=== PATIENT | female | born 1955 | race Caucasian/White ===

== ENCOUNTER 2020-09-06 14:03 | Outpatient (REF) | payer MEDICARE, BC, SELFPAY ==
--- NOTE | 2020-09-06 | MM_ITS ---
EXAMINATION: MM SCREENING DIGITAL BREAST TOMOSYNTHESIS, BILATERAL CLINICAL INFORMATION: Screening. Asymptomatic. The lifetime risk of breast cancer based on the Tyrer-Cuzick Model is 6%. COMPARISON: Mammography: 03/10/2019, 12/17/2016 TECHNIQUE: Digital breast tomosynthesis is performed in both the craniocaudal and mediolateral oblique views along with computer-aided detection (CAD). Synthesized 2D images are generated from the tomosynthesis. FINDINGS: There are scattered areas of fibroglandular density (ACR BI-RADS breast composition Category b). There are no significant masses, abnormal calcifications, or other abnormalities. No developing density. No significant changes. MM/MM tomosynthesis screening BI IMPRESSION: No mammographic evidence of malignancy. ASSESSMENT: BI-RADS 1: Negative RECOMMENDATION: Routine annual mammography screening. This patient's information was entered into a reminder system with a target due date for their next mammogram.
== END 2020-09-06 14:04 | disposition home or self-care (01) ==
LOC: HO.MAMMO 14:03
PROVIDERS: PCP Internal Medicine; Visit Provider Internal Medicine
DX: Z12.31 Encounter for screening mammogram for malignant neoplasm of breast (principal)
CPT/HCPCS: 77063; 77067

== ENCOUNTER 2020-11-06 13:55 | Outpatient (REF) | payer MEDICARE, BC, SELFPAY ==
--- NOTE | 2020-11-06 13:58 | CT_ITS ---
EXAMINATION: CT CHEST SCREENING CLINICAL INFORMATION: Nicotine dependence. COMPARISON: CT chest screening 11/10/2019 TECHNIQUE: Multidetector volumetric CT imaging of the chest is performed without contrast using low dose technique. Additional 2D coronal and sagittal reformatted images and axial 3D maximum intensity projection (MIP) images are generated on the CT workstation. This CT examination was performed using dose optimization techniques as appropriate, variously including the following: *Automated exposure control *Adjustment of mA and/or kV according to patient size (this includes techniques or standardized protocols for targeted exams where dose is matched to indication/reason for exam; i.e. extremities or head) *Use of iterative reconstruction technique DLP: 61 mGy-cm FINDINGS: LUNGS: The lungs are well expanded and clear of acute pneumonic process. There are 2 new ill-defined nodules measuring 6 mm and 7 mm in the lingula on axial image 58/10. No additional nodules seen. MEDIASTINUM: Thyroid lobes are symmetrical. The central trachea and the bronchi widely patent. The heart size and the great vessels are normal caliber. There are coronary artery catheterizations present. No pericardial effusion seen. PLEURA: There is no pleural effusion. No pleural mass or thickening. AXILLA: No lymphadenopathy. UPPER ABDOMEN: Visualized liver, spleen, pancreas and bilateral adrenal glands are unremarkable. No radiopaque gallstones seen. OSSEOUS STRUCTURES: There is mild spondylosis mid and lower dorsal spine. No lytic or sclerotic process seen. CT/CT lung screening IMPRESSION: New 2 nodules in the lingula are worrisome. ASSESSMENT: Lung-RADS category 3: Probably Benign RECOMMENDATION: Six-month low-dose CT chest.
== END 2020-11-06 13:56 | disposition home or self-care (01) ==
LOC: HO.CT 13:55
PROVIDERS: Visit Provider Physician Assistant Medical
DX: Z12.2 Encounter for screening for malignant neoplasm of respiratory organs (principal); Z87.891 Personal history of nicotine dependence
CPT/HCPCS: 71271

== ENCOUNTER → 2020-11-13 14:34 | Outpatient (BNVA) | payer MEDICARE, BC, SELFPAY | PROVIDERS: PCP Internal Medicine; Visit Provider Internal Medicine ==

== ENCOUNTER 2020-11-13 15:26 | Outpatient (REF) | payer MEDICARE, BC, SELFPAY ==
--- NOTE | 2020-11-13 17:19 | PFT_ITS ---
INDICATION: COPD. SPIROMETRY: FEV1 to FVC is 68% with an FEV1 of 2.03 L which is 80% predicted, an FVC of 2.97 L which is 88% predicted. There was a significant response to bronchodilators noted to note the [id number] is down to 40% predicted consistent with small airways disease. Maximum voluntary ventilation 91% predicted. LUNG VOLUMES: Total lung capacity 100% predicted with residual volume 170% predicted and expiratory reserve volume of 46% predicted. The diffusion capacity is 44% predicted. The comparisons, none. INTERPRETATION: There is an obstructive ventilatory defect consistent with mild chronic obstructive pulmonary disease. The patient did have a significant response to bronchodilators noted and also had significant small airways disease. Lung volumes within normal limits, although a decrease in the expiratory reserve volume likely from elevated BMI. There is a moderately to severe diffusion impairment likely from emphysematous changes and/or the parenchymal lung conditions and/or pulmonary vascular conditions should also be considered. Clinical correlation is warranted. MD MARISELA Brown/MODL / [id number]
== END 2020-11-13 15:27 | disposition home or self-care (01) ==
LOC: HO.RESP 15:26
PROVIDERS: PCP Internal Medicine; Visit Provider Internal Medicine
DX: J44.9 Chronic obstructive pulmonary disease, unspecified (principal)
CPT/HCPCS: 94060; 94727; 94729; 99212

== ENCOUNTER → 2020-12-12 15:37 | Outpatient (BNVA) | payer MEDICARE, BC, SELFPAY | PROVIDERS: PCP Internal Medicine; Visit Provider Internal Medicine | DX: J44.9 Chronic obstructive pulmonary disease, unspecified (principal); R06.00 Dyspnea, unspecified; I77.9 Disorder of arteries and arterioles, unspecified; R91.8 Other nonspecific abnormal finding of lung field | CPT/HCPCS: 99212 ==

== ENCOUNTER 2020-12-20 14:28 | Outpatient (REF) | payer MEDICARE, BC, SELFPAY ==
--- NOTE | ~2020-12-20 | US_ITS ---
EXAMINATION: ULTRASOUND LOWER EXTREMITY DUPLEX ARTERIAL EXAMINATION, BILATERAL CLINICAL INFORMATION: Peripheral vascular disease. COMPARISON: Bilateral lower extremities arterial ultrasound imaging of 06/22/2020 TECHNIQUE: Grayscale, color and spectral Doppler imaging was obtained of the deep arterial system of both lower extremities. FINDINGS: Right lower extremity: The right common femoral artery and proximal superficial femoral artery are patent and demonstrate normal velocities and multiphasic waveforms. Patient right superficial femoral artery stent which demonstrates multiphasic waveforms. There is slightly increased elevation of the proximal anastomosis with velocities of 202 cm/s. The right popliteal artery and posterior tibial artery demonstrate normal velocities and multiphasic waveforms consistent with patency. The right peroneal artery is patent but demonstrate monophasic waveforms suggesting peripheral vascular disease. Left lower extremity: The left common femoral artery and superficial femoral artery proximally are patent and demonstrate normal velocities and multiphasic waveforms. Left superficial femoral artery stent is patent although there is slightly elevated velocities within the distal aspect of the stent suggesting a possible stenosis. The left popliteal artery and posterior tibial artery are patent although may demonstrate monophasic waveforms consistent with peripheral vascular disease. The left peroneal artery is also patent but demonstrate monophasic waveforms. Of note a cardiac arrhythmia was noted intermittently during the examination. Before the examination could be completed, the patient suffered a hypoxic episode and was transported to the emergency room. US/US arterial duplex LE BI IMPRESSION: 1. Patent deep arterial system of the right lower extremity, including the superficial femoral artery stent. A mild stenosis within the proximal stent anastomosis is possible. 2. Patent deep arterial system of the left lower extremity, including the superficial femoral artery stent. Slightly elevated velocities in the distal aspect of the stent suggests possible stenosis. There are monophasic waveforms distal to the stent which further suggests an in-stent stenosis. 3. Cardiac arrhythmia was noted during the examination.
== END 2020-12-20 14:29 | disposition home or self-care (01) ==
LOC: HO.US 14:28
PROVIDERS: Visit Provider Surgery Vascular Surgery
DX: I73.9 Peripheral vascular disease, unspecified (principal)
CPT/HCPCS: 93925

== ENCOUNTER 2020-12-20 16:42 | Inpatient (IN) | payer MEDICARE, BC, SELFPAY ==
--- NOTE | ~2020-12-20 | CT_ITS ---
EXAMINATION: CT ANGIOGRAM OF THE CHEST WITH AND WITHOUT CONTRAST (CT PULMONARY ANGIOGRAM FOR PE) CLINICAL INFORMATION: Reason for Exam SOB COMPARISON: CT chest 11/06/2020, 11/10/2019 TECHNIQUE: Prior to contrast administration, noncontrast localization images were obtained. Subsequently, multidetector volumetric imaging was performed from the thoracic inlet to below the diaphragms following the administration of 54 mL Omnipaque 350 intravenous contrast. No contrast reaction reported Sagittal, coronal, and MIP oblique sagittal reformatted images were obtained on the CT workstation, uploaded to PACS, and reviewed. This CT examination was performed using dose optimization techniques as appropriate, variously including the following: *Automated exposure control *Adjustment of mA and/or kV according to patient size (this includes techniques or standardized protocols for targeted exams where dose is matched to indication/reason for exam; i.e. extremities or head) *Use of iterative reconstruction technique Total exam dose-length product 504 mGy-cm FINDINGS: QUALITY OF STUDY/CONTRAST BOLUS: Satisfactory. PULMONARY ARTERIES: No central or segmental pulmonary emboli. THORACIC AORTA: No aneurysm or dissection. There are scattered vascular wall calcifications of aorta. LUNG: No acute airways disease. No interstitial lung disease. The central bronchial airways are open. Linear scar/atelectasis in the lingula. Lung nodules. On the CAT scan of 11/06/2020 2 new nodules were noted in the left upper lobe. These measured 6 mm and 7 mm. On today's study only one of the 2 lesions is now present. This is less distinct on today's exam. This measures 7 x 3 mm on axial image 192/569 series 7. This however is a flat linear density sagittal image 24/97 series 9. (Rather than a rounded masslike density). There are no new lung nodules. PLEURA: There are moderate volume bilateral pleural effusions layering dependently. MEDIASTINUM: Normal heart size. No pericardial effusion. No hilar or mediastinal lymphadenopathy. No evidence of septal bowing or right heart strain. CHEST WALL/AXILLA: No axillary or internal mammary lymphadenopathy. OSSEOUS STRUCTURES: No acute or suspicious osseous abnormality. There is multilevel degenerative spondylosis of the spine. UPPER ABDOMEN: Status post Cholecystectomy.. No abnormality visualized portions of the solid organs in the upper abdomen. No reflux of contrast into the hepatic veins to suggest elevated right heart pressures. CT/CT angio chest PE protocol IMPRESSION: 1. No evidence of pulmonary embolism. 2. Bilateral pleural effusions. 3. Regression of previously noted nodules in left upper lobe since prior CAT scan 11/06/2010. VTE: negative
--- NOTE | ~2020-12-20 | XR_ITS ---
EXAMINATION: XR CHEST CLINICAL INFORMATION: SOB COMPARISON: CT dated 11/10/2019 TECHNIQUE: Frontal view of the chest was obtained. FINDINGS: Cardiac leads overlie the chest. Lungs are hyperexpanded. There is central bronchial wall thickening bilaterally. No consolidation, pneumothorax, or pleural effusion. Cardiac and mediastinal contours are normal. No acute osseous findings. XR/XR chest 1V IMPRESSION: Bronchial wall thickening can be seen with a small airways process such as asthma or atypical/viral infection.
--- NOTE | 2020-12-20 08:19 | ECG_ITS ---
Test Reason : REPEAT Blood Pressure : / mmHG Vent. Rate : 083 BPM Atrial Rate : 083 BPM P-R Int : 168 ms QRS Dur : 086 ms QT Int : 430 ms P-R-T Axes : 032 015 135 degrees QTc Int : 505 ms Normal sinus rhythm Possible Inferior infarct (cited on or before 20-DEC-2020) ST & T wave abnormality, consider lateral ischemia Abnormal ECG When compared with ECG of 20-DEC-2020 19:36, T wave inversion less evident in Lateral leads Referred By: Leonid Abdullahi Electronically Signed By:MADDIE ARIAS MD
[2020-12-20 16:47] VITALS: BP 225/131; PULSE 126; RESP 16; TEMP 36.7; O2SAT 86; BMI 31.4
[2020-12-20 16:54] VITALS: BP 188/141; PULSE 114; RESP 16; O2SAT 93
--- NOTE | 2020-12-20 16:55 | ECG_ITS ---
Test Reason : SHORTNESS OF BREATH Blood Pressure : / mmHG Vent. Rate : 071 BPM Atrial Rate : 071 BPM P-R Int : 152 ms QRS Dur : 090 ms QT Int : 424 ms P-R-T Axes : 032 009 148 degrees QTc Int : 460 ms Normal sinus rhythm Possible Inferior infarct , age undetermined ST & T wave abnormality, consider lateral ischemia Abnormal ECG When compared with ECG of 30-OCT-2018 13:55, Premature atrial complexes are no longer Present Borderline criteria for Inferior infarct are now Present Referred By: Leonid Abdullahi Electronically Signed By:MADDIE ARIAS MD
[2020-12-20 17:24] LABS: MANUAL DIFF FLAG NO
[2020-12-20 17:29] LABS: PCO2 VBG 44 mmHg; PO2 VBG 69 mmHg; pH VBG 7.22 (7.32-7.43)
[2020-12-20 17:30] LABS: Base Excess VBG -8.9 mmol/L; HCO3 VBG 18 mmol/L
[2020-12-20 17:32] LABS: INTERNATIONAL NORM RATIO 1.1 (0.9-1.1); Prothrombin Time 13.4 SEC (10.8-13.0)
[2020-12-20 17:35] LABS: Basophils Absolute Auto 0.1 X10*3/uL (0.0-0.2); Basophils Percent Auto 1.2 % (0-2); D Dimer 364 NG/ML; Eosinophils Absolute Auto 0.1 X10*3/uL (0.0-0.4); Eosinophils Percent Auto 1.5 % (0-4); Hematocrit 37.4 % (37-47); Hemoglobin 11.4 g/dl (12.0-16.0); Imm Gran Abs Auto 0.01 X10*3/uL (0.00-0.03); Imm Gran Pct Auto 0.2 % (0.0-0.4); Lymphocytes Absolute Auto 1.8 X10*3/uL (1.2-4.9); Lymphocytes Percent Auto 30.6 % (20-40); Mean Corpuscular HGB Conc 30.5 g/dl (31.0-35.0); Mean Corpuscular Volume 85.4 fL (80-98); Mean Platelet Volume 9.8 fL (9.4-12.3); Monocytes Absolute Auto 0.4 X10*3/uL (0.1-1.2); Neutrophils Absolute Auto 3.6 X10*3/uL (2.0-8.3); Neutrophils Percent Auto 60.5 % (45-73); Platelet Count 278 X10*3/uL (160-400); Red Blood Count 4.38 X10*6/uL (4.20-5.50); Red Cell Distribution Width 14.8 % (11.0-16.0)
[2020-12-20 17:56] VITALS: BP 175/88; PULSE 79; RESP 15; O2SAT 97
[2020-12-20 17:58] LABS: Alanine Aminotransferase 12 U/L (0-31); Albumin Level 3.8 g/dL (3.5-5.0); Alkaline Phosphatase 110 U/L (39-117); Anion Gap 20 (12-20); Aspartate Amino Transferase 15 U/L (5-31); Bilirubin Total 0.7 mg/dL (0.0-1.0); Blood Urea Nitrogen 18 mg/dL (9-16); C Reactive Protein 0.61 mg/dL (< or = 0.50); Calcium 8.9 mg/dL (8.4-10.2); Carbon Dioxide 18 mmol/L (22-29); Chloride 105 mmol/L (96-108); Estimated Glomerular Filt Rate 48; Glucose Random 225 mg/dL (60-115); Lactate Dehydrogenase 224 U/L (122-220); Potassium 4.7 mmol/L (3.3-5.1); Sodium 138 mmol/L (135-145); Total Protein 6.5 g/dL (6.5-8.0)
[2020-12-20 18:11] LABS: Lactic Acid 6.1 mmol/L (0.5-2.0)
[2020-12-20 18:19] LABS: Ferritin 49 ng/mL (10-250); Procalcitonin 0.03 ng/mL
[2020-12-20] MEDS: Albuterol Sulfate 90 MCG 8 GM INHALER 4 PUFF INHALE (18:26)
[2020-12-20 18:27] VITALS: PULSE 74; O2SAT 97
[2020-12-20 18:47] LABS: Influenza A PCR NEGATIVE (Negative); Influenza B PCR NEGATIVE (Negative); Resp Syncy Virus RNA Qual PCR NEGATIVE (Negative); SARS COV2 PCR INHOUSE NEGATIVE (Negative)
[2020-12-20 18:58] VITALS: BP 151/86; PULSE 71; RESP 18
[2020-12-20 19:22] LABS: Reflex Lactate? Lactic Acid Added
[2020-12-20] MEDS: SODIUM CHLORIDE 999 ML IV (19:29)
[2020-12-20] MEDS: iohexoL 350 MG/ML 100 ML INFUS..BTL IV (20:25)
--- NOTE | 2020-12-20 21:12 | ED_ITS ---
HPI - SOB/Dyspnea General Chief Complaint: Dyspnea Stated Complaint: sob Time Seen by Provider: 12/20/20 16:49 Source: patient Mode of arrival: wheelchair History of Present Illness HPI Narrative: This is a 63-year-old female with history of chronic obstructive pulmonary disease has chronic dyspnea on exertion according to EMR, multiple sc lerosis, hypertension, acid reflux disease, stress incontinence, peripheral artery disease status post right SFA, TN status post stenting in 2019 and history of pulmonary nodules who presents from our Outpatient Radiology Department as a rapid response for shortness of breath. Apparently patient was having lower extremity arterial studies done on outpatient basis. She reports that she was laying down and this cars 3rd to become shortness of breath. She otherwise reports she has been using more of her inhalers at home but does not use any oxygen. MD elicited complaint: shortness of breath Pertinent past history: COPD Onset (ago): minute(s) Timing: constant Severity: severe Exacerbating factors: lying flat Relieving factors: nothing Known history of: COPD Associated symptoms: orthopnea Treatment prior to arrival: oxygen Related Data Home Medications Medication Instructions Recorded Confirmed dalfampridine 10 mg mg PO 10/03/20 10/06/20 tablet,extended release,12 hr interferon beta-1a 30 mcg/0.5 mL IM 10/03/20 10/06/20 intramuscular pen kit oxybutynin chloride 5 mg tablet 5 mg PO BID 10/03/20 10/06/20 paroxetine HCl 40 mg tablet 40 mg PO DAILY 10/03/20 10/06/20 Previous Rx's Medication Instructions Recorded metoprolol succinate 50 mg 50 mg PO DAILY #90 tab 08/31/20 tablet,extended release 24 hr aspirin 81 mg tablet,delayed 81 mg PO DAILY #90 tab 11/01/20 release omeprazole 20 mg capsule,delayed 20 mg PO QAM #30 cap 11/01/20 release budesonide-formoterol HFA 160 2 puff INHALATION BID 30 Days 11/13/20 mcg-4.5 mcg/actuation aerosol #10.2 g inhaler cilostazol 50 mg tablet 50 mg PO BID #180 tab 11/19/20 atorvastatin 80 mg tablet 80 mg PO DAILY #90 tab 11/22/20 Allergies Allergy/AdvReac Type Severity Reaction Status Date / Time codeine [Codeine] Allergy Mild vomiting Verified 12/12/20 15:59 Review of Systems Review of Systems: Constitutional: No Weight loss, No Fever, No Chills, No Night Sweats, No Fatigue, No Malaise ENT/Mouth: No Hearing loss, No Ear Pain, No Nasal Congestion, No Sinus Pain, No Hoarseness, No sore throat, No Rhinorrhea, No Swallowing Difficulty Eyes: No Eye Pain, No Swelling, No Redness, No Foreign Body, No Discharge, No Vision Changes Cardiovascular: No Chest Pain, + SOB, + Dyspnea on Exertion, No Edema, No Palpitations Respiratory: No Cough, No Sputum, + Wheezing Gastrointestinal: No Nausea, No Vomiting, No Diarrhea, No Constipation, No abdominal Pain, No Hematochezia, No Melena Genitourinary:No Dysuria, No Urinary Frequency, No Hematuria, No Urinary Incontinence, No Urgency, No Flank Pain, No Urinary Flow Changes, No Hesitancy Musculoskeletal: No joint pain, No Myalgias, No Joint Swelling Skin: No Skin Lesions, No rash Neuro: No Weakness, No Numbness, No Paresthesias, No Loss of Consciousness, No Dizziness, No Headache Psych: No Social Issues Heme/Lymph: No Bruising, No Bleeding,No Lymphadenopathy Endocrine: No Polyuria, No Polydipsia, No Temperature Intolerance Yes all other systems are reviewed and are negative [facility] Past Medical History Medical History (Updated 12/20/20 @ 22:00 by Leonid Abdullahi NP) COPD (chronic obstructive pulmonary disease) Dyspnea on effort Peripheral arterial occlusive disease Pulmonary nodules Surgical History History of orthopedic surgery Family History Family History Father No problems noted. Mother No problems noted. Sister Diabetes Brother Diabetes Social History Social History Alcohol intake: never Smoking Status: Former smoker Use of substances other than those prescribed or required for medical reasons: No Advance Directives: No Advance Directives Information Provided: Yes Physical Exam Vital Signs: Vital Signs: Last Vital Signs Temp 98.0 F 12/20/20 16:47 Pulse 71 12/20/20 18:58 Resp 18 12/20/20 18:58 BP 151/86 H 12/20/20 18:58 Pulse Ox 97 12/20/20 17:56 Body Mass Index 31.4 Reviewed Const: General: in distress moderate and respiratory Nutritional Appearance: average body habitus Orientation/consciousness: patient oriented x3 HENMT: Head: Yes normal to inspection Ears: hearing grossly normal bilaterally Eyes: General: appearance normal, both eyes and all related structures Visual Santos: normal visual santos by confrontation Neck: Neck: Yes normal visual inspection, No positive Brudzinski's sign, No positive Kernig's sign and No tender Thyroid: Thyroid normal Chest: Chest palpation & inspection: normal inspection of the chest Resp: Effort & Inspection: respiratory distress, tachypneic and no use of accessory muscles Auscultation: clear to auscultation bilaterally Cardio: Jugular venous distension: no JVD Rhythm: regular rhythm Heart sounds: S1 normal heart sound present and S2 normal heart sound present GI: Inspection: Yes normal to inspection Palpation (GI): Soft to palpation Percussion: Yes normal to percussion Auscultation: normal bowel sounds : General: Yes no CVA tenderness Back/Spine/Pelvis: Back: no CVA tenderness Skin: General skin exam: no rashes or lesions noted Neuro: General: patient oriented x3 Extrem: General: Yes normal to inspection NIH Stroke Scale Internal: Initial- Upon Arrival Level of Consciousness: Alert Level of Consciousness Questions: Answers both questions correctly Level of Consciousness Commands: Performs both tasks correctly Best Gaze: Normal Visual: No visual loss Facial Palsy: Normal Motor Arm (Right): No drift Motor Arm (Left): No drift Motor Leg (Right): No drift Motor Leg (Left): No drift Limb Ataxia: Absent Sensory: Normal Best Language: No aphasia Dysarthia: Normal Extinction and Inattention: No abnormality Score: 0 Course Course Course Narrative: Clinically in respiratory distress hypoxic upon arrival, dry appearing more consistent with her respiratory history/COPD. Will treat with nebs, gradual fluids and Solu-Medrol. Will check imaging including cardiac enzymes EKG and COVID-19. Reevaluation(s) Reevaluation #1: Clinically appearing much better her blood pressure improved significantly after initial neb and some fluids. She reports she feels better however when she does exert herself she feels short of breath. Her D-dimer is slightly elevated will get CT of the chest rule out PE. Initial troponin 17 will repeat at 3 hours. She does have significant lactic acidosis of 6.1 on the initial this is likely type B from the albuterol and not infection. Will consult cardiology p.r.n.. Anticipated plan for admission. Consultations Consultation #1: Cardiology Dr. Kraus Consultation #2: [id number] Hospitalist Case discussed with Dr. Weston prior to admission request BNP Aware I will heading out will put in Lasix if needed. MDM - SOB/Dyspnea Differential Diagnosis Differential diagnosis: Likely acute exacerbation of chronic obstructive airways disease, congestive heart failure (Flash pulmonary edema less likely), pneumoni a, asthma with exacerbation, pulmonary embolism and pleural effusion; Unlikely sleep apnea and anemia Medical Records Attestation: I reviewed the patient's medical records. Lab Data Attestation: I reviewed the patient's lab results. Result diagrams: 12/20/20 17:12 12/20/20 17:12 Labs: Lab Results 12/20/20 12/20/20 12/20/20 Range/Units 17:12 17:12 17:12 WBC 6.0 (4.8-10.8) X10*3/uL RBC 4.38 (4.20-5.50) X10*6/uL Hgb 11.4 L (12.0-16.0) g/dl Hct 37.4 (37-47) % MCV 85.4 (80-98) fL MCH 26.0 L (27.0-33.0) pg MCHC 30.5 L (31.0-35.0) g/dl RDW 14.8 (11.0-16.0) % Plt Count 278 (160-400) X10*3/uL MPV 9.8 (9.4-12.3) fL Immature Gran % (Auto) 0.2 (0.0-0.4) % Neut % (Auto) 60.5 (45-73) % Lymph % (Auto) 30.6 (20-40) % Logan % (Auto) 6.0 (2-11) % Eos % (Auto) 1.5 (0-4) % Baso % (Auto) 1.2 (0-2) % Lymph # (Auto) 1.8 (1.2-4.9) X10*3/uL Logan # (Auto) 0.4 (0.1-1.2) X10*3/uL Eos # (Auto) 0.1 (0.0-0.4) X10*3/uL Baso # (Auto) 0.1 (0.0-0.2) X10*3/uL Abs Immat Gran (auto) 0.01 (0.00-0.03) X10*3/uL Absolute Neuts (auto) 3.6 (2.0-8.3) X10*3/uL Absolute Nucleated RBC 0.000 (0.0-0.012) X10*3/uL Nucleated RBC % (auto) 0.0 (0.0-0.2) /100WBC PT 13.4 H (10.8-13.0) SEC INR 1.1 (0.9-1.1) APTT 31.0 (24.1-38.0) SEC D-Dimer 364 NG/ML VBG pH (7.32-7.43) VBG pCO2 mmHg VBG pO2 mmHg VBG HCO3 mmol/L VBG O2 Saturation % VBG Base Excess mmol/L Sodium 138 (135-145) mmol/L Potassium 4.7 (3.3-5.1) mmol/L Chloride 105 (96-108) mmol/L Carbon Dioxide 18 L (22-29) mmol/L Anion Gap 20 (12-20) BUN 18 H (9-16) mg/dL Creatinine 1.13 (0.5-1.4) mg/dL Estim Creat Clear Calc 54.0 Estimated GFR 48 Random Glucose 225 H (60-115) mg/dL Lactic Acid (0.5-2.0) mmol/L Lactic Acid Fup @ 2Hr (0.5-2.0) mmol/L Calcium 8.9 (8.4-10.2) mg/dL Ferritin 49 (10-250) ng/mL Total Bilirubin 0.7 (0.0-1.0) mg/dL AST 15 (5-31) U/L ALT 12 (0-31) U/L Alkaline Phosphatase 110 (39-117) U/L Lactate Dehydrogenase 224 H (122-220) U/L Troponin I High Sens (<3.5-17.0) ng/L C-Reactive Protein 0.61 H (< or = 0.50) mg/dL Total Protein 6.5 (6.5-8.0) g/dL Albumin 3.8 (3.5-5.0) g/dL Procalcitonin ng/mL Coronavirus (PCR) (Negative) Influenza Type A (PCR) (Negative) Influenza Type B (PCR) (Negative) RSV RNA Qual (PCR) (Negative) 12/20/20 12/20/20 12/20/20 Range/Units 17:12 17:12 17:12 WBC (4.8-10.8) X10*3/uL RBC (4.20-5.50) X10*6/uL Hgb (12.0-16.0) g/dl Hct (37-47) % MCV (80-98) fL MCH (27.0-33.0) pg MCHC (31.0-35.0) g/dl RDW (11.0-16.0) % Plt Count (160-400) X10*3/uL MPV (9.4-12.3) fL Immature Gran % (Auto) (0.0-0.4) % Neut % (Auto) (45-73) % Lymph % (Auto) (20-40) % Logan % (Auto) (2-11) % Eos % (Auto) (0-4) % Baso % (Auto) (0-2) % Lymph # (Auto) (1.2-4.9) X10*3/uL Logan # (Auto) (0.1-1.2) X10*3/uL Eos # (Auto) (0.0-0.4) X10*3/uL Baso # (Auto) (0.0-0.2) X10*3/uL Abs Immat Gran (auto) (0.00-0.03) X10*3/uL Absolute Neuts (auto) (2.0-8.3) X10*3/uL Absolute Nucleated RBC (0.0-0.012) X10*3/uL Nucleated RBC % (auto) (0.0-0.2) /100WBC PT (10.8-13.0) SEC INR (0.9-1.1) APTT (24.1-38.0) SEC D-Dimer NG/ML VBG pH (7.32-7.43) VBG pCO2 mmHg VBG pO2 mmHg VBG HCO3 mmol/L VBG O2 Saturation % VBG Base Excess mmol/L Sodium (135-145) mmol/L Potassium (3.3-5.1) mmol/L Chloride (96-108) mmol/L Carbon Dioxide (22-29) mmol/L Anion Gap (12-20) BUN (9-16) mg/dL Creatinine (0.5-1.4) mg/dL Estim Creat Clear Calc Estimated GFR Random Glucose (60-115) mg/dL Lactic Acid (0.5-2.0) mmol/L Lactic Acid Fup @ 2Hr (0.5-2.0) mmol/L Calcium (8.4-10.2) mg/dL Ferritin Cancelled (10-250) ng/mL Total Bilirubin (0.0-1.0) mg/dL AST (5-31) U/L ALT (0-31) U/L Alkaline Phosphatase (39-117) U/L Lactate Dehydrogenase (122-220) U/L Troponin I High Sens 17.0 (<3.5-17.0) ng/L C-Reactive Protein (< or = 0.50) mg/dL Total Protein (6.5-8.0) g/dL Albumin (3.5-5.0) g/dL Procalcitonin 0.03 ng/mL Coronavirus (PCR) (Negative) Influenza Type A (PCR) (Negative) Influenza Type B (PCR) (Negative) RSV RNA Qual (PCR) (Negative) 12/20/20 12/20/20 12/20/20 Range/Units 17:12 17:12 17:19 WBC (4.8-10.8) X10*3/uL RBC (4.20-5.50) X10*6/uL Hgb (12.0-16.0) g/dl Hct (37-47) % MCV (80-98) fL MCH (27.0-33.0) pg MCHC (31.0-35.0) g/dl RDW (11.0-16.0) % Plt Count (160-400) X10*3/uL MPV (9.4-12.3) fL Immature Gran % (Auto) (0.0-0.4) % Neut % (Auto) (45-73) % Lymph % (Auto) (20-40) % Logan % (Auto) (2-11) % Eos % (Auto) (0-4) % Baso % (Auto) (0-2) % Lymph # (Auto) (1.2-4.9) X10*3/uL Logan # (Auto) (0.1-1.2) X10*3/uL Eos # (Auto) (0.0-0.4) X10*3/uL Baso # (Auto) (0.0-0.2) X10*3/uL Abs Immat Gran (auto) (0.00-0.03) X10*3/uL Absolute Neuts (auto) (2.0-8.3) X10*3/uL Absolute Nucleated RBC (0.0-0.012) X10*3/uL Nucleated RBC % (auto) (0.0-0.2) /100WBC PT (10.8-13.0) SEC INR (0.9-1.1) APTT (24.1-38.0) SEC D-Dimer NG/ML VBG pH 7.22 L (7.32-7.43) VBG pCO2 44 mmHg VBG pO2 69 mmHg VBG HCO3 18 mmol/L VBG O2 Saturation 87.0 % VBG Base Excess -8.9 mmol/L Sodium (135-145) mmol/L Potassium (3.3-5.1) mmol/L Chloride (96-108) mmol/L Carbon Dioxide (22-29) mmol/L Anion Gap (12-20) BUN (9-16) mg/dL Creatinine (0.5-1.4) mg/dL Estim Creat Clear Calc Estimated GFR Random Glucose (60-115) mg/dL Lactic Acid 6.1 H* (0.5-2.0) mmol/L Lactic Acid Fup @ 2Hr (0.5-2.0) mmol/L Calcium (8.4-10.2) mg/dL Ferritin (10-250) ng/mL Total Bilirubin (0.0-1.0) mg/dL AST (5-31) U/L ALT (0-31) U/L Alkaline Phosphatase (39-117) U/L Lactate Dehydrogenase (122-220) U/L Troponin I High Sens (<3.5-17.0) ng/L C-Reactive Protein (< or = 0.50) mg/dL Total Protein (6.5-8.0) g/dL Albumin (3.5-5.0) g/dL Procalcitonin ng/mL Coronavirus (PCR) NEGATIVE (Negative) Influenza Type A (PCR) NEGATIVE (Negative) Influenza Type B (PCR) NEGATIVE (Negative) RSV RNA Qual (PCR) NEGATIVE (Negative) 12/20/20 12/20/20 Range/Units 20:40 20:40 WBC (4.8-10.8) X10*3/uL RBC (4.20-5.50) X10*6/uL Hgb (12.0-16.0) g/dl Hct (37-47) % MCV (80-98) fL MCH (27.0-33.0) pg MCHC (31.0-35.0) g/dl RDW (11.0-16.0) % Plt Count (160-400) X10*3/uL MPV (9.4-12.3) fL Immature Gran % (Auto) (0.0-0.4) % Neut % (Auto) (45-73) % Lymph % (Auto) (20-40) % Logan % (Auto) (2-11) % Eos % (Auto) (0-4) % Baso % (Auto) (0-2) % Lymph # (Auto) (1.2-4.9) X10*3/uL Logan # (Auto) (0.1-1.2) X10*3/uL Eos # (Auto) (0.0-0.4) X10*3/uL Baso # (Auto) (0.0-0.2) X10*3/uL Abs Immat Gran (auto) (0.00-0.03) X10*3/uL Absolute Neuts (auto) (2.0-8.3) X10*3/uL Absolute Nucleated RBC (0.0-0.012) X10*3/uL Nucleated RBC % (auto) (0.0-0.2) /100WBC PT (10.8-13.0) SEC INR (0.9-1.1) APTT (24.1-38.0) SEC D-Dimer NG/ML VBG pH (7.32-7.43) VBG pCO2 mmHg VBG pO2 mmHg VBG HCO3 mmol/L VBG O2 Saturation % VBG Base Excess mmol/L Sodium (135-145) mmol/L Potassium (3.3-5.1) mmol/L Chloride (96-108) mmol/L Carbon Dioxide (22-29) mmol/L Anion Gap (12-20) BUN (9-16) mg/dL Creatinine (0.5-1.4) mg/dL Estim Creat Clear Calc Estimated GFR Random Glucose (60-115) mg/dL Lactic Acid (0.5-2.0) mmol/L Lactic Acid Fup @ 2Hr 1.6 (0.5-2.0) mmol/L Calcium (8.4-10.2) mg/dL Ferritin (10-250) ng/mL Total Bilirubin (0.0-1.0) mg/dL AST (5-31) U/L ALT (0-31) U/L Alkaline Phosphatase (39-117) U/L Lactate Dehydrogenase (122-220) U/L Troponin I High Sens 50.3 H D (<3.5-17.0) ng/L C-Reactive Protein (< or = 0.50) mg/dL Total Protein (6.5-8.0) g/dL Albumin (3.5-5.0) g/dL Procalcitonin ng/mL Coronavirus (PCR) (Negative) Influenza Type A (PCR) (Negative) Influenza Type B (PCR) (Negative) RSV RNA Qual (PCR) (Negative) Imaging Data CTA PE chest : Radiologist's impression: [address] [id number] Scan ReportSigned Patient: Nai Garcia [facility]#: [id number]: 1955cct:[id number]/Sex: 65 / FADM Date: 12/20/20Loc: Joy Fritz: Ordering Physician: Leonid Abdullahi NP Date of Service: 12/20/20 Procedure(s): CT angio chest PE protocol Accession Number(s): [id number] cc: Leonid Abdullahi SAFETY ENGINEER~ EXAMINATION: CT ANGIOGRAM OF THE CHEST WITH AND WITHOUT CONTRAST (CT PULMONARY ANGIOGRAM FOR PE) CLINICAL INFORMATION: Reason for Exam SOB COMPARISON: CT chest 11/06/2020, 11/10/2019 TECHNIQUE: Prior to contrast administration, noncontrast localization images were obtained. Subsequently, multidetector volumetric imaging was performed from the thoracic inlet to below the diaphragms following the administration of 54 mL Omnipaque 350 intravenous contrast. No contrast reaction reported Sagittal, coronal, and MIP oblique sagittal reformatted images were obtained on the CT workstation, uploaded to PACS, and reviewed. This CT examination was performed using dose optimization techniques as appropriate, variously including the following: *Automated exposure control *Adjustment of mA and/or kV according to patient size (this includes techniques or standardized protocols for targeted exams where dose is matched to indication/reason for exam; i.e. extremities or head) *Use of iterative reconstruction technique Total exam dose-length product 504 mGy-cm FINDINGS: QUALITY OF STUDY/CONTRAST BOLUS: Satisfactory. PULMONARY ARTERIES: No central or segmental pulmonary emboli. THORACIC AORTA: No aneurysm or dissection. There are scattered vascular wall calcifications of aorta. LUNG: No acute airways disease. No interstitial lung disease. The central bronchial airways are open. Linear scar/atelectasis in the lingula. Lung nodules. On the CAT scan of 11/06/2020 2 new nodules were noted in the left upper lobe. These measured 6 mm and 7 mm. On today's study only one of the 2 lesions is now present. This is less distinct on today's exam. This measures 7 x 3 mm on axial image 192/569 series 7. This however is a flat linear density sagittal image 24/97 series 9. (Rather than a rounded masslike density). There are no new lung nodules. PLEURA: There are moderate volume bilateral pleural effusions layering dependently. MEDIASTINUM: Normal heart size. No pericardial effusion. No hilar or mediastinal lymphadenopathy. No evidence of septal bowing or right heart strain. CHEST WALL/AXILLA: No axillary or internal mammary lymphadenopathy. OSSEOUS STRUCTURES: No acute or suspicious osseous abnormality. There is multilevel degenerative spondylosis of the spine. UPPER ABDOMEN: Status post Cholecystectomy.. No abnormality visualized portions of the solid organs in the upper abdomen. No reflux of contrast into the hepatic veins to suggest elevated right heart pressures. CT/CT angio chest PE protocol IMPRESSION: 1. No evidence of pulmonary embolism. 2. Bilateral pleural effusions. 3. Regression of previously noted nodules in left upper lobe since prior CAT scan 11/06/2010. VTE: negative Dictated By:VI GALDAMEZ MDSigned By:<Electronically signed by VI GALDAMEZ MD in OV>12/20/202099 DD/ TD/TT: Construction Project Administrator: JUAN ECG Data Interpretation: Normal sinus rhythm Possible Inferior infarct , age undetermined ST & T wave abnormality, consider lateral ischemia Abnormal ECG When compared with ECG of 30-OCT-2018 13:55, Premature atrial complexes are no longer Present Borderline criteria for Inferior infarct are now Present Discharge Plan Discharge Clinical Impression: COPD (chronic obstructive pulmonary disease) Patient Disposition: Admitted As Inpatient Prescriptions: No Action metoprolol succinate 50 mg tablet extended release 24 hr 50 mg PO DAILY Qty: 90 RF: 1 omeprazole 20 mg capsule,delayed release(DR/EC) 20 mg PO QAM Qty: 30 RF: 1 aspirin 81 mg tablet,delayed release (DR/EC) 81 mg PO DAILY Qty: 90 RF: 0 cilostazol 50 mg tablet 50 mg PO BID Qty: 180 RF: 1 atorvastatin 80 mg tablet 80 mg PO DAILY Qty: 90 RF: 1 paroxetine HCl 40 mg tablet 40 mg PO DAILY RF: 0 dalfampridine 10 mg tablet extended release 12 hr PO RF: 0 oxybutynin chloride 5 mg tablet 5 mg PO BID RF: 0 Avonex 30 mcg/0.5 mL pen injector kit IM RF: 0 budesonide-formoterol 160-4.5 mcg/actuation HFA aerosol inhaler 2 puff inhalation BID 30 Days Qty: 10.2 RF: 3
[2020-12-20 21:22] LABS: ~Lactic Acid-LAB USE ONLY 1.6 mmol/L (0.5-2.0)
[2020-12-20 21:37] LABS: Troponin-I High Sensitivity 50.3 ng/L (<3.5-17.0)
[2020-12-20 22:16] LABS: B Type Natriuretic Peptide 1956 pg/mL (<100)
--- NOTE | 2020-12-20 22:18 | P.HPHOSP_ITS ---
History of Present Illness Date of Service: 12/20/20 Chief Complaint: Shortness of breath 65-year-old female with past medical history of MS, HTN, copd, stress incontinence, PAD, CAD status post stents x2 who presents to the hospital with complaints of shortness of breath. Patient reports that she has been having progressively worsening shortness of breath over the past month. Today she went to have a scheduled ultrasound of her lower extremities done for Dr. Marcelo, and when laying on the ultrasound bed she became significantly hypoxic and a code was called on her due to this significant hypoxia and was transferred to the ED. patient reports progressive orthopnea, progressive PND. She reports that she h as such difficulty breathing with even moving from her bedroom to her bathroom which is only few steps away. She has significantly limited her activity due to the shortness of breath, she is waking up in the middle the night short of breath. She has also noticed swelling in her legs but she uses compression stockings. She otherwise denies any chest pain, no palpitations, no headache or change in vision, no abdominal pain diarrhea or constipation, no urinary symptoms and no lower extremity edema. To the ED found to be hypoxic with O2 level of 86% on room air. Currently on 2 L satting 93% blood pressure was also 225/131 that has now improved to 1 50/86 with no intervention by the ED specifically for blood pressure Labs are labs on arrival are significant for WBC count of 6, hemoglobin of 11.4, pH of 7.22 with a CO2 of 44 and a PO2 69, sodium of 138, HCO2 of 18, BUN of 18, creatinine of 1.13, lactic acid of 6.1 which is improved to 1.6 after patient received 2.6 L of O2 in the ED. initial high sensitivity troponin of 17 increase to 50.3, BNP of 19 56. Urine negative, COVID-19 negative, Chest CT angiograms negative for PE, but shows bilateral pleural effusion, Review of Systems Review of Systems: Yes all other systems are reviewed and are negative [facility] Medical History (Updated 12/21/20 @ 06:01 by Ibis Weston MD) CAD (coronary artery disease) COPD (chronic obstructive pulmonary disease) Dyspnea on effort Hypertension Multiple sclerosis Peripheral arterial occlusive disease Pulmonary nodules Family History Father No problems noted. Mother No problems noted. Sister Diabetes Brother Diabetes Surgical History History of cholecystectomy History of orthopedic surgery Social History Household Members: None Housing: House Do you presently have visiting nurse or other home services: No Alcohol intake: never Smoking Status: Former smoker Smoked in Last 30 Days: No Patient Interested in Nicotine Replacement: No Patient Given Instructions on How to Stop Smoking: No Second Hand Smoke Exposure: No Use of substances other than those prescribed or required for medical reasons: No Have you been hit, kicked, punched, or otherwise hurt by someone within the past year? If so, by whom?: No Do you feel safe in your current relationship?: No Current Relationship Are you made to feel afraid or neglected: No Advance Directives: No Advance Directives Information Provided: Yes Do you have thoughts of harming others: None Do you have a plan to hurt others: No Plan Recently lost weight without trying: No Meds Allergies Allergy/AdvReac Type Severity Reaction Status Date / Time codeine [Codeine] Allergy Mild vomiting Verified 12/12/20 15:59 Active Medications: Current Medications Generic Name Dose Route Start Last Admin Trade Name Ketanq PRN Reason Stop Dose Admin Pharmacy Consult 1 each 12/20/20 21:45 Consult Rx Perform Med Rec MISCELLANE ONCE JOSE Home Medications Medication Instructions Recorded Confirmed Last Taken Type dalfampridine 10 mg 10 mg PO BID 10/03/20 12/20/20 12/20/20 History tablet,extended release,12 hr interferon beta-1a 30 mcg/0.5 mL 30 mcg IM Q7D 10/03/20 12/20/20 Unknown History intramuscular pen kit oxybutynin chloride 5 mg tablet 5 mg PO BID 10/03/20 12/20/20 12/20/20 History paroxetine HCl 40 mg tablet 40 mg PO DAILY 10/03/20 12/20/20 12/20/20 History cholecalciferol (vitamin D3) 25 mcg PO DAILY 12/20/20 12/20/20 12/20/20 History [Vitamin D3] cyanocobalamin (vitamin B-12) 1,000 mcg PO DAILY 12/20/20 12/20/20 12/20/20 H istory [Vitamin B-12] omeprazole 20 mg PO DAILY@0630 12/20/20 12/20/20 12/20/20 History Physical Exam Vital Signs and Narrative: Vital Signs: Last Vital Signs Temp 98.0 F 12/20/20 16:47 Pulse 71 12/20/20 18:58 Resp 18 12/20/20 18:58 BP 151/86 H 12/20/20 18:58 Pulse Ox 97 12/20/20 17:56 Body Mass Index 31.4 Const: General: cooperative and no acute distress Orientation/ consciousness: patient oriented x3 Eyes: General: appearance normal, both eyes and all related structures Resp: Effort & Inspection: normal respiratory effort and able to speak in complete sentences Cardio: Rate: regular rate Rhythm: regular rhythm GI: Palpation (GI): Soft to palpation Auscultation: normal bowel sounds Skin: General skin exam: no rashes or lesions noted Neuro: General: patient oriented x3 Cognition (Neuro): normal cognition Extrem: Other: 2+ edema in the ankles General: Yes normal to inspection Results Labs CBC and Chem 7: 12/20/20 17:12 12/20/20 17:12 Labs: Laboratory Results - last 24 hr 12/20/20 12/20/20 12/20/20 17:12 17:12 17:12 MCV 85.4 MCH 26.0 L MCHC 30.5 L RDW 14.8 Plt Count 278 MPV 9.8 Immature Gran % (Auto) 0.2 Neut % (Auto) 60.5 Lymph % (Auto) 30.6 Young % (Auto) 6.0 Eos % (Auto) 1.5 Baso % (Auto) 1.2 Lymph # (Auto) 1.8 Young # (Auto) 0.4 Eos # (Auto) 0.1 Baso # (Auto) 0.1 Abs Immat Gran (auto) 0.01 Absolute Neuts (auto) 3.6 Absolute Nucleated RBC 0.000 Nucleated RBC % (auto) 0.0 PT 13.4 H INR 1.1 APTT 31.0 D-Dimer 364 VBG pH VBG pCO2 VBG pO2 VBG HCO3 VBG O2 Saturation VBG Base Excess Anion Gap 20 Estim Creat Clear Calc 54.0 Estimated GFR 48 Random Glucose 225 H Lactic Acid Lactic Acid Fup @ 2Hr Calcium 8.9 Ferritin 49 Total Bilirubin 0.7 AST 15 ALT 12 Alkaline Phosphatase 110 Lactate Dehydrogenase 224 H Troponin I High Sens C-Reactive Protein 0.61 H B-Natriuretic Peptide Total Protein 6.5 Albumin 3.8 Procalcitonin Coronavirus (PCR) Influenza Type A (PCR) Influenza Type B (PCR) RSV RNA Qual (PCR) 12/20/20 12/20/20 12/20/20 17:12 17:12 17:12 MCV MCH MCHC RDW Plt Count MPV Immature Gran % (Auto) Neut % (Auto) Lymph % (Auto) Young % (Auto) Eos % (Auto) Baso % (Auto) Lymph # (Auto) Young # (Auto) Eos # (Auto) Baso # (Auto) Abs Immat Gran (auto) Absolute Neuts (auto) Absolute Nucleated RBC Nucleated RBC % (auto) PT INR APTT D-Dimer VBG pH VBG pCO2 VBG pO2 VBG HCO3 VBG O2 Saturation VBG Base Excess Anion Gap Estim Creat Clear Calc Estimated GFR Random Glucose Lactic Acid Lactic Acid Fup @ 2Hr Calcium Ferritin Cancelled Total Bilirubin AST ALT Alkaline Phosphatase Lactate Dehydrogenase Troponin I High Sens 17.0 C-Reactive Protein B-Natriuretic Peptide Total Protein Albumin Procalcitonin 0.03 Coronavirus (PCR) Influenza Type A (PCR) Influenza Type B (PCR) RSV RNA Qual (PCR) 12/20/20 12/20/20 12/20/20 17:12 17:12 17:19 MCV MCH MCHC RDW Plt Count MPV Immature Gran % (Auto) Neut % (Auto) Lymph % (Auto) Young % (Auto) Eos % (Auto) Baso % (Auto) Lymph # (Auto) Young # (Auto) Eos # (Auto) Baso # (Auto) Abs Immat Gran (auto) Absolute Neuts (auto) Absolute Nucleated RBC Nucleated RBC % (auto) PT INR APTT D-Dimer VBG pH 7.22 L VBG pCO2 44 VBG pO2 69 VBG HCO3 18 VBG O2 Saturation 87.0 VBG Base Excess -8.9 Anion Gap Estim Creat Clear Calc Estimated GFR Random Glucose Lactic Acid 6.1 H* Lactic Acid Fup @ 2Hr Calcium Ferritin Total Bilirubin AST ALT Alkaline Phosphatase Lactate Dehydrogenase Troponin I High Sens C-Reactive Protein B-Natriuretic Peptide Total Protein Albumin Procalcitonin Coronavirus (PCR) NEGATIVE Influenza Type A (PCR) NEGATIVE Influenza Type B (PCR) NEGATIVE RSV RNA Qual (PCR) NEGATIVE 12/20/20 12/20/20 20:40 20:40 MCV MCH MCHC RDW Plt Count MPV Immature Gran % (Auto) Neut % (Auto) Lymph % (Auto) Young % (Auto) Eos % (Auto) Baso % (Auto) Lymph # (Auto) Young # (Auto) Eos # (Auto) Baso # (Auto) Abs Immat Gran (auto) Absolute Neuts (auto) Absolute Nucleated RBC Nucleated RBC % (auto) PT INR APTT D-Dimer VBG pH VBG pCO2 VBG pO2 VBG HCO3 VBG O2 Saturation VBG Base Excess Anion Gap Estim Creat Clear Calc Estimated GFR Random Glucose Lactic Acid Lactic Acid Fup @ 2Hr 1.6 Calcium Ferritin Total Bilirubin AST ALT Alkaline Phosphatase Lactate Dehydrogenase Troponin I High Sens 50.3 H D C-Reactive Protein B-Natriuretic Peptide 1956 H Total Protein Albumin Procalcitonin Coronavirus (PCR) Influenza Type A (PCR) Influenza Type B (PCR) RSV RNA Qual (PCR) Imaging Radiologist's Impressions: Impressions Chest X-Ray 12/20/20 16:55 IMPRESSION: Bronchial wall thickening can be seen with a small airways process such as asthma or atypical/viral infection. Chest CTA 12/20/20 18:48 IMPRESSION: 1. No evidence of pulmonary embolism. 2. Bilateral pleural effusions. 3. Regression of previously noted nodules in left upper lobe since prior CAT scan 11/06/2010. VTE: negative Assessment and Plan (1) Acute exacerbation of CHF (congestive heart failure): Status: Acute (2) Acute and chronic respiratory failure with hypoxia: Status: Acute (3) Elevated troponin: Status: Acute (4) Hypertensive crisis: Status: Acute This is a 65-year-old female with past medical history as mentioned above who presents to the hospital with progressive dyspnea found to have what most likely appears to be CHF # acute hypoxic respiratory failure - most likely acute CHF exacerbation in the setting of elevated BNP, CT signific ant for bilateral pleural effusion, as well as lower extremity edema - PE less likely, pneumonia less likely, COPD less likely in the setting of no cough, no sputum production, no wheezing - patient had an echo done in 2019 which showed impaired relaxation pattern with an ejection fraction of 60-65 % Plan: - will treat her for CHF exacerbation with Lasix IV 40 b.i.d. - echocardiogram - strict I&O, daily weight, low-sodium diet - Hou insertion for fluid management - cardiology consult to # CHF exacerbation - possibly worsened due to flash pulmonary edema given the blood pressure at presentation was 220/130 - patient reports symptoms for the past 30 days worsening. PND, orthopnea, lower extremity swelling. - she does not use any diuretic at baseline Plan: - as above # elevated troponin - most likely type 2 - denies any chest pain, no EKG changes - monitor for any symptom # hypertensive crisis - for him reported she was very anxious and scared when she could not breathe during the ultrasound - possibly driven by that because it resolved spontaneously without any intervention - will resume her home medications # COPD - not in exacerbation - continue home inhalers # MS - no acute flare DVT prophylaxis: Heparin subQ
[2020-12-20] MEDS: Furosemide 40 MG/4 ML VIAL IVPUSH (23:49)
[2020-12-21] VITALS (13 sets, daily range): BP systolic 111–160; BP diastolic 63–85; PULSE 58–98; RESP 16–22; TEMP 35.9–36.6; O2SAT 97–100; BMI 31.0
[2020-12-21 00:52] LABS: Glucose Urine UA NEG (NEG); Leukocyte Esterase Urine NEG (NEG); Nitrite Urine NEG (NEG); Urine Blood NEG (NEG); Urine Ketones NEG (NEG); Urine Protein NEG (NEG-TRACE)
[2020-12-21 00:55] LABS: Appearance Urine CLEAR; Color Urine YELLOW
[2020-12-21 01:04] LABS: Bacteria Urine 1+ /LPF; Granular Casts Urine 0-2 /LPF; Hyaline Casts Urine 0-2 /LPF; Mucus Urine 1+ /LPF; Squamous Epithelial Cell Urine 1+ /LPF
[2020-12-21] MEDS: 0.9 % Sodium Chloride Flush 3 ML SYRINGE IVFLUSH ×5 (01:16→20:41)
[2020-12-21 06:17] LABS: MANUAL DIFF FLAG NO
[2020-12-21] MEDS: Omeprazole 20 MG CAPSULE.DR PO (06:36)
[2020-12-21 06:56] LABS: Basophils Percent Auto 0.7 % (0-2); Hematocrit 32.2 % (37-47); Imm Gran Abs Auto 0.01 X10*3/uL (0.00-0.03); Imm Gran Pct Auto 0.2 % (0.0-0.4); Lymphocytes Absolute Auto 1.3 X10*3/uL (1.2-4.9); Lymphocytes Percent Auto 21.1 % (20-40); Mean Corpuscular HGB Conc 31.1 g/dl (31.0-35.0); Mean Corpuscular Hemoglobin 25.9 pg (27.0-33.0); Mean Corpuscular Volume 83.4 fL (80-98); Mean Platelet Volume 10.5 fL (9.4-12.3); Monocytes Absolute Auto 0.6 X10*3/uL (0.1-1.2); Monocytes Percent Auto 10.4 % (2-11); Neutrophils Absolute Auto 4.1 X10*3/uL (2.0-8.3); Neutrophils Percent Auto 67.6 % (45-73); Platelet Count 232 X10*3/uL (160-400); Red Blood Count 3.86 X10*6/uL (4.20-5.50); Red Cell Distribution Width 15.1 % (11.0-16.0); White Blood Count 6.1 X10*3/uL (4.8-10.8)
[2020-12-21 07:00] LABS: Anion Gap 14 (12-20); Blood Urea Nitrogen 20 mg/dL (9-16); Calcium 8.7 mg/dL (8.4-10.2); Carbon Dioxide 25 mmol/L (22-29); Chloride 109 mmol/L (96-108); Creatinine Clr Calc Pharmacy 57.2; Estimated Glomerular Filt Rate 52; Glucose Random 83 mg/dL (60-115); Potassium 4.8 mmol/L (3.3-5.1); Sodium 143 mmol/L (135-145)
[2020-12-21] MEDS: Fluticasone/Vilanterol 200/25 BLST.W.DEV 1 PUFF INHALE ×2 (08:08→20:08)
--- NOTE | 2020-12-21 08:53 | MHC.CM.PN ---
PATIENT LIVES ALONE. SHE HAS A 4 PRONG CANE AND A WALKER IN THE HOME, WHICH SHE RARELY FEELS THE NEED FOR. NO [facility] SERVICES. SHE IS INDEPENDENT WITH TRANSPORTATION. PCP IS DR JUAREZ OF [address] [place] [address] AND UPDATE MADE IN QUICK TASK OF [employer]. PATIENT UNDERSTANDS THAT SHE IS ADMITTED INPATIENT STATUS, AND IMM COPY 12/21 IN CHART. CASE MANAGEMENT FOLLOWING FOR ANY DISCHARGE NEEDS. HCP ON FIULE AND VERIFED. WITNESS DATE WRITTEN INCORRECTLY, BUT THE PATIENT'S SIGNATURE IS DATED APPROPRIATELY
--- NOTE | 2020-12-21 09:46 | P.CONCA_ITS ---
History of Present Illness History of Present Illness Date of Service: 12/21/20 Requesting physician: Jermaine Love Consult reason: congestive heart failure and troponin elevation Chief complaint: HYPOXIC RESPIRATORY FAILURE, CHF EXACERBATION Narrative: Thank you for calling us on consult on Nai. She was last seen in our office in September 2019, no followup since then. She usually sees Dr. Lizama for her cardiology care. She presented to the hospital after coming for an outpatient vascular study, while laying down on the table she got suddenly short of breath and urgent care activation was held and then she was transferred to the emergency room. She was noted to be hypoxic with stent improved with oxygen supplementation. With all the anxiety her blood pressure short up in to 230 systolic range. She was seen in the emergency room, initial troponin was indeterminate but subsequent troponin was more than 50% elevated. She was admitted for observation. However she also noted to have markedly elevated BNP and findings consistent with heart failure. She remains hypertensive. She also says that she still short of breath at rest and with minimal movement in the bed. She denies any chest discomfort. However she says that over the last few months she has been experiencing increasing and progressive shortness of breath. She thinks the symptoms are similar to the symptoms that she had prior to her stenting. She had prior circumflex stenting and then subsequently ostial RCA stenting in August 2019 with significant improvement in her symptoms. She says the symptoms have now started worsening again. She also has noticed over the last few days some anahy ankle swelling. She has also noticed shortness of breath at rest and when she lays down suggestive of orthopnea. However she says over the last year due to the pandemic she has become mostly homebound. She denies any palpitations, lightheadedness, syncope. No apparent weight gain. No other systemic symptoms. Review of Systems Constitutional: Constitutional: Reports no additional constitutional complaints Cardiovascular: Cardiovascular: Denies chest pain, Reports pedal edema, Denies irregular heart rhythm, Denies lightheadedness, Denies palpitations, Reports dyspnea, Reports dyspnea on exertion and Reports orthopnea Respiratory: Respiratory: Denies cough, Denies excessive phlegm production, Reports dyspnea and Reports dyspnea on exertion Gastrointestinal: Gastrointestinal: Reports no additional gastrointestinal complaints Genitourinary: Genitourinary: Reports no additional female genitourinary complaints Musculoskeletal: Musculoskeletal: Reports no additional musculoskeletal complaints Neurologic: Reports system reviewed and no additional complaints, except as documented Psychiatric: Psychiatric: Reports no additional psychiatric complaints Endocrine: Endocrine: Denies palpitations PMFSH Past Medical History Medical History (Updated 12/21/20 @ 09:54 by Braulio Kraus MD) CAD (coronary artery disease) COPD (chronic obstructive pulmonary disease) Dyspnea on effort Hypertension Multiple sclerosis Peripheral arterial occlusive disease Pulmonary nodules Family History Family History Father No problems noted. Mother No problems noted. Sister Diabetes Brother Diabetes Surgical History Surgical History History of cholecystectomy History of orthopedic surgery Social History Social History Household Members: None Housing: House Do you presently have visiting nurse or other home services: No Alcohol intake: never Smoking Status: Former smoker Smoked in Last 30 Days: No Patient Interested in Nicotine Replacement: No Patient Given Instructions on How to Stop Smoking: No Second Hand Smoke Exposure: No Use of substances other than those prescribed or required for medical reasons: No Have you been hit, kicked, punched, or otherwise hurt by someone within the past year? If so, by whom?: No Do you feel safe in your current relationship?: No Current Relationship Are you made to feel afraid or neglected: No Advance Directives: No Advance Directives Information Provided: Yes Do you have thoughts of harming others: None Do you have a plan to hurt others: No Plan Recently lost weight without trying: No service: No Current occupational status: retired [employer] Allergies Allergy/AdvReac Type Severity Reaction Status Date / Time codeine [Codeine] Allergy Mild vomiting Verified 12/12/20 15:59 Active Medications: Current Medications Generic Name Dose Route Start Last Admin Trade Name Freq PRN Reason Stop Dose Admin Acetaminophen 650 mg 12/20/20 22:40 Acetaminophen 325 Mg Tablet PO Q6H PRN Pain, Mild (Pain Scale 1-3) Aspirin 81 mg 12/21/20 09:00 Aspirin Enteric Coated 81 Mg Tablet. PO DAILY [facility] Atorvastatin Calcium 80 mg 12/21/20 09:00 Atorvastatin Calcium 80 Mg Tablet PO DAILY [facility] Cilostazol 50 mg 12/21/20 09:00 Cilostazol 50 Mg Tablet PO BID [facility] Cyanocobalamin 1,000 mcg 12/21/20 09:00 Cyanocobalamin (Vitamin B-12) 1,000 Mcg Tablet PO DAILY [facility] Docusate Sodium 100 mg 12/20/20 22:40 Docusate Sodium 100 Mg Capsule PO DAILY PRN Constipation Fluticasone/Vilanterol 1 puff 12/21/20 08:00 12/21/20 08:08 Fluticasone/Vilanterol 200/25 Blst.W.Dev INHALE 1 puff RBID [facility] Administration Furosemide 40 mg 12/20/20 22:40 12/20/20 23:49 Furosemide 40 Mg/4 Ml Vial IVPUSH 40 mg BID@0900,1800 [facility] Administration Protocol Heparin Sodium (Porcine) 5,000 unit 12/20/20 22:40 12/20/20 23:49 Heparin Sodium,Porcine 5,000 Unit/Ml Vial SUBCUT Not Given Q12H [facility] Metoprolol Succinate 50 mg 12/21/20 09:00 Metoprolol Succinate Er 50 Mg Tab.Er.24h PO DAILY [facility] Protocol Non-Formulary Medication 10 mg 12/21/20 09:00 Dalfampridine PO BID [facility] Non-Formulary Medication 30 mcg 12/20/20 22:40 Interferon Beta-1a [Avonex] IM Q7D [facility] Omeprazole 20 mg 12/21/20 06:30 12/21/20 06:36 Omeprazole 20 Mg Capsule.Dr PO 20 mg DAILY@0630 [facility] Administration Ondansetron HCl 4 mg 12/20/20 22:40 Ondansetron Hcl 4 Mg/2 Ml Vial IVPUSH Q8H PRN Nausea and Vomiting Paroxetine HCl 40 mg 12/21/20 09:00 Paroxetine Hcl 40 Mg Tablet PO DAILY [facility] Pharmacy Consult 1 each 12/20/20 21:45 Consult Rx Perform Med Rec MISCELLANE ONCE [facility] Sodium Chloride 3 ml 12/21/20 00:00 12/21/20 01:16 0.9 % Sodium Chloride Flush 3 Ml Syringe IVFLUSH 3 ml QSHIFT [facility] Administration Vitamin D 25 mcg 12/21/20 09:00 Cholecalciferol (Vitamin D3) 25 Mcg Tablet PO DAILY [facility] Home Medications Medication Instructions Recorded Confirmed Last Taken Type dalfampridine 10 mg 10 mg PO BID 10/03/20 12/20/20 12/20/20 History tablet,extended release,12 hr interferon beta-1a 30 mcg/0.5 mL 30 mcg IM Q7D 10/03/20 12/20/20 Unknown History intramuscular pen kit oxybutynin chloride 5 mg tablet 5 mg PO BID 10/03/20 12/20/20 12/20/20 History paroxetine HCl 40 mg tablet 40 mg PO DAILY 10/03/20 12/20/20 12/20/20 History cholecalciferol (vitamin D3) 25 mcg PO DAILY 12/20/20 12/20/20 12/20/20 History [Vitamin D3] cyanocobalamin (vitamin B-12) 1,000 mcg PO DAILY 12/20/20 12/20/20 12/20/20 History [Vitamin B-12] omeprazole 20 mg PO DAILY@0630 12/20/20 12/20/20 12/20/20 History Physical Exam Vital Signs: Vital Signs: Last Vital Signs Temp 96.7 F L 12/21/20 07:11 Pulse 71 12/21/20 07:11 Resp 18 12/21/20 07:11 BP 160/79 H 12/21/20 07:11 Pulse Ox 100 12/21/20 07:11 Body Mass Index 31.0 Const: General: cooperative, comfortable, acute distress moderate and respiratory and anxious Nutritional Appearance: obese Orientation/consciousness: patient oriented x3 HENMT: Head: Yes normocephalic and Yes atraumatic Neck: Neck: Yes trachea midline, Yes supple and Yes no JVD Chest: Chest palpation & inspection: normal inspection of the chest Resp: Effort & Inspection: decreased respiratory effort Auscultation: rales bilateral at the base Cardio: Jugular venous distension: no JVD Palpation: normal PMI Rate: regular rate Rhythm: regular rhythm Heart sounds: S1 normal heart sound present and S2 normal heart sound present GI: Auscultation: normal bowel sounds Skin: General skin exam: no rashes or lesions noted Neuro: General: patient oriented x3 and no focal motor deficits Extrem: General: No clubbing, No cyanosis and Yes edema Psych: Appearance: grossly normal Affect: Anxious affect present Results Labs and Meds Result diagrams: 12/21/20 05:48 12/21/20 05:48 Lab results: Laboratory Results - last 24 hr 12/20/20 12/20/20 12/20/20 17:12 17:12 17:12 WBC 6.0 RBC 4.38 Hgb 11.4 L Hct 37.4 MCV 85.4 MCH 26.0 L MCHC 30.5 L RDW 14.8 Plt Count 278 MPV 9.8 Immature Gran % (Auto) 0.2 Neut % (Auto) 60.5 Lymph % (Auto) 30.6 Holmes % (Auto) 6.0 Eos % (Auto) 1.5 Baso % (Auto) 1.2 Lymph # (Auto) 1.8 Holmes # (Auto) 0.4 Eos # (Auto) 0.1 Baso # (Auto) 0.1 Abs Immat Gran (auto) 0.01 Absolute Neuts (auto) 3.6 Absolute Nucleated RBC 0.000 Nucleated RBC % (auto) 0.0 PT 13.4 H INR 1.1 APTT 31.0 D-Dimer 364 VBG pH VBG pCO2 VBG pO2 VBG HCO3 VBG O2 Saturation VBG Base Excess Sodium 138 Potassium 4.7 Chloride 105 Carbon Dioxide 18 L Anion Gap 20 BUN 18 H Creatinine 1.13 Estim Creat Clear Calc 54.0 Estimated GFR 48 Random Glucose 225 H Lactic Acid Lactic Acid Fup @ 2Hr Calcium 8.9 Ferritin 49 Total Bilirubin 0.7 AST 15 ALT 12 Alkaline Phosphatase 110 Lactate Dehydrogenase 224 H Troponin I High Sens C-Reactive Protein 0.61 H B-Natriuretic Peptide Total Protein 6.5 Albumin 3.8 Procalcitonin Urine Color Urine Appearance Urine pH Ur Specific [place] Urine Protein Urine Glucose (UA) Urine Ketones Urine Blood Urine Nitrite Ur Leukocyte Esterase Urine RBC Urine WBC Ur Squamous Epith Cells Urine Bacteria Hyaline Casts Granular Casts Urine Mucus Coronavirus (PCR) Influenza Type A (PCR) Influenza Type B (PCR) RSV RNA Qual (PCR) 12/20/20 12/20/20 12/20/20 17:12 17:12 17:12 WBC RBC Hgb Hct MCV MCH MCHC RDW Plt Count MPV Immature Gran % (Auto) Neut % (Auto) Lymph % (Auto) Holmes % (Auto) Eos % (Auto) Baso % (Auto) Lymph # (Auto) Holmes # (Auto) Eos # (Auto) Baso # (Auto) Abs Immat Gran (auto) Absolute Neuts (auto) Absolute Nucleated RBC Nucleated RBC % (auto) PT INR APTT D-Dimer VBG pH VBG pCO2 VBG pO2 VBG HCO3 VBG O2 Saturation VBG Base Excess Sodium Potassium Chloride Carbon Dioxide Anion Gap BUN Creatinine Estim Creat Clear Calc Estimated GFR Random Glucose Lactic Acid Lactic Acid Fup @ 2Hr Calcium Ferritin Cancelled Total Bilirubin AST ALT Alkaline Phosphatase Lactate Dehydrogenase Troponin I High Sens 17.0 C-Reactive Protein B-Natriuretic Peptide Total Protein Albumin Procalcitonin 0.03 Urine Color Urine Appearance Urine pH Ur Specific [place] Urine Protein Urine Glucose (UA) Urine Ketones Urine Blood Urine Nitrite Ur Leukocyte Esterase Urine RBC Urine WBC Ur Squamous Epith Cells Urine Bacteria Hyaline Casts Granular Casts Urine Mucus Coronavirus (PCR) Influenza Type A (PCR) Influenza Type B (PCR) RSV RNA Qual (PCR) 12/20/20 12/20/20 12/20/20 17:12 17:12 17:19 WBC RBC Hgb Hct MCV MCH MCHC RDW Plt Count MPV Immature Gran % (Auto) Neut % (Auto) Lymph % (Auto) Holmes % (Auto) Eos % (Auto) Baso % (Auto) Lymph # (Auto) Holmes # (Auto) Eos # (Auto) Baso # (Auto) Abs Immat Gran (auto) Absolute Neuts (auto) Absolute Nucleated RBC Nucleated RBC % (auto) PT INR APTT D-Dimer VBG pH 7.22 L VBG pCO2 44 VBG pO2 69 VBG HCO3 18 VBG O2 Saturation 87.0 VBG Base Excess -8.9 Sodium Potassium Chloride Carbon Dioxide Anion Gap BUN Creatinine Estim Creat Clear Calc Estimated GFR Random Glucose Lactic Acid 6.1 H* Lactic Acid Fup @ 2Hr Calcium Ferritin Total Bilirubin AST ALT Alkaline Phosphatase Lactate Dehydrogenase Troponin I High Sens C-Reactive Protein B-Natriuretic Peptide Total Protein Albumin Procalcitonin Urine Color Urine Appearance Urine pH Ur Specific [place] Urine Protein Urine Glucose (UA) Urine Ketones Urine Blood Urine Nitrite Ur Leukocyte Esterase Urine RBC Urine WBC Ur Squamous Epith Cells Urine Bacteria Hyaline Casts Granular Casts Urine Mucus Coronavirus (PCR) NEGATIVE Influenza Type A (PCR) NEGATIVE Influenza Type B (PCR) NEGATIVE RSV RNA Qual (PCR) NEGATIVE 12/20/20 12/20/20 12/21/20 20:40 20:40 00:42 WBC RBC Hgb Hct MCV MCH MCHC RDW Plt Count MPV Immature Gran % (Auto) Neut % (Auto) Lymph % (Auto) Holmes % (Auto) Eos % (Auto) Baso % (Auto) Lymph # (Auto) Holmes # (Auto) Eos # (Auto) Baso # (Auto) Abs Immat Gran (auto) Absolute Neuts (auto) Absolute Nucleated RBC Nucleated RBC % (auto) PT INR APTT D-Dimer VBG pH VBG pCO2 VBG pO2 VBG HCO3 VBG O2 Saturation VBG Base Excess Sodium Potassium Chloride Carbon Dioxide Anion Gap BUN Creatinine Estim Creat Clear Calc Estimated GFR Random Glucose Lactic Acid Lactic Acid Fup @ 2Hr 1.6 Calcium Ferritin Total Bilirubin AST ALT Alkaline Phosphatase Lactate Dehydrogenase Troponin I High Sens 50.3 H D C-Reactive Protein B-Natriuretic Peptide 1956 H Total Protein Albumin Procalcitonin Urine Color YELLOW Urine Appearance CLEAR Urine pH 6.0 Ur Specific [place] 1.020 Urine Protein NEG Urine Glucose (UA) NEG Urine Ketones NEG Urine Blood NEG Urine Nitrite NEG Ur Leukocyte Esterase NEG Urine RBC 1-4 Urine WBC 1-4 Ur Squamous Epith Cells 1+ Urine Bacteria 1+ Hyaline Casts 0-2 Granular Casts 0-2 Urine Mucus 1+ Coronavirus (PCR) Influenza Type A (PCR) Influenza Type B (PCR) RSV RNA Qual (PCR) 12/21/20 12/21/20 05:48 05:48 WBC 6.1 RBC 3.86 L Hgb 10.0 L Hct 32.2 L MCV 83.4 MCH 25.9 L MCHC 31.1 RDW 15.1 Plt Count 232 MPV 10.5 Immature Gran % (Auto) 0.2 Neut % (Auto) 67.6 Lymph % (Auto) 21.1 Holmes % (Auto) 10.4 Eos % (Auto) 0.0 Baso % (Auto) 0.7 Lymph # (Auto) 1.3 Holmes # (Auto) 0.6 Eos # (Auto) 0.0 Baso # (Auto) 0.0 Abs Immat Gran (auto) 0.01 Absolute Neuts (auto) 4.1 Absolute Nucleated RBC 0.000 Nucleated RBC % (auto) 0.0 PT INR APTT D-Dimer VBG pH VBG pCO2 VBG pO2 VBG HCO3 VBG O2 Saturation VBG Base Excess Sodium 143 Potassium 4.8 Chloride 109 H Carbon Dioxide 25 Anion Gap 14 BUN 20 H Creatinine 1.06 Estim Creat Clear Calc 57.2 Estimated GFR 52 Random Glucose 83 D Lactic Acid Lactic Acid Fup @ 2Hr Calcium 8.7 Ferritin Total Bilirubin AST ALT Alkaline Phosphatase Lactate Dehydrogenase Troponin I High Sens C-Reactive Protein B-Natriuretic Peptide Total Protein Albumin Procalcitonin Urine Color Urine Appearance Urine pH Ur Specific [place] Urine Protein Urine Glucose (UA) Urine Ketones Urine Blood Urine Nitrite Ur Leukocyte Esterase Urine RBC Urine WBC Ur Squamous Epith Cells Urine Bacteria Hyaline Casts Granular Casts Urine Mucus Coronavirus (PCR) Influenza Type A (PCR) Influenza Type B (PCR) RSV RNA Qual (PCR) EKG reviewed by me shows normal sinus rhythm with diffuse mild ST sagging across the precordial leads as well as ST downsloping and T-wave inversion high lateral leads with may suggest repolarization abnormality versus ischemia. Imaging Radiologist's impression: Impressions Chest X-Ray 12/20/20 16:55 IMPRESSION: Bronchial wall thickening can be seen with a small airways process such as asthma or atypical/viral infection. Chest CTA 12/20/20 18:48 IMPRESSION: 1. No evidence of pulmonary embolism. 2. Bilateral pleural effusions. 3. Regression of previously noted nodules in left upper lobe since prior CAT scan 11/06/2010. VTE: negative Assessment and Plan (1) Acute and chronic respiratory failure with hypoxia: Status: Acute Acute hypoxic respiratory failure appears to be secondary to congestive heart failure. See below (2) Acute exacerbation of CHF (congestive heart failure): Status: Acute Acute decompensated congestive heart failure with no prior history. This appears to be gradually progressive over the last few months with progressive symptoms of shortness of breath and orthopnea. Clinically appears to still have rales in her lungs. Needs to be diuresed. Contributed by probably hypertensive crisis and underlying ischemic heart failure cannot be entirely ruled out given her prior history and progressive symptoms of shortness of breath which have been her anginal equivalent in the past. For now aggressively control her hypertension and treat her ischemia. Will start her on nitrate paste 1 in q.6 hours to target goal blood pressure less than 140/80. Continue metoprolol therapy. Continue IV diuresis. Strict I&Os. Continue to trend BMP and BNP. Echocardiogram is been performed will be reviewed shortly. Further treatment based on the findings. (3) CAD (coronary artery disease): Status: Acute Coronary artery disease with prior stenting of the RCA as well as circumflex artery with progressive symptoms of shortness of breath which could represent unstable angina or acute coronary syndrome. Her troponin had bumped but this could be secondary to hypertensive crisis. Advised to continue to trend troponin. Continue aspirin therapy. Advise IV heparin for now. Will eventually require ischemic workup prior to discharge either by invasive cardiac catheterization or myocardial perfusion imaging based on the findings of the echocardiogram and her clinical course. Continue high-intensity statin therapy. Continue aggressive control of blood pressure. Will follow the patient. Thank you for allowing me to partake in her care Procedures Date of Service Date of Service: 12/21/20
--- NOTE | 2020-12-21 10:04 | P.PNIM_ITS ---
Subjective Subjective Date of Service: 12/21/20 Interval History: Admitted 12/20 for acute respiratory failure with hypoxia Progressive GONZALEZ, leg edema over the past 1 month. Improvement with SOB at rest, still with GONZALEZ with minimal movement Review of Systems Review of Systems: Yes all other systems are reviewed and are negative Constitutional Constitutional: Denies chills and Denies fever(s) Cardiovascular Cardiovascular: Denies chest pain, Denies palpitations, Reports dyspnea on exertion and Reports orthopnea Respiratory Respiratory: Denies cough and Reports dyspnea on exertion Gastrointestinal Gastrointestinal: Denies abdominal pain Endocrine Endocrine: Denies palpitations Physical Exam Vital Signs: Vital Signs: Last Vital Signs Temp 96.7 F L 12/21/20 07:11 Pulse 71 12/21/20 07:11 Resp 18 12/21/20 07:11 BP 160/79 H 12/21/20 07:11 Pulse Ox 100 12/21/20 07:11 Body Mass Index 31.0 Const: Nutritional Appearance: well nourished Orientation/consciousness: patient oriented x3 HENMT: Head: Yes normocephalic and Yes atraumatic Eyes: Sclerae: sclerae normal Chest: Chest palpation & inspection: normal inspection of the chest Resp: Effort & Inspection: able to speak in complete sentences, decreased respiratory effort and no respiratory distress Auscultation: crackles, no wheezes and diminished lung sounds bilateral in the lower lung sutton Cardio: Rate: regular rate Rhythm: regular rhythm GI: Palpation (GI): Soft to palpation and nontender : Other: mahoney catheter present Skin: General skin exam: no rashes or lesions noted Neuro: General: patient oriented x3 Cranial nerves: Yes CN's II-XII intact bilaterally and Yes Bilaterally intact EOM present Extrem: Other: slight edema b/l LE General: Yes normal to inspection Objective Data Current Medications Generic Name Dose Route Start Last Admin Trade Name Freq PRN Reason Stop Dose Admin Acetaminophen 650 mg 12/20/20 22:40 Acetaminophen 325 Mg Tablet PO Q6H PRN Pain, Mild (Pain Scale 1-3) Aspirin 81 mg 12/21/20 09:00 Aspirin Enteric Coated 81 Mg Tablet. PO DAILY [facility] Atorvastatin Calcium 80 mg 12/21/20 09:00 Atorvastatin Calcium 80 Mg Tablet PO DAILY [facility] Cilostazol 50 mg 12/21/20 09:00 Cilostazol 50 Mg Tablet PO BID [facility] Cyanocobalamin 1,000 mcg 12/21/20 09:00 Cyanocobalamin (Vitamin B-12) 1,000 Mcg Tablet PO DAILY [facility] Docusate Sodium 100 mg 12/20/20 22:40 Docusate Sodium 100 Mg Capsule PO DAILY PRN Constipation Fluticasone/Vilanterol 1 puff 12/21/20 08:00 12/21/20 08:08 Fluticasone/Vilanterol 200/25 Blst.W.Dev INHALE 1 puff RBID [facility] Administration Furosemide 40 mg 12/20/20 22:40 12/20/20 23:49 Furosemide 40 Mg/4 Ml Vial IVPUSH 40 mg BID@0900,1800 [facility] Administration Protocol Heparin Sodium (Porcine) 5,000 unit 12/20/20 22:40 12/20/20 23:49 Heparin Sodium,Porcine 5,000 Unit/Ml Vial SUBCUT Not Given Q12H [facility] Metoprolol Succinate 50 mg 12/21/20 09:00 Metoprolol Succinate Er 50 Mg Tab.Er.24h PO DAILY [facility] Protocol Non-Formulary Medication 10 mg 12/21/20 09:00 Dalfampridine PO BID [facility] Non-Formulary Medication 30 mcg 12/20/20 22:40 Interferon Beta-1a [Avonex] IM Q7D [facility] Omeprazole 20 mg 12/21/20 06:30 12/21/20 06:36 Omeprazole 20 Mg Capsule.Dr PO 20 mg DAILY@0630 [facility] Administration Ondansetron HCl 4 mg 12/20/20 22:40 Ondansetron Hcl 4 Mg/2 Ml Vial IVPUSH Q8H PRN Nausea and Vomiting Paroxetine HCl 40 mg 12/21/20 09:00 Paroxetine Hcl 40 Mg Tablet PO DAILY [facility] Pharmacy Consult 1 each 12/20/20 21:45 Consult Rx Perform Med Rec MISCELLANE ONCE [facility] Sodium Chloride 3 ml 12/21/20 00:00 12/21/20 01:16 0.9 % Sodium Chloride Flush 3 Ml Syringe IVFLUSH 3 ml QSHIFT [facility] Administration Vitamin D 25 mcg 12/21/20 09:00 Cholecalciferol (Vitamin D3) 25 Mcg Tablet PO DAILY [facility] Labs CBC & Chem 7: 12/21/20 05:48 12/21/20 05:48 Assessment and Plan (1) CAD (coronary artery disease): Status: Acute (2) CHF (congestive heart failure): Status: Acute Assessment and Plan: This is a 65-year-old female with past medical history of CAD s/p stent, PVD s/p stents, COPD, MS who presents to the hospital with progressive dyspnea found to have uncontrolled HTN and hypoxia thought to be secondary to CHF acute hypoxic respiratory failure most likely r/t acute CHF. CTA neg for PE acute CHF exacerbation No h/o CHF - Continue Lasix IV 40 b.i.d. - echocardiogram results pending - strict I&O, daily weight, low-sodium diet - Mahoney insertion for fluid management - cardiology following - follow BNP - start nitro paste CAD s/p stents in 2019 Initial trop 17, increased to 50.3, third pending denies any chest pain but symptoms of dyspnea similar to previous prior to stenting -continue ASA, BB, statin -will start heparin drip per cardiology rec -will require ischemic workup -echo results pending Uncontrolled HTN -continue home metoprolol -nitro paste -goal BP 140/80 per cardiology COPD - not in exacerbation - continue home inhalers PVD continue ASA, pletal MS - no acute flare -dalfampridine NF Mood Continue paroxetine Gerd Continue omeprazole DVT ppx - This case was discussed with Dr. Love
--- NOTE | 2020-12-21 10:32 | P.CDIC_ITS ---
CDI Concurrent Query Service Date: 12/21/20 Documentation Clarification: Please clarify if you are treating a proba ble/suspected/likely or confirmed: Specifics: Acute diastolic and/or systolic Congestive heart failure Chronic diastolic and/or systolic Congestive heart failure Acute on chronic diastolic and/or systolic Congestive heart failure Please specify if known Acute diastolic and/or systolic Congestive heart failure Provider Response: Other Other Diagnosis: Acute diastolic and/or systolic Congestive heart failure PLEASE DO NOT DELETE/MODIFY EXISTING CONTENT Additional information is needed in order to code to the highest accuracy and appropriate Severity of Illness (SOI). Please clarify the information noted below in your progress notes and discharge summary. Risk Factors/Clinical Indicators/Treatments Acute Congestive heart failure, progressive dyspnea, found to have most likely CHF. BNP elevated 1955 IV Lasix PN: 2019 echo noted ejection fraction 60 - 65% I&O Daily weights Cardiology consult CDS: Roxi Jain CCS, CDIS Contact Number: [phone] Please Review the information above and exercise your independent professional judgment in responding to the query. If you concur, pleas document in the PROGRESS NOTES and DISCHARGE SUMMARY. If you do not agree with the query, ple ase document in the query above. THIS QUERY IS PART OF THE PERMANENT MEDICAL RECORD
[2020-12-21] MEDS: Furosemide 40 MG/4 ML VIAL IVPUSH ×2 (10:44→18:50)
[2020-12-21] MEDS: cilostazoL 50 MG TABLET PO ×2 (10:45→20:31)
[2020-12-21] MEDS: PARoxetine HCL 40 MG TABLET PO (10:45)
[2020-12-21] MEDS: Metoprolol Succinate ER 50 MG TAB.ER.24H PO (10:45)
[2020-12-21] MEDS: Cholecalciferol (Vitamin D3) 25 MCG TABLET PO (10:45)
[2020-12-21] MEDS: Aspirin Enteric Coated 81 MG TABLET.DR PO (10:45)
[2020-12-21] MEDS: Atorvastatin Calcium 80 MG TABLET PO (10:45)
[2020-12-21] MEDS: Cyanocobalamin (Vitamin B-12) 1,000 MCG TABLET 1000 MCG PO (10:45)
[2020-12-21 11:23] LABS: INTERNATIONAL NORM RATIO 1.2 (0.9-1.1); Prothrombin Time 14.8 SEC (10.8-13.0)
[2020-12-21 11:26] LABS: PTT Heparin Drip 31.8 SEC (53-77.9)
[2020-12-21 11:33] LABS: Troponin-I High Sensitivity 127.4 ng/L (<3.5-17.0)
--- NOTE | 2020-12-21 11:59 | MHC.CM.PN ---
PATIENT WILL BE HERE OVER THE WEEKEND. CURRENTLY AWAITING ISCHEMIC WORK UP AND DIURESIS. CASE MANAGEMENT FOLLOWING.
[2020-12-21] MEDS: Heparin Sodium,Porcine/1/2NS 25,000 UNIT/250 ML IV.SOLN 12.21 UNIT IVCONT (12:00)
[2020-12-21] MEDS: Heparin Sodium,Porcine 5,000 UNIT/ML VIAL 7000 UNIT IVPUSH (12:01)
[2020-12-21] MEDS: Nitroglycerin 2 % Oint 1 GM Packet 1 INCH TRANSDERMA ×2 (12:03→20:27)
[2020-12-21 19:20] LABS: PTT Heparin Drip > 200.0 SEC (53-77.9); Troponin-I High Sensitivity 106.6 ng/L (<3.5-17.0)
--- NOTE | 2020-12-21 19:45 | PC.NURSE ---
1800 PTT-HD CAME BACK CRITICALLY HIGH @ >200. hEPARING GTT IMMEDIATELY STOPPED, REPEAT PTT-HD ENTERED FOR 2019. REPORT GIVEN TO ONCOMLIUDMILA WISE.
[2020-12-21] MEDS: Acetaminophen 325 MG TABLET 650 MG PO (20:30)
--- NOTE | 2020-12-21 22:40 | CA_ITS ---
Transthoracic Echocardiogram Patient (Last, First, Middle): Nai Garcia S Gender: Female Date of : 1955 Age: 65 Procedure Date: 12/21/2020 Procedure Type: Transthoracic Echocardiogram Location: S3E Height: 167.64 cm Weight: 87.09 kg BSA: 1.97 m2 Heart Rate: bpm BP: 118 / 84 mmHg Main Galley Scullion: JOHNNY Zambrano MD: Ibis Weston MD Sheep Farmer: Braulio Kraus MD Symptoms: CHF Study Quality: Fair ECG Rhythm: Sinus Conclusions: - 1. [id number] LV systolic dysfunction with grade 2 diastolic dysfunction with regional wall motion abnormality consistent with ischemic cardiomyopathy 2. Moderately dilated left atrium 3. Hlkg-gv-uhinfyhk mitral regurgitation 4. Normal RV systolic pressure 5. No gross pericardial effusion Findings Left Ventricle Normal left ventricular cavity size. There is normal left ventricular wall thickness. The left ventricular systolic function is mild to moderately decreased. Spectral Doppler is indicative of a pseudonormal filling pattern. E/E prime ratio is >15, consistent with elevated filling pressures. Evidence suggests grade II (moderate) diastolic dysfunction. Wall Motion Rest Echo Findings The inferolateral wall and mid inferior segment are hypokinetic. The basal inferior and apical septum segments are akinetic. All other scored wall segments showed normal motion. Right Ventricle Normal right ventricular cavity size and systolic function. Atria The left atrium is moderately dilated. The right atrium is normal in size. Aortic Valve The aortic valve structure and function is likely normal. There is no aortic valve stenosis. There is no aortic valve regurgitation. Mitral Valve There is mild anterior and posterior mitral leaflet thickening. There is mild mitral annular calcification. There is mild to moderate mitral valve regurgitation. There is no mitral valve stenosis. Tricuspid Valve Likely normal tricuspid valve structure and function. There is trace tricuspid valve regurgitation. The right ventricular systolic pressure is normal. The right ventricular systolic pressure is 12 mmHg. There is no evidence of pulmonary hypertension. Great Vessels All visible segments of the aorta are normal in size. The pulmonary artery was not well visualized. Venous The inferior vena cava is normal in size and collapses greater than 50% with inspiration. Pericardium/Pleural There is no evidence of pericardial effusion. Prior Study Comparison Changes noted compared to prior study dated: 06/18/2019. LV systolic function is reduced with new wall motion abnormalities Measurements 2D Linear Measurements IVSd: 1.06 0.6-0.9/0.6-1.0 cm LVIDd: 5.16 3.9-5.3/4.2-5.9 cm LVIDd Index: 2.62 2.4-3.2/2.2-3.1 cm/m2 LVIDs: 4.00 2.0-3.6 cm LVPWd: 1.08 0.7-1.1 cm Ao Root: 3.10 2.1-3.5 cm LA Diam: 4.10 2.7-3.8/3.0-4.0 cm LAIDs Index: 2.08 1.5-2.3 cm/m2 LV Mass: 261.69 67-162/88-224 g LV Mass Index: 132.84 43-95/49-115 g/m2 LVOT Diam: 2.00 3.0+(-)1.3 cm 2D Systolic Function EF 4C: 47.70 >55% EF 2C: 47.10 >55% EF BiP: 47.10 >55% Mitral Valve MV Pk E: 1.17 MV PK A: 0.77 MV Decel Time: 193.00 E/A: 1.50 E'Lateral: 5.11 E'Medial: 4.79 E/E' Med: 24.40 E/E' Lat: 22.90 PHT: 56.00 MVA PHT: 3.93 Decel Barnwell: 6.07 Aortic Valve AoV Pk Master: 1.24 AoV Mn Master: 0.88 AoV VTI: 0.23 AoV Pk Grad: 6.00 Aov Mn Grad: 3.00 SHAHRAM Cont.VTI: 2.02 LVOT LVOT Pk Master: 0.74 LVOT Mn Master: 0.58 LVOT VTI: 0.15 LVOT Pk Grad: 2.00 LVOT Mn Grad: 1.00 LVOT Diam: 2.00 LVOT Area: 3.14 Diastolic Function MV Pk E: 1.17 MV Pk A: 0.77 E/A: 1.50 E'Medial: 4.79 E/E' Med: 24.40 E' Laterial: 5.11 E/E' Lat: 22.90 Tricuspid Valve TR Pk Master: 1.51 TR Pk Grad: 9.00 RA Press: 3.00 RVSP: 12.00 Great Vessels Aorta Ao Root-2D: 3.10 2.0-3.7 cm Ao Asc: 3.10 2.1-3.4 cm Updated in Other Vendor System with Status of Final Braulio Kraus MD electronically signed on 12/21/2020 10:53:20 AM with status of Final
[2020-12-21 22:50] LABS: PTT Heparin Drip 71.5 SEC (53-77.9)
[2020-12-22] VITALS (9 sets, daily range): BP systolic 102–135; BP diastolic 54–89; PULSE 54–81; RESP 17–20; TEMP 36.1–36.6; O2SAT 93–99; BMI 31.3
--- NOTE | 2020-12-22 | ECG_ITS ---
Test Reason : NSTEMI Blood Pressure : / mmHG Vent. Rate : 057 BPM Atrial Rate : 057 BPM P-R Int : 152 ms QRS Dur : 094 ms QT Int : 598 ms P-R-T Axes : -23 001 154 degrees QTc Int : 582 ms Sinus bradycardia Left ventricular hypertrophy with repolarization abnormality Marked T wave inversion s/o ischemia Inferior infarct (cited on or before 20-DEC-2020) Prolonged QT Abnormal ECG When compared with ECG of 20-DEC-2020 20:46, Questionable change in initial forces of Inferior leads T wave inversion more evident in Anterolateral leads QT has lengthened Referred By: Ijeoma Becerra Electronically Signed By:MADDIE ARIAS MD
[2020-12-22 01:04] LABS: Hematocrit 30.6 % (37-47); Hemoglobin 9.7 g/dl (12.0-16.0)
[2020-12-22 03:33] LABS: Troponin-I High Sensitivity 83.5 ng/L (<3.5-17.0)
[2020-12-22] MEDS: Omeprazole 20 MG CAPSULE.DR PO (05:34)
[2020-12-22 05:57] LABS: Hematocrit 30.9 % (37-47); Hemoglobin 9.9 g/dl (12.0-16.0); Mean Corpuscular Hemoglobin 26.2 pg (27.0-33.0); Mean Corpuscular Volume 81.7 fL (80-98); Platelet Count 224 X10*3/uL (160-400); Red Blood Count 3.78 X10*6/uL (4.20-5.50); Red Cell Distribution Width 14.9 % (11.0-16.0); White Blood Count 6.1 X10*3/uL (4.8-10.8)
[2020-12-22 06:08] LABS: INTERNATIONAL NORM RATIO 1.3 (0.9-1.1)
[2020-12-22 06:10] LABS: PTT Heparin Drip 97.4 SEC (53-77.9)
[2020-12-22 06:22] LABS: B Type Natriuretic Peptide 784 pg/mL (<100)
[2020-12-22 06:35] LABS: Anion Gap 13 (12-20); Blood Urea Nitrogen 24 mg/dL (9-16); Calcium 8.6 mg/dL (8.4-10.2); Carbon Dioxide 27 mmol/L (22-29); Chloride 103 mmol/L (96-108); Creatinine Clr Calc Pharmacy 53.5; Estimated Glomerular Filt Rate 48; Glucose Random 107 mg/dL (60-115); Potassium 3.7 mmol/L (3.3-5.1); Sodium 139 mmol/L (135-145)
[2020-12-22] MEDS: Fluticasone/Vilanterol 200/25 BLST.W.DEV 1 PUFF INHALE ×2 (07:58→20:10)
--- NOTE | 2020-12-22 08:30 | PC.NURSE ---
Previous RN reported maroon stool. Provider aware. Heparin drip put on hold.
[2020-12-22] MEDS: PARoxetine HCL 40 MG TABLET PO (08:38)
[2020-12-22] MEDS: Metoprolol Succinate ER 50 MG TAB.ER.24H PO (08:39)
[2020-12-22] MEDS: Aspirin Enteric Coated 81 MG TABLET.DR PO (08:39)
[2020-12-22] MEDS: cilostazoL 50 MG TABLET PO ×2 (08:39→20:08)
[2020-12-22] MEDS: Atorvastatin Calcium 80 MG TABLET PO (08:39)
[2020-12-22] MEDS: Cholecalciferol (Vitamin D3) 25 MCG TABLET PO (08:39)
[2020-12-22] MEDS: Cyanocobalamin (Vitamin B-12) 1,000 MCG TABLET 1000 MCG PO (08:40)
[2020-12-22] MEDS: Furosemide 40 MG/4 ML VIAL IVPUSH ×2 (08:40→17:49)
--- NOTE | 2020-12-22 08:51 | HO.PM.IMPN ---
Subjective Subjective Date of Service: 12/22/20 Interval History: f/u CHF report of maroon staining on bed and some maroon colored stool on tissue after going to the bathroom overnight. Patient reports feeling fatigued. No chest pain, some improvement in SOB Review of Systems Review of Systems: Yes all other systems are reviewed and are negative Constitutional Constitutional: Denies chills and Denies fever(s) Cardiovascular Cardiovascular: Denies chest pain Respiratory Respiratory: Denies cough Gastrointestinal Gastrointestinal: Denies abdominal pain Physical Exam Vital Signs: Vital Signs: Last Vital Signs Temp 97.0 F 12/22/20 08:00 Pulse 67 12/22/20 08:40 Resp 19 12/22/20 08:00 BP 122/57 L 12/22/20 08:40 Pulse Ox 97 12/22/20 08:00 Body Mass Index 31.3 Const: Nutritional Appearance: well nourished Orientation/consciousness: patient oriented x3 HENMT: Head: Yes normocephalic and Yes atraumatic Eyes: Sclerae: sclerae normal Chest: Chest palpation & inspection: normal inspection of the chest Resp: Effort & Inspection: normal respiratory effort and no respiratory distress Cardio: Rate: regular rate Rhythm: regular rhythm GI: Palpation (GI): Soft to palpation and nontender : Other: mahoney catheter present Skin: General skin exam: no rashes or lesions noted Neuro: General: patient oriented x3 Cranial nerves: Yes CN's II-XII intact bilaterally and Yes Bilaterally intact EOM present Extrem: General: Yes normal to inspection Objective Data Current Medications Generic Name Dose Route Start Last Admin Trade Name Freq PRN Reason Stop Dose Admin Acetaminophen 650 mg 12/20/20 22:40 12/21/20 20:30 Acetaminophen 325 Mg Tablet PO 650 mg Q6H PRN Administration Pain, Mild (Pain Scale 1-3) Aspirin 81 mg 12/21/20 09:00 12/22/20 08:39 Aspirin Enteric Coated 81 Mg Tablet. PO 81 mg DAILY JOSE Administration Atorvastatin Calcium 80 mg 12/21/20 09:00 12/22/20 08:39 Atorvastatin Calcium 80 Mg Tablet PO 80 mg DAILY JOSE Administration Cilostazol 50 mg 12/21/20 09:00 12/22/20 08:39 Cilostazol 50 Mg Tablet PO 50 mg BID JOSE Administration Cyanocobalamin 1,000 mcg 12/21/20 09:00 12/22/20 08:40 Cyanocobalamin (Vitamin B-12) 1,000 Mcg Tablet PO 1,000 mcg DAILY JOSE Administration Docusate Sodium 100 mg 12/20/20 22:40 Docusate Sodium 100 Mg Capsule PO DAILY PRN Constipation Fluticasone/Vilanterol 1 puff 12/21/20 08:00 12/22/20 07:58 Fluticasone/Vilanterol 200/25 Blst.W.Dev INHALE 1 puff RBID JOSE Administration Furosemide 40 mg 12/20/20 22:40 12/22/20 08:40 Furosemide 40 Mg/4 Ml Vial IVPUSH 40 mg BID@0900,1800 JOSE Administration Protocol Heparin Sodium (Porcine) 3,500 unit 12/21/20 10:39 Heparin Sodium,Porcine 5,000 Unit/Ml Vial 40 unit/kg (3500 unit) IVPUSH BOLUS PRN 40 unit/kg - Heparin Protocol Heparin Sodium (Porcine) 7,000 unit 12/21/20 10:39 Heparin Sodium,Porcine 5,000 Unit/Ml Vial 80 unit/kg (7000 unit) IVPUSH BOLUS PRN 80 unit/kg - Heparin Protocol Heparin Sodium/Sodium Chloride 25,000 unit in 250 mls @ 0 mls/hr 12/21/20 10:45 12/22/20 08:28 IVCONT Infused .Q0M JOSE Titration Protocol Per Protocol Lisinopril 5 mg 12/21/20 13:00 12/22/20 08:40 Lisinopril 5 Mg Tablet PO 5 mg BID JOSE Administration Protocol Metoprolol Succinate 50 mg 12/21/20 09:00 12/22/20 08:39 Metoprolol Succinate Er 50 Mg Tab.Er.24h PO 50 mg DAILY JOSE Administration Protocol Nitroglycerin 1 inch 12/21/20 14:00 12/22/20 08:47 Nitroglycerin 2 % Oint 1 Gm Packet TRANSDERMA Not Given RQ6H WHILE AWAKE JOSE Non-Formulary Medication 10 mg 12/21/20 09:00 Dalfampridine PO BID JOSE Non-Formulary Medication 30 mcg 12/20/20 22:40 Interferon Beta-1a [Avonex] IM Q7D [facility] Omeprazole 20 mg 12/21/20 06:30 12/22/20 05:34 Omeprazole 20 Mg Capsule.Dr PO 20 mg DAILY@0630 JOSE Administration Ondansetron HCl 4 mg 12/20/20 22:40 Ondansetron Hcl 4 Mg/2 Ml Vial IVPUSH Q8H PRN Nausea and Vomiting Paroxetine HCl 40 mg 12/21/20 09:00 12/22/20 08:38 Paroxetine Hcl 40 Mg Tablet PO 40 mg DAILY JOSE Administration Pharmacy Consult 1 each 12/20/20 21:45 Consult Rx Perform Med Rec MISCELLANE ONCE JOSE Sodium Chloride 3 ml 12/21/20 00:00 12/21/20 20:41 0.9 % Sodium Chloride Flush 3 Ml Syringe IVFLUSH 3 ml QSHIFT JOSE Administration Vitamin D 25 mcg 12/21/20 09:00 12/22/20 08:39 Cholecalciferol (Vitamin D3) 25 Mcg Tablet PO 25 mcg DAILY JOSE Administration Labs CBC & Chem 7: 12/22/20 09:54 12/22/20 05:50 Microbiology Microbiology Results: Microbiology 12/20/20 19:03 Blood - Venous Blood Culture - Preliminary No growth after 24 hours. 12/20/20 17:12 Blood - Venous Blood Culture - Preliminary No growth after 24 hours. Assessment and Plan (1) CAD (coronary artery disease): Status: Acute (2) CHF (congestive heart failure): Status: Acute Assessment and Plan: This is a 65-year-old female with past medical history of CAD s/p stent, PVD s/p stents, COPD, MS who presents to the hospital with progressive dyspnea found to have uncontrolled HTN and hypoxia thought to be secondary to CHF acute hypoxic respiratory failure most likely r/t acute CHF. acute systolic and diastolic CHF ECHO: [id number] LV systolic dysfunction with grade 2 diastolic dysfunction with regional wall motion abnormality consistent with ischemic cardiomyopathy BNP down from 1956 to 78. - Continue Lasix IV 40 b.i.d. - strict I&O, daily weight, low-sodium diet - Mahoney for fluid management - cardiology following - follow BNP NSTEMI Trop peaked at 127 denies any chest pain but symptoms of dyspnea similar to previous prior to stenting -continue ASA, BB, statin -hold heparin drip due to episode of dark stool -will require ischemic workup -echo results as above Episode of maroon stool H/H drifting down -Hold heparin, ASA -follow CBC, check stool occult -GI consult -monitor for further bleeding HTN Goal BP 140/80 BP on lower side. -continue home metoprolol, lisinopril -nitro on hold. -Follow BP closely COPD - no acute exacerbation - continue home inhalers PVD continue ASA, pletal MS - no acute flare -dalfampridine NF Mood Continue paroxetine Gerd Continue omeprazole DVT ppx -heparin This case was discussed with Dr. Love
[2020-12-22 10:07] LABS: MANUAL DIFF FLAG NO
[2020-12-22 10:11] LABS: Basophils Percent Auto 0.6 % (0-2); Eosinophils Absolute Auto 0.1 X10*3/uL (0.0-0.4); Eosinophils Percent Auto 1.5 % (0-4); Hematocrit 30.7 % (37-47); Hemoglobin 9.8 g/dl (12.0-16.0); Imm Gran Abs Auto 0.01 X10*3/uL (0.00-0.03); Imm Gran Pct Auto 0.2 % (0.0-0.4); Lymphocytes Absolute Auto 1.7 X10*3/uL (1.2-4.9); Lymphocytes Percent Auto 26.3 % (20-40); Mean Corpuscular HGB Conc 31.9 g/dl (31.0-35.0); Mean Corpuscular Hemoglobin 26.7 pg (27.0-33.0); Mean Corpuscular Volume 83.7 fL (80-98); Mean Platelet Volume 10.3 fL (9.4-12.3); Monocytes Absolute Auto 0.4 X10*3/uL (0.1-1.2); Monocytes Percent Auto 5.9 % (2-11); Neutrophils Absolute Auto 4.3 X10*3/uL (2.0-8.3); Neutrophils Percent Auto 65.5 % (45-73); Platelet Count 221 X10*3/uL (160-400); Red Blood Count 3.67 X10*6/uL (4.20-5.50); White Blood Count 6.6 X10*3/uL (4.8-10.8)
[2020-12-22] MEDS: Potassium Chloride ER 20 MEQ TAB.ER.PRT 40 MEQ PO (11:01)
[2020-12-22 11:13] LABS: Magnesium 1.7 mg/dL (1.6-2.6)
--- NOTE | 2020-12-22 11:46 | MHC.CM.PN ---
PER PHYSICIAN ROUNDS, PATIENT ON HEPARIN DRIP WITH EPISODE MAROON STOOLS. GI CONSULT CANCELLED. PLAN IS TO STABILIZE AND TRANSFER TO [facility] FOR CARDIAC CATH ONCE ACCOMPLISHED.
--- NOTE | 2020-12-22 11:52 | PC.NURSE ---
Pt requested to have all four of her side rails up for repositioning. healthcare account manager aware.
--- NOTE | 2020-12-22 12:30 | PM.PNCARD ---
Subjective Subjective Date of Service: 12/22/20 <MODESTA Tyler - Last Filed: 12/22/20 12:47> 12/22/20 <Braulio Kraus MD - Last Filed: 12/22/20 13:21> Principal diagnosis: shortness of breath, ACS, CHF, ischemic CMP <MODESTA Tyler - Last Filed: 12/22/20 12:47> Interval history: Cardiology follow up for the above. Seen at 0900. Today she reports that her breathing is feeling better than yesterday. She slept generally well, HOB elevated about 30 degrees. No chest pains or heart palpitation. No lightheadedness. Nurse reports a burgandy color stool last evening and Heparin drip has been on hold. Pt reports no Hx of any GIB in past. No abnomenal discomfort, distention or evidence of bleeding this am. Ate breakfast. <MODESTA Tyler - Last Filed: 12/22/20 12:47> Review of Systems Review of Systems as above <MODESTA Tyler - Last Filed: 12/22/20 12:47> Yes all other systems are reviewed and are negative <MODESTA Tyler - Last Filed: 12/22/20 12:47> Physical Exam Vital Signs: Last Vital Signs Temp 97.0 F 12/22/20 11:41 Pulse 60 12/22/20 11:41 Resp 17 12/22/20 11:41 BP 105/54 L 12/22/20 11:41 Pulse Ox 97 12/22/20 11:41 Body Mass Index 31.3 <MODESTA Tyler - Last Filed: 12/22/20 12:47> Const General: cooperative, no acute distress, alert and awake <MODESTA Tyler - Last Filed: 12/22/20 12:47> Orientation/consciousness: patient oriented x3 <MODESTA Tyler Last Filed: 12/22/20 12:47> Neck Neck: Yes normal visual inspection and Yes no JVD <MODESTA Tyler - Last Filed: 12/22/20 12:47> Resp Effort & Inspection: normal respiratory effort, able to speak in complete sentences and not labored <MICHAEL TylerC - Last Filed: 12/22/20 12:47> Auscultation: clear to auscultation bilaterally (dim bases), no crackles, no rales, no rhonchi and no wheezes <MICHAEL TylerC - Last Filed: 12/22/20 12:47> Cardio Palpation: normal PMI <MICHAEL TylerC - Last Filed: 12/22/20 12:47> Rate: regular rate <MICHAEL TylerC - Last Filed: 12/22/20 12:47> Rhythm: regular rhythm <MICHAEL TylerC - Last Filed: 12/22/20 12:47> Heart sounds: S1 normal heart sound present and S2 normal heart sound present <MICHAEL TylerC - Last Filed: 12/22/20 12:47> Peripheral pulses: Peripheral pulses 2+ throughout <MICHAEL TylerC - Last Filed: 12/22/20 12:47> GI Inspection: Yes normal to inspection <MICHAEL TylerC - Last Filed: 12/22/20 12:47> Skin General skin exam: no rashes or lesions noted <MICHAEL TylerC - Last Filed: 12/22/20 12:47> Neuro General: patient oriented x3 <MICHAEL TylerC - Last Filed: 12/22/20 12:47> Extrem General: Yes normal to inspection and No edema <Ijeoma Becerra MICHAELC - Last Filed: 12/22/20 12:47> Results Labs and Meds Result diagrams: : 12/22/20 09:54 12/22/20 05:50 <Ijeoma Becerra [employer] - Last Filed: 12/22/20 12:47> Lab results: Laboratory Results - last 24 hr 12/21/20 12/21/20 12/21/20 18:14 18:14 20:20 WBC RBC Hgb Hct MCV MCH MCHC RDW Plt Count MPV Immature Gran % (Auto) Neut % (Auto) Lymph % (Auto) [place] % (Auto) Eos % (Auto) Baso % (Auto) Lymph # (Auto) [place] # (Auto) Eos # (Auto) Baso # (Auto) Abs Immat Gran (auto) Absolute Neuts (auto) Absolute Nucleated RBC Nucleated RBC % (auto) PT INR PTT (Heparin Protocol) > 200.0 H* D 183.0 H* Sodium Potassium Chloride Carbon Dioxide Anion Gap BUN Creatinine Estim Creat Clear Calc Estimated GFR Random Glucose Calcium Magnesium Troponin I High Sens 106.6 H B-Natriuretic Peptide 12/21/20 12/22/20 12/22/20 22:33 00:55 00:55 WBC RBC Hgb 9.7 L Hct 30.6 L MCV MCH MCHC RDW Plt Count MPV Immature Gran % (Auto) Neut % (Auto) Lymph % (Auto) [place] % (Auto) Eos % (Auto) Baso % (Auto) Lymph # (Auto) [place] # (Auto) Eos # (Auto) Baso # (Auto) Abs Immat Gran (auto) Absolute Neuts (auto) Absolute Nucleated RBC Nucleated RBC % (auto) PT INR PTT (Heparin Protocol) 71.5 D Sodium Potassium Chloride Carbon Dioxide Anion Gap BUN Creatinine Estim Creat Clear Calc Estimated GFR Random Glucose Calcium Magnesium Troponin I High Sens 83.5 H B-Natriuretic Peptide 12/22/20 12/22/20 12/22/20 05:50 05:50 05:50 WBC RBC Hgb Hct MCV MCH MCHC RDW Plt Count MPV Immature Gran % (Auto) Neut % (Auto) Lymph % (Auto) [place] % (Auto) Eos % (Auto) Baso % (Auto) Lymph # (Auto) [place] # (Auto) Eos # (Auto) Baso # (Auto) Abs Immat Gran (auto) Absolute Neuts (auto) Absolute Nucleated RBC Nucleated RBC % (auto) PT 15.0 H INR 1.3 H PTT (Heparin Protocol) 97.4 H D Sodium 139 Potassium 3.7 D Chloride 103 Carbon Dioxide 27 Anion Gap 13 BUN 24 H Creatinine 1.14 Estim Creat Clear Calc 53.5 Estimated GFR 48 Random Glucose 107 Calcium 8.6 Magnesium 1.7 Troponin I High Sens B-Natriuretic Peptide 784 H 12/22/20 12/22/20 05:50 09:54 WBC 6.1 6.6 RBC 3.78 L 3.67 L Hgb 9.9 L 9.8 L Hct 30.9 L 30.7 L MCV 81.7 83.7 MCH 26.2 L 26.7 L MCHC 32.0 31.9 RDW 14.9 15.0 Plt Count 224 221 MPV 10.0 10.3 Immature Gran % (Auto) 0.2 Neut % (Auto) 65.5 Lymph % (Auto) 26.3 [place] % (Auto) 5.9 Eos % (Auto) 1.5 Baso % (Auto) 0.6 Lymph # (Auto) 1.7 [place] # (Auto) 0.4 Eos # (Auto) 0.1 Baso # (Auto) 0.0 Abs Immat Gran (auto) 0.01 Absolute Neuts (auto) 4.3 Absolute Nucleated RBC 0.000 0.000 Nucleated RBC % (auto) 0.0 0.0 PT INR PTT (Heparin Protocol) Sodium Potassium Chloride Carbon Dioxide Anion Gap BUN Creatinine Estim Creat Clear Calc Estimated GFR Random Glucose Calcium Magnesium Troponin I High Sens B-Natriuretic Peptide <MODESTA Tyler - Last Filed: 12/22/20 12:47> Progress Note: A&P Assessment and plan (1) NSTEMI (non-ST elevated myocardial infarction): Status: Acute <MODESTA Tyler - Last Filed: 12/22/20 12:47> Assessment and Plan: Admit with increasing sob. Trop elevated up to 127 with upward and downward trend. EKG without ischemia. Has known Hx of CAD with LCx and ostial RCA stents. Echo shows mild to mod LV dysfunction, grade II diastolic dysfunction, WMA consistent with ischemic CMP, mod LA dilation and mild to mod MR. Treated for ACS with aspirin, high dose atorvastatin, NTG Paste, Metoprolol, Lisinopril, Lasix. Heparin drip used, then last puma with reported burgandy color stool. No hx GIB. Hgb this am down to 9.9, from 11.4 initially. Will check stool occult blood. Will need close monitoring of h/h. Recommend GI eval as she will need further ischemia eval and treatment. Plan for stress test Vs cardiac cath. No med changes at present. Tele monitor this am shows ST / T wave abnormality - will obtain EKG for further evaluation. <MODESTA Tyler - Last Filed: 12/22/20 12:47> Patient with minimal troponin elevation consistent with myocardial injury which could be secondary to hypertensive crisis. She was given IV heparin as she has new wall motion abnormality on echocardiogram and there is concern for acute myocardial ischemia. EKG today shows significant T-wave inversions. However with IV heparin PTT was significantly elevated above 200 and then she developed maroon stools and drop in hematocrit. IV heparin was appropriately discontinued. Hemoglobin has remained stable so far. This makes management very difficult. Would hold off on IV anticoagulation and obtain a GI consult. If she has no clear active GI bleeding and hemoglobin remained stable, will consider invasive cardiac catheterization. Will need GI clearance for the same. Continue aspirin therapy. Transfuse as needed to hematocrit above 30. Continue metoprolol and nitrates. <Braulio Kraus MD - Last Filed: 12/22/20 13:21> (2) CAD (coronary artery disease): Status: Acute <MODESTA Tyler - Last Filed: 12/22/20 12:47> Assessment and Plan: as above. Follows with Dr Lizama as outpt <MODESTA Tyler - Last Filed: 12/22/20 12:47> (3) Acute exacerbation of CHF (congestive heart failure): Status: Acute <MODESTA Tyler - Last Filed: 12/22/20 12:47> Assessment and Plan: Treated for acute HF this admit. Diuresed with IV lasix with clinical improvement in condition. I+Os do not appear to be accurate. BNP down to 784, from 1956 initially. She is currently on O2 1.5 liters and breathing comfortables. No JVD or noted rales on exam. Continue IV lasix today and plan to change to PO tomorrow. <MODESTA Tyler - Last Filed: 12/22/20 12:47> Acute congestive heart failure which has improved. Noted LV systolic dysfunction or wall motion abnormality suggestive of ischemic cardiomyopathy. Blood pressure is much better controlled. Continue lisinopril and metoprolol therapy for neurohormonal modulation. Continue current diuretics, can switch to p.o. Lasix tomorrow. She appears very comfortable from this perspective. Ischemic workup will need to be pursued as above. Will await GI clearance. Will follow the patient. <Braulio Kraus MD - Last Filed: 12/22/20 13:21> (4) Acute and chronic respiratory failure with hypoxia: Status: Acute <MODESTA Tyler - Last Filed: 12/22/20 12:47> (5) Hypertensive crisis: Status: Acute <MODESTA Tyelr - Last Filed: 12/22/20 12:47> Assessment and Plan: BP elevated up to 230 systolic on admit. Diuresed, Lisinopril added, Nitro paste added. BP this am much better control. This may have contributed to her elevated Troponin. <MODESTA Tyler - Last Filed: 12/22/20 12:47> (6) Elevated troponin: Status: Acute <MODESTA Tyler - Last Filed: 12/22/20 12:47> Fall Risk Details Current Medications: Current Medications Generic Name Dose Route Start Last Admin Trade Name Freq PRN Reason Stop Dose Admin Acetaminophen 650 mg 12/20/20 22:40 12/21/20 20:30 Acetaminophen 325 Mg Tablet PO 650 mg Q6H PRN Administration Pain, Mild (Pain Scale 1-3) Atorvastatin Calcium 80 mg 12/21/20 09:00 12/22/20 08:39 Atorvastatin Calcium 80 Mg Tablet PO 80 mg DAILY JOSE Administration Cilostazol 50 mg 12/21/20 09:00 12/22/20 08:39 Cilostazol 50 Mg Tablet PO 50 mg BID JOSE Administration Cyanocobalamin 1,000 mcg 12/21/20 09:00 12/22/20 08:40 Cyanocobalamin (Vitamin B-12) 1,000 Mcg Tablet PO 1,000 mcg DAILY JOSE Administration Docusate Sodium 100 mg 12/20/20 22:40 Docusate Sodium 100 Mg Capsule PO DAILY PRN Constipation Fluticasone/Vilanterol 1 puff 12/21/20 08:00 12/22/20 07:58 Fluticasone/Vilanterol 200/25 Blst.W.Dev INHALE 1 puff RBID JOSE Administration Furosemide 40 mg 12/20/20 22:40 12/22/20 08:40 Furosemide 40 Mg/4 Ml Vial IVPUSH 40 mg BID@0900,1800 JOSE Administration Protocol Heparin Sodium (Porcine) 3,500 unit 12/21/20 10:39 Heparin Sodium,Porcine 5,000 Unit/Ml Vial 40 unit/kg (3500 unit) IVPUSH BOLUS PRN 40 unit/kg - Heparin Protocol Heparin Sodium (Porcine) 7,000 unit 12/21/20 10:39 Heparin Sodium,Porcine 5,000 Unit/Ml Vial 80 unit/kg (7000 unit) IVPUSH BOLUS PRN 80 unit/kg - Heparin Protocol Heparin Sodium/Sodium Chloride 25,000 unit in 250 mls @ 0 mls/hr 12/21/20 10:45 12/22/20 08:28 IVCONT Infused .Q0M JOSE Titration Protocol Per Protocol Lisinopril 5 mg 12/21/20 13:00 12/22/20 08:40 Lisinopril 5 Mg Tablet PO 5 mg BID JOSE Administration Protocol Metoprolol Succinate 50 mg 12/21/20 09:00 12/22/20 08:39 Metoprolol Succinate Er 50 Mg Tab.Er.24h PO 50 mg DAILY JOSE Administration Protocol Nitroglycerin 1 inch 12/21/20 14:00 12/22/20 08:47 Nitroglycerin 2 % Oint 1 Gm Packet TRANSDERMA Not Given RQ6H WHILE AWAKE [facility] Non-Formulary Medication 10 mg 12/21/20 09:00 Dalfampridine PO BID [facility] Non-Formulary Medication 30 mcg 12/20/20 22:40 Interferon Beta-1a [Avonex] IM Q7D [facility] Omeprazole 20 mg 12/21/20 06:30 12/22/20 05:34 Omeprazole 20 Mg Capsule.Dr PO 20 mg DAILY@0630 [facility] Administration Ondansetron HCl 4 mg 12/20/20 22:40 Ondansetron Hcl 4 Mg/2 Ml Vial IVPUSH Q8H PRN Nausea and Vomiting Pantoprazole Sodium 40 mg 12/22/20 16:30 Pantoprazole Sodium 40 Mg/10 Ml Vial IVPUSH BID@0630,1630 [facility] Paroxetine HCl 40 mg 12/21/20 09:00 12/22/20 08:38 Paroxetine Hcl 40 Mg Tablet PO 40 mg DAILY [facility] Administration Pharmacy Consult 1 each 12/20/20 21:45 Consult Rx Perform Med Rec MISCELLANE ONCE JOSE Sodium Chloride 3 ml 12/21/20 00:00 12/21/20 20:41 0.9 % Sodium Chloride Flush 3 Ml Syringe IVFLUSH 3 ml QSHIFT JOSE Administration Vitamin D 25 mcg 12/21/20 09:00 12/22/20 08:39 Cholecalciferol (Vitamin D3) 25 Mcg Tablet PO 25 mcg DAILY JOSE Administration <MODESTA Tyler - Last Filed: 12/22/20 12:47> Time Spent With Patient Time: Total time spent is greater than 50% in coordination of care (as documented) at patient's floor/unit and/or counseling patient: 24 <MODESTA Tyler - Last Filed: 12/22/20 12:47> Time with patient: 15 - 24 minutes <MODESTA Tyler - Last Filed: 12/22/20 12:47> Procedures Date of Service Date of Service: 12/22/20 <MODESTA Tyler - Last Filed: 12/22/20 12:47>
[2020-12-22 16:02] LABS: MANUAL DIFF FLAG NO
[2020-12-22 16:07] LABS: Basophils Percent Auto 0.4 % (0-2); Eosinophils Absolute Auto 0.1 X10*3/uL (0.0-0.4); Eosinophils Percent Auto 0.9 % (0-4); Hematocrit 32.9 % (37-47); Hemoglobin 10.3 g/dl (12.0-16.0); Imm Gran Abs Auto 0.02 X10*3/uL (0.00-0.03); Imm Gran Pct Auto 0.3 % (0.0-0.4); Lymphocytes Absolute Auto 1.3 X10*3/uL (1.2-4.9); Lymphocytes Percent Auto 16.8 % (20-40); Mean Corpuscular HGB Conc 31.3 g/dl (31.0-35.0); Mean Corpuscular Hemoglobin 26.3 pg (27.0-33.0); Mean Corpuscular Volume 83.9 fL (80-98); Mean Platelet Volume 10.1 fL (9.4-12.3); Monocytes Absolute Auto 0.5 X10*3/uL (0.1-1.2); Monocytes Percent Auto 6.7 % (2-11); Neutrophils Absolute Auto 5.8 X10*3/uL (2.0-8.3); Neutrophils Percent Auto 74.9 % (45-73); Platelet Count 246 X10*3/uL (160-400); Red Blood Count 3.92 X10*6/uL (4.20-5.50); Red Cell Distribution Width 15.1 % (11.0-16.0); White Blood Count 7.7 X10*3/uL (4.8-10.8)
[2020-12-22] MEDS: Pantoprazole Sodium 40 MG/10 ML VIAL IVPUSH (17:13)
[2020-12-22] MEDS: 0.9 % Sodium Chloride Flush 3 ML SYRINGE IVFLUSH (17:21)
[2020-12-22 22:28] LABS: MANUAL DIFF FLAG NO
[2020-12-22 22:29] LABS: Basophils Percent Auto 0.4 % (0-2); Eosinophils Absolute Auto 0.1 X10*3/uL (0.0-0.4); Hematocrit 32.4 % (37-47); Hemoglobin 10.3 g/dl (12.0-16.0); Imm Gran Abs Auto 0.02 X10*3/uL (0.00-0.03); Imm Gran Pct Auto 0.2 % (0.0-0.4); Lymphocytes Absolute Auto 1.8 X10*3/uL (1.2-4.9); Lymphocytes Percent Auto 21.9 % (20-40); Mean Corpuscular HGB Conc 31.8 g/dl (31.0-35.0); Mean Corpuscular Hemoglobin 26.5 pg (27.0-33.0); Mean Corpuscular Volume 83.3 fL (80-98); Mean Platelet Volume 10.2 fL (9.4-12.3); Monocytes Absolute Auto 0.7 X10*3/uL (0.1-1.2); Monocytes Percent Auto 8.9 % (2-11); Neutrophils Absolute Auto 5.5 X10*3/uL (2.0-8.3); Neutrophils Percent Auto 67.6 % (45-73); Platelet Count 242 X10*3/uL (160-400); Red Blood Count 3.89 X10*6/uL (4.20-5.50); Red Cell Distribution Width 15.1 % (11.0-16.0); White Blood Count 8.2 X10*3/uL (4.8-10.8)
[2020-12-23] VITALS (7 sets, daily range): BP systolic 97–127; BP diastolic 53–73; PULSE 65–83; RESP 14–19; TEMP 35.9–36.9; O2SAT 96–100; BMI 30.7
[2020-12-23] MEDS: Acetaminophen 325 MG TABLET 650 MG PO (00:17)
[2020-12-23] MEDS: Pantoprazole Sodium 40 MG/10 ML VIAL IVPUSH (06:23)
[2020-12-23] MEDS: 0.9 % Sodium Chloride Flush 3 ML SYRINGE IVFLUSH ×4 (06:24→20:38)
[2020-12-23] MEDS: Furosemide 40 MG/4 ML VIAL IVPUSH (08:11)
[2020-12-23] MEDS: Fluticasone/Vilanterol 200/25 BLST.W.DEV 1 PUFF INHALE ×2 (08:11→20:15)
[2020-12-23] MEDS: ondansetron HCL 4 MG/2 ML VIAL IVPUSH (08:11)
[2020-12-23 08:24] LABS: MANUAL DIFF FLAG NO
[2020-12-23 08:28] LABS: Anion Gap 13 (12-20); Blood Urea Nitrogen 25 mg/dL (9-16); Calcium 8.5 mg/dL (8.4-10.2); Carbon Dioxide 27 mmol/L (22-29); Chloride 103 mmol/L (96-108); Creatinine Clr Calc Pharmacy 54.4; Estimated Glomerular Filt Rate 49; Glucose Random 99 mg/dL (60-115); Potassium 3.9 mmol/L (3.3-5.1); Sodium 139 mmol/L (135-145)
[2020-12-23 08:43] LABS: Basophils Percent Auto 0.6 % (0-2); Eosinophils Absolute Auto 0.1 X10*3/uL (0.0-0.4); Eosinophils Percent Auto 1.9 % (0-4); Hematocrit 31.5 % (37-47); Hemoglobin 9.9 g/dl (12.0-16.0); Imm Gran Abs Auto 0.01 X10*3/uL (0.00-0.03); Imm Gran Pct Auto 0.1 % (0.0-0.4); Lymphocytes Absolute Auto 1.5 X10*3/uL (1.2-4.9); Lymphocytes Percent Auto 22.6 % (20-40); Mean Corpuscular HGB Conc 31.4 g/dl (31.0-35.0); Mean Corpuscular Hemoglobin 25.8 pg (27.0-33.0); Mean Platelet Volume 10.3 fL (9.4-12.3); Monocytes Absolute Auto 0.6 X10*3/uL (0.1-1.2); Monocytes Percent Auto 8.7 % (2-11); Neutrophils Absolute Auto 4.5 X10*3/uL (2.0-8.3); Neutrophils Percent Auto 66.1 % (45-73); Platelet Count 221 X10*3/uL (160-400); Red Blood Count 3.84 X10*6/uL (4.20-5.50); White Blood Count 6.8 X10*3/uL (4.8-10.8)
[2020-12-23] MEDS: Cyanocobalamin (Vitamin B-12) 1,000 MCG TABLET 1000 MCG PO (08:57)
[2020-12-23] MEDS: Atorvastatin Calcium 80 MG TABLET PO (08:57)
[2020-12-23] MEDS: Cholecalciferol (Vitamin D3) 25 MCG TABLET PO (08:57)
[2020-12-23] MEDS: PARoxetine HCL 40 MG TABLET PO (08:57)
[2020-12-23] MEDS: cilostazoL 50 MG TABLET PO ×2 (08:58→20:38)
--- NOTE | 2020-12-23 09:14 | HO.PM.IMPN ---
Subjective Subjective Date of Service: 12/23/20 <KARLY Villarreal - Last Filed: 12/23/20 11:20> 12/23/20 <Jermaine Love MD - Last Filed: 12/23/20 13:48> Review of Systems Review of Systems: Yes all other systems are reviewed and are negative <KARLY Villarreal - Last Filed: 12/23/20 11:20> Constitutional Constitutional: Denies chills and Denies fever(s) <KARLY Villarreal - Last Filed: 12/23/20 11:20> Cardiovascular Cardiovascular: Denies chest pain <KARLY Villarreal - Last Filed: 12/23/20 11:20> Respiratory Respiratory: Denies cough <KARLY Villarreal - Last Filed: 12/23/20 11:20> Gastrointestinal Gastrointestinal: Denies abdominal pain, Reports nausea and Denies vomiting <KARLY Villarreal - Last Filed: 12/23/20 11:20> Physical Exam Vital Signs: Vital Signs: Last Vital Signs Temp 96.6 F L 12/23/20 08:00 Pulse 68 12/23/20 08:00 Resp 18 12/23/20 08:00 BP 100/57 L 12/23/20 08:00 Pulse Ox 96 12/23/20 08:00 Body Mass Index 30.7 <KARLY Villarreal - Last Filed: 12/23/20 11:20> Const: General: alert, awake and ill appearing <KARLY Villarreal - Last Filed: 12/23/20 11:20> Nutritional Appearance: overweight <KARLY Villarreal - Last Filed: 12/23/20 11:20> Orientation/consciousness: patient oriented x3 <KARLY Villarreal - Last Filed: 12/23/20 11:20> HENMT: Head: Yes normocephalic and Yes atraumatic <KARLY Villarreal - Last Filed: 12/23/20 11:20> Eyes: Sclerae: sclerae normal <KARLY Villarreal - Last Filed: 12/23/20 11:20> Chest: Chest palpation & inspection: normal inspection of the chest <KARLY Villarreal Last Filed: 12/23/20 11:20> Resp: Effort & Inspection: normal respiratory effort and no respiratory distress <KARLY Villarreal - Last Filed: 12/23/20 11:20> Cardio: Rate: regular rate <KARLY Villarreal - Last Filed: 12/23/20 11:20> Rhythm: regular rhythm <KARLY Villarreal - Last Filed: 12/23/20 11:20> GI: Palpation (GI): Soft to palpation and nontender <KARLY Villarreal - Last Filed: 12/23/20 11:20> : Other: mahoney present <KARLY Villarreal - Last Filed: 12/23/20 11:20> Skin: General skin exam: no rashes or lesions noted <KARLY Villarreal - Last Filed: 12/23/20 11:20> Neuro: General: patient oriented x3 <KARLY Villarreal - Last Filed: 12/23/20 11:20> Cranial nerves: Yes CN's II-XII intact bilaterally and Yes Bilaterally intact EOM present <KARLY Villarreal - Last Filed: 12/23/20 11:20> Extrem: Other: no leg edema <KARLY Villarreal - Last Filed: 12/23/20 11:20> Objective Data Current Medications Generic Name Dose Route Start Last Admin Trade Name Ketanq PRN Reason Stop Dose Admin Acetaminophen 650 mg 12/20/20 22:40 12/23/20 00:17 Acetaminophen 325 Mg Tablet PO 650 mg Q6H PRN Administration Pain, Mild (Pain Scale 1-3) Atorvastatin Calcium 80 mg 12/21/20 09:00 12/23/20 08:57 Atorvastatin Calcium 80 Mg Tablet PO 80 mg DAILY JOSE Administration Cilostazol 50 mg 12/21/20 09:00 12/23/20 08:58 Cilostazol 50 Mg Tablet PO 50 mg BID JOSE Administration Cyanocobalamin 1,000 mcg 12/21/20 09:00 12/23/20 08:57 Cyanocobalamin (Vitamin B-12) 1,000 Mcg Tablet PO 1,000 mcg DAILY JOSE Administration Docusate Sodium 100 mg 12/20/20 22:40 Docusate Sodium 100 Mg Capsule PO DAILY PRN Constipation Fluticasone/Vilanterol 1 puff 12/21/20 08:00 12/23/20 08:11 Fluticasone/Vilanterol 200/25 Blst.W.Dev INHALE 1 puff RBID JOSE Administration Furosemide 40 mg 12/20/20 22:40 12/23/20 08:11 Furosemide 40 Mg/4 Ml Vial IVPUSH 40 mg BID@0900,1800 [facility] Administration Protocol Lisinopril 5 mg 12/21/20 13:00 12/22/20 08:40 Lisinopril 5 Mg Tablet PO 5 mg BID [facility] Administration Protocol Metoprolol Succinate 50 mg 12/21/20 09:00 12/22/20 08:39 Metoprolol Succinate Er 50 Mg Tab.Er.24h PO 50 mg DAILY [facility] Administration Protocol Non-Formulary Medication 10 mg 12/21/20 09:00 Dalfampridine PO BID [facility] Non-Formulary Medication 30 mcg 12/20/20 22:40 Interferon Beta-1a [Avonex] IM Q7D [facility] Ondansetron HCl 4 mg 12/20/20 22:40 12/23/20 08:11 Ondansetron Hcl 4 Mg/2 Ml Vial IVPUSH 4 mg Q8H PRN Administration Nausea and Vomiting Pantoprazole Sodium 40 mg 12/22/20 16:30 12/23/20 06:23 Pantoprazole Sodium 40 Mg/10 Ml Vial IVPUSH 40 mg BID@0630,1630 [facility] Administration Paroxetine HCl 40 mg 12/21/20 09:00 12/23/20 08:57 Paroxetine Hcl 40 Mg Tablet PO 40 mg DAILY [facility] Administration Pharmacy Consult 1 each 12/20/20 21:45 Consult Rx Perform Med Rec MISCELLANE ONCE [facility] Sodium Chloride 3 ml 12/21/20 00:00 12/23/20 08:56 0.9 % Sodium Chloride Flush 3 Ml Syringe IVFLUSH 3 ml QSHIFT [facility] Administration Vitamin D 25 mcg 12/21/20 09:00 12/23/20 08:57 Cholecalciferol (Vitamin D3) 25 Mcg Tablet PO 25 mcg DAILY [facility] Administration <KARLY Villarreal - Last Filed: 12/23/20 11:20> Labs CBC & Chem 7: : 12/23/20 07:21 12/23/20 09:00 <KARLY Villarreal - Last Filed: 12/23/20 11:20> Microbiology Microbiology Results: Microbiology 12/20/20 19:03 Blood - Venous Blood Culture - Preliminary No growth after 48 hours. 12/20/20 17:12 Blood - Venous Blood Culture - Preliminary No growth after 48 hours. <KARLY Villarreal - Last Filed: 12/23/20 11:20> Assessment and Plan (1) CAD (coronary artery disease): Status: Acute <KARLY Villarreal - Last Filed: 12/23/20 11:20> (2) CHF (congestive heart failure): Status: Acute <KARLY Villarreal - Last Filed: 12/23/20 11:20> Assessment and Plan: This is a 65-year-old female with past medical history of CAD s/p stent, PVD s/p stents, COPD, MS who presents to the hospital with progressive dyspnea found to have uncontrolled HTN and hypoxia thought to be secondary to CHF acute hypoxic respiratory failure most likely r/t acute CHF acute systolic and diastolic CHF ECHO: Olsp-in-ghihppnn LV systolic dysfunction with grade 2 diastolic dysfunction with regional wall motion abnormality consistent with ischemic cardiomyopathy BNP down from 1956 to 784. - Will decrease lasix to daily - strict I&O, daily weight, low-sodium diet - Mahoney for fluid management - cardiology following NSTEMI Trop peaked at 127 Repeat EKG (12/22) with significant t wave inversion. denies any chest pain but symptoms of dyspnea similar to previous prior to stenting -statin, BB; resume ASA -d/c heparin drip due to episode of dark stool -echo results as above -cardiology following -[place] [facility] Episode of maroon stool H/H stable overnight, no further bleeding noted -Heparin d/c -follow CBC, check stool occult -GI consult pending HTN Elevated in 200s on arrival BP soft this morning -metoprolol, lisinopril doses decreased -nitro on hold. -Follow BP closely COPD - no acute exacerbation - continue home inhalers PVD continue ASA, pletal MS - no acute flare -dalfampridine NF Mood Continue paroxetine Gerd Continue omeprazole DVT ppx - mechanical devices This case was discussed with Dr. Love <KARLY Villarreal - Last Filed: 12/23/20 11:20>
[2020-12-23 10:15] LABS: Anion Gap 11 (12-20); Blood Urea Nitrogen 26 mg/dL (9-16); Calcium 8.9 mg/dL (8.4-10.2); Carbon Dioxide 30 mmol/L (22-29); Chloride 101 mmol/L (96-108); Creatinine Clr Calc Pharmacy 53.5; Estimated Glomerular Filt Rate 48; Glucose Random 104 mg/dL (60-115); Potassium 3.9 mmol/L (3.3-5.1); Sodium 138 mmol/L (135-145)
--- NOTE | 2020-12-23 12:16 | CONS_ITS ---
DATE OF SERVICE: 12/23/2020 REFERRING PHYSICIAN: Ibis Weston REASON FOR CONSULTATION: GI bleeding. HISTORY OF PRESENT ILLNESS: The patient is a pleasant 65-year-old woman, who was admitted to the hospital with shortness of breath and found to have [id number] NH. She was started on heparin and had 1 stool that was described as burgundy. Heparin was stopped and she has had no further burgundy stools. Laboratory studies have documented a hematocrit of 31.5 this morning, which is basically stable since admission. The patient denies any abdominal pain. She has not undergone previous colonoscopy. She has no upper GI symptoms. PAST MEDICAL HISTORY: 1. Myocardial infarction. 2. Coronary artery disease with history of stent placement. 3. Peripheral arterial disease. 4. Hypertension. 5. COPD. 6. Multiple sclerosis. 7. Stress urinary incontinence. 8. Pulmonary nodules. CURRENT MEDICATIONS: Current medication list is reviewed in the chart. ALLERGIES: CODEINE. FAMILY HISTORY: This is reviewed with the patient and is noncontributory. SOCIAL HISTORY: There is no current tobacco, alcohol, or substance abuse. REVIEW OF SYSTEMS: SKIN: No pruritus. HEENT: Negative. CARDIOPULMONARY: She denies shortness of breath or chest pain. GASTROINTESTINAL: As above. GENITOURINARY: Negative. NEUROPSYCHIATRIC: Negative. PHYSICAL EXAMINATION: GENERAL: Shows a pleasant female, lying comfortably in bed. VITAL SIGNS: Reviewed in the electronic medical record and are stable. SKIN: Anicteric. HEENT: No scleral icterus. NECK: Without lymphadenopathy or thyromegaly. LUNGS: Clear. HEART: Regular rate and rhythm. S1, S2. No murmur. ABDOMEN: Soft without focal masses or tenderness. Bowel sounds are present. No organomegaly is noted. EXTREMITIES: Without edema. LABORATORY DATA: Reviewed. IMPRESSION: Gastrointestinal bleeding. Her gastrointestinal bleeding episode occurred when her partial thromboplastin time was elevated above 200, suggesting this is related to over anticoagulation. The most likely source for this would be diverticular bleeding or hemorrhoids. At this point, she appears to be stable with no evidence of ongoing GI bleeding and her heparin has been discontinued. I would recommend monitoring her hematocrit. I would not recommend colonoscopy as it is unlikely to change her course of therapy at this point. If she does require cardiac catheterization and stent placement, then she will need to have her hematocrit monitored for any signs of GI bleeding. I would recommend continuing a proton pump inhibitor and following her clinically. Thanks for asking me to see her. I will follow her in the hospital with you. MD NIKITA Ramsey/SUNDAY / [id number] MTDD
--- NOTE | 2020-12-23 12:20 | PM.PNCARD ---
Subjective Subjective Date of Service: 12/23/20 Principal diagnosis: shortness of breath, ACS, CHF, ischemic CMP Interval history: Patient complain of nausea this morning. No more GI bleeding. Hematocrit has been stable. Denies any chest pain or shortness of breath. Blood pressure on the lower side today. Review of Systems Constitutional: Reports no additional constitutional complaints Cardiovascular: Reports no additional cardiovascular complaints Respiratory: Reports no additional respiratory complaints Gastrointestinal: Reports nausea Musculoskeletal: Reports no additional musculoskeletal complaints Reports system reviewed and no additional complaints, except as documented Psychiatric: Reports no additional psychiatric complaints Physical Exam Vital Signs: Last Vital Signs Temp 96.6 F L 12/23/20 08:00 Pulse 68 12/23/20 08:00 Resp 18 12/23/20 08:00 BP 100/57 L 12/23/20 08:00 Pulse Ox 96 12/23/20 08:00 Body Mass Index 30.7 Const General: cooperative, comfortable, no acute distress and tired appearing Nutritional Appearance: overweight Orientation/consciousness: patient oriented x3 Neck Neck: Yes trachea midline, Yes supple and Yes no JVD Resp Effort & Inspection: normal respiratory effort Auscultation: no rales, no wheezes and breath sounds absent (At bases) Cardio Jugular venous distension: no JVD Palpation: normal PMI Rate: regular rate Rhythm: regular rhythm Heart sounds: S1 normal heart sound present and S2 normal heart sound present Skin General skin exam: no rashes or lesions noted Neuro General: patient oriented x3 Extrem General: Yes no clubbing, cyanosis or edema Results Labs and Meds Result diagrams: 12/23/20 07:21 12/23/20 09:00 Lab results: Laboratory Results - last 24 hr 12/22/20 12/22/20 12/23/20 15:56 22:16 07:21 WBC 7.7 8.2 RBC 3.92 L 3.89 L Hgb 10.3 L 10.3 L Hct 32.9 L 32.4 L MCV 83.9 83.3 MCH 26.3 L 26.5 L MCHC 31.3 31.8 RDW 15.1 15.1 Plt Count 246 242 MPV 10.1 10.2 Immature Gran % (Auto) 0.3 0.2 Neut % (Auto) 74.9 H 67.6 Lymph % (Auto) 16.8 L 21.9 [place] % (Auto) 6.7 8.9 Eos % (Auto) 0.9 1.0 Baso % (Auto) 0.4 0.4 Lymph # (Auto) 1.3 1.8 [place] # (Auto) 0.5 0.7 Eos # (Auto) 0.1 0.1 Baso # (Auto) 0.0 0.0 Abs Immat Gran (auto) 0.02 0.02 Absolute Neuts (auto) 5.8 5.5 Absolute Nucleated RBC 0.000 0.000 Nucleated RBC % (auto) 0.0 0.0 Sodium 139 Potassium 3.9 Chloride 103 Carbon Dioxide 27 Anion Gap 13 BUN 25 H Creatinine 1.11 Estim Creat Clear Calc 54.4 Estimated GFR 49 Random Glucose 99 Calcium 8.5 12/23/20 12/23/20 07:21 09:00 WBC 6.8 RBC 3.84 L Hgb 9.9 L Hct 31.5 L MCV 82.0 MCH 25.8 L MCHC 31.4 RDW 15.0 Plt Count 221 MPV 10.3 Immature Gran % (Auto) 0.1 Neut % (Auto) 66.1 Lymph % (Auto) 22.6 [place] % (Auto) 8.7 Eos % (Auto) 1.9 Baso % (Auto) 0.6 Lymph # (Auto) 1.5 [place] # (Auto) 0.6 Eos # (Auto) 0.1 Baso # (Auto) 0.0 Abs Immat Gran (auto) 0.01 Absolute Neuts (auto) 4.5 Absolute Nucleated RBC 0.000 Nucleated RBC % (auto) 0.0 Sodium 138 Potassium 3.9 Chloride 101 Carbon Dioxide 30 H Anion Gap 11 L BUN 26 H Creatinine 1.13 Estim Creat Clear Calc 53.5 Estimated GFR 48 Random Glucose 104 Calcium 8.9 Progress Note: A&P Assessment and plan (1) CHF (congestive heart failure): Status: Acute Assessment and Plan: Acute CHF due to hypertensive crisis in the setting of LV systolic dysfunction underlying coronary artery disease. EKG suggestive ischemia also in the LAD territory. Echocardiogram suggestive of possible inferior infarction, in RCA stent closure. Will require cardiac catheterization, see below. Blood pressure is now on the lower side. Gentle neurohormonal modulation with lisinopril 2.5 mg daily and metoprolol 12.5 mg b.i.d.. Monitor blood pressure closely. Continue to monitor renal function. Can switch to low-dose Lasix 20 mg daily. Supportive care. Out of bed to chair. (2) NSTEMI (non-ST elevated myocardial infarction): Status: Acute Assessment and Plan: Elevated troponin setting of acute hypertensive crisis with heart failure. EKG and echocardiogram suggestive multivessel disease. Will require cardiac catheterization. However there was issue with drop in hematocrit and possible GI bleed. GI is evaluating the patient. Hold off on IV heparin at this point time. Continue low-dose aspirin therapy. If cleared by GI will pursue cardiac catheterization. Continue high-intensity statin therapy. Discontinue nitrate therapy. She is currently not having any active anginal symptoms. Low-dose metoprolol as above. Will follow with the patient Fall Risk Details Current Medications: Current Medications Generic Name Dose Route Start Last Admin Trade Name Freq PRN Reason Stop Dose Admin Acetaminophen 650 mg 12/20/20 22:40 12/23/20 00:17 Acetaminophen 325 Mg Tablet PO 650 mg Q6H PRN Administration Pain, Mild (Pain Scale 1-3) Aspirin 81 mg 12/24/20 09:00 Aspirin Enteric Coated 81 Mg Tablet.Dr PO DAILY [facility] Atorvastatin Calcium 80 mg 12/21/20 09:00 12/23/20 08:57 Atorvastatin Calcium 80 Mg Tablet PO 80 mg DAILY JOSE Administration Cilostazol 50 mg 12/21/20 09:00 12/23/20 08:58 Cilostazol 50 Mg Tablet PO 50 mg BID JOSE Administration Cyanocobalamin 1,000 mcg 12/21/20 09:00 12/23/20 08:57 Cyanocobalamin (Vitamin B-12) 1,000 Mcg Tablet PO 1,000 mcg DAILY [facility] Administration Docusate Sodium 100 mg 12/20/20 22:40 Docusate Sodium 100 Mg Capsule PO DAILY PRN Constipation Fluticasone/Vilanterol 1 puff 12/21/20 08:00 12/23/20 08:11 Fluticasone/Vilanterol 200/25 Blst.W.Dev INHALE 1 puff RBID [facility] Administration Furosemide 40 mg 12/24/20 09:00 Furosemide 40 Mg/4 Ml Vial IVPUSH DAILY [facility] Protocol Lisinopril 5 mg 12/24/20 09:00 Lisinopril 5 Mg Tablet PO DAILY [facility] Protocol Metoprolol Succinate 25 mg 12/24/20 09:00 Metoprolol Succinate Er 25 Mg Tab.Er.24h PO DAILY [facility] Protocol Non-Formulary Medication 10 mg 12/21/20 09:00 Dalfampridine PO BID [facility] Non-Formulary Medication 30 mcg 12/20/20 22:40 Interferon Beta-1a [Avonex] IM Q7D [facility] Ondansetron HCl 4 mg 12/20/20 22:40 12/23/20 08:11 Ondansetron Hcl 4 Mg/2 Ml Vial IVPUSH 4 mg Q8H PRN Administration Nausea and Vomiting Pantoprazole Sodium 40 mg 12/22/20 16:30 12/23/20 06:23 Pantoprazole Sodium 40 Mg/10 Ml Vial IVPUSH 40 mg BID@0630,1630 [facility] Administration Paroxetine HCl 40 mg 12/21/20 09:00 12/23/20 08:57 Paroxetine Hcl 40 Mg Tablet PO 40 mg DAILY [facility] Administration Pharmacy Consult 1 each 12/20/20 21:45 Consult Rx Perform Med Rec MISCELLANE ONCE [facility] Sodium Chloride 3 ml 12/21/20 00:00 12/23/20 08:56 0.9 % Sodium Chloride Flush 3 Ml Syringe IVFLUSH 3 ml QSHIFT [facility] Administration Vitamin D 25 mcg 12/21/20 09:00 12/23/20 08:57 Cholecalciferol (Vitamin D3) 25 Mcg Tablet PO 25 mcg DAILY [facility] Administration Time Spent With Patient Time: Total time spent is greater than 50% in coordination of care (as documented) at patient's floor/unit and/or counseling patient: Time with patient: 25 - 35 minutes Procedures Date of Service Date of Service: 12/23/20
[2020-12-23] MEDS: Aspirin 81 MG TAB.CHEW PO (14:30)
[2020-12-24] VITALS (9 sets, daily range): BP systolic 96–139; BP diastolic 54–70; PULSE 75–91; RESP 14–18; TEMP 36.3–36.9; O2SAT 95–100; BMI 31.1
[2020-12-24 05:40] LABS: MANUAL DIFF FLAG NO
[2020-12-24 05:54] LABS: Basophils Percent Auto 0.3 % (0-2); Eosinophils Absolute Auto 0.2 X10*3/uL (0.0-0.4); Eosinophils Percent Auto 2.2 % (0-4); Hematocrit 33.3 % (37-47); Hemoglobin 10.3 g/dl (12.0-16.0); Imm Gran Abs Auto 0.01 X10*3/uL (0.00-0.03); Imm Gran Pct Auto 0.1 % (0.0-0.4); Lymphocytes Absolute Auto 1.2 X10*3/uL (1.2-4.9); Lymphocytes Percent Auto 18.1 % (20-40); Mean Corpuscular HGB Conc 30.9 g/dl (31.0-35.0); Mean Corpuscular Hemoglobin 25.6 pg (27.0-33.0); Mean Corpuscular Volume 82.8 fL (80-98); Mean Platelet Volume 10.3 fL (9.4-12.3); Monocytes Absolute Auto 0.5 X10*3/uL (0.1-1.2); Monocytes Percent Auto 7.9 % (2-11); Neutrophils Absolute Auto 4.8 X10*3/uL (2.0-8.3); Neutrophils Percent Auto 71.4 % (45-73); Platelet Count 207 X10*3/uL (160-400); Red Blood Count 4.02 X10*6/uL (4.20-5.50); Red Cell Distribution Width 14.7 % (11.0-16.0); White Blood Count 6.7 X10*3/uL (4.8-10.8)
[2020-12-24 06:32] LABS: Anion Gap 13 (12-20); Blood Urea Nitrogen 23 mg/dL (9-16); Calcium 8.8 mg/dL (8.4-10.2); Carbon Dioxide 29 mmol/L (22-29); Chloride 99 mmol/L (96-108); Creatinine Clr Calc Pharmacy 60.8; Estimated Glomerular Filt Rate 55; Glucose Random 95 mg/dL (60-115); Potassium 3.8 mmol/L (3.3-5.1); Sodium 137 mmol/L (135-145)
[2020-12-24] MEDS: Fluticasone/Vilanterol 200/25 BLST.W.DEV 1 PUFF INHALE (07:23)
[2020-12-24] MEDS: cilostazoL 50 MG TABLET PO ×2 (09:37→21:55)
[2020-12-24] MEDS: 0.9 % Sodium Chloride Flush 3 ML SYRINGE IVFLUSH ×3 (09:37→21:55)
[2020-12-24] MEDS: Cyanocobalamin (Vitamin B-12) 1,000 MCG TABLET 1000 MCG PO (09:37)
[2020-12-24] MEDS: Furosemide 20 MG TABLET PO (09:37)
[2020-12-24] MEDS: Aspirin Enteric Coated 81 MG TABLET.DR PO (09:38)
[2020-12-24] MEDS: Atorvastatin Calcium 80 MG TABLET PO (09:38)
[2020-12-24] MEDS: PARoxetine HCL 40 MG TABLET PO (09:38)
[2020-12-24] MEDS: Metoprolol Succinate ER 25 MG TAB.ER.24H PO (09:39)
[2020-12-24] MEDS: Cholecalciferol (Vitamin D3) 25 MCG TABLET PO (09:39)
--- NOTE | 2020-12-24 11:20 | HO.PM.IMPN ---
Subjective Subjective Date of Service: 12/24/20 Interval History: f/u acute chf, uncontrolled HTN, NSTEMI No events overnight No SOB or CP. Feels tired Review of Systems Review of Systems: Yes all other systems are reviewed and are negative Constitutional Constitutional: Denies chills and Denies fever(s) Cardiovascular Cardiovascular: Denies chest pain Respiratory Respiratory: Denies cough Gastrointestinal Gastrointestinal: Denies abdominal pain Physical Exam Vital Signs: Vital Signs: Last Vital Signs Temp 97.3 F 12/24/20 08:00 Pulse 90 12/24/20 09:39 Resp 18 12/24/20 08:00 BP 139/66 12/24/20 09:39 Pulse Ox 95 12/24/20 09:41 Body Mass Index 31.1 Const: General: alert, awake and ill appearing Nutritional Appearance: overweight Orientation/consciousness: patient oriented x3 HENMT: Head: Yes normocephalic and Yes atraumatic Eyes: Sclerae: sclerae normal Chest: Chest palpation & inspection: normal inspection of the chest Resp: Effort & Inspection: normal respiratory effort, able to speak in complete sentences, decreased respiratory effort and no respiratory distress Auscultation: crackles, no wheezes and diminished lung sounds bilateral in the lower lung sutton Cardio: Rate: regular rate Rhythm: regular rhythm GI: Palpation (GI): Soft to palpation and nontender : Other: mahoney present Skin: General skin exam: no rashes or lesions noted Neuro: General: patient oriented x3 Cranial nerves: Yes CN's II-XII intact bilaterally and Yes Bilaterally intact EOM present Extrem: Other: no leg edema General: Yes normal to inspection Objective Data Current Medications Generic Name Dose Route Start Last Admin Trade Name Ketanq PRN Reason Stop Dose Admin Acetaminophen 650 mg 12/20/20 22:40 12/23/20 00:17 Acetaminophen 325 Mg Tablet PO 650 mg Q6H PRN Administration Pain, Mild (Pain Scale 1-3) Aspirin 81 mg 12/24/20 09:00 12/24/20 09:38 Aspirin Enteric Coated 81 Mg Tablet. PO 81 mg DAILY JOSE Administration Atorvastatin Calcium 80 mg 12/21/20 09:00 12/24/20 09:38 Atorvastatin Calcium 80 Mg Tablet PO 80 mg DAILY [facility] Administration Cilostazol 50 mg 12/21/20 09:00 12/24/20 09:37 Cilostazol 50 Mg Tablet PO 50 mg BID JOSE Administration Cyanocobalamin 1,000 mcg 12/21/20 09:00 12/24/20 09:37 Cyanocobalamin (Vitamin B-12) 1,000 Mcg Tablet PO 1,000 mcg DAILY [facility] Administration Docusate Sodium 100 mg 12/20/20 22:40 Docusate Sodium 100 Mg Capsule PO DAILY PRN Constipation Fluticasone/Vilanterol 1 puff 12/21/20 08:00 12/24/20 07:23 Fluticasone/Vilanterol 200/25 Blst.W.Dev INHALE 1 puff RBID [facility] Administration Furosemide 20 mg 12/24/20 09:00 12/24/20 09:37 Furosemide 20 Mg Tablet PO 20 mg DAILY [facility] Administration Protocol Lisinopril 2.5 mg 12/24/20 09:00 12/24/20 09:38 Lisinopril 2.5 Mg Tablet PO 2.5 mg DAILY [facility] Administration Protocol Metoprolol Succinate 25 mg 12/24/20 09:00 12/24/20 09:39 Metoprolol Succinate Er 25 Mg Tab.Er.24h PO 25 mg DAILY [facility] Administration Protocol Non-Formulary Medication 10 mg 12/21/20 09:00 Dalfampridine PO BID [facility] Non-Formulary Medication 30 mcg 12/20/20 22:40 Interferon Beta-1a [Avonex] IM Q7D [facility] Ondansetron HCl 4 mg 12/20/20 22:40 12/23/20 08:11 Ondansetron Hcl 4 Mg/2 Ml Vial IVPUSH 4 mg Q8H PRN Administration Nausea and Vomiting Paroxetine HCl 40 mg 12/21/20 09:00 12/24/20 09:38 Paroxetine Hcl 40 Mg Tablet PO 40 mg DAILY [facility] Administration Pharmacy Consult 1 each 12/20/20 21:45 Consult Rx Perform Med Rec MISCELLANE ONCE [facility] Sodium Chloride 3 ml 12/21/20 00:00 12/24/20 09:37 0.9 % Sodium Chloride Flush 3 Ml Syringe IVFLUSH 3 ml QSHIFT [facility] Administration Vitamin D 25 mcg 12/21/20 09:00 12/24/20 09:39 Cholecalciferol (Vitamin D3) 25 Mcg Tablet PO 25 mcg DAILY [facility] Administration Labs CBC & Chem 7: 12/24/20 05:17 12/24/20 05:17 Microbiology Microbiology Results: Microbiology 12/20/20 19:03 Blood - Venous Blood Culture - Preliminary No growth after 48 hours. 12/20/20 17:12 Blood - Venous Blood Culture - Preliminary No growth after 48 hours. Assessment and Plan (1) CAD (coronary artery disease): Status: Acute (2) CHF (congestive heart failure): Status: Acute Assessment and Plan: This is a 65-year-old female with past medical history of CAD s/p stent, PVD s/p stents, COPD, MS who presents to the hospital with progressive dyspnea found to have uncontrolled HTN and hypoxia thought to be secondary to CHF acute hypoxic respiratory failure most likely r/t acute CHF acute systolic and diastolic CHF ECHO: [id number] LV systolic dysfunction with grade 2 diastolic dysfunction with regional wall motion abnormality consistent with ischemic cardiomyopathy BNP down from 1955 trending down - Transitioned to PO lasix - strict I&O, daily weight, low-sodium diet - Mahoney for fluid management - cardiology following NSTEMI Trop peaked at 127 Repeat EKG (12/22) with significant t wave inversion. denies any chest pain but symptoms of dyspnea similar to previous prior to stenting -Continue statin, BB, ASA -heparin drip d/c due to episode of dark stool -echo results as above -cardiology following -plan for transfer to [facility] for cath Friday (12/25) Episode of maroon stool H/H has remained stable, no further bleeding noted Seen by GI, episode of bleeding likely r/t elevated PTT on heparin drip, no further work up indicated at this time Monitor for bleeding if further AC necessary HTN Elevated in 200s on arrival BP under good control -Continue metoprolol, lisinopril -Follow BP closely COPD - no acute exacerbation - continue home inhalers PVD continue pletal, ASA MS - no acute flare -dalfampridine NF Mood Continue paroxetine Gerd Continue omeprazole DVT ppx - mechanical devices This case was discussed with Dr. Love
--- NOTE | 2020-12-24 11:30 | PM.PNCARD ---
Subjective Subjective Date of Service: 12/24/20 Principal diagnosis: shortness of breath, ACS, CHF, ischemic CMP Interval history: No cardiac symptoms to report. Denies chest pain or shortness of breath. Hemodynamically stable. She has had a GI consult they do not feel there is an acute GI bleed at this point time. Renal function stable. Hematocrit is stable. Review of Systems Review of Systems Yes all other systems are reviewed and are negative Physical Exam Vital Signs: Last Vital Signs Temp 97.3 F 12/24/20 08:00 Pulse 90 12/24/20 09:39 Resp 18 12/24/20 08:00 BP 139/66 12/24/20 09:39 Pulse Ox 95 12/24/20 09:41 Body Mass Index 31.1 Const General: cooperative, comfortable, no acute distress, alert and awake Nutritional Appearance: overweight Orientation/consciousness: patient oriented x3 Neck Neck: Yes trachea midline, Yes supple and Yes no JVD Resp Effort & Inspection: decreased respiratory effort Auscultation: clear to auscultation bilaterally and diminished lung sounds Cardio Jugular venous distension: no JVD Palpation: normal PMI Rate: regular rate Rhythm: regular rhythm Heart sounds: S1 normal heart sound present and S2 normal heart sound present GI Auscultation: normal bowel sounds Skin General skin exam: no rashes or lesions noted Neuro General: patient oriented x3 Extrem General: Yes no clubbing, cyanosis or edema Psych Appearance: grossly normal Affect: Depressed mood present Results Labs and Meds Result diagrams: 12/24/20 05:17 12/24/20 05:17 Lab results: Laboratory Results - last 24 hr 12/24/20 12/24/20 05:17 05:17 WBC 6.7 RBC 4.02 L Hgb 10.3 L Hct 33.3 L MCV 82.8 MCH 25.6 L MCHC 30.9 L RDW 14.7 Plt Count 207 MPV 10.3 Immature Gran % (Auto) 0.1 Neut % (Auto) 71.4 Lymph % (Auto) 18.1 L [place] % (Auto) 7.9 Eos % (Auto) 2.2 Baso % (Auto) 0.3 Lymph # (Auto) 1.2 [place] # (Auto) 0.5 Eos # (Auto) 0.2 Baso # (Auto) 0.0 Abs Immat Gran (auto) 0.01 Absolute Neuts (auto) 4.8 Absolute Nucleated RBC 0.000 Nucleated RBC % (auto) 0.0 Sodium 137 Potassium 3.8 Chloride 99 Carbon Dioxide 29 Anion Gap 13 BUN 23 H Creatinine 1.00 Estim Creat Clear Calc 60.8 Estimated GFR 55 Random Glucose 95 Calcium 8.8 Progress Note: A&P Assessment and plan (1) CHF (congestive heart failure): Status: Acute Assessment and Plan: Congestive heart failure, clinically euvolemic and well compensated. Most likely related to hypertensive urgency in setting of underlying significant coronary disease and subendocardial stress. This is improved significantly. Continue current diuretic regimen. Continue current neurohormonal modulation as well. Heart failure management was discussed. Will require cardiac catheterization, see below. (2) NSTEMI (non-ST elevated myocardial infarction): Status: Acute Assessment and Plan: Hypertensive urgency leading to acute coronary syndrome and congestive heart failure which appears to be ischemic in nature. EKG changes suggestive of LAD territory ischemia. Interestingly she has difference in blood pressure with right greater than left in her upper arms. She will need cardiac catheterization. Will be transferred to [facility] tomorrow for cardiac catheterization. Continue to trend hematocrit. Currently not having any active bleeding issues. Low-dose aspirin therapy to continue. Continue high-intensity statin therapy. Blood pressure is optimal, continue current therapy. Patient was explained the risks, benefits, alternatives to the procedure. She understands agrees. Fall Risk Details Current Medications: Current Medications Generic Name Dose Route Start Last Admin Trade Name Freq PRN Reason Stop Dose Admin Acetaminophen 650 mg 12/20/20 22:40 12/23/20 00:17 Acetaminophen 325 Mg Tablet PO 650 mg Q6H PRN Administration Pain, Mild (Pain Scale 1-3) Aspirin 81 mg 12/24/20 09:00 12/24/20 09:38 Aspirin Enteric Coated 81 Mg Tablet. PO 81 mg DAILY JO[facility] Administration Atorvastatin Calcium 80 mg 12/21/20 09:00 12/24/20 09:38 Atorvastatin Calcium 80 Mg Tablet PO 80 mg DAILY [facility] Administration Cilostazol 50 mg 12/21/20 09:00 12/24/20 09:37 Cilostazol 50 Mg Tablet PO 50 mg BID JOSE Administration Cyanocobalamin 1,000 mcg 12/21/20 09:00 12/24/20 09:37 Cyanocobalamin (Vitamin B-12) 1,000 Mcg Tablet PO 1,000 mcg DAILY [facility] Administration Docusate Sodium 100 mg 12/20/20 22:40 Docusate Sodium 100 Mg Capsule PO DAILY PRN Constipation Fluticasone/Vilanterol 1 puff 12/21/20 08:00 12/24/20 07:23 Fluticasone/Vilanterol 200/25 Blst.W.Dev INHALE 1 puff RBID JOSE Administration Furosemide 20 mg 12/24/20 09:00 12/24/20 09:37 Furosemide 20 Mg Tablet PO 20 mg DAILY [facility] Administration Protocol Lisinopril 2.5 mg 12/24/20 09:00 12/24/20 09:38 Lisinopril 2.5 Mg Tablet PO 2.5 mg DAILY [facility] Administration Protocol Metoprolol Succinate 25 mg 12/24/20 09:00 12/24/20 09:39 Metoprolol Succinate Er 25 Mg Tab.Er.24h PO 25 mg DAILY [facility] Administration Protocol Non-Formulary Medication 10 mg 12/21/20 09:00 Dalfampridine PO BID [facility] Non-Formulary Medication 30 mcg 12/20/20 22:40 Interferon Beta-1a [Avonex] IM Q7D [facility] Ondansetron HCl 4 mg 12/20/20 22:40 12/23/20 08:11 Ondansetron Hcl 4 Mg/2 Ml Vial IVPUSH 4 mg Q8H PRN Administration Nausea and Vomiting Paroxetine HCl 40 mg 12/21/20 09:00 12/24/20 09:38 Paroxetine Hcl 40 Mg Tablet PO 40 mg DAILY [facility] Administration Pharmacy Consult 1 each 12/20/20 21:45 Consult Rx Perform Med Rec MISCELLANE ONCE [facility] Sodium Chloride 3 ml 12/21/20 00:00 12/24/20 09:37 0.9 % Sodium Chloride Flush 3 Ml Syringe IVFLUSH 3 ml QSHIFT [facility] Administration Vitamin D 25 mcg 12/21/20 09:00 12/24/20 09:39 Cholecalciferol (Vitamin D3) 25 Mcg Tablet PO 25 mcg DAILY [facility] Administration Time Spent With Patient Time: Total time spent is greater than 50% in coordination of care (as documented) at patient's floor/unit and/or counseling patient: Time with patient: 25 - 35 minutes Procedures Date of Service Date of Service: 12/24/20
--- NOTE | 2020-12-24 11:58 | PM.GIPN ---
Subjective Subjective Date of Service: 12/24/20 Interval History: no complaints of abdominal pain Physical Exam Vital Signs: Vital Signs: Last Vital Signs Temp 97.3 F 12/24/20 08:00 Pulse 90 12/24/20 09:39 Resp 18 12/24/20 08:00 BP 139/66 12/24/20 09:39 Pulse Ox 95 12/24/20 09:41 Body Mass Index 31.1 Const: General: no acute distress GI: Other: abdomen soft and nontender Objective Data Labs CBC & Chem 7: 12/24/20 05:17 12/24/20 05:17 Progress Note: A&P Assessment and plan (1) Rectal bleeding: Status: Acute Assessment and Plan: no further bleeding off heparin monitor hematocrit Time Spent With Patient Time: Total time spent is greater than 50% in coordination of care (as documented) at patient's floor/unit and/or counseling patient: Time with patient: less than 15 minutes Procedures Date of Service Date of Service: 12/24/20
[2020-12-24] MEDS: Omeprazole 40 MG CAPSULE.DR PO (13:07)
[2020-12-25] VITALS (8 sets, daily range): BP systolic 104–110; BP diastolic 53–73; PULSE 73–90; RESP 18–20; TEMP 36.4–37.2; O2SAT 93–98
--- NOTE | 2020-12-25 | ECG_ITS ---
Test Reason : ACS SOB Blood Pressure : / mmHG Vent. Rate : 070 BPM Atrial Rate : 070 BPM P-R Int : 156 ms QRS Dur : 092 ms QT Int : 444 ms P-R-T Axes : 019 -16 145 degrees QTc Int : 479 ms Normal sinus rhythm Left ventricular hypertrophy with repolarization abnormality Inferior infarct (cited on or before 20-DEC-2020) Abnormal ECG When compared with ECG of 22-DEC-2020 10:01, T wave inversion less evident in Anterior leads QT has shortened Referred By: Garfield Knight Electronically Signed By:GARFIELD KNIGHT
[2020-12-25] MEDS: Acetaminophen 325 MG TABLET 650 MG PO ×2 (00:32→09:01)
[2020-12-25] MEDS: Omeprazole 40 MG CAPSULE.DR PO (05:59)
[2020-12-25 06:41] LABS: MANUAL DIFF FLAG NO
[2020-12-25 06:51] LABS: Basophils Percent Auto 0.6 % (0-2); Eosinophils Absolute Auto 0.2 X10*3/uL (0.0-0.4); Eosinophils Percent Auto 2.5 % (0-4); Hematocrit 31.6 % (37-47); Imm Gran Abs Auto 0.01 X10*3/uL (0.00-0.03); Imm Gran Pct Auto 0.1 % (0.0-0.4); Lymphocytes Absolute Auto 1.4 X10*3/uL (1.2-4.9); Lymphocytes Percent Auto 20.7 % (20-40); Mean Corpuscular HGB Conc 31.6 g/dl (31.0-35.0); Mean Corpuscular Hemoglobin 25.9 pg (27.0-33.0); Mean Corpuscular Volume 81.9 fL (80-98); Mean Platelet Volume 10.1 fL (9.4-12.3); Monocytes Absolute Auto 0.7 X10*3/uL (0.1-1.2); Monocytes Percent Auto 9.7 % (2-11); Neutrophils Absolute Auto 4.5 X10*3/uL (2.0-8.3); Neutrophils Percent Auto 66.4 % (45-73); Platelet Count 225 X10*3/uL (160-400); Red Blood Count 3.86 X10*6/uL (4.20-5.50); Red Cell Distribution Width 14.6 % (11.0-16.0); White Blood Count 6.8 X10*3/uL (4.8-10.8)
[2020-12-25] MEDS: Fluticasone/Vilanterol 200/25 BLST.W.DEV 1 PUFF INHALE ×2 (07:19)
[2020-12-25 07:27] LABS: Anion Gap 12 (12-20); Blood Urea Nitrogen 24 mg/dL (9-16); Carbon Dioxide 32 mmol/L (22-29); Chloride 97 mmol/L (96-108); Creatinine Clr Calc Pharmacy 58.5; Estimated Glomerular Filt Rate 53; Glucose Random 102 mg/dL (60-115); Potassium 3.8 mmol/L (3.3-5.1); Sodium 137 mmol/L (135-145)
--- NOTE | 2020-12-25 07:45 | P.DS_ITS ---
DS: Providers Provider Date of Service: 12/25/20 Date of admission: 12/20/20 22:18 Primary care physician: Unknown Physician Consults: 12/20/20 22:40 Consult to Cardiology Routine Consulting Provider: John Lizama Reason for consultation: CHF Has provider been notified: Yes 12/22/20 10:42 Consult to Gastroenterology Routine Consulting Provider: [place] Reynoso Reason for consultation: GIB; on heparin for NSTEMI Has provider been notified: No DS: Diagnosis Discharge Diagnosis (1) Rectal bleeding: Status: Acute (2) NSTEMI (non-ST elevated myocardial infarction): Status: Acute (3) Acute and chronic respiratory failure with hypoxia: Status: Acute (4) Acute on chronic systolic (congestive) heart failure: Status: Acute (5) CAD (coronary artery disease): Status: Acute (6) Hypertensive crisis: Status: Acute DS: Medications Discharge Medications Home Medications: Home Medications Medication Instructions Recorded Confirmed dalfampridine 10 mg 10 mg PO BID 10/03/20 12/20/20 tablet,extended release,12 hr interferon beta-1a 30 mcg/0.5 mL 30 mcg IM Q7D 10/03/20 12/20/20 intramuscular pen kit paroxetine HCl 40 mg tablet 40 mg PO DAILY 10/03/20 12/20/20 cholecalciferol (vitamin D3) 25 mcg PO DAILY 12/20/20 12/20/20 [Vitamin D3] cyanocobalamin (vitamin B-12) 1,000 mcg PO DAILY 12/20/20 12/20/20 [Vitamin B-12] omeprazole 20 mg PO DAILY@0630 12/20/20 12/20/20 Previous Rx's Medication Instructions Recorded aspirin 81 mg tablet,delayed 81 mg PO DAILY #90 tab 11/01/20 release budesonide-formoterol HFA 160 2 puff INHALATION BID 30 Days 11/13/20 mcg-4.5 mcg/actuation aerosol #10.2 g inhaler cilostazol 50 mg tablet 50 mg PO BID #180 tab 11/19/20 atorvastatin 80 mg tablet 80 mg PO DAILY #90 tab 11/22/20 lisinopril 2.5 mg PO DAILY #30 tab 12/25/20 metoprolol succinate 25 mg PO DAILY #90 tab 12/25/20 omeprazole 40 mg PO DAILY@0630 #30 cap 12/25/20 DS: Summary Hospital Course Hospital Course: patient was admitted for acute hypoxic respiratory failure due to acute on chronic systolic chf and NSTEMI, she was diuresed and given IV heparin, however, after developing black stools, heparin was discontinued. she was treated conservatively with ppi and hgb remained stable. she was seem by GI who felt no benefit for scope at this time. her echo showed mild to moderate systolic dysfunction with grade 2 diastolic dysfuynction. she was seen by cardiology who [place] [facility] [place]. Time Spent with Patient Time attestation: Total time spent providing and/or coordinating discharge services: Discharge coordination time: Greater than 30 minutes Physical Exam Vital Signs: Vital Signs: Last Vital Signs Temp 97.6 F 12/25/20 03:51 Pulse 78 12/25/20 03:51 Resp 18 12/25/20 03:51 BP 104/58 L 12/25/20 03:51 Pulse Ox 96 12/25/20 03:51 Body Mass Index 31.1 General: AO X 3, no acute distress Resp: CTA bilateral CVS: S1,S2,RRR GI: soft, non tender, non distended Neuro: motor grossly intact Psych: appropriate affect DS: Data Data Completed and Pending Labs on day of discharge: Laboratory Results - last 24 hr 12/25/20 12/25/20 06:25 06:25 WBC 6.8 RBC 3.86 L Hgb 10.0 L Hct 31.6 L MCV 81.9 MCH 25.9 L MCHC 31.6 RDW 14.6 Plt Count 225 MPV 10.1 Immature Gran % (Auto) 0.1 Neut % (Auto) 66.4 Lymph % (Auto) 20.7 [place] % (Auto) 9.7 Eos % (Auto) 2.5 Baso % (Auto) 0.6 Lymph # (Auto) 1.4 [place] # (Auto) 0.7 Eos # (Auto) 0.2 Baso # (Auto) 0.0 Abs Immat Gran (auto) 0.01 Absolute Neuts (auto) 4.5 Absolute Nucleated RBC 0.000 Nucleated RBC % (auto) 0.0 Sodium 137 Potassium 3.8 Chloride 97 Carbon Dioxide 32 H Anion Gap 12 BUN 24 H Creatinine 1.04 Estim Creat Clear Calc 58.5 Estimated GFR 53 Random Glucose 102 Calcium 9.0 Preliminary micro results at discharge 12/20/20 19:03 Blood Culture - Preliminary Blood - Venous No growth after 48 hours. 12/20/20 17:12 Blood Culture - Preliminary Blood - Venous No growth after 48 hours. Discharge Plan Discharge Patient Disposition: [facility] Referrals: Physician,Unknown [Primary Care Provider] - Discharge Medications: New lisinopril 2.5 mg Tablet 2.5 mg PO DAILY Qty: 30 RF: 0 omeprazole 40 mg Capsule,Delayed Release(Dr/Ec) 40 mg PO DAILY@0630 Qty: 30 RF: 0 Continued aspirin 81 mg tablet,delayed release (DR/EC) 81 mg PO DAILY Qty: 90 RF: 0 cilostazol 50 mg tablet 50 mg PO BID Qty: 180 RF: 1 atorvastatin 80 mg tablet 80 mg PO DAILY Qty: 90 RF: 1 cyanocobalamin (vitamin B-12) [Vitamin B-12] 1,000 mcg Tablet 1,000 mcg PO DAILY RF: 0 cholecalciferol (vitamin D3) [Vitamin D3] 25 mcg (1,000 unit) Tablet 25 mcg PO DAILY RF: 0 omeprazole 20 mg capsule,delayed release(DR/EC) 20 mg PO DAILY@0630 RF: 0 paroxetine HCl 40 mg tablet 40 mg PO DAILY RF: 0 dalfampridine 10 mg tablet extended release 12 hr 10 mg PO BID RF: 0 Avonex 30 mcg/0.5 mL pen injector kit 30 mcg IM Q7D RF: 0 budesonide-formoterol 160-4.5 mcg/actuation HFA aerosol inhaler 2 puff inhalation BID 30 Days Qty: 10.2 RF: 3 Changed metoprolol succinate 50 mg tablet extended release 24 hr 25 mg PO DAILY Qty: 90 RF: 1 Discontinued oxybutynin chloride 5 mg tablet 5 mg PO BID RF: 0 Activity on Discharge: As tolerated Stand Alone Forms: Patient Portal Discharge page Care Plan Goals: revascularization Health Concerns: acs, gi bleed Plan of Treatment: transfer to [facility] [place]
[2020-12-25] MEDS: cilostazoL 50 MG TABLET PO ×2 (08:48→20:00)
[2020-12-25] MEDS: Atorvastatin Calcium 80 MG TABLET PO (08:49)
[2020-12-25] MEDS: PARoxetine HCL 40 MG TABLET PO (08:51)
[2020-12-25] MEDS: Metoprolol Succinate ER 25 MG TAB.ER.24H PO (08:51)
[2020-12-25] MEDS: Cyanocobalamin (Vitamin B-12) 1,000 MCG TABLET 1000 MCG PO (08:51)
[2020-12-25] MEDS: Aspirin Enteric Coated 81 MG TABLET.DR PO (08:51)
[2020-12-25] MEDS: Cholecalciferol (Vitamin D3) 25 MCG TABLET PO (08:51)
[2020-12-25] MEDS: Furosemide 20 MG TABLET PO (08:51)
[2020-12-25] MEDS: 0.9 % Sodium Chloride Flush 3 ML SYRINGE IVFLUSH ×2 (08:52→17:04)
[2020-12-25] MEDS: ondansetron HCL 4 MG/2 ML VIAL IVPUSH (09:01)
--- NOTE | 2020-12-25 09:41 | P.PNCA_ITS ---
Subjective Subjective Date of Service: 12/25/20 Principal diagnosis: shortness of breath, ACS, CHF, ischemic CMP Interval history: She states that she just does not feel well overall. However, no anginal-type symptoms. Review of Systems Review of Systems Yes all other systems are reviewed and are negative Cardiovascular: Reports as per HPI, Reports no additional cardiovascular complaints, Denies acrocyanosis, Denies cool extremities, Denies painful fingertips, Denies chest pain, Denies chest pain at rest, Denies diaphoresis, Denies syncope, Denies irregular heart rhythm, Denies claudication, Denies leg edema, Denies lightheadedness, Denies palpitations and Reports dyspnea Respiratory: Reports dyspnea Denies syncope Endocrine: Denies palpitations Physical Exam Vital Signs: Last Vital Signs Temp 97.9 F 12/25/20 07:47 Pulse 73 12/25/20 08:51 Resp 18 12/25/20 07:47 BP 106/64 12/25/20 08:51 Pulse Ox 93 12/25/20 07:47 Body Mass Index 31.1 Const General: cooperative, comfortable and no acute distress Orientation/consciousness: patient oriented x3 HENMT Other: Unremarkable Neck Neck: Yes normal visual inspection Chest Chest palpation & inspection: normal inspection of the chest Resp Auscultation: clear to auscultation bilaterally, no crackles and no wheezes Cardio Jugular venous distension: no JVD Palpation: normal PMI Heart sounds: S1 normal heart sound present, S2 normal heart sound present, no gallops, no murmurs and no rubs GI Palpation (GI): Soft to palpation Back/Spine/Pelvis Other: unremarkable Skin General skin exam: no rashes or lesions noted Neuro General: patient oriented x3 Extrem General: Yes no clubbing, cyanosis or edema Psych Mental Status: mental status grossly normal Results Labs and Meds Result diagrams: 12/25/20 06:25 12/25/20 06:25 Lab results: Laboratory Results - last 24 hr 12/25/20 12/25/20 06:25 06:25 WBC 6.8 RBC 3.86 L Hgb 10.0 L Hct 31.6 L MCV 81.9 MCH 25.9 L MCHC 31.6 RDW 14.6 Plt Count 225 MPV 10.1 Immature Gran % (Auto) 0.1 Neut % (Auto) 66.4 Lymph % (Auto) 20.7 [place] % (Auto) 9.7 Eos % (Auto) 2.5 Baso % (Auto) 0.6 Lymph # (Auto) 1.4 [place] # (Auto) 0.7 Eos # (Auto) 0.2 Baso # (Auto) 0.0 Abs Immat Gran (auto) 0.01 Absolute Neuts (auto) 4.5 Absolute Nucleated RBC 0.000 Nucleated RBC % (auto) 0.0 Sodium 137 Potassium 3.8 Chloride 97 Carbon Dioxide 32 H Anion Gap 12 BUN 24 H Creatinine 1.04 Estim Creat Clear Calc 58.5 Estimated GFR 53 Random Glucose 102 Calcium 9.0 Progress Note: A&P Assessment and plan (1) NSTEMI (non-ST elevated myocardial infarction): Status: Acute (2) Acute diastolic (congestive) heart failure: Status: Acute (3) Hypertensive emergency: Status: Acute Assessment and Plan: Recent hypertensive urgency it in the setting of known coronary disease. She still has nonspecific symptoms like malaise and some shortness of breath but no clear anginal-type symptoms. Also has peripheral vascular disease. As previously arranged, will transfer her to [facility] for further workup with cardiac catheterization. Blood pressure seems stabilized at this time. Fall Risk Details Current Medications: Current Medications Generic Name Dose Route Start Last Admin Trade Name Freq PRN Reason Stop Dose Admin Acetaminophen 650 mg 12/20/20 22:40 12/25/20 09:01 Acetaminophen 325 Mg Tablet PO 650 mg Q6H PRN Administration Pain, Mild (Pain Scale 1-3) Aspirin 81 mg 12/24/20 09:00 12/25/20 08:51 Aspirin Enteric Coated 81 Mg Tablet. PO 81 mg DAILY JOSE Administration Atorvastatin Calcium 80 mg 12/21/20 09:00 12/25/20 08:49 Atorvastatin Calcium 80 Mg Tablet PO 80 mg DAILY JOSE Administration Cilostazol 50 mg 12/21/20 09:00 12/25/20 08:48 Cilostazol 50 Mg Tablet PO 50 mg BID JOSE Administration Cyanocobalamin 1,000 mcg 12/21/20 09:00 12/25/20 08:51 Cyanocobalamin (Vitamin B-12) 1,000 Mcg Tablet PO 1,000 mcg DAILY JOSE Administration Docusate Sodium 100 mg 12/20/20 22:40 Docusate Sodium 100 Mg Capsule PO DAILY PRN Constipation Fluticasone/Vilanterol 1 puff 12/21/20 08:00 12/25/20 07:19 Fluticasone/Vilanterol 200/25 Blst.W.Dev INHALE 1 puff RBID JOSE Administration Furosemide 20 mg 12/24/20 09:00 12/25/20 08:51 Furosemide 20 Mg Tablet PO 20 mg DAILY JOSE Administration Protocol Lisinopril 2.5 mg 12/24/20 09:00 12/25/20 08:50 Lisinopril 2.5 Mg Tablet PO 2.5 mg DAILY JOSE Administration Protocol Metoprolol Succinate 25 mg 12/24/20 09:00 12/25/20 08:51 Metoprolol Succinate Er 25 Mg Tab.Er.24h PO 25 mg DAILY JOSE Administration Protocol Non-Formulary Medication 10 mg 12/21/20 09:00 Dalfampridine PO BID [facility] Non-Formulary Medication 30 mcg 12/20/20 22:40 Interferon Beta-1a [Avonex] IM Q7D [facility] Omeprazole 40 mg 12/24/20 12:00 12/25/20 05:59 Omeprazole 40 Mg Capsule.Dr PO 40 mg DAILY@0630 JOSE Administration Ondansetron HCl 4 mg 12/20/20 22:40 12/25/20 09:01 Ondansetron Hcl 4 Mg/2 Ml Vial IVPUSH 4 mg Q8H PRN Administration Nausea and Vomiting Paroxetine HCl 40 mg 12/21/20 09:00 12/25/20 08:51 Paroxetine Hcl 40 Mg Tablet PO 40 mg DAILY JOSE Administration Pharmacy Consult 1 each 12/20/20 21:45 Consult Rx Perform Med Rec MISCELLANE ONCE [facility] Sodium Chloride 3 ml 12/21/20 00:00 12/25/20 08:52 0.9 % Sodium Chloride Flush 3 Ml Syringe IVFLUSH 3 ml QSHIFT JOSE Administration Vitamin D 25 mcg 12/21/20 09:00 12/25/20 08:51 Cholecalciferol (Vitamin D3) 25 Mcg Tablet PO 25 mcg DAILY JOSE Administration Time Spent With Patient Time: Total time spent is greater than 50% in coordination of care (as documented) at patient's floor/unit and/or counseling patient: Time with patient: 15 - 24 minutes Procedures Date of Service Date of Service: 12/25/20
--- NOTE | 2020-12-25 10:25 | MHC.CM.PN ---
PATIENT IS AN ACUTE CARE TRANSFER TO [facility]. IMM 12/24 IN CHART.
== END 2020-12-25 20:19 | disposition short-term general hospital (02) | DRG 280 ==
LOC: HO.ED 22:00 → HO.S3 23:16
PROVIDERS: Family Medicine; Nurse Practitioner Primary Care; Physician Assistant Medical; Admitting Provider Internal Medicine; Emergency Provider Emergency Medicine; PCP Internal Medicine; Visit Provider Internal Medicine
DX: I11.0 Hypertensive heart disease with heart failure (principal); I21.4 Non-ST elevation (NSTEMI) myocardial infarction; J96.01 Acute respiratory failure with hypoxia; I50.31 Acute diastolic (congestive) heart failure; I16.9 Hypertensive crisis, unspecified; K92.1 Melena; I25.10 Atherosclerotic heart disease of native coronary artery without angina pectoris; G35 Multiple sclerosis; K21.9 Gastro-esophageal reflux disease without esophagitis; I73.9 Peripheral vascular disease, unspecified; Z20.822 Contact with and (suspected) exposure to COVID-19; Z79.82 Long term (current) use of aspirin; Z79.899 Other long term (current) drug therapy
CPT/HCPCS: 0241U; 36415; 71045; 71275; 80048; 80053; 81001; 82728; 82803; 83605; 83615; 83735; 83880; 84145; 84484; 85014; 85018; 85025; 85027; 85379; 85610; 85730; 86140; 87040; 93005; 93306; 93925; 94640; 96374; 99285; C1758; J1940; J2405; J2930; Q9967

== ENCOUNTER → 2021-01-15 13:29 | Outpatient (BNVA) | payer MEDICARE, BC, SELFPAY | PROVIDERS: Visit Provider Nurse Practitioner Family | DX: R06.00 Dyspnea, unspecified (principal); I70.1 Atherosclerosis of renal artery; I99.8 Other disorder of circulatory system; I50.9 Heart failure, unspecified; I25.10 Atherosclerotic heart disease of native coronary artery without angina pectoris; I21.4 Non-ST elevation (NSTEMI) myocardial infarction; Z98.890 Other specified postprocedural states; Z79.899 Other long term (current) drug therapy | CPT/HCPCS: 99212 ==

== ENCOUNTER 2021-01-26 14:58 | Outpatient (REF) | payer MEDICARE, BC, SELFPAY ==
[2021-01-26 15:45] LABS: MANUAL DIFF FLAG NO
[2021-01-26 15:48] LABS: Basophils Percent Auto 0.6 % (0-2); Eosinophils Absolute Auto 0.1 X10*3/uL (0.0-0.4); Eosinophils Percent Auto 1.9 % (0-4); Hematocrit 35.3 % (37-47); Hemoglobin 10.8 g/dl (12.0-16.0); Imm Gran Abs Auto 0.01 X10*3/uL (0.00-0.03); Imm Gran Pct Auto 0.1 % (0.0-0.4); Lymphocytes Absolute Auto 1.7 X10*3/uL (1.2-4.9); Lymphocytes Percent Auto 24.2 % (20-40); Mean Corpuscular HGB Conc 30.6 g/dl (31.0-35.0); Mean Corpuscular Hemoglobin 25.4 pg (27.0-33.0); Mean Corpuscular Volume 83.1 fL (80-98); Monocytes Absolute Auto 0.5 X10*3/uL (0.1-1.2); Monocytes Percent Auto 7.4 % (2-11); Neutrophils Absolute Auto 4.6 X10*3/uL (2.0-8.3); Neutrophils Percent Auto 65.8 % (45-73); Platelet Count 284 X10*3/uL (160-400); Red Blood Count 4.25 X10*6/uL (4.20-5.50); Red Cell Distribution Width 15.2 % (11.0-16.0); White Blood Count 6.9 X10*3/uL (4.8-10.8)
[2021-01-26 16:03] LABS: Alanine Aminotransferase 11 U/L (0-31); Aspartate Amino Transferase 13 U/L (5-31); Cholesterol 147 mg/dL; HDL Cholesterol 74 mg/dL; LDL Cholesterol Calculated 65 mg/dl; Triglycerides 41 mg/dL
== END 2021-01-26 14:59 | disposition home or self-care (01) ==
LOC: HO.LAB 14:58
PROVIDERS: PCP Internal Medicine; Visit Provider Nurse Practitioner Family
DX: I21.4 Non-ST elevation (NSTEMI) myocardial infarction (principal); K62.5 Hemorrhage of anus and rectum; I25.10 Atherosclerotic heart disease of native coronary artery without angina pectoris
CPT/HCPCS: 36415; 80061; 84450; 84460; 85025

== ENCOUNTER → 2021-02-13 14:19 | Outpatient (BNVA) | payer MEDICARE, BC, SELFPAY | PROVIDERS: PCP Internal Medicine; Visit Provider Surgery Vascular Surgery | DX: I77.9 Disorder of arteries and arterioles, unspecified (principal); I70.1 Atherosclerosis of renal artery | CPT/HCPCS: 99212 ==

== ENCOUNTER → 2021-02-14 14:24 | Outpatient (BNVA) | payer MEDICARE, BC, SELFPAY | PROVIDERS: PCP Internal Medicine; Visit Provider Internal Medicine | DX: I25.10 Atherosclerotic heart disease of native coronary artery without angina pectoris (principal); I42.8 Other cardiomyopathies; I10 Essential (primary) hypertension | CPT/HCPCS: 99212 ==

== ENCOUNTER 2021-03-01 11:59 | Outpatient (REF) | payer MEDICARE, BC, SELFPAY ==
[2021-03-01 14:25] LABS: Hemoglobin 11.3 g/dl (12.0-16.0); Mean Corpuscular HGB Conc 31.4 g/dl (31.0-35.0); Mean Corpuscular Hemoglobin 25.6 pg (27.0-33.0); Mean Corpuscular Volume 81.4 fL (80-98); Mean Platelet Volume 9.9 fL (9.4-12.3); Platelet Count 314 X10*3/uL (160-400); Red Blood Count 4.42 X10*6/uL (4.20-5.50); Red Cell Distribution Width 15.6 % (11.0-16.0); White Blood Count 5.8 X10*3/uL (4.8-10.8)
[2021-03-01 14:40] LABS: Albumin Level 3.9 g/dL (3.5-5.0); Anion Gap 14 (12-20); Blood Urea Nitrogen 22 mg/dL (9-16); Calcium 9.6 mg/dL (8.4-10.2); Carbon Dioxide 28 mmol/L (22-29); Chloride 103 mmol/L (96-108); Estimated Glomerular Filt Rate 49; Phosphorus 4.2 mg/dL (2.7-4.5); Potassium 4.8 mmol/L (3.3-5.1); Sodium 140 mmol/L (135-145)
[2021-03-02 17:57] LABS: Calcium (PTHI) 9.3 mg/dL (8.6-10.4); PTHI 85 pg/mL (14-64)
== END 2021-03-01 12:00 | disposition home or self-care (01) ==
LOC: HO.10HDL 11:59
PROVIDERS: Visit Provider Internal Medicine Nephrology
DX: I12.9 Hypertensive chronic kidney disease with stage 1 through stage 4 chronic kidney disease, or unspecified chronic kidney disease (principal); N18.31 Chronic kidney disease, stage 3a; I70.1 Atherosclerosis of renal artery; Z98.61 Coronary angioplasty status
CPT/HCPCS: 36415; 80051; 82040; 82310; 82565; 83735; 83970; 84100; 84520; 85027

== ENCOUNTER 2021-03-22 15:26 | Outpatient (REF) | payer MEDICARE, BC, SELFPAY ==
[2021-03-22 15:51] LABS: Glucose Urine UA NEG (NEG); Leukocyte Esterase Urine NEG (NEG); Nitrite Urine NEG (NEG); Urine Blood NEG (NEG); Urine Ketones NEG (NEG); Urine Protein NEG (NEG-TRACE)
[2021-03-22 15:54] LABS: Appearance Urine CLEAR; Color Urine YELLOW
[2021-03-22 15:58] LABS: Mucus Urine TRACE /LPF; RBC Urine 0 /HPF (0); Squamous Epithelial Cell Urine TRACE /LPF; WBC Urine 0 /HPF (0-4)
[2021-03-22 16:02] LABS: Creatinine Urine 50.34 mg/dL; Microalbum/Creatinine Ratio Ur 27.8 ug/mg cr; Total Protein Urine Random < 7 mg/dL (<12)
== END 2021-03-22 15:27 | disposition home or self-care (01) ==
LOC: HO.LNP 15:26
PROVIDERS: Visit Provider Internal Medicine Nephrology
DX: I12.9 Hypertensive chronic kidney disease with stage 1 through stage 4 chronic kidney disease, or unspecified chronic kidney disease (principal); N18.31 Chronic kidney disease, stage 3a; I70.1 Atherosclerosis of renal artery; Z98.61 Coronary angioplasty status
CPT/HCPCS: 81001; 82043; 84156; 87086

== ENCOUNTER → 2021-03-27 14:42 | Outpatient (BNVA) | payer MEDICARE, BC, SELFPAY | PROVIDERS: PCP Internal Medicine; Visit Provider Internal Medicine | DX: J44.9 Chronic obstructive pulmonary disease, unspecified (principal); R06.00 Dyspnea, unspecified; R91.8 Other nonspecific abnormal finding of lung field; Z79.899 Other long term (current) drug therapy | CPT/HCPCS: 99212 ==

== ENCOUNTER 2021-04-10 13:04 | Outpatient (REF) | payer MEDICARE, BC, SELFPAY ==
--- NOTE | ~2021-04-10 | CT_ITS ---
EXAMINATION: CT CHEST SCREENING CLINICAL INFORMATION: Former smoker COMPARISON: Previous chest CT October 2020 and chest CTA November 2020 TECHNIQUE: Multidetector volumetric CT imaging of the chest is performed without contrast using low dose technique. Additional 2D coronal and sagittal reformatted images and axial 3D maximum intensity projection (MIP) images are generated on the CT workstation. This CT examination was performed using dose optimization techniques as appropriate, variously including the following: *Automated exposure control *Adjustment of mA and/or kV according to patient size (this includes techniques or standardized protocols for targeted exams where dose is matched to indication/reason for exam; i.e. extremities or head) *Use of iterative reconstruction technique DLP: 52 mGy-cm FINDINGS: LUNGS: There is a new 6 mm groundglass attenuation nodule in the superior segment of the right lower lobe axial image 177 series 5. There is a 3 mm semisolid left lower lobe nodule axial image 185 series 5 that is new. The previously identified lingular pulmonary nodules that were October 2020 exam are no longer seen. MEDIASTINUM: There is coronary artery calcification. The mediastinum is otherwise normal. PLEURA: There is no pleural effusion. No pleural mass or thickening. AXILLA: No lymphadenopathy. UPPER ABDOMEN: The gallbladder has been removed. OSSEOUS STRUCTURES: There are degenerative changes of the spine. CT/CT lung screen follow up IMPRESSION: 2 new pulmonary nodules, largest a 6 mm groundglass attenuation nodule in the right lower lobe. The previously identified lingular nodules that were new on most recent exam October 2020 are no longer seen. Coronary artery calcification. ASSESSMENT: Lung-RADS category 2: Benign RECOMMENDATION: Annual low-dose chest CT follow-up recommended.
== END 2021-04-10 13:05 | disposition home or self-care (01) ==
LOC: HO.CT 13:04
PROVIDERS: Visit Provider Physician Assistant Medical
DX: Z12.2 Encounter for screening for malignant neoplasm of respiratory organs (principal); Z87.891 Personal history of nicotine dependence
CPT/HCPCS: 71250

== ENCOUNTER 2021-04-24 13:55 | Outpatient (REF) | payer MEDICARE, BC, SELFPAY ==
--- NOTE | ~2021-04-24 | CT_ITS ---
EXAMINATION: CT ANGIOGRAM ABDOMEN AND PELVIS CLINICAL INFORMATION: Atherosclerosis of renal artery COMPARISON: None TECHNIQUE: Multiple axial images were obtained through the abdomen and pelvis following the administration of 80 mL of Omnipaque 350 intravenous contrast. MIP images were performed. This CT examination was performed using dose optimization techniques as appropriate, variously including the following: *Automated exposure control *Adjustment of mA and/or kV according to patient size (this includes techniques or standardized protocols for targeted exams where dose is matched to indication/reason for exam; i.e. extremities or head) *Use of iterative reconstruction technique DLP: 272 mGy-cm FINDINGS: Lower chest: Unremarkable. There are no pleural effusions. Liver: Normal in size and attenuation. No focal lesions. Gallbladder and bile ducts: Prior cholecystectomy. Spleen: Normal in size and attenuation. Pancreas: Unremarkable. Adrenal glands: Unremarkable. Right kidney: Multiple small wedge-shaped defects in the right lower pole. There is no hydronephrosis or hydroureter. Left kidney: Mild cortical thinning There is no hydronephrosis or hydroureter. Lymph nodes: There is no lymphadenopathy in the abdomen or pelvis. Gastrointestinal tract: Small hiatal hernia. The stomach, small, and large bowel are normal in course and caliber. The appendix is identified and is within normal limits. Urinary bladder: The bladder is normal. Pelvic organs: The uterus is unremarkable. Vasculature: The abdominal aorta is normal in caliber. There is moderate mixed calcific and noncalcific atherosclerotic disease throughout. There is mild stenosis at the origin of celiac artery and SMA. There is moderate mixed calcific and nonspecific calcific atherosclerotic disease at the origin of the right renal artery resulting in moderate stenosis. There is mixed calcific and noncalcific atherosclerotic disease at the origin of the left renal artery resulting in mild stenosis. Additional findings: There is no intraperitoneal free air or fluid. Soft tissues: Unremarkable. Osseous structures: L5-S1 degenerative disease. CT/CT angio abdomen pelvis IMPRESSION: Mixed calcific and noncalcific atherosclerotic disease at the origins of the renal arteries resulting in moderate stenosis on the right and mild stenosis on the left.
[2021-04-24 14:48] LABS: Blood Urea Nitrogen 18 mg/dL (9-16); Estimated Glomerular Filt Rate 49
[2021-04-24] MEDS: iohexoL 350 MG/ML 100 ML INFUS..BTL IV (15:42)
== END 2021-04-24 13:56 | disposition home or self-care (01) ==
LOC: HO.CT 13:55
PROVIDERS: PCP Internal Medicine; Visit Provider Surgery Vascular Surgery
DX: I70.1 Atherosclerosis of renal artery (principal)
CPT/HCPCS: 36415; 74174; 82565; 84520; Q9967

== ENCOUNTER 2021-04-26 12:35 | Outpatient (REF) | payer MEDICARE, BC, SELFPAY ==
--- NOTE | ~2021-04-26 | US_ITS ---
EXAMINATION: ANKLE-BRACHIAL INDICES CLINICAL INFORMATION: Peripheral arterial disease. COMPARISON: 06/22/2020. TECHNIQUE: Ankle-brachial indices were obtained. Pulse volume recordings at the ankle were obtained. FINDINGS: Right: Ankle-brachial index 1.03. PVR: Mildly blunted. Left: Ankle-brachial index 0.97. PVR: Mildly blunted. US/US MISSY complete IMPRESSION: Stable exam with normal ankle-brachial indices and mildly abnormal pulse volume recordings.
== END 2021-04-26 12:36 | disposition home or self-care (01) ==
LOC: HO.US 12:35
PROVIDERS: Visit Provider Surgery Vascular Surgery
DX: I70.213 Atherosclerosis of native arteries of extremities with intermittent claudication, bilateral legs (principal)
CPT/HCPCS: 93923

== ENCOUNTER → 2021-05-10 14:02 | Outpatient (BNVA) | payer MEDICARE, BC, SELFPAY | PROVIDERS: PCP Internal Medicine; Visit Provider Surgery Vascular Surgery | DX: I70.1 Atherosclerosis of renal artery (principal); I73.9 Peripheral vascular disease, unspecified | CPT/HCPCS: 99212 ==

== ENCOUNTER → 2021-05-17 14:35 | Outpatient (BNVA) | payer MEDICARE, BC, SELFPAY | PROVIDERS: PCP Internal Medicine; Visit Provider Nurse Practitioner Family | DX: Z01.810 Encounter for preprocedural cardiovascular examination (principal); I21.4 Non-ST elevation (NSTEMI) myocardial infarction; I25.10 Atherosclerotic heart disease of native coronary artery without angina pectoris; I50.9 Heart failure, unspecified; I70.1 Atherosclerosis of renal artery; I99.8 Other disorder of circulatory system; R06.00 Dyspnea, unspecified; Z98.890 Other specified postprocedural states | CPT/HCPCS: 99212 ==

== ENCOUNTER 2021-05-21 08:44 | Day surgery (SDC) | payer MEDICARE, BC, SELFPAY ==
[2021-05-16 11:54] VITALS: BMI 29.5
--- NOTE | 2021-05-16 13:29 | MHC.SHP ---
Pre-Procedural Eval Section A Date of Service: 05/16/21 The patient is an INPATIENT: No The History & Physical has been completed within 30 days and I have reviewed it.: Yes Section B Chief Complaint: Cataract left Eye Allergies: Allergies Allergy/AdvReac Type Severity Reaction Status Date / Time codeine [Codeine] AdvReac Mild vomiting Verified 05/15/21 14:48 Plan Diagnosis/Plan: Unchanged I have reviewed the history and physical and performed a pertinent physical examination on my patient. No changes have occurred unless specified.
--- NOTE | 2021-05-18 14:05 | P.CONAN_ITS ---
Documented by User: Amanda Mcintosh 05/18/21 14:10 HPI - Anesthesia Eval Consult details Narrative: 65yo F for Left Cataract Extraction IOL Insertion Cardiac cleared @ low risk. Cardiac conditions stable [facility] [place] 12/20/20 with sob and found to have NSTEMI, CHF, HTN crisis. Echo sh owed mild to mod LV dysfunction, grade 2 diastolic dysfunction, + WMA, mild to mod MR. She was transferred to [facility] on 12/25 and had cardiac cath on 12/[address] Garcia showing 3 vessel ds, widely patent stents and no changes in anatomy. She was continued on aspirin, high dose atorvastatin, Metoprolol. Recheck of echo while at [facility] showed EF normal, 60-65%, with WMA and distolic dysfunction. Today she reports chronic shortness of breath with activity, which has been present for months. No chest discomfort. BP mildly elevated which she relates to walking long distance from parking lot. Will continue on current med mgt without change. Plan for repeat echo prior to her next visit. Based on cardiac catheterization findings, no clear explanation for decreased LVEF or wall motion findings. [facility] Active Problems Active Problems: All Active Problems (Updated 05/18/21 @ 13:57 by Ijeoma Becerra, [employer]) Preop cardiovascular exam (Acute) Bilateral cataracts (Acute) Preoperative clearance (Acute) PAD (peripheral artery disease) (Acute) Left renal artery stenosis (Acute) CHF (congestive heart failure) (Acute) Personal history of nicotine dependence (Acute) Essential hypertension (Acute) Cardiomyopathy (Acute) Atherosclerotic cardiovascular disease (Acute) Left leg pain (Acute) Asymmetric blood pressures (Acute) S/P cardiac cath (Acute ~12/2020) Hypertensive emergency (Acute) Acute diastolic (congestive) heart failure (Acute) Acute on chronic systolic (congestive) heart failure (Acute) Rectal bleeding (Acute) NSTEMI (non-ST elevated myocardial infarction) (Acute) CAD (coronary artery disease) (Acute) Hypertensive crisis (Acute) Acute and chronic respiratory failure with hypoxia (Acute) Acute exacerbation of CHF (congestive heart failure) (Acute) Pulmonary nodules (Acute) COPD (chronic obstructive pulmonary disease) (Acute) Dyspnea on effort (Acute) Peripheral arterial occlusive disease (Acute) Past Medical History Medical History Acute on chronic systolic (congestive) heart failure Asymmetric blood pressures Atherosclerotic cardiovascular disease CAD (coronary artery disease) Cardiomyopathy CHF (congestive heart failure) COPD (chronic obstructive pulmonary disease) Dyspnea on effort Essential hypertension Left renal artery stenosis Multiple sclerosis Peripheral arterial occlusive disease Personal history of nicotine dependence Pulmonary nodules Family History Family History Father No problems noted. Mother No problems noted. Brother Diabetes Surgical History Surgical History History of cholecystectomy (~02/2009) History of heart artery stent (~2018) S/P cardiac cath (~12/2020) S/P insertion of iliac artery stent (~02/2019) Status post angioplasty with stent (~09/2018) Social History Social History Household Members: None Housing: House Do you presently have visiting nurse or other home services: No Alcohol intake: never Patient Tobacco Use Status: Former Tobacco user Quit Date: 2017 Tobacco use type: Cigarette Second Hand Smoke Exposure: No Use of substances other than those prescribed or required for medical reasons: No Are you DNR?: No Advance Directives: No Advance Directives Information Provided: No Advance Directives on File: No service: No Current occupational status: retired [employer] Allergies Allergy/AdvReac Type Severity Reaction Status Date / Time codeine [Codeine] AdvReac Mild vomiting Verified 05/21/21 09:45 Home Medications Medication Instructions Recorded Confirmed Last Taken Type interferon beta-1a 30 mcg/0.5 mL 30 mcg IM Q7D 10/03/20 05/18/21 Unknown History intramuscular pen kit paroxetine HCl 40 mg tablet 40 mg PO DAILY 10/03/20 05/18/21 05/21/21 07:30 History cholecalciferol (vitamin D3) 25 mcg PO DAILY 12/20/20 05/18/21 12/20/20 History [Vitamin D3] cyanocobalamin (vitamin B-12) 1,000 mcg PO DAILY 12/20/20 05/18/21 12/20/20 History [Vitamin B-12] furosemide 20 mg tablet 20 mg PO DAILY 05/15/21 05/18/21 Unknown History Exam Exam Date and Time: May 18, 2021 1405 Height,Weight and Vital Signs: Height 5 ft 6 in Weight 83.007 kg Pertinent Lab Results Pertinent Lab Results: Laboratory Tests 03/01/21 03/01/21 04/24/21 12:10 12:10 14:23 WBC 5.8 Hgb 11.3 L Hct 36.0 L Plt Count 314 Sodium 140 Potassium 4.8 D Chloride 103 Carbon Dioxide 28 BUN 18 H Creatinine 1.12 Assessment and Plan Assessment Anesthesia Assessment: Chart Reviewed Documented by User: Dawna Ramos 05/21/21 10:13 [facility] Past Medical History Medical History Acute on chronic systolic (congestive) heart failure Asymmetric blood pressures Atherosclerotic cardiovascular disease CAD (coronary artery disease) Cardiomyopathy CHF (congestive heart failure) COPD (chronic obstructive pulmonary disease) Dyspnea on effort Essential hypertension Left renal artery stenosis Multiple sclerosis Peripheral arterial occlusive disease Personal history of nicotine dependence Pulmonary nodules Family History Family History Father No problems noted. Mother No problems noted. Brother Diabetes Surgical History Surgical History History of cholecystectomy (~02/2009) History of heart artery stent (~2018) S/P cardiac cath (~12/2020) S/P insertion of iliac artery stent (~02/2019) Status post angioplasty with stent (~09/2018) Social History Social History Household Members: None Housing: House Do you presently have visiting nurse or other home services: No Alcohol intake: never Patient Tobacco Use Status: Former Tobacco user Quit Date: 2017 Tobacco use type: Cigarette Second Hand Smoke Exposure: No Use of substances other than those prescribed or required for medical reasons: No Are you DNR?: No Advance Directives: No Advance Directives Information Provided: No Advance Directives on File: No service: No Current occupational status: retired Meds Allergies Allergy/AdvReac Type Severity Reaction Status Date / Time codeine [Codeine] AdvReac Mild vomiting Verified 05/21/21 09:45 Home Medications Medication Instructions Recorded Confirmed Last Taken Type interferon beta-1a 30 mcg/0.5 mL 30 mcg IM Q7D 10/03/20 05/18/21 Unknown History intramuscular pen kit paroxetine HCl 40 mg tablet 40 mg PO DAILY 10/03/20 05/18/21 05/21/21 07:30 History cholecalciferol (vitamin D3) 25 mcg PO DAILY 12/20/20 05/18/21 12/20/20 History [Vitamin D3] cyanocobalamin (vitamin B-12) 1,000 mcg PO DAILY 12/20/20 05/18/21 12/20/20 History [Vitamin B-12] furosemide 20 mg tablet 20 mg PO DAILY 05/15/21 05/18/21 Unknown History Exam Airway Mallampati Class: II TM Dist: >3cm Neck ROM: Full Denture: Upper Heart: rrr Lungs: cta Assessment and Plan Assessment Anesthesia Assessment: Anesthesia Plan Discussed and Chart Reviewed Final Anesthetic Review NPO: Yes (Sip water with med) ASA Class: III Final Preanesthetic Review: No Changes in Pt Med Stat and Consent Obtained/Reviewed Patient Risk: Low Procedure Risk: Low Anesthetic Plan Anesthetic Plan: MAC: Disposition: Standard PACU
[2021-05-21] MEDS: Tetracaine HCl/PF 0.5% Oph Sol 4 ML DROPS 1 DROP EYE-LEFT (10:12)
[2021-05-21] MEDS: Tropicamide 1 % Ophth Sol 3 ML BTL 1 DROP EYE-LEFT ×3 (10:13→10:20)
[2021-05-21] MEDS: Phenylephrine HCL 2.5% Oph SoL 2 ML BOTTLE 1 DROP EYE-LEFT ×3 (10:18→10:20)
[2021-05-21 10:21] VITALS: BP 134/85; PULSE 68; RESP 16; TEMP 36.7; O2SAT 98
[2021-05-21] MEDS: Lactated Ringers 500 ML 50 ML IV (10:21)
--- NOTE | 2021-05-21 11:16 | HO.PNOPHT ---
Ophthalmology Procedure Procedure Date of Service: 05/21/21 Ophthalmology Viscoelastic: Healon Duet Dual Pack Pro Ophthalmology Lenses: TECOLIVIER [id number] (23) Procedure Notes: PREOPERATIVE DIAGNOSIS: Decreased visual acuity left eye secondary to cataract POSTOPERATIVE DIAGNOSIS: Same PROCEDURE: Left cataract extraction with intraocular lens insertion SURGEON: Macario Joyner M.D. ANESTHESIA: Topical/MAC ESTIMATED BLOOD LOSS: None COMPLICATIONS: None After obtaining informed consent, the patient was brought to the operation room suite and placed in the supine position. After adequate sedation per anesthesia, topical drops of Tetracaine were given to the left eye. The eye was then prepped and draped in the usual sterile fashion. The operating room microscope was then positioned over the operative eye and a lid speculum placed. A paracentesis was created. Viscoelastic was then instilled into the anterior chamber. A three plane incision was then created temporally, utilizing a 2.85 mm keratome. Capsulotomy forceps were then utilized to create a circular tear capsulotomy. Hydrodissection and hydrodelineation were carried out until adequate mobilization of the nucleus occurred. Phacoemulsification was then utilized to remove the dense central nucleus followed by removal of the cortical material utilizing the automated aspiration irrigation unit. Viscoat elastic was instilled into the posterior capsular bag followed by placement of a posterior chamber intraocular lens without difficulty. The residual Viscoat elastic was then removed utilizing the automated IA machine. The wound was check and found to be watertight. The patient tolerated the procedure well and the lid speculum was removed. Intracameral injection of Vigamox 0.1 mL followed by a subtenon injection of Kenalog-40 0.2 mL were administered. The patient will be seen in the a.m.
[2021-05-21 11:44] VITALS: BP 172/71; PULSE 65; RESP 18; TEMP 36.2; O2SAT 100
[2021-05-21] MEDS: Acetaminophen 325 MG TABLET 650 MG PO (11:51)
== END 2021-05-21 12:30 | disposition home or self-care (01) ==
PROVIDERS: PCP Internal Medicine; Visit Provider Ophthalmology
PROC: (CPT 66985; principal; 2021-05-21 11:30)
DX: H25.12 Age-related nuclear cataract, left eye (principal); H54.7 Unspecified visual loss; G35 Multiple sclerosis; I50.23 Acute on chronic systolic (congestive) heart failure; I11.0 Hypertensive heart disease with heart failure; I25.10 Atherosclerotic heart disease of native coronary artery without angina pectoris; Z98.61 Coronary angioplasty status; Z95.1 Presence of aortocoronary bypass graft; Z87.891 Personal history of nicotine dependence; Z79.51 Long term (current) use of inhaled steroids; Z79.899 Other long term (current) drug therapy
CPT/HCPCS: 66984; J2250; J3010; J3300; V2632

== ENCOUNTER 2021-06-11 07:31 | Day surgery (SDC) | payer MEDICARE, BC, SELFPAY ==
[2021-05-16 11:57] VITALS: BMI 29.5
--- NOTE | 2021-06-11 06:58 | MHC.SHP ---
Pre-Procedural Eval Section A Date of Service: 06/11/21 Section B Chief Complaint: Cataract Right Eye Allergies: Allergies Allergy/AdvReac Type Severity Reaction Status Date / Time codeine [Codeine] AdvReac Mild vomiting Verified 05/21/21 09:45 Plan I have reviewed the history and physical and performed a pertinent physical examination on my patient. No changes have occurred unless specified.
[2021-06-11 08:52] VITALS: BP 141/77; PULSE 56; RESP 18; TEMP 36.9; O2SAT 99
--- NOTE | 2021-06-11 09:00 | P.CONAN_ITS ---
HPI - Anesthesia Eval Consult details Narrative: Right eye Cataract [facility] Active Problems Active Problems: All Active Problems (Updated 05/18/21 @ 13:57 by Ijeoma Becerra NP-C) Preop cardiovascular exam (Acute) Bilateral cataracts (Acute) Preoperative clearance (Acute) PAD (peripheral artery disease) (Acute) Left renal artery stenosis (Acute) CHF (congestive heart failure) (Acute) Personal history of nicotine dependence (Acute) Essential hypertension (Acute) Cardiomyopathy (Acute) Atherosclerotic cardiovascular disease (Acute) Left leg pain (Acute) Asymmetric blood pressures (Acute) S/P cardiac cath (Acute ~12/2020) Hypertensive emergency (Acute) Acute diastolic (congestive) heart failure (Acute) Acute on chronic systolic (congestive) heart failure (Acute) Rectal bleeding (Acute) NSTEMI (non-ST elevated myocardial infarction) (Acute) CAD (coronary artery disease) (Acute) Hypertensive crisis (Acute) Acute and chronic respiratory failure with hypoxia (Acute) Acute exacerbation of CHF (congestive heart failure) (Acute) Pulmonary nodules (Acute) COPD (chronic obstructive pulmonary disease) (Acute) Dyspnea on effort (Acute) Peripheral arterial occlusive disease (Acute) Past Medical History Medical History Acute on chronic systolic (congestive) heart failure Asymmetric blood pressures Atherosclerotic cardiovascular disease CAD (coronary artery disease) Cardiomyopathy CHF (congestive heart failure) COPD (chronic obstructive pulmonary disease) Dyspnea on effort Essential hypertension Left renal artery stenosis Multiple sclerosis Peripheral arterial occlusive disease Personal history of nicotine dependence Pulmonary nodules Cognitive capacity: AAO X3 Functional capacity: independent ambulation Family History Family History Father No problems noted. Mother No problems noted. Brother Diabetes Family history of problems with anesthesia: No Surgical History Surgical History History of cholecystectomy (~02/2009) History of heart artery stent (~2018) S/P cardiac cath (~12/2020) S/P insertion of iliac artery stent (~02/2019) Status post angioplasty with stent (~09/2018) History of Problems with Anesthesia: No Social History Social History Household Members: None Housing: House Do you presently have visiting nurse or other home services: No Alcohol intake: never Patient Tobacco Use Status: Former Tobacco user Quit Date: 2017 Tobacco use type: Cigarette Second Hand Smoke Exposure: No Use of substances other than those prescribed or required for medical reasons: No Are you DNR?: No Advance Directives: No Advance Directives Information Provided: No Advance Directives on File: No service: No Current occupational status: retired Meds Allergies Allergy/AdvReac Type Severity Reaction Status Date / Time codeine [Codeine] AdvReac Mild vomiting Verified 06/11/21 08:50 Active Medications: Current Medications Generic Name Dose Route Start Last Admin Trade Name Freq PRN Reason Stop Dose Admin Lactated Ringer's 1,000 mls @ 50 mls/hr 06/08/21 12:15 Lr IVCONT .Q20H JOSE Lactated Ringer's 500 mls @ 50 mls/hr 06/11/21 07:45 Lr IVCONT .Q10H JOSE Povidone Iodine 1 appl 06/11/21 06:59 Povidone Iodine 5 % Ophth Soln 30 Ml Bottle EYE-RIGHT PREOP PRN Pre-Op Surgical Implant Prophy Home Medications Medication Instructions Recorded Confirmed Last Taken Type interferon beta-1a 30 mcg/0.5 mL 30 mcg IM Q7D 10/03/20 05/18/21 Unknown History intramuscular pen kit (Avonex) paroxetine HCl 40 mg tablet 40 mg PO DAILY 10/03/20 05/18/21 06/11/21 06:30 History cholecalciferol (vitamin D3) 25 25 mcg PO DAILY 12/20/20 05/18/21 12/20/20 History mcg (1,000 unit) tablet (Vitamin D3) cyanocobalamin (vitamin B-12) 1,000 mcg PO DAILY 12/20/20 05/18/21 12/20/20 History 1,000 mcg tablet (Vitamin B-12) furosemide 20 mg tablet 20 mg PO DAILY 05/15/21 05/18/21 Unknown History Exam Exam Date and Time: June 11, 2021 0900 Height,Weight and Vital Signs: Height 5 ft 6 in Weight 83.007 kg Last Vital Signs Temp 98.4 F 06/11/21 08:52 Pulse 56 06/11/21 08:52 Resp 18 06/11/21 08:52 BP 141/77 H 06/11/21 08:52 Pulse Ox 99 06/11/21 08:52 Airway Mallampati Class: II TM Dist: >3cm Neck ROM: Full Denture: Upper and Lower Heart: [id number] Lungs: cta b/l Assessment and Plan Assessment Anesthesia Assessment: Anesthesia Plan Discussed and Chart Reviewed Final Anesthetic Review Family History of Problems with Anesthesia: No History of Problems with Anesthesia: No NPO: Yes ASA Class: III Final Preanesthetic Review: No Changes in Pt Med Stat, Meds/Allgs Chart Reviewed, Consent Obtained/Reviewed and Anes Risks/Benef Reviewed Patient Risk: Intermediate Procedure Risk: Low Assessment/Block/Sedation in SS: Assess/Block/Sedation-SS Anesthetic Plan Anesthetic Plan: MAC: and Agree w/ Assess. and Plan Disposition: Standard PACU
[2021-06-11] MEDS: Lactated Ringers 500 ML 50 ML IVCONT (09:21)
[2021-06-11] MEDS: Tetracaine HCl/PF 0.5% Oph Sol 4 ML DROPS 1 DROP EYE-RIGHT (09:22)
[2021-06-11] MEDS: Tropicamide 1 % Ophth Sol 3 ML BTL 1 DROP EYE-RIGHT ×3 (09:23→09:32)
[2021-06-11] MEDS: Phenylephrine HCL 2.5% Oph SoL 2 ML BOTTLE 1 DROP EYE-RIGHT ×3 (09:25→09:34)
--- NOTE | 2021-06-11 10:00 | HO.PNOPHT ---
Ophthalmology Procedure Procedure Date of Service: 06/11/21 Ophthalmology Viscoelastic: Healon Duet Dual Pack Pro Ophthalmology Lenses: TECNIS [id number] (22.5) Procedure Notes: PREOPERATIVE DIAGNOSIS: Decreased visual acuity right eye secondary to cataract POSTOPERATIVE DIAGNOSIS: Same PROCEDURE: Right cataract extraction with intraocular lens insertion SURGEON: Macario Joyner M.D. ANESTHESIA: Topical/MAC ESTIMATED BLOOD LOSS: None COMPLICATIONS: None After obtaining informed consent, the patient was brought to the operating room suite and placed in the supine position. After adequate sedation per anesthesia, topical drops of Tetracaine were given to the right eye. The eye was then prepped and draped in the usual sterile fashion. The operating room microscope was then positioned over the operative eye and a lid speculum placed. A paracentesis was created. Viscoelastic was then instilled into the anterior chamber. A three plane incision was then created temporally, utilizing a 2.85 mm keratome. Capsulotomy forceps were then utilized to create a circular tear capsulotomy. Hydrodissection and hydrodelineation were carried out until adequate mobilization of the nucleus occurred. Phacoemulsification was then utilized to remove the dense central nucleus followed by removal of the cortical material utilizing the automated aspiration irrigation unit. Viscoelastic was instilled into the posterior capsular bag followed by placement of a posterior chamber intraocular lens without difficulty. The residual Viscoelastic was then removed utilizing the automated IA machine. The wound was checked and found to be watertight. The patient tolerated the procedure well and the lid speculum was removed. Intracameral injection of Vigamox 0.1 mL followed by a subtenon injection of Kenalog-40 0.2 mL were administered. The patient will be seen in the a.m.
[2021-06-11 10:33] VITALS: BP 140/74; PULSE 58; RESP 16; TEMP 36.2; O2SAT 100
== END 2021-06-11 10:46 | disposition home or self-care (01) ==
PROVIDERS: PCP Internal Medicine; Visit Provider Ophthalmology
PROC: (CPT 66985; principal; 2021-06-11 09:40)
DX: H25.11 Age-related nuclear cataract, right eye (principal); H54.7 Unspecified visual loss; G35 Multiple sclerosis; J44.9 Chronic obstructive pulmonary disease, unspecified; I10 Essential (primary) hypertension; I50.9 Heart failure, unspecified; I25.10 Atherosclerotic heart disease of native coronary artery without angina pectoris; Z98.61 Coronary angioplasty status; Z95.1 Presence of aortocoronary bypass graft; Z79.899 Other long term (current) drug therapy; Z79.82 Long term (current) use of aspirin; Z88.8 Allergy status to other drugs, medicaments and biological substances; Z87.891 Personal history of nicotine dependence
CPT/HCPCS: 66984; J2250; J3300; V2632

== ENCOUNTER 2021-07-17 15:00 | Outpatient (REF) | payer MEDICARE, BC, SELFPAY ==
[2021-07-17 16:14] LABS: Anion Gap 13 (12-20); Blood Urea Nitrogen 15 mg/dL (9-16); Calcium 9.4 mg/dL (8.4-10.2); Carbon Dioxide 25 mmol/L (22-29); Chloride 104 mmol/L (96-108); Estimated Glomerular Filt Rate 52; Glucose Random 90 mg/dL (60-115); Potassium 3.9 mmol/L (3.3-5.1); Sodium 138 mmol/L (135-145)
[2021-07-17 16:29] LABS: Appearance Urine HAZY; Color Urine YELLOW; Glucose Urine UA NEG (NEG); Leukocyte Esterase Urine 1+ (NEG); Nitrite Urine NEG (NEG); PH 5.5 (5.0-8.0); Specific Gravity - Urine 1.015 (1.005-1.025); Urine Blood NEG (NEG); Urine Ketones NEG (NEG); Urine Protein NEG (NEG-TRACE)
[2021-07-17 16:49] LABS: Bacteria Urine 1+ /LPF; Mucus Urine TRACE /LPF; RBC Urine 0-2 /HPF (0); Squamous Epithelial Cell Urine 2+ /LPF
[2021-07-17 17:04] LABS: Creatinine Urine 69.37 mg/dL; Microalbum/Creatinine Ratio Ur 14.4 ug/mg cr; Total Protein Urine Random < 7 mg/dL (<12)
== END 2021-07-17 15:01 | disposition home or self-care (01) ==
LOC: HO.LAB 15:00
PROVIDERS: PCP Internal Medicine; Visit Provider Internal Medicine Nephrology
DX: I12.9 Hypertensive chronic kidney disease with stage 1 through stage 4 chronic kidney disease, or unspecified chronic kidney disease (principal); N18.31 Chronic kidney disease, stage 3a; I70.1 Atherosclerosis of renal artery
CPT/HCPCS: 36415; 80048; 81001; 82043; 84156

== ENCOUNTER 2021-09-06 13:52 | Outpatient (REF) | payer MEDICARE, BC, SELFPAY ==
[2021-09-06 14:16] LABS: MANUAL DIFF FLAG NO
[2021-09-06 14:33] LABS: Basophils Percent Auto 0.9 % (0-2); Eosinophils Absolute Auto 0.2 X10*3/uL (0.0-0.4); Eosinophils Percent Auto 4.1 % (0-4); Hematocrit 36.2 % (37.0-47.0); Imm Gran Abs Auto 0.01 X10*3/uL (0.00-0.03); Imm Gran Pct Auto 0.2 % (0.0-0.4); Lymphocytes Absolute Auto 0.7 X10*3/uL (1.2-4.9); Lymphocytes Percent Auto 15.4 % (20-40); Mean Corpuscular HGB Conc 33.1 g/dl (31.0-35.0); Mean Corpuscular Volume 81.3 fL (80.0-98.0); Mean Platelet Volume 9.2 fL (9.4-12.3); Monocytes Absolute Auto 0.5 X10*3/uL (0.1-1.2); Neutrophils Absolute Auto 3.2 x10*3/uL (2.0-8.3); Neutrophils Percent Auto 69.4 % (45-73); Platelet Count 257 X10*3/uL (160-400); Red Blood Count 4.45 X10*6/uL (4.20-5.50); Red Cell Distribution Width 15.1 % (11.0-16.0); White Blood Count 4.6 X10*3/uL (4.8-10.8)
[2021-09-06 15:15] LABS: TSH reflex Free T4 2.71 uIU/mL (0.32-4.0)
== END 2021-09-06 13:53 | disposition home or self-care (01) ==
LOC: HO.LAB 13:52
PROVIDERS: PCP Internal Medicine; Visit Provider Internal Medicine Gastroenterology
DX: R19.7 Diarrhea, unspecified (principal)
CPT/HCPCS: 36415; 84443; 85025

== ENCOUNTER 2021-09-11 13:48 | Outpatient (REF) | payer MEDICARE, BC, SELFPAY ==
[2021-09-11 14:42] LABS: Leukocytes Stool Qualitative NEGATIVE (NEGATIVE)
== END 2021-09-11 13:49 | disposition home or self-care (01) ==
LOC: HO.LNP 13:48
PROVIDERS: Visit Provider Internal Medicine Gastroenterology
DX: R19.7 Diarrhea, unspecified (principal)
CPT/HCPCS: 87045; 87046; 87177; 87209; 89055

== ENCOUNTER → 2021-09-13 13:58 | Outpatient (BNVA) | payer MEDICARE, BC, SELFPAY | PROVIDERS: PCP Internal Medicine; Referring Provider Internal Medicine; Visit Provider Internal Medicine | DX: I25.10 Atherosclerotic heart disease of native coronary artery without angina pectoris (principal); I48.91 Unspecified atrial fibrillation; I42.9 Cardiomyopathy, unspecified; I11.0 Hypertensive heart disease with heart failure; I50.21 Acute systolic (congestive) heart failure; I16.0 Hypertensive urgency; Z95.5 Presence of coronary angioplasty implant and graft; Z87.891 Personal history of nicotine dependence; Z88.6 Allergy status to analgesic agent; Z79.82 Long term (current) use of aspirin; Z79.899 Other long term (current) drug therapy | CPT/HCPCS: 93005; 99212 ==

== ENCOUNTER 2021-09-13 15:05 | Inpatient (IN) | payer MEDICARE, BC, SELFPAY ==
[2021-09-13] VITALS (7 sets, daily range): BP systolic 99–126; BP diastolic 57–89; PULSE 76–125; RESP 16–20; TEMP 36.1–37; O2SAT 95–99; BMI 29.8
--- NOTE | ~2021-09-13 | XR_ITS ---
EXAMINATION: XR CHEST CLINICAL INFORMATION: Cardiac arrhythmia COMPARISON: None TECHNIQUE: Frontal view of the chest was obtained. FINDINGS: The lungs are well-expanded and clear of acute process. The heart size and pulmonary vascularity is normal. No gross bony abnormality seen. XR/XR chest 1V IMPRESSION: Unremarkable chest exam.
[2021-09-13 15:54] LABS: MANUAL DIFF FLAG NO
--- NOTE | 2021-09-13 15:54 | ECG_ITS ---
Test Reason : cp Blood Pressure : / mmHG Vent. Rate : 103 BPM Atrial Rate : 000 BPM P-R Int : 000 ms QRS Dur : 082 ms QT Int : 376 ms P-R-T Axes : 000 094 208 degrees QTc Int : 492 ms Atrial fibrillation with rapid ventricular response Rightward axis T-wave inversion in Inferior leads Marked ST abnormality, possible lateral subendocardial injury Abnormal ECG When compared with ECG of 25-DEC-2020 09:05, Significant changes have occurred Atrial fibrillation is new QRS duration has decreased Heart rate has increased Referred By: Esthela August Electronically Signed By:TAMERA OSWALD MD
[2021-09-13 15:55] LABS: Basophils Absolute Auto 0.1 X10*3/uL (0.0-0.2); Basophils Percent Auto 1.2 % (0-2); Eosinophils Absolute Auto 0.2 X10*3/uL (0.0-0.4); Eosinophils Percent Auto 3.6 % (0-4); Hematocrit 38.7 % (37.0-47.0); Hemoglobin 12.2 g/dl (12.0-16.0); Imm Gran Abs Auto 0.02 X10*3/uL (0.00-0.03); Imm Gran Pct Auto 0.3 % (0.0-0.4); Lymphocytes Absolute Auto 1.3 X10*3/uL (1.2-4.9); Mean Corpuscular HGB Conc 31.5 g/dl (31.0-35.0); Mean Corpuscular Hemoglobin 26.5 pg (27.0-33.0); Mean Corpuscular Volume 83.9 fL (80.0-98.0); Mean Platelet Volume 9.6 fL (9.4-12.3); Monocytes Absolute Auto 0.4 X10*3/uL (0.1-1.2); Monocytes Percent Auto 7.1 % (2-11); Neutrophils Absolute Auto 3.9 x10*3/uL (2.0-8.3); Neutrophils Percent Auto 65.8 % (45-73); Platelet Count 293 X10*3/uL (160-400); Red Blood Count 4.61 X10*6/uL (4.20-5.50); Red Cell Distribution Width 15.7 % (11.0-16.0); White Blood Count 5.9 X10*3/uL (4.8-10.8)
[2021-09-13 16:10] LABS: Anion Gap 18 (12-20); Blood Urea Nitrogen 12 mg/dL (9-16); Calcium 9.6 mg/dL (8.4-10.2); Carbon Dioxide 21 mmol/L (22-29); Chloride 106 mmol/L (96-108); Creatinine Clr Calc Pharmacy 45.6; Estimated Glomerular Filt Rate 41; Glucose Random 100 mg/dL (60-115); Potassium 4.4 mmol/L (3.3-5.1); Sodium 141 mmol/L (135-145)
[2021-09-13] MEDS: dilTIAZem HCL 50 MG/10 ML VIAL 20 MG IVPUSH (16:10)
[2021-09-13 16:18] LABS: B Type Natriuretic Peptide 623 pg/mL (<100); Troponin-I High Sensitivity 10.5 ng/L (<3.5-17.0)
--- NOTE | 2021-09-13 16:26 | ED_ITS ---
HPI - SOB/Dyspnea General Chief Complaint: Dyspnea Stated Complaint: SOB Time Seen by Provider: 09/13/21 15:47 Source: patient Mode of arrival: ambulatory History of Present Illness HPI Narrative: 66-year-old female with a PMH CHF, CAD, NSTEMI s/p cardiac catheterization, cardiomyopathy, COPD, HTN, presenting to the ED sent down from cardiology office in new onset AFib with RVR at a rate of 117. Patient reports worsening SOB x months, chest pressure and palpitations. Denies fever, chills, cough, abdominal pain, nausea/vomiting, pedal edema MD elicited complaint: shortness of breath Related Data Home Medications Medication Instructions Recorded Confirmed interferon beta-1a 30 mcg/0.5 mL 30 mcg IM TU 10/03/20 09/13/21 intramuscular pen kit (Avonex) paroxetine HCl 40 mg tablet 40 mg PO BEDTIME 10/03/20 09/13/21 cholecalciferol (vitamin D3) 25 25 mcg PO DAILY 12/20/20 09/13/21 mcg (1,000 unit) tablet (Vitamin D3) cyanocobalamin (vitamin B-12) 1,000 mcg PO DAILY 12/20/20 09/13/21 1,000 mcg tablet (Vitamin B-12) furosemide 20 mg tablet 20 mg PO DAILY 05/15/21 09/13/21 clopidogrel 75 mg tablet 75 mg PO DAILY 09/13/21 09/13/21 lisinopril 5 mg tablet 5 mg PO DAILY 09/13/21 09/13/21 Previous Rx's Medication Instructions Recorded metoprolol succinate 25 mg 25 mg PO DAILY #90 tab 03/01/21 tablet,extended release 24 hr ferrous sulfate 325 mg (65 mg 325 mg PO DAILY #90 tab 03/29/21 iron) tablet atorvastatin 80 mg tablet 80 mg PO DAILY #90 tab 04/09/21 cilostazol 50 mg tablet 50 mg PO BID #180 tab 04/14/21 aspirin 81 mg tablet,delayed 81 mg PO DAILY #90 tab 07/16/21 release omeprazole 20 mg capsule,delayed 20 mg PO QAM #30 cap 07/16/21 release amlodipine 5 mg tablet 5 mg PO DAILY #30 tab 07/20/21 oxybutynin chloride 5 mg tablet 5 mg PO BID #60 tab 08/12/21 Allergies Allergy/AdvReac Type Severity Reaction Status Date / Time codeine [Codeine] AdvReac Mild vomiting Verified 09/13/21 15:24 Review of Systems Review of Systems: Constitutional: No Fever, No Chills, No Fatigue, No Malaise ENT/Mouth: No Ear Pain, No Nasal Congestion,No sore throat, No Rhinorrhea Eyes: No Eye Pain, No Swelling, No Redness, No Foreign Body, No Discharge, No Vision Changes Cardiovascular: + Chest Pain, + SOB, + Dyspnea on Exertion, No Orthopnea, No Edema, + Palpitations Respiratory: No Cough, No Dyspnea Gastrointestinal: No Nausea, No Vomiting, No Diarrhea, No Constipation, No Abdominal pain Genitourinary: No Dysuria, No Urinary Frequency, No Hematuria Musculoskeletal: No joint pain, No Myalgias, No Joint Swelling Skin: No Skin Lesions, No rash Neuro: No Weakness, No Numbness, No Paresthesias, No Dizziness, No Headache Yes all other systems are reviewed and are negative [facility] Past Medical History Attestation statement: The following information was validated with the patient. Medical History Acute on chronic systolic (congestive) heart failure Asymmetric blood pressures Atherosclerotic cardiovascular disease CAD (coronary artery disease) Cardiomyopathy CHF (congestive heart failure) COPD (chronic obstructive pulmonary disease) Dyspnea on effort Essential hypertension Left renal artery stenosis Multiple sclerosis Peripheral arterial occlusive disease Personal history of nicotine dependence Pulmonary nodules Surgical History History of cholecystectomy (~02/2009) History of heart artery stent (~2018) S/P cardiac cath (~12/2020) S/P insertion of iliac artery stent (~02/2019) Status post angioplasty with stent (~09/2018) Family History Family History Father No problems noted. Mother No problems noted. Brother Diabetes Social History Social History Household Members: None Housing: House Do you presently have visiting nurse or other home services: No Alcohol intake: never Patient Tobacco Use Status: Former Tobacco user Quit Date: 2017 Tobacco use type: Cigarette Second Hand Smoke Exposure: No Advance Directives: Yes Advance Directives on File: Yes Advance Directives Date on File: 12/27/20 service: No Current occupational status: retired Physical Exam Vital Signs: Vital Signs: Last Vital Signs Temp 98 F 09/13/21 16:07 Pulse 76 09/13/21 16:14 Resp 20 09/13/21 16:07 BP 106/57 L 09/13/21 16:14 Pulse Ox 95 09/13/21 16:07 Body Mass Index 29.8 Const: General: cooperative and no acute distress Orientation/consciousness: patient oriented x3 Limitations: no limitations HENMT: Head: Yes normal to inspection and Yes atraumatic Ears: hearing grossly normal bilaterally General nose exam: Normal external nose present Face and sinus: Yes normal facial exam Eyes: General: appearance normal, both eyes and all related structures EOM: EOMs intact bilaterally Neck: Neck: Yes normal visual inspection and Yes no meningeal signs Resp: Effort & Inspection: normal respiratory effort Auscultation: clear to auscultation bilaterally, no rales, no rhonchi and no wheezes Cardio: Rate: tachycardic Rhythm: abnormal rhythm Heart sounds: S1 no rmal heart sound present and S2 normal heart sound present GI: Inspection: Yes normal to inspection Palpation (GI): Soft to palpation, nontender, no guarding and not rigid : General: Yes no CVA tenderness Back/Spine/Pelvis: Back: no CVA tenderness Skin: Rashes: no rashes Wounds: no wounds Neuro: General: patient oriented x3, tone normal, moves all extremities and no meningeal signs Gait exam (Neuro): Normal gait present Extrem: General: Yes normal to inspection, Yes no pedal edema and Yes no calf tenderness Course Course Course Narrative: -1630--patient heart rate 76 after 20 mg of IV Cardizem will obtain repeat EKG Repeat EKG AFib with controlled rate. Plan is for admission -no leukocytosis. Initial troponin 10.5 > will obtain through repeat. BNP 635 XR chest 1V IMPRESSION: Unremarkable chest exam. MDM - SOB/Dyspnea MDM Narrative Medical decision making narrative: 66-year-old female with a PMH CHF, CAD, NSTEMI s/p cardiac catheterization, cardiomyopathy, COPD, HTN, presenting to the ED sent down from cardiology office in new onset AFib with RVR at a rate of 117. On exam noted in AFib with RVR at a rate of 146, nontoxic appearing, lungs CTA. Concern for CHF vs infectious/metabolic etiologies vs ACS Plan: EKG, labs, CXR, rate control meds, JOAN, admission [id number] VASc =5 Moderate to high risk patient should be anticoagulated, will initiate Eliquis Medical Records Attestation: I reviewed the patient's medical records. Lab Data Attestation: I reviewed the patient's lab results. Result diagrams: 09/13/21 15:47 09/13/21 15:47 Labs: Lab Results 09/13/21 09/13/21 09/13/21 Range/Units 15:47 15:47 15:47 WBC 5.9 (4.8-10.8) X10*3/uL RBC 4.61 (4.20-5.50) X10*6/uL Hgb 12.2 (12.0-16.0) g/dl Hct 38.7 (37.0-47.0) % MCV 83.9 (80.0-98.0) fL MCH 26.5 L (27.0-33.0) pg MCHC 31.5 (31.0-35.0) g/dl RDW 15.7 (11.0-16.0) % Plt Count 293 (160-400) X10*3/uL MPV 9.6 (9.4-12.3) fL Immature Gran % (Auto) 0.3 (0.0-0.4) % Neut % (Auto) 65.8 (45-73) % Lymph % (Auto) 22.0 (20-40) % [place] % (Auto) 7.1 (2-11) % Eos % (Auto) 3.6 (0-4) % Baso % (Auto) 1.2 (0-2) % Lymph # (Auto) 1.3 (1.2-4.9) X10*3/uL [place] # (Auto) 0.4 (0.1-1.2) X10*3/uL Eos # (Auto) 0.2 (0.0-0.4) X10*3/uL Baso # (Auto) 0.1 (0.0-0.2) X10*3/uL Abs Immat Gran (auto) 0.02 (0.00-0.03) X10*3/uL Absolute Neuts (auto) 3.9 (2.0-8.3) x10*3/uL Absolute Nucleated RBC 0.000 (0.0-0.012) X10*3/uL Nucleated RBC % (auto) 0.0 (0.0-0.2) /100WBC PT (9.9-13.0) SEC INR (0.9-1.1) APTT (24.1-38.0) SEC Sodium 141 (135-145) mmol/L Potassium 4.4 (3.3-5.1) mmol/L Chloride 106 (96-108) mmol/L Carbon Dioxide 21 L (22-29) mmol/L Anion Gap 18 (12-20) BUN 12 (9-16) mg/dL Creatinine 1.29 (0.5-1.4) mg/dL Estim Creat Clear Calc 45.6 Estimated GFR 41 Random Glucose 100 (60-115) mg/dL Calcium 9.6 (8.4-10.2) mg/dL Troponin I High Sens 10.5 (<3.5-17.0) ng/L B-Natriuretic Peptide 623 H (<100) pg/mL COVID-19 (JULIO) (Negative) COVID-19 Clin Com 09/13/21 09/13/21 Range/Units 16:06 16:06 WBC (4.8-10.8) X10*3/uL RBC (4.20-5.50) X10*6/uL Hgb (12.0-16.0) g/dl Hct (37.0-47.0) % MCV (80.0-98.0) fL MCH (27.0-33.0) pg MCHC (31.0-35.0) g/dl RDW (11.0-16.0) % Plt Count (160-400) X10*3/uL MPV (9.4-12.3) fL Immature Gran % (Auto) (0.0-0.4) % Neut % (Auto) (45-73) % Lymph % (Auto) (20-40) % [place] % (Auto) (2-11) % Eos % (Auto) (0-4) % Baso % (Auto) (0-2) % Lymph # (Auto) (1.2-4.9) X10*3/uL [place] # (Auto) (0.1-1.2) X10*3/uL Eos # (Auto) (0.0-0.4) X10*3/uL Baso # (Auto) (0.0-0.2) X10*3/uL Abs Immat Gran (auto) (0.00-0.03) X10*3/uL Absolute Neuts (auto) (2.0-8.3) x10*3/uL Absolute Nucleated RBC (0.0-0.012) X10*3/uL Nucleated RBC % (auto) (0.0-0.2) /100WBC PT 12.9 (9.9-13.0) SEC INR 1.1 (0.9-1.1) APTT 34.3 (24.1-38.0) SEC Sodium (135-145) mmol/L Potassium (3.3-5.1) mmol/L Chloride (96-108) mmol/L Carbon Dioxide (22-29) mmol/L Anion Gap (12-20) BUN (9-16) mg/dL Creatinine (0.5-1.4) mg/dL Estim Creat Clear Calc Estimated GFR Random Glucose (60-115) mg/dL Calcium (8.4-10.2) mg/dL Troponin I High Sens (<3.5-17.0) ng/L B-Natriuretic Peptide (<100) pg/mL COVID-19 (JULIO) Negative (Negative) COVID-19 Clin Com See Note ECG Data Attestation: I personally reviewed and interpreted this ECG as follows: ECG interpretation date: 09/13/21 ECG interpretation time: 15:51 Prior ECG tracings: available for review Interpretation: EKG AFib with RVR at a rate of 117. QTC 438. Nonischemic/no STEMI Discharge Plan Discharge Clinical Impression: Atrial fibrillation with rapid ventricular response Patient Disposition: Admitted As Inpatient Prescriptions: No Action metoprolol succinate 25 mg tablet extended release 24 hr 25 mg PO DAILY Qty: 90 RF: 1 ferrous sulfate 325 mg (65 mg iron) tablet 325 mg PO DAILY Qty: 90 RF: 1 atorvastatin 80 mg tablet 80 mg PO DAILY Qty: 90 RF: 1 cilostazol 50 mg tablet 50 mg PO BID Qty: 180 RF: 1 omeprazole 20 mg capsule,delayed release(DR/EC) 20 mg PO QAM Qty: 30 RF: 1 aspirin 81 mg tablet,delayed release (DR/EC) 81 mg PO DAILY Qty: 90 RF: 1 amlodipine 5 mg tablet 5 mg PO DAILY Qty: 30 RF: 5 oxybutynin chloride 5 mg tablet 5 mg PO BID Qty: 60 RF: 0 cyanocobalamin (vitamin B-12) [Vitamin B-12] 1,000 mcg Tablet 1,000 mcg PO DAILY RF: 0 cholecalciferol (vitamin D3) [Vitamin D3] 25 mcg (1,000 unit) Tablet 25 mcg PO DAILY RF: 0 furosemide 20 mg tablet 20 mg PO DAILY RF: 0 paroxetine HCl 40 mg tablet 40 mg PO BEDTIME RF: 0 Avonex 30 mcg/0.5 mL pen injector kit 30 mcg IM TU RF: 0 lisinopril 5 mg tablet 5 mg PO DAILY RF: 0 clopidogrel 75 mg tablet 75 mg PO DAILY RF: 0
[2021-09-13 16:31] LABS: INTERNATIONAL NORM RATIO 1.1 (0.9-1.1); Prothrombin Time 12.9 SEC (9.9-13.0)
[2021-09-13 16:33] LABS: Partial Thromboplastin Time 34.3 SEC (24.1-38.0)
--- NOTE | 2021-09-13 16:42 | PHA.MEDREC ---
Pharmacy Consult ? Medication Reconciliation Pharmacy has completed the medication reconciliation.
[2021-09-13 16:45] LABS: COVID-19 Test Negative (Negative); IDNOW Serial# 9DD0AD1C
[2021-09-13 17:00] LABS: Alanine Aminotransferase 13 U/L (0-31); Alkaline Phosphatase 123 U/L (39-117); Aspartate Amino Transferase 16 U/L (5-31); Bilirubin Direct 0.2 mg/dL (0.0-0.5); Bilirubin Total 0.5 mg/dL (0.0-1.0); Total Protein 7.2 g/dL (6.5-8.0)
[2021-09-13] MEDS: Apixaban 5 MG TABLET PO (17:36)
--- NOTE | 2021-09-13 17:59 | P.EN_ITS ---
Event Note Date of Service: 09/14/21 Event Note: Patient came to the hospital because of shortness of breath, palpi tation, intermittent chest tightness. She says that shortness of breath with excersion and chest pain did not change much she which she has on and off at home. But she was having more palpitations. She was seen by her enrichment teacher today and was sent to the hospital because of AFib with RVR. Admission was given because of AFib with RVR-patient's heart rate seems to be improved with 1 dose of Cardizem. Also given Eliquis in the ED. Patient was in the hospital in November : That time treated for CHF, NSTEMI and transferred to [facility]. She said she did not had any stent that time but had cardiac catheterization. Her EF is in the moderate range reduced. During last admission patient had rectal bleed episode-was was seen by GI , she did not had any workup that time-thought to be most likely source for this would be diverticular bleeding or hemorrhoids.? She says that she has black stools but that she relates to her p.o. iron intake. Otherwise denies any gross GI bleed. She has history of prior cad s/p 2stents times(last stent was 1 year back). This patient is seen and examined with APC. Lab imaging, EKG reviewed. Physical exam; Appearance: Alert.? Oriented X3.? not in distress.? Eyes: Pupils equal, round and reactive to light.? Sclera nonicteric.? ENT: Pharynx normal.? Moist mucous membranes. cvs: irregular rythem, [id number] , no murmur res: clear to auscultation ,no rhonchii or wheezing abd: no rebound or guarding ,nt, bs present. ext pulses present , no cyanosis, mild edema neuro: axo3 , nonfocal. assessment and plan coordinated in APCs note, Agree with the plan in addition: 1. afib with rvr : seems to be imrpoving with iv cardizem hr is 90's range will continue po metoprolol for now, received iv heparin trops neg cardio eval-npo for cardizem. 2. hx of rectal bleed in denies any new bleed hold asa, plavix ,AC GI eval further workup since patient needs cardioversion possible for afib ppi
--- NOTE | 2021-09-13 18:14 | PM.IMHP ---
History of Present Illness Date of Service: 09/13/21 Attending physician on admission: Carolee Hardwick Chief Complaint: shortness of breath this is a 66-year-old female who was sent to the emergency department from the gas appliance repairer's office with new onset atrial fibrillation. She was admitted to the hospital for NSTEMI, hypertensive urgency, rectal bleed in november. She was subsequently transferred to [facility] for cardiac catheterization, No interventions were performed at that time. She was being seen in the gas appliance repairer's office for routine follow-up. She reported progressive dyspnea on exertion. She also reported intermittent chest pressure and palpitations which occurred primarily at rest. EKG was obtained in the gas appliance repairer's office and revealed new onset atrial fibrillation. She was sent to the emergency department for further evaluation and was initially in atrial fibrillation with rapid ventricular response with heart rate in the 140s. She received dose of IV diltiazem with good effect. Workup in the emergency department was otherwise unremarkable. She is being admitted the hospital for further management of atrial fibrillation and likely cardioversion in the morning. Review of Systems Review of Systems: Yes all other systems are reviewed and are negative Constitutional: Constitutional: Denies chills and Denies fever(s) Cardiovascular: Cardiovascular: Reports chest pain, Reports rapid heart rate, Reports palpitations and Reports dyspnea on exertion Respiratory: Respiratory: Denies cough and Reports dyspnea on exertion Gastrointestinal: Gastrointestinal: Denies abdominal pain Endocrine: Endocrine: Reports palpitations [facility], [facility] Medical History Acute on chronic systolic (congestive) heart failure Asymmetric blood pressures Atherosclerotic cardiovascular disease CAD (coronary artery disease) Cardiomyopathy CHF (congestive heart failure) COPD (chronic obstructive pulmonary disease) Dyspnea on effort Essential hypertension Left renal artery stenosis Multiple sclerosis Peripheral arterial occlusive disease Personal history of nicotine dependence Pulmonary nodules Functional capacity: independent ambulation Family History Father No problems noted. Mother No problems noted. Brother Diabetes Surgical History History of cholecystectomy (~02/2009) History of heart artery stent (~2018) S/P cardiac cath (~12/2020) S/P insertion of iliac artery stent (~02/2019) Status post angioplasty with stent (~09/2018) Social History Household Members: None Housing: House Do you presently have visiting nurse or other home services: No Alcohol intake: never Patient Tobacco Use Status: Former Tobacco user Quit Date: 2017 Tobacco use type: Cigarette Second Hand Smoke Exposure: No Advance Directives: Yes Advance Directives on File: Yes Advance Directives Date on File: 12/27/20 service: No Current occupational status: retired Meds Allergies Allergy/AdvReac Type Severity Reaction Status Date / Time codeine [Codeine] AdvReac Mild vomiting Verified 09/13/21 15:24 Active Medications: Current Medications Acetaminophen (Acetaminophen 325 Mg Tablet) 650 mg PO Q6H PRN PRN Reason: Pain, Mild (Pain Scale 1-3) Aspirin (Aspirin Enteric Coated 81 Mg Tablet.) 81 mg PO DAILY [facility] Atorvastatin Calcium (Atorvastatin Calcium 80 Mg Tablet) 80 mg PO DAILY [facility] Clopidogrel Bisulfate (Clopidogrel Bisulfate 75 Mg Tablet) 75 mg PO DAILY [facility] Cyanocobalamin (Cyanocobalamin (Vitamin B-12) 1,000 Mcg Tablet) 1,000 mcg PO DAILY [facility] Docusate Sodium (Docusate Sodium 100 Mg Capsule) 100 mg PO DAILY PRN PRN Reason: Constipation Furosemide (Furosemide 20 Mg Tablet) 20 mg PO DAILY [facility]; Protocol Heparin Sodium (Porcine) (Heparin Sodium,Porcine 5,000 Unit/Ml Vial) 3,400 unit 40 unit/kg (3400 unit) IVPUSH PROTOCOL BOLUS PRN; Protocol PRN Reason: 40 unit/kg - Heparin Protocol Heparin Sodium (Porcine) (Heparin Sodium,Porcine 5,000 Unit/Ml Vial) 6,700 unit 80 unit/kg (6700 unit) IVPUSH PROTOCOL BOLUS PRN; Protocol PRN Reason: 80 unit/kg - Heparin Protocol Heparin Sodium/Sodium Chloride () 25,000 unit in 250 mls @ 0 mls/hr IVCONT .Q0M [facility]; Protocol Metoprolol Tartrate (Metoprolol Tartrate 25 Mg Tablet) 25 mg PO BID [facility]; Protocol Non-Formulary Medication (Ferrous Sulfate) 325 mg PO DAILY [facility] Omeprazole (Omeprazole 20 Mg Capsule.) 20 mg PO DAILY@0630 [facility] Ondansetron HCl (Ondansetron Hcl 4 Mg/2 Ml Vial) 4 mg IVPUSH Q8H PRN PRN Reason: Nausea and Vomiting Oxybutynin Chloride (Oxybutynin Chloride Er 5 Mg Tab.Er.24) 10 mg PO DAILY [facility] Paroxetine HCl (Paroxetine Hcl 40 Mg Tablet) 40 mg PO BEDTIME [facility] Pharmacy Consult (Consult Rx Perform Med Rec) 1 each MISCELLANE ONCE PRN PRN Reason: Consult order Sodium Chloride (0.9 % Sodium Chloride Flush 3 Ml Syringe) 3 ml IVFLUSH QSHIFT [facility] Vitamin D (Cholecalciferol (Vitamin D3) 25 Mcg Tablet) 25 mcg PO DAILY [facility] Home Medications Medication Instructions Recorded Confirmed Last Taken Type interferon beta-1a 30 mcg/0.5 mL 30 mcg IM TU 10/03/20 09/13/21 09/13/21 History intramuscular pen kit (Avonex) paroxetine HCl 40 mg tablet 40 mg PO BEDTIME 10/03/20 09/13/21 09/12/21 History cholecalciferol (vitamin D3) 25 25 mcg PO DAILY 12/20/20 09/13/21 09/13/21 History mcg (1,000 unit) tablet (Vitamin D3) cyanocobalamin (vitamin B-12) 1,000 mcg PO DAILY 12/20/20 09/13/21 09/13/21 History 1,000 mcg tablet (Vitamin B-12) furosemide 20 mg tablet 20 mg PO DAILY 05/15/21 09/13/21 09/13/21 History clopidogrel 75 mg tablet 75 mg PO DAILY 09/13/21 09/13/21 09/13/21 History lisinopril 5 mg tablet 5 mg PO DAILY 09/13/21 09/13/21 09/13/21 History Physical Exam Vital Signs and Narrative: Vital Signs: Last Vital Signs Temp 98 F 09/13/21 16:07 Pulse 76 09/13/21 16:14 Resp 20 09/13/21 16:07 BP 106/57 L 09/13/21 16:14 Pulse Ox 95 09/13/21 16:07 Body Mass Index 29.8 Const: General: comfortable, no acute distress, alert and awake Nutritional Appearance: well nourished Orientation/consciousness: patient oriented x3 HENMT: Head: Yes normocephalic and Yes atraumatic Eyes: Sclerae: sclerae normal Resp: Effort & Inspection: normal respiratory effort and no respiratory distress Cardio: Rate: regular rate Rhythm: abnormal rhythm irregularly irregular GI: Palpation (GI): Soft to palpation and nontender Neuro: General: patient oriented x3 Cranial nerves: Yes CN's II-XII intact bilaterally and Yes Bilaterally intact EOM present Extrem: Other: trace leg edema b/l Results Labs CBC and Chem 7: 09/13/21 15:47 09/13/21 15:47 Labs: Laboratory Results - last 24 hr 09/13/21 09/13/21 09/13/21 15:47 15:47 15:47 MCV 83.9 MCH 26.5 L MCHC 31.5 RDW 15.7 Plt Count 293 MPV 9.6 Immature Gran % (Auto) 0.3 Neut % (Auto) 65.8 Lymph % (Auto) 22.0 [place] % (Auto) 7.1 Eos % (Auto) 3.6 Baso % (Auto) 1.2 Lymph # (Auto) 1.3 [place] # (Auto) 0.4 Eos # (Auto) 0.2 Baso # (Auto) 0.1 Abs Immat Gran (auto) 0.02 Absolute Neuts (auto) 3.9 Absolute Nucleated RBC 0.000 Nucleated RBC % (auto) 0.0 PT INR APTT Anion Gap 18 Estim Creat Clear Calc 45.6 Estimated GFR 41 Random Glucose 100 Calcium 9.6 Magnesium 2.0 Total Bilirubin 0.5 Direct Bilirubin 0.2 AST 16 ALT 13 Alkaline Phosphatase 123 H Troponin I High Sens 10.5 B-Natriuretic Peptide 623 H Total Protein 7.2 Albumin 4.0 COVID-19 (JULIO) COVID-19 Clin Com 09/13/21 09/13/21 16:06 16:06 MCV MCH MCHC RDW Plt Count MPV Immature Gran % (Auto) Neut % (Auto) Lymph % (Auto) [place] % (Auto) Eos % (Auto) Baso % (Auto) Lymph # (Auto) [place] # (Auto) Eos # (Auto) Baso # (Auto) Abs Immat Gran (auto) Absolute Neuts (auto) Absolute Nucleated RBC Nucleated RBC % (auto) PT 12.9 INR 1.1 APTT 34.3 Anion Gap Estim Creat Clear Calc Estimated GFR Random Glucose Calcium Magnesium Total Bilirubin Direct Bilirubin AST ALT Alkaline Phosphatase Troponin I High Sens B-Natriuretic Peptide Total Protein Albumin COVID-19 (JULIO) Negative COVID-19 Clin Com See Note Imaging Radiologist's Impressions: Impressions Chest X-Ray 09/13/21 15:29 IMPRESSION: Unremarkable chest exam. Assessment and Plan (1) Atrial fibrillation with rapid ventricular response: Status: Acute this is a 66-year-old female with history of CAD s/p stent placement x 2, HFpEF, HTN, MS, renal artery stenosis sent from cardiology office with new onset atrial fibrillation. atrial fibrillation with RVR received 20 mg IV diltiazem in ED, heart rate now in 70s TSh wnl increase metoprolol to 25mg bid started Eliquis for anticoagulation, [id number] score 5 cardiology evaluation with possible cardioversion, NPO at midnight in anticipation for possible procedure GI consult given previous h/o GIB and need for ongoing anticoagulation chest pain possibly r/t afib ekg similar to previous. trop 10 if recurrent chest pain, will repeat trop CAD s/p stent placement; cardiac cath this year showed stents in circumflex and ostial right coronary artery that were patent continue BB, statin, plavix asa d/c since starting eliquis HFpEF last echocardiogram shows mild to moderately reduced LVEF continue home dose of lasix hypertension h/o KIM BP borderline Will hold lisinopril, Norvasc Monitor blood pressure closely and resume as BP allows h/o MS no acute flare. dalfampridine is NF and on hold mood Continue paroxetine gerd continue omeprazole PVD Continue Pletal, statin ASA discontinued dvt ppx - eulalia attending;- dr hardwick Quality Stroke Does the patient have a stroke diagnosis?: No VTE Prior VTE?: No VTE Risk Level:: Medical - moderate - high VTE Device Contraindication: Treatment Not Indicated VTE Drug Contraindication: N/A - Med Ordered
[2021-09-13] MEDS: Omeprazole 20 MG CAPSULE.DR PO (18:36)
[2021-09-13 18:43] LABS: Hematocrit 35.9 % (37.0-47.0); Hemoglobin 11.5 g/dl (12.0-16.0); Mean Corpuscular Hemoglobin 26.6 pg (27.0-33.0); Mean Corpuscular Volume 82.9 fL (80.0-98.0); Mean Platelet Volume 9.6 fL (9.4-12.3); Platelet Count 275 X10*3/uL (160-400); Red Blood Count 4.33 X10*6/uL (4.20-5.50); Red Cell Distribution Width 15.4 % (11.0-16.0); White Blood Count 5.5 X10*3/uL (4.8-10.8)
[2021-09-13 18:49] LABS: INTERNATIONAL NORM RATIO 1.2 (0.9-1.1); Prothrombin Time 13.7 SEC (9.9-13.0)
[2021-09-13 18:50] LABS: Troponin-I High Sensitivity 10.5 ng/L (<3.5-17.0)
[2021-09-13 18:52] LABS: PTT Heparin Drip 36.8 SEC (53-77.9)
[2021-09-13] MEDS: PARoxetine HCL 40 MG TABLET PO (21:13)
[2021-09-13 22:53] LABS: Appearance Urine CLEAR; Color Urine YELLOW; Glucose Urine UA NEG (NEG); Leukocyte Esterase Urine 1+ (NEG); Nitrite Urine NEG (NEG); PH 5.5 (5.0-8.0); UACC Culture Trigger YES; Urine Blood NEG (NEG); Urine Ketones NEG (NEG); Urine Protein NEG (NEG-TRACE)
[2021-09-13 23:07] LABS: Bacteria Urine 2+ /LPF; Mucus Urine TRACE /LPF; RBC Urine 0-2 /HPF (0); Squamous Epithelial Cell Urine 2+ /LPF
[2021-09-14] VITALS (14 sets, daily range): BP systolic 96–130; BP diastolic 60–89; PULSE 60–122; RESP 16–20; TEMP 36.1–37.1; O2SAT 95–100
--- NOTE | 2021-09-14 06:02 | PC.NURSE ---
pt a&o, no sob or chest pain at this time. holding 6:30am medication per hospitalist due to pt being Npo at this time . Bed on bedside monitor
[2021-09-14 06:52] LABS: MANUAL DIFF FLAG NO
[2021-09-14 07:02] LABS: Basophils Percent Auto 0.6 % (0-2); Eosinophils Absolute Auto 0.2 X10*3/uL (0.0-0.4); Hematocrit 34.4 % (37.0-47.0); Hemoglobin 11.1 g/dl (12.0-16.0); INTERNATIONAL NORM RATIO 1.4 (0.9-1.1); Imm Gran Abs Auto 0.01 X10*3/uL (0.00-0.03); Imm Gran Pct Auto 0.2 % (0.0-0.4); Lymphocytes Absolute Auto 1.4 X10*3/uL (1.2-4.9); Lymphocytes Percent Auto 31.1 % (20-40); Mean Corpuscular HGB Conc 32.3 g/dl (31.0-35.0); Mean Corpuscular Hemoglobin 26.6 pg (27.0-33.0); Mean Corpuscular Volume 82.5 fL (80.0-98.0); Mean Platelet Volume 9.6 fL (9.4-12.3); Monocytes Absolute Auto 0.4 X10*3/uL (0.1-1.2); Monocytes Percent Auto 8.6 % (2-11); Neutrophils Absolute Auto 2.5 x10*3/uL (2.0-8.3); Neutrophils Percent Auto 54.5 % (45-73); Platelet Count 252 X10*3/uL (160-400); Prothrombin Time 15.7 SEC (9.9-13.0); Red Blood Count 4.17 X10*6/uL (4.20-5.50); Red Cell Distribution Width 15.4 % (11.0-16.0); White Blood Count 4.6 X10*3/uL (4.8-10.8)
[2021-09-14 07:22] LABS: Anion Gap 16 (12-20); Blood Urea Nitrogen 14 mg/dL (9-16); Calcium 8.9 mg/dL (8.4-10.2); Carbon Dioxide 21 mmol/L (22-29); Chloride 109 mmol/L (96-108); Creatinine Clr Calc Pharmacy 56.4; Estimated Glomerular Filt Rate 53; Glucose Random 85 mg/dL (60-115); Potassium 3.8 mmol/L (3.3-5.1); Sodium 142 mmol/L (135-145)
--- NOTE | 2021-09-14 07:23 | P.CDIC_ITS ---
CDI Concurrent Query Documentation Clarification: PHYSICIAN'S DOCUMENTATION REQUEST Date of Query: 09/14/21 0723 Patient Name: Nai Garcia Admit Date: 09/13/21 Dear Doctor, A review of the medical record indicates additional documentation may be needed. Please review below and update the documentation accordingly. Clinical Indicators: Risk Factors/Clinical Indicators/Treatments Sent from cardiology office for shortness of breath, new onset Atrial Fibrillation, rate 117-146. Per H&P 09/13/21, Atrial Fibrillation rapid ventricular response If possible, please provide further specificity regarding atrial fibrillation, such as: * Paroxysmal atrial fibrillation: terminates spontaneously or with intervention within 7 days of onset. * Persistent atrial fibrillation: episodes of continuous AF that last more than 7 days and do not self-terminate. * Long lasting persistent atrial fibrillation: episodes of continuous AF that last more than 12 months, * Chronic or Permanent atrial fibrillation: when a decision has been made to accept the presence of AF and there is no further attempt to restore or maintain sinus rhythm. * Other (please specify) * Unable to determine Use of terms such as suspected, likely, concern for, or probable (associated with a specific diagnosis that is being evaluated, monitored, or treated as if it exists) are acceptable and can be coded in the inpatient setting, when docume nted at the time of discharge. Thank you, Lisa Monzon RN Extension: [phone] Please use your independent medical judgment in providing your response. THIS QUERY IS PART OF THE PERMANENT MEDICAL RECORD Provider Response: Other Other Diagnosis: Wrong provider
--- NOTE | 2021-09-14 08:52 | MHC.CM.PN ---
PATIENT LIVES ALONE. SHE USES A [employer] CANE AND A WALKER. NO ELDER CARE SERVICES OR VNA IN THE HOME. HCP ON FILE AND VERIFIED. SHE IS AWARE THAT CASE MANAGEMENT CAN ASSIST WITH ELDER SERVICES REFERRAL IF SHE DECIDES. IMM 09/14 DISCUSSED AND LEFT BEDSIDE PER HER REQUEST.
--- NOTE | 2021-09-14 09:00 | MHC.CM.PN ---
PATIENT HAS BEEN VACCINATED AGAINST COVID-19 THREE PFIZER DOSES: 12/16/20 01/08/21 09/01/21
--- NOTE | 2021-09-14 10:47 | P.CONCA_ITS ---
History of Present Illness History of Present Illness Date of Service: 09/14/21 Requesting physician: Carolee Hardwick Chief complaint: Atrial Fibrillation Narrative: 66-year-old female who is admitted from the cardiology office yesterday by Dr. Lizama. She has known history of coronary artery disease with previous circumflex as well as right coronary artery PCI performed in April and August 2019. She presented again with NSTEMI with hypokinesis of infero lateral and mid inferior segments as well as basal inferior and apical septum akinesis. She was taken to give her cardiac catheterization in December 2020 where she was noticed to have patent stents in the circumflex as well as the right coronary artery. We did IFR assessment of the LAD as well as right coronary artery which were both normal. She is saying she has been short of breath chronically. Recently she was feeling some palpitations also. She came to the office yesterday and was noticed to be in AFib with RVR. She said her breathing is bad and she was admitted for further assessment and management. On discussing with her she is saying that she has chronic shortness of breath. She is denying any chest discomfort. She has been feeling some palpitations. Telemetry showing AFib wi th RVR. She was given Eliquis and her aspirin was stopped. She is currently on Eliquis and Plavix. Clinically not in heart failure. [facility] Past Medical History Medical History Acute on chronic systolic (congestive) heart failure Asymmetric blood pressures Atherosclerotic cardiovascular disease CAD (coronary artery disease) Cardiomyopathy CHF (congestive heart failure) COPD (chronic obstructive pulmonary disease) Dyspnea on effort Essential hypertension Left renal artery stenosis Multiple sclerosis Peripheral arterial occlusive disease Personal history of nicotine dependence Pulmonary nodules Functional capacity: independent ambulation Family History Family History Father No problems noted. Mother No problems noted. Brother Diabetes Surgical History Surgical History History of cholecystectomy (~02/2009) History of heart artery stent (~2018) S/P cardiac cath (~12/2020) S/P insertion of iliac artery stent (~02/2019) Status post angioplasty with stent (~09/2018) Social History Social History Household Members: None Housing: House Do you presently have visiting nurse or other home services: No Alcohol intake: never Patient Tobacco Use Status: Former Tobacco user Quit Date: 2017 Tobacco use type: Cigarette Second Hand Smoke Exposure: No Advance Directives: Yes Advance Directives on File: Yes Advance Directives Date on File: 12/27/20 service: No Current occupational status: retired Meds Allergies Allergy/AdvReac Type Severity Reaction Status Date / Time codeine [Codeine] AdvReac Mild vomiting Verified 09/13/21 15:24 Active Medications: Current Medications Acetaminophen (Acetaminophen 325 Mg Tablet) 650 mg PO Q6H PRN PRN Reason: Pain, Mild (Pain Scale 1-3) Apixaban (Apixaban 5 Mg Tablet) 5 mg PO BID [facility] Last Admin: 09/13/21 21:13 Dose: Not Given Documented by: Atorvastatin Calcium (Atorvastatin Calcium 80 Mg Tablet) 80 mg PO DAILY [facility] Clopidogrel Bisulfate (Clopidogrel Bisulfate 75 Mg Tablet) 75 mg PO DAILY [facility] Cyanocobalamin (Cyanocobalamin (Vitamin B-12) 1,000 Mcg Tablet) 1,000 mcg PO DAILY [facility] Docusate Sodium (Docusate Sodium 100 Mg Capsule) 100 mg PO DAILY PRN PRN Reason: Constipation Ferrous Sulfate (Ferrous Sulfate 324 Mg Tablet.) 324 mg PO DAILY [facility] Furosemide (Furosemide 20 Mg Tablet) 20 mg PO DAILY [facility]; Protocol Metoprolol Tartrate (Metoprolol Tartrate 25 Mg Tablet) 25 mg PO BID [facility]; Protocol Last Admin: 09/13/21 21:13 Dose: Not Given Documented by: Omeprazole (Omeprazole 20 Mg Capsule.) 20 mg PO BID@0630,1630 [facility] Last Admin: 09/14/21 06:06 Dose: Not Given Documented by: Ondansetron HCl (Ondansetron Hcl 4 Mg/2 Ml Vial) 4 mg IVPUSH Q8H PRN PRN Reason: Nausea and Vomiting Oxybutynin Chloride (Oxybutynin Chloride Er 5 Mg Tab.Er.24) 10 mg PO DAILY [facility] Paroxetine HCl (Paroxetine Hcl 40 Mg Tablet) 40 mg PO BEDTIME [facility] Last Admin: 09/13/21 21:13 Dose: 40 mg Documented by: Pharmacy Consult (Consult Rx Perform Med Rec) 1 each MISCELLANE ONCE PRN PRN Reason: Consult order Sodium Chloride (0.9 % Sodium Chloride Flush 3 Ml Syringe) 3 ml IVFLUSH QSHIFT [facility] Last Admin: 09/14/21 02:18 Dose: Not Given Documented by: Vitamin D (Cholecalciferol (Vitamin D3) 25 Mcg Tablet) 25 mcg PO DAILY [facility] Home Medications Medication Instructions Recorded Confirmed Last Taken Type interferon beta-1a 30 mcg/0.5 mL 30 mcg IM TU 10/03/20 09/13/21 09/13/21 History intramuscular pen kit (Avonex) paroxetine HCl 40 mg tablet 40 mg PO BEDTIME 10/03/20 09/13/21 09/12/21 History cholecalciferol (vitamin D3) 25 25 mcg PO DAILY 12/20/20 09/13/21 09/13/21 History mcg (1,000 unit) tablet (Vitamin D3) cyanocobalamin (vitamin B-12) 1,000 mcg PO DAILY 12/20/20 09/13/21 09/13/21 History 1,000 mcg tablet (Vitamin B-12) furosemide 20 mg tablet 20 mg PO DAILY 05/15/21 09/13/21 09/13/21 History clopidogrel 75 mg tablet 75 mg PO DAILY 09/13/21 09/13/21 09/13/21 History lisinopril 5 mg tablet 5 mg PO DAILY 09/13/21 09/13/21 09/13/21 History Physical Exam Vital Signs: Vital Signs: Last Vital Signs Temp 97.6 F 09/14/21 10:38 Pulse 122 H 09/14/21 10:38 Resp 18 09/14/21 10:38 BP 128/87 09/14/21 10:38 Pulse Ox 97 09/14/21 10:38 Body Mass Index 29.8 GENERAL APPEARANCE: in no acute distress, pleasant. NECK: no carotid bruit, no jugular venous distention. SKIN: no suspicious lesions, warm and dry. HEART: no murmurs, irregular rate and rhythm. LUNGS: clear to auscultation bilaterally. ABDOMEN: soft, nontender. EXTREMITIES: no edema. PERIPHERAL PULSES: equal. NEUROLOGIC: No gross deficits, AAO X 3 Objective Labs and Meds Result diagrams: 09/14/21 06:25 09/14/21 06:25 Lab results: Laboratory Results - last 24 hr 09/13/21 09/13/21 09/13/21 15:47 15:47 15:47 WBC 5.9 RBC 4.61 Hgb 12.2 Hct 38.7 MCV 83.9 MCH 26.5 L MCHC 31.5 RDW 15.7 Plt Count 293 MPV 9.6 Immature Gran % (Auto) 0.3 Neut % (Auto) 65.8 Lymph % (Auto) 22.0 [place] % (Auto) 7.1 Eos % (Auto) 3.6 Baso % (Auto) 1.2 Lymph # (Auto) 1.3 [place] # (Auto) 0.4 Eos # (Auto) 0.2 Baso # (Auto) 0.1 Abs Immat Gran (auto) 0.02 Absolute Neuts (auto) 3.9 Absolute Nucleated RBC 0.000 Nucleated RBC % (auto) 0.0 PT INR APTT PTT (Heparin Protocol) Sodium 141 Potassium 4.4 Chloride 106 Carbon Dioxide 21 L Anion Gap 18 BUN 12 Creatinine 1.29 Estim Creat Clear Calc 45.6 Estimated GFR 41 Random Glucose 100 Calcium 9.6 Magnesium 2.0 Total Bilirubin 0.5 Direct Bilirubin 0.2 AST 16 ALT 13 Alkaline Phosphatase 123 H Troponin I High Sens 10.5 B-Natriuretic Peptide 623 H Total Protein 7.2 Albumin 4.0 Urine Color Urine Appearance Urine pH Ur Specific [place] Urine Protein Urine Glucose (UA) Urine Ketones Urine Blood Urine Nitrite Ur Leukocyte Esterase Urine RBC Urine WBC Ur Squamous Epith Cells Urine Bacteria Urine Mucus COVID-19 (JULIO) COVID-19 Clin Com 09/13/21 09/13/21 09/13/21 16:06 16:06 18:25 WBC RBC Hgb Hct MCV MCH MCHC RDW Plt Count MPV Immature Gran % (Auto) Neut % (Auto) Lymph % (Auto) [place] % (Auto) Eos % (Auto) Baso % (Auto) Lymph # (Auto) [place] # (Auto) Eos # (Auto) Baso # (Auto) Abs Immat Gran (auto) Absolute Neuts (auto) Absolute Nucleated RBC Nucleated RBC % (auto) PT 12.9 INR 1.1 APTT 34.3 PTT (Heparin Protocol) Sodium Potassium Chloride Carbon Dioxide Anion Gap BUN Creatinine Estim Creat Clear Calc Estimated GFR Random Glucose Calcium Magnesium Total Bilirubin Direct Bilirubin AST ALT Alkaline Phosphatase Troponin I High Sens 10.5 B-Natriuretic Peptide Total Protein Albumin Urine Color Urine Appearance Urine pH Ur Specific [place] Urine Protein Urine Glucose (UA) Urine Ketones Urine Blood Urine Nitrite Ur Leukocyte Esterase Urine RBC Urine WBC Ur Squamous Epith Cells Urine Bacteria Urine Mucus COVID-19 (JULIO) Negative COVID-19 Clin Com See Note 09/13/21 09/13/21 09/13/21 18:25 18:25 22:47 WBC 5.5 RBC 4.33 Hgb 11.5 L Hct 35.9 L MCV 82.9 MCH 26.6 L MCHC 32.0 RDW 15.4 Plt Count 275 MPV 9.6 Immature Gran % (Auto) Neut % (Auto) Lymph % (Auto) [place] % (Auto) Eos % (Auto) Baso % (Auto) Lymph # (Auto) [place] # (Auto) Eos # (Auto) Baso # (Auto) Abs Immat Gran (auto) Absolute Neuts (auto) Absolute Nucleated RBC 0.000 Nucleated RBC % (auto) 0.0 PT 13.7 H INR 1.2 H APTT PTT (Heparin Protocol) 36.8 L Sodium Potassium Chloride Carbon Dioxide Anion Gap BUN Creatinine Estim Creat Clear Calc Estimated GFR Random Glucose Calcium Magnesium Total Bilirubin Direct Bilirubin AST ALT Alkaline Phosphatase Troponin I High Sens B-Natriuretic Peptide Total Protein Albumin Urine Color YELLOW Urine Appearance CLEAR Urine pH 5.5 Ur Specific [place] 1.010 Urine Protein NEG Urine Glucose (UA) NEG Urine Ketones NEG Urine Blood NEG Urine Nitrite NEG Ur Leukocyte Esterase 1+ H Urine RBC 0-2 Urine WBC 5-9 H Ur Squamous Epith Cells 2+ Urine Bacteria 2+ Urine Mucus TRACE COVID-19 (JULIO) COVID-19 Clin Com 09/14/21 09/14/21 09/14/21 06:25 06:25 06:25 WBC 4.6 L RBC 4.17 L Hgb 11.1 L Hct 34.4 L MCV 82.5 MCH 26.6 L MCHC 32.3 RDW 15.4 Plt Count 252 MPV 9.6 Immature Gran % (Auto) 0.2 Neut % (Auto) 54.5 Lymph % (Auto) 31.1 [place] % (Auto) 8.6 Eos % (Auto) 5.0 H Baso % (Auto) 0.6 Lymph # (Auto) 1.4 [place] # (Auto) 0.4 Eos # (Auto) 0.2 Baso # (Auto) 0.0 Abs Immat Gran (auto) 0.01 Absolute Neuts (auto) 2.5 Absolute Nucleated RBC 0.000 Nucleated RBC % (auto) 0.0 PT 15.7 H INR 1.4 H APTT PTT (Heparin Protocol) Sodium 142 Potassium 3.8 Chloride 109 H Carbon Dioxide 21 L Anion Gap 16 BUN 14 Creatinine 1.04 Estim Creat Clear Calc 56.4 Estimated GFR 53 Random Glucose 85 Calcium 8.9 D Magnesium Total Bilirubin Direct Bilirubin AST ALT Alkaline Phosphatase Troponin I High Sens B-Natriuretic Peptide Total Protein Albumin Urine Color Urine Appearance Urine pH Ur Specific [place] Urine Protein Urine Glucose (UA) Urine Ketones Urine Blood Urine Nitrite Ur Leukocyte Esterase Urine RBC Urine WBC Ur Squamous Epith Cells Urine Bacteria Urine Mucus COVID-19 (JULIO) COVID-19 Clin Com Imaging Radiologist's impression: Impressions Chest X-Ray 09/13/21 15:29 IMPRESSION: Unremarkable chest exam. Assessment and Plan (1) Atrial fibrillation with rapid ventricular response: Status: Acute (2) PAD (peripheral artery disease): Status: Acute (3) Cardiomyopathy: Qualifiers: Cardiomyopathy type: other Qualified Code(s): I42.8 - Other cardiomyopathies Status: Acute 66-year-old female with cardiomyopathy, known coronary artery disease with previous right coronary artery and left circumflex artery PCI, peripheral arterial disease who is presenting for palpitations and shortness of breath and is noticed to be in AFib with RVR. She has been started on Eliquis. Appropriately we stop the aspirin and she should stay on Plavix and Eliquis going forward. I discussed with her about JOAN cardioversion and she is agreeable. The risk and benefit of procedure were discussed with the patient in particular a very low risk of stroke despite using JOAN and anticoagulation. She is agreeable. If she successfully cardioverted then I will consider starting her on amiodarone. Thank you for allowing me to participate in the care of your patient. Please feel free to contact me if you have any questions. Procedures Date of Service Date of Service: 09/14/21
[2021-09-14] MEDS: Apixaban 5 MG TABLET PO ×2 (11:32→21:05)
[2021-09-14] MEDS: Clopidogrel Bisulfate 75 MG TABLET PO (11:32)
[2021-09-14] MEDS: Furosemide 20 MG TABLET PO (11:32)
[2021-09-14] MEDS: Metoprolol Tartrate 25 MG TABLET PO ×2 (11:32→21:05)
[2021-09-14] MEDS: 0.9 % Sodium Chloride Flush 3 ML SYRINGE IVFLUSH ×3 (11:36→21:05)
--- NOTE | 2021-09-14 13:42 | HO.ANESPROP2 ---
[facility] Active Problems Active Problems: All Active Problems (Updated 09/13/21 @ 17:14 by KARLY Jacobs) Atrial fibrillation with rapid ventricular response (Acute) Atrial fibrillation with rapid ventricular response (Acute) Preop cardiovascular exam (Acute) Bilateral cataracts (Acute) Preoperative clearance (Acute) PAD (peripheral artery disease) (Acute) Left renal artery stenosis (Acute) CHF (congestive heart failure) (Acute) Personal history of nicotine dependence (Acute) Essential hypertension (Acute) Cardiomyopathy (Acute) Atherosclerotic cardiovascular disease (Acute) Left leg pain (Acute) Asymmetric blood pressures (Acute) S/P cardiac cath (Acute ~12/2020) Hypertensive emergency (Acute) Acute diastolic (congestive) heart failure (Acute) Acute on chronic systolic (congestive) heart failure (Acute) Rectal bleeding (Acute) NSTEMI (non-ST elevated myocardial infarction) (Acute) CAD (coronary artery disease) (Acute) Hypertensive crisis (Acute) Acute and chronic respiratory failure with hypoxia (Acute) Acute exacerbation of CHF (congestive heart failure) (Acute) Pulmonary nodules (Acute) COPD (chronic obstructive pulmonary disease) (Acute) Dyspnea on effort (Acute) Peripheral arterial occlusive disease (Acute) Past Medical History Medical History Acute on chronic systolic (congestive) heart failure Asymmetric blood pressures Atherosclerotic cardiovascular disease CAD (coronary artery disease) Cardiomyopathy CHF (congestive heart failure) COPD (chronic obstructive pulmonary disease) Dyspnea on effort Essential hypertension Left renal artery stenosis Multiple sclerosis Peripheral arterial occlusive disease Personal history of nicotine dependence Pulmonary nodules Functional capacity: independent ambulation Family History Family History Father No problems noted. Mother No problems noted. Brother Diabetes Family history of problems with anesthesia: No Surgical History Surgical History History of cholecystectomy (~02/2009) History of heart artery stent (~2018) S/P cardiac cath (~12/2020) S/P insertion of iliac artery stent (~02/2019) Status post angioplasty with stent (~09/2018) History of Problems with Anesthesia: No Social History Social History Household Members: None Housing: House Do you presently have visiting nurse or other home services: No Alcohol intake: never Patient Tobacco Use Status: Former Tobacco user Quit Date: 2017 Tobacco use type: Cigarette Second Hand Smoke Exposure: No Use of substances other than those prescribed or required for medical reasons: No Advance Directives: Yes Advance Directives on File: Yes Advance Directives Date on File: 12/27/20 Do you have thoughts of harming others: None Do you have a plan to hurt others: No Plan Recently lost weight without trying: No Nutrition Risks: No Nutritional Risk service: No Current occupational status: retired [employer] Allergies Allergy/AdvReac Type Severity Reaction Status Date / Time codeine [Codeine] AdvReac Mild vomiting Verified 09/13/21 15:24 Active Medications: Current Medications Acetaminophen (Acetaminophen 325 Mg Tablet) 650 mg PO Q6H PRN PRN Reason: Pain, Mild (Pain Scale 1-3) Apixaban (Apixaban 5 Mg Tablet) 5 mg PO BID [facility] Last Admin: 09/14/21 11:32 Dose: 5 mg Documented by: Atorvastatin Calcium (Atorvastatin Calcium 80 Mg Tablet) 80 mg PO DAILY [facility] Last Admin: 09/14/21 11:36 Dose: Not Given Documented by: Clopidogrel Bisulfate (Clopidogrel Bisulfate 75 Mg Tablet) 75 mg PO DAILY [facility] Last Admin: 09/14/21 11:32 Dose: 75 mg Documented by: Cyanocobalamin (Cyanocobalamin (Vitamin B-12) 1,000 Mcg Tablet) 1,000 mcg PO DAILY [facility] Last Admin: 09/14/21 11:36 Dose: Not Given Documented by: Docusate Sodium (Docusate Sodium 100 Mg Capsule) 100 mg PO DAILY PRN PRN Reason: Constipation Ferrous Sulfate (Ferrous Sulfate 324 Mg Tablet.) 324 mg PO DAILY [facility] Last Admin: 09/14/21 11:36 Dose: Not Given Documented by: Furosemide (Furosemide 20 Mg Tablet) 20 mg PO DAILY [facility]; Protocol Last Admin: 09/14/21 11:32 Dose: 20 mg Documented by: Metoprolol Tartrate (Metoprolol Tartrate 25 Mg Tablet) 25 mg PO BID [facility]; Protocol Last Admin: 09/14/21 11:32 Dose: 25 mg Documented by: Omeprazole (Omeprazole 20 Mg Capsule.) 20 mg PO BID@0630,1630 [facility] Last Admin: 09/14/21 06:06 Dose: Not Given Documented by: Ondansetron HCl (Ondansetron Hcl 4 Mg/2 Ml Vial) 4 mg IVPUSH Q8H PRN PRN Reason: Nausea and Vomiting Oxybutynin Chloride (Oxybutynin Chloride Er 5 Mg Tab.Er.24) 10 mg PO DAILY [facility] Last Admin: 09/14/21 11:36 Dose: Not Given Documented by: Paroxetine HCl (Paroxetine Hcl 40 Mg Tablet) 40 mg PO BEDTIME [facility] Last Admin: 09/13/21 21:13 Dose: 40 mg Documented by: Pharmacy Consult (Consult Rx Perform Med Rec) 1 each MISCELLANE ONCE PRN PRN Reason: Consult order Sodium Chloride (0.9 % Sodium Chloride Flush 3 Ml Syringe) 3 ml IVFLUSH QSHIFT [facility] Last Admin: 09/14/21 11:36 Dose: 3 ml Documented by: Vitamin D (Cholecalciferol (Vitamin D3) 25 Mcg Tablet) 25 mcg PO DAILY [facility] Last Admin: 09/14/21 11:36 Dose: Not Given Documented by: Home Medications Medication Instructions Recorded Confirmed Last Taken Type interferon beta-1a 30 mcg/0.5 mL 30 mcg IM TU 10/03/20 09/13/21 09/13/21 History intramuscular pen kit (Avonex) paroxetine HCl 40 mg tablet 40 mg PO BEDTIME 10/03/20 09/13/21 09/12/21 History cholecalciferol (vitamin D3) 25 25 mcg PO DAILY 12/20/20 09/13/21 09/13/21 History mcg (1,000 unit) tablet (Vitamin D3) cyanocobalamin (vitamin B-12) 1,000 mcg PO DAILY 12/20/20 09/13/21 09/13/21 History 1,000 mcg tablet (Vitamin B-12) furosemide 20 mg tablet 20 mg PO DAILY 05/15/21 09/13/21 09/13/21 History clopidogrel 75 mg tablet 75 mg PO DAILY 09/13/21 09/13/21 09/13/21 History lisinopril 5 mg tablet 5 mg PO DAILY 09/13/21 09/13/21 09/13/21 History Exam Exam Date and Time: September 14, 2021 1342 Height,Weight and Vital Signs: Height 5 ft 6 in Weight 83.915 kg Last Vital Signs Temp 97.2 F 09/14/21 11:17 Pulse 103 H 09/14/21 11:32 Resp 18 09/14/21 11:17 BP 128/87 09/14/21 11:32 Pulse Ox 95 09/14/21 11:17 Pertinent Lab Results Pertinent Lab Results: Laboratory Tests 09/13/21 09/13/21 09/13/21 15:47 15:47 15:47 WBC 5.9 RBC 4.61 Hgb 12.2 Hct 38.7 MCV 83.9 MCH 26.5 L MCHC 31.5 RDW 15.7 Plt Count 293 MPV 9.6 Immature Gran % (Auto) 0.3 Neut % (Auto) 65.8 Lymph % (Auto) 22.0 [place] % (Auto) 7.1 Eos % (Auto) 3.6 Baso % (Auto) 1.2 Lymph # (Auto) 1.3 [place] # (Auto) 0.4 Eos # (Auto) 0.2 Baso # (Auto) 0.1 Abs Immat Gran (auto) 0.02 Absolute Neuts (auto) 3.9 Absolute Nucleated RBC 0.000 Nucleated RBC % (auto) 0.0 PT INR APTT PTT (Heparin Protocol) Sodium 141 Potassium 4.4 Chloride 106 Carbon Dioxide 21 L Anion Gap 18 BUN 12 Creatinine 1.29 Estim Creat Clear Calc 45.6 Estimated GFR 41 Random Glucose 100 Calcium 9.6 Magnesium 2.0 Total Bilirubin 0.5 Direct Bilirubin 0.2 AST 16 ALT 13 Alkaline Phosphatase 123 H Troponin I High Sens 10.5 B-Natriuretic Peptide 623 H Total Protein 7.2 Albumin 4.0 Urine Color Urine Appearance Urine pH Ur Specific [place] Urine Protein Urine Glucose (UA) Urine Ketones Urine Blood Urine Nitrite Ur Leukocyte Esterase Urine RBC Urine WBC Ur Squamous Epith Cells Urine Bacteria Urine Mucus COVID-19 (JULIO) COVID-19 Clin Com 09/13/21 09/13/21 09/13/21 16:06 16:06 18:25 WBC RBC Hgb Hct MCV MCH MCHC RDW Plt Count MPV Immature Gran % (Auto) Neut % (Auto) Lymph % (Auto) [place] % (Auto) Eos % (Auto) Baso % (Auto) Lymph # (Auto) [place] # (Auto) Eos # (Auto) Baso # (Auto) Abs Immat Gran (auto) Absolute Neuts (auto) Absolute Nucleated RBC Nucleated RBC % (auto) PT 12.9 INR 1.1 APTT 34.3 PTT (Heparin Protocol) Sodium Potassium Chloride Carbon Dioxide Anion Gap BUN Creatinine Estim Creat Clear Calc Estimated GFR Random Glucose Calcium Magnesium Total Bilirubin Direct Bilirubin AST ALT Alkaline Phosphatase Troponin I High Sens 10.5 B-Natriuretic Peptide Total Protein Albumin Urine Color Urine Appearance Urine pH Ur Specific [place] Urine Protein Urine Glucose (UA) Urine Ketones Urine Blood Urine Nitrite Ur Leukocyte Esterase Urine RBC Urine WBC Ur Squamous Epith Cells Urine Bacteria Urine Mucus COVID-19 (JULIO) Negative COVID-19 Clin Com See Note 09/13/21 09/13/21 09/13/21 18:25 18:25 22:47 WBC 5.5 RBC 4.33 Hgb 11.5 L Hct 35.9 L MCV 82.9 MCH 26.6 L MCHC 32.0 RDW 15.4 Plt Count 275 MPV 9.6 Immature Gran % (Auto) Neut % (Auto) Lymph % (Auto) [place] % (Auto) Eos % (Auto) Baso % (Auto) Lymph # (Auto) [place] # (Auto) Eos # (Auto) Baso # (Auto) Abs Immat Gran (auto) Absolute Neuts (auto) Absolute Nucleated RBC 0.000 Nucleated RBC % (auto) 0.0 PT 13.7 H INR 1.2 H APTT PTT (Heparin Protocol) 36.8 L Sodium Potassium Chloride Carbon Dioxide Anion Gap BUN Creatinine Estim Creat Clear Calc Estimated GFR Random Glucose Calcium Magnesium Total Bilirubin Direct Bilirubin AST ALT Alkaline Phosphatase Troponin I High Sens B-Natriuretic Peptide Total Protein Albumin Urine Color YELLOW Urine Appearance CLEAR Urine pH 5.5 Ur Specific [place] 1.010 Urine Protein NEG Urine Glucose (UA) NEG Urine Ketones NEG Urine Blood NEG Urine Nitrite NEG Ur Leukocyte Esterase 1+ H Urine RBC 0-2 Urine WBC 5-9 H Ur Squamous Epith Cells 2+ Urine Bacteria 2+ Urine Mucus TRACE COVID-19 (JULIO) COVID-19 Clin Com 09/14/21 09/14/21 09/14/21 06:25 06:25 06:25 WBC 4.6 L RBC 4.17 L Hgb 11.1 L Hct 34.4 L MCV 82.5 MCH 26.6 L MCHC 32.3 RDW 15.4 Plt Count 252 MPV 9.6 Immature Gran % (Auto) 0.2 Neut % (Auto) 54.5 Lymph % (Auto) 31.1 [place] % (Auto) 8.6 Eos % (Auto) 5.0 H Baso % (Auto) 0.6 Lymph # (Auto) 1.4 [place] # (Auto) 0.4 Eos # (Auto) 0.2 Baso # (Auto) 0.0 Abs Immat Gran (auto) 0.01 Absolute Neuts (auto) 2.5 Absolute Nucleated RBC 0.000 Nucleated RBC % (auto) 0.0 PT 15.7 H INR 1.4 H APTT PTT (Heparin Protocol) Sodium 142 Potassium 3.8 Chloride 109 H Carbon Dioxide 21 L Anion Gap 16 BUN 14 Creatinine 1.04 Estim Creat Clear Calc 56.4 Estimated GFR 53 Random Glucose 85 Calcium 8.9 D Magnesium Total Bilirubin Direct Bilirubin AST ALT Alkaline Phosphatase Troponin I High Sens B-Natriuretic Peptide Total Protein Albumin Urine Color Urine Appearance Urine pH Ur Specific [place] Urine Protein Urine Glucose (UA) Urine Ketones Urine Blood Urine Nitrite Ur Leukocyte Esterase Urine RBC Urine WBC Ur Squamous Epith Cells Urine Bacteria Urine Mucus COVID-19 (JULIO) COVID-19 Clin Com Airway Mallampati Class: II TM Dist: >3cm Neck ROM: Full Denture: Upper and Lower Heart: IRRR Lungs: CTA Assessment and Plan Assessment Anesthesia Assessment: Anesthesia Plan Discussed, Smoking Cess. Discussed and Chart Reviewed Final Anesthetic Review Family History of Problems with Anesthesia: No History of Problems with Anesthesia: No NPO: Yes ASA Class: III and Emergency Final Preanesthetic Review: No Changes in Pt Med Stat, Meds/Allgs Chart Reviewed, Consent Obtained/Reviewed and Anes Risks/Benef Reviewed Patient Risk: High Procedure Risk: Low Anesthetic Plan Anesthetic Plan: GA Disposition: Standard PACU
--- NOTE | 2021-09-14 14:00 | CA_ITS ---
Transesophageal Echocardiogram Patient (Last, First, Middle): Nai Garcia S Gender: Female Date of : 1955 Age: 66 Procedure Date: 09/14/2021 Procedure Type: Transesophageal Echocardiogram [place] [facility] [place]: 157.48 cm Weight: kg Piggyback Clerk: NEVAEH Referring MD: Wilder Garcia MD Symptoms: Afib Cardioversion Conclusion: ??? Normal left ventricular cavity size. The left ventricular systolic function is mildly decreased. ??? Normal right ventricular cavity size and systolic function. ??? There is no evidence of thrombus or mass in the left atrium. ??? Moderate plaque is seen in the descending thoracic aorta. Findings Left Ventricle Normal left ventricular cavity size. The left ventricular systolic function is mildly decreased. The visually estimated ejection fraction is between 40 45%. There is mild global hypokinesis. Diastolic function is indeterminate on the basis of available data. Right Ventricle Normal right ventricular cavity size and systolic function. Atria There is no evidence of thrombus or mass in the left atrium. LA is dilated. Aortic Valve There is a normal trileaflet aortic valve. There is no aortic valve regurgitation. Mitral Valve The mitral valve appears normal. There is trace mitral valve regurgitation. Pulmonic Valve The pulmonic valve was not well visualized. Tricuspid Valve Normal tricuspid valve structure and function. There is trace tricuspid valve regurgitation. Great Vessels Moderate plaque is seen in the descending thoracic aorta. Pericardium/Pleural There is no evidence of pericardial effusion. Updated by Wilder Garcia on 09:55 AM with Status of Final Wilder Garcia MD electronically signed on 09/19/2021 9:55:30 AM with status of Final
[2021-09-14] MEDS: Lactated Ringers 1,000 ML 50 ML IVCONT (14:37)
--- NOTE | 2021-09-14 14:56 | HO.PM.IMPN ---
Subjective Subjective Date of Service: 09/14/21 Interval History: New onset AFib Review of Systems patient says that she still has palpitations denies any chest pain or shortness of breath currently denies any abdominal pain or fever or chills or cough or phlegm. Physical Exam Vital Signs: Vital Signs: Last Vital Signs Temp 98.8 F 09/14/21 13:48 Pulse 112 H 09/14/21 13:48 Resp 20 09/14/21 13:48 BP 124/89 09/14/21 13:48 Pulse Ox 95 09/14/21 13:48 Body Mass Index 29.8 Appearance: Alert.? Oriented X3.? not in distress.? cvs: irregular rythem, [id number] , no murmur res: clear to auscultation ,no rhonchii or wheezing abd: no rebound or guarding ,nt, bs present. ext pulses present , no cyanosis, mild edema neuro: axo3 , nonfocal. Objective Data Active Medications Acetaminophen (Acetaminophen 325 Mg Tablet) 650 mg PO Q6H PRN PRN Reason: Pain, Mild (Pain Scale 1-3) Apixaban (Apixaban 5 Mg Tablet) 5 mg PO BID REPLACED BY [facility] Last Admin: 09/14/21 11:32 Dose: 5 mg Documented by: KRISHNA Atorvastatin Calcium (Atorvastatin Calcium 80 Mg Tablet) 80 mg PO DAILY REPLACED BY [facility] Last Admin: 09/14/21 11:36 Dose: Not Given Documented by: KRISHNA Non-Admin Reason: NPO Clopidogrel Bisulfate (Clopidogrel Bisulfate 75 Mg Tablet) 75 mg PO DAILY REPLACED BY [facility] Last Admin: 09/14/21 11:32 Dose: 75 mg Documented by: KRISHNA Cyanocobalamin (Cyanocobalamin (Vitamin B-12) 1,000 Mcg Tablet) 1,000 mcg PO DAILY REPLACED BY [facility] Last Admin: 09/14/21 11:36 Dose: Not Given Documented by: KRISHNA Non-Admin Reason: NPO Docusate Sodium (Docusate Sodium 100 Mg Capsule) 100 mg PO DAILY PRN PRN Reason: Constipation Ferrous Sulfate (Ferrous Sulfate 324 Mg Tablet.) 324 mg PO DAILY REPLACED BY [facility] Last Admin: 09/14/21 11:36 Dose: Not Given Documented by: KRISHNA Non-Admin Reason: NPO Furosemide (Furosemide 20 Mg Tablet) 20 mg PO DAILY REPLACED BY [facility]; Protocol Last Admin: 09/14/21 11:32 Dose: 20 mg Documented by: KRISHNA Lactated Ringer's (Lr) 1,000 mls @ 50 mls/hr IVCONT .Q20H REPLACED BY [facility] Last Admin: 09/14/21 14:37 Dose: 50 mls/hr Documented by: ISELA Metoprolol Tartrate (Metoprolol Tartrate 25 Mg Tablet) 25 mg PO BID REPLACED BY [facility]; Protocol Last Admin: 09/14/21 11:32 Dose: 25 mg Documented by: KRISHAN Omeprazole (Omeprazole 20 Mg Capsule.Dr) 20 mg PO BID@0630,1630 REPLACED BY [facility] Last Admin: 09/14/21 06:06 Dose: Not Given Documented by: GRETEL Non-Admin Reason: Physician Approved Ondansetron HCl (Ondansetron Hcl 4 Mg/2 Ml Vial) 4 mg IVPUSH Q8H PRN PRN Reason: Nausea and Vomiting Oxybutynin Chloride (Oxybutynin Chloride Er 5 Mg Tab.Er.24) 10 mg PO DAILY REPLACED BY [facility] Last Admin: 09/14/21 11:36 Dose: Not Given Documented by: KRISHNA Non-Admin Reason: NPO Paroxetine HCl (Paroxetine Hcl 40 Mg Tablet) 40 mg PO BEDTIME REPLACED BY [facility] Last Admin: 09/13/21 21:13 Dose: 40 mg Documented by: LLOYD Pharmacy Consult (Consult Rx Perform Med Rec) 1 each MISCELLANE ONCE PRN PRN Reason: Consult order Sodium Chloride (0.9 % Sodium Chloride Flush 3 Ml Syringe) 3 ml IVFLUSH QSHIFT REPLACED BY [facility] Last Admin: 09/14/21 11:36 Dose: 3 ml Documented by: KRISHNA Vitamin D (Cholecalciferol (Vitamin D3) 25 Mcg Tablet) 25 mcg PO DAILY REPLACED BY [facility] Last Admin: 09/14/21 11:36 Dose: Not Given Documented by: KRISHNA Non-Admin Reason: NPO Labs CBC & Chem 7: 09/14/21 06:25 09/14/21 06:25 Labs: Laboratory Results - last 24 hr 09/13/21 09/13/21 09/13/21 15:47 15:47 15:47 MCV 83.9 MCH 26.5 L MCHC 31.5 RDW 15.7 Plt Count 293 MPV 9.6 Immature Gran % (Auto) 0.3 Neut % (Auto) 65.8 Lymph % (Auto) 22.0 [place] % (Auto) 7.1 Eos % (Auto) 3.6 Baso % (Auto) 1.2 Lymph # (Auto) 1.3 [place] # (Auto) 0.4 Eos # (Auto) 0.2 Baso # (Auto) 0.1 Abs Immat Gran (auto) 0.02 Absolute Neuts (auto) 3.9 Absolute Nucleated RBC 0.000 Nucleated RBC % (auto) 0.0 PT INR APTT PTT (Heparin Protocol) Anion Gap 18 Estim Creat Clear Calc 45.6 Estimated GFR 41 Random Glucose 100 Calcium 9.6 Magnesium 2.0 Total Bilirubin 0.5 Direct Bilirubin 0.2 AST 16 ALT 13 Alkaline Phosphatase 123 H Troponin I High Sens 10.5 B-Natriuretic Peptide 623 H Total Protein 7.2 Albumin 4.0 Urine Color Urine Appearance Urine pH Ur Specific [place] Urine Protein Urine Glucose (UA) Urine Ketones Urine Blood Urine Nitrite Ur Leukocyte Esterase Urine RBC Urine WBC Ur Squamous Epith Cells Urine Bacteria Urine Mucus COVID-19 (JULIO) COVID-[employer] 09/13/21 09/13/21 09/13/21 16:06 16:06 18:25 MCV MCH MCHC RDW Plt Count MPV Immature Gran % (Auto) Neut % (Auto) Lymph % (Auto) [place] % (Auto) Eos % (Auto) Baso % (Auto) Lymph # (Auto) [place] # (Auto) Eos # (Auto) Baso # (Auto) Abs Immat Gran (auto) Absolute Neuts (auto) Absolute Nucleated RBC Nucleated RBC % (auto) PT 12.9 INR 1.1 APTT 34.3 PTT (Heparin Protocol) Anion Gap Estim Creat Clear Calc Estimated GFR Random Glucose Calcium Magnesium Total Bilirubin Direct Bilirubin AST ALT Alkaline Phosphatase Troponin I High Sens 10.5 B-Natriuretic Peptide Total Protein Albumin Urine Color Urine Appearance Urine pH Ur Specific [place] Urine Protein Urine Glucose (UA) Urine Ketones Urine Blood Urine Nitrite Ur Leukocyte Esterase Urine RBC Urine WBC Ur Squamous Epith Cells Urine Bacteria Urine Mucus COVID-19 (JULIO) Negative COVID-[facility] Clin Com See Note 09/13/21 09/13/21 09/13/21 18:25 18:25 22:47 MCV 82.9 MCH 26.6 L MCHC 32.0 RDW 15.4 Plt Count 275 MPV 9.6 Immature Gran % (Auto) Neut % (Auto) Lymph % (Auto) [place] % (Auto) Eos % (Auto) Baso % (Auto) Lymph # (Auto) [place] # (Auto) Eos # (Auto) Baso # (Auto) Abs Immat Gran (auto) Absolute Neuts (auto) Absolute Nucleated RBC 0.000 Nucleated RBC % (auto) 0.0 PT 13.7 H INR 1.2 H APTT PTT (Heparin Protocol) 36.8 L Anion Gap Estim Creat Clear Calc Estimated GFR Random Glucose Calcium Magnesium Total Bilirubin Direct Bilirubin AST ALT Alkaline Phosphatase Troponin I High Sens B-Natriuretic Peptide Total Protein Albumin Urine Color YELLOW Urine Appearance CLEAR Urine pH 5.5 Ur Specific [place] 1.010 Urine Protein NEG Urine Glucose (UA) NEG Urine Ketones NEG Urine Blood NEG Urine Nitrite NEG Ur Leukocyte Esterase 1+ H Urine RBC 0-2 Urine WBC 5-9 H Ur Squamous Epith Cells 2+ Urine Bacteria 2+ Urine Mucus TRACE COVID-19 (JULIO) COVID-19 Clin Com 09/14/21 09/14/21 09/14/21 06:25 06:25 06:25 MCV 82.5 MCH 26.6 L MCHC 32.3 RDW 15.4 Plt Count 252 MPV 9.6 Immature Gran % (Auto) 0.2 Neut % (Auto) 54.5 Lymph % (Auto) 31.1 [place] % (Auto) 8.6 Eos % (Auto) 5.0 H Baso % (Auto) 0.6 Lymph # (Auto) 1.4 [place] # (Auto) 0.4 Eos # (Auto) 0.2 Baso # (Auto) 0.0 Abs Immat Gran (auto) 0.01 Absolute Neuts (auto) 2.5 Absolute Nucleated RBC 0.000 Nucleated RBC % (auto) 0.0 PT 15.7 H INR 1.4 H APTT PTT (Heparin Protocol) Anion Gap 16 Estim Creat Clear Calc 56.4 Estimated GFR 53 Random Glucose 85 Calcium 8.9 D Magnesium Total Bilirubin Direct Bilirubin AST ALT Alkaline Phosphatase Troponin I High Sens B-Natriuretic Peptide Total Protein Albumin Urine Color Urine Appearance Urine pH Ur Specific [place] Urine Protein Urine Glucose (UA) Urine Ketones Urine Blood Urine Nitrite Ur Leukocyte Esterase Urine RBC Urine WBC Ur Squamous Epith Cells Urine Bacteria Urine Mucus COVID-19 (JULIO) COVID-19 Clin Com Microbiology Microbiology Results: Microbiology 09/13/21 22:58 Urine Culture - Preliminary Urine clean catch - Urine mead top No growth to date. Assessment and Plan (1) Atrial fibrillation with rapid ventricular response: Status: Acute (2) CHF (congestive heart failure): Status: Acute Assessment and Plan: 66-year-old female with history of CAD s/p stent placement x 2, HFpEF, HTN, MS, renal artery stenosis sent from cardiology office with new onset atrial fibrillation. 1.atrial fibrillation with RVR received 20 mg IV diltiazem in ED, heart rate now in 70s TSh wnl [id number] score 5 hr is 100-110 adjusted metoprolol to 25mg bid, Eliquis , npo cardiology evaluation with possible cardioversion,? as per Gi -continuen ac , No baldev bleed , h/h stable , Further workup outpatient. 2.chest pain possibly r/t afib ekg similar to previous. trop 10 flat 3.CAD s/p stent placement; cardiac cath this year showed stents in circumflex and ostial right coronary artery that were patent continue BB, statin, plavix asa d/c since starting eliquis 4.HFpEF:last echocardiogram shows mild to moderately reduced LVEF continue home dose of lasix 5.hypertension h/o IKM BP borderline Will hold lisinopril, Norvasc Monitor blood pressure closely and resume as BP allows 6.h/o MS no acute flare. dalfampridine is NF and on hold 7.mood Continue paroxetine 8.gerd continue omeprazole 9.?PVD Continue Pletal, statin ASA discontinued since Patient is started on eliquis Quality Stroke Does the patient have a stroke diagnosis?: No VTE Prior VTE?: No VTE Risk Level:: Medical - moderate - high VTE Device Contraindication: Treatment Not Indicated VTE Drug Contraindication: N/A - Med Ordered
--- NOTE | 2021-09-14 15:15 | HO.CARDIVERS ---
Cardioversion Procedure Note Cardioversion Date of Procedure: 09/14/21 Ordering Provider: Wilder Garcia MD Performing Provider: Wilder Garcia MD Indication for Procedure: Afib with RVR Pre-Op Diagnosis: Afib Post-Op Diagnosis: Afib Performed with Transesophageal Echo: Yes JOAN findings (if JOAN Performed): No LA or PATSY thrombus History: 66 year old female with GONZALEZ and Afib with RVR. Consent: Verbal and Written consent was obtained from the patient before starting. The patient was made aware of the risk of [] Procedure: After consent obtained, defib pads were attached and the patient was sedated by the anesthesia team. Once adequate sedation achieved, We gave single synchronized shock of 200 J. Patient reverted to sinus rhythm with PACs and PVCs. Complications: None Recommendations: c/w meds as before.
[2021-09-14] MEDS: Omeprazole 20 MG CAPSULE.DR PO (16:29)
[2021-09-14] MEDS: Amiodarone HCL 200 MG TABLET 400 MG PO ×2 (16:29→21:04)
[2021-09-14] MEDS: PARoxetine HCL 40 MG TABLET PO (21:05)
[2021-09-15] VITALS (10 sets, daily range): BP systolic 96–138; BP diastolic 53–73; PULSE 58–69; RESP 18–20; TEMP 35.9–36.8; O2SAT 94–99
[2021-09-15 01:32] LABS: CDiff Gene PCR NEGATIVE (Negative)
--- NOTE | 2021-09-15 01:49 | CONS_ITS ---
DATE OF SERVICE: 09/14/2021 REFERRING PHYSICIAN: Carolee Hardwick MD REASON FOR CONSULTATION: GI bleeding and history of atrial fibrillation. HISTORY OF PRESENT ILLNESS: The patient is a pleasant 66-year-old woman known to me from prior evaluation. She was hospitalized in November of this year with shortness of breath and had [id number] KS at that time. She was started on heparin and stools became burgundy colored, her heparin was stopped. She was discharged but readmitted yesterday with complaints of shortness of breath and was found to be in atrial fibrillation. She was seen in the preop area prior to cardioversion. She reports diarrheal symptoms and as an outpatient underwent evaluation with stool testing earlier in the week. She has had no further rectal bleeding. Stool tests have shown normal stool culture and parasite testing is pending. Stool was negative for white blood cells. Her hematocrit on admission was 38.7 and has remained stable. There has been no reported GI bleeding. Of note, her bleeding occurred during her November hospitalization when her partial thromboplastin time was markedly elevated. She has not undergone colonoscopy. PAST MEDICAL HISTORY: 1. Atrial fibrillation, as above. 2. Coronary artery disease with KS in November. She also has a history of cardiac catheterization in December. 3. Cardiomyopathy. 4. Congestive heart failure. 5. Hypertension. 6. Renal artery stenosis. 7. Multiple sclerosis. 8. Peripheral arterial occlusive disease. 9. Pulmonary nodules. 10. COPD. CURRENT MEDICATIONS: Her current medication list is reviewed in the chart. ALLERGIES: CODEINE. FAMILY HISTORY: This is reviewed with the patient and is noncontributory. SOCIAL HISTORY: There is no current substance abuse. REVIEW OF SYSTEMS: SKIN: No pruritus. HEENT: Negative. CARDIOPULMONARY: No shortness of breath or chest pain currently. GASTROINTESTINAL: As above. GENITOURINARY: Negative. NEUROPSYCHIATRIC: Negative. PHYSICAL EXAMINATION: GENERAL: Shows a pleasant female, lying comfortably in bed. VITAL SIGNS: Tachycardia and her monitor worker shows atrial fibrillation at a rate of 120 to 130. SKIN: Anicteric. HEENT: Shows no scleral icterus. NECK: Without lymphadenopathy or thyromegaly. LUNGS: Clear. HEART: Shows tachycardia. ABDOMEN: Soft without focal masses or tenderness. Bowel sounds are present. No organomegaly is noted. EXTREMITIES: Without edema. LABORATORY DATA: Reviewed. IMPRESSION: 1. Diarrhea. 2. Atrial fibrillation with rapid ventricular response. 3. History of gastrointestinal bleeding. RECOMMENDATIONS: At this time, she seems stable from a GI standpoint. Her stool specimens have shown no treatable infectious etiology. I would recommend use of Imodium on a p.r.n. basis for diarrhea. She is on anticoagulation for her atrial fibrillation and this should be continued appropriately. As above, it was noted that her episode of GI bleeding occurred when her PTT was very high on IV heparin. I would recommend monitoring her for any signs of GI bleeding. She should undergo colonoscopy at some point electively when her cardiac status is stable. This can be done as an outpatient. This was discussed with the patient. Thanks for asking me to see her. I will follow her in the hospital with you. MD NIKITA Ramsey/SUNDAY / [phone]
[2021-09-15] MEDS: Omeprazole 20 MG CAPSULE.DR PO ×2 (06:11→18:20)
--- NOTE | 2021-09-15 10:46 | PM.DS ---
DS: Providers Provider Date of Service: 09/15/21 Date of admission: 09/13/21 17:37 Primary care physician: Rod Wakefield MD Consults: 09/13/21 17:55 Consult to Cardiology Routine Consulting Provider: Wilder Garcia Reason for consultation: new afib Has provider been notified: No Consult to Gastroenterology Routine Consulting Provider: Lee Brunson Reason for consultation: h/o gib, needs AC for new afib Has provider been notified: No DS: Diagnosis Discharge Diagnosis (1) Atrial fibrillation with rapid ventricular response: Status: Acute (2) CHF (congestive heart failure): Status: Acute DS: Summary Hospital Course Hospital Course: 66-year-old female who was sent to the emergency department from the solvent process extractor operator's office with new onset atrial fibrillation.? She was admitted to the hospital for NSTEMI, hypertensive urgency, rectal bleed in november. She was subsequently transferred to [facility] for cardiac catheterization, ? No interventions were performed at that time.? She was being seen in the solvent process extractor operator's office for routine follow-up.? She reported? progressive dyspnea on exertion.? She also reported intermittent chest pressure and palpitations which occurred primarily at rest.? EKG was obtained in the solvent process extractor operator's office and revealed new onset atrial fibrillation.? She was sent to the emergency department for further evaluation and was initially in atrial fibrillation with rapid ventricular response with heart rate in the 140s.? She received dose of IV diltiazem with good effect. ? Workup in the emergency department was otherwise unremarkable.? She is being admitted the hospital for further management of atrial fibrillation and likely cardioversion in the morning. Hospital course: Patient came with new onset AFib-subsequently seen by Cardiology and had cardioversion-added amiodarone 400 mg by mouth twice daily for 2 weeks and then can switch to amiodarone 200 mg daily, in addition patient was started on Eliquis and aspirin was discontinued. Patient has chronic diarrhea: Stool studies negative patient denies any abdominal pain or nausea or vomiting-GI recommended Imodium which is added. Since his H&H is stable and has no acute baldev GI bleed. GI recommended to continue anticoagulation. Further management outpatient if with GI for further GI workup. Above management discussed with the patient in detail length she understand and in agreement with the above plan, time spent 50 minutes and 50% time spent on counseling. Significant findings: As above. Procedures performed: None. Treatment and response: As above. Complications: None. Time Spent with Patient Time attestation: Total time spent providing and/or coordinating discharge services: Discharge coordination time: Greater than 30 minutes Quality: Stroke Does the patient have a stroke diagnosis?: No Physical Exam Vital Signs: Vital Signs: Last Vital Signs Temp 98.2 F 09/15/21 07:13 Pulse 62 09/15/21 07:13 Resp 18 09/15/21 07:13 BP 115/61 09/15/21 07:13 Pulse Ox 95 09/15/21 07:13 Body Mass Index 29.8 Physical exam: Appearance: Alert.? Oriented X3.? not in distress.? Eyes: Pupils equal, round and reactive to light.? Sclera nonicteric.? ENT: Pharynx normal.? Moist mucous membranes. cvs: rrr, [id number] , no murmur res: clear to auscultation ,no rhonchii or wheezing abd: no rebound or guarding ,nt, bs present. ext pulses present , no cyanosis ,Gait well balanced well coordinated. neuro: axo3 , nonfocal. DS: Data Data Completed and Pending Labs on day of discharge: Laboratory Results - last 24 hr 09/14/21 23:56 C. difficile Tox B Gene NEGATIVE Preliminary micro results at discharge 09/13/21 22:58 Urine Culture - Preliminary Urine clean catch - Urine mead top No growth to date. Additional Comments Additional comments: cxr:IMPRESSION: Unremarkable chest exam. ? Discharge Plan Discharge Patient Disposition: Home, Self-Care Discharge Diagnosis: afib , Diarrahae Referrals: Rod Wakefield MD [Primary Care Provider] - 1 Week Lee Brunson [Physician] - 1 Week (Follow-up up outpatient.) Discharge Medications: New Eliquis 5 mg Tablet 5 mg PO BID Qty: 60 RF: 0 loperamide [Imodium A-D] 2 mg tablet 2 mg PO Q6H PRN (Reason: diarrhea) Qty: 10 RF: 0 amiodarone 200 mg tablet See Rx Instructions .ROUTE .COMPLEX Qty: 90 RF: 0 Continued metoprolol succinate 25 mg tablet extended release 24 hr 25 mg PO DAILY Qty: 90 RF: 1 ferrous sulfate 325 mg (65 mg iron) tablet 325 mg PO DAILY Qty: 90 RF: 1 atorvastatin 80 mg tablet 80 mg PO DAILY Qty: 90 RF: 1 cilostazol 50 mg tablet 50 mg PO BID Qty: 180 RF: 1 amlodipine 5 mg tablet 5 mg PO DAILY Qty: 30 RF: 5 oxybutynin chloride 5 mg tablet 5 mg PO BID Qty: 60 RF: 0 omeprazole 20 mg capsule,delayed release(DR/EC) 20 mg PO QAM Qty: 30 RF: 1 cyanocobalamin (vitamin B-12) [Vitamin B-12] 1,000 mcg Tablet 1,000 mcg PO DAILY RF: 0 cholecalciferol (vitamin D3) [Vitamin D3] 25 mcg (1,000 unit) Tablet 25 mcg PO DAILY RF: 0 furosemide 20 mg tablet 20 mg PO DAILY RF: 0 paroxetine HCl 40 mg tablet 40 mg PO BEDTIME RF: 0 Avonex 30 mcg/0.5 mL pen injector kit 30 mcg IM TU RF: 0 lisinopril 5 mg tablet 5 mg PO DAILY RF: 0 clopidogrel 75 mg tablet 75 mg PO DAILY RF: 0 Discontinued aspirin 81 mg tablet,delayed release (DR/EC) 81 mg PO DAILY Qty: 90 RF: 1 Discharge Orders: Discharge Order (Routine); Ordered 09/15/21 Ordered By: Carolee Hardwick Diet: advance to usual diet, low fat, low cholesterol and low salt diet Activity on Discharge: As tolerated Stand Alone Forms: Patient Portal Discharge page Care Plan Goals: Patient came with new onset AFib-subsequently seen by Cardiology and had cardioversion-added amiodarone 400 mg by mouth twice daily for 2 weeks and then can switch to amiodarone 200 mg daily, in addition patient was started on Eliquis and aspirin was discontinued. Patient has chronic diarrhea: Stool studies negative patient denies any abdominal pain or nausea or vomiting-GI recommended Imodium which is added. Further management outpatient if with GI for further GI workup. Health Concerns: As above. Plan of Treatment: As above. Assessment: As above.
[2021-09-15] MEDS: Atorvastatin Calcium 80 MG TABLET PO (11:52)
[2021-09-15] MEDS: Metoprolol Succinate ER 25 MG TAB.ER.24H PO (11:52)
[2021-09-15] MEDS: Cyanocobalamin (Vitamin B-12) 1,000 MCG TABLET 1000 MCG PO (11:52)
[2021-09-15] MEDS: Loperamide HCl 2 MG CAPSULE PO (11:52)
[2021-09-15] MEDS: Cholecalciferol (Vitamin D3) 25 MCG TABLET PO (11:53)
[2021-09-15] MEDS: 0.9 % Sodium Chloride Flush 3 ML SYRINGE IVFLUSH ×2 (11:53→18:20)
[2021-09-15] MEDS: Amiodarone HCL 200 MG TABLET 400 MG PO (11:53)
[2021-09-15] MEDS: Clopidogrel Bisulfate 75 MG TABLET PO (11:53)
[2021-09-15] MEDS: Apixaban 5 MG TABLET PO (11:53)
[2021-09-15] MEDS: Furosemide 20 MG TABLET PO (11:53)
[2021-09-15] MEDS: Ferrous Sulfate 324 MG TABLET.DR PO (11:53)
--- NOTE | 2021-09-15 12:36 | P.PNCA_ITS ---
Subjective Subjective Date of Service: 09/15/21 Interval history: Status post cardioversion. She is saying her breathing is better than yesterday. Physical Exam Vital Signs: Last Vital Signs Temp 97.6 F 09/15/21 11:09 Pulse 58 09/15/21 11:53 Resp 18 09/15/21 11:09 BP 120/66 09/15/21 11:53 Pulse Ox 96 09/15/21 11:09 Body Mass Index 29.8 GENERAL APPEARANCE: in no acute distress, pleasant. NECK: no carotid bruit, no jugular venous distention. SKIN: no suspicious lesions, warm and dry. HEART: no murmurs, regular rate and rhythm. LUNGS: clear to auscultation bilaterally. ABDOMEN: soft, nontender. EXTREMITIES: no edema. PERIPHERAL PULSES: equal. NEUROLOGIC: No gross deficits, AAO X 3 Objective Labs and Meds Result diagrams: 09/14/21 06:25 09/14/21 06:25 Lab results: Laboratory Results - last 24 hr 09/14/21 23:56 C. difficile Tox B Gene NEGATIVE Progress Note: A&P Assessment and plan (1) Atrial fibrillation with rapid ventricular response: Status: Acute Assessment and Plan: Pleasant 66-year-old female with dyspnea on exertion and AFib with RVR. She is status post JOAN cardioversion yesterday. She was started on amiodarone 400 mg twice a day. I think she should stay on amiodarone for 10 days and then she can be changed to 200 mg. Clinically stable from our end. She should be on Eliquis and Plavix going forward. Signing off for now. Thank you for allowing me to participate in the care of your patient. Please feel free to contact me if you have any questions. Fall Risk Details Current Medications: Current Medications Acetaminophen (Acetaminophen 325 Mg Tablet) 650 mg PO Q6H PRN PRN Reason: Pain, Mild (Pain Scale 1-3) Albuterol/Ipratropium (Albuterol/Iprat 2.5/0.5mg 3 Ml Ampul.Neb) 3 ml INHALE RQ4H WHILE AWAKE [facility] Amiodarone HCl (Amiodarone Hcl 200 Mg Tablet) 400 mg PO BID [facility] Last Admin: 09/15/21 11:53 Dose: 400 mg Documented by: Apixaban (Apixaban 5 Mg Tablet) 5 mg PO BID [facility] Last Admin: 09/15/21 11:53 Dose: 5 mg Documented by: Atorvastatin Calcium (Atorvastatin Calcium 80 Mg Tablet) 80 mg PO DAILY [facility] Last Admin: 09/15/21 11:52 Dose: 80 mg Documented by: Clopidogrel Bisulfate (Clopidogrel Bisulfate 75 Mg Tablet) 75 mg PO DAILY [facility] Last Admin: 09/15/21 11:53 Dose: 75 mg Documented by: Cyanocobalamin (Cyanocobalamin (Vitamin B-12) 1,000 Mcg Tablet) 1,000 mcg PO DAILY [facility] Last Admin: 09/15/21 11:52 Dose: 1,000 mcg Documented by: Docusate Sodium (Docusate Sodium 100 Mg Capsule) 100 mg PO DAILY PRN PRN Reason: Constipation Ferrous Sulfate (Ferrous Sulfate 324 Mg Tablet.) 324 mg PO DAILY [facility] Last Admin: 09/15/21 11:53 Dose: 324 mg Documented by: Furosemide (Furosemide 20 Mg Tablet) 20 mg PO DAILY [facility]; Protocol Last Admin: 09/15/21 11:53 Dose: 20 mg Documented by: Loperamide HCl (Loperamide Hcl 2 Mg Capsule) 2 mg PO Q4H PRN PRN Reason: diarrahae Last Admin: 09/15/21 11:52 Dose: 2 mg Documented by: Metoprolol Succinate (Metoprolol Succinate Er 25 Mg Tab.Er.24h) 25 mg PO DAILY [facility]; Protocol Last Admin: 09/15/21 11:52 Dose: 25 mg Documented by: Omeprazole (Omeprazole 20 Mg Capsule.) 20 mg PO BID@0630,1630 [facility] Last Admin: 09/15/21 06:11 Dose: 20 mg Documented by: Ondansetron HCl (Ondansetron Hcl 4 Mg/2 Ml Vial) 4 mg IVPUSH Q8H PRN PRN Reason: Nausea and Vomiting Oxybutynin Chloride (Oxybutynin Chloride Er 5 Mg Tab.Er.24) 10 mg PO DAILY [facility] Last Admin: 09/15/21 11:51 Dose: 10 mg Documented by: Paroxetine HCl (Paroxetine Hcl 40 Mg Tablet) 40 mg PO BEDTIME [facility] Last Admin: 09/14/21 21:05 Dose: 40 mg Documented by: Pharmacy Consult (Consult Rx Perform Med Rec) 1 each MISCELLANE ONCE PRN PRN Reason: Consult order Sodium Chloride (0.9 % Sodium Chloride Flush 3 Ml Syringe) 3 ml IVFLUSH QSHIFT [facility] Last Admin: 09/15/21 11:53 Dose: 3 ml Documented by: Vitamin D (Cholecalciferol (Vitamin D3) 25 Mcg Tablet) 25 mcg PO DAILY [facility] Last Admin: 09/15/21 11:53 Dose: 25 mcg Documented by: Time Spent With Patient Time: Total time spent is greater than 50% in coordination of care (as documented) at patient's floor/unit and/or counseling patient: Time with patient: 15 - 24 minutes Progress Note: Quality Stroke Does the patient have a stroke diagnosis?: No Procedures Date of Service Date of Service: 09/15/21
--- NOTE | 2021-09-15 12:36 | MHC.CM.PN ---
Addendum entered by Judit Cowan 09/16/21 08:37: CM RECEIVED A MESSAGE LATE YESTERDAY THAT [facility]OULD BE ABLE TO PROVIDE PTS PT SERVICES SHE IS JUST WITHIN THEIR SERVICE AREA. THEY DO HAVE A MANAGER FLORAL HOWEVER SHE IS CURRENTLY AT CAPACITY. YOLY FROM [facility] INDICATED SHE WOULD SET HOME CARE SERVICES UP FOR THE PT [facility]. Addendum entered by Judit Cowan 09/15/21 16:18: BECAUSE PT LIVES IN [place], [facility] MAY NOT BE ABLE TO PROVIDE SERVICES. PER PTS REQUEST, CM MADE REFERRALS AND WILL CONTACT HER TOMORROW WITH ACCEPTING AGENCY INFORMATION Addendum entered by Judit Cowan 09/15/21 16:07: RN BLAISE CONTACTED PTS PHARMACY TO DETERMINE ELIQUIS COVERAGE. SHE REPORTS SHE WAS INFORMED THE PT IS UNABLE TO USE A COUPON AND HER COPAY WILL BE $111. CM MET WITH PT TO INFORM HER OF HE COPAY AMOUNT. SHE REPORTS SHE WILL BE ABLE TO GET THE MEDICATION AND SHE IS AWARE THAT IT IS IMPORTANT. PT WILL DC HOME TODAY WITH [facility] HOME CARE FOR PT, THEY WILL ALSO REFER TO [facility] FOR MANAGER FLORAL SERVICES. PT WILL SELF ARRANGE TRANSPORTATION Addendum entered by Judit Cowan 09/15/21 15:27: ELIQUIS COUPON PROVIDED Addendum entered by Judit Cowan 09/15/21 15:00: PT HAS BEEN SEEN BY PT AND CLEARED TO GO HOME WITH SERVICES. REFERRALS HAVE BEEN MADE TO [facility] FOR PT AND MANAGER FLORAL SERVICES. AWAITING RESPONSES Addendum entered by Judit Cowan 09/15/21 14:20: CM MET WITH PT AGAIN. PT REPORTS SHE WALKED WITH THE NURSE AND FEELS SHE CAN GO HOME. SHE REPORTS SHE IS AGREEABLE TO HOME SERVICES BUT ONLY PT AND A MANAGER FLORAL, NO PENITENTIARY. CM WILL MAKE REFERRALS Original Note: CM MET WITH PT THIS MORNING TO DISCUSS DC PLANS. AT THAT TIME PT REPORTED SHE WAS NOT INTERESTED IN [facility] SHE HAD THEM IN THE PAST AND DID NOT FEEL THEY WERE BENEFICIAL. PT REPORTED SHE WOULD DC HOME WITH NO SERVICES AND WOULD CALL A FRIEND TO TRANSPORT. LATER IN THE DAY, CM WAS INFORMED A PT EVAL HAD BEEN ORDERED. CM MET WITH PT AGAIN WHO STATES SHE DOES NOT WANT TO GO TO [facility] BUT IS WORRIED SHE WILL NOT BE ABLE TO MANAGE AT HOME ON HER OWN. PER DISCUSSION, REFERRALS WERE SENT TO [facility]. PT EVAL WILL BE SENT ONCE COMPLETE. PT MEDICALLY READY TO DC TODAY DISPOSITION PENDING PT EVAL AND BED AVAILABILITY IF STR IS INDICATED. TRANSPORTATION TBD BY DISPO
[2021-09-15] MEDS: Furosemide 20 MG/2 ML VIAL IVPUSH (13:56)
--- NOTE | 2021-09-15 14:41 | HO.POSTANES ---
Post Anesthesia Evaluation Post Anesthesia Evaluation Vital Signs: Vital Signs Temp Pulse Resp BP Pulse Ox 09/15/21 11:53 58 120/66 09/15/21 11:52 58 120/66 09/15/21 11:09 97.6 F 58 18 120/66 96 09/15/21 07:13 98.2 F 62 18 115/61 95 09/15/21 03:32 97.8 F 69 18 96/53 L 96 Anesthesia: Monitored Mental Status: Awake Pain Control: Satisfactory Nausea/Vomiting: None Hydration: Adequate Anesthesia-Related Issues: No Anes. Related Issues
[2021-09-15] MEDS: Albuterol/Iprat 2.5/0.5MG 3 ML AMPUL.NEB INHALE (15:18)
--- NOTE | 2021-09-15 16:06 | W.MHC.F2F ---
Service Date Service Date: 09/15/21 Encounter Date of encounter: 09/15/21 Reasons for Services Signs and symptoms assessed: AFib, diarrhea Reason for physical therapy: home safety and mobility, therapeutic exercises, restore joint function, gait/transfer training, assess need for DME, ADL training, energy conservation and other MD Overseeing Care: Rod Wakefield Homebound: Leaving the home is medically contraindicated at this time without the asist of a device and/or another person due th the listed conditions above and below. Homebound supporting statement: Patient is generalized weak and need PT at home, also upper caser working on CREDIT RESOLUTION REPRESENTATIVE. Certification: Based on the above findings, I certify that this patient is confined to the home and needs intermittent penitentiary care, physical therapy and/or speech therapy, or continues to need occupational therapy. The patient is under my care, and I have initiated the establishment of the plan of care. The patient will be followed by a physician who will periodically review the plan of care.
== END 2021-09-15 19:00 | disposition home or self-care (01) | DRG 309 ==
LOC: HO.ED 17:14 → HO.EDOVER 17:51 → HO.IMC 09-14 07:45
PROVIDERS: Internal Medicine; Internal Medicine Cardiovascular Disease; Physician Assistant; Admitting Provider Physician Assistant Medical; Emergency Provider Internal Medicine; PCP Internal Medicine; Visit Provider Internal Medicine
PROC: 5A2204Z Restoration of Cardiac Rhythm, Single (ICD-10-PCS; principal; 2021-09-14 14:00)
DX: I48.91 Unspecified atrial fibrillation (principal); I50.32 Chronic diastolic (congestive) heart failure; G35 Multiple sclerosis; I25.10 Atherosclerotic heart disease of native coronary artery without angina pectoris; I42.8 Other cardiomyopathies; I73.9 Peripheral vascular disease, unspecified; Z20.822 Contact with and (suspected) exposure to COVID-19; Z95.1 Presence of aortocoronary bypass graft; Z87.891 Personal history of nicotine dependence; K52.9 Noninfective gastroenteritis and colitis, unspecified; I11.0 Hypertensive heart disease with heart failure; Z88.5 Allergy status to narcotic agent; Z79.01 Long term (current) use of anticoagulants; Z79.02 Long term (current) use of antithrombotics/antiplatelets; Z79.51 Long term (current) use of inhaled steroids; Z79.899 Other long term (current) drug therapy
CPT/HCPCS: 36415; 71045; 80048; 80076; 81001; 83735; 83880; 84484; 85025; 85027; 85610; 85730; 87045; 87046; 87086; 87147; 87493; 87635; 92960; 93005; 93312; 94640; 97161; 99212; 99285; J1940

== ENCOUNTER → 2021-10-10 14:51 | Outpatient (REF) | payer MEDICARE, BC, SELFPAY ==
--- NOTE | 2021-10-10 14:54 | HM_ITS ---
Total monitoring time 3 days and 1 hour. Underlying rhythm is sinus. Minimum heart rate 45/Min. Maximum 109/Min. Average 62/Min. No atrial fibrillation or flutter or AV blocks or pauses. Rare supraventricular ectopy with minimal burden. No patient events. Nonspecific ST depression noted during sinus tachycardia. Correlate clinically. Baseline ST segment abnormality. MTDD
== END ==
LOC: HO.CARD 14:51
PROVIDERS: PCP Internal Medicine; Visit Provider Internal Medicine
DX: I48.91 Unspecified atrial fibrillation (principal)
CPT/HCPCS: 93242

== ENCOUNTER 2021-10-22 13:51 | Outpatient (REF) | payer MEDICARE, BC, SELFPAY ==
--- NOTE | ~2021-10-22 | US_ITS ---
EXAMINATION: US NONINVASIVE ASSESSMENT OF THE ARTERIES OF BOTH LOWER EXTREMITIES WITH ANKLE PRESSURE MEASUREMENTS, ANKLE BRACHIAL INDICES, PVR MEASUREMENTS AND BILATERAL LOWER EXTREMITY DUPLEX. CLINICAL INFORMATION: Peripheral vascular disease. Bilateral SFA stents. TECHNIQUE: Ankle pressure measurements, ankle brachial indices and PVR tracings were obtained of the lower extremity arterial system bilaterally. In addition, duplex Doppler techniques with wave form analysis and measurement of velocities in the common femoral, profunda femoral, superficial femoral, popliteal and tibial arteries was performed. The study was performed only at rest. COMPARISON: Duplex arterial ultrasound on 12/20/2020, CTA chest on 12/20/2020 FINDINGS: NONINVASIVE ASSESSMENT OF THE ARTERIES OF BOTH LOWER EXTREMITIES WITH ABIs: RIGHT LEG: Right ankle-brachial index: 0.88 PVR (ankle): Dampened LEFT LEG: Ankle-brachial index: 0.88 PVR (ankle): Dampened Right brachial BP: 180 mmHg Left brachial BP: 128 mmHg BILATERAL LOWER EXTREMITY DUPLEX ULTRASOUND: RIGHT LEG: Common femoral artery: 476 cm/s, Diastolic flow reversal: Yes Profunda femoris artery: 65.7 cm/s, Diastolic flow reversal: Yes Superficial femoral artery (proximal): 152 cm/s, Diastolic flow reversal: Yes SFA stent (proximal): 165 cm/s, Diastolic flow reversal: Yes SFA stent (mid): 110 cm/s, Diastolic flow reversal: Yes SFA stent (distal): 101 cm/s, Diastolic flow reversal: Yes Superficial femoral artery (distal): 56.3 cm/s, Diastolic flow reversal: Yes Popliteal artery: 66.8 cm/s, Diastolic flow reversal: Yes Posterior tibial artery: 64.0 cm/s, Diastolic flow reversal: Yes LEFT LEG: Common femoral artery: 149 cm/s, Diastolic flow reversal: Yes Profunda femoris artery: 84.1 cm/s, Diastolic flow reversal: Yes Superficial femoral artery (proximal): 72.7 cm/s, Diastolic flow reversal: Yes SFA stent (proximal): 90.9 cm/s, Diastolic flow reversal: Yes SFA stent (mid): 110 cm/s, Diastolic flow reversal: Yes SFA stent (distal): 378 cm/s, Diastolic flow reversal: Yes Superficial femoral artery (distal): 220 cm/s, Diastolic flow reversal: Yes Popliteal artery: 38.9 cm/s, Diastolic flow reversal: Yes Posterior tibial artery: 38.6 cm/s, Diastolic flow reversal: Yes US/US arterial duplex LE IMPRESSION: RIGHT LEG: MISSY 0.88. Markedly elevated velocity within the right common femoral artery suggests a high-grade stenosis. A right superficial femoral artery stent appears patent without flow-limiting stenosis. No additional hemodynamically significant outflow stenosis identified. LEFT LEG: MISSY 0.88. Elevated velocity within the distal left SFA stent and distal left SFA is consistent with at least a 75% stenosis. There is a discrepancy between the blood pressures of the right upper extremity (180 mmHg) versus the left upper extremity (128 mmHg). Review of a CTA Chest on 12/20/2020 does not reveal any high-grade subclavian stenosis. Further evaluation with CT of the chest may be helpful for further evaluation if clinically indicated. MISSY Reference: - >0.97-1.25 = normal - no significant arterial disease - 0.75-0.96 = mild peripheral arterial disease - 0.5-0.74 = moderate peripheral arterial disease - <0.50 = severe peripheral arterial disease
== END 2021-10-22 13:52 | disposition home or self-care (01) ==
LOC: HO.US 13:51
PROVIDERS: PCP Internal Medicine; Visit Provider Surgery Vascular Surgery
DX: I73.9 Peripheral vascular disease, unspecified (principal)
CPT/HCPCS: 93923; 93925

== ENCOUNTER → 2021-10-30 13:19 | Outpatient (BNVA) | payer MEDICARE, BC, SELFPAY | PROVIDERS: PCP Internal Medicine; Referring Provider Internal Medicine; Visit Provider Internal Medicine | DX: I25.10 Atherosclerotic heart disease of native coronary artery without angina pectoris (principal); I48.0 Paroxysmal atrial fibrillation; I42.8 Other cardiomyopathies; I10 Essential (primary) hypertension | CPT/HCPCS: 93005; 99212 ==

== ENCOUNTER → 2021-11-08 13:53 | Outpatient (BNVA) | payer MEDICARE, BC, SELFPAY | PROVIDERS: PCP Internal Medicine; Visit Provider Surgery Vascular Surgery | DX: I73.9 Peripheral vascular disease, unspecified (principal) | CPT/HCPCS: 99212 ==

== ENCOUNTER 2021-12-07 07:46 | Day surgery (SDC) | payer MEDICARE, BC, SELFPAY ==
[2021-12-03 16:54] VITALS: BMI 28.2
--- NOTE | 2021-12-06 13:04 | P.CONAN_ITS ---
Documented by User: Amanda Mcintosh NP 12/06/21 13:17 HPI - Anesthesia Eval Consult details Narrative: 66yo F for Upper Endoscopy and Colonoscopy JOAN/Cardioversion 08/2021 Cardiac cleared [facility] Active Problems Active Problems: All Active Problems (Updated 11/08/21 @ 14:52 by Abimael Marcelo MD) PAF (paroxysmal atrial fibrillation) (Acute) Atrial fibrillation with rapid ventricular response (Acute) Atrial fibrillation with rapid ventricular response (Acute) Preop cardiovascular exam (Acute) Bilateral cataracts (Acute) Preoperative clearance (Acute) PAD (peripheral artery disease) (Acute) Left renal artery stenosis (Acute) CHF (congestive heart failure) (Acute) Personal history of nicotine dependence (Acute) Essential hypertension (Acute) Cardiomyopathy (Acute) Atherosclerotic cardiovascular disease (Acute) Left leg pain (Acute) Asymmetric blood pressures (Acute) S/P cardiac cath (Acute ~12/2020) Hypertensive emergency (Acute) Acute diastolic (congestive) heart failure (Acute) Acute on chronic systolic (congestive) heart failure (Acute) Rectal bleeding (Acute) NSTEMI (non-ST elevated myocardial infarction) (Acute) CAD (coronary artery disease) (Acute) Hypertensive crisis (Acute) Acute and chronic respiratory failure with hypoxia (Acute) Acute exacerbation of CHF (congestive heart failure) (Acute) Pulmonary nodules (Acute) COPD (chronic obstructive pulmonary disease) (Acute) Dyspnea on effort (Acute) Peripheral arterial occlusive disease (Acute) Past Medical History Medical History Acute on chronic systolic (congestive) heart failure Asymmetric blood pressures Atherosclerotic cardiovascular disease CAD (coronary artery disease) Cardiomyopathy CHF (congestive heart failure) COPD (chronic obstructive pulmonary disease) Dyspnea on effort Essential hypertension Left renal artery stenosis Multiple sclerosis Peripheral arterial occlusive disease Personal history of nicotine dependence Pulmonary nodules Family History Family History Father No problems noted. Mother No problems noted. Brother Diabetes Family history of problems with anesthesia: No Surgical History Surgical History History of cholecystectomy (~02/2009) History of heart artery stent (~2018) S/P cardiac cath (~12/2020) S/P insertion of iliac artery stent (~02/2019) Status post angioplasty with stent (~09/2018) History of Problems with Anesthesia: No Social History Social History Household Members: None Housing: House Are you a primary residential care officer to a significant other at home: No Do you presently have visiting nurse or other home services: No Alcohol intake: never Patient Tobacco Use Status: Former Tobacco user Quit Date: 2017 Tobacco use type: Cigarette e-Cigarette/Vaping Use: Never Used Second Hand Smoke Exposure: No Have you been hit, kicked, punched, or otherwise hurt by someone within the past year? If so, by whom?: No Are you DNR?: No Advance Directives: Yes Advance Directives Information Provided: No Advance Directives on File: No Advance Directives Date on File: 12/27/20 Recently lost weight without trying: No service: No Current occupational status: retired [employer] Allergies Allergy/AdvReac Type Severity Reaction Status Date / Time codeine [Codeine] AdvReac Mild vomiting Verified 12/03/21 16:54 Home Medications Medication Instructions Recorded Confirmed Last Taken Type interferon beta-1a 30 mcg/0.5 mL 30 mcg IM TU 10/03/20 12/03/21 09/13/21 History intramuscular pen kit (Avonex) paroxetine HCl 40 mg tablet 40 mg PO BEDTIME 10/03/20 12/03/21 09/12/21 History cholecalciferol (vitamin D3) 25 25 mcg PO DAILY 12/20/20 12/03/21 09/13/21 History mcg (1,000 unit) tablet (Vitamin D3) cyanocobalamin (vitamin B-12) 1,000 mcg PO DAILY 12/20/20 12/03/21 09/13/21 History 1,000 mcg tablet (Vitamin B-12) furosemide 20 mg tablet 20 mg PO DAILY 05/15/21 12/03/21 09/13/21 History lisinopril 2.5 mg tablet 5 mg PO DAILY 11/08/21 12/03/21 Unknown History Exam Exam Date and Time: December 06, 2021 1304 Height,Weight and Vital Signs: Height 5 ft 6 in Weight 79.379 kg Narrative Narrative: EKG 10/2021 sinus rhythm at 66/Min; ST-T changes with slight depression in the inferior and lateral leads.? Normal [place]; QTc slightly prolonged at 478 milliseconds Per 10/2021 Cardiol OV Note In the most recent cardiac catheterization, stents in the circumflex and ostial right coronary artery but patent.? IFR across the LAD as well as mid RCA were negative.? May continue medical therapy for stable CAD.? Continue aspirin.? Continue beta-blockers and statins. JOAN 08/2021 Conclusion: ??? Normal left ventricular cavity size.? The left ventricular ? ? systolic function is mildly decreased. ? Normal right ventricular cavity size and systolic function.? There is no evidence of thrombus or mass in the left atrium. ? Moderate plaque is seen in the descending thoracic aorta.? ? Assessment and Plan Assessment Anesthesia Assessment: Chart Reviewed Final Anesthetic Review Family History of Problems with Anesthesia: No History of Problems with Anesthesia: No Documented by User: Jem Paz 12/07/21 09:28 [facility] Past Medical History Medical History Acute on chronic systolic (congestive) heart failure Asymmetric blood pressures Atherosclerotic cardiovascular disease CAD (coronary artery disease) Cardiomyopathy CHF (congestive heart failure) COPD (chronic obstructive pulmonary disease) Dyspnea on effort Essential hypertension Left renal artery stenosis Multiple sclerosis Peripheral arterial occlusive disease Personal history of nicotine dependence Pulmonary nodules Family History Family History Father No problems noted. Mother No problems noted. Brother Diabetes Surgical History Surgical History History of cholecystectomy (~02/2009) History of heart artery stent (~2018) S/P cardiac cath (~12/2020) S/P insertion of iliac artery stent (~02/2019) Status post angioplasty with stent (~09/2018) Social History Social History Household Members: None Housing: House Are you a primary residential care officer to a significant other at home: No Do you presently have visiting nurse or other home services: No Alcohol intake: never Patient Tobacco Use Status: Former Tobacco user Quit Date: 2017 Tobacco use type: Cigarette e-Cigarette/Vaping Use: Never Used Second Hand Smoke Exposure: No Have you been hit, kicked, punched, or otherwise hurt by someone within the past year? If so, by whom?: No Are you DNR?: No Advance Directives: Yes Advance Directives Information Provided: No Advance Directives on File: No Advance Directives Date on File: 12/27/20 Recently lost weight without trying: No service: No Current occupational status: retired Meds Allergies Allergy/AdvReac Type Severity Reaction Status Date / Time codeine [Codeine] AdvReac Mild vomiting Verified 12/03/21 16:54 Home Medications Medication Instructions Recorded Confirmed Last Taken Type interferon beta-1a 30 mcg/0.5 mL 30 mcg IM TU 10/03/20 12/03/21 09/13/21 History intramuscular pen kit (Avonex) paroxetine HCl 40 mg tablet 40 mg PO BEDTIME 10/03/20 12/03/21 09/12/21 History cholecalciferol (vitamin D3) 25 25 mcg PO DAILY 12/20/20 12/03/21 09/13/21 History mcg (1,000 unit) tablet (Vitamin D3) cyanocobalamin (vitamin B-12) 1,000 mcg PO DAILY 12/20/20 12/03/21 09/13/21 History 1,000 mcg tablet (Vitamin B-12) furosemide 20 mg tablet 20 mg PO DAILY 05/15/21 12/03/21 09/13/21 History lisinopril 2.5 mg tablet 5 mg PO DAILY 11/08/21 12/03/21 Unknown History Exam Airway Mallampati Class: II Neck ROM: Full Loose/Missing/Broken Teeth: Yes (Chipped ) Heart: irregular Lungs: bl breath sounds Assessment and Plan Assessment Anesthesia Assessment: Anesthesia Plan Discussed Final Anesthetic Review NPO: Yes ASA Class: III Final Preanesthetic Review: Meds/Allgs Chart Reviewed, Consent Obtained/Reviewed and Anes Risks/Benef Reviewed Patient Risk: High Procedure Risk: Intermediate Anesthetic Plan Anesthetic Plan: MAC: Disposition: Standard PACU
[2021-12-07 08:17] VITALS: BP 132/67; PULSE 49; RESP 18; TEMP 36.3; O2SAT 99; BMI 29.0
--- NOTE | 2021-12-07 08:25 | MHC.SHP ---
Pre-Procedural Eval Section A Date of Service: 12/07/21 Section B Chief Complaint: reflux disease,gastrointestinal hemorrhage Details of Present Illness: see h&p no changes Relevant Family History (Specify if Yes): No Relevant Social History: None Present Medications: see Short Stay Collaborative assessment Medical History: No relevant PMH (see h&p no changes) History of Previous Operations: No relevant previous surgery Allergies: Allergies Allergy/AdvReac Type Severity Reaction Status Date / Time codeine [Codeine] AdvReac Mild vomiting Verified 12/03/21 16:54 Review of Systems Sugical H&P ROS: Negative: Constitution, Cardiovascular, Respiratory, Neurological, Psychiatric, Hem-Onc, Allergic/Immunologic, Gastrointestinal, Genitourinary, Musculoskeletal, Integumentary, Endocrine and Eyes/Ears/Nose/Throat Exam Surgical H&P Exam: Normal: HEENT, Normal: Heart, Normal: Lungs, Normal: Extremities, Normal: Abdomen, Normal: Skin and Normal: Neurological Plan Diagnosis/Plan: Unchanged I have reviewed the history and physical and performed a pertinent physical examination on my patient. No changes have occurred unless specified.
[2021-12-07 09:10] VITALS: BP 116/50; PULSE 56; RESP 20; TEMP 36.5; O2SAT 100
--- NOTE | 2021-12-07 09:11 | P.BOP_ITS ---
Brief Operative Note Date of Service: 12/07/21 Pre-op diagnosis: gerd, gi bleed Post-op diagnosis: same (hiatal hernia, colon polyps) Procedure: egd, colon Surgeon: Boston Reynoso Anesthesia: MAC Was an Fastener Sewing Machine Operator used for this Procedure?: No Estimated blood loss (mL): 5 Condition: stable Disposition: PACU
[2021-12-07 09:25] VITALS: BP 136/46; PULSE 59; RESP 20; O2SAT 100
[2021-12-07 09:40] VITALS: BP 129/52; PULSE 54; RESP 16; TEMP 36.5; O2SAT 100
--- NOTE | 2021-12-07 09:48 | OP_ITS ---
SURGEON: Boston Reynoso MD INDICATIONS: 1. Gastroesophageal reflux disease. 2. GI bleeding. PREOPERATIVE DIAGNOSIS: POSTOPERATIVE DIAGNOSIS: PROCEDURE PERFORMED: 1. Upper endoscopy with biopsy. 2. Colonoscopy to the terminal ileum with snare polypectomy. ESTIMATED BLOOD LOSS: COMPLICATIONS: ANESTHESIA: Monitored anesthesia care. ASSISTANTS: SPECIMENS: DESCRIPTION OF PROCEDURE: A history and physical were performed. The risks and benefits of the procedure were explained to the patient and informed consent was obtained. The patient was placed in the left lateral decubitus position. A digital rectal exam was performed prior to the colonoscopy. The Olympus video gastroscope was introduced into the esophagus, stomach, and duodenum. Examination was performed. The scope was removed. She was repositioned for colonoscopy. A digital rectal exam was performed and was found to be normal. The Olympus pediatric video colonoscope was introduced into the rectum and advanced to the cecum without difficulty. The cecum was identified by transillumination, palpation, and identification of ileocecal valve. Examination was performed. The scope was removed. She tolerated both procedures well and was returned to the recovery area in stable condition. FINDINGS: UPPER ENDOSCOPY Esophagus: The esophagus was normal. There was no esophagitis. There was a 2 cm area of possible Atkins esophagus just above the EG junction and a small sliding hiatal hernia. Biopsies were obtained from the EG junction. Stomach: The stomach showed no evidence of masses, ulcers, or polyps. Biopsies were obtained from the antrum to evaluate for H pylori. Duodenum: The bulb and second portion were normal. Biopsies were obtained from the duodenum because of the patient's history of diarrhea. COLONOSCOPY: The terminal ileum was normal. The visualized colonic mucosa was normal. There was a large amount of liquid stool and some formed stool, which limited the sensitivity examination for detection of small polyps. This was washed and suctioned as best possible. Biopsies were taken from the sigmoid to evaluate for microscopic colitis. There were 2 polyps that were removed with a snare. Both measured less than 10 mm. The first was located at 20 cm. The second was located at 15 cm. Retroflexed examination showed small internal hemorrhoids. IMPRESSION: 1. Hiatal hernia. 2. Gastroesophageal reflux disease. 3. Colon polyps. RECOMMENDATIONS: 1. Follow up the biopsy results. 2. Resume Eliquis, cilostazol, and iron in 3 days. MD NIKITA Ramsey/SUNDAY / [id number] ASHLEE
[2021-12-07 10:00] LABS: MANUAL DIFF FLAG NO
[2021-12-07 10:04] LABS: Basophils Percent Auto 0.5 % (0-2); Eosinophils Absolute Auto 0.1 X10*3/uL (0.0-0.4); Eosinophils Percent Auto 0.8 % (0-4); Hematocrit 37.6 % (37.0-47.0); Hemoglobin 11.8 g/dl (12.0-16.0); Imm Gran Abs Auto 0.03 X10*3/uL (0.00-0.03); Imm Gran Pct Auto 0.5 % (0.0-0.4); Lymphocytes Absolute Auto 0.9 X10*3/uL (1.2-4.9); Lymphocytes Percent Auto 14.8 % (20-40); Mean Corpuscular HGB Conc 31.4 g/dl (31.0-35.0); Mean Corpuscular Hemoglobin 26.9 pg (27.0-33.0); Mean Corpuscular Volume 85.6 fL (80.0-98.0); Monocytes Absolute Auto 0.4 X10*3/uL (0.1-1.2); Monocytes Percent Auto 6.9 % (2-11); Neutrophils Absolute Auto 4.7 x10*3/uL (2.0-8.3); Neutrophils Percent Auto 76.5 % (45-73); Platelet Count 213 X10*3/uL (160-400); Red Blood Count 4.39 X10*6/uL (4.20-5.50); Red Cell Distribution Width 15.6 % (11.0-16.0); White Blood Count 6.1 X10*3/uL (4.8-10.8)
[2021-12-07 10:23] LABS: Blood Urea Nitrogen 20 mg/dL (9-16); Creatinine Clr Calc Pharmacy 43.6; Estimated Glomerular Filt Rate 40
== END 2021-12-07 10:35 | disposition home or self-care (01) ==
PROVIDERS: Surgery Vascular Surgery; PCP Internal Medicine; Visit Provider Internal Medicine Gastroenterology
PROC: (CPT 45385; principal; 2021-12-07 08:50)
DX: K92.2 Gastrointestinal hemorrhage, unspecified (principal); R19.7 Diarrhea, unspecified; D12.5 Benign neoplasm of sigmoid colon; D12.7 Benign neoplasm of rectosigmoid junction; K64.8 Other hemorrhoids; K21.9 Gastro-esophageal reflux disease without esophagitis; K44.9 Diaphragmatic hernia without obstruction or gangrene; I11.0 Hypertensive heart disease with heart failure; I50.23 Acute on chronic systolic (congestive) heart failure; I25.10 Atherosclerotic heart disease of native coronary artery without angina pectoris; Z98.61 Coronary angioplasty status; I25.2 Old myocardial infarction; I48.91 Unspecified atrial fibrillation; I42.9 Cardiomyopathy, unspecified; I70.1 Atherosclerosis of renal artery; J44.9 Chronic obstructive pulmonary disease, unspecified; R91.8 Other nonspecific abnormal finding of lung field; G35 Multiple sclerosis; I73.9 Peripheral vascular disease, unspecified; Z79.01 Long term (current) use of anticoagulants; Z79.899 Other long term (current) drug therapy; Z88.8 Allergy status to other drugs, medicaments and biological substances; Z87.891 Personal history of nicotine dependence; Z90.49 Acquired absence of other specified parts of digestive tract
CPT/HCPCS: 45385; 43239; 36415; 82565; 84520; 85025; 88305; 88342; J2370

== ENCOUNTER 2021-12-26 06:06 | Day surgery (SDC) | payer MEDICARE, BC, SELFPAY ==
[2021-12-26] VITALS (11 sets, daily range): BP systolic 87–125; BP diastolic 42–57; PULSE 57–67; RESP 11–17; TEMP 36.5–37; O2SAT 96–100; BMI 27.6
[2021-12-26 06:25] LABS: MANUAL DIFF FLAG NO
[2021-12-26 06:27] LABS: Basophils Percent Auto 0.5 % (0-2); Eosinophils Absolute Auto 0.1 X10*3/uL (0.0-0.4); Eosinophils Percent Auto 1.6 % (0-4); Hematocrit 36.1 % (37.0-47.0); Hemoglobin 11.5 g/dl (12.0-16.0); Imm Gran Abs Auto 0.02 X10*3/uL (0.00-0.03); Imm Gran Pct Auto 0.4 % (0.0-0.4); Lymphocytes Absolute Auto 0.7 X10*3/uL (1.2-4.9); Lymphocytes Percent Auto 12.1 % (20-40); Mean Corpuscular HGB Conc 31.9 g/dl (31.0-35.0); Mean Corpuscular Hemoglobin 27.1 pg (27.0-33.0); Mean Corpuscular Volume 84.9 fL (80.0-98.0); Mean Platelet Volume 9.9 fL (9.4-12.3); Monocytes Absolute Auto 0.4 X10*3/uL (0.1-1.2); Monocytes Percent Auto 7.6 % (2-11); Neutrophils Absolute Auto 4.3 x10*3/uL (2.0-8.3); Neutrophils Percent Auto 77.8 % (45-73); Platelet Count 225 X10*3/uL (160-400); Red Blood Count 4.25 X10*6/uL (4.20-5.50); Red Cell Distribution Width 15.7 % (11.0-16.0); White Blood Count 5.6 X10*3/uL (4.8-10.8)
[2021-12-26 06:43] LABS: Blood Urea Nitrogen 22 mg/dL (9-16); Estimated Glomerular Filt Rate 35
[2021-12-26] MEDS: 0.9 % Sodium Chloride 1,000 ML 100 ML IVCONT (06:47)
[2021-12-26] MEDS: iohexoL 300 MG/ML 100 ML INFUS..BTL IV (08:55)
--- NOTE | 2021-12-26 09:31 | P.OP_ITS ---
Operative Note Operative Note Date of Service: 12/26/21 Narrative: Angiogram report from [facility] Preoperative diagnosis: Atherosclerosis of left lower extremity with activity limiting claudication Postoperative diagnosis: Same Procedure: 1. Ultrasound-guided right common femoral access 2. Aortogram with left lower extremity runoff 3. left SFA plasty Surgeon:Abimael Marcelo M.D., FACS, RPVI Information Systems Administrator:None Anesthesia: Local with moderate conscious sedation. Total intraservice moderate sedation time was 42 minutes. I monitored the patient's level of consciousness and physiologic status continuously throughout the procedure. Specimens:none Drains:none Estimated blood loss: Less than 10 ml Implant: Medtronic Impact DCB balloon 6 x 200 Indications: 66-year-old female with a prior history of endovascular intervention on surveillance follow-up was found to have InStent restenoses. She now presents for follow-up endovascular intervention The patient has signed the informed consent after reviewing risks, complications, benefits, and alternatives previously discussed with the patient. The patient was given the opportunity to ask any additional questions or voice any concerns. All questions were answered to the patient's satisfaction. Procedure in detail: Patient was brought to the angiography suite prior to which a time-out was called for patient identification and site verification. Bilateral groins were prepped and draped in the standard surgical fashion. Under ultrasound guidance right common femoral was punctured with micro puncture needle and wire. Subsequently a precision 5 Lao sheath was then placed. Garcia wire was advanced to the level of the aorta. 5 Lao Flush catheter was brought up and parked at the level of the renal arteries. Aortogram was then undertaken. Catheter was brought down to the level of the iliac bifurcation. Iliacs were subsequently imaged. Catheter was then brought in up and over to the left side SFA. Runoff study was then undertaken. high- grade InStent restenosis was identified. At this time 5000 units of systemic heparin was administered. After 5 minutes of circulation time up and over 6 Lao sheath was then placed. We advanced the 035 wire across the prior stent. We confirmed true lumen with a now be cross catheter instilled with contrast. Once this was accomplished we 1st plasty this area with a regular 6 x 100 balloon required 2 subsequent insufflations. Once this was accomplished we then brought in a 6 x 200 drug coated balloon. This was brought into position in under 3 minutes and insufflated for a total of 3 minutes in duration. Excellent result was achieved. Catheter wire sheath was brought back to the ipsilateral side. StarClose closure device was then deployed. Interpretation of films: 1. Ultrasound demonstrates appropriate femoral puncture. Image of which was saved. 2. Aortogram demonstrates appropriate caliber aorta. Minimal disease. Appropriate take-off of the renals. 3. Iliac images demonstrate No significant disease. Left iliac stent was patent with no significant disease 4. left Leg Common femoral artery: no significant disease Profundus Femoris: No significant disease Superficial femoral artery: in stent high-grade stenosis Popliteal artery (p1,p2,p3): patent Anterior tibial artery: patent Peroneal artery: patent Posterior tibial artery: patent Dorsalis pedis/plantar arch: not imaged due to renal insufficiency and minimizing contrast. Conclusion: 1. Successful plasty of left SFA InStent restenosis 2. Anticoagulation status: she will remain on aspirin and Eliquis. This note is constructed using voice recognition software. While every effort has been made to ensure accuracy, timber supervisor errors may have been included. Thank you for allowing me to participate in the care of your patient. Yours sincerely, Abimael Marcelo MD, FACS, R.P.V.I.
== END 2021-12-26 11:45 | disposition home or self-care (01) ==
PROVIDERS: PCP Internal Medicine; Visit Provider Surgery Vascular Surgery
DX: I70.212 Atherosclerosis of native arteries of extremities with intermittent claudication, left leg (principal); I11.0 Hypertensive heart disease with heart failure; I50.23 Acute on chronic systolic (congestive) heart failure; I25.10 Atherosclerotic heart disease of native coronary artery without angina pectoris; Z98.61 Coronary angioplasty status; I42.9 Cardiomyopathy, unspecified; J44.9 Chronic obstructive pulmonary disease, unspecified; R91.8 Other nonspecific abnormal finding of lung field; G35 Multiple sclerosis; Z79.899 Other long term (current) drug therapy; Z88.8 Allergy status to other drugs, medicaments and biological substances; Z87.891 Personal history of nicotine dependence
CPT/HCPCS: 36415; 37224; 76937; 82565; 84520; 85025; 99152; 99153; C1725; C1760; C1769; C1887; J2250; J3010; Q9967

== ENCOUNTER → 2022-01-07 11:46 | Outpatient (BNVA) | payer MEDICARE, BC, SELFPAY | PROVIDERS: PCP Internal Medicine; Visit Provider Surgery Vascular Surgery | DX: I73.9 Peripheral vascular disease, unspecified (principal) | CPT/HCPCS: 99212 ==

== ENCOUNTER → 2022-01-14 14:03 | Outpatient (REF) | payer MEDICARE, BC, SELFPAY ==
--- NOTE | 2022-01-14 14:07 | CA_ITS ---
Transthoracic Echocardiogram Patient (Last, First, Middle): Nai Garcia S Gender: Female Date of : 1955 Age: 66 Procedure Date: 01/14/2022 Procedure Type: Transthoracic Echocardiogram Location: OP Height: 167.64 cm Weight: 79.38 kg BSA: 1.89 m2 Heart Rate: bpm BP: 122 / 78 mmHg Medical Collector: ROBERT Referring MD: John Lizama MD Symptoms: I42.9 - Cardiomyopathy, unspecified Study Quality: Fair ECG Rhythm: Sinus Conclusions: - The left ventricular systolic function is mildly decreased. The calculated ejection fraction is 51% by biplane method. - There is evidence of regional wall motion abnormalities. - No obvious valvular pathology seen on this study. Findings Left Ventricle Normal left ventricular cavity size. There is mildly increased left ventricular wall thickness. The left ventricular systolic function is mildly decreased. The calculated ejection fraction is 51% by biplane method. There is evidence of regional wall motion abnormalities. Diastolic function is normal for age. Wall Motion Rest Echo Findings The inferoseptal wall is hypokinetic. The basal inferior and mid inferior segments are akinetic. Right Ventricle Normal right ventricular cavity size and systolic function. Atria Both atria are normal in size. Aortic Valve There is a normal trileaflet aortic valve. There is no aortic valve stenosis. There is no aortic valve regurgitation. Mitral Valve There is mild mitral annular calcification. There is no mitral valve regurgitation. There is no mitral valve stenosis. Pulmonic Valve The pulmonic valve was not well visualized. Tricuspid Valve Normal tricuspid valve structure. There is trace tricuspid valve regurgitation. The pulmonary artery systolic pressure is normal. Great Vessels The aortic annulus, sinuses of valsalva, asc aorta, and aortic arch are normal in size. Venous The inferior vena cava is normal in size and collapses greater than 50% with inspiration. Pericardium/Pleural There is no evidence of pericardial effusion. Prior Study Comparison Changes noted compared to prior study dated: 12/21/2020. Recommendations, Care & Conclusions No obvious valvular pathology seen on this study. Measurements 2D Linear Measurements IVSd: 1.16 0.6-0.9/0.6-1.0 cm LVIDd: 4.56 3.9-5.3/4.2-5.9 cm LVIDd Index: 2.41 2.4-3.2/2.2-3.1 cm/m2 LVIDs: 2.98 2.0-3.6 cm LVPWd: 1.17 0.7-1.1 cm LA Diam: 3.30 2.7-3.8/3.0-4.0 cm LAIDs Index: 1.75 1.5-2.3 cm/m2 LV Mass: 241.55 67-162/88-224 g LV Mass Index: 127.81 43-95/49-115 g/m2 LVOT Diam: 2.00 3.0+(-)1.3 cm 2D Systolic Function EF 4C: 50.50 >55% EF 2C: 53.80 >55% EF BiP: 51.20 >55% Mitral Valve MV Pk E: 0.72 MV PK A: 0.99 MV Decel Time: 320.00 E/A: 0.70 E'Lateral: 5.87 E'Medial: 3.48 E/E' Med: 20.60 E/E' Lat: 12.20 PHT: 94.00 MVA PHT: 2.34 Decel Morgan: 2.24 Aortic Valve AoV Pk Master: 1.31 AoV Mn Master: 0.86 AoV VTI: 0.28 AoV Pk Grad: 7.00 Aov Mn Grad: 3.00 SHAHRAM Cont.VTI: 2.58 LVOT LVOT Pk Master: 1.00 LVOT Mn Master: 0.70 LVOT VTI: 0.23 LVOT Pk Grad: 4.00 LVOT Mn Grad: 2.00 LVOT Diam: 2.00 LVOT Area: 3.14 Diastolic Function MV Pk E: 0.72 MV Pk A: 0.99 E/A: 0.70 E'Medial: 3.48 E/E' Med: 20.60 E' Laterial: 5.87 E/E' Lat: 12.20 Right Ventricle TAPSE (mm): 22.20 TVS' Master: 13.30 Tricuspid Valve TR Pk Master: 1.47 TR Pk Grad: 9.00 RA Press: 3.00 RVSP: 12.00 Great Vessels Aorta Sinus of Valsalva: 3.17 2.0-3.[address] Ridge: 2.56 1.7-3.4 cm Ao Asc: 3.20 2.1-3.4 cm Ao Arch: 3.10 Updated in Other Vendor System with Status of Final John Lizama MD electronically signed on 01/15/2022 12:07:24 PM with status of Final
== END ==
LOC: HO.CARD 14:03
PROVIDERS: PCP Internal Medicine; Visit Provider Internal Medicine
DX: I42.9 Cardiomyopathy, unspecified (principal)
CPT/HCPCS: 93306

== ENCOUNTER → 2022-01-30 13:56 | Outpatient (BNVA) | payer MEDICARE, BC, SELFPAY | PROVIDERS: PCP Internal Medicine; Referring Provider Internal Medicine; Visit Provider Internal Medicine | DX: I48.0 Paroxysmal atrial fibrillation (principal); I25.10 Atherosclerotic heart disease of native coronary artery without angina pectoris; I42.8 Other cardiomyopathies; I10 Essential (primary) hypertension | CPT/HCPCS: 93005; 99212 ==

== ENCOUNTER 2022-02-12 13:21 | Outpatient (REF) | payer MEDICARE, BC, SELFPAY ==
--- NOTE | ~2022-02-12 | CT_ITS ---
EXAMINATION: CT CHEST WITHOUT CONTRAST CLINICAL INFORMATION: Shortness of breath. COMPARISON: Previous chest CT scans, most recent March 2021. TECHNIQUE: Multidetector volumetric CT imaging of the chest was done. Axial MIP volume rendering provided. Sagittal and coronal reformatted images were obtained. This CT examination was performed using dose optimization techniques as appropriate, variously including the following: *Automated exposure control *Adjustment of mA and/or kV according to patient size (this includes techniques or standardized protocols for targeted exams where dose is matched to indication/reason for exam; i.e. extremities or head) *Use of iterative reconstruction technique DLP: 140 mGy-cm FINDINGS: METAL SPONGE MAKING MACHINE OPERATOR: Unremarkable. LUNGS: There are small pulmonary nodules that are stable. Largest pulmonary nodule is a 6 mm ground-glass attenuation nodule in the superior segment of the right lower lobe (axial image 224, series 7). No evidence of emphysema, interstitial lung disease or bronchiectasis is seen. No endobronchial or endotracheal lesion is seen. MEDIASTINUM: There is [id number] coronary artery calcification. The mediastinum is otherwise normal. PLEURA: There is no pleural effusion. No pleural mass or thickening. AXILLAE: No lymphadenopathy. UPPER ABDOMEN: There is atherosclerotic disease of the abdominal aorta. OSSEOUS STRUCTURES: There are degenerative changes of the spine. CT/CT chest wo con IMPRESSION: Stable small pulmonary nodules. [id number] coronary calcification. Fleischner guidelines were followed.
== END 2022-02-12 13:22 | disposition home or self-care (01) ==
LOC: HO.CT 13:21
PROVIDERS: PCP Internal Medicine; Visit Provider Internal Medicine
DX: R06.02 Shortness of breath (principal); J84.10 Pulmonary fibrosis, unspecified
CPT/HCPCS: 71250

== ENCOUNTER 2022-03-20 12:33 | Outpatient (REF) | payer MEDICARE, BC, SELFPAY ==
[2022-03-20 16:09] LABS: Hematocrit 37.2 % (37.0-47.0); Hemoglobin 11.9 g/dl (12.0-16.0); Mean Corpuscular Hemoglobin 27.2 pg (27.0-33.0); Mean Corpuscular Volume 85.1 fL (80.0-98.0); Mean Platelet Volume 10.1 fL (9.4-12.3); Platelet Count 276 X10*3/uL (160-400); Red Blood Count 4.37 X10*6/uL (4.20-5.50); Red Cell Distribution Width 15.4 % (11.0-16.0); White Blood Count 6.9 X10*3/uL (4.8-10.8)
[2022-03-20 16:12] LABS: INTERNATIONAL NORM RATIO 1.5 (0.9-1.1); Prothrombin Time 16.9 SEC (9.9-13.0)
[2022-03-20 16:33] LABS: B Type Natriuretic Peptide 160 pg/mL (<100)
[2022-03-20 16:38] LABS: Anion Gap 15 (12-20); Blood Urea Nitrogen 17 mg/dL (9-16); Calcium 9.6 mg/dL (8.4-10.2); Carbon Dioxide 26 mmol/L (22-29); Chloride 105 mmol/L (96-108); Estimated Glomerular Filt Rate 34; Glucose Random 105 mg/dL (60-115); Potassium 3.9 mmol/L (3.3-5.1); Sodium 142 mmol/L (135-145)
== END 2022-03-20 12:34 | disposition home or self-care (01) ==
LOC: HO.LAB 12:33
PROVIDERS: PCP Internal Medicine; Referring Provider Internal Medicine; Visit Provider Internal Medicine
DX: I48.0 Paroxysmal atrial fibrillation (principal); I25.10 Atherosclerotic heart disease of native coronary artery without angina pectoris; I42.8 Other cardiomyopathies; I10 Essential (primary) hypertension
CPT/HCPCS: 36415; 80048; 83880; 85027; 85610; 99212

== ENCOUNTER 2022-04-01 12:51 | Outpatient (REF) | payer MEDICARE, BC, SELFPAY ==
--- NOTE | ~2022-04-01 | US_ITS ---
EXAMINATION: Noninvasive assessment of the bilateral lower extremities with ARTERIAL DUPLEX and ANKLE BRACHIAL INDICES (ABIs). ? CLINICAL INFORMATION: Peripheral vascular disease with history of prior bilateral SFA stents ? TECHNIQUE: Duplex Doppler techniques with waveform analysis and measurement of velocities in the bilateral common femoral, profunda femoris, superficial femoral, popliteal and tibial arteries were performed. Additionally, ankle pulse volume recordings, ankle pressure measurements and ankle brachial indices were obtained of the lower extremity arterial system bilaterally. The study was performed only at rest. ? COMPARISON: 10/22/2021 and 12/20/2020 ? FINDINGS: ? DIRECT DUPLEX DOPPLER FINDINGS: ? RIGHT LEG: Common femoral artery:?290 cm/s, phasicity: Monophasic Profunda femoris artery:??49.5 cm/s, phasicity: Biphasic Superficial femoral artery (proximal):?135 cm/s, phasicity: Biphasic Superficial femoral artery (mid) STENT:?157 cm/s, phasicity: Biphasic Superficial femoral artery (distal) STENT:?94.4 cm/s, phasicity: Biphasic Popliteal artery:?66 cm/s, phasicity: Biphasic Posterior tibial artery:?33.6 cm/s, phasicity: Biphasic Peroneal artery:?55.8 cm/s, phasicity: Biphasic ? LEFT LEG: Common femoral artery:?103 cm/s, phasicity: Biphasic Profunda femoris artery:?57?cm/s, phasicity: Biphasic Superficial femoral artery (proximal):?133?cm/s, phasicity: Biphasic Superficial femoral artery (mid) STENT:?127 cm/s, phasicity: Biphasic Superficial femoral artery (distal) STENT:?70.9?cm/s, phasicity: Biphasic Popliteal artery:?53.8?cm/s, phasicity: Biphasic Posterior tibial artery:?29.9?cm/s, phasicity: Monophasic Peroneal artery:?70.3 cm/s, phasicity: Biphasic ANKLE-BRACHIAL INDEX: ? Right: 1.07? Left: 1.08 ? ANKLE PRESSURES: ? Right: PT 166, DP?154?? Left: PT?162, DP?167?? ? ANKLE PVR WAVEFORMS: ? Right: Mildly dampened Left: Mildly dampened? ? Right leg:???Normal ankle brachial index. Elevated velocity in the common femoral artery consistent with a mild to moderate stenosis. Normal velocity and waveforms throughout the right lower extremity otherwise including within the mid to distal superficial femoral artery stent. No significant stenosis ? Left leg:???Normal ankle brachial index. Normal velocities and waveforms throughout the left lower extremity including within the mid to distal left superficial femoral artery stent. No significant stenosis ? ?? MISSY Reference: - >1.4 = calcified vessels - 0.9 - 1.4 = normal - no significant arterial disease - 0.7 - 0.89 = mild peripheral arterial disease - 0.51 - 0.69 = moderate peripheral arterial disease - ? 0.50 = severe peripheral arterial disease - < .30 = critical arterial disease US/US arterial duplex LE BI IMPRESSION: ?
== END 2022-04-01 12:52 | disposition home or self-care (01) ==
LOC: HO.US 12:51
PROVIDERS: PCP Internal Medicine; Visit Provider Surgery Vascular Surgery
DX: I73.9 Peripheral vascular disease, unspecified (principal)
CPT/HCPCS: 93925

== ENCOUNTER → 2022-04-22 15:05 | Outpatient (BNVA) | payer MEDICARE, BC, SELFPAY | PROVIDERS: PCP Internal Medicine; Referring Provider Internal Medicine; Visit Provider Internal Medicine | DX: I25.10 Atherosclerotic heart disease of native coronary artery without angina pectoris (principal); I48.0 Paroxysmal atrial fibrillation; I42.8 Other cardiomyopathies; I10 Essential (primary) hypertension; Z95.5 Presence of coronary angioplasty implant and graft; Z79.01 Long term (current) use of anticoagulants; Z79.899 Other long term (current) drug therapy | CPT/HCPCS: 99212 ==

== ENCOUNTER → 2022-04-30 15:05 | Outpatient (BNVA) | payer MEDICARE, BC, SELFPAY | PROVIDERS: PCP Internal Medicine; Visit Provider Internal Medicine | DX: J44.9 Chronic obstructive pulmonary disease, unspecified (principal); R06.00 Dyspnea, unspecified; R91.8 Other nonspecific abnormal finding of lung field; Z87.891 Personal history of nicotine dependence | CPT/HCPCS: 99212 ==

== ENCOUNTER → 2022-05-09 14:52 | Outpatient (BNVA) | payer MEDICARE, BC, SELFPAY | PROVIDERS: PCP Internal Medicine; Visit Provider Surgery Vascular Surgery | DX: I73.9 Peripheral vascular disease, unspecified (principal); M79.605 Pain in left leg; Z95.820 Peripheral vascular angioplasty status with implants and grafts | CPT/HCPCS: 99212 ==

== ENCOUNTER 2022-06-13 13:04 | Outpatient (REF) | payer MEDICARE, BC, SELFPAY ==
--- NOTE | ~2022-06-13 | MM_ITS ---
EXAMINATION: MM SCREENING DIGITAL BREAST TOMOSYNTHESIS, BILATERAL CLINICAL INFORMATION: Screening. Asymptomatic. The lifetime risk of breast cancer based on the Tyrer-Cuzick Model is 4%. COMPARISON: Mammography: 09/06/2020, 03/10/2019, 12/17/2018 TECHNIQUE: Digital breast tomosynthesis is performed in both the craniocaudal and mediolateral oblique views along with computer-aided detection (CAD). Synthesized 2D images are generated from the tomosynthesis. FINDINGS: There are scattered areas of fibroglandular density (ACR BI-RADS breast composition Category b). There are no significant masses, abnormal calcifications, or other abnormalities. Parenchymal pattern is similar to prior studies. There is no developing density or architectural abnormality. The axilla and skin contours are unremarkable. No significant changes. MM/MM tomosynthesis screening BI IMPRESSION: No mammographic evidence of malignancy. ASSESSMENT: BI-RADS 1: Negative RECOMMENDATION: Routine annual mammography screening. This patient's information was entered into a reminder system with a target due date for their next mammogram.
--- NOTE | ~2022-06-13 | MM_ITS ---
EXAMINATION: BONE DENSITOMETRY CLINICAL INDICATION: Other specified disorders of bone density and structure. COMPARISON: None (current study represents initial baseline exam). TECHNIQUE: Using a [employer] DXA System (software version: 13.1) manufactured by [employer], dual-energy x-ray absorptiometry was performed of the lumbar spine and left hip. The images are of good technical quality. Summary results are attached. FINDINGS: AP SPINE L1-L4: BMD 1.127 g/cm2, Z-score 1.1, T-score -0.4, normal. LEFT FEMUR, NECK: BMD 1.001 g/cm2, Z-score 1.3, T-score -0.3, normal. LEFT FEMUR, TOTAL: BMD 0.913 g/cm2, Z-score 0.6, T-score -0.8, normal. IDENTIFIED RISK FACTORS: Early menopause, secondary osteoporosis, family history (parental hip fracture). HISTORY OF FRACTURE: Shoulder. MEDICATIONS: Vitamin D. MM/XR DEXA appendicular skeleton IMPRESSION: 1. DIAGNOSIS: Normal bone density based on the lowest T-score value of -0.8 in the total femur applying World Health Organization criteria. 2. 10-YEAR FRACTURE RISK PREDICTION, FRAX: According to the guidelines, FRAX calculation should only be performed on patients in the osteopenia bone density category. Therefore, FRAX was not performed on this patient. 3. Treatment Recommendations: NOF guidelines recommend consideration for treatment in postmenopausal women and men age 50 and older presenting with the following: -A hip or vertebral (clinical or morphometric) fracture. -T-score less than or equal to -2.5 at the femoral neck or spine after appropriate evaluation to exclude secondary causes. -Low bone mass at the hip or spine and a 10-year fracture probability by FRAX of greater than or equal to 3% for hip fracture or greater than or equal to 20% for major osteoporotic fracture based on the [place] adapted WHO algorithm. 4. Other Recommendations: All treatment decisions require clinical judgment and consideration of individual patient factors, including patient preferences, comorbidities, previous drug use, risk factors not captured in the FRAX model (e.g. frailty, falls, vitamin D deficiency, increased bone turnover, interval significant decline in bone density) and possible under or overestimation of fracture risk by FRAX. FUTURE SCAN RECOMMENDATION: People with diagnosed cases of osteoporosis or at high risk for fracture should have regular bone mineral density tests. For patients eligible for Medicare, routine testing is allowed once every 2 years. The testing frequency can be increased to one year for patients who have rapidly progressing disease, those who are receiving or discontinuing medical therapy to restore bone mass, or have additional risk factors.
== END 2022-06-13 13:05 | disposition home or self-care (01) ==
LOC: HO.MAMMO 13:04
PROVIDERS: PCP Internal Medicine; Visit Provider Internal Medicine
DX: Z12.31 Encounter for screening mammogram for malignant neoplasm of breast (principal); Z13.820 Encounter for screening for osteoporosis; M85.811 Other specified disorders of bone density and structure, right shoulder; Z78.0 Asymptomatic menopausal state
CPT/HCPCS: 77063; 77067; 77081

== ENCOUNTER → 2022-06-25 14:55 | Outpatient (BNVA) | payer MEDICARE, BC, SELFPAY | PROVIDERS: PCP Internal Medicine; Referring Provider Internal Medicine; Visit Provider Internal Medicine | DX: I48.0 Paroxysmal atrial fibrillation (principal); I25.10 Atherosclerotic heart disease of native coronary artery without angina pectoris; I42.8 Other cardiomyopathies; I10 Essential (primary) hypertension | CPT/HCPCS: 93005; 99212 ==

== ENCOUNTER 2022-07-22 13:35 | Outpatient (REF) | payer MEDICARE, BC, SELFPAY ==
[2022-07-22 14:52] LABS: MANUAL DIFF FLAG NO
[2022-07-22 15:55] LABS: Basophils Absolute Auto 0.1 X10*3/uL (0.0-0.2); Basophils Percent Auto 0.7 % (0-2); Eosinophils Absolute Auto 0.1 X10*3/uL (0.0-0.4); Eosinophils Percent Auto 1.5 % (0-4); Hematocrit 37.7 % (37.0-47.0); Hemoglobin 11.8 g/dl (12.0-16.0); Imm Gran Abs Auto 0.04 X10*3/uL (0.00-0.03); Imm Gran Pct Auto 0.5 % (0.0-0.4); Lymphocytes Absolute Auto 1.5 X10*3/uL (1.2-4.9); Lymphocytes Percent Auto 20.1 % (20-40); Mean Corpuscular HGB Conc 31.3 g/dl (31.0-35.0); Mean Corpuscular Hemoglobin 26.9 pg (27.0-33.0); Mean Corpuscular Volume 86.1 fL (80.0-98.0); Mean Platelet Volume 10.7 fL (9.4-12.3); Monocytes Absolute Auto 0.5 X10*3/uL (0.1-1.2); Neutrophils Absolute Auto 5.3 x10*3/uL (2.0-8.3); Neutrophils Percent Auto 71.2 % (45-73); Platelet Count 277 X10*3/uL (160-400); Red Blood Count 4.38 X10*6/uL (4.20-5.50); Red Cell Distribution Width 16.7 % (11.0-16.0); White Blood Count 7.5 X10*3/uL (4.8-10.8)
[2022-07-22 16:26] LABS: Albumin Level 3.7 g/dL (3.5-5.0); Anion Gap 20 (12-20); Blood Urea Nitrogen 27 mg/dL (9-16); Calcium 9.4 mg/dL (8.4-10.2); Carbon Dioxide 24 mmol/L (22-29); Chloride 102 mmol/L (96-108); Estimated Glomerular Filt Rate 24; Magnesium 1.9 mg/dL (1.6-2.6); Phosphorus 3.2 mg/dL (2.7-4.5); Potassium 4.1 mmol/L (3.3-5.1); Sodium 142 mmol/L (135-145)
[2022-07-22 16:35] LABS: TSH reflex Free T4 13.14 uIU/mL (0.32-4.0); Vitamin D 25-OH Total 63.9 ng/mL (>30)
[2022-07-22 17:30] LABS: Free T4 (Free Thyroxine) 1.01 ng/dL (0.71-1.85)
[2022-07-23 11:02] LABS: Calcium (PTHI) 9.5 mg/dL (8.6-10.4); PTHI 160 pg/mL (16-77)
== END 2022-07-22 13:36 | disposition home or self-care (01) ==
LOC: HO.LAB 13:35
PROVIDERS: Internal Medicine; PCP Internal Medicine; Visit Provider Internal Medicine Nephrology
DX: I70.1 Atherosclerosis of renal artery (principal); N25.0 Renal osteodystrophy; N18.32 Chronic kidney disease, stage 3b; J44.9 Chronic obstructive pulmonary disease, unspecified; R06.00 Dyspnea, unspecified; R91.8 Other nonspecific abnormal finding of lung field
CPT/HCPCS: 36415; 80051; 82040; 82306; 82310; 82565; 83735; 83970; 84100; 84439; 84443; 84520; 85025; 99212

== ENCOUNTER 2022-07-25 15:57 | Outpatient (REF) | payer MEDICARE, BC, SELFPAY ==
[2022-07-25 16:20] LABS: Appearance Urine Clear; Color Urine Yellow; Glucose Urine UA Negative (Negative); Leukocyte Esterase Urine Trace (Negative); Nitrite Urine Negative (Negative); UMIC TRIGGER UA YES; Urine Blood Negative (Negative); Urine Ketones Negative (Negative); Urine Protein Negative (Neg-Trace)
[2022-07-25 16:25] LABS: Bacteria Urine None Seen (None Seen); Hyaline Casts Urine 0-2 /LPF (0-2); RBC Urine 0-2 /HPF (0-2); Squamous Epithelial Cell Urine 0-2 /HPF (0-2); WBC Urine 0-5 /HPF (0-5)
[2022-07-25 17:05] LABS: Creatinine Urine 60.84 mg/dL; Microalbum/Creatinine Ratio Ur 14.7 ug/mg cr; Total Protein Urine Random < 7 mg/dL (<12)
== END 2022-07-25 15:58 | disposition home or self-care (01) ==
LOC: HO.LNP 15:57
PROVIDERS: Visit Provider Internal Medicine Nephrology
DX: I70.1 Atherosclerosis of renal artery (principal); N25.0 Renal osteodystrophy; N18.32 Chronic kidney disease, stage 3b
CPT/HCPCS: 81001; 82043; 84156

== ENCOUNTER 2022-08-08 15:23 | Outpatient (REF) | payer MEDICARE, BC, SELFPAY ==
[2022-08-08 16:12] LABS: MANUAL DIFF FLAG NO
[2022-08-08 17:29] LABS: Basophils Percent Auto 0.7 % (0-2); Eosinophils Absolute Auto 0.1 X10*3/uL (0.0-0.4); Eosinophils Percent Auto 1.8 % (0-4); Hematocrit 36.5 % (37.0-47.0); Hemoglobin 11.8 g/dl (12.0-16.0); Imm Gran Abs Auto 0.02 X10*3/uL (0.00-0.03); Imm Gran Pct Auto 0.5 % (0.0-0.4); Lymphocytes Absolute Auto 0.7 X10*3/uL (1.2-4.9); Mean Corpuscular HGB Conc 32.3 g/dl (31.0-35.0); Mean Corpuscular Hemoglobin 27.8 pg (27.0-33.0); Mean Corpuscular Volume 86.1 fL (80.0-98.0); Mean Platelet Volume 10.5 fL (9.4-12.3); Monocytes Absolute Auto 0.4 X10*3/uL (0.1-1.2); Monocytes Percent Auto 7.9 % (2-11); Neutrophils Absolute Auto 3.2 x10*3/uL (2.0-8.3); Neutrophils Percent Auto 73.1 % (45-73); Platelet Count 244 X10*3/uL (160-400); Red Blood Count 4.24 X10*6/uL (4.20-5.50); Red Cell Distribution Width 16.8 % (11.0-16.0); White Blood Count 4.4 X10*3/uL (4.8-10.8)
[2022-08-08 17:49] LABS: Albumin Level 3.7 g/dL (3.5-5.0); Anion Gap 17 (12-20); Blood Urea Nitrogen 19 mg/dL (9-16); Calcium 9.1 mg/dL (8.4-10.2); Carbon Dioxide 25 mmol/L (22-29); Chloride 106 mmol/L (96-108); Estimated Glomerular Filt Rate 29; Magnesium 1.9 mg/dL (1.6-2.6); Phosphorus 3.4 mg/dL (2.7-4.5); Potassium 4.6 mmol/L (3.3-5.1); Sodium 143 mmol/L (135-145)
[2022-08-08 18:11] LABS: Vitamin D 25-OH Total 57.9 ng/mL (>30)
[2022-08-11 15:42] LABS: Calcium (PTHI) 9.3 mg/dL (8.6-10.4); PTHI 130 pg/mL (16-77)
== END 2022-08-08 15:24 | disposition home or self-care (01) ==
LOC: HO.LAB 15:23
PROVIDERS: Visit Provider Internal Medicine Nephrology
DX: I12.9 Hypertensive chronic kidney disease with stage 1 through stage 4 chronic kidney disease, or unspecified chronic kidney disease (principal); N18.32 Chronic kidney disease, stage 3b; N25.0 Renal osteodystrophy
CPT/HCPCS: 36415; 80051; 82040; 82306; 82310; 82565; 83735; 83970; 84100; 84520; 85025

== ENCOUNTER 2022-09-11 16:09 | Outpatient (REF) | payer MEDICARE, BC, SELFPAY | END 2022-09-11 16:10 | disposition home or self-care (01) | LOC: HO.LAB 16:09 | PROVIDERS: PCP Internal Medicine; Visit Provider Internal Medicine | DX: E03.9 Hypothyroidism, unspecified (principal) | CPT/HCPCS: 36415; 84443 ==

== ENCOUNTER → 2022-09-17 14:48 | Outpatient (BNVA) | payer MEDICARE, BC, SELFPAY | PROVIDERS: PCP Internal Medicine; Referring Provider Internal Medicine; Visit Provider Internal Medicine | DX: I25.10 Atherosclerotic heart disease of native coronary artery without angina pectoris (principal); I48.91 Unspecified atrial fibrillation; I42.8 Other cardiomyopathies; I10 Essential (primary) hypertension; Z79.02 Long term (current) use of antithrombotics/antiplatelets; Z79.899 Other long term (current) drug therapy | CPT/HCPCS: 93005; 99212 ==

== ENCOUNTER 2022-09-27 08:57 | Outpatient (REF) | payer MEDICARE, BC, SELFPAY ==
--- NOTE | ~2022-09-27 | US_ITS ---
EXAMINATION: US RETROPERITONEAL LIMITED (RENAL ONLY) AND RENAL DOPPLER EXAM CLINICAL INFORMATION: Chronic kidney disease. Hypertension. COMPARISON: Previous CTA of the abdomen and pelvis March 2021. TECHNIQUE: Doppler color and grayscale evaluation of the kidneys. Doppler and color evaluation of the renal arteries including waveform spectral analysis and renal veins. Technically limited exam. FINDINGS: RIGHT KIDNEY: 8.8 x 4.7 x 4.6 cm (SAG x AP x TRV). The kidney is normal in size, contour, and echogenicity. Renal cortical thickness is normal. No calculi or focal parenchymal lesions. No hydronephrosis. LEFT KIDNEY: 9.7 x 5.5 x 4.3 cm (SAG x AP x TRV). The kidney is normal in size, contour, and echogenicity. Renal cortical thickness is normal. No calculi or focal parenchymal lesions. No hydronephrosis. Aortic peak systolic velocity is 71 cm/s. Right: Right proximal renal artery peak systolic velocity measures 157 cm/s. The right mid renal artery is not seen. The right distal renal artery peak systolic velocity measures 89 cm/s. Renal artery to aorta ratio is 2.2. Resistive indices of the interlobar renal arteries in the right kidney are minimally elevated measuring 0.8. Left: There is increased peak systolic velocity in the left proximal renal artery measuring 549 cm/s. The left mid renal artery is not seen. Peak systolic velocity in the distal left renal artery measures 65 cm/s. Left renal artery to aorta ratio measures 7.7. Resistive indices of the interlobar renal arteries in the left kidney are minimally elevated and measure 0.8. The bilateral renal veins are patent. US/US renal doppler IMPRESSION: RIGHT KIDNEY: Normal-appearing right kidney. No evidence of renal artery stenosis. LEFT KIDNEY: Normal-appearing left kidney. Markedly elevated peak systolic velocity in the left proximal renal artery and increased renal artery to aorta ratio suggestive of greater than 60% left renal artery stenosis.
== END 2022-09-27 08:58 | disposition home or self-care (01) ==
LOC: HO.US 08:57
PROVIDERS: Visit Provider Internal Medicine Nephrology
DX: I12.9 Hypertensive chronic kidney disease with stage 1 through stage 4 chronic kidney disease, or unspecified chronic kidney disease (principal); N18.32 Chronic kidney disease, stage 3b; N25.0 Renal osteodystrophy
CPT/HCPCS: 76775; 93975

== ENCOUNTER → 2022-11-01 13:48 | Outpatient (REF) | payer MEDICARE, BC, SELFPAY ==
--- NOTE | 2022-11-01 13:51 | CA_ITS ---
Transthoracic Echocardiogram Patient (Last, First, Middle): Nai Garcia S Gender: Female Date of : 1955 Age: 67 Procedure Date: 11/01/2022 Procedure Type: Transthoracic Echocardiogram Location: OP Height: 167.64 cm Weight: 70.31 kg BSA: 1.79 m2 Heart Rate: bpm BP: 117 / 56 mmHg Entertainment Usher: Referring MD: John Lizama MD Symptoms: I25.10 - Atherosclerotic heart disease of [place] coronary artery without... Study Quality: Adequate W Contrast ECG Rhythm: Sinus Conclusions: - The left ventricular systolic function is normal. The calculated ejection fraction is 59% by biplane method. - The basal inferior segment is akinetic. - No obvious valvular pathology seen on this study. Findings Procedure Information Contrast agent, definity, is being given per protocol without apparent complications. Left Ventricle Normal left ventricular cavity size. There is mildly increased left ventricular wall thickness. The left ventricular systolic function is normal. The calculated ejection fraction is 59% by biplane method. There is evidence of regional wall motion abnormalities. E/E prime ratio is >15, consistent with elevated filling pressures. Evidence suggests grade I (mild) diastolic dysfunction. There is moderate septal asymmetric hypertrophy. Wall Motion Rest Echo Findings The basal inferior segment is akinetic. Right Ventricle Normal right ventricular cavity size and systolic function. Atria The left atrium is moderately dilated. The right atrium is normal in size. Aortic Valve There is a normal trileaflet aortic valve. There is no aortic valve stenosis. There is no aortic valve regurgitation. Mitral Valve There is mild mitral annular calcification. There is mild mitral valve regurgitation. There is no mitral valve stenosis. Pulmonic Valve The pulmonic valve is likely normal. There is trace pulmonic valve regurgitation. Tricuspid Valve Normal tricuspid valve structure. There is trace tricuspid valve regurgitation. There is no evidence of pulmonary hypertension. Great Vessels The asc aorta is normal in size. Venous The inferior vena cava is normal in size and collapses greater than 50% with inspiration. Pericardium/Pleural There is no evidence of pericardial effusion. Prior Study Comparison No significant change compared to prior study dated: 01/14/2022. Recommendations, Care & Conclusions No obvious valvular pathology seen on this study. Measurements 2D Linear Measurements IVSd: 1.40 0.6-0.9/0.6-1.0 cm LVIDd: 4.40 3.9-5.3/4.2-5.9 cm LVIDd Index: 2.46 2.4-3.2/2.2-3.1 cm/m2 LVIDs: 3.42 2.0-3.6 cm LVPWd: 1.26 0.7-1.1 cm Ao Root: 3.10 2.1-3.5 cm LA Diam: 3.80 2.7-3.8/3.0-4.0 cm LAIDs Index: 2.12 1.5-2.3 cm/m2 LV Mass: 277.38 67-162/88-224 g LV Mass Index: 154.96 43-95/49-115 g/m2 LVOT Diam: 2.00 3.0+(-)1.3 cm 2D Systolic Function EF 4C: 66.20 >55% EF 2C: 50.50 >55% EF BiP: 58.60 >55% Mitral Valve MV Pk E: 0.67 MV PK A: 0.67 MV Decel Time: 405.00 E/A: 1.00 E'Lateral: 2.72 E'Medial: 3.37 E/E' Med: 20.00 E/E' Lat: 24.70 PHT: 119.00 MVA PHT: 1.85 Decel [place]: 1.66 Aortic Valve AoV Pk Master: 1.12 AoV Mn Master: 0.73 AoV VTI: 0.27 AoV Pk Grad: 5.00 Aov Mn Grad: 2.00 SHAHRAM Cont.VTI: 2.15 LVOT LVOT Pk Master: 0.75 LVOT Mn Master: 0.49 LVOT VTI: 0.19 LVOT Pk Grad: 2.00 LVOT Mn Grad: 1.00 LVOT Diam: 2.00 LVOT Area: 3.14 Diastolic Function MV Pk E: 0.67 MV Pk A: 0.67 E/A: 1.00 E'Medial: 3.37 E/E' Med: 20.00 E' Laterial: 2.72 E/E' Lat: 24.70 Right Ventricle TAPSE (mm): 27.00 TVS' Master: 14.00 Tricuspid Valve TR Pk Master: 1.69 TR Pk Grad: 11.00 RA Press: 3.00 RVSP: 14.00 Great Vessels Aorta Ao Root-2D: 3.10 2.0-3.7 cm Ao Asc: 3.10 2.1-3.4 cm Pulmonary Valve PV Pk Master: 0.83 Peak PV Grad: 3.00 Updated in Other Vendor System with Status of Final John Lizama MD electronically signed on 11/03/2022 1:45:17 PM with status of Final
== END ==
LOC: HO.CARD 13:48
PROVIDERS: PCP Internal Medicine; Visit Provider Internal Medicine
DX: I25.10 Atherosclerotic heart disease of native coronary artery without angina pectoris (principal)
CPT/HCPCS: 93306; Q9957

== ENCOUNTER 2022-11-26 13:41 | Outpatient (REF) | payer MEDICARE, BC, SELFPAY ==
--- NOTE | ~2022-11-26 | US_ITS ---
EXAMINATION: ANKLE-BRACHIAL INDICES SINGLE LEVEL PULSE VOLUME RECORDING ARTERIAL DUPLEX BILATERAL LEGS CLINICAL INFORMATION: Peripheral vascular disease. COMPARISON: 04/01/2022. TECHNIQUE: Ankle-brachial indices and PVR at the ankle were obtained. Duplex Doppler of the bilateral lower extremity arterial systems was performed. FINDINGS: RIGHT: Ankle-brachial index: 1.07 PVR: Mildly abnormal Common femoral: PSV 242 cm/s. Triphasic waveform. Deep femoral: PSV 56 cm/s. Triphasic waveform. Proximal superficial femoral: PSV 144 cm/s. Triphasic waveform. Mid superficial femoral: Patent stent. PSV 100 cm/s. Biphasic waveform. Distal superficial femoral: Patent stent PSV 53 cm/s. Biphasic waveform. Popliteal: PSV 42 cm/s. Biphasic waveform. Posterior tibial: PSV 42 cm/s. Biphasic waveform. Peroneal: PSV 57 cm/s. Biphasic waveform. LEFT: Ankle-brachial index: Not calculable as the ankle was noncompressible. PVR: Normal Common femoral: PSV 140 cm/s. Triphasic waveform. Deep femoral: PSV 60 cm/s. Biphasic waveform. Proximal superficial femoral: PSV 196 cm/s. Biphasic waveform. Mid superficial femoral: Patent stent. PSV 79 cm/s. Biphasic waveform. Distal superficial femoral: Patent stent. PSV 63 cm/s. Biphasic waveform. Popliteal: PSV 51 cm/s. Biphasic waveform. Posterior tibial: PSV 45 cm/s. Biphasic waveform. Peroneal: PSV 53 cm/s. Biphasic waveform. US/US arterial duplex LE BI IMPRESSION: Right: Normal MISSY. Mildly abnormal ankle PVR. Patent SFA stent. No evidence of hemodynamically significant stenosis. Left: MISSY not obtainable. Mildly abnormal ankle PVR. Patent SFA stent. No evidence of hemodynamically significant stenosis.
--- NOTE | ~2022-11-26 | US_ITS ---
EXAMINATION: ANKLE-BRACHIAL INDICES SINGLE LEVEL PULSE VOLUME RECORDING ARTERIAL DUPLEX BILATERAL LEGS CLINICAL INFORMATION: Peripheral vascular disease. COMPARISON: 04/01/2022. TECHNIQUE: Ankle-brachial indices and PVR at the ankle were obtained. Duplex Doppler of the bilateral lower extremity arterial systems was performed. FINDINGS: RIGHT: Ankle-brachial index: 1.07 PVR: Mildly abnormal Common femoral: PSV 242 cm/s. Triphasic waveform. Deep femoral: PSV 56 cm/s. Triphasic waveform. Proximal superficial femoral: PSV 144 cm/s. Triphasic waveform. Mid superficial femoral: Patent stent. PSV 100 cm/s. Biphasic waveform. Distal superficial femoral: Patent stent PSV 53 cm/s. Biphasic waveform. Popliteal: PSV 42 cm/s. Biphasic waveform. Posterior tibial: PSV 42 cm/s. Biphasic waveform. Peroneal: PSV 57 cm/s. Biphasic waveform. LEFT: Ankle-brachial index: Not calculable as the ankle was noncompressible. PVR: Normal Common femoral: PSV 140 cm/s. Triphasic waveform. Deep femoral: PSV 60 cm/s. Biphasic waveform. Proximal superficial femoral: PSV 196 cm/s. Biphasic waveform. Mid superficial femoral: Patent stent. PSV 79 cm/s. Biphasic waveform. Distal superficial femoral: Patent stent. PSV 63 cm/s. Biphasic waveform. Popliteal: PSV 51 cm/s. Biphasic waveform. Posterior tibial: PSV 45 cm/s. Biphasic waveform. Peroneal: PSV 53 cm/s. Biphasic waveform. US/US MISSY complete IMPRESSION: Right: Normal MISSY. Mildly abnormal ankle PVR. Patent SFA stent. No evidence of hemodynamically significant stenosis. Left: MISSY not obtainable. Mildly abnormal ankle PVR. Patent SFA stent. No evidence of hemodynamically significant stenosis.
[2022-11-26 16:16] LABS: Hematocrit 36.7 % (37.0-47.0); Hemoglobin 11.6 g/dl (12.0-16.0); Mean Corpuscular HGB Conc 31.6 g/dl (31.0-35.0); Mean Corpuscular Hemoglobin 27.2 pg (27.0-33.0); Mean Corpuscular Volume 85.9 fL (80.0-98.0); Platelet Count 225 X10*3/uL (160-400); Red Blood Count 4.27 X10*6/uL (4.20-5.50); Red Cell Distribution Width 13.8 % (11.0-16.0); White Blood Count 5.5 X10*3/uL (4.8-10.8)
[2022-11-26 16:38] LABS: Anion Gap 12 (12-20); Blood Urea Nitrogen 19 mg/dL (9-16); Calcium 8.8 mg/dL (8.4-10.2); Carbon Dioxide 29 mmol/L (22-29); Chloride 105 mmol/L (96-108); Estimated Glomerular Filt Rate 48; Glucose Random 80 mg/dL (60-115); Potassium 3.8 mmol/L (3.3-5.1); Sodium 142 mmol/L (135-145)
[2022-11-26 16:57] LABS: Thyroid Stimulating Hormone 4.38 uIU/mL (0.32-4.0)
== END 2022-11-26 13:42 | disposition home or self-care (01) ==
LOC: HO.US 13:41
PROVIDERS: Absent Provider Internal Medicine; PCP Internal Medicine; Visit Provider Surgery Vascular Surgery
DX: I70.213 Atherosclerosis of native arteries of extremities with intermittent claudication, bilateral legs (principal); E03.9 Hypothyroidism, unspecified
CPT/HCPCS: 36415; 80048; 84443; 85027; 93923; 93925

== ENCOUNTER → 2022-12-10 15:11 | Outpatient (BNVA) | payer MEDICARE, BC, SELFPAY | PROVIDERS: PCP Internal Medicine; Visit Provider Surgery Vascular Surgery | DX: I73.9 Peripheral vascular disease, unspecified (principal); I70.1 Atherosclerosis of renal artery; I73.00 Raynaud's syndrome without gangrene; Z95.820 Peripheral vascular angioplasty status with implants and grafts | CPT/HCPCS: 99212 ==

== ENCOUNTER 2022-12-26 13:45 | Outpatient (REF) | payer MEDICARE, BC, SELFPAY ==
[2022-12-26 15:38] LABS: Appearance Urine Cloudy; Color Urine Yellow; Glucose Urine UA Negative (Negative); Leukocyte Esterase Urine Large (3+) (Negative); Nitrite Urine Negative (Negative); PH 7.5 (5.0-9.0); UMIC TRIGGER UACC YES; Urine Blood Negative (Negative); Urine Ketones Negative (Negative); Urine Protein Negative (Neg-Trace)
[2022-12-26 15:44] LABS: Bacteria Urine 4+ (None Seen); Hyaline Casts Urine 0-2 /LPF (0-2); RBC Urine 0-2 /HPF (0-2); Squamous Epithelial Cell Urine 0-2 /HPF (0-2); UACC Culture Trigger YES; WBC Urine >50 /HPF (0-5)
== END 2022-12-26 13:46 | disposition home or self-care (01) ==
LOC: HO.LAB 13:45
PROVIDERS: PCP Internal Medicine; Visit Provider Internal Medicine
DX: R30.0 Dysuria (principal)
CPT/HCPCS: 81001; 87086

== ENCOUNTER 2023-01-13 16:56 | Inpatient (IN) | payer MEDICARE, BC, SELFPAY ==
[2023-01-13] VITALS (9 sets, daily range): BP systolic 104–126; BP diastolic 53–76; PULSE 56–67; RESP 14–18; TEMP 37.3–38.5; O2SAT 97–100; BMI 24.2
--- NOTE | 2023-01-13 | ECG_ITS ---
Test Reason : SHORTNESS OF BREATH Blood Pressure : / mmHG Vent. Rate : 060 BPM Atrial Rate : 060 BPM P-R Int : 156 ms QRS Dur : 100 ms QT Int : 594 ms P-R-T Axes : 090 027 101 degrees QTc Int : 594 ms Normal sinus rhythm Cannot rule out Inferior infarct , age undetermined Diffuse ST sagging Prolonged QT Abnormal ECG When compared with ECG of 13-SEP-2021 16:38, Normal sinus rhythm has replaced Atrial fibrillation with rapid ventricular response QT has lengthened Referred By: Maura Cruz Electronically Signed By:MADDIE ARIAS MD
--- NOTE | ~2023-01-13 | XR_ITS ---
EXAMINATION: XR CHEST CLINICAL INFORMATION: COPD. COMPARISON: CT chest 02/12/2022 TECHNIQUE: Frontal view of the chest was obtained. FINDINGS: The lungs are fairly well-expanded and clear of acute process. The heart size and pulmonary vascularity is normal. No gross bony abnormality seen. XR/XR chest 1V IMPRESSION: Unremarkable chest examination.
--- NOTE | ~2023-01-13 | US_ITS ---
EXAMINATION: US RENAL ARTERY DOPPLER CLINICAL INFORMATION: Renal artery stenosis. COMPARISON: 09/27/[address] scan of 04/24/2021. TECHNIQUE: Renal ultrasound. Doppler ultrasound (spectral analysis and color Doppler) of the renal arteries and aorta were performed. FINDINGS: The right kidney measures 8.9 cm x 5.7 cm x 4.2 cm in sagittal, AP and transverse dimensions. The left kidney measures 10.7 cm x 5.4 cm x 5.2 cm in sagittal, AP and transverse dimensions. The kidneys show no masses or calculi identified. There is left-sided lower pole caliectasis present and has been present in the past. No cortical thinning is appreciated. The corticomedullary differentiation is normal. RENAL ARTERY VELOCITIES: Right: Proximally: 149 cm/s. Mid: Not seen Distal: 118 cm/s. Left: Proximally: 189 cm/s. Mid: 230 cm/s. Distally: 178 cm/s. The aortic velocity is 75 cm/s. The renal aortic ratio is 2.0 on the right (normal) and 3.1 on the left (abnormal with stenosis of less than 60%). Previously left renal artery peak systolic velocity and renal to aortic ratio placed a stenosis in the greater than 60% range. Right renal: Interlobar resistive index upper pole 0.60, midpole 0.63, lower pole 0.72. This is normal. Left renal interlobar resistive index upper pole 0.66, midpole 0.61, lower pole 0.70. This is normal. Both renal veins are patent. US/US renal doppler IMPRESSION: Mild lower pole caliectasis of the left kidney. No evidence of cortical thinning. No hemodynamically significant right renal artery stenosis. Left renal artery hemodynamically significant stenosis but of less than 60% by today's measurements. On prior study of 09/27/2022 the peak systolic velocity measurements and ratio of renal artery peak systolic velocity and aortic peak systolic velocity placed the renal artery stenosis in the greater than 60% category.
--- NOTE | ~2023-01-13 | CT_ITS ---
EXAMINATION: CT CHEST WITHOUT CONTRAST CLINICAL INFORMATION: Short of breath COMPARISON: 02/12/2022 TECHNIQUE: Multidetector volumetric CT imaging of the chest was done. Axial MIP volume rendering provided. Sagittal and coronal reformatted images were obtained. This CT examination was performed using dose optimization techniques as appropriate, variously including the following: *Automated exposure control *Adjustment of mA and/or kV according to patient size (this includes techniques or standardized protocols for targeted exams where dose is matched to indication/reason for exam; i.e. extremities or head) *Use of iterative reconstruction technique DLP: 183 mGy-cm FINDINGS: REGIONAL MANAGER: Cardiac leads in place. Normally expanded lungs. LUNGS: The central airways are patent. In the anterior right middle lobe there is a masslike density measuring 3 x 1.5 cm, series 5 image 353. No additional consolidation. MEDIASTINUM: Normal heart size. No pericardial effusion. No mediastinal lymphadenopathy. The thyroid gland is unremarkable. CORONARY ARTERY CALCIFICATION: Severe PLEURA: There is no pleural effusion. No pleural mass or thickening. No pneumothorax. AXILLA: No lymphadenopathy. UPPER ABDOMEN: Cholecystectomy. No acute abnormalities. OSSEOUS STRUCTURES: No acute or suspicious osseous abnormality. Mild degenerative changes of the spine. CT/CT chest wo IV con IMPRESSION: Right middle lobe masslike density measuring 3 x 1.5 cm. This could represent pneumonia. Recommend short-term follow-up to resolution to exclude underlying mass. In the absence of infection, this could be further evaluated with PET/CT or tissue sampling. Fleischner guidelines were followed.
[2023-01-13 17:51] LABS: Basophils Percent Auto 0.1 % (0-2); Eosinophils Percent Auto 0.1 % (0-4); Hematocrit 35.3 % (37.0-47.0); Hemoglobin 11.2 g/dl (12.0-16.0); Imm Gran Abs Auto 0.08 X10*3/uL (0.00-0.03); Imm Gran Pct Auto 0.6 % (0.0-0.4); Lymphocytes Absolute Auto 0.5 X10*3/uL (1.2-4.9); Lymphocytes Percent Auto 3.5 % (20-40); MANUAL DIFF FLAG SCAN; Mean Corpuscular HGB Conc 31.7 g/dl (31.0-35.0); Mean Corpuscular Hemoglobin 25.8 pg (27.0-33.0); Mean Corpuscular Volume 81.3 fL (80.0-98.0); Mean Platelet Volume 10.9 fL (9.4-12.3); Monocytes Absolute Auto 0.6 X10*3/uL (0.1-1.2); Monocytes Percent Auto 4.8 % (2-11); Neutrophils Absolute Auto 12.2 x10*3/uL (2.0-8.3); Neutrophils Percent Auto 90.9 % (45-73); Platelet Count 211 X10*3/uL (160-400); Red Blood Count 4.34 X10*6/uL (4.20-5.50); Red Cell Distribution Width 14.3 % (11.0-16.0); SCAN SMEAR FLAG 1; White Blood Count 13.4 X10*3/uL (4.8-10.8)
[2023-01-13 18:07] LABS: Anion Gap 20 (12-20); Blood Urea Nitrogen 20 mg/dL (9-16); Calcium 8.2 mg/dL (8.4-10.2); Carbon Dioxide 21 mmol/L (22-29); Chloride 98 mmol/L (96-108); Estimated Glomerular Filt Rate 43; Glucose Random 83 mg/dL (60-115); Sodium 135 mmol/L (135-145)
[2023-01-13 18:10] LABS: Lactic Acid 4.2 mmol/L (0.5-2.0)
[2023-01-13 18:11] LABS: SLIDE REVIEW VERIFIED
--- NOTE | 2023-01-13 18:14 | PC.NURSE ---
late entry: aware of low BP, awaiting blood work results at this time
[2023-01-13 18:15] LABS: COVID-19 Test Negative (Negative); IDNOW Serial# 08D9AD1C
--- NOTE | 2023-01-13 18:24 | ED.GENADULT ---
HPI - General Adult General Chief complaint: Weakness Stated complaint: found on floor -Fall ? Time Seen by Provider: 01/13/23 17:40 Source: patient Mode of arrival: ambulatory Limitations: no limitations History of Present Illness HPI narrative: Patient comes to the emergency room complaining of increased weakness for 5 days and increased urination, incontinence. Patient denies fever chills. Patient states that 2 weeks ago, she was diagnosed with a UTI, treated with Macrobid. Patient states that today she slid out of bed. Patient states that he is not sure because she was weak. Patient landed softly in her buttocks. Patient states that she did not hit her head or lost consciousness. Patient does take apixaban daily. Related Data Home Medications Medication Instructions Recorded Confirmed interferon beta-1a 30 mcg/0.5 mL 30 mcg IM TU 10/03/20 01/13/23 intramuscular pen kit (Avonex) paroxetine HCl 40 mg tablet 40 mg PO BEDTIME 10/03/20 01/13/23 cholecalciferol (vitamin D3) 25 25 mcg PO DAILY 12/20/20 01/13/23 mcg (1,000 unit) tablet (Vitamin D3) cyanocobalamin (vitamin B-12) 1,000 mcg PO DAILY 12/20/20 01/13/23 1,000 mcg tablet (Vitamin B-12) furosemide 20 mg tablet 20 mg PO DAILY 05/15/21 01/13/23 diphenoxylate-atropine 2.5 1 tab PO DAILY PRN Diarrhea 01/07/22 01/13/23 mg-0.025 mg tablet clopidogrel 75 mg tablet 75 mg PO DAILY 04/23/22 01/13/23 lisinopril 10 mg tablet 10 mg PO DAILY 01/13/23 01/13/23 melatonin 10 mg tablet 10 mg PO BEDTIME PRN Insomnia 01/13/23 01/13/23 metoprolol succinate 50 mg 50 mg PO DAILY 01/13/23 01/13/23 tablet,extended release 24 hr Previous Rx's Medication Instructions Recorded atorvastatin 80 mg tablet 80 mg PO DAILY #90 tabs 06/29/22 oxybutynin chloride 5 mg tablet 5 mg PO BID #180 tabs 10/18/22 levothyroxine 50 mcg tablet 50 mcg PO DAILY #60 tabs 11/16/22 (Synthroid) omeprazole 20 mg capsule,delayed 20 mg PO QAM #90 caps 11/22/22 release apixaban 5 mg tablet (Eliquis) 5 mg PO BID #180 tabs 11/28/22 ferrous sulfate 325 mg (65 mg 325 mg PO DAILY #90 tabs 01/02/23 iron) tablet Allergies Allergy/AdvReac Type Severity Reaction Status Date / Time codeine [Codeine] AdvReac Mild vomiting Verified 01/10/23 09:45 Review of Systems Review of Systems: Constitutional : No Weight loss, No Fever, No Chills, No Night Sweats, complaining of fatigue and weakness ENT/Mouth : No Hearing loss, No Ear Pain, No Nasal Congestion, No Sinus Pain, No Hoarseness, No sore throat, No Rhinorrhea, No Swallowing Difficulty Eyes: No Eye Pain, No Swelling, No Redness, No Foreign Body, No Discharge, No Vision Changes Cardiovascular : No Chest Pain, No SOB, No Dyspnea on Exertion, No Orthopnea, No Edema, No Palpitations Respiratory : No Cough, No Sputum, No Wheezing, No Smoke Exposure, No Dyspnea Gastrointestinal : No Nausea, No Vomiting, No Diarrhea, No Constipation, No abdominal Pain, No Hematochezia, No Melena Genitourinary : No bleeding, no dysuria, no hematuria or flank pain. Patient complaining of frequency and urinary incontinence for 1 week. Denies saddle anesthesia Musculoskeletal : No joint pain, No Myalgias, No Joint Swelling Skin : No Skin Lesions, No rash Neuro : No Weakness, No Numbness, No Paresthesias, No Loss of Consciousness, No Dizziness, No Headache Psych : No Anxiety/Panic, No Depression, No SI/HI/AH/VH, No Social Issues, Heme/Lymph: No Bruising, No Bleeding,No Lymphadenopathy Endocrine : No Polyuria, No Polydipsia, No Temperature Intolerance [facility] Past Medical History Medical History Acute on chronic systolic (congestive) heart failure Asymmetric blood pressures Atherosclerotic cardiovascular disease CAD (coronary artery disease) Cardiomyopathy CHF (congestive heart failure) COPD (chronic obstructive pulmonary disease) Dyspnea on effort Essential hypertension Left renal artery stenosis Multiple sclerosis Peripheral arterial occlusive disease Personal history of nicotine dependence Pulmonary nodules Surgical History History of cholecystectomy (~02/2009) History of colonoscopy History of endoscopy History of heart artery stent (~2018) S/P cardiac cath (~12/2020) S/P insertion of iliac artery stent (~02/2019) Status post angioplasty with stent (~09/2018) Family History Family History Father No problems noted. Mother No problems noted. Brother Diabetes Social History Social History Household Members: None Housing: House Are you a primary home health care provider to a significant other at home: No Do you presently have visiting nurse or other home services: No Alcohol intake: never Patient Tobacco Use Status: Former Tobacco user Quit Date: 2017 Tobacco use type: Cigarette Smoked in Last 30 Days: No e-Cigarette/Vaping Use: Never Used Second Hand Smoke Exposure: No Use of substances other than those prescribed or required for medical reasons: No Advance Directives: Yes Advance Directives on File: Yes Advance Directives Date on File: 12/27/20 service: No Current occupational status: retired Cognitive needs: Yes (cane) Hearing needs: No Vision needs: Yes (reading glasses) Physical Exam ED Vital Signs: Vital Signs - 24 hr 01/13/23 17:04 01/13/23 17:42 01/13/23 19:12 Temperature 100.3 F 100.3 F 101.3 F H Pulse Rate 63 56 64 Respiratory Rate 16 14 15 Blood Pressure 104/61 106/56 L 118/53 L Pulse Oximetry 97 98 97 Oxygen Delivery Method Room Air Room Air 01/13/23 19:21 01/13/23 19:35 01/13/23 19:53 Temperature 100.0 F Pulse Rate 63 67 66 Respiratory Rate 17 16 14 Blood Pressure 125/71 126/68 123/66 Pulse Oximetry 98 97 97 Oxygen Delivery Method Room Air Room Air Room Air 01/13/23 20:13 Temperature 99.2 F Pulse Rate 61 Respiratory Rate 16 Blood Pressure 123/64 Pulse Oximetry 99 Oxygen Delivery Method Room Air BMI result Body Mass Index 24.2 Const Other: Appearance: Alert. Oriented X3. No acute distress. Eyes: Pupils equal, round and reactive to light. ENT: Pharynx normal. Neck: Normal inspection. Neck supple. No lymph nodes noted. No crepitus CVS: Normal heart rate and rhythm. Pulses normal. Normal S1 and S2 Respiratory: No respiratory distress. Breath sounds normal. No Wheezing. No rales Abdomen: Soft and nontender. No rigidity. No distention. Skin: Skin warm and dry. Normal skin color. Normal skin turgor. Extremities: No lower extremity edema. No Lacerations. No Rash Neuro: Oriented X 3. No motor deficit. No sensory deficit. Moving all extremities. No slurred speech. CN 2 through 12 grossly intact Psych: calm, cooperative, normal affect Course Course Course Narrative: -all of patient's labs are pending. Until now, we only know the lactic acid is elevated. Patient has been given herself nebulization treatments at home for her chronic lung disease. Patient has no respiratory symptoms, COPD exacerbation is not suspected at this time -patient seems to have urinary symptoms. -Patient does tend to run low blood pressures previously recorded specially if taken on the left arm. -given patient's symptoms and history of recent UTI, at this time, 18:30, we will go ahead and start patient on IV antibiotics and IV fluids, urinalysis is not available yet. Medications Administered Discontinued Medications Generic Name Dose Route Start Last Admin Trade Name Freq PRN Reason Stop Dose Admin Sodium Chloride 1,050 mls @ 999 mls/hr 01/13/23 18:29 01/13/23 19:30 Ns IVCONT 01/13/23 19:32 Infused .Q1H4M ONE Infusion Levofloxacin 500 mg in 100 mls @ 100 mls/hr 01/13/23 18:30 01/13/23 20:36 Levaquin IV 01/13/23 19:29 Infused ONCE ONE Infusion Medical Decision Making Medical Decision Making [facility] Narrative: -patient's urine resolved. Looks very similar to the urine analysis of 12/26/2022, which grew mixed bacterial ester -at this time, 19:12, patient has a fever of 101.3. Patient has already been started on emperic IV fluids and antibiotics. Blood pressure steady, 125/70 -I discussed all the above mentioned with the patient, patient agrees to be admitted. -Also, discussed the patient with Dr. Weston, patient being admitted Differential Diagnosis Differential Diagnoses: The differential diagnosis associated with the presentation includes (UTI, pyelonephritis) Admission/Observation Consideration of admission/observation: Escalation of care including admission/observation considered Consult Healthcare Provider Management of the patient was discussed with: Hospitalist Lab Data MDM Lab Attestation statement: I reviewed the patient's lab results. 01/13/23 17:36 01/13/23 17:36 Labs: Lab Results 01/13/23 01/13/23 01/13/23 Range/Units 17:35 17:35 17:36 WBC 13.4 H (4.8-10.8) X10*3/uL RBC 4.34 (4.20-5.50) X10*6/uL Hgb 11.2 L (12.0-16.0) g/dl Hct 35.3 L (37.0-47.0) % MCV 81.3 (80.0-98.0) fL MCH 25.8 L (27.0-33.0) pg MCHC 31.7 (31.0-35.0) g/dl RDW 14.3 (11.0-16.0) % Plt Count 211 (160-400) X10*3/uL MPV 10.9 (9.4-12.3) fL Immature Gran % (Auto) 0.6 H (0.0-0.4) % Neut % (Auto) 90.9 H (45-73) % Lymph % (Auto) 3.5 L (20-40) % [place] % (Auto) 4.8 (2-11) % Eos % (Auto) 0.1 (0-4) % Baso % (Auto) 0.1 (0-2) % Lymph # (Auto) 0.5 L (1.2-4.9) X10*3/uL [place] # (Auto) 0.6 (0.1-1.2) X10*3/uL Eos # (Auto) 0.0 (0.0-0.4) X10*3/uL Baso # (Auto) 0.0 (0.0-0.2) X10*3/uL Abs Immat Gran (auto) 0.08 H (0.00-0.03) X10*3/uL Absolute Neuts (auto) 12.2 H (2.0-8.3) x10*3/uL Absolute Nucleated RBC 0.000 (0.0-0.012) X10*3/uL Nucleated RBC % (auto) 0.0 (0.0-0.2) /100WBC Smear Tech's Comments VERIFIED Sodium (135-145) mmol/L Potassium (3.3-5.1) mmol/L Chloride (96-108) mmol/L Carbon Dioxide (22-29) mmol/L Anion Gap (12-20) BUN (9-16) mg/dL Creatinine (0.5-1.4) mg/dL Estim Creat Clear Calc Estimated GFR Random Glucose (60-115) mg/dL Lactic Acid 4.2 H* (0.5-2.0) mmol/L Lactic Acid F/U @ 2Hr (0.5-2.0) mmol/L Calcium (8.4-10.2) mg/dL Total Creatine Kinase (26-140) U/L B-Natriuretic Peptide 2713 H (<100) pg/mL Urine Color Urine Appearance Urine pH (5.0-9.0) Ur Specific [place] (1.005-1.025) Urine Protein (Neg-Trace) mg/dL Urine Glucose (UA) (Negative) mg/dL Urine Ketones (Negative) mg/dL Urine Blood (Negative) Urine Nitrite (Negative) Ur Leukocyte Esterase (Negative) Urine RBC (0-2) /HPF Urine WBC (0-5) /HPF Ur Squamous Epith Cells (0-2) /HPF Urine Bacteria (None Seen) Hyaline Casts (0-2) /LPF COVID-19 (JULIO) (Negative) COVID-19 Clin Com 01/13/23 01/13/23 01/13/23 Range/Units 17:36 17:40 18:32 WBC (4.8-10.8) X10*3/uL RBC (4.20-5.50) X10*6/uL Hgb (12.0-16.0) g/dl Hct (37.0-47.0) % MCV (80.0-98.0) fL MCH (27.0-33.0) pg MCHC (31.0-35.0) g/dl RDW (11.0-16.0) % Plt Count (160-400) X10*3/uL MPV (9.4-12.3) fL Immature Gran % (Auto) (0.0-0.4) % Neut % (Auto) (45-73) % Lymph % (Auto) (20-40) % [place] % (Auto) (2-11) % Eos % (Auto) (0-4) % Baso % (Auto) (0-2) % Lymph # (Auto) (1.2-4.9) X10*3/uL [place] # (Auto) (0.1-1.2) X10*3/uL Eos # (Auto) (0.0-0.4) X10*3/uL Baso # (Auto) (0.0-0.2) X10*3/uL Abs Immat Gran (auto) (0.00-0.03) X10*3/uL Absolute Neuts (auto) (2.0-8.3) x10*3/uL Absolute Nucleated RBC (0.0-0.012) X10*3/uL Nucleated RBC % (auto) (0.0-0.2) /100WBC Smear Tech's Comments Sodium 135 (135-145) mmol/L Potassium 4.0 (3.3-5.1) mmol/L Chloride 98 (96-108) mmol/L Carbon Dioxide 21 L (22-29) mmol/L Anion Gap 20 (12-20) BUN 20 H (9-16) mg/dL Creatinine 1.24 (0.5-1.4) mg/dL Estim Creat Clear Calc 40.0 Estimated GFR 43 Random Glucose 83 (60-115) mg/dL Lactic Acid (0.5-2.0) mmol/L Lactic Acid F/U @ 2Hr (0.5-2.0) mmol/L Calcium 8.2 L D (8.4-10.2) mg/dL Total Creatine Kinase 194 H (26-140) U/L B-Natriuretic Peptide (<100) pg/mL Urine Color Yellow Urine Appearance Turbid Urine pH >= 9.0 (5.0-9.0) Ur Specific [place] 1.010 (1.005-1.025) Urine Protein 100 (2+) H (Neg-Trace) mg/dL Urine Glucose (UA) Negative (Negative) mg/dL Urine Ketones Negative (Negative) mg/dL Urine Blood Large (3+) H (Negative) Urine Nitrite Negative (Negative) Ur Leukocyte Esterase Large (3+) H (Negative) Urine RBC 0-2 (0-2) /HPF Urine WBC >50 H (0-5) /HPF Ur Squamous Epith Cells 0-2 (0-2) /HPF Urine Bacteria 4+ (None Seen) Hyaline Casts 3-5 (0-2) /LPF COVID-19 (JULIO) Negative (Negative) COVID-19 Clin Com See Note 01/13/23 01/13/23 Range/Units 19:03 20:22 WBC (4.8-10.8) X10*3/uL RBC (4.20-5.50) X10*6/uL Hgb (12.0-16.0) g/dl Hct (37.0-47.0) % MCV (80.0-98.0) fL MCH (27.0-33.0) pg MCHC (31.0-35.0) g/dl RDW (11.0-16.0) % Plt Count (160-400) X10*3/uL MPV (9.4-12.3) fL Immature Gran % (Auto) (0.0-0.4) % Neut % (Auto) (45-73) % Lymph % (Auto) (20-40) % [place] % (Auto) (2-11) % Eos % (Auto) (0-4) % Baso % (Auto) (0-2) % Lymph # (Auto) (1.2-4.9) X10*3/uL [place] # (Auto) (0.1-1.2) X10*3/uL Eos # (Auto) (0.0-0.4) X10*3/uL Baso # (Auto) (0.0-0.2) X10*3/uL Abs Immat Gran (auto) (0.00-0.03) X10*3/uL Absolute Neuts (auto) (2.0-8.3) x10*3/uL Absolute Nucleated RBC (0.0-0.012) X10*3/uL Nucleated RBC % (auto) (0.0-0.2) /100WBC Smear Tech's Comments Sodium (135-145) mmol/L Potassium (3.3-5.1) mmol/L Chloride (96-108) mmol/L Carbon Dioxide (22-29) mmol/L Anion Gap (12-20) BUN (9-16) mg/dL Creatinine (0.5-1.4) mg/dL Estim Creat Clear Calc Estimated GFR Random Glucose (60-115) mg/dL Lactic Acid 3.9 H* (0.5-2.0) mmol/L Lactic Acid F/U @ 2Hr 1.9 (0.5-2.0) mmol/L Calcium (8.4-10.2) mg/dL Total Creatine Kinase (26-140) U/L B-Natriuretic Peptide (<100) pg/mL Urine Color Urine Appearance Urine pH (5.0-9.0) Ur Specific [place] (1.005-1.025) Urine Protein (Neg-Trace) mg/dL Urine Glucose (UA) (Negative) mg/dL Urine Ketones (Negative) mg/dL Urine Blood (Negative) Urine Nitrite (Negative) Ur Leukocyte Esterase (Negative) Urine RBC (0-2) /HPF Urine WBC (0-5) /HPF Ur Squamous Epith Cells (0-2) /HPF Urine Bacteria (None Seen) Hyaline Casts (0-2) /LPF COVID-19 (JULIO) (Negative) COVID-19 Clin Com Critical Care Time Critical Care Time Critical Care Time: Yes Total Critical Care Time: 60 Attestation: I have personally provided critical care time. Time includes review of lab data, radiology results, discussion with consultants, and monitoring for potential decompensation. Intervention performed as documented. Discharge Plan Discharge Clinical Impression: Acute UTI, Weakness Patient Disposition: Admitted As Inpatient Prescriptions: No Action clopidogrel 75 mg tablet 75 mg PO DAILY atorvastatin 80 mg tablet 80 mg PO DAILY Qty: 90 1RF oxybutynin chloride 5 mg tablet 5 mg PO BID Qty: 180 1RF levothyroxine [Synthroid] 50 mcg tablet 50 mcg PO DAILY Qty: 60 0RF omeprazole 20 mg capsule,delayed release(DR/EC) 20 mg PO QAM Qty: 90 1RF Eliquis 5 mg tablet 5 mg PO BID Qty: 180 2RF ferrous sulfate 325 mg (65 mg iron) tablet 325 mg PO DAILY Qty: 90 1RF cyanocobalamin (vitamin B-12) [Vitamin B-12] 1,000 mcg Tablet 1,000 mcg PO DAILY cholecalciferol (vitamin D3) [Vitamin D3] 25 mcg (1,000 unit) Tablet 25 mcg PO DAILY metoprolol succinate 50 mg Tablet Extended Release 24 Hr 50 mg PO DAILY lisinopril 10 mg Tablet 10 mg PO DAILY melatonin 10 mg Tablet 10 mg PO BEDTIME PRN (Reason: Insomnia) furosemide 20 mg tablet 20 mg PO DAILY paroxetine HCl 40 mg tablet 40 mg PO BEDTIME Avonex 30 mcg/0.5 mL pen injector kit 30 mcg IM TU diphenoxylate-atropine 2.5-0.025 mg tablet 1 tab PO DAILY PRN (Reason: Diarrhea)
[2023-01-13 18:43] LABS: Appearance Urine Turbid; Color Urine Yellow; Glucose Urine UA Negative (Negative); Leukocyte Esterase Urine Large (3+) (Negative); Nitrite Urine Negative (Negative); PH >= 9.0 (5.0-9.0); UMIC TRIGGER UACC YES; Urine Blood Large (3+) (Negative); Urine Ketones Negative (Negative); Urine Protein 100 (2+) mg/dL (Neg-Trace)
--- NOTE | 2023-01-13 18:47 | PC.NURSE ---
fluids started on pt, will administer antibiotic once second set of cultures are drawn, Kaylene, PCT in room at this time drawing pt
[2023-01-13 18:54] LABS: Bacteria Urine 4+ (None Seen); RBC Urine 0-2 /HPF (0-2); Squamous Epithelial Cell Urine 0-2 /HPF (0-2); UACC Culture Trigger YES; WBC Urine >50 /HPF (0-5)
[2023-01-13 19:09] LABS: B Type Natriuretic Peptide 2713 pg/mL (<100)
[2023-01-13] MEDS: levoFLOXacin/D5W 500 MG/100 ML PIGGYBACK 100 MG IV (19:15)
[2023-01-13 19:40] LABS: Reflex Lactate? Lactic Acid Added
[2023-01-13 19:51] LABS: Lactic Acid 3.9 mmol/L (0.5-2.0)
--- NOTE | 2023-01-13 20:18 | PC.NURSE ---
IV fluids and abx complete. Pt reporting some burning in pelvic area, relieved by cold wash cloth. Otherwise, VSS, pt is resting comfortably on stretcher with no other complaints. Skin pwd, respirations even and unlabored, continue plan of care Medication Rec done by pharmacy
--- NOTE | 2023-01-13 20:28 | PHA.MEDREC ---
Pharmacy Consult ? Medication Reconciliation Pharmacy has completed the medication reconciliation.
[2023-01-13 20:41] LABS: ~Lactic Acid-LAB USE ONLY 1.9 mmol/L (0.5-2.0)
[2023-01-13 21:11] LABS: Reflex Lactate? Lactic Acid Added
--- NOTE | 2023-01-13 21:15 | PM.IMHP ---
History of Present Illness Date of Service: 01/13/23 Attending physician on admission: Ibis Weston Chief Complaint: Polyuria, urinary incontinence 67-year-old female with history of multiple sclerosis, COPD, CHF, cardiomyopathy, coronary artery disease, hypertension, PAD, paroxysmal atrial fibrillation anticoagulated with Eliquis, hypothyroidism, renal artery stenosis who is a former smoker presented to the ED earlier today for evaluation of increased urinary frequency and urinary. She has also been weak and as a result when trying to get out of bed today, slid and softly landed on the floor though did not hit her head or lose consciousness. She was treated outpatient 2 weeks ago with 5 day course of Macrobid which she completed as prescribed. States symptoms improved but developed urinary incontinence 5 days ago. On arrival, vital stable though did develop fever of 101.3. Leukocytosis of 13.4. Renal function baseline, electrolyte levels normal. Initial lactic acid 3.9, repeat 1.9. BNP 2713. Pt does endorse orthopnea and GONZALEZ worsening x 2 weeks. Urinalysis with 3+ leukocytes, negative nitrites, 3+ blood, 2+ protein, positive urinary sediment, 4+ bacteria. In the ED, treated with 1 L IVF and Levaquin. Review of Systems Review of Systems: General: No fevers, malaise, unintentional weight loss HEENT: No blurred vision, diplopia. No sore throat, nasal congestion, rhinorrhea, sinus pain, ear pain Cardiovascular: No chest pain, palpitations, or leg edema Respiratory: +orthopnea, +GONZALEZ. No wheezing, cough GI: No abdominal pain, nausea, vomiting, diarrhea, constipation, melena, hematochezia : +increased urinary frequency, +urinary incontinence. No dysuria, hematuria, decreased urinary output MSK: No myalgia, back pain Neuro: No headaches, weakness, paresthesias Skin: No rashes or lesions COUNT INCLUDES THE [facility] Medical History Acute on chronic systolic (congestive) heart failure Asymmetric blood pressures Atherosclerotic cardiovascular disease CAD (coronary artery disease) Cardiomyopathy CHF (congestive heart failure) COPD (chronic obstructive pulmonary disease) Dyspnea on effort Essential hypertension Left renal artery stenosis Multiple sclerosis Peripheral arterial occlusive disease Personal history of nicotine dependence Pulmonary nodules Family History Father No problems noted. Mother No problems noted. Brother Diabetes Surgical History History of cholecystectomy (~02/2009) History of colonoscopy History of endoscopy History of heart artery stent (~2018) S/P cardiac cath (~12/2020) S/P insertion of iliac artery stent (~02/2019) Status post angioplasty with stent (~09/2018) Social History Household Members: None Housing: House Are you a primary wound care center consultant to a significant other at home: No Do you presently have visiting nurse or other home services: No Alcohol intake: never Patient Tobacco Use Status: Former Tobacco user Quit Date: 2017 Tobacco use type: Cigarette Smoked in Last 30 Days: No e-Cigarette/Vaping Use: Never Used Second Hand Smoke Exposure: No Use of substances other than those prescribed or required for medical reasons: No Currently Displaying Signs/Symptoms of Drug Intoxication Withdrawal: No Any prior treatment program specific to substance use: No Have you been hit, kicked, punched, or otherwise hurt by someone within the past year? If so, by whom?: No Do you feel safe in your current relationship?: No Is there a partner from a previous relationship who is making you feel unsafe now?: No Are you made to feel afraid or neglected: No Advance Directives: Yes Advance Directives Information Provided: No Advance Directives on File: Yes Advance Directives Date on File: 12/27/20 Do you have thoughts of harming others: None Do you have a plan to hurt others: No Plan Recently lost weight without trying: Yes How much weight loss: 24-33 pounds Eating poorly because of decreased appetite: Yes Nutrition screen score: 6 Nutrition Risks: No Nutritional Risk Patient : No : No Poor oral hygiene: No service: No Current occupational status: retired Cognitive needs: Yes (cane) Hearing needs: No Vision needs: Yes (reading glasses) Meds Allergies Allergy/AdvReac Type Severity Reaction Status Date / Time codeine [Codeine] AdvReac Mild vomiting Verified 01/10/23 09:45 Active Medications: Current Medications Pharmacy Consult (Consult Rx Perform Med Rec) 1 each MISCELLANE ONCE PRN PRN Reason: Consult order Home Medications Medication Instructions Recorded Confirmed Last Taken Type interferon beta-1a 30 mcg/0.5 mL 30 mcg IM TU 10/03/20 01/13/23 09/13/21 History intramuscular pen kit (Avonex) paroxetine HCl 40 mg tablet 40 mg PO BEDTIME 10/03/20 01/13/23 09/12/21 History cholecalciferol (vitamin D3) 25 25 mcg PO DAILY 12/20/20 01/13/23 09/13/21 History mcg (1,000 unit) tablet (Vitamin D3) cyanocobalamin (vitamin B-12) 1,000 mcg PO DAILY 12/20/20 01/13/23 09/13/21 History 1,000 mcg tablet (Vitamin B-12) furosemide 20 mg tablet 20 mg PO DAILY 05/15/21 01/13/23 09/13/21 History diphenoxylate-atropine 2.5 1 tab PO DAILY PRN Diarrhea 01/07/22 01/13/23 Unknown History mg-0.025 mg tablet clopidogrel 75 mg tablet 75 mg PO DAILY 04/23/22 01/13/23 Unknown History lisinopril 10 mg tablet 10 mg PO DAILY 01/13/23 01/13/23 Unknown History melatonin 10 mg tablet 10 mg PO BEDTIME PRN Insomnia 01/13/23 01/13/23 Unknown History metoprolol succinate 50 mg 50 mg PO DAILY 01/13/23 01/13/23 Unknown History tablet,extended release 24 hr Physical Exam Vital Signs and Narrative: Vital Signs: Last Vital Signs Temp 99.2 F 01/13/23 20:13 Pulse 61 01/13/23 20:13 Resp 16 01/13/23 20:13 BP 123/64 01/13/23 20:13 Pulse Ox 99 01/13/23 20:13 O2 Del Method 01/13/23 20:13 BMI result Body Mass Index 24.2 Constitutional - Awake and Alert, No apparent distress Eyes - PERRLA, EOMI Cardiovascular - S1S2, RRR, 2+ edema LLE, 1+ edema RLE Respiratory - Normal lung expansion, Normal respiratory effort, No respiratory distress, left sided basilar rales Gastrointestinal - NT / ND; +BS; No rebound or guarding - No CVA tenderness Extremities - no calf tenderness bilaterally, no swelling Skin - Warm/Dry Neurological - Alert & oriented x3, CN II-XII in tact, 5/5 strength BUE and BLE Psychological - Appropriate affect Results Labs 01/13/23 17:36 01/13/23 17:36 Labs: Laboratory Results - last 24 hr 01/13/23 01/13/23 01/13/23 17:35 17:35 17:36 MCV 81.3 MCH 25.8 L MCHC 31.7 RDW 14.3 Plt Count 211 MPV 10.9 Immature Gran % (Auto) 0.6 H Neut % (Auto) 90.9 H Lymph % (Auto) 3.5 L [place] % (Auto) 4.8 Eos % (Auto) 0.1 Baso % (Auto) 0.1 Lymph # (Auto) 0.5 L [place] # (Auto) 0.6 Eos # (Auto) 0.0 Baso # (Auto) 0.0 Abs Immat Gran (auto) 0.08 H Absolute Neuts (auto) 12.2 H Absolute Nucleated RBC 0.000 Nucleated RBC % (auto) 0.0 Smear Tech's Comments VERIFIED Anion Gap Estim Creat Clear Calc Estimated GFR Random Glucose Lactic Acid 4.2 H* Lactic Acid F/U @ 2Hr Calcium Total Creatine Kinase B-Natriuretic Peptide 2713 H Urine Color Urine Appearance Urine pH Ur Specific Coral Urine Protein Urine Glucose (UA) Urine Ketones Urine Blood Urine Nitrite Ur Leukocyte Esterase Urine RBC Urine WBC Ur Squamous Epith Cells Urine Bacteria Hyaline Casts COVID-19 (JULIO) COVID-19 Clin Com 01/13/23 01/13/23 01/13/23 17:36 17:40 18:32 MCV MCH MCHC RDW Plt Count MPV Immature Gran % (Auto) Neut % (Auto) Lymph % (Auto) [place] % (Auto) Eos % (Auto) Baso % (Auto) Lymph # (Auto) [place] # (Auto) Eos # (Auto) Baso # (Auto) Abs Immat Gran (auto) Absolute Neuts (auto) Absolute Nucleated RBC Nucleated RBC % (auto) Smear Tech's Comments Anion Gap 20 Estim Creat Clear Calc 40.0 Estimated GFR 43 Random Glucose 83 Lactic Acid Lactic Acid F/U @ 2Hr Calcium 8.2 L D Total Creatine Kinase 194 H B-Natriuretic Peptide Urine Color Yellow Urine Appearance Turbid Urine pH >= 9.0 Ur Specific [place] 1.010 Urine Protein 100 (2+) H Urine Glucose (UA) Negative Urine Ketones Negative Urine Blood Large (3+) H Urine Nitrite Negative Ur Leukocyte Esterase Large (3+) H Urine RBC 0-2 Urine WBC >50 H Ur Squamous Epith Cells 0-2 Urine Bacteria 4+ Hyaline Casts 3-5 COVID-19 (JULIO) Negative COVID-19 Clin Com See Note 01/13/23 01/13/23 19:03 20:22 MCV MCH MCHC RDW Plt Count MPV Immature Gran % (Auto) Neut % (Auto) Lymph % (Auto) [place] % (Auto) Eos % (Auto) Baso % (Auto) Lymph # (Auto) [place] # (Auto) Eos # (Auto) Baso # (Auto) Abs Immat Gran (auto) Absolute Neuts (auto) Absolute Nucleated RBC Nucleated RBC % (auto) Smear Tech's Comments Anion Gap Estim Creat Clear Calc Estimated GFR Random Glucose Lactic Acid 3.9 H* Lactic Acid F/U @ 2Hr 1.9 Calcium Total Creatine Kinase B-Natriuretic Peptide Urine Color Urine Appearance Urine pH Ur Specific Coral Urine Protein Urine Glucose (UA) Urine Ketones Urine Blood Urine Nitrite Ur Leukocyte Esterase Urine RBC Urine WBC Ur Squamous Epith Cells Urine Bacteria Hyaline Casts COVID-19 (JULIO) COVID-19 Clin Com Imaging Radiologist's Impressions: Impressions Chest X-Ray 01/13/23 19:29 IMPRESSION: Unremarkable chest examination. Assessment and Plan (1) CHF exacerbation: Status: Acute (2) Acute UTI: Status: Acute Plan 67-year-old female with history of multiple sclerosis, COPD, CHF, cardiomyopathy, coronary artery disease, hypertension, PAD, paroxysmal atrial fibrillation anticoagulated with Eliquis, hypothyroidism, renal artery stenosis who is a former smoker admitted for UTI with severe sepsis and CHF exacerbation. #UTI with severe sepsis -UA with 3+ leukocytes, negative nitrates, 2+ blood, positive urinary sediment, 4+ bacteria -febrile to 101.3, leukocytosis 13.1, lactic acid 4.1 improved to 1.9 with IVF -IV ceftriaxone daily x 5 days (initiated 01/13) -Tylenol p.r.n. for fever -continue oxybutynin -follow urine culture and blood cultures # acute CHF exacerbation -last echo 11/18 with normal LV systolic function with EF 59% and grade 1 diastolic dysfunction -BNP 2700, symptomatic with orthopnea and dyspnea on exertion -CXR negative, chest CT ordered for further evaluation -40 mg IV Lasix once, continue 20 mg IV Lasix daily -strict I&O -cardiac diet -appreciate cardiology input -admit to telemetry # paroxysmal atrial fibrillation-rate controlled -continue Eliquis -continue metoprolol #CAD/PAD/cardiomyopathy -no cp -continue Eliquis, statin, Plavix, bb # hypertension-reasonably controlled -continue home antihypertensives # hypothyroidism -continue levothyroxine # multiple sclerosis -stable DVT prophylaxis-on Eliquis Full code Patient requires inpatient stay of at least 2 midnights for management of UTI with severe sepsis and acute CHF exacerbation requiring IV antibiotics, IV diuresis, close monitoring, and expert consultation Time Spent With Patient Time: Total time managing care of this patient today ____ minutes. Quality Stroke Does the patient have a stroke diagnosis?: No VTE Prior VTE?: No VTE Risk Level:: Medical - moderate - high VTE Device Contraindication: Treatment Not Indicated VTE Drug Contraindication: N/A - Med Ordered
--- NOTE | 2023-01-13 21:16 | PC.NURSE ---
cancelled repeat lactic per request of MD, most recent lactic is 1.9
[2023-01-13] MEDS: PARoxetine HCL 40 MG TABLET PO (22:25)
[2023-01-13] MEDS: Apixaban 5 MG TABLET PO (22:25)
[2023-01-13] MEDS: cefTRIAXone sodium 1 GM in 0.9 % Sodium Chloride 50 ML IV (22:26)
[2023-01-13] MEDS: Furosemide 40 MG/4 ML VIAL IVPUSH (22:26)
--- NOTE | 2023-01-13 23:14 | PC.NURSE ---
pt provided with applesauce, resting comfortably at this time, denies pain and does not offer any other complaints. This RN repositioned IV, pt accidentally bumped it and it started bleeding. IV site no longer bleeding, and flushes well
--- NOTE | 2023-01-13 23:29 | PC.NURSE ---
pt repositioned to left side with assistance from this RN, pillow placed under hip/buttocks for support
--- NOTE | 2023-01-14 01:42 | PC.NURSE ---
patient sleeping, respirations even and unlabored, no apparent distress at this time. remains normal sinus on the monitor. Purewick in place and suctioning appropriately for incontience.
--- NOTE | 2023-01-14 02:57 | PC.NURSE ---
attempted to call report, nurse not available at this time
[2023-01-14 04:00] VITALS: BP 106/71; PULSE 68; RESP 14; TEMP 37.6; O2SAT 99
[2023-01-14] MEDS: Omeprazole 20 MG CAPSULE.DR PO (05:58)
[2023-01-14] MEDS: Levothyroxine Sodium 50 MCG TABLET PO (05:58)
[2023-01-14 07:00] LABS: MANUAL DIFF FLAG NO
[2023-01-14 07:04] LABS: Basophils Percent Auto 0.2 % (0-2); Eosinophils Percent Auto 0.1 % (0-4); Hemoglobin 10.1 g/dl (12.0-16.0); Imm Gran Abs Auto 0.08 X10*3/uL (0.00-0.03); Imm Gran Pct Auto 0.7 % (0.0-0.4); Lymphocytes Absolute Auto 0.6 X10*3/uL (1.2-4.9); Lymphocytes Percent Auto 5.7 % (20-40); Mean Corpuscular HGB Conc 32.6 g/dl (31.0-35.0); Mean Corpuscular Volume 79.9 fL (80.0-98.0); Mean Platelet Volume 11.1 fL (9.4-12.3); Monocytes Absolute Auto 0.7 X10*3/uL (0.1-1.2); Monocytes Percent Auto 6.7 % (2-11); Neutrophils Absolute Auto 9.5 x10*3/uL (2.0-8.3); Neutrophils Percent Auto 86.6 % (45-73); Platelet Count 194 X10*3/uL (160-400); Red Blood Count 3.88 X10*6/uL (4.20-5.50); Red Cell Distribution Width 14.4 % (11.0-16.0)
[2023-01-14 07:25] VITALS: BP 106/57; PULSE 67; RESP 20; TEMP 37.2; O2SAT 96
[2023-01-14 07:36] LABS: Blood Urea Nitrogen 21 mg/dL (9-16); Estimated Glomerular Filt Rate 32; Glucose Random 99 mg/dL (60-115)
[2023-01-14 07:48] LABS: Anion Gap 16 (12-20); Carbon Dioxide 25 mmol/L (22-29); Chloride 100 mmol/L (96-108); Sodium 138 mmol/L (135-145)
[2023-01-14] MEDS: Atorvastatin Calcium 80 MG TABLET PO (07:55)
[2023-01-14] MEDS: Apixaban 5 MG TABLET PO ×2 (07:55→20:36)
[2023-01-14] MEDS: oxyBUTYnin chloride ER 5 MG TAB.ER.24 10 MG PO (07:55)
[2023-01-14] MEDS: Ferrous Sulfate 324 MG TABLET.DR PO (07:55)
[2023-01-14] MEDS: Clopidogrel Bisulfate 75 MG TABLET PO (07:56)
[2023-01-14] MEDS: Cyanocobalamin (Vitamin B-12) 1,000 MCG TABLET 1000 MCG PO (07:56)
[2023-01-14] MEDS: Furosemide 20 MG/2 ML VIAL IVPUSH (07:56)
[2023-01-14] MEDS: 0.9 % Sodium Chloride Flush 3 ML SYRINGE IVFLUSH ×3 (07:56→23:24)
[2023-01-14] MEDS: Metoprolol Succinate ER 50 MG TAB.ER.24H PO (07:56)
[2023-01-14] MEDS: Cholecalciferol (Vitamin D3) 25 MCG TABLET PO (07:56)
[2023-01-14] MEDS: lisinopriL 10 MG TABLET PO (07:57)
[2023-01-14] MEDS: Potassium Chloride ER 20 MEQ TAB.ER.PRT PO (08:21)
--- NOTE | 2023-01-14 09:04 | MHC.CM.PN ---
CM met with Patient at bedside and addressed IMM with her, providing her with the original and placing a copy on the chart. Patient lives alone in a house and uses a cane and a walker to assist with mobility. 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 CM has initiated and will follow for dc planning. Patient has received Covid vax x4 and her PCP is Dr. Wakefield.
[2023-01-14 11:41] VITALS: BP 100/70; PULSE 68; RESP 16; TEMP 37.3; O2SAT 94
--- NOTE | 2023-01-14 12:11 | PM.CNCAR ---
History of Present Illness History of Present Illness Date of Service: 01/14/23 Consult reason: congestive heart failure Chief complaint: UTI w/severe sepsis, CHF exacerbation Narrative: I was consulted to see Naty in cardiology consultation today because of symptoms suggestive heart failure and significant elevated BNP. Patient 67-year-old female with complicated past medical history with history of peripheral vascular disease with bilateral SFA stenting, left renal artery stenosis by duplex, CAD with multiple stentings including RCA and circumflex stenting 2018 followed by mid circumflex stenting in March of 2022, paroxysmal atrial fibrillation, labile blood pressure, multiple sclerosis, diastolic heart failure, COPD presents to the hospital with urinary symptoms. Noted to have urosepsis with elevated lactic acid. However patient also said that she has been having intermittent symptoms of orthopnea and PND at home and was noted to have significantly elevated BNP. Patient was treated for sepsis with fluids and antibiotics and was also given Lasix because of elevated BNP. Chest x-ray was unremarkable. Also chest CT did not show any significant evidence of fluid overload. Patient's creatinine is increased today. She is laying flat in fact in a kind of had low position without significant shortness of breath. She is not using oxygen. Appears very comfortable at this point time. She has no significant leg edema. She Review of Systems Constitutional: Constitutional: Reports no additional constitutional complaints Cardiovascular: Cardiovascular: Denies chest pain, Denies leg edema, Denies Loss of Consciousness, Reports dyspnea on exertion, Reports orthopnea and Reports paroxysmal nocturnal dyspnea Respiratory: Respiratory: Reports no additional respiratory complaints and Reports dyspnea on exertion Gastrointestinal: Gastrointestinal: Reports no additional gastrointestinal complaints Genitourinary: Genitourinary: Reports dysuria and Reports urinary urgency Musculoskeletal: Musculoskeletal: Reports no additional musculoskeletal complaints Integumentary/Breasts: Skin/Breast: Reports system reviewed and no additional complaints, except as docu Neurologic: Reports system reviewed and no additional complaints, except as documented [facility] Past Medical History Medical History Acute on chronic systolic (congestive) heart failure Asymmetric blood pressures Atherosclerotic cardiovascular disease CAD (coronary artery disease) Cardiomyopathy CHF (congestive heart failure) COPD (chronic obstructive pulmonary disease) Dyspnea on effort Essential hypertension Left renal artery stenosis Multiple sclerosis Peripheral arterial occlusive disease Personal history of nicotine dependence Pulmonary nodules Family History Family History Father No problems noted. Mother No problems noted. Brother Diabetes Surgical History Surgical History History of cholecystectomy (~02/2009) History of colonoscopy History of endoscopy History of heart artery stent (~2018) S/P cardiac cath (~12/2020) S/P insertion of iliac artery stent (~02/2019) Status post angioplasty with stent (~09/2018) Social History Social History Household Members: None Housing: House Are you a primary health care consultant to a significant other at home: No Do you presently have visiting nurse or other home services: No Alcohol intake: never Patient Tobacco Use Status: Former Tobacco user Quit Date: 2017 Tobacco use type: Cigarette Smoked in Last 30 Days: No e-Cigarette/Vaping Use: Never Used Second Hand Smoke Exposure: No Use of substances other than those prescribed or required for medical reasons: No Currently Displaying Signs/Symptoms of Drug Intoxication Withdrawal: No Any prior treatment program specific to substance use: No Have you been hit, kicked, punched, or otherwise hurt by someone within the past year? If so, by whom?: No Do you feel safe in your current relationship?: No Is there a partner from a previous relationship who is making you feel unsafe now?: No Are you made to feel afraid or neglected: No Advance Directives: Yes Advance Directives Information Provided: No Advance Directives on File: Yes Advance Directives Date on File: 12/27/20 Do you have thoughts of harming others: None Do you have a plan to hurt others: No Plan Recently lost weight without trying: Yes How much weight loss: 24-33 pounds Eating poorly because of decreased appetite: Yes Nutrition screen score: 6 Nutrition Risks: No Nutritional Risk Patient : No : No Poor oral hygiene: No service: No Current occupational status: retired Cognitive needs: Yes (cane) Hearing needs: No Vision needs: Yes (reading glasses) Meds Allergies Allergy/AdvReac Type Severity Reaction Status Date / Time codeine [Codeine] AdvReac Mild vomiting Verified 01/10/23 09:45 Active Medications: Current Medications Acetaminophen (Acetaminophen 325 Mg Tablet) 650 mg PO Q6H PRN PRN Reason: Pain, Mild, fever Apixaban (Apixaban 5 Mg Tablet) 5 mg PO BID [facility] Last Admin: 01/14/23 07:55 Dose: 5 mg Atorvastatin Calcium (Atorvastatin Calcium 80 Mg Tablet) 80 mg PO DAILY [facility] Last Admin: 01/14/23 07:55 Dose: 80 mg Clopidogrel Bisulfate (Clopidogrel Bisulfate 75 Mg Tablet) 75 mg PO DAILY [facility] Last Admin: 01/14/23 07:56 Dose: 75 mg Cyanocobalamin (Cyanocobalamin (Vitamin B-12) 1,000 Mcg Tablet) 1,000 mcg PO DAILY [facility] Last Admin: 01/14/23 07:56 Dose: 1,000 mcg Diphenoxylate HCl/Atropine (Diphenoxylate/Atrop 2.5/0.025 Tablet) 1 tab PO DAILY PRN PRN Reason: Diarrhea Ferrous Sulfate (Ferrous Sulfate 324 Mg Tablet.) 324 mg PO DAILY [facility] Last Admin: 01/14/23 07:55 Dose: 324 mg Furosemide (Furosemide 20 Mg Tablet) 20 mg PO DAILY [facility]; Protocol Ceftriaxone Sodium 1 gm/ (Sodium Chloride) 50 mls @ 100 mls/hr IV Q24H [facility] Last Infusion: 01/13/23 23:14 Dose: Infused Levothyroxine Sodium (Levothyroxine Sodium 50 Mcg Tablet) 50 mcg PO DAILY@0630 [facility] Last Admin: 01/14/23 05:58 Dose: 50 mcg Lisinopril (Lisinopril 10 Mg Tablet) 10 mg PO DAILY [facility]; Protocol Last Admin: 01/14/23 07:57 Dose: 10 mg Melatonin (Melatonin 3 Mg Tablet) 9 mg PO BEDTIME PRN PRN Reason: Insomnia Metoprolol Succinate (Metoprolol Succinate Er 50 Mg Tab.Er.24h) 50 mg PO DAILY [facility]; Protocol Last Admin: 01/14/23 07:56 Dose: 50 mg Non-Formulary Medication (Interferon Beta-1a [Avonex]) 30 mcg IM TU [facility] Omeprazole (Omeprazole 20 Mg Capsule.) 20 mg PO DAILY@0630 [facility] Last Admin: 01/14/23 05:58 Dose: 20 mg Ondansetron HCl (Ondansetron Hcl 4 Mg/2 Ml Vial) 4 mg IVPUSH Q8H PRN PRN Reason: Nausea and Vomiting Oxybutynin Chloride (Oxybutynin Chloride Er 5 Mg Tab.Er.24) 10 mg PO DAILY [facility] Last Admin: 01/14/23 07:55 Dose: 10 mg Paroxetine HCl (Paroxetine Hcl 40 Mg Tablet) 40 mg PO BEDTIME [facility] Last Admin: 01/13/23 22:25 Dose: 40 mg Pharmacy Consult (Consult Rx Perform Med Rec) 1 each MISCELLANE ONCE PRN PRN Reason: Consult order Sodium Chloride (0.9 % Sodium Chloride Flush 3 Ml Syringe) 3 ml IVFLUSH QSHIFT [facility] Last Admin: 01/14/23 07:56 Dose: 3 ml Vitamin D (Cholecalciferol (Vitamin D3) 25 Mcg Tablet) 25 mcg PO DAILY [facility] Last Admin: 01/14/23 07:56 Dose: 25 mcg Home Medications Medication Instructions Recorded Confirmed Last Taken Type interferon beta-1a 30 mcg/0.5 mL 30 mcg IM TU 10/03/20 01/13/23 09/13/21 History intramuscular pen kit (Avonex) paroxetine HCl 40 mg tablet 40 mg PO BEDTIME 10/03/20 01/13/23 09/12/21 History cholecalciferol (vitamin D3) 25 25 mcg PO DAILY 12/20/20 01/13/23 09/13/21 History mcg (1,000 unit) tablet (Vitamin D3) cyanocobalamin (vitamin B-12) 1,000 mcg PO DAILY 12/20/20 01/13/23 09/13/21 History 1,000 mcg tablet (Vitamin B-12) furosemide 20 mg tablet 20 mg PO DAILY 05/15/21 01/13/23 09/13/21 History diphenoxylate-atropine 2.5 1 tab PO DAILY PRN Diarrhea 01/07/22 01/13/23 Unknown History mg-0.025 mg tablet clopidogrel 75 mg tablet 75 mg PO DAILY 04/23/22 01/13/23 Unknown History lisinopril 10 mg tablet 10 mg PO DAILY 01/13/23 01/13/23 Unknown History melatonin 10 mg tablet 10 mg PO BEDTIME PRN Insomnia 01/13/23 01/13/23 Unknown History metoprolol succinate 50 mg 50 mg PO DAILY 01/13/23 01/13/23 Unknown History tablet,extended release 24 hr Physical Exam Vital Signs: Vital Signs: Last Vital Signs Temp 99.1 F 01/14/23 11:41 Pulse 68 01/14/23 11:41 Resp 16 01/14/23 11:41 BP 100/70 01/14/23 11:41 Pulse Ox 94 01/14/23 11:41 O2 Del Method 01/14/23 11:41 BMI result Body Mass Index 24.2 Const: General: cooperative, comfortable, no acute distress, alert and awake Nutritional Appearance: average body habitus Orientation/consciousness: patient oriented x3 HEENT: Head: Yes normocephalic and Yes atraumatic Neck: Neck: Yes trachea midline, Yes supple and Yes no JVD Resp: Effort & Inspection: normal respiratory effort Auscultation: clear to auscultation bilaterally Cardio: Jugular venous distension: no JVD Palpation: normal PMI Rate: regular rate Rhythm: regular rhythm Heart sounds: S1 normal heart sound present, S2 normal heart sound present, no click, no gallops, no murmurs and no rubs GI: Auscultation: normal bowel sounds Skin: General skin exam: no rashes or lesions noted Neuro: General: patient oriented x3 and no focal motor deficits Extrem: General: Yes no clubbing, cyanosis or edema Objective Labs and Meds 01/14/23 06:40 01/14/23 06:40 Lab results: Laboratory Results - last 24 hr 01/13/23 01/13/23 01/13/23 17:35 17:35 17:36 WBC 13.4 H RBC 4.34 Hgb 11.2 L Hct 35.3 L MCV 81.3 MCH 25.8 L MCHC 31.7 RDW 14.3 Plt Count 211 MPV 10.9 Immature Gran % (Auto) 0.6 H Neut % (Auto) 90.9 H Lymph % (Auto) 3.5 L [place] % (Auto) 4.8 Eos % (Auto) 0.1 Baso % (Auto) 0.1 Lymph # (Auto) 0.5 L [place] # (Auto) 0.6 Eos # (Auto) 0.0 Baso # (Auto) 0.0 Abs Immat Gran (auto) 0.08 H Absolute Neuts (auto) 12.2 H Absolute Nucleated RBC 0.000 Nucleated RBC % (auto) 0.0 Smear Tech's Comments VERIFIED Sodium Potassium Chloride Carbon Dioxide Anion Gap BUN Creatinine Estim Creat Clear Calc Estimated GFR Random Glucose Lactic Acid 4.2 H* Lactic Acid F/U @ 2Hr Calcium Total Creatine Kinase B-Natriuretic Peptide 2713 H Urine Color Urine Appearance Urine pH Ur Specific [place] Urine Protein Urine Glucose (UA) Urine Ketones Urine Blood Urine Nitrite Ur Leukocyte Esterase Urine RBC Urine WBC Ur Squamous Epith Cells Urine Bacteria Hyaline Casts COVID-19 (JULIO) COVID-19 Clin Com 01/13/23 01/13/23 01/13/23 17:36 17:40 18:32 WBC RBC Hgb Hct MCV MCH MCHC RDW Plt Count MPV Immature Gran % (Auto) Neut % (Auto) Lymph % (Auto) [place] % (Auto) Eos % (Auto) Baso % (Auto) Lymph # (Auto) [place] # (Auto) Eos # (Auto) Baso # (Auto) Abs Immat Gran (auto) Absolute Neuts (auto) Absolute Nucleated RBC Nucleated RBC % (auto) Smear Tech's Comments Sodium 135 Potassium 4.0 Chloride 98 Carbon Dioxide 21 L Anion Gap 20 BUN 20 H Creatinine 1.24 Estim Creat Clear Calc 40.0 Estimated GFR 43 Random Glucose 83 Lactic Acid Lactic Acid F/U @ 2Hr Calcium 8.2 L D Total Creatine Kinase 194 H B-Natriuretic Peptide Urine Color Yellow Urine Appearance Turbid Urine pH >= 9.0 Ur Specific [place] 1.010 Urine Protein 100 (2+) H Urine Glucose (UA) Negative Urine Ketones Negative Urine Blood Large (3+) H Urine Nitrite Negative Ur Leukocyte Esterase Large (3+) H Urine RBC 0-2 Urine WBC >50 H Ur Squamous Epith Cells 0-2 Urine Bacteria 4+ Hyaline Casts 3-5 COVID-19 (JULIO) Negative COVID-19 Clin Com See Note 01/13/23 01/13/23 01/14/23 19:03 20:22 06:40 WBC 11.0 H RBC 3.88 L Hgb 10.1 L Hct 31.0 L MCV 79.9 L MCH 26.0 L MCHC 32.6 RDW 14.4 Plt Count 194 MPV 11.1 Immature Gran % (Auto) 0.7 H Neut % (Auto) 86.6 H Lymph % (Auto) 5.7 L [place] % (Auto) 6.7 Eos % (Auto) 0.1 Baso % (Auto) 0.2 Lymph # (Auto) 0.6 L [place] # (Auto) 0.7 Eos # (Auto) 0.0 Baso # (Auto) 0.0 Abs Immat Gran (auto) 0.08 H Absolute Neuts (auto) 9.5 H Absolute Nucleated RBC 0.000 Nucleated RBC % (auto) 0.0 Smear Tech's Comments Sodium Potassium Chloride Carbon Dioxide Anion Gap BUN Creatinine Estim Creat Clear Calc Estimated GFR Random Glucose Lactic Acid 3.9 H* Lactic Acid F/U @ 2Hr 1.9 Calcium Total Creatine Kinase B-Natriuretic Peptide Urine Color Urine Appearance Urine pH Ur Specific [place] Urine Protein Urine Glucose (UA) Urine Ketones Urine Blood Urine Nitrite Ur Leukocyte Esterase Urine RBC Urine WBC Ur Squamous Epith Cells Urine Bacteria Hyaline Casts COVID-19 ([facility]ULIO) COVID-19 Clin Com 01/14/23 06:40 WBC RBC Hgb Hct MCV MCH MCHC RDW Plt Count MPV Immature Gran % (Auto) Neut % (Auto) Lymph % (Auto) [place] % (Auto) Eos % (Auto) Baso % (Auto) Lymph # (Auto) [place] # (Auto) Eos # (Auto) Baso # (Auto) Abs Immat Gran (auto) Absolute Neuts (auto) Absolute Nucleated RBC Nucleated RBC % (auto) Smear Tech's Comments Sodium 138 Potassium 3.0 L D Chloride 100 Carbon Dioxide 25 Anion Gap 16 BUN 21 H Creatinine 1.60 H Estim Creat Clear Calc 31.0 Estimated GFR 32 Random Glucose 99 Lactic Acid Lactic Acid F/U @ 2Hr Calcium 8.0 L Total Creatine Kinase B-Natriuretic Peptide Urine Color Urine Appearance Urine pH Ur Specific [place] Urine Protein Urine Glucose (UA) Urine Ketones Urine Blood Urine Nitrite Ur Leukocyte Esterase Urine RBC Urine WBC Ur Squamous Epith Cells Urine Bacteria Hyaline Casts COVID-19 ([facility]ULIO) COVID-19 Clin Com Imaging Radiologist's impression: Impressions Chest X-Ray 01/13/23 19:29 IMPRESSION: Unremarkable chest examination. Chest CT 01/13/23 22:51 IMPRESSION: Right middle lobe masslike density measuring 3 x 1.5 cm. This could represent pneumonia. Recommend short-term follow-up to resolution to exclude underlying mass. In the absence of infection, this could be further evaluated with PET/CT or tissue sampling. Fleischner guidelines were followed. Assessment and Plan (1) CHF exacerbation: Status: Acute Patient presented with urinary symptoms and urosepsis and noted to be in heart failure. However today she appears to be not in significant heart failure with no requirement for oxygen laying flat and no evidence of fluid overload on clinical exam and lung exam sounds pretty benign. Will repeat her BNP at this point in time. Presence of flash pulmonary edema raises the possibility of renal artery stenosis related congestive heart failure and/or ischemic heart failure. She just had recent stenting of the circumflex artery in March at time of nonobstructive disease in the RCA and the LAD. Her filling pressures at that time were also within normal limits. Her creatinine is bumped up suggestive of decreased renal perfusion due to reduced stroke volume from over-diuresis. Would hold off on diuretics for 1 more day. She has labile blood pressure again pointing to the fact that this might be related to renal artery stenosis and should consider possible renal artery stenting. Follow-up with vascular surgery in the near future as outpatient. Continue treat her medical condition aggressively. Low likelihood of stress-induced cardiomyopathy causing heart failure. (2) PAF (paroxysmal atrial fibrillation): Status: Acute Paroxysmal atrial fibrillation, currently suppressed. She is on oral anticoagulation therapy with Eliquis. Will continue pursue rhythm control approach. Continue metoprolol therapy. She has QT prolongation on baseline EKG of unclear etiology. Follow-up and replace electrolytes if abnormal, check magnesium and replace potassium aggressively (3) CAD (coronary artery disease): Status: Acute Diffuse vascular disease including bilateral peripheral vascular disease, renal artery stenosis and possibly upper arterial extremity peripheral vascular disease as well as diffuse coronary disease with multiple stentings. Last stenting in March of 2022 to mid circumflex artery. Will probably require ischemic evaluation as outpatient. Continue aggressive medical therapy. Continue Plavix till March of 2023 in addition to her Eliquis therapy. Continue aggressive blood pressure control which appears to be labile. Continue high-intensity statin therapy with target goal LDL closer to 50 mg/dL. Will follow with you Time Spent With Patient Time: Total time managing care of this patient today ____ minutes. Procedures Date of Service Date of Service: 01/14/23
--- NOTE | 2023-01-14 12:14 | P.PNIM_ITS ---
Subjective Subjective Date of Service: 01/14/23 Review of Systems Follow up UTI feeling better no chest pain, sob, nausea, vomiting or diarrhea Physical Exam Vital Signs: Vital Signs: Last Vital Signs Temp 99.1 F 01/14/23 11:41 Pulse 68 01/14/23 11:41 Resp 16 01/14/23 11:41 BP 100/70 01/14/23 11:41 Pulse Ox 94 01/14/23 11:41 O2 Del Method 01/14/23 11:41 BMI result Body Mass Index 24.2 Appearing in no acute distress lung sounds are clear to auscultation heart regular rate rhythm, clear S1, S2 positive bowel sounds, abdomen is soft, nontender neuro patient is alert x3, no focal deficits Objective Data Active Medications Acetaminophen (Acetaminophen 325 Mg Tablet) 650 mg PO Q6H PRN PRN Reason: Pain, Mild, fever Apixaban (Apixaban 5 Mg Tablet) 5 mg PO BID [facility] Last Admin: 01/14/23 07:55 Dose: 5 mg Documented By: HENRIETTA Atorvastatin Calcium (Atorvastatin Calcium 80 Mg Tablet) 80 mg PO DAILY [facility] Last Admin: 01/14/23 07:55 Dose: 80 mg Documented By: HENRIETTA Clopidogrel Bisulfate (Clopidogrel Bisulfate 75 Mg Tablet) 75 mg PO DAILY [facility] Last Admin: 01/14/23 07:56 Dose: 75 mg Documented By: HENRIETTA Cyanocobalamin (Cyanocobalamin (Vitamin B-12) 1,000 Mcg Tablet) 1,000 mcg PO DAILY [facility] Last Admin: 01/14/23 07:56 Dose: 1,000 mcg Documented By: HENRIETTA Diphenoxylate HCl/Atropine (Diphenoxylate/Atrop 2.5/0.025 Tablet) 1 tab PO DAILY PRN PRN Reason: Diarrhea Ferrous Sulfate (Ferrous Sulfate 324 Mg Tablet.) 324 mg PO DAILY [facility] Last Admin: 01/14/23 07:55 Dose: 324 mg Documented By: HENRIETTA Furosemide (Furosemide 20 Mg Tablet) 20 mg PO DAILY [facility]; Protocol Ceftriaxone Sodium 1 gm/ (Sodium Chloride) 50 mls @ 100 mls/hr IV Q24H [facility] Last Infusion: 01/13/23 23:14 Dose: 0 mls/hr Documented By: JAIMIE Levothyroxine Sodium (Levothyroxine Sodium 50 Mcg Tablet) 50 mcg PO DAILY@0630 [facility] Last Admin: 01/14/23 05:58 Dose: 50 mcg Documented By: IVETTE Lisinopril (Lisinopril 10 Mg Tablet) 10 mg PO DAILY [facility]; Protocol Last Admin: 01/14/23 07:57 Dose: 10 mg Documented By: HENRIETTA Melatonin (Melatonin 3 Mg Tablet) 9 mg PO BEDTIME PRN PRN Reason: Insomnia Metoprolol Succinate (Metoprolol Succinate Er 50 Mg Tab.Er.24h) 50 mg PO DAILY [facility]; Protocol Last Admin: 01/14/23 07:56 Dose: 50 mg Documented By: HENRIETTA Non-Formulary Medication (Interferon Beta-1a [Avonex]) 30 mcg IM [facility] [place] Omeprazole (Omeprazole 20 Mg Capsule.Dr) 20 mg PO DAILY@629 [facility] Last Admin: 01/14/23 05:58 Dose: 20 mg Documented By: IVETTE Ondansetron HCl (Ondansetron Hcl 4 Mg/2 Ml Vial) 4 mg IVPUSH Q8H PRN PRN Reason: Nausea and Vomiting Oxybutynin Chloride (Oxybutynin Chloride Er 5 Mg Tab.Er.24) 10 mg PO DAILY [facility] Last Admin: 01/14/23 07:55 Dose: 10 mg Documented By: HENRIETTA Paroxetine HCl (Paroxetine Hcl 40 Mg Tablet) 40 mg PO BEDTIME [facility] Last Admin: 01/13/23 22:25 Dose: 40 mg Documented By: MARCELL Pharmacy Consult (Consult Rx Perform Med Rec) 1 each MISCELLANE ONCE PRN PRN Reason: Consult order Sodium Chloride (0.9 % Sodium Chloride Flush 3 Ml Syringe) 3 ml IVFLUSH QSHIFT [facility] Last Admin: 01/14/23 07:56 Dose: 3 ml Documented By: HENRIETTA Vitamin D (Cholecalciferol (Vitamin D3) 25 Mcg Tablet) 25 mcg PO DAILY [facility] Last Admin: 01/14/23 07:56 Dose: 25 mcg Documented By: HENRIETTA Labs 01/14/23 06:40 01/14/23 06:40 Labs: Laboratory Results - last 24 hr 01/13/23 01/13/23 01/13/23 17:35 17:35 17:36 MCV 81.3 MCH 25.8 L MCHC 31.7 RDW 14.3 Plt Count 211 MPV 10.9 Immature Gran % (Auto) 0.6 H Neut % (Auto) 90.9 H Lymph % (Auto) 3.5 L [place] % (Auto) 4.8 Eos % (Auto) 0.1 Baso % (Auto) 0.1 Lymph # (Auto) 0.5 L [place] # (Auto) 0.6 Eos # (Auto) 0.0 Baso # (Auto) 0.0 Abs Immat Gran (auto) 0.08 H Absolute Neuts (auto) 12.2 H Absolute Nucleated RBC 0.000 Nucleated RBC % (auto) 0.0 Smear Tech's Comments VERIFIED Anion Gap Estim Creat Clear Calc Estimated GFR Random Glucose Lactic Acid 4.2 H* Lactic Acid F/U @ 2Hr Calcium Total Creatine Kinase B-Natriuretic Peptide 2713 H Urine Color Urine Appearance Urine pH Ur Specific [place] Urine Protein Urine Glucose (UA) Urine Ketones Urine Blood Urine Nitrite Ur Leukocyte Esterase Urine RBC Urine WBC Ur Squamous Epith Cells Urine Bacteria Hyaline Casts COVID-19 (JULIO) COVID-[employer] 01/13/23 01/13/23 01/13/23 17:36 17:40 18:32 MCV MCH MCHC RDW Plt Count MPV Immature Gran % (Auto) Neut % (Auto) Lymph % (Auto) [place] % (Auto) Eos % (Auto) Baso % (Auto) Lymph # (Auto) [place] # (Auto) Eos # (Auto) Baso # (Auto) Abs Immat Gran (auto) Absolute Neuts (auto) Absolute Nucleated RBC Nucleated RBC % (auto) Smear Tech's Comments Anion Gap 20 Estim Creat Clear Calc 40.0 Estimated GFR 43 Random Glucose 83 Lactic Acid Lactic Acid F/U @ 2Hr Calcium 8.2 L D Total Creatine Kinase 194 H B-Natriuretic Peptide Urine Color Yellow Urine Appearance Turbid Urine pH >= 9.0 Ur Specific [place] 1.010 Urine Protein 100 (2+) H Urine Glucose (UA) Negative Urine Ketones Negative Urine Blood Large (3+) H Urine Nitrite Negative Ur Leukocyte Esterase Large (3+) H Urine RBC 0-2 Urine WBC >50 H Ur Squamous Epith Cells 0-2 Urine Bacteria 4+ Hyaline Casts 3-5 COVID-19 (JULIO) Negative COVID-[employer] See Note 01/13/23 01/13/23 01/14/23 19:03 20:22 06:40 MCV 79.9 L MCH 26.0 L MCHC 32.6 RDW 14.4 Plt Count 194 MPV 11.1 Immature Gran % (Auto) 0.7 H Neut % (Auto) 86.6 H Lymph % (Auto) 5.7 L [place] % (Auto) 6.7 Eos % (Auto) 0.1 Baso % (Auto) 0.2 Lymph # (Auto) 0.6 L [place] # (Auto) 0.7 Eos # (Auto) 0.0 Baso # (Auto) 0.0 Abs Immat Gran (auto) 0.08 H Absolute Neuts (auto) 9.5 H Absolute Nucleated RBC 0.000 Nucleated RBC % (auto) 0.0 Smear Tech's Comments Anion Gap Estim Creat Clear Calc Estimated GFR Random Glucose Lactic Acid 3.9 H* Lactic Acid F/U @ 2Hr 1.9 Calcium Total Creatine Kinase B-Natriuretic Peptide Urine Color Urine Appearance Urine pH Ur Specific [place] Urine Protein Urine Glucose (UA) Urine Ketones Urine Blood Urine Nitrite Ur Leukocyte Esterase Urine RBC Urine WBC Ur Squamous Epith Cells Urine Bacteria Hyaline Casts COVID-19 (JULIO) COVID-[employer] 01/14/23 06:40 MCV MCH MCHC RDW Plt Count MPV Immature Gran % (Auto) Neut % (Auto) Lymph % (Auto) [place] % (Auto) Eos % (Auto) Baso % (Auto) Lymph # (Auto) [place] # (Auto) Eos # (Auto) Baso # (Auto) Abs Immat Gran (auto) Absolute Neuts (auto) Absolute Nucleated RBC Nucleated RBC % (auto) Smear Tech's Comments Anion Gap 16 Estim Creat Clear Calc 31.0 Estimated GFR 32 Random Glucose 99 Lactic Acid Lactic Acid F/U @ 2Hr Calcium 8.0 L Total Creatine Kinase B-Natriuretic Peptide Urine Color Urine Appearance Urine pH Ur Specific [place] Urine Protein Urine Glucose (UA) Urine Ketones Urine Blood Urine Nitrite Ur Leukocyte Esterase Urine RBC Urine WBC Ur Squamous Epith Cells Urine Bacteria Hyaline Casts COVID-19 (JULIO) COVID-19 [place] Microbiology Microbiology Results: Microbiology 01/13/23 17:35 Blood Culture - Preliminary Blood - Venous Prelim: GNR Gram Stain only 01/13/23 19:03 Blood Culture - Preliminary Blood - Venous Prelim: GNR Gram Stain only 01/13/23 18:55 Urine Culture - Preliminary Urine clean catch - Urine mead top Gram negative jc Assessment and Plan (1) Atrial fibrillation with rapid ventricular response: Status: Acute (2) CHF (congestive heart failure): Status: Acute Assessment and Plan: 67-year-old female with history of multiple sclerosis, COPD, CHF, cardiomyopathy, coronary artery disease, hypertension, PAD, paroxysmal atrial fibrillation anticoagulated with Eliquis, hypothyroidism, renal artery stenosis who is a former smoker admitted for UTI with severe sepsis and CHF exacerbation. GNR bacteremia continue Rocephin follow final cx GNR UTI with severe sepsis, Sepsis resolved IV ceftriaxone Tylenol p.r.n. for fever continue oxybutynin acute CHF exacerbation echo 11/18 with normal LV systolic function with EF 59% and grade 1 diastolic dysfunction BNP 2700, symptomatic with orthopnea and dyspnea on exertion CXR negative, chest CT ordered for further evaluation 40 mg IV Lasix once, resume home oral dose seen by cardiology> does not feel that patient is in HF Hypokalemia replete SUSAN on ckd 3 likely secondary to hx of KIM Renal doppler pending paroxysmal atrial fibrillation-rate controlled continue Eliquis continue metoprolol CAD/PAD/cardiomyopathy no cp continue Eliquis, statin, Plavix, bb hypertension-reasonably controlled continue home antihypertensives hypothyroidism continue levothyroxine multiple sclerosis stable DVT prophylaxis-on Eliquis Attending Dr. Love Full code continue hospital stay for management of UTI with severe sepsis and acute CHF exacerbation requiring IV antibiotics, IV diuresis, close monitoring, and expert consultation Time Spent With Patient Time: Total time managing care of this patient today ____ minutes. Quality Stroke Does the patient have a stroke diagnosis?: No VTE Prior VTE?: No VTE Risk Level:: Medical - moderate - high VTE Device Contraindication: Treatment Not Indicated VTE Drug Contraindication: N/A - Med Ordered
[2023-01-14 15:05] VITALS: BP 100/60; PULSE 62; RESP 20; TEMP 36.3; O2SAT 97
[2023-01-14 19:31] VITALS: BP 131/56; PULSE 66; RESP 18; TEMP 37; O2SAT 98
[2023-01-14] MEDS: PARoxetine HCL 40 MG TABLET PO (20:36)
[2023-01-14 23:20] VITALS: BP 108/55; PULSE 68; RESP 20; TEMP 37.4; O2SAT 98
[2023-01-15] VITALS (8 sets, daily range): BP systolic 86–158; BP diastolic 52–74; PULSE 58–82; RESP 13–20; TEMP 36.1–37.5; O2SAT 90–98
[2023-01-15] MEDS: cefTRIAXone sodium 1 GM in 0.9 % Sodium Chloride 50 ML IV (04:26)
[2023-01-15] MEDS: Levothyroxine Sodium 50 MCG TABLET PO (06:17)
[2023-01-15] MEDS: Omeprazole 20 MG CAPSULE.DR PO (06:17)
[2023-01-15 06:45] LABS: Hematocrit 31.9 % (37.0-47.0); Hemoglobin 10.5 g/dl (12.0-16.0); Mean Corpuscular HGB Conc 32.9 g/dl (31.0-35.0); Mean Corpuscular Hemoglobin 26.3 pg (27.0-33.0); Mean Corpuscular Volume 79.8 fL (80.0-98.0); Mean Platelet Volume 11.4 fL (9.4-12.3); Platelet Count 184 X10*3/uL (160-400); Red Cell Distribution Width 14.3 % (11.0-16.0); White Blood Count 9.5 X10*3/uL (4.8-10.8)
[2023-01-15 07:09] LABS: Anion Gap 13 (12-20); Blood Urea Nitrogen 24 mg/dL (9-16); Calcium 7.8 mg/dL (8.4-10.2); Carbon Dioxide 24 mmol/L (22-29); Chloride 103 mmol/L (96-108); Creatinine Clr Calc Pharmacy 29.9; Estimated Glomerular Filt Rate 31; Glucose Random 125 mg/dL (60-115); Potassium 2.9 mmol/L (3.3-5.1); Sodium 137 mmol/L (135-145)
[2023-01-15] MEDS: Clopidogrel Bisulfate 75 MG TABLET PO (08:16)
[2023-01-15] MEDS: Cyanocobalamin (Vitamin B-12) 1,000 MCG TABLET 1000 MCG PO (08:16)
[2023-01-15] MEDS: Metoprolol Succinate ER 50 MG TAB.ER.24H PO (08:16)
[2023-01-15] MEDS: oxyBUTYnin chloride ER 5 MG TAB.ER.24 10 MG PO (08:16)
[2023-01-15] MEDS: Cholecalciferol (Vitamin D3) 25 MCG TABLET PO (08:16)
[2023-01-15] MEDS: Apixaban 5 MG TABLET PO ×2 (08:17→21:57)
[2023-01-15] MEDS: lisinopriL 10 MG TABLET PO (08:17)
[2023-01-15] MEDS: Atorvastatin Calcium 80 MG TABLET PO (08:17)
[2023-01-15] MEDS: Furosemide 20 MG TABLET PO (08:17)
[2023-01-15] MEDS: Potassium Chloride ER 20 MEQ TAB.ER.PRT 40 MEQ PO (08:42)
[2023-01-15 08:50] LABS: B Type Natriuretic Peptide 638 pg/mL (<100)
--- NOTE | 2023-01-15 09:27 | MHC.CM.PN ---
Per [employer], Patient is Bacteremic and not yet medically cleared for dc. Home remains the goal and CM will continue to follow.
--- NOTE | 2023-01-15 10:25 | P.PNCA_ITS ---
Subjective Subjective Date of Service: 01/15/23 Principal diagnosis: CHF, CAD Interval history: Patient is feeling better. No heart failure symptoms. Creatinine still remains elevated. BNP is significantly improved. Review of Systems Constitutional: Reports weakness Cardiovascular: Reports no additional cardiovascular complaints Gastrointestinal: Reports no additional gastrointestinal complaints Musculoskeletal: Reports no additional musculoskeletal complaints Reports system reviewed and no additional complaints, except as documented and Reports weakness Endocrine: Reports no additional endocrine complaints Physical Exam Vital Signs: Last Vital Signs Temp 98.2 F 01/15/23 08:00 Pulse 58 01/15/23 08:00 Resp 20 01/15/23 08:00 BP 113/58 L 01/15/23 08:00 Pulse Ox 97 01/15/23 08:00 O2 Del Method 01/15/23 08:00 BMI result Body Mass Index 24.2 Const General: cooperative, comfortable, no acute distress, alert and awake Nutritional Appearance: average body habitus Neck Neck: Yes trachea midline, Yes supple and Yes no JVD Resp Effort & Inspection: normal respiratory effort Auscultation: clear to auscultation bilaterally Cardio Jugular venous distension: no JVD Palpation: normal PMI Rate: regular rate Rhythm: regular rhythm Heart sounds: S1 normal heart sound present, S2 normal heart sound present, no click, no gallops, no murmurs and no rubs Skin General skin exam: no rashes or lesions noted Extrem General: Yes no clubbing, cyanosis or edema Objective Labs and Meds 01/15/23 06:19 01/15/23 06:19 Lab results: Laboratory Results - last 24 hr 01/15/23 01/15/23 01/15/23 06:19 06:19 06:19 WBC 9.5 RBC 4.00 L Hgb 10.5 L Hct 31.9 L MCV 79.8 L MCH 26.3 L MCHC 32.9 RDW 14.3 Plt Count 184 MPV 11.4 Absolute Nucleated RBC 0.000 Nucleated RBC % (auto) 0.0 Sodium 137 Potassium 2.9 L Chloride 103 Carbon Dioxide 24 Anion Gap 13 BUN 24 H Creatinine 1.66 H Estim Creat Clear Calc 29.9 Estimated GFR 31 Random Glucose 125 H Calcium 7.8 L B-Natriuretic Peptide 638 H Progress Note: A&P Assessment and plan (1) CHF exacerbation: Status: Acute Assessment and Plan: Admitted with acute UTI and sepsis possibly causing CHF exacerbation. Likely st ress-induced and could be related to renal artery stenosis. She does have labile blood pressures outpatient. Clinically today appears to be euvolemic and well compensated. Start Lasix 20 mg starting tomorrow. Continue blood pressure control which appears to be optimized today. Will pursue ischemic workup as outpatient. Should follow-up with vascular so consideration for left renal artery stenting. Continue manage her underlying medical condition as before. (2) PAF (paroxysmal atrial fibrillation): Status: Acute Assessment and Plan: Paroxysmal atrial fibrillation which has remained suppressed. Continue rhythm control approach currently on full oral anticoagulation, continue Eliquis. Will sign of the case and follow-up as outpatient. Time Spent With Patient Time: Total time managing care of this patient today ____ minutes. Progress Note: Quality Stroke Does the patient have a stroke diagnosis?: No Procedures Date of Service Date of Service: 01/15/23
--- NOTE | 2023-01-15 10:27 | HO.PM.IMPN ---
Subjective Subjective Date of Service: 01/15/23 Review of Systems Follow up UTI feeling better no chest pain, sob, nausea, vomiting or diarrhea Physical Exam Vital Signs: Vital Signs: Last Vital Signs Temp 98.2 F 01/15/23 08:00 Pulse 58 01/15/23 08:00 Resp 20 01/15/23 08:00 BP 113/58 L 01/15/23 08:00 Pulse Ox 97 01/15/23 08:00 O2 Del Method 01/15/23 08:00 BMI result Body Mass Index 24.2 Appearing in no acute distress lung sounds are clear to auscultation heart regular rate rhythm, clear S1, S2 positive bowel sounds, abdomen is soft, nontender neuro patient is alert x3, no focal deficits Objective Data Active Medications Acetaminophen (Acetaminophen 325 Mg Tablet) 650 mg PO Q6H PRN PRN Reason: Pain, Mild, fever Apixaban (Apixaban 5 Mg Tablet) 5 mg PO BID [facility] Last Admin: 01/15/23 08:17 Dose: 5 mg Documented By: DALLAS Atorvastatin Calcium (Atorvastatin Calcium 80 Mg Tablet) 80 mg PO DAILY [facility] Last Admin: 01/15/23 08:17 Dose: 80 mg Documented By: DALLAS Clopidogrel Bisulfate (Clopidogrel Bisulfate 75 Mg Tablet) 75 mg PO DAILY [facility] Last Admin: 01/15/23 08:16 Dose: 75 mg Documented By: DALLAS Cyanocobalamin (Cyanocobalamin (Vitamin B-12) 1,000 Mcg Tablet) 1,000 mcg PO DAILY [facility] Last Admin: 01/15/23 08:16 Dose: 1,000 mcg Documented By: DALLAS Diphenoxylate HCl/Atropine (Diphenoxylate/Atrop 2.5/0.025 Tablet) 1 tab PO DAILY PRN PRN Reason: Diarrhea Ferrous Sulfate (Ferrous Sulfate 324 Mg Tablet.) 324 mg PO BEDTIME [facility] Ceftriaxone Sodium 1 gm/ (Sodium Chloride) 50 mls @ 100 mls/hr IV Q24H [facility] Last Infusion: 01/15/23 04:56 Dose: 0 mls/hr Documented By: TAO Levothyroxine Sodium (Levothyroxine Sodium 50 Mcg Tablet) 50 mcg PO DAILY@0630 [facility] Last Admin: 01/15/23 06:17 Dose: 50 mcg Documented By: TAO Lisinopril (Lisinopril 10 Mg Tablet) 10 mg PO DAILY [facility]; Protocol Last Admin: 01/15/23 08:17 Dose: 10 mg Documented By: DALLAS Melatonin (Melatonin 3 Mg Tablet) 9 mg PO BEDTIME PRN PRN Reason: Insomnia Metoprolol Succinate (Metoprolol Succinate Er 50 Mg Tab.Er.24h) 50 mg PO DAILY [facility]; Protocol Last Admin: 01/15/23 08:16 Dose: 50 mg Documented By: DALLAS Non-Formulary Medication (Interferon Beta-1a [Avonex]) 30 mcg IM TU [facility] Omeprazole (Omeprazole 20 Mg Capsule.Dr) 20 mg PO DAILY@0630 [facility] Last Admin: 01/15/23 06:17 Dose: 20 mg Documented By: TAO Ondansetron HCl (Ondansetron Hcl 4 Mg/2 Ml Vial) 4 mg IVPUSH Q8H PRN PRN Reason: Nausea and Vomiting Oxybutynin Chloride (Oxybutynin Chloride Er 5 Mg Tab.Er.24) 10 mg PO DAILY [facility] Last Admin: 01/15/23 08:16 Dose: 10 mg Documented By: DALLAS Paroxetine HCl (Paroxetine Hcl 40 Mg Tablet) 40 mg PO BEDTIME [facility] Last Admin: 01/14/23 20:36 Dose: 40 mg Documented By: TAO Pharmacy Consult (Consult Rx Perform Med Rec) 1 each MISCELLANE ONCE PRN PRN Reason: Consult order Potassium Chloride (Potassium Chloride Er 20 Meq Tab.Er.Prt) 40 meq PO DAILY [facility] Last Admin: 01/15/23 08:42 Dose: 40 meq Documented By: DALLAS Sodium Chloride (0.9 % Sodium Chloride Flush 3 Ml Syringe) 3 ml IVFLUSH QSHIFT [facility] Last Admin: 01/15/23 07:17 Dose: Not Given Documented By: DALLAS Non-Admin Reason: See Note Vitamin D (Cholecalciferol (Vitamin D3) 25 Mcg Tablet) 25 mcg PO DAILY [facility] Last Admin: 01/15/23 08:16 Dose: 25 mcg Documented By: DALLAS Labs 01/15/23 06:19 01/15/23 06:19 Labs: Laboratory Results - last 24 hr 01/15/23 01/15/23 01/15/23 06:19 06:19 06:19 MCV 79.8 L MCH 26.3 L MCHC 32.9 RDW 14.3 Plt Count 184 MPV 11.4 Absolute Nucleated RBC 0.000 Nucleated RBC % (auto) 0.0 Anion Gap 13 Estim Creat Clear Calc 29.9 Estimated GFR 31 Random Glucose 125 H Calcium 7.8 L B-Natriuretic Peptide 638 H Microbiology Microbiology Results: Microbiology 01/13/23 19:03 Blood Culture - Preliminary Blood - Venous Gram negative jc 01/13/23 17:35 Blood Culture - Preliminary Blood - Venous Gram negative jc 01/13/23 18:55 Urine Culture - Final Urine clean catch - Urine mead top Proteus mirabilis Assessment and Plan (1) Atrial fibrillation with rapid ventricular response: Status: Acute (2) CHF (congestive heart failure): Status: Acute Assessment and Plan: 67-year-old female with history of multiple sclerosis, COPD, CHF, cardiomyopathy, coronary artery disease, hypertension, PAD, paroxysmal atrial fibrillation anticoagulated with Eliquis, hypothyroidism, renal artery stenosis who is a former smoker admitted for UTI with severe sepsis and CHF exacerbation. GNR bacteremia continue Rocephin follow final cx Proteus mirabilis UTI with severe sepsis, Sepsis resolved IV ceftriaxone Tylenol p.r.n. for fever continue oxybutynin ID consult acute CHF exacerbation echo 11/18 with normal LV systolic function with EF 59% and grade 1 diastolic dysfunction BNP 2700, symptomatic with orthopnea and dyspnea on exertion CXR negative, chest CT ordered for further evaluation 40 mg IV Lasix once, resume home oral dose seen by cardiology> does not feel that patient is in HF Hypokalemia replete SSUAN on ckd 3 likely secondary to hx of KIM Renal doppler pending hold lisinopril and lasix paroxysmal atrial fibrillation-rate controlled continue Eliquis continue metoprolol CAD/PAD/cardiomyopathy no cp continue Eliquis, statin, Plavix, bb hypertension-reasonably controlled continue home antihypertensives hypothyroidism continue levothyroxine multiple sclerosis stable DVT prophylaxis-on Eliquis Attending Dr. Lvoe Full code continue hospital stay for management of UTI with severe sepsis and acute CHF exacerbation requiring IV antibiotics, IV diuresis, close monitoring, and expert consultation Time Spent With Patient Time: Total time managing care of this patient today ____ minutes. Quality Stroke Does the patient have a stroke diagnosis?: No VTE Prior VTE?: No VTE Risk Level:: Medical - moderate - high VTE Device Contraindication: Treatment Not Indicated VTE Drug Contraindication: N/A - Med Ordered
[2023-01-15] MEDS: ondansetron HCL 4 MG/2 ML VIAL IVPUSH (14:48)
--- NOTE | 2023-01-15 16:29 | W.PM.IDCN ---
History of Present Illness Data of Consult Service Date: 01/15/23 Requesting physician: Zina Lamb Primary Care Provider: Rod Wakefield MD [facility] Reason for consult: bacteremia She has fatigue and right flank pain with some dysuria for the last week. She has no fever or chills. She has u/s pendint. She has Klebsiella pneumonia urine and blood culture pending. She doesnt use catheter at home and reports UTI years ago. Review of Systems Review of Systems: Yes all other systems are reviewed and are negative [facility] Past Medical History Medical History (Updated 01/15/23 @ 16:31 by Sun Foy MD) Acute on chronic systolic (congestive) heart failure Asymmetric blood pressures Atherosclerotic cardiovascular disease Bacteremia CAD (coronary artery disease) Cardiomyopathy CHF (congestive heart failure) COPD (chronic obstructive pulmonary disease) Dyspnea on effort Essential hypertension Left renal artery stenosis Multiple sclerosis Peripheral arterial occlusive disease Personal history of nicotine dependence Pulmonary nodules Family History Family History Father No problems noted. Mother No problems noted. Brother Diabetes Family history: reviewed and not pertinent Surgical History Surgical History History of cholecystectomy (~02/2009) History of colonoscopy History of endoscopy History of heart artery stent (~2018) S/P cardiac cath (~12/2020) S/P insertion of iliac artery stent (~02/2019) Status post angioplasty with stent (~09/2018) Social History Social History Household Members: None Housing: House Are you a primary critical care physician assistant to a significant other at home: No Do you presently have visiting nurse or other home services: No Alcohol intake: never Patient Tobacco Use Status: Former Tobacco user Quit Date: 2017 Tobacco use type: Cigarette Smoked in Last 30 Days: No e-Cigarette/Vaping Use: Never Used Second Hand Smoke Exposure: No Use of substances other than those prescribed or required for medical reasons: No Currently Displaying Signs/Symptoms of Drug Intoxication Withdrawal: No Any prior treatment program specific to substance use: No Have you been hit, kicked, punched, or otherwise hurt by someone within the past year? If so, by whom?: No Do you feel safe in your current relationship?: No Is there a partner from a previous relationship who is making you feel unsafe now?: No Are you made to feel afraid or neglected: No Advance Directives: Yes Advance Directives Information Provided: No Advance Directives on File: Yes Advance Directives Date on File: 12/27/20 Do you have thoughts of harming others: None Do you have a plan to hurt others: No Plan Recently lost weight without trying: Yes How much weight loss: 24-33 pounds Eating poorly because of decreased appetite: Yes Nutrition screen score: 6 Nutrition Risks: No Nutritional Risk Patient : No : No Poor oral hygiene: No service: No Current occupational status: retired Cognitive needs: Yes (cane) Hearing needs: No Vision needs: Yes (reading glasses) Meds Allergies Allergy/AdvReac Type Severity Reaction Status Date / Time codeine [Codeine] AdvReac Mild vomiting Verified 01/10/23 09:45 Active Medications: Current Medications Acetaminophen (Acetaminophen 325 Mg Tablet) 650 mg PO Q6H PRN PRN Reason: Pain, Mild, fever Apixaban (Apixaban 5 Mg Tablet) 5 mg PO BID [facility] Last Admin: 01/15/23 08:17 Dose: 5 mg Atorvastatin Calcium (Atorvastatin Calcium 80 Mg Tablet) 80 mg PO DAILY [facility] Last Admin: 01/15/23 08:17 Dose: 80 mg Clopidogrel Bisulfate (Clopidogrel Bisulfate 75 Mg Tablet) 75 mg PO DAILY [facility] Last Admin: 01/15/23 08:16 Dose: 75 mg Cyanocobalamin (Cyanocobalamin (Vitamin B-12) 1,000 Mcg Tablet) 1,000 mcg PO DAILY [facility] Last Admin: 01/15/23 08:16 Dose: 1,000 mcg Diphenoxylate HCl/Atropine (Diphenoxylate/Atrop 2.5/0.025 Tablet) 1 tab PO DAILY PRN PRN Reason: Diarrhea Ferrous Sulfate (Ferrous Sulfate 324 Mg Tablet.) 324 mg PO BEDTIME [facility] Ceftriaxone Sodium 1 gm/ (Sodium Chloride) 50 mls @ 100 mls/hr IV Q24H [facility] Last Infusion: 01/15/23 04:56 Dose: Infused Levothyroxine Sodium (Levothyroxine Sodium 50 Mcg Tablet) 50 mcg PO DAILY@0630 [facility] Last Admin: 01/15/23 06:17 Dose: 50 mcg Lisinopril (Lisinopril 10 Mg Tablet) 10 mg PO DAILY [facility]; Protocol Last Admin: 01/15/23 08:17 Dose: 10 mg Melatonin (Melatonin 3 Mg Tablet) 9 mg PO BEDTIME PRN PRN Reason: Insomnia Metoprolol Succinate (Metoprolol Succinate Er 50 Mg Tab.Er.24h) 50 mg PO DAILY [facility]; Protocol Last Admin: 01/15/23 08:16 Dose: 50 mg Omeprazole (Omeprazole 20 Mg Capsule.Dr) 20 mg PO DAILY@0630 [facility] Last Admin: 01/15/23 06:17 Dose: 20 mg Ondansetron HCl (Ondansetron Hcl 4 Mg/2 Ml Vial) 4 mg IVPUSH Q8H PRN PRN Reason: Nausea and Vomiting Last Admin: 01/15/23 14:48 Dose: 4 mg Oxybutynin Chloride (Oxybutynin Chloride Er 5 Mg Tab.Er.24) 10 mg PO DAILY [facility] Last Admin: 01/15/23 08:16 Dose: 10 mg Paroxetine HCl (Paroxetine Hcl 40 Mg Tablet) 40 mg PO BEDTIME [facility] Last Admin: 01/14/23 20:36 Dose: 40 mg Pharmacy Consult (Consult Rx Perform Med Rec) 1 each MISCELLANE ONCE PRN PRN Reason: Consult order Potassium Chloride (Potassium Chloride Er 20 Meq Tab.Er.Prt) 40 meq PO DAILY [facility] Last Admin: 01/15/23 08:42 Dose: 40 meq Sodium Chloride (0.9 % Sodium Chloride Flush 3 Ml Syringe) 3 ml IVFLUSH QSHIFT [facility] Last Admin: 01/15/23 12:51 Dose: Not Given Vitamin D (Cholecalciferol (Vitamin D3) 25 Mcg Tablet) 25 mcg PO DAILY [facility] Last Admin: 01/15/23 08:16 Dose: 25 mcg Home Medications Medication Instructions Recorded Confirmed Last Taken Type interferon beta-1a 30 mcg/0.5 mL 30 mcg IM TU 10/03/20 01/13/23 09/13/21 History intramuscular pen kit (Avonex) paroxetine HCl 40 mg tablet 40 mg PO BEDTIME 10/03/20 01/13/23 09/12/21 History cholecalciferol (vitamin D3) 25 25 mcg PO DAILY 12/20/20 01/13/23 09/13/21 History mcg (1,000 unit) tablet (Vitamin D3) cyanocobalamin (vitamin B-12) 1,000 mcg PO DAILY 12/20/20 01/13/23 09/13/21 History 1,000 mcg tablet (Vitamin B-12) furosemide 20 mg tablet 20 mg PO DAILY 05/15/21 01/13/23 09/13/21 History diphenoxylate-atropine 2.5 1 tab PO DAILY PRN Diarrhea 01/07/22 01/13/23 Unknown History mg-0.025 mg tablet clopidogrel 75 mg tablet 75 mg PO DAILY 04/23/22 01/13/23 Unknown History lisinopril 10 mg tablet 10 mg PO DAILY 01/13/23 01/13/23 Unknown History melatonin 10 mg tablet 10 mg PO BEDTIME PRN Insomnia 01/13/23 01/13/23 Unknown History metoprolol succinate 50 mg 50 mg PO DAILY 01/13/23 01/13/23 Unknown History tablet,extended release 24 hr Physical Exam Vital Signs: Vital Signs: Last Vital Signs Temp 96.9 F 01/15/23 15:07 Pulse 58 01/15/23 15:07 Resp 13 01/15/23 15:07 BP 102/58 L 01/15/23 15:30 Pulse Ox 96 01/15/23 15:07 O2 Del Method 01/15/23 15:07 BMI result Body Mass Index 24.2 Const: General: cooperative HEENT: Head: Yes normal to inspection Face and sinus: Yes normal facial exam Mouth: Normal oral and palatal mucosa present Teeth and gingiva: dentition normal Eyes: General: appearance normal, both eyes and all related structures Pupils: Equal, round and reactive pupils present Resp: Effort & Inspection: normal respiratory effort Cardio: Rate: regular rate Rhythm: regular rhythm GI: Other: mild right flank discomfort Palpation (GI): Soft to palpation and nontender : General: Yes no CVA tenderness Back/Spine/Pelvis: Back: no CVA tenderness Skin: General skin exam: no rashes or lesions noted Neuro: General: moves all extremities Cranial nerves: Yes Equal, round and reactive pupils present Extrem: General: Yes normal to inspection Psych: Appearance: grossly normal Results Labs 01/15/23 06:19 01/15/23 06:19 Labs: Short CBC 01/15/23 Range/Units 06:19 WBC 9.5 (4.8-10.8) X10*3/uL Hgb 10.5 L (12.0-16.0) g/dl Hct 31.9 L (37.0-47.0) % Plt Count 184 (160-400) X10*3/uL BMP 01/15/23 06:19 Sodium 137 Potassium 2.9 L Chloride 103 Carbon Dioxide 24 BUN 24 H Creatinine 1.66 H Calcium 7.8 L Microbiology Microbiology Results: Microbiology 01/13/23 19:03 Blood - Venous Blood Culture - Preliminary Gram negative jc 01/13/23 17:35 Blood - Venous Blood Culture - Preliminary Gram negative jc 01/13/23 18:55 Urine clean catch - Urine mead top Urine Culture - Final Proteus mirabilis Assessment and Plan (1) Bacteremia: Status: Acute There is possible bacteremia from urinary infection. Klebsiella pneumonia is likely She has u/s pending,evaluate for obstruction. Plan Continue Ceftriaxone (likely sensitive) Await final culture above. Probable 14 d including po Ceftin on discharge. Time Spent With Patient Time: Total time managing care of this patient today ____ minutes.
[2023-01-15] MEDS: Ferrous Sulfate 324 MG TABLET.DR PO (21:57)
[2023-01-15] MEDS: PARoxetine HCL 40 MG TABLET PO (21:57)
[2023-01-15] MEDS: 0.9 % Sodium Chloride Flush 3 ML SYRINGE IVFLUSH (21:58)
--- NOTE | 2023-01-16 01:15 | PM.EVENT ---
Event Note Date of Service: 01/16/23 Event Note: pt retaining urine. mahoney cath placed Time Spent With Patient Time: Total time managing care of this patient today ____ minutes.
[2023-01-16 03:41] VITALS: BP 111/58; PULSE 60; RESP 18; TEMP 37; O2SAT 95
[2023-01-16] MEDS: cefTRIAXone sodium 1 GM in 0.9 % Sodium Chloride 50 ML IV (07:04)
[2023-01-16] MEDS: Omeprazole 20 MG CAPSULE.DR PO (07:04)
[2023-01-16] MEDS: Levothyroxine Sodium 50 MCG TABLET PO (07:04)
--- NOTE | 2023-01-16 07:43 | PC.NURSE ---
Pt with distended abd, had not voided. Bladder scanned at 0100 for 999mL. Pt up to the commode with this RN, voided 200mL. Bladder scanned again and PVR was 834mL, Dr. Weston notified and order for straight cath. Pt was straight cathed for 750, PVR was 4ml. Pt did not void the rest of the night. Pt is dry this morning. Bladder scan at 0630 showed 247mL.
[2023-01-16 07:48] VITALS: BP 128/63; PULSE 57; RESP 20; TEMP 36.6; O2SAT 97
[2023-01-16] MEDS: Apixaban 5 MG TABLET PO ×2 (09:30→20:55)
[2023-01-16] MEDS: oxyBUTYnin chloride ER 5 MG TAB.ER.24 10 MG PO (09:30)
[2023-01-16] MEDS: Atorvastatin Calcium 80 MG TABLET PO (09:30)
[2023-01-16] MEDS: Metoprolol Succinate ER 50 MG TAB.ER.24H PO (09:30)
[2023-01-16] MEDS: Cholecalciferol (Vitamin D3) 25 MCG TABLET PO (09:30)
[2023-01-16] MEDS: Cyanocobalamin (Vitamin B-12) 1,000 MCG TABLET 1000 MCG PO (09:30)
[2023-01-16] MEDS: 0.9 % Sodium Chloride Flush 3 ML SYRINGE IVFLUSH (09:30)
[2023-01-16] MEDS: Potassium Chloride ER 20 MEQ TAB.ER.PRT 40 MEQ PO (09:30)
[2023-01-16] MEDS: Clopidogrel Bisulfate 75 MG TABLET PO (09:30)
[2023-01-16 10:34] LABS: Anion Gap 14 (12-20); Blood Urea Nitrogen 21 mg/dL (9-16); Calcium 8.1 mg/dL (8.4-10.2); Carbon Dioxide 24 mmol/L (22-29); Chloride 105 mmol/L (96-108); Creatinine Clr Calc Pharmacy 34.9; Estimated Glomerular Filt Rate 37; Glucose Random 85 mg/dL (60-115); Potassium 3.6 mmol/L (3.3-5.1); Sodium 139 mmol/L (135-145)
[2023-01-16 11:34] VITALS: BP 114/62; PULSE 54; RESP 20; TEMP 36.5; O2SAT 95
[2023-01-16 11:58] VITALS: BP 114/62; PULSE 54; O2SAT 95
--- NOTE | 2023-01-16 12:00 | MHC.CM.PN ---
PT is now recommending STR. CM met with Patient, who is agreeable to a SNF bed search; referrals have been made and CM will continue to follow.
--- NOTE | 2023-01-16 13:00 | P.PNIM_ITS ---
Subjective Subjective Date of Service: 01/16/23 Interval History: seen and examined this morning follow up for UTI/sepsis/bacteremia had urinary retention overnight requiring straight catheterization feeling tired and a little shaky when walking. no abdominal pain, fever, cough or sob Review of Systems Review of Systems: Yes all other systems are reviewed and are negative Constitutional Constitutional: Denies chills and Denies fever(s) Cardiovascular Cardiovascular: Denies chest pain, Denies palpitations and Denies dyspnea Respiratory Respiratory: Denies cough and Denies dyspnea Gastrointestinal Gastrointestinal: Denies abdominal pain, Denies nausea and Denies vomiting Endocrine Endocrine: Denies palpitations Physical Exam Vital Signs: Vital Signs: Last Vital Signs Temp 97.7 F 01/16/23 11:34 Pulse 54 01/16/23 11:58 Resp 20 01/16/23 11:34 BP 114/62 01/16/23 11:58 Pulse Ox 95 01/16/23 11:58 O2 Del Method Room Air 01/16/23 11:34 BMI result Body Mass Index 24.2 Const: General: comfortable, no acute distress, well developed, alert and awake Nutritional Appearance: average body habitus O rientation/consciousness: patient oriented x3 Resp: Effort & Inspection: normal respiratory effort and able to speak in complete sentences Auscultation: clear to auscultation bilaterally Cardio: Rate: regular rate GI: Inspection: No distended Palpation (GI): Soft to palpation Neuro: General: patient oriented x3 and CN's II-XI intact bilaterally Extrem: General: Yes no pedal edema Objective Data Active Medications Acetaminophen (Acetaminophen 325 Mg Tablet) 650 mg PO Q6H PRN PRN Reason: Pain, Mild, fever Apixaban (Apixaban 5 Mg Tablet) 5 mg PO BID [facility] Last Admin: 01/16/23 09:30 Dose: 5 mg Documented By: CARMEN Atorvastatin Calcium (Atorvastatin Calcium 80 Mg Tablet) 80 mg PO DAILY [facility] Last Admin: 01/16/23 09:30 Dose: 80 mg Documented By: CARMEN Clopidogrel Bisulfate (Clopidogrel Bisulfate 75 Mg Tablet) 75 mg PO DAILY [facility] Last Admin: 01/16/23 09:30 Dose: 75 mg Documented By: CARMEN Cyanocobalamin (Cyanocobalamin (Vitamin B-12) 1,000 Mcg Tablet) 1,000 mcg PO DAILY [facility] Last Admin: 01/16/23 09:30 Dose: 1,000 mcg Documented By: CARMEN Diphenoxylate HCl/Atropine (Diphenoxylate/Atrop 2.5/0.025 Tablet) 1 tab PO DAILY PRN PRN Reason: Diarrhea Ferrous Sulfate (Ferrous Sulfate 324 Mg Tablet.) 324 mg PO BEDTIME [facility] Last Admin: 01/15/23 21:57 Dose: 324 mg Documented By: YOHAN Ceftriaxone Sodium 1 gm/ (Sodium Chloride) 50 mls @ 100 mls/hr IV Q24H [facility] Last Infusion: 01/16/23 09:34 Dose: 0 mls/hr Documented By: CARMEN Levothyroxine Sodium (Levothyroxine Sodium 50 Mcg Tablet) 50 mcg PO DAILY@0630 [facility] Last Admin: 01/16/23 07:04 Dose: 50 mcg Documented By: SUZETTE Lisinopril (Lisinopril 10 Mg Tablet) 10 mg PO DAILY [facility]; Protocol Last Admin: 01/15/23 08:17 Dose: 10 mg Documented By: DALLAS Melatonin (Melatonin 3 Mg Tablet) 9 mg PO BEDTIME PRN PRN Reason: Insomnia Metoprolol Succinate (Metoprolol Succinate Er 50 Mg Tab.Er.24h) 50 mg PO DAILY [facility]; Protocol Last Admin: 01/16/23 09:30 Dose: 50 mg Documented By: CARMEN Omeprazole (Omeprazole 20 Mg Capsule.) 20 mg PO DAILY@0630 [facility] Last Admin: 01/16/23 07:04 Dose: 20 mg Documented By: SUZETTE Ondansetron HCl (Ondansetron Hcl 4 Mg/2 Ml Vial) 4 mg IVPUSH Q8H PRN PRN Reason: Nausea and Vomiting Last Admin: 01/15/23 14:48 Dose: 4 mg Documented By: GRACEEAZaina Oxybutynin Chloride (Oxybutynin Chloride Er 5 Mg Tab.Er.24) 10 mg PO DAILY [facility] Last Admin: 01/16/23 09:30 Dose: 10 mg Documented By: CARMEN Paroxetine HCl (Paroxetine Hcl 40 Mg Tablet) 40 mg PO BEDTIME [facility] Last Admin: 01/15/23 21:57 Dose: 40 mg Documented By: YOHAN Pharmacy Consult (Consult Rx Perform Med Rec) 1 each MISCELLANE ONCE PRN PRN Reason: Consult order Potassium Chloride (Potassium Chloride Er 20 Meq Tab.Er.Prt) 40 meq PO DAILY [facility] Last Admin: 01/16/23 09:30 Dose: 40 meq Documented By: CARMEN Sodium Chloride (0.9 % Sodium Chloride Flush 3 Ml Syringe) 3 ml IVFLUSH QSHIFT [facility] Last Admin: 01/16/23 09:30 Dose: 3 ml Documented By: CARMEN Vitamin D (Cholecalciferol (Vitamin D3) 25 Mcg Tablet) 25 mcg PO DAILY [facility] Last Admin: 01/16/23 09:30 Dose: 25 mcg Documented By: CARMEN Labs 01/15/23 06:19 01/16/23 09:18 Labs: Laboratory Results - last 24 hr 01/16/23 09:18 Anion Gap 14 Estim Creat Clear Calc 34.9 Estimated GFR 37 Random Glucose 85 Calcium 8.1 L Microbiology Microbiology Results: Microbiology 01/13/23 17:35 Blood Culture - Final Blood - Venous Proteus mirabilis 01/13/23 19:03 Blood Culture - Final Blood - Venous Proteus mirabilis Assessment and Plan (1) Bacteremia: Status: Acute (2) Acute UTI: Status: Acute (3) CHF (congestive heart failure): Status: Acute Assessment and Plan: 67-year-old female with history of multiple sclerosis, COPD, CHF, cardiomyopathy, coronary artery disease, hypertension, PAD, paroxysmal atrial fibrillation anticoagulated with Eliquis, hypothyroidism, renal artery stenosis who is a former smoker admitted for UTI with severe sepsis and CHF exacerbation. GNR bacteremia, Blood cultures growing proteus mirabilis continue Rocephin seen by ID, likely 14 days abx, ceftin on d/c Proteus mirabilis UTI with severe sepsis, Sepsis resolved continue IV ceftriaxone continue oxybutynin ID consult as above renal US pending to rule out obstruction acute CHF exacerbation echo 11/18 with normal LV systolic function with EF 59% and grade 1 diastolic dysfunction BNP 2700, symptomatic with orthopnea and dyspnea on exertion CXR negative, chest CT showing masslike deniy 40 mg IV Lasix once, resume home oral dose seen by cardiology> does not feel that patient is in HF Abnormal chest CT CT showing right middle lobe masslike denisity, could represent pneumonia does not have any respiratory symptoms recommend short term follow up to ensure resolution Hypokalemia replete improved to 3.6 SUSAN on ckd 3 likely secondary to hx of KIM Renal doppler pending hold lisinopril and lasix SCr improved to 1.42 paroxysmal atrial fibrillation-rate controlled continue Eliquis continue metoprolol CAD/PAD/cardiomyopathy no cp continue Eliquis, statin, Plavix, bb hypertension-reasonably controlled continue home antihypertensives hypothyroidism continue levothyroxine multiple sclerosis On Inerferon at baseline, NF, so far pt unable to bring in stable DVT prophylaxis-on Eliquis Attending Dr. Love Full code dispo - PT rec STR continue hospital stay for management of UTI with severe sepsis and acute CHF exacerbation requiring IV antibiotics, IV diuresis, close monitoring, and expert consultation Time Spent With Patient Time: Total time managing care of this patient today ____ minutes. Quality Stroke Does the patient have a stroke diagnosis?: No VTE Prior VTE?: No VTE Risk Level:: Medical - moderate - high VTE Device Contraindication: Treatment Not Indicated VTE Drug Contraindication: N/A - Med Ordered
[2023-01-16 15:09] VITALS: BP 105/50; PULSE 68; RESP 18; TEMP 37; O2SAT 98
[2023-01-16 20:00] VITALS: BP 128/67; PULSE 56; RESP 18; TEMP 36.7; O2SAT 97
[2023-01-16] MEDS: PARoxetine HCL 40 MG TABLET PO (20:55)
[2023-01-16] MEDS: Ferrous Sulfate 324 MG TABLET.DR PO (20:55)
[2023-01-16] MEDS: Docusate Sodium 100 MG CAPSULE PO (20:56)
[2023-01-17] VITALS (7 sets, daily range): BP systolic 102–156; BP diastolic 43–65; PULSE 51–59; RESP 17–19; TEMP 36.4–37.2; O2SAT 96–99
[2023-01-17] MEDS: Levothyroxine Sodium 50 MCG TABLET PO (06:13)
[2023-01-17] MEDS: cefTRIAXone sodium 1 GM in 0.9 % Sodium Chloride 50 ML IV (06:13)
[2023-01-17] MEDS: Omeprazole 20 MG CAPSULE.DR PO (06:13)
[2023-01-17] MEDS: ondansetron HCL 4 MG/2 ML VIAL IVPUSH (06:22)
[2023-01-17] MEDS: 0.9 % Sodium Chloride Flush 3 ML SYRINGE IVFLUSH ×2 (10:32→23:27)
[2023-01-17] MEDS: Cholecalciferol (Vitamin D3) 25 MCG TABLET PO (10:33)
[2023-01-17] MEDS: Apixaban 5 MG TABLET PO ×2 (10:33→20:10)
[2023-01-17] MEDS: Cyanocobalamin (Vitamin B-12) 1,000 MCG TABLET 1000 MCG PO (10:33)
[2023-01-17] MEDS: Potassium Chloride ER 20 MEQ TAB.ER.PRT 40 MEQ PO (10:33)
[2023-01-17] MEDS: Clopidogrel Bisulfate 75 MG TABLET PO (10:34)
[2023-01-17] MEDS: Atorvastatin Calcium 80 MG TABLET PO (10:34)
[2023-01-17] MEDS: Metoprolol Succinate ER 50 MG TAB.ER.24H PO (10:34)
[2023-01-17] MEDS: oxyBUTYnin chloride ER 5 MG TAB.ER.24 10 MG PO (10:34)
--- NOTE | 2023-01-17 12:14 | P.DS_ITS ---
DS: Providers Provider Date of Service: 01/18/23 Date of admission: 01/13/23 21:52 Date of discharge: 01/18/23 Primary care physician: Rod Wakefield MD Consults: 01/13/23 21:52 Consult to Cardiology Routine Consulting Provider: [facility] Cardiovascular Services Reason for consultation: chf exacerbation Has provider been notified: Yes 01/15/23 10:55 Consult to Infectious Diseases Routine Consulting Provider: [facility] Infectious Disease Reason for consultation: bacteremia Has provider been notified: No Attending physician on discharge: Sawyer Rogers Discharging clinician: Aide Valle DS: Diagnosis Discharge Diagnosis (1) Bacteremia: Status: Acute (2) Acute UTI: Status: Acute (3) CHF (congestive heart failure): Status: Acute DS: Summary Hospital Course Hospital Course: From H&P on day of admission 67-year-old female with history of multiple sclerosis, COPD, CHF, cardiomyopathy, coronary artery disease, hypertension, PAD, paroxysmal atrial fibrillation anticoagulated with Eliquis, hypothyroidism, renal artery stenosis who is a former smoker presented to the ED earlier today for evaluation of increased urinary frequency and urinary.? She has also been weak and as a result when trying to get out of bed today, slid and softly landed on the floor though did not hit her head or lose consciousness.? She was treated outpatient 2 weeks ago with 5 day course of Macrobid which she completed as prescribed. States symptoms improved but developed urinary incontinence 5 days ago.? On arrival, vital stable though did develop fever of 101.3.? Leukocytosis of 13.4.? Renal function baseline, electrolyte levels normal.? Initial lactic acid 3.9, repeat 1.9.? BNP 2713. Pt does endorse orthopnea and GONZALEZ worsening x 2 weeks. Urinalysis with 3+ leukocytes, negative nitrites, 3+ blood, 2+ protein, positive urinary sediment, 4+ bacteria.? In the ED, treated with 1 L IVF and Levaquin. Hospital Course by problem: GNR bacteremia, Blood cultures growing proteus mirabilis related to Proteus mirabilis UTI with severe sepsis, Sepsis resolved. Initially treated with IV ceftriaxone. renal US obtained, shows left renal artery stenosis, similar to previous. She was seen by ID, and recommend to discharge with total 14 days of antibiotics. acute CHF exacerbation echo 11/18 with normal LV systolic function with EF 59% and grade 1 diastolic dysfunction. BNP 2700, symptomatic with orthopnea and dyspnea on exertion. CXR negative, chest CT showing no fluid. she was treated with 40 mg IV Lasix once, and then resumed home oral dose as she was seen by cardiology who does not feel that patient is in HF. Abnormal chest CT CT showing right middle lobe masslike denisity, could represent pneumonia does not have any respiratory symptoms recommend short term follow up to ensure resolution Hypokalemia improved with po replacement. recommend repeat BMP early nect week. SUSAN on ckd 3. likely secondary to hx of KIM. Renal doppler unchanged. lisinopril and lasix?have been on hold. creatinine improving. bp stable. recommend repeat BMP next week and resume meds as bp/renal function allows Urinary retention. straight cath multiple times, mahoney placed. started on flomax, will need voiding trial and possible urology eval if voiding trial fails Patient was seen by PT who recommended STR. Patient is amenable and will be discharge to [facility]. Time Spent with Patient Time attestation: Total time managing care of this patient today ____ minutes. Discharge coordination time: Greater than 30 minutes Quality: Safe Use of Opioids Does Pt have an Active Cancer Diagnosis on the Problem List?: No Quality: Stroke Does the patient have a stroke diagnosis?: No Physical Exam Vital Signs: Vital Signs: Last Vital Signs Temp 97.5 F 01/17/23 11:59 Pulse 51 01/17/23 11:59 Resp 18 01/17/23 11:59 BP 134/65 01/17/23 11:59 Pulse Ox 98 01/17/23 11:59 O2 Del Method Room Air 01/17/23 11:59 BMI result Body Mass Index 24.2 Const: General: comfortable, no acute distress, well developed, alert and awake Nutritional Appearance: average body habitus Orientation/consciousness: patient oriented x3 Resp: Effort & Inspection: normal respiratory effort and able to speak in comp lete sentences Auscultation: clear to auscultation bilaterally Cardio: Rate: regular rate GI: Inspection: No distended Palpation (GI): Soft to palpation Neuro: General: patient oriented x3 and CN's II-XI intact bilaterally Extrem: General: Yes no pedal edema DS: Data Data Completed and Pending Completed studies during hospitalization [Text1]: Procedures Religion of Cardiac Rhythm, Single (09/13/21) Imaging CT scan - chest: Radiologist's impression: ITS Impressions Chest X-Ray 01/13/23 19:29 IMPRESSION: Unremarkable chest examination. Chest CT 01/13/23 22:51 IMPRESSION: Right middle lobe masslike density measuring 3 x 1.5 cm. This could represent pneumonia. Recommend short-term follow-up to resolution to exclude underlying mass. In the absence of infection, this could be further evaluated with PET/CT or tissue sampling. Fleischner guidelines were followed. Renal Ultrasound 01/14/23 19:04 IMPRESSION: Mild lower pole caliectasis of the left kidney. No evidence of cortical thinning. No hemodynamically significant right renal artery stenosis. Left renal artery hemodynamically significant stenosis but of less than 60% by today's measurements. On prior study of 09/27/2022 the peak systolic velocity measurements and ratio of renal artery peak systolic velocity and aortic peak systolic velocity placed the renal artery stenosis in the greater than 60% category. Renal Ultrasound 01/14/23 19:04 IMPRESSION: Mild lower pole caliectasis of the left kidney. No evidence of cortical thinning. No hemodynamically significant right renal artery stenosis. Left renal artery hemodynamically significant stenosis but of less than 60% by today's measurements. On prior study of 09/27/2022 the peak systolic velocity measurements and ratio of renal artery peak systolic velocity and aortic peak systolic velocity placed the renal artery stenosis in the greater than 60% category. Discharge Plan Discharge Anticipated Discharge Date/Time: 01/17/23 14:00 Patient Disposition: [facility] Discharge Diagnosis: Sepsis/UTI/bacteremia urinary retention Referrals: [facility] [Other] - 1 Week Rod Wakefield MD [Primary Care Provider] - 1 Week Discharge Medications: New tamsulosin 0.4 mg Capsule 0.4 mg PO BEDTIME 30 Days Qty: 30 0RF cefuroxime axetil 500 mg tablet 500 mg PO BID 9 Days Qty: 18 0RF Continued clopidogrel 75 mg tablet 75 mg PO DAILY atorvastatin 80 mg tablet 80 mg PO DAILY Qty: 90 1RF oxybutynin chloride 5 mg tablet 5 mg PO BID Qty: 180 1RF levothyroxine [Synthroid] 50 mcg tablet 50 mcg PO DAILY Qty: 60 0RF omeprazole 20 mg capsule,delayed release(DR/EC) 20 mg PO QAM Qty: 90 1RF Eliquis 5 mg tablet 5 mg PO BID Qty: 180 2RF ferrous sulfate 325 mg (65 mg iron) tablet 325 mg PO DAILY Qty: 90 1RF cyanocobalamin (vitamin B-12) [Vitamin B-12] 1,000 mcg Tablet 1,000 mcg PO DAILY cholecalciferol (vitamin D3) [Vitamin D3] 25 mcg (1,000 unit) Tablet 25 mcg PO DAILY metoprolol succinate 50 mg Tablet Extended Release 24 Hr 50 mg PO DAILY melatonin 10 mg Tablet 10 mg PO BEDTIME PRN (Reason: Insomnia) paroxetine HCl 40 mg tablet 40 mg PO BEDTIME Avonex 30 mcg/0.5 mL pen injector kit 30 mcg IM TU diphenoxylate-atropine 2.5-0.025 mg tablet 1 tab PO DAILY PRN (Reason: Diarrhea) Held lisinopril 10 mg Tablet 10 mg PO DAILY Hold Instructions: repeat BMP early next week. resume as BP/renal function allows furosemide 20 mg tablet 20 mg PO DAILY Hold Instructions: on hold for SUSAN. recheck BMP early next week and resume as renal function allows Discharge Orders: Discharge Order (Routine); Ordered 01/17/23 Ordered By: Aide Valle Activity on Discharge: As tolerated Stand Alone Forms: Patient Portal Discharge page Care Plan Goals: see below Health Concerns: Sepsis secondary to proteus mirabilis UTI and bacteremia Urinary retention abnormal Chest CT SUSAN mild CHF h/o KIM Plan of Treatment: Complete course of antibiotics as prescribed, end date 01/26 for urinary retention, flomax was started and a mahoney catheter was insertion 01/17. recommend voiding trial in 48 hours and urology evaluation if voiding trial fails SUSAN. renal function improving, baseline around 1.5. 1.42 on discharge. Lasix and lisinopril have been held during admission. Recommend to repeat BMP early next week and resume meds if renal function stable low potassium. recommend to repeat BMP early next week to evaluated potassium level KIM - US with stable KIM chest CT showing masslike density, no respiratory symptoms. recommend short term follow up to ensure resolution to exclude underlying mass Assessment: see discharge summary
--- NOTE | 2023-01-17 12:15 | MHC.CM.PN ---
pt to be dcd today to [facility] by amb at 2
--- NOTE | 2023-01-17 16:09 | MHC.CM.PN ---
pt has appealed dc [facility] will hold her bed per sergo cole,,dre caraballo all notifed of cancellation
[2023-01-17] MEDS: Ferrous Sulfate 324 MG TABLET.DR PO (20:10)
[2023-01-17] MEDS: Tamsulosin HCL 0.4 MG CAPSULE PO (20:10)
[2023-01-17] MEDS: PARoxetine HCL 40 MG TABLET PO (20:11)
[2023-01-17] MEDS: Docusate Sodium 100 MG CAPSULE PO (20:11)
[2023-01-17] MEDS: Acetaminophen 325 MG TABLET 650 MG PO (23:25)
[2023-01-18 03:48] VITALS: BP 122/56; PULSE 52; RESP 20; TEMP 36.6; O2SAT 94
[2023-01-18] MEDS: Omeprazole 20 MG CAPSULE.DR PO (05:21)
[2023-01-18] MEDS: Levothyroxine Sodium 50 MCG TABLET PO (05:21)
[2023-01-18] MEDS: cefTRIAXone sodium 1 GM in 0.9 % Sodium Chloride 50 ML IV (05:21)
[2023-01-18 07:47] VITALS: BP 119/56; PULSE 51; RESP 18; TEMP 36.4; O2SAT 99
[2023-01-18] MEDS: Clopidogrel Bisulfate 75 MG TABLET PO (10:20)
[2023-01-18] MEDS: Metoprolol Succinate ER 50 MG TAB.ER.24H PO (10:20)
[2023-01-18] MEDS: oxyBUTYnin chloride ER 5 MG TAB.ER.24 10 MG PO (10:20)
[2023-01-18] MEDS: Potassium Chloride ER 20 MEQ TAB.ER.PRT 40 MEQ PO (10:20)
[2023-01-18] MEDS: Apixaban 5 MG TABLET PO (10:21)
[2023-01-18] MEDS: 0.9 % Sodium Chloride Flush 3 ML SYRINGE IVFLUSH ×2 (10:21→15:40)
[2023-01-18] MEDS: Atorvastatin Calcium 80 MG TABLET PO (10:21)
[2023-01-18] MEDS: Cholecalciferol (Vitamin D3) 25 MCG TABLET PO (10:21)
[2023-01-18] MEDS: Cyanocobalamin (Vitamin B-12) 1,000 MCG TABLET 1000 MCG PO (10:21)
--- NOTE | 2023-01-18 10:35 | P.PNIM_ITS ---
Subjective Subjective Date of Service: 01/18/23 Interval History: seen and examined this morning follow up for bacteremia, UTI, urinary retention appealing discharge no overnight events Review of Systems Review of Systems: Yes all other systems are reviewed and are negative Constitutional Constitutional: Denies chills and Denies fever(s) ENT Ears, Nose, Mouth, and Throat: Denies dizziness Cardiovascular Cardiovascular: Denies chest pain, Denies palpitations and Denies dyspnea Respiratory Respiratory: Denies cough and Denies dyspnea Gastrointestinal Gastrointestinal: Denies abdominal pain, Denies nausea and Denies vomiting Neurologic Neurologic: Denies dizziness Endocrine Endocrine: Denies palpitations Physical Exam Vital Signs: Vital Signs: Last Vital Signs Temp 97.6 F 01/18/23 07:47 Pulse 51 01/18/23 07:47 Resp 18 01/18/23 07:47 BP 119/56 L 01/18/23 07:47 Pulse Ox 99 01/18/23 07:47 O2 Del Method Room Air 01/18/23 07:47 BMI result Body Mass Index 24.2 Const: General: comfortable, no acute distress, well developed, alert and tiffanie ke Nutritional Appearance: average body habitus Orientation/consciousness: patient oriented x3 Resp: Effort & Inspection: normal respiratory effort and able to speak in complete sentences Auscultation: clear to auscultation bilaterally Cardio: Rate: regular rate GI: Inspection: No distended Palpation (GI): Soft to palpation : Other: mahoney in place draining clear yellow urine Neuro: General: patient oriented x3 and CN's II-XI intact bilaterally Extrem: General: Yes no pedal edema Objective Data Active Medications Acetaminophen (Acetaminophen 325 Mg Tablet) 650 mg PO Q6H PRN PRN Reason: Pain, Mild, fever Last Admin: 01/17/23 23:25 Dose: 650 mg Documented By: IVETTE Apixaban (Apixaban 5 Mg Tablet) 5 mg PO BID [facility] Last Admin: 01/18/23 10:21 Dose: 5 mg Documented By: ARON Atorvastatin Calcium (Atorvastatin Calcium 80 Mg Tablet) 80 mg PO DAILY [facility] Last Admin: 01/18/23 10:21 Dose: 80 mg Documented By: ARON Clopidogrel Bisulfate (Clopidogrel Bisulfate 75 Mg Tablet) 75 mg PO DAILY [facility] Last Admin: 01/18/23 10:20 Dose: 75 mg Documented By: HO.COTEMA Cyanocobalamin (Cyanocobalamin (Vitamin B-12) 1,000 Mcg Tablet) 1,000 mcg PO DAILY [facility] Last Admin: 01/18/23 10:21 Dose: 1,000 mcg Documented By: COTEMA Diphenoxylate HCl/Atropine (Diphenoxylate/Atrop 2.5/0.025 Tablet) 1 tab PO D AILY PRN PRN Reason: Diarrhea Docusate Sodium (Docusate Sodium 100 Mg Capsule) 100 mg PO BEDTIME [facility] Last Admin: 01/17/23 20:11 Dose: 100 mg Documented By: IVETTE Ferrous Sulfate (Ferrous Sulfate 324 Mg Tablet.) 324 mg PO BEDTIME [facility] Last Admin: 01/17/23 20:10 Dose: 324 mg Documented By: IVETTE Ceftriaxone Sodium 1 gm/ (Sodium Chloride) 50 mls @ 100 mls/hr IV Q24H [facility] Last Infusion: 01/18/23 06:07 Dose: 0 mls/hr Documented By: IVETTE Levothyroxine Sodium (Levothyroxine Sodium 50 Mcg Tablet) 50 mcg PO DAILY@0630 [facility] Last Admin: 01/18/23 05:21 Dose: 50 mcg Documented By: IVETTE Lisinopril (Lisinopril 10 Mg Tablet) 10 mg PO DAILY [facility]; Protocol Last Admin: 01/15/23 08:17 Dose: 10 mg Documented By: GUALBERTO-ALIYA Melatonin (Melatonin 3 Mg Tablet) 9 mg PO BEDTIME PRN PRN Reason: Insomnia Metoprolol Succinate (Metoprolol Succinate Er 50 Mg Tab.Er.24h) 50 mg PO DAILY [facility]; Protocol Last Admin: 01/18/23 10:20 Dose: 50 mg Documented By: ARON Omeprazole (Omeprazole 20 Mg Capsule.) 20 mg PO DAILY@0630 [facility] Last Admin: 01/18/23 05:21 Dose: 20 mg Documented By: IVETTE Ondansetron HCl (Ondansetron Hcl 4 Mg/2 Ml Vial) 4 mg IVPUSH Q8H PRN PRN Reason: Nausea and Vomiting Last Admin: 01/17/23 06:22 Dose: 4 mg Documented By: LAMAR Oxybutynin Chloride (Oxybutynin Chloride Er 5 Mg Tab.Er.24) 10 mg PO DAILY [facility] Last Admin: 01/18/23 10:20 Dose: 10 mg Documented By: COTEMA Paroxetine HCl (Paroxetine Hcl 40 Mg Tablet) 40 mg PO BEDTIME [facility] Last Admin: 01/17/23 20:11 Dose: 40 mg Documented By: IVETTE Pharmacy Consult (Consult Rx Perform Med Rec) 1 each MISCELLANE ONCE PRN PRN Reason: Consult order Polyethylene Glycol (Polyethylene Glycol 3350 17 Gm Powd.Pack) 17 gm PO DAILY PRN PRN Reason: constipation Potassium Chloride (Potassium Chloride Er 20 Meq Tab.Er.Prt) 40 meq PO DAILY [facility] Last Admin: 01/18/23 10:20 Dose: 40 meq Documented By: COTEMA Sodium Chloride (0.9 % Sodium Chloride Flush 3 Ml Syringe) 3 ml IVFLUSH QSHIFT [facility] Last Admin: 01/18/23 10:21 Dose: 3 ml Documented By: BOEMA Tamsulosin HCl (Tamsulosin Hcl 0.4 Mg Capsule) 0.4 mg PO BEDTIME [facility] Last Admin: 01/17/23 20:10 Dose: 0.4 mg Documented By: IVETTE Vitamin D (Cholecalciferol (Vitamin D3) 25 Mcg Tablet) 25 mcg PO DAILY [facility] Last Admin: 01/18/23 10:21 Dose: 25 mcg Documented By: ARON Labs 01/15/23 06:19 01/16/23 09:18 Assessment and Plan (1) CHF (congestive heart failure): Status: Acute Assessment and Plan: 67-year-old female with history of multiple sclerosis, COPD, CHF, cardiomyopathy, coronary artery disease, hypertension, PAD, paroxysmal atrial fibrillation anticoagulated with Eliquis, hypothyroidism, renal artery stenosis who is a former smoker admitted for UTI with severe sepsis and CHF exacerbation. GNR bacteremia, Blood cultures growing proteus mirabilis continue Rocephin seen by ID, plan for 14 days abx, ceftin on d/c Proteus mirabilis UTI with severe sepsis, Sepsis resolved continue IV ceftriaxone continue oxybutynin ID consult as above urinary retention mahoney catheter placed started on flomax voiding trial after 48 hours, if fails outpatient follow up with urology acute CHF exacerbation echo 11/18 with normal LV systolic function with EF 59% and grade 1 diastolic dysfunction BNP 2700, symptomatic with orthopnea and dyspnea on exertion CXR negative, chest CT showing masslike density 40 mg IV Lasix once, resume home oral dose as renal function allows seen by cardiology> does not feel that patient is in HF Abnormal chest CT CT showing right middle lobe masslike denisity, could represent pneumonia does not have any respiratory symptoms recommend short term follow up to ensure resolution Hypokalemia improved SUSAN on ckd 3 likely secondary to hx of KIM Renal doppler similar to previous hold lisinopril and lasix SCr improved to 1.42 paroxysmal atrial fibrillation-rate controlled continue Eliquis continue metoprolol CAD/PAD/cardiomyopathy no cp continue Eliquis, statin, Plavix, bb hypertension-reasonably controlled continue metoprolol, lisinopril, lasix on hold for susan hypothyroidism continue levothyroxine multiple sclerosis On Inerferon at baseline, NF, so far pt unable to bring in stable DVT prophylaxis-on Eliquis Attending Dr. Benjamin Full code dispo - PT rec STR (2) Bacteremia: Status: Acute (3) Acute UTI: Status: Acute Time Spent With Patient Time: Total time managing care of this patient today ____ minutes. Quality Stroke Does the patient have a stroke diagnosis?: No VTE Prior VTE?: No VTE Risk Level:: Medical - moderate - high VTE Device Contraindication: Treatment Not Indicated VTE Drug Contraindication: N/A - Med Ordered
[2023-01-18 11:14] VITALS: BP 130/61; PULSE 52; RESP 17; TEMP 36.5; O2SAT 99
--- NOTE | 2023-01-18 15:24 | MHC.CM.PN ---
CM checked in [place] [employer]'s office for any documentation from [facility] regarding Patient's appeal and there was no such documentation as of yet. CM will follow.
--- NOTE | 2023-01-18 15:51 | MHC.CM.PN ---
Patient just informed CM that she received word from [place] that she has lost her appeal. BLAISE has reached out to [facility] (at Patient's request) to see if they can accept Patient today. CM awaits response in [facility].
[2023-01-18 16:00] VITALS: BP 127/89; PULSE 65; RESP 18; TEMP 36.6; O2SAT 98
--- NOTE | 2023-01-18 16:06 | MHC.CM.PN ---
Patient is medically cleared for dc to SNF/STR today. Patient will dc to [facility] today at 6PM via [facility]. Guest Relations Manager has agreed to send Covid results and dc summary with Patient and her dc paperwork. Patient is aware of and please with the dc plan. Last IMM addressed yesterday.
[2023-01-18 16:45] LABS: COVID-19 Test Negative (Negative); IDNOW Serial# 08D9AD1C
--- NOTE | 2023-10-19 11:45 | MHC.CM.PN ---
CM met with Patient at bedside to inform her that she has 2 bed offers ([facility] & [facility]); Patient is not interested in either and has asked for a referral to [facility], where she has been in the past. CM will follow.
--- NOTE | 2023-10-19 11:55 | MHC.CM.PN ---
CM was provided a list of holiday weekend Contacts for area SNFs; CM called Hvac Service Manager Sample Cutter/Rebeca @ [phone] at [facility]. Rebeca indicated that she is not aware of the weekend admitting process and that she has no one even available to review referral and approve admissions. [facility] Patient[facility] and a referral has been sent via [facility]. CM awaits a response from [facility], in [facility].
== END 2023-01-18 18:36 | disposition skilled nursing facility (03) | DRG 871 ==
LOC: HO.ED 21:22 → HO.EDOVER 22:13 → HO.IMC 01-14 02:10
PROVIDERS: Nurse Practitioner Acute Care; Admitting Provider Physician Assistant; Emergency Provider Emergency Medicine; PCP Internal Medicine; Visit Provider Physician Assistant Medical
DX: A41.9 Sepsis, unspecified organism (principal); I50.33 Acute on chronic diastolic (congestive) heart failure; J18.9 Pneumonia, unspecified organism; N39.0 Urinary tract infection, site not specified; I13.0 Hypertensive heart and chronic kidney disease with heart failure and stage 1 through stage 4 chronic kidney disease, or unspecified chronic kidney disease; N17.9 Acute kidney failure, unspecified; I42.9 Cardiomyopathy, unspecified; J44.0 Chronic obstructive pulmonary disease with (acute) lower respiratory infection; I25.10 Atherosclerotic heart disease of native coronary artery without angina pectoris; R65.20 Severe sepsis without septic shock; I73.9 Peripheral vascular disease, unspecified; I70.1 Atherosclerosis of renal artery; I48.0 Paroxysmal atrial fibrillation; G35 Multiple sclerosis; E87.6 Hypokalemia; E03.9 Hypothyroidism, unspecified; N18.30 Chronic kidney disease, stage 3 unspecified; R33.9 Retention of urine, unspecified; B96.4 Proteus (mirabilis) (morganii) as the cause of diseases classified elsewhere; Z20.822 Contact with and (suspected) exposure to COVID-19; Z87.891 Personal history of nicotine dependence; Z95.5 Presence of coronary angioplasty implant and graft; Z88.5 Allergy status to narcotic agent; Z79.01 Long term (current) use of anticoagulants; Z79.02 Long term (current) use of antithrombotics/antiplatelets; Z79.890 Hormone replacement therapy; Z79.899 Other long term (current) drug therapy
CPT/HCPCS: 36415; 71045; 71250; 76775; 80048; 81001; 82550; 83605; 83880; 85025; 85027; 87040; 87077; 87086; 87088; 87186; 87205; 87635; 93005; 93975; 97162; 99285; C1758; J0696; J1940; J1956; J2405

== ENCOUNTER 2023-01-20 06:21 | Outpatient (REF) | payer MEDICARE, BC, SELFPAY ==
[2023-01-20 06:23] LABS: MANUAL DIFF FLAG NO
[2023-01-20 06:45] LABS: Basophils Absolute Auto 0.1 X10*3/uL (0.0-0.2); Basophils Percent Auto 0.7 % (0-2); Eosinophils Absolute Auto 0.2 X10*3/uL (0.0-0.4); Eosinophils Percent Auto 2.8 % (0-4); Hematocrit 31.8 % (37.0-47.0); Hemoglobin 9.9 g/dl (12.0-16.0); Imm Gran Abs Auto 0.07 X10*3/uL (0.00-0.03); Imm Gran Pct Auto 0.9 % (0.0-0.4); Lymphocytes Absolute Auto 1.4 X10*3/uL (1.2-4.9); Lymphocytes Percent Auto 18.8 % (20-40); Mean Corpuscular HGB Conc 31.1 g/dl (31.0-35.0); Mean Corpuscular Hemoglobin 25.4 pg (27.0-33.0); Mean Corpuscular Volume 81.5 fL (80.0-98.0); Mean Platelet Volume 10.9 fL (9.4-12.3); Monocytes Absolute Auto 0.6 X10*3/uL (0.1-1.2); Monocytes Percent Auto 8.1 % (2-11); Neutrophils Absolute Auto 5.2 x10*3/uL (2.0-8.3); Neutrophils Percent Auto 68.7 % (45-73); Platelet Count 257 X10*3/uL (160-400); Red Cell Distribution Width 14.8 % (11.0-16.0); White Blood Count 7.6 X10*3/uL (4.8-10.8)
[2023-01-20 07:19] LABS: Alanine Aminotransferase 11 U/L (0-31); Albumin Level 2.5 g/dL (3.5-5.0); Alkaline Phosphatase 78 U/L (39-117); Anion Gap 13 (12-20); Aspartate Amino Transferase 13 U/L (5-31); Bilirubin Total 0.3 mg/dL (0.0-1.0); Blood Urea Nitrogen 14 mg/dL (9-16); Calcium 8.3 mg/dL (8.4-10.2); Carbon Dioxide 26 mmol/L (22-29); Chloride 107 mmol/L (96-108); Estimated Glomerular Filt Rate 44; Glucose Random 86 mg/dL (60-115); Potassium 4.8 mmol/L (3.3-5.1); Sodium 141 mmol/L (135-145)
== END 2023-01-20 06:22 | disposition home or self-care (01) ==
LOC: HO.MMNH1L 06:21
PROVIDERS: Visit Provider Family Medicine
DX: E11.9 Type 2 diabetes mellitus without complications (principal); I50.9 Heart failure, unspecified; N17.9 Acute kidney failure, unspecified
CPT/HCPCS: 36415; 80053; 85025

== ENCOUNTER → 2023-02-06 10:03 | Outpatient (REF) | payer MEDICARE, BC, SELFPAY ==
--- NOTE | ~2023-02-06 | NM_ITS ---
Myocardial perfusion study Indication: CHF to evaluate for myocardial ischemia Technique: The patient was brought in for a Lexiscan perfusion study on 02/06/2023. Patient performed low-level exercise and was injected 0.4 mg of Lexiscan intravenously. Within a minute of injection, 25 mCi of sestamibi was given intravenously. Images were obtained using the SPECT gamma camera interlaced with the gating device. Images were obtained in supine position. Resting perfusion study was performed on 02/07/2023. Patient was administered 25 mCi of sestamibi intravenously at rest. Images were then obtained in supine position. Images obtained with and without CT attenuation. Total DLP 80 mGy-cm. Images were processed with the software and compared side to side in short axis, horizontal long axis and vertical long axis views. Findings: The stress perfusion study showed non attenuated images show moderately reduced uptake in the basal inferior as well as adjacent mildly reduced uptake in the inferolateral and inferoseptal wall of the LV myocardium. Attenuation corrected images show mildly reduced uptake in the apex of the LV myocardium.. The gated study shows reduced LV systolic function with calculated LVEF of 46%. LV cavity is mildly dilated size. The gated study shows normal systolic wall thickening and contraction of segments. Resting study shows no significant change in perfusion pattern compared to stress perfusion study. Gating at rest reveals normal wall motion with ejection fraction at 47%. The findings are consistent with no clear significant reversible defect suggestive of ischemia.. NM/NM mar perf SPECT rest & str Impression: 1. Myocardial perfusion imaging study shows likely normal myocardial perfusion 2. Gated LVEF is 46% 3. Transient ischemic dilatation not present but LV cavity is dilated EKG is nondiagnostic for ischemia
--- NOTE | 2023-02-06 10:06 | CA_ITS ---
Acquisition Time: 2023-02-06 10:28:55 Total Exercise Time: 00:02:00 Test Indications: CHF, AFIB Medications: SEE H Protocol: LEXISCAN Max HR: 081 BPM 53% of Pred: 151 BPM Max BP: 108/062 mmHG Max Work Load: 1.0 METS PharmacologIcal stress test with Lexiscan injection while sitting and kicking her legs, without anginal symptoms, without arrythmias, with normotensive response to injection, without EKG changes with baseline EKG showing ST scooping infieror and V3-V6. Patient reversed with Aminophylline 75mg IVP. Nuclear images pending. Test reviewed with Dr. Kraus. Referred By: John Lizama Overread By: TRACI RIGGINS
== END ==
LOC: HO.CARD 10:03
PROVIDERS: PCP Internal Medicine; Visit Provider Internal Medicine
DX: I50.9 Heart failure, unspecified (principal)
CPT/HCPCS: 78452; 93017; A9500; J0280; J2785

== ENCOUNTER → 2023-02-24 13:32 | Outpatient (REF) | payer MEDICARE, BC, SELFPAY ==
--- NOTE | 2023-02-24 13:38 | HM_ITS ---
Conclusion: 1. Patient was monitored for total period of 3 days 2. Baseline was normal sinus with average heart rate of 57 beats per minute 3. Frequent sinus bradycardia with total burden of 64% with no significant pauses 4. Frequent PACs with total burden of 1.5% with 12 short burst of SVT longest lasting 16 beats and fastest at 124 beats per minute 5. No patient reported symptoms MTDD
== END ==
LOC: HO.CARD 13:32
PROVIDERS: PCP Internal Medicine; Visit Provider Internal Medicine
DX: I48.0 Paroxysmal atrial fibrillation (principal)
CPT/HCPCS: 93242

== ENCOUNTER → 2023-02-25 14:51 | Outpatient (BNVA) | payer MEDICARE, BC, SELFPAY | PROVIDERS: PCP Internal Medicine; Visit Provider Internal Medicine | DX: J44.9 Chronic obstructive pulmonary disease, unspecified (principal); R91.8 Other nonspecific abnormal finding of lung field | CPT/HCPCS: 99212 ==

== ENCOUNTER → 2023-04-03 14:10 | Outpatient (BNVA) | payer MEDICARE, BC, SELFPAY | PROVIDERS: PCP Internal Medicine; Referring Provider Internal Medicine; Visit Provider Internal Medicine | DX: I25.10 Atherosclerotic heart disease of native coronary artery without angina pectoris (principal); I42.8 Other cardiomyopathies; I48.0 Paroxysmal atrial fibrillation; I12.9 Hypertensive chronic kidney disease with stage 1 through stage 4 chronic kidney disease, or unspecified chronic kidney disease; N18.32 Chronic kidney disease, stage 3b; N25.0 Renal osteodystrophy; I70.1 Atherosclerosis of renal artery; Z79.899 Other long term (current) drug therapy | CPT/HCPCS: 36415; 80051; 81003; 82040; 82043; 82306; 82310; 82565; 83735; 83970; 84100; 84156; 84520; 85025; 93005; 99212 ==

== ENCOUNTER 2023-04-03 15:00 | Outpatient (REF) | payer MEDICARE, BC, SELFPAY ==
[2023-04-03 15:24] LABS: MANUAL DIFF FLAG NO
[2023-04-03 15:44] LABS: Basophils Absolute Auto 0.1 X10*3/uL (0.0-0.2); Basophils Percent Auto 1.4 % (0-2); Eosinophils Absolute Auto 0.2 X10*3/uL (0.0-0.4); Eosinophils Percent Auto 3.1 % (0-4); Hematocrit 32.9 % (37.0-47.0); Hemoglobin 10.4 g/dl (12.0-16.0); Imm Gran Abs Auto 0.01 X10*3/uL (0.00-0.03); Imm Gran Pct Auto 0.2 % (0.0-0.4); Lymphocytes Absolute Auto 1.1 X10*3/uL (1.2-4.9); Lymphocytes Percent Auto 20.6 % (20-40); Mean Corpuscular HGB Conc 31.6 g/dl (31.0-35.0); Mean Corpuscular Hemoglobin 26.5 pg (27.0-33.0); Mean Corpuscular Volume 83.7 fL (80.0-98.0); Mean Platelet Volume 11.2 fL (9.4-12.3); Monocytes Absolute Auto 0.5 X10*3/uL (0.1-1.2); Monocytes Percent Auto 9.7 % (2-11); Neutrophils Absolute Auto 3.3 x10*3/uL (2.0-8.3); Platelet Count 217 X10*3/uL (160-400); Red Blood Count 3.93 X10*6/uL (4.20-5.50); Red Cell Distribution Width 16.4 % (11.0-16.0); White Blood Count 5.1 X10*3/uL (4.8-10.8)
[2023-04-03 16:37] LABS: Albumin Level 3.5 g/dL (3.5-5.0); Anion Gap 13 (12-20); Blood Urea Nitrogen 18 mg/dL (9-16); Calcium 9.2 mg/dL (8.4-10.2); Carbon Dioxide 28 mmol/L (22-29); Chloride 108 mmol/L (96-108); Estimated Glomerular Filt Rate 46; Magnesium 1.8 mg/dL (1.6-2.6); Phosphorus 3.6 mg/dL (2.7-4.5); Potassium 3.5 mmol/L (3.3-5.1); Sodium 145 mmol/L (135-145)
[2023-04-03 16:52] LABS: Vitamin D 25-OH Total 64.7 ng/mL (>30)
[2023-04-03 17:59] LABS: Appearance Urine Clear; Color Urine Yellow; Glucose Urine UA Negative (Negative); Leukocyte Esterase Urine Negative (Negative); Nitrite Urine Negative (Negative); PH 5.5 (5.0-9.0); Specific Gravity - Urine 1.015 (1.005-1.025); Urine Blood Negative (Negative); Urine Ketones Negative (Negative); Urine Protein Negative (Neg-Trace)
[2023-04-03 18:14] LABS: Creatinine Urine 74.12 mg/dL; Microalbum/Creatinine Ratio Ur 12.1 ug/mg cr; Total Protein Urine Random < 7 mg/dL (<12)
[2023-04-07 14:23] LABS: Calcium (PTHI) 9.1 mg/dL (8.6-10.4); PTHI 150 pg/mL (16-77)
== END 2023-04-03 15:01 | disposition home or self-care (01) ==
LOC: HO.LAB 15:00
PROVIDERS: PCP Internal Medicine; Visit Provider Internal Medicine Nephrology
DX: Z13.89 Encounter for screening for other disorder (principal)
CPT/HCPCS: 36415; 80051; 81003; 82040; 82043; 82306; 82310; 82565; 83735; 83970; 84100; 84156; 84520; 85025

== ENCOUNTER 2023-05-27 20:40 | Inpatient (IN) | payer MEDICARE, BC, SELFPAY ==
--- NOTE | ~2023-05-27 | CT_ITS ---
EXAMINATION: CT ABDOMEN AND PELVIS WITHOUT IV CONTRAST CLINICAL INFORMATION: Abdominal pain and nausea COMPARISON: CT abdomen/pelvis 06/02/2023 TECHNIQUE: Multiple axial images were obtained from the superior aspect of the liver through the pubic symphysis without intravenous contrast. Images were evaluated on independent dedicated 3-D workstation and 3-D images were reconstructed with concurrent radiologist supervision and subsequently interpreted. Oral contrast was not administered. This CT examination was performed using dose optimization techniques as appropriate, variously including the following: *Automated exposure control *Adjustment of mA and/or kV according to patient size (this includes techniques or standardized protocols for targeted exams where dose is matched to indication/reason for exam; i.e. extremities or head) *Use of iterative reconstruction technique DLP: 499 mGy-cm FINDINGS: LUNG BASES: Small bilateral pleural effusions, slightly increased in size when compared to study 9 days prior. Redemonstrated irregularly-shaped nodule in the right middle lobe measuring 8 x 25 mm, unchanged since December 2022. CARDIOMEDIASTINUM: The visualized heart is normal in size without pericardial effusion. Urinary calcifications present. LIVER: Homogeneous in attenuation. Normal in size. GALLBLADDER: Surgically absent BILIARY SYSTEM: No intrahepatic or extrahepatic biliary dilation. PANCREAS: Homogeneous in attenuation. SPLEEN: Normal in size. GENITOURINARY: No contour deforming masses. No perinephric fluid collection. No renal calculi. No hydroureteronephrosis. Thickened urinary bladder wall with surrounding fat stranding within the extraperitoneal space. ADRENAL GLANDS: Unremarkable. REPRODUCTIVE: Uterus and and bilateral adnexa are unremarkable. GASTROINTESTINAL: The visualized alimentary tract is normal in course. No evidence of obstruction. APPENDIX: The appendix is seen in its entirety and is unremarkable. PERITONEUM: No pneumoperitoneum. No intra-abdominal fluid collection. Mild extraperitoneal fat stranding. VASCULATURE: Aortic atherosclerotic calcifications. No aneurysm. LYMPH NODES: No pathologically enlarged abdominal or pelvic lymph nodes. SOFT TISSUES/MUSCULOSKELETAL: Bones are osteopenic. Subcutaneous granulomas within bilateral gluteus muscles. CT/CT abdomen pelvis wo IV con IMPRESSION: Interval resolution of the previously seen bilateral hydroureteronephrosis. However, in the interval, there is circumferential thickening of the urinary bladder with significant fat stranding localized to the extraperitoneal, which can be seen in the setting of cystitis. Small bilateral pleural effusions. Stable right middle lobe not irregular nodule measuring 8 x 25 mm. Recommend PET/CT for further evaluation. Fleischner guidelines were followed.
--- NOTE | ~2023-05-27 | XR_ITS ---
EXAMINATION: XR ELBOW, LEFT CLINICAL INFORMATION: Fall, pain. COMPARISON: None available. TECHNIQUE: Three views of the left elbow. FINDINGS: Soft tissue thickening along the posterior surface of the elbow with a few punctate radiodensities on the lateral view that could represent foreign bodies. Small anterior joint effusion. Subtle cortical irregularity and focal lucency along the anterior aspect of the coronoid process of the proximal ulna. XR/XR elbow LT min 3V IMPRESSION: 1. Equivocal nondisplaced fracture of the coronoid process of the proximal ulna. Correlate with point tenderness. 2. Small anterior joint effusion. 3. Punctate radiodensities along the posterior surface of the elbow could represent foreign bodies.
--- NOTE | ~2023-05-27 | US_ITS ---
EXAMINATION: US RETROPERITONEAL LIMITED (RENAL ONLY) CLINICAL INFORMATION: Acute kidney injury. COMPARISON: Renal ultrasound 01/14/2023. TECHNIQUE: Real-time imaging of the kidneys. FINDINGS: RIGHT KIDNEY: 8.5 x 5.3 x 5.1 cm (SAG x AP x TRV). The kidney is normal in size, contour, and echogenicity. Renal cortical thickness is normal. No renal calculi or focal parenchymal lesions. Moderate to severe hydronephrosis. LEFT KIDNEY: 10 x 5.8 x 4.9 cm (SAG x AP x TRV). The kidney is normal in size, contour, and echogenicity. Renal cortical thickness is normal. No renal calculi or focal parenchymal lesions. Moderate to severe hydronephrosis. US/US renal BI IMPRESSION: Nonspecific bilateral moderate to severe hydronephrosis, correlation with CT abdomen/pelvis or MRI could be obtained as clinically indicated.
--- NOTE | ~2023-05-27 | CT_ITS ---
EXAMINATION: CT ABDOMEN AND PELVIS WITHOUT CONTRAST CLINICAL INFORMATION: Abdominal pain, nausea and vomiting COMPARISON: Renal ultrasound 05/30/2023 and CTA of the abdomen and pelvis March 2021 TECHNIQUE: Multidetector volumetric imaging was performed from the superior aspect of the liver through the pubic symphysis. Sagittal and coronal reformatted images were obtained on the technologist's workstation. This CT examination was performed using dose optimization techniques as appropriate, variously including the following: *Automated exposure control *Adjustment of mA and/or kV according to patient size (this includes techniques or standardized protocols for targeted exams where dose is matched to indication/reason for exam; i.e. extremities or head) *Use of iterative reconstruction technique DLP: 433 mGy-cm FINDINGS: LUNG BASES: There are small bilateral pleural effusions. There is an irregularly-shaped nodule in the right middle lobe measuring 0.8 x 2.5 cm axial image 4 series 3. This is new from previous abdominal and pelvic CTA March 2021. This does not appear appreciably changed from more recent chest CT December 2022. LIVER, GALLBLADDER, AND BILIARY TREE: The liver is normal in size, shape, and attenuation. No focal hepatic lesion or biliary ductal dilatation is present. The gallbladder has been removed. PANCREAS: Unremarkable. SPLEEN: Unremarkable. ADRENAL GLANDS: Unremarkable. KIDNEYS AND URETERS: Severe bilateral hydronephrosis and ureteral dilatation down to the bladder. No stone seen. BLADDER: The bladder is very distended. The bladder wall is slightly trabeculated. No mass or stone is seen. GASTROINTESTINAL TRACT: There is question of mild wall thickening of the distal colon and rectum. There is some stranding of the fat in the presacral space. The small and large bowel are otherwise unremarkable. The appendix is not seen. ABDOMINAL WALL: Small umbilical hernia containing fat. LYMPH NODES: Normal. VASCULAR: Severe atherosclerotic disease. PELVIC VISCERA: Unremarkable. OSSEOUS STRUCTURES: Degenerative changes of the spine and hip joints. CT/CT abdomen pelvis wo IV con IMPRESSION: Severe bilateral hydronephrosis and ureteral dilatation down to the bladder. The bladder is very full. Bladder outlet obstruction should be considered. 0.8 x 2.5 cm right middle lobe nodule. This is similar to chest CT scan December 2022 and new from lung windows from abdominal and pelvic CTA March 2021. Appearance is worrisome for neoplasm. PET/CT scan or tissue sampling should be considered. Severe atherosclerotic disease. Question mild wall thickening of the distal colon and rectum and small amount of fluid or fat stranding in the presacral space. Fleischner guidelines were followed.
--- NOTE | ~2023-05-27 | CT_ITS ---
EXAMINATION: CT HIP WITHOUT CONTRAST, LEFT CLINICAL INFORMATION: Fall, ecchymosis. COMPARISON: Radiograph of the left femur 01/10/2020. TECHNIQUE: Multidetector volumetric imaging was obtained through the left hip without contrast material. Multiplanar reformatted images were submitted in coronal and sagittal planes. This CT examination was performed using dose optimization techniques as appropriate, variously including the following: *Automated exposure control *Adjustment of mA and/or kV according to patient size (this includes techniques or standardized protocols for targeted exams where dose is matched to indication/reason for exam; i.e. extremities or head) *Use of iterative reconstruction technique DLP: 162 mGy-cm FINDINGS: No fractures or subluxation. Moderate superolateral joint space narrowing with subcortical sclerosis and bony productive changes in the left hip suggesting degenerative osteophyte arthritis. No aggressive appearing focal osseous lesions. Soft tissue thickening, stranding and free fluid in the left lateral proximal thigh axial image 155 series 4. Evaluation of active bleeding/extravasation is nondiagnostic in the absence of IV contrast. Mild diffuse lower extremity subcutaneous haziness and skin thickening suggesting edema. Extensive vascular calcifications. Left femoral stent graft, incompletely characterized in the absence of IV contrast Calcifications abutting the anterior musculature of the mid thigh axial image 130 series 2, possibly sequela of prior injury. CT/CT hip LT wo IV con IMPRESSION: 1. No acute fractures or malalignment. 2. Soft tissue thickening, stranding and free fluid in the left lateral proximal thigh, possibly related with a hematoma in the setting of trauma. Evaluation of active bleeding/extravasation is nondiagnostic in the absence of IV contrast. 3. Mild diffuse lower extremity subcutaneous haziness and skin thickening suggesting edema. 4. Left femoral stent graft, incompletely characterized in the absence of IV contrast.
--- NOTE | ~2023-05-27 | CT_ITS ---
EXAMINATION: NONCONTRAST HEAD CT NONCONTRAST CERVICAL SPINE CT INDICATION INFORMATION: Fall, on Eliquis. COMPARISON: MRI 05/29/2018 TECHNIQUE: Separate noncontrast CT examinations of the head and cervical spine were performed. Coronal and sagittal images were created for each examination at the technologist workstation. This CT examination was performed using dose optimization techniques as appropriate, variously including the following: *Automated exposure control *Adjustment of mA and/or kV according to patient size (this includes techniques or standardized protocols for targeted exams where dose is matched to indication/reason for exam; i.e. extremities or head) *Use of iterative reconstruction technique DLP: 798 mGy-cm FINDINGS: Head: There is no evidence of acute intracranial hemorrhage or territorial infarction. No abnormal mass effect or midline shift is seen. [place] to white matter differentiation is well preserved. No extra-axial fluid collections are identified. No hydrocephalus. Proportional prominence of the ventricles and sulcal spaces is consistent with moderate volume loss. Patchy periventricular and deep white matter hypoattenuation is consistent with moderate small vessel ischemic changes. No acute osseous or soft tissue abnormality. The mastoid air cells and visualized portions of the paranasal sinuses are well aerated. Cervical spine: There is anatomic alignment of the vertebral bodies and posterior elements. The atlantoaxial and atlantooccipital articulations are intact. Vertebral body heights are maintained. There is multilevel intervertebral disc space narrowing with endplate osteophyte formation and facet arthropathy. No evidence of acute fracture. No prevertebral soft tissue swelling. Mild paraseptal emphysema at the lung apices. The thyroid gland is unremarkable. CT/CT cervical spine wo IV con IMPRESSION: 1. No acute intracranial finding. Chronic volume loss with small vessel ischemic change. 2. No acute fracture or malalignment of the cervical spine. Mild degenerative changes.
--- NOTE | ~2023-05-27 | XR_ITS ---
EXAMINATION: XR CHEST CLINICAL INFORMATION: Shortness of breath. COMPARISON: CT chest 01/13/2023. Chest radiograph 01/13/2023. TECHNIQUE: Frontal view of the chest was obtained. FINDINGS: Stable prominence of the cardiomediastinal silhouette. Redemonstration of a masslike opacity projecting over the right middle/lower lung, better characterized on prior CT from 01/13/2023. No new focal airspace opacity, pleural effusion or pneumothorax. Stable asymmetric lucency of the right lateral costophrenic angle. No acute osseous findings. XR/XR chest 1V IMPRESSION: 1. Redemonstration of a masslike opacity projecting over the right middle/lower lung, better characterized on prior CT from 01/13/2023. Underlying malignancy is not excluded and further valuation with PET/CT is recommended. 2. No new focal airspace opacity, pleural effusion or pneumothorax. 3. Stable asymmetric lucency of the right lateral costophrenic angle.
[2023-05-27 20:49] VITALS: BP 184/104; PULSE 18; O2SAT 94
[2023-05-27 21:04] VITALS: BP 155/96; PULSE 90; RESP 16; TEMP 36.4; O2SAT 95; BMI 24.7
--- NOTE | 2023-05-27 22:09 | ECG_ITS ---
Test Reason : SOB Blood Pressure : / mmHG Vent. Rate : 092 BPM Atrial Rate : 000 BPM P-R Int : 000 ms QRS Dur : 104 ms QT Int : 410 ms P-R-T Axes : 000 035 185 degrees QTc Int : [address] & T wave abnormality, consider inferolateral ischemia Prolonged QT Abnormal ECG When compared with ECG of 13-JAN-2023 18:13, Atrial fibrillation has replaced Sinus rhythm Vent. rate has increased BY 32 BPM Referred By: Maura Cruz Electronically Signed By:GARFIELD KNIGHT
--- NOTE | 2023-05-27 22:13 | ED.GENADULT ---
HPI - General Adult General Chief complaint: Fall Stated complaint: mechanical fall, lac R elbow, Afib,-LOC Time Seen by Provider: 05/27/23 21:25 Source: patient Mode of arrival: EMS Limitations: no limitations History of Present Illness HPI narrative: patient comes to the emergency room complaining of a fall. Patient states that she was getting out of her car, patient was feeling very short of breath and landed on the floor. Patient states that the shortness of breath started getting significantly worse over last 2 weeks, when patient is at rest she has no shortness of breath only with minimal exertion she gets very short of breath. Today, when patient fell, she does not know if she hit her head but was awake the whole time, did not lose consciousness. Patient on Eliquis. Patient has a very uneven large and deep laceration to the left elbow. Patient also complaining of left-sided hip pain. Related Data Home Medications Medication Instructions Recorded Confirmed interferon beta-1a 30 mcg/0.5 mL 30 mcg IM TU 10/03/20 04/03/23 intramuscular pen kit (Avonex) paroxetine HCl 40 mg tablet 40 mg PO BEDTIME 10/03/20 04/03/23 cholecalciferol (vitamin D3) 25 25 mcg PO DAILY 12/20/20 04/03/23 mcg (1,000 unit) tablet (Vitamin D3) cyanocobalamin (vitamin B-12) 1,000 mcg PO DAILY 12/20/20 04/03/23 1,000 mcg tablet (Vitamin B-12) furosemide 20 mg tablet 20 mg PO DAILY 05/15/21 04/03/23 diphenoxylate-atropine 2.5 1 tab PO DAILY PRN Diarrhea 01/07/22 02/25/23 mg-0.025 mg tablet melatonin 10 mg tablet 10 mg PO BEDTIME PRN Insomnia 01/13/23 04/03/23 Previous Rx's Medication Instructions Recorded apixaban 5 mg tablet (Eliquis) 5 mg PO BID #180 tabs 11/28/22 ferrous sulfate 325 mg (65 mg 325 mg PO DAILY #90 tabs 01/02/23 iron) tablet atorvastatin 80 mg tablet 80 mg PO DAILY #90 tabs 01/19/23 levothyroxine 50 mcg tablet 50 mcg PO DAILY #60 tabs 04/05/23 (Synthroid) clopidogrel 75 mg tablet 75 mg PO DAILY #90 tabs 04/24/23 oxybutynin chloride 5 mg tablet 5 mg PO BID #180 tabs 04/26/23 metoprolol succinate 50 mg 50 mg PO DAILY #180 tabs 04/28/23 tablet,extended release 24 hr albuterol sulfate 90 mcg/actuation 2 puff inhalation Q4-6H PRN 05/24/23 aerosol inhaler shortness of breath or wheezing 30 days #8.5 grams fluticasone 113 mcg-salmeterol 14 1 inh inhalation Q12H copd 30 days 05/24/23 mcg/actuation breath activated #1 ea powdr omeprazole 20 mg capsule,delayed 20 mg PO QAM #90 caps 05/25/23 release Allergies Allergy/AdvReac Type Severity Reaction Status Date / Time codeine [Codeine] AdvReac Mild vomiting Verified 05/27/23 21:02 Review of Systems Review of Systems: Constitutional : No Weight loss, No Fever, No Chills, No Night Sweats, No Fatigue, No Malaise ENT/Mouth : No Hearing loss, No Ear Pain, No Nasal Congestion, No Sinus Pain, No Hoarseness, No sore throat, No Rhinorrhea, No Swallowing Difficulty Eyes: No Eye Pain, No Swelling, No Redness, No Foreign Body, No Discharge, No Vision Changes Cardiovascular : No Chest Pain, complaining of dyspnea on exertion, no orthopnea, no palpitations Respiratory : No Cough, No Sputum, No Wheezing, No Smoke Exposure, complaining of Dyspnea Gastrointestinal : No Nausea, No Vomiting, No Diarrhea, No Constipation, No abdominal Pain, No Hematochezia, No Melena Genitourinary : no irregular bleeding, No Dysuria, No Urinary Frequency, No Hematuria, No Urinary Incontinence, No Urgency, No Flank Pain, No Urinary Flow Changes, No Hesitancy Musculoskeletal : complaining of left hip pain, No Myalgias, No Joint Swelling Skin : complaining of a large laceration to the left elbow Neuro : No Weakness, No Numbness, No Paresthesias, No Loss of Consciousness, No Dizziness, No Headache Psych : No Anxiety/Panic, No Depression, No SI/HI/AH/VH, No Social Issues, Heme/Lymph: No Bruising, No Bleeding,No Lymphadenopathy Endocrine : No Polyuria, No Polydipsia, No Temperature Intolerance [facility] Past Medical History Medical History Acute on chronic systolic (congestive) heart failure Asymmetric blood pressures Atherosclerotic cardiovascular disease Atrial fibrillation with rapid ventricular response Bacteremia CAD (coronary artery disease) Cardiomyopathy CHF (congestive heart failure) COPD (chronic obstructive pulmonary disease) Dyspnea on effort Essential hypertension Left renal artery stenosis Multiple sclerosis PAF (paroxysmal atrial fibrillation) Peripheral arterial occlusive disease Personal history of nicotine dependence Pulmonary nodules Surgical History History of cholecystectomy (~02/2009) History of colonoscopy History of endoscopy History of heart artery stent (~2018) S/P cardiac cath (~12/2020) S/P insertion of iliac artery stent (~02/2019) Status post angioplasty with stent (~09/2018) Family History Family History Father No problems noted. Mother No problems noted. Brother Diabetes Social History Social History Household Members: None Housing: House Are you a primary care transitions manager to a significant other at home: No Do you presently have visiting nurse or other home services: No Alcohol intake: never Patient Tobacco Use Status: Former Tobacco user Quit Date: 2017 Tobacco use type: Cigarette e-Cigarette/Vaping Use: Never Used Second Hand Smoke Exposure: No Advance Directives: Yes Advance Directives on File: Yes Advance Directives Date on File: 12/27/20 service: No Current occupational status: retired Cognitive needs: Yes (cane) Hearing needs: No Vision needs: Yes (reading glasses) Physical Exam ED Vital Signs: Vital Signs - 24 hr 05/27/23 21:04 05/27/23 22:37 05/28/23 00:27 Temperature 97.5 F 97.8 F Pulse Rate 90 87 Respiratory Rate 16 14 20 Blood Pressure 155/96 H 147/105 H Pulse Oximetry 95 95 Oxygen Delivery Method Room Air Room Air 05/28/23 00:25 Temperature Pulse Rate 109 H Respiratory Rate 20 Blood Pressure 152/80 H Pulse Oximetry 100 Oxygen Delivery Method Room Air BMI result Body Mass Index 24.7 Const Other: Appearance: Alert. Oriented X3. No acute distress. Eyes: Pupils equal, round and reactive to light. ENT: Pharynx normal. Neck: Normal inspection. Neck supple. No lymph nodes noted. No crepitus CVS: Normal heart rate and rhythm. Pulses normal. Normal S1 and S2 Respiratory: No respiratory distress. Breath sounds normal. No Wheezing. No rales Abdomen: Soft and nontender. No rigidity. No distention. Skin: patient has multiple skin abrasions lacerations especially on the left elbow. well laceration is approximately 3 cm, 1 cm deep, actively bleeding, a large amount of debris was removed. Also patient has 2 large skin tears and flaps, very uneven injury. Extremities: No lower extremity edema. No Lacerations. No Rash . Patient has a large hematoma on the left hip. Patient able to flex and extend the hip. Neuro: Oriented X 3. No motor deficit. No sensory deficit. Moving all extremities. No slurred speech. CN 2 through 12 grossly intact Psych: calm, cooperative, normal affect Course Course Course Narrative: - all Of patient's labs are pending - images pending Medications Administered Discontinued Medications Generic Name Dose Route Start Last Admin Trade Name Leo PRN Reason Stop Dose Admin Cefepime HCl 2 gm/ Sodium 50 mls @ 100 mls/hr 05/28/23 00:15 05/28/23 01:16 Chloride IV 05/28/23 00:44 Infused ONCE ONE Infusion Morphine Sulfate 1 mg 05/28/23 00:12 05/28/23 00:27 Morphine Sulfate 2 Mg/Ml Cartridge IVPUSH 05/28/23 00:13 1 mg ONCE ONE Administration Protocol Ondansetron HCl 4 mg 05/28/23 00:12 05/28/23 00:27 Ondansetron Hcl 4 Mg/2 Ml Vial IVPUSH 05/28/23 00:13 4 mg ONCE ONE Administration Medical Decision Making Medical Decision Making [facility] Narrative: -my interpretation of a x-ray of the elbow: Possible fracture of the coronoid process of the proximal ulna. patient has pain all over the elbow, we will treated as fracture. Patient had a laceration in the elbow, we will treat this as an open fracture. Patient receiving IV antibiotics, cefepime IV. We will work on an alternative splint to leave the air with the stitches exposed, patient will need a sling as well -my interpretation a head CT: No intracranial bleed patient's BNP is 1462, chest x-ray my interpretation, no overt pulmonary edema. However, there is a right middle lobe opacity which was visualized since December of [address] scan. This was thought to be pneumonia, however it is still present although it has been 5 months. - Patient was ambulated, only with sitting up and standing up, patient was reassured of breath, patient's oxygen saturation dropped to 88%. -patient given IV Lasix -discussed the patient with Dr. Jones, pt being admitted Differential Diagnosis Differential Diagnoses: The differential diagnosis associated with the presentation includes (Pneumonia, CHF exacerbation, bronchitis) Admission/Observation Consideration of admission/observation: Escalation of care including admission/observation considered Consult Healthcare Provider Management of the patient was discussed with: Hospitalist Lab Data [facility] Lab Attestation statement: I reviewed the patient's lab results. 05/27/23 22:33 05/27/23 22:33 Labs: Lab Results 05/27/23 05/27/23 05/27/23 Range/Units 22:33 22:33 22:33 WBC 7.1 (4.8-10.8) X10*3/uL RBC 4.33 (4.20-5.50) X10*6/uL Hgb 11.3 L (12.0-16.0) g/dl Hct 35.3 L (37.0-47.0) % MCV 81.5 (80.0-98.0) fL MCH 26.1 L (27.0-33.0) pg MCHC 32.0 (31.0-35.0) g/dl RDW 14.5 (11.0-16.0) % Plt Count 221 (160-400) X10*3/uL MPV 10.0 (9.4-12.3) fL Immature Gran % (Auto) 0.4 (0.0-0.4) % Neut % (Auto) 78.6 H (45-73) % Lymph % (Auto) 15.4 L (20-40) % [place] % (Auto) 3.6 (2-11) % Eos % (Auto) 1.4 (0-4) % Baso % (Auto) 0.6 (0-2) % Lymph # (Auto) 1.1 L (1.2-4.9) X10*3/uL [place] # (Auto) 0.3 (0.1-1.2) X10*3/uL Eos # (Auto) 0.1 (0.0-0.4) X10*3/uL Baso # (Auto) 0.0 (0.0-0.2) X10*3/uL Abs Immat Gran (auto) 0.03 (0.00-0.03) X10*3/uL Absolute Neuts (auto) 5.6 (2.0-8.3) x10*3/uL Absolute Nucleated RBC 0.000 (0.0-0.012) X10*3/uL Nucleated RBC % (auto) 0.0 (0.0-0.2) /100WBC VBG pH (7.32-7.43) VBG pCO2 mmHg VBG pO2 mmHg VBG HCO3 (22-26) mmol/L VBG O2 Saturation % VBG Base Excess mmol/L Sodium 144 (135-145) mmol/L Potassium 3.9 (3.3-5.1) mmol/L Chloride 106 (96-108) mmol/L Carbon Dioxide 24 (22-29) mmol/L Anion Gap 18 (12-20) BUN 21 H (9-16) mg/dL Creatinine 1.36 (0.5-1.4) mg/dL Estim Creat Clear Calc 36.5 Estimated GFR 39 Random Glucose 91 (60-115) mg/dL Lactic Acid (0.5-2.0) mmol/L Lactic Acid F/U @ 2Hr (0.5-2.0) mmol/L Calcium 9.5 (8.4-10.2) mg/dL Total Bilirubin 0.5 (0.0-1.0) mg/dL Direct Bilirubin 0.2 (0.0-0.5) mg/dL AST 22 (5-31) U/L ALT 16 (0-31) U/L Alkaline Phosphatase 100 (39-117) U/L Troponin I High Sens (<3.5-17.0) ng/L B-Natriuretic Peptide (<100) pg/mL Total Protein 6.5 (6.5-8.0) g/dL Albumin 3.4 L (3.5-5.0) g/dL COVID-19 (JULIO) Negative (Negative) COVID-19 Clin Com See Note 05/27/23 05/27/23 05/27/23 Range/Units 22:33 22:33 22:33 WBC (4.8-10.8) X10*3/uL RBC (4.20-5.50) X10*6/uL Hgb (12.0-16.0) g/dl Hct (37.0-47.0) % MCV (80.0-98.0) fL MCH (27.0-33.0) pg MCHC (31.0-35.0) g/dl RDW (11.0-16.0) % Plt Count (160-400) X10*3/uL MPV (9.4-12.3) fL Immature Gran % (Auto) (0.0-0.4) % Neut % (Auto) (45-73) % Lymph % (Auto) (20-40) % [place] % (Auto) (2-11) % Eos % (Auto) (0-4) % Baso % (Auto) (0-2) % Lymph # (Auto) (1.2-4.9) X10*3/uL [place] # (Auto) (0.1-1.2) X10*3/uL Eos # (Auto) (0.0-0.4) X10*3/uL Baso # (Auto) (0.0-0.2) X10*3/uL Abs Immat Gran (auto) (0.00-0.03) X10*3/uL Absolute Neuts (auto) (2.0-8.3) x10*3/uL Absolute Nucleated RBC (0.0-0.012) X10*3/uL Nucleated RBC % (auto) (0.0-0.2) /100WBC VBG pH (7.32-7.43) VBG pCO2 mmHg VBG pO2 mmHg VBG HCO3 (22-26) mmol/L VBG O2 Saturation % VBG Base Excess mmol/L Sodium (135-145) mmol/L Potassium (3.3-5.1) mmol/L Chloride (96-108) mmol/L Carbon Dioxide (22-29) mmol/L Anion Gap (12-20) BUN (9-16) mg/dL Creatinine (0.5-1.4) mg/dL Estim Creat Clear Calc Estimated GFR Random Glucose (60-115) mg/dL Lactic Acid 2.2 H* (0.5-2.0) mmol/L Lactic Acid F/U @ 2Hr (0.5-2.0) mmol/L Calcium (8.4-10.2) mg/dL Total Bilirubin (0.0-1.0) mg/dL Direct Bilirubin (0.0-0.5) mg/dL AST (5-31) U/L ALT (0-31) U/L Alkaline Phosphatase (39-117) U/L Troponin I High Sens 16.8 (<3.5-17.0) ng/L B-Natriuretic Peptide 1462 H (<100) pg/mL Total Protein (6.5-8.0) g/dL Albumin (3.5-5.0) g/dL COVID-19 (JULIO) (Negative) COVID-19 Clin Com 05/27/23 05/28/23 Range/Units 22:34 01:00 WBC (4.8-10.8) X10*3/uL RBC (4.20-5.50) X10*6/uL Hgb (12.0-16.0) g/dl Hct (37.0-47.0) % MCV (80.0-98.0) fL MCH (27.0-33.0) pg MCHC (31.0-35.0) g/dl RDW (11.0-16.0) % Plt Count (160-400) X10*3/uL MPV (9.4-12.3) fL Immature Gran % (Auto) (0.0-0.4) % Neut % (Auto) (45-73) % Lymph % (Auto) (20-40) % [place] % (Auto) (2-11) % Eos % (Auto) (0-4) % Baso % (Auto) (0-2) % Lymph # (Auto) (1.2-4.9) X10*3/uL [place] # (Auto) (0.1-1.2) X10*3/uL Eos # (Auto) (0.0-0.4) X10*3/uL Baso # (Auto) (0.0-0.2) X10*3/uL Abs Immat Gran (auto) (0.00-0.03) X10*3/uL Absolute Neuts (auto) (2.0-8.3) x10*3/uL Absolute Nucleated RBC (0.0-0.012) X10*3/uL Nucleated RBC % (auto) (0.0-0.2) /100WBC VBG pH 7.43 (7.32-7.43) VBG pCO2 45 mmHg VBG pO2 27 mmHg VBG HCO3 30 H (22-26) mmol/L VBG O2 Saturation 33.0 % VBG Base Excess 5.3 mmol/L Sodium (135-145) mmol/L Potassium (3.3-5.1) mmol/L Chloride (96-108) mmol/L Carbon Dioxide (22-29) mmol/L Anion Gap (12-20) BUN (9-16) mg/dL Creatinine (0.5-1.4) mg/dL Estim Creat Clear Calc Estimated GFR Random Glucose (60-115) mg/dL Lactic Acid (0.5-2.0) mmol/L Lactic Acid F/U @ 2Hr 3.4 H* (0.5-2.0) mmol/L Calcium (8.4-10.2) mg/dL Total Bilirubin (0.0-1.0) mg/dL Direct Bilirubin (0.0-0.5) mg/dL AST (5-31) U/L ALT (0-31) U/L Alkaline Phosphatase (39-117) U/L Troponin I High Sens (<3.5-17.0) ng/L B-Natriuretic Peptide (<100) pg/mL Total Protein (6.5-8.0) g/dL Albumin (3.5-5.0) g/dL COVID-19 (JULIO) (Negative) COVID-19 Clin Com Independent Interpretation I performed an independent interpretation of an: Plain X-Ray and CT Scan Radiology Impression Discussion of test interpretation with radiology: I have reviewed the radiologist's reading. Radiologist Impression: IMPRESSION: 1.? Equivocal nondisplaced fracture of the coronoid process of the proximal ulna. Correlate with point tenderness. 2.? Small anterior joint effusion. 3.? Punctate radiodensities along the posterior surface of the elbow could represent foreign bodies. IMPRESSION: 1.? Redemonstration of a masslike opacity projecting over the right middle/lower lung, better characterized on prior CT from 01/13/2023. Underlying malignancy is not excluded and further valuation with PET/CT is recommended. 2.? No new focal airspace opacity, pleural effusion or pneumothorax. 3.? Stable asymmetric lucency of the right lateral costophrenic angle. FINDINGS: No fractures or subluxation. Moderate superolateral joint space narrowing with subcortical sclerosis and bony productive changes in the left hip suggesting degenerative osteophyte arthritis. No aggressive appearing focal osseous lesions. Soft tissue thickening, stranding and free fluid in the left lateral proximal thigh axial image 155 series 4. Evaluation of active bleeding/extravasation is nondiagnostic in the absence of IV contrast. Mild diffuse lower extremity subcutaneous haziness and skin thickening suggesting edema. Extensive vascular calcifications. Left femoral stent graft, incompletely characterized in the absence of IV contrast Calcifications abutting the anterior musculature of the mid thigh axial image 130 series 2, possibly sequela of prior injury. CT/CT hip LT wo IV con IMPRESSION: 1.? No acute fractures or malalignment. 2.? Soft tissue thickening, stranding and free fluid in the left lateral proximal thigh, possibly related with a hematoma in the setting of trauma. Evaluation of active bleeding/extravasation is nondiagnostic in the absence of IV contrast. 3.? Mild diffuse lower extremity subcutaneous haziness and skin thickening suggesting edema. 4.? Left femoral stent graft, incompletely characterized in the absence of IV contrast. Critical Care Time Critical Care Time Critical Care Time: Yes Total Critical Care Time: 75 Attestation: I have personally provided critical care time. Time includes review of lab data, radiology results, discussion with consultants, and monitoring for potential decompensation. Intervention performed as documented. Discharge Plan Discharge Clinical Impression: Acute exacerbation of CHF (congestive heart failure), Open olecranon fracture Patient Disposition: Admitted As Inpatient Prescriptions: No Action Eliquis 5 mg tablet 5 mg PO BID Qty: 180 2RF ferrous sulfate 325 mg (65 mg iron) tablet 325 mg PO DAILY Qty: 90 1RF atorvastatin 80 mg tablet 80 mg PO DAILY Qty: 90 1RF levothyroxine [Synthroid] 50 mcg tablet 50 mcg PO DAILY Qty: 60 0RF clopidogrel 75 mg tablet 75 mg PO DAILY Qty: 90 3RF oxybutynin chloride 5 mg tablet 5 mg PO BID Qty: 180 1RF metoprolol succinate 50 mg tablet extended release 24 hr 50 mg PO DAILY Qty: 180 0RF fluticasone propion-salmeterol 113-14 mcg/actuation aerosol powdr breath activated 1 inh inhalation Q12H 30 Days Qty: 1 3RF albuterol sulfate 90 mcg/actuation HFA aerosol inhaler 2 puff inhalation Q4-6H PRN (Reason: shortness of breath or wheezing) 30 Days Qty: 8.5 2RF omeprazole 20 mg capsule,delayed release(DR/EC) 20 mg PO QAM Qty: 90 1RF cyanocobalamin (vitamin B-12) [Vitamin B-12] 1,000 mcg Tablet 1,000 mcg PO DAILY cholecalciferol (vitamin D3) [Vitamin D3] 25 mcg (1,000 unit) Tablet 25 mcg PO DAILY melatonin 10 mg Tablet 10 mg PO BEDTIME PRN (Reason: Insomnia) furosemide 20 mg tablet 20 mg PO DAILY Hold Instructions: on hold for SUSAN. recheck BMP early next week and resume as renal function allows paroxetine HCl 40 mg tablet 40 mg PO BEDTIME Avonex 30 mcg/0.5 mL pen injector kit 30 mcg IM TU diphenoxylate-atropine 2.5-0.025 mg tablet 1 tab PO DAILY PRN (Reason: Diarrhea)
[2023-05-27 22:37] VITALS: BP 147/105; PULSE 87; RESP 14; TEMP 36.6; O2SAT 95
[2023-05-27 22:37] LABS: MANUAL DIFF FLAG NO
[2023-05-27 22:39] LABS: Basophils Percent Auto 0.6 % (0-2); Eosinophils Absolute Auto 0.1 X10*3/uL (0.0-0.4); Eosinophils Percent Auto 1.4 % (0-4); Hematocrit 35.3 % (37.0-47.0); Hemoglobin 11.3 g/dl (12.0-16.0); Imm Gran Abs Auto 0.03 X10*3/uL (0.00-0.03); Imm Gran Pct Auto 0.4 % (0.0-0.4); Lymphocytes Absolute Auto 1.1 X10*3/uL (1.2-4.9); Lymphocytes Percent Auto 15.4 % (20-40); Mean Corpuscular Hemoglobin 26.1 pg (27.0-33.0); Mean Corpuscular Volume 81.5 fL (80.0-98.0); Monocytes Absolute Auto 0.3 X10*3/uL (0.1-1.2); Monocytes Percent Auto 3.6 % (2-11); Neutrophils Absolute Auto 5.6 x10*3/uL (2.0-8.3); Neutrophils Percent Auto 78.6 % (45-73); Platelet Count 221 X10*3/uL (160-400); Red Blood Count 4.33 X10*6/uL (4.20-5.50); Red Cell Distribution Width 14.5 % (11.0-16.0); White Blood Count 7.1 X10*3/uL (4.8-10.8)
[2023-05-27 22:40] LABS: Venous Blood Gas Refer to POC result
[2023-05-27 22:42] LABS: VBG Base Excess 5.3 mmol/L; VBG HCO3 30 mmol/L (22-26); VBG pCO2 45 mmHg; VBG pH 7.43 (7.32-7.43); VBG pO2 27 mmHg
[2023-05-27 22:52] LABS: COVID-19 Test Negative (Negative); IDNOW Serial# 6674DD1D
[2023-05-27 22:54] LABS: Lactic Acid 2.2 mmol/L (0.5-2.0)
[2023-05-27 22:55] LABS: Alanine Aminotransferase 16 U/L (0-31); Albumin Level 3.4 g/dL (3.5-5.0); Alkaline Phosphatase 100 U/L (39-117); Anion Gap 18 (12-20); Aspartate Amino Transferase 22 U/L (5-31); Bilirubin Direct 0.2 mg/dL (0.0-0.5); Bilirubin Total 0.5 mg/dL (0.0-1.0); Blood Urea Nitrogen 21 mg/dL (9-16); Calcium 9.5 mg/dL (8.4-10.2); Carbon Dioxide 24 mmol/L (22-29); Chloride 106 mmol/L (96-108); Creatinine Clr Calc Pharmacy 36.5; Estimated Glomerular Filt Rate 39; Glucose Random 91 mg/dL (60-115); Potassium 3.9 mmol/L (3.3-5.1); Sodium 144 mmol/L (135-145); Total Protein 6.5 g/dL (6.5-8.0)
[2023-05-27 22:59] LABS: B Type Natriuretic Peptide 1462 pg/mL (<100)
[2023-05-27 23:02] LABS: Troponin-I High Sensitivity 16.8 ng/L (<3.5-17.0)
[2023-05-28] VITALS (8 sets, daily range): BP systolic 106–152; BP diastolic 53–99; PULSE 84–113; RESP 15–20; TEMP 36.1–37.1; O2SAT 93–100
[2023-05-28] MEDS: ondansetron HCL 4 MG/2 ML VIAL IVPUSH (00:27)
[2023-05-28] MEDS: Morphine Sulfate 2 MG/ML CARTRIDGE 1 MG IVPUSH (00:27)
[2023-05-28 00:35] LABS: Reflex Lactate? Lactic Acid Added
[2023-05-28] MEDS: cefEPime HCl 2 GM in 0.9 % Sodium Chloride 50 ML IV (00:46)
[2023-05-28 01:18] LABS: ~Lactic Acid-LAB USE ONLY 3.4 mmol/L (0.5-2.0)
[2023-05-28 03:02] LABS: Reflex Lactate? 2 Y
[2023-05-28] MEDS: Furosemide 40 MG/4 ML VIAL IVPUSH (04:29)
[2023-05-28 04:37] LABS: ~Lactic Acid-LAB USE ONLY 3.5 mmol/L (0.5-2.0)
--- NOTE | 2023-05-28 04:54 | P.HPHOSP_ITS ---
History of Present Illness Date of Service: 05/28/23 Chief Complaint: Dyspnea This is a 67-year-old female with pertinent history of multiple sclerosis, COPD not on home oxygen, paroxysmal atrial fibrillation on Eliquis, essential hypertension, coronary artery disease, hypothyroidism, congestive heart failure with preserved ejection fraction who presents to the emergency department for evaluation dyspnea. Patient states that over the last 2 weeks, she is having progressive dyspnea which is worse with exertion. Also admits orthopnea. Does have lower extremity leg swelling. Patient states that she was getting out of car on the day of presentation, she got short of breath and fell. Patient denies fever, chills, cough, chest discomfort, palpitations, abdominal pain, changes in urinary or bowel habits. In the emergency department, imaging with nondisplaced fracture of coronoid process of ulna. BNP was elevated Review of Systems Constitutional: Constitutional: Reports fatigue Cardiovascular: Cardiovascular: Reports dyspnea on exertion and Reports orthopnea Respiratory: Respiratory: Reports dyspnea on exertion Gastrointestinal: Gastrointestinal: Reports no additional gastrointestinal complaints Genitourinary: Genitourinary: Reports no additional female genitourinary complaints Endocrine: Endocrine: Reports fatigue [facility] Medical History Acute on chronic systolic (congestive) heart failure Asymmetric blood pressures Atherosclerotic cardiovascular disease Atrial fibrillation with rapid ventricular response Bacteremia CAD (coronary artery disease) Cardiomyopathy CHF (congestive heart failure) COPD (chronic obstructive pulmonary disease) Dyspnea on effort Essential hypertension Left renal artery stenosis Multiple sclerosis PAF (paroxysmal atrial fibrillation) Peripheral arterial occlusive disease Personal history of nicotine dependence Pulmonary nodules Family History Father No problems noted. Mother No problems noted. Brother Diabetes Surgical History History of cholecystectomy (~02/2009) History of colonoscopy History of endoscopy History of heart artery stent (~2018) S/P cardiac cath (~12/2020) S/P insertion of iliac artery stent (~02/2019) Status post angioplasty with stent (~09/2018) Social History Household Members: None Housing: House Are you a primary critical care rn to a significant other at home: No Do you presently have visiting nurse or other home services: No Alcohol intake: never Patient Tobacco Use Status: Former Tobacco user Quit Date: 2017 Tobacco use type: Cigarette e-Cigarette/Vaping Use: Never Used Second Hand Smoke Exposure: No Advance Directives: Yes Advance Directives on File: Yes Advance Directives Date on File: 12/27/20 service: No Current occupational status: retired Cognitive needs: Yes (cane) Hearing needs: No Vision needs: Yes (reading glasses) Meds Allergies Allergy/AdvReac Type Severity Reaction Status Date / Time codeine [Codeine] AdvReac Mild vomiting Verified 05/27/23 21:02 Active Medications: Current Medications Pharmacy Consult (Consult Rx Perform Med Rec) 1 each MISCELLANE ONCE PRN PRN Reason: Consult order Home Medications Medication Instructions Recorded Confirmed Last Taken Type interferon beta-1a 30 mcg/0.5 mL 30 mcg IM TU 10/03/20 05/28/23 09/13/21 History intramuscular pen kit (Avonex) paroxetine HCl 40 mg tablet 40 mg PO BEDTIME 10/03/20 05/28/23 09/12/21 History cholecalciferol (vitamin D3) 25 25 mcg PO DAILY 12/20/20 05/28/23 09/13/21 History mcg (1,000 unit) tablet (Vitamin D3) cyanocobalamin (vitamin B-12) 1,000 mcg PO DAILY 12/20/20 05/28/23 09/13/21 History 1,000 mcg tablet (Vitamin B-12) furosemide 20 mg tablet 20 mg PO DAILY 05/15/21 05/28/23 09/13/21 History diphenoxylate-atropine 2.5 1 tab PO DAILY PRN Diarrhea 01/07/22 02/25/23 Unknown History mg-0.025 mg tablet melatonin 10 mg tablet 10 mg PO BEDTIME PRN Insomnia 01/13/23 05/28/23 Unknown History ferrous sulfate 325 mg (65 mg 325 mg PO BEDTIME 05/28/23 05/28/23 Unknown History iron) tablet Physical Exam Vital Signs and Narrative: Vital Signs: Last Vital Signs Temp 98.7 F 05/28/23 04:28 Pulse 96 05/28/23 04:28 Resp 15 05/28/23 04:28 BP 139/66 05/28/23 04:28 Pulse Ox 98 05/28/23 04:28 O2 Del Method Room Air 05/28/23 04:28 BMI result Body Mass Index 24.7 Middle-aged female lying in bed in mild distress Neck supple, no JVD Irregularly irregular, S1-S2 heard Mild crackles at bases Abdomen soft nontender, no guarding, no rigidity Patient is awake, alert and oriented to self, place, time and person ; no focal motor deficit Psych: Normal mood Bilateral pedal edema Results Labs 05/27/23 22:33 05/27/23 22:33 Labs: Laboratory Results - last 24 hr 05/27/23 05/27/23 05/27/23 22:33 22:33 22:33 MCV 81.5 MCH 26.1 L MCHC 32.0 RDW 14.5 Plt Count 221 MPV 10.0 Immature Gran % (Auto) 0.4 Neut % (Auto) 78.6 H Lymph % (Auto) 15.4 L [place] % (Auto) 3.6 Eos % (Auto) 1.4 Baso % (Auto) 0.6 Lymph # (Auto) 1.1 L [place] # (Auto) 0.3 Eos # (Auto) 0.1 Baso # (Auto) 0.0 Abs Immat Gran (auto) 0.03 Absolute Neuts (auto) 5.6 Absolute Nucleated RBC 0.000 Nucleated RBC % (auto) 0.0 VBG pH VBG pCO2 VBG pO2 VBG HCO3 VBG O2 Saturation VBG Base Excess Anion Gap 18 Estim Creat Clear Calc 36.5 Estimated GFR 39 Random Glucose 91 Lactic Acid Lactic Acid F/U @ 2Hr Lactic Acid F/U @ 4Hr Calcium 9.5 Total Bilirubin 0.5 Direct Bilirubin 0.2 AST 22 ALT 16 Alkaline Phosphatase 100 B-Natriuretic Peptide Total Protein 6.5 Albumin 3.4 L COVID-19 (JULIO) Negative COVID-19 Clin Com See Note 05/27/23 05/27/23 05/27/23 22:33 22:33 22:34 MCV MCH MCHC RDW Plt Count MPV Immature Gran % (Auto) Neut % (Auto) Lymph % (Auto) [place] % (Auto) Eos % (Auto) Baso % (Auto) Lymph # (Auto) [place] # (Auto) Eos # (Auto) Baso # (Auto) Abs Immat Gran (auto) Absolute Neuts (auto) Absolute Nucleated RBC Nucleated RBC % (auto) VBG pH 7.43 VBG pCO2 45 VBG pO2 27 VBG HCO3 30 H VBG O2 Saturation 33.0 VBG Base Excess 5.3 Anion Gap Estim Creat Clear Calc Estimated GFR Random Glucose Lactic Acid 2.2 H* Lactic Acid F/U @ 2Hr Lactic Acid F/U @ 4Hr Calcium Total Bilirubin Direct Bilirubin AST ALT Alkaline Phosphatase B-Natriuretic Peptide 1462 H Total Protein Albumin COVID-19 (JULIO) COVID-19 [facility] Com 05/28/23 05/28/23 01:00 04:18 MCV MCH MCHC RDW Plt Count MPV Immature Gran % (Auto) Neut % (Auto) Lymph % (Auto) [place] % (Auto) Eos % (Auto) Baso % (Auto) Lymph # (Auto) [place] # (Auto) Eos # (Auto) Baso # (Auto) Abs Immat Gran (auto) Absolute Neuts (auto) Absolute Nucleated RBC Nucleated RBC % (auto) VBG pH VBG pCO2 VBG pO2 VBG HCO3 VBG O2 Saturation VBG Base Excess Anion Gap Estim Creat Clear Calc Estimated GFR Random Glucose Lactic Acid Lactic Acid F/U @ 2Hr 3.4 H* Lactic Acid F/U @ 4Hr 3.5 H* Calcium Total Bilirubin Direct Bilirubin AST ALT Alkaline Phosphatase B-Natriuretic Peptide Total Protein Albumin COVID-19 (JULIO) COVID-19 Clin [facility] Radiologist's Impressions: Impressions Cervical Spine CT 05/27/23 21:27 IMPRESSION: 1. No acute intracranial finding. Chronic volume loss with small vessel ischemic change. 2. No acute fracture or malalignment of the cervical spine. Mild degenerative changes. Head CT 05/27/23 21:27 IMPRESSION: 1. No acute intracranial finding. Chronic volume loss with small vessel ischemic change. 2. No acute fracture or malalignment of the cervical spine. Mild degenerative changes. Hip CT 05/27/23 22:54 IMPRESSION: 1. No acute fractures or malalignment. 2. Soft tissue thickening, stranding and free fluid in the left lateral proximal thigh, possibly related with a hematoma in the setting of trauma. Evaluation of active bleeding/extravasation is nondiagnostic in the absence of IV contrast. 3. Mild diffuse lower extremity subcutaneous haziness and skin thickening suggesting edema. 4. Left femoral stent graft, incompletely characterized in the absence of IV contrast. Chest X-Ray 05/27/23 22:58 IMPRESSION: 1. Redemonstration of a masslike opacity projecting over the right middle/lower lung, better characterized on prior CT from 01/13/2023. Underlying malignancy is not excluded and further valuation with PET/CT is recommended. 2. No new focal airspace opacity, pleural effusion or pneumothorax. 3. Stable asymmetric lucency of the right lateral costophrenic angle. Elbow X-Ray 05/27/23 22:58 IMPRESSION: 1. Equivocal nondisplaced fracture of the coronoid process of the proximal ulna. Correlate with point tenderness. 2. Small anterior joint effusion. 3. Punctate radiodensities along the posterior surface of the elbow could represent foreign bodies. Assessment and Plan (1) CHF exacerbation: Status: Acute (2) Ulna fracture: Status: Acute Plan This is a 67-year-old female with pertinent history of multiple sclerosis, COPD not on home oxygen, paroxysmal atrial fibrillation on Eliquis, essential hypertension, coronary artery disease, hypothyroidism, congestive heart failure with preserved ejection fraction who presents to the emergency department for evaluation dyspnea. #. Acute respiratory distress, likely due to acute exacerbation of diastolic heart failure. Patient received IV Lasix in the ER. Obtaining echo and co nsulting Cardiology. Strict I's and O's and low-salt diet. May have a component of pulmonary hypertension causing dyspnea #. Non displaced fracture of ulna. Ortho eval #. Paroxysmal atrial fibrillation on Eliquis #. Hypothyroidism on Synthroid #. Mood disorder. Continue home mood stabilizers #. Coronary artery disease. On antiplatelet, beta-allyson and high-intensity statin Med rec pending DVT prophylaxis: Eliquis Full code Time Spent With Patient Time: Total time managing care of this patient today ____ minutes. Quality Stroke Does the patient have a stroke diagnosis?: No VTE Prior VTE?: No VTE Risk Level:: Medical - moderate - high VTE Device Contraindication: Treatment Not Indicated VTE Drug Contraindication: N/A - Med Ordered
--- NOTE | 2023-05-28 05:07 | PC.NURSE ---
Late entry: PT a&ox4, reports pain 10/10 in LE, Doctor Anthony at bedside suturing pt. IV line placed to RFA, Pt medicated per dec, pt reported some effectiveness. Splint and sling applied to LUE, pt ambulated to bathroom with 2 staff assist, pt slow steady gait, pt stated I can't even walk with out getting shortness of breath, I have to stop to catch my breath. SPO2 satting at 89% on RA when ambulating, Dr. Cruz notified. Pt incontinent of urine, purwhick applied, states i just leak. Hematoma noted to left hip. no bruising noted, pt reports tenderness to touch. Skin tear on left pinky noted, dressing applied. wctm
[2023-05-28] MEDS: Acetaminophen 325 MG TABLET 650 MG PO ×2 (05:28→15:57)
[2023-05-28 05:42] LABS: MANUAL DIFF FLAG NO
[2023-05-28 05:44] LABS: Basophils Absolute Auto 0.1 X10*3/uL (0.0-0.2); Basophils Percent Auto 0.6 % (0-2); Eosinophils Percent Auto 0.3 % (0-4); Hematocrit 33.9 % (37.0-47.0); Hemoglobin 10.7 g/dl (12.0-16.0); Imm Gran Abs Auto 0.04 X10*3/uL (0.00-0.03); Imm Gran Pct Auto 0.5 % (0.0-0.4); Lymphocytes Absolute Auto 0.8 X10*3/uL (1.2-4.9); Mean Corpuscular HGB Conc 31.6 g/dl (31.0-35.0); Mean Corpuscular Hemoglobin 25.8 pg (27.0-33.0); Mean Corpuscular Volume 81.9 fL (80.0-98.0); Mean Platelet Volume 10.4 fL (9.4-12.3); Monocytes Absolute Auto 0.5 X10*3/uL (0.1-1.2); Monocytes Percent Auto 5.4 % (2-11); Neutrophils Absolute Auto 7.4 x10*3/uL (2.0-8.3); Neutrophils Percent Auto 84.2 % (45-73); Platelet Count 230 X10*3/uL (160-400); Red Blood Count 4.14 X10*6/uL (4.20-5.50); Red Cell Distribution Width 14.5 % (11.0-16.0); White Blood Count 8.8 X10*3/uL (4.8-10.8)
[2023-05-28 05:58] LABS: Anion Gap 18 (12-20); Blood Urea Nitrogen 23 mg/dL (9-16); Calcium 9.2 mg/dL (8.4-10.2); Carbon Dioxide 21 mmol/L (22-29); Chloride 105 mmol/L (96-108); Creatinine Clr Calc Pharmacy 37.7; Estimated Glomerular Filt Rate 40; Glucose Random 100 mg/dL (60-115); Potassium 3.9 mmol/L (3.3-5.1); Sodium 140 mmol/L (135-145)
--- NOTE | 2023-05-28 07:00 | CA_ITS ---
Transthoracic Echocardiogram Patient (Last, First, Middle): Nai Garcia S Gender: Female Date of : 1955 Age: 67 Procedure Date: 05/28/2023 Procedure Type: Transthoracic Echocardiogram Location: ER Height: 167.64 cm Weight: 69.4 kg BSA: 1.78 m2 Heart Rate: bpm BP: 145 / 90 mmHg Sales Representative Livestock: KRISS Referring MD: Ashish Jones MD Symptoms: CHF Study Quality: Technically Difficult ECG Rhythm: Atrial Fibrillation with slightly rapid rate Conclusions: - The left ventricular systolic function is severely decreased. The visually estimated ejection fraction is between 20-25%. - The basal inferior and basal inferoseptal segments are akinetic. - The left atrium is severely dilated. - No obvious valvular pathology seen on this study. Findings Procedure Information Contrast agent, definity, is being given per protocol without apparent complications. Left Ventricle Normal left ventricular cavity size. The left ventricular systolic function is severely decreased. The visually estimated ejection fraction is between 20-25%. There is severe global hypokinesis. Diastolic function is indeterminate on the basis of available data. There is mild septal asymmetric hypertrophy. Wall Motion Rest Echo Findings The basal inferior and basal inferoseptal segments are akinetic. Right Ventricle Normal right ventricular cavity size. There is moderately decreased right ventricular systolic function. Atria The left atrium is severely dilated. The right atrium is moderately dilated. Aortic Valve The aortic valve was not well visualized. There is no aortic valve stenosis. There is no aortic valve regurgitation. Mitral Valve There is mild mitral annular calcification. There is mild to moderate mitral valve regurgitation. There is no mitral valve stenosis. Pulmonic Valve The pulmonic valve is likely normal. Tricuspid Valve Normal tricuspid valve structure. There is mild tricuspid valve regurgitation. There is no evidence of pulmonary hypertension. Great Vessels The asc aorta is normal in size. Venous The inferior vena cava is normal in size and collapses less than 50% with inspiration. Pericardium/Pleural There is no evidence of pericardial effusion. Prior Study Comparison Changes noted compared to prior study dated: 11/01/2022. Decrease in LVEF. Recommendations, Care & Conclusions No obvious valvular pathology seen on this study. Measurements 2D Linear Measurements IVSd: 1.20 0.6-0.9/0.6-1.0 cm LVIDd: 5.00 3.9-5.3/4.2-5.9 cm LVIDd Index: 2.81 2.4-3.2/2.2-3.1 cm/m2 LVIDs: 4.30 2.0-3.6 cm LVPWd: 1.00 0.7-1.1 cm LA Diam: 4.20 2.7-3.8/3.0-4.0 cm LAIDs Index: 2.36 1.5-2.3 cm/m2 LV Mass: 258.18 67-162/88-224 g LV Mass Index: 145.04 43-95/49-115 g/m2 LVOT Diam: 2.00 3.0+(-)1.3 cm 2D Systolic Function EF 4C: 24.00 >55% EF 2C: 37.20 >55% EF BiP: 29.00 >55% Mitral Valve MV Pk E: 1.05 MV Decel Time: 164.00 E'Lateral: 7.94 E'Medial: 4.35 E/E' Med: 24.10 E/E' Lat: 13.20 PHT: 48.00 MVA PHT: 4.58 Decel [place]: 6.41 Aortic Valve AoV Pk Master: 1.03 AoV Mn Master: 0.78 AoV VTI: 0.15 AoV Pk Grad: 4.00 Aov Mn Grad: 3.00 SHAHRAM Cont.VTI: 2.07 LVOT LVOT Pk Master: 0.73 LVOT Mn Master: 0.49 LVOT VTI: 0.10 LVOT Pk Grad: 2.00 LVOT Mn Grad: 1.00 LVOT Diam: 2.00 LVOT Area: 3.14 Diastolic Function MV Pk E: 1.05 E'Medial: 4.35 E/E' Med: 24.10 E' Laterial: 7.94 E/E' Lat: 13.20 Right Ventricle TAPSE (mm): 12.00 TVS' Master: 7.83 Tricuspid Valve TR Pk Master: 2.39 TR Pk Grad: 23.00 RA Press: 8.00 RVSP: 31.00 Great Vessels Aorta Sinus of Valsalva: 3.20 2.0-3.5 cm Ao Asc: 2.80 2.1-3.4 cm Pulmonary Valve PV Pk Master: 0.79 Peak PV Grad: 2.00 Updated in Other Vendor System with Status of Final John Lizama MD electronically signed on 05/28/2023 3:59:25 PM with status of Final
--- NOTE | 2023-05-28 07:06 | PHA.MEDREC ---
Pharmacy Consult ? Medication Reconciliation Pharmacy has reviewed the medication reconciliation done byRenaN.
--- NOTE | 2023-05-28 07:11 | PC.NURSE ---
Alert and oriented, denies any pain at rest. no sob at rest. Purwick in place draining 200mls of clear yellow urine. Left arm remains with splint and sling. Able to move fingers without difficulty. 96%on RA. afib on monitor.
--- NOTE | 2023-05-28 07:14 | PM.CNOR ---
History of Present Illness HPI Chief complaint: Dyspnea [facility] Past Medical History Medical History Acute on chronic systolic (congestive) heart failure Asymmetric blood pressures Atherosclerotic cardiovascular disease Atrial fibrillation with rapid ventricular response Bacteremia CAD (coronary artery disease) Cardiomyopathy CHF (congestive heart failure) COPD (chronic obstructive pulmonary disease) Dyspnea on effort Essential hypertension Left renal artery stenosis Multiple sclerosis PAF (paroxysmal atrial fibrillation) Peripheral arterial occlusive disease Personal history of nicotine dependence Pulmonary nodules Family History Family History Father No problems noted. Mother No problems noted. Brother Diabetes Surgical History Surgical History History of cholecystectomy (~02/2009) History of colonoscopy History of endoscopy History of heart artery stent (~2018) S/P cardiac cath (~12/2020) S/P insertion of iliac artery stent (~02/2019) Status post angioplasty with stent (~09/2018) Social History Social History Household Members: None Housing: House Are you a primary career technology teacher to a significant other at home: No Do you presently have visiting nurse or other home services: No Alcohol intake: never Patient Tobacco Use Status: Former Tobacco user Quit Date: 2017 Tobacco use type: Cigarette e-Cigarette/Vaping Use: Never Used Second Hand Smoke Exposure: No Advance Directives: Yes Advance Directives on File: Yes Advance Directives Date on File: 12/27/20 service: No Current occupational status: retired Cognitive needs: Yes (cane) Hearing needs: No Vision needs: Yes (reading glasses) Meds Allergies Allergy/AdvReac Type Severity Reaction Status Date / Time codeine [Codeine] AdvReac Mild vomiting Verified 05/27/23 21:02 Active Medications: Current Medications Acetaminophen (Acetaminophen 325 Mg Tablet) 650 mg PO Q6H PRN PRN Reason: Pain, Mild (Pain Scale 1-3) Last Admin: 05/28/23 05:28 Dose: 650 mg Melatonin (Melatonin 3 Mg Tablet) 6 mg PO BEDTIME PRN PRN Reason: Insomnia Ondansetron HCl (Ondansetron Hcl 4 Mg/2 Ml Vial) 4 mg IVPUSH Q8H PRN PRN Reason: Nausea and Vomiting Pharmacy Consult (Consult Rx Perform Med Rec) 1 each MISCELLANE ONCE PRN PRN Reason: Consult order Sodium Chloride (0.9 % Sodium Chloride Flush 3 Ml Syringe) 3 ml IVFLUSH [facility] Home Medications Medication Instructions Recorded Confirmed Last Taken Type interferon beta-1a 30 mcg/0.5 mL 30 mcg IM TU 10/03/20 05/28/23 09/13/21 History intramuscular pen kit (Avonex) paroxetine HCl 40 mg tablet 40 mg PO BEDTIME 10/03/20 05/28/23 09/12/21 History cholecalciferol (vitamin D3) 25 25 mcg PO DAILY 12/20/20 05/28/23 09/13/21 History mcg (1,000 unit) tablet (Vitamin D3) cyanocobalamin (vitamin B-12) 1,000 mcg PO DAILY 12/20/20 05/28/23 09/13/21 History 1,000 mcg tablet (Vitamin B-12) melatonin 10 mg tablet 10 mg PO BEDTIME PRN Insomnia 01/13/23 05/28/23 Unknown History ferrous sulfate 325 mg (65 mg 325 mg PO BEDTIME 05/28/23 05/28/23 Unknown History iron) tablet Physical Exam Vital Signs: Vital Signs: Last Vital Signs Temp 98.2 F 05/28/23 05:50 Pulse 113 H 05/28/23 07:09 Resp 18 05/28/23 07:09 BP 126/75 05/28/23 07:09 Pulse Ox 96 05/28/23 07:09 O2 Del Method Room Air 05/28/23 07:09 BMI result Body Mass Index 24.7 Results Labs 05/28/23 05:20 05/28/23 05:20 Labs: Abnormal lab results 05/27/23 05/27/23 05/27/23 Range/Units 22:33 22:33 22:33 RBC (4.20-5.50) X10*6/uL Hgb 11.3 L (12.0-16.0) g/dl Hct 35.3 L (37.0-47.0) % MCH 26.1 L (27.0-33.0) pg Immature Gran % (Auto) (0.0-0.4) % Neut % (Auto) 78.6 H (45-73) % Lymph % (Auto) 15.4 L (20-40) % Lymph # (Auto) 1.1 L (1.2-4.9) X10*3/uL Abs Immat Gran (auto) (0.00-0.03) X10*3/uL VBG HCO3 (22-26) mmol/L Carbon Dioxide (22-29) mmol/L BUN 21 H (9-16) mg/dL Lactic Acid 2.2 H* (0.5-2.0) mmol/L Lactic Acid F/U @ 2Hr (0.5-2.0) mmol/L Lactic Acid F/U @ 4Hr (0.5-2.0) mmol/L B-Natriuretic Peptide (<100) pg/mL Albumin 3.4 L (3.5-5.0) g/dL 05/27/23 05/27/23 05/28/23 Range/Units 22:33 22:34 01:00 RBC (4.20-5.50) X10*6/uL Hgb (12.0-16.0) g/dl Hct (37.0-47.0) % MCH (27.0-33.0) pg Immature Gran % (Auto) (0.0-0.4) % Neut % (Auto) (45-73) % Lymph % (Auto) (20-40) % Lymph # (Auto) (1.2-4.9) X10*3/uL Abs Immat Gran (auto) (0.00-0.03) X10*3/uL VBG HCO3 30 H (22-26) mmol/L Carbon Dioxide (22-29) mmol/L BUN (9-16) mg/dL Lactic Acid (0.5-2.0) mmol/L Lactic Acid F/U @ 2Hr 3.4 H* (0.5-2.0) mmol/L Lactic Acid F/U @ 4Hr (0.5-2.0) mmol/L B-Natriuretic Peptide 1462 H (<100) pg/mL Albumin (3.5-5.0) g/dL 05/28/23 05/28/23 05/28/23 Range/Units 04:18 05:20 05:20 RBC 4.14 L (4.20-5.50) X10*6/uL Hgb 10.7 L (12.0-16.0) g/dl Hct 33.9 L (37.0-47.0) % MCH 25.8 L (27.0-33.0) pg Immature Gran % (Auto) 0.5 H (0.0-0.4) % Neut % (Auto) 84.2 H (45-73) % Lymph % (Auto) 9.0 L (20-40) % Lymph # (Auto) 0.8 L (1.2-4.9) X10*3/uL Abs Immat Gran (auto) 0.04 H (0.00-0.03) X10*3/uL VBG HCO3 (22-26) mmol/L Carbon Dioxide 21 L (22-29) mmol/L BUN 23 H (9-16) mg/dL Lactic Acid (0.5-2.0) mmol/L Lactic Acid F/U @ 2Hr (0.5-2.0) mmol/L Lactic Acid F/U @ 4Hr 3.5 H* (0.5-2.0) mmol/L B-Natriuretic Peptide (<100) pg/mL Albumin (3.5-5.0) g/dL H & H 05/27/23 05/28/23 Range/Units 22:33 05:20 Hgb 11.3 L 10.7 L (12.0-16.0) g/dl Hct 35.3 L 33.9 L (37.0-47.0) % All other labs normal. Assessment and Plan Time Spent With Patient Time: Total time managing care of this patient today ____ minutes. Procedures Date of Service Date of Service: 05/28/23
[2023-05-28] MEDS: 0.9 % Sodium Chloride Flush 3 ML SYRINGE IVFLUSH ×2 (07:18→15:58)
--- NOTE | 2023-05-28 07:44 | PC.NURSE ---
seen by ortho, splint can be removed if patient wants, sling to remain in place. No surgical intervention for fx.
--- NOTE | 2023-05-28 07:45 | P.CONOP_ITS ---
History of Present Illness HPI Consult date: 05/28/23 Chief complaint: elbow fracture Narrative: This is a 67 yo F with a fall onto her left elbow. It was an open wound that was closed in the ED. She describes pain. Review of Systems Review of Systems: left thigh pain and headache Musculoskeletal: Comments: Left elbow immobilized. SILT left hand. Firing epl/fdp/io [facility] Past Medical History Medical History Acute on chronic systolic (congestive) heart failure Asymmetric blood pressures Atherosclerotic cardiovascular disease Atrial fibrillation with rapid ventricular response Bacteremia CAD (coronary artery disease) Cardiomyopathy CHF (congestive heart failure) COPD (chronic obstructive pulmonary disease) Dyspnea on effort Essential hypertension Left renal artery stenosis Multiple sclerosis PAF (paroxysmal atrial fibrillation) Peripheral arterial occlusive disease Personal history of nicotine dependence Pulmonary nodules Family History Family History Father No problems noted. Mother No problems noted. Brother Diabetes Surgical History Surgical History History of cholecystectomy (~02/2009) History of colonoscopy History of endoscopy History of heart artery stent (~2018) S/P cardiac cath (~12/2020) S/P insertion of iliac artery stent (~02/2019) Status post angioplasty with stent (~09/2018) Social History Social History Household Members: None Housing: House Are you a primary point of care technician to a significant other at home: No Do you presently have visiting nurse or other home services: No Alcohol intake: never Patient Tobacco Use Status: Former Tobacco user Quit Date: 2017 Tobacco use type: Cigarette e-Cigarette/Vaping Use: Never Used Second Hand Smoke Exposure: No Advance Directives: Yes Advance Directives on File: Yes Advance Directives Date on File: 12/27/20 service: No Current occupational status: retired Cognitive needs: Yes (cane) Hearing needs: No Vision needs: Yes (reading glasses) Meds Allergies Allergy/AdvReac Type Severity Reaction Status Date / Time codeine [Codeine] AdvReac Mild vomiting Verified 05/27/23 21:02 Active Medications: Current Medications Acetaminophen (Acetaminophen 325 Mg Tablet) 650 mg PO Q6H PRN PRN Reason: Pain, Mild (Pain Scale 1-3) Last Admin: 05/28/23 05:28 Dose: 650 mg Melatonin (Melatonin 3 Mg Tablet) 6 mg PO BEDTIME PRN PRN Reason: Insomnia Ondansetron HCl (Ondansetron Hcl 4 Mg/2 Ml Vial) 4 mg IVPUSH Q8H PRN PRN Reason: Nausea and Vomiting Pharmacy Consult (Consult Rx Perform Med Rec) 1 each MISCELLANE ONCE PRN PRN Reason: Consult order Sodium Chloride (0.9 % Sodium Chloride Flush 3 Ml Syringe) 3 ml IVFLUSH QSHIFT [facility] Last Admin: 05/28/23 07:18 Dose: 3 ml Home Medications Medication Instructions Recorded Confirmed Last Taken Type interferon beta-1a 30 mcg/0.5 mL 30 mcg IM TU 10/03/20 05/28/23 09/13/21 History intramuscular pen kit (Avonex) paroxetine HCl 40 mg tablet 40 mg PO BEDTIME 10/03/20 05/28/23 09/12/21 History cholecalciferol (vitamin D3) 25 25 mcg PO DAILY 12/20/20 05/28/23 09/13/21 History mcg (1,000 unit) tablet (Vitamin D3) cyanocobalamin (vitamin B-12) 1,000 mcg PO DAILY 12/20/20 05/28/23 09/13/21 History 1,000 mcg tablet (Vitamin B-12) melatonin 10 mg tablet 10 mg PO BEDTIME PRN Insomnia 01/13/23 05/28/23 Unknown History ferrous sulfate 325 mg (65 mg 325 mg PO BEDTIME 05/28/23 05/28/23 Unknown History iron) tablet Physical Exam Vital Signs: Vital Signs: Last Vital Signs Temp 98.2 F 05/28/23 05:50 Pulse 113 H 05/28/23 07:09 Resp 18 05/28/23 07:09 BP 126/75 05/28/23 07:09 Pulse Ox 96 05/28/23 07:09 O2 Del Method Room Air 05/28/23 07:09 BMI result Body Mass Index 24.7 Results Labs 05/28/23 05:20 05/28/23 05:20 Labs: Abnormal lab results 05/27/23 05/27/23 05/27/23 Range/Units 22:33 22:33 22:33 RBC (4.20-5.50) X10*6/uL Hgb 11.3 L (12.0-16.0) g/dl Hct 35.3 L (37.0-47.0) % MCH 26.1 L (27.0-33.0) pg Immature Gran % (Auto) (0.0-0.4) % Neut % (Auto) 78.6 H (45-73) % Lymph % (Auto) 15.4 L (20-40) % Lymph # (Auto) 1.1 L (1.2-4.9) X10*3/uL Abs Immat Gran (auto) (0.00-0.03) X10*3/uL VBG HCO3 (22-26) mmol/L Carbon Dioxide (22-29) mmol/L BUN 21 H (9-16) mg/dL Lactic Acid 2.2 H* (0.5-2.0) mmol/L Lactic Acid F/U @ 2Hr (0.5-2.0) mmol/L Lactic Acid F/U @ 4Hr (0.5-2.0) mmol/L B-Natriuretic Peptide (<100) pg/mL Albumin 3.4 L (3.5-5.0) g/dL 05/27/23 05/27/23 05/28/23 Range/Units 22:33 22:34 01:00 RBC (4.20-5.50) X10*6/uL Hgb (12.0-16.0) g/dl Hct (37.0-47.0) % MCH (27.0-33.0) pg Immature Gran % (Auto) (0.0-0.4) % Neut % (Auto) (45-73) % Lymph % (Auto) (20-40) % Lymph # (Auto) (1.2-4.9) X10*3/uL Abs Immat Gran (auto) (0.00-0.03) X10*3/uL VBG HCO3 30 H (22-26) mmol/L Carbon Dioxide (22-29) mmol/L BUN (9-16) mg/dL Lactic Acid (0.5-2.0) mmol/L Lactic Acid F/U @ 2Hr 3.4 H* (0.5-2.0) mmol/L Lactic Acid F/U @ 4Hr (0.5-2.0) mmol/L B-Natriuretic Peptide 1462 H (<100) pg/mL Albumin (3.5-5.0) g/dL 05/28/23 05/28/23 05/28/23 Range/Units 04:18 05:20 05:20 RBC 4.14 L (4.20-5.50) X10*6/uL Hgb 10.7 L (12.0-16.0) g/dl Hct 33.9 L (37.0-47.0) % MCH 25.8 L (27.0-33.0) pg Immature Gran % (Auto) 0.5 H (0.0-0.4) % Neut % (Auto) 84.2 H (45-73) % Lymph % (Auto) 9.0 L (20-40) % Lymph # (Auto) 0.8 L (1.2-4.9) X10*3/uL Abs Immat Gran (auto) 0.04 H (0.00-0.03) X10*3/uL VBG HCO3 (22-26) mmol/L Carbon Dioxide 21 L (22-29) mmol/L BUN 23 H (9-16) mg/dL Lactic Acid (0.5-2.0) mmol/L Lactic Acid F/U @ 2Hr (0.5-2.0) mmol/L Lactic Acid F/U @ 4Hr 3.5 H* (0.5-2.0) mmol/L B-Natriuretic Peptide (<100) pg/mL Albumin (3.5-5.0) g/dL H & H 05/27/23 05/28/23 Range/Units 22:33 05:20 Hgb 11.3 L 10.7 L (12.0-16.0) g/dl Hct 35.3 L 33.9 L (37.0-47.0) % All other labs normal. Diagnostic results Elbow x-ray: image reviewed (. Equivocal nondisplaced fracture of the coronoid process of the proximal ulna. Correlate with point tenderness. 2. Small anterior joint effusion. ) Assessment and Plan (1) Ulna fracture: Status: Acute Plan Patient has a small coronoid fracture that is likely from fall. She has a wound over the olecranon that was closed in the ED. This was not an open fracture but rather a small coronoid fracture with a wound over the olecranon. She will be admitted and we will continue to follow in house. No additional intervention warranted. Time Spent With Patient Time: Total time managing care of this patient today __15__ minutes. Procedures Date of Service Date of Service: 05/28/23
--- NOTE | 2023-05-28 10:05 | P.CONCA_ITS ---
History of Present Illness History of Present Illness Date of Service: 05/28/23 Chief complaint: elbow fracture Narrative: This is a cardiology consultation regarding congestive heart failure. Patient is well known to us. Last seen in the office few weeks back. History of coronary artery disease with multiple prior PCI, paroxysmal atrial fibrillation, hypertension among others. She states that she has not been feeling good for the last couple of weeks. She has been more short of breath than usual. In that setting, she was standing get out of car after going somewhere and then she fell down. Because of the fall she also had ulnar fracture. Overall, she is getting admitted for further care. He does not feel any palpitations. No chest pains. Review of Systems Review of Systems: Yes all other systems are reviewed and are negative Constitutional: Constitutional: Reports as per HPI and Reports no additional constitutional complaints Eyes: Eyes: Reports as per HPI and Denies no additional eye complaints ENT: Denies system reviewed and no additional complaints, except as documented and Reports as per HPI Cardiovascular: Cardiovascular: Reports as per HPI, Reports no additional cardiovascular complaints, Denies acrocyanosis, Denies cool extremities, Denies chest pain, Denies leg edema, Denies lightheadedness, Denies palpitations and Reports dyspnea Respiratory: Respiratory: Reports as per HPI, Denies no additional respiratory complaints and Reports dyspnea Gastrointestinal: Gastrointestinal: Reports as per HPI and Denies no additional gastrointestinal complaints Genitourinary: Genitourinary: Reports as per HPI Musculoskeletal: Musculoskeletal: Reports no additional musculoskeletal complaints and Reports as per HPI Integumentary/Breasts: Skin/Breast: Reports system reviewed and no additional complaints, except as docu Neurologic: Reports system reviewed and no additional complaints, except as documented and Reports as per HPI Psychiatric: Psychiatric: Reports no additional psychiatric complaints and Reports as per HPI Endocrine: Endocrine: Reports no additional endocrine complaints, Reports as per HPI and Denies palpitations Hematologic/Lymphatic: Hematologic/Lymphatic: Reports no additional hematologic/lymphatic complaints and Reports as per HPI Allergic/Immunologic: Allergic/Immunologic: Reports no additional allergic/immunologic complaints and Reports as per HPI [facility] Past Medical History Medical History Acute on chronic systolic (congestive) heart failure Asymmetric blood pressures Atherosclerotic cardiovascular disease Atrial fibrillation with rapid ventricular response Bacteremia CAD (coronary artery disease) Cardiomyopathy CHF (congestive heart failure) COPD (chronic obstructive pulmonary disease) Dyspnea on effort Essential hypertension Left renal artery stenosis Multiple sclerosis PAF (paroxysmal atrial fibrillation) Peripheral arterial occlusive disease Personal history of nicotine dependence Pulmonary nodules Family History Family History Father No problems noted. Mother No problems noted. Brother Diabetes Surgical History Surgical History History of cholecystectomy (~02/2009) History of colonoscopy History of endoscopy History of heart artery stent (~2018) S/P cardiac cath (~12/2020) S/P insertion of iliac artery stent (~02/2019) Status post angioplasty with stent (~09/2018) Social History Social History Household Members: None Housing: House Are you a primary adult live in caregiver to a significant other at home: No Do you presently have visiting nurse or other home services: No Alcohol intake: never Patient Tobacco Use Status: Former Tobacco user Quit Date: 2017 Tobacco use type: Cigarette e-Cigarette/Vaping Use: Never Used Second Hand Smoke Exposure: No Advance Directives: Yes Advance Directives on File: Yes Advance Directives Date on File: 12/27/20 service: No Current occupational status: retired Cognitive needs: Yes (cane) Hearing needs: No Vision needs: Yes (reading glasses) Meds Allergies Allergy/AdvReac Type Severity Reaction Status Date / Time codeine [Codeine] AdvReac Mild vomiting Verified 05/27/23 21:02 Active Medications: Current Medications Acetaminophen (Acetaminophen 325 Mg Tablet) 650 mg PO Q6H PRN PRN Reason: Pain, Mild (Pain Scale 1-3) Last Admin: 05/28/23 05:28 Dose: 650 mg Melatonin (Melatonin 3 Mg Tablet) 6 mg PO BEDTIME PRN PRN Reason: Insomnia Ondansetron HCl (Ondansetron Hcl 4 Mg/2 Ml Vial) 4 mg IVPUSH Q8H PRN PRN Reason: Nausea and Vomiting Pharmacy Consult (Consult Rx Perform Med Rec) 1 each MISCELLANE ONCE PRN PRN Reason: Consult order Sodium Chloride (0.9 % Sodium Chloride Flush 3 Ml Syringe) 3 ml IVFLUSH QSHIFT [facility] Last Admin: 05/28/23 07:18 Dose: 3 ml Home Medications Medication Instructions Recorded Confirmed Last Taken Type interferon beta-1a 30 mcg/0.5 mL 30 mcg IM TU 10/03/20 05/28/23 09/13/21 History intramuscular pen kit (Avonex) paroxetine HCl 40 mg tablet 40 mg PO BEDTIME 10/03/20 05/28/23 09/12/21 History cholecalciferol (vitamin D3) 25 25 mcg PO DAILY 12/20/20 05/28/23 09/13/21 History mcg (1,000 unit) tablet (Vitamin D3) cyanocobalamin (vitamin B-12) 1,000 mcg PO DAILY 12/20/20 05/28/23 09/13/21 History 1,000 mcg tablet (Vitamin B-12) melatonin 10 mg tablet 10 mg PO BEDTIME PRN Insomnia 01/13/23 05/28/23 Unknown History ferrous sulfate 325 mg (65 mg 325 mg PO BEDTIME 05/28/23 05/28/23 Unknown History iron) tablet Physical Exam Vital Signs: Vital Signs: Last Vital Signs Temp 98.7 F 05/28/23 08:09 Pulse 113 H 05/28/23 08:09 Resp 18 05/28/23 08:09 BP 123/85 05/28/23 08:09 Pulse Ox 96 05/28/23 07:09 O2 Del Method Room Air 05/28/23 08:09 BMI result Body Mass Index 24.7 Const: General: comfortable and no acute distress Orientation/consciousness: patient oriented x3 HEENT: Other: Unremarkable Head: Yes normal to inspection Neck: Neck: Yes normal visual inspection Chest: Chest palpation & inspection: normal inspection of the chest Resp: Auscultation: crackles and diminished lung sounds Cardio: Palpation: normal PMI Heart sounds: S1 normal heart sound present, S2 normal heart sound present, no gallops, Murmur heart sound present systolic III/ and at the right sternal border and no rubs GI: Palpation (GI): Soft to palpation Back/Spine/Pelvis: Other: unremarkable Skin: General skin exam: no rashes or lesions noted Neuro: General: patient oriented x3 Extrem: General: Yes normal to inspection Psych: Mental Status: mental status grossly normal Objective Labs and Meds 05/28/23 05:20 05/28/23 05:20 Lab results: Laboratory Results - last 24 hr 05/27/23 05/27/23 05/27/23 22:33 22:33 22:33 WBC 7.1 RBC 4.33 Hgb 11.3 L Hct 35.3 L MCV 81.5 MCH 26.1 L MCHC 32.0 RDW 14.5 Plt Count 221 MPV 10.0 Immature Gran % (Auto) 0.4 Neut % (Auto) 78.6 H Lymph % (Auto) 15.4 L [place] % (Auto) 3.6 Eos % (Auto) 1.4 Baso % (Auto) 0.6 Lymph # (Auto) 1.1 L [place] # (Auto) 0.3 Eos # (Auto) 0.1 Baso # (Auto) 0.0 Abs Immat Gran (auto) 0.03 Absolute Neuts (auto) 5.6 Absolute Nucleated RBC 0.000 Nucleated RBC % (auto) 0.0 VBG pH VBG pCO2 VBG pO2 VBG HCO3 VBG O2 Saturation VBG Base Excess Sodium 144 Potassium 3.9 Chloride 106 Carbon Dioxide 24 Anion Gap 18 BUN 21 H Creatinine 1.36 Estim Creat Clear Calc 36.5 Estimated GFR 39 Random Glucose 91 Lactic Acid Lactic Acid F/U @ 2Hr Lactic Acid F/U @ 4Hr Calcium 9.5 Total Bilirubin 0.5 Direct Bilirubin 0.2 AST 22 ALT 16 Alkaline Phosphatase 100 Troponin I High Sens B-Natriuretic Peptide Total Protein 6.5 Albumin 3.4 L COVID-19 (JULIO) Negative COVID-19 Clin Com See Note 05/27/23 05/27/23 05/27/23 22:33 22:33 22:33 WBC RBC Hgb Hct MCV MCH MCHC RDW Plt Count MPV Immature Gran % (Auto) Neut % (Auto) Lymph % (Auto) [place] % (Auto) Eos % (Auto) Baso % (Auto) Lymph # (Auto) [place] # (Auto) Eos # (Auto) Baso # (Auto) Abs Immat Gran (auto) Absolute Neuts (auto) Absolute Nucleated RBC Nucleated RBC % (auto) VBG pH VBG pCO2 VBG pO2 VBG HCO3 VBG O2 Saturation VBG Base Excess Sodium Potassium Chloride Carbon Dioxide Anion Gap BUN Creatinine Estim Creat Clear Calc Estimated GFR Random Glucose Lactic Acid 2.2 H* Lactic Acid F/U @ 2Hr Lactic Acid F/U @ 4Hr Calcium Total Bilirubin Direct Bilirubin AST ALT Alkaline Phosphatase Troponin I High Sens 16.8 B-Natriuretic Peptide 1462 H Total Protein Albumin COVID-19 (JULIO) COVID-19 HAM-IT Com 05/27/23 05/28/23 05/28/23 22:34 01:00 04:18 WBC RBC Hgb Hct MCV MCH MCHC RDW Plt Count MPV Immature Gran % (Auto) Neut % (Auto) Lymph % (Auto) [place] % (Auto) Eos % (Auto) Baso % (Auto) Lymph # (Auto) [place] # (Auto) Eos # (Auto) Baso # (Auto) Abs Immat Gran (auto) Absolute Neuts (auto) Absolute Nucleated RBC Nucleated RBC % (auto) VBG pH 7.43 VBG pCO2 45 VBG pO2 27 VBG HCO3 30 H VBG O2 Saturation 33.0 VBG Base Excess 5.3 Sodium Potassium Chloride Carbon Dioxide Anion Gap BUN Creatinine Estim Creat Clear Calc Estimated GFR Random Glucose Lactic Acid Lactic Acid F/U @ 2Hr 3.4 H* Lactic Acid F/U @ 4Hr 3.5 H* Calcium Total Bilirubin Direct Bilirubin AST ALT Alkaline Phosphatase Troponin I High Sens B-Natriuretic Peptide Total Protein Albumin COVID-19 (JULIO) COVID-19 Trunk Archive 05/28/23 05/28/23 05:20 05:20 WBC 8.8 RBC 4.14 L Hgb 10.7 L Hct 33.9 L MCV 81.9 MCH 25.8 L MCHC 31.6 RDW 14.5 Plt Count 230 MPV 10.4 Immature Gran % (Auto) 0.5 H Neut % (Auto) 84.2 H Lymph % (Auto) 9.0 L [place] % (Auto) 5.4 Eos % (Auto) 0.3 Baso % (Auto) 0.6 Lymph # (Auto) 0.8 L [place] # (Auto) 0.5 Eos # (Auto) 0.0 Baso # (Auto) 0.1 Abs Immat Gran (auto) 0.04 H Absolute Neuts (auto) 7.4 Absolute Nucleated RBC 0.000 Nucleated RBC % (auto) 0.0 VBG pH VBG pCO2 VBG pO2 VBG HCO3 VBG O2 Saturation VBG Base Excess Sodium 140 Potassium 3.9 Chloride 105 Carbon Dioxide 21 L Anion Gap 18 BUN 23 H Creatinine 1.32 Estim Creat Clear Calc 37.7 Estimated GFR 40 Random Glucose 100 Lactic Acid Lactic Acid F/U @ 2Hr Lactic Acid F/U @ 4Hr Calcium 9.2 Total Bilirubin Direct Bilirubin AST ALT Alkaline Phosphatase Troponin I High Sens B-Natriuretic Peptide Total Protein Albumin COVID-19 (JULIO) COVID-19 Clin Com ECG Interpretation: EKG with atrial fibrillation at 92/Min; lateral and some inferior ST depression. In the prior EKG from March, sinus rhythm but ST-T changes similar. Imaging Radiologist's impression: Impressions Cervical Spine CT 05/27/23 21:27 IMPRESSION: 1. No acute intracranial finding. Chronic volume loss with small vessel ischemic change. 2. No acute fracture or malalignment of the cervical spine. Mild degenerative changes. Head CT 05/27/23 21:27 IMPRESSION: 1. No acute intracranial finding. Chronic volume loss with small vessel ischemic change. 2. No acute fracture or malalignment of the cervical spine. Mild degenerative changes. Hip CT 05/27/23 22:54 IMPRESSION: 1. No acute fractures or malalignment. 2. Soft tissue thickening, stranding and free fluid in the left lateral proximal thigh, possibly related with a hematoma in the setting of trauma. Evaluation of active bleeding/extravasation is nondiagnostic in the absence of IV contrast. 3. Mild diffuse lower extremity subcutaneous haziness and skin thickening suggesting edema. 4. Left femoral stent graft, incompletely characterized in the absence of IV contrast. Chest X-Ray 05/27/23 22:58 IMPRESSION: 1. Redemonstration of a masslike opacity projecting over the right middle/lower lung, better characterized on prior CT from 01/13/2023. Underlying malignancy is not excluded and further valuation with PET/CT is recommended. 2. No new focal airspace opacity, pleural effusion or pneumothorax. 3. Stable asymmetric lucency of the right lateral costophrenic angle. Elbow X-Ray 05/27/23 22:58 IMPRESSION: 1. Equivocal nondisplaced fracture of the coronoid process of the proximal ulna. Correlate with point tenderness. 2. Small anterior joint effusion. 3. Punctate radiodensities along the posterior surface of the elbow could represent foreign bodies. Assessment and Plan (1) Acute on chronic diastolic (congestive) heart failure: Status: Acute (2) Atrial fibrillation with rapid ventricular response: Status: Acute (3) Atherosclerotic cardiovascular disease: Status: Acute Plan EKG shows atrial fibrillation slightly rapid rate. Last echocardiogram from October with LVEF of 59%. Basal inferior akinesis. Repeat study is pending. Cardiac BNP 1462. In the past, it has been as much as 2700. However, last value of 638. High sensitivity troponin 16.8. Chest x-ray with question of masslike opacity in the right middle/lower lung. Recommending CT/PET. Overall, probable acute on chronic congestive heart failure related to atrial fibrillation. At home, she is on metoprolol ER 50 mg daily. She is on Eliquis. She could not afford Multaq and also there was a question of bradycardia. There was some mild thyroid dysfunction with amiodarone. Hence she was only on beta-blockers. Need to see if she is a candidate for cardioversion or we can just leave heart rate control considering comorbidities. In that case, may just add digoxin. Continue Eliquis without changes unless trauma is an issue. No acute coronary issues. Will follow. Time Spent With Patient Time: Total time managing care of this patient today ____ minutes. Procedures Date of Service Date of Service: 05/28/23
--- NOTE | 2023-05-28 10:53 | PM.EVENT ---
Event Note Date of Service: 05/28/23 Event Note: pt seen, examined, med rec completed. Admitted this morning with heart failure exacerbation and uncontrolled AFIB.. Adding digoxin for better heart rate control, discussed management with cardiology. O/w A/P per H and P from this morning. Ortho following for cornoid fracture of left side. Time Spent With Patient Time: Total time managing care of this patient today ____ minutes.
[2023-05-28] MEDS: Atorvastatin Calcium 80 MG TABLET PO (11:12)
[2023-05-28] MEDS: Omeprazole 20 MG CAPSULE.DR PO (11:12)
[2023-05-28] MEDS: Cyanocobalamin (Vitamin B-12) 1,000 MCG TABLET 1000 MCG PO (11:12)
[2023-05-28] MEDS: Cholecalciferol (Vitamin D3) 25 MCG TABLET PO (11:12)
[2023-05-28] MEDS: Apixaban 5 MG TABLET PO ×2 (11:13→21:58)
[2023-05-28] MEDS: Digoxin 0.5 MG/2 ML AMPUL 0.125 MG IVPUSH ×2 (11:13→16:40)
[2023-05-28] MEDS: Metoprolol Succinate ER 50 MG TAB.ER.24H PO (11:13)
[2023-05-28] MEDS: Clopidogrel Bisulfate 75 MG TABLET PO (11:19)
--- NOTE | 2023-05-28 13:08 | MHC.CM.PN ---
Met with patient in regards to discharge planning. Patient lives alone, ambulates with a cane/walker, and had no services prior to coming to the hospital. Patient was driving herself to doctors appointments up until about a week ago. PCP verified. Copy of HCP verified to be on file. Patient received 4 Pfizer vaccines. Obs notice explained and signed. Patient is right handed and currently has a left elbow fracture. May need a physical therapy eval for home safety when medically stable. Patient's brother will transport patient home when medically stable. Continue to monitor for d/c needs.
--- NOTE | 2023-05-28 14:25 | PC.NURSE ---
report called to accepting unit, transport notified
[2023-05-28] MEDS: Ferrous Sulfate 324 MG TABLET.DR PO (21:58)
[2023-05-28] MEDS: PARoxetine HCL 40 MG TABLET PO (21:58)
[2023-05-28] MEDS: oxyBUTYnin chloride 5 MG TABLET PO (21:58)
[2023-05-29] MEDS: 0.9 % Sodium Chloride Flush 3 ML SYRINGE IVFLUSH ×3 (00:01→19:34)
[2023-05-29 03:03] VITALS: BP 114/68; PULSE 97; RESP 16; TEMP 37; O2SAT 95
[2023-05-29] MEDS: Levothyroxine Sodium 50 MCG TABLET PO (06:15)
[2023-05-29] MEDS: Omeprazole 20 MG CAPSULE.DR PO (06:15)
[2023-05-29 07:48] VITALS: BP 137/70; PULSE 80; RESP 16; TEMP 36.2; O2SAT 95
[2023-05-29] MEDS: Furosemide 40 MG/4 ML VIAL IVPUSH (08:21)
[2023-05-29] MEDS: Apixaban 5 MG TABLET PO ×2 (08:22→21:48)
[2023-05-29] MEDS: Metoprolol Succinate ER 50 MG TAB.ER.24H PO (08:22)
[2023-05-29] MEDS: Cholecalciferol (Vitamin D3) 25 MCG TABLET PO (08:22)
[2023-05-29] MEDS: Atorvastatin Calcium 80 MG TABLET PO (08:22)
[2023-05-29] MEDS: Acetaminophen 325 MG TABLET 650 MG PO ×3 (08:22→14:20)
[2023-05-29] MEDS: Cyanocobalamin (Vitamin B-12) 1,000 MCG TABLET 1000 MCG PO (08:23)
[2023-05-29] MEDS: Clopidogrel Bisulfate 75 MG TABLET PO (08:23)
[2023-05-29] MEDS: oxyBUTYnin chloride 5 MG TABLET PO ×2 (08:23→21:48)
--- NOTE | 2023-05-29 09:32 | HO.PM.IMPN ---
Subjective Subjective Date of Service: 05/29/23 Interval History: here for sob, fall left hand switch gram positive coocci bacteremia Physical Exam Vital Signs: Vital Signs: Last Vital Signs Temp 97.1 F 05/29/23 07:48 Pulse 80 05/29/23 07:48 Resp 16 05/29/23 07:48 BP 137/70 05/29/23 07:48 Pulse Ox 95 05/29/23 07:48 O2 Del Method Room Air 05/29/23 07:48 O2 Flow Rate 4 05/28/23 19:56 BMI result Body Mass Index 24.7 Const: Other: General: AO X 3, no acute distress Resp: CTA bilateral CVS: S1,S2, iregular iregular GI: +BS, NT, no distention Skin: No rash Neuro: motor grossly intact Psych: appropriate affect Objective Data Active Medications Acetaminophen (Acetaminophen 325 Mg Tablet) 650 mg PO Q6H PRN PRN Reason: Pain, Mild (Pain Scale 1-3) Last Admin: 05/29/23 08:22 Dose: 650 mg Documented By: CONRAD Albuterol Sulfate (Albuterol Sulfate 90 Mcg 8 Gm Inhaler) 2 puff INHALE Q4H PRN PRN Reason: shortness of breath or wheezing Apixaban (Apixaban 5 Mg Tablet) 5 mg PO BID [facility] Last Admin: 05/29/23 08:22 Dose: 5 mg Documented By: CONRAD Atorvastatin Calcium (Atorvastatin Calcium 80 Mg Tablet) 80 mg PO DAILY [facility] Last Admin: 05/29/23 08:22 Dose: 80 mg Documented By: CONRAD Clopidogrel Bisulfate (Clopidogrel Bisulfate 75 Mg Tablet) 75 mg PO DAILY [facility] Last Admin: 05/29/23 08:23 Dose: 75 mg Documented By: CONRAD Cyanocobalamin (Cyanocobalamin (Vitamin B-12) 1,000 Mcg Tablet) 1,000 mcg PO DAILY [facility] Last Admin: 05/29/23 08:23 Dose: 1,000 mcg Documented By: CONRAD Ferrous Sulfate (Ferrous Sulfate 324 Mg Tablet.) 324 mg PO BEDTIME [facility] Last Admin: 05/28/23 21:58 Dose: 324 mg Documented By: DIAZDEM Furosemide (Furosemide 40 Mg/4 Ml Vial) 40 mg IVPUSH DAILY [facility]; Protocol Last Admin: 05/29/23 08:21 Dose: 40 mg Documented By: CONRAD Levothyroxine Sodium (Levothyroxine Sodium 50 Mcg Tablet) 50 mcg PO DAILY@0600 [facility] Last Admin: 05/29/23 06:15 Dose: 50 mcg Documented By: RAO Melatonin (Melatonin 3 Mg Tablet) 6 mg PO BEDTIME PRN PRN Reason: Insomnia Melatonin (Melatonin 3 Mg Tablet) 9 mg PO BEDTIME PRN PRN Reason: Insomnia Metoprolol Succinate (Metoprolol Succinate Er 50 Mg Tab.Er.24h) 50 mg PO DAILY [facility]; Protocol Last Admin: 05/29/23 08:22 Dose: 50 mg Documented By: CONRAD Non-Formulary Medication (Interferon Beta-1a [Avonex]) 30 mcg IM TU [facility] Pt Own (Fluticasone Salmeterol 113/14 Mcg 1) 1 puff INHALE RBID [facility] Last Admin: 05/28/23 22:07 Dose: 1 puff Documented By: PRECIOUS Omeprazole (Omeprazole 20 Mg Capsule.) 20 mg PO DAILY@0630 [facility] Last Admin: 05/29/23 06:15 Dose: 20 mg Documented By: RAO Ondansetron HCl (Ondansetron Hcl 4 Mg/2 Ml Vial) 4 mg IVPUSH Q8H PRN PRN Reason: Nausea and Vomiting Oxybutynin Chloride (Oxybutynin Chloride 5 Mg Tablet) 5 mg PO BID [facility] Last Admin: 05/29/23 08:23 Dose: 5 mg Documented By: CONRAD Paroxetine HCl (Paroxetine Hcl 40 Mg Tablet) 40 mg PO BEDTIME [facility] Last Admin: 05/28/23 21:58 Dose: 40 mg Documented By: PRECIOUS Pharmacy Consult (Consult Rx Perform Med Rec) 1 each MISCELLANE ONCE PRN PRN Reason: Consult order Pharmacy Consult (Consult Rx Vancomycin Dosing) 1 each MISCELLANE DAILY PRN PRN Reason: Consult order Sodium Chloride (0.9 % Sodium Chloride Flush 3 Ml Syringe) 3 ml IVFLUSH QSHIFT [facility] Last Admin: 05/29/23 08:32 Dose: Not Given Documented By: CONRAD Non-Admin Reason: Previously Administered Vitamin D (Cholecalciferol (Vitamin D3) 25 Mcg Tablet) 25 mcg PO DAILY [facility] Last Admin: 05/29/23 08:22 Dose: 25 mcg Documented By: CONRAD Labs 05/28/23 05:20 05/28/23 05:20 Microbiology Microbiology Results: Microbiology 05/28/23 00:06 Blood Culture - Preliminary Blood - Venous Prelim: GPC Gram Stain only 05/27/23 22:33 Blood Culture - Preliminary Blood - Venous Prelim: GPC Gram Stain only Assessment and Plan (1) CHF (congestive heart failure): Status: Inactive (2) Bacteremia: Status: Acute (3) Acute UTI: Status: Acute Plan This is a 67-year-old female with pertinent history of multiple sclerosis, COPD not on home oxygen, paroxysmal atrial fibrillation on Eliquis, essential hypertension, coronary artery disease, hypothyroidism, congestive heart failure with preserved ejection fraction who presents to the emergency department for evaluation dyspnea and admitted for heart failure but now has gram positive cocci bacteremia #Gram positive cocci sepsis/ bacteremia, source unclear, echo no venegations, suspects pneumonia Start Vancomycin, ID consult #.? Acute respiratory distress, likely due to acute exacerbation of diastolic heart failure.?Being treated for IV Lasix #.? Non displaced fracture of ulna.?Ortho recommends no intervention #.? Paroxysmal atrial fibrillation on Eliquis #.? Hypothyroidism on Synthroid #.? Mood disorder.? Continue home mood stabilizers #.? Coronary artery disease.? On antiplatelet, beta-allyson and high-intensity statin DVT prophylaxis:? Eliquis Full code need for inpatient: sespsis work up, treatment with IV Abx Time Spent With Patient Time: Total time managing care of this patient today ____ minutes. Quality Stroke Does the patient have a stroke diagnosis?: No VTE Prior VTE?: No VTE Risk Level:: Medical - moderate - high VTE Device Contraindication: Treatment Not Indicated VTE Drug Contraindication: N/A - Med Ordered
[2023-05-29] MEDS: vancomycin HCL 1,000 MG, vancomycin HCL 750 MG in 0.9 % Sodium Chloride 500 ML 267.5 MG IV (11:12)
[2023-05-29 11:49] LABS: Creatinine Clr Calc Pharmacy 21.9; Estimated Glomerular Filt Rate 21
[2023-05-29] MEDS: Digoxin 0.125 MG TABLET PO ×2 (12:08→17:07)
--- NOTE | 2023-05-29 12:15 | P.PNCA_ITS ---
Subjective Subjective Date of Service: 05/29/23 Interval history: She states that she is feeling short of breath. Lot of pain from the fall. Review of Systems Review of Systems Yes all other systems are reviewed and are negative Constitutional: Reports as per HPI and Reports no additional constitutional complaints Eyes: Reports as per HPI and Denies no additional eye complaints Denies system reviewed and no additional complaints, except as documented and Reports as per HPI Cardiovascular: Reports as per HPI, Reports no additional cardiovascular co mplaints, Denies acrocyanosis, Denies cool extremities, Denies chest pain, Denies leg edema, Denies lightheadedness, Denies palpitations and Reports dyspnea Respiratory: Reports as per HPI, Denies no additional respiratory complaints and Reports dyspnea Gastrointestinal: Reports as per HPI and Denies no additional gastrointestinal complaints Genitourinary: Reports as per HPI Musculoskeletal: Reports no additional musculoskeletal complaints and Reports as per HPI Skin/Breast: Reports system reviewed and no additional complaints, except as docu Reports system reviewed and no additional complaints, except as documented and Reports as per HPI Psychiatric: Reports no additional psychiatric complaints and Reports as per HPI Endocrine: Reports no additional endocrine complaints, Reports as per HPI and Denies palpitations Hematologic/Lymphatic: Reports no additional hematologic/lymphatic complaints and Reports as per HPI Allergic/Immunologic: Reports no additional allergic/immunologic complaints and Reports as per HPI Physical Exam Vital Signs: Last Vital Signs Temp 97.1 F 05/29/23 07:48 Pulse 80 05/29/23 07:48 Resp 16 05/29/23 07:48 BP 137/70 05/29/23 07:48 Pulse Ox 95 05/29/23 07:48 O2 Del Method Room Air 05/29/23 07:48 O2 Flow Rate 4 05/28/23 19:56 BMI result Body Mass Index 24.7 Const Other: In pain from the fall. General: in distress and tired appearing Orientation/consciousness: patient oriented x3 HEENT Other: Unremarkable Head: Yes normal to inspection Neck Neck: Yes normal visual inspection Chest Chest palpation & inspection: normal inspection of the chest Resp Auscultation: rhonchi and diminished lung sounds Cardio Palpation: normal PMI Heart sounds: S1 normal heart sound present, S2 normal heart sound present, no gallops, Murmur heart sound present systolic II/ and at the right sternal border and no rubs GI Palpation (GI): Soft to palpation Back/Spine/Pelvis Other: unremarkable Skin General skin exam: no rashes or lesions noted Neuro General: patient oriented x3 Extrem General: Yes normal to inspection Psych Mental Status: mental status grossly normal Objective Labs and Meds 05/28/23 05:20 05/29/23 10:47 Lab results: Laboratory Results - last 24 hr 05/29/23 10:47 Creatinine 2.26 H Estim Creat Clear Calc 21.9 Estimated GFR 21 Progress Note: A&P Assessment and plan (1) Acute on chronic diastolic (congestive) heart failure: Status: Acute (2) Atrial fibrillation with rapid ventricular response: Status: Acute (3) Atherosclerotic cardiovascular disease: Status: Acute (4) Open olecranon fracture: Status: Acute (5) Ulna fracture: Status: Acute (6) Bacteremia: Status: Acute Plan EKG shows atrial fibrillation slightly rapid rate. On telemetry, atrial fibrillation rate of about 100/Min. Last echocardiogram from October with LVEF of 59%. Basal inferior akinesis. In the repeat study from as today, LVEF 20-25%. Wall motion is similar. Cardiac BNP 1462. In the past, it has been as much as 2700. However, last value of 638. High sensitivity troponin 16.8. Chest x-ray with question of masslike opacity in the right middle/lower lung. Recommending CT/PET. Overall, probable acute on chronic congestive heart failure related to atrial fibrillation. At home, she is on metoprolol ER 50 mg daily. She is on Eliquis. She could not afford Multaq and also there was a question of bradycardia. There was some mild thyroid dysfunction with amiodarone. Hence she was only on beta-blockers. Today, her blood cultures have also come back positive. Final result is still pending. For now, keep on beta-blockers and add digoxin as you have done. Probably needs to be cardioverted but timing to be decided as she is also in lot of pain from the injury and she is also in a sling, and currently bacteremic. Continue anticoagulation without interruption. Discussed with Dr. Vargas. Time Spent With Patient Time: Total time managing care of this patient today ____ minutes. Progress Note: Quality Stroke Does the patient have a stroke diagnosis?: No Procedures Date of Service Date of Service: 05/29/23
--- NOTE | 2023-05-29 12:29 | PHA.PROG ---
Admission Date/Time: May 28, 2023 04:52 Indication: BACTEREMIA Weight in k.5 kg Adjusted body weight in Kg: [place] body weight in Kg: Obesity Dosing Indication % IBW: Serum Creatinine - Last 168 Hours 05/27/23 05/28/23 05/29/23 22:33 05:20 10:47 Creatinine 1.36 1.32 2.26 H Estimated CrCl and GFR - Last 168 Hours 05/27/23 05/28/23 05/29/23 22:33 05:20 10:47 Estim Creat Clear Calc 36.5 37.7 21.9 Estimated GFR 39 40 21 Vancomycin Loading Dose: 1750 MG Current Vancomycin Dosing Regimen: 500 Q24H Vancomycin Monitoring using AUC goal of 400 - 600 range with trough as surrogate marker: Date and Time for next Vancomycin Level to be drawn: 05/31 @0900 Pharmacist Comments on Vancomycin Plan: - GOING WITH LOWER DOSING REGIMEN FOR NOW SINCE PT HAS ELEVATED SCR FROM BASELINE. WILL MONITOR RENAL FUNCTION Vancomycin dosing will take advantage of [address] as a clinical decision support tool that uses Bayesian modeling to calculate individual patient's pharmacokinetic parameters and forecast the patient's drug concentration time course with the target goal AUC 24 range of 400 - 600 mg/L/hr.
[2023-05-29 15:35] VITALS: BP 112/70; PULSE 97; RESP 16; TEMP 36.2; O2SAT 97
--- NOTE | 2023-05-29 16:39 | MHC.CM.PN ---
Change to INPT status per UR nurse. IMM delivered 05/29/23
[2023-05-29] MEDS: ondansetron HCL 4 MG/2 ML VIAL IVPUSH (19:34)
[2023-05-29 19:35] VITALS: BP 114/62; PULSE 77; RESP 20; TEMP 36.4; O2SAT 98
[2023-05-29] MEDS: PARoxetine HCL 40 MG TABLET PO (21:47)
[2023-05-29] MEDS: Ferrous Sulfate 324 MG TABLET.DR PO (21:48)
--- NOTE | 2023-05-29 22:37 | W.PM.IDCN ---
History of Present Illness Data of Consult Service Date: 05/29/23 Requesting physician: Jl Vargas Primary Care Provider: MD TALHA Rowland Reason for consult: gram positive bacteremia She presents with weakness last two weeks. She fell and hit arm and cast left arm. She has gram positive cocci blood, Review of Systems Review of Systems: Yes all other systems are reviewed and are negative PMFSH Past Medical History Medical History Acute on chronic systolic (congestive) heart failure Asymmetric blood pressures Atherosclerotic cardiovascular disease Atrial fibrillation with rapid ventricular response Bacteremia CAD (coronary artery disease) Cardiomyopathy CHF (congestive heart failure) COPD (chronic obstructive pulmonary disease) Dyspnea on effort Essential hypertension Left renal artery stenosis Multiple sclerosis PAF (paroxysmal atrial fibrillation) Peripheral arterial occlusive disease Personal history of nicotine dependence Pulmonary nodules Family History Family History Father No problems noted. Mother No problems noted. Brother Diabetes Surgical History Surgical History History of cholecystectomy (~02/2009) History of colonoscopy History of endoscopy History of heart artery stent (~2018) S/P cardiac cath (~12/2020) S/P insertion of iliac artery stent (~02/2019) Status post angioplasty with stent (~09/2018) Social History Social History Household Members: None Housing: House Are you a primary animal caregiver to a significant other at home: No Do you presently have visiting nurse or other home services: No Alcohol intake: never Patient Tobacco Use Status: Former Tobacco user Quit Date: 2017 Tobacco use type: Cigarette e-Cigarette/Vaping Use: Never Used Second Hand Smoke Exposure: No Use of substances other than those prescribed or required for medical reasons: No Currently Displaying Signs/Symptoms of Drug Intoxication Withdrawal: No Have you been hit, kicked, punched, or otherwise hurt by someone within the past year? If so, by whom?: No Do you feel safe in your current relationship?: No Current Relationship Is there a partner from a previous relationship who is making you feel unsafe now?: No Are you made to feel afraid or neglected: No Advance Directives: Yes Advance Directives on File: Yes Advance Directives Date on File: 12/27/20 Do you have thoughts of harming others: None Do you have a plan to hurt others: No Plan Recently lost weight without trying: No Nutrition Risks: No Nutritional Risk Patient : No : No Poor oral hygiene: No service: No Current occupational status: retired Cognitive needs: Yes (cane) Hearing needs: No Vision needs: Yes (reading glasses) Meds Allergies Allergy/AdvReac Type Severity Reaction Status Date / Time codeine [Codeine] AdvReac Mild vomiting Verified 05/27/23 21:02 Active Medications: Current Medications Acetaminophen (Acetaminophen 325 Mg Tablet) 650 mg PO Q6H PRN PRN Reason: Pain, Mild (Pain Scale 1-3) Last Admin: 05/29/23 14:20 Dose: 650 mg Albuterol Sulfate (Albuterol Sulfate 90 Mcg 8 Gm Inhaler) 2 puff INHALE Q4H PRN PRN Reason: shortness of breath or wheezing Apixaban (Apixaban 5 Mg Tablet) 5 mg PO BID [facility] Last Admin: 05/29/23 21:48 Dose: 5 mg Atorvastatin Calcium (Atorvastatin Calcium 80 Mg Tablet) 80 mg PO DAILY [facility] Last Admin: 05/29/23 08:22 Dose: 80 mg Clopidogrel Bisulfate (Clopidogrel Bisulfate 75 Mg Tablet) 75 mg PO DAILY [facility] Last Admin: 05/29/23 08:23 Dose: 75 mg Cyanocobalamin (Cyanocobalamin (Vitamin B-12) 1,000 Mcg Tablet) 1,000 mcg PO DAILY [facility] Last Admin: 05/29/23 08:23 Dose: 1,000 mcg Ferrous Sulfate (Ferrous Sulfate 324 Mg Tablet.Dr) 324 mg PO BEDTIME [facility] Last Admin: 05/29/23 21:48 Dose: 324 mg Furosemide (Furosemide 40 Mg/4 Ml Vial) 40 mg IVPUSH DAILY [facility]; Protocol Last Admin: 05/29/23 08:21 Dose: 40 mg Vancomycin HCl 500 mg/ Sodium (Chloride) 110 mls @ 110 mls/hr IV Q24H [facility] Levothyroxine Sodium (Levothyroxine Sodium 50 Mcg Tablet) 50 mcg PO DAILY@0600 [facility] Last Admin: 05/29/23 06:15 Dose: 50 mcg Melatonin (Melatonin 3 Mg Tablet) 6 mg PO BEDTIME PRN PRN Reason: Insomnia Melatonin (Melatonin 3 Mg Tablet) 9 mg PO BEDTIME PRN PRN Reason: Insomnia Metoprolol Succinate (Metoprolol Succinate Er 50 Mg Tab.Er.24h) 50 mg PO DAILY [facility]; Protocol Last Admin: 05/29/23 08:22 Dose: 50 mg Non-Formulary Medication (Interferon Beta-1a [Avonex]) 30 mcg IM [facility] Pt Own (Fluticasone Salmeterol 113/14 Mcg 1) 1 puff INHALE RBID [facility] Last Admin: 05/29/23 21:50 Dose: 1 puff Omeprazole (Omeprazole 20 Mg Capsule.Dr) 20 mg PO DAILY@0630 [facility] Last Admin: 05/29/23 06:15 Dose: 20 mg Ondansetron HCl (Ondansetron Hcl 4 Mg/2 Ml Vial) 4 mg IVPUSH Q8H PRN PRN Reason: Nausea and Vomiting Last Admin: 05/29/23 19:34 Dose: 4 mg Oxybutynin Chloride (Oxybutynin Chloride 5 Mg Tablet) 5 mg PO BID [facility] Last Admin: 05/29/23 21:48 Dose: 5 mg Paroxetine HCl (Paroxetine Hcl 40 Mg Tablet) 40 mg PO BEDTIME [facility] Last Admin: 05/29/23 21:47 Dose: 40 mg Pharmacy Consult (Consult Rx Perform Med Rec) 1 each MISCELLANE ONCE PRN PRN Reason: Consult order Pharmacy Consult (Consult Rx Vancomycin Dosing) 1 each MISCELLANE DAILY PRN PRN Reason: Consult order Sodium Chloride (0.9 % Sodium Chloride Flush 3 Ml Syringe) 3 ml IVFLUSH QSHIFT [facility] Last Admin: 05/29/23 19:34 Dose: 3 ml Vitamin D (Cholecalciferol (Vitamin D3) 25 Mcg Tablet) 25 mcg PO DAILY [facility] Last Admin: 05/29/23 08:22 Dose: 25 mcg Home Medications Medication Instructions Recorded Confirmed Last Taken Type interferon beta-1a 30 mcg/0.5 mL 30 mcg IM TU 10/03/20 05/28/23 09/13/21 History intramuscular pen kit (Avonex) paroxetine HCl 40 mg tablet 40 mg PO BEDTIME 10/03/20 05/28/23 09/12/21 History cholecalciferol (vitamin D3) 25 25 mcg PO DAILY 12/20/20 05/28/23 09/13/21 History mcg (1,000 unit) tablet (Vitamin D3) cyanocobalamin (vitamin B-12) 1,000 mcg PO DAILY 12/20/20 05/28/23 09/13/21 History 1,000 mcg tablet (Vitamin B-12) melatonin 10 mg tablet 10 mg PO BEDTIME PRN Insomnia 01/13/23 05/28/23 Unknown History ferrous sulfate 325 mg (65 mg 325 mg PO BEDTIME 05/28/23 05/28/23 Unknown History iron) tablet Physical Exam Vital Signs: Vital Signs: Last Vital Signs Temp 97.5 F 05/29/23 19:35 Pulse 77 05/29/23 19:35 Resp 20 05/29/23 19:35 BP 114/62 05/29/23 19:35 Pulse Ox 98 05/29/23 19:35 O2 Del Method Room Air 05/29/23 19:35 O2 Flow Rate 4 05/28/23 19:56 BMI result Body Mass Index 24.7 Extrem: Other: left arm abrasion ,soft cast Results Labs 05/28/23 05:20 05/29/23 10:47 Labs: BMP 05/29/23 10:47 Creatinine 2.26 H Microbiology Microbiology Results: Microbiology 05/28/23 00:06 Blood - Venous Blood Culture - Preliminary Prelim: GPC Gram Stain only 05/27/23 22:33 Blood - Venous Blood Culture - Preliminary Prelim: GPC Gram Stain only Assessment and Plan (1) Bacteremia: Status: Acute Bacteremia, possible MRSA She has possible arm or other metastatic sites. Source may be endocarditis. Plan Continue await cultures final from blood. Continue Vancomycin or other antibiotic if MSSA found possibly 4-6 weeks. Await echo evaluate endocarditis. Orthopedics follow arm Time Spent With Patient Time: Total time managing care of this patient today ____ minutes.
[2023-05-30] MEDS: Acetaminophen 325 MG TABLET 650 MG PO ×2 (00:49→09:41)
[2023-05-30] MEDS: Melatonin 3 MG TABLET 9 MG PO (00:52)
[2023-05-30 04:00] VITALS: BP 105/59; PULSE 91; RESP 18; TEMP 36.8; O2SAT 96
[2023-05-30] MEDS: traMADoL HCL 50 MG TABLET 25 MG PO ×2 (05:22→22:01)
[2023-05-30] MEDS: Levothyroxine Sodium 50 MCG TABLET PO (05:22)
[2023-05-30] MEDS: Omeprazole 20 MG CAPSULE.DR PO (06:33)
[2023-05-30 07:02] LABS: Creatinine Clr Calc Pharmacy 21.8; Estimated Glomerular Filt Rate 21
[2023-05-30 07:21] VITALS: BP 112/72; PULSE 92; RESP 16; TEMP 36.2; O2SAT 98
[2023-05-30] MEDS: Furosemide 40 MG/4 ML VIAL IVPUSH (09:41)
[2023-05-30] MEDS: Clopidogrel Bisulfate 75 MG TABLET PO (09:41)
[2023-05-30] MEDS: Apixaban 5 MG TABLET PO ×2 (09:41→22:03)
[2023-05-30] MEDS: Metoprolol Succinate ER 50 MG TAB.ER.24H PO (09:41)
[2023-05-30] MEDS: oxyBUTYnin chloride 5 MG TABLET PO ×2 (09:41→22:03)
[2023-05-30] MEDS: Atorvastatin Calcium 80 MG TABLET PO (09:41)
[2023-05-30] MEDS: Cyanocobalamin (Vitamin B-12) 1,000 MCG TABLET 1000 MCG PO (09:41)
[2023-05-30] MEDS: Cholecalciferol (Vitamin D3) 25 MCG TABLET PO (09:41)
[2023-05-30] MEDS: 0.9 % Sodium Chloride Flush 3 ML SYRINGE IVFLUSH ×2 (09:42→22:08)
--- NOTE | 2023-05-30 09:50 | P.PNIM_ITS ---
Subjective Subjective Date of Service: 05/30/23 Interval History: here for sob, fall left hand switch gram positive coocci bacteremia, feels weak, no fever Physical Exam Vital Signs: Vital Signs: Last Vital Signs Temp 97.1 F 05/30/23 07:21 Pulse 92 05/30/23 07:21 Resp 16 05/30/23 07:21 BP 112/72 05/30/23 07:21 Pulse Ox 98 05/30/23 07:21 O2 Del Method Room Air 05/30/23 07:21 O2 Flow Rate 4 05/28/23 19:56 BMI result Body Mass Index 24.7 Const: Other: General: AO X 3, no acute distress Resp: CTA bilateral CVS: S1,S2, iregular iregular GI: +BS, NT, no distention Skin: No rash Neuro: motor grossly intact Psych: appropriate affect Objective Data Active Medications Acetaminophen (Acetaminophen 325 Mg Tablet) 650 mg PO Q6H PRN PRN Reason: Pain, Mild (Pain Scale 1-3) Last Admin: 05/30/23 09:41 Dose: 650 mg Documented By: CARLINE Albuterol Sulfate (Albuterol Sulfate 90 Mcg 8 Gm Inhaler) 2 puff INHALE Q4H PRN PRN Reason: shortness of breath or wheezing Apixaban (Apixaban 5 Mg Tablet) 5 mg PO BID [facility] Last Admin: 05/30/23 09:41 Dose: 5 mg Documented By: CARLINE Atorvastatin Calcium (Atorvastatin Calcium 80 Mg Tablet) 80 mg PO DAILY [facility] Last Admin: 05/30/23 09:41 Dose: 80 mg Documented By: CARLINE Clopidogrel Bisulfate (Clopidogrel Bisulfate 75 Mg Tablet) 75 mg PO DAILY [facility] Last Admin: 05/30/23 09:41 Dose: 75 mg Documented By: CARLINE Cyanocobalamin (Cyanocobalamin (Vitamin B-12) 1,000 Mcg Tablet) 1,000 mcg PO DAILY [facility] Last Admin: 05/30/23 09:41 Dose: 1,000 mcg Documented By: CARLINE Ferrous Sulfate (Ferrous Sulfate 324 Mg Tablet.) 324 mg PO BEDTIME [facility] Last Admin: 05/29/23 21:48 Dose: 324 mg Documented By: ERIC Furosemide (Furosemide 40 Mg/4 Ml Vial) 40 mg IVPUSH DAILY [facility]; Protocol Last Admin: 05/30/23 09:41 Dose: 40 mg Documented By: CARLINE Vancomycin HCl 500 mg/ Sodium (Chloride) 110 mls @ 110 mls/hr IV Q24H [facility] Levothyroxine Sodium (Levothyroxine Sodium 50 Mcg Tablet) 50 mcg PO DAILY@0600 [facility] Last Admin: 05/30/23 05:22 Dose: 50 mcg Documented By: ERIC Melatonin (Melatonin 3 Mg Tablet) 6 mg PO BEDTIME PRN PRN Reason: Insomnia Melatonin (Melatonin 3 Mg Tablet) 9 mg PO BEDTIME PRN PRN Reason: Insomnia Last Admin: 05/30/23 00:52 Dose: 9 mg Documented By: ERIC Metoprolol Succinate (Metoprolol Succinate Er 50 Mg Tab.Er.24h) 50 mg PO DAILY [facility]; Protocol Last Admin: 05/30/23 09:41 Dose: 50 mg Documented By: CARLINE Non-Formulary Medication (Interferon Beta-1a [Avonex]) 30 mcg IM TU [facility] Pt Own (Fluticasone Salmeterol 113/14 Mcg 1) 1 puff INHALE RBID [facility] Last Admin: 05/30/23 09:49 Dose: 1 puff Documented By: CARLINE Omeprazole (Omeprazole 20 Mg Capsule.Dr) 20 mg PO DAILY@0630 [facility] Last Admin: 05/30/23 06:33 Dose: 20 mg Documented By: ERIC Ondansetron HCl (Ondansetron Hcl 4 Mg/2 Ml Vial) 4 mg IVPUSH Q8H PRN PRN Reason: Nausea and Vomiting Last Admin: 05/29/23 19:34 Dose: 4 mg Documented By: ERIC Oxybutynin Chloride (Oxybutynin Chloride 5 Mg Tablet) 5 mg PO BID [facility] Last Admin: 05/30/23 09:41 Dose: 5 mg Documented By: CARLINE Paroxetine HCl (Paroxetine Hcl 40 Mg Tablet) 40 mg PO BEDTIME [facility] Last Admin: 05/29/23 21:47 Dose: 40 mg Documented By: ERIC Pharmacy Consult (Consult Rx Perform Med Rec) 1 each MISCELLANE ONCE PRN PRN Reason: Consult order Pharmacy Consult (Consult Rx Vancomycin Dosing) 1 each MISCELLANE DAILY PRN PRN Reason: Consult order Sodium Chloride (0.9 % Sodium Chloride Flush 3 Ml Syringe) 3 ml IVFLUSH QSHIFT [facility] Last Admin: 05/30/23 09:42 Dose: 3 ml Documented By: CARLINE Vitamin D (Cholecalciferol (Vitamin D3) 25 Mcg Tablet) 25 mcg PO DAILY [facility] Last Admin: 05/30/23 09:41 Dose: 25 mcg Documented By: CARLINE Labs 05/28/23 05:20 05/30/23 06:00 Labs: Laboratory Results - last 24 hr 05/29/23 05/30/23 10:47 06:00 Estim Creat Clear Calc 21.9 21.8 Estimated GFR 21 21 Microbiology Microbiology Results: Microbiology 05/28/23 00:06 Blood Culture - Preliminary Blood - Venous Prelim: GPC Gram Stain only 05/27/23 22:33 Blood Culture - Preliminary Blood - Venous Prelim: GPC Gram Stain only Assessment and Plan (1) CHF (congestive heart failure): Status: Inactive (2) Bacteremia: Status: Acute (3) Acute UTI: Status: Acute Plan This is a 67-year-old female with pertinent history of multiple sclerosis, COPD not on home oxygen, paroxysmal atrial fibrillation on Eliquis, essential hypertension, coronary artery disease, hypothyroidism, congestive heart failure with preserved ejection fraction who presents to the emergency department for evaluation dyspnea and admitted for heart failure but now has gram positive cocci bacteremia #Gram positive cocci sepsis/ bacteremia, source unclear, echo no venegations, suspects pneumonia Started Vanco 05/29, repeat cultures pending, ID recommending 4 to 6 weeks of IV depending on final culture #.? Acute respiratory distress, likely due to acute exacerbation of diastolic heart failure.?Being treated for IV Lasix, hold due to rising Cr #.? Non displaced fracture of ulna.?Ortho recommends no intervention #.? Paroxysmal atrial fibrillation on Eliquis, give digoxin load yesterday, continue dig at 0.125 qod, continue metoprolol 50, LVEF of 59% now LVEF 20-25%. She may need cardioversion, cardiology following #.? Hypothyroidism on Synthroid #.? Mood disorder.? Continue home mood stabilizers #.? Coronary artery disease.? On antiplatelet, beta-allyson and high-intensity statin DVT prophylaxis:? Eliquis Full code need for inpatient: sespsis work up, treatment with IV Abx Time Spent With Patient Time: Total time managing care of this patient today ____ minutes. Quality Stroke Does the patient have a stroke diagnosis?: No VTE Prior VTE?: No VTE Risk Level:: Medical - moderate - high VTE Device Contraindication: Treatment Not Indicated VTE Drug Contraindication: N/A - Med Ordered
--- NOTE | 2023-05-30 10:23 | P.PNCA_ITS ---
Subjective Subjective Date of Service: 05/30/23 Interval history: She was sleeping when I went in. After waking up, she states she is okay. However, disappointed with all the issues are going on. She was on lot of pain is today and that is a little better. Review of Systems Review of Systems left thigh pain and headache Yes all other systems are reviewed and are negative Constitutional: Reports as per HPI and Reports no additional constitutional complaints Eyes: Reports as per HPI and Denies no additional eye complaints Denies system reviewed and no additional complaints, except as documented and Reports as per HPI Cardiovascular: Reports as per HPI, Reports no additional cardiovascular complaints, Denies acrocyanosis, Denies cool extremities, Denies chest pain, Denies leg edema, Denies lightheadedness, Denies palpitations and Denies dyspnea Respiratory: Reports as per HPI, Denies no additional respiratory complaints and Denies dyspnea Gastrointestinal: Reports as per HPI and Denies no additional gastrointestinal complaints Genitourinary: Reports as per HPI Musculoskeletal: Reports no additional musculoskeletal complaints and Reports as per HPI Skin/Breast: Reports system reviewed and no additional complaints, except as docu Reports system reviewed and no additional complaints, except as documented and Reports as per HPI Psychiatric: Reports no additional psychiatric complaints and Reports as per HPI Endocrine: Reports no additional endocrine complaints, Reports as per HPI and Denies palpitations Hematologic/Lymphatic: Reports no additional hematologic/lymphatic complaints and Reports as per HPI Allergic/Immunologic: Reports no additional allergic/immunologic complaints and Reports as per HPI Physical Exam Vital Signs: Last Vital Signs Temp 97.1 F 05/30/23 07:21 Pulse 92 05/30/23 07:21 Resp 16 05/30/23 07:21 BP 112/72 05/30/23 07:21 Pulse Ox 98 05/30/23 07:21 O2 Del Method Room Air 05/30/23 07:21 O2 Flow Rate 4 05/28/23 19:56 BMI result Body Mass Index 24.7 Const Other: In pain from the fall. General: comfortable, no acute distress, in distress and tired appearing Orientation/consciousness: patient oriented x3 HEENT Other: Unremarkable Head: Yes normal to inspection Neck Neck: Yes normal visual inspection Chest Chest palpation & inspection: normal inspection of the chest Resp Auscultation: crackles, rhonchi and diminished lung sounds Cardio Palpation: normal PMI Heart sounds: S1 normal heart sound present, S2 normal heart sound present, no gallops, Murmur heart sound present systolic II/ and at the right sternal border and no rubs GI Palpation (GI): Soft to palpation Back/Spine/Pelvis Other: unremarkable Skin General skin exam: no rashes or lesions noted Neuro General: patient oriented x3 Extrem General: Yes normal to inspection Psych Mental Status: mental status grossly normal Objective Labs and Meds 05/28/23 05:20 05/30/23 06:00 Lab results: Laboratory Results - last 24 hr 05/29/23 05/30/23 10:47 06:00 Creatinine 2.26 H 2.27 H Estim Creat Clear Calc 21.9 21.8 Estimated GFR 21 21 Progress Note: A&P Assessment and plan (1) Acute on chronic diastolic (congestive) heart failure: Status: Acute (2) Atrial fibrillation with rapid ventricular response: Status: Acute (3) Atherosclerotic cardiovascular disease: Status: Acute (4) Open olecranon fracture: Status: Acute (5) Ulna fracture: Status: Acute (6) Bacteremia: Status: Acute Plan On telemetry, atrial fibrillation rate seems controlled. Last echocardiogram from October with LVEF of 59%. Basal inferior akinesis. In the repeat study from as today, LVEF 20-25%. Wall motion is similar. Cardiac BNP 1462. In the past, it has been as much as 2700. However, last value of 638. High sensitivity troponin 16.8. Chest x-ray with question of masslike opacity in the right middle/lower lung. Recommending CT/PET. Overall, probable acute on chronic congestive heart failure related to atrial fibrillation. At home, she is on metoprolol ER 50 mg daily. She is on Eliquis. She could not afford Multaq and also there was a question of bradycardia. There was some mild thyroid dysfunction with amiodarone. Hence she was only on beta-blockers. Her blood cultures have also come back positive. Final result is still pending. We can keep her on beta-blockers. Continues digoxin as the creatinine is going up. We can rather started on amiodarone 400 mg b.i.d. for now. With all the ongoing medical issues including fracture, bacteremia will hold off cardioversion at this time but may need in the future. Continue antico agulation. Stop diuretics. Discussed with Dr. Vargas. Time Spent With Patient Time: Total time managing care of this patient today 45 minutes. This includes time spent in review of chart, laboratory data, imaging studies, review of telemetry, counseling patient, discussion with hospitalist, RN, documentation, coordination of care. Progress Note: Quality Stroke Does the patient have a stroke diagnosis?: No Procedures Date of Service Date of Service: 05/30/23
[2023-05-30] MEDS: Amiodarone HCL 200 MG TABLET 400 MG PO ×2 (12:09→22:04)
[2023-05-30] MEDS: vancomycin HCL 500 MG in 0.9 % Sodium Chloride 100 ML 110 MG IV (12:10)
--- NOTE | 2023-05-30 12:42 | MHC.CM.PN ---
T/W MET WITH PATIENT TO DISCUSS DC PLANS. PATIENT PREFERS TO GO TO REHAB FOR COMPLETION OF IV ABX NEEDS (4-6 WEEKS) CULTURES EXPECTED BACK Friday06/02/23 SHE DOES NOT WANT [facility]. REFERRALS TO [facility] AND [facility] [place]. SHE WILL DECIDE BASED ON ANY OFFERS RECEIVED. CM FOLLOWING.
[2023-05-30 15:28] VITALS: BP 122/69; PULSE 89; RESP 16; TEMP 36.7; O2SAT 96
--- NOTE | 2023-05-30 17:51 | P.CONNP_ITS ---
History of Present Illness Reason for Consult Consult date: 05/30/23 Chief Complaint Chief complaint: elbow fracture History of Present Illness Narrative: Ms. Nai Garcia is a 67-year-old female with pertinent history of multiple sclerosis, COPD not on home oxygen, paroxysmal atrial fibrillation on Eliquis, essential hypertension, coronary artery disease, hypothyroidism, congestive heart failure with preserved ejection fraction and CKD stage IIIa BL Cr 1.2mg/dL with Left KIM (f/b Dr Marcelo for RA stenting), who presents after fa ll. She was found to have fracture of ulna. Course c/b SUSAN on CKD and CHF. She also developed GPC bacteremia. 1. non-oliguric SUSAN on CKD BL Cr 1.2mg/dL Left Renal A stenosis SUSAN in the setting of sepsis and volume overload plan; - I ahve ordered U/a and urine lytes to work up SUSAN - hold diuretics for now - monitor vanco troughs. Review of Systems Constitutional: Reports as per HPI COUNT INCLUDES [facility] Past Medical History Medical History Acute on chronic systolic (congestive) heart failure Asymmetric blood pressures Atherosclerotic cardiovascular disease Atrial fibrillation with rapid ventricular response Bacteremia CAD (coronary artery disease) Cardiomyopathy CHF (congestive heart failure) COPD (chronic obstructive pulmonary disease) Dyspnea on effort Essential hypertension Left renal artery stenosis Multiple sclerosis PAF (paroxysmal atrial fibrillation) Peripheral arterial occlusive disease Personal history of nicotine dependence Pulmonary nodules Family History Family History Father No problems noted. Mother No problems noted. Brother Diabetes Surgical History Surgical History History of cholecystectomy (~02/2009) History of colonoscopy History of endoscopy History of heart artery stent (~2018) S/P cardiac cath (~12/2020) S/P insertion of iliac artery stent (~02/2019) Status post angioplasty with stent (~09/2018) Social History Social History Household Members: None Housing: House Are you a primary director of health care marketing to a significant other at home: No Do you presently have visiting nurse or other home services: No Alcohol intake: never Patient Tobacco Use Status: Former Tobacco user Quit Date: 2017 Tobacco use type: Cigarette e-Cigarette/Vaping Use: Never Used Second Hand Smoke Exposure: No Use of substances other than those prescribed or required for medical reasons: No Currently Displaying Signs/Symptoms of Drug Intoxication Withdrawal: No Have you been hit, kicked, punched, or otherwise hurt by someone within the past year? If so, by whom?: No Do you feel safe in your current relationship?: No Current Relationship Is there a partner from a previous relationship who is making you feel unsafe now?: No Are you made to feel afraid or neglected: No Advance Directives: Yes Advance Directives on File: Yes Advance Directives Date on File: 12/27/20 Do you have thoughts of harming others: None Do you have a plan to hurt others: No Plan Recently lost weight without trying: No Nutrition Risks: No Nutritional Risk Patient : No : No Poor oral hygiene: No service: No Current occupational status: retired Cognitive needs: Yes (cane) Hearing needs: No Vision needs: Yes (reading glasses) Meds Allergies Allergy/AdvReac Type Severity Reaction Status Date / Time codeine [Codeine] AdvReac Mild vomiting Verified 05/27/23 21:02 Active Medications: Current Medications Acetaminophen (Acetaminophen 325 Mg Tablet) 650 mg PO Q6H PRN PRN Reason: Pain, Mild (Pain Scale 1-3) Last Admin: 05/30/23 09:41 Dose: 650 mg Albuterol Sulfate (Albuterol Sulfate 90 Mcg 8 Gm Inhaler) 2 puff INHALE Q4H PRN PRN Reason: shortness of breath or wheezing Amiodarone HCl (Amiodarone Hcl 200 Mg Tablet) 400 mg PO BID [facility] Stop: 06/06/23 10:29 Last Admin: 05/30/23 12:09 Dose: 400 mg Apixaban (Apixaban 5 Mg Tablet) 5 mg PO BID [facility] Last Admin: 05/30/23 09:41 Dose: 5 mg Atorvastatin Calcium (Atorvastatin Calcium 80 Mg Tablet) 80 mg PO DAILY [facility] Last Admin: 05/30/23 09:41 Dose: 80 mg Clopidogrel Bisulfate (Clopidogrel Bisulfate 75 Mg Tablet) 75 mg PO DAILY [facility] Last Admin: 05/30/23 09:41 Dose: 75 mg Cyanocobalamin (Cyanocobalamin (Vitamin B-12) 1,000 Mcg Tablet) 1,000 mcg PO DAILY [facility] Last Admin: 05/30/23 09:41 Dose: 1,000 mcg Ferrous Sulfate (Ferrous Sulfate 324 Mg Tablet.) 324 mg PO BEDTIME [facility] Last Admin: 05/29/23 21:48 Dose: 324 mg Vancomycin HCl 500 mg/ Sodium (Chloride) 110 mls @ 110 mls/hr IV Q24H [facility] Last Infusion: 05/30/23 13:49 Dose: Infused Levothyroxine Sodium (Levothyroxine Sodium 50 Mcg Tablet) 50 mcg PO DAILY@0600 [facility] Last Admin: 05/30/23 05:22 Dose: 50 mcg Melatonin (Melatonin 3 Mg Tablet) 6 mg PO BEDTIME PRN PRN Reason: Insomnia Melatonin (Melatonin 3 Mg Tablet) 9 mg PO BEDTIME PRN PRN Reason: Insomnia Last Admin: 05/30/23 00:52 Dose: 9 mg Metoprolol Succinate (Metoprolol Succinate Er 50 Mg Tab.Er.24h) 50 mg PO DAILY [facility]; Protocol Last Admin: 05/30/23 09:41 Dose: 50 mg Non-Formulary Medication (Interferon Beta-1a [Avonex]) 30 mcg IM TU [facility] Pt Own (Fluticasone Salmeterol 113/14 Mcg 1) 1 puff INHALE RBID [facility] Last Admin: 05/30/23 09:49 Dose: 1 puff Omeprazole (Omeprazole 20 Mg Capsule.) 20 mg PO DAILY@0630 [facility] Last Admin: 05/30/23 06:33 Dose: 20 mg Ondansetron HCl (Ondansetron Hcl 4 Mg/2 Ml Vial) 4 mg IVPUSH Q8H PRN PRN Reason: Nausea and Vomiting Last Admin: 05/29/23 19:34 Dose: 4 mg Oxybutynin Chloride (Oxybutynin Chloride 5 Mg Tablet) 5 mg PO BID [facility] Last Admin: 05/30/23 09:41 Dose: 5 mg Paroxetine HCl (Paroxetine Hcl 40 Mg Tablet) 40 mg PO BEDTIME [facility] Last Admin: 05/29/23 21:47 Dose: 40 mg Pharmacy Consult (Consult Rx Perform Med Rec) 1 each MISCELLANE ONCE PRN PRN Reason: Consult order Pharmacy Consult (Consult Rx Vancomycin Dosing) 1 each MISCELLANE DAILY PRN PRN Reason: Consult order Sodium Chloride (0.9 % Sodium Chloride Flush 3 Ml Syringe) 3 ml IVFLUSH QSHIFT [facility] Last Admin: 05/30/23 17:24 Dose: Not Given Vitamin D (Cholecalciferol (Vitamin D3) 25 Mcg Tablet) 25 mcg PO DAILY [facility] Last Admin: 05/30/23 09:41 Dose: 25 mcg Home Medications Medication Instructions Recorded Confirmed Last Taken Type interferon beta-1a 30 mcg/0.5 mL 30 mcg IM TU 10/03/20 05/28/23 09/13/21 History intramuscular pen kit (Avonex) paroxetine HCl 40 mg tablet 40 mg PO BEDTIME 10/03/20 05/28/23 09/12/21 History cholecalciferol (vitamin D3) 25 25 mcg PO DAILY 12/20/20 05/28/23 09/13/21 Hi story mcg (1,000 unit) tablet (Vitamin D3) cyanocobalamin (vitamin B-12) 1,000 mcg PO DAILY 12/20/20 05/28/23 09/13/21 History 1,000 mcg tablet (Vitamin B-12) melatonin 10 mg tablet 10 mg PO BEDTIME PRN Insomnia 01/13/23 05/28/23 Unknown History ferrous sulfate 325 mg (65 mg 325 mg PO BEDTIME 05/28/23 05/28/23 Unknown History iron) tablet Physical Exam Vital Signs: Last Vital Signs Temp 98.0 F 05/30/23 15:28 Pulse 89 05/30/23 15:28 Resp 16 05/30/23 15:28 BP 122/69 05/30/23 15:28 Pulse Ox 96 05/30/23 15:28 O2 Del Method Room Air 05/30/23 15:28 O2 Flow Rate 4 05/28/23 19:56 BMI result Body Mass Index 24.7 Const Orientation/consciousness: patient oriented x3 Chest Chest palpation & inspection: normal inspection of the chest Resp Auscultation: diminished lung sounds Cardio Heart sounds: S1 normal heart sound present, S2 normal heart sound present, no gallops, Murmur heart sound present systolic II/ and at the right sternal border and no rubs GI Palpation (GI): Soft to palpation Neuro General: patient oriented x3 Extrem Other: left arm abrasion ,soft cast Psych Mental Status: mental status grossly normal Results Lab Results 05/28/23 05:20 05/30/23 06:00 Lab results: Chemistry 05/27/23 05/28/23 05/29/23 22:33 05:20 10:47 Sodium 144 140 Potassium 3.9 3.9 Carbon Dioxide 24 21 L BUN 21 H 23 H Creatinine 1.36 1.32 2.26 H Calcium 9.5 9.2 05/30/23 06:00 Sodium Potassium Carbon Dioxide BUN Creatinine 2.27 H Calcium Hematology 05/27/23 05/28/23 22:33 05:20 WBC 7.1 8.8 Hgb 11.3 L 10.7 L Plt Count 221 230 Assessment and Plan (1) Acute on chronic diastolic (congestive) heart failure: Status: Acute (2) Atrial fibrillation with rapid ventricular response: Status: Acute (3) Atherosclerotic cardiovascular disease: Status: Acute (4) Open olecranon fracture: Status: Acute (5) Ulna fracture: Status: Acute (6) Bacteremia: Status: Acute Time Spent With Patient Time: Total time managing care of this patient today ____ minutes. Procedures Date of Service Date of Service: 05/30/23
[2023-05-30] MEDS: PARoxetine HCL 40 MG TABLET PO (22:03)
[2023-05-30] MEDS: Ferrous Sulfate 324 MG TABLET.DR PO (22:03)
[2023-05-31] MEDS: Acetaminophen 325 MG TABLET 650 MG PO ×3 (02:03→17:25)
[2023-05-31 03:47] LABS: Creatinine Urine 62.42 mg/dL
[2023-05-31 05:55] LABS: Creatinine Clr Calc Pharmacy 19.6; Estimated Glomerular Filt Rate 19
[2023-05-31] MEDS: traMADoL HCL 50 MG TABLET 25 MG PO ×3 (07:56→21:59)
[2023-05-31] MEDS: Levothyroxine Sodium 50 MCG TABLET PO (07:56)
[2023-05-31] MEDS: Apixaban 5 MG TABLET PO ×2 (07:56→20:01)
[2023-05-31] MEDS: Metoprolol Succinate ER 50 MG TAB.ER.24H PO (07:57)
[2023-05-31] MEDS: Cholecalciferol (Vitamin D3) 25 MCG TABLET PO (07:57)
[2023-05-31] MEDS: Cyanocobalamin (Vitamin B-12) 1,000 MCG TABLET 1000 MCG PO (07:57)
[2023-05-31] MEDS: Clopidogrel Bisulfate 75 MG TABLET PO (07:57)
[2023-05-31] MEDS: Amiodarone HCL 200 MG TABLET 400 MG PO ×2 (07:57→20:01)
[2023-05-31] MEDS: Atorvastatin Calcium 80 MG TABLET PO (07:57)
[2023-05-31] MEDS: oxyBUTYnin chloride 5 MG TABLET PO ×2 (07:57→20:01)
[2023-05-31] MEDS: Omeprazole 20 MG CAPSULE.DR PO (07:57)
[2023-05-31] MEDS: 0.9 % Sodium Chloride Flush 3 ML SYRINGE IVFLUSH (07:58)
[2023-05-31] MEDS: Sodium Chloride 0.45 % 1,000 ML 100 ML IVCONT ×2 (07:58→19:18)
[2023-05-31 08:00] VITALS: BP 122/77; PULSE 82; RESP 20; TEMP 36.6; O2SAT 97
[2023-05-31] MEDS: ondansetron HCL 4 MG/2 ML VIAL IVPUSH (08:09)
--- NOTE | 2023-05-31 08:38 | P.PNIM_ITS ---
Subjective Subjective Date of Service: 05/31/23 Interval History: here for sob, fall left hand switch gram positive coocci bacteremia, feels weak, no fever Physical Exam Vital Signs: Vital Signs: Last Vital Signs Temp 97.9 F 05/31/23 08:00 Pulse 82 05/31/23 08:00 Resp 20 05/31/23 08:00 BP 122/77 05/31/23 08:00 Pulse Ox 97 05/31/23 08:00 O2 Del Method Room Air 05/31/23 08:00 O2 Flow Rate 4 05/28/23 19:56 BMI result Body Mass Index 24.7 Const: Other: General: AO X 3, no acute distress Resp: CTA bilateral CVS: S1,S2, iregular iregular GI: +BS, NT, no distention Skin: No rash ext: jo sling Neuro: motor grossly intact Psych: appropriate affect Objective Data Active Medications Acetaminophen (Acetaminophen 325 Mg Tablet) 650 mg PO Q6H PRN PRN Reason: Pain, Mild (Pain Scale 1-3) Last Admin: 05/31/23 02:03 Dose: 650 mg Documented By: ERIC Albuterol Sulfate (Albuterol Sulfate 90 Mcg 8 Gm Inhaler) 2 puff INHALE Q4H PRN PRN Reason: shortness of breath or wheezing Amiodarone HCl (Amiodarone Hcl 200 Mg Tablet) 400 mg PO BID [facility] Stop: 06/06/23 10:29 Last Admin: 05/31/23 07:57 Dose: 400 mg Documented By: CARLINE Apixaban (Apixaban 5 Mg Tablet) 5 mg PO BID [facility] Last Admin: 05/31/23 07:56 Dose: 5 mg Documented By: CARLINE Atorvastatin Calcium (Atorvastatin Calcium 80 Mg Tablet) 80 mg PO DAILY [facility] Last Admin: 05/31/23 07:57 Dose: 80 mg Documented By: CARLINE Clopidogrel Bisulfate (Clopidogrel Bisulfate 75 Mg Tablet) 75 mg PO DAILY [facility] Last Admin: 05/31/23 07:57 Dose: 75 mg Documented By: CARLINE Cyanocobalamin (Cyanocobalamin (Vitamin B-12) 1,000 Mcg Tablet) 1,000 mcg PO DAILY [facility] Last Admin: 05/31/23 07:57 Dose: 1,000 mcg Documented By: CARLINE Ferrous Sulfate (Ferrous Sulfate 324 Mg Tablet.) 324 mg PO BEDTIME [facility] Last Admin: 05/30/23 22:03 Dose: 324 mg Documented By: ERIC Vancomycin HCl 500 mg/ Sodium (Chloride) 110 mls @ 110 mls/hr IV Q24H [facility] Last Infusion: 05/30/23 13:49 Dose: 0 mls/hr Documented By: CARLINE Sodium Chloride (Sodium Chloride 0.45 %) 1,000 mls @ 100 mls/hr IVCONT .Q10H [facility] Last Admin: 05/31/23 07:58 Dose: 100 mls/hr Documented By: CARLINE Levothyroxine Sodium (Levothyroxine Sodium 50 Mcg Tablet) 50 mcg PO DAILY@0600 [facility] Last Admin: 05/31/23 07:56 Dose: 50 mcg Documented By: CARLINE Melatonin (Melatonin 3 Mg Tablet) 6 mg PO BEDTIME PRN PRN Reason: Insomnia Melatonin (Melatonin 3 Mg Tablet) 9 mg PO BEDTIME PRN PRN Reason: Insomnia Last Admin: 05/30/23 00:52 Dose: 9 mg Documented By: ERIC Metoprolol Succinate (Metoprolol Succinate Er 50 Mg Tab.Er.24h) 50 mg PO DAILY [facility]; Protocol Last Admin: 05/31/23 07:57 Dose: 50 mg Documented By: CARLINE Non-Formulary Medication (Interferon Beta-1a [Avonex]) 30 mcg IM TU [facility] Pt Own (Fluticasone Salmeterol 113/14 Mcg 1) 1 puff INHALE RBID [facility] Last Admin: 05/31/23 07:56 Dose: 1 puff Documented By: CARLINE Omeprazole (Omeprazole 20 Mg Capsule.) 20 mg PO DAILY@0630 [facility] Last Admin: 05/31/23 07:57 Dose: 20 mg Documented By: CARLINE Ondansetron HCl (Ondansetron Hcl 4 Mg/2 Ml Vial) 4 mg IVPUSH Q8H PRN PRN Reason: Nausea and Vomiting Last Admin: 05/31/23 08:09 Dose: 4 mg Documented By: CARLINE Oxybutynin Chloride (Oxybutynin Chloride 5 Mg Tablet) 5 mg PO BID [facility] Last Admin: 05/31/23 07:57 Dose: 5 mg Documented By: CARLINE Paroxetine HCl (Paroxetine Hcl 40 Mg Tablet) 40 mg PO BEDTIME [facility] Last Admin: 05/30/23 22:03 Dose: 40 mg Documented By: ERIC Pharmacy Consult (Consult Rx Perform Med Rec) 1 each MISCELLANE ONCE PRN PRN Reason: Consult order Pharmacy Consult (Consult Rx Vancomycin Dosing) 1 each MISCELLANE DAILY PRN PRN Reason: Consult order Sodium Chloride (0.9 % Sodium Chloride Flush 3 Ml Syringe) 3 ml IVFLUSH QSHIFT [facility] Last Admin: 05/31/23 07:58 Dose: 3 ml Documented By: CARLINE Tramadol HCl (Tramadol Hcl 50 Mg Tablet) 25 mg PO Q6H PRN PRN Reason: Pain, Severe (Pain Scale 7-10) Last Admin: 05/31/23 07:56 Dose: 25 mg Documented By: CARLINE Vitamin D (Cholecalciferol (Vitamin D3) 25 Mcg Tablet) 25 mcg PO DAILY [facility] Last Admin: 05/31/23 07:57 Dose: 25 mcg Documented By: CARLINE Labs 05/28/23 05:20 05/31/23 05:12 Labs: Laboratory Results - last 24 hr 05/31/23 05/31/23 05/31/23 03:25 03:25 05:12 Estim Creat Clear Calc 19.6 Estimated GFR 19 Ur Random Sodium 34.0 Urine Creatinine 62.42 Microbiology Microbiology Results: Microbiology 05/28/23 00:06 Blood Culture - Final Blood - Venous Staphylococcus epidermidis Coag negative Staphylococcus 05/27/23 22:33 Blood Culture - Final Blood - Venous Staphylococcus epidermidis 05/29/23 19:13 Blood Culture - Preliminary Blood - Venous No growth after 24 hours. 05/29/23 19:13 Blood Culture - Preliminary Blood - Venous No growth after 24 hours. Assessment and Plan (1) CHF (congestive heart failure): Status: Inactive (2) Bacteremia: Status: Acute (3) Acute UTI: Status: Acute Plan This is a 67-year-old female with pertinent history of multiple sclerosis, COPD not on home oxygen, paroxysmal atrial fibrillation on Eliquis, essential hypertension, coronary artery disease, hypothyroidism, congestive heart failure with preserved ejection fraction who presents to the emergency department for evaluation dyspnea and admitted for heart failure but now has gram positive cocci bacteremia #Gram positive cocci sepsis/ bacteremia, source unclear, echo no venegations, suspects pneumonia Started Vanco 05/29, repeat cultures pending, ID recommending 4 to 6 weeks of IV depending on final culture #.? Acute respiratory distress, likely due to acute exacerbation of diastolic heart failure.?Being treated for IV Lasix, but holding to due rising #.? Non displaced fracture of ulna.?Ortho recommends no intervention #.? Paroxysmal atrial fibrillation on Eliquis, give digoxin load yesterday, dig stopped d/t increasing Cr, continue metoprolol 50, LVEF of 59% now LVEF 20-25%. She may need cardioversion, cardiology following. Started Amio loading 05/30 #.? Hypothyroidism on Synthroid #.? Mood disorder.? Continue home mood stabilizers #.? Coronary artery disease.? On antiplatelet, beta-allyson and high-intensity s tatin DVT prophylaxis:? Meg Full code need for inpatient: sespsis work up, treatment with IV Abx She will likely need rehab at discharge Time Spent With Patient Time: Total time managing care of this patient today ____ minutes. Quality Stroke Does the patient have a stroke diagnosis?: No VTE Prior VTE?: No VTE Risk Level:: Medical - moderate - high VTE Device Contraindication: Treatment Not Indicated VTE Drug Contraindication: N/A - Med Ordered
[2023-05-31 09:15] LABS: Vancomycin Random 14.2 mcg/mL (15-20)
--- NOTE | 2023-05-31 09:28 | HE.PHANOTE ---
VANCO DOSE ADJUSTMENT BASED ON scr and trough dose continued at 500 q 24. Next level 06/02 @ 0900
[2023-05-31] MEDS: vancomycin HCL 500 MG in 0.9 % Sodium Chloride 100 ML 110 MG IV (10:45)
--- NOTE | 2023-05-31 15:03 | PM.PNNEP ---
Subjective Subjective Date of Service: 05/31/23 Interval history: ongoing sepsis management Physical Exam Vital Signs: Vital Signs: Last Vital Signs Temp 97.9 F 05/31/23 08:00 Pulse 82 05/31/23 08:00 Resp 20 05/31/23 08:00 BP 122/77 05/31/23 08:00 Pulse Ox 97 05/31/23 08:00 O2 Del Method Room Air 05/31/23 08:00 O2 Flow Rate 4 05/28/23 19:56 BMI result Body Mass Index 24.7 Const: Orientation/consciousness: patient oriented x3 Chest: Chest palpation & inspection: normal inspection of the chest Resp: Auscultation: diminished lung sounds Cardio: Heart sounds: S1 normal heart sound present, S2 normal heart sound present, no gallops, Murmur heart sound present systolic II/ and at the right sternal border and no rubs GI: Palpation (GI): Soft to palpation Neuro: General: patient oriented x3 Extrem: Other: left arm abrasion ,soft cast Psych: Mental Status: mental status grossly normal Objective Data Labs 05/28/23 05:20 05/31/23 05:12 Labs: Laboratory Results - last 24 hr 05/31/23 05/31/23 05/31/23 03:25 03:25 05:12 Creatinine 2.54 H Estim Creat Clear Calc 19.6 Estimated GFR 19 Ur Random Sodium 34.0 Urine Creatinine 62.42 Random Vancomycin 05/31/23 08:47 Creatinine Estim Creat Clear Calc Estimated GFR Ur Random Sodium Urine Creatinine Random Vancomycin 14.2 L Microbiology Microbiology Results: Microbiology 05/28/23 00:06 Blood - Venous Blood Culture - Final Staphylococcus epidermidis Coag negative Staphylococcus 05/27/23 22:33 Blood - Venous Blood Culture - Final Staphylococcus epidermidis 05/29/23 19:13 Blood - Venous Blood Culture - Preliminary No growth after 24 hours. 05/29/23 19:13 Blood - Venous Blood Culture - Preliminary No growth after 24 hours. Procedures Date of Service Date of Service: 05/31/23 Assessment & Plan Assessment and plan (1) Acute on chronic diastolic (congestive) heart failure: Status: Acute (2) Atrial fibrillation with rapid ventricular response: Status: Acute (3) Atherosclerotic cardiovascular disease: Status: Acute (4) Open olecranon fracture: Status: Acute (5) Ulna fracture: Status: Acute (6) Bacteremia: Status: Acute Plan Ms. Nai Garcia is a 67-year-old female with pertinent history of multiple sclerosis, COPD not on home oxygen, paroxysmal atrial fibrillation on Eliquis, essential hypertension, coronary artery disease, hypothyroidism, congestive heart failure with preserved ejection fraction who presents to the emergency department for weakness, fall and gram positive cocci bacteremia. Course c/b SUSAN. 1. SUSAN on CKD BL Cr 1.4mg/dL Cr peak 2.5mg/dL Fena 1.0% Pre-renal Plan: - 0.9% saline matintenance IVF - watch vanco troughs. - no lasix - labs daily Time Spent With Patient Time: Total time managing care of this patient today ____ minutes. Progress Note: Quality Stroke Does the patient have a stroke diagnosis?: No
[2023-05-31 15:34] VITALS: BP 129/68; PULSE 82; RESP 17; TEMP 36.9; O2SAT 99
[2023-05-31 19:33] VITALS: BP 136/82; PULSE 100; RESP 17; TEMP 36.2; O2SAT 96
[2023-05-31] MEDS: Ferrous Sulfate 324 MG TABLET.DR PO (20:01)
[2023-05-31] MEDS: PARoxetine HCL 40 MG TABLET PO (20:01)
[2023-06-01] MEDS: Acetaminophen 325 MG TABLET 650 MG PO (00:05)
[2023-06-01] MEDS: traMADoL HCL 50 MG TABLET 25 MG PO ×2 (03:37→21:26)
--- NOTE | 2023-06-01 03:52 | PC.NURSE ---
patient refusing IVF at this time.
[2023-06-01 04:00] VITALS: BP 130/70; PULSE 80; RESP 20; TEMP 36.4; O2SAT 96
[2023-06-01 05:59] LABS: Creatinine Clr Calc Pharmacy 16.1; Estimated Glomerular Filt Rate 15
[2023-06-01] MEDS: Omeprazole 20 MG CAPSULE.DR PO (06:35)
[2023-06-01] MEDS: Levothyroxine Sodium 50 MCG TABLET PO (06:35)
[2023-06-01] MEDS: ondansetron HCL 4 MG/2 ML VIAL IVPUSH ×2 (06:41→14:09)
[2023-06-01 07:56] VITALS: BP 152/93; PULSE 82; RESP 18; TEMP 36.2; O2SAT 95
[2023-06-01] MEDS: Metoprolol Succinate ER 50 MG TAB.ER.24H PO (08:52)
[2023-06-01] MEDS: Clopidogrel Bisulfate 75 MG TABLET PO (08:52)
[2023-06-01] MEDS: Atorvastatin Calcium 80 MG TABLET PO (08:52)
[2023-06-01] MEDS: Cyanocobalamin (Vitamin B-12) 1,000 MCG TABLET 1000 MCG PO (08:52)
[2023-06-01] MEDS: oxyBUTYnin chloride 5 MG TABLET PO ×2 (08:52→21:26)
[2023-06-01] MEDS: Apixaban 5 MG TABLET PO ×2 (08:53→21:26)
[2023-06-01] MEDS: Cholecalciferol (Vitamin D3) 25 MCG TABLET PO (08:53)
[2023-06-01] MEDS: Amiodarone HCL 200 MG TABLET 400 MG PO ×2 (08:53→21:26)
[2023-06-01] MEDS: 0.9 % Sodium Chloride Flush 3 ML SYRINGE IVFLUSH ×2 (08:57→21:36)
--- NOTE | 2023-06-01 09:15 | HO.PM.IMPN ---
Subjective Subjective Date of Service: 06/02/23 Interval History: f/u on sepsis, heart failure, susan, afib interval history: susan worse refused iv overnight, Physical Exam Vital Signs: Vital Signs: Last Vital Signs Temp 97.2 F 06/01/23 07:56 Pulse 82 06/01/23 07:56 Resp 18 06/01/23 07:56 BP 152/93 H 06/01/23 07:56 Pulse Ox 95 06/01/23 07:56 O2 Del Method Room Air 06/01/23 07:56 O2 Flow Rate 4 05/28/23 19:56 BMI result Body Mass Index 24.7 Const: Other: General: AO X 3, no acute distress Resp: CTA bilateral CVS: S1,S2, iregular iregular GI: +BS, NT, no distention Skin: No rash ext: jo sling Neuro: motor grossly intact Psych: appropriate affect Objective Data Active Medications Acetaminophen (Acetaminophen 325 Mg Tablet) 650 mg PO Q6H PRN PRN Reason: Pain, Mild (Pain Scale 1-3) Last Admin: 06/01/23 00:05 Dose: 650 mg Documented By: BRYANT Albuterol Sulfate (Albuterol Sulfate 90 Mcg 8 Gm Inhaler) 2 puff INHALE Q4H PRN PRN Reason: shortness of breath or wheezing Amiodarone HCl (Amiodarone Hcl 200 Mg Tablet) 400 mg PO BID [facility] Stop: 06/06/23 10:29 Last Admin: 06/01/23 08:53 Dose: 400 mg Documented By: STUART Apixaban (Apixaban 5 Mg Tablet) 5 mg PO BID [facility] Last Admin: 06/01/23 08:53 Dose: 5 mg Documented By: STUART Atorvastatin Calcium (Atorvastatin Calcium 80 Mg Tablet) 80 mg PO DAILY [facility] Last Admin: 06/01/23 08:52 Dose: 80 mg Documented By: STUART Clopidogrel Bisulfate (Clopidogrel Bisulfate 75 Mg Tablet) 75 mg PO DAILY [facility] Last Admin: 06/01/23 08:52 Dose: 75 mg Documented By: STUART Cyanocobalamin (Cyanocobalamin (Vitamin B-12) 1,000 Mcg Tablet) 1,000 mcg PO DAILY [facility] Last Admin: 06/01/23 08:52 Dose: 1,000 mcg Documented By: STUART Ferrous Sulfate (Ferrous Sulfate 324 Mg Tablet.) 324 mg PO BEDTIME [facility] Last Admin: 05/31/23 20:01 Dose: 324 mg Documented By: BRYANT Sodium Chloride (Sodium Chloride 0.45 %) 1,000 mls @ 100 mls/hr IVCONT .Q10H [facility] Last Infusion: 06/01/23 08:15 Dose: 0 mls/hr Documented By: STUART Levothyroxine Sodium (Levothyroxine Sodium 50 Mcg Tablet) 50 mcg PO DAILY@0600 [facility] Last Admin: 06/01/23 06:35 Dose: 50 mcg Documented By: ALLAN Melatonin (Melatonin 3 Mg Tablet) 6 mg PO BEDTIME PRN PRN Reason: Insomnia Melatonin (Melatonin 3 Mg Tablet) 9 mg PO BEDTIME PRN PRN Reason: Insomnia Last Admin: 05/30/23 00:52 Dose: 9 mg Documented By: ERIC Metoprolol Succinate (Metoprolol Succinate Er 50 Mg Tab.Er.24h) 50 mg PO DAILY [facility]; Protocol Last Admin: 06/01/23 08:52 Dose: 50 mg Documented By: STUART Non-Formulary Medication (Interferon Beta-1a [Avonex]) 30 mcg IM TU [facility] Pt Own (Fluticasone Salmeterol 113/14 Mcg 1) 1 puff INHALE RBID [facility] Last Admin: 06/01/23 08:59 Dose: 1 puff Documented By: STUART Omeprazole (Omeprazole 20 Mg Capsule.) 20 mg PO DAILY@0630 [facility] Last Admin: 06/01/23 06:35 Dose: 20 mg Documented By: ALLAN Ondansetron HCl (Ondansetron Hcl 4 Mg/2 Ml Vial) 4 mg IVPUSH Q8H PRN PRN Reason: Nausea and Vomiting Last Admin: 06/01/23 06:41 Dose: 4 mg Documented By: ALLAN Oxybutynin Chloride (Oxybutynin Chloride 5 Mg Tablet) 5 mg PO BID [facility] Last Admin: 06/01/23 08:52 Dose: 5 mg Documented By: STUART Paroxetine HCl (Paroxetine Hcl 40 Mg Tablet) 40 mg PO BEDTIME [facility] Last Admin: 05/31/23 20:01 Dose: 40 mg Documented By: BRYANT Pharmacy Consult (Consult Rx Perform Med Rec) 1 each MISCELLANE ONCE PRN PRN Reason: Consult order Pharmacy Consult (Consult Rx Vancomycin Dosing) 1 each MISCELLANE DAILY PRN PRN Reason: Consult order Sodium Chloride (0.9 % Sodium Chloride Flush 3 Ml Syringe) 3 ml IVFLUSH QSHIFT [facility] Last Admin: 06/01/23 08:57 Dose: 3 ml Documented By: STUART Tramadol HCl (Tramadol Hcl 50 Mg Tablet) 25 mg PO Q6H PRN PRN Reason: Pain, Severe (Pain Scale 7-10) Last Admin: 06/01/23 03:37 Dose: 25 mg Documented By: ALLAN Vitamin D (Cholecalciferol (Vitamin D3) 25 Mcg Tablet) 25 mcg PO DAILY [facility] Last Admin: 06/01/23 08:53 Dose: 25 mcg Documented By: STUART Labs 05/28/23 05:20 06/01/23 05:24 Labs: Laboratory Results - last 24 hr 05/31/23 06/01/23 08:47 05:24 Estim Creat Clear Calc 16.1 Estimated GFR 15 Random Vancomycin 14.2 L Microbiology Microbiology Results: Microbiology 05/29/23 19:13 Blood Culture - Preliminary Blood - Venous No growth after 48 hours. 05/29/23 19:13 Blood Culture - Preliminary Blood - Venous No growth after 48 hours. 05/28/23 00:06 Blood Culture - Final Blood - Venous Staphylococcus epidermidis Coag negative Staphylococcus 05/27/23 22:33 Blood Culture - Final Blood - Venous Staphylococcus epidermidis Assessment and Plan (1) CHF (congestive heart failure): Status: Inactive (2) Bacteremia: Status: Acute (3) Acute UTI: Status: Acute Plan This is a 67-year-old female with pertinent history of multiple sclerosis, COPD not on home oxygen, paroxysmal atrial fibrillation on Eliquis, essential hypertension, coronary artery disease, hypothyroidism, congestive heart failure with preserved ejection fraction who presents to the emergency department for evaluation dyspnea and admitted for heart failure but now has gram positive cocci bacteremia #Staph Aureus sepsis/ bacteremia, source unclear, echo no venegations, suspects pneumonia Started Vanco 05/29, repeat cultures negative at 48 hour, ID recommending 4 to 6 weeks of IV Abx. DC vanco today 06/01, Start Kefzol 06/01 #.? Acute respiratory distress, likely due to acute exacerbation of diastolic heart failure.?Being treated for IV Lasix, but holding to due rising #.? Non displaced fracture of ulna.?Ortho recommends no intervention #.? Paroxysmal atrial fibrillation on Eliquis, give digoxin load yesterday, continue metoprolol , LVEF of 59% now LVEF 20-25%. She may need cardioversion, cardiology following. Started Amio loading 05/30 400 bid #.? Hypothyroidism on Synthroid #.? Mood disorder.? Continue home mood stabilizers #.? Coronary artery disease.? On antiplatelet, beta-allyson and high-intensity statin DVT prophylaxis:? Eliquis Full code need for inpatient: sespsis work up, treatment with IV Abx, SUSAN work and treatment with IVf She will likely need rehab at discharge Time Spent With Patient Time: Total time managing care of this patient today ____ minutes. Quality Stroke Does the patient have a stroke diagnosis?: No VTE Prior VTE?: No VTE Risk Level:: Medical - moderate - high VTE Device Contraindication: Treatment Not Indicated VTE Drug Contraindication: N/A - Med Ordered
[2023-06-01 09:36] LABS: Vancomycin Random 16.6 mcg/mL (15-20)
--- NOTE | 2023-06-01 12:11 | P.PNNP_ITS ---
Subjective Subjective Date of Service: 06/01/23 Interval history: GFR worsening Physical Exam Vital Signs: Vital Signs: Last Vital Signs Temp 97.2 F 06/01/23 07:56 Pulse 82 06/01/23 07:56 Resp 18 06/01/23 07:56 BP 152/93 H 06/01/23 07:56 Pulse Ox 95 06/01/23 07:56 O2 Del Method Room Air 06/01/23 07:56 O2 Flow Rate 4 05/28/23 19:56 BMI result Body Mass Index 24.7 Const: Orientation/consciousness: patient oriented x3 Chest: Chest palpation & inspection: normal inspection of the chest Resp: Auscultation: diminished lung sounds Cardio: Heart sounds: S1 normal heart sound present, S2 normal heart sound present, no gallops, Murmur heart sound present systolic II/ and at the right sternal border and no rubs GI: Palpation (GI): Soft to palpation Neuro: General: patient oriented x3 Extrem: Other: left arm abrasion ,soft cast Objective Data Labs 05/28/23 05:20 06/01/23 05:24 Labs: Laboratory Results - last 24 hr 06/01/23 06/01/23 05:24 08:51 Creatinine 3.08 H Estim Creat Clear Calc 16.1 Estimated GFR 15 Random Vancomycin 16.6 Microbiology Microbiology Results: Microbiology 05/29/23 19:13 Blood - Venous Blood Culture - Preliminary No growth after 48 hours. 05/29/23 19:13 Blood - Venous Blood Culture - Preliminary No growth after 48 hours. 05/28/23 00:06 Blood - Venous Blood Culture - Final Staphylococcus epidermidis Coag negative Staphylococcus 05/27/23 22:33 Blood - Venous Blood Culture - Final Staphylococcus epidermidis Procedures Date of Service Date of Service: 06/01/23 Assessment & Plan Assessment and plan (1) Acute on chronic diastolic (congestive) heart failure: Status: Acute (2) Atrial fibrillation with rapid ventricular response: Status: Acute (3) Atherosclerotic cardiovascular disease: Status: Acute (4) Open olecranon fracture: Status: Acute (5) Ulna fracture: Status: Acute (6) Bacteremia: Status: Acute Plan Ms. Nai Garcia is a 67-year-old female with pertinent history of multiple sclerosis, COPD not on home oxygen, paroxysmal atrial fibrillation on Eliquis, essential hypertension, coronary artery disease, hypothyroidism, congestive heart failure with preserved ejection fraction who presents to the emergency department for weakness, fall and gram positive cocci bacteremia. Course c/b SUSAN. 1. SUSAN on CKD BL Cr 1.4mg/dL Cr peak 2.5mg/dL Fena 1.0% Pre-renal Plan: - 0.9% saline matintenance IVF, but patient refused IVF yesterday - watch vanco troughs. - no lasix - labs daily incuding electrolytes. She is close to requiring [employer] Time Spent With Patient Time: Total time managing care of this patient today ____ minutes. Progress Note: Quality Stroke Does the patient have a stroke diagnosis?: No
--- NOTE | 2023-06-01 12:19 | PC.NURSE ---
pt still refusing IV fluids, Dr Vargas aware. When flushing IV before IV abx administration, IV site started leaking and pt complained that it was painful. This RN advised pt new IV site is needed, pt refused. Pt educated on need for IV antibiotics. Pt still refused. Dr Vargas made aware.
[2023-06-01] MEDS: ceFAZolin Sodium/Dextrose,Iso 2 GM/50 ML PIGGYBACK IV ×2 (14:09→21:31)
[2023-06-01] MEDS: Sodium Chloride 0.45 % 1,000 ML 100 ML IVCONT ×2 (14:52→21:34)
[2023-06-01] MEDS: Milk of Magnesia 30 ML ORAL.SUSP PO (15:34)
[2023-06-01] MEDS: polyethylene glycoL 3350 17 GM POWD.PACK PO (15:34)
[2023-06-01 15:38] VITALS: BP 138/91; PULSE 80; RESP 16; TEMP 36.1; O2SAT 97
[2023-06-01 20:17] VITALS: BP 130/70; PULSE 89; RESP 20; TEMP 36.4; O2SAT 94
[2023-06-01] MEDS: PARoxetine HCL 40 MG TABLET PO (21:26)
[2023-06-01] MEDS: Ferrous Sulfate 324 MG TABLET.DR PO (21:26)
[2023-06-01] MEDS: Docusate Sodium 100 MG CAPSULE PO (21:26)
[2023-06-02 03:18] VITALS: BP 130/81; PULSE 90; RESP 14; TEMP 36; O2SAT 97
[2023-06-02] MEDS: ondansetron HCL 4 MG/2 ML VIAL IVPUSH (05:07)
[2023-06-02] MEDS: ceFAZolin Sodium/Dextrose,Iso 2 GM/50 ML PIGGYBACK IV ×3 (05:10→21:41)
[2023-06-02 06:20] LABS: Creatinine Clr Calc Pharmacy 15.8; Estimated Glomerular Filt Rate 15
[2023-06-02 07:35] VITALS: BP 135/97; PULSE 84; RESP 16; TEMP 36.6; O2SAT 97
[2023-06-02 08:02] LABS: Anion Gap 24 (12-20); Blood Urea Nitrogen 48 mg/dL (9-16); Calcium 8.4 mg/dL (8.4-10.2); Carbon Dioxide 12 mmol/L (22-29); Chloride 104 mmol/L (96-108); Glucose Random 85 mg/dL (60-115); Potassium 4.9 mmol/L (3.3-5.1); Sodium 135 mmol/L (135-145)
[2023-06-02] MEDS: Metoprolol Succinate ER 50 MG TAB.ER.24H PO (08:07)
[2023-06-02] MEDS: Clopidogrel Bisulfate 75 MG TABLET PO (08:07)
[2023-06-02] MEDS: Cholecalciferol (Vitamin D3) 25 MCG TABLET PO (08:07)
[2023-06-02] MEDS: Cyanocobalamin (Vitamin B-12) 1,000 MCG TABLET 1000 MCG PO (08:07)
[2023-06-02] MEDS: traMADoL HCL 50 MG TABLET 25 MG PO ×2 (08:07→18:23)
[2023-06-02] MEDS: oxyBUTYnin chloride 5 MG TABLET PO ×2 (08:07→21:40)
[2023-06-02] MEDS: Atorvastatin Calcium 80 MG TABLET PO (08:07)
[2023-06-02] MEDS: Docusate Sodium 100 MG CAPSULE PO ×2 (08:08→21:40)
[2023-06-02] MEDS: Apixaban 5 MG TABLET PO ×2 (08:08→21:41)
--- NOTE | 2023-06-02 08:08 | HO.PM.IMPN ---
Subjective Subjective Date of Service: 06/02/23 Interval History: f/u on sepsis, heart failure, susan, afib interval history: Cr climbing, generally doesn't feel good, abdominal discomfort, had bm yesterday, swollen left hand Physical Exam Vital Signs: Vital Signs: Last Vital Signs Temp 97.8 F 06/02/23 07:35 Pulse 84 06/02/23 07:35 Resp 16 06/02/23 07:35 BP 135/97 H 06/02/23 07:35 Pulse Ox 97 06/02/23 07:35 O2 Del Method Room Air 06/02/23 07:35 O2 Flow Rate 4 05/28/23 19:56 BMI result Body Mass Index 24.7 Const: Other: General: AO X 3, no acute distress Resp: CTA bilateral CVS: S1,S2, iregular iregular GI: +BS, NT, no distention Skin: No rash, swollen left hand ext: jo sling Neuro: motor grossly intact Psych: appropriate affect Objective Data Active Medications Acetaminophen (Acetaminophen 325 Mg Tablet) 650 mg PO Q6H PRN PRN Reason: Pain, Mild (Pain Scale 1-3) Last Admin: 06/01/23 00:05 Dose: 650 mg Documented By: BRYANT Albuterol Sulfate (Albuterol Sulfate 90 Mcg 8 Gm Inhaler) 2 puff INHALE Q4H PRN PRN Reason: shortness of breath or wheezing Amiodarone HCl (Amiodarone Hcl 200 Mg Tablet) 400 mg PO BID [facility] Stop: 06/06/23 10:29 Last Admin: 06/01/23 21:26 Dose: 400 mg Documented By: CRISS Apixaban (Apixaban 5 Mg Tablet) 5 mg PO BID [facility] Last Admin: 06/01/23 21:26 Dose: 5 mg Documented By: CRISS Atorvastatin Calcium (Atorvastatin Calcium 80 Mg Tablet) 80 mg PO DAILY [facility] Last Admin: 06/01/23 08:52 Dose: 80 mg Documented By: STUART Clopidogrel Bisulfate (Clopidogrel Bisulfate 75 Mg Tablet) 75 mg PO DAILY [facility] Last Admin: 06/01/23 08:52 Dose: 75 mg Documented By: STUART Cyanocobalamin (Cyanocobalamin (Vitamin B-12) 1,000 Mcg Tablet) 1,000 mcg PO DAILY [facility] Last Admin: 06/01/23 08:52 Dose: 1,000 mcg Documented By: STUART Docusate Sodium (Docusate Sodium 100 Mg Capsule) 100 mg PO BID [facility] Last Admin: 06/01/23 21:26 Dose: 100 mg Documented By: CRISS Ferrous Sulfate (Ferrous Sulfate 324 Mg Tablet.) 324 mg PO BEDTIME [facility] Last Admin: 06/01/23 21:26 Dose: 324 mg Documented By: CRISS Cefazolin Sodium/Dextrose (Ancef) 2 gm in 50 mls @ 100 mls/hr IV Q8H [facility] Last Infusion: 06/02/23 05:45 Dose: 0 mls/hr Documented By: CRISS Levothyroxine Sodium (Levothyroxine Sodium 50 Mcg Tablet) 50 mcg PO DAILY@0600 [facility] Last Admin: 06/02/23 05:58 Dose: Not Given Documented By: CRISS Non-Admin Reason: Nausea Magnesium Hydroxide (Milk Of Magnesia 30 Ml Oral.Susp) 30 ml PO DAILY PRN PRN Reason: Constipation Last Admin: 06/01/23 15:34 Dose: 30 ml Documented By: STUART Melatonin (Melatonin 3 Mg Tablet) 6 mg PO BEDTIME PRN PRN Reason: Insomnia Melatonin (Melatonin 3 Mg Tablet) 9 mg PO BEDTIME PRN PRN Reason: Insomnia Last Admin: 05/30/23 00:52 Dose: 9 mg Documented By: ERIC Metoprolol Succinate (Metoprolol Succinate Er 50 Mg Tab.Er.24h) 50 mg PO DAILY [facility]; Protocol Last Admin: 06/01/23 08:52 Dose: 50 mg Documented By: STUART Non-Formulary Medication (Interferon Beta-1a [Avonex]) 30 mcg IM TU [facility] Pt Own (Fluticasone Salmeterol 113/14 Mcg 1) 1 puff INHALE RBID [facility] Last Admin: 06/01/23 22:13 Dose: Not Given Documented By: CRISS Non-Admin Reason: Patient Refused Omeprazole (Omeprazole 20 Mg Capsule.) 20 mg PO DAILY@0630 [facility] Last Admin: 06/02/23 05:58 Dose: Not Given Documented By: CRISS Non-Admin Reason: Nausea Ondansetron HCl (Ondansetron Hcl 4 Mg/2 Ml Vial) 4 mg IVPUSH Q8H PRN PRN Reason: Nausea and Vomiting Last Admin: 06/02/23 05:07 Dose: 4 mg Documented By: CRISS Oxybutynin Chloride (Oxybutynin Chloride 5 Mg Tablet) 5 mg PO BID [facility] Last Admin: 06/01/23 21:26 Dose: 5 mg Documented By: CRISS Paroxetine HCl (Paroxetine Hcl 40 Mg Tablet) 40 mg PO BEDTIME [facility] Last Admin: 06/01/23 21:26 Dose: 40 mg Documented By: CRISS Pharmacy Consult (Consult Rx Perform Med Rec) 1 each MISCELLANE ONCE PRN PRN Reason: Consult order Pharmacy Consult (Consult Rx Vancomycin Dosing) 1 each MISCELLANE DAILY PRN PRN Reason: Consult order Polyethylene Glycol (Polyethylene Glycol 3350 17 Gm Powd.Pack) 17 gm PO DAILY PRN PRN Reason: Constipation Last Admin: 06/01/23 15:34 Dose: 17 gm Documented By: STUART Sodium Chloride (0.9 % Sodium Chloride Flush 3 Ml Syringe) 3 ml IVFLUSH QSHIFT [facility] Last Admin: 06/01/23 21:36 Dose: 3 ml Documented By: CRISS Tramadol HCl (Tramadol Hcl 50 Mg Tablet) 25 mg PO Q6H PRN PRN Reason: Pain, Severe (Pain Scale 7-10) Last Admin: 06/01/23 21:26 Dose: 25 mg Documented By: CRISS Vitamin D (Cholecalciferol (Vitamin D3) 25 Mcg Tablet) 25 mcg PO DAILY [facility] Last Admin: 06/01/23 08:53 Dose: 25 mcg Documented By: STUART Labs 05/28/23 05:20 06/02/23 05:48 Labs: Laboratory Results - last 24 hr 06/01/23 06/02/23 08:51 05:48 Anion Gap 24 H Estim Creat Clear Calc 15.8 Estimated GFR 15 Random Glucose 85 Calcium 8.4 D Random Vancomycin 16.6 Assessment and Plan (1) CHF (congestive heart failure): Status: Inactive (2) Bacteremia: Status: Acute (3) Acute UTI: Status: Acute Plan This is a 67-year-old female with pertinent history of multiple sclerosis, COPD not on home oxygen, paroxysmal atrial fibrillation on Eliquis, essential hypertension, coronary artery disease, hypothyroidism, congestive heart failure with preserved ejection fraction who presents to the emergency department for evaluation dyspnea and admitted for heart failure but now has gram positive cocci bacteremia #Staph Aureus sepsis/ bacteremia, source unclear, echo no venegations, suspects pneumonia Started Vanco 05/29, repeat cultures negative at 48 hour, ID recommending 4 to 6 weeks of IV Abx. DC vanco today 06/01, Start Kefzol 06/01 #SUSAN--on CKD worse, ? ATN, sepsis, still worsening, stopped vanco (don't think related), IVF and renal guiding management #.? Acute respiratory distress, likely due to acute exacerbation of diastolic heart failure, presently compensated Lasix stopped d/t renal failure #.? Non displaced fracture of ulna.?Ortho recommends no intervention, swollen hand surgery to look at it #.? Paroxysmal atrial fibrillation on Eliquis, give digoxin load yesterday, continue metoprolol , LVEF of 59% now LVEF 20-25%. She may need cardioversion, cardiology following. Started Amio loading 05/30 400 bid #.? Hypothyroidism on Synthroid #.? Mood disorder.? Continue home mood stabilizers #.? Coronary artery disease.? On antiplatelet, beta-allyson and high-intensity statin DVT prophylaxis:? Eliquis Full code need for inpatient: sespsis work up, treatment with IV Abx, SUSAN work and treatment with IVf She will likely need rehab at discharge Time Spent With Patient Time: Total time managing care of this patient today ____ minutes. Quality Stroke Does the patient have a stroke diagnosis?: No VTE Prior VTE?: No VTE Risk Level:: Medical - moderate - high VTE Device Contraindication: Treatment Not Indicated VTE Drug Contraindication: N/A - Med Ordered
[2023-06-02] MEDS: Amiodarone HCL 200 MG TABLET 400 MG PO ×2 (08:09→21:41)
--- NOTE | 2023-06-02 08:42 | MHC.CM.PN ---
PT NOT YET CLEARED TO DC. DCP: [facility] ARE FOLLOWING UPDATES PROVIDED
--- NOTE | 2023-06-02 09:37 | PM.PNORT ---
Subjective Subjective Date of Service: 06/02/23 Interval history: Patient is resting in bed. LUE in sling. Reports pain in the LUE is managed. C/o significant swelling in the left hand. Is able to move all digits. Denies numbness or tingling . Physical Exam Vital Signs: Vital Signs: Last Vital Signs Temp 97.8 F 06/02/23 07:35 Pulse 84 06/02/23 07:35 Resp 16 06/02/23 07:35 BP 135/97 H 06/02/23 07:35 Pulse Ox 97 06/02/23 07:35 O2 Del Method Room Air 06/02/23 07:35 O2 Flow Rate 4 05/28/23 19:56 BMI result Body Mass Index 24.7 Extrem: Other: LUE SILVIA intact. Appropriate fitting. Sling appropriately fitted. Able to flex and extend all digits. Lacking about 2cm from a closed fist. Sensation intact. Capillary refill is brisk. Procedures Date of Service Date of Service: 06/02/23 Progress Note: A&P Assessment and plan (1) Acute on chronic diastolic (congestive) heart failure: Status: Acute Assessment and Plan: Continue pain management Sling as needed for comfort Encourage hand ROM with exercises demonstrated at bedside Elevation No additional orthopedic intervention needed at this time (2) CHF exacerbation: Status: Acute (3) Ulna fracture: Status: Acute Time Spent With Patient Time: Total time managing care of this patient today ____ minutes. Quality Stroke Does the patient have a stroke diagnosis?: No VTE Prior VTE?: No VTE Risk Level:: Medical - moderate - high VTE Device Contraindication: Treatment Not Indicated VTE Drug Contraindication: N/A - Med Ordered
[2023-06-02 09:51] LABS: Vancomycin Random 13.2 mcg/mL (15-20)
--- NOTE | 2023-06-02 10:21 | PM.PNNEP ---
Subjective Subjective Date of Service: 06/03/23 Interval history: Events noted. Ultrasonogram shows [id number] bilateral hydronephrosis. Physical Exam Vital Signs: Vital Signs: Last Vital Signs Temp 97.8 F 06/02/23 07:35 Pulse 84 06/02/23 07:35 Resp 16 06/02/23 07:35 BP 135/97 H 06/02/23 07:35 Pulse Ox 97 06/02/23 07:35 O2 Del Method Room Air 06/02/23 07:35 O2 Flow Rate 4 05/28/23 19:56 BMI result Body Mass Index 24.7 Const: Orientation/consciousness: patient oriented x3 Chest: Chest palpation & inspection: normal inspection of the chest Resp: Auscultation: diminished lung sounds Cardio: Heart sounds: S1 normal heart sound present, S2 normal heart sound present, no gallops, Murmur heart sound present systolic II/ and at the right sternal border and no rubs GI: Palpation (GI): Soft to palpation Neuro: General: patient oriented x3 Extrem: Other: left arm abrasion ,soft cast Objective Data Labs 05/28/23 05:20 06/02/23 05:48 Labs: Laboratory Results - last 24 hr 06/02/23 06/02/23 05:48 09:05 Sodium 135 Potassium 4.9 D Chloride 104 Carbon Dioxide 12 L Anion Gap 24 H BUN 48 H Creatinine 3.14 H Estim Creat Clear Calc 15.8 Estimated GFR 15 Random Glucose 85 Calcium 8.4 D Random Vancomycin 13.2 L Microbiology Microbiology Results: Microbiology 05/29/23 19:13 Blood - Venous Blood Culture - Preliminary No growth after 48 hours. 05/29/23 19:13 Blood - Venous Blood Culture - Preliminary No growth after 48 hours. 05/28/23 00:06 Blood - Venous Blood Culture - Final Staphylococcus epidermidis Coag negative Staphylococcus 05/27/23 22:33 Blood - Venous Blood Culture - Final Staphylococcus epidermidis Procedures Date of Service Date of Service: 06/03/23 Assessment & Plan Assessment and plan (1) Acute on chronic diastolic (congestive) heart failure: Status: Acute (2) Atrial fibrillation with rapid ventricular response: Status: Acute (3) Atherosclerotic cardiovascular disease: Status: Acute (4) Open olecranon fracture: Status: Acute (5) Ulna fracture: Status: Acute (6) Bacteremia: Status: Acute Plan Ms. Nai Garcia is a 67-year-old woman with multiple sclerosis, COPD not on home oxygen, paroxysmal atrial fibrillation on Eliquis, essential hypertension, coronary artery disease, hypothyroidism, congestive heart failure with preserved ejection fraction who presents to the emergency department for weakness, fall and gram positive cocci bacteremia. Course c/b SUSAN. 1. SUSAN on CKD BL Cr 1.4mg/dL Cr peak 2.5mg/dL Fena 1.0% Ultrasonogram shows bilateral hydronephrosis. Plan: - keep 0.9% saline matintenance IVF, Await CT scan today. Needs urology evaluation to address bilateral hydronephrosis. - watch vanco troughs. - no lasix No absolute indication for dialysis Time Spent With Patient Time: Total time managing care of this patient today ____ minutes. Progress Note: Quality Stroke Does the patient have a stroke diagnosis?: No
[2023-06-02] MEDS: Barium Sulfate Oral (Vanilla) 450 ML ORAL.SUSP PO (10:41)
--- NOTE | 2023-06-02 14:51 | PC.NURSE ---
Addendum entered by Efren Lewis RN 06/02/23 20:23: at ~1414 went in to check pt and there was 700cc gross hematuria output from mahoney. Dr. Vargas notified and verbal order to hand irrigate to check for clots and if hematuria persist start CBI. Mahoney hand irrigated/flushed and one large clot expelled, urine was light pink. Went to recheck pt at change of shift and 400cc gross hematuria. Attempted to insert 20g 3way cath to initiate CBI, unsucessful in placing mahoney. Night BILLIE Jerez present and aware, will attempt to find smaller 3way cath and start CBI Original Note: 16Fr mahoney cath placed using sterile technique at ~1330. Pt tolerated well, 900cc of dark yellow urine output
[2023-06-02] MEDS: 0.9 % Sodium Chloride Flush 3 ML SYRINGE IVFLUSH (15:26)
[2023-06-02 16:00] VITALS: BP 154/72; PULSE 54; RESP 18; TEMP 35.8; O2SAT 97
[2023-06-02] MEDS: Acetaminophen 325 MG TABLET 650 MG PO (18:23)
[2023-06-02 20:00] VITALS: BP 141/67; PULSE 90; RESP 18; TEMP 36.6; O2SAT 97
[2023-06-02] MEDS: PARoxetine HCL 40 MG TABLET PO (21:40)
[2023-06-02] MEDS: Ferrous Sulfate 324 MG TABLET.DR PO (21:41)
--- NOTE | 2023-06-02 22:48 | PM.EVENT ---
Event Note Date of Service: 06/02/23 Event Note: Patient has significant hematuria. At [address] way Hou catheter was attempted by 3 different nurses, failed, finally 1 was successfully inserted but started leaking. At this point patient is refusing to have another Hou catheter inserted. At this time will leave the Hou catheter draining, urology is already consulted. Time Spent With Patient Time: Total time managing care of this patient today ____ minutes.
[2023-06-03 03:35] VITALS: BP 137/79; PULSE 98; RESP 16; TEMP 36.5; O2SAT 97
[2023-06-03] MEDS: Omeprazole 20 MG CAPSULE.DR PO (06:23)
[2023-06-03] MEDS: Levothyroxine Sodium 50 MCG TABLET PO (06:23)
[2023-06-03] MEDS: ceFAZolin Sodium/Dextrose,Iso 2 GM/50 ML PIGGYBACK IV ×3 (06:23→21:21)
[2023-06-03 06:42] LABS: Creatinine Clr Calc Pharmacy 19.5; Estimated Glomerular Filt Rate 19
[2023-06-03 08:00] VITALS: BP 157/74; PULSE 90; RESP 17; TEMP 36.3; O2SAT 100
--- NOTE | 2023-06-03 08:01 | P.PNIM_ITS ---
Subjective Subjective Date of Service: 06/03/23 Interval History: f/u on sepsis, heart failure, susan, afib interval history: Cr better, CT yesterday show hydronephrosis, folaty inserted with clear urine of about 1000 cc, then later developped hematuria and started on CBI which is clearing, overall feels better, has nausea this morning Physical Exam Vital Signs: Vital Signs: Last Vital Signs Temp 97.7 F 06/03/23 03:35 Pulse 98 06/03/23 03:35 Resp 16 06/03/23 03:35 BP 137/79 06/03/23 03:35 Pulse Ox 97 06/03/23 03:35 O2 Del Method Room Air 06/03/23 03:35 O2 Flow Rate 4 05/28/23 19:56 BMI result Body Mass Index 24.7 Const: Other: General: AO X 3, no acute distress Resp: CTA bilateral CVS: S1,S2, iregular iregular GI: +BS, NT, no distention Skin: No rash, swollen left hand, no redness, ext: jo sling Neuro: motor grossly intact Psych: appropriate affect Objective Data Active Medications Acetaminophen (Acetaminophen 325 Mg Tablet) 650 mg PO Q6H PRN PRN Reason: Pain, Mild (Pain Scale 1-3) Last Admin: 06/02/23 18:23 Dose: 650 mg Documented By: WESLY Albuterol Sulfate (Albuterol Sulfate 90 Mcg 8 Gm Inhaler) 2 puff INHALE Q4H PRN PRN Reason: shortness of breath or wheezing Amiodarone HCl (Amiodarone Hcl 200 Mg Tablet) 400 mg PO BID [facility] Stop: 06/06/23 10:29 Last Admin: 06/02/23 21:41 Dose: 400 mg Documented By: MARTIR Apixaban (Apixaban 5 Mg Tablet) 5 mg PO BID [facility] Last Admin: 06/02/23 21:41 Dose: 5 mg Documented By: MARTIR Atorvastatin Calcium (Atorvastatin Calcium 80 Mg Tablet) 80 mg PO DAILY [facility] Last Admin: 06/02/23 08:07 Dose: 80 mg Documented By: WESLY Clopidogrel Bisulfate (Clopidogrel Bisulfate 75 Mg Tablet) 75 mg PO DAILY [facility] Last Admin: 06/02/23 08:07 Dose: 75 mg Documented By: WESLY Cyanocobalamin (Cyanocobalamin (Vitamin B-12) 1,000 Mcg Tablet) 1,000 mcg PO DAILY [facility] Last Admin: 06/02/23 08:07 Dose: 1,000 mcg Documented By: WESLY Docusate Sodium (Docusate Sodium 100 Mg Capsule) 100 mg PO BID [facility] Last Admin: 06/02/23 21:40 Dose: 100 mg Documented By: MARTIR Ferrous Sulfate (Ferrous Sulfate 324 Mg Tablet.) 324 mg PO BEDTIME [facility] Last Admin: 06/02/23 21:41 Dose: 324 mg Documented By: MARTIR Cefazolin Sodium/Dextrose (Ancef) 2 gm in 50 mls @ 100 mls/hr IV Q8H [facility] Last Infusion: 06/03/23 07:24 Dose: 0 mls/hr Documented By: JESSI Levothyroxine Sodium (Levothyroxine Sodium 50 Mcg Tablet) 50 mcg PO DAILY@0600 [facility] Last Admin: 06/03/23 06:23 Dose: 50 mcg Documented By: MARTIR Magnesium Hydroxide (Milk Of Magnesia 30 Ml Oral.Susp) 30 ml PO DAILY PRN PRN Reason: Constipation Last Admin: 06/01/23 15:34 Dose: 30 ml Documented By: STUART Melatonin (Melatonin 3 Mg Tablet) 6 mg PO BEDTIME PRN PRN Reason: Insomnia Melatonin (Melatonin 3 Mg Tablet) 9 mg PO BEDTIME PRN PRN Reason: Insomnia Last Admin: 05/30/23 00:52 Dose: 9 mg Documented By: ERIC Metoprolol Succinate (Metoprolol Succinate Er 50 Mg Tab.Er.24h) 50 mg PO DAILY [facility]; Protocol Last Admin: 06/02/23 08:07 Dose: 50 mg Documented By: WESLY Non-Formulary Medication (Interferon Beta-1a [Avonex]) 30 mcg IM TU [facility] Pt Own (Fluticasone Salmeterol 113/14 Mcg 1) 1 puff INHALE RBID [facility] Last Admin: 06/02/23 23:04 Dose: Not Given Documented By: MARTIR Non-Admin Reason: Patient Refused Omeprazole (Omeprazole 20 Mg Capsule.) 20 mg PO DAILY@0630 [facility] Last Admin: 06/03/23 06:23 Dose: 20 mg Documented By: MARTIR Ondansetron HCl (Ondansetron Hcl 4 Mg/2 Ml Vial) 4 mg IVPUSH Q8H PRN PRN Reason: Nausea and Vomiting Last Admin: 06/02/23 05:07 Dose: 4 mg Documented By: CRISS Oxybutynin Chloride (Oxybutynin Chloride 5 Mg Tablet) 5 mg PO BID [facility] Last Admin: 06/02/23 21:40 Dose: 5 mg Documented By: MARTIR Paroxetine HCl (Paroxetine Hcl 40 Mg Tablet) 40 mg PO BEDTIME [facility] Last Admin: 06/02/23 21:40 Dose: 40 mg Documented By: MARTIR Pharmacy Consult (Consult Rx Perform Med Rec) 1 each MISCELLANE ONCE PRN PRN Reason: Consult order Pharmacy Consult (Consult Rx Vancomycin Dosing) 1 each MISCELLANE DAILY PRN PRN Reason: Consult order Polyethylene Glycol (Polyethylene Glycol 3350 17 Gm Powd.Pack) 17 gm PO DAILY PRN PRN Reason: Constipation Last Admin: 06/01/23 15:34 Dose: 17 gm Documented By: STUART Sodium Chloride (0.9 % Sodium Chloride Flush 3 Ml Syringe) 3 ml IVFLUSH QSHIFT [facility] Last Admin: 06/03/23 01:25 Dose: Not Given Documented By: MARTIR Non-Admin Reason: Previously Administered Tramadol HCl (Tramadol Hcl 50 Mg Tablet) 25 mg PO Q6H PRN PRN Reason: Pain, Severe (Pain Scale 7-10) Last Admin: 06/02/23 18:23 Dose: 25 mg Documented By: WESLY Vitamin D (Cholecalciferol (Vitamin D3) 25 Mcg Tablet) 25 mcg PO DAILY [facility] Last Admin: 06/02/23 08:07 Dose: 25 mcg Documented By: WESLY Labs 05/28/23 05:20 06/03/23 05:46 Labs: Laboratory Results - last 24 hr 06/02/23 06/02/23 06/03/23 05:48 09:05 05:46 Anion Gap 24 H Estim Creat Clear Calc 19.5 Estimated GFR 19 Random Glucose 85 Calcium 8.4 D Random Vancomycin 13.2 L Assessment and Plan (1) CHF (congestive heart failure): Status: Inactive (2) Bacteremia: Status: Acute (3) Acute UTI: Status: Acute Plan This is a 67-year-old female with pertinent history of multiple sclerosis, COPD not on home oxygen, paroxysmal atrial fibrillation on Eliquis, essential hypertension, coronary artery disease, hypothyroidism, congestive heart failure with preserved ejection fraction who presents to the emergency department for evaluation dyspnea and admitted for heart failure but now has gram positive cocci bacteremia #Staph Aureus (MSSA) sepsis/ bacteremia, source unclear, echo no venegations, suspects pneumonia Started Vanco 05/29, DC'd vanco on 06/01 , Started Kefzol 06/01, repeat cultures negative at 48 hour will need PICC line once renal function restored #SUSAN--on CKD worse, ? ATN, sepsis, still worsening, stopped vanco (don't think related), renal US showed bilateral hydronephrosis, confirmed on CT, treated with IVF, Mahoney catheter, renal function is now downtrending #Hematuria after mahoney insertion 06/02 with high output, likely from bladder spasm from rapid decompression, CBI is clearing, Uro consult pending. hold Eliquis #.? Acute respiratory distress, likely due to acute exacerbation of diastolic heart failure, presently compensated Lasix stopped d/t renal failure #.? Non displaced fracture of ulna.?Ortho recommends no intervention, swollen hand, ortho recommends no further action #.? Paroxysmal atrial fibrillation on Eliquis, received one time dig load, continue metoprolol , LVEF of 59% now LVEF 20-25%. She may need cardioversion, cardiology following. Started Amio loading 05/30 400 bid , holding eliquis today due to hamturia #.? Hypothyroidism on Synthroid #.? Mood disorder.? Continue home mood stabilizers #.? Coronary artery disease.? On antiplatelet, beta-allyson and high-intensity statin DVT prophylaxis:? Eliquis on hold, add compression device Full code need for inpatient: sespsis work up, treatment with IV Abx, SUSAN work and treatment with IVf She will likely need rehab at discharge Time Spent With Patient Time: Total time managing care of this patient today ____ minutes. Quality Stroke Does the patient have a stroke diagnosis?: No VTE Prior VTE?: No VTE Risk Level:: Medical - moderate - high VTE Device Contraindication: Treatment Not Indicated VTE Drug Contraindication: N/A - Med Ordered
[2023-06-03 08:11] LABS: Anion Gap 14 (12-20); Blood Urea Nitrogen 47 mg/dL (9-16); Calcium 8.9 mg/dL (8.4-10.2); Carbon Dioxide 23 mmol/L (22-29); Chloride 105 mmol/L (96-108); Glucose Random 76 mg/dL (60-115); Sodium 138 mmol/L (135-145)
[2023-06-03] MEDS: Atorvastatin Calcium 80 MG TABLET PO (08:23)
[2023-06-03] MEDS: oxyBUTYnin chloride 5 MG TABLET PO ×2 (08:24→21:21)
[2023-06-03] MEDS: Amiodarone HCL 200 MG TABLET 400 MG PO ×2 (08:25→21:21)
[2023-06-03] MEDS: ondansetron HCL 4 MG/2 ML VIAL IVPUSH ×2 (08:25→22:45)
[2023-06-03] MEDS: Cyanocobalamin (Vitamin B-12) 1,000 MCG TABLET 1000 MCG PO (08:27)
[2023-06-03] MEDS: Metoprolol Succinate ER 50 MG TAB.ER.24H PO (08:27)
[2023-06-03] MEDS: Clopidogrel Bisulfate 75 MG TABLET PO (08:27)
[2023-06-03] MEDS: Docusate Sodium 100 MG CAPSULE PO ×2 (08:28→21:21)
[2023-06-03] MEDS: Cholecalciferol (Vitamin D3) 25 MCG TABLET PO (08:28)
--- NOTE | 2023-06-03 10:26 | PM.PNNEP ---
Subjective Subjective Date of Service: 06/04/23 Interval history: Events noted. Hou inserted. Now with hematuria and receiving CBI Physical Exam Vital Signs: Vital Signs: Last Vital Signs Temp 97.4 F 06/03/23 08:00 Pulse 90 06/03/23 08:00 Resp 17 06/03/23 08:00 BP 157/74 H 06/03/23 08:00 Pulse Ox 100 06/03/23 08:00 O2 Del Method Room Air 06/03/23 08:00 O2 Flow Rate 4 05/28/23 19:56 BMI result Body Mass Index 24.7 Const: Orientation/consciousness: patient oriented x3 Chest: Chest palpation & inspection: normal inspection of the chest Resp: Auscultation: diminished lung sounds Cardio: Heart sounds: S1 normal heart sound present, S2 normal heart sound present, no gallops, Murmur heart sound present systolic II/ and at the right sternal border and no rubs GI: Palpation (GI): Soft to palpation Neuro: General: patient oriented x3 Extrem: Other: left arm abrasion ,soft cast Objective Data Labs 05/28/23 05:20 06/03/23 05:46 Labs: Laboratory Results - last 24 hr 06/03/23 05:46 Sodium 138 Potassium 4.0 Chloride 105 Carbon Dioxide 23 Anion Gap 14 BUN 47 H Creatinine 2.55 H Estim Creat Clear Calc 19.5 Estimated GFR 19 Random Glucose 76 Calcium 8.9 Microbiology Microbiology Results: Microbiology 05/29/23 19:13 Blood - Venous Blood Culture - Preliminary No growth after 48 hours. 05/29/23 19:13 Blood - Venous Blood Culture - Preliminary No growth after 48 hours. 05/28/23 00:06 Blood - Venous Blood Culture - Final Staphylococcus epidermidis Coag negative Staphylococcus 05/27/23 22:33 Blood - Venous Blood Culture - Final Staphylococcus epidermidis Procedures Date of Service Date of Service: 06/04/23 Assessment & Plan Assessment and plan (1) Acute on chronic diastolic (congestive) heart failure: Status: Acute (2) Atrial fibrillation with rapid ventricular response: Status: Acute (3) Atherosclerotic cardiovascular disease: Status: Acute (4) Open olecranon fracture: Status: Acute (5) Ulna fracture: Status: Acute (6) Bacteremia: Status: Acute Plan Ms. Nai Garcia is a 67-year-old woman with multiple sclerosis, COPD not on home oxygen, paroxysmal atrial fibrillation on Eliquis, essential hypertension, coronary artery disease, hypothyroidism, congestive heart failure with preserved ejection fraction who presents to the emergency department for weakness, fall and gram positive cocci bacteremia. Course c/b SUSAN. 1. SUSAN on CKD BL Cr 1.4mg/dL Cr peak 2.5mg/dL Fena 1.0% Ultrasonogram shows bilateral hydronephrosis. Hou inserted. Currently nonoliguric. She has hematuria receiving CBI. CT concerning for malignancy. Plan: Keep Hou. Keep intake more than the output. Needs urology evaluation to address bladder outlet obstruction in this elderly woman. - watch vanco troughs. - no lasix No absolute indication for dialysis Time Spent With Patient Time: Total time managing care of this patient today ____ minutes. Progress Note: Quality Stroke Does the patient have a stroke diagnosis?: No
[2023-06-03 15:42] VITALS: BP 145/70; PULSE 89; RESP 18; TEMP 35.8; O2SAT 100
[2023-06-03] MEDS: 0.9 % Sodium Chloride Flush 3 ML SYRINGE IVFLUSH (16:25)
[2023-06-03 19:58] VITALS: BP 139/68; PULSE 85; RESP 18; TEMP 36.2; O2SAT 99
[2023-06-03] MEDS: PARoxetine HCL 40 MG TABLET PO (21:21)
[2023-06-03] MEDS: Ferrous Sulfate 324 MG TABLET.DR PO (21:21)
[2023-06-04 03:58] VITALS: BP 125/77; PULSE 80; RESP 18; TEMP 36.2; O2SAT 99
[2023-06-04] MEDS: Levothyroxine Sodium 50 MCG TABLET PO (06:16)
[2023-06-04] MEDS: Omeprazole 20 MG CAPSULE.DR PO (06:16)
[2023-06-04] MEDS: ceFAZolin Sodium/Dextrose,Iso 2 GM/50 ML PIGGYBACK IV ×3 (06:16→21:40)
[2023-06-04 07:54] VITALS: BP 134/85; PULSE 82; RESP 18; TEMP 36; O2SAT 97
--- NOTE | 2023-06-04 08:03 | PM.PNORT ---
Subjective Subjective Date of Service: 06/04/23 Interval history: Consult placed for left hip pain. Patient reports pain located over the posterior - lateral aspect of her hip. She reports that she fell landing on the left side and has had pain in her hip since. A CT was obtained and she was found to have a hematoma but no hip fracture was noted. Physical Exam Vital Signs: Vital Signs: Last Vital Signs Temp 96.8 F 06/04/23 07:54 Pulse 82 06/04/23 07:54 Resp 18 06/04/23 07:54 BP 134/85 06/04/23 07:54 Pulse Ox 97 06/04/23 07:54 O2 Del Method Room Air 06/04/23 07:54 O2 Flow Rate 4 05/28/23 19:56 BMI result Body Mass Index 24.7 Const: General: cooperative, healthy appearing and no acute distress Resp: Effort & Inspection: normal respiratory effort and able to speak in complete sentences Cardio: Rate: regular rate Peripheral pulses: Peripheral pulses 2+ throughout GI: Palpation (GI): Soft to palpation Skin: Lesions: no lesions Rashes: no rashes Extrem: Other: Left hip hematoma posterolateral. Tenderness to palpation over this area. Able to perform SLR. No pain with passive ROM or log roll. NVI. Procedures Date of Service Date of Service: 06/04/23 Progress Note: A&P Assessment and plan (1) Contusion of left hip: Status: Acute Plan Pain management as appropriate CT scan obtained on 05/27/23 reviewed and negative for any acute fracture or dislocation. Significant for hematoma. WBAT No additional orthopedic intervention needed at this time. Time Spent With Patient Time: Total time managing care of this patient today ____ minutes. Quality Stroke Does the patient have a stroke diagnosis?: No VTE Prior VTE?: No VTE Risk Level:: Medical - moderate - high VTE Device Contraindication: Treatment Not Indicated VTE Drug Contraindication: N/A - Med Ordered
[2023-06-04] MEDS: Atorvastatin Calcium 80 MG TABLET PO (08:52)
[2023-06-04] MEDS: Metoprolol Succinate ER 50 MG TAB.ER.24H PO (08:52)
[2023-06-04] MEDS: Amiodarone HCL 200 MG TABLET 400 MG PO ×2 (08:52→20:51)
[2023-06-04] MEDS: oxyBUTYnin chloride 5 MG TABLET PO ×2 (08:52→20:52)
[2023-06-04] MEDS: Cyanocobalamin (Vitamin B-12) 1,000 MCG TABLET 1000 MCG PO (08:52)
[2023-06-04] MEDS: Cholecalciferol (Vitamin D3) 25 MCG TABLET PO (08:53)
[2023-06-04] MEDS: Docusate Sodium 100 MG CAPSULE PO ×2 (08:53→20:52)
--- NOTE | 2023-06-04 08:54 | HO.PM.IMPN ---
Subjective Subjective Date of Service: 06/04/23 Interval History: Feels a bit better, reportedly refused cbc draw yesterday, residual hematuria, eliquis on hold Review of Systems left thigh pain and headache Physical Exam Vital Signs: Vital Signs: Last Vital Signs Temp 96.8 F 06/04/23 07:54 Pulse 82 06/04/23 07:54 Resp 18 06/04/23 07:54 BP 134/85 06/04/23 07:54 Pulse Ox 97 06/04/23 07:54 O2 Del Method Room Air 06/04/23 07:54 O2 Flow Rate 4 05/28/23 19:56 BMI result Body Mass Index 24.7 Const: Other: General: AO X 3, no acute distress Resp: CTA bilateral CVS: S1,S2, iregular iregular GI: +BS, NT, no distention Skin: No rash, swollen left hand, no redness, ext: jo sling Neuro: motor grossly intact Psych: appropriate affect Objective Data Active Medications Acetaminophen (Acetaminophen 325 Mg Tablet) 650 mg PO Q6H PRN PRN Reason: Pain, Mild (Pain Scale 1-3) Last Admin: 06/02/23 18:23 Dose: 650 mg Documented By: WESLY Albuterol Sulfate (Albuterol Sulfate 90 Mcg 8 Gm Inhaler) 2 puff INHALE Q4H PRN PRN Reason: shortness of breath or wheezing Amiodarone HCl (Amiodarone Hcl 200 Mg Tablet) 400 mg PO BID [facility] Stop: 06/06/23 10:29 Last Admin: 06/03/23 21:21 Dose: 400 mg Documented By: MARTIR Atorvastatin Calcium (Atorvastatin Calcium 80 Mg Tablet) 80 mg PO DAILY [facility] Last Admin: 06/03/23 08:23 Dose: 80 mg Documented By: JESSI Cyanocobalamin (Cyanocobalamin (Vitamin B-12) 1,000 Mcg Tablet) 1,000 mcg PO DAILY [facility] Last Admin: 06/03/23 08:27 Dose: 1,000 mcg Documented By: JESSI Docusate Sodium (Docusate Sodium 100 Mg Capsule) 100 mg PO BID [facility] Last Admin: 06/03/23 21:21 Dose: 100 mg Documented By: MARTIR Ferrous Sulfate (Ferrous Sulfate 324 Mg Tablet.) 324 mg PO BEDTIME [facility] Last Admin: 06/03/23 21:21 Dose: 324 mg Documented By: MARTIR Cefazolin Sodium/Dextrose (Ancef) 2 gm in 50 mls @ 100 mls/hr IV Q8H [facility] Last Infusion: 06/04/23 07:03 Dose: 0 mls/hr Documented By: RENU Levothyroxine Sodium (Levothyroxine Sodium 50 Mcg Tablet) 50 mcg PO DAILY@0600 [facility] Last Admin: 06/04/23 06:16 Dose: 50 mcg Documented By: MARTIR Magnesium Hydroxide (Milk Of Magnesia 30 Ml Oral.Susp) 30 ml PO DAILY PRN PRN Reason: Constipation Last Admin: 06/01/23 15:34 Dose: 30 ml Documented By: STUART Melatonin (Melatonin 3 Mg Tablet) 6 mg PO BEDTIME PRN PRN Reason: Insomnia Melatonin (Melatonin 3 Mg Tablet) 9 mg PO BEDTIME PRN PRN Reason: Insomnia Last Admin: 05/30/23 00:52 Dose: 9 mg Documented By: ERIC Metoprolol Succinate (Metoprolol Succinate Er 50 Mg Tab.Er.24h) 50 mg PO DAILY [facility]; Protocol Last Admin: 06/03/23 08:27 Dose: 50 mg Documented By: JESSI Non-Formulary Medication (Interferon Beta-1a [Avonex]) 30 mcg IM TU [facility] Pt Own (Fluticasone Salmeterol 113/14 Mcg 1) 1 puff INHALE RBID [facility] Last Admin: 06/03/23 21:42 Dose: Not Given Documented By: MARTIR Non-Admin Reason: Patient Refused Omeprazole (Omeprazole 20 Mg Emmett.) 20 mg PO DAILY@0630 [facility] Last Admin: 06/04/23 06:16 Dose: 20 mg Documented By: MARTIR Ondansetron HCl (Ondansetron Hcl 4 Mg/2 Ml Vial) 4 mg IVPUSH Q8H PRN PRN Reason: Nausea and Vomiting Last Admin: 06/03/23 22:45 Dose: 4 mg Documented By: MARTIR Oxybutynin Chloride (Oxybutynin Chloride 5 Mg Tablet) 5 mg PO BID [facility] Last Admin: 06/03/23 21:21 Dose: 5 mg Documented By: MARTIR Paroxetine HCl (Paroxetine Hcl 40 Mg Tablet) 40 mg PO BEDTIME [facility] Last Admin: 06/03/23 21:21 Dose: 40 mg Documented By: MARTIR Pharmacy Consult (Consult Rx Perform Med Rec) 1 each MISCELLANE ONCE PRN PRN Reason: Consult order Pharmacy Consult (Consult Rx Vancomycin Dosing) 1 each MISCELLANE DAILY PRN PRN Reason: Consult order Polyethylene Glycol (Polyethylene Glycol 3350 17 Gm Powd.Pack) 17 gm PO DAILY PRN PRN Reason: Constipation Last Admin: 06/01/23 15:34 Dose: 17 gm Documented By: STUART Sodium Chloride (0.9 % Sodium Chloride Flush 3 Ml Syringe) 3 ml IVFLUSH QSHIFT [facility] Last Admin: 06/04/23 02:25 Dose: Not Given Documented By: MARTIR Non-Admin Reason: Previously Administered Tramadol HCl (Tramadol Hcl 50 Mg Tablet) 25 mg PO Q6H PRN PRN Reason: Pain, Severe (Pain Scale 7-10) Last Admin: 06/02/23 18:23 Dose: 25 mg Documented By: WESLY Vitamin D (Cholecalciferol (Vitamin D3) 25 Mcg Tablet) 25 mcg PO DAILY [facility] Last Admin: 06/03/23 08:28 Dose: 25 mcg Documented By: JESSI Labs 05/28/23 05:20 06/03/23 05:46 Microbiology Microbiology Results: Microbiology 05/29/23 19:13 Blood Culture - Final Blood - Venous No growth after 5 days. 05/29/23 19:13 Blood Culture - Final Blood - Venous No growth after 5 days. Assessment and Plan (1) CHF (congestive heart failure): Status: Inactive (2) Bacteremia: Status: Acute (3) Acute UTI: Status: Acute Plan This is a 67-year-old female with pertinent history of multiple sclerosis, COPD not on home oxygen, paroxysmal atrial fibrillation on Eliquis, essential hypertension, coronary artery disease, hypothyroidism, congestive heart failure with preserved ejection fraction who presents to the emergency department for evaluation dyspnea and admitted for heart failure but now has gram positive cocci bacteremia #Staph Aureus (MSSA) sepsis/ bacteremia, source unclear, echo no venegations, suspects pneumonia Started Vanco 05/29, DC'd vanco on 06/01 Started Kefzol 06/01, repeat cultures negative at 48 hour will need PICC line once renal function restored #SUSAN--on CKD worse, ? ATN, sepsis, still worsening, stopped vanco (don't think related), renal US showed bilateral hydronephrosis, confirmed on CT, treated with IVF, Mahoney catheter, renal function is now downtrending #Hematuria after mahoney insertion 06/02 with high output, likely from bladder spasm from rapid decompression, CBI is clearing, Uro consult pending. hold Eliquis #.? Acute respiratory distress, likely due to acute exacerbation of diastolic heart failure, presently compensated Lasix stopped d/t renal failure #.? Non displaced fracture of ulna.?Ortho recommends no intervention, swollen hand, ortho recommends no further action #.? Paroxysmal atrial fibrillation on Eliquis, received one time dig load, continue metoprolol , LVEF of 59% now LVEF 20-25%. She may need cardioversion, cardiology following. Started Amio loading 05/30 400 bid , holding eliquis today due to hamturia and left tight hematoma, may need to stop amio to prevent conversion to sinus in light of no anticoagulation, will discuss with cardiology #.? Hypothyroidism on Synthroid #.? Mood disorder.? Continue home mood stabilizers #.? Coronary artery disease.? On antiplatelet, beta-allyson and high-intensity statin #. History of MS--Interferon beta injection, will bring from home #. Anemia-check CBC with type and screen DVT prophylaxis:? Eliquis on hold, add compression device Full code need for inpatient: sespsis work up, treatment with IV Abx, SUSAN work and treatment with IVf She will likely need rehab at discharge PT working with her on mobility, will definately need rehab at discharge Time Spent With Patient Time: Total time managing care of this patient today ____ minutes. Quality Stroke Does the patient have a stroke diagnosis?: No VTE Prior VTE?: No VTE Risk Level:: Medical - moderate - high VTE Device Contraindication: Treatment Not Indicated VTE Drug Contraindication: N/A - Med Ordered
[2023-06-04] MEDS: 0.9 % Sodium Chloride Flush 3 ML SYRINGE IVFLUSH ×3 (08:56→20:52)
[2023-06-04 08:57] LABS: Hematocrit 28.2 % (37.0-47.0); Hemoglobin 8.9 g/dl (12.0-16.0); Mean Corpuscular HGB Conc 31.6 g/dl (31.0-35.0); Mean Corpuscular Hemoglobin 25.5 pg (27.0-33.0); Mean Corpuscular Volume 80.8 fL (80.0-98.0); Red Blood Count 3.49 X10*6/uL (4.20-5.50); Red Cell Distribution Width 14.4 % (11.0-16.0)
[2023-06-04 09:11] LABS: Anion Gap 15 (12-20); Blood Urea Nitrogen 38 mg/dL (9-16); Calcium 9.2 mg/dL (8.4-10.2); Carbon Dioxide 23 mmol/L (22-29); Chloride 105 mmol/L (96-108); Creatinine Clr Calc Pharmacy 25.3; Estimated Glomerular Filt Rate 25; Glucose Random 82 mg/dL (60-115); Potassium 4.1 mmol/L (3.3-5.1); Sodium 139 mmol/L (135-145)
[2023-06-04 09:17] LABS: Mean Platelet Volume 10.3 fL (9.4-12.3); Platelet Count 60 X10*3/uL (160-400)
--- NOTE | 2023-06-04 09:44 | MHC.CM.PN ---
YUNIER AND SADI VILLARREAL UPDATED IN [facility]. NO PLAN FOR DC YET CM FOLLOWING
--- NOTE | 2023-06-04 10:29 | PM.PNNEP ---
Subjective Subjective Date of Service: 06/05/23 Interval history: Events noted UO noted Physical Exam Vital Signs: Vital Signs: Last Vital Signs Temp 96.8 F 06/04/23 07:54 Pulse 82 06/04/23 07:54 Resp 18 06/04/23 07:54 BP 134/85 06/04/23 07:54 Pulse Ox 97 06/04/23 07:54 O2 Del Method Room Air 06/04/23 07:54 O2 Flow Rate 4 05/28/23 19:56 BMI result Body Mass Index 24.7 Const: Orientation/consciousness: patient oriented x3 Chest: Chest palpation & inspection: normal inspection of the chest Resp: Auscultation: diminished lung sounds Cardio: Heart sounds: S1 normal heart sound present, S2 normal heart sound present, no gallops, Murmur heart sound present systolic II/ and at the right sternal border and no rubs GI: Palpation (GI): Soft to palpation Neuro: General: patient oriented x3 Extrem: Other: left arm abrasion ,soft cast Objective Data Labs 06/04/23 08:45 06/04/23 08:45 Labs: Laboratory Results - last 24 hr 06/04/23 06/04/23 06/04/23 08:45 08:45 08:45 WBC 8.0 RBC 3.49 L Hgb 8.9 L Hct 28.2 L MCV 80.8 MCH 25.5 L MCHC 31.6 RDW 14.4 Plt Count 60 L D MPV 10.3 Absolute Nucleated RBC 0.000 Nucleated RBC % (auto) 0.0 Sodium 139 Potassium 4.1 Chloride 105 Carbon Dioxide 23 Anion Gap 15 BUN 38 H Creatinine 1.96 H Estim Creat Clear Calc 25.3 Estimated GFR 25 Random Glucose 82 Calcium 9.2 Blood Type O Negative Antibody Screen NEGATIVE Microbiology Microbiology Results: Microbiology 05/29/23 19:13 Blood - Venous Blood Culture - Final No growth after 5 days. 05/29/23 19:13 Blood - Venous Blood Culture - Final No growth after 5 days. 05/28/23 00:06 Blood - Venous Blood Culture - Final Staphylococcus epidermidis Coag negative Staphylococcus 05/27/23 22:33 Blood - Venous Blood Culture - Final Staphylococcus epidermidis Procedures Date of Service Date of Service: 06/05/23 Assessment & Plan Assessment and plan (1) Acute on chronic diastolic (congestive) heart failure: Status: Acute (2) Atrial fibrillation with rapid ventricular response: Status: Acute (3) Atherosclerotic cardiovascular disease: Status: Acute (4) Open olecranon fracture: Status: Acute (5) Ulna fracture: Status: Acute (6) Bacteremia: Status: Acute Plan 67-year-old woman with multiple sclerosis, COPD not on home oxygen, paroxysmal atrial fibrillation on Eliquis, essential hypertension, coronary artery disease, hypothyroidism, congestive heart failure with preserved ejection fraction who presents to the emergency department for weakness, fall and gram positive cocci bacteremia. Course c/b SUSAN. 1. SUSAN on CKD BL Cr 1.4mg/dL Cr peak 2.5mg/dL Fena 1.0% Ultrasonogram shows bilateral hydronephrosis. Hou inserted. Currently nonoliguric. She has hematuria receiving CBI. CT concerning for malignancy. Plan: Keep Hou. Keep intake more than the output. urology evaluation to address bladder outlet obstruction in this elderly woman. - watch vanco troughs. - no lasix No absolute indication for dialysis Time Spent With Patient Time: Total time managing care of this patient today ____ minutes. Progress Note: Quality Stroke Does the patient have a stroke diagnosis?: No
--- NOTE | 2023-06-04 12:24 | MHC.CM.PN ---
STILL REQUIRING IV ABX AND FLUIDS. NO PLAN FOR DISCHARGE TODAY MAY BE HERE THROUGH THE WEEKEND. CM FOLLOWING
[2023-06-04 15:53] VITALS: BP 137/80; PULSE 80; RESP 16; TEMP 36.3; O2SAT 96
[2023-06-04 19:44] VITALS: BP 142/65; PULSE 84; RESP 17; TEMP 36.1; O2SAT 94
[2023-06-04] MEDS: Ferrous Sulfate 324 MG TABLET.DR PO (20:52)
[2023-06-04] MEDS: PARoxetine HCL 40 MG TABLET PO (20:52)
[2023-06-04] MEDS: Acetaminophen 325 MG TABLET 650 MG PO (21:40)
--- NOTE | 2023-06-04 23:51 | PM.IDPN ---
Subjective Subjective Date of Service: 06/04/23 Critical Care Time (minutes): 15 Comment: apparently staph is actually staph epi with additional coagulase negative staph 8/ blood, iliac stent and no dialysis or other catheter Objective Data Labs 06/04/23 08:45 06/04/23 08:45 Labs: Laboratory Results - last 24 hr 06/04/23 06/04/23 06/04/23 08:45 08:45 08:45 WBC 8.0 RBC 3.49 L Hgb 8.9 L Hct 28.2 L MCV 80.8 MCH 25.5 L MCHC 31.6 RDW 14.4 Plt Count 60 L D MPV 10.3 Absolute Nucleated RBC 0.000 Nucleated RBC % (auto) 0.0 Sodium 139 Potassium 4.1 Chloride 105 Carbon Dioxide 23 Anion Gap 15 BUN 38 H Creatinine 1.96 H Estim Creat Clear Calc 25.3 Estimated GFR 25 Random Glucose 82 Calcium 9.2 Blood Type O Negative Antibody Screen NEGATIVE Microbiology Microbiology Results: Microbiology 05/29/23 19:13 Blood - Venous Blood Culture - Final No growth after 5 days. 05/29/23 19:13 Blood - Venous Blood Culture - Final No growth after 5 days. 05/28/23 00:06 Blood - Venous Blood Culture - Final Staphylococcus epidermidis Coag negative Staphylococcus 05/27/23 22:33 Blood - Venous Blood Culture - Final Staphylococcus epidermidis Physical Exam Vital Signs: Vital Signs: Last Vital Signs Temp 97 F 06/04/23 19:44 Pulse 84 06/04/23 19:44 Resp 17 06/04/23 19:44 BP 142/65 H 06/04/23 19:44 Pulse Ox 94 06/04/23 19:44 O2 Del Method Room Air 06/04/23 19:44 O2 Flow Rate 4 05/28/23 19:56 BMI result Body Mass Index 24.7 Const: General: cooperative Eyes: General: appearance normal, both eyes and all related structures Pupils: Equal, round and reactive pupils present Resp: Effort & Inspection: normal respiratory effort Cardio: Rate: regular rate Rhythm: regular rhythm GI: Inspection: Yes normal to inspection Neuro: Cranial nerves: Yes Equal, round and reactive pupils present Assessment and Plan Assessment and plan (1) Staphylococcus epidermidis bacteremia: Status: Acute Plan staph epi bacteremia do not think of significance stop IV antibiotic Kefzol Time Spent With Patient Time: Total time managing care of this patient today ____ minutes.
[2023-06-05 04:00] VITALS: BP 134/69; PULSE 97; RESP 16; TEMP 36; O2SAT 94
[2023-06-05] MEDS: Levothyroxine Sodium 50 MCG TABLET PO (05:33)
[2023-06-05] MEDS: Omeprazole 20 MG CAPSULE.DR PO (05:33)
[2023-06-05] MEDS: ondansetron HCL 4 MG/2 ML VIAL IVPUSH (06:25)
[2023-06-05 07:01] LABS: Anion Gap 12 (12-20); Blood Urea Nitrogen 31 mg/dL (9-16); Calcium 8.9 mg/dL (8.4-10.2); Carbon Dioxide 25 mmol/L (22-29); Chloride 104 mmol/L (96-108); Creatinine Clr Calc Pharmacy 29.6; Estimated Glomerular Filt Rate 30; Glucose Random 100 mg/dL (60-115); Potassium 3.9 mmol/L (3.3-5.1); Sodium 137 mmol/L (135-145)
[2023-06-05 07:47] VITALS: BP 128/68; PULSE 101; RESP 18; TEMP 36.7; O2SAT 100
[2023-06-05 08:28] LABS: Hemoglobin 8.2 g/dl (12.0-16.0); PLT CLUMP 1
[2023-06-05 08:30] LABS: Hematocrit 25.4 % (37.0-47.0); Mean Corpuscular HGB Conc 32.3 g/dl (31.0-35.0); Mean Corpuscular Hemoglobin 26.1 pg (27.0-33.0); Mean Corpuscular Volume 80.9 fL (80.0-98.0); Mean Platelet Volume 11.4 fL (9.4-12.3); Red Blood Count 3.14 X10*6/uL (4.20-5.50); Red Cell Distribution Width 14.5 % (11.0-16.0)
[2023-06-05 08:33] LABS: Platelet Count 84 X10*3/uL (160-400); White Blood Count 5.6 X10*3/uL (4.8-10.8)
[2023-06-05] MEDS: Amiodarone HCL 200 MG TABLET 400 MG PO ×2 (09:08→20:12)
[2023-06-05] MEDS: oxyBUTYnin chloride 5 MG TABLET PO ×2 (09:08→20:12)
[2023-06-05] MEDS: Atorvastatin Calcium 80 MG TABLET PO (09:08)
[2023-06-05] MEDS: Docusate Sodium 100 MG CAPSULE PO ×2 (09:08→20:12)
[2023-06-05] MEDS: Cyanocobalamin (Vitamin B-12) 1,000 MCG TABLET 1000 MCG PO (09:08)
[2023-06-05] MEDS: Metoprolol Succinate ER 50 MG TAB.ER.24H PO (09:08)
[2023-06-05] MEDS: 0.9 % Sodium Chloride Flush 3 ML SYRINGE IVFLUSH ×2 (09:08→16:12)
[2023-06-05] MEDS: Cholecalciferol (Vitamin D3) 25 MCG TABLET PO (09:08)
[2023-06-05] MEDS: Acetaminophen 325 MG TABLET 650 MG PO (09:17)
--- NOTE | 2023-06-05 09:38 | P.PNIM_ITS ---
Subjective Subjective Date of Service: 06/05/23 Interval History: no new issues, reanl function geting better, platiets improving, Review of Systems left thigh pain and headache Physical Exam Vital Signs: Vital Signs: Last Vital Signs Temp 98.1 F 06/05/23 07:47 Pulse 101 H 06/05/23 07:47 Resp 18 06/05/23 07:47 BP 128/68 06/05/23 07:47 Pulse Ox 100 06/05/23 07:47 O2 Del Method Room Air 06/05/23 07:47 O2 Flow Rate 4 05/28/23 19:56 BMI result Body Mass Index 24.7 Objective Data Active Medications Acetaminophen (Acetaminophen 325 Mg Tablet) 650 mg PO Q6H PRN PRN Reason: Pain, Mild (Pain Scale 1-3) Last Admin: 06/05/23 09:17 Dose: 650 mg Documented By: RENU Albuterol Sulfate (Albuterol Sulfate 90 Mcg 8 Gm Inhaler) 2 puff INHALE Q4H PRN PRN Reason: shortness of breath or wheezing Amiodarone HCl (Amiodarone Hcl 200 Mg Tablet) 400 mg PO BID [facility] Stop: 06/06/23 10:29 Last Admin: 06/05/23 09:08 Dose: 400 mg Documented By: RENU Atorvastatin Calcium (Atorvastatin Calcium 80 Mg Tablet) 80 mg PO DAILY [facility] Last Admin: 06/05/23 09:08 Dose: 80 mg Documented By: RENU Cyanocobalamin (Cyanocobalamin (Vitamin B-12) 1,000 Mcg Tablet) 1,000 mcg PO DAILY [facility] Last Admin: 06/05/23 09:08 Dose: 1,000 mcg Documented By: RENU Docusate Sodium (Docusate Sodium 100 Mg Capsule) 100 mg PO BID [facility] Last Admin: 06/05/23 09:08 Dose: 100 mg Documented By: RENU Ferrous Sulfate (Ferrous Sulfate 324 Mg Tablet.Dr) 324 mg PO BEDTIME [facility] Last Admin: 06/04/23 20:52 Dose: 324 mg Documented By: MELQUIADES Levothyroxine Sodium (Levothyroxine Sodium 50 Mcg Tablet) 50 mcg PO DAILY@0600 [facility] Last Admin: 06/05/23 05:33 Dose: 50 mcg Documented By: MELQUIADES Magnesium Hydroxide (Milk Of Magnesia 30 Ml Oral.Susp) 30 ml PO DAILY PRN PRN Reason: Constipation Last Admin: 06/01/23 15:34 Dose: 30 ml Documented By: STUART Melatonin (Melatonin 3 Mg Tablet) 6 mg PO BEDTIME PRN PRN Reason: Insomnia Metoprolol Succinate (Metoprolol Succinate Er 50 Mg Tab.Er.24h) 50 mg PO DAILY [facility]; Protocol Last Admin: 06/05/23 09:08 Dose: 50 mg Documented By: RENU Pt Own (Interferon Beta-1a [Avonex] 30 Mcg/0.5 Ml Pen Injector Kit) 30 mcg IM TU [facility] Last Admin: 06/04/23 21:57 Dose: 30 mcg Documented By: MELQUIADES Pt Own (Fluticasone Salmeterol 113/14 Mcg 1) 1 puff INHALE RBID [facility] Last Admin: 06/04/23 20:53 Dose: Not Given Documented By: MELQUIADES Non-Admin Reason: Patient Refused Omeprazole (Omeprazole 20 Mg Capsule.) 20 mg PO DAILY@0630 [facility] Last Admin: 06/05/23 05:33 Dose: 20 mg Documented By: MELQUIADES Ondansetron HCl (Ondansetron Hcl 4 Mg/2 Ml Vial) 4 mg IVPUSH Q8H PRN PRN Reason: Nausea and Vomiting Last Admin: 06/05/23 06:25 Dose: 4 mg Documented By: MELQUIADES Oxybutynin Chloride (Oxybutynin Chloride 5 Mg Tablet) 5 mg PO BID [facility] Last Admin: 06/05/23 09:08 Dose: 5 mg Documented By: RENU Paroxetine HCl (Paroxetine Hcl 40 Mg Tablet) 40 mg PO BEDTIME [facility] Last Admin: 06/04/23 20:52 Dose: 40 mg Documented By: MELQUIADES Pharmacy Consult (Consult Rx Perform Med Rec) 1 each MISCELLANE ONCE PRN PRN Reason: Consult order Polyethylene Glycol (Polyethylene Glycol 3350 17 Gm Powd.Pack) 17 gm PO DAILY PRN PRN Reason: Constipation Last Admin: 06/01/23 15:34 Dose: 17 gm Documented By: STUART Sodium Chloride (0.9 % Sodium Chloride Flush 3 Ml Syringe) 3 ml IVFLUSH QSHIFT [facility] Last Admin: 06/05/23 09:08 Dose: 3 ml Documented By: HO.GRAZIC Vitamin D (Cholecalciferol (Vitamin D3) 25 Mcg Tablet) 25 mcg PO DAILY [facility] Last Admin: 06/05/23 09:08 Dose: 25 mcg Documented By: RENU Labs 06/05/23 07:49 06/05/23 06:12 Labs: Laboratory Results - last 24 hr 06/05/23 06/05/23 06:12 07:49 MCV 80.9 MCH 26.1 L MCHC 32.3 RDW 14.5 Plt Count 84 L D MPV 11.4 Absolute Nucleated RBC 0.000 Nucleated RBC % (auto) 0.0 Anion Gap 12 Estim Creat Clear Calc 29.6 Estimated GFR 30 Random Glucose 100 Calcium 8.9 Assessment and Plan (1) CHF (congestive heart failure): Status: Inactive (2) Bacteremia: Status: Acute (3) Acute UTI: Status: Acute Plan This is a 67-year-old female with pertinent history of multiple sclerosis, COPD not on home oxygen, paroxysmal atrial fibrillation on Eliquis, essential hypertension, coronary artery disease, hypothyroidism, congestive heart failure with preserved ejection fraction who presents to the emergency department for evaluation dyspnea and admitted for heart failure but now has gram positive cocci bacteremia #Staph Aureus ) sepsis/ bacteremia, source unclear, echo no venegations, suspects pneumonia Started Vanco 05/29, DC'd vanco on 06/01 Started Kefzol 06/01, repeat cultures negative at 48 hour Final cultures now showing coag negative, staph epi and likely contamination doesn't need picc line and no further antibiotics #SUSAN--on CKD worse, ? ATN, sepsis, still worsening, stopped vanco (don't think related), renal US showed bilateral hydronephrosis, confirmed on CT, treated with IVF, Mahoney catheter, renal function is gettomg better #Hematuria after mahoney insertion 06/02 with high output, likely from bladder spasm from rapid decompression, CBI is clearing, Uro consult pending. hold Eliquis #.? Acute respiratory distress, likely due to acute exacerbation of diastolic heart failure, presently compensated Lasix stopped d/t renal failure #.? Non displaced fracture of ulna.?Ortho recommends no intervention, swollen tracy nd, ortho recommends no further action #.? Paroxysmal atrial fibrillation on Eliquis, received one time dig load, continue metoprolol , LVEF of 59% now LVEF 20-25%. She may need cardioversion, cardiology following. Started Amio loading 05/30 400 bid , holding eliquis today due to hamturia and left tight hematoma, may need to stop amio to prevent conversion to sinus in light of no anticoagulation, will discuss with cardiology #.? Hypothyroidism on Synthroid #.? Mood disorder.? Continue home mood stabilizers #.? Coronary artery disease.? On antiplatelet, beta-allyson and high-intensity statin #. History of MS--Interferon beta injection, will bring from home #. Anemia-check CBC with type and screen #. Thrombobytepenia--Plat dropped from 220 to 60 and now 80, ? ITP or Lovenox related. Holding Plavix and eliquis until Plat > 100K DVT prophylaxis:? Eliquis on hold, add compression device Full code need for inpatient: SUSAN, heart failure, afib management PT working with her on mobility, will definately need rehab at discharge Time Spent With Patient Time: Total time managing care of this patient today ____ minutes. Quality Stroke Does the patient have a stroke diagnosis?: No VTE Prior VTE?: No VTE Risk Level:: Medical - moderate - high VTE Device Contraindication: Treatment Not Indicated VTE Drug Contraindication: N/A - Med Ordered
--- NOTE | 2023-06-05 09:47 | P.CNUR_ITS ---
History of Present Illness Consult details Consult date: 06/05/23 Narrative: Consulting complaint - bilateral hydronephrosis with urinary retention 67-year-old female Background of multiple sclerosis Admitted to hospital with shortness of breath presumed to be exacerbation of cardiac issues. Had fall with nondisplaced ulnar fracture. Raised BNP. Found to have elevated creatinine. Initially managed for acute on chronic renal insufficiency secondary to decreased perfusion. On imaging bilateral hydroureteronephrosis with urinary retention was seen. At that point creatinine had peaked at 3.1. Nephrology Neurology consult requested. Hou catheter placed with hematuria secondary to Eliquis. Decompression of bladder has resulted in decline in creatinine. On discussion with patient she states she has worn a diaper with incontinence for the past 4-6 weeks. This is consistent with overflow incontinence. Urine output has now cleared. Recommend trial of alpha-allyson with voiding trial in 2 weeks as outpatient Review of Systems Constitutional: Constitutional: Denies chills and Denies fever(s) Cardiovascular: Cardiovascular: Reports no additional cardiovascular complaints and Denies syncope Respiratory: Respiratory: Denies cough Gastrointestinal: Gastrointestinal: Denies abdominal pain and Denies heartburn Genitourinary: Genitourinary: Reports as per HPI and Denies change in libido Neurologic: Denies syncope Psychiatric: Psychiatric: Denies change in libido Endocrine: Endocrine: Denies change in libido [facility] Past Medical History Medical History (Updated 06/05/23 @ 09:54 by Jalen Ramirez MD) Acute on chronic systolic (congestive) heart failure Asymmetric blood pressures Atherosclerotic cardiovascular disease Atrial fibrillation with rapid ventricular response Bacteremia CAD (coronary artery disease) Cardiomyopathy CHF (congestive heart failure) COPD (chronic obstructive pulmonary disease) Dyspnea on effort Essential hypertension Left renal artery stenosis Multiple sclerosis PAF (paroxysmal atrial fibrillation) Peripheral arterial occlusive disease Personal history of nicotine dependence Pulmonary nodules Staphylococcus epidermidis bacteremia Family History Family History Father No problems noted. Mother No problems noted. Brother Diabetes Surgical History Surgical History History of cholecystectomy (~02/2009) History of colonoscopy History of endoscopy History of heart artery stent (~2018) S/P cardiac cath (~12/2020) S/P insertion of iliac artery stent (~02/2019) Status post angioplasty with stent (~09/2018) Social History Social History Household Members: None Housing: House Are you a primary progressive care nurse to a significant other at home: No Do you presently have visiting nurse or other home services: No Alcohol intake: never Patient Tobacco Use Status: Former Tobacco user Quit Date: 2017 Tobacco use type: Cigarette e-Cigarette/Vaping Use: Never Used Second Hand Smoke Exposure: No Use of substances other than those prescribed or required for medical reasons: No Currently Displaying Signs/Symptoms of Drug Intoxication Withdrawal: No Have you been hit, kicked, punched, or otherwise hurt by someone within the past year? If so, by whom?: No Do you feel safe in your current relationship?: No Current Relationship Is there a partner from a previous relationship who is making you feel unsafe now?: No Are you made to feel afraid or neglected: No Advance Directives: Yes Advance Directives on File: Yes Advance Directives Date on File: 12/27/20 Do you have thoughts of harming others: None Do you have a plan to hurt others: No Plan Recently lost weight without trying: No Nutrition Risks: No Nutritional Risk Patient : No : No Poor oral hygiene: No service: No Current occupational status: retired Cognitive needs: Yes (cane) Hearing needs: No Vision needs: Yes (reading glasses) Meds Allergies Allergy/AdvReac Type Severity Reaction Status Date / Time codeine [Codeine] AdvReac Mild vomiting Verified 05/27/23 21:02 Active Medications: Current Medications Acetaminophen (Acetaminophen 325 Mg Tablet) 650 mg PO Q6H PRN PRN Reason: Pain, Mild (Pain Scale 1-3) Last Admin: 06/05/23 09:17 Dose: 650 mg Albuterol Sulfate (Albuterol Sulfate 90 Mcg 8 Gm Inhaler) 2 puff INHALE Q4H PRN PRN Reason: shortness of breath or wheezing Amiodarone HCl (Amiodarone Hcl 200 Mg Tablet) 400 mg PO BID [facility] Stop: 06/06/23 10:29 Last Admin: 06/05/23 09:08 Dose: 400 mg Atorvastatin Calcium (Atorvastatin Calcium 80 Mg Tablet) 80 mg PO DAILY [facility] Last Admin: 06/05/23 09:08 Dose: 80 mg Cyanocobalamin (Cyanocobalamin (Vitamin B-12) 1,000 Mcg Tablet) 1,000 mcg PO DAILY [facility] Last Admin: 06/05/23 09:08 Dose: 1,000 mcg Docusate Sodium (Docusate Sodium 100 Mg Capsule) 100 mg PO BID [facility] Last Admin: 06/05/23 09:08 Dose: 100 mg Ferrous Sulfate (Ferrous Sulfate 324 Mg Tablet.) 324 mg PO BEDTIME [facility] Last Admin: 06/04/23 20:52 Dose: 324 mg Levothyroxine Sodium (Levothyroxine Sodium 50 Mcg Tablet) 50 mcg PO DAILY@0600 [facility] Last Admin: 06/05/23 05:33 Dose: 50 mcg Magnesium Hydroxide (Milk Of Magnesia 30 Ml Oral.Susp) 30 ml PO DAILY PRN PRN Reason: Constipation Last Admin: 06/01/23 15:34 Dose: 30 ml Melatonin (Melatonin 3 Mg Tablet) 6 mg PO BEDTIME PRN PRN Reason: Insomnia Metoprolol Succinate (Metoprolol Succinate Er 50 Mg Tab.Er.24h) 50 mg PO DAILY [facility]; Protocol Last Admin: 06/05/23 09:08 Dose: 50 mg Pt Own (Interferon Beta-1a [Avonex] 30 Mcg/0.5 Ml Pen Injector Kit) 30 mcg IM TU [facility] Last Admin: 06/04/23 21:57 Dose: 30 mcg Pt Own (Fluticasone Salmeterol 113/14 Mcg 1) 1 puff INHALE RBID [facility] Last Admin: 06/04/23 20:53 Dose: Not Given Omeprazole (Omeprazole 20 Mg Capsule.) 20 mg PO DAILY@0630 [facility] Last Admin: 06/05/23 05:33 Dose: 20 mg Ondansetron HCl (Ondansetron Hcl 4 Mg/2 Ml Vial) 4 mg IVPUSH Q8H PRN PRN Reason: Nausea and Vomiting Last Admin: 06/05/23 06:25 Dose: 4 mg Oxybutynin Chloride (Oxybutynin Chloride 5 Mg Tablet) 5 mg PO BID [facility] Last Admin: 06/05/23 09:08 Dose: 5 mg Paroxetine HCl (Paroxetine Hcl 40 Mg Tablet) 40 mg PO BEDTIME [facility] Last Admin: 06/04/23 20:52 Dose: 40 mg Pharmacy Consult (Consult Rx Perform Med Rec) 1 each MISCELLANE ONCE PRN PRN Reason: Consult order Polyethylene Glycol (Polyethylene Glycol 3350 17 Gm Powd.Pack) 17 gm PO DAILY PRN PRN Reason: Constipation Last Admin: 06/01/23 15:34 Dose: 17 gm Sodium Chloride (0.9 % Sodium Chloride Flush 3 Ml Syringe) 3 ml IVFLUSH QSHIFT [facility] Last Admin: 06/05/23 09:08 Dose: 3 ml Vitamin D (Cholecalciferol (Vitamin D3) 25 Mcg Tablet) 25 mcg PO DAILY [facility] Last Admin: 06/05/23 09:08 Dose: 25 mcg Home Medications Medication Instructions Recorded Confirmed Last Taken Type interferon beta-1a 30 mcg/0.5 mL 30 mcg IM TU 10/03/20 05/28/23 09/13/21 History intramuscular pen kit (Avonex) paroxetine HCl 40 mg tablet 40 mg PO BEDTIME 10/03/20 05/28/23 09/12/21 History cholecalciferol (vitamin D3) 25 25 mcg PO DAILY 12/20/20 05/28/23 09/13/21 History mcg (1,000 unit) tablet (Vitamin D3) cyanocobalamin (vitamin B-12) 1,000 mcg PO DAILY 12/20/20 05/28/23 09/13/21 History 1,000 mcg tablet (Vitamin B-12) melatonin 10 mg tablet 10 mg PO BEDTIME PRN Insomnia 01/13/23 05/28/23 Unknown History ferrous sulfate 325 mg (65 mg 325 mg PO BEDTIME 05/28/23 05/28/23 Unknown H istory iron) tablet Physical Exam Vital Signs: Vital Signs: Last Vital Signs Temp 98.1 F 06/05/23 07:47 Pulse 101 H 06/05/23 07:47 Resp 18 06/05/23 07:47 BP 128/68 06/05/23 07:47 Pulse Ox 100 06/05/23 07:47 O2 Del Method Room Air 06/05/23 07:47 O2 Flow Rate 4 05/28/23 19:56 BMI result Body Mass Index 24.7 Const: General: cooperative, healthy appearing, comfortable and no acute distress Orientation/consciousness: patient oriented x3 HEENT: Face and sinus: Yes normal facial exam Mouth: moist mucous membranes Neck: Neck: Yes normal visual inspection, Yes full ROM and Yes trachea midline Chest: Chest palpation & inspection: normal inspection of the chest Resp: Effort & Inspection: normal respiratory effort, able to speak in complete sentences and no respiratory distress GI: Inspection: Yes normal to inspection Back/Spine/Pelvis: Cervical Spine: normal cervical lordosis Thoracic/Lumbar Spine: thoracic and lumbar spine normal to inspection Skin: General skin exam: no rashes or lesions noted Neuro: General: patient oriented x3, gait normal, tone normal and moves all extremities Extrem: General: Yes normal to inspection and Yes capillary refill normal Results Labs 06/05/23 07:49 06/05/23 06:12 Labs: Abnormal lab results 06/05/23 06/05/23 Range/Units 06:12 07:49 RBC 3.14 L (4.20-5.50) X10*6/uL Hgb 8.2 L (12.0-16.0) g/dl Hct 25.4 L (37.0-47.0) % MCH 26.1 L (27.0-33.0) pg Plt Count 84 L D (160-400) X10*3/uL BUN 31 H (9-16) mg/dL Creatinine 1.68 H (0.5-1.4) mg/dL Short CBC 06/05/23 Range/Units 07:49 WBC 5.6 (4.8-10.8) X10*3/uL Hgb 8.2 L (12.0-16.0) g/dl Hct 25.4 L (37.0-47.0) % Plt Count 84 L D (160-400) X10*3/uL BMP 06/05/23 06:12 Sodium 137 Potassium 3.9 Chloride 104 Carbon Dioxide 25 BUN 31 H Creatinine 1.68 H Calcium 8.9 All other labs normal. Assessment and Plan (1) Urinary retention with incomplete bladder emptying: Status: Acute Plan Outpatient follow-up with voiding trial Alpha-allyson Time Spent With Patient Time: Total time managing care of this patient today ____ minutes. Procedures Date of Service Date of Service: 06/05/23
--- NOTE | 2023-06-05 10:20 | MHC.CM.PN ---
CM RECEIVED A CALL FROM PTS BROTHER, MARY KAY ([phone]) WHO REPORTS HE AND THE PTS SISTER ARE WORKING ON IMPROVING THE PTS HOME AND MAKING IT MORE HABITABLE . HE REQUESTED AN UPDATE ON THE [facility] REFERRAL PLACED BY PREVIOUS CM. HE WAS INFORMED THE REFERRAL WAS IN HOWEVER PT HAD NOT BEEN SEEN BY [facility] YET. HE IS ALSO AWARE PT IS NOT YET READY TO DC AND WILL GO TO STR FOLLOWING ADMISSION.
--- NOTE | 2023-06-05 10:49 | PM.PNNEP ---
Subjective Subjective Date of Service: 06/05/23 Interval history: Events noted. Nonoliguric Physical Exam Vital Signs: Vital Signs: Last Vital Signs Temp 98.1 F 06/05/23 07:47 Pulse 101 H 06/05/23 07:47 Resp 18 06/05/23 07:47 BP 128/68 06/05/23 07:47 Pulse Ox 100 06/05/23 07:47 O2 Del Method Room Air 06/05/23 07:47 O2 Flow Rate 4 05/28/23 19:56 BMI result Body Mass Index 24.7 Const: Orientation/consciousness: patient oriented x3 Chest: Chest palpation & inspection: normal inspection of the chest Resp: Auscultation: diminished lung sounds Cardio: Heart sounds: S1 normal heart sound present, S2 normal heart sound present, no gallops, Murmur heart sound present systolic II/ and at the right sternal border and no rubs GI: Palpation (GI): Soft to palpation Neuro: General: patient oriented x3 Extrem: Other: left arm abrasion ,soft cast Objective Data Labs 06/05/23 07:49 06/05/23 06:12 Labs: Laboratory Results - last 24 hr 06/05/23 06/05/23 06:12 07:49 WBC 5.6 RBC 3.14 L Hgb 8.2 L Hct 25.4 L MCV 80.9 MCH 26.1 L MCHC 32.3 RDW 14.5 Plt Count 84 L D MPV 11.4 Absolute Nucleated RBC 0.000 Nucleated RBC % (auto) 0.0 Sodium 137 Potassium 3.9 Chloride 104 Carbon Dioxide 25 Anion Gap 12 BUN 31 H Creatinine 1.68 H Estim Creat Clear Calc 29.6 Estimated GFR 30 Random Glucose 100 Calcium 8.9 Microbiology Microbiology Results: Microbiology 05/29/23 19:13 Blood - Venous Blood Culture - Final No growth after 5 days. 05/29/23 19:13 Blood - Venous Blood Culture - Final No growth after 5 days. 05/28/23 00:06 Blood - Venous Blood Culture - Final Staphylococcus epidermidis Coag negative Staphylococcus 05/27/23 22:33 Blood - Venous Blood Culture - Final Staphylococcus epidermidis Procedures Date of Service Date of Service: 06/05/23 Assessment & Plan Assessment and plan (1) Acute on chronic diastolic (congestive) heart failure: Status: Acute (2) Atrial fibrillation with rapid ventricular response: Status: Acute (3) Atherosclerotic cardiovascular disease: Status: Acute (4) Open olecranon fracture: Status: Acute (5) Ulna fracture: Status: Acute (6) Bacteremia: Status: Acute Plan 67-year-old woman with multiple sclerosis, COPD not on home oxygen, paroxysmal atrial fibrillation on Eliquis, essential hypertension, coronary artery disease, hypothyroidism, congestive heart failure with preserved ejection fraction who presents to the emergency department for weakness, fall and gram positive cocci bacteremia. Course c/b SUSAN. 1. SUSAN on CKD BL Cr 1.4mg/dL Cr peak 2.5mg/dL Fena 1.0% Ultrasonogram shows bilateral hydronephrosis. Hou inserted. Currently nonoliguric. She has hematuria receiving CBI. CT concerning for malignancy. Plan: Keep Hou. Keep intake more than the output. urology evaluation to address bladder outlet obstruction in this elderly woman. - watch vanco troughs. - no lasix No absolute indication for dialysis Time Spent With Patient Time: Total time managing care of this patient today ____ minutes. Progress Note: Quality Stroke Does the patient have a stroke diagnosis?: No
[2023-06-05 15:32] VITALS: BP 128/67; PULSE 83; RESP 18; TEMP 36.3; O2SAT 100
[2023-06-05 19:14] VITALS: BP 122/68; PULSE 71; RESP 18; TEMP 36.1; O2SAT 100
[2023-06-05] MEDS: PARoxetine HCL 40 MG TABLET PO (20:12)
[2023-06-05] MEDS: Tamsulosin HCL 0.4 MG CAPSULE PO (20:12)
[2023-06-05] MEDS: Ferrous Sulfate 324 MG TABLET.DR PO (20:12)
[2023-06-06] VITALS (7 sets, daily range): BP systolic 96–131; BP diastolic 54–78; PULSE 67–99; RESP 16–20; TEMP 36–36.8; O2SAT 95–96
[2023-06-06] MEDS: 0.9 % Sodium Chloride Flush 3 ML SYRINGE IVFLUSH ×4 (00:01→21:24)
[2023-06-06] MEDS: Levothyroxine Sodium 50 MCG TABLET PO (05:52)
[2023-06-06] MEDS: Omeprazole 20 MG CAPSULE.DR PO (05:52)
[2023-06-06 06:48] LABS: Anion Gap 13 (12-20); Blood Urea Nitrogen 24 mg/dL (9-16); Calcium 8.7 mg/dL (8.4-10.2); Carbon Dioxide 22 mmol/L (22-29); Chloride 109 mmol/L (96-108); Creatinine Clr Calc Pharmacy 39.1; Estimated Glomerular Filt Rate 42; Glucose Random 92 mg/dL (60-115); Potassium 4.9 mmol/L (3.3-5.1); Sodium 139 mmol/L (135-145)
--- NOTE | 2023-06-06 08:46 | P.PNIM_ITS ---
Subjective Subjective Date of Service: 06/06/23 Interval History: she is feeling much better today, Cretine is better, no hematuria Physical Exam Vital Signs: Vital Signs: Last Vital Signs Temp 97.0 F 06/06/23 08:00 Pulse 75 06/06/23 08:00 Resp 18 06/06/23 08:00 BP 116/63 06/06/23 08:00 Pulse Ox 96 06/06/23 08:00 O2 Del Method Room Air 06/06/23 08:00 O2 Flow Rate 4 05/28/23 19:56 BMI result Body Mass Index 24.7 Const: Other: General: AO X 3, no acute distress Resp: CTA bilateral CVS: S1,S2, iregular iregular GI: +BS, NT, no distention Skin: No rash, swollen left hand, no redness, c/w hematoma ext: jo sling Neuro: motor grossly intact Psych: appropriate affect Objective Data Active Medications Acetaminophen (Acetaminophen 325 Mg Tablet) 650 mg PO Q6H PRN PRN Reason: Pain, Mild (Pain Scale 1-3) Last Admin: 06/05/23 09:17 Dose: 650 mg Documented By: RENU Albuterol Sulfate (Albuterol Sulfate 90 Mcg 8 Gm Inhaler) 2 puff INHALE Q4H PRN PRN Reason: shortness of breath or wheezing Amiodarone HCl (Amiodarone Hcl 200 Mg Tablet) 400 mg PO BID [facility] Stop: 06/06/23 10:29 Last Admin: 06/05/23 20:12 Dose: 400 mg Documented By: MELQUIADES Atorvastatin Calcium (Atorvastatin Calcium 80 Mg Tablet) 80 mg PO DAILY [facility] Last Admin: 06/05/23 09:08 Dose: 80 mg Documented By: RENU Cyanocobalamin (Cyanocobalamin (Vitamin B-12) 1,000 Mcg Tablet) 1,000 mcg PO DAILY [facility] Last Admin: 06/05/23 09:08 Dose: 1,000 mcg Documented By: RENU Docusate Sodium (Docusate Sodium 100 Mg Capsule) 100 mg PO BID [facility] Last Admin: 06/05/23 20:12 Dose: 100 mg Documented By: MELQUIADES Ferrous Sulfate (Ferrous Sulfate 324 Mg Tablet.) 324 mg PO BEDTIME [facility] Last Admin: 06/05/23 20:12 Dose: 324 mg Documented By: MELQUIADES Levothyroxine Sodium (Levothyroxine Sodium 50 Mcg Tablet) 50 mcg PO DAILY@0600 [facility] Last Admin: 06/06/23 05:52 Dose: 50 mcg Documented By: ANGIE Magnesium Hydroxide (Milk Of Magnesia 30 Ml Oral.Susp) 30 ml PO DAILY PRN PRN Reason: Constipation Last Admin: 06/01/23 15:34 Dose: 30 ml Documented By: STUART Melatonin (Melatonin 3 Mg Tablet) 6 mg PO BEDTIME PRN PRN Reason: Insomnia Metoprolol Succinate (Metoprolol Succinate Er 50 Mg Tab.Er.24h) 50 mg PO DAILY [facility]; Protocol Last Admin: 06/05/23 09:08 Dose: 50 mg Documented By: RENU Pt Own (Interferon Beta-1a [Avonex] 30 Mcg/0.5 Ml Pen Injector Kit) 30 mcg IM TU [facility] Last Admin: 06/04/23 21:57 Dose: 30 mcg Documented By: MELQUIADES Pt Own (Fluticasone Salmeterol 113/14 Mcg 1) 1 puff INHALE RBID [facility] Last Admin: 06/05/23 20:15 Dose: Not Given Documented By: MELQUIADES Non-Admin Reason: Patient Refused Omeprazole (Omeprazole 20 Mg Capsule.) 20 mg PO DAILY@0630 [facility] Last Admin: 06/06/23 05:52 Dose: 20 mg Documented By: ANGIE Ondansetron HCl (Ondansetron Hcl 4 Mg/2 Ml Vial) 4 mg IVPUSH Q8H PRN PRN Reason: Nausea and Vomiting Last Admin: 06/05/23 06:25 Dose: 4 mg Documented By: MELQUIADES Oxybutynin Chloride (Oxybutynin Chloride 5 Mg Tablet) 5 mg PO BID [facility] Last Admin: 06/05/23 20:12 Dose: 5 mg Documented By: MELQUIADES Paroxetine HCl (Paroxetine Hcl 40 Mg Tablet) 40 mg PO BEDTIME [facility] Last Admin: 06/05/23 20:12 Dose: 40 mg Documented By: MELQUIADES Pharmacy Consult (Consult Rx Perform Med Rec) 1 each MISCELLANE ONCE PRN PRN Reason: Consult order Polyethylene Glycol (Polyethylene Glycol 3350 17 Gm Powd.Pack) 17 gm PO DAILY PRN PRN Reason: Constipation Last Admin: 06/01/23 15:34 Dose: 17 gm Documented By: STUART Sodium Chloride (0.9 % Sodium Chloride Flush 3 Ml Syringe) 3 ml IVFLUSH QSHIFT [facility] Last Admin: 06/06/23 00:01 Dose: 3 ml Documented By: RAMESH Tamsulosin HCl (Tamsulosin Hcl 0.4 Mg Capsule) 0.4 mg PO BEDTIME [facility] Last Admin: 06/05/23 20:12 Dose: 0.4 mg Documented By: MELQUIADES Vitamin D (Cholecalciferol (Vitamin D3) 25 Mcg Tablet) 25 mcg PO DAILY [facility] Last Admin: 06/05/23 09:08 Dose: 25 mcg Documented By: RENU Labs 06/05/23 07:49 06/06/23 05:51 Labs: Laboratory Results - last 24 hr 06/06/23 05:51 Anion Gap 13 Estim Creat Clear Calc 39.1 Estimated GFR 42 Random Glucose 92 Calcium 8.7 Assessment and Plan (1) CHF (congestive heart failure): Status: Inactive (2) Bacteremia: Status: Acute (3) Acute UTI: Status: Acute Plan This is a 67-year-old female with pertinent history of multiple sclerosis, COPD not on home oxygen, paroxysmal atrial fibrillation on Eliquis, essential hypertension, coronary artery disease, hypothyroidism, congestive heart failure with preserved ejection fraction who presents to the emergency department for evaluation dyspnea and admitted for heart failure but now has gram positive cocci bacteremia #Staph Aureus ) sepsis/ bacteremia, source unclear, echo no venegations, suspects pneumonia Started Vanco 05/29, DC'd vanco on 06/01 Started Kefzol 06/01, repeat cultures negative at 48 hour Final cultures now showing coag negative, staph epi and likely contamination doesn't need picc line and no further antibiotics #SUSAN--on CKD worse, ? ATN, sepsis, still worsening, stopped vanco (don't think related), renal US showed bilateral hydronephrosis, confirmed on CT, treated with IVF, Mahoney catheter, renal function is gettomg better and near baseline, continue mahoney for now #Hematuria after mahoney insertion 06/02 with high output, likely from bladder spasm from rapid decompression, CBI is clearing, Uro consult pending. holding eliquis #.? Acute respiratory distress, likely due to acute exacerbation of diastolic heart failure, presently compensated Lasix stopped d/t renal failure #.? Non displaced fracture of ulna.?Ortho recommends no intervention, swollen hand, ortho recommends no further action #.? Paroxysmal atrial fibrillation on Eliquis, received one time dig load, continue metoprolol , LVEF of 59% now LVEF 20-25%. She may need cardioversion, cardiology following. Started Amio loading 05/30 400 bid , holding eliquis today due to hamturia and left tight hematoma, may need to stop amio to prevent conversion to sinus in light of no anticoagulation, will discuss with cardiology and possible restart anticoagulation today #.? Hypothyroidism on Synthroid #.? Mood disorder.? Continue home mood stabilizers #.? Coronary artery disease.? On antiplatelet (on hold), beta-allyson and high- intensity statin, restart Plavix today if platlet over 100 #. History of MS--Interferon beta injection, will bring from home #. Anemia-check CBC if H/H still low or lower today, will transfuse #. Thrombobytepenia--Plat dropped from 220 to 60 and now 80, ? ITP or Lovenox related. Holding Plavix and eliquis until Plat > 100K DVT prophylaxis:? Eliquis on hold do to hematuria, hematoma and low platlets, add compression device Full code need for inpatient: SUSAN, heart failure, afib management PT working with her on mobility, will definately need rehab at discharge Time Spent With Patient Time: Total time managing care of this patient today ____ minutes. Quality Stroke Does the patient have a stroke diagnosis?: No VTE Prior VTE?: No VTE Risk Level:: Medical - moderate - high VTE Device Contraindication: Treatment Not Indicated VTE Drug Contraindication: N/A - Med Ordered
[2023-06-06] MEDS: Amiodarone HCL 200 MG TABLET 400 MG PO (08:56)
[2023-06-06] MEDS: Atorvastatin Calcium 80 MG TABLET PO (08:56)
[2023-06-06] MEDS: Docusate Sodium 100 MG CAPSULE PO ×2 (08:56→21:24)
[2023-06-06] MEDS: Cholecalciferol (Vitamin D3) 25 MCG TABLET PO (08:57)
[2023-06-06] MEDS: oxyBUTYnin chloride 5 MG TABLET PO ×2 (08:57→21:24)
[2023-06-06] MEDS: Cyanocobalamin (Vitamin B-12) 1,000 MCG TABLET 1000 MCG PO (08:57)
[2023-06-06] MEDS: Metoprolol Succinate ER 50 MG TAB.ER.24H PO (08:57)
[2023-06-06] MEDS: Clopidogrel Bisulfate 75 MG TABLET PO (09:11)
[2023-06-06 09:45] LABS: Hematocrit 24.4 % (37.0-47.0); Hemoglobin 7.8 g/dl (12.0-16.0); Mean Corpuscular Hemoglobin 25.7 pg (27.0-33.0); Mean Corpuscular Volume 80.5 fL (80.0-98.0); Mean Platelet Volume 10.9 fL (9.4-12.3); Platelet Count 143 X10*3/uL (160-400); Red Blood Count 3.03 X10*6/uL (4.20-5.50); Red Cell Distribution Width 14.7 % (11.0-16.0); White Blood Count 4.5 X10*3/uL (4.8-10.8)
--- NOTE | 2023-06-06 17:18 | P.PNNP_ITS ---
Subjective Subjective Date of Service: 06/06/23 Interval history: she is feeling much better today, Cretine is better, no hematuria Physical Exam Vital Signs: Vital Signs: Last Vital Signs Temp 98.2 F 06/06/23 15:00 Pulse 73 06/06/23 15:00 Resp 16 06/06/23 15:00 BP 131/69 06/06/23 15:00 Pulse Ox 96 06/06/23 10:14 O2 Del Method Room Air 06/06/23 08:00 O2 Flow Rate 4 05/28/23 19:56 BMI result Body Mass Index 24.7 Const: Other: General: AO X 3, no acute distress Resp: CTA bilateral CVS: S1,S2, iregular iregular GI: +BS, NT, no distention Skin: No rash, swollen left hand, no redness, c/w hematoma ext: jo sling Neuro: motor grossly intact Psych: appropriate affect General: cooperative, healthy appearing, comfortable, no acute distress, in distress and tired appearing Orientation/consciousness: patient oriented x3 HEENT: Other: Unremarkable Head: Yes normal to inspection Face and sinus: Yes normal facial exam Mouth: moist mucous membranes Eyes: General: appearance normal, both eyes and all related structures Pupils: Equal, round and reactive pupils present Neck: Neck: Yes normal visual inspection, Yes full ROM and Yes trachea midline Chest: Chest palpation & inspection: normal inspection of the chest Resp: Effort & Inspection: normal respiratory effort, able to speak in compl ete sentences and no respiratory distress Auscultation: crackles, rhonchi and diminished lung sounds Cardio: Palpation: normal PMI Rate: regular rate Rhythm: regular rhythm Heart sounds: S1 normal heart sound present, S2 normal heart sound present, no gallops, Murmur heart sound present systolic II/ and at the right sternal border and no rubs Peripheral pulses: Peripheral pulses 2+ throughout GI: Inspection: Yes normal to inspection Palpation (GI): Soft to palpation Back/Spine/Pelvis: Other: unremarkable Cervical Spine: normal cervical lordosis Thoracic/Lumbar Spine: thoracic and lumbar spine normal to inspection Skin: General skin exam: no rashes or lesions noted Lesions: no lesions Rashes: no rashes Neuro: General: patient oriented x3, gait normal, tone normal and moves all extremities Cranial nerves: Yes Equal, round and reactive pupils present Extrem: Other: left arm abrasion ,soft cast General: Yes normal to inspection and Yes capillary refill normal Psych: Mental Status: mental status grossly normal Objective Data Labs 06/06/23 09:08 06/06/23 05:51 Labs: Laboratory Results - last 24 hr 06/04/23 06/06/23 06/06/23 08:45 05:51 09:08 WBC 4.5 L RBC 3.03 L Hgb 7.8 L Hct 24.4 L MCV 80.5 MCH 25.7 L MCHC 32.0 RDW 14.7 Plt Count 143 L D MPV 10.9 Absolute Nucleated RBC 0.000 Nucleated RBC % (auto) 0.0 Sodium 139 Potassium 4.9 D Chloride 109 H Carbon Dioxide 22 Anion Gap 13 BUN 24 H Creatinine 1.27 Estim Creat Clear Calc 39.1 Estimated GFR 42 Random Glucose 92 Calcium 8.7 Blood Type O Negative Antibody Screen NEGATIVE Crossmatch See Detail Microbiology Microbiology Results: Microbiology 05/29/23 19:13 Blood - Venous Blood Culture - Final No growth after 5 days. 05/29/23 19:13 Blood - Venous Blood Culture - Final No growth after 5 days. 05/28/23 00:06 Blood - Venous Blood Culture - Final Staphylococcus epidermidis Coag negative Staphylococcus 05/27/23 22:33 Blood - Venous Blood Culture - Final Staphylococcus epidermidis Procedures Date of Service Date of Service: 06/06/23 Assessment & Plan Assessment and plan (1) Urinary retention with incomplete bladder emptying: Status: Acute (2) Staphylococcus epidermidis bacteremia: Status: Acute (3) Acute UTI: Status: Acute (4) Left renal artery stenosis: Status: Acute (5) Acute kidney injury: Status: Acute Plan Pt with apparent obstructive nephropathy as cause of SUSAN, now with mahoney in; also had Uti Underlying unilateral KIM by hx. Creat is improving. BP is controlled. Recommend: avoid NSAIDs, contrast, monitor for full recovery Time Spent With Patient Time: Total time managing care of this patient today ____ minutes. Progress Note: Quality Stroke Does the patient have a stroke diagnosis?: No
[2023-06-06] MEDS: Ferrous Sulfate 324 MG TABLET.DR PO (21:24)
[2023-06-06] MEDS: Tamsulosin HCL 0.4 MG CAPSULE PO (21:24)
[2023-06-06] MEDS: PARoxetine HCL 40 MG TABLET PO (21:24)
--- NOTE | 2023-06-07 | ECG_ITS ---
Test Reason : follow un on afib Blood Pressure : / mmHG Vent. Rate : 068 BPM Atrial Rate : 000 BPM P-R Int : 000 ms QRS Dur : 110 ms QT Int : 426 ms P-R-T Axes : 000 058 184 degrees QTc Int : 452 ms Atrial fibrillation Incomplete left bundle branch block Left ventricular hypertrophy with repolarization abnormality ( Pierre product ) Abnormal ECG When compared with ECG of 27-MAY-2023 22:18, QT has shortened Referred By: Jl Vargas Electronically Signed By:Wilder Garcia
[2023-06-07] MEDS: Acetaminophen 325 MG TABLET 650 MG PO (02:00)
[2023-06-07 03:40] VITALS: BP 117/57; PULSE 76; RESP 16; TEMP 36.1; O2SAT 97
[2023-06-07] MEDS: Omeprazole 20 MG CAPSULE.DR PO (06:10)
[2023-06-07] MEDS: Levothyroxine Sodium 50 MCG TABLET PO (06:10)
[2023-06-07 07:29] VITALS: BP 116/51; PULSE 64; RESP 16; TEMP 36.4; O2SAT 96
--- NOTE | 2023-06-07 08:06 | P.PNIM_ITS ---
Subjective Subjective Date of Service: 06/07/23 Interval History: continue to make progress and feeling better Physical Exam Vital Signs: Vital Signs: Last Vital Signs Temp 97.6 F 06/07/23 07:29 Pulse 64 06/07/23 07:29 Resp 16 06/07/23 07:29 BP 116/51 L 06/07/23 07:29 Pulse Ox 96 06/07/23 07:29 O2 Del Method Room Air 06/07/23 07:29 O2 Flow Rate 4 05/28/23 19:56 BMI result Body Mass Index 24.7 Const: Other: General: AO X 3, no acute distress Resp: CTA bilateral CVS: S1,S2, iregular iregular GI: +BS, NT, no distention Skin: No rash, swollen left hand, no redness, c/w hematoma ext: jo sling Neuro: motor grossly intact Psych: appropriate affect Objective Data Active Medications Acetaminophen (Acetaminophen 325 Mg Tablet) 650 mg PO Q6H PRN PRN Reason: Pain, Mild (Pain Scale 1-3) Last Admin: 06/07/23 02:00 Dose: 650 mg Documented By: ASHLEY Albuterol Sulfate (Albuterol Sulfate 90 Mcg 8 Gm Inhaler) 2 puff INHALE Q4H PRN PRN Reason: shortness of breath or wheezing Atorvastatin Calcium (Atorvastatin Calcium 80 Mg Tablet) 80 mg PO DAILY [facility] Last Admin: 06/06/23 08:56 Dose: 80 mg Documented By: RENU Clopidogrel Bisulfate (Clopidogrel Bisulfate 75 Mg Tablet) 75 mg PO DAILY [facility] Last Admin: 06/06/23 09:11 Dose: 75 mg Documented By: RENU Cyanocobalamin (Cyanocobalamin (Vitamin B-12) 1,000 Mcg Tablet) 1,000 mcg PO DAILY [facility] Last Admin: 06/06/23 08:57 Dose: 1,000 mcg Documented By: RENU Docusate Sodium (Docusate Sodium 100 Mg Capsule) 100 mg PO BID [facility] Last Admin: 06/06/23 21:24 Dose: 100 mg Documented By: ASHLEY Ferrous Sulfate (Ferrous Sulfate 324 Mg Tablet.) 324 mg PO BEDTIME [facility] Last Admin: 06/06/23 21:24 Dose: 324 mg Documented By: ASHLEY Levothyroxine Sodium (Levothyroxine Sodium 50 Mcg Tablet) 50 mcg PO DAILY@0600 [facility] Last Admin: 06/07/23 06:10 Dose: 50 mcg Documented By: ASHLEY Magnesium Hydroxide (Milk Of Magnesia 30 Ml Oral.Susp) 30 ml PO DAILY PRN PRN Reason: Constipation Last Admin: 06/01/23 15:34 Dose: 30 ml Documented By: STUART Melatonin (Melatonin 3 Mg Tablet) 6 mg PO BEDTIME PRN PRN Reason: Insomnia Metoprolol Succinate (Metoprolol Succinate Er 50 Mg Tab.Er.24h) 50 mg PO DAILY [facility]; Protocol Last Admin: 06/06/23 08:57 Dose: 50 mg Documented By: RENU Pt Own (Interferon Beta-1a [Avonex] 30 Mcg/0.5 Ml Pen Injector Kit) 30 mcg IM TU [facility] Last Admin: 06/04/23 21:57 Dose: 30 mcg Documented By: MELQUIADES Pt Own (Fluticasone Salmeterol 113/14 Mcg 1) 1 puff INHALE RBID [facility] Last Admin: 06/07/23 07:03 Dose: Not Given Documented By: ARON Non-Admin Reason: prev shift Omeprazole (Omeprazole 20 Mg Capsule.Dr) 20 mg PO DAILY@0630 [facility] Last Admin: 06/07/23 06:10 Dose: 20 mg Documented By: ASLHEY Ondansetron HCl (Ondansetron Hcl 4 Mg/2 Ml Vial) 4 mg IVPUSH Q8H PRN PRN Reason: Nausea and Vomiting Last Admin: 06/05/23 06:25 Dose: 4 mg Documented By: MELQUIADES Oxybutynin Chloride (Oxybutynin Chloride 5 Mg Tablet) 5 mg PO BID [facility] Last Admin: 06/06/23 21:24 Dose: 5 mg Documented By: ASHLEY Paroxetine HCl (Paroxetine Hcl 40 Mg Tablet) 40 mg PO BEDTIME [facility] Last Admin: 06/06/23 21:24 Dose: 40 mg Documented By: ASHLEY Pharmacy Consult (Consult Rx Perform Med Rec) 1 each MISCELLANE ONCE PRN PRN Reason: Consult order Polyethylene Glycol (Polyethylene Glycol 3350 17 Gm Powd.Pack) 17 gm PO DAILY PRN PRN Reason: Constipation Last Admin: 06/01/23 15:34 Dose: 17 gm Documented By: STUART Sodium Chloride (0.9 % Sodium Chloride Flush 3 Ml Syringe) 3 ml IVFLUSH QSHIFT [facility] Last Admin: 06/06/23 21:24 Dose: 3 ml Documented By: ASHLEY Tamsulosin HCl (Tamsulosin Hcl 0.4 Mg Capsule) 0.4 mg PO BEDTIME [facility] Last Admin: 06/06/23 21:24 Dose: 0.4 mg Documented By: ASHLEY Vitamin D (Cholecalciferol (Vitamin D3) 25 Mcg Tablet) 25 mcg PO DAILY [facility] Last Admin: 06/06/23 08:57 Dose: 25 mcg Documented By: RENU Labs 06/06/23 09:08 06/06/23 05:51 Labs: Laboratory Results - last 24 hr 06/04/23 06/06/23 08:45 09:08 MCV 80.5 MCH 25.7 L MCHC 32.0 RDW 14.7 Plt Count 143 L D MPV 10.9 Absolute Nucleated RBC 0.000 Nucleated RBC % (auto) 0.0 Blood Type O Negative Antibody Screen NEGATIVE Crossmatch See Detail Assessment and Plan (1) CHF (congestive heart failure): Status: Inactive (2) Bacteremia: Status: Acute (3) Acute UTI: Status: Acute Plan This is a 67-year-old female with pertinent history of multiple sclerosis, COPD not on home oxygen, paroxysmal atrial fibrillation on Eliquis, essential hypertension, coronary artery disease, hypothyroidism, congestive heart failure with preserved ejection fraction who presents to the emergency department for evaluation dyspnea and admitted for heart failure but now has gram positive cocci bacteremia #Staph Aureus ) sepsis/ bacteremia, source unclear, echo no venegations, suspects pneumonia Started Vanco 05/29, DC'd vanco on 06/01 Started Kefzol 06/01, repeat cultures negative at 48 hour Final cultures now showing coag negative, staph epi and likely contamination doesn't need picc line and no further need for antibiotics #SUSAN--on CKD worse, ? ATN, sepsis. Work up with US showed bilateral hydronephrosis and was having urinary retention, so mahoney catheter was inserted and following this decompression, reanl function has steadily come down to now normal range. Nephrology and urology has been following #Hematuria after mahoney insertion on 06/02 with high output (over 1000 cc) , likely from bladder spasm from rapid decompression, CBI was initiated and later stoppe, urine is now clear. Eliquis has been on hold #Acute blood loss anemia--due to left tight hematoma and hematuria. Eliquis was on hold, hamtocrit dropped from 35 to 24 on 06/06, and was transfused 1 unit of RBC on 06/06 #.? Acute respiratory distress, likely due to acute exacerbation of diastolic heart failure, presently compensated Lasix was disdcontinued due to renal failure #.? Non displaced fracture of ulna.?Ortho recommends no intervention, swollen hand, ortho recommends no further action, continue sling on left side #.? Paroxysmal atrial fibrillation on Eliquis, received one time dig load, continue metoprolol , LVEF of 59% now LVEF 20-25%. She may need cardioversion, cardiology following. Started Amio loading 05/30 400 bid , holding eliquis today due to hamturia and left tight hematoma, may need to stop amio to prevent conversion to sinus in light of no anticoagulation, will discuss with cardiology and possible restart anticoagulation today if H/H is better #.? Hypothyroidism on Synthroid #.? Mood disorder.? Continue home mood stabilizers #.? Coronary artery disease.? On antiplatelet (on hold), beta-allyson and high- intensity statin, restart Plavix today if platlet over 100 #. History of MS--Interferon beta injection, will bring from home #. Thrombobytepenia--Plat dropped from 220 to 60 and now 140, unclear casuse, restart eliquis and plavix today if H/H is better DVT prophylaxis:? Eliquis on hold do to hematuria, hematoma and low platlets, add compression device Full code need for inpatient: SUSAN, heart failure, afib management PT working with her on mobility, will definately need rehab at discharge Time Spent With Patient Time: Total time managing care of this patient today ____ minutes. Quality Stroke Does the patient have a stroke diagnosis?: No VTE Prior VTE?: No VTE Risk Level:: Medical - moderate - high VTE Device Contraindication: Treatment Not Indicated VTE Drug Contraindication: N/A - Med Ordered
[2023-06-07 08:20] LABS: Hematocrit 28.2 % (37.0-47.0); Hemoglobin 9.2 g/dl (12.0-16.0); Mean Corpuscular HGB Conc 32.6 g/dl (31.0-35.0); Mean Corpuscular Hemoglobin 26.8 pg (27.0-33.0); Mean Corpuscular Volume 82.2 fL (80.0-98.0); Mean Platelet Volume 10.7 fL (9.4-12.3); Platelet Count 170 X10*3/uL (160-400); Red Blood Count 3.43 X10*6/uL (4.20-5.50); Red Cell Distribution Width 15.1 % (11.0-16.0); White Blood Count 5.2 X10*3/uL (4.8-10.8)
[2023-06-07 09:15] LABS: Anion Gap 11 (12-20); Blood Urea Nitrogen 19 mg/dL (9-16); Calcium 8.7 mg/dL (8.4-10.2); Carbon Dioxide 26 mmol/L (22-29); Chloride 109 mmol/L (96-108); Creatinine Clr Calc Pharmacy 49.6; Estimated Glomerular Filt Rate 55; Glucose Random 80 mg/dL (60-115); Potassium 3.8 mmol/L (3.3-5.1); Sodium 142 mmol/L (135-145)
[2023-06-07] MEDS: Cholecalciferol (Vitamin D3) 25 MCG TABLET PO (09:38)
[2023-06-07] MEDS: Cyanocobalamin (Vitamin B-12) 1,000 MCG TABLET 1000 MCG PO (09:38)
[2023-06-07] MEDS: Metoprolol Succinate ER 50 MG TAB.ER.24H PO (09:38)
[2023-06-07] MEDS: Clopidogrel Bisulfate 75 MG TABLET PO (09:38)
[2023-06-07] MEDS: Atorvastatin Calcium 80 MG TABLET PO (09:38)
[2023-06-07] MEDS: oxyBUTYnin chloride 5 MG TABLET PO ×2 (09:38→22:03)
[2023-06-07] MEDS: Docusate Sodium 100 MG CAPSULE PO ×2 (09:38→22:03)
[2023-06-07] MEDS: 0.9 % Sodium Chloride Flush 3 ML SYRINGE IVFLUSH ×3 (09:39→22:04)
[2023-06-07 15:33] VITALS: BP 124/67; PULSE 71; RESP 16; TEMP 36.6; O2SAT 99
[2023-06-07 20:00] VITALS: BP 122/59; PULSE 70; RESP 16; TEMP 36.6; O2SAT 97
[2023-06-07] MEDS: Ferrous Sulfate 324 MG TABLET.DR PO (22:03)
[2023-06-07] MEDS: PARoxetine HCL 40 MG TABLET PO (22:03)
[2023-06-07] MEDS: Tamsulosin HCL 0.4 MG CAPSULE PO (22:03)
--- NOTE | 2023-06-07 23:34 | PC.NURSE ---
IV access site not patent/outdated, was removed and patient is refusing insertion of a new one. Is not receiving anything IV at this time. Dr Weston made aware.
[2023-06-08 04:00] VITALS: BP 100/57; PULSE 68; RESP 16; TEMP 36.5; O2SAT 97
[2023-06-08] MEDS: Levothyroxine Sodium 50 MCG TABLET PO (06:26)
[2023-06-08] MEDS: Omeprazole 20 MG CAPSULE.DR PO (06:26)
[2023-06-08 08:00] VITALS: BP 140/62; PULSE 80; RESP 16; TEMP 36; O2SAT 99
[2023-06-08 08:04] LABS: Anion Gap 11 (12-20); Blood Urea Nitrogen 16 mg/dL (9-16); Calcium 8.7 mg/dL (8.4-10.2); Carbon Dioxide 27 mmol/L (22-29); Chloride 108 mmol/L (96-108); Creatinine Clr Calc Pharmacy 52.3; Estimated Glomerular Filt Rate 58; Glucose Random 86 mg/dL (60-115); Potassium 3.9 mmol/L (3.3-5.1); Sodium 142 mmol/L (135-145)
[2023-06-08] MEDS: Cholecalciferol (Vitamin D3) 25 MCG TABLET PO (08:19)
[2023-06-08] MEDS: Docusate Sodium 100 MG CAPSULE PO ×2 (08:19→21:43)
[2023-06-08] MEDS: oxyBUTYnin chloride 5 MG TABLET PO ×2 (08:19→21:43)
[2023-06-08] MEDS: Cyanocobalamin (Vitamin B-12) 1,000 MCG TABLET 1000 MCG PO (08:20)
[2023-06-08] MEDS: Atorvastatin Calcium 80 MG TABLET PO (08:20)
[2023-06-08] MEDS: Clopidogrel Bisulfate 75 MG TABLET PO (08:20)
[2023-06-08] MEDS: Metoprolol Succinate ER 50 MG TAB.ER.24H PO (08:20)
[2023-06-08 15:31] VITALS: BP 140/66; PULSE 65; RESP 18; TEMP 36; O2SAT 98
--- NOTE | 2023-06-08 19:14 | P.PNIM_ITS ---
Subjective Subjective Date of Service: 06/08/23 <KARLY Lopez - Last Filed: 06/08/23 19:33> 06/09/23 <Macario Armenta DO - Last Filed: 06/09/23 16:30> Interval History: Follow-up for patient with left elbow fracture, CHF exacerbation, hematuria, and hydronephrosis No acute issues overnight Patient reports being achy but overall feeling much better Swelling has reduced in left hand No pain with finger movements Denies hematuria <KARLY Lopez - Last Filed: 06/08/23 19:33> Review of Systems Negative except for that stated in the HPI <KARLY Lopez - Last Filed: 06/08/23 19:33> Physical Exam 2 Vital Signs: Vital Signs: Last Vital Signs Temp 96.8 F 06/08/23 15:31 Pulse 65 06/08/23 15:31 Resp 18 06/08/23 15:31 BP 140/66 H 06/08/23 15:31 Pulse Ox 98 06/08/23 15:31 O2 Del Method Room Air 06/08/23 15:31 O2 Flow Rate 4 05/28/23 19:56 BMI result Body Mass Index 24.7 <KARLY Lopez - Last Filed: 06/08/23 19:33> General: AOx3, no acute distress Resp: CTA bilaterally CVS: S1, S2, irregularly irregular GI: +BS, NT, no distention Skin: No rash Neuro: Cranial nerves II-XII grossly intact bilaterally. Motor grossly intact bilaterally Extremities: No edema. Left upper extremity in sling, mild swelling in right hand Psych: Appropriate affect <KARLY Lopez Last Filed: 06/08/23 19:33> Objective Data Active Medications Acetaminophen (Acetaminophen 325 Mg Tablet) 650 mg PO Q6H PRN PRN Reason: Pain, Mild (Pain Scale 1-3) Last Admin: 06/07/23 02:00 Dose: 650 mg Documented By: ASHLEY Albuterol Sulfate (Albuterol Sulfate 90 Mcg 8 Gm Inhaler) 2 puff INHALE Q4H PRN PRN Reason: shortness of breath or wheezing Atorvastatin Calcium (Atorvastatin Calcium 80 Mg Tablet) 80 mg PO DAILY [facility] Last Admin: 06/08/23 08:20 Dose: 80 mg Documented By: CONRAD Clopidogrel Bisulfate (Clopidogrel Bisulfate 75 Mg Tablet) 75 mg PO DAILY [facility] Last Admin: 06/08/23 08:20 Dose: 75 mg Documented By: CONRAD Cyanocobalamin (Cyanocobalamin (Vitamin B-12) 1,000 Mcg Tablet) 1,000 mcg PO D AILY [facility] Last Admin: 06/08/23 08:20 Dose: 1,000 mcg Documented By: CONRAD Docusate Sodium (Docusate Sodium 100 Mg Capsule) 100 mg PO BID [facility] Last Admin: 06/08/23 08:19 Dose: 100 mg Documented By: CONRAD Ferrous Sulfate (Ferrous Sulfate 324 Mg Tablet.) 324 mg PO BEDTIME [facility] Last Admin: 06/07/23 22:03 Dose: 324 mg Documented By: ASHLEY Levothyroxine Sodium (Levothyroxine Sodium 50 Mcg Tablet) 50 mcg PO DAILY@0600 [facility] Last Admin: 06/08/23 06:26 Dose: 50 mcg Documented By: ASHLEY Magnesium Hydroxide (Milk Of Magnesia 30 Ml Oral.Susp) 30 ml PO DAILY PRN PRN Reason: Constipation Last Admin: 06/01/23 15:34 Dose: 30 ml Documented By: STUART Melatonin (Melatonin 3 Mg Tablet) 6 mg PO BEDTIME PRN PRN Reason: Insomnia Metoprolol Succinate (Metoprolol Succinate Er 50 Mg Tab.Er.24h) 50 mg PO DAILY [facility]; Protocol Last Admin: 06/08/23 08:20 Dose: 50 mg Documented By: CONRAD Pt Own (Interferon Beta-1a [Avonex] 30 Mcg/0.5 Ml Pen Injector Kit) 30 mcg IM TU [facility] Last Admin: 06/04/23 21:57 Dose: 30 mcg Documented By: MELQUIADES Pt Own (Fluticasone Salmeterol 113/14 Mcg 1) 1 puff INHALE RBID [facility] Last Admin: 06/08/23 08:21 Dose: Not Given Documented By: CONRAD Non-Admin Reason: Patient Refused Omeprazole (Omeprazole 20 Mg Capsule.) 20 mg PO DAILY@0630 [facility] Last Admin: 06/08/23 06:26 Dose: 20 mg Documented By: ASHLEY Ondansetron HCl (Ondansetron Hcl 4 Mg/2 Ml Vial) 4 mg IVPUSH Q8H PRN PRN Reason: Nausea and Vomiting Last Admin: 06/05/23 06:25 Dose: 4 mg Documented By: MELQUIADES Oxybutynin Chloride (Oxybutynin Chloride 5 Mg Tablet) 5 mg PO BID [facility] Last Admin: 06/08/23 08:19 Dose: 5 mg Documented By: CONRAD Paroxetine HCl (Paroxetine Hcl 40 Mg Tablet) 40 mg PO BEDTIME [facility] Last Admin: 06/07/23 22:03 Dose: 40 mg Documented By: ASHLEY Pharmacy Consult (Consult Rx Perform Med Rec) 1 each MISCELLANE ONCE PRN PRN Reason: Consult order Polyethylene Glycol (Polyethylene Glycol 3350 17 Gm Powd.Pack) 17 gm PO DAILY PRN PRN Reason: Constipation Last Admin: 06/01/23 15:34 Dose: 17 gm Documented By: STUART Sodium Chloride (0.9 % Sodium Chloride Flush 3 Ml Syringe) 3 ml IVFLUSH QSHIFT [facility] Last Admin: 06/08/23 15:31 Dose: Not Given Documented By: CONRAD Non-Admin Reason: No Access Tamsulosin HCl (Tamsulosin Hcl 0.4 Mg Capsule) 0.4 mg PO BEDTIME [facility] Last Admin: 06/07/23 22:03 Dose: 0.4 mg Documented By: ASHLEY Vitamin D (Cholecalciferol (Vitamin D3) 25 Mcg Tablet) 25 mcg PO DAILY [facility] Last Admin: 06/08/23 08:19 Dose: 25 mcg Documented By: CONRAD <KARLY Lopez - Last Filed: 06/08/23 19:33> Labs CBC & Chem 7: 06/07/23 07:06 06/08/23 07:27 <KARLY Lopez - Last Filed: 06/08/23 19:33> Labs: Laboratory Results - last 24 hr 06/08/23 07:27 Anion Gap 11 L Estim Creat Clear Calc 52.3 Estimated GFR 58 Random Glucose 86 Calcium 8.7 <KARLY Lopez - Last Filed: 06/08/23 19:33> Assessment and Plan (1) Acute kidney injury: Status: Acute <KARLY Lopez - Last Filed: 06/08/23 19:33> (2) CHF exacerbation: Status: Acute <KARLY Lopez - Last Filed: 06/08/23 19:33> (3) Acute UTI: Status: Acute <KARLY Lopez - Last Filed: 06/08/23 19:33> Assessment and Plan: This is a 67-year-old female with pertinent history of multiple sclerosis, COPD not on home oxygen, paroxysmal atrial fibrillation on Eliquis, essential hypertension, coronary artery disease, hypothyroidism, congestive heart failure with preserved ejection fraction who presents to the emergency department for evaluation dyspnea and admitted for heart failure but now has gram positive cocci bacteremia #Staph Aureus ) sepsis/ bacteremia, source unclear, echo no venegations, suspec ts pneumonia Started Vanco 05/29,? DC'd vanco on 06/01 Started Kefzol 06/01, repeat cultures negative at 48 hour Final cultures now showing coag negative, staph epi and likely contamination doesn't need picc line and no further need for antibiotics #SUSAN--on CKD worse, ? ATN, sepsis. Work up with US showed bilateral hydronephrosis and was having urinary retention, so mahoney catheter was inserted and following this decompression, reanl function has steadily come down to now normal range.? Nephrology and urology has been following #Hematuria after mahoney insertion on 06/02 with high output (over 1000 cc) , likely from bladder spasm from rapid decompression, CBI was initiated and later stoppe, urine is now clear. Eliquis has been on hold #Acute blood loss anemia--due to left tight hematoma and hematuria. Eliquis on hold, hamtocrit dropped from 35 to 24 on 06/06, and was transfused 1 unit of RBC on 06/06. Restart Eliquis tomorrow if H&H stable #.? Acute respiratory distress, likely due to acute exacerbation of diastolic heart failure, presently compensated Lasix was disdcontinued due to renal lali lure #.? Non displaced fracture of ulna.?Ortho recommends no intervention, swollen hand, ortho recommends no further action, continue sling on left side #.? Paroxysmal atrial fibrillation on Eliquis, received one time dig load, continue metoprolol ,? LVEF of 59% now LVEF 20-25%. She may need cardioversion, cardiology following. Started Amio loading 05/30 400 bid , holding eliquis today due to hamturia and left tight hematoma, may need to stop amio to prevent conversion to sinus in light of no anticoagulation, will discuss with cardiology #.? Hypothyroidism on Synthroid #.? Mood disorder.? Continue home mood stabilizers #.? Coronary artery disease.? Continue Plavix, beta-allyson, and high-intensity statin #. History of MS--Interferon beta injection, will bring from home #. Thrombobytepenia--Plat dropped from 220 to 60 and now 170,? unclear cause, restart eliquis and Plavix tomorrow if H/H is better DVT prophylaxis:? Eliquis on hold do to hematuria, hematoma and low platelets, add compression device Full code need for inpatient: SUSAN, heart failure, afib management, PT working with her on mobility, will definitely need rehab? at discharge <KARLY Lopez - Last Filed: 06/08/23 19:33> Time Spent With Patient Time: Total time managing care of this patient today ____ minutes. <KARLY Lopez - Last Filed: 06/08/23 19:33> Quality Stroke Does the patient have a stroke diagnosis?: No <KARLY Lopez Last Filed: 06/08/23 19:33> VTE Prior VTE?: No <KARLY Lopez Last Filed: 06/08/23 19:33> VTE Risk Level:: Medical - moderate - high <KARLY Lopez Last Filed: 06/08/23 19:33> VTE Device Contraindication: Treatment Not Indicated <KARLY Lopez Last Filed: 06/08/23 19:33> VTE Drug Contraindication: N/A - Med Ordered <KARLY Lopez Last Filed: 06/08/23 19:33>
[2023-06-08 19:33] VITALS: BP 118/64; PULSE 100; RESP 18; TEMP 36.2; O2SAT 97
[2023-06-08] MEDS: PARoxetine HCL 40 MG TABLET PO (21:43)
[2023-06-08] MEDS: Ferrous Sulfate 324 MG TABLET.DR PO (21:43)
[2023-06-08] MEDS: Tamsulosin HCL 0.4 MG CAPSULE PO (21:43)
[2023-06-09 03:35] VITALS: BP 133/78; PULSE 70; RESP 18; TEMP 36.6; O2SAT 97
[2023-06-09] MEDS: Levothyroxine Sodium 50 MCG TABLET PO (05:41)
[2023-06-09] MEDS: Omeprazole 20 MG CAPSULE.DR PO (05:41)
[2023-06-09 06:28] LABS: Hematocrit 28.5 % (37.0-47.0); Hemoglobin 9.1 g/dl (12.0-16.0); Mean Corpuscular HGB Conc 31.9 g/dl (31.0-35.0); Mean Corpuscular Hemoglobin 26.6 pg (27.0-33.0); Mean Corpuscular Volume 83.3 fL (80.0-98.0); Mean Platelet Volume 9.8 fL (9.4-12.3); Platelet Count 258 X10*3/uL (160-400); Red Blood Count 3.42 X10*6/uL (4.20-5.50); Red Cell Distribution Width 15.8 % (11.0-16.0); White Blood Count 7.1 X10*3/uL (4.8-10.8)
[2023-06-09 07:48] VITALS: BP 136/70; PULSE 88; RESP 18; TEMP 36.2; O2SAT 97
[2023-06-09] MEDS: oxyBUTYnin chloride 5 MG TABLET PO ×2 (08:18→20:01)
[2023-06-09] MEDS: Atorvastatin Calcium 80 MG TABLET PO (08:18)
[2023-06-09] MEDS: Cholecalciferol (Vitamin D3) 25 MCG TABLET PO (08:18)
[2023-06-09] MEDS: Clopidogrel Bisulfate 75 MG TABLET PO (08:19)
[2023-06-09] MEDS: Metoprolol Succinate ER 50 MG TAB.ER.24H PO (08:19)
[2023-06-09] MEDS: Docusate Sodium 100 MG CAPSULE PO ×2 (08:19→20:01)
[2023-06-09] MEDS: Cyanocobalamin (Vitamin B-12) 1,000 MCG TABLET 1000 MCG PO (08:32)
--- NOTE | 2023-06-09 14:08 | P.PNIM_ITS ---
Subjective Subjective Date of Service: 06/09/23 Interval History: Follow-up for patient with left elbow fracture, CHF exacerbation, hematuria, and hydronephrosis No pain Review of Systems Negative except for that stated in the HPI Physical Exam Vital Signs: Vital Signs: Last Vital Signs Temp 97.2 F 06/09/23 07:48 Pulse 88 06/09/23 07:48 Resp 18 06/09/23 07:48 BP 136/70 06/09/23 07:48 Pulse Ox 97 06/09/23 07:48 O2 Del Method Room Air 06/09/23 07:48 O2 Flow Rate 4 05/28/23 19:56 BMI result Body Mass Index 24.7 Appearing in no acute distress lung sounds are clear to auscultation heart regular rate rhythm, clear S1, S2 positive bowel sounds, abdomen is soft, nontender neuro patient is alert x3, no focal deficits Left arm cast Objective Data Active Medications Acetaminophen (Acetaminophen 325 Mg Tablet) 650 mg PO Q6H PRN PRN Reason: Pain, Mild (Pain Scale 1-3) Last Admin: 06/07/23 02:00 Dose: 650 mg Documented By: ASHLEY Albuterol Sulfate (Albuterol Sulfate 90 Mcg 8 Gm Inhaler) 2 puff INHALE Q4H PRN PRN Reason: shortness of breath or wheezing Atorvastatin Calcium (Atorvastatin Calcium 80 Mg Tablet) 80 mg PO DAILY [facility] Last Admin: 06/09/23 08:18 Dose: 80 mg Documented By: LOPEZ Clopidogrel Bisulfate (Clopidogrel Bisulfate 75 Mg Tablet) 75 mg PO DAILY [facility] Last Admin: 06/09/23 08:19 Dose: 75 mg Documented By: LOPEZ Cyanocobalamin (Cyanocobalamin (Vitamin B-12) 1,000 Mcg Tablet) 1,000 mcg PO DAILY [facility] Last Admin: 06/09/23 08:32 Dose: 1,000 mcg Documented By: LOPEZ Docusate Sodium (Docusate Sodium 100 Mg Capsule) 100 mg PO BID [facility] Last Admin: 06/09/23 08:19 Dose: 100 mg Documented By: LOPEZ Ferrous Sulfate (Ferrous Sulfate 324 Mg Tablet.) 324 mg PO BEDTIME [facility] Last Admin: 06/08/23 21:43 Dose: 324 mg Documented By: ALEXANDER Levothyroxine Sodium (Levothyroxine Sodium 50 Mcg Tablet) 50 mcg PO DAILY@0600 [facility] Last Admin: 06/09/23 05:41 Dose: 50 mcg Documented By: ALEXANDER Magnesium Hydroxide (Milk Of Magnesia 30 Ml Oral.Susp) 30 ml PO DAILY PRN PRN Reason: Constipation Last Admin: 06/01/23 15:34 Dose: 30 ml Documented By: STUART Melatonin (Melatonin 3 Mg Tablet) 6 mg PO BEDTIME PRN PRN Reason: Insomnia Metoprolol Succinate (Metoprolol Succinate Er 50 Mg Tab.Er.24h) 50 mg PO DAILY [facility]; Protocol Last Admin: 06/09/23 08:19 Dose: 50 mg Documented By: LOPEZ Pt Own (Interferon Beta-1a [Avonex] 30 Mcg/0.5 Ml Pen Injector Kit) 30 mcg IM TU [facility] Last Admin: 06/04/23 21:57 Dose: 30 mcg Documented By: MELQUIADES Pt Own (Fluticasone Salmeterol 113/14 Mcg 1) 1 puff INHALE RBID [facility] Last Admin: 06/09/23 08:32 Dose: Not Given Documented By: LOPEZ Non-Admin Reason: Patient Refused Omeprazole (Omeprazole 20 Mg Capsule.) 20 mg PO DAILY@0630 [facility] Last Admin: 06/09/23 05:41 Dose: 20 mg Documented By: ALEXANDER Ondansetron HCl (Ondansetron Hcl 4 Mg/2 Ml Vial) 4 mg IVPUSH Q8H PRN PRN Reason: Nausea and Vomiting Last Admin: 06/05/23 06:25 Dose: 4 mg Documented By: MELQUIADES Oxybutynin Chloride (Oxybutynin Chloride 5 Mg Tablet) 5 mg PO BID [facility] Last Admin: 06/09/23 08:18 Dose: 5 mg Documented By: LOPEZ Paroxetine HCl (Paroxetine Hcl 40 Mg Tablet) 40 mg PO BEDTIME [facility] Last Admin: 06/08/23 21:43 Dose: 40 mg Documented By: ALEXANDER Pharmacy Consult (Consult Rx Perform Med Rec) 1 each MISCELLANE ONCE PRN PRN Reason: Consult order Polyethylene Glycol (Polyethylene Glycol 3350 17 Gm Powd.Pack) 17 gm PO DAILY PRN PRN Reason: Constipation Last Admin: 06/01/23 15:34 Dose: 17 gm Documented By: STUART Sodium Chloride (0.9 % Sodium Chloride Flush 3 Ml Syringe) 3 ml IVFLUSH QSHIFT [facility] Last Admin: 06/09/23 08:20 Dose: Not Given Documented By: LOPEZ Non-Admin Reason: No Access Tamsulosin HCl (Tamsulosin Hcl 0.4 Mg Capsule) 0.4 mg PO BEDTIME [facility] Last Admin: 06/08/23 21:43 Dose: 0.4 mg Documented By: ALEXANDER Vitamin D (Cholecalciferol (Vitamin D3) 25 Mcg Tablet) 25 mcg PO DAILY [facility] Last Admin: 06/09/23 08:18 Dose: 25 mcg Documented By: LOPEZ Labs 06/09/23 06:18 06/08/23 07:27 Labs: Laboratory Results - last 24 hr 06/09/23 06:18 MCV 83.3 MCH 26.6 L MCHC 31.9 RDW 15.8 Plt Count 258 D MPV 9.8 Absolute Nucleated RBC 0.000 Nucleated RBC % (auto) 0.0 Assessment and Plan (1) Acute kidney injury: Status: Acute (2) CHF exacerbation: Status: Acute (3) Acute UTI: Status: Acute Plan This is a 67-year-old female with pertinent history of multiple sclerosis, COPD not on home oxygen, paroxysmal atrial fibrillation on Eliquis, essential hypertension, coronary artery disease, hypothyroidism, congestive heart failure with preserved ejection fraction who presents to the emergency department for evaluation dyspnea and admitted for heart failure but now has gram positive cocci bacteremia Thrombobytepenia Plat dropped from 220 to 60 and now 170 unclear cause plavix and eliquis restarted SUSAN on CKD. Resolved urinary retention Work up with US showed bilateral hydronephrosis s/p mahoney cath, removed today Hematuria s/p CBI urine is now clear. restart Eliquis and monitor urine Acute blood loss anemia due to left thigh hematoma and hematuria. Eliquis on hold initially transfused 1 unit of PRBC on 06/06. Restart Eliquis Acute respiratory distress likely due to acute exacerbation of diastolic heart failure presently compensated Lasix was discontinued due to renal failure Non displaced fracture of ulna.? Ortho recommends no intervention swollen hand ortho recommends no further action continue sling on left side Paroxysmal atrial fibrillation on Eliquis, received one time dig load, continue metoprolol ,? LVEF of 59% now LVEF 20-25%. She may need cardioversion, cardiology following. Started Amio loading 05/30 400 bid , holding eliquis today due to hamturia and left tight hematoma, may need to stop amio to prevent conversion to sinus in light of no anticoagulation, will discuss with cardiology Hypothyroidism Synthroid Mood disorder.? Continue home mood stabilizers Coronary artery disease.? Continue Plavix, beta-allyson, and high-intensity statin History of MS Interferon beta injection, will bring from home DVT prophylaxis:? Eliquis on hold do to hematuria, hematoma and low platelets, add compression device Full code attending Dr. Love need for inpatient: SUSAN, heart failure, afib management, PT working with her on mobility, will definitely need rehab? at discharge Time Spent With Patient Time: Total time managing care of this patient today ____ minutes. Quality Stroke Does the patient have a stroke diagnosis?: No VTE Prior VTE?: No VTE Risk Level:: Medical - moderate - high VTE Device Contraindication: Treatment Not Indicated VTE Drug Contraindication: N/A - Med Ordered
[2023-06-09 15:44] VITALS: BP 147/67; PULSE 83; RESP 20; TEMP 36; O2SAT 98
[2023-06-09 19:57] VITALS: BP 135/68; PULSE 62; RESP 20; TEMP 36; O2SAT 95
[2023-06-09] MEDS: Apixaban 5 MG TABLET PO (20:01)
[2023-06-09] MEDS: PARoxetine HCL 40 MG TABLET PO (20:01)
[2023-06-09] MEDS: Tamsulosin HCL 0.4 MG CAPSULE PO (20:01)
[2023-06-09] MEDS: Ferrous Sulfate 324 MG TABLET.DR PO (20:01)
--- NOTE | 2023-06-10 01:02 | PC.NURSE ---
0015 mahoney removed yesterday due to void at 1800 did not void bladder scanned for 610ml at [address] [facility] for 400 ml clear yellow urine.
[2023-06-10 03:20] VITALS: BP 127/59; PULSE 75; RESP 19; TEMP 36.1; O2SAT 99
[2023-06-10] MEDS: Levothyroxine Sodium 50 MCG TABLET PO (05:38)
[2023-06-10] MEDS: Omeprazole 20 MG CAPSULE.DR PO (05:39)
[2023-06-10 06:25] LABS: Hematocrit 28.8 % (37.0-47.0); Hemoglobin 9.1 g/dl (12.0-16.0); Mean Corpuscular HGB Conc 31.6 g/dl (31.0-35.0); Mean Corpuscular Hemoglobin 26.3 pg (27.0-33.0); Mean Corpuscular Volume 83.2 fL (80.0-98.0); Mean Platelet Volume 9.8 fL (9.4-12.3); Platelet Count 280 X10*3/uL (160-400); Red Blood Count 3.46 X10*6/uL (4.20-5.50); Red Cell Distribution Width 15.9 % (11.0-16.0); White Blood Count 6.7 X10*3/uL (4.8-10.8)
[2023-06-10 06:38] LABS: Anion Gap 11 (12-20); Blood Urea Nitrogen 15 mg/dL (9-16); Calcium 8.6 mg/dL (8.4-10.2); Carbon Dioxide 27 mmol/L (22-29); Chloride 110 mmol/L (96-108); Creatinine Clr Calc Pharmacy 50.7; Estimated Glomerular Filt Rate 56; Glucose Random 89 mg/dL (60-115); Potassium 3.9 mmol/L (3.3-5.1); Sodium 144 mmol/L (135-145)
[2023-06-10 07:06] VITALS: BP 129/91; PULSE 79; RESP 18; TEMP 36.1; O2SAT 98
[2023-06-10] MEDS: oxyBUTYnin chloride 5 MG TABLET PO ×2 (08:56→20:56)
[2023-06-10] MEDS: Atorvastatin Calcium 80 MG TABLET PO (08:56)
[2023-06-10] MEDS: Metoprolol Succinate ER 50 MG TAB.ER.24H PO (08:56)
[2023-06-10] MEDS: Cholecalciferol (Vitamin D3) 25 MCG TABLET PO (08:56)
[2023-06-10] MEDS: Apixaban 5 MG TABLET PO ×2 (08:57→20:55)
[2023-06-10] MEDS: Clopidogrel Bisulfate 75 MG TABLET PO (08:57)
[2023-06-10] MEDS: Docusate Sodium 100 MG CAPSULE PO ×2 (08:57→20:55)
[2023-06-10] MEDS: Cyanocobalamin (Vitamin B-12) 1,000 MCG TABLET 1000 MCG PO (08:57)
--- NOTE | 2023-06-10 12:53 | P.PNIM_ITS ---
Subjective Subjective Date of Service: 06/10/23 Interval History: Follow-up for patient with left elbow fracture, CHF exacerbation, hematuria, and hydronephrosis No pain Physical Exam Vital Signs: Vital Signs: Last Vital Signs Temp 97.0 F 06/10/23 07:06 Pulse 79 06/10/23 07:06 Resp 18 06/10/23 07:06 BP 129/91 H 06/10/23 07:06 Pulse Ox 98 06/10/23 07:06 O2 Del Method Room Air 06/10/23 07:06 O2 Flow Rate 4 05/28/23 19:56 BMI result Body Mass Index 24.7 Appearing in no acute distress lung sounds are clear to auscultation heart regular rate rhythm, clear S1, S2 positive bowel sounds, abdomen is soft, nontender neuro patient is alert x3, no focal deficits Objective Data Active Medications Acetaminophen (Acetaminophen 325 Mg Tablet) 650 mg PO Q6H PRN PRN Reason: Pain, Mild (Pain Scale 1-3) Last Admin: 06/07/23 02:00 Dose: 650 mg Documented By: ASHLEY Albuterol Sulfate (Albuterol Sulfate 90 Mcg 8 Gm Inhaler) 2 puff INHALE Q4H PRN PRN Reason: shortness of breath or wheezing Apixaban (Apixaban 5 Mg Tablet) 5 mg PO BID [facility] Last Admin: 06/10/23 08:57 Dose: 5 mg Documented By: LOPEZ Atorvastatin Calcium (Atorvastatin Calcium 80 Mg Tablet) 80 mg PO DAILY [facility] Last Admin: 06/10/23 08:56 Dose: 80 mg Documented By: LOPEZ Clopidogrel Bisulfate (Clopidogrel Bisulfate 75 Mg Tablet) 75 mg PO DAILY [facility] Last Admin: 06/10/23 08:57 Dose: 75 mg Documented By: LOPEZ Cyanocobalamin (Cyanocobalamin (Vitamin B-12) 1,000 Mcg Tablet) 1,000 mcg PO DAILY [facility] Last Admin: 06/10/23 08:57 Dose: 1,000 mcg Documented By: LOPEZ Docusate Sodium (Docusate Sodium 100 Mg Capsule) 100 mg PO BID [facility] Last Admin: 06/10/23 08:57 Dose: 100 mg Documented By: LOPEZ Ferrous Sulfate (Ferrous Sulfate 324 Mg Tablet.) 324 mg PO BEDTIME [facility] Last Admin: 06/09/23 20:01 Dose: 324 mg Documented By: MELQUIADES Levothyroxine Sodium (Levothyroxine Sodium 50 Mcg Tablet) 50 mcg PO DAILY@0600 [facility] Last Admin: 06/10/23 05:38 Dose: 50 mcg Documented By: MELQUIADES Magnesium Hydroxide (Milk Of Magnesia 30 Ml Oral.Susp) 30 ml PO DAILY PRN PRN Reason: Constipation Last Admin: 06/01/23 15:34 Dose: 30 ml Documented By: STUART Melatonin (Melatonin 3 Mg Tablet) 6 mg PO BEDTIME PRN PRN Reason: Insomnia Metoprolol Succinate (Metoprolol Succinate Er 50 Mg Tab.Er.24h) 50 mg PO DAILY [facility]; Protocol Last Admin: 06/10/23 08:56 Dose: 50 mg Documented By: LOPEZ Pt Own (Fluticasone Salmeterol 113/14 Mcg 1) 1 puff INHALE RBID [facility] Last Admin: 06/10/23 09:00 Dose: Not Given Documented By: LOPEZ Non-Admin Reason: Patient Refused Pt Own (Interferon Beta-1a [Avonex] 30 Mcg/0.5 Ml Pen Injector Kit) 30 mcg IM TU [facility] Omeprazole (Omeprazole 20 Mg Capsule.Dr) 20 mg PO DAILY@0630 [facility] Last Admin: 06/10/23 05:39 Dose: 20 mg Documented By: MELQUIADES Ondansetron HCl (Ondansetron Hcl 4 Mg/2 Ml Vial) 4 mg IVPUSH Q8H PRN PRN Reason: Nausea and Vomiting Last Admin: 06/05/23 06:25 Dose: 4 mg Documented By: MELQUIADES Oxybutynin Chloride (Oxybutynin Chloride 5 Mg Tablet) 5 mg PO BID [facility] Last Admin: 06/10/23 08:56 Dose: 5 mg Documented By: LOPEZ Paroxetine HCl (Paroxetine Hcl 40 Mg Tablet) 40 mg PO BEDTIME [facility] Last Admin: 06/09/23 20:01 Dose: 40 mg Documented By: MELQUIADES Pharmacy Consult (Consult Rx Perform Med Rec) 1 each MISCELLANE ONCE PRN PRN Reason: Consult order Polyethylene Glycol (Polyethylene Glycol 3350 17 Gm Powd.Pack) 17 gm PO DAILY PRN PRN Reason: Constipation Last Admin: 06/01/23 15:34 Dose: 17 gm Documented By: STUART Sodium Chloride (0.9 % Sodium Chloride Flush 3 Ml Syringe) 3 ml IVFLUSH QSHIFT [facility] Last Admin: 06/10/23 08:59 Dose: Not Given Documented By: LOPEZ Non-Admin Reason: No Access Tamsulosin HCl (Tamsulosin Hcl 0.4 Mg Capsule) 0.4 mg PO BEDTIME [facility] Last Admin: 06/09/23 20:01 Dose: 0.4 mg Documented By: MELQUIADES Vitamin D (Cholecalciferol (Vitamin D3) 25 Mcg Tablet) 25 mcg PO DAILY [facility] Last Admin: 06/10/23 08:56 Dose: 25 mcg Documented By: LOPEZ Labs 06/10/23 06:05 06/10/23 06:05 Labs: Laboratory Results - last 24 hr 06/10/23 06/10/23 06:05 06:05 MCV 83.2 MCH 26.3 L MCHC 31.6 RDW 15.9 Plt Count 280 MPV 9.8 Absolute Nucleated RBC 0.000 Nucleated RBC % (auto) 0.0 Anion Gap 11 L Estim Creat Clear Calc 50.7 Estimated GFR 56 Random Glucose 89 Calcium 8.6 Assessment and Plan (1) Acute kidney injury: Status: Acute (2) CHF exacerbation: Status: Acute (3) Acute UTI: Status: Acute Plan This is a 67-year-old female with pertinent history of multiple sclerosis, COPD not on home oxygen, paroxysmal atrial fibrillation on Eliquis, essential hypertension, coronary artery disease, hypothyroidism, congestive heart failure with preserved ejection fraction who presents to the emergency department for evaluation dyspnea and admitted for heart failure but now has gram positive cocci bacteremia Thrombobytepenia Plat dropped from 220 to 60 and now 170 unclear cause plavix and eliquis restarted SUSAN on CKD. Resolved urinary retention Work up with US showed bilateral hydronephrosis s/p mahoney cath, removed today Hematuria s/p CBI urine is now clear. eliquis restarted Acute blood loss anemia due to left thigh hematoma and hematuria. Eliquis on hold initially transfused 1 unit of PRBC on 06/06. Restart Eliquis Acute respiratory distress likely due to acute exacerbation of diastolic heart failure presently compensated Lasix was discontinued due to renal failure Non displaced fracture of ulna.? Ortho recommends no intervention swollen hand continue sling on left side for comfort Paroxysmal atrial fibrillation on Eliquis cardiology following. Started Amio loading 05/30/23 400 bid Hypothyroidism Synthroid Mood disorder.? Continue home mood stabilizers Coronary artery disease.? Continue Plavix, beta-allyson, and high-intensity statin History of MS Interferon beta injection, will bring from home DVT prophylaxis:? Eliquis on hold do to hematuria, hematoma and low platelets, add compression device Full code attending Dr. Love need for inpatient: SUSAN, heart failure, afib management, PT working with her on mobility, will definitely need rehab? at discharge Time Spent With Patient Time: Total time managing care of this patient today ____ minutes. Quality Stroke Does the patient have a stroke diagnosis?: No VTE Prior VTE?: No VTE Risk Level:: Medical - moderate - high VTE Device Contraindication: Treatment Not Indicated VTE Drug Contraindication: N/A - Med Ordered
[2023-06-10 15:44] VITALS: BP 150/73; PULSE 88; RESP 20; TEMP 36; O2SAT 98
--- NOTE | 2023-06-10 18:28 | PC.NURSE ---
Pt refused to get out of bed today, and refused to be washed by aides. Pt bladder scanned for concern of retention- 496 ml. Pt proceeded to have two incontinent voids there after.
[2023-06-10 20:00] VITALS: BP 149/68; PULSE 69; RESP 20; TEMP 36; O2SAT 98
[2023-06-10] MEDS: Ferrous Sulfate 324 MG TABLET.DR PO (20:55)
[2023-06-10] MEDS: PARoxetine HCL 40 MG TABLET PO (20:55)
[2023-06-10] MEDS: Tamsulosin HCL 0.4 MG CAPSULE PO (20:55)
[2023-06-10] MEDS: Acetaminophen 325 MG TABLET 650 MG PO (20:56)
[2023-06-11 01:58] VITALS: BP 125/65; PULSE 67; RESP 18; TEMP 36.3; O2SAT 98
[2023-06-11] MEDS: Omeprazole 20 MG CAPSULE.DR PO (05:56)
[2023-06-11] MEDS: Levothyroxine Sodium 50 MCG TABLET PO (05:56)
[2023-06-11 07:46] VITALS: BP 132/66; PULSE 70; RESP 16; TEMP 36; O2SAT 97
--- NOTE | 2023-06-11 08:20 | P.PNIM_ITS ---
Subjective Subjective Date of Service: 06/11/23 Interval History: Follow-up for patient with left elbow fracture, CHF exacerbation, hematuria, and hydronephrosis Having some nausea and abdominal pain today Physical Exam Vital Signs: Vital Signs: Last Vital Signs Temp 96.8 F 06/11/23 07:46 Pulse 70 06/11/23 07:46 Resp 16 06/11/23 07:46 BP 132/66 06/11/23 07:46 Pulse Ox 97 06/11/23 07:46 O2 Del Method Room Air 06/11/23 07:46 O2 Flow Rate 4 05/28/23 19:56 BMI result Body Mass Index 24.7 Appearing in no acute distress lung sounds are clear to auscultation heart regular rate rhythm, clear S1, S2 positive bowel sounds, abdomen is soft, diffusely tender neuro patient is alert x3, no focal deficits Objective Data Active Medications Acetaminophen (Acetaminophen 325 Mg Tablet) 650 mg PO Q6H PRN PRN Reason: Pain, Mild (Pain Scale 1-3) Last Admin: 06/10/23 20:56 Dose: 650 mg Documented By: JOE Albuterol Sulfate (Albuterol Sulfate 90 Mcg 8 Gm Inhaler) 2 puff INHALE Q4H PRN PRN Reason: shortness of breath or wheezing Apixaban (Apixaban 5 Mg Tablet) 5 mg PO BID [facility] Last Admin: 06/10/23 20:55 Dose: 5 mg Documented By: JOE Atorvastatin Calcium (Atorvastatin Calcium 80 Mg Tablet) 80 mg PO DAILY [facility] Last Admin: 06/10/23 08:56 Dose: 80 mg Documented By: LOPEZ Clopidogrel Bisulfate (Clopidogrel Bisulfate 75 Mg Tablet) 75 mg PO DAILY [facility] Last Admin: 06/10/23 08:57 Dose: 75 mg Documented By: LOPEZ Cyanocobalamin (Cyanocobalamin (Vitamin B-12) 1,000 Mcg Tablet) 1,000 mcg PO DAILY [facility] Last Admin: 06/10/23 08:57 Dose: 1,000 mcg Documented By: LOPEZ Docusate Sodium (Docusate Sodium 100 Mg Capsule) 100 mg PO BID [facility] Last Admin: 06/10/23 20:55 Dose: 100 mg Documented By: JOE Ferrous Sulfate (Ferrous Sulfate 324 Mg Tablet.) 324 mg PO BEDTIME [facility] Last Admin: 06/10/23 20:55 Dose: 324 mg Documented By: JOE Levothyroxine Sodium (Levothyroxine Sodium 50 Mcg Tablet) 50 mcg PO DAILY@0600 [facility] Last Admin: 06/11/23 05:56 Dose: 50 mcg Documented By: FRANCESCO Magnesium Hydroxide (Milk Of Magnesia 30 Ml Oral.Susp) 30 ml PO DAILY PRN PRN Reason: Constipation Last Admin: 06/01/23 15:34 Dose: 30 ml Documented By: STUART Melatonin (Melatonin 3 Mg Tablet) 6 mg PO BEDTIME PRN PRN Reason: Insomnia Metoprolol Succinate (Metoprolol Succinate Er 50 Mg Tab.Er.24h) 50 mg PO DAILY [facility]; Protocol Last Admin: 06/10/23 08:56 Dose: 50 mg Documented By: LOPEZ Pt Own (Fluticasone Salmeterol 113/14 Mcg 1) 1 puff INHALE RBID [facility] Last Admin: 06/10/23 16:22 Dose: Not Given Documented By: LOPEZ Non-Admin Reason: Patient Refused Pt Own (Interferon Beta-1a [Avonex] 30 Mcg/0.5 Ml Pen Injector Kit) 30 mcg IM TU [facility] Last Admin: 06/10/23 21:12 Dose: 30 mcg Documented By: JOE Omeprazole (Omeprazole 20 Mg Capsule.) 20 mg PO DAILY@0630 [facility] Last Admin: 06/11/23 05:56 Dose: 20 mg Documented By: FRANCESCO Ondansetron HCl (Ondansetron Hcl 4 Mg/2 Ml Vial) 4 mg IVPUSH Q8H PRN PRN Reason: Nausea and Vomiting Last Admin: 06/05/23 06:25 Dose: 4 mg Documented By: MELQUIADES Oxybutynin Chloride (Oxybutynin Chloride 5 Mg Tablet) 5 mg PO BID [facility] Last Admin: 06/10/23 20:56 Dose: 5 mg Documented By: JOE Paroxetine HCl (Paroxetine Hcl 40 Mg Tablet) 40 mg PO BEDTIME [facility] Last Admin: 06/10/23 20:55 Dose: 40 mg Documented By: JOE Pharmacy Consult (Consult Rx Perform Med Rec) 1 each MISCELLANE ONCE PRN PRN Reason: Consult order Polyethylene Glycol (Polyethylene Glycol 3350 17 Gm Powd.Pack) 17 gm PO DAILY PRN PRN Reason: Constipation Last Admin: 06/01/23 15:34 Dose: 17 gm Documented By: STUART Sodium Chloride (0.9 % Sodium Chloride Flush 3 Ml Syringe) 3 ml IVFLUSH QSHIFT [facility] Last Admin: 06/11/23 08:10 Dose: Not Given Documented By: RENU Non-Admin Reason: No Access Tamsulosin HCl (Tamsulosin Hcl 0.4 Mg Capsule) 0.4 mg PO BEDTIME [facility] Last Admin: 06/10/23 20:55 Dose: 0.4 mg Documented By: JOE Vitamin D (Cholecalciferol (Vitamin D3) 25 Mcg Tablet) 25 mcg PO DAILY [facility] Last Admin: 06/10/23 08:56 Dose: 25 mcg Documented By: LOPEZ Labs 06/10/23 06:05 06/10/23 06:05 Assessment and Plan (1) Acute kidney injury: Status: Acute (2) CHF exacerbation: Status: Acute (3) Acute UTI: Status: Acute Plan This is a 67-year-old female with pertinent history of multiple sclerosis, COPD not on home oxygen, paroxysmal atrial fibrillation on Eliquis, essential hypertension, coronary artery disease, hypothyroidism, congestive heart failure with preserved ejection fraction who presents to the emergency department for evaluation dyspnea and admitted for heart failure but now has gram positive cocci bacteremia Abdominal pain with nausea Unknown etiology Abdominal CT showing cystitis, UA pending, give dose of Rocephin and continue if UA positive Antiemetics Constipation Seen on abdominal CT Scheduled MiraLax, Colace Fleets enema Right middle lobe lung nodule Measuring 8 x 25 mm Will consult pulmonology, may need further imaging for diagnosis Thrombobytepenia Plat dropped from 220 to 60 and now 170 unclear cause plavix and eliquis restarted SUSAN on CKD. Resolved urinary retention Work up with US showed bilateral hydronephrosis s/p mahoney cath, removed today Hematuria s/p CBI urine is now clear. eliquis restarted Acute blood loss anemia due to left thigh hematoma and hematuria. Eliquis on hold initially transfused 1 unit of PRBC on 06/06. Restart Eliquis Acute respiratory distress. Resolved likely due to acute exacerbation of diastolic heart failure presently compensated Lasix was discontinued due to renal failure Non displaced fracture of ulna.? Ortho recommends no intervention swollen hand continue sling on left side for comfort Paroxysmal atrial fibrillation on Eliquis cardiology following. Started Amio loading 05/30/23 400 bid Hypothyroidism Synthroid Mood disorder.? Continue home mood stabilizers Coronary artery disease.? Continue Plavix, beta-allyson, and high-intensity statin History of MS Interferon beta injection, will bring from home DVT prophylaxis:? Eliquis on hold do to hematuria, hematoma and low platelets, add compression device Full code attending Dr. Love need for inpatient: SUSAN, heart failure, afib management, PT working with her on mobility, will definitely need rehab? at discharge Time Spent With Patient Time: Total time managing care of this patient today ____ minutes. Quality Stroke Does the patient have a stroke diagnosis?: No VTE Prior VTE?: No VTE Risk Level:: Medical - moderate - high VTE Device Contraindication: Treatment Not Indicated VTE Drug Contraindication: N/A - Med Ordered
[2023-06-11] MEDS: Clopidogrel Bisulfate 75 MG TABLET PO (08:37)
[2023-06-11] MEDS: Metoprolol Succinate ER 50 MG TAB.ER.24H PO (08:37)
[2023-06-11] MEDS: oxyBUTYnin chloride 5 MG TABLET PO ×2 (08:37→20:59)
[2023-06-11] MEDS: Cholecalciferol (Vitamin D3) 25 MCG TABLET PO (08:37)
[2023-06-11] MEDS: Cyanocobalamin (Vitamin B-12) 1,000 MCG TABLET 1000 MCG PO (08:37)
[2023-06-11] MEDS: Apixaban 5 MG TABLET PO ×2 (08:37→21:00)
[2023-06-11] MEDS: Atorvastatin Calcium 80 MG TABLET PO (08:37)
[2023-06-11] MEDS: Docusate Sodium 100 MG CAPSULE PO ×2 (08:37→21:00)
[2023-06-11] MEDS: ondansetron HCL 4 MG/2 ML VIAL IVPUSH (11:47)
--- NOTE | 2023-06-11 14:25 | MHC.CM.PN ---
Discharge on hold. Pt C/O Nausea+ ab pain. Provider has ordered an abdominal CT scan. Judith Chen was notified early am, that the DC is on hold. TIMOTHY Chen STR via BLS.
[2023-06-11 16:00] VITALS: BP 121/79; PULSE 88; RESP 16; TEMP 36.1; O2SAT 94
[2023-06-11] MEDS: Mineral OiL enema 133 ML ENEMA PR (16:47)
--- NOTE | 2023-06-11 17:00 | P.CDIM_ITS ---
PROVIDER RESPONSE TEXT: To clarify, the appropriate diagnosis supported by the clinical indicators: Bacteremia was present on admission and is still being monitored, evaluated, or treated QUERY TEXT: PHYSICIAN'S DOCUMENTATION REQUEST Date of Query: 06/06/2023 10:15 AM EDT Patient Name: Nai Garcia Admit Date: 05/29/2023 Dear Jl Vargas, A review of the medical record indicates additional documentation may be needed. Please review below and update the documentation accordingly. Clinical Indicators: Per Hospitalist Progress Note 06/06/23: Staph Aureus ) sepsis/ bacteremia, source unclear, echo no venegations, suspects pneumonia Started Vanco 05/29, DC'd vanco on 06/01 Started Kefzol 06/01, repeat cultures negative at 48 hour Final cultures now showing coag negative, staph epi and likely contamination doesn't need picc line and no further antibiotics Please clarify the following: Bacteremia was present on admission and is still being monitored, evaluated, or treated Sepsis and Pneumonia was present on admission and is still being monitored, evaluated, or treated Sepsis and Pneumonia was ruled out Sepsis and Pneumonia is still a likely, suspected, probable diagnosis Bacteremia was ruled out Other (explain)Clinically unable to determine (explain)Thank you, Lisa Monzon RN Use of terms such as suspected, likely, concern for, or probable (associated with a specific diagnosi s that is being evaluated, monitored, or treated as if it exists) are acceptable and can be coded in the inpatient se tting, when documented at the time of discharge. Please use your independent medical judgment in providing your response. THIS QUERY IS PART OF THE PERMANENT MEDICAL RECORD
[2023-06-11 17:07] LABS: Appearance Urine Turbid; Color Urine Yellow; Glucose Urine UA Negative (Negative); Leukocyte Esterase Urine Large (3+) (Negative); Nitrite Urine Negative (Negative); UMIC TRIGGER UACC YES; Urine Blood Large (3+) (Negative); Urine Ketones Negative (Negative); Urine Protein 300 (3+) mg/dL (Neg-Trace)
[2023-06-11] MEDS: cefTRIAXone sodium 1 GM in 0.9 % Sodium Chloride 50 ML IV (17:07)
[2023-06-11] MEDS: polyethylene glycoL 3350 17 GM POWD.PACK PO ×2 (17:08→21:02)
[2023-06-11] MEDS: 0.9 % Sodium Chloride Flush 3 ML SYRINGE IVFLUSH ×2 (17:09→21:02)
[2023-06-11 17:10] LABS: Bacteria Urine None Seen (None Seen); Hyaline Casts Urine 0-2 /LPF (0-2); RBC Urine >20 /HPF (0-2); Squamous Epithelial Cell Urine 0-2 /HPF (0-2); UACC Culture Trigger YES; WBC Urine >50 /HPF (0-5)
[2023-06-11] MEDS: Bacitracin Oint 14 GM TUBE 1 APPL TOPICAL ×2 (17:48→21:05)
--- NOTE | 2023-06-11 18:13 | PC.NURSE ---
Pt given mineral oil enema at 16:30. Pt unable to hold instilled medication for any significant amount of time. Patient had no results from enema.
[2023-06-11 19:25] VITALS: BP 106/60; PULSE 74; RESP 16; TEMP 36.6; O2SAT 97
[2023-06-11] MEDS: Melatonin 3 MG TABLET 6 MG PO (20:59)
[2023-06-11] MEDS: PARoxetine HCL 40 MG TABLET PO (20:59)
[2023-06-11] MEDS: Ferrous Sulfate 324 MG TABLET.DR PO (21:00)
[2023-06-11] MEDS: Tamsulosin HCL 0.4 MG CAPSULE PO (21:00)
--- NOTE | 2023-06-12 02:48 | PC.NURSE ---
PATIENT NOTED WITH A BLADDER SCAN OF 442ML EARLIER BUT DECLINED BLADDER PAIN OR PRESSURE, CONTINUED TO MONITOR AND THEN INCONTINENT OF URINE AND ALSO VOIDED 200ML TO BEDPAN. WILL CONTINUE TO MONITOR.
[2023-06-12 02:54] VITALS: BP 114/67; PULSE 64; RESP 18; TEMP 36.1; O2SAT 99
[2023-06-12] MEDS: Levothyroxine Sodium 50 MCG TABLET PO (06:12)
[2023-06-12] MEDS: Omeprazole 20 MG CAPSULE.DR PO (06:12)
[2023-06-12] MEDS: ondansetron HCL 4 MG/2 ML VIAL IVPUSH (06:18)
[2023-06-12 08:00] VITALS: BP 120/55; PULSE 81; RESP 18; TEMP 36.2; O2SAT 96
[2023-06-12] MEDS: Cholecalciferol (Vitamin D3) 25 MCG TABLET PO (08:49)
[2023-06-12] MEDS: Docusate Sodium 100 MG CAPSULE PO ×2 (08:49→20:39)
[2023-06-12] MEDS: Metoprolol Succinate ER 50 MG TAB.ER.24H PO (08:49)
[2023-06-12] MEDS: Apixaban 5 MG TABLET PO ×2 (08:49→20:39)
[2023-06-12] MEDS: polyethylene glycoL 3350 17 GM POWD.PACK PO ×2 (08:49→20:39)
[2023-06-12] MEDS: oxyBUTYnin chloride 5 MG TABLET PO ×2 (08:49→20:39)
[2023-06-12] MEDS: Atorvastatin Calcium 80 MG TABLET PO (08:49)
[2023-06-12] MEDS: Cyanocobalamin (Vitamin B-12) 1,000 MCG TABLET 1000 MCG PO (08:49)
[2023-06-12] MEDS: Clopidogrel Bisulfate 75 MG TABLET PO (08:50)
[2023-06-12] MEDS: 0.9 % Sodium Chloride Flush 3 ML SYRINGE IVFLUSH ×3 (08:50→23:53)
[2023-06-12] MEDS: Bacitracin Oint 14 GM TUBE 1 APPL TOPICAL ×2 (08:51→20:43)
--- NOTE | 2023-06-12 09:20 | PM.CNPUL ---
History of Present Illness History of Present Illness Consult date: 06/12/23 Requesting physician: Zina Lamb Reason for consult: COPD and lung mass Chief complaint: elbow fracture Narrative: PULMONARY CONSULTATION, This 67 years old female has been in the hospital for the last almost 2 week, for increased shortness of breath, paroxysmal atrial fibrillation, history of fall and hurting the left elbow, urinary tract infection and increased generalized weakness. She is a known case of multiple sclerosis, with generalized muscular weakness and discoordination. Has past history of says heavy smoking, which she quit a f.ew years ago . she has been treated for chronic obstructive pulmonary disease with minimal medications. She does have significant respiratory insufficiency, with shortness of breath on minimal exertion. however since she quit smoking her respiratory status has remained fairly stable. Had a CT scan of the chest in December 2022 which had shown a masslike density in the right middle lobe area 3 x 1.5 cm in size, and this was supposed to be followed up by Pet-CT scan as outpatient. She has been admitted here in the hospital since 05/29/23 because of increased shortness of breath and generalized weakness and was found to have paroxysmal atrial fiibrillation. The patient states that each time she has a paroxysm of atrial fibrillation her blood pressure falls down and she becomes more short of breath, and this have been happening off and on. There was no evidence of respiratory infection or acute exacerbation of COPD, and basically her respiratory status has remained under control. She likes to use her home inhaler, for maintenance which is AirDuo, and then uses albuterol only p.r.n.. She is having symptoms of the urinary tract infection and CT scan shows evidence of cystitis. It seems that she continues to have recurrent symptoms of urinary tract infection. urine being recultured, and currently she is started on IV Rocephin. The CT scan of the abdomen and pelvis shows the density in the right middle lobe, 0.8 x 2.5 cm in size. this has not grown in size since December 2022, rather there is slight decrease in the size. No other mass or densities are noted. Review of Systems Review of Systems: Yes all other systems are reviewed and are negative Constitutional: Constitutional: Reports frequent falls, Reports lethargy and Reports weakness Eyes: Eyes: Reports no additional eye complaints ENT: Reports system reviewed and no additional complaints, except as documented Cardiovascular: Cardiovascular: Reports irregular heart rhythm ( paroxysmal atrial fibrillation) Respiratory: Respiratory: Reports as per HPI Gastrointestinal: Gastrointestinal: Reports no additional gastrointestinal complaints Genitourinary: Genitourinary: Reports hematuria and Reports nocturia Musculoskeletal: Musculoskeletal: Reports abnormal gait, Reports muscle weakness and Reports other ( instability of the gait) Integumentary/Breasts: Skin/Breast: Reports system reviewed and no additional complaints, except as docu Neurologic: Reports abnormal gait, Reports frequent falls and Reports weakness Psychiatric: Psychiatric: Reports no additional psychiatric complaints [facility] Past Medical History Medical History Acute on chronic systolic (congestive) heart failure Asymmetric blood pressures Atherosclerotic cardiovascular disease Atrial fibrillation with rapid ventricular response Bacteremia CAD (coronary artery disease) Cardiomyopathy CHF (congestive heart failure) COPD (chronic obstructive pulmonary disease) Dyspnea on effort Essential hypertension Left renal artery stenosis Multiple sclerosis PAF (paroxysmal atrial fibrillation) Peripheral arterial occlusive disease Personal history of nicotine dependence Pulmonary nodules Staphylococcus epidermidis bacteremia Family History Family History Father No problems noted. Mother No problems noted. Brother Diabetes Surgical History Surgical History History of cholecystectomy (~02/2009) History of colonoscopy History of endoscopy History of heart artery stent (~2018) S/P cardiac cath (~12/2020) S/P insertion of iliac artery stent (~02/2019) Status post angioplasty with stent (~09/2018) Social History Social History Household Members: None Housing: House Are you a primary child care center administrator to a significant other at home: No Do you presently have visiting nurse or other home services: No Alcohol intake: never Patient Tobacco Use Status: Former Tobacco user Quit Date: 2017 Tobacco use type: Cigarette e-Cigarette/Vaping Use: Never Used Second Hand Smoke Exposure: No Advance Directives Date on File: 12/27/20 service: No Current occupational status: retired Cognitive needs: Yes (cane) Hearing needs: No Vision needs: Yes (reading glasses) Meds Allergies Allergy/AdvReac Type Severity Reaction Status Date / Time codeine [Codeine] AdvReac Mild vomiting Verified 05/27/23 21:02 Active Medications: Current Medications Acetaminophen (Acetaminophen 325 Mg Tablet) 650 mg PO Q6H PRN PRN Reason: Pain, Mild (Pain Scale 1-3) Last Admin: 06/10/23 20:56 Dose: 650 mg Albuterol Sulfate (Albuterol Sulfate 90 Mcg 8 Gm Inhaler) 2 puff INHALE Q4H PRN PRN Reason: shortness of breath or wheezing Apixaban (Apixaban 5 Mg Tablet) 5 mg PO BID [facility] Last Admin: 06/12/23 08:49 Dose: 5 mg Atorvastatin Calcium (Atorvastatin Calcium 80 Mg Tablet) 80 mg PO DAILY [facility] Last Admin: 06/12/23 08:49 Dose: 80 mg Bacitracin (Bacitracin Oint 14 Gm Tube) 1 appl TOPICAL BID [facility]; Protocol Last Admin: 06/12/23 08:51 Dose: 1 appl Clopidogrel Bisulfate (Clopidogrel Bisulfate 75 Mg Tablet) 75 mg PO DAILY [facility] Last Admin: 06/12/23 08:50 Dose: 75 mg Cyanocobalamin (Cyanocobalamin (Vitamin B-12) 1,000 Mcg Tablet) 1,000 mcg PO DAILY [facility] Last Admin: 06/12/23 08:49 Dose: 1,000 mcg Docusate Sodium (Docusate Sodium 100 Mg Capsule) 100 mg PO BID [facility] Last Admin: 06/12/23 08:49 Dose: 100 mg Ferrous Sulfate (Ferrous Sulfate 324 Mg Tablet.Dr) 324 mg PO BEDTIME [facility] Last Admin: 06/11/23 21:00 Dose: 324 mg Ceftriaxone Sodium 1 gm/ (Sodium Chloride) 50 mls @ 100 mls/hr IV Q24H [facility] Last Infusion: 06/11/23 17:42 Dose: Infused Levothyroxine Sodium (Levothyroxine Sodium 50 Mcg Tablet) 50 mcg PO DAILY@0600 [facility] Last Admin: 06/12/23 06:12 Dose: 50 mcg Magnesium Hydroxide (Milk Of Magnesia 30 Ml Oral.Susp) 30 ml PO DAILY PRN PRN Reason: Constipation Last Admin: 06/01/23 15:34 Dose: 30 ml Melatonin (Melatonin 3 Mg Tablet) 6 mg PO BEDTIME PRN PRN Reason: Insomnia Last Admin: 06/11/23 20:59 Dose: 6 mg Metoprolol Succinate (Metoprolol Succinate Er 50 Mg Tab.Er.24h) 50 mg PO DAILY [facility]; Protocol Last Admin: 06/12/23 08:49 Dose: 50 mg Pt Own (Fluticasone Salmeterol 113/14 Mcg 1) 1 puff INHALE RBID [facility] Last Admin: 06/12/23 08:58 Dose: 1 puff Pt Own (Interferon Beta-1a [Avonex] 30 Mcg/0.5 Ml Pen Injector Kit) 30 mcg IM [facility] Last Admin: 06/10/23 21:12 Dose: 30 mcg Omeprazole (Omeprazole 20 Mg Capsule.Dr) 20 mg PO DAILY@0630 [facility] Last Admin: 06/12/23 06:12 Dose: 20 mg Ondansetron HCl (Ondansetron Hcl 4 Mg/2 Ml Vial) 4 mg IVPUSH Q8H PRN PRN Reason: Nausea and Vomiting Last Admin: 06/12/23 06:18 Dose: 4 mg Oxybutynin Chloride (Oxybutynin Chloride 5 Mg Tablet) 5 mg PO BID [facility] Last Admin: 06/12/23 08:49 Dose: 5 mg Paroxetine HCl (Paroxetine Hcl 40 Mg Tablet) 40 mg PO BEDTIME [facility] Last Admin: 06/11/23 20:59 Dose: 40 mg Pharmacy Consult (Consult Rx Perform Med Rec) 1 each MISCELLANE ONCE PRN PRN Reason: Consult order Polyethylene Glycol (Polyethylene Glycol 3350 17 Gm Powd.Pack) 17 gm PO DAILY PRN PRN Reason: Constipation Last Admin: 06/01/23 15:34 Dose: 17 gm Polyethylene Glycol (Polyethylene Glycol 3350 17 Gm Powd.Pack) 17 gm PO BID [facility] Last Admin: 06/12/23 08:49 Dose: 17 gm Sodium Chloride (0.9 % Sodium Chloride Flush 3 Ml Syringe) 3 ml IVFLUSH QSHIFT [facility] Last Admin: 06/12/23 08:50 Dose: 3 ml Tamsulosin HCl (Tamsulosin Hcl 0.4 Mg Capsule) 0.4 mg PO BEDTIME [facility] Last Admin: 06/11/23 21:00 Dose: 0.4 mg Vitamin D (Cholecalciferol (Vitamin D3) 25 Mcg Tablet) 25 mcg PO DAILY [facility] Last Admin: 06/12/23 08:49 Dose: 25 mcg Home Medications Medication Instructions Recorded Confirmed Last Taken Type interferon beta-1a 30 mcg/0.5 mL 30 mcg IM TU 10/03/20 05/28/23 09/13/21 History intramuscular pen kit (Avonex) paroxetine HCl 40 mg tablet 40 mg PO BEDTIME 10/03/20 05/28/23 09/12/21 History cholecalciferol (vitamin D3) 25 25 mcg PO DAILY 12/20/20 05/28/23 09/13/21 History mcg (1,000 unit) tablet (Vitamin D3) cyanocobalamin (vitamin B-12) 1,000 mcg PO DAILY 12/20/20 05/28/23 09/13/21 History 1,000 mcg tablet (Vitamin B-12) melatonin 10 mg tablet 10 mg PO BEDTIME PRN Insomnia 01/13/23 05/28/23 Unknown History ferrous sulfate 325 mg (65 mg 325 mg PO BEDTIME 05/28/23 05/28/23 Unknown History iron) tablet Physical Exam Vital Signs: Vital Signs: Last Vital Signs Temp 97.2 F 06/12/23 08:00 Pulse 81 06/12/23 08:00 Resp 18 06/12/23 08:00 BP 120/55 L 06/12/23 08:00 Pulse Ox 96 06/12/23 08:00 O2 Del Method Room Air 06/12/23 08:00 O2 Flow Rate 4 05/28/23 19:56 BMI result Body Mass Index 24.7 Const: Other: Chronically sick-looking, walks slowly with cane. General: comfortable, no acute distress, alert and awake Orientation/consciousness: patient oriented x3 HEENT: Head: Yes normal to inspection General nose exam: No nasal polyps present and No nasal discharge present Face and sinus: Yes sinuses nontender Mouth: oropharynx normal Throat: Yes posterior oropharynx normal Eyes: General: appearance normal, both eyes and all related structures Neck: Neck: Yes normal visual inspection, Yes no lymphadenopathy, Yes trachea midline and Yes no JVD Thyroid: Thyroid normal Chest: Chest palpation & inspection: normal inspection of the chest, normal palpation of entire chest wall and no tenderness Resp: Effort & Inspection: prolonged expiratory phase Auscultation: clear to auscultation bilaterally, no crackles, no wheezes and diminished lung sounds (somewhat distant ,) Cardio: Palpation: normal PMI Rate: regular rate Rhythm: regular rhythm Heart sounds: S2 normal heart sound present (split ), no gallops and Murmur heart sound present (faint systolic murmur at LSB.) GI: Palpation (GI): Soft to palpation, nontender, No hepatosplenomegaly present and no masses Auscultation: normal bowel sounds Back/Spine/Pelvis: Thoracic/Lumbar Spine: thoracic and lumbar spine normal to inspection Skin: General skin exam: no rashes or lesions noted Neuro: General: patient oriented x3, No gait normal (gait is spastic , and slow ) and no focal motor deficits Cranial nerves: Yes CN's II-XII intact bilaterally Extrem: General: Yes normal to inspection, Yes no clubbing, cyanosis or edema, Yes no calf tenderness and No venous stasis dermatitis Psych: Appearance: grossly normal Mental Status: mental status grossly normal Speech and movement: Normal speech and movement present Results Laboratory Findings 06/10/23 06:05 06/10/23 06:05 Abnormal lab findings: Abnormal Labs 05/27/23 05/27/23 05/27/23 22:33 22:33 22:33 WBC RBC Hgb 11.3 L Hct 35.3 L MCH 26.1 L Plt Count Immature Gran % (Auto) Neut % (Auto) 78.6 H Lymph % (Auto) 15.4 L Lymph # (Auto) 1.1 L Abs Immat Gran (auto) VBG HCO3 Chloride Carbon Dioxide Anion Gap BUN 21 H Creatinine Lactic Acid 2.2 H* Lactic Acid F/U @ 2Hr Lactic Acid F/U @ 4Hr B-Natriuretic Peptide Albumin 3.4 L Urine Protein Urine Blood Ur Leukocyte Esterase Urine RBC Urine WBC Random Vancomycin Crossmatch 05/27/23 05/27/23 05/28/23 22:33 22:34 01:00 WBC RBC Hgb Hct MCH Plt Count Immature Gran % (Auto) Neut % (Auto) Lymph % (Auto) Lymph # (Auto) Abs Immat Gran (auto) VBG HCO3 30 H Chloride Carbon Dioxide Anion Gap BUN Creatinine Lactic Acid Lactic Acid F/U @ 2Hr 3.4 H* Lactic Acid F/U @ 4Hr B-Natriuretic Peptide 1462 H Albumin Urine Protein Urine Blood Ur Leukocyte Esterase Urine RBC Urine WBC Random Vancomycin Crossmatch 05/28/23 05/28/23 05/28/23 04:18 05:20 05:20 WBC RBC 4.14 L Hgb 10.7 L Hct 33.9 L MCH 25.8 L Plt Count Immature Gran % (Auto) 0.5 H Neut % (Auto) 84.2 H Lymph % (Auto) 9.0 L Lymph # (Auto) 0.8 L Abs Immat Gran (auto) 0.04 H VBG HCO3 Chloride Carbon Dioxide 21 L Anion Gap BUN 23 H Creatinine Lactic Acid Lactic Acid F/U @ 2Hr Lactic Acid F/U @ 4Hr 3.5 H* B-Natriuretic Peptide Albumin Urine Protein Urine Blood Ur Leukocyte Esterase Urine RBC Urine WBC Random Vancomycin Crossmatch 05/29/23 05/30/23 05/31/23 10:47 06:00 05:12 WBC RBC Hgb Hct MCH Plt Count Immature Gran % (Auto) Neut % (Auto) Lymph % (Auto) Lymph # (Auto) Abs Immat Gran (auto) VBG HCO3 Chloride Carbon Dioxide Anion Gap BUN Creatinine 2.26 H 2.27 H 2.54 H Lactic Acid Lactic Acid F/U @ 2Hr Lactic Acid F/U @ 4Hr B-Natriuretic Peptide Albumin Urine Protein Urine Blood Ur Leukocyte Esterase Urine RBC Urine WBC Random Vancomycin Crossmatch 05/31/23 06/01/23 06/02/23 08:47 05:24 05:48 WBC RBC Hgb Hct MCH Plt Count Immature Gran % (Auto) Neut % (Auto) Lymph % (Auto) Lymph # (Auto) Abs Immat Gran (auto) VBG HCO3 Chloride Carbon Dioxide 12 L Anion Gap 24 H BUN 48 H Creatinine 3.08 H 3.14 H Lactic Acid Lactic Acid F/U @ 2Hr Lactic Acid F/U @ 4Hr B-Natriuretic Peptide Albumin Urine Protein Urine Blood Ur Leukocyte Esterase Urine RBC Urine WBC Random Vancomycin 14.2 L Crossmatch 06/02/23 06/03/23 06/04/23 09:05 05:46 08:45 WBC RBC Hgb Hct MCH Plt Count Immature Gran % (Auto) Neut % (Auto) Lymph % (Auto) Lymph # (Auto) Abs Immat Gran (auto) VBG HCO3 Chloride Carbon Dioxide Anion Gap BUN 47 H 38 H Creatinine 2.55 H 1.96 H Lactic Acid Lactic Acid F/U @ 2Hr Lactic Acid F/U @ 4Hr B-Natriuretic Peptide Albumin Urine Protein Urine Blood Ur Leukocyte Esterase Urine RBC Urine WBC Random Vancomycin 13.2 L Crossmatch 06/04/23 06/04/23 06/05/23 08:45 08:45 06:12 WBC RBC 3.49 L Hgb 8.9 L Hct 28.2 L MCH 25.5 L Plt Count 60 L D Immature Gran % (Auto) Neut % (Auto) Lymph % (Auto) Lymph # (Auto) Abs Immat Gran (auto) VBG HCO3 Chloride Carbon Dioxide Anion Gap BUN 31 H Creatinine 1.68 H Lactic Acid Lactic Acid F/U @ 2Hr Lactic Acid F/U @ 4Hr B-Natriuretic Peptide Albumin Urine Protein Urine Blood Ur Leukocyte Esterase Urine RBC Urine WBC Random Vancomycin Crossmatch See Detail 06/05/23 06/06/23 06/06/23 07:49 05:51 09:08 WBC 4.5 L RBC 3.14 L 3.03 L Hgb 8.2 L 7.8 L Hct 25.4 L 24.4 L MCH 26.1 L 25.7 L Plt Count 84 L D 143 L D Immature Gran % (Auto) Neut % (Auto) Lymph % (Auto) Lymph # (Auto) Abs Immat Gran (auto) VBG HCO3 Chloride 109 H Carbon Dioxide Anion Gap BUN 24 H Creatinine Lactic Acid Lactic Acid F/U @ 2Hr Lactic Acid F/U @ 4Hr B-Natriuretic Peptide Albumin Urine Protein Urine Blood Ur Leukocyte Esterase Urine RBC Urine WBC Random Vancomycin Crossmatch 06/07/23 06/07/23 06/08/23 07:06 07:06 07:27 WBC RBC 3.43 L Hgb 9.2 L Hct 28.2 L MCH 26.8 L Plt Count Immature Gran % (Auto) Neut % (Auto) Lymph % (Auto) Lymph # (Auto) Abs Immat Gran (auto) VBG HCO3 Chloride 109 H Carbon Dioxide Anion Gap 11 L 11 L BUN 19 H Creatinine Lactic Acid Lactic Acid F/U @ 2Hr Lactic Acid F/U @ 4Hr B-Natriuretic Peptide Albumin Urine Protein Urine Blood Ur Leukocyte Esterase Urine RBC Urine WBC Random Vancomycin Crossmatch 06/09/23 06/10/23 06/10/23 06:18 06:05 06:05 WBC RBC 3.42 L 3.46 L Hgb 9.1 L 9.1 L Hct 28.5 L 28.8 L MCH 26.6 L 26.3 L Plt Count Immature Gran % (Auto) Neut % (Auto) Lymph % (Auto) Lymph # (Auto) Abs Immat Gran (auto) VBG HCO3 Chloride 110 H Carbon Dioxide Anion Gap 11 L BUN Creatinine Lactic Acid Lactic Acid F/U @ 2Hr Lactic Acid F/U @ 4Hr B-Natriuretic Peptide Albumin Urine Protein Urine Blood Ur Leukocyte Esterase Urine RBC Urine WBC Random Vancomycin Crossmatch 06/11/23 16:30 WBC RBC Hgb Hct MCH Plt Count Immature Gran % (Auto) Neut % (Auto) Lymph % (Auto) Lymph # (Auto) Abs Immat Gran (auto) VBG HCO3 Chloride Carbon Dioxide Anion Gap BUN Creatinine Lactic Acid Lactic Acid F/U @ 2Hr Lactic Acid F/U @ 4Hr B-Natriuretic Peptide Albumin Urine Protein 300 (3+) H Urine Blood Large (3+) H Ur Leukocyte Esterase Large (3+) H Urine RBC >20 H Urine WBC >50 H Random Vancomycin Crossmatch Microbiology: Microbiology 05/29/23 19:13 Blood - Venous Blood Culture - Final No growth after 5 days. 05/29/23 19:13 Blood - Venous Blood Culture - Final No growth after 5 days. 05/28/23 00:06 Blood - Venous Blood Culture - Final Staphylococcus epidermidis Coag negative Staphylococcus 05/27/23 22:33 Blood - Venous Blood Culture - Final Staphylococcus epidermidis Diagnostic Findings Chest x-ray: report reviewed CT scan - chest: pending ( CT scan of the abdomen and pelvis, is reviewed.), report reviewed and image reviewed Assessment and Plan (1) Personal history of nicotine dependence: Status: Acute (2) COPD (chronic obstructive pulmonary disease): Status: Acute (3) Pulmonary nodules: Status: Acute (4) Dyspnea on effort: Status: Acute Plan This 67 years old female is known case of chronic obstructive pulmonary disease secondary to her previous smoking, which she quit in 2017. She is being followed in the Annual lung screening program. CT scan of the chest in December 2022 did show a masslike density in the right middle lobe the measuring [address] scan of the abdomen on 06/02/23 does cover the lower part of the lungs, and re-demonstrates the mass like density, but the size is 0.8 x 2.5 cm, which is slightly decreased from before. I do not think that we have to do a CT scan of the chest at this time. We should plan to do PET CT scan as outpatient. For management, of COPD continue treatment with AirDuo 113-14 1 inhalation b.i.d., and because of paroxysmal atrial fibrillation, her rescue inhaler can be changed to levalbuterol HFA 2 puffs Q 4-6 hours p.r.n. Thank you for asking me to see this patient Time Spent With Patient Time: Total time managing care of this patient today ____ minutes. Procedures Date of Service Date of Service: 06/12/23
[2023-06-12 09:39] VITALS: BP 120/55; PULSE 81; O2SAT 96
[2023-06-12] MEDS: Lactulose 20 GM/30 ML SOLUTION PO (10:23)
--- NOTE | 2023-06-12 13:17 | P.PNIM_ITS ---
Subjective Subjective Date of Service: 06/12/23 Interval History: seen and examined this morning follow up for left elbow fx, CHF, hematuria, hydronephrosis no specific complaints, no BM for several days Review of Systems Review of Systems: Yes all other systems are reviewed and are negative Constitutional Constitutional: Denies chills and Denies fever(s) Cardiovascular Cardiovascular: Denies chest pain and Denies dyspnea Respiratory Respiratory: Denies dyspnea Gastrointestinal Gastrointestinal: Denies abdominal pain Physical Exam Vital Signs: Vital Signs: Last Vital Signs Temp 97.2 F 06/12/23 08:00 Pulse 81 06/12/23 09:39 Resp 18 06/12/23 08:00 BP 120/55 L 06/12/23 09:39 Pulse Ox 96 06/12/23 09:39 O2 Del Method Room Air 06/12/23 08:00 O2 Flow Rate 4 05/28/23 19:56 BMI result Body Mass Index 24.7 Const: General: cooperative, comfortable, no acute distress, alert and awake Nutritional Appearance: average body habitus Orientation/consciousness: patient oriented x3 Resp: Effort & Inspection: normal respiratory effort, able to speak in complete sentences, no respiratory distress and no use of accessory muscles Cardio: Rate: regular rate Heart sounds: S1 normal heart sound present and S2 normal heart sound present GI: Inspection: No distended Palpation (GI): Soft to palpation and nontender Skin: Other: scab left elbow Neuro: General: patient oriented x3, moves all extremities and CN's II-XI intact bilaterally Extrem: General: Yes no pedal edema Objective Data Active Medications Acetaminophen (Acetaminophen 325 Mg Tablet) 650 mg PO Q6H PRN PRN Reason: Pain, Mild (Pain Scale 1-3) Last Admin: 06/10/23 20:56 Dose: 650 mg Documented By: TUMSANGEETA Albuterol Sulfate (Albuterol Sulfate 90 Mcg 8 Gm Inhaler) 2 puff INHALE Q4H PRN PRN Reason: shortness of breath or wheezing Apixaban (Apixaban 5 Mg Tablet) 5 mg PO BID [facility] Last Admin: 06/12/23 08:49 Dose: 5 mg Documented By: COTSOLITARIO Atorvastatin Calcium (Atorvastatin Calcium 80 Mg Tablet) 80 mg PO DAILY [facility] Last Admin: 06/12/23 08:49 Dose: 80 mg Documented By: COTEMA Bacitracin (Bacitracin Oint 14 Gm Tube) 1 appl TOPICAL BID [facility]; Protocol Last Admin: 06/12/23 08:51 Dose: 1 appl Documented By: ARON Clopidogrel Bisulfate (Clopidogrel Bisulfate 75 Mg Tablet) 75 mg PO DAILY [facility] Last Admin: 06/12/23 08:50 Dose: 75 mg Documented By: ARON Cyanocobalamin (Cyanocobalamin (Vitamin B-12) 1,000 Mcg Tablet) 1,000 mcg PO DAILY [facility] Last Admin: 06/12/23 08:49 Dose: 1,000 mcg Documented By: ARON Docusate Sodium (Docusate Sodium 100 Mg Capsule) 100 mg PO BID [facility] Last Admin: 06/12/23 08:49 Dose: 100 mg Documented By: ARON Ferrous Sulfate (Ferrous Sulfate 324 Mg Tablet.Dr) 324 mg PO BEDTIME [facility] Last Admin: 06/11/23 21:00 Dose: 324 mg Documented By: JOSE LUIS Ceftriaxone Sodium 1 gm/ (Sodium Chloride) 50 mls @ 100 mls/hr IV Q24H [facility] Last Infusion: 06/11/23 17:42 Dose: 0 mls/hr Documented By: GRAZESSIE Levothyroxine Sodium (Levothyroxine Sodium 50 Mcg Tablet) 50 mcg PO DAILY@0600 [facility] Last Admin: 06/12/23 06:12 Dose: 50 mcg Documented By: ARIAN Magnesium Hydroxide (Milk Of Magnesia 30 Ml Oral.Susp) 30 ml PO DAILY PRN PRN Reason: Constipation Last Admin: 06/01/23 15:34 Dose: 30 ml Documented By: STUART Melatonin (Melatonin 3 Mg Tablet) 6 mg PO BEDTIME PRN PRN Reason: Insomnia Last Admin: 06/11/23 20:59 Dose: 6 mg Documented By: JOSE LUIS Metoprolol Succinate (Metoprolol Succinate Er 50 Mg Tab.Er.24h) 50 mg PO DAILY [facility]; Protocol Last Admin: 06/12/23 08:49 Dose: 50 mg Documented By: ARON Pt Own (Fluticasone Salmeterol 113/14 Mcg 1) 1 puff INHALE RBID [facility] Last Admin: 06/12/23 08:58 Dose: 1 puff Documented By: ARON Pt Own (Interferon Beta-1a [Avonex] 30 Mcg/0.5 Ml Pen Injector Kit) 30 mcg IM TU [facility] Last Admin: 06/10/23 21:12 Dose: 30 mcg Documented By: JOE Nystatin (Nystatin Powder 15 Gm Bottle) 1 appl TOPICAL BID [facility]; Protocol Omeprazole (Omeprazole 20 Mg Capsule.) 20 mg PO DAILY@0630 [facility] Last Admin: 06/12/23 06:12 Dose: 20 mg Documented By: ARIAN Ondansetron HCl (Ondansetron Hcl 4 Mg/2 Ml Vial) 4 mg IVPUSH Q8H PRN PRN Reason: Nausea and Vomiting Last Admin: 06/12/23 06:18 Dose: 4 mg Documented By: ARIAN Oxybutynin Chloride (Oxybutynin Chloride 5 Mg Tablet) 5 mg PO BID [facility] Last Admin: 06/12/23 08:49 Dose: 5 mg Documented By: ARON Paroxetine HCl (Paroxetine Hcl 40 Mg Tablet) 40 mg PO BEDTIME [facility] Last Admin: 06/11/23 20:59 Dose: 40 mg Documented By: JOSE LUIS Pharmacy Consult (Consult Rx Perform Med Rec) 1 each MISCELLANE ONCE PRN PRN Reason: Consult order Polyethylene Glycol (Polyethylene Glycol 3350 17 Gm Powd.Pack) 17 gm PO DAILY PRN PRN Reason: Constipation Last Admin: 06/01/23 15:34 Dose: 17 gm Documented By: STUART Polyethylene Glycol (Polyethylene Glycol 3350 17 Gm Powd.Pack) 17 gm PO BID [facility] Last Admin: 06/12/23 08:49 Dose: 17 gm Documented By: BOEMA Sodium Chloride (0.9 % Sodium Chloride Flush 3 Ml Syringe) 3 ml IVFLUSH QSHIFT [facility] Last Admin: 06/12/23 08:50 Dose: 3 ml Documented By: ARON Tamsulosin HCl (Tamsulosin Hcl 0.4 Mg Capsule) 0.4 mg PO BEDTIME [facility] Last Admin: 06/11/23 21:00 Dose: 0.4 mg Documented By: JOSE LUIS Vitamin D (Cholecalciferol (Vitamin D3) 25 Mcg Tablet) 25 mcg PO DAILY [facility] Last Admin: 06/12/23 08:49 Dose: 25 mcg Documented By: ARON Labs 06/10/23 06:05 06/10/23 06:05 Labs: Laboratory Results - last 24 hr 06/11/23 16:30 Urine Color Yellow Urine Appearance Turbid Urine pH 6.0 Ur Specific Cecil 1.010 Urine Protein 300 (3+) H Urine Glucose (UA) Negative Urine Ketones Negative Urine Blood Large (3+) H Urine Nitrite Negative Ur Leukocyte Esterase Large (3+) H Urine RBC >20 H Urine WBC >50 H Ur Squamous Epith Cells 0-2 Urine Bacteria None Seen Hyaline Casts 0-2 Microbiology Microbiology Results: Microbiology 06/11/23 16:30 Urine Culture - Final Urine Catheterized - Mahoney Catheter Assessment and Plan (1) Ulna fracture: Status: Acute Plan This is a 67-year-old female with pertinent history of multiple sclerosis, COPD not on home oxygen, paroxysmal atrial fibrillation on Eliquis, essential hypertension, coronary artery disease, hypothyroidism, congestive heart failure with preserved ejection fraction who presents to the emergency department for evaluation dyspnea and admitted for heart failure but now has gram positive cocci bacteremia Abdominal pain Abdominal CT showing cystitis, UA without bacteremia. urine culture negative Constipation Seen on abdominal CT Scheduled MiraLax, Colace unable to tolerate enema will give dose of lactulose monitor for effect Right middle lobe lung nodule Measuring 8 x 25 mm seen by pulm - outpatient PET recommended Thrombocytepenia resolved plavix and eliquis restarted SUSAN on CKD. Resolved urinary retention Work up with US showed bilateral hydronephrosis s/p mahoney cath, since removed. Hematuria s/p CBI urine is now clear. eliquis restarted urinary retention ? r/t constipation mahoney was removed, but requiring prn straight cath continue flomax may need mahoney replaced with plan for outpatient voiding trial Acute blood loss anemia due to left thigh hematoma and hematuria. Eliquis on hold initially transfused 1 unit of PRBC on 06/06. Restarted Eliquis Acute respiratory distress. Resolved likely due to acute exacerbation of diastolic heart failure presently compensated Lasix was discontinued due to renal failure Non displaced fracture of ulna.? Ortho recommends no intervention continue sling on left side for comfort Paroxysmal atrial fibrillation on Eliquis seen by cardiology initially started on Amio loading dose 05/30/23 400 bid but ultimately was stopped 06/06 Hypothyroidism Synthroid Mood disorder.? Continue home mood stabilizers Coronary artery disease.? Continue Plavix, beta-allyson, and high-intensity statin History of MS Interferon beta injection, will bring from home DVT prophylaxis:? Meg Full code attending Dr. Love dispo - plan for STR need for inpatient: SUSAN, heart failure, afib management, PT working with her on mobility Time Spent With Patient Time: Total time managing care of this patient today ____ minutes. Quality Stroke Does the patient have a stroke diagnosis?: No VTE Prior VTE?: No VTE Risk Level:: Medical - moderate - high VTE Device Contraindication: Treatment Not Indicated VTE Drug Contraindication: N/A - Med Ordered
[2023-06-12] MEDS: bisacodyL 10 MG SUPP.RECT PR (15:03)
[2023-06-12 15:16] VITALS: BP 113/74; PULSE 70; RESP 20; TEMP 36; O2SAT 98
--- NOTE | 2023-06-12 15:51 | MHC.CM.PN ---
Patient has declined the bed offered by [facility]. She has accepted a bed offer from [facility]. Patient is anticipated to discharge tomorrow via BLS.
[2023-06-12 19:42] VITALS: BP 118/56; PULSE 64; RESP 18; TEMP 36.2; O2SAT 100
[2023-06-12] MEDS: Ferrous Sulfate 324 MG TABLET.DR PO (20:39)
[2023-06-12] MEDS: PARoxetine HCL 40 MG TABLET PO (20:39)
[2023-06-12] MEDS: Tamsulosin HCL 0.4 MG CAPSULE PO (20:39)
[2023-06-12] MEDS: Nystatin Powder 15 GM BOTTLE 1 APPL TOPICAL (20:42)
[2023-06-12] MEDS: Melatonin 3 MG TABLET 6 MG PO (21:26)
[2023-06-13 03:22] VITALS: BP 106/61; PULSE 66; RESP 18; TEMP 36.3; O2SAT 97
[2023-06-13] MEDS: ondansetron HCL 4 MG/2 ML VIAL IVPUSH (06:15)
[2023-06-13] MEDS: Levothyroxine Sodium 50 MCG TABLET PO (06:15)
[2023-06-13] MEDS: Omeprazole 20 MG CAPSULE.DR PO (06:15)
[2023-06-13 07:26] VITALS: BP 134/77; PULSE 71; RESP 16; TEMP 36; O2SAT 97
[2023-06-13] MEDS: polyethylene glycoL 3350 17 GM POWD.PACK PO (08:40)
[2023-06-13] MEDS: Atorvastatin Calcium 80 MG TABLET PO (08:41)
[2023-06-13] MEDS: 0.9 % Sodium Chloride Flush 3 ML SYRINGE IVFLUSH (08:41)
[2023-06-13] MEDS: Metoprolol Succinate ER 50 MG TAB.ER.24H PO (08:41)
[2023-06-13] MEDS: Nystatin Powder 15 GM BOTTLE 1 APPL TOPICAL (08:41)
[2023-06-13] MEDS: Cyanocobalamin (Vitamin B-12) 1,000 MCG TABLET 1000 MCG PO (08:41)
[2023-06-13] MEDS: Docusate Sodium 100 MG CAPSULE PO (08:42)
[2023-06-13] MEDS: oxyBUTYnin chloride 5 MG TABLET PO (08:42)
[2023-06-13] MEDS: Amiodarone HCL 200 MG TABLET PO (08:42)
[2023-06-13] MEDS: Clopidogrel Bisulfate 75 MG TABLET PO (08:42)
[2023-06-13] MEDS: Apixaban 5 MG TABLET PO (08:42)
[2023-06-13] MEDS: Cholecalciferol (Vitamin D3) 25 MCG TABLET PO (08:42)
[2023-06-13] MEDS: Bacitracin Oint 14 GM TUBE 1 APPL TOPICAL (08:43)
--- NOTE | 2023-06-13 08:58 | MHC.CM.PN ---
IMM 06/11/23 Patient is discharged to [facility] today. She received a bed offer from [facility]. She has accepted the bed. She will transport via S today.
--- NOTE | 2023-06-13 11:48 | P.DS_ITS ---
DS: Providers Provider Date of Service: 06/13/23 Date of admission: 05/29/23 16:22 Date of discharge: 06/13/23 Primary care physician: Amina Whitfield MD Consults: 05/28/23 04:52 Consult to Cardiology Routine Consulting Provider: [facility] Reason for consultation: CHF Has provider been notified: Yes 05/28/23 05:01 Consult to Orthopedics Routine Consulting Provider: [facility] Surgeons Reason for consultation: ulna fracture 05/29/23 09:11 Consult to Infectious Diseases Routine Consulting Provider: [facility] Infectious Disease Reason for consultation: GPCC bacteremia Has provider been notified: No 05/30/23 07:37 Consult to Nephrology Routine Consulting Provider: Conrad Hoover Reason for consultation: Susan Has provider been notified: No 06/02/23 13:04 Consult to Urology Routine Consulting Provider: Jalen Ramirez Reason for consultation: hematuria,renal failure, hydronephrosis Has provider been notified: No 06/03/23 11:02 Consult to Orthopedics Routine Consulting Provider: [facility] Surgeons Reason for consultation: left hip pain, fluid collection Has provider been notified: No 06/11/23 15:51 Consult to Pulmonology Routine Consulting Provider: [facility] Pulmonology Services Reason for consultation: Lung mass Attending physician on discharge: Jermaine Love Discharging clinician: Aide Valle DS: Diagnosis Discharge Diagnosis (1) Ulna fracture: Status: Acute (2) Urinary retention with incomplete bladder emptying: Status: Acute (3) Acute kidney injury: Status: Acute (4) Acute on chronic diastolic (congestive) heart failure: Status: Acute (5) Atrial fibrillation with rapid ventricular response: Status: Acute DS: Summary Hospital Course Hospital Course: From H&P on the day of admission This is a 67-year-old female with pertinent history of multiple sclerosis, COPD not on home oxygen, paroxysmal atrial fibrillation on Eliquis, essential hypertension, coronary artery disease, hypothyroidism, congestive heart failure with preserved ejection fraction who presents to the emergency department for evaluation dyspnea.? Patient states that over the last 2 weeks, she is having progressive dyspnea which is worse with exertion.? Also admits orthopnea.? Does have lower extremity leg swelling.? Patient states that she was getting out of car on the day of presentation, she got short of breath and fell.? Patient denies fever, chills, cough, chest discomfort, palpitations, abdominal pain, changes in urinary or bowel habits. In the emergency department, imaging with nondisplaced fracture of coronoid process of ulna.? BNP was elevated Right middle lobe lung nodule Measuring 8 x 25 mm. seen by pulmonology - outpatient PET recommended Thrombocytepenia resolved. plavix and eliquis restarted SUSAN on CKD. Work up with US showed bilateral hydroureteronephrosis with urinary retension. Mahoney placed, started on alpha allyson, seen by nephrology, renal function improved and back to baseline. Has a history of underlying unilateral KIM by history. Hematuria s/p CBI and anticoagulation held. Urine cleared and eliquis restarted urinary retention. mahoney was removed, but then began requiring prn straight cath. was continued on flomax. discussed with urology, mahoney replaced and plan to remain in place for two weeks. Will need outpatient follow up with urology. Acute blood loss anemia due to left thigh hematoma and hematuria. Eliquis on hold initially, was transfused 1 unit of PRBC on 06/06. H/H remained stable and she was restarted on Eliquis Acute respiratory distress.? likely due to acute exacerbation of diastolic heart failure. Lasix was discontinued due to renal failure and patient currently euvolemic. On room air with no respiratory complaints. Non displaced fracture of ulna.? Ortho recommends no intervention. continue sling on left side for comfort. outpatient follow up with ortho as needed. Paroxysmal atrial fibrillation on Eliquis seen by cardiology. started on Amio loading dose 05/30/23 400 bid and now on 200 daily. continued on metoprolol. HR has remained controlled. will need outpatient follow up with cardiology Time Spent with Patient Time attestation: Total time managing care of this patient today ____ minutes. Discharge coordination time: Greater than 30 minutes Quality: Safe Use of Opioids Does Pt have an Active Cancer Diagnosis on the Problem List?: No Quality: Stroke Does the patient have a stroke diagnosis?: No Physical Exam Vital Signs: Vital Signs: Last Vital Signs Temp 96.8 F 06/13/23 07:26 Pulse 71 06/13/23 07:26 Resp 16 06/13/23 07:26 BP 134/77 06/13/23 07:26 Pulse Ox 97 06/13/23 07:26 O2 Del Method Room Air 06/13/23 07:26 O2 Flow Rate 4 05/28/23 19:56 BMI result Body Mass Index 24.7 Const: General: cooperative, comfortable, no acute distress, alert and awake Nutritional Appearance: average body habitus Orientation/consciousness: patient oriented x3 Resp: Effort & Inspection: normal respiratory effort, able to speak in complete sentences, no respiratory distress and no use of accessory muscles Cardio: Rate: regular rate Heart sounds: S1 normal heart sound present and S2 normal heart sound present GI: Inspection: No distended Palpation (GI): Soft to palpation and nontender : Other: mahoney in place, draining clear yellow urine Skin: Other: scab left elbow, small open area without surrounding erythema Neuro: General: patient oriented x3, moves all extremities and CN's II-XI intact bilaterally Extrem: General: Yes no pedal edema DS: Data Data Completed and Pending Completed studies during hospitalization [Text1]: Procedures Zoroastrian of Cardiac Rhythm, Single (09/13/21) Discharge Plan Discharge Anticipated Discharge Date/Time: 06/13/23 13:00 Patient Disposition: Xfer SNF Discharge Diagnosis: Urinary retention SUSAN on CKD 3 Pulmonary nodule Hematuria Acute blood loss anemia Acute on chronic diastolic CHF Paroxysmal atrial fibrillation Referrals: [facility] [Outside] - 1 Week Amina Whitfield MD [Primary Care Provider] - 1 Week Jalen Ramirez MD [Physician] - 1 Week Nakita Marcus PA-C [Physician Industrial Aerial Installer] - 2 Weeks John Lizama MD [Physician] - 1 Week Discharge Medications: New tamsulosin 0.4 mg Capsule 0.4 mg PO BEDTIME 30 Days Qty: 30 0RF amiodarone 200 mg Tablet 200 mg PO DAILY 30 Days Qty: 30 0RF Continued Eliquis 5 mg tablet 5 mg PO BID Qty: 180 2RF atorvastatin 80 mg tablet 80 mg PO DAILY Qty: 90 1RF levothyroxine [Synthroid] 50 mcg tablet 50 mcg PO DAILY Qty: 60 0RF clopidogrel 75 mg tablet 75 mg PO DAILY Qty: 90 3RF oxybutynin chloride 5 mg tablet 5 mg PO BID Qty: 180 1RF metoprolol succinate 50 mg tablet extended release 24 hr 50 mg PO DAILY Qty: 180 0RF fluticasone propion-salmeterol 113-14 mcg/actuation aerosol powdr breath activated 1 inh inhalation Q12H 30 Days Qty: 1 3RF albuterol sulfate 90 mcg/actuation HFA aerosol inhaler 2 puff inhalation Q4-6H PRN (Reason: shortness of breath or wheezing) 30 Days Qty: 8.5 2RF omeprazole 20 mg capsule,delayed release(DR/EC) 20 mg PO QAM Qty: 90 1RF cyanocobalamin (vitamin B-12) [Vitamin B-12] 1,000 mcg Tablet 1,000 mcg PO DAILY cholecalciferol (vitamin D3) [Vitamin D3] 25 mcg (1,000 unit) Tablet 25 mcg PO DAILY melatonin 10 mg Tablet 10 mg PO BEDTIME PRN (Reason: Insomnia) ferrous sulfate 325 mg (65 mg iron) tablet 325 mg PO BEDTIME paroxetine HCl 40 mg tablet 40 mg PO BEDTIME Avonex 30 mcg/0.5 mL pen injector kit 30 mcg IM TU Discharge Orders: Discharge Order (Routine); Ordered 06/13/23 Ordered By: Aide Valle Activity on Discharge: As tolerated Stand Alone Forms: Patient Portal Discharge page Care Plan Goals: see below Health Concerns: SUSAN - resolved hematuria - resolved urinary retention - keep mahoney in place for two weeks, folley up with urology afib with RVR acute on chronic HFpEF acute blood loss anemia due to left thigh hematoma and hematuria. stable non-displaced fracture of ulna - can use sling for comfort - outpatient follow up with orthopedic surgery lung nodule - recommend PET scan to be done as an outpatient constipation - resolved. BM 06/12 Plan of Treatment: Please call to schedule follow up with urology, cardiology, orthopedic surgery, primary care provider Amiodorone has been added for management of atrial fibrillation Will need outpatient PET scan for further evaluation of pulmonary nodule Assessment: see discharge summary
== END 2023-06-13 15:01 | disposition skilled nursing facility (03) | DRG 291 ==
LOC: HO.ED 05-28 03:52 → HO.EDOVER 05-28 04:58 → HO.S3 05-28 12:59
PROVIDERS: Internal Medicine; Internal Medicine Nephrology; Nurse Practitioner Acute Care; Student in an Organized Health Care Education/Training Program; Admitting Provider Student in an Organized Health Care Education/Training Program; Emergency Provider Emergency Medicine; PCP Internal Medicine; Visit Provider Physician Assistant Medical
DX: I13.0 Hypertensive heart and chronic kidney disease with heart failure and stage 1 through stage 4 chronic kidney disease, or unspecified chronic kidney disease (principal); I50.33 Acute on chronic diastolic (congestive) heart failure; S52.02 Fracture of olecranon process without intraarticular extension of ulna; J18.9 Pneumonia, unspecified organism; N17.0 Acute kidney failure with tubular necrosis; J44.0 Chronic obstructive pulmonary disease with (acute) lower respiratory infection; D68.32 Hemorrhagic disorder due to extrinsic circulating anticoagulants; R78.81 Bacteremia; N13.6 Pyonephrosis; D62 Acute posthemorrhagic anemia; N13.8 Other obstructive and reflux uropathy; R31.0 Gross hematuria; I25.10 Atherosclerotic heart disease of native coronary artery without angina pectoris; E03.9 Hypothyroidism, unspecified; N18.2 Chronic kidney disease, stage 2 (mild); G35 Multiple sclerosis; F39 Unspecified mood [affective] disorder; Z20.822 Contact with and (suspected) exposure to COVID-19; Z95.1 Presence of aortocoronary bypass graft; I25.2 Old myocardial infarction; N39.490 Overflow incontinence; D69.6 Thrombocytopenia, unspecified; I70.1 Atherosclerosis of renal artery; D63.1 Anemia in chronic kidney disease; S70.12XA Contusion of left thigh, initial encounter; K59.00 Constipation, unspecified; R33.9 Retention of urine, unspecified; T45.515A Adverse effect of anticoagulants, initial encounter; B95.7 Other staphylococcus as the cause of diseases classified elsewhere; W19.XXXA Unspecified fall, initial encounter; Z87.891 Personal history of nicotine dependence; Z79.01 Long term (current) use of anticoagulants; Z79.02 Long term (current) use of antithrombotics/antiplatelets; Z79.51 Long term (current) use of inhaled steroids; Z79.890 Hormone replacement therapy; Z79.899 Other long term (current) drug therapy
CPT/HCPCS: 36415; 70450; 71045; 72125; 73080; 73700; 74176; 76775; 80048; 80076; 80202; 81001; 81003; 82565; 82803; 83605; 83880; 84300; 84484; 85025; 85027; 86850; 86900; 86901; 86923; 87040; 87077; 87086; 87147; 87186; 87205; 87635; 93005; 93306; 97110; 97140; 97162; 97166; 97530; 97535; 99218; 99285; C1758; J0690; J0692; J0696; J1160; J1940; J2270; J2405; J3370; P9016; Q9957

== ENCOUNTER → 2023-05-27 22:09 | Outpatient (BNV) | payer MEDICARE, BC, SELFPAY | PROVIDERS: Admitting Provider Student in an Organized Health Care Education/Training Program; Emergency Provider Emergency Medicine; PCP Internal Medicine; Visit Provider Internal Medicine | DX: I48.91 Unspecified atrial fibrillation (principal); R94.31 Abnormal electrocardiogram [ECG] [EKG] | CPT/HCPCS: 93010 ==

== ENCOUNTER → 2023-05-28 04:52 | Outpatient (BNV) | payer MEDICARE, BC, SELFPAY | PROVIDERS: Admitting Provider Student in an Organized Health Care Education/Training Program; Emergency Provider Emergency Medicine; PCP Internal Medicine; Visit Provider Student in an Organized Health Care Education/Training Program | DX: S52.202A Unspecified fracture of shaft of left ulna, initial encounter for closed fracture (principal); N17.9 Acute kidney failure, unspecified; I50.33 Acute on chronic diastolic (congestive) heart failure; I48.91 Unspecified atrial fibrillation; R33.9 Retention of urine, unspecified | CPT/HCPCS: 99222; 99232; 99233; 99239; 99499 ==

== ENCOUNTER → 2023-05-28 04:52 | Outpatient (BNV) | payer MEDICARE, BC, SELFPAY | PROVIDERS: Admitting Provider Student in an Organized Health Care Education/Training Program; Emergency Provider Emergency Medicine; PCP Internal Medicine; Visit Provider Internal Medicine | DX: I50.33 Acute on chronic diastolic (congestive) heart failure (principal); I48.91 Unspecified atrial fibrillation; I25.10 Atherosclerotic heart disease of native coronary artery without angina pectoris; S52.02 Fracture of olecranon process without intraarticular extension of ulna; S52.209A Unspecified fracture of shaft of unspecified ulna, initial encounter for closed fracture; R78.81 Bacteremia | CPT/HCPCS: 93306; 99223; 99232 ==

== ENCOUNTER → 2023-05-28 04:52 | Outpatient (BNV) | payer MEDICARE, BC, SELFPAY | PROVIDERS: Admitting Provider Student in an Organized Health Care Education/Training Program; Emergency Provider Emergency Medicine; PCP Internal Medicine; Visit Provider Orthopaedic Surgery | DX: S52.202A Unspecified fracture of shaft of left ulna, initial encounter for closed fracture (principal); W19.XXXA Unspecified fall, initial encounter; I50.33 Acute on chronic diastolic (congestive) heart failure | CPT/HCPCS: 99222; 99231 ==

== ENCOUNTER 2023-05-29 16:22 | Outpatient (BNV) | payer MEDICARE, BC, SELFPAY | END 2023-06-07 09:05 | PROVIDERS: Admitting Provider Student in an Organized Health Care Education/Training Program; Emergency Provider Emergency Medicine; PCP Internal Medicine; Visit Provider Internal Medicine Cardiovascular Disease | DX: I48.91 Unspecified atrial fibrillation (principal) | CPT/HCPCS: 93010 ==

== ENCOUNTER → 2023-05-29 16:22 | Outpatient (BNV) | payer MEDICARE, BC, SELFPAY | PROVIDERS: Admitting Provider Student in an Organized Health Care Education/Training Program; Emergency Provider Emergency Medicine; PCP Internal Medicine; Visit Provider Internal Medicine | DX: R78.81 Bacteremia (principal) | CPT/HCPCS: 99222; 99232 ==

== ENCOUNTER → 2023-05-29 16:22 | Outpatient (BNV) | payer MEDICARE, BC, SELFPAY | PROVIDERS: Admitting Provider Student in an Organized Health Care Education/Training Program; Emergency Provider Emergency Medicine; PCP Internal Medicine; Visit Provider Urology | DX: R33.9 Retention of urine, unspecified (principal) | CPT/HCPCS: 99222 ==

== ENCOUNTER → 2023-05-29 16:22 | Outpatient (BNV) | payer MEDICARE, BC, SELFPAY | PROVIDERS: Admitting Provider Student in an Organized Health Care Education/Training Program; Emergency Provider Emergency Medicine; PCP Internal Medicine; Visit Provider Internal Medicine | DX: J44.9 Chronic obstructive pulmonary disease, unspecified (principal); Z87.891 Personal history of nicotine dependence; R91.8 Other nonspecific abnormal finding of lung field; R06.00 Dyspnea, unspecified | CPT/HCPCS: 99232 ==

== ENCOUNTER 2023-06-17 09:07 | Outpatient (AMB) | payer MEDICARE, BC, SELFPAY ==
--- NOTE | 2023-06-17 09:41 | MHC.OFFVIS ---
Intake Intake Visit Reasons: voiding trial Intake Note: Patient is present for Voiding Trial Urology Med:Oxybutynin, Tamsulosin Antibiotic Allergy:None Blood Thinner: Apixaban Pharmacy: [facility] Allergies codeine [Codeine] Adverse Reaction (Mild, Verified 07/03/23 12:33) vomiting HPI HPI Comments History of Present Illness Details Nai is a pleasant female. She is a patient Dr. Whitfield. She seen for following urologic conditions - urinary retention Voiding trial today Failed voiding trial Repeat in 4 weeks Will need CIC teaching if progressive Urinary retention Episode in hospital lost admitted for acute on chronic heart failure On imaging bilateral hydroureteronephrosis with urinary retention was seen. At that point creatinine had peaked at 3.1. Nephrology Neurology consult requested. Hou catheter placed with hematuria secondary to Eliquis. Decompression of bladder has resulted in decline in creatinine. On discussion with patient she states she has worn a diaper with incontinence for the prior 4-6 weeks. [facility] Medical History (Updated 07/18/23 @ 08:38 by Jalen Ramirez MD) PAF (paroxysmal atrial fibrillation) Atrial fibrillation with rapid ventricular response Left renal artery stenosis Personal history of nicotine dependence Cardiomyopathy Essential hypertension Atherosclerotic cardiovascular disease Asymmetric blood pressures Acute on chronic systolic (congestive) heart failure CHF (congestive heart failure) CAD (coronary artery disease) Multiple sclerosis Pulmonary nodules COPD (chronic obstructive pulmonary disease) Peripheral arterial occlusive disease Surgical History (Updated 07/15/23 @ 00:03 by Camelia Bermudez) History of endoscopy History of colonoscopy History of heart artery stent (~2018) Status post angioplasty with stent (~09/2018) S/P insertion of iliac artery stent (~02/2019) S/P cardiac cath (~12/2020) History of cholecystectomy (~02/2009) Family History Father No problems noted. Mother No problems noted. Brother Diabetes Social History Household Members: None Housing: House Are you a primary tree care foreman to a significant other at home: No Do you presently have visiting nurse or other home services: No Alcohol intake: never Patient Tobacco Use Status: Former Tobacco user Quit Date: 2017 Tobacco use type: Cigarette e-Cigarette/Vaping Use: Never Used Second Hand Smoke Exposure: No Advance Directives Date on File: 12/27/20 service: No Current occupational status: retired Cognitive needs: Yes (cane) Hearing needs: No Vision needs: Yes (reading glasses) Review of Systems Const Denies chills and Denies fever(s) Card Reports no additional complaints and Denies syncope Resp Denies cough GI Denies abdominal pain and Denies heartburn Reports as per HPI and Denies change in libido Neuro Denies syncope Psych Denies change in libido Endo Denies change in libido Physical Exam Const General: cooperative, healthy appearing, comfortable and no acute distress Orientation/consciousness: patient oriented x3 HEENT Face and sinus: Yes normal facial exam Mouth: moist mucous membranes Neck Neck: Yes normal visual inspection, Yes full ROM and Yes trachea midline Chest Chest palpation & inspection: normal inspection of the chest Resp Effort & Inspection: normal respiratory effort, able to speak in complete sentences and no respiratory distress GI Inspection: Yes normal to inspection Back/Spine/Pelvis Cervical Spine: normal cervical lordosis Thoracic/Lumbar Spine: thoracic and lumbar spine normal to inspection Skin General skin exam: no rashes or lesions noted Neuro General: patient oriented x3, gait normal, tone normal and moves all extremities Extrem General: Yes normal to inspection and Yes capillary refill normal Office Procedures Bladder/Catheter Procedure Details: 120 mls sterile water instilled into bladder, 16 fr cath w 10 ml balloon removed, pt tolerated removal well. with assistance pt moved to commode [place]. [id number] of Bladder Procedure code (CPT) selection complete Assessment & Plan Assessment & Plan (1) Hypotonic neurogenic bladder: Code(s): N31.9 - Neuromuscular dysfunction of bladder, unspecified Plan Progressive neurologic bladder issues Orders: Orders AMB Bladder/Catheter Procedure 06/17/23 R33.9 - Retention of urine, unspecified AMB Post Void Residual by ultrasound 06/17/23 R33.9 - Retention of urine, unspecified Patient Instructions: Imaging studies, laboratory and physical exam results were discussed and reviewed in detail. No major barriers to patient understanding were identified. An opportunity to ask questions regarding the treatment plan was provided. All questions were answered. The patient expressed understanding and agreement with the above treatment plan. The patient is aware they should contact our office by phone for worsening of their current condition or the appearance of new urologic symptoms. Compliance is encouraged with any medications and followup testing that is ordered. It is a privilege to participate in the urologic care of your patient. If you have any questions or concerns regarding treatment for the above conditions, or other urologic issues, please do not hesitate to contact me. The office telephone contact is [phone]. This note is constructed using voice recognition software. While every effort has been made to ensure accuracy forensic structural engineer errors may have been included. Yours sincerely, Dr Jalen Ramirez MD, B[facility] - Urology Providers of Expert, Compassionate Care for the Genitourinary System Coding Level of Care Code Est Pt Level 4 (45955) Diagnoses Hypotonic neurogenic bladder N31.9 CPT Codes Bladder/Catheter Procedure - CPT: 92647-Vohmxvrumk of Bladder ([id number])
== END 2023-06-17 11:54 | disposition home or self-care (01) ==
LOC: HO.HUSH 09:07
PROVIDERS: PCP Internal Medicine; Visit Provider Urology
DX: N31.9 Neuromuscular dysfunction of bladder, unspecified (principal)
CPT/HCPCS: 51700; 99214

== ENCOUNTER → 2023-06-17 09:07 | Outpatient (BNVA) | payer MEDICARE, BC, SELFPAY | PROVIDERS: PCP Internal Medicine; Visit Provider Urology | DX: N31.9 Neuromuscular dysfunction of bladder, unspecified (principal) | CPT/HCPCS: 51700; 99212 ==

== ENCOUNTER 2023-06-26 11:12 | Outpatient (AMB) | payer MEDICARE, BC, SELFPAY ==
--- NOTE | 2023-06-26 11:15 | MHC.OFFVIS ---
Intake Vital Signs 06/26/23 11:19 Height 5 ft 6 in Weight 140 lb BMI 22.6 Handedness Right Intake Visit Reasons: FC - left elbow fx, DOI 05/27/23. Intake Note: Nai is a 67 year old right hand dominant female who presents today for a fracture care appointment for her left elbow fx, DOI 05/27/23. Patient reports when she was getting out of her car she was feeling very short of breath and landed on the floor. Patiet reports no pain or discomfort at the moment. Denies numbness and tingling. Allergies codeine [Codeine] Adverse Reaction (Mild, Verified 06/26/23 11:16) vomiting HPI FC - left elbow fx, DOI 05/27/23. HPI Details 67-year-old right hand dominant female who presents in the office today for an evaluation of left elbow ulnar fracture, which occurred on 05/27/2023 status post an episode of dyspnea when getting out of her car which caused her to fall landing on her left elbow. She denies pain or discomfort while in the office today. She denies numbness or tingling. [facility] Medical History Acute on chronic systolic (congestive) heart failure Asymmetric blood pressures Atherosclerotic cardiovascular disease Atrial fibrillation with rapid ventricular response Bacteremia CAD (coronary artery disease) Cardiomyopathy CHF (congestive heart failure) COPD (chronic obstructive pulmonary disease) Dyspnea on effort Essential hypertension Left renal artery stenosis Multiple sclerosis PAF (paroxysmal atrial fibrillation) Peripheral arterial occlusive disease Personal history of nicotine dependence Pulmonary nodules Staphylococcus epidermidis bacteremia Surgical History History of cholecystectomy (~02/2009) History of colonoscopy History of endoscopy History of heart artery stent (~2018) S/P cardiac cath (~12/2020) S/P insertion of iliac artery stent (~02/2019) Status post angioplasty with stent (~09/2018) Family History Father No problems noted. Mother No problems noted. Brother Diabetes Social History Household Members: None Housing: House Are you a primary acute care assistant to a significant other at home: No Do you presently have visiting nurse or other home services: No Alcohol intake: never Patient Tobacco Use Status: Former Tobacco user Quit Date: 2017 Tobacco use type: Cigarette e-Cigarette/Vaping Use: Never Used Second Hand Smoke Exposure: No Advance Directives Date on File: 12/27/20 service: No Current occupational status: retired Cognitive needs: Yes (cane) Hearing needs: No Vision needs: Yes (reading glasses) Review of Systems Const All systems reviewed & are unremarkable except as noted in HPI and below Physical Exam Vital Signs: BMI result Body Mass Index 22.6 Const General: cooperative and no acute distress Orientation/consciousness: patient oriented x3 Resp Effort & Inspection: normal respiratory effort and able to speak in complete sentences Cardio Peripheral pulses: Peripheral pulses 2+ throughout Skin General skin exam: no rashes or lesions noted Neuro General: patient oriented x3 Extrem Other: Left elbow: Normal to inspection. No ecchymosis, erythema, or edema. Pea sized eschar tissue over the olecranon. No signs of infection. No surrounding erythema or drainage. Full elbow ROM flexion, extension, pronation, and supination. No laxity with vargus or valgus stress. No tenderness to palpation over the olecranon. No tenderness to the medial or lateral epicondyle. NVI. Office Procedures Fracture Care Fracture Billing Code: Fracture Billing Code Assessment & Plan Assessment & Plan (1) Fracture of left proximal ulna: Code(s): S52.002A - Unspecified fracture of upper end of left ulna, initial encounter for closed fracture Plan Ms. Garcia is a 67-year-old right hand dominant female who presents in the office today for an evaluation of left elbow ulnar fracture, which occurred on 05/27/2023 status post an episode of dyspnea when getting out of her car which caused her to fall landing on her left elbow. She denies pain or discomfort while in the office today. She denies numbness or tingling. She may return to normal activities as tolerated. She may full weight bear as tolerated on the left upper extremity. Follow up will be PRN, or sooner if needed. X-rays of the left elbow, obtained on 05/27/2023, revealed: 1. Equivocal nondisplaced fracture of the coronoid process of the proximal ulna. Correlate with point tenderness. 2. Small anterior joint effusion. 3. Punctate radiodensities along the posterior surface of the elbow could represent foreign bodies. Medications: Discontinued ferrous sulfate 325 mg PO DAILY 90 tabs 1RF Patient Instructions: Scribed for Nakita Marcus PA-C by Christa Ty medical records field technician, on 06/26/2023 at 11:26 am, EST. Coding Level of Care Code Est Pt Level 3 (37126) Diagnoses Fracture of left proximal ulna S52.002A CPT Codes Fracture Care - Fracture Billing Code: Fracture Billing Code ([id number])
[2023-06-26 11:19] VITALS: BMI 22.6
== END 2023-06-26 12:01 | disposition home or self-care (01) ==
PROVIDERS: PCP Internal Medicine; Visit Provider Physician Assistant
DX: S52.045A Nondisplaced fracture of coronoid process of left ulna, initial encounter for closed fracture (principal); W19.XXXA Unspecified fall, initial encounter
CPT/HCPCS: 99213

== ENCOUNTER → 2023-06-26 11:12 | Outpatient (BNVA) | payer MEDICARE, BC, SELFPAY | PROVIDERS: PCP Internal Medicine; Visit Provider Physician Assistant | DX: S52.002A Unspecified fracture of upper end of left ulna, initial encounter for closed fracture (principal) | CPT/HCPCS: 99212 ==

== ENCOUNTER 2023-06-27 13:36 | Outpatient (AMB) | payer MEDICARE, BC, SELFPAY ==
[2023-06-27 13:45] VITALS: BP 130/90; PULSE 76; BMI 22.6
--- NOTE | 2023-06-27 13:45 | A.OFFVIS_ITS ---
Intake Vital Signs 06/27/23 13:45 Height 5 ft 6 in Weight 140 lb BMI 22.6 BP 130/90 H Blood Pressure Location Rt brachial Position Sitting Pulse 76 Intake Visit Reasons: [facility] [place] [facility] [place] Allergies codeine [Codeine] Adverse Reaction (Mild, Verified 06/27/23 13:56) vomiting Medication List - Last Reconciled 06/27/23 by MODESTA Tyler albuterol sulfate 90 mcg/actuation 2 puffs inhalation Q4-6H PRN 30 days amiodarone 200 mg PO DAILY 30 days apixaban (Eliquis) 5 mg PO BID atorvastatin 80 mg PO DAILY cholecalciferol (vitamin D3) (Vitamin D3) 25 mcg PO DAILY clopidogrel 75 mg PO DAILY cyanocobalamin (vitamin B-12) (Vitamin B-12) 1,000 mcg PO DAILY ferrous sulfate 325 mg PO BEDTIME fluticasone propion-salmeterol 113-14 mcg/actuation 1 inh inhalation Q12H 30 days interferon beta-1a (Avonex) 30 mcg IM TU levothyroxine (Synthroid) 50 mcg PO DAILY melatonin 10 mg PO BEDTIME PRN metoprolol succinate ER 50 mg PO DAILY omeprazole 20 mg PO QAM oxybutynin chloride 5 mg PO BID paroxetine HCl 40 mg PO BEDTIME tamsulosin 0.4 mg PO BEDTIME 30 days HPI [facility] Follow up HPI Details Nai is a 67-year-old female past medical history of hypertension, hyperlipidemia, COPD, PA D, CAD the with left circumflex and RCA stents, NSTEMI in the setting of hypertensive crisis, heart failure with preserved EF, atrial fibrillation who was recently admitted to [facility] with increasing shortness of breath and fall. She sustained a fractured ulna. She was treated for decompensated heart failure. She was in AFib RVR and treated for rate control. She was put on amiodarone load. She also had issues with urosepsis/bacteremia which has since resolved. She continues to have a catheter in place for urinary retention. Upon her hospital discharge on 06/17 she was sent to a rehab where she remains. Today she reports that she has been experiencing shortness of breath with walking. She is mostly sedentary and has not been walking much. She does not like the rehab and is hoping to get out of there soon. She is frustrated with the Hou catheter. She denies shortness of breath at rest or when laying down. No cough, fevers. No chest discomfort at rest or with activity. No palpitations, dizziness, presyncope, syncope, falls. She does have mild bilateral ankle edema. She is currently sitting in a wheelchair. She takes all her meds as directed by the rehab facility. She has been taking Eliquis uninterrupted. [facility] Medical History (Updated 06/27/23 @ 15:13 by Ijeoma Becerra NP-C) Acute on chronic systolic (congestive) heart failure Asymmetric blood pressures Atherosclerotic cardiovascular disease Atrial fibrillation with rapid ventricular response CAD (coronary artery disease) Cardiomyopathy CHF (congestive heart failure) COPD (chronic obstructive pulmonary disease) Essential hypertension Left renal artery stenosis Multiple sclerosis PAF (paroxysmal atrial fibrillation) Peripheral arterial occlusive disease Personal history of nicotine dependence Pulmonary nodules Surgical History History of cholecystectomy (~02/2009) History of colonoscopy History of endoscopy History of heart artery stent (~2018) S/P cardiac cath (~12/2020) S/P insertion of iliac artery stent (~02/2019) Status post angioplasty with stent (~09/2018) Family History Father No problems noted. Mother No problems noted. Brother Diabetes Social History Household Members: None Housing: House Are you a primary care professionals to a significant other at home: No Do you presently have visiting nurse or other home services: No Alcohol intake: never Patient Tobacco Use Status: Former Tobacco user Quit Date: 2017 Tobacco use type: Cigarette e-Cigarette/Vaping Use: Never Used Second Hand Smoke Exposure: No Advance Directives Date on File: 12/27/20 service: No Current occupational status: retired Cognitive needs: Yes (cane) Hearing needs: No Vision needs: Yes (reading glasses) Review of Systems Const All systems reviewed & are unremarkable except as noted in HPI and below ENT Denies dizziness Card Denies chest pain, Denies chest pain at rest, Denies chest pain with activity, Denies rapid heart rate, Reports pedal edema, Denies edema, Reports leg edema, Denies lightheadedness, Denies palpitations, Reports dyspnea, Reports dyspnea on exertion and Denies orthopnea Resp Denies cough, Reports dyspnea and Reports dyspnea on exertion GI Denies hematochezia and Denies change in stool character Musc Reports abnormal gait, Denies limited range of motion, Denies muscle cramps, Reports muscle weakness, Denies numbness, Denies radiating pain into limb, Denies stiffness and Denies tingling Neuro Reports abnormal gait, Denies dizziness, Denies numbness and Denies tingling Endo Denies palpitations Physical Exam Vital Signs: Last Vital Signs Pulse 76 06/27/23 13:45 BP 130/90 H 06/27/23 13:45 BMI result Body Mass Index 22.6 Const Other: Sitting in wheelchair General: cooperative, comfortable and no acute distress Orientation/consciousness: patient oriented x3 Neck Neck: Yes normal visual inspection and Yes no JVD Resp Effort & Inspection: normal respiratory effort Auscultation: clear to auscultation bilaterally, no crackles, no rales, no rhonchi and no wheezes Cardio Jugular venous distension: no JVD Rate: regular rate Rhythm: abnormal rhythm Heart sounds: S1 normal heart sound present, S2 normal heart sound present, no murmurs and no rubs Neuro General: patient oriented x3 Extrem Other: Plus one ankle edema Psych Appearance: grossly normal Mental Status: mental status grossly normal Speech and movement: Normal speech and movement present Office Procedures EKG Details: Today, read by me, atrial fibrillation, can not rule out anterior infarct, age undetermined, ST and T-wave abnormality which is unchanged from prior EKG, inferior lateral leads, rate 76, QTC 450ms as calculated by me. [id number], Complete Assessment & Plan Assessment & Plan (1) Atrial fibrillation, persistent: Code(s): I48.19 - Other persistent atrial fibrillation Plan: History of atrial fibrillation. Noted to have AFib RVR at recent hospital admission which was treated with rate control. She was then started on amiodarone to help with rhythm control. Her EKG today is showing atrial fibrillation with rate 76. She notices shortness of breath with activity such as trying to walk. She admits to being mostly sedentary in the rehab facility because of this symptom. She has generalized weakness. No heart palpitations. She has completed the amiodarone load and is now on 200 mg once daily. She is on Eliquis for anticoagulation. An echocardiogram done 05/28/2023 shows EF 20- 25%, left atrium severely dilated, basal inferior and inferior septum akinetic. The EF has reduced from prior echocardiogram 11/01/2022 when EF was 59%. A nuclear stress test had been done 02/07/2023 showing normal myocardial perfusion imaging. Plan of care to be discussed with her primary child welfare counselor Dr. Lizama. Will see whether cardiac catheterization, cardioversion are appropriate for her. Follow-up to office to be determined. Continue current med management. (2) Cardiomyopathy: Code(s): I42.9 - Cardiomyopathy, unspecified Qualifiers: Cardiomyopathy type: other Qualified Code(s): I42.8 - Other cardiomyopathies Plan: New cardiomyopathy with EF 20-25%. On examination she does not appear in heart failure however does have some mild ankle edema which can be explained by sedentary lifestyle and dependent positioning. I gave her compression stockings that she can use. She is not on diuretics currently. She is on metoprolol XL for neurohormonal modulation. She did have SUSAN a few weeks ago with creatinine as high as 3.14. Last known creatinine 0.98 on 06/10/2023. Will hold off on the addition of Andrew/Arb at present time (3) CHF (congestive heart failure): Code(s): I50.9 - Heart failure, unspecified Plan: In the setting of AFib RVR. Diuresed with improvement in condition. Signs and symptoms of heart failure reviewed with her. (4) Essential hypertension: Code(s): I10 - Essential (primary) hypertension Plan: Blood pressure seems adequately controlled, mildly elevated diastolic initially, improved on my recheck. (5) S/P cardiac cath: Onset Date: ~12/2020 Comment: (12/27/20 - Dr. Garcia, [facility]: Lm normal, mid LAD, proximal 60%, 2nd diag prox 75%, LCx prox stent patent, Lcx mid 65%, 1st OM 40%, RCA prox stent patent, mid RCA prox 70% - inferior/ inferolateral WMA on echo not explained by anatomy) Code(s): Z98.890 - Other specified postprocedural states (6) CAD (coronary artery disease): Comment: (Hx 2 MIs 2019 & 2020 - Hx LCx & RCA stents 2019 - patent on recent 12/2020 cath) Code(s): I25.10 - Atherosclerotic heart disease of [place] coronary artery without angina pectoris Plan: She does have shortness of breath with activity. No chest discomfort. Reviewing plan of care with her primary child welfare counselor. Continue Plavix, atorvastatin, metoprolol XL (7) Hospital discharge follow-up: Code(s): Z09 - Encounter for follow-up examination after completed treatment for conditions other than malignant neoplasm Medications: Discontinued ferrous sulfate 325 mg PO DAILY 90 tabs 1RF Coding Level of Care Code Est Pt Level 4 (40129) Diagnoses Atrial fibrillation, persistent I48.19 Cardiomyopathy I42.8 Cardiomyopathy type: other CHF (congestive heart failure) I50.9 Essential hypertension I10 S/P cardiac cath Z98.890 CAD (coronary artery disease) I25.10 Hospital discharge follow-up Z09 CPT Codes EKG - CPT: 33816-[id number], Complete ([id number]) Time Spent (min) 30 Comment Chart review, documentation, interview, assess
== END 2023-06-27 14:26 | disposition home or self-care (01) ==
PROVIDERS: PCP Internal Medicine; Referring Provider Internal Medicine; Visit Provider Nurse Practitioner Family
DX: I48.19 Other persistent atrial fibrillation (principal); I42.8 Other cardiomyopathies; I50.9 Heart failure, unspecified; I10 Essential (primary) hypertension; Z98.890 Other specified postprocedural states; I25.10 Atherosclerotic heart disease of native coronary artery without angina pectoris; Z09 Encounter for follow-up examination after completed treatment for conditions other than malignant neoplasm
CPT/HCPCS: 93010; 99214

== ENCOUNTER → 2023-06-27 13:36 | Outpatient (BNVA) | payer MEDICARE, BC, SELFPAY | PROVIDERS: PCP Internal Medicine; Referring Provider Internal Medicine; Visit Provider Nurse Practitioner Family | DX: Z09 Encounter for follow-up examination after completed treatment for conditions other than malignant neoplasm (principal); I48.19 Other persistent atrial fibrillation; I42.8 Other cardiomyopathies; I11.0 Hypertensive heart disease with heart failure; I50.9 Heart failure, unspecified; I25.10 Atherosclerotic heart disease of native coronary artery without angina pectoris; Z98.890 Other specified postprocedural states; Z79.01 Long term (current) use of anticoagulants | CPT/HCPCS: 93005; 99212 ==

== ENCOUNTER 2023-07-03 10:12 | Inpatient (IN) | payer MEDICARE, BC, SELFPAY ==
[2023-07-03] VITALS (10 sets, daily range): BP systolic 115–151; BP diastolic 67–100; PULSE 90–125; RESP 15–23; TEMP 36.9–37.6; O2SAT 93–98; BMI 22.8
--- NOTE | ~2023-07-03 | XR_ITS ---
EXAMINATION: XR CHEST 2 VIEW CLINICAL INFORMATION: Productive cough COMPARISON: 05/27/2023 TECHNIQUE: PA and lateral views of the chest obtained. FINDINGS: There is a moderate size right pleural effusion. Right base infiltrate or atelectasis is present. The left lung is clear. The cardiomediastinal silhouette is stable noting mild cardiomegaly. The central and upper lung zone pulmonary vessels are somewhat more prominent than on 05/27/2023. XR/XR chest 2V IMPRESSION: 1. Moderate right pleural effusion. 2. Right base infiltrate or atelectasis. 3. Mild ulnar vascular congestion and redistribution.
--- NOTE | 2023-07-03 10:20 | ED_ITS ---
HPI - SOB/Dyspnea General Chief Complaint: General Medical Stated Complaint: SOB Time Seen by Provider: 07/03/23 10:18 Source: patient and EMS Mode of arrival: EMS Limitations: no limitations History of Present Illness HPI Narrative: 67 year old female with history of afib on Eliquis, HFpEF, PAD, HTN, multiple sclerosis, COPD, CAD, hypothyroidism, CKD, hx urinary retention with recent admission to [facility] [place] 05/29-06/13 for rapid afib, UTI, SUSAN on CKD w/ urinary retention and hematuria requiring Hou and SBI, open olecranon fracture s/p fall who presents to the ER from acute rehab for evaluation of [id number] shortness of breath. Reports that her dyspnea acutely worsened last night. Reports productive cough with green mucous. States that she thinks her legs are more swollen than usual. Endorses fever, headache, cough, sore throat, fatigue, body aches, nausea. Denies any pleuritic chest pain, nasal congestion, abdominal pain, vomiting, diarrhea, constipation. Living in a SNF since discharge. She states they tested everyone at the rehab for COVID yesterday and today, she states she was negative. MD elicited complaint: shortness of breath and cough Pertinent past history: congestive heart failure Onset (ago): day(s) Timing: constant and progressively worsening Exacerbating factors: lying flat, movement and coughing Known history of: congestive heart failure Associated symptoms: fever, cough, sputum production, palpitations and nausea/vomiting Treatment prior to arrival: none Related Data Home oxygen amount: none Home Medications Medication Instructions Recorded Confirmed interferon beta-1a 30 mcg/0.5 mL 30 mcg IM TU 10/03/20 06/27/23 intramuscular pen kit (Avonex) paroxetine HCl 40 mg tablet 40 mg PO BEDTIME 10/03/20 06/27/23 cholecalciferol (vitamin D3) 25 25 mcg PO DAILY 12/20/20 06/27/23 mcg (1,000 unit) tablet (Vitamin D3) cyanocobalamin (vitamin B-12) 1,000 mcg PO DAILY 12/20/20 06/27/23 1,000 mcg tablet (Vitamin B-12) melatonin 10 mg tablet 10 mg PO BEDTIME PRN Insomnia 01/13/23 06/27/23 ferrous sulfate 325 mg (65 mg 325 mg PO BEDTIME 05/28/23 06/27/23 iron) tablet Previous Rx's Medication Instructions Recorded apixaban 5 mg tablet (Eliquis) 5 mg PO BID #180 tabs 11/28/22 atorvastatin 80 mg tablet 80 mg PO DAILY #90 tabs 01/19/23 clopidogrel 75 mg tablet 75 mg PO DAILY #90 tabs 04/24/23 oxybutynin chloride 5 mg tablet 5 mg PO BID #180 tabs 04/26/23 metoprolol succinate 50 mg 50 mg PO DAILY #180 tabs 04/28/23 tablet,extended release 24 hr albuterol sulfate 90 mcg/actuation 2 puff inhalation Q4-6H PRN 05/24/23 aerosol inhaler shortness of breath or wheezing 30 days #8.5 grams fluticasone 113 mcg-salmeterol 14 1 inh inhalation Q12H copd 30 days 05/24/23 mcg/actuation breath activated #1 ea powdr omeprazole 20 mg capsule,delayed 20 mg PO QAM #90 caps 05/25/23 release amiodarone 200 mg tablet 200 mg PO DAILY 30 days #30 tabs 06/13/23 tamsulosin 0.4 mg capsule 0.4 mg PO BEDTIME 30 days #30 caps 06/13/23 levothyroxine 50 mcg tablet 50 mcg PO DAILY #60 tabs 06/20/23 (Synthroid) Allergies Allergy/AdvReac Type Severity Reaction Status Date / Time codeine [Codeine] AdvReac Mild vomiting Verified 07/03/23 12:33 Review of Systems 2 Review of Systems: Yes all other systems are reviewed and are negative [facility] Past Medical History Medical History (Updated 07/03/23 @ 12:51 by KARLY Carrillo) PAF (paroxysmal atrial fibrillation) Atrial fibrillation with rapid ventricular response Left renal artery stenosis Personal history of nicotine dependence Cardiomyopathy Essential hypertension Atherosclerotic cardiovascular disease Asymmetric blood pressures Acute on chronic systolic (congestive) heart failure CHF (congestive heart failure) CAD (coronary artery disease) Multiple sclerosis Pulmonary nodules COPD (chronic obstructive pulmonary disease) Peripheral arterial occlusive disease Surgical History History of endoscopy History of colonoscopy History of heart artery stent (~2018) Status post angioplasty with stent (~09/2018) S/P insertion of iliac artery stent (~02/2019) S/P cardiac cath (~12/2020) History of cholecystectomy (~02/2009) Family History Family History Father No problems noted. Mother No problems noted. Brother Diabetes Social History Social History Household Members: None Housing: House Are you a primary senior care provider to a significant other at home: No Do you presently have visiting nurse or other home services: No Alcohol intake: never Patient Tobacco Use Status: Former Tobacco user Quit Date: 2017 Tobacco use type: Cigarette Smoked in Last 30 Days: No e-Cigarette/Vaping Use: Never Used Second Hand Smoke Exposure: No Use of substances other than those prescribed or required for medical reasons: No Advance Directives: Yes Advance Directives on File: Yes Advance Directives Date on File: 12/27/20 service: No Current occupational status: retired Cognitive needs: Yes (cane) Hearing needs: No Vision needs: Yes (reading glasses) Physical Exam 2 Vital Signs: Vital Signs: Last Vital Signs Temp 98.9 F 07/03/23 12:55 Pulse 125 H 07/03/23 12:55 Resp 18 07/03/23 12:55 BP 141/100 H 07/03/23 12:55 Pulse Ox 97 07/03/23 12:55 O2 Del Method Room Air 07/03/23 12:55 BMI result Body Mass Index 22.8 Const: General: cooperative, healthy appearing and no acute distress O rientation/consciousness: patient oriented x3 Resp: Effort & Inspection: normal respiratory effort, able to speak in complete sentences and Actively coughing Auscultation: diminished lung sounds (Diminished breath sounds, congestion with rales in lower bases) Cardio: Rate: tachycardic Rhythm: abnormal rhythm irregularly irregular Skin: Other: [place], warm, dry skin Neuro: General: patient oriented x3 Extrem: General: Yes edema (1+ pitting edema, compression socks applied) Medications Administered Discontinued Medications Generic Name Dose Route Start Last Admin Trade Name Freq PRN Reason Stop Dose Admin Furosemide 20 mg 07/03/23 12:39 07/03/23 12:57 Furosemide 20 Mg/2 Ml Vial IVPUSH 07/03/23 12:40 20 mg ONCE ONE Administration Protocol Metoprolol Tartrate 5 mg 07/03/23 12:39 07/03/23 12:59 Metoprolol Tartrate 5 Mg/5 Ml Vial IVPUSH 07/03/23 12:40 5 mg ONCE ONE Administration Medical Decision Making Medical Decision Making [facility] Narrative: 67 year old female with extensive cardiac history presents with acute on chronic shortness of breath, cough, fatigue. Physical exam reveals diminished lung sounds, with rales in lower bases. Afib w/ RVR HR 110-120. Work up included basic labs, BNP, EKG, CXR, respiratory panel. Lab showing no leukocytosis. She has significant elevated BNP of 1800, compared to prior was 1400 when she was admitted for acute CHF exacerbation. Her chest x-ray was reviewed, new small effusion seen on the right side. Stable right base opacity/nodule. No evidence of pneumonia. Her viral testing came back positive for COVID-19. She states she is vaccinated x4 never has had the illness. Her heart rates are 110 to 120s. Blood pressure 130s. IV Lopressor ordered along with some IV Lasix for her elevated BNP, peripheral edema and new pleural effusion. Presentation is consistent with acute CHF. Will plan to admit the patient for further management and monitoring. Differential Diagnosis Differential Diagnoses: The differential diagnosis associated with the presentation includes CHF exacerbation, COPD exacerbation, acute pneumonia, acute bronchitis, pleural effusion, other viral respiratory illness, doubt PE given she is already anticoagulated Admission/Observation Consideration of admission/observation: Escalation of care including admission/observation considered afib w/ RVR, BNP 1800 w/ new pleural effusion Consult Healthcare Provider Management of the patient was discussed with: Hospitalist Lab Data [facility] Lab Attestation statement: I reviewed the patient's lab results. No leukocytosis, stable anemia, negative troponin BNP 1800, was 1400 last month 07/03/23 11:21 07/03/23 11:21 Labs: Lab Results 07/03/23 Range/Units 11:21 WBC 8.8 (4.8-10.8) X10*3/uL RBC 3.76 L (4.20-5.50) X10*6/uL Hgb 10.0 L (12.0-16.0) g/dl Hct 31.8 L (37.0-47.0) % MCV 84.6 (80.0-98.0) fL MCH 26.6 L (27.0-33.0) pg MCHC 31.4 (31.0-35.0) g/dl RDW 17.3 H (11.0-16.0) % Plt Count 170 D (160-400) X10*3/uL MPV 10.5 (9.4-12.3) fL Immature Gran % (Auto) 0.6 H (0.0-0.4) % Neut % (Auto) 89.3 H (45-73) % Lymph % (Auto) 4.5 L (20-40) % [place] % (Auto) 5.3 (2-11) % Eos % (Auto) 0.0 (0-4) % Baso % (Auto) 0.3 (0-2) % Lymph # (Auto) 0.4 L (1.2-4.9) X10*3/uL [place] # (Auto) 0.5 (0.1-1.2) X10*3/uL Eos # (Auto) 0.0 (0.0-0.4) X10*3/uL Baso # (Auto) 0.0 (0.0-0.2) X10*3/uL Abs Immat Gran (auto) 0.05 H (0.00-0.03) X10*3/uL Absolute Neuts (auto) 7.9 (2.0-8.3) x10*3/uL Absolute Nucleated RBC 0.000 (0.0-0.012) X10*3/uL Nucleated RBC % (auto) 0.0 (0.0-0.2) /100WBC Sodium 140 (135-145) mmol/L Potassium 4.6 (3.3-5.1) mmol/L Chloride 109 H (96-108) mmol/L Carbon Dioxide 22 (22-29) mmol/L Anion Gap 14 (12-20) BUN 18 H (9-16) mg/dL Creatinine 1.19 (0.5-1.4) mg/dL Estim Creat Clear Calc TNP Estimated GFR 45 Random Glucose 96 (60-115) mg/dL Calcium 8.9 (8.4-10.2) mg/dL Magnesium 1.6 (1.6-2.6) mg/dL Total Bilirubin 0.8 (0.0-1.0) mg/dL Direct Bilirubin 0.4 (0.0-0.5) mg/dL AST 19 (5-31) U/L ALT 16 (0-31) U/L Alkaline Phosphatase 151 H (39-117) U/L Troponin I High Sens 7.6 D (<3.5-17.0) ng/L B-Natriuretic Peptide 1840 H (<100) pg/mL Total Protein 6.1 L (6.5-8.0) g/dL Albumin 3.1 L (3.5-5.0) g/dL Procalcitonin 0.06 ng/mL Influenza Type A (PCR) NEGATIVE (Negative) Influenza Type B (PCR) NEGATIVE (Negative) RSV RNA Qual (PCR) NEGATIVE (Negative) SARS-CoV-2 RNA (RT-PCR) POSITIVE A (Negative) Independent Interpretation I performed an independent interpretation of an: EKG and Plain X-Ray Interpretation: EKG with rapid AFib, heart rate 108 beats per minute, T-wave inversions in lead I,II, V5, V6 CXR with right base mass - similar to CXR in may and CT scan in February. Small effusion on the right side noted. Radiology Impression Discussion of test interpretation with radiology: I have reviewed the radiologist's reading. Radiologist Impression: EXAMINATION: XR CHEST 2 VIEW CLINICAL INFORMATION: Productive cough COMPARISON: 05/27/2023 TECHNIQUE: PA and lateral views of the chest obtained. FINDINGS: There is a moderate size right pleural effusion. Right base infiltrate or atelectasis is present. The left lung is clear. The cardiomediastinal silhouette is stable noting mild cardiomegaly. The central and upper lung zone pulmonary vessels are somewhat more prominent than on 05/27/2023. XR/XR chest 2V IMPRESSION: 1. Moderate right pleural effusion. 2. Right base infiltrate or atelectasis. 3. Mild ulnar vascular congestion and redistribution. Independent Historian Clinical information obtained from an independent historian. History obtained from or confirmed by: EMS External Record Review External record reviewed: Inpatient record, Outpatient record, Prior outpatient labs and Prior outpatient radiology Prescription Management I considered prescription management with: Antiviral (too many interactions w/ cardiac meds) and Other (lasix, lopressor) Chronic Conditions Patient?s care impacted by: Hypertension and Other (afib, CHF) Critical Care Time Critical Care Time Critical Care Time: Yes Total Critical Care Time: 39 Attestation: I have personally provided critical care time exclusive of time spent on separately billable procedures. Time includes review of lab data, radiology results, discussion with consultants, and monitoring for potential decompensation. Intervention performed as documented. Discharge Plan Discharge Clinical Impression: COVID-19, Acute exacerbation of CHF (congestive heart failure), Atrial fibrillation with RVR, Pleural effusion Patient Disposition: Admitted As Inpatient
--- NOTE | 2023-07-03 10:35 | ECG_ITS ---
Test Reason : SOB Blood Pressure : / mmHG Vent. Rate : 108 BPM Atrial Rate : 000 BPM P-R Int : 000 ms QRS Dur : 108 ms QT Int : 388 ms P-R-T Axes : 000 025 184 degrees QTc Int : 519 ms Atrial fibrillation with rapid ventricular response Incomplete left bundle branch block Cannot rule out Anterior infarct , age undetermined ST & T wave abnormality, consider inferolateral ischemia Abnormal ECG When compared with ECG of 07-JUN-2023 09:05, Vent. rate has increased BY 40 BPM T wave inversion more evident in Inferior leads QT has lengthened Referred By: Christa Camarillo Electronically Signed By:MORALES HOLT
[2023-07-03 11:31] LABS: MANUAL DIFF FLAG NO
[2023-07-03 11:35] LABS: Basophils Percent Auto 0.3 % (0-2); Hematocrit 31.8 % (37.0-47.0); Imm Gran Abs Auto 0.05 X10*3/uL (0.00-0.03); Imm Gran Pct Auto 0.6 % (0.0-0.4); Lymphocytes Absolute Auto 0.4 X10*3/uL (1.2-4.9); Lymphocytes Percent Auto 4.5 % (20-40); Mean Corpuscular HGB Conc 31.4 g/dl (31.0-35.0); Mean Corpuscular Hemoglobin 26.6 pg (27.0-33.0); Mean Corpuscular Volume 84.6 fL (80.0-98.0); Mean Platelet Volume 10.5 fL (9.4-12.3); Monocytes Absolute Auto 0.5 X10*3/uL (0.1-1.2); Monocytes Percent Auto 5.3 % (2-11); Neutrophils Absolute Auto 7.9 x10*3/uL (2.0-8.3); Neutrophils Percent Auto 89.3 % (45-73); Platelet Count 170 X10*3/uL (160-400); Red Blood Count 3.76 X10*6/uL (4.20-5.50); Red Cell Distribution Width 17.3 % (11.0-16.0); White Blood Count 8.8 X10*3/uL (4.8-10.8)
[2023-07-03 11:41] LABS: Appearance Urine Turbid; Color Urine Yellow; Glucose Urine UA Negative (Negative); Leukocyte Esterase Urine Large (3+) (Negative); Nitrite Urine Negative (Negative); PH 5.5 (5.0-9.0); UMIC TRIGGER UACC YES; Urine Blood Large (3+) (Negative); Urine Ketones Negative (Negative); Urine Protein 300 (3+) mg/dL (Neg-Trace)
[2023-07-03 11:58] LABS: B Type Natriuretic Peptide 1840 pg/mL (<100)
[2023-07-03 12:01] LABS: Troponin-I High Sensitivity 7.6 ng/L (<3.5-17.0)
[2023-07-03 12:02] LABS: Alanine Aminotransferase 16 U/L (0-31); Albumin Level 3.1 g/dL (3.5-5.0); Alkaline Phosphatase 151 U/L (39-117); Anion Gap 14 (12-20); Aspartate Amino Transferase 19 U/L (5-31); Bilirubin Direct 0.4 mg/dL (0.0-0.5); Bilirubin Total 0.8 mg/dL (0.0-1.0); Blood Urea Nitrogen 18 mg/dL (9-16); Calcium 8.9 mg/dL (8.4-10.2); Carbon Dioxide 22 mmol/L (22-29); Chloride 109 mmol/L (96-108); Estimated Glomerular Filt Rate 45; Glucose Random 96 mg/dL (60-115); Magnesium 1.6 mg/dL (1.6-2.6); Potassium 4.6 mmol/L (3.3-5.1); Sodium 140 mmol/L (135-145); Total Protein 6.1 g/dL (6.5-8.0)
[2023-07-03 12:17] LABS: Procalcitonin 0.06 ng/mL
[2023-07-03 12:20] LABS: Influenza A PCR NEGATIVE (Negative); Influenza B PCR NEGATIVE (Negative); Resp Syncy Virus RNA Qual PCR NEGATIVE (Negative); SARS COV2 PCR INHOUSE POSITIVE (Negative)
--- NOTE | 2023-07-03 12:40 | PC.NURSE ---
pa marylou at bedside to eval- pt deny sob/dizziness at rest- reports on exertion if i were to walk i would feel dizzy after 10 ft. +BP. hr 110-130s pa aware. pa aware o2 sat occasionally drops to upper 80s but bounces immediately back to upper 90%. no distress noted. no pain. +CMS.
[2023-07-03] MEDS: Furosemide 20 MG/2 ML VIAL IVPUSH (12:57)
[2023-07-03] MEDS: Metoprolol Tartrate 5 MG/5 ML VIAL IVPUSH (12:59)
[2023-07-03 13:36] LABS: Bacteria Urine 4+ (None Seen); Hyaline Casts Urine 0-2 /LPF (0-2); RBC Urine >20 /HPF (0-2); Squamous Epithelial Cell Urine 0-2 /HPF (0-2); UACC Culture Trigger YES; WBC Urine >50 /HPF (0-5)
--- NOTE | 2023-07-03 14:58 | PHA.MEDREC ---
Pharmacy Consult ? Medication Reconciliation Pharmacy has completed the medication reconciliation. Patient came from [place] with a med list. Gege Cooper, CedricD
--- NOTE | 2023-07-03 15:26 | MHC.EDTECH ---
Addendum entered by Roxanna Ruby 07/03/23 15:27: 700 ml urine drained from mahoney catheter bag Original Note: 700 ml urine drained from bladder
--- NOTE | 2023-07-03 16:05 | P.HPHOSP_ITS ---
History of Present Illness Date of Service: 07/03/23 Attending physician on admission: Ananth Schaefer Chief Complaint: SOB Pt is a 67-year-old female with a PMH significant for?multiple sclerosis, COPD not on home oxygen, paroxysmal AFib on Eliquis CAD, PAD, CKD, hypothyroidism, HTN, urinary retention, and HFpEF who presents to the ED For evaluation of worsening SOB since last night. Patient was recently admitted to the hospital on 05/29-06/13/2023 for open olecranon fracture s/p fall, AFib with RVR, UTI, acute CHF exacerbation, and SUSAN on CKD with urinary retention and hematuria requiring Mahoney and CBI. Pt was then discharged to short term rehab, from which she presents today. Pt states she woke up last night in the middle of the night and suddenly could not breathe. Also reports dizziness and palpitations. SOB continued during the morning where she could not walk 10 feet without having to stop and catch her breath. Has had an occasional, mostly nonproductive cough. She also reports worsening lower leg edema for the past few days. Has been wearing compression stockings during the day, is not on home diuretics. Denies chest pain/pressure. No fever, chills, nausea, vomiting, diarrhea, abdominal pain. She notes [facility] where she is currently residing tested everyone yesterday and today for COVID; states tested negative both times. ? In the ED patient with temperature as high as 99.6 degrees, tachycardic up to 120s, tachypneic up to 23, and hypertensive up to 146/99. Patient satting at 94% O2 on RA at rest, though desatting to 82% with exertion. Labs were significant for stable H&H of 10.0/31.8, alk-phos of 151, BNP 1840, albumin 3.1. Procalcitonin negative at 0.06. Electrolytes WNL. CXR showed moderate right pleural effusion with right base infiltrate or atelectasis and mild pulmonary vascular congestion and redistribution. EKG demonstrated atrial fibrillation with RVR of 108 with T-wave inversions in leads I, II, V4, V5, and V6. Pt was treated with furosemide 20 mg IV metoprolol 5 mg IV. Pt will be admitted to the hospital for treatment and further evaluation of acute hypoxic respiratory failure in the setting of COVID infection and acute HFpEF exacerbation. Review of Systems 2 Review of Systems: SOB GONZALEZ Worsening LLE Palpitations Denies chest pain/pressure No fever, chills, N/V, diarrhea, abdominal pain PMF Medical History PAF (paroxysmal atrial fibrillation) Atrial fibrillation with rapid ventricular response Left renal artery stenosis Personal history of nicotine dependence Cardiomyopathy Essential hypertension Atherosclerotic cardiovascular disease Asymmetric blood pressures Acute on chronic systolic (congestive) heart failure CHF (congestive heart failure) CAD (coronary artery disease) Multiple sclerosis Pulmonary nodules COPD (chronic obstructive pulmonary disease) Peripheral arterial occlusive disease Family History Father No problems noted. Mother No problems noted. Brother Diabetes Surgical History History of endoscopy History of colonoscopy History of heart artery stent (~2018) Status post angioplasty with stent (~09/2018) S/P insertion of iliac artery stent (~02/2019) S/P cardiac cath (~12/2020) History of cholecystectomy (~02/2009) Social History Household Members: None Housing: House Are you a primary healthcare economics manager to a significant other at home: No Do you presently have visiting nurse or other home services: No Alcohol intake: never Patient Tobacco Use Status: Former Tobacco user Quit Date: 2017 Tobacco use type: Cigarette Smoked in Last 30 Days: No e-Cigarette/Vaping Use: Never Used Second Hand Smoke Exposure: No Use of substances other than those prescribed or required for medical reasons: No Advance Directives: Yes Advance Directives on File: Yes Advance Directives Date on File: 12/27/20 service: No Current occupational status: retired Cognitive needs: Yes (cane) Hearing needs: No Vision needs: Yes (reading glasses) Meds Allergies Allergy/AdvReac Type Severity Reaction Status Date / Time codeine [Codeine] AdvReac Mild vomiting Verified 07/03/23 12:33 Home Medications Medication Instructions Recorded Confirmed Last Taken Type interferon beta-1a 30 mcg/0.5 mL 30 mcg IM TU 10/03/20 07/03/23 09/13/21 History intramuscular pen kit (Avonex) paroxetine HCl 40 mg tablet 40 mg PO BEDTIME 10/03/20 07/03/23 09/12/21 History cholecalciferol (vitamin D3) 25 25 mcg PO DAILY 12/20/20 07/03/23 09/13/21 History mcg (1,000 unit) tablet (Vitamin D3) cyanocobalamin (vitamin B-12) 1,000 mcg PO DAILY 12/20/20 07/03/23 09/13/21 History 1,000 mcg tablet (Vitamin B-12) melatonin 10 mg tablet 10 mg PO BEDTIME Insomnia 01/13/23 07/03/23 Unknown History atorvastatin 80 mg tablet 80 mg PO BEDTIME 07/03/23 07/03/23 Unknown History Physical Exam 2 Vital Signs and Narrative: Vital Signs: Last Vital Signs Temp 99.6 F 07/03/23 14:16 Pulse 105 H 07/03/23 14:16 Resp 23 H 07/03/23 14:16 BP 147/97 H 07/03/23 14:16 Pulse Ox 97 07/03/23 14:16 O2 Del Method Room Air 07/03/23 14:16 BMI result Body Mass Index 22.8 General: AOx3, no acute distress Resp: CTA bilaterally CVS: Irregulary irregular rhythm, tachy GI: +BS, NT, no distention Skin: No rash Neuro: Cranial nerves II-XII grossly intact bilaterally. Motor grossly intact bilaterally Extremities: 2+ bilateral lower leg pitting edema : Mahoney in place Psych: Appropriate affect Results Labs 07/03/23 11:21 07/03/23 11:21 Labs: Laboratory Results - last 24 hr 07/03/23 11:21 MCV 84.6 MCH 26.6 L MCHC 31.4 RDW 17.3 H Plt Count 170 D MPV 10.5 Immature Gran % (Auto) 0.6 H Neut % (Auto) 89.3 H Lymph % (Auto) 4.5 L [place] % (Auto) 5.3 Eos % (Auto) 0.0 Baso % (Auto) 0.3 Lymph # (Auto) 0.4 L [place] # (Auto) 0.5 Eos # (Auto) 0.0 Baso # (Auto) 0.0 Abs Immat Gran (auto) 0.05 H Absolute Neuts (auto) 7.9 Absolute Nucleated RBC 0.000 Nucleated RBC % (auto) 0.0 Anion Gap 14 Estim Creat Clear Calc TNP Estimated GFR 45 Random Glucose 96 Calcium 8.9 Magnesium 1.6 Total Bilirubin 0.8 Direct Bilirubin 0.4 AST 19 ALT 16 Alkaline Phosphatase 151 H B-Natriuretic Peptide 1840 H Total Protein 6.1 L Albumin 3.1 L Procalcitonin 0.06 Urine Color Yellow Urine Appearance Turbid Urine pH 5.5 Ur Specific Reading 1.020 Urine Protein 300 (3+) H Urine Glucose (UA) Negative Urine Ketones Negative Urine Blood Large (3+) H Urine Nitrite Negative Ur Leukocyte Esterase Large (3+) H Urine RBC >20 H Urine WBC >50 H Ur Squamous Epith Cells 0-2 Urine Bacteria 4+ Hyaline Casts 0-2 Influenza Type A (PCR) NEGATIVE Influenza Type B (PCR) NEGATIVE RSV RNA Qual (PCR) NEGATIVE SARS-CoV-2 RNA (RT-PCR) POSITIVE A Imaging Radiologist's Impressions: Impressions Chest X-Ray 07/03/23 10:57 IMPRESSION: 1. Moderate right pleural effusion. 2. Right base infiltrate or atelectasis. 3. Mild ulnar vascular congestion and redistribution. Assessment and Plan (1) Pleural effusion: Status: Acute (2) Atrial fibrillation with RVR: Status: Acute (3) COVID-19: Status: Acute (4) CHF (congestive heart failure): Status: Acute Plan Pt is a 67-year-old female with a PMH significant for?multiple sclerosis, COPD not on home oxygen, paroxysmal AFib on Eliquis CAD, PAD, CKD, hypothyroidism, HTN, urinary retention, and HFpEF who presents to the ED For evaluation of worsening SOB since last night. Pt will be admitted to the hospital for treatment and further evaluation of acute hypoxic respiratory failure in the setting of COVID infection and acute HFpEF exacerbation. Acute hypoxic respiratory failure in the setting of COVID infection Pt desatting to 82% on RA with movement and exertion, not on home O2 States had sudden onset SOB last night Tested positive for COVID Dexamethasone 6mg IV Duonebs Monitor respiratory status Acute on chronic HFpEF exacerbation Pt with increased SOB, LLE, elevated BNP, CXR with evidence of new pleural effusion Pt not on home diuretics Furosemide 20mg IV bid Monitor lytes, I/O, mag Daily weights, low-salt diet Monitor on telemetry AFib with RVR Pt with HR as high as 120s Likely multifactorial: in the setting of COVID infection and HFpEF exacerbation Given Metoprolol 5mg IV in ED Will give an additional 25mg po metoprolol Continue home metoprolol, Eliquis Monitor HR Anemia of chronic diseaser Likely secondary to CKD 3 H&H stable, at baseline Follow CBC Urinary retention Chronic mahoney in place Continue tamsulosin, oxybutynin Hypothyroidism Continue levothyroxine CAD Continue BB, Plavix, statin Mood disorder Continue home meds Full Code Attending:?Dr. Schaefer DVT Prophylaxis: On Eliquis Pt will require a hospitalization of at least two nights for treatment of acute hypoxic respiratory failure in the setting of COVID infection and AFib with RVR. Time Spent With Patient Time: Total time managing care of this patient today ____ minutes. Quality Stroke Does the patient have a stroke diagnosis?: No VTE Prior VTE?: No VTE Risk Level:: Medical - moderate - high VTE Device Contraindication: Treatment Not Indicated VTE Drug Contraindication: N/A - Med Ordered
[2023-07-03] MEDS: Metoprolol Tartrate 25 MG TABLET PO (17:23)
[2023-07-03] MEDS: Omeprazole 20 MG CAPSULE.DR PO (19:04)
[2023-07-03] MEDS: Furosemide 20 MG TABLET PO (19:04)
[2023-07-03] MEDS: dexAMETHasone sod phosphate 4 MG/ML VIAL 6 MG IVPUSH (19:05)
--- NOTE | 2023-07-03 19:16 | PC.NURSE ---
This com writer assumed care at 1900, Pt AOx3, pt reporting SOB/N [place], denies any pain. Pt sitting in stretcher, increased effort in breathing, speaking in full sentences, lung sounds slightly diminished clear at the bases, SpO2: 93% RA, RR; 22. Pt medicated per DEC, chronic mahoney in place draining dark yellow colored urine.
[2023-07-04] MEDS: Atorvastatin Calcium 80 MG TABLET PO ×2 (00:21→22:34)
[2023-07-04] MEDS: Apixaban 5 MG TABLET PO ×3 (00:21→22:34)
[2023-07-04] MEDS: Tamsulosin HCL 0.4 MG CAPSULE PO ×2 (00:21→22:34)
[2023-07-04] MEDS: PARoxetine HCL 40 MG TABLET PO ×2 (00:21→22:34)
[2023-07-04] MEDS: 0.9 % Sodium Chloride Flush 3 ML SYRINGE IVFLUSH ×3 (00:21→22:35)
[2023-07-04] MEDS: oxyBUTYnin chloride 5 MG TABLET PO ×3 (00:21→22:34)
[2023-07-04] MEDS: Melatonin 3 MG TABLET 9 MG PO ×2 (00:21→22:34)
[2023-07-04 03:37] VITALS: BP 105/76; PULSE 100; RESP 18; TEMP 36.9; O2SAT 96
[2023-07-04] MEDS: Levothyroxine Sodium 50 MCG TABLET PO (05:30)
[2023-07-04] MEDS: Omeprazole 20 MG CAPSULE.DR PO (05:30)
[2023-07-04 06:42] LABS: Hematocrit 30.6 % (37.0-47.0); Hemoglobin 9.8 g/dl (12.0-16.0); Mean Corpuscular Hemoglobin 26.3 pg (27.0-33.0); Platelet Count 181 X10*3/uL (160-400); Red Blood Count 3.73 X10*6/uL (4.20-5.50); Red Cell Distribution Width 17.2 % (11.0-16.0); White Blood Count 8.5 X10*3/uL (4.8-10.8)
[2023-07-04 06:59] LABS: Anion Gap 16 (12-20); Blood Urea Nitrogen 20 mg/dL (9-16); Calcium 8.8 mg/dL (8.4-10.2); Carbon Dioxide 19 mmol/L (22-29); Chloride 106 mmol/L (96-108); Creatinine Clr Calc Pharmacy 40.4; Estimated Glomerular Filt Rate 43; Glucose Random 129 mg/dL (60-115); Magnesium 1.8 mg/dL (1.6-2.6); Potassium 3.7 mmol/L (3.3-5.1); Sodium 137 mmol/L (135-145)
[2023-07-04 07:57] VITALS: BP 128/86; PULSE 98; RESP 17; TEMP 37.2; O2SAT 95
[2023-07-04] MEDS: Cyanocobalamin (Vitamin B-12) 1,000 MCG TABLET 1000 MCG PO (08:42)
[2023-07-04] MEDS: Amiodarone HCL 200 MG TABLET PO (08:42)
[2023-07-04] MEDS: Metoprolol Succinate ER 50 MG TAB.ER.24H PO (08:42)
[2023-07-04] MEDS: Cholecalciferol (Vitamin D3) 25 MCG TABLET PO (08:42)
[2023-07-04] MEDS: dexAMETHasone sod phosphate 4 MG/ML VIAL 6 MG IVPUSH (08:42)
[2023-07-04] MEDS: Clopidogrel Bisulfate 75 MG TABLET PO (08:42)
--- NOTE | 2023-07-04 09:23 | MHC.CM.PN ---
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 IMM DELIVERED, COPY WILL BE EMAILED TO HER AT [facility] DCP TBD PENDING PT EVAL GOAL IS STR AT A DIFFERENT SNF BLS TRANSPORT Original Note: PT WAS DISCHARGED TO [facility] FOR STR ON 06/13/23 PER LIAISON, PT WAS STILL WITH THEM [facility], HOWEVER SHE IS NOT A BED HOLD CM REQUESTED THEY FOLLOW IN CASE PT REQUIRES CONTINUED REHAB AT [facility]
[2023-07-04 11:54] VITALS: BP 127/81; PULSE 102; RESP 17; TEMP 36.8; O2SAT 95
[2023-07-04 14:00] VITALS: BMI 22.8
--- NOTE | 2023-07-04 14:07 | MHC.CLN ---
RE: CONSULT PT WITH INCREASED NUTRITION RISK R/T PRESSURE INJURY DIET RX: CARDIAC-APPROPRIATE RECOMMEND ADDING ENSURE MAX BID TO PROMOTE WOUND HEALING SUPP TO PROVIDE 300KCALS, 60G PROTEIN MONITOR PO INTAKE CLOSELY SEE ALSO FULL CLINICAL NUTRITION ASSESSMENT
[2023-07-04 15:43] VITALS: BP 135/76; PULSE 83; RESP 14; TEMP 36.8; O2SAT 97
--- NOTE | 2023-07-04 17:28 | P.PNIM_ITS ---
Subjective Subjective Date of Service: 07/04/23 Interval History: Complaining of shortness of breath with exertion, intermittent dry cough, denies urinary symptoms of urgency frequency, Mahoney catheter in place with clear urine denies PND, no orthopnea no leg edema,-2 L, tolerating diet no nausea, no vomiting no abdominal pain, no diarrhea, no acute issues overnight. Review of Systems All other system reviewed and negative Physical Exam 2 Vital Signs: Vital Signs: Last Vital Signs Temp 98.3 F 07/04/23 15:43 Pulse 83 07/04/23 15:43 Resp 14 07/04/23 15:43 BP 135/76 07/04/23 15:43 Pulse Ox 97 07/04/23 15:43 O2 Del Method Room Air 07/04/23 15:43 BMI result Body Mass Index 22.8 Const: Other: General: Awake alert x3 in no acute distress Neck no JVD Resp: Diminished rt. bases, no wheeze, no crackles, talking in full sentences CVS: S1,S2, iregular iregular GI: +BS, NT, no distention Skin: No rash ext: No edema Neuro: motor grossly intact Psych: appropriate affect Objective Data Active Medications Acetaminophen (Acetaminophen 325 Mg Tablet) 650 mg PO Q6H PRN PRN Reason: Pain, Mild (Pain Scale 1-3) Albuterol Sulfate (Albuterol Sulfate 90 Mcg 8 Gm Inhaler) 2 puff INHALE Q4H PRN PRN Reason: shortness of breath or wheezing Amiodarone HCl (Amiodarone Hcl 200 Mg Tablet) 200 mg PO DAILY [facility] Last Admin: 07/04/23 08:42 Dose: 200 mg Documented By: ORLY Apixaban (Apixaban 5 Mg Tablet) 5 mg PO BID [facility] Last Admin: 07/04/23 08:42 Dose: 5 mg Documented By: ORLY Atorvastatin Calcium (Atorvastatin Calcium 80 Mg Tablet) 80 mg PO BEDTIME [facility] Last Admin: 07/04/23 00:21 Dose: 80 mg Documented By: RAO Clopidogrel Bisulfate (Clopidogrel Bisulfate 75 Mg Tablet) 75 mg PO DAILY [facility] Last Admin: 07/04/23 08:42 Dose: 75 mg Documented By: ORLY Cyanocobalamin (Cyanocobalamin (Vitamin B-12) 1,000 Mcg Tablet) 1,000 mcg PO DAILY [facility] Last Admin: 07/04/23 08:42 Dose: 1,000 mcg Documented By: ORLY Dexamethasone Sodium Phosphate (Dexamethasone Sod Phosphate 4 Mg/Ml Vial) 6 mg IVPUSH DAILY [facility] Last Admin: 07/04/23 08:42 Dose: 6 mg Documented By: ORLY Docusate Sodium (Docusate Sodium 100 Mg Capsule) 100 mg PO DAILY PRN PRN Reason: Constipation Fluticasone/Vilanterol (Fluticasone/Vilanterol 100/25 Blst.W.Dev) 1 puff INHALE RBID [facility] Last Admin: 07/04/23 08:17 Dose: Not Given Documented By: FELIPE Non-Admin Reason: pharmacy called x2 Levothyroxine Sodium (Levothyroxine Sodium 50 Mcg Tablet) 50 mcg PO DAILY@0600 [facility] Last Admin: 07/04/23 05:30 Dose: 50 mcg Documented By: RAO Melatonin (Melatonin 3 Mg Tablet) 9 mg PO BEDTIME [facility] Last Admin: 07/04/23 00:21 Dose: 9 mg Documented By: RAO Metoprolol Succinate (Metoprolol Succinate Er 50 Mg Tab.Er.24h) 50 mg PO DAILY [facility]; Protocol Last Admin: 07/04/23 08:42 Dose: 50 mg Documented By: ORLY Omeprazole (Omeprazole 20 Mg Capsule.Dr) 20 mg PO DAILY@0630 [facility] Last Admin: 07/04/23 05:30 Dose: 20 mg Documented By: RAO Ondansetron HCl (Ondansetron Hcl 4 Mg/2 Ml Vial) 4 mg IVPUSH Q8H PRN PRN Reason: Nausea and Vomiting Oxybutynin Chloride (Oxybutynin Chloride 5 Mg Tablet) 5 mg PO BID [facility] Last Admin: 07/04/23 08:42 Dose: 5 mg Documented By: ORLY Paroxetine HCl (Paroxetine Hcl 40 Mg Tablet) 40 mg PO BEDTIME [facility] Last Admin: 07/04/23 00:21 Dose: 40 mg Documented By: RAO Sodium Chloride (0.9 % Sodium Chloride Flush 3 Ml Syringe) 3 ml IVFLUSH QSHIFT [facility] Last Admin: 07/04/23 16:28 Dose: Not Given Documented By: ORLY Non-Admin Reason: Med already given when inserting new IV Tamsulosin HCl (Tamsulosin Hcl 0.4 Mg Capsule) 0.4 mg PO BEDTIME [facility] Last Admin: 07/04/23 00:21 Dose: 0.4 mg Documented By: RAO Vitamin D (Cholecalciferol (Vitamin D3) 25 Mcg Tablet) 25 mcg PO DAILY [facility] Last Admin: 07/04/23 08:42 Dose: 25 mcg Documented By: ORLY Labs 07/04/23 06:10 07/04/23 06:10 Labs: Laboratory Results - last 24 hr 07/04/23 06:10 MCV 82.0 MCH 26.3 L MCHC 32.0 RDW 17.2 H Plt Count 181 MPV 11.0 Absolute Nucleated RBC 0.000 Nucleated RBC % (auto) 0.0 Anion Gap 16 Estim Creat Clear Calc 40.4 Estimated GFR 43 Random Glucose 129 H Calcium 8.8 Magnesium 1.8 Microbiology Microbiology Results: Microbiology 07/03/23 Unknown Urine Culture - Final Urine Catheterized - Mahoney Catheter Assessment and Plan (1) Pleural effusion: Status: Acute (2) Atrial fibrillation with RVR: Status: Acute (3) COVID-19: Status: Acute Plan Pt is a 67-year-old female with a PMH significant for?multiple sclerosis, COPD not on home oxygen, paroxysmal AFib on Eliquis CAD, PAD, CKD, hypothyroidism, HTN, urinary retention, and HFpEF who presents to the ED For evaluation of worsening SOB since last night. Pt will be admitted to the hospital for treatment and further evaluation of acute hypoxic respiratory failure in the setting of COVID infection and acute HFpEF exacerbation. Acute hypoxic respiratory failure in the setting of COVID infection and CHF exacerbation Oxygenation improved currently on room air finger oximetry 94 95%, recommend out of bed to chair and ambulation On Dexamethasone 6mg IV, will transition to by mouth Continue as needed albuterol,Monitor respiratory status. Acute on chronic HFrEF exacerbation On admission noted to have SOB, LLE, elevated BNP, CXR with evidence of new pleural effusion, treated with IV Lasix 20 mg b.i.d. at present appears euvolemic , creatinine trending up, will DC IV diuretics Recent echo 05/28/23 showed EF 20-25%, severe global hypokinesis, indeterminate diastolic function Elevated BNP likely due to COVID infection , follow clinical course AFib with RVR Pt with HR as high as 120s in the ED, Likely multifactorial: in the setting of COVID infection and HFpEF exacerbation Heart rate improved, Continue home metoprolol, amiodarone and Eliquis Anemia of chronic diseaser Likely secondary to CKD 3,H&H stable, at baseline Follow CBC Urinary retention Chronic mahoney in place, Continue tamsulosin, oxybutynin Hypothyroidism Continue levothyroxine CAD Continue BB, Plavix, statin Mood disorder Continue home meds Full Code DVT Prophylaxis: On Eliquis Pt will require a hospitalization for treatment of acute hypoxic respiratory failure in the setting of COVID infection and AFib with RVR. Time Spent With Patient Time: Total time managing care of this patient today ____ minutes. Quality Stroke Does the patient have a stroke diagnosis?: No VTE Prior VTE?: No VTE Risk Level:: Medical - moderate - high VTE Device Contraindication: Treatment Not Indicated VTE Drug Contraindication: N/A - Med Ordered
[2023-07-04 19:37] VITALS: BP 119/80; PULSE 95; RESP 14; TEMP 36.7; O2SAT 97
[2023-07-04 20:03] VITALS: PULSE 84; RESP 16; O2SAT 92
[2023-07-04] MEDS: Fluticasone/Vilanterol 100/25 BLST.W.DEV 1 PUFF INHALE (20:03)
[2023-07-05] VITALS (9 sets, daily range): BP systolic 103–139; BP diastolic 65–79; PULSE 83–96; RESP 16–20; TEMP 36–37; O2SAT 96–98
[2023-07-05] MEDS: Omeprazole 20 MG CAPSULE.DR PO (06:12)
[2023-07-05] MEDS: Levothyroxine Sodium 50 MCG TABLET PO (06:12)
[2023-07-05 06:54] LABS: Anion Gap 11 (12-20); Blood Urea Nitrogen 26 mg/dL (9-16); Calcium 8.9 mg/dL (8.4-10.2); Carbon Dioxide 23 mmol/L (22-29); Chloride 110 mmol/L (96-108); Creatinine Clr Calc Pharmacy 42.8; Estimated Glomerular Filt Rate 46; Glucose Random 109 mg/dL (60-115); Potassium 3.6 mmol/L (3.3-5.1); Sodium 140 mmol/L (135-145)
[2023-07-05 06:57] LABS: B Type Natriuretic Peptide 1402 pg/mL (<100)
[2023-07-05] MEDS: Fluticasone/Vilanterol 100/25 BLST.W.DEV 1 PUFF INHALE ×2 (08:24→19:57)
[2023-07-05] MEDS: Cholecalciferol (Vitamin D3) 25 MCG TABLET PO (10:41)
[2023-07-05] MEDS: Cyanocobalamin (Vitamin B-12) 1,000 MCG TABLET 1000 MCG PO (10:41)
[2023-07-05] MEDS: Apixaban 5 MG TABLET PO ×2 (10:41→21:45)
[2023-07-05] MEDS: oxyBUTYnin chloride 5 MG TABLET PO ×2 (10:41→21:45)
[2023-07-05] MEDS: Metoprolol Succinate ER 50 MG TAB.ER.24H PO (10:41)
[2023-07-05] MEDS: Furosemide 20 MG TABLET PO (10:41)
[2023-07-05] MEDS: 0.9 % Sodium Chloride Flush 3 ML SYRINGE IVFLUSH ×3 (10:41→21:46)
[2023-07-05] MEDS: dexAMETHasone 6 MG TABLET PO (10:41)
[2023-07-05] MEDS: Clopidogrel Bisulfate 75 MG TABLET PO (10:41)
[2023-07-05] MEDS: Amiodarone HCL 200 MG TABLET PO (10:42)
--- NOTE | 2023-07-05 12:50 | P.PNIM_ITS ---
Subjective Subjective Date of Service: 07/05/23 Interval History: Had nausea last night now resolved, chest waking up denies PND, no orthopnea no shortness of breath at rest, complained of mild intermittent dry cough, no fevers no chills have been out of bed to chair oxygenation remains stable on room air. Review of Systems All other system reviewed and negative Physical Exam 2 Vital Signs: Vital Signs: Last Vital Signs Temp 97.9 F 07/05/23 11:12 Pulse 83 07/05/23 11:12 Resp 20 07/05/23 11:12 BP 107/66 07/05/23 11:12 Pulse Ox 98 07/05/23 11:12 O2 Del Method Room Air 07/05/23 11:12 BMI result Body Mass Index 22.8 Const: Other: General: Awake alert x3 in no acute distress Neck no JVD Resp: Diminished rt. bases, no wheeze, no crackles, talking in full sentences CVS: S1,S2, iregular iregular GI: +BS, NT, no distention Skin: No rash ext: No edema Neuro: motor grossly intact Psych: appropriate affect Objective Data Active Medications Acetaminophen (Acetaminophen 325 Mg Tablet) 650 mg PO Q6H PRN PRN Reason: Pain, Mild (Pain Scale 1-3) Albuterol Sulfate (Albuterol Sulfate 90 Mcg 8 Gm Inhaler) 2 puff INHALE Q4H PRN PRN Reason: shortness of breath or wheezing Amiodarone HCl (Amiodarone Hcl 200 Mg Tablet) 200 mg PO DAILY [facility] Last Admin: 07/05/23 10:42 Dose: 200 mg Documented By: KAYLA Apixaban (Apixaban 5 Mg Tablet) 5 mg PO BID [facility] Last Admin: 07/05/23 10:41 Dose: 5 mg Documented By: KAYLA Atorvastatin Calcium (Atorvastatin Calcium 80 Mg Tablet) 80 mg PO BEDTIME [facility] Last Admin: 07/04/23 22:34 Dose: 80 mg Documented By: HENRIETTA Clopidogrel Bisulfate (Clopidogrel Bisulfate 75 Mg Tablet) 75 mg PO DAILY [facility] Last Admin: 07/05/23 10:41 Dose: 75 mg Documented By: KAYLA Cyanocobalamin (Cyanocobalamin (Vitamin B-12) 1,000 Mcg Tablet) 1,000 mcg PO DAILY [facility] Last Admin: 07/05/23 10:41 Dose: 1,000 mcg Documented By: KAYLA Dexamethasone (Dexamethasone 6 Mg Tablet) 6 mg PO DAILY [facility] Last Admin: 07/05/23 10:41 Dose: 6 mg Documented By: KAYLA Docusate Sodium (Docusate Sodium 100 Mg Capsule) 100 mg PO DAILY PRN PRN Reason: Constipation Fluticasone/Vilanterol (Fluticasone/Vilanterol 100/25 Blst.W.Dev) 1 puff INHALE RBID [facility] Last Admin: 07/05/23 08:24 Dose: 1 puff Documented By: FELIPE Furosemide (Furosemide 20 Mg Tablet) 20 mg PO DAILY [facility]; Protocol Last Admin: 07/05/23 10:41 Dose: 20 mg Documented By: KAYLA Levothyroxine Sodium (Levothyroxine Sodium 50 Mcg Tablet) 50 mcg PO DAILY@0600 [facility] Last Admin: 07/05/23 06:12 Dose: 50 mcg Documented By: HENRIETTA Melatonin (Melatonin 3 Mg Tablet) 9 mg PO BEDTIME [facility] Last Admin: 07/04/23 22:34 Dose: 9 mg Documented By: HENRIETTA Metoprolol Succinate (Metoprolol Succinate Er 50 Mg Tab.Er.24h) 50 mg PO DAILY [facility]; Protocol Last Admin: 07/05/23 10:41 Dose: 50 mg Documented By: KAYLA Omeprazole (Omeprazole 20 Mg Capsule.Dr) 20 mg PO DAILY@0630 [facility] Last Admin: 07/05/23 06:12 Dose: 20 mg Documented By: HENRIETTA Ondansetron HCl (Ondansetron Hcl 4 Mg/2 Ml Vial) 4 mg IVPUSH Q8H PRN PRN Reason: Nausea and Vomiting Oxybutynin Chloride (Oxybutynin Chloride 5 Mg Tablet) 5 mg PO BID [facility] Last Admin: 07/05/23 10:41 Dose: 5 mg Documented By: KAYLA Paroxetine HCl (Paroxetine Hcl 40 Mg Tablet) 40 mg PO BEDTIME [facility] Last Admin: 07/04/23 22:34 Dose: 40 mg Documented By: HENRIETTA Sodium Chloride (0.9 % Sodium Chloride Flush 3 Ml Syringe) 3 ml IVFLUSH QSHIFT [facility] Last Admin: 07/05/23 10:41 Dose: 3 ml Documented By: KAYLA Tamsulosin HCl (Tamsulosin Hcl 0.4 Mg Capsule) 0.4 mg PO BEDTIME [facility] Last Admin: 07/04/23 22:34 Dose: 0.4 mg Documented By: HENRIETTA Vitamin D (Cholecalciferol (Vitamin D3) 25 Mcg Tablet) 25 mcg PO DAILY [facility] Last Admin: 07/05/23 10:41 Dose: 25 mcg Documented By: KAYLA Labs 07/04/23 06:10 07/05/23 06:14 Labs: Laboratory Results - last 24 hr 07/05/23 06:14 Anion Gap 11 L Estim Creat Clear Calc 42.8 Estimated GFR 46 Random Glucose 109 Calcium 8.9 B-Natriuretic Peptide 1402 H Microbiology Microbiology Results: Microbiology 07/03/23 Unknown Urine Culture - Final Urine Catheterized - Mahoney Catheter Assessment and Plan (1) Pleural effusion: Status: Acute (2) Atrial fibrillation with RVR: Status: Acute (3) COVID-19: Status: Acute Plan Pt is a 67-year-old female with a PMH significant for?multiple sclerosis, COPD not on home oxygen, paroxysmal AFib on Eliquis CAD, PAD, CKD, hypothyroidism, HTN, urinary retention, and HFpEF who presents to the ED For evaluation of worsening SOB since last night. Pt will be admitted to the hospital for treatment and further evaluation of acute hypoxic respiratory failure in the setting of COVID infection and acute HFpEF exacerbation. Acute hypoxic respiratory failure in the setting of COVID infection and CHF exacerbation Oxygenation improved currently on room air finger oximetry 98%, recommend out of bed to chair and ambulation On Dexamethasone 6mg by mouth day 01/03 Continue as needed albuterol,Monitor respiratory status. Acute on chronic HFrEF exacerbation On admission noted to have SOB, LLE, elevated BNP, CXR with evidence of new pleural effusion, treated with IV Lasix 20 mg b.i.d. at present appears euvolemic , Recent echo 05/28/23 showed EF 20-25%, severe global hypokinesis, indeterminate diastolic function Will add Lasix 20 mg daily BNP improved from 1840 to 1402, follow clinical course AFib with RVR Pt with HR as high as 120s in the ED, Likely multifactorial: in the setting of COVID infection and HFpEF exacerbation Heart rate now improved, Continue home metoprolol, amiodarone and Eliquis Anemia of chronic diseaser Likely secondary to CKD 3,H&H stable, at baseline Follow CBC Urinary retention Chronic mahoney in place, Continue tamsulosin, oxybutynin Hypothyroidism Continue levothyroxine CAD Continue BB, Plavix, statin Mood disorder Continue home meds Full Code DVT Prophylaxis: On Eliquis Disposition patient wishes to be discharged to a different facility will obtain a PT eval social service looking for bed Pt will require continued hospitalization for treatment of hypoxia due to COVID infection, acute Chf exacerbation and AFib with RVR. Time Spent With Patient Time: Total time managing care of this patient today ____ minutes. Quality Stroke Does the patient have a stroke diagnosis?: No VTE Prior VTE?: No VTE Risk Level:: Medical - moderate - high VTE Device Contraindication: Treatment Not Indicated VTE Drug Contraindication: N/A - Med Ordered
--- NOTE | 2023-07-05 14:34 | MHC.CM.PN ---
CM called and left a message for pts sister/HCP Aliya to discuss STR options, awaiting return call.
[2023-07-05] MEDS: Atorvastatin Calcium 80 MG TABLET PO (21:45)
[2023-07-05] MEDS: Tamsulosin HCL 0.4 MG CAPSULE PO (21:45)
[2023-07-05] MEDS: Melatonin 3 MG TABLET 9 MG PO (21:45)
[2023-07-05] MEDS: PARoxetine HCL 40 MG TABLET PO (21:46)
[2023-07-06 03:44] VITALS: BP 128/70; PULSE 86; RESP 18; TEMP 36; O2SAT 96
[2023-07-06] MEDS: Levothyroxine Sodium 50 MCG TABLET PO (05:10)
[2023-07-06] MEDS: Omeprazole 20 MG CAPSULE.DR PO (05:11)
[2023-07-06 07:30] LABS: Anion Gap 11 (12-20); Blood Urea Nitrogen 26 mg/dL (9-16); Calcium 8.9 mg/dL (8.4-10.2); Carbon Dioxide 23 mmol/L (22-29); Chloride 110 mmol/L (96-108); Creatinine Clr Calc Pharmacy 42.1; Estimated Glomerular Filt Rate 45; Glucose Random 109 mg/dL (60-115); Potassium 3.7 mmol/L (3.3-5.1); Sodium 140 mmol/L (135-145)
[2023-07-06 07:58] VITALS: BP 130/75; PULSE 91; RESP 20; TEMP 36.6; O2SAT 99
[2023-07-06] MEDS: dexAMETHasone 6 MG TABLET PO (09:23)
[2023-07-06] MEDS: Metoprolol Succinate ER 50 MG TAB.ER.24H PO (09:23)
[2023-07-06] MEDS: Cyanocobalamin (Vitamin B-12) 1,000 MCG TABLET 1000 MCG PO (09:23)
[2023-07-06] MEDS: Cholecalciferol (Vitamin D3) 25 MCG TABLET PO (09:23)
[2023-07-06] MEDS: oxyBUTYnin chloride 5 MG TABLET PO (09:23)
[2023-07-06] MEDS: Clopidogrel Bisulfate 75 MG TABLET PO (09:23)
[2023-07-06] MEDS: Furosemide 40 MG TABLET PO (09:23)
[2023-07-06] MEDS: Amiodarone HCL 200 MG TABLET PO (09:24)
[2023-07-06] MEDS: Apixaban 5 MG TABLET PO ×2 (09:24→21:12)
[2023-07-06] MEDS: 0.9 % Sodium Chloride Flush 3 ML SYRINGE IVFLUSH ×2 (09:24→16:22)
--- NOTE | 2023-07-06 10:28 | MHC.CM.PN ---
Spoke w/Aliya, she is in agreement to the following Centers ([facility] star Centers only at this time-wants to exhaust this search first): [facility], [facility], [facility], [facility], [facility] [place], [place] in . Will refer out. Explained to her that if a bed offer is received today, D/C can happen as early as today. Pending Facility responses. CM to follow.
--- NOTE | 2023-07-06 10:38 | MHC.CM.PN ---
Called Aliya back w/updated list of [facility], and obtained permission for referrals: [facility], [facility], [facility], [facility], [facility] and [facility]. Permission granted and referrals made. Pending responses.
[2023-07-06 11:25] VITALS: BP 152/82; PULSE 82; RESP 20; TEMP 36.2; O2SAT 98
[2023-07-06] MEDS: guaiFENesin DM 100/10/5 ML 5 ML SYRUP 10 ML PO ×2 (13:24→21:12)
--- NOTE | 2023-07-06 13:35 | P.PNIM_ITS ---
Subjective Subjective Date of Service: 07/06/23 Interval History: Complaining of cough productive of yellow phlegm, ambulated in room, oxygenation remained greater than 90 , no chest pain, no palpitation no worsening shortness of breath tolerating diet with no nausea no vomiting no abdominal pain no other acute issues overnight. Review of Systems All other system reviewed and negative. Physical Exam 2 Vital Signs: Vital Signs: Last Vital Signs Temp 97.1 F 07/06/23 11:25 Pulse 82 07/06/23 11:25 Resp 20 07/06/23 11:25 BP 152/82 H 07/06/23 11:25 Pulse Ox 98 07/06/23 11:25 O2 Del Method Room Air 07/06/23 11:25 BMI result Body Mass Index 22.8 Const: Other: General: Awake alert x3 in no acute distress Neck no JVD Resp: Diminished rt. bases, no wheeze, no crackles, talking in full sentences CVS: S1,S2, iregular iregular GI: +BS, NT, no distention Skin: No rash ext: No edema Neuro: motor grossly intact Psych: appropriate affect Objective Data Active Medications Acetaminophen (Acetaminophen 325 Mg Tablet) 650 mg PO Q6H PRN PRN Reason: Pain, Mild (Pain Scale 1-3) Albuterol Sulfate (Albuterol Sulfate 90 Mcg 8 Gm Inhaler) 2 puff INHALE Q4H PRN PRN Reason: shortness of breath or wheezing Amiodarone HCl (Amiodarone Hcl 200 Mg Tablet) 200 mg PO DAILY [facility] Last Admin: 07/06/23 09:24 Dose: 200 mg Documented By: KAYLA Apixaban (Apixaban 5 Mg Tablet) 5 mg PO BID [facility] Last Admin: 07/06/23 09:24 Dose: 5 mg Documented By: KAYLA Atorvastatin Calcium (Atorvastatin Calcium 80 Mg Tablet) 80 mg PO BEDTIME [facility] Last Admin: 07/05/23 21:45 Dose: 80 mg Documented By: HENRIETTA Clopidogrel Bisulfate (Clopidogrel Bisulfate 75 Mg Tablet) 75 mg PO DAILY [facility] Last Admin: 07/06/23 09:23 Dose: 75 mg Documented By: KAYLA Cyanocobalamin (Cyanocobalamin (Vitamin B-12) 1,000 Mcg Tablet) 1,000 mcg PO DAILY [facility] Last Admin: 07/06/23 09:23 Dose: 1,000 mcg Documented By: KAYLA Dexamethasone (Dexamethasone 6 Mg Tablet) 6 mg PO DAILY [facility] Last Admin: 07/06/23 09:23 Dose: 6 mg Documented By: KAYLA Docusate Sodium (Docusate Sodium 100 Mg Capsule) 100 mg PO DAILY PRN PRN Reason: Constipation Fluticasone/Vilanterol (Fluticasone/Vilanterol 100/25 Blst.W.Dev) 1 puff INHALE RBID [facility] Last Admin: 07/06/23 08:55 Dose: Not Given Documented By: NILES Non-Admin Reason: Patient Asleep Furosemide (Furosemide 40 Mg Tablet) 40 mg PO DAILY [facility]; Protocol Last Admin: 07/06/23 09:23 Dose: 40 mg Documented By: KAYLA Guaifenesin/Dextromethorphan (Guaifenesin Dm 100/10/5 Ml 5 Ml Syrup) 10 ml PO TID [facility] Last Admin: 07/06/23 13:24 Dose: 10 ml Documented By: KAYLA Levothyroxine Sodium (Levothyroxine Sodium 50 Mcg Tablet) 50 mcg PO DAILY@0600 [facility] Last Admin: 07/06/23 05:10 Dose: 50 mcg Documented By: HENRIETTA Melatonin (Melatonin 3 Mg Tablet) 9 mg PO BEDTIME [facility] Last Admin: 07/05/23 21:45 Dose: 9 mg Documented By: HENRIETTA Metoprolol Succinate (Metoprolol Succinate Er 50 Mg Tab.Er.24h) 50 mg PO DAILY [facility]; Protocol Last Admin: 07/06/23 09:23 Dose: 50 mg Documented By: KAYLA Omeprazole (Omeprazole 20 Mg Capsule.Dr) 20 mg PO DAILY@0630 [facility] Last Admin: 07/06/23 05:11 Dose: 20 mg Documented By: HENRIETTA Ondansetron HCl (Ondansetron Hcl 4 Mg/2 Ml Vial) 4 mg IVPUSH Q8H PRN PRN Reason: Nausea and Vomiting Oxybutynin Chloride (Oxybutynin Chloride 5 Mg Tablet) 5 mg PO BID [facility] Last Admin: 07/06/23 09:23 Dose: 5 mg Documented By: KAYLA Paroxetine HCl (Paroxetine Hcl 40 Mg Tablet) 40 mg PO BEDTIME [facility] Last Admin: 07/05/23 21:46 Dose: 40 mg Documented By: HENRIETTA Sodium Chloride (0.9 % Sodium Chloride Flush 3 Ml Syringe) 3 ml IVFLUSH QSHIFT [facility] Last Admin: 07/06/23 09:24 Dose: 3 ml Documented By: KAYLA Tamsulosin HCl (Tamsulosin Hcl 0.4 Mg Capsule) 0.4 mg PO BEDTIME [facility] Last Admin: 07/05/23 21:45 Dose: 0.4 mg Documented By: HENRIETTA Vitamin D (Cholecalciferol (Vitamin D3) 25 Mcg Tablet) 25 mcg PO DAILY [facility] Last Admin: 07/06/23 09:23 Dose: 25 mcg Documented By: KAYLA Labs 07/04/23 06:10 07/06/23 07:04 Labs: Laboratory Results - last 24 hr 07/06/23 07:04 Anion Gap 11 L Estim Creat Clear Calc 42.1 Estimated GFR 45 Random Glucose 109 Calcium 8.9 Assessment and Plan (1) Pleural effusion: Status: Acute (2) Atrial fibrillation with RVR: Status: Acute (3) COVID-19: Status: Acute Plan Pt is a 67-year-old female with a PMH significant for?multiple sclerosis, COPD not on home oxygen, paroxysmal AFib on Eliquis CAD, PAD, CKD, hypothyroidism, HTN, urinary retention, and HFpEF who presents to the ED For evaluation of worsening SOB since last night. Pt will be admitted to the hospital for treatment and further evaluation of acute hypoxic respiratory failure in the setting of COVID infection and acute HFpEF exacerbation. Acute hypoxic respiratory failure in the setting of COVID infection and CHF exacerbation Oxygenation improved currently on room air finger oximetry 98%, recommend out of bed to chair and ambulation On Dexamethasone 6mg by mouth day 02/03 Continue as needed albuterol,Monitor respiratory status. Acute on chronic HFrEF exacerbation On admission noted to have SOB, LLE, elevated BNP, CXR with evidence of new pleural effusion, treated with IV Lasix 20 mg b.i.d. at present appears euvolemic , Recent echo 05/28/23 showed EF 20-25%, severe global hypokinesis, indeterminate diastolic function Was not on diuretics at home, added Lasix 40 mg daily BNP improved from 1840 to 1402, chronically elevated BNP, follow clinical course AFib with RVR Pt with HR as high as 120s in the ED, Likely multifactorial: in the setting of COVID infection and HFpEF exacerbation Heart rate now improved, Continue home metoprolol, amiodarone and Eliquis Anemia of chronic disease Likely secondary to CKD 3,H&H stable, at baseline Follow CBC Urinary retention Chronic mahoney in place, Continue tamsulosin, oxybutynin Hypothyroidism Continue levothyroxine CAD Continue BB, Plavix, statin Mood disorder Continue home meds Full Code DVT Prophylaxis: On Eliquis Disposition patient wishes to be discharged to a different facility , seen by PT they recommend short-term rehab welfare case worker arranging for rehab bed. Pt will require continued hospitalization for treatment of hypoxia due to COVID infection, acute Chf exacerbation and AFib with RVR. Time Spent With Patient Time: Total time managing care of this patient today ____ minutes. Quality Stroke Does the patient have a stroke diagnosis?: No VTE Prior VTE?: No VTE Risk Level:: Medical - moderate - high VTE Device Contraindication: Treatment Not Indicated VTE Drug Contraindication: N/A - Med Ordered
--- NOTE | 2023-07-06 14:57 | MHC.CM.PN ---
Updated Aliya that no [facility] referred to have offered a bed. Informed her that [facility] indicated that [facility] may [facility] an available bed for [facility]. Aliya in agreement for referral to be sent to [facility]. Referral placed to [facility] per request. Pending response. CM to follow.
--- NOTE | 2023-07-06 15:08 | MHC.CM.PN ---
Updated medical on status of bed search/discharge planning progress. CM to follow.
[2023-07-06 15:30] VITALS: BP 129/88; PULSE 89; RESP 18; TEMP 37; O2SAT 97
--- NOTE | 2023-07-06 17:13 | PC.NURSE ---
patient has chronic mahoney that was replaced on 06/26/23 at the rehab. per pt report she failed voiding trial and Mahoney was place back on bthe date she went to the DR Kiser office. Her next appointment with urology is on July 22 2023 .
[2023-07-06 19:59] VITALS: BP 143/96; PULSE 106; RESP 17; TEMP 36.7; O2SAT 98
[2023-07-06] MEDS: Atorvastatin Calcium 80 MG TABLET PO (21:12)
[2023-07-06] MEDS: Tamsulosin HCL 0.4 MG CAPSULE PO (21:13)
[2023-07-06] MEDS: Melatonin 3 MG TABLET 9 MG PO (21:13)
[2023-07-06] MEDS: PARoxetine HCL 40 MG TABLET PO (21:13)
[2023-07-06 23:56] VITALS: BP 128/88; PULSE 91; RESP 18; TEMP 37.1; O2SAT 98
[2023-07-07] MEDS: 0.9 % Sodium Chloride Flush 3 ML SYRINGE IVFLUSH ×2 (00:31→09:21)
[2023-07-07 03:12] VITALS: BP 140/61; PULSE 100; RESP 17; TEMP 37; O2SAT 97
[2023-07-07] MEDS: Omeprazole 20 MG CAPSULE.DR PO (06:11)
[2023-07-07] MEDS: Levothyroxine Sodium 50 MCG TABLET PO (06:11)
[2023-07-07 07:24] VITALS: BP 141/95; PULSE 95; RESP 20; TEMP 36.3; O2SAT 97
--- NOTE | 2023-07-07 08:19 | MHC.CM.PN ---
Addendum entered by Judit Cowan 07/07/23 11:29: [facility] IS OFFERING A BED FOR TODAY CM CALLED PTS SISTER/HCP, MERY [phone] MERY REPORTS BEING HAPPY WITH THIS DC PLAN SHE SAYS SHE HAS DISCUSSED THIS WITH PT WHO IS HAPPY SHE WILL BE AT A SNF CLOSER TO [facility]ERY [facility] WILL BRING PTS HOME MEDICATIONS TO THE SNF TOMORROW PT WILL DC TO [facility] TODAY VIA [facility] AT 1300 HOURS Original Note: PT AWAITING STR PLACEMENT REFERRAL ARE OUT BASED ON PT/HCP PREFERENCES [facility] ARE FOLLOWING UPDATES SENT, AWAITING RESPONSES
[2023-07-07] MEDS: Cyanocobalamin (Vitamin B-12) 1,000 MCG TABLET 1000 MCG PO (09:20)
[2023-07-07] MEDS: Cholecalciferol (Vitamin D3) 25 MCG TABLET PO (09:20)
[2023-07-07] MEDS: Clopidogrel Bisulfate 75 MG TABLET PO (09:20)
[2023-07-07] MEDS: dexAMETHasone 6 MG TABLET PO (09:20)
[2023-07-07] MEDS: oxyBUTYnin chloride 5 MG TABLET PO (09:20)
[2023-07-07] MEDS: Metoprolol Succinate ER 50 MG TAB.ER.24H PO (09:20)
[2023-07-07] MEDS: Amiodarone HCL 200 MG TABLET PO (09:20)
[2023-07-07] MEDS: Apixaban 5 MG TABLET PO (09:20)
[2023-07-07] MEDS: Furosemide 40 MG TABLET PO (09:20)
[2023-07-07] MEDS: guaiFENesin DM 100/10/5 ML 5 ML SYRUP 10 ML PO (09:21)
[2023-07-07 11:06] VITALS: BP 134/90; PULSE 76; RESP 20; TEMP 36.3; O2SAT 96
--- NOTE | 2023-07-07 11:41 | P.DS_ITS ---
DS: Providers Provider Date of Service: 07/07/23 Date of admission: 07/03/23 17:00 Date of discharge: 07/07/23 Primary care physician: Unknown Physician DS: Diagnosis Discharge Diagnosis (1) Pleural effusion: Status: Acute (2) Atrial fibrillation with RVR: Status: Acute (3) COVID-19: Status: Acute (4) Acute respiratory failure with hypoxia: Status: Acute (5) Acute on chronic HFrEF (heart failure with reduced ejection fraction): Status: Acute DS: Summary Hospital Course Hospital Course: from admission H+P by hospitalist KARLY Gonzalez, 07/03/23: Pt is a 67-year-old female with a PMH significant for?multiple sclerosis, COPD not on home oxygen, paroxysmal AFib on Eliquis CAD, PAD, CKD, hypothyroidism, HTN, urinary retention, and [HFrEF]who presents to the ED For evaluation of worsening SOB since last night. Patient was recently admitted to the hospital on 05/29-06/13/2023 for open olecranon fracture s/p fall, AFib with RVR, UTI, acute CHF exacerbation, and SUSAN on CKD with urinary retention and hematuria requiring Hou and CBI. Pt was then discharged to short term rehab, from which she presents today. Pt states she woke up last night in the middle of the night and suddenly could not breathe. Also reports dizziness and palpitations. SOB continued during the morning where she could not walk 10 feet without having to stop and catch her breath. Has had an occasional, mostly nonproductive cough. She also reports worsening lower leg edema for the past few days. Has been wearing compression stockings during the day, is not on home diuretics. Denies chest pain/pressure. No fever, chills, nausea, vomiting, diarrhea, abdominal pain. She notes [facility] where she is currently residing tested everyone yesterday and today for COVID; states tested negative both times. ? In the ED patient with temperature as high as 99.6 degrees, tachycardic up to 120s, tachypneic up to 23, and hypertensive up to 146/99. Patient satting at 94% O2 on RA at rest, though desatting to 82% with exertion. Labs were significant for stable H&H of 10.0/31.8, alk-phos of 151, BNP 1840, albumin 3.1. Procalcitonin negative at 0.06. Electrolytes WNL. CXR showed moderate right pleural effusion with right base infiltrate or atelectasis and mild pulmonary vascular congestion and redistribution. EKG demonstrated atrial fibrillation with RVR of 108 with T-wave inversions in leads I, II, V4, V5, and V6. Pt was treated with furosemide 20 mg IV metoprolol 5 mg IV. Pt will be admitted to the hospital for treatment and further evaluation of acute hypoxic respiratory failure in the setting of COVID infection and acute HFpEF exacerbation. 67yo F with MS, COPD, paroxysmal AF on apixaban, CAD, PAD, CKD, hypothyroidism, chronic urinary retention, HTN, and HFrEF presenting with dyspnea and admitted for hypoxia due to Covid-19 infection. Hospital course by problem:on. Acute hypoxic respiratory failure in the setting of COVID infection and CHF exacerbation - weaned off of oxygen, treated with dexamethasone IV/PO x 5 days Acute on chronic HFrEF exacerbation - noted to have hypoxia and left pleural effusion, treated with IV furosemide - prior TTE 05/28/23 showed LVEF 20-25% with global hypokinesis - started on PO furosemide 40 mg daily for maintenance AFib with RVR - HR as high as 120s in the ED but improved with treatment of CHF and Covid-19. Continued metoprolol and amiodarone along with apixaban She was discharged to [facility] for [facility]-term rehabilitation. Furosemide 40 mg daily started as above. She will need 5 more days of dexamethasone 6 mg. Time Spent with Patient Time attestation: Total time managing care of this patient today ___40 _ minutes. Discharge coordination time: Greater than 30 minutes Quality: Safe Use of Opioids Does Pt have an Active Cancer Diagnosis on the Problem List?: No Quality: Stroke Does the patient have a stroke diagnosis?: No Physical Exam Vital Signs: Vital Signs: Last Vital Signs Temp 97.4 F 07/07/23 11:06 Pulse 76 07/07/23 11:06 Resp 20 07/07/23 11:06 BP 134/90 H 07/07/23 11:06 Pulse Ox 96 07/07/23 11:06 O2 Del Method Room Air 07/07/23 11:06 BMI result Body Mass Index 22.8 Gen: in no acute distress HEENT: sclera anicteric, moist mucus membranes Neck: supple Lungs: clear to auscultation bilaterally Heart: irregularly irregular, no murmurs Abd: soft, non-tender, non-distended Ext: no edema Skin: warm/well-perfused Neuro: alert and oriented x3, no focal findings Psych: appropriate affect DS: Data Data Completed and Pending Completed studies during hospitalization [Text1]: Laboratory Results WBC 8.5 X10*3/uL (4.8-10.8) 07/04/23 06:10 RBC 3.73 X10*6/uL (4.20-5.50) L 07/04/23 06:10 Hgb 9.8 g/dl (12.0-16.0) L 07/04/23 06:10 Hct 30.6 % (37.0-47.0) L 07/04/23 06:10 MCV 82.0 fL (80.0-98.0) 07/04/23 06:10 MCH 26.3 pg (27.0-33.0) L 07/04/23 06:10 MCHC 32.0 g/dl (31.0-35.0) 07/04/23 06:10 RDW 17.2 % (11.0-16.0) H 07/04/23 06:10 Plt Count 181 X10*3/uL (160-400) 07/04/23 06:10 MPV 11.0 fL (9.4-12.3) 07/04/23 06:10 Immature Gran % (Auto) 0.6 % (0.0-0.4) H 07/03/23 11:21 Neut % (Auto) 89.3 % (45-73) H 07/03/23 11:21 Lymph % (Auto) 4.5 % (20-40) L 07/03/23 11:21 [place] % (Auto) 5.3 % (2-11) 07/03/23 11:21 Eos % (Auto) 0.0 % (0-4) 07/03/23 11:21 Baso % (Auto) 0.3 % (0-2) 07/03/23 11:21 Lymph # (Auto) 0.4 X10*3/uL (1.2-4.9) L 07/03/23 11:21 [place] # (Auto) 0.5 X10*3/uL (0.1-1.2) 07/03/23 11:21 Eos # (Auto) 0.0 X10*3/uL (0.0-0.4) 07/03/23 11:21 Baso # (Auto) 0.0 X10*3/uL (0.0-0.2) 07/03/23 11:21 Abs Immat Gran (auto) 0.05 X10*3/uL (0.00-0.03) H 07/03/23 11:21 Absolute Neuts (auto) 7.9 x10*3/uL (2.0-8.3) 07/03/23 11:21 Absolute Nucleated RBC 0.000 X10*3/uL (0.0-0.012) 07/04/23 06:10 Nucleated RBC % (auto) 0.0 /100WBC (0.0-0.2) 07/04/23 06:10 Sodium 140 mmol/L (135-145) 07/06/23 07:04 Potassium 3.7 mmol/L (3.3-5.1) 07/06/23 07:04 Chloride 110 mmol/L (96-108) H 07/06/23 07:04 Carbon Dioxide 23 mmol/L (22-29) 07/06/23 07:04 Anion Gap 11 (12-20) L 07/06/23 07:04 BUN 26 mg/dL (9-16) H 07/06/23 07:04 Creatinine 1.18 mg/dL (0.5-1.4) 07/06/23 07:04 Estim Creat Clear Calc 42.1 07/06/23 07:04 Estimated GFR 45 07/06/23 07:04 Random Glucose 109 mg/dL (60-115) 07/06/23 07:04 Calcium 8.9 mg/dL (8.4-10.2) 07/06/23 07:04 Magnesium 1.8 mg/dL (1.6-2.6) 07/04/23 06:10 Total Bilirubin 0.8 mg/dL (0.0-1.0) 07/03/23 11:21 Direct Bilirubin 0.4 mg/dL (0.0-0.5) 07/03/23 11:21 AST 19 U/L (5-31) 07/03/23 11:21 ALT 16 U/L (0-31) 07/03/23 11:21 Alkaline Phosphatase 151 U/L (39-117) H 07/03/23 11:21 Troponin I High Sens 7.6 ng/L (<3.5-17.0) D 07/03/23 11:21 B-Natriuretic Peptide 1402 pg/mL (<100) H 07/05/23 06:14 Total Protein 6.1 g/dL (6.5-8.0) L 07/03/23 11:21 Albumin 3.1 g/dL (3.5-5.0) L 07/03/23 11:21 Procalcitonin 0.06 ng/mL 07/03/23 11:21 Urine Color Yellow 07/03/23 11:21 Urine Appearance Turbid 07/03/23 11:21 Urine pH 5.5 (5.0-9.0) 07/03/23 11:21 Ur Specific [place] 1.020 (1.005-1.025) 07/03/23 11:21 Urine Protein 300 (3+) mg/dL (Neg-Trace) H 07/03/23 11:21 Urine Glucose (UA) Negative mg/dL (Negative) 07/03/23 11:21 Urine Ketones Negative mg/dL (Negative) 07/03/23 11:21 Urine Blood Large (3+) (Negative) H 07/03/23 11:21 Urine Nitrite Negative (Negative) 07/03/23 11:21 Ur Leukocyte Esterase Large (3+) (Negative) H 07/03/23 11:21 Urine RBC >20 /HPF (0-2) H 07/03/23 11:21 Urine WBC >50 /HPF (0-5) H 07/03/23 11:21 Ur Squamous Epith Cells 0-2 /HPF (0-2) 07/03/23 11:21 Urine Bacteria 4+ (None Seen) 07/03/23 11:21 Hyaline Casts 0-2 /LPF (0-2) 07/03/23 11:21 Influenza Type A (PCR) NEGATIVE (Negative) 07/03/23 11:21 Influenza Type B (PCR) NEGATIVE (Negative) 07/03/23 11:21 RSV RNA Qual (PCR) NEGATIVE (Negative) 07/03/23 11:21 SARS-CoV-2 RNA (RT-PCR) POSITIVE (Negative) A 07/03/23 11:21 Impressions Chest X-Ray 07/03/23 10:57 IMPRESSION: 1. Moderate right pleural effusion. 2. Right base infiltrate or atelectasis. 3. Mild ulnar vascular congestion and redistribution. Discharge Plan Discharge Anticipated Discharge Date/Time: 07/07/23 11:32 Patient Disposition: Xfer SNF Discharge Diagnosis: hypoxia + CHF exacerbation + atrial fibrillation with rapid ventricular response, due to Covid-19 infection Referrals: Ludy Chen [facility] [Outside] Physician,Unknown J [Physician] - 1 Week Rod Wakefield MD [Physician] - 2 Weeks Discharge Medications: New furosemide 40 mg Tablet 40 mg PO DAILY Qty: 30 0RF Protocol: Hold for SBP< HOLD for SBP < : 90 dexamethasone 6 mg Tablet 6 mg PO DAILY Qty: 5 0RF Continued Eliquis 5 mg tablet 5 mg PO BID Qty: 180 2RF clopidogrel 75 mg tablet 75 mg PO DAILY Qty: 90 3RF oxybutynin chloride 5 mg tablet 5 mg PO BID Qty: 180 1RF metoprolol succinate 50 mg tablet extended release 24 hr 50 mg PO DAILY Qty: 180 0RF fluticasone propion-salmeterol 113-14 mcg/actuation aerosol powdr breath activated 1 inh inhalation Q12H 30 Days Qty: 1 3RF albuterol sulfate 90 mcg/actuation HFA aerosol inhaler 2 puff inhalation Q4-6H PRN (Reason: shortness of breath or wheezing) 30 Days Qty: 8.5 2RF omeprazole 20 mg capsule,delayed release(DR/EC) 20 mg PO QAM Qty: 90 1RF levothyroxine [Synthroid] 50 mcg tablet 50 mcg PO DAILY Qty: 60 0RF ferrous sulfate 325 mg (65 mg iron) tablet 325 mg PO BEDTIME Qty: 90 0RF cyanocobalamin (vitamin B-12) [Vitamin B-12] 1,000 mcg Tablet 1,000 mcg PO DAILY cholecalciferol (vitamin D3) [Vitamin D3] 25 mcg (1,000 unit) Tablet 25 mcg PO DAILY melatonin 10 mg Tablet 10 mg PO BEDTIME tamsulosin 0.4 mg Capsule 0.4 mg PO BEDTIME 30 Days Qty: 30 0RF amiodarone 200 mg Tablet 200 mg PO DAILY 30 Days Qty: 30 0RF atorvastatin 80 mg tablet 80 mg PO BEDTIME paroxetine HCl 40 mg tablet 40 mg PO BEDTIME Avonex 30 mcg/0.5 mL pen injector kit 30 mcg IM TU Discharge Orders: Discharge Order (Routine); Ordered 07/07/23 Ordered By: Judah Wylie Diet: Advance to usual diet Activity on Discharge: As tolerated Stand Alone Forms: Patient Portal Discharge page Care Plan Goals: cardiopulmonary health Health Concerns: hypoxia + CHF exacerbation + atrial fibrillation with rapid ventricular response, due to Covid-19 infection Plan of Treatment: Low-sodium diet: less than 2000 mg of sodium daily. Weigh yourself daily and call your doctor if your weight goes up by more than 3 lb/day or 5 lb/week. Take furosemide 40 mg daily Take dexamethasxone 6 mg daily for 5 more days Follow up with PCP within 1 week after discharge from SNF Assessment: See Discharge Summary.
[2023-07-07] MEDS: Docusate Sodium 100 MG CAPSULE PO (11:58)
== END 2023-07-07 13:30 | disposition skilled nursing facility (03) | DRG 177 ==
LOC: HO.ED 12:43 → HO.EDOVER 17:16 → HO.IMC 21:02
PROVIDERS: Hospitalist; Physician Assistant; Admitting Provider Student in an Organized Health Care Education/Training Program; Emergency Provider Emergency Medicine; PCP Internal Medicine; Visit Provider Family Medicine
DX: U07.1 COVID-19 (principal); I50.33 Acute on chronic diastolic (congestive) heart failure; J96.01 Acute respiratory failure with hypoxia; I13.0 Hypertensive heart and chronic kidney disease with heart failure and stage 1 through stage 4 chronic kidney disease, or unspecified chronic kidney disease; N18.30 Chronic kidney disease, stage 3 unspecified; G35 Multiple sclerosis; I25.10 Atherosclerotic heart disease of native coronary artery without angina pectoris; D63.1 Anemia in chronic kidney disease; F39 Unspecified mood [affective] disorder; E03.9 Hypothyroidism, unspecified; R33.9 Retention of urine, unspecified; Z87.891 Personal history of nicotine dependence; Z79.01 Long term (current) use of anticoagulants; Z79.02 Long term (current) use of antithrombotics/antiplatelets; Z71.52 Counseling for family member of drug abuser; Z79.890 Hormone replacement therapy; Z79.899 Other long term (current) drug therapy
CPT/HCPCS: 0241U; 36415; 71046; 80048; 80076; 81001; 81003; 83735; 83880; 84145; 84484; 85025; 85027; 87086; 93005; 94640; 97163; 99285; C1758; J1100; J1940; J8540

== ENCOUNTER → 2023-07-03 17:00 | Outpatient (BNV) | payer MEDICARE, BC, SELFPAY | PROVIDERS: Admitting Provider Student in an Organized Health Care Education/Training Program; Emergency Provider Emergency Medicine; Visit Provider Student in an Organized Health Care Education/Training Program | DX: I48.91 Unspecified atrial fibrillation (principal); U07.1 COVID-19; J96.01 Acute respiratory failure with hypoxia; I50.23 Acute on chronic systolic (congestive) heart failure; J90 Pleural effusion, not elsewhere classified | CPT/HCPCS: 99223; 99232; 99233; 99239 ==

== ENCOUNTER 2023-08-01 10:48 | Day surgery (SDC) | payer MEDICARE, BC, SELFPAY ==
[2023-07-30 15:46] VITALS: BMI 22.6
[2023-08-01] VITALS (8 sets, daily range): BP systolic 101–129; BP diastolic 64–83; PULSE 58–92; RESP 16–20; TEMP 36.1–36.5; O2SAT 97–100
--- NOTE | 2023-08-01 13:29 | HO.ANESPROP2 ---
[facility] Active Problems Active Problems: All Active Problems (Updated 07/28/23 @ 11:26 by Lilliam Deivne RN) Atherosclerotic cardiovascular disease (Acute) Hypotonic neurogenic bladder (Acute) Acute on chronic HFrEF (heart failure with reduced ejection fraction) (Acute) Acute respiratory failure with hypoxia (Acute) Pleural effusion (Acute) COVID-19 (Acute) Hospital discharge follow-up (Acute) CAD (coronary artery disease) (Acute) CHF (congestive heart failure) (Acute) Atrial fibrillation, persistent (Acute) Fracture of left proximal ulna (Acute) Urinary retention with incomplete bladder emptying (Acute) Open olecranon fracture (Acute) Raynauds disease (Acute) Acquired hypothyroidism (Acute) Other specified disorders of bone density and structure, right shoulder (Acute) Screening for osteoporosis (Acute) Preop cardiovascular exam (Acute) Bilateral cataracts (Acute) Preoperative clearance (Acute) PAD (peripheral artery disease) (Acute) Essential hypertension (Acute) Cardiomyopathy (Acute) Left leg pain (Acute) Asymmetric blood pressures (Acute) S/P cardiac cath (Acute ~12/2020) Hypertensive emergency (Acute) Acute diastolic (congestive) heart failure (Acute) Acute on chronic systolic (congestive) heart failure (Acute) Rectal bleeding (Acute) NSTEMI (non-ST elevated myocardial infarction) (Acute) Hypertensive crisis (Acute) Acute and chronic respiratory failure with hypoxia (Acute) Acute exacerbation of CHF (congestive heart failure) (Acute) Pulmonary nodules (Acute) Peripheral arterial occlusive disease (Acute) Past Medical History Medical History (Updated 07/28/23 @ 11:26 by Lilliam Devine RN) Atherosclerotic cardiovascular disease PAF (paroxysmal atrial fibrillation) Atrial fibrillation with rapid ventricular response Left renal artery stenosis Personal history of nicotine dependence Cardiomyopathy Essential hypertension Asymmetric blood pressures Acute on chronic systolic (congestive) heart failure CHF (congestive heart failure) CAD (coronary artery disease) Multiple sclerosis Pulmonary nodules COPD (chronic obstructive pulmonary disease) Peripheral arterial occlusive disease Family History Family History Father No problems noted. Mother No problems noted. Brother Diabetes Family history of problems with anesthesia: No Surgical History Surgical History (Updated 07/15/23 @ 00:03 by Camelia Bermudez) History of endoscopy History of colonoscopy History of heart artery stent (~2018) Status post angioplasty with stent (~09/2018) S/P insertion of iliac artery stent (~02/2019) S/P cardiac cath (~12/2020) History of cholecystectomy (~02/2009) History of Problems with Anesthesia: No Social History Social History Household Members: None Housing: House Are you a primary vp care management to a significant other at home: No Do you presently have visiting nurse or other home services: No Alcohol intake: never Patient Tobacco Use Status: Former Tobacco user Quit Date: 2017 Tobacco use type: Cigarette e-Cigarette/Vaping Use: Never Used Second Hand Smoke Exposure: No Advance Directives: No Advance Directives Information Provided: Yes Advance Directives Date on File: 12/27/20 service: No Current occupational status: retired Cognitive needs: Yes (cane) Hearing needs: No Vision needs: Yes (reading glasses) Meds Allergies Allergy/AdvReac Type Severity Reaction Status Date / Time codeine [Codeine] AdvReac Mild vomiting Verified 07/03/23 12:33 Home Medications Medication Instructions Recorded Confirmed Last Taken Type interferon beta-1a 30 mcg/0.5 mL 30 mcg IM TU 10/03/20 07/03/23 09/13/21 History intramuscular pen kit (Avonex) paroxetine HCl 40 mg tablet 40 mg PO BEDTIME 10/03/20 07/03/23 09/12/21 History cholecalciferol (vitamin D3) 25 25 mcg PO DAILY 12/20/20 07/03/23 09/13/21 History mcg (1,000 unit) tablet (Vitamin D3) cyanocobalamin (vitamin B-12) 1,000 mcg PO DAILY 12/20/20 07/03/23 09/13/21 History 1,000 mcg tablet (Vitamin B-12) melatonin 10 mg tablet 10 mg PO BEDTIME Insomnia 01/13/23 07/03/23 Unknown History Exam Exam Date and Time: August 01, 2023 1329 Height,Weight and Vital Signs: Height 5 ft 6 in Weight 63.503 kg Last Vital Signs Temp 97 F 08/01/23 12:54 Pulse 92 08/01/23 12:54 Resp 20 08/01/23 12:54 BP 124/68 08/01/23 12:54 Pulse Ox 97 08/01/23 12:54 O2 Del Method Room Air 08/01/23 12:54 Airway Mallampati Class: III TM Dist: >3cm Neck ROM: Full Assessment and Plan Assessment Anesthesia Assessment: Anesthesia Plan Discussed and Chart Reviewed Final Anesthetic Review Family History of Problems with Anesthesia: No History of Problems with Anesthesia: No NPO: Yes ASA Class: IV Final Preanesthetic Review: No Changes in Pt Med Stat, Meds/Allgs Chart Reviewed, Consent Obtained/Reviewed and Anes Risks/Benef Reviewed Patient Risk: High Procedure Risk: Low Anesthetic Plan Anesthetic Plan: GA Disposition: Standard PACU
--- NOTE | 2023-08-01 13:41 | HO.CARDIVERS ---
Cardioversion Procedure Note Cardioversion Date of Procedure: 08/01/2023 Ordering Provider: Dr. Lizama Performing Provider: Dr. Lizama Indication for Procedure: Atrial fibrillation with congestive heart failure Pre-Op Diagnosis: Atrial fibrillation Post-Op Diagnosis: Sinus rhythm JOAN findings (if JOAN Performed): Not performed History: See full office note Consent: Informed consent obtained. Procedure: After informed consent was obtained, patient was taken to the PACU. The patient was then positioned appropriately. The cardioversion pads were placed in anteroposterior position. Once under anesthesia, 120 joules of synchronized shock was administered. The rhythm converted from atrial fibrillation to sinus rhythm. Patient remained in sinus rhythm after the end of procedure. Complications: None Impression: Successful cardioversion from atrial fibrillation to sinus rhythm. Recommendations: Continue amiodarone. Will arrange follow-up.
--- NOTE | 2023-08-01 13:41 | MHC.SHP ---
Pre-Procedural Eval Section A Date of Service: 08/01/23 The patient is an INPATIENT: No The History & Physical has been completed within 30 days and I have reviewed it.: No Section B Chief Complaint: afib Details of Present Illness: shortness of breath, symptomatic from atrial fibrillation, many co-morbidities. Relevant Family History (Specify if Yes): No Relevant Social History: None Present Medications: see Short Stay Collaborative assessment Medical History: No relevant PMH History of Previous Operations: No relevant previous surgery Allergies: Allergies Allergy/AdvReac Type Severity Reaction Status Date / Time codeine [Codeine] AdvReac Mild vomiting Verified 07/03/23 12:33 Review of Systems Review of Systems Comment: 10 system review -ve Exam Exam Comment: Head/neck- normal Cardiac- S1S2+ RS- normal Abd/[employer]- normal SKin- no rash Extremities- unremarkable Plan I have reviewed the history and physical and performed a pertinent physical examination on my patient. No changes have occurred unless specified. Time Spent With Patient Time: Total time managing care of this patient today ____ minutes.
== END 2023-08-01 14:55 | disposition home or self-care (01) ==
PROVIDERS: PCP Internal Medicine; Visit Provider Internal Medicine
PROC: 5A2204Z Restoration of Cardiac Rhythm, Single (ICD-10-PCS; principal; 2023-08-01 13:30)
DX: I48.19 Other persistent atrial fibrillation (principal); I42.8 Other cardiomyopathies; I11.0 Hypertensive heart disease with heart failure; I50.9 Heart failure, unspecified; I25.10 Atherosclerotic heart disease of native coronary artery without angina pectoris; Z95.5 Presence of coronary angioplasty implant and graft; J44.9 Chronic obstructive pulmonary disease, unspecified; E78.5 Hyperlipidemia, unspecified; Z79.899 Other long term (current) drug therapy; Z87.891 Personal history of nicotine dependence
CPT/HCPCS: 92960; 93005

== ENCOUNTER → 2023-08-01 10:48 | Outpatient (BNV) | payer MEDICARE, BC, SELFPAY | PROVIDERS: PCP Internal Medicine; Visit Provider Internal Medicine | DX: I48.19 Other persistent atrial fibrillation (principal) | CPT/HCPCS: 92960 ==

== ENCOUNTER 2023-09-02 15:06 | Outpatient (AMB) | payer MEDICARE, BC, SELFPAY ==
--- NOTE | 2023-09-02 15:11 | MHC.OFFVIS ---
Intake Vital Signs 09/02/23 15:13 BP 102/72 Blood Pressure Location Lt brachial Position Sitting Pulse 57 Pulse Source Pulse Oximeter Pulse Oximetry (%) 99 Oxygen Delivery Method Room Air Intake Visit Reasons: copd Intake Note: pt is here for follow up and states she has been though a lot in the past few months, rehab, UTI, but better now. Talent Development Consultant Required: No Allergies codeine [Codeine] Adverse Reaction (Mild, Verified 09/02/23 15:54) vomiting Medication List - Last Reconciled 09/02/23 by Alonso Mehta MD albuterol sulfate 90 mcg/actuation 2 puffs inhalation Q4-6H PRN 30 days amiodarone 200 mg PO DAILY 30 days apixaban (Eliquis) 5 mg PO BID atorvastatin 80 mg PO BEDTIME cholecalciferol (vitamin D3) (Vitamin D3) 25 mcg PO DAILY clopidogrel 75 mg PO DAILY cyanocobalamin (vitamin B-12) (Vitamin B-12) 1,000 mcg PO DAILY dexamethasone 6 mg PO DAILY ferrous sulfate 325 mg PO BEDTIME fluticasone propion-salmeterol 113-14 mcg/actuation 1 inh inhalation Q12H 30 days furosemide 40 mg See Protocol PO DAILY interferon beta-1a (Avonex) 30 mcg IM TU levothyroxine (Synthroid) 75 mcg PO DAILY melatonin 10 mg PO BEDTIME metoprolol succinate ER 25 mg PO DAILY omeprazole 20 mg PO QAM paroxetine HCl 40 mg PO BEDTIME tamsulosin 0.4 mg PO BEDTIME 30 days Do you need a note to return to daycare/school/sports/work: No HPI copd HPI Details 68 YEARS OLD, A LONG TIME PATIENT OF MINE, WITH DIAGNOSIS OF MULTIPLE SCLEROSIS, PAST HISTORY OF SMOKING, HAS CHRONIC OBSTRUCTIVE PULMONARY DISEASE. , WHICH HAS REMAINED UNDER CONTROLLED WITH THE CURRENT MINIMAL MEDS. HER PREDOMINANT PROBLEM IS THAT OF CARDIO MYOPATHY AND CONGESTIVE HEART FAILURE. LATELY SHE HAS HAD ATRIAL FIBRILLATION ,. WITH CONGESTIVE HEART FAILURE IN OF THIS YEAR SHE WAS ADMITTED BECAUSE OF RAPID VENTRICULAR RATE AND CONGESTIVE HEART FAILURE, TREATED WITH MEDICATIONS. UNFORTUNATELY DEVELOPED COVID INFECTION, TREATED WITH A COURSE OF DEXAMETHASONE. SHE WAS SENT TO REHAB UNIT WHERE SHE SPENT SEVERAL WEEKS. DURING THIS TIME SHE HAD CARDIOVERTION, AND NOW REMAINS IN SINUS RHYTHM. SHE CLAIMS THAT HER BREATHING IS MUCH BETTER SINCE THE CARDIOVERSION. HER CHEST X-RAY AND CT SCAN OF THE CHEST ( IN DECEMBER 2022 ) have shown a masslike density in right mid lobe With her past history of smoking she is a high risk case for neoplasm. HOWEVER HER CHEST X-RAY ON 07/03/2023, WHICH I HAVE REVIEWED, SHOWS CARDIOMEGALY, SMALL BILATERAL PLEURAL EFFUSIONS SECONDARY TO CONGESTIVE HEART FAILURE. AND NO DEFINITE MASS. PATIENT CLAIMS THAT HER BREATHING IS FAIRLY GOOD AT THIS TIME. SHE HAS VERY LITTLE COUGH OR EXPECTORATION. SHE DOES NOT HAVE ANY WHEEZING. SHE DOES USE ADVAIR HFA 113-14 1 INHALATION B.I.D., AND NEEDS A REFILL. [facility] Medical History (Updated 09/02/23 @ 16:08 by Alonso Mehta MD) History of smoking 30 or more pack years COPD (chronic obstructive pulmonary disease) Atherosclerotic cardiovascular disease PAF (paroxysmal atrial fibrillation) Atrial fibrillation with rapid ventricular response Left renal artery stenosis Personal history of nicotine dependence Cardiomyopathy Essential hypertension Asymmetric blood pressures Acute on chronic systolic (congestive) heart failure CHF (congestive heart failure) CAD (coronary artery disease) Multiple sclerosis Pulmonary nodules Peripheral arterial occlusive disease Surgical History History of endoscopy History of colonoscopy History of heart artery stent (~2018) Status post angioplasty with stent (~09/2018) S/P insertion of iliac artery stent (~02/2019) S/P cardiac cath (~12/2020) History of cholecystectomy (~02/2009) Family History Father No problems noted. Mother No problems noted. Brother Diabetes Social History Household Members: None Housing: House Are you a primary animal care technician to a significant other at home: No Do you presently have visiting nurse or other home services: No Alcohol intake: never Patient Tobacco Use Status: Former Tobacco user Quit Date: 2017 Tobacco use type: Cigarette e-Cigarette/Vaping Use: Never Used Second Hand Smoke Exposure: No Advance Directives Date on File: 12/27/20 service: No Current occupational status: retired Cognitive needs: Yes (cane) Hearing needs: No Vision needs: Yes (reading glasses) Review of Systems Const All systems reviewed & are unremarkable except as noted in HPI and below Card Reports dyspnea on exertion Resp Reports cough (mild ) and Reports dyspnea on exertion Musc Reports abnormal gait (mild instability ), Reports myalgias and Reports muscle weakness Neuro Reports abnormal gait (mild instability ) Psych Reports depression (controlled) Physical Exam Vital Signs: Last Vital Signs Pulse 57 09/02/23 15:13 BP 102/72 09/02/23 15:13 Pulse Ox 99 09/02/23 15:13 Oxygen Delivery Method Room Air 09/02/23 15:13 Const Other: Chronically sick-looking, walks slowly with cane. General: comfortable, no acute distress, alert and awake Orientation/consciousness: patient oriented x3 HEENT Head: Yes normal to inspection General nose exam: No nasal polyps present and No nasal discharge present Face and sinus: Yes sinuses nontender Mouth: oropharynx normal Throat: Yes posterior oropharynx normal Eyes General: appearance normal, both eyes and all related structures Neck Neck: Yes normal visual inspection, Yes no lymphadenopathy, Yes trachea midline and Yes no JVD Thyroid: Thyroid normal Chest Chest palpation & inspection: normal inspection of the chest, normal palpation of entire chest wall and no tenderness Resp Effort & Inspection: prolonged expiratory phase Auscultation: clear to auscultation bilaterally, no crackles, no wheezes and diminished lung sounds (somewhat distant ,) Cardio Palpation: normal PMI Rate: regular rate Rhythm: regular rhythm Heart sounds: S2 normal heart sound present (split ), no gallops and Murmur heart sound present (faint systolic murmur at LSB.) GI Palpation (GI): Soft to palpation, nontender, No hepatosplenomegaly present and no masses Auscultation: normal bowel sounds Back/Spine/Pelvis Thoracic/Lumbar Spine: thoracic and lumbar spine normal to inspection Skin General skin exam: no rashes or lesions noted Neuro General: patient oriented x3, No gait normal (gait is spastic , and slow ) and no focal motor deficits Cranial nerves: Yes CN's II-XII intact bilaterally Extrem General: Yes normal to inspection, Yes no clubbing, cyanosis or edema, Yes no calf tenderness and No venous stasis dermatitis Psych Appearance: grossly normal Mental Status: mental status grossly normal Speech and movement: Normal speech and movement present Results Reviewed Results Reviewed: CT SCAN OF CHEST ON 01/13/23 MPRESSION: Right middle lobe masslike density measuring 3 x 1.5 cm. This could represent pneumonia. Recommend short-term follow-up to resolution to exclude underlying mass. In the absence of infection, this could be further evaluated with PET/CT or tissue sampling. CHEST XRAY ON 07/03/23 1. Moderate right pleural effusion. 2. Right base infiltrate or atelectasis. 3. Mild ulnar vascular congestion and redistribution. Assessment & Plan Assessment & Plan (1) History of smoking 30 or more pack years: Comment: This patient does have history of smoking for almost 40 years, She is a high risk case for lung neoplasm. Luckily has quit for the last few years Code(s): Z87.891 - Personal history of nicotine dependence (2) CAD (coronary artery disease): Comment: (Hx 2 MIs 2018 & 2020 - Hx LCx & RCA stents 2019 - patent on recent 12/2020 cath) Code(s): I25.10 - Atherosclerotic heart disease of [place] coronary artery without angina pectoris (3) CHF (congestive heart failure): Comment: She was treated for congestive heart failure/bilateral pleural effusions, in June of this year. She stays on diuretic therapy is doing fairly well at this time. Code(s): I50.9 - Heart failure, unspecified (4) PAD (peripheral artery disease): Comment: 10/14/2018 - right SFA stent 03/24/2019 - left common iliac stent, left external iliac plasty, left SFA stent 12/26/2021 left SFA plasty with DCB for InStent restenosis Code(s): I73.9 - Peripheral vascular disease, unspecified (5) Cardiomyopathy: Comment: She has cardio myopathy, secondary to coronary artery disease. Has low ejection fraction. Also has had atrial fibrillation which is now controlled after cardioversion. Actively followed. Up by Cardiology Code(s): I42.9 - Cardiomyopathy, unspecified Qualifiers: Cardiomyopathy type: other Qualified Code(s): I42.8 - Other cardiomyopathies (6) Pulmonary nodules: Comment: (11/06/20 CT showed 2 new ill-defined nodules in ligula, 6 & 7mm) Patient was in the Annual lung screening program. Because of her severe comorbidities she, .has not had a regular follow-up Last CT scan of the chest in December 2022, showed a nonspecific density in the right middle lobe, and a short-term CT scan was recommended I will go ahead and put an order for CT scan of the chest, and take it from there. Code(s): R91.8 - Other nonspecific abnormal finding of lung field Orders: Orders CT chest wo IV con Today R91.1 - Solitary pulmonary nodule Medications: Changed From levothyroxine (Synthroid) 50 mcg PO DAILY 60 tabs 0RF To levothyroxine (Synthroid) 75 mcg PO DAILY From metoprolol succinate ER 50 mg PO DAILY 180 tabs 1RF To metoprolol succinate ER 25 mg PO DAILY Refilled fluticasone propion-salmeterol 113-14 mcg/actuation 1 inh inhalation Q12H 30 days 1 ea 5RF copd Coding Level of Care Code Est Pt Level 4 (74564) Diagnoses History of smoking 30 or more pack years Z87.891 CAD (coronary artery disease) I25.10 CHF (congestive heart failure) I50.9 PAD (peripheral artery disease) I73.9 Other cardiomyopathy I42.8 Cardiomyopathy type: other Pulmonary nodules R91.8
[2023-09-02 15:13] VITALS: BP 102/72; PULSE 57; O2SAT 99
== END 2023-09-02 15:50 | disposition home or self-care (01) ==
PROVIDERS: PCP Internal Medicine; Visit Provider Internal Medicine
DX: Z87.891 Personal history of nicotine dependence (principal); I25.10 Atherosclerotic heart disease of native coronary artery without angina pectoris; I50.9 Heart failure, unspecified; I73.9 Peripheral vascular disease, unspecified; I42.8 Other cardiomyopathies; R91.8 Other nonspecific abnormal finding of lung field
CPT/HCPCS: 99214

== ENCOUNTER → 2023-09-02 15:06 | Outpatient (BNVA) | payer MEDICARE, BC, SELFPAY | PROVIDERS: Visit Provider Internal Medicine | DX: R91.8 Other nonspecific abnormal finding of lung field (principal); I25.10 Atherosclerotic heart disease of native coronary artery without angina pectoris; I50.9 Heart failure, unspecified; I73.9 Peripheral vascular disease, unspecified; I42.8 Other cardiomyopathies; Z87.891 Personal history of nicotine dependence | CPT/HCPCS: 99212 ==

== ENCOUNTER → 2023-09-22 13:57 | Outpatient (REF) | payer MEDICARE, BC, SELFPAY ==
--- NOTE | 2023-09-22 14:01 | CA_ITS ---
Transthoracic Echocardiogram Patient (Last, First, Middle): Nai Garcia S Gender: Female Date of : 1955 Age: 68 Procedure Date: 09/22/2023 Procedure Type: Transthoracic Echocardiogram Location: OP Height: 167.64 cm Weight: 65.77 kg BSA: 1.74 m2 Heart Rate: 58 bpm BP: 102 / 70 mmHg Noxious Weeds And Pest Inspector: SB Referring MD: John Lizama MD Piece Dyer: Braulio Kraus MD Symptoms: CHF Study Quality: Adequate ECG Rhythm: Bradycardia Conclusions: - Mildly reduced LV ejection fraction of 45-50% with mild LVH with at least grade 2 diastolic dysfunction Findings Procedure Information The patient declines contrast. Left Ventricle Normal left ventricular cavity size. There is mildly increased left ventricular wall thickness. The left ventricular systolic function is mildly decreased. The visually estimated ejection fraction is between 45-50%. Spectral Doppler is indicative of a pseudonormal filling pattern. E/E prime ratio is >15, consistent with elevated filling pressures. Evidence suggests grade II (moderate) diastolic dysfunction. Prior Study Comparison Changes noted compared to prior study dated: 05/28/2023. LV systolic function is improved Measurements 2D Linear Measurements IVSd: 1.22 0.6-0.9/0.6-1.0 cm LVIDd: 4.98 3.9-5.3/4.2-5.9 cm LVIDd Index: 2.86 2.4-3.2/2.2-3.1 cm/m2 LVIDs: 3.89 2.0-3.6 cm LVPWd: 1.21 0.7-1.1 cm LV Mass: 301.59 67-162/88-224 g LV Mass Index: 173.33 43-95/49-115 g/m2 LVOT Diam: 1.90 3.0+(-)1.3 cm 2D Systolic Function EF 4C: 52.30 >55% EF 2C: 42.70 >55% EF BiP: 48.90 >55% Mitral Valve MV Pk E: 1.02 MV PK A: 0.72 MV Decel Time: 178.00 E/A: 1.40 E'Lateral: 5.27 E'Medial: 4.54 E/E' Med: 22.50 E/E' Lat: 19.40 PHT: 52.00 MVA PHT: 4.23 Decel [place]: 5.76 LVOT LVOT Pk Master: 0.62 LVOT Mn Master: 0.46 LVOT VTI: 0.18 LVOT Pk Grad: 2.00 LVOT Mn Grad: 1.00 LVOT Diam: 1.90 LVOT Area: 2.84 Diastolic Function MV Pk E: 1.02 MV Pk A: 0.72 E/A: 1.40 E'Medial: 4.54 E/E' Med: 22.50 E' Laterial: 5.27 E/E' Lat: 19.40 Tricuspid Valve RA Press: 3.00 Updated in Other Vendor System with Status of Final Braulio Kraus MD electronically signed on 09/22/2023 5:27:26 PM with status of Final
--- NOTE | 2023-09-22 14:01 | HM_ITS ---
Conclusion: 1. Patient was monitored for total period of 3 days 2. Baseline was normal sinus with average heart of 65 beats per minute 3. No significant pauses noted 4. Frequent isolated PVCs noted with total burden of 2.6% 5. Occasional PACs noted with 7 short runs, longest of 9 beats 6. No patient reported events MTDD
== END ==
LOC: HO.CARD 13:57
PROVIDERS: PCP Internal Medicine; Visit Provider Internal Medicine
DX: I48.91 Unspecified atrial fibrillation (principal)
CPT/HCPCS: 93242; 93308

== ENCOUNTER → 2023-09-22 14:01 | Outpatient (BNV) | payer MEDICARE, BC, SELFPAY | PROVIDERS: PCP Internal Medicine; Visit Provider Internal Medicine Cardiovascular Disease | DX: I48.91 Unspecified atrial fibrillation (principal) | CPT/HCPCS: 93244; 93308 ==

== ENCOUNTER 2023-09-30 15:28 | Outpatient (AMB) | payer MEDICARE, BC, SELFPAY ==
[2023-09-30 15:31] VITALS: BP 114/72; PULSE 62; BMI 23.6
--- NOTE | 2023-09-30 15:31 | A.OFFVIS_ITS ---
Intake Vital Signs 09/30/23 15:31 Height 5 ft 6 in Weight 146 lb 6.191 oz BMI 23.6 BP 114/72 Blood Pressure Location Rt brachial Position Sitting Pulse 62 Pulse Source Pulse Oximeter Intake Visit Reasons: R/S 6 month follow up holter. Allergies codeine [Codeine] Adverse Reaction (Mild, Verified 09/30/23 15:35) vomiting Medication List - Last Reconciled 09/30/23 by MODESTA Tyler albuterol sulfate 90 mcg/actuation 2 puffs inhalation Q4-6H PRN 30 days amiodarone 200 mg PO DAILY 30 days apixaban (Eliquis) 5 mg PO BID atorvastatin 80 mg PO BEDTIME cholecalciferol (vitamin D3) (Vitamin D3) 25 mcg PO DAILY clopidogrel 75 mg PO DAILY cyanocobalamin (vitamin B-12) (Vitamin B-12) 1,000 mcg PO DAILY dexamethasone 6 mg PO DAILY ferrous sulfate 325 mg PO BEDTIME fluticasone propion-salmeterol 113-14 mcg/actuation 1 inh inhalation Q12H 30 days furosemide 40 mg See Protocol PO DAILY interferon beta-1a (Avonex) 30 mcg IM TU levothyroxine (Synthroid) 75 mcg PO DAILY melatonin 10 mg PO BEDTIME metoprolol succinate ER 25 mg PO DAILY omeprazole 20 mg PO QAM paroxetine HCl 40 mg PO BEDTIME tamsulosin 0.4 mg PO BEDTIME 30 days HPI R/S 6 month follow up holter. HPI Details Nai is a 68-year-old female past medical history of hypertension, hyperlipidemia, COPD, PAD, CAD the with left circumflex and RCA stents, NSTEMI in the setting of hypertensive crisis, heart failure with preserved EF, atrial fibrillation who was admitted to [facility] 05/2023 with increasing shortness of breath and fall. She sustained a fractured ulna. She was treated for decompensated heart failure with reduced EF. She was in AFib RVR and treated for rate control. She was put on amiodarone load. She also had issues with urosepsis/bacteremia which has since resolved. She was in a rehab facility for prolonged recovery. She is now home and has PT and OT. Following last visit she underwent a cardioversion then had Holter monitor and echocardiogram and presents for follow-up. Today she reports she is doing much better in the last few months. She is ambulating short distances with her walker. Her breathing is much improved since the cardioversion. She still has some shortness of breath with activity which she feels is from weakness and fatigue. She denies any heart palpitations. No chest discomfort at rest or with activity. No PND, orthopnea or edema. No lightheadedness, presyncope, syncope, falls. Taking all meds as directed. No bleeding issues with Eliquis use. [facility] Medical History History of smoking 30 or more pack years COPD (chronic obstructive pulmonary disease) Atherosclerotic cardiovascular disease PAF (paroxysmal atrial fibrillation) Atrial fibrillation with rapid ventricular response Left renal artery stenosis Personal history of nicotine dependence Cardiomyopathy Essential hypertension Asymmetric blood pressures Acute on chronic systolic (congestive) heart failure CHF (congestive heart failure) CAD (coronary artery disease) Multiple sclerosis Pulmonary nodules Peripheral arterial occlusive disease Surgical History History of endoscopy History of colonoscopy History of heart artery stent (~2018) Status post angioplasty with stent (~09/2018) S/P insertion of iliac artery stent (~02/2019) S/P cardiac cath (~12/2020) History of cholecystectomy (~02/2009) Family History Father No problems noted. Mother No problems noted. Brother Diabetes Social History Household Members: None Housing: House Are you a primary attending ambulatory care to a significant other at home: No Do you presently have visiting nurse or other home services: No Alcohol intake: never Comment: aware of trip hazard Patient Tobacco Use Status: Former Tobacco user Quit Date: 2017 Tobacco use type: Cigarette e-Cigarette/Vaping Use: Never Used Second Hand Smoke Exposure: No Advance Directives Date on File: 12/27/20 service: No Current occupational status: retired Cognitive needs: Yes (cane) Hearing needs: No Vision needs: Yes (reading glasses) Review of Systems Const Details: weakness. All systems reviewed & are unremarkable except as noted in HPI and below ENT Denies dizziness Card Denies chest pain, Denies chest pain at rest, Denies chest pain with activity, Denies rapid heart rate, Denies pedal edema, Denies edema, Denies leg edema, Denies lightheadedness, Denies palpitations, Denies dyspnea, Reports dyspnea on exertion (Much improved from what it had been) and Denies orthopnea Resp Denies cough, Denies dyspnea and Reports dyspnea on exertion (Much improved from what it had been) GI Denies hematochezia and Denies change in stool character Musc Reports abnormal gait (ambulates very slow with walker), Denies limited range of motion, Denies muscle cramps, Denies muscle weakness, Denies numbness, Denies radiating pain into limb, Denies stiffness and Denies tingling Neuro Reports abnormal gait (ambulates very slow with walker), Denies dizziness, Denies numbness and Denies tingling Endo Denies palpitations Physical Exam Vital Signs: Last Vital Signs Pulse 62 09/30/23 15:31 BP 114/72 09/30/23 15:31 BMI result Body Mass Index 23.6 Const General: cooperative, healthy appearing, comfortable and no acute distress Orientation/consciousness: patient oriented x3 Neck Neck: Yes normal visual inspection Resp Effort & Inspection: normal respiratory effort Auscultation: clear to auscultation bilaterally, no crackles, no rales, no rhonchi and no wheezes Cardio Jugular venous distension: no JVD Rate: regular rate Rhythm: regular rhythm Heart sounds: S1 normal heart sound present, S2 normal heart sound present, no murmurs and no rubs Neuro General: patient oriented x3 Extrem General: Yes normal to inspection, No no pedal edema and No calf tenderness Psych Appearance: grossly normal Mental Status: mental status grossly normal Speech and movement: Normal speech and movement present Office Procedures EKG Details: Today, read by me, sinus rhythm, 1 PVC, can not exclude anterior infarct with septal Q-wave, overall no change from prior EKG, QTC checked by me 468 milliseconds, rate 62 [id number], Complete Assessment & Plan Assessment & Plan (1) Atrial fibrillation, persistent: Code(s): I48.19 - Other persistent atrial fibrillation Plan: History of atrial fibrillation. Noted to have AFib RVR at 05/2023 hospital admission which was treated with rate control. She was then started on amiodarone to help with rhythm control. An echocardiogram done 05/28/2023 showed EF 20-25%, left atrium severely dilated, basal inferior and inferior septum akinetic. The EF has reduced from prior echocardiogram 11/01/2022 when EF was 59%. A nuclear stress test had been done 02/07/2023 showing normal myocardial perfusion imaging. Her EKG on last visit was showing atrial fibrillation with rate 76. She was experiencing much shortness of breath with activity. No heart palpitations. She had completed the amiodarone load. He underwent cardioversion with Dr. Lizama on 08/01/2023 with successful conversion to sinus rhythm. She was continued on amiodarone, metoprolol and Eliquis was continued without interruption. A Holter monitor was done on 09/22 2 for 3 days shows sinus rhythm with average heart rate 65, frequent isolated PVCs, 2.6% of time, occasional PACs, short runs, longest 9 beats. Echocardiogram done on 09/22/2023 showed EF up to 45-50%, grade 2 diastolic dysfunction. Today she reports that her breathing has greatly improves since the cardioversion. Overall she is doing much better in his home with PT and OT. She still has some issues with generalized weakness. Continue current med management at present. Cardiology follow-up in 3 months, sooner if needed. (2) Cardiomyopathy: Comment: She has cardio myopathy, secondary to coronary artery disease. Has low ejection fraction. Also has had atrial fibrillation which is now controlled after cardioversion. Actively followed. Up by Cardiology Code(s): I42.9 - Cardiomyopathy, unspecified Qualifiers: Cardiomyopathy type: other Qualified Code(s): I42.8 - Other cardiomyopathies Plan: As above. EF reduced to 20-25%. Repeat echo after cardioversion now showing EF 45-50%. She does not appear fluid overloaded on examination. She is on Lasix 40 mg daily. She may reduce her dose down to 20 mg daily and watch for signs of swelling. Go back to 40 if she develops swelling in her legs. Continue met oprolol XL for neurohormonal modulation. She did have SUSAN last summer with creatinine as high as 3.14. Last known creatinine 0.98 on 06/10/2023. Will hold off on the addition of Andrew/Arb at present time BP currently 114/72 (3) CHF (congestive heart failure): Comment: She was treated for congestive heart failure/bilateral pleural effusions, in June of this year. She stays on diuretic therapy is doing fairly well at this time. Code(s): I50.9 - Heart failure, unspecified Plan: In the setting of AFib RVR. Diuresed with improvement in condition. Signs and symptoms of heart failure reviewed with her. (4) Essential hypertension: Code(s): I10 - Essential (primary) hypertension Plan: Blood pressure well controlled at present. (5) S/P cardiac cath: Onset Date: ~12/2020 Comment: (12/27/20 - Dr. Garcia, [facility]: Lm normal, mid LAD, proximal 60%, 2nd diag prox 75%, LCx prox stent patent, Lcx mid 65%, 1st OM 40%, RCA prox stent patent, mid RCA prox 70% - inferior/ inferolateral WMA on echo not explained by anatomy) Code(s): Z98.890 - Other specified postprocedural states (6) S/P cardiac catheterization: Comment: Last cardiac catheterization 04/02/2023 showing mid LAD 30% stenosis, proximal circumflex stent patent, mid circumflex 80% stenosis and stent placed, RCA proximal stent patent, mid RCA 50% stenosis Code(s): Z98.890 - Other specified postprocedural states Plan: Per Dr. Lizama last know she should continue on Plavix due to the extent of her vascular disease (7) CAD (coronary artery disease): Comment: (Hx 2 MIs 2018 & 2020 - Hx LCx & RCA stents 2019 - patent on recent 12/2020 cath) Code(s): I25.10 - Atherosclerotic heart disease of [place] coronary artery without angina pectoris Plan: No reports of anginal sounding symptoms. Continue Plavix, atorvastatin, metoprolol XL Plan Time spent with chart review, documentation, interview, assess Coding Level of Care Code Est Pt Level 4 (98068) Diagnoses Atrial fibrillation, persistent I48.19 Other cardiomyopathy I42.8 Cardiomyopathy type: other CHF (congestive heart failure) I50.9 Essential hypertension I10 S/P cardiac cath Z98.890 CAD (coronary artery disease) I25.10 CPT Codes EKG - CPT: [id number], Complete ([id number]) Time Spent (min) 28
== END 2023-09-30 16:03 | disposition home or self-care (01) ==
PROVIDERS: PCP Internal Medicine; Visit Provider Nurse Practitioner Family
DX: I48.19 Other persistent atrial fibrillation (principal); I42.8 Other cardiomyopathies; I50.9 Heart failure, unspecified; I10 Essential (primary) hypertension; Z98.890 Other specified postprocedural states; I25.10 Atherosclerotic heart disease of native coronary artery without angina pectoris
CPT/HCPCS: 93010; 99214

== ENCOUNTER → 2023-09-30 15:28 | Outpatient (BNVA) | payer MEDICARE, BC, SELFPAY | PROVIDERS: PCP Internal Medicine; Visit Provider Nurse Practitioner Family | DX: I48.19 Other persistent atrial fibrillation (principal); I42.8 Other cardiomyopathies; I11.0 Hypertensive heart disease with heart failure; I50.9 Heart failure, unspecified; I25.10 Atherosclerotic heart disease of native coronary artery without angina pectoris; Z98.890 Other specified postprocedural states | CPT/HCPCS: 93005; 99212 ==

== ENCOUNTER 2023-10-15 11:59 | Inpatient (IN) | payer MEDICARE, BC, SELFPAY ==
[2023-10-15] VITALS (10 sets, daily range): BP systolic 91–131; BP diastolic 51–80; PULSE 65–110; RESP 12–20; TEMP 36.1–39.3; O2SAT 94–100; BMI 24.2
--- NOTE | 2023-10-15 | ECG_ITS ---
Test Reason : EKG CHANGES Blood Pressure : / mmHG Vent. Rate : 091 BPM Atrial Rate : 091 BPM P-R Int : 202 ms QRS Dur : 122 ms QT Int : 490 ms P-R-T Axes : 088 033 119 degrees QTc Int : 602 ms Normal sinus rhythm Non-specific intra-ventricular conduction delay Minimal voltage criteria for LVH, may be normal variant ( Pierre product ) ST & T wave abnormality, consider anterolateral ischemia Abnormal ECG When compared with ECG of 01-AUG-2023 13:59, Significant changes have occurred Referred By: Erick Eason Electronically Signed By:MADDIE ARIAS MD
--- NOTE | ~2023-10-15 | CT_ITS ---
EXAMINATION: CT ABDOMEN AND PELVIS WITHOUT CONTRAST CLINICAL INFORMATION: Lower abdominal pain, tachycardia, hypotension and fever COMPARISON: CT abdomen pelvis 06/11/2023 TECHNIQUE: Multidetector volumetric imaging was performed from the superior aspect of the liver through the pubic symphysis. Sagittal and coronal reformatted images were obtained on the technologist's workstation. This CT examination was performed using dose optimization techniques as appropriate, variously including the following: *Automated exposure control *Adjustment of mA and/or kV according to patient size (this includes techniques or standardized protocols for targeted exams where dose is matched to indication/reason for exam; i.e. extremities or head) *Use of iterative reconstruction technique DLP: 377 mGy-cm FINDINGS: LUNG BASES: The visualized lung bases are unremarkable. Right middle lobe atelectasis is present. Previously seen bilateral pleural effusions have resolved LIVER, GALLBLADDER, AND BILIARY TREE: The liver is normal in size, shape, and attenuation. No focal hepatic lesion or biliary ductal dilatation is present. Status post cholecystectomy. PANCREAS: Unremarkable. SPLEEN: Unremarkable. ADRENAL GLANDS: Unremarkable. KIDNEYS AND URETERS: Compared to the prior study, there is new bilateral pelvocaliectasis, left greater than right. The proximal ureters are mildly dilated but no obstructing calculi are seen. There is perinephric stranding seen bilaterally, left greater than right, new/increased when compared to the prior study. The kidneys are normal in size, shape, and attenuation. No calculi seen. BLADDER: A Hou catheter is present in the bladder. GASTROINTESTINAL TRACT: The small and large bowel are unremarkable. The appendix is unremarkable. ABDOMINAL WALL: No significant hernia is appreciated. LYMPH NODES: Shotty retroperitoneal lymph nodes are seen but there is no gross retroperitoneal lymphadenopathy. VASCULAR: Calcific atherosclerotic changes are present in the aorta and iliofemoral vessels. Significant peripheral vascular disease is suspected with probable tight stenosis in proximal right external iliac artery among other areas. There is no evidence of an abdominal aortic aneurysm. PELVIC VISCERA: The uterus and adnexa are unremarkable. OSSEOUS STRUCTURES: Mild degenerative changes are present throughout the spine most marked at L5-S1. CT/CT abdomen pelvis wo IV con IMPRESSION: 1. New bilateral pelvocaliectasis, left greater than right with perinephric stranding, left greater than right. No obstructing calculi are seen. Findings could be secondary to pyelonephritis. Please correlate with urinalysis. 2. Other incidental findings as described above. Fleischner guidelines were followed.
--- NOTE | ~2023-10-15 | XR_ITS ---
EXAMINATION: XR CHEST CLINICAL INFORMATION: Sepsis. Weakness. COMPARISON: Previous chest x-ray June 2023 TECHNIQUE: Frontal view of the chest was obtained. FINDINGS: The cardiac silhouette is slightly enlarged but stable. Hilar and mediastinal contours are normal. Minimal scarring or subsegmental atelectasis at the right lung base. No pleural effusion or pneumothorax. No acute bone abnormality. XR/XR chest 1V IMPRESSION: Minimal scarring or subsegmental atelectasis at the right base.
--- NOTE | 2023-10-15 12:20 | ED_ITS ---
HPI - General Adult General Chief complaint: Urogenital-Female Stated complaint: LOW ABD PAIN X7 DAYS PER EMS Time Seen by Provider: 10/15/23 12:14 Source: patient and EMS Mode of arrival: EMS Limitations: no limitations History of Present Illness HPI narrative: 68-year-old female history of COPD, cardiac catheterizations, pleural effusions, CHF, atrial fib anticoagulated on apixaban, peripheral artery disease, hypertension presents to the emergency department for evaluation of suprapubic discomfort fatigue, malaise, nausea, urinary frequency, urgency and dysuria. History of UTIs this feels similar. Denies vomiting, diarrhea, headache, vision changes, chest pain, shortness of breath, recent sick contacts. Related Data Home Medications Medication Instructions Recorded Confirmed interferon beta-1a 30 mcg/0.5 mL 30 mcg IM TU 10/03/20 09/30/23 intramuscular pen kit (Avonex) paroxetine HCl 40 mg tablet 40 mg PO BEDTIME 10/03/20 09/30/23 cholecalciferol (vitamin D3) 25 25 mcg PO DAILY 12/20/20 09/30/23 mcg (1,000 unit) tablet (Vitamin D3) cyanocobalamin (vitamin B-12) 1,000 mcg PO DAILY 12/20/20 09/30/23 1,000 mcg tablet (Vitamin B-12) melatonin 10 mg tablet 10 mg PO BEDTIME Insomnia 01/13/23 09/30/23 levothyroxine 50 mcg tablet 75 mcg PO DAILY 09/02/23 09/30/23 (Synthroid) metoprolol succinate 50 mg 25 mg PO DAILY 09/02/23 09/30/23 tablet,extended release 24 hr Previous Rx's Medication Instructions Recorded apixaban 5 mg tablet (Eliquis) 5 mg PO BID #180 tabs 11/28/22 albuterol sulfate 90 mcg/actuation 2 puff inhalation Q4-6H PRN 05/24/23 aerosol inhaler shortness of breath or wheezing 30 days #8.5 grams omeprazole 20 mg capsule,delayed 20 mg PO QAM #90 caps 05/25/23 release tamsulosin 0.4 mg capsule 0.4 mg PO BEDTIME 30 days #30 caps 06/13/23 ferrous sulfate 325 mg (65 mg 325 mg PO BEDTIME #90 tabs 07/03/23 iron) tablet dexamethasone 6 mg tablet 6 mg PO DAILY #5 tabs 07/07/23 atorvastatin 80 mg tablet 80 mg PO BEDTIME #90 tabs 07/28/23 amiodarone 200 mg tablet 200 mg PO DAILY 30 days #30 tabs 08/28/23 clopidogrel 75 mg tablet 75 mg PO DAILY #90 tabs 09/02/23 fluticasone 113 mcg-salmeterol 14 1 inh inhalation Q12H copd 30 days 09/02/23 mcg/actuation breath activated #1 ea powdr furosemide 20 mg tablet 40 mg PO DAILY #60 tabs 09/24/23 Allergies Allergy/AdvReac Type Severity Reaction Status Date / Time codeine [Codeine] AdvReac Mild vomiting Verified 09/30/23 15:35 Review of Systems 2 Review of Systems: Constitutional : No Weight loss, No Fever, No Chills, + Fatigue, + Malaise ENT/Mouth : No sore throat, No Rhinorrhea Eyes: No Eye Pain, No Swelling, No Redness Cardiovascular : No Chest Pain, No SOB, No Dyspnea on Exertion, No Orthopnea, No Edema, No Palpitations Respiratory : No Cough, No Sputum, No Wheezing Gastrointestinal : + Nausea, No Vomiting, No Diarrhea, No Constipation, + abdominal Pain, No Hematochezia, No Melena Genitourinary : No Dysuria, No Urinary Frequency, No Hematuria, Musculoskeletal : No joint pain, No Myalgias, No Joint Swelling Skin : No Skin Lesions, No rash Neuro : No Weakness, No Numbness, No Dizziness, No Headache Psych : No Anxiety/Panic, No Depression All other systems reviewed and are negative Yes all other systems are reviewed and are negative [facility] Past Medical History Attestation statement: The following information was validated with the patient. Source: old records reviewed and nursing notes reviewed Medical History History of smoking 30 or more pack years COPD (chronic obstructive pulmonary disease) Atherosclerotic cardiovascular disease PAF (paroxysmal atrial fibrillation) Atrial fibrillation with rapid ventricular response Left renal artery stenosis Personal history of nicotine dependence Cardiomyopathy Essential hypertension Asymmetric blood pressures Acute on chronic systolic (congestive) heart failure CHF (congestive heart failure) CAD (coronary artery disease) Multiple sclerosis Pulmonary nodules Peripheral arterial occlusive disease Surgical History History of endoscopy History of colonoscopy History of heart artery stent (~2018) Status post angioplasty with stent (~09/2018) S/P insertion of iliac artery stent (~02/2019) S/P cardiac cath (~12/2020) History of cholecystectomy (~02/2009) Family History Family History Father No problems noted. Mother No problems noted. Brother Diabetes Social History Social History Household Members: None Housing: House Are you a primary childcare director to a significant other at home: No Do you presently have visiting nurse or other home services: No Alcohol intake: never Comment: aware of trip hazard Patient Tobacco Use Status: Former Tobacco user Quit Date: 2017 Tobacco use type: Cigarette Smoked in Last 30 Days: No e-Cigarette/Vaping Use: Never Used Second Hand Smoke Exposure: No Use of substances other than those prescribed or required for medical reasons: No Advance Directives: No Advance Directives Date on File: 12/27/20 Patient : No service: No Current occupational status: retired Cognitive needs: Yes (cane) Hearing needs: No Vision needs: Yes (reading glasses) Physical Exam ED Vital Signs: Vital Signs - 24 hr 10/15/23 12:22 10/15/23 12:51 10/15/23 13:04 Temperature 102.7 F H 100.9 F H 100.4 F Pulse Rate 91 85 78 Respiratory Rate 17 12 12 Blood Pressure 93/63 105/70 119/77 Pulse Oximetry 96 95 96 Oxygen Delivery Method Room Air Room Air Room Air BMI result Body Mass Index 24.2 Patient noted to be hypotensive, tachycardic and febrile Appearance: Alert.? Oriented X3. patient not well-appearing, skin flushed. Head: Normocephalic, atraumatic, no step-offs or deformities Eyes: Pupils equal, round and reactive to light.? CVS: Normal heart rate and rhythm.? Pulses normal.? Respiratory: No respiratory distress.? Breath sounds normal.? Abdomen: Soft and suprapubic discomfort on palpation.? Skin: Skin warm and dry.? Normal skin color.? Normal skin turgor.? Extremities: No lower extremity edema.? No calf ttp. 5/5 strength to bilateral upper and lower extremities Back: no CVA tenderness bilaterally Neuro: Oriented X 3.? No motor deficit.? No sensory deficit. CN 2-12 intact Course Reevaluation(s) Reevaluation #1: CBC no acute findings requiring intervention however is noted to have a neutrophil predominance. Chemistry acute kidney injury BUN 54, creatinine 3.19 this is deviating significantly from patient's baseline. Fluids ordered. This is likely secondary to infection. UA with evidence of infection large leukocyte esterases, 4+ bacteria. CT pending. Time: 13:19 Reevaluation #2: CT scan pending to rule out obstructive uropathy. Hospitalist aware of pending CT. Plan hospital admission. Time: 13:28 Medications Administered Discontinued Medications Generic Name Dose Route Start Last Admin Trade Name Freq PRN Reason Stop Dose Admin Acetaminophen 975 mg 10/15/23 12:53 10/15/23 12:55 Acetaminophen 325 Mg Tablet PO 10/15/23 12:54 975 mg ONCE ONE Administration Sodium Chloride 1,857 mls @ 1,857 mls/hr 10/15/23 12:25 10/15/23 12:48 Ns 30 ml/kg infuse over 1 hr (1857 ml) 10/15/23 13:24 1,857 mls/hr IV Administration .Q1H STA Ceftriaxone Sodium 1 gm/ 50 mls @ 100 mls/hr 10/15/23 12:25 10/15/23 13:12 Sodium Chloride IV 10/15/23 12:54 Infused ONCE ONE Infusion Ibuprofen 600 mg 10/15/23 12:39 10/15/23 12:53 Ibuprofen 600 Mg Tablet PO 10/15/23 12:40 Not Given ONCE ONE Medical Decision Making Medical Decision Making [facility] Narrative: 1225 68-year-old female presents for evaluation of suprapubic discomfort, nausea, urinary symptoms for the past week. History of UTI physical exam with suprapubic discomfort on palpation. Tachycardic. /Skin Normoactive bowel sounds. Patient appears sick. No CVA tenderness. Patient is also noted to be febrile and hypotensive. history and physical exam concerning for UTI versus cystitis. Unlikely pyelonephritis, obstructing uropathy. Other differentials include kidney stones, metabolic derangements, dehydration, viral illness. No signs of acute abdomen. history and physical exam concerning for urosepsis. Sepsis alert richardson just overhead and a sepsis focused exam was done upon arrival of patient ( at this time 1225 infection suspected. Plan at this time labs, Urine. Differential Diagnosis Differential Diagnoses: The differential diagnosis associated with the presentation includes history and physical exam concerning for UTI versus cystitis. Unlikely pyelonephritis, obstructing uropathy. Other differentials include kidney stones, metabolic derangements, dehydration, viral illness. No signs of acute abdomen. Unlikely systemic illness. Admission/Observation Consideration of admission/observation: Escalation of care including admission/observation considered possible Lab Data MDM Lab Attestation statement: I reviewed the patient's lab results. 10/15/23 12:43 10/15/23 12:43 Labs: Lab Results 10/15/23 Range/Units 12:43 WBC 10.7 (4.8-10.8) X10*3/uL RBC 4.64 D (4.20-5.50) X10*6/uL Hgb 12.1 D (12.0-16.0) g/dl Hct 36.6 L (37.0-47.0) % MCV 78.9 L (80.0-98.0) fL MCH 26.1 L (27.0-33.0) pg MCHC 33.1 (31.0-35.0) g/dl RDW 16.9 H (11.0-16.0) % Plt Count 191 (160-400) X10*3/uL MPV 9.9 (9.4-12.3) fL Immature Gran % (Auto) 0.7 H (0.0-0.4) % Neut % (Auto) 95.2 H (45-73) % Lymph % (Auto) 2.2 L (20-40) % [place] % (Auto) 1.8 L (2-11) % Eos % (Auto) 0.0 (0-4) % Baso % (Auto) 0.1 (0-2) % Lymph # (Auto) 0.2 L (1.2-4.9) X10*3/uL [place] # (Auto) 0.2 (0.1-1.2) X10*3/uL Eos # (Auto) 0.0 (0.0-0.4) X10*3/uL Baso # (Auto) 0.0 (0.0-0.2) X10*3/uL Abs Immat Gran (auto) 0.07 H (0.00-0.03) X10*3/uL Absolute Neuts (auto) 10.2 H (2.0-8.3) x10*3/uL Absolute Nucleated RBC 0.000 (0.0-0.012) X10*3/uL Nucleated RBC % (auto) 0.0 (0.0-0.2) /100WBC Sodium 138 (135-145) mmol/L Potassium 3.3 (3.3-5.1) mmol/L Chloride 101 (96-108) mmol/L Carbon Dioxide 23 (22-29) mmol/L Anion Gap 17 (12-20) BUN 54 H (9-16) mg/dL Creatinine 3.19 H (0.5-1.4) mg/dL Estim Creat Clear Calc 13.5 Estimated GFR 14 Random Glucose 91 (60-115) mg/dL Lactic Acid 1.7 (0.5-2.0) mmol/L Calcium 9.7 D (8.4-10.2) mg/dL Magnesium 1.6 (1.6-2.6) mg/dL Total Bilirubin 0.8 (0.0-1.0) mg/dL AST 21 (5-31) U/L ALT 18 (0-31) U/L Alkaline Phosphatase 92 (39-117) U/L Total Protein 7.0 (6.5-8.0) g/dL Albumin 3.4 L (3.5-5.0) g/dL Urine Color Yellow Urine Appearance Turbid Urine pH 5.5 (5.0-9.0) Ur Specific [place] 1.010 (1.005-1.025) Urine Protein 30 (1+) H (Neg-Trace) mg/dL Urine Glucose (UA) Negative (Negative) mg/dL Urine Ketones Negative (Negative) mg/dL Urine Blood Large (3+) H (Negative) Urine Nitrite Negative (Negative) Ur Leukocyte Esterase Large (3+) H (Negative) Urine RBC 0-2 (0-2) /HPF Urine WBC >50 H (0-5) /HPF Ur Squamous Epith Cells 0-2 (0-2) /HPF Urine Bacteria 4+ (None Seen) Hyaline Casts 0-2 (0-2) /LPF Critical Care Time Critical Care Time Critical Care Time: Yes Total Critical Care Time: 45 Attestation: I attest to this time spent taking care of the patient, obtaining history, physical, reviewing labs, imaging, speaking to my attending, speaking to specialist. Discharge Plan Discharge Clinical Impression: Sepsis, UTI (urinary tract infection), SUSAN (acute kidney injury) Patient Disposition: Still a Patient Prescriptions: No Action Eliquis 5 mg tablet 5 mg PO BID Qty: 180 2RF albuterol sulfate 90 mcg/actuation HFA aerosol inhaler 2 puff inhalation Q4-6H PRN (Reason: shortness of breath or wheezing) 30 Days Qty: 8.5 2RF omeprazole 20 mg capsule,delayed release(DR/EC) 20 mg PO QAM Qty: 90 1RF ferrous sulfate 325 mg (65 mg iron) tablet 325 mg PO BEDTIME Qty: 90 0RF atorvastatin 80 mg tablet 80 mg PO BEDTIME Qty: 90 1RF amiodarone 200 mg tablet 200 mg PO DAILY 30 Days Qty: 30 5RF clopidogrel 75 mg tablet 75 mg PO DAILY Qty: 90 3RF furosemide 20 mg tablet 40 mg PO DAILY Qty: 60 1RF Protocol: Hold for SBP< HOLD for SBP < : 90 cyanocobalamin (vitamin B-12) [Vitamin B-12] 1,000 mcg Tablet 1,000 mcg PO DAILY cholecalciferol (vitamin D3) [Vitamin D3] 25 mcg (1,000 unit) Tablet 25 mcg PO DAILY melatonin 10 mg Tablet 10 mg PO BEDTIME tamsulosin 0.4 mg Capsule 0.4 mg PO BEDTIME 30 Days Qty: 30 0RF dexamethasone 6 mg Tablet 6 mg PO DAILY Qty: 5 0RF paroxetine HCl 40 mg tablet 40 mg PO BEDTIME Avonex 30 mcg/0.5 mL pen injector kit 30 mcg IM TU levothyroxine [Synthroid] 50 mcg tablet 75 mcg PO DAILY metoprolol succinate 50 mg tablet extended release 24 hr 25 mg PO DAILY fluticasone propion-salmeterol 113-14 mcg/actuation aerosol powdr breath activated 1 inh inhalation Q12H 30 Days Qty: 1 5RF
[2023-10-15 12:48] LABS: MANUAL DIFF FLAG NO
[2023-10-15] MEDS: 0.9 % Sodium Chloride 1,857 ML 1857 ML IV (12:48)
[2023-10-15 12:50] LABS: Appearance Urine Turbid; Color Urine Yellow; Glucose Urine UA Negative (Negative); Leukocyte Esterase Urine Large (3+) (Negative); Nitrite Urine Negative (Negative); PH 5.5 (5.0-9.0); UMIC TRIGGER UACC YES; Urine Blood Large (3+) (Negative); Urine Ketones Negative (Negative); Urine Protein 30 (1+) mg/dL (Neg-Trace)
[2023-10-15] MEDS: cefTRIAXone sodium 1 GM in 0.9 % Sodium Chloride 50 ML IV (12:50)
[2023-10-15 12:53] LABS: Basophils Percent Auto 0.1 % (0-2); Hematocrit 36.6 % (37.0-47.0); Hemoglobin 12.1 g/dl (12.0-16.0); Imm Gran Abs Auto 0.07 X10*3/uL (0.00-0.03); Imm Gran Pct Auto 0.7 % (0.0-0.4); Lymphocytes Absolute Auto 0.2 X10*3/uL (1.2-4.9); Lymphocytes Percent Auto 2.2 % (20-40); Mean Corpuscular HGB Conc 33.1 g/dl (31.0-35.0); Mean Corpuscular Hemoglobin 26.1 pg (27.0-33.0); Mean Corpuscular Volume 78.9 fL (80.0-98.0); Mean Platelet Volume 9.9 fL (9.4-12.3); Monocytes Absolute Auto 0.2 X10*3/uL (0.1-1.2); Monocytes Percent Auto 1.8 % (2-11); Neutrophils Absolute Auto 10.2 x10*3/uL (2.0-8.3); Neutrophils Percent Auto 95.2 % (45-73); Platelet Count 191 X10*3/uL (160-400); Red Blood Count 4.64 X10*6/uL (4.20-5.50); Red Cell Distribution Width 16.9 % (11.0-16.0); SCAN SMEAR FLAG 1; White Blood Count 10.7 X10*3/uL (4.8-10.8)
[2023-10-15] MEDS: Acetaminophen 325 MG TABLET 975 MG PO (12:55)
[2023-10-15 12:58] LABS: Bacteria Urine 4+ (None Seen); Hyaline Casts Urine 0-2 /LPF (0-2); RBC Urine 0-2 /HPF (0-2); Squamous Epithelial Cell Urine 0-2 /HPF (0-2); UACC Culture Trigger YES; WBC Urine >50 /HPF (0-5)
[2023-10-15 13:02] LABS: Lactic Acid 1.7 mmol/L (0.5-2.0)
[2023-10-15 13:07] LABS: Alanine Aminotransferase 18 U/L (0-31); Albumin Level 3.4 g/dL (3.5-5.0); Alkaline Phosphatase 92 U/L (39-117); Anion Gap 17 (12-20); Aspartate Amino Transferase 21 U/L (5-31); Bilirubin Total 0.8 mg/dL (0.0-1.0); Blood Urea Nitrogen 54 mg/dL (9-16); Calcium 9.7 mg/dL (8.4-10.2); Carbon Dioxide 23 mmol/L (22-29); Chloride 101 mmol/L (96-108); Creatinine Clr Calc Pharmacy 13.5; Estimated Glomerular Filt Rate 14; Glucose Random 91 mg/dL (60-115); Magnesium 1.6 mg/dL (1.6-2.6); Potassium 3.3 mmol/L (3.3-5.1); Sodium 138 mmol/L (135-145)
--- NOTE | 2023-10-15 13:07 | PC.NURSE ---
Pt WINTER from home, has had urinary incontinence and episodes of confusion x7 days. Pt reports that these symptoms are similar to when she has bladder infections. Pt is alert and oriented x3 at this time, is able to verbalize how she is feeling. Respirations are even and unlabored, skin is pink hot and dry, consistent with fever. Upon arrival, rectal temp was taken, found to be102.7. Subsequently mahoney cath was inserted with temp sensing. Urine output was cloudy and yellow with a strong scent. core temp 100.8. Pt had initial output of about 375 mls. Pt denies any CP, SOB, dizziness. Pt does endorse upper pubic pain which she has felt in the past. This RN placed 20g IV in RAC, medications administered per MAR. Pt now resting on stretcher, appears more comfortable than initial encounter. No apparent distress at this time
--- NOTE | 2023-10-15 13:31 | PM.IMHP ---
History of Present Illness Date of Service: 10/15/23 Chief Complaint: ams, suprapubic pain 68F PMH CAD, urinary retention and recurrent uti, chronic systolic chf, persistent afib, CKD II, htn, hypothyroid, copd presented with suprapubic fullness, fever, ams. Patient reports feeling unwell for about 1 week. With suprapubic fullness and dysuria. As well as frequency. About 2 days prior to presentation started to have subjective fevers, significant decrease in appetite, felt so unwell on day of presentation used life alert to call ambulance. In ED found to be septic with fever, tachycardia, positive UA, natalie. Review of Systems Review of Systems: Yes all other systems are reviewed and are negative [facility] Medical History History of smoking 30 or more pack years COPD (chronic obstructive pulmonary disease) Atherosclerotic cardiovascular disease PAF (paroxysmal atrial fibrillation) Atrial fibrillation with rapid ventricular response Left renal artery stenosis Personal history of nicotine dependence Cardiomyopathy Essential hypertension Asymmetric blood pressures Acute on chronic systolic (congestive) heart failure CHF (congestive heart failure) CAD (coronary artery disease) Multiple sclerosis Pulmonary nodules Peripheral arterial occlusive disease Family History Father No problems noted. Mother No problems noted. Brother Diabetes Surgical History History of endoscopy History of colonoscopy History of heart artery stent (~2018) Status post angioplasty with stent (~09/2018) S/P insertion of iliac artery stent (~02/2019) S/P cardiac cath (~12/2020) History of cholecystectomy (~02/2009) Social History Household Members: None Housing: House Are you a primary healthcare management consultant to a significant other at home: No Do you presently have visiting nurse or other home services: No Alcohol intake: never Comment: aware of trip hazard Patient Tobacco Use Status: Former Tobacco user Quit Date: 2017 Tobacco use type: Cigarette Smoked in Last 30 Days: No e-Cigarette/Vaping Use: Never Used Second Hand Smoke Exposure: No Use of substances other than those prescribed or required for medical reasons: No Advance Directives: No Advance Directives Date on File: 12/27/20 Nutrition Risks: No Nutritional Risk Patient : No service: No Current occupational status: retired Cognitive needs: Yes (cane) Hearing needs: No Vision needs: Yes (reading glasses) Meds Allergies Allergy/AdvReac Type Severity Reaction Status Date / Time codeine [Codeine] AdvReac Mild vomiting Verified 09/30/23 15:35 Home Medications Medication Instructions Recorded Confirmed Last Taken Type interferon beta-1a 30 mcg/0.5 mL 30 mcg IM WE 10/03/20 10/15/23 09/13/21 History intramuscular pen kit (Avonex) paroxetine HCl 40 mg tablet 40 mg PO BEDTIME 10/03/20 10/15/23 09/12/21 History cholecalciferol (vitamin D3) 25 25 mcg PO DAILY 12/20/20 10/15/23 09/13/21 History mcg (1,000 unit) tablet (Vitamin D3) cyanocobalamin (vitamin B-12) 1,000 mcg PO DAILY 12/20/20 10/15/23 09/13/21 History 1,000 mcg tablet (Vitamin B-12) melatonin 10 mg tablet 10 mg PO BEDTIME Insomnia 01/13/23 10/15/23 Unknown History levothyroxine 50 mcg tablet 50 mcg PO DAILY 09/02/23 10/15/23 Unknown History (Synthroid) metoprolol succinate 50 mg 50 mg PO DAILY 09/02/23 10/15/23 Unknown History tablet,extended release 24 hr Physical Exam Vital Signs and Narrative: Vital Signs: Last Vital Signs Temp 100.4 F 10/15/23 13:04 Pulse 78 10/15/23 13:04 Resp 12 10/15/23 13:04 BP 119/77 10/15/23 13:04 Pulse Ox 96 10/15/23 13:04 O2 Del Method Room Air 10/15/23 13:04 BMI result Body Mass Index 24.2 General: lethargic O X 3, no acute distress Resp: CTA bilateral, no accessory muscles used CVS: S1,S2,RRR GI: soft, non tender, non distended Neuro: motor grossly intact, alert Psych: appropriate affect, appropriate insight Results Labs 10/15/23 12:43 10/15/23 12:43 Labs: Laboratory Results - last 24 hr 10/15/23 12:43 MCV 78.9 L MCH 26.1 L MCHC 33.1 RDW 16.9 H Plt Count 191 MPV 9.9 Immature Gran % (Auto) 0.7 H Neut % (Auto) 95.2 H Lymph % (Auto) 2.2 L [place] % (Auto) 1.8 L Eos % (Auto) 0.0 Baso % (Auto) 0.1 Lymph # (Auto) 0.2 L [place] # (Auto) 0.2 Eos # (Auto) 0.0 Baso # (Auto) 0.0 Abs Immat Gran (auto) 0.07 H Absolute Neuts (auto) 10.2 H Absolute Nucleated RBC 0.000 Nucleated RBC % (auto) 0.0 Anion Gap 17 Estim Creat Clear Calc 13.5 Estimated GFR 14 Random Glucose 91 Lactic Acid 1.7 Calcium 9.7 D Magnesium 1.6 Total Bilirubin 0.8 AST 21 ALT 18 Alkaline Phosphatase 92 Total Protein 7.0 Albumin 3.4 L Urine Color Yellow Urine Appearance Turbid Urine pH 5.5 Ur Specific [place] 1.010 Urine Protein 30 (1+) H Urine Glucose (UA) Negative Urine Ketones Negative Urine Blood Large (3+) H Urine Nitrite Negative Ur Leukocyte Esterase Large (3+) H Urine RBC 0-2 Urine WBC >50 H Ur Squamous Epith Cells 0-2 Urine Bacteria 4+ Hyaline Casts 0-2 Assessment and Plan (1) Sepsis: Status: Acute Plan 68F PMH CAD, urinary retention and recurrent uti, chronic systolic chf, persistent afib, CKD II, htn, hypothyroid, copd presented with suprapubic fullness, fever, ams Sepsis and acute metabolic encephalopathy due to urinary tract infection patient with history of urinary retention Given 30 cc/kilos isotonic fluids IV ceftriaxone Follow-up cultures Hou placed, pvr not significant Acute kidney injury on CKD 2 IV fluids Monitor Chronic systolic CHF Monitor closely while hydrating Persistent atrial fibrillation Amiodarone, apixaban, Toprol Hypothyroid Synthroid COPD Continue inhaler DVT prophylaxis-on apixaban Full code Patient with sepsis due to urinary tract infection, significant dehydration leading to acute kidney injury requiring IV fluids, close monitoring, cultures pending, likely require at least 2 midnights inpatient Quality Stroke Does the patient have a stroke diagnosis?: No VTE Prior VTE?: No VTE Risk Level:: Medical - moderate - high VTE Device Contraindication: Treatment Not Indicated VTE Drug Contraindication: N/A - Med Ordered
[2023-10-15 14:01] LABS: COVID-19 Test Negative (Negative); IDNOW Serial# 08D9AD1C; IDNOW Serial# BCCEAD1C; Influenza A Negative (Negative); Influenza B2 Negative (Negative)
[2023-10-15] MEDS: Lactated Ringers 1,000 ML 100 ML IVCONT (14:02)
--- NOTE | 2023-10-15 14:31 | PHA.MEDREC ---
Pharmacy Consult ? Medication Reconciliation Pharmacy has completed the medication reconciliation. spoke with patient to confirm medications. She reports not taking her furosemide for a couple days. She reports that she stopped taking her oxybutynin 5mg BID a couple days ago. She did not take any of her medications this morning including the Avonex injection.
--- NOTE | 2023-10-15 15:21 | PC.NURSE ---
Pt sleeping at this time, catheter intact draining cloudy urine
[2023-10-15] MEDS: Apixaban 5 MG TABLET PO (21:12)
[2023-10-15] MEDS: Ferrous Sulfate 324 MG TABLET.DR PO (21:12)
[2023-10-15] MEDS: PARoxetine HCL 40 MG TABLET PO (21:12)
[2023-10-15] MEDS: Melatonin 3 MG TABLET 9 MG PO (21:12)
[2023-10-15] MEDS: Atorvastatin Calcium 80 MG TABLET PO (21:12)
[2023-10-16] VITALS (8 sets, daily range): BP systolic 106–128; BP diastolic 53–59; PULSE 60–75; RESP 16–20; TEMP 36.2–37.2; O2SAT 96–99
[2023-10-16] MEDS: Lactated Ringers 1,000 ML 100 ML IVCONT ×3 (00:16→22:55)
[2023-10-16] MEDS: Acetaminophen 325 MG TABLET 650 MG PO ×3 (01:02→22:36)
[2023-10-16] MEDS: 0.9 % Sodium Chloride Flush 3 ML SYRINGE IVFLUSH ×4 (01:04→20:09)
[2023-10-16] MEDS: Omeprazole 20 MG CAPSULE.DR PO (06:29)
[2023-10-16] MEDS: Levothyroxine Sodium 50 MCG TABLET PO (06:29)
[2023-10-16] MEDS: Fluticasone/Vilanterol 100/25 BLST.W.DEV 1 PUFF INHALE (08:00)
--- NOTE | 2023-10-16 08:45 | P.PNIM_ITS ---
Subjective Subjective Date of Service: 10/16/23 Interval History: still feels lousy, though improved Physical Exam 2 Vital Signs: Vital Signs: Last Vital Signs Temp 97.7 F 10/16/23 07:10 Pulse 60 10/16/23 08:04 Resp 16 10/16/23 08:04 BP 128/59 L 10/16/23 07:10 Pulse Ox 98 10/16/23 07:10 O2 Del Method Room Air 10/16/23 07:10 BMI result Body Mass Index 24.2 General: AO X 3, no acute distress Resp: CTA bilateral, no accessory muscles used CVS: S1,S2,RRR GI: soft, non tender, non distended Neuro: motor grossly intact, alert Psych: appropriate affect, appropriate insight Objective Data Active Medications Acetaminophen (Acetaminophen 325 Mg Tablet) 650 mg PO Q4H PRN PRN Reason: Pain, Mild (Pain Scale 1-3) Last Admin: 10/16/23 01:02 Dose: 650 mg Documented By: SHILPA Amiodarone HCl (Amiodarone Hcl 200 Mg Tablet) 200 mg PO DAILY [facility] Apixaban (Apixaban 5 Mg Tablet) 5 mg PO BID [facility] Last Admin: 10/15/23 21:12 Dose: 5 mg Documented By: SHILPA Atorvastatin Calcium (Atorvastatin Calcium 80 Mg Tablet) 80 mg PO BEDTIME [facility] Last Admin: 10/15/23 21:12 Dose: 80 mg Documented By: SHILPA Clopidogrel Bisulfate (Clopidogrel Bisulfate 75 Mg Tablet) 75 mg PO DAILY [facility] Cyanocobalamin (Cyanocobalamin (Vitamin B-12) 1,000 Mcg Tablet) 1,000 mcg PO DAILY [facility] Ferrous Sulfate (Ferrous Sulfate 324 Mg Tablet.Dr) 324 mg PO BEDTIME [facility] Last Admin: 10/15/23 21:12 Dose: 324 mg Documented By: SHILPA Fluticasone/Vilanterol (Fluticasone/Vilanterol 100/25 Blst.W.Dev) 1 puff INHALE RDAILY [facility] Last Admin: 10/16/23 08:00 Dose: 1 puff Documented By: NILES Ceftriaxone Sodium 1 gm/ (Sodium Chloride) 50 mls @ 100 mls/hr IV Q24H [facility] Lactated Ringer's (Lr) 1,000 mls @ 100 mls/hr IVCONT .Q10H [facility] Last Admin: 10/16/23 00:16 Dose: 100 mls/hr Documented By: SHILPA Levothyroxine Sodium (Levothyroxine Sodium 50 Mcg Tablet) 50 mcg PO DAILY@0600 [facility] Last Admin: 10/16/23 06:29 Dose: 50 mcg Documented By: SHILPA Melatonin (Melatonin 3 Mg Tablet) 9 mg PO BEDTIME [facility] Last Admin: 10/15/23 21:12 Dose: 9 mg Documented By: SHILPA Metoprolol Succinate (Metoprolol Succinate Er 50 Mg Tab.Er.24h) 50 mg PO DAILY [facility]; Protocol Omeprazole (Omeprazole 20 Mg Capsule.Dr) 20 mg PO DAILY@0630 [facility] Last Admin: 10/16/23 06:29 Dose: 20 mg Documented By: SHILPA Paroxetine HCl (Paroxetine Hcl 40 Mg Tablet) 40 mg PO BEDTIME [facility] Last Admin: 10/15/23 21:12 Dose: 40 mg Documented By: SHILPA Sodium Chloride (0.9 % Sodium Chloride Flush 3 Ml Syringe) 3 ml IVFLUSH QSHIFT [facility] Last Admin: 10/16/23 01:04 Dose: 3 ml Documented By: SHILPA Vitamin D (Cholecalciferol (Vitamin D3) 25 Mcg Tablet) 25 mcg PO DAILY [facility] Labs 10/15/23 12:43 10/15/23 12:43 Labs: Laboratory Results - last 24 hr 10/15/23 10/15/23 12:43 13:35 MCV 78.9 L MCH 26.1 L MCHC 33.1 RDW 16.9 H Plt Count 191 MPV 9.9 Immature Gran % (Auto) 0.7 H Neut % (Auto) 95.2 H Lymph % (Auto) 2.2 L Chambers % (Auto) 1.8 L Eos % (Auto) 0.0 Baso % (Auto) 0.1 Lymph # (Auto) 0.2 L Chambers # (Auto) 0.2 Eos # (Auto) 0.0 Baso # (Auto) 0.0 Abs Immat Gran (auto) 0.07 H Absolute Neuts (auto) 10.2 H Absolute Nucleated RBC 0.000 Nucleated RBC % (auto) 0.0 Anion Gap 17 Estim Creat Clear Calc 13.5 Estimated GFR 14 Random Glucose 91 Lactic Acid 1.7 Calcium 9.7 D Magnesium 1.6 Total Bilirubin 0.8 AST 21 ALT 18 Alkaline Phosphatase 92 Total Protein 7.0 Albumin 3.4 L Urine Color Yellow Urine Appearance Turbid Urine pH 5.5 Ur Specific [place] 1.010 Urine Protein 30 (1+) H Urine Glucose (UA) Negative Urine Ketones Negative Urine Blood Large (3+) H Urine Nitrite Negative Ur Leukocyte Esterase Large (3+) H Urine RBC 0-2 Urine WBC >50 H Ur Squamous Epith Cells 0-2 Urine Bacteria 4+ Hyaline Casts 0-2 COVID-19 (JULIO) Negative COVID-19 Clin Com See Note Influenza Type A (TRINA) Negative Influenza Type B (TRINA) Negative Influenza A & B Note See Note Microbiology Microbiology Results: Microbiology 10/15/23 12:48 Blood Culture - Preliminary Blood - Venous Prelim: GNR Gram Stain only Assessment and Plan (1) Sepsis: Status: Acute Plan 68F PMH CAD, urinary retention and recurrent uti, chronic systolic chf, persistent afib, CKD II, htn, hypothyroid, copd presented with suprapubic fullness, fever, ams Sepsis and acute metabolic encephalopathy due to acute pyelonephritis with GNR bacteremia Given 30 cc/kilos isotonic fluids continue IV ceftriaxone Follow-up cultures Hou placed, pvr not significant Acute kidney injury on CKD 2 IV fluids Monitor Chronic systolic CHF Monitor closely while hydrating Persistent atrial fibrillation Amiodarone, apixaban, Toprol Hypothyroid Synthroid COPD Continue inhaler DVT prophylaxis-on apixaban Full code reason for continued hospitalization:awaiting cultures Quality Stroke Does the patient have a stroke diagnosis?: No VTE Prior VTE?: No VTE Risk Level:: Medical - moderate - high VTE Device Contraindication: Treatment Not Indicated VTE Drug Contraindication: N/A - Med Ordered
--- NOTE | 2023-10-16 09:13 | MHC.CM.PN ---
CM met with Patient at bedside and addressed IMM with her, providing Patient with the original and a copy has been placed on the chart. Patient lives alone in a house and uses a cane and a walker to assist with mobility. Patient was recently at [facility] but came [place] [facility] [place] where she was active with [facility]. Home/resume VNA is the goal and CM has initiated and will follow for dc planning. Patient's Sister/Aliya is the HCP and her PCP is Dr. Amina Whitfield.
[2023-10-16] MEDS: Apixaban 5 MG TABLET PO ×2 (10:10→20:08)
[2023-10-16] MEDS: Amiodarone HCL 200 MG TABLET PO (10:10)
[2023-10-16] MEDS: Clopidogrel Bisulfate 75 MG TABLET PO (10:10)
[2023-10-16] MEDS: Metoprolol Succinate ER 50 MG TAB.ER.24H PO (10:11)
[2023-10-16] MEDS: Cholecalciferol (Vitamin D3) 25 MCG TABLET PO (10:11)
[2023-10-16] MEDS: Cyanocobalamin (Vitamin B-12) 1,000 MCG TABLET 1000 MCG PO (10:11)
[2023-10-16 10:37] LABS: Hemoglobin 10.2 g/dl (12.0-16.0); Mean Corpuscular HGB Conc 31.9 g/dl (31.0-35.0); Mean Corpuscular Hemoglobin 25.4 pg (27.0-33.0); Mean Corpuscular Volume 79.8 fL (80.0-98.0); Mean Platelet Volume 10.6 fL (9.4-12.3); Platelet Count 183 X10*3/uL (160-400); Red Blood Count 4.01 X10*6/uL (4.20-5.50); Red Cell Distribution Width 16.7 % (11.0-16.0); White Blood Count 12.1 X10*3/uL (4.8-10.8)
[2023-10-16 10:47] LABS: Blood Urea Nitrogen 35 mg/dL (9-16); Estimated Glomerular Filt Rate 24; Glucose Fasting 160 mg/dL (60-99)
[2023-10-16 10:56] LABS: Anion Gap 13 (12-20); Calcium 8.5 mg/dL (8.4-10.2); Carbon Dioxide 23 mmol/L (22-29); Chloride 106 mmol/L (96-108); Potassium 2.9 mmol/L (3.3-5.1); Sodium 139 mmol/L (135-145)
[2023-10-16] MEDS: cefTRIAXone sodium 1 GM in 0.9 % Sodium Chloride 50 ML IV (11:25)
[2023-10-16] MEDS: Morphine Sulfate 2 MG/ML CARTRIDGE IVPUSH ×2 (11:25→20:09)
--- NOTE | 2023-10-16 17:19 | HO.WOUND ---
Wound Consult: Initial 68yr old female admitted to [facility] [place] on?10/15/23 13:30 - See progress notes and H&P for detailed history. Wound consult placed for Buttock and heel assessment. Arrival to bedside pt is agreeable to assessment and photo documentation. The pt reports she has had a wound in the past to her heels and buttocks - she was able to show me a picture of her buttocks as a stage 2 pressure injury - in similar areas. The areas in comparison to the photos reviewed are improving. Bilateral heels are red and slow to alee - the bilateral heels are noted for open wounds - the patient report s these were secondary to being in bed at her facility previously. Sacrum Etiology: Right Stage 2 pressure injury (Observed previous injury to left sacrum in photo provided by pt - at this time area is resolved and intact but remains slow to alee) Measurements: see charting for detailed measuremen Wound Bed: partial thickness tissue loss with red pink wound bed Drainage / Odor: None Edges: ? attached Alice wound: ? No Induration, Fluctuance or Warmth noted Pain: reports mild tenderness Goals of Treatment: ?Off load pressure - foam to allow for moist wound healing Left heel Right Heel Bilateral Heels Etiology: Stage 2 pressure Injuries Measurements: see charting for detailed measurement Wound Bed: red dry clean partial thickness tissue loss Drainage / Odor: None Edges: ?attached Alice wound: ? No Induration, Fluctuance or Warmth noted Pain: reports tenderness Goals of Treatment: Off load pressure - foam to allow for moist wound healing Recommendations: 1. Turn and Reposition every 2 hours and as needed for patient comfort. 2. Off Load all bony prominences with use of pillows and heel boots if needed.? Apply Preventative foams where needed. ? 3. Monitor for incontinence and moisture control, use barrier creams when needed for prevention and treatment. 4. Provide adequate and supplemental nutrition. 5. Continue low air loss mattress. 6. Sacrum and Bilateral Heels - Cleanse with NS, Pat dry. Apply Protective foam dressing peel back and assess Q shift. Change every 3 days and PRN. Re-consult wound care Nurse for wound deterioration or wound changes.
[2023-10-16] MEDS: Ferrous Sulfate 324 MG TABLET.DR PO (20:08)
[2023-10-16] MEDS: Atorvastatin Calcium 80 MG TABLET PO (20:08)
[2023-10-16] MEDS: PARoxetine HCL 40 MG TABLET PO (20:08)
[2023-10-16] MEDS: Melatonin 3 MG TABLET 9 MG PO (22:36)
[2023-10-17] VITALS (9 sets, daily range): BP systolic 114–132; BP diastolic 58–75; PULSE 54–65; RESP 15–20; TEMP 36.3–37.1; O2SAT 95–97
[2023-10-17 05:21] LABS: Hematocrit 30.6 % (37.0-47.0); Hemoglobin 9.9 g/dl (12.0-16.0); Mean Corpuscular HGB Conc 32.4 g/dl (31.0-35.0); Mean Corpuscular Hemoglobin 26.7 pg (27.0-33.0); Mean Corpuscular Volume 82.5 fL (80.0-98.0); Mean Platelet Volume 10.8 fL (9.4-12.3); Platelet Count 201 X10*3/uL (160-400); Red Blood Count 3.71 X10*6/uL (4.20-5.50); Red Cell Distribution Width 16.9 % (11.0-16.0); White Blood Count 8.3 X10*3/uL (4.8-10.8)
[2023-10-17] MEDS: Levothyroxine Sodium 50 MCG TABLET PO (05:21)
[2023-10-17] MEDS: Omeprazole 20 MG CAPSULE.DR PO (05:21)
[2023-10-17 05:35] LABS: Anion Gap 13 (12-20); Blood Urea Nitrogen 27 mg/dL (9-16); Calcium 8.4 mg/dL (8.4-10.2); Carbon Dioxide 22 mmol/L (22-29); Chloride 109 mmol/L (96-108); Creatinine Clr Calc Pharmacy 26.5; Estimated Glomerular Filt Rate 31; Glucose Fasting 94 mg/dL (60-99); Potassium 2.7 mmol/L (3.3-5.1); Sodium 141 mmol/L (135-145)
[2023-10-17] MEDS: Fluticasone/Vilanterol 100/25 BLST.W.DEV 1 PUFF INHALE (07:31)
[2023-10-17] MEDS: Potassium Chloride ER 20 MEQ TAB.ER.PRT 40 MEQ PO (08:13)
[2023-10-17] MEDS: Cyanocobalamin (Vitamin B-12) 1,000 MCG TABLET 1000 MCG PO (08:13)
[2023-10-17] MEDS: Clopidogrel Bisulfate 75 MG TABLET PO (08:13)
[2023-10-17] MEDS: Apixaban 5 MG TABLET PO ×2 (08:13→21:24)
[2023-10-17] MEDS: Cholecalciferol (Vitamin D3) 25 MCG TABLET PO (08:13)
[2023-10-17] MEDS: Metoprolol Succinate ER 50 MG TAB.ER.24H PO (08:13)
[2023-10-17] MEDS: 0.9 % Sodium Chloride Flush 3 ML SYRINGE IVFLUSH ×3 (08:13→21:24)
[2023-10-17] MEDS: Potassium Chloride/H20 10 MEQ/100 ML PIGGYBACK 100 MEQ IV ×2 (08:13→09:13)
[2023-10-17] MEDS: Amiodarone HCL 200 MG TABLET PO (08:13)
[2023-10-17] MEDS: Morphine Sulfate 2 MG/ML CARTRIDGE IVPUSH (09:07)
--- NOTE | 2023-10-17 09:23 | P.PNIM_ITS ---
Subjective Subjective Date of Service: 10/17/23 Interval History: weak but improving Physical Exam 2 Vital Signs: Vital Signs: Last Vital Signs Temp 98.6 F 10/17/23 07:25 Pulse 62 10/17/23 08:09 Resp 17 10/17/23 09:07 BP 131/60 10/17/23 07:25 Pulse Ox 95 10/17/23 07:25 O2 Del Method Room Air 10/17/23 07:25 BMI result Body Mass Index 24.2 General: AO X 3, no acute distress Resp: CTA bilateral, no accessory muscles used CVS: S1,S2,RRR GI: soft, non tender, non distended Neuro: motor grossly intact, alert Psych: appropriate affect, appropriate insight Objective Data Active Medications Acetaminophen (Acetaminophen 325 Mg Tablet) 650 mg PO Q4H PRN PRN Reason: Pain, Mild (Pain Scale 1-3) Last Admin: 10/16/23 22:36 Dose: 650 mg Documented By: SHILPA Amiodarone HCl (Amiodarone Hcl 200 Mg Tablet) 200 mg PO DAILY [facility] Last Admin: 10/17/23 08:13 Dose: 200 mg Documented By: ROHIT Apixaban (Apixaban 5 Mg Tablet) 5 mg PO BID [facility] Last Admin: 10/17/23 08:13 Dose: 5 mg Documented By: ROHIT Atorvastatin Calcium (Atorvastatin Calcium 80 Mg Tablet) 80 mg PO BEDTIME [facility] Last Admin: 10/16/23 20:08 Dose: 80 mg Documented By: SHILPA Clopidogrel Bisulfate (Clopidogrel Bisulfate 75 Mg Tablet) 75 mg PO DAILY [facility] Last Admin: 10/17/23 08:13 Dose: 75 mg Documented By: ROHIT Cyanocobalamin (Cyanocobalamin (Vitamin B-12) 1,000 Mcg Tablet) 1,000 mcg PO DAILY [facility] Last Admin: 10/17/23 08:13 Dose: 1,000 mcg Documented By: ROHIT Ferrous Sulfate (Ferrous Sulfate 324 Mg Tablet.Dr) 324 mg PO BEDTIME [facility] Last Admin: 10/16/23 20:08 Dose: 324 mg Documented By: SHILPA Fluticasone/Vilanterol (Fluticasone/Vilanterol 100/25 Blst.W.Dev) 1 puff INHALE RDAILY [facility] Last Admin: 10/17/23 07:31 Dose: 1 puff Documented By: NILES Ceftriaxone Sodium 1 gm/ (Sodium Chloride) 50 mls @ 100 mls/hr IV Q24H [facility] Last Infusion: 10/16/23 15:22 Dose: Infused Documented By: TRANG Potassium Chloride (Potassium Chloride/H20) 10 meq in 100 mls @ 100 mls/hr IV Q1H [facility] Stop: 10/17/23 09:29 Last Admin: 10/17/23 09:13 Dose: 100 mls/hr Documented By: ROHIT Levothyroxine Sodium (Levothyroxine Sodium 50 Mcg Tablet) 50 mcg PO DAILY@0600 [facility] Last Admin: 10/17/23 05:21 Dose: 50 mcg Documented By: SHILPA Melatonin (Melatonin 3 Mg Tablet) 9 mg PO BEDTIME [facility] Last Admin: 10/16/23 22:36 Dose: 9 mg Documented By: SHILPA Metoprolol Succinate (Metoprolol Succinate Er 50 Mg Tab.Er.24h) 50 mg PO DAILY [facility]; Protocol Last Admin: 10/17/23 08:13 Dose: 50 mg Documented By: ROHIT Morphine Sulfate (Morphine Sulfate 2 Mg/Ml Cartridge) 2 mg IVPUSH Q3H PRN; Protocol PRN Reason: mpain Last Admin: 10/17/23 09:07 Dose: 2 mg Documented By: ROHIT Omeprazole (Omeprazole 20 Mg Capsule.) 20 mg PO DAILY@0630 [facility] Last Admin: 10/17/23 05:21 Dose: 20 mg Documented By: SHILPA Paroxetine HCl (Paroxetine Hcl 40 Mg Tablet) 40 mg PO BEDTIME [facility] Last Admin: 10/16/23 20:08 Dose: 40 mg Documented By: SHILPA Sodium Chloride (0.9 % Sodium Chloride Flush 3 Ml Syringe) 3 ml IVFLUSH QSHIFT [facility] Last Admin: 10/17/23 08:13 Dose: 3 ml Documented By: ROHIT Vitamin D (Cholecalciferol (Vitamin D3) 25 Mcg Tablet) 25 mcg PO DAILY [facility] Last Admin: 10/17/23 08:13 Dose: 25 mcg Documented By: ROHIT Labs 10/17/23 04:59 10/17/23 04:59 Labs: Laboratory Results - last 24 hr 10/16/23 10/17/23 09:42 04:59 MCV 79.8 L 82.5 MCH 25.4 L 26.7 L MCHC 31.9 32.4 RDW 16.7 H 16.9 H Plt Count 183 201 MPV 10.6 10.8 Absolute Nucleated RBC 0.000 0.000 Nucleated RBC % (auto) 0.0 0.0 Anion Gap 13 13 Estim Creat Clear Calc 21.0 26.5 Estimated GFR 24 31 Fasting Glucose 160 H 94 Calcium 8.5 D 8.4 Microbiology Microbiology Results: Microbiology 10/15/23 12:48 Blood Culture - Preliminary Blood - Venous Gram negative jc 10/15/23 Unknown Urine Culture - Final Urine Catheterized - Straight Catheter Escherichia coli 10/15/23 12:43 Blood Culture - Preliminary Blood - Venous No growth after 24 hours. Assessment and Plan (1) Sepsis: Status: Acute Plan 68F PMH CAD, urinary retention and recurrent uti, chronic systolic chf, persistent afib, CKD II, htn, hypothyroid, copd presented with suprapubic fullness, fever, ams Sepsis and acute metabolic encephalopathy due to acute pyelonephritis with GNR bacteremia Given 30 cc/kilos isotonic fluids in ED continue IV ceftriaxone Follow-up cultures - urine grew ecoli Hou placed, pvr not significant, has history of urinary retention, will requrest eval acute hpyokalemia replace and montior Acute kidney injury on CKD 2 Improving Monitor Chronic systolic CHF Monitor closely while hydrating Persistent atrial fibrillation Amiodarone, apixaban, Toprol Hypothyroid Synthroid COPD Continue inhaler DVT prophylaxis-on apixaban Full code reason for continued hospitalization:significant hypokalemia Quality Stroke Does the patient have a stroke diagnosis?: No VTE Prior VTE?: No VTE Risk Level:: Medical - moderate - high VTE Device Contraindication: Treatment Not Indicated VTE Drug Contraindication: N/A - Med Ordered
[2023-10-17] MEDS: cefTRIAXone sodium 1 GM in 0.9 % Sodium Chloride 50 ML IV (11:55)
[2023-10-17] MEDS: Acetaminophen 325 MG TABLET 650 MG PO (21:23)
[2023-10-17] MEDS: Melatonin 3 MG TABLET 9 MG PO (21:24)
[2023-10-17] MEDS: PARoxetine HCL 40 MG TABLET PO (21:24)
[2023-10-17] MEDS: Atorvastatin Calcium 80 MG TABLET PO (21:24)
[2023-10-17] MEDS: Ferrous Sulfate 324 MG TABLET.DR PO (21:24)
[2023-10-18] VITALS (8 sets, daily range): BP systolic 125–149; BP diastolic 75–91; PULSE 56–73; RESP 16–20; TEMP 36.3–36.8; O2SAT 95–98
[2023-10-18] MEDS: Levothyroxine Sodium 50 MCG TABLET PO (05:47)
[2023-10-18 06:18] LABS: Hematocrit 33.9 % (37.0-47.0); Hemoglobin 10.8 g/dl (12.0-16.0); Mean Corpuscular HGB Conc 31.9 g/dl (31.0-35.0); Mean Corpuscular Volume 81.7 fL (80.0-98.0); Platelet Count 254 X10*3/uL (160-400); Red Blood Count 4.15 X10*6/uL (4.20-5.50); Red Cell Distribution Width 16.9 % (11.0-16.0); White Blood Count 8.2 X10*3/uL (4.8-10.8)
[2023-10-18 06:36] LABS: Anion Gap 12 (12-20); Blood Urea Nitrogen 19 mg/dL (9-16); Calcium 8.9 mg/dL (8.4-10.2); Carbon Dioxide 23 mmol/L (22-29); Chloride 111 mmol/L (96-108); Creatinine Clr Calc Pharmacy 34.1; Estimated Glomerular Filt Rate 42; Glucose Fasting 93 mg/dL (60-99); Potassium 3.3 mmol/L (3.3-5.1); Sodium 143 mmol/L (135-145)
[2023-10-18] MEDS: Fluticasone/Vilanterol 100/25 BLST.W.DEV 1 PUFF INHALE (07:21)
[2023-10-18] MEDS: Potassium Chloride ER 20 MEQ TAB.ER.PRT 40 MEQ PO (08:44)
[2023-10-18] MEDS: Apixaban 5 MG TABLET PO ×2 (08:45→21:20)
[2023-10-18] MEDS: Magnesium Oxide 400 MG TABLET PO ×2 (08:45→17:35)
[2023-10-18] MEDS: Clopidogrel Bisulfate 75 MG TABLET PO (08:45)
[2023-10-18] MEDS: Cholecalciferol (Vitamin D3) 25 MCG TABLET PO (08:45)
[2023-10-18] MEDS: Omeprazole 20 MG CAPSULE.DR PO (08:45)
[2023-10-18] MEDS: Amiodarone HCL 200 MG TABLET PO (08:45)
[2023-10-18] MEDS: Cyanocobalamin (Vitamin B-12) 1,000 MCG TABLET 1000 MCG PO (08:45)
[2023-10-18] MEDS: Metoprolol Succinate ER 50 MG TAB.ER.24H PO (08:45)
[2023-10-18] MEDS: 0.9 % Sodium Chloride Flush 3 ML SYRINGE IVFLUSH ×2 (08:52→21:20)
--- NOTE | 2023-10-18 09:04 | HO.PM.IMPN ---
Subjective Subjective Date of Service: 10/18/23 Interval History: consitpation, flank pain Physical Exam Vital Signs: Vital Signs: Last Vital Signs Temp 97.6 F 10/18/23 07:16 Pulse 61 10/18/23 07:23 Resp 18 10/18/23 07:23 BP 144/78 H 10/18/23 07:16 Pulse Ox 97 10/18/23 07:16 O2 Del Method Room Air 10/18/23 07:16 BMI result Body Mass Index 24.2 General: AO X 3, no acute distress Resp: CTA bilateral, no accessory muscles used CVS: S1,S2,RRR GI: soft, non tender, non distended Neuro: motor grossly intact, alert Psych: appropriate affect, appropriate insight Objective Data Active Medications Acetaminophen (Acetaminophen 325 Mg Tablet) 650 mg PO Q4H PRN PRN Reason: Pain, Mild (Pain Scale 1-3) Last Admin: 10/17/23 21:23 Dose: 650 mg Documented By: MELISSA Amiodarone HCl (Amiodarone Hcl 200 Mg Tablet) 200 mg PO DAILY [facility] Last Admin: 10/18/23 08:45 Dose: 200 mg Documented By: JORGE Apixaban (Apixaban 5 Mg Tablet) 5 mg PO BID [facility] Last Admin: 10/18/23 08:45 Dose: 5 mg Documented By: JORGE Atorvastatin Calcium (Atorvastatin Calcium 80 Mg Tablet) 80 mg PO BEDTIME [facility] Last Admin: 10/17/23 21:24 Dose: 80 mg Documented By: MELISSA Clopidogrel Bisulfate (Clopidogrel Bisulfate 75 Mg Tablet) 75 mg PO DAILY [facility] Last Admin: 10/18/23 08:45 Dose: 75 mg Documented By: JORGE Cyanocobalamin (Cyanocobalamin (Vitamin B-12) 1,000 Mcg Tablet) 1,000 mcg PO DAILY [facility] Last Admin: 10/18/23 08:45 Dose: 1,000 mcg Documented By: JORGE Ferrous Sulfate (Ferrous Sulfate 324 Mg Tablet.Dr) 324 mg PO BEDTIME [facility] Last Admin: 10/17/23 21:24 Dose: 324 mg Documented By: MELISSA Fluticasone/Vilanterol (Fluticasone/Vilanterol 100/25 Blst.W.Dev) 1 puff INHALE RDAILY [facility] Last Admin: 10/18/23 07:21 Dose: 1 puff Documented By: AZALEA Ceftriaxone Sodium 1 gm/ (Sodium Chloride) 50 mls @ 100 mls/hr IV Q24H [facility] Last Infusion: 10/17/23 12:25 Dose: Infused Documented By: ROHIT Levothyroxine Sodium (Levothyroxine Sodium 50 Mcg Tablet) 50 mcg PO DAILY@0600 [facility] Last Admin: 10/18/23 05:47 Dose: 50 mcg Documented By: MELISSA Magnesium Oxide (Magnesium Oxide 400 Mg Tablet) 400 mg PO BIDPC [facility] Last Admin: 10/18/23 08:45 Dose: 400 mg Documented By: JORGE Melatonin (Melatonin 3 Mg Tablet) 9 mg PO BEDTIME [facility] Last Admin: 10/17/23 21:24 Dose: 9 mg Documented By: MELISSA Metoprolol Succinate (Metoprolol Succinate Er 50 Mg Tab.Er.24h) 50 mg PO DAILY [facility]; Protocol Last Admin: 10/18/23 08:45 Dose: 50 mg Documented By: JORGE Morphine Sulfate (Morphine Sulfate 2 Mg/Ml Cartridge) 2 mg IVPUSH Q3H PRN; Protocol PRN Reason: mpain Last Admin: 10/17/23 09:07 Dose: 2 mg Documented By: ROHIT Omeprazole (Omeprazole 20 Mg Capsule.Dr) 20 mg PO DAILY [facility] Last Admin: 10/18/23 08:45 Dose: 20 mg Documented By: JORGE Paroxetine HCl (Paroxetine Hcl 40 Mg Tablet) 40 mg PO BEDTIME [facility] Last Admin: 10/17/23 21:24 Dose: 40 mg Documented By: MELISSA Sodium Chloride (0.9 % Sodium Chloride Flush 3 Ml Syringe) 3 ml IVFLUSH QSHIFT [facility] Last Admin: 10/18/23 08:52 Dose: 3 ml Documented By: JORGE Vitamin D (Cholecalciferol (Vitamin D3) 25 Mcg Tablet) 25 mcg PO DAILY [facility] Last Admin: 10/18/23 08:45 Dose: 25 mcg Documented By: JORGE Labs 10/18/23 05:53 10/18/23 05:53 Labs: Laboratory Results - last 24 hr 10/18/23 05:53 MCV 81.7 MCH 26.0 L MCHC 31.9 RDW 16.9 H Plt Count 254 D MPV 11.0 Absolute Nucleated RBC 0.000 Nucleated RBC % (auto) 0.0 Anion Gap 12 Estim Creat Clear Calc 34.1 Estimated GFR 42 Fasting Glucose 93 Calcium 8.9 Microbiology Microbiology Results: Microbiology 10/15/23 12:48 Blood Culture - Final Blood - Venous Escherichia coli 10/15/23 12:43 Blood Culture - Preliminary Blood - Venous No growth after 48 hours. 10/15/23 Unknown Urine Culture - Final Urine Catheterized - Straight Catheter Escherichia coli Assessment and Plan (1) Sepsis: Status: Acute Plan 68F PMH CAD, urinary retention and recurrent uti, chronic systolic chf, persistent afib, CKD II, htn, hypothyroid, copd presented with suprapubic fullness, fever, ams Sepsis and acute metabolic encephalopathy due to acute pyelonephritis with GNR bacteremia Given 30 cc/kilos isotonic fluids in ED continue IV ceftriaxone urine and blood grew ecoli Hou placed, pvr not significant, has history of urinary retention, eval cosntipation miralax, ambulation acute hpyokalemia, hypomagnesemia replace and monitor Acute kidney injury on CKD 2 resolved Chronic systolic CHF stable continue metoprolol, holding lasix for natalie Persistent atrial fibrillation Amiodarone, apixaban, Toprol Hypothyroid Synthroid COPD Continue inhaler DVT prophylaxis-on apixaban Full code reason for continued hospitalization:constipation, feeling unwell Quality Stroke Does the patient have a stroke diagnosis?: No VTE Prior VTE?: No VTE Risk Level:: Medical - moderate - high VTE Device Contraindication: Treatment Not Indicated VTE Drug Contraindication: N/A - Med Ordered
[2023-10-18] MEDS: Acetaminophen 325 MG TABLET 650 MG PO (12:29)
[2023-10-18] MEDS: cefTRIAXone sodium 1 GM in 0.9 % Sodium Chloride 50 ML IV (12:30)
[2023-10-18] MEDS: polyethylene glycoL 3350 17 GM POWD.PACK PO (12:30)
--- NOTE | 2023-10-18 16:15 | P.CNUR_ITS ---
History of Present Illness Consult details Consult date: 10/17/23 Narrative: CC: urinary retention question of UTI 68-year-old female Background of multiple sclerosis Prior hospital admission July with fall. Had been found with urinary retention. Sepsis and acute metabolic encephalopathy due to urinary tract infection patient with history of urinary retention Microbiology E coli pansensitive on IV antibiotic therapy 500 cc residual on placement of Hou catheter recommend Hou catheter for 7 days. Followed by voiding trial. May need CIC 2 times per day given progression of multiple sclerosis with impact on bladder. Review of Systems 2 Constitutional: Constitutional: Reports as per HPI and Reports no additional constitutional complaints Cardiovascular: Cardiovascular: Reports as per HPI and Reports no additional cardiovascular complaints Respiratory: Respiratory: Reports as per HPI and Reports no additional respiratory complaints Gastrointestinal: Gastrointestinal: Reports as per HPI and Reports no additional gastrointestinal complaints Genitourinary: Genitourinary: Reports as per HPI Musculoskeletal: Musculoskeletal: Reports no additional musculoskeletal complaints and Reports as per HPI Neurologic: Reports system reviewed and no additional complaints, except as documented and Reports as per HPI PMFSH Past Medical History Medical History History of smoking 30 or more pack years COPD (chronic obstructive pulmonary disease) Atherosclerotic cardiovascular disease PAF (paroxysmal atrial fibrillation) Atrial fibrillation with rapid ventricular response Left renal artery stenosis Personal history of nicotine dependence Cardiomyopathy Essential hypertension Asymmetric blood pressures Acute on chronic systolic (congestive) heart failure CHF (congestive heart failure) CAD (coronary artery disease) Multiple sclerosis Pulmonary nodules Peripheral arterial occlusive disease Family History Family History Father No problems noted. Mother No problems noted. Brother Diabetes Surgical History Surgical History History of endoscopy History of colonoscopy History of heart artery stent (~2018) Status post angioplasty with stent (~09/2018) S/P insertion of iliac artery stent (~02/2019) S/P cardiac cath (~12/2020) History of cholecystectomy (~02/2009) Social History Social History Household Members: None Housing: House Are you a primary point of care specialist to a significant other at home: No Alcohol intake: never Comment: aware of trip hazard Patient Tobacco Use Status: Former Tobacco user Quit Date: 2017 Tobacco use type: Cigarette e-Cigarette/Vaping Use: Never Used Second Hand Smoke Exposure: No Advance Directives Date on File: 12/27/20 service: No Current occupational status: retired Cognitive needs: Yes (cane) Hearing needs: No Vision needs: Yes (reading glasses) Meds Allergies Allergy/AdvReac Type Severity Reaction Status Date / Time codeine [Codeine] AdvReac Mild vomiting Verified 09/30/23 15:35 Active Medications: Current Medications Acetaminophen (Acetaminophen 325 Mg Tablet) 650 mg PO Q4H PRN PRN Reason: Pain, Mild (Pain Scale 1-3) Last Admin: 10/18/23 12:29 Dose: 650 mg Amiodarone HCl (Amiodarone Hcl 200 Mg Tablet) 200 mg PO DAILY [facility] Last Admin: 10/18/23 08:45 Dose: 200 mg Apixaban (Apixaban 5 Mg Tablet) 5 mg PO BID [facility] Last Admin: 10/18/23 08:45 Dose: 5 mg Atorvastatin Calcium (Atorvastatin Calcium 80 Mg Tablet) 80 mg PO BEDTIME [facility] Last Admin: 10/17/23 21:24 Dose: 80 mg Clopidogrel Bisulfate (Clopidogrel Bisulfate 75 Mg Tablet) 75 mg PO DAILY [facility] Last Admin: 10/18/23 08:45 Dose: 75 mg Cyanocobalamin (Cyanocobalamin (Vitamin B-12) 1,000 Mcg Tablet) 1,000 mcg PO DAILY [facility] Last Admin: 10/18/23 08:45 Dose: 1,000 mcg Ferrous Sulfate (Ferrous Sulfate 324 Mg Tablet.Dr) 324 mg PO BEDTIME [facility] Last Admin: 10/17/23 21:24 Dose: 324 mg Fluticasone/Vilanterol (Fluticasone/Vilanterol 100/25 Blst.W.Dev) 1 puff INHALE RDAILY [facility] Last Admin: 10/18/23 07:21 Dose: 1 puff Ceftriaxone Sodium 1 gm/ (Sodium Chloride) 50 mls @ 100 mls/hr IV Q24H [facility] Last Infusion: 10/18/23 13:15 Dose: Infused Levothyroxine Sodium (Levothyroxine Sodium 50 Mcg Tablet) 50 mcg PO DAILY@0600 [facility] Last Admin: 10/18/23 05:47 Dose: 50 mcg Magnesium Oxide (Magnesium Oxide 400 Mg Tablet) 400 mg PO BIDPC [facility] Last Admin: 10/18/23 08:45 Dose: 400 mg Melatonin (Melatonin 3 Mg Tablet) 9 mg PO BEDTIME [facility] Last Admin: 10/17/23 21:24 Dose: 9 mg Metoprolol Succinate (Metoprolol Succinate Er 50 Mg Tab.Er.24h) 50 mg PO DAILY [facility]; Protocol Last Admin: 10/18/23 08:45 Dose: 50 mg Morphine Sulfate (Morphine Sulfate 2 Mg/Ml Cartridge) 2 mg IVPUSH Q3H PRN; Protocol PRN Reason: mpain Last Admin: 10/17/23 09:07 Dose: 2 mg Omeprazole (Omeprazole 20 Mg Capsule.Dr) 20 mg PO DAILY [facility] Last Admin: 10/18/23 08:45 Dose: 20 mg Paroxetine HCl (Paroxetine Hcl 40 Mg Tablet) 40 mg PO BEDTIME [facility] Last Admin: 10/17/23 21:24 Dose: 40 mg Sodium Chloride (0.9 % Sodium Chloride Flush 3 Ml Syringe) 3 ml IVFLUSH QSHIFT [facility] Last Admin: 10/18/23 08:52 Dose: 3 ml Vitamin D (Cholecalciferol (Vitamin D3) 25 Mcg Tablet) 25 mcg PO DAILY [facility] Last Admin: 10/18/23 08:45 Dose: 25 mcg Home Medications Medication Instructions Recorded Confirmed Last Taken Type interferon beta-1a 30 mcg/0.5 mL 30 mcg IM WE 10/03/20 10/15/23 09/13/21 History intramuscular pen kit (Avonex) paroxetine HCl 40 mg tablet 40 mg PO BEDTIME 10/03/20 10/15/23 09/12/21 History cholecalciferol (vitamin D3) 25 25 mcg PO DAILY 12/20/20 10/15/23 09/13/21 History mcg (1,000 unit) tablet (Vitamin D3) cyanocobalamin (vitamin B-12) 1,000 mcg PO DAILY 12/20/20 10/15/23 09/13/21 History 1,000 mcg tablet (Vitamin B-12) melatonin 10 mg tablet 10 mg PO BEDTIME Insomnia 01/13/23 10/15/23 Unknown History levothyroxine 50 mcg tablet 50 mcg PO DAILY 09/02/23 10/15/23 Unknown History (Synthroid) metoprolol succinate 50 mg 50 mg PO DAILY 09/02/23 10/15/23 Unknown History tablet,extended release 24 hr Physical Exam 2 Vital Signs: Vital Signs: Last Vital Signs Temp 98.3 F 10/18/23 15:49 Pulse 56 10/18/23 15:49 Resp 17 10/18/23 15:49 BP 149/91 H 10/18/23 15:49 Pulse Ox 95 10/18/23 15:49 O2 Del Method Room Air 10/18/23 15:49 BMI result Body Mass Index 24.2 Const: General: cooperative, healthy appearing, comfortable and no acute distress Orientation/consciousness: patient oriented x3 HEENT: Face and sinus: Yes normal facial exam Mouth: moist mucous membranes Neck: Neck: Yes normal visual inspection, Yes full ROM and Yes trachea midline Chest: Chest palpation & inspection: normal inspection of the chest Resp: Effort & Inspection: normal respiratory effort, able to speak in complete sentences and no respiratory distress GI: Inspection: Yes normal to inspection Back/Spine/Pelvis: Cervical Spine: normal cervical lordosis Thoracic/Lumbar Spine: thoracic and lumbar spine normal to inspection Skin: General skin exam: no rashes or lesions noted Neuro: General: patient oriented x3, tone normal and moves all extremities Extrem: General: Yes normal to inspection and Yes capillary refill normal Results Labs 10/18/23 05:53 10/18/23 05:53 Labs: Abnormal lab results 10/18/23 Range/Units 05:53 RBC 4.15 L (4.20-5.50) X10*6/uL Hgb 10.8 L (12.0-16.0) g/dl Hct 33.9 L (37.0-47.0) % MCH 26.0 L (27.0-33.0) pg RDW 16.9 H (11.0-16.0) % Chloride 111 H (96-108) mmol/L BUN 19 H (9-16) mg/dL Short CBC 10/18/23 Range/Units 05:53 WBC 8.2 (4.8-10.8) X10*3/uL Hgb 10.8 L (12.0-16.0) g/dl Hct 33.9 L (37.0-47.0) % Plt Count 254 D (160-400) X10*3/uL BMP 10/18/23 05:53 Sodium 143 Potassium 3.3 D Chloride 111 H Carbon Dioxide 23 BUN 19 H Creatinine 1.27 Calcium 8.9 Urine 10/15/23 Range/Units 12:43 Urine Color Yellow Urine Appearance Turbid Urine pH 5.5 (5.0-9.0) Ur Specific [place] 1.010 (1.005-1.025) Urine Protein 30 (1+) H (Neg-Trace) mg/dL Urine Glucose (UA) Negative (Negative) mg/dL All other labs normal. Assessment and Plan (1) Sepsis: Status: Acute (2) Hypotonic neurogenic bladder: Status: Acute Plan voiding trial in 5-7 days Procedures Date of Service Date of Service: 10/18/23
[2023-10-18] MEDS: Magnesium Hydrox/Alum Hydrox 30 ML ORAL.SUSP 15 ML PO (17:32)
[2023-10-18] MEDS: Melatonin 3 MG TABLET 9 MG PO (21:19)
[2023-10-18] MEDS: Ferrous Sulfate 324 MG TABLET.DR PO (21:20)
[2023-10-18] MEDS: Atorvastatin Calcium 80 MG TABLET PO (21:20)
[2023-10-18] MEDS: PARoxetine HCL 40 MG TABLET PO (21:20)
[2023-10-18] MEDS: Morphine Sulfate 2 MG/ML CARTRIDGE IVPUSH (21:29)
[2023-10-19] VITALS (7 sets, daily range): BP systolic 113–136; BP diastolic 59–90; PULSE 53–85; RESP 16–20; TEMP 36.2–36.8; O2SAT 93–100
[2023-10-19] MEDS: Levothyroxine Sodium 50 MCG TABLET PO (05:41)
[2023-10-19 06:03] LABS: Hematocrit 33.8 % (37.0-47.0); Hemoglobin 10.7 g/dl (12.0-16.0); Mean Corpuscular HGB Conc 31.7 g/dl (31.0-35.0); Mean Corpuscular Hemoglobin 25.7 pg (27.0-33.0); Mean Corpuscular Volume 81.3 fL (80.0-98.0); Platelet Count 276 X10*3/uL (160-400); Red Blood Count 4.16 X10*6/uL (4.20-5.50); White Blood Count 10.3 X10*3/uL (4.8-10.8)
[2023-10-19 06:08] LABS: Anion Gap 12 (12-20); Blood Urea Nitrogen 15 mg/dL (9-16); Calcium 8.7 mg/dL (8.4-10.2); Carbon Dioxide 23 mmol/L (22-29); Chloride 110 mmol/L (96-108); Creatinine Clr Calc Pharmacy 35.8; Estimated Glomerular Filt Rate 44; Glucose Fasting 98 mg/dL (60-99); Magnesium 1.7 mg/dL (1.6-2.6); Potassium 3.9 mmol/L (3.3-5.1); Sodium 141 mmol/L (135-145)
[2023-10-19] MEDS: Fluticasone/Vilanterol 100/25 BLST.W.DEV 1 PUFF INHALE (08:33)
--- NOTE | 2023-10-19 08:39 | MHC.CM.PN ---
PT is recommending STR; CM will follow.
[2023-10-19] MEDS: Clopidogrel Bisulfate 75 MG TABLET PO (09:05)
[2023-10-19] MEDS: Magnesium Oxide 400 MG TABLET PO ×2 (09:05→16:22)
[2023-10-19] MEDS: Apixaban 5 MG TABLET PO ×2 (09:05→20:03)
[2023-10-19] MEDS: Metoprolol Succinate ER 50 MG TAB.ER.24H PO (09:05)
[2023-10-19] MEDS: Amiodarone HCL 200 MG TABLET PO (09:05)
[2023-10-19] MEDS: Cholecalciferol (Vitamin D3) 25 MCG TABLET PO (09:05)
[2023-10-19] MEDS: Omeprazole 20 MG CAPSULE.DR PO (09:05)
[2023-10-19] MEDS: Acetaminophen 325 MG TABLET 650 MG PO (09:06)
[2023-10-19] MEDS: 0.9 % Sodium Chloride Flush 3 ML SYRINGE IVFLUSH ×2 (09:06→13:11)
[2023-10-19] MEDS: Cyanocobalamin (Vitamin B-12) 1,000 MCG TABLET 1000 MCG PO (09:06)
--- NOTE | 2023-10-19 10:03 | HO.PM.IMPN ---
Subjective Subjective Date of Service: 10/19/23 Interval History: weakness Physical Exam Vital Signs: Vital Signs: Last Vital Signs Temp 98.3 F 10/19/23 07:38 Pulse 66 10/19/23 08:35 Resp 20 10/19/23 08:35 BP 136/90 H 10/19/23 07:38 Pulse Ox 96 10/19/23 07:38 O2 Del Method Room Air 10/19/23 07:38 O2 Flow Rate 2 10/19/23 03:58 BMI result Body Mass Index 24.2 Const: General: cooperative, healthy appearing, comfortable and no acute distress Orientation/consciousness: patient oriented x3 HEENT: Face and sinus: Yes normal facial exam Mouth: moist mucous membranes Neck: Neck: Yes normal visual inspection, Yes full ROM and Yes trachea midline Chest: Chest palpation & inspection: normal inspection of the chest Resp: Effort & Inspection: normal respiratory effort, able to speak in complete sentences and no respiratory distress GI: Inspection: Yes normal to inspection Back/Spine/Pelvis: Cervical Spine: normal cervical lordosis Thoracic/Lumbar Spine: thoracic and lumbar spine normal to inspection Skin: General skin exam: no rashes or lesions noted Neuro: General: patient oriented x3, tone normal and moves all extremities Extrem: General: Yes normal to inspection and Yes capillary refill normal Objective Data Active Medications Acetaminophen (Acetaminophen 325 Mg Tablet) 650 mg PO Q4H PRN PRN Reason: Pain, Mild (Pain Scale 1-3) Last Admin: 10/19/23 09:06 Dose: 650 mg Documented By: TRANG Amiodarone HCl (Amiodarone Hcl 200 Mg Tablet) 200 mg PO DAILY [facility] Last Admin: 10/19/23 09:05 Dose: 200 mg Documented By: TRANG Apixaban (Apixaban 5 Mg Tablet) 5 mg PO BID [facility] Last Admin: 10/19/23 09:05 Dose: 5 mg Documented By: TRANG Atorvastatin Calcium (Atorvastatin Calcium 80 Mg Tablet) 80 mg PO BEDTIME [facility] Last Admin: 10/18/23 21:20 Dose: 80 mg Documented By: AGUSTIN Clopidogrel Bisulfate (Clopidogrel Bisulfate 75 Mg Tablet) 75 mg PO DAILY [facility] Last Admin: 10/19/23 09:05 Dose: 75 mg Documented By: TRANG Cyanocobalamin (Cyanocobalamin (Vitamin B-12) 1,000 Mcg Tablet) 1,000 mcg PO DAILY [facility] Last Admin: 10/19/23 09:06 Dose: 1,000 mcg Documented By: TRANG Ferrous Sulfate (Ferrous Sulfate 324 Mg Tablet.) 324 mg PO BEDTIME [facility] Last Admin: 10/18/23 21:20 Dose: 324 mg Documented By: AGUSTIN Fluticasone/Vilanterol (Fluticasone/Vilanterol 100/25 Blst.W.Dev) 1 puff INHALE RDAILY [facility] Last Admin: 10/19/23 08:33 Dose: 1 puff Documented By: AZALEA Ceftriaxone Sodium 1 gm/ (Sodium Chloride) 50 mls @ 100 mls/hr IV Q24H [facility] Last Infusion: 10/18/23 13:15 Dose: Infused Documented By: JORGE Levothyroxine Sodium (Levothyroxine Sodium 50 Mcg Tablet) 50 mcg PO DAILY@0600 [facility] Last Admin: 10/19/23 05:41 Dose: 50 mcg Documented By: AGUSTIN Magnesium Oxide (Magnesium Oxide 400 Mg Tablet) 400 mg PO BIDPC [facility] Last Admin: 10/19/23 09:05 Dose: 400 mg Documented By: TRANG Melatonin (Melatonin 3 Mg Tablet) 9 mg PO BEDTIME [facility] Last Admin: 10/18/23 21:19 Dose: 9 mg Documented By: AGUSTIN Metoprolol Succinate (Metoprolol Succinate Er 50 Mg Tab.Er.24h) 50 mg PO DAILY [facility]; Protocol Last Admin: 10/19/23 09:05 Dose: 50 mg Documented By: TRANG Morphine Sulfate (Morphine Sulfate 2 Mg/Ml Cartridge) 2 mg IVPUSH Q3H PRN; Protocol PRN Reason: mpain Last Admin: 10/18/23 21:29 Dose: 2 mg Documented By: AGUSTIN Omeprazole (Omeprazole 20 Mg Capsule.) 20 mg PO DAILY [facility] Last Admin: 10/19/23 09:05 Dose: 20 mg Documented By: TRANG Paroxetine HCl (Paroxetine Hcl 40 Mg Tablet) 40 mg PO BEDTIME [facility] Last Admin: 10/18/23 21:20 Dose: 40 mg Documented By: AGUSTIN Sodium Chloride (0.9 % Sodium Chloride Flush 3 Ml Syringe) 3 ml IVFLUSH QSHIFT [facility] Last Admin: 10/19/23 09:06 Dose: 3 ml Documented By: TRANG Vitamin D (Cholecalciferol (Vitamin D3) 25 Mcg Tablet) 25 mcg PO DAILY [facility] Last Admin: 10/19/23 09:05 Dose: 25 mcg Documented By: TRANG Labs 10/19/23 05:31 10/19/23 05:31 Labs: Laboratory Results - last 24 hr 10/19/23 05:31 MCV 81.3 MCH 25.7 L MCHC 31.7 RDW 17.0 H Plt Count 276 MPV 10.0 Absolute Nucleated RBC 0.000 Nucleated RBC % (auto) 0.0 Anion Gap 12 Estim Creat Clear Calc 35.8 Estimated GFR 44 Fasting Glucose 98 Calcium 8.7 Magnesium 1.7 Microbiology Microbiology Results: Microbiology 10/15/23 12:48 Blood Culture - Final Blood - Venous Escherichia coli Assessment and Plan (1) Sepsis: Status: Acute Plan 68F PMH CAD, urinary retention and recurrent uti, MS, chronic systolic chf, persistent afib, CKD II, htn, hypothyroid, copd presented with suprapubic fullness, fever, ams Sepsis and acute metabolic encephalopathy due to acute pyelonephritis with GNR bacteremia Given 30 cc/kilos isotonic fluids in ED continue IV ceftriaxone urine and blood grew ecoli Hou placed, pvr not significant, has history of urinary retention, appreciated - voiding trial in 5-7 days MS holding interferon for acute illness no acute flare deconditioning pt recommending STR acute hpyokalemia, hypomagnesemia replaced Acute kidney injury on CKD 2 resolved CAD eliquis, statin Chronic systolic CHF stable continue metoprolol, holding lasix for natalie Persistent atrial fibrillation Amiodarone, apixaban, Toprol Hypothyroid Synthroid COPD Continue inhaler DVT prophylaxis-on apixaban Full code reason for continued hospitalization:safe dispo Quality Stroke Does the patient have a stroke diagnosis?: No VTE Prior VTE?: No VTE Risk Level:: Medical - moderate - high VTE Device Contraindication: Treatment Not Indicated VTE Drug Contraindication: N/A - Med Ordered
--- NOTE | 2023-10-19 10:07 | P.DS_ITS ---
DS: Providers Provider Date of Service: 10/19/23 Date of admission: 10/15/23 13:30 Primary care physician: Amina Whitfield MD Consults: 10/16/23 10:48 Consult to Wound Care Routine Reason for consultation: pink buttocks, boggy heels 10/17/23 08:09 Consult to Urology Routine Consulting Provider: Jalen Ramirez Reason for consultation: UTI urinary retention DS: Diagnosis Discharge Diagnosis (1) Sepsis: Status: Acute DS: Summary Hospital Course Hospital Course: from initial hpi: 68F PMH CAD, urinary retention and recurrent uti, MS, chronic systolic chf, persistent afib, CKD II, htn, hypothyroid, copd presented with suprapubic fullness, fever, ams. Patient reports feeling unwell for about 1 week. With suprapubic fullness and dysuria. As well as frequency. About 2 days prior to presentation started to have subjective fevers, significant decrease in appetite, felt so unwell on day of presentation used life alert to call ambulance. In ED found to be septic with fever, tachycardia, positive UA, natalie. hospital course: Patient was admitted for sepsis and acute metabolic encephalopathy due to acute pyelonephritis with E coli bacteremia likely due to neurogenic urinary retention. She received IV fluids, IV ceftriaxone, Hou catheter was placed, she was seen by Urology recommended voiding trial in 5-7 days. Sepsis and encephalopathy resolved. She will be discharged on 7 more days of cefuroxime. Due to deconditioning she was seen by physical therapy recommended short-term rehab. She is expected require less than 30 days. For history of multiple sclerosis she was not having an acute flare, interferon was held for acute illness. For acute hypokalemia and hypomagnesemia she received replacement. Patient had acute kidney injury on CKD due to dehydration, this resolved with IV fluids. For history of coronary disease she was continued on Plavix, statin, Eliquis. For chronic systolic CHF she presented hypovolemic, her Lasix was held and was given IV fluids, on discharge she can restart maintenance Lasix. She was continued on metoprolol. For persistent atrial fibrillation she was continued on amiodarone, Eliquis, Toprol. For hypothyroidism she was continued on Synthroid. For COPD she remained stable and continued on inhaled steroid and LABA. Patient is feeling better will be discharged to group home facility. Time Attestation Discharge coordination time: Greater than 30 minutes Quality: Safe Use of Opioids Does Pt have an Active Cancer Diagnosis on the Problem List?: No Quality: Stroke Does the patient have a stroke diagnosis?: No Physical Exam Vital Signs: Vital Signs: Last Vital Signs Temp 98.3 F 10/19/23 07:38 Pulse 66 10/19/23 08:35 Resp 20 10/19/23 08:35 BP 136/90 H 10/19/23 07:38 Pulse Ox 96 10/19/23 07:38 O2 Del Method Room Air 10/19/23 07:38 O2 Flow Rate 2 10/19/23 03:58 BMI result Body Mass Index 24.2 Const: General: cooperative, healthy appearing, comfortable and no acute distress Orientation/consciousness: patient oriented x3 HEENT: Face and sinus: Yes normal facial exam Mouth: moist mucous membranes Neck: Neck: Yes normal visual inspection, Yes full ROM and Yes trachea midline Chest: Chest palpation & inspection: normal inspection of the chest Resp: Effort & Inspection: normal respiratory effort, able to speak in complete sentences and no respiratory distress GI: Inspection: Yes normal to inspection Back/Spine/Pelvis: Cervical Spine: normal cervical lordosis Thoracic/Lumbar Spine: thoracic and lumbar spine normal to inspection Skin: General skin exam: no rashes or lesions noted Neuro: General: patient oriented x3, tone normal and moves all extremities Extrem: General: Yes normal to inspection and Yes capillary refill normal DS: Data Data Completed and Pending Completed studies during hospitalization [Text1]: Procedures Religious of Cardiac Rhythm, Single (09/13/21) Transfusion of Nonautologous Red Blood Cells into Peripheral Vein, Percutaneous Approach (05/29/23) Labs on day of discharge: Laboratory Results - last 24 hr 10/19/23 05:31 WBC 10.3 RBC 4.16 L Hgb 10.7 L Hct 33.8 L MCV 81.3 MCH 25.7 L MCHC 31.7 RDW 17.0 H Plt Count 276 MPV 10.0 Absolute Nucleated RBC 0.000 Nucleated RBC % (auto) 0.0 Sodium 141 Potassium 3.9 Chloride 110 H Carbon Dioxide 23 Anion Gap 12 BUN 15 Creatinine 1.21 Estim Creat Clear Calc 35.8 Estimated GFR 44 Fasting Glucose 98 Calcium 8.7 Magnesium 1.7 Preliminary micro results at discharge 10/15/23 12:43 Blood Culture - Preliminary Blood - Venous No growth after 48 hours. Discharge Plan Discharge Anticipated Discharge Date/Time: 10/19/23 10:05 Patient Disposition: Xfer SNF Discharge Diagnosis: sepsis, uti Referrals: Amina Whitfield MD [Primary Care Provider] - 1 Week Discharge Medications: New magnesium oxide 400 mg (241.3 mg magnesium) Tablet 400 mg PO BIDPC Qty: 0 0RF cefuroxime axetil 500 mg tablet 500 mg PO BID Qty: 14 0RF Continued Eliquis 5 mg tablet 5 mg PO BID Qty: 180 2RF albuterol sulfate 90 mcg/actuation HFA aerosol inhaler 2 puff inhalation Q4-6H PRN (Reason: shortness of breath or wheezing) 30 Days Qty: 8.5 2RF omeprazole 20 mg capsule,delayed release(DR/EC) 20 mg PO QAM Qty: 90 1RF ferrous sulfate 325 mg (65 mg iron) tablet 325 mg PO BEDTIME Qty: 90 0RF atorvastatin 80 mg tablet 80 mg PO BEDTIME Qty: 90 1RF amiodarone 200 mg tablet 200 mg PO DAILY 30 Days Qty: 30 5RF clopidogrel 75 mg tablet 75 mg PO DAILY Qty: 90 3RF furosemide 20 mg tablet 40 mg PO DAILY Qty: 60 1RF Protocol: Hold for SBP< HOLD for SBP < : 90 cyanocobalamin (vitamin B-12) [Vitamin B-12] 1,000 mcg Tablet 1,000 mcg PO DAILY cholecalciferol (vitamin D3) [Vitamin D3] 25 mcg (1,000 unit) Tablet 25 mcg PO DAILY melatonin 10 mg Tablet 10 mg PO BEDTIME paroxetine HCl 40 mg tablet 40 mg PO BEDTIME levothyroxine [Synthroid] 50 mcg tablet 50 mcg PO DAILY metoprolol succinate 50 mg tablet extended release 24 hr 50 mg PO DAILY fluticasone propion-salmeterol 113-14 mcg/actuation aerosol powdr breath activated 1 inh inhalation Q12H 30 Days Qty: 1 5RF Held Avonex 30 mcg/0.5 mL pen injector kit 30 mcg IM WE Hold Instructions: Resume on 11/03/23. Diet: Advance to usual diet Activity on Discharge: As tolerated Stand Alone Forms: Patient Portal Discharge page Care Plan Goals: recovery Health Concerns: uti, urianary retention Plan of Treatment: 7 more days ceftin, voiding trial in 5-7 days, follow up urology Assessment: see above
--- NOTE | 2023-10-19 10:29 | MHC.CM.PN ---
CM met with Patient to discuss dc planning. Patient is in agreement to go to [facility] but she does not want to go to [facility], [facility], nor [facility]. Patient has given permission for CM to initiate a SNF search and then informed CM that she has already filed an appeal (case # [id number]). CM explained that there is no dc order yet and a SNF bed has not yet been secured; Patient stated, then I can file again. CM will follow.
--- NOTE | 2023-10-19 12:01 | MHC.CM.PN ---
10/19/23 11:55 - Case Mgmt Progress Note by Carley Carvajal Acct Num: [id number] : 1955 Patient Age: 68 CM was provided a list of holiday weekend Contacts for area SNFs; CM called Printing Equipment Mechanic Oil Furnace Installer/Rebeca @ [phone] at [facility]. Rebeca indicated that she is not aware of the weekend admitting process and that she has no one even available to review referral and approve admissions. [facility] is Patient's first choice and a referral has been sent via [facility]. CM awaits a response from [facility], in [facility]. Initialized on 10/19/23 11:55 - END OF NOTE
--- NOTE | 2023-10-19 12:34 | MHC.CM.PN ---
CM did hear back from [facility] via [facility]; they are unable to offer a bed until at least Friday,10/21/2023, when their Business Office is available to look into Patient's SNF co-pay days. CM met with Patient who wishers to continue with her appeal.CM will follow.CM has informed CM Automotive Porter/Petty via tiger text.
[2023-10-19] MEDS: cefTRIAXone sodium 1 GM in 0.9 % Sodium Chloride 50 ML IV (13:11)
[2023-10-19] MEDS: PARoxetine HCL 40 MG TABLET PO (20:03)
[2023-10-19] MEDS: Atorvastatin Calcium 80 MG TABLET PO (20:03)
[2023-10-19] MEDS: Melatonin 3 MG TABLET 9 MG PO (20:03)
[2023-10-19] MEDS: Ferrous Sulfate 324 MG TABLET.DR PO (20:03)
[2023-10-20] VITALS (7 sets, daily range): BP systolic 110–153; BP diastolic 53–72; PULSE 50–57; RESP 16–20; TEMP 36.1–36.8; O2SAT 97–100
[2023-10-20] MEDS: 0.9 % Sodium Chloride Flush 3 ML SYRINGE IVFLUSH ×4 (02:40→23:59)
[2023-10-20] MEDS: Levothyroxine Sodium 50 MCG TABLET PO (06:31)
[2023-10-20] MEDS: Fluticasone/Vilanterol 100/25 BLST.W.DEV 1 PUFF INHALE (07:35)
--- NOTE | 2023-10-20 08:11 | P.PNIM_ITS ---
Subjective Subjective Date of Service: 10/20/23 Interval History: weakness Physical Exam 2 Vital Signs: Vital Signs: Last Vital Signs Temp 97.2 F 10/20/23 07:13 Pulse 55 10/20/23 07:35 Resp 16 10/20/23 07:35 BP 153/72 H 10/20/23 07:13 Pulse Ox 97 10/20/23 07:13 O2 Del Method Room Air 10/20/23 07:13 O2 Flow Rate 2 10/19/23 03:58 BMI result Body Mass Index 24.2 Const: General: cooperative, healthy appearing, comfortable and no acute distress Orientation/consciousness: patient oriented x3 HEENT: Face and sinus: Yes normal facial exam Mouth: moist mucous membranes Neck: Neck: Yes normal visual inspection, Yes full ROM and Yes trachea midline Chest: Chest palpation & inspection: normal inspection of the chest Resp: Effort & Inspection: normal respiratory effort, able to speak in complete sentences and no respiratory distress GI: Inspection: Yes normal to inspection Back/Spine/Pelvis: Cervical Spine: normal cervical lordosis Thoracic/Lumbar Spine: thoracic and lumbar spine normal to inspection Skin: General skin exam: no rashes or lesions noted Neuro: General: patient oriented x3, tone normal and moves all extremities Extrem: General: Yes normal to inspection and Yes capillary refill normal Objective Data Active Medications Acetaminophen (Acetaminophen 325 Mg Tablet) 650 mg PO Q4H PRN PRN Reason: Pain, Mild (Pain Scale 1-3) Last Admin: 10/19/23 09:06 Dose: 650 mg Documented By: TRANG Amiodarone HCl (Amiodarone Hcl 200 Mg Tablet) 200 mg PO DAILY [facility] Last Admin: 10/19/23 09:05 Dose: 200 mg Documented By: TRANG Apixaban (Apixaban 5 Mg Tablet) 5 mg PO BID [facility] Last Admin: 10/19/23 20:03 Dose: 5 mg Documented By: IVETTE Atorvastatin Calcium (Atorvastatin Calcium 80 Mg Tablet) 80 mg PO BEDTIME [facility] Last Admin: 10/19/23 20:03 Dose: 80 mg Documented By: IVETTE Clopidogrel Bisulfate (Clopidogrel Bisulfate 75 Mg Tablet) 75 mg PO DAILY [facility] Last Admin: 10/19/23 09:05 Dose: 75 mg Documented By: TRANG Cyanocobalamin (Cyanocobalamin (Vitamin B-12) 1,000 Mcg Tablet) 1,000 mcg PO DAILY [facility] Last Admin: 10/19/23 09:06 Dose: 1,000 mcg Documented By: TRANG Ferrous Sulfate (Ferrous Sulfate 324 Mg Tablet.) 324 mg PO BEDTIME [facility] Last Admin: 10/19/23 20:03 Dose: 324 mg Documented By: IVETTE Fluticasone/Vilanterol (Fluticasone/Vilanterol 100/25 Blst.W.Dev) 1 puff INHALE RDAILY [facility] Last Admin: 10/20/23 07:35 Dose: 1 puff Documented By: NILES Ceftriaxone Sodium 1 gm/ (Sodium Chloride) 50 mls @ 100 mls/hr IV Q24H [facility] Last Infusion: 10/19/23 14:42 Dose: Infused Documented By: TRANG Levothyroxine Sodium (Levothyroxine Sodium 50 Mcg Tablet) 50 mcg PO DAILY@0600 [facility] Last Admin: 10/20/23 06:31 Dose: 50 mcg Documented By: MUKUND Magnesium Oxide (Magnesium Oxide 400 Mg Tablet) 400 mg PO BIDPC [facility] Last Admin: 10/19/23 16:22 Dose: 400 mg Documented By: TRANG Melatonin (Melatonin 3 Mg Tablet) 9 mg PO BEDTIME [facility] Last Admin: 10/19/23 20:03 Dose: 9 mg Documented By: IVETTE Metoprolol Succinate (Metoprolol Succinate Er 50 Mg Tab.Er.24h) 50 mg PO DAILY [facility]; Protocol Last Admin: 10/19/23 09:05 Dose: 50 mg Documented By: TRANG Morphine Sulfate (Morphine Sulfate 2 Mg/Ml Cartridge) 2 mg IVPUSH Q3H PRN; Protocol PRN Reason: mpain Last Admin: 10/18/23 21:29 Dose: 2 mg Documented By: AGUSTIN Omeprazole (Omeprazole 20 Mg Capsule.) 20 mg PO DAILY [facility] Last Admin: 10/19/23 09:05 Dose: 20 mg Documented By: TRANG Paroxetine HCl (Paroxetine Hcl 40 Mg Tablet) 40 mg PO BEDTIME [facility] Last Admin: 10/19/23 20:03 Dose: 40 mg Documented By: IVETTE Sodium Chloride (0.9 % Sodium Chloride Flush 3 Ml Syringe) 3 ml IVFLUSH QSHIFT [facility] Last Admin: 10/20/23 02:40 Dose: 3 ml Documented By: MUKUND Vitamin D (Cholecalciferol (Vitamin D3) 25 Mcg Tablet) 25 mcg PO DAILY [facility] Last Admin: 10/19/23 09:05 Dose: 25 mcg Documented By: TRANG Labs 10/19/23 05:31 10/19/23 05:31 Assessment and Plan (1) Sepsis: Status: Acute Plan 68F PMH CAD, urinary retention and recurrent uti, MS, chronic systolic chf, persistent afib, CKD II, htn, hypothyroid, copd presented with suprapubic fullness, fever, ams Sepsis and acute metabolic encephalopathy due to acute pyelonephritis with GNR bacteremia Given 30 cc/kilos isotonic fluids in ED continue IV ceftriaxone urine and blood grew ecoli Hou placed, pvr not significant, has history of urinary retention, appreciated - voiding trial in 5-7 days MS holding interferon for acute illness no acute flare deconditioning pt recommending STR acute hpyokalemia, hypomagnesemia replaced Acute kidney injury on CKD 2 resolved CAD eliquis, statin Chronic systolic CHF stable continue metoprolol, holding lasix for natalie Persistent atrial fibrillation Amiodarone, apixaban, Toprol Hypothyroid Synthroid COPD Continue inhaler DVT prophylaxis-on apixaban Full code reason for continued hospitalization:appealing discharge Quality Stroke Does the patient have a stroke diagnosis?: No VTE Prior VTE?: No VTE Risk Level:: Medical - moderate - high VTE Device Contraindication: Treatment Not Indicated VTE Drug Contraindication: N/A - Med Ordered
[2023-10-20] MEDS: Cholecalciferol (Vitamin D3) 25 MCG TABLET PO (09:29)
[2023-10-20] MEDS: Apixaban 5 MG TABLET PO ×2 (09:29→21:50)
[2023-10-20] MEDS: Omeprazole 20 MG CAPSULE.DR PO (09:29)
[2023-10-20] MEDS: Metoprolol Succinate ER 50 MG TAB.ER.24H PO (09:29)
[2023-10-20] MEDS: Amiodarone HCL 200 MG TABLET PO (09:29)
[2023-10-20] MEDS: Cyanocobalamin (Vitamin B-12) 1,000 MCG TABLET 1000 MCG PO (09:29)
[2023-10-20] MEDS: Clopidogrel Bisulfate 75 MG TABLET PO (09:29)
[2023-10-20] MEDS: Magnesium Oxide 400 MG TABLET PO ×2 (09:29→16:11)
[2023-10-20] MEDS: Acetaminophen 325 MG TABLET 650 MG PO (09:30)
[2023-10-20] MEDS: cefTRIAXone sodium 1 GM in 0.9 % Sodium Chloride 50 ML IV (12:25)
[2023-10-20] MEDS: Melatonin 3 MG TABLET 9 MG PO (21:50)
[2023-10-20] MEDS: PARoxetine HCL 40 MG TABLET PO (21:50)
[2023-10-20] MEDS: Atorvastatin Calcium 80 MG TABLET PO (21:50)
[2023-10-20] MEDS: Ferrous Sulfate 324 MG TABLET.DR PO (21:50)
[2023-10-21] VITALS (8 sets, daily range): BP systolic 95–135; BP diastolic 52–63; PULSE 45–64; RESP 18–20; TEMP 36.2–36.8; O2SAT 96–100
[2023-10-21] MEDS: Levothyroxine Sodium 50 MCG TABLET PO (05:34)
[2023-10-21] MEDS: Fluticasone/Vilanterol 100/25 BLST.W.DEV 1 PUFF INHALE (08:36)
--- NOTE | 2023-10-21 08:50 | P.PNIM_ITS ---
Subjective Subjective Date of Service: 10/21/23 Interval History: weakness Physical Exam 2 Vital Signs: Vital Signs: Last Vital Signs Temp 97.8 F 10/21/23 07:07 Pulse 47 L 10/21/23 08:37 Resp 18 10/21/23 08:37 BP 134/62 10/21/23 08:28 Pulse Ox 97 10/21/23 08:28 O2 Del Method Room Air 10/21/23 07:07 O2 Flow Rate 2 10/19/23 03:58 BMI result Body Mass Index 24.2 Const: General: cooperative, healthy appearing, comfortable and no acute distress Orientation/consciousness: patient oriented x3 HEENT: Face and sinus: Yes normal facial exam Mouth: moist mucous membranes Neck: Neck: Yes normal visual inspection, Yes full ROM and Yes trachea midline Chest: Chest palpation & inspection: normal inspection of the chest Resp: Effort & Inspection: normal respiratory effort, able to speak in complete sentences and no respiratory distress GI: Inspection: Yes normal to inspection Back/Spine/Pelvis: Cervical Spine: normal cervical lordosis Thoracic/Lumbar Spine: thoracic and lumbar spine normal to inspection Skin: General skin exam: no rashes or lesions noted Neuro: General: patient oriented x3, tone normal and moves all extremities Extrem: General: Yes normal to inspection and Yes capillary refill normal Objective Data Active Medications Acetaminophen (Acetaminophen 325 Mg Tablet) 650 mg PO Q4H PRN PRN Reason: Pain, Mild (Pain Scale 1-3) Last Admin: 10/20/23 09:30 Dose: 650 mg Documented By: TRANG Amiodarone HCl (Amiodarone Hcl 200 Mg Tablet) 200 mg PO DAILY [facility] Last Admin: 10/20/23 09:29 Dose: 200 mg Documented By: TRANG Apixaban (Apixaban 5 Mg Tablet) 5 mg PO BID [facility] Last Admin: 10/20/23 21:50 Dose: 5 mg Documented By: MAMIE Atorvastatin Calcium (Atorvastatin Calcium 80 Mg Tablet) 80 mg PO BEDTIME [facility] Last Admin: 10/20/23 21:50 Dose: 80 mg Documented By: MAMIE Clopidogrel Bisulfate (Clopidogrel Bisulfate 75 Mg Tablet) 75 mg PO DAILY [facility] Last Admin: 10/20/23 09:29 Dose: 75 mg Documented By: TRANG Cyanocobalamin (Cyanocobalamin (Vitamin B-12) 1,000 Mcg Tablet) 1,000 mcg PO DAILY [facility] Last Admin: 10/20/23 09:29 Dose: 1,000 mcg Documented By: TRANG Ferrous Sulfate (Ferrous Sulfate 324 Mg Tablet.) 324 mg PO BEDTIME [facility] Last Admin: 10/20/23 21:50 Dose: 324 mg Documented By: MAMIE Fluticasone/Vilanterol (Fluticasone/Vilanterol 100/25 Blst.W.Dev) 1 puff INHALE RDAILY [facility] Last Admin: 10/21/23 08:36 Dose: 1 puff Documented By: ROSEMARIE Ceftriaxone Sodium 1 gm/ (Sodium Chloride) 50 mls @ 100 mls/hr IV Q24H [facility] Last Infusion: 10/20/23 13:05 Dose: Infused Documented By: TRANG Levothyroxine Sodium (Levothyroxine Sodium 50 Mcg Tablet) 50 mcg PO DAILY@0600 [facility] Last Admin: 10/21/23 05:34 Dose: 50 mcg Documented By: AGNIESZKA Magnesium Oxide (Magnesium Oxide 400 Mg Tablet) 400 mg PO BIDPC [facility] Last Admin: 10/20/23 16:11 Dose: 400 mg Documented By: TRANG Melatonin (Melatonin 3 Mg Tablet) 9 mg PO BEDTIME [facility] Last Admin: 10/20/23 21:50 Dose: 9 mg Documented By: MAMIE Metoprolol Succinate (Metoprolol Succinate Er 50 Mg Tab.Er.24h) 50 mg PO DAILY [facility]; Protocol Last Admin: 10/20/23 09:29 Dose: 50 mg Documented By: TRANG Morphine Sulfate (Morphine Sulfate 2 Mg/Ml Cartridge) 2 mg IVPUSH Q3H PRN; Protocol PRN Reason: mpain Last Admin: 10/18/23 21:29 Dose: 2 mg Documented By: AGUSTIN Omeprazole (Omeprazole 20 Mg Capsule.) 20 mg PO DAILY [facility] Last Admin: 10/20/23 09:29 Dose: 20 mg Documented By: TRANG Paroxetine HCl (Paroxetine Hcl 40 Mg Tablet) 40 mg PO BEDTIME [facility] Last Admin: 10/20/23 21:50 Dose: 40 mg Documented By: MAMIE Sodium Chloride (0.9 % Sodium Chloride Flush 3 Ml Syringe) 3 ml IVFLUSH QSHIFT [facility] Last Admin: 10/20/23 23:59 Dose: 3 ml Documented By: AGNIESZKA Vitamin D (Cholecalciferol (Vitamin D3) 25 Mcg Tablet) 25 mcg PO DAILY [facility] Last Admin: 10/20/23 09:29 Dose: 25 mcg Documented By: TRANG Labs 10/19/23 05:31 10/19/23 05:31 Microbiology Microbiology Results: Microbiology 10/15/23 12:43 Blood Culture - Final Blood - Venous No growth after 5 days. Assessment and Plan (1) Sepsis: Status: Acute Plan 68F PMH CAD, urinary retention and recurrent uti, MS, chronic systolic chf, persistent afib, CKD II, htn, hypothyroid, copd presented with suprapubic fullness, fever, ams Sepsis and acute metabolic encephalopathy due to acute pyelonephritis with GNR bacteremia Given 30 cc/kilos isotonic fluids in ED continue IV ceftriaxone urine and blood grew ecoli Hou placed, pvr not significant, has history of urinary retention, appreciated - voiding trial in 5-7 days (approx 10/25/23) MS holding interferon for acute illness no acute flare deconditioning pt recommending STR acute hpyokalemia, hypomagnesemia replaced Acute kidney injury on CKD 2 resolved CAD eliquis, statin Chronic systolic CHF stable continue metoprolol, lasix has been on hold for natalie and hypovolemia Persistent atrial fibrillation Amiodarone, apixaban, Toprol Hypothyroid Synthroid COPD Continue inhaler DVT prophylaxis-on apixaban Full code reason for continued hospitalization:appealing discharge Quality Stroke Does the patient have a stroke diagnosis?: No VTE Prior VTE?: No VTE Risk Level:: Medical - moderate - high VTE Device Contraindication: Treatment Not Indicated VTE Drug Contraindication: N/A - Med Ordered
[2023-10-21] MEDS: Cholecalciferol (Vitamin D3) 25 MCG TABLET PO (08:58)
[2023-10-21] MEDS: Amiodarone HCL 200 MG TABLET PO (08:58)
[2023-10-21] MEDS: Clopidogrel Bisulfate 75 MG TABLET PO (08:58)
[2023-10-21] MEDS: 0.9 % Sodium Chloride Flush 3 ML SYRINGE IVFLUSH ×3 (08:58→20:24)
[2023-10-21] MEDS: Omeprazole 20 MG CAPSULE.DR PO (08:59)
[2023-10-21] MEDS: Cyanocobalamin (Vitamin B-12) 1,000 MCG TABLET 1000 MCG PO (08:59)
[2023-10-21] MEDS: Metoprolol Succinate ER 50 MG TAB.ER.24H PO (08:59)
[2023-10-21] MEDS: Apixaban 5 MG TABLET PO ×2 (08:59→20:23)
[2023-10-21] MEDS: Magnesium Oxide 400 MG TABLET PO ×2 (08:59→16:06)
[2023-10-21] MEDS: cefTRIAXone sodium 1 GM in 0.9 % Sodium Chloride 50 ML IV (13:18)
[2023-10-21] MEDS: Melatonin 3 MG TABLET 9 MG PO (20:23)
[2023-10-21] MEDS: PARoxetine HCL 40 MG TABLET PO (20:23)
[2023-10-21] MEDS: Atorvastatin Calcium 80 MG TABLET PO (20:23)
[2023-10-21] MEDS: Ferrous Sulfate 324 MG TABLET.DR PO (20:23)
[2023-10-22 03:43] VITALS: BP 122/72; PULSE 109; RESP 18; TEMP 37.2; O2SAT 98
[2023-10-22] MEDS: Levothyroxine Sodium 50 MCG TABLET PO (05:23)
[2023-10-22 07:03] VITALS: BP 145/65; PULSE 54; RESP 20; TEMP 36.2; O2SAT 98
[2023-10-22] MEDS: Fluticasone/Vilanterol 100/25 BLST.W.DEV 1 PUFF INHALE (07:37)
[2023-10-22 07:40] VITALS: PULSE 83; RESP 16; O2SAT 98
[2023-10-22] MEDS: Cyanocobalamin (Vitamin B-12) 1,000 MCG TABLET 1000 MCG PO (08:45)
[2023-10-22] MEDS: Amiodarone HCL 200 MG TABLET PO (08:45)
[2023-10-22] MEDS: Clopidogrel Bisulfate 75 MG TABLET PO (08:45)
[2023-10-22] MEDS: Metoprolol Succinate ER 50 MG TAB.ER.24H PO (08:45)
[2023-10-22] MEDS: Omeprazole 20 MG CAPSULE.DR PO (08:45)
[2023-10-22] MEDS: Cholecalciferol (Vitamin D3) 25 MCG TABLET PO (08:45)
[2023-10-22] MEDS: Magnesium Oxide 400 MG TABLET PO (08:45)
[2023-10-22] MEDS: Apixaban 5 MG TABLET PO (08:45)
[2023-10-22] MEDS: 0.9 % Sodium Chloride Flush 3 ML SYRINGE IVFLUSH (08:46)
--- NOTE | 2023-10-22 09:47 | MHC.CM.PN ---
Per CM/[employer]ic [employer]/Petty, Patient lost her first appeal with [employer] and has chosen to appeal the lost appeal. CM will follow.
--- NOTE | 2023-10-22 10:18 | PM.DS ---
DS: Providers Provider Date of Service: 10/22/23 Date of admission: 10/15/23 13:30 Primary care physician: Amina Whitfield MD Consults: 10/16/23 10:48 Consult to Wound Care Routine Reason for consultation: pink buttocks, boggy heels 10/17/23 08:09 Consult to Urology Routine Consulting Provider: Jalen Ramirez Reason for consultation: UTI urinary retention DS: Diagnosis Discharge Diagnosis (1) Sepsis: Status: Acute (2) SUSAN (acute kidney injury): Status: Acute (3) UTI (urinary tract infection): Status: Acute (4) Bacteremia due to Escherichia coli: Status: Acute DS: Summary Hospital Course Hospital Course: from initial hpi: 68F PMH CAD, urinary retention and recurrent uti, MS, chronic systolic chf, persistent afib, CKD II, htn, hypothyroid, copd presented with suprapubic fullness, fever, ams. Patient reports feeling unwell for about 1 week. With suprapubic fullness and dysuria. As well as frequency. About 2 days prior to presentation started to have subjective fevers, significant decrease in appetite, felt so unwell on day of presentation used life alert to call ambulance. In ED found to be septic with fever, tachycardia, positive UA, susan. hospital course: Patient was admitted for sepsis and acute metabolic encephalopathy due to acute pyelonephritis with E coli bacteremia likely due to neurogenic urinary retention. She received IV fluids, IV ceftriaxone, Hou catheter was placed, she was seen by Urology recommended voiding trial in 5-7 days. Sepsis and encephalopathy resolved. She will be discharged on 7 more days of cefuroxime. Due to deconditioning she was seen by physical therapy recommended short-term rehab. She is expected require less than 30 days. For history of multiple sclerosis she was not having an acute flare, interferon was held for acute illness. For acute hypokalemia and hypomagnesemia she received replacement. Patient had acute kidney injury on CKD due to dehydration, this resolved with IV fluids. For history of coronary disease she was continued on Plavix, statin, Eliquis. For chronic systolic CHF she presented hypovolemic, her Lasix was held and was given IV fluids, on discharge she can restart maintenance Lasix. She was continued on metoprolol. For persistent atrial fibrillation she was continued on amiodarone, Eliquis, Toprol. For hypothyroidism she was continued on Synthroid. For COPD she remained stable and continued on inhaled steroid and LABA. Patient is feeling better will be discharged to care home facility. Plan: 7 more days ceftin voiding trial in 5-7 days follow up with urology Time Attestation Discharge coordination time: Greater than 30 minutes Quality: Safe Use of Opioids Does Pt have an Active Cancer Diagnosis on the Problem List?: No Quality: Stroke Does the patient have a stroke diagnosis?: No Physical Exam Vital Signs: Vital Signs: Last Vital Signs Temp 97.1 F 10/22/23 07:03 Pulse 83 10/22/23 07:40 Resp 16 10/22/23 07:40 BP 145/65 H 10/22/23 07:03 Pulse Ox 98 10/22/23 07:03 O2 Del Method Room Air 10/22/23 07:03 O2 Flow Rate 2 10/19/23 03:58 BMI result Body Mass Index 24.2 Const: General: cooperative, healthy appearing, comfortable and no acute distress Orientation/consciousness: patient oriented x3 HEENT: Face and sinus: Yes normal facial exam Mouth: moist mucous membranes Neck: Neck: Yes normal visual inspection, Yes full ROM and Yes trachea midline Chest: Chest palpation & inspection: normal inspection of the chest Resp: Effort & Inspection: normal respiratory effort, able to speak in complete sentences and no respiratory distress GI: Inspection: Yes normal to inspection Back/Spine/Pelvis: Cervical Spine: normal cervical lordosis Thoracic/Lumbar Spine: thoracic and lumbar spine normal to inspection Skin: General skin exam: no rashes or lesions noted Neuro: General: patient oriented x3, tone normal and moves all extremities Extrem: General: Yes normal to inspection and Yes capillary refill normal DS: Data Data Completed and Pending Completed studies during hospitalization [Text1]: Procedures Alevism of Cardiac Rhythm, Single (09/13/21) Transfusion of Nonautologous Red Blood Cells into Peripheral Vein, Percutaneous Approach (05/29/23) Imaging Chest x-ray: Radiologist's impression: ITS Impressions Chest X-Ray 10/15/23 13:30 IMPRESSION: Minimal scarring or subsegmental atelectasis at the right base. Abdomen/Pelvis CT 10/15/23 13:57 IMPRESSION: 1. New bilateral pelvocaliectasis, left greater than right with perinephric stranding, left greater than right. No obstructing calculi are seen. Findings could be secondary to pyelonephritis. Please correlate with urinalysis. 2. Other incidental findings as described above. Fleischner guidelines were followed. Discharge Plan Discharge Anticipated Discharge Date/Time: 10/19/23 10:05 Patient Disposition: Xfer [facility] Discharge Diagnosis: sepsis, uti Referrals: [facility] [Outside] - 1 Week Amina Whitfield MD [Primary Care Provider] - 1 Week Discharge Medications: New magnesium oxide 400 mg (241.3 mg magnesium) Tablet 400 mg PO BIDPC Qty: 0 0RF cefuroxime axetil 500 mg tablet 500 mg PO BID Qty: 14 0RF Continued Eliquis 5 mg tablet 5 mg PO BID Qty: 180 2RF albuterol sulfate 90 mcg/actuation HFA aerosol inhaler 2 puff inhalation Q4-6H PRN (Reason: shortness of breath or wheezing) 30 Days Qty: 8.5 2RF omeprazole 20 mg capsule,delayed release(DR/EC) 20 mg PO QAM Qty: 90 1RF ferrous sulfate 325 mg (65 mg iron) tablet 325 mg PO BEDTIME Qty: 90 0RF atorvastatin 80 mg tablet 80 mg PO BEDTIME Qty: 90 1RF amiodarone 200 mg tablet 200 mg PO DAILY 30 Days Qty: 30 5RF clopidogrel 75 mg tablet 75 mg PO DAILY Qty: 90 3RF furosemide 20 mg tablet 40 mg PO DAILY Qty: 60 1RF Protocol: Hold for SBP< HOLD for SBP < : 90 cyanocobalamin (vitamin B-12) [Vitamin B-12] 1,000 mcg Tablet 1,000 mcg PO DAILY cholecalciferol (vitamin D3) [Vitamin D3] 25 mcg (1,000 unit) Tablet 25 mcg PO DAILY melatonin 10 mg Tablet 10 mg PO BEDTIME paroxetine HCl 40 mg tablet 40 mg PO BEDTIME levothyroxine [Synthroid] 50 mcg tablet 50 mcg PO DAILY metoprolol succinate 50 mg tablet extended release 24 hr 50 mg PO DAILY fluticasone propion-salmeterol 113-14 mcg/actuation aerosol powdr breath activated 1 inh inhalation Q12H 30 Days Qty: 1 5RF Held Avonex 30 mcg/0.5 mL pen injector kit 30 mcg IM WE Hold Instructions: Resume on 01/08/24. Discharge Orders: Discharge Order (Routine); Ordered 10/22/23 Ordered By: Sawyer Rogers Diet: Advance to usual diet Activity on Discharge: As tolerated Stand Alone Forms: Patient Portal Discharge page Care Plan Goals: recovery Health Concerns: uti, urianary retention Plan of Treatment: - 7 more days ceftin - voiding trial in 5-7 days - follow up with urology Assessment: see above
--- NOTE | 2023-10-22 10:19 | MHC.CM.PN ---
Patient has accepted a bed offer from [facility] and she would like to be dc'd before noon today (CM/Kiln Maintenance/Petty has been notified). Patient will dc to [facility] today at 11:30 AM, [facility]. BLAISE has informed Patient's Sister/HCP/Aliya @ [phone] of the dc plan.
[2023-10-22 10:57] VITALS: BP 124/58; PULSE 51; RESP 18; TEMP 36.3; O2SAT 98
[2023-10-22] MEDS: cefTRIAXone sodium 1 GM in 0.9 % Sodium Chloride 50 ML IV (13:31)
== END 2023-10-22 14:07 | disposition skilled nursing facility (03) | DRG 871 ==
LOC: HO.ED 13:20 → HO.EDOVER 13:33 → HO.IMC 16:18
PROVIDERS: Physician Assistant; Admitting Provider Internal Medicine; Emergency Provider Emergency Medicine Emergency Medical Services; PCP Internal Medicine; Visit Provider Student in an Organized Health Care Education/Training Program
DX: A41.9 Sepsis, unspecified organism (principal); G93.41 Metabolic encephalopathy; I13.0 Hypertensive heart and chronic kidney disease with heart failure and stage 1 through stage 4 chronic kidney disease, or unspecified chronic kidney disease; I50.22 Chronic systolic (congestive) heart failure; N17.9 Acute kidney failure, unspecified; I48.19 Other persistent atrial fibrillation; N10 Acute pyelonephritis; G35 Multiple sclerosis; N31.8 Other neuromuscular dysfunction of bladder; B96.20 Unspecified Escherichia coli [E. coli] as the cause of diseases classified elsewhere; R33.8 Other retention of urine; E03.9 Hypothyroidism, unspecified; E83.42 Hypomagnesemia; K59.00 Constipation, unspecified; E87.6 Hypokalemia; J44.9 Chronic obstructive pulmonary disease, unspecified; I25.10 Atherosclerotic heart disease of native coronary artery without angina pectoris; N18.2 Chronic kidney disease, stage 2 (mild); Z20.822 Contact with and (suspected) exposure to COVID-19; Z87.891 Personal history of nicotine dependence; Z87.440 Personal history of urinary (tract) infections; Z79.02 Long term (current) use of antithrombotics/antiplatelets; Z79.51 Long term (current) use of inhaled steroids; Z79.890 Hormone replacement therapy; Z79.899 Other long term (current) drug therapy
CPT/HCPCS: 36415; 71045; 74176; 80048; 80053; 81001; 83605; 83735; 85025; 85027; 87040; 87077; 87086; 87088; 87186; 87205; 87502; 87635; 93005; 94640; 97110; 97116; 97162; 99285; C1758; J0696; J2270; J3480; J7120

== ENCOUNTER → 2023-10-15 12:28 | Outpatient (BNV) | payer MEDICARE, BC, SELFPAY | PROVIDERS: Admitting Provider Internal Medicine; Emergency Provider Emergency Medicine Emergency Medical Services; PCP Internal Medicine; Visit Provider Internal Medicine Cardiovascular Disease | DX: R94.31 Abnormal electrocardiogram [ECG] [EKG] (principal) | CPT/HCPCS: 93010 ==

== ENCOUNTER → 2023-10-15 13:30 | Outpatient (BNV) | payer MEDICARE, BC, SELFPAY | PROVIDERS: Admitting Provider Internal Medicine; Emergency Provider Emergency Medicine Emergency Medical Services; PCP Internal Medicine; Visit Provider Urology | DX: A41.9 Sepsis, unspecified organism (principal); N31.9 Neuromuscular dysfunction of bladder, unspecified | CPT/HCPCS: 99222 ==

== ENCOUNTER → 2023-10-15 13:30 | Outpatient (BNV) | payer MEDICARE, BC, SELFPAY | PROVIDERS: Admitting Provider Internal Medicine; Emergency Provider Emergency Medicine Emergency Medical Services; PCP Internal Medicine; Visit Provider Internal Medicine | DX: A41.51 Sepsis due to Escherichia coli [E. coli] (principal); N17.9 Acute kidney failure, unspecified; N18.2 Chronic kidney disease, stage 2 (mild); N39.0 Urinary tract infection, site not specified | CPT/HCPCS: 99223; 99232; 99239 ==

== ENCOUNTER 2023-12-19 14:07 | Outpatient (REF) | payer MEDICARE, BC, SELFPAY ==
--- NOTE | ~2023-12-19 | CT_ITS ---
EXAMINATION: CT CHEST WITHOUT CONTRAST CLINICAL INFORMATION: Solitary pulmonary nodule. COMPARISON: Chest x-ray 10/15/2023. CT chest 01/13/2023. TECHNIQUE: Multidetector volumetric CT imaging of the chest was done. Axial MIP volume rendering provided. Sagittal and coronal reformatted images were obtained. This CT examination was performed using dose optimization techniques as appropriate, variously including the following: *Automated exposure control *Adjustment of mA and/or kV according to patient size (this includes techniques or standardized protocols for targeted exams where dose is matched to indication/reason for exam; i.e. extremities or head) *Use of iterative reconstruction technique DLP: 126 mGy-cm FINDINGS: DRAG SEINER: Well-inflated lungs. LUNGS: There is a 2.3 x 1.8 x 0.7 cm density in the right middle lobe. Previously, it measured 3 x 1.5 cm and appears slightly decreased in size. There is no additional density, mass or nodule seen. MEDIASTINUM: The thyroid lobes are symmetric and normal. The central trachea and bronchi are widely patent. Heart size and the great vessels are normal caliber. No pericardial effusion seen. Benign right pretracheal lymph node seen. No additional lymph nodes seen. CORONARY ARTERY CALCIFICATION: Mild coronary artery calcifications are present. Also visualized is aortic and mitral valve mild calcifications. PLEURA: There are small bilateral pleural effusions slightly greater on the left. No calcified pleural plaques or thickening seen. AXILLA: No abnormal size axillary lymph nodes or chest wall mass seen. UPPER ABDOMEN: Visualized liver, spleen, pancreas and bilateral adrenal glands are unremarkable. OSSEOUS STRUCTURES: No aggressive lytic or sclerotic process seen. CT/CT chest wo IV con IMPRESSION: Right middle lobe masslike density appears smaller. No additional lung nodules or mass seen. There is new bilateral small pleural effusions. Fleischner guidelines were followed.
--- NOTE | ~2023-12-19 | XR_ITS ---
EXAMINATION: XR KNEE, LEFT CLINICAL INFORMATION: Reason for Exam LEFT HIP, LEFT KNEE PAIN COMPARISON: Femur radiographs 01/10/2020 TECHNIQUE: 4 views of the knee FINDINGS: No acute fracture or dislocation. Joint spaces are maintained. No joint effusion. Mineralization within the tibiofemoral joint space which can be seen in the setting of chondrocalcinosis. Partially imaged vascular stent. XR/XR knee LT 4V IMPRESSION: 1. No acute fracture or dislocation. 2. Mineralization within the tibiofemoral joint space which can be seen in the setting of chondrocalcinosis.
--- NOTE | ~2023-12-19 | XR_ITS ---
EXAMINATION: XR HIP, LEFT CLINICAL INFORMATION: Reason for Exam LEFT HIP/LEFT KNEE PAIN COMPARISON: Femur radiographs 01/10/2020 TECHNIQUE: Two views of the hip. FINDINGS: No acute fracture or dislocation. Moderate to advanced osteoarthritis of the left hip progressed from prior with near complete loss of joint space and bulky osteophytes. Atherosclerotic vascular calcification and vascular stent. Similar soft tissue calcifications along the left mid femoral diaphysis which may reflect sequelae of prior trauma. XR/XR hip LT min 2V IMPRESSION: 1. Moderate to advanced osteoarthritis of the left hip progressed from prior with near complete loss of joint space and bulky osteophytes.
== END 2023-12-19 14:08 | disposition home or self-care (01) ==
LOC: HO.CT 14:07
PROVIDERS: Absent Provider Internal Medicine; PCP Internal Medicine; Visit Provider Internal Medicine
DX: R91.1 Solitary pulmonary nodule (principal); M17.0 Bilateral primary osteoarthritis of knee; M16.0 Bilateral primary osteoarthritis of hip
CPT/HCPCS: 71250; 73502; 73564

== ENCOUNTER 2023-12-25 15:08 | Outpatient (AMB) | payer MEDICARE, BC, SELFPAY ==
[2023-12-25 15:12] VITALS: BP 150/80; PULSE 53; BMI 27.2
--- NOTE | 2023-12-25 15:12 | A.OFFVIS_ITS ---
Intake Vital Signs 12/25/23 15:12 Height 5 ft 3 in Weight 153 lb 7.068 oz BMI 27.2 BP 150/80 H Blood Pressure Location Rt brachial Position Sitting Pulse 53 Pulse Source Monitor Intake Visit Reasons: 3 mth f/up Pulper Tender Required: No Allergies codeine [Codeine] Adverse Reaction (Mild, Verified 12/25/23 15:16) vomiting Medication List - Last Reconciled 12/25/23 by Ijeoma Becerra, ALUMINUM CONTAINER TESTER-C albuterol sulfate 90 mcg/actuation 2 puffs inhalation Q4-6H PRN 30 days amiodarone 200 mg PO DAILY 30 days apixaban (Eliquis) 5 mg PO BID atorvastatin 80 mg PO BEDTIME cholecalciferol (vitamin D3) (Vitamin D3) 25 mcg PO DAILY clopidogrel 75 mg PO DAILY cyanocobalamin (vitamin B-12) (Vitamin B-12) 1,000 mcg PO DAILY ferrous sulfate 325 mg PO BEDTIME fluticasone propion-salmeterol 113-14 mcg/actuation 1 inh inhalation Q12H 30 days furosemide 40 mg See Protocol PO DAILY levothyroxine (Synthroid) 50 mcg PO DAILY melatonin 10 mg PO BEDTIME metoprolol succinate ER 25 mg PO DAILY omeprazole 20 mg PO QAM paroxetine HCl 40 mg PO BEDTIME HPI 3 mth f/up HPI Details Nai is a 68-year-old female past medical history of hypertension, hyperlipidemia, COPD, PAD, CAD with left circumflex and RCA stents, NSTEMI in setting of hypertensive crisis, heart failure with preserved EF, paroxysmal atrial fibrillation who presents for follow-up. Today she reports that she was hospitalized during [place] time for symptoms of UTI which ended up being urosepsis with metabolic encephalopathy. She has since fully recovered. She is not aware of any cardiac complications during that admission. She denies having any chest discomfort at rest or with activ ity. No heart palpitations, lightheadedness, presyncope, syncope, falls. She has mild chronic shortness of breath with exertion which she says is close to her baseline. She denies PND, orthopnea or edema. She has been experiencing some left hip discomfort and tells me she has arthritis and will be getting shots. She is taking her medications as directed. [facility] Medical History History of smoking 30 or more pack years COPD (chronic obstructive pulmonary disease) Atherosclerotic cardiovascular disease PAF (paroxysmal atrial fibrillation) Atrial fibrillation with rapid ventricular response Left renal artery stenosis Personal history of nicotine dependence Cardiomyopathy Essential hypertension Asymmetric blood pressures Acute on chronic systolic (congestive) heart failure CHF (congestive heart failure) CAD (coronary artery disease) Multiple sclerosis Pulmonary nodules Peripheral arterial occlusive disease Surgical History History of endoscopy History of colonoscopy History of heart artery stent (~2018) Status post angioplasty with stent (~09/2018) S/P insertion of iliac artery stent (~02/2019) S/P cardiac cath (~12/2020) History of cholecystectomy (~02/2009) Family History Father No problems noted. Mother No problems noted. Brother Diabetes Social History Household Members: None Housing: House Are you a primary health care liaison to a significant other at home: No Alcohol intake: never Comment: aware of trip hazard Patient Tobacco Use Status: Former Tobacco user Quit Date: 2017 Tobacco use type: Cigarette e-Cigarette/Vaping Use: Never Used Second Hand Smoke Exposure: No Advance Directives Date on File: 12/27/20 service: No Current occupational status: retired Cognitive needs: Yes (cane) Hearing needs: No Vision needs: Yes (reading glasses) Review of Systems Const All systems reviewed & are unremarkable except as noted in HPI and below ENT Denies dizziness Card Denies chest pain, Denies chest pain at rest, Denies chest pain with activity, Denies rapid heart rate, Denies pedal edema, Denies edema, Denies leg edema, Denies lightheadedness, Denies palpitations, Denies dyspnea, Reports dyspnea on exertion and Denies orthopnea Resp Denies cough, Denies dyspnea and Reports dyspnea on exertion GI Denies hematochezia and Denies change in stool character Musc Details: left hip discomfort Denies abnormal gait, Denies limited range of motion, Denies muscle cramps, Denies muscle weakness, Denies numbness, Denies radiating pain into limb, Denies stiffness and Denies tingling Neuro Denies abnormal gait, Denies dizziness, Denies numbness and Denies tingling Endo Denies palpitations Physical Exam Vital Signs: BMI result Body Mass Index 27.2 Const Other: Sitting in wheelchair General: cooperative, comfortable and no acute distress Orientation/consciousness: patient oriented x3 Neck Neck: Yes normal visual inspection and Yes no JVD Resp Effort & Inspection: normal respiratory effort Auscultation: clear to auscultation bilaterally, no crackles, no rales, no rhonchi and no wheezes Cardio Jugular venous distension: no JVD Rate: regular rate Rhythm: abnormal rhythm Heart sounds: S2 normal heart sound present and Murmur heart sound present (systolic 2/6 right sternal border) Neuro General: patient oriented x3 Extrem Other: Plus one ankle edema Psych Appearance: grossly normal Mental Status: mental status grossly normal Speech and movement: Normal speech and movement present Office Procedures EKG Details: Today, read by me, sinus bradycardia, can not exclude anterior infarct, ST and T-wave abnormality likely repolarization abnormality with LVH, rate 53, QTC 480 milliseconds [id number], Complete Assessment & Plan Assessment & Plan (1) Atrial fibrillation: Code(s): I48.91 - Unspecified atrial fibrillation Plan: History of atrial fibrillation. Noted to have AFib RVR at 05/2023 hospital admission which was treated with rate control. She was then started on amiodarone to help with rhythm control. An echocardiogram done 05/28/2023 showed EF 20-25%, left atrium severely dilated, basal inferior and inferior septum akinetic. The EF has reduced from prior echocardiogram 11/01/2022 when EF was 59%. A nuclear stress test had been done 02/07/2023 showing normal myocardial perfusion imaging. She continued to have atrial fibrillation and was experiencing much shortness of breath with activity. No heart palpitations. She underwent cardioversion with Dr. Lizama on 08/01/2023 with successful conversion to sinus rhythm. She was continued on amiodarone for rhythm control, metoprolol for rate control and Eliquis for anticoagulation. A Holter monitor was done on 09/22/23 for 3 days shows sinus rhythm with average heart rate 65, frequent isolated PVCs, 2.6% of time, occasional PACs, short runs, longest 9 beats. Echocardiogram done on 09/22/2023 showed EF up to 45-50%, grade 2 diastolic dysfunction. Her reduction in EF was likely related to the atrial fibrillation, elevated heart rates. Today she reports that her breathing is at baseline. She has some mild shortness of breath with physical activity. EKG done today showing sinus bradycardia, rate 53. Continue current med management at present. Will check labs for amiodarone monitoring including CMP and TSH. Cardiology follow-up in 4 months, sooner if needed. (2) Cardiomyopathy: Comment: She has cardio myopathy, secondary to coronary artery disease. Has low ejection fraction. Also has had atrial fibrillation which is now controlled after cardioversion. Actively followed. Up by Cardiology Code(s): I42.9 - Cardiomyopathy, unspecified Qualifiers: Cardiomyopathy type: other Qualified Code(s): I42.8 - Other cardiomyopathies Plan: As above. EF reduced to 20-25%. Repeat echo after cardioversion now showing EF 45-50%. Today She does not appear fluid overloaded on examination. She is on Lasix 40 mg as needed. Continue metoprolol XL for neurohormonal modulation. She did have SUSAN in September with creatinine as high as 3.19. Last known creatinine 1.21 on 10/19/2023. Updating labs as above. Will hold off on the addition of Andrew/Arb at present time BP currently 114/72 (3) CHF (congestive heart failure): Comment: She was treated for congestive heart failure/bilateral pleural effusions, in June of this year. She stays on diuretic therapy is doing fairly well at this time. Code(s): I50.9 - Heart failure, unspecified Plan: In the setting of AFib RVR. Diuresed with improvement in condition. No signs of heart failure today. Signs and symptoms of heart failure reviewed with her. (4) Essential hypertension: Code(s): I10 - Essential (primary) hypertension Plan: Blood pressure elevated today. She tells me normally her blood pressure has been well controlled. She believes it is related to the long walk from the parking lot up to this office. She tells me she has a PCP visit in 3 weeks and her blood pressure will be checked at that time. If blood pressure is elevated then amlodipine could be added. (5) S/P cardiac cath: Onset Date: ~12/2020 Comment: (12/27/20 - Dr. Garcia, [facility]: Lm normal, mid LAD, proximal 60%, 2nd diag prox 75%, LCx prox stent patent, Lcx mid 65%, 1st OM 40%, RCA prox stent patent, mid RCA prox 70% - inferior/ inferolateral WMA on echo not explained by anatomy) Code(s): Z98.890 - Other specified postprocedural states Plan: As above (6) S/P cardiac catheterization: Comment: Last cardiac catheterization 04/02/2023 showing mid LAD 30% stenosis, proximal circumflex stent patent, mid circumflex 80% stenosis and stent placed, RCA proximal stent patent, mid RCA 50% stenosis Code(s): Z98.890 - Other specified postprocedural states Plan: Per Dr. Lizama last know she should continue on Plavix due to the extent of her vascular disease (7) CAD (coronary artery disease): Comment: (Hx 2 MIs 2018 & 2020 - Hx LCx & RCA stents 2019 - patent on recent 12/2020 cath) Code(s): I25.10 - Atherosclerotic heart disease of elem coronary artery without angina pectoris Plan: No reports of anginal sounding symptoms. Continue Plavix, atorvastatin, metoprolol XL. Will update her lipid profile. Pimento LDL goal is less than 70. (8) Murmur: Code(s): R01.1 - Cardiac murmur, unspecified Plan: Heart murmur noted on examination. This is not new finding. Echocardiogram results reviewed and no clear findings for cause of heart murmur noted. (9) Hospital discharge follow-up: Code(s): Z09 - Encounter for follow-up examination after completed treatment for conditions other than malignant neoplasm Plan: Recent hospital discharge summary reviewed. Admission for noncardiac reasons Plan Time spent with chart review, documentation, interview, assess Complex case Orders: Orders TSH reflex Free T4 Today I48.19 - Other persistent atrial fibrillation Comprehensive Met. Panel Today I25.10 - Atherosclerotic heart disease of elem coronary artery without angina pectoris, I48.19 - Other persistent atrial fibrillation Lipid Panel Today I25.10 - Atherosclerotic heart disease of elem coronary artery without angina pectoris Coding Level of Care Code Est Pt Level 5 (59457) Diagnoses Atrial fibrillation I48.91 Other cardiomyopathy I42.8 Cardiomyopathy type: other CHF (congestive heart failure) I50.9 Essential hypertension I10 S/P cardiac cath Z98.890 CAD (coronary artery disease) I25.10 Murmur R01.1 Hospital discharge follow-up Z09 CPT Codes EKG - CPT: [id number], Complete ([id number]) Time Spent (min) 35
== END 2023-12-25 15:49 | disposition home or self-care (01) ==
PROVIDERS: PCP Internal Medicine; Visit Provider Nurse Practitioner Family
DX: I48.91 Unspecified atrial fibrillation (principal); I42.8 Other cardiomyopathies; I50.9 Heart failure, unspecified; Z98.890 Other specified postprocedural states; R00.1 Bradycardia, unspecified; I10 Essential (primary) hypertension; I25.10 Atherosclerotic heart disease of native coronary artery without angina pectoris; R01.1 Cardiac murmur, unspecified; Z09 Encounter for follow-up examination after completed treatment for conditions other than malignant neoplasm
CPT/HCPCS: 93010; 99214

== ENCOUNTER → 2023-12-25 15:08 | Outpatient (BNVA) | payer MEDICARE, BC, SELFPAY | PROVIDERS: PCP Internal Medicine; Visit Provider Nurse Practitioner Family | DX: Z09 Encounter for follow-up examination after completed treatment for conditions other than malignant neoplasm (principal); I48.91 Unspecified atrial fibrillation; I42.8 Other cardiomyopathies; I11.0 Hypertensive heart disease with heart failure; I50.9 Heart failure, unspecified; I25.10 Atherosclerotic heart disease of native coronary artery without angina pectoris; R01.1 Cardiac murmur, unspecified; Z98.890 Other specified postprocedural states | CPT/HCPCS: 93005; 99212 ==

== ENCOUNTER 2023-12-31 14:24 | Outpatient (REF) | payer MEDICARE, BC, SELFPAY ==
[2023-12-31 15:14] LABS: MANUAL DIFF FLAG NO
[2023-12-31 15:37] LABS: Basophils Absolute Auto 0.1 X10*3/uL (0.0-0.2); Basophils Percent Auto 0.8 % (0-2); Eosinophils Absolute Auto 0.1 X10*3/uL (0.0-0.4); Eosinophils Percent Auto 1.8 % (0-4); Hematocrit 36.4 % (37.0-47.0); Hemoglobin 11.1 g/dl (12.0-16.0); Imm Gran Abs Auto 0.03 X10*3/uL (0.00-0.03); Imm Gran Pct Auto 0.5 % (0.0-0.4); Lymphocytes Absolute Auto 0.9 X10*3/uL (1.2-4.9); Lymphocytes Percent Auto 13.8 % (20-40); Mean Corpuscular HGB Conc 30.5 g/dl (31.0-35.0); Mean Corpuscular Volume 85.2 fL (80.0-98.0); Mean Platelet Volume 9.9 fL (9.4-12.3); Monocytes Absolute Auto 0.5 X10*3/uL (0.1-1.2); Monocytes Percent Auto 7.5 % (2-11); Neutrophils Absolute Auto 4.9 x10*3/uL (2.0-8.3); Neutrophils Percent Auto 75.6 % (45-73); Platelet Count 268 X10*3/uL (160-400); Red Blood Count 4.27 X10*6/uL (4.20-5.50); Red Cell Distribution Width 16.9 % (11.0-16.0); White Blood Count 6.5 X10*3/uL (4.8-10.8)
[2023-12-31 16:12] LABS: Alanine Aminotransferase 8 U/L (0-31); Albumin Level 3.6 g/dL (3.5-5.0); Alkaline Phosphatase 102 U/L (39-117); Anion Gap 12 (12-20); Aspartate Amino Transferase 11 U/L (5-31); Bilirubin Total 0.7 mg/dL (0.0-1.0); Blood Urea Nitrogen 25 mg/dL (9-16); Calcium 9.5 mg/dL (8.4-10.2); Carbon Dioxide 23 mmol/L (22-29); Chloride 112 mmol/L (96-108); Cholesterol 142 mg/dL (<200); Estimated Glomerular Filt Rate 38; Glucose Random 83 mg/dL (60-115); HDL Cholesterol 66 mg/dL (>40); LDL Cholesterol Calculated 67 mg/dL (<100); Potassium 4.3 mmol/L (3.3-5.1); Sodium 143 mmol/L (135-145); Total Protein 6.8 g/dL (6.5-8.0); Triglycerides 49 mg/dL (<150)
[2023-12-31 16:29] LABS: Ferritin 76 ng/mL (10-250); Thyroid Stimulating Hormone 6.39 uIU/mL (0.32-4.0)
[2023-12-31 16:30] LABS: Vitamin B12 1151 pg/mL (200-900)
== END 2023-12-31 14:25 | disposition home or self-care (01) ==
LOC: HO.LAB 14:24
PROVIDERS: Absent Provider Nurse Practitioner Family; PCP Internal Medicine; Referring Provider Internal Medicine; Visit Provider Internal Medicine
DX: D64.89 Other specified anemias (principal); E03.8 Other specified hypothyroidism; I43 Cardiomyopathy in diseases classified elsewhere; N18.9 Chronic kidney disease, unspecified; J44.9 Chronic obstructive pulmonary disease, unspecified; R91.8 Other nonspecific abnormal finding of lung field; G35 Multiple sclerosis; Z87.891 Personal history of nicotine dependence; Z79.899 Other long term (current) drug therapy
CPT/HCPCS: 36415; 80053; 80061; 82607; 82728; 84443; 85025; 99212

== ENCOUNTER 2023-12-31 14:24 | Outpatient (AMB) | payer MEDICARE, BC, SELFPAY ==
--- NOTE | 2023-12-31 14:33 | MHC.OFFVIS ---
Intake Vital Signs 12/31/23 14:35 Height 5 ft 3 in BP 138/82 Blood Pressure Location Lt brachial Position Sitting Respiration 16 Pulse 60 Pulse Source Pulse Oximeter Pulse Oximetry (%) 96 Oxygen Delivery Method Room Air Intake Visit Reasons: COPD Allergies codeine [Codeine] Adverse Reaction (Mild, Verified 12/31/23 14:53) vomiting Medication List - Last Reconciled 12/31/23 by Alonso Mehta MD albuterol sulfate 90 mcg/actuation 2 puffs inhalation Q4-6H PRN 30 days amiodarone 200 mg PO DAILY 30 days apixaban (Eliquis) 5 mg PO BID atorvastatin 80 mg PO BEDTIME cholecalciferol (vitamin D3) (Vitamin D3) 25 mcg PO DAILY clopidogrel 75 mg PO DAILY cyanocobalamin (vitamin B-12) (Vitamin B-12) 1,000 mcg PO DAILY ferrous sulfate 325 mg PO BEDTIME fluticasone propion-salmeterol 113-14 mcg/actuation 1 inh inhalation Q12H 30 days furosemide 40 mg See Protocol PO DAILY levothyroxine (Synthroid) 50 mcg PO DAILY melatonin 10 mg PO BEDTIME metoprolol succinate ER 25 mg PO DAILY omeprazole 20 mg PO QAM paroxetine HCl 40 mg PO BEDTIME Do you need a note to return to daycare/school/sports/work: No HPI COPD HPI Details JULIANA IS 68 YEARS OLD FEMALE A CASE OF ADVANCING MULTIPLE SCLEROSIS DUE TO WHICH SHE SHE HAS SPASTIC GAIT AND IS QUITE DISABLED. SHE HAS PAST HISTORY OF SMOKING, CARDIOVASCULAR DISEASE, PERIPHERAL VASCULAR DISEASE.. LAST YEAR HER CT SCAN OF THE CHEST HAD SHOWN A DENSITY IN THE RIGHT MIDDLE LOBE WHICH NEEDED TO BE FOLLOWED UP. SHE HAS BEEN USING AIRDUO 113-14 1 INHALATION B.I.D. AND HARDLY NEEDS TO USE THE RESCUE INHALER. SHE CLAIMS THAT HER BREATHING STATUS IS VERY STABLE. SHE HAS HAD NO RECENT. RESPIRATORY INFECTION SHE SLEEPS WELL. EMOTIONAL STATUS IS STABLE AND CONTROLLED WITH PAROXETINE 40 MG DAILY [facility] Medical History History of smoking 30 or more pack years COPD (chronic obstructive pulmonary disease) Atherosclerotic cardiovascular disease PAF (paroxysmal atrial fibrillation) Atrial fibrillation with rapid ventricular response Left renal artery stenosis Personal history of nicotine dependence Cardiomyopathy Essential hypertension Asymmetric blood pressures Acute on chronic systolic (congestive) heart failure CHF (congestive heart failure) CAD (coronary artery disease) Multiple sclerosis Pulmonary nodules Peripheral arterial occlusive disease Surgical History History of endoscopy History of colonoscopy History of heart artery stent (~2018) Status post angioplasty with stent (~09/2018) S/P insertion of iliac artery stent (~02/2019) S/P cardiac cath (~12/2020) History of cholecystectomy (~02/2009) Family History Father No problems noted. Mother No problems noted. Brother Diabetes Social History Household Members: None Housing: House Are you a primary healthcare facility administrator to a significant other at home: No Alcohol intake: never Comment: aware of trip hazard Patient Tobacco Use Status: Former Tobacco user Quit Date: 2017 Tobacco use type: Cigarette e-Cigarette/Vaping Use: Never Used Second Hand Smoke Exposure: No Advance Directives Date on File: 12/27/20 service: No Current occupational status: retired Cognitive needs: Yes (cane) Hearing needs: No Vision needs: Yes (reading glasses) Review of Systems Const All systems reviewed & are unremarkable except as noted in HPI and below Card Reports dyspnea on exertion Resp Reports cough (mild ) and Reports dyspnea on exertion Musc Reports abnormal gait (mild instability ), Reports myalgias and Reports muscle weakness Neuro Reports abnormal gait (mild instability ) Psych Reports depression (controlled) Physical Exam Vital Signs: Last Vital Signs Pulse 60 12/31/23 14:35 Resp 16 12/31/23 14:35 BP 138/82 12/31/23 14:35 Pulse Ox 96 12/31/23 14:35 Oxygen Delivery Method Room Air 12/31/23 14:35 Const Other: Chronically sick-looking, walks slowly with cane. General: comfortable, no acute distress, alert and awake Orientation/consciousness: patient oriented x3 HEENT Head: Yes normal to inspection General nose exam: No nasal polyps present and No nasal discharge present Face and sinus: Yes sinuses nontender Mouth: oropharynx normal Throat: Yes posterior oropharynx normal Eyes General: appearance normal, both eyes and all related structures Neck Neck: Yes normal visual inspection, Yes no lymphadenopathy, Yes trachea midline and Yes no JVD Thyroid: Thyroid normal Chest Chest palpation & inspection: normal inspection of the chest, normal palpation of entire chest wall and no tenderness Resp Effort & Inspection: prolonged expiratory phase Auscultation: clear to auscultation bilaterally, no crackles, no wheezes and diminished lung sounds (somewhat distant especially over the basilar areas .) Cardio Palpation: normal PMI Rate: regular rate Rhythm: regular rhythm Heart sounds: S2 normal heart sound present (split ), no gallops and Murmur heart sound present (faint systolic murmur at LSB.) GI Palpation (GI): Soft to palpation, nontender, No hepatosplenomegaly present and no masses Auscultation: normal bowel sounds Back/Spine/Pelvis Thoracic/Lumbar Spine: thoracic and lumbar spine normal to inspection Skin General skin exam: no rashes or lesions noted Neuro General: patient oriented x3, No gait normal (gait is spastic , and slow ) and no focal motor deficits Cranial nerves: Yes CN's II-XII intact bilaterally Extrem General: Yes normal to inspection, Yes no clubbing, cyanosis or edema, Yes no calf tenderness and No venous stasis dermatitis Psych Appearance: grossly normal Mental Status: mental status grossly normal Speech and movement: Normal speech and movement present Results Reviewed Results Reviewed: CT scan Of Chest on Impression : Right middle lobe masslike density appears smaller. No additional lung nodules or mass seen. There is new bilateral small pleural effusions. Fleischner guidelines were followed. Assessment & Plan Assessment & Plan (1) COPD (chronic obstructive pulmonary disease): Comment: , PFT has shown Moderate obstructive disorder, good response to bronchodilators) c/w ASTHMA/COPD OVERLAP SYNDROME . * Currently she is doing well and is stable . Code(s): J44.9 - Chronic obstructive pulmonary disease, unspecified Plan: [place] : Continue AirDuo 113-14. One inhalation b.i.d.. Albuterol HFA 2 puffs Q 6 hours p.r.n. (2) History of smoking 30 or more pack years: Comment: This patient does have history of smoking for almost 40 years, She is a high risk case for lung neoplasm. Luckily has quit for the last few years Code(s): Z87.891 - Personal history of nicotine dependence Plan: Will continue having annual lung scan (3) Pulmonary nodules: Comment: (1/11/21 CT showed 2 new ill-defined nodules in ligula, 6 & 7mm) Patient was in the Annual lung screening program. Because of her severe comorbidities she, .has not had a regular follow-up Last CT scan of the chest in December 2022, showed a nonspecific density in the right middle lobe, Her current CT scan, shows that the density is smaller than before, so most likely it is benign .May be due to an inflammatory condition, or rounded atelectasis. Code(s): R91.8 - Other nonspecific abnormal finding of lung field Plan: She should continue to have annual lung scan for close follow-up Coding Level of Care Code Est Pt Level 3 (58791) Diagnoses COPD (chronic obstructive pulmonary disease) J44.9 History of smoking 30 or more pack years Z87.891 Pulmonary nodules R91.8
[2023-12-31 14:35] VITALS: BP 138/82; PULSE 60; RESP 16; O2SAT 96
== END 2023-12-31 14:52 | disposition home or self-care (01) ==
PROVIDERS: PCP Internal Medicine; Visit Provider Internal Medicine
DX: J44.9 Chronic obstructive pulmonary disease, unspecified (principal); Z87.891 Personal history of nicotine dependence; R91.8 Other nonspecific abnormal finding of lung field
CPT/HCPCS: 99213

== ENCOUNTER 2024-01-22 08:50 | Outpatient (REF) | payer MEDICARE, BC, SELFPAY ==
--- NOTE | ~2024-01-22 | XR_ITS ---
EXAMINATION: XR PELVIS CLINICAL INFORMATION: Hip pain COMPARISON: Left hip x-rays on 12/19/2023 TECHNIQUE: AP view of the pelvis. FINDINGS: BONES: Bony structures are intact. There is marked left acetabular osteophytosis, over coverage of left femoral head. Mild asymmetric left acetabular protrusio is present. There is no focal bone destruction or periosteal reaction seen. JOINTS: Alignment of hip joint is normal. There is marked asymmetric loss of left hip joint space. SOFT TISSUE: Soft tissue calcifications are seen in bilateral gluteal regions. Metallic vascular stents are seen in left common iliac region and right superficial femoral region. No radiopaque foreign body or abnormal air collection is seen. XR/XR pelvis 1-2V IMPRESSION: 1. Unchanged marked osteoarthritis of left hip. Interval increase in left acetabular protrusio. 2. No fracture or dislocation or signs of avascular necrosis are seen.
== END 2024-01-22 08:51 | disposition home or self-care (01) ==
LOC: HO.HOSX 08:50
PROVIDERS: Visit Provider Orthopaedic Surgery
DX: M16.12 Unilateral primary osteoarthritis, left hip (principal)
CPT/HCPCS: 72170; 99212

== ENCOUNTER 2024-01-22 09:52 | Outpatient (AMB) | payer MEDICARE, BC, SELFPAY ==
--- NOTE | 2024-01-22 09:54 | A.OFFVIS_ITS ---
Intake Vital Signs 01/22/24 09:56 Height 5 ft 3 in Weight 157 lb BMI 27.8 Intake Visit Reasons: New Problem - Severe left hip OA Intake Note: Francis is a 68 year old female who presents today as a new patient with complaints of left hip pain. Patient reports that she has had ongoing pain for quite some time now. She originally throught that she was having pain due to a pulled muscle, she did PT for this which did not help. Her pain is felt in the lateral aspect of the hip and it radiates brooke the side of the leg. She has increased pain with walking, stairs and prolonged standing. She Takes tylenol which offers her mild releif. Accompanied by: Sister Allergies codeine [Codeine] Adverse Reaction (Mild, Verified 01/22/24 10:11) vomiting HPI New Problem - Severe left hip OA HPI Details Francis is a 68 year old female who presents today with complaints of left hip pain. Patient reports that she has had ongoing pain for at least a year.. She originally thought that she was having pain due to a pulled muscle, she did PT for this which did not help. Her pain is in the right hip. She limps when she walks. She has difficulty getting into and out of cars. She feels her QOL is diminished. She had a cardiac catheterization several years ago. She has increased pain with walking, stairs and prolonged standing. She Takes tylenol which offers her mild relief. [facility] Medical History History of smoking 30 or more pack years COPD (chronic obstructive pulmonary disease) Atherosclerotic cardiovascular disease PAF (paroxysmal atrial fibrillation) Atrial fibrillation with rapid ventricular response Left renal artery stenosis Personal history of nicotine dependence Cardiomyopathy Essential hypertension Asymmetric blood pressures Acute on chronic systolic (congestive) heart failure CHF (congestive heart failure) CAD (coronary artery disease) Multiple sclerosis Pulmonary nodules Peripheral arterial occlusive disease Surgical History History of endoscopy History of colonoscopy History of heart artery stent (~2018) Status post angioplasty with stent (~09/2018) S/P insertion of iliac artery stent (~02/2019) S/P cardiac cath (~12/2020) History of cholecystectomy (~02/2009) Family History Father No problems noted. Mother No problems noted. Brother Diabetes Social History Household Members: None Housing: House Are you a primary youth career specialist to a significant other at home: No Alcohol intake: never Comment: aware of trip hazard Patient Tobacco Use Status: Former Tobacco user Quit Date: 2017 Tobacco use type: Cigarette e-Cigarette/Vaping Use: Never Used Second Hand Smoke Exposure: No Advance Directives Date on File: 12/27/20 service: No Current occupational status: retired Cognitive needs: Yes (cane) Hearing needs: No Vision needs: Yes (reading glasses) Physical Exam Vital Signs: BMI result Body Mass Index 27.8 Const General: cooperative, healthy appearing, no acute distress, well developed and alert HEENT Head: Yes normal to inspection, Yes normocephalic and Yes atraumatic Mouth: moist mucous membranes Eyes General: appearance normal, both eyes and all related structures EOM: EOMs intact bilaterally Chest Other: no audible wheezing. Resp Other: No audible wheezing Effort & Inspection: normal respiratory effort Back/Spine/Pelvis Cervical Spine: normal cervical lordosis Skin General skin exam: no rashes or lesions noted Neuro General: no focal motor deficits Extrem Other: + gait antalgia + impingement +Stinchfield Minimal IR when flexed compared to right Psych Appearance: grossly normal and well kempt Mental Status: mental status grossly normal Speech and movement: Normal speech and movement present Affect: normal affect Attitude: cooperative Results Reviewed Results Reviewed: I personally reviewed relevant radiographs. Severe left hip OA Assessment & Plan Assessment & Plan (1) Osteoarthritis of left hip: Code(s): M16.12 - Unilateral primary osteoarthritis, left hip Plan: This is a 68 yo F with left hip OA that is severe. She is limited and her quality of life is diminished. She is unable to be active or engage in exercise and activity modification, PT and non narcotic pain medication has not been helpful. She cannot tolerate NSAIDs. She has a h/o cardiac catheterization and COPD. I do recommend KATHERINE but she will require medical and cardiac clearance. She is on blood thinners as well. We will begin the pre operative clearance process. I discussed the risks benefits and alternatives including but not limited to the risk of pain, infection, stiffness, need for further surgery as well as potential medical complications such as blood clots, pulmonary embolism and cardiac complications. Plan Meeting with Nurse Navigator Kelley today to discuss Left KATHERINE Orders: Orders XR pelvis 1-2V 01/22/24 M25.559 - Pain in unspecified hip Coding Level of Care Code New Pt Level 4 (25609) Diagnoses Osteoarthritis of left hip M16.12
[2024-01-22 09:56] VITALS: BMI 27.8
== END 2024-01-22 10:45 | disposition home or self-care (01) ==
PROVIDERS: PCP Internal Medicine; Visit Provider Orthopaedic Surgery
DX: M16.12 Unilateral primary osteoarthritis, left hip (principal)
CPT/HCPCS: 99214

== ENCOUNTER 2024-02-02 10:09 | Outpatient (REF) | payer MEDICARE, BC, SELFPAY ==
[2024-02-02 12:51] LABS: B Type Natriuretic Peptide 3242 pg/mL (<100)
[2024-02-02 12:53] LABS: Anion Gap 11 (12-20); Blood Urea Nitrogen 20 mg/dL (9-16); Calcium 8.9 mg/dL (8.4-10.2); Carbon Dioxide 23 mmol/L (22-29); Chloride 113 mmol/L (96-108); Estimated Glomerular Filt Rate 49; Glucose Random 87 mg/dL (60-115); Potassium 3.5 mmol/L (3.3-5.1); Sodium 143 mmol/L (135-145)
[2024-02-02 13:10] LABS: TSH reflex Free T4 7.34 uIU/mL (0.32-4.0)
[2024-02-02 14:29] LABS: Free T4 (Free Thyroxine) 1.14 ng/dL (0.71-1.85)
== END 2024-02-02 10:10 | disposition home or self-care (01) ==
LOC: HO.LAB 10:09
PROVIDERS: PCP Internal Medicine; Visit Provider Nurse Practitioner Family
DX: I48.19 Other persistent atrial fibrillation (principal); R06.02 Shortness of breath
CPT/HCPCS: 36415; 80048; 83880; 84439; 84443; 93005; 99212

== ENCOUNTER 2024-02-02 10:09 | Outpatient (AMB) | payer MEDICARE, BC, SELFPAY ==
--- NOTE | 2024-02-02 10:20 | A.OFFVIS_ITS ---
Intake Vital Signs 02/02/24 10:21 Height 5 ft 3 in BP 140/70 H Blood Pressure Location Rt brachial Position Sitting Pulse 54 Pulse Source Monitor Intake Visit Reasons: S/b since Allergies codeine [Codeine] Adverse Reaction (Mild, Verified 02/02/24 10:23) vomiting Medication List - Last Reconciled 02/02/24 by Ijeoma Becerra, SCIENTIFIC INFORMATICS ANALYST-C albuterol sulfate 90 mcg/actuation 2 puffs inhalation Q4-6H PRN 30 days amiodarone 200 mg PO DAILY 30 days apixaban (Eliquis) 5 mg PO BID atorvastatin 80 mg PO BEDTIME cholecalciferol (vitamin D3) (Vitamin D3) 25 mcg PO DAILY clopidogrel 75 mg PO DAILY cyanocobalamin (vitamin B-12) (Vitamin B-12) 1,000 mcg PO DAILY ferrous sulfate 325 mg PO BEDTIME fluticasone propion-salmeterol 113-14 mcg/actuation 1 inh inhalation Q12H 30 days furosemide 40 mg See Protocol PO DAILY levothyroxine (Synthroid) 50 mcg PO DAILY melatonin 10 mg PO BEDTIME metoprolol succinate ER 25 mg PO DAILY omeprazole 20 mg PO QAM paroxetine HCl 40 mg PO BEDTIME HPI S/b since HPI Details Nai is a 68-year-old female past medical history of hypertension, hyperlipidemia, COPD, PAD, CAD with left circumflex and RCA stents, NSTEMI in setting of hypertensive crisis, heart failure with preserved EF, paroxysmal atrial fibrillation who presents for follow-up. Today she reports that she has had increasing shortness of breath in the last 2 weeks. She describes orthopnea, no PND. She has shortness of breath with activity and is only able to walk short distances. No chest discomfort, palpitations, lightheadedness, presyncope, syncope, falls. She has a cardio mobile device and at times it does read possible atrial fibrillation. Taking all meds as directed with the exception of Lasix. She does not like the frequent urination that it causes. Lower legs are swollen. Sister is present. [facility] Medical History History of smoking 30 or more pack years COPD (chronic obstructive pulmonary disease) Atherosclerotic cardiovascular disease PAF (paroxysmal atrial fibrillation) Atrial fibrillation with rapid ventricular response Left renal artery stenosis Personal history of nicotine dependence Cardiomyopathy Essential hypertension Asymmetric blood pressures Acute on chronic systolic (congestive) heart failure CHF (congestive heart failure) CAD (coronary artery disease) Multiple sclerosis Pulmonary nodules Peripheral arterial occlusive disease Surgical History History of endoscopy History of colonoscopy History of heart artery stent (~2018) Status post angioplasty with stent (~09/2018) S/P insertion of iliac artery stent (~02/2019) S/P cardiac cath (~12/2020) History of cholecystectomy (~02/2009) Family History Father No problems noted. Mother No problems noted. Brother Diabetes Social History Household Members: None Housing: House Are you a primary child care sitter to a significant other at home: No Alcohol intake: never Comment: aware of trip hazard Patient Tobacco Use Status: Former Tobacco user Quit Date: 2017 Tobacco use type: Cigarette e-Cigarette/Vaping Use: Never Used Second Hand Smoke Exposure: No Advance Directives Date on File: 12/27/20 service: No Current occupational status: retired Cognitive needs: Yes (cane) Hearing needs: No Vision needs: Yes (reading glasses) Review of Systems Const All systems reviewed & are unremarkable except as noted in HPI and below ENT Denies dizziness Card Denies chest pain, Denies chest pain at rest, Denies chest pain with activity, Denies rapid heart rate, Denies pedal edema, Denies edema, Denies leg edema, Denies lightheadedness, Denies palpitations, Reports dyspnea, Reports dyspnea on exertion and Reports orthopnea Resp Denies cough, Reports dyspnea and Reports dyspnea on exertion GI Denies hematochezia and Denies change in stool character Musc Reports abnormal gait, Denies limited range of motion, Denies muscle cramps, Denies muscle weakness, Denies numbness, Denies radiating pain into limb, Denies stiffness and Denies tingling Neuro Reports abnormal gait, Denies dizziness, Denies numbness and Denies tingling Endo Denies palpitations Physical Exam Vital Signs: Last Vital Signs Pulse 54 02/02/24 10:21 BP 140/70 H 02/02/24 10:21 Const Other: Sitting in wheelchair General: cooperative, comfortable and no acute distress Orientation/consciousness: patient oriented x3 Neck Neck: Yes normal visual inspection and Yes no JVD Resp Effort & Inspection: normal respiratory effort Auscultation: clear to auscultation bilaterally, rales (faint left base), no rhonchi and no wheezes Cardio Jugular venous distension: no JVD Rate: regular rate Rhythm: abnormal rhythm Heart sounds: S2 normal heart sound present and Murmur heart sound present (systolic 2/6 right sternal border) Neuro General: patient oriented x3 Extrem Other: Plus 2 ankle edema Psych Appearance: grossly normal Mental Status: mental status grossly normal Speech and movement: Normal speech and movement present Office Procedures EKG Details: Today, read by me, Sinus bradycardia, with PACs, cant exclude anterior infarct, LVH with repolarization abnormality, rate 54, QTc 470ms [id number], Complete Assessment & Plan Assessment & Plan (1) CHF (congestive heart failure): Comment: She was treated for congestive heart failure/bilateral pleural effusions, in June of this year. She stays on diuretic therapy is doing fairly well at this time. Code(s): I50.9 - Heart failure, unspecified Plan: History of heart failure with preserved EF. Prior decompensated heart failure in the setting of AFib RVR. Today she reports shortness of breath for the last 2 weeks with orthopnea and leg edema. Follows a low-salt diet. Drinking 64 oz of fluid daily. Last echo does show mildly reduced EF and grade [address] scan of the chest done 12/19/2023 for noncardiac reason does show new bilateral small pleural effusions. At the end of the visit she does tell me she has not been taking her Lasix as she is supposed to. Most likely she has mild decompensated heart failure. Will check labs today including BNP/BMP. Informed her that she needs to restart the Lasix and will likely increase her dose temporarily based on labs once available. Reviewed all the above with her and she states understanding. Cardiology follow-up in 1 month, sooner if needed (2) Atrial fibrillation: Code(s): I48.91 - Unspecified atrial fibrillation Plan: History of atrial fibrillation. Noted to have AFib RVR at 05/2023 hospital admission which was treated with rate control. She was then started on amiodarone to help with rhythm control. An echocardiogram done 05/28/2023 showed EF 20-25%, left atrium severely dilated, basal inferior and inferior septum akinetic. The EF has reduced from prior echocardiogram 11/01/2022 when EF was 59%. A nuclear stress test had been done 02/07/2023 showing normal myocardial perfusion imaging. She continued to have atrial fibrillation and was experiencing much shortness of breath with activity. No heart palpitations. She underwent cardioversion with Dr. Lizama on 08/01/2023 with successful conversion to sinus rhythm. She was continued on amiodarone for rhythm control, metoprolol for rate control and Eliquis for anticoagulation. A Holter monitor was done on 09/22/23 for 3 days shows sinus rhythm with average heart rate 65, frequent isolated PVCs, 2.6% of time, occasional PACs, short runs, longest 9 beats. Echocardiogram done on 09/22/2023 showed EF up to 45-50%, grade 2 diastolic dysfunction. Her reduction in EF was likely related to the atrial fibrillation, elevated heart rates. EKG done today showing sinus bradycardia with PACs, LVH with repolarization abnormality. Continue current med management at present. Recent labs for amiodarone monitoring shows mild hypothyroidism. She is on levothyroxine. (3) Cardiomyopathy: Comment: She has cardio myopathy, secondary to coronary artery disease. Has low ejection fraction. Also has had atrial fibrillation which is now controlled after cardioversion. Actively followed. Up by Cardiology Code(s): I42.9 - Cardiomyopathy, unspecified Qualifiers: Cardiomyopathy type: other Qualified Code(s): I42.8 - Other ca rdiomyopathies Plan: As above. EF reduced to 20-25%. Repeat echo after cardioversion now showing EF 45-50%. Today She describes shortness of breath, orthopnea and has edema. She has not been taking her Lasix. Checking labs and will likely have her resume Lasix temporarily at a higher dose. Continue metoprolol XL for neurohormonal modulation. She did have SUSAN in September with creatinine as high as 3.19. Last known creatinine 1.36 on 12/31/2023. Updating labs today. (4) Essential hypertension: Code(s): I10 - Essential (primary) hypertension Plan: Mildly elevated today. Could be related to fluid overload, as above (5) S/P cardiac cath: Onset Date: ~12/2020 Comment: (12/27/20 - Dr. Garcia, [facility]: Lm normal, mid LAD, proximal 60%, 2nd diag prox 75%, LCx prox stent patent, Lcx mid 65%, 1st OM 40%, RCA prox stent patent, mid RCA prox 70% - inferior/ inferolateral WMA on echo not explained by anatomy) Code(s): Z98.890 - Other specified postprocedural states Plan: As above (6) S/P cardiac catheterization: Comment: Last cardiac catheterization 04/02/2023 showing mid LAD 30% stenosis, proximal circumflex stent patent, mid circumflex 80% stenosis and stent placed, RCA proximal stent patent, mid RCA 50% stenosis Code(s): Z98.890 - Other specified postprocedural states Plan: Per Dr. Lizama last note she should continue on Plavix due to the extent of her vascular disease (7) CAD (coronary artery disease): Comment: (Hx 2 MIs 2018 & 2020 - Hx LCx & RCA stents 2019 - patent on recent 12/2020 cath) Code(s): I25.10 - Atherosclerotic heart disease of [place] coronary artery without angina pectoris Plan: No reports of anginal sounding symptoms. Continue Plavix, atorvastatin, metoprolol XL. Labs done 12/31/2023 showed LDL 67. [place] LDL goal is less than 70. (8) Murmur: Code(s): R01.1 - Cardiac murmur, unspecified Plan: Heart murmur noted on examination. This is not new finding. Echocardiogram results reviewed and no clear findings for cause of heart murmur noted. (9) Shortness of breath: Code(s): R06.02 - Shortness of breath Plan Time spent with chart review, documentation, interview, assessment Orders: Orders Basic Metabolic Panel Today R06.02 - Shortness of breath B Type Natriuretic Peptide Today R06.02 - Shortness of breath Coding Level of Care Code Est Pt Level 4 (85773) Diagnoses CHF (congestive heart failure) I50.9 Atrial fibrillation I48.91 Other cardiomyopathy I42.8 Cardiomyopathy type: other Essential hypertension I10 S/P cardiac cath Z98.890 CAD (coronary artery disease) I25.10 Murmur R01.1 Shortness of breath R06.02 CPT Codes EKG - CPT: [id number], Complete ([id number]) Time Spent (min) 35
[2024-02-02 10:21] VITALS: BP 140/70; PULSE 54
== END 2024-02-02 11:15 | disposition home or self-care (01) ==
PROVIDERS: PCP Internal Medicine; Visit Provider Nurse Practitioner Family
DX: I50.9 Heart failure, unspecified (principal); I48.91 Unspecified atrial fibrillation; I42.8 Other cardiomyopathies; I10 Essential (primary) hypertension; Z98.890 Other specified postprocedural states; I25.10 Atherosclerotic heart disease of native coronary artery without angina pectoris; R01.1 Cardiac murmur, unspecified; R06.02 Shortness of breath
CPT/HCPCS: 93010; 99214

== ENCOUNTER 2024-02-27 08:58 | Outpatient (REF) | payer MEDICARE, BC, SELFPAY ==
[2024-02-27 10:44] LABS: Basophils Absolute Auto 0.1 X10*3/uL (0.0-0.2); Basophils Percent Auto 0.9 % (0-2); Eosinophils Absolute Auto 0.1 X10*3/uL (0.0-0.4); Eosinophils Percent Auto 0.9 % (0-4); Hematocrit 36.4 % (37.0-47.0); Hemoglobin 11.2 g/dl (12.0-16.0); Imm Gran Abs Auto 0.07 X10*3/uL (0.00-0.03); Imm Gran Pct Auto 0.7 % (0.0-0.4); Lymphocytes Absolute Auto 1.1 X10*3/uL (1.2-4.9); Lymphocytes Percent Auto 11.7 % (20-40); MANUAL DIFF FLAG NO; Mean Corpuscular HGB Conc 30.8 g/dl (31.0-35.0); Mean Corpuscular Hemoglobin 24.2 pg (27.0-33.0); Mean Corpuscular Volume 78.8 fL (80.0-98.0); Mean Platelet Volume 9.2 fL (9.4-12.3); Monocytes Absolute Auto 0.5 X10*3/uL (0.1-1.2); Monocytes Percent Auto 5.5 % (2-11); Neutrophils Absolute Auto 7.7 x10*3/uL (2.0-8.3); Neutrophils Percent Auto 80.3 % (45-73); Platelet Count 410 X10*3/uL (160-400); Red Blood Count 4.62 X10*6/uL (4.20-5.50); Red Cell Distribution Width 15.5 % (11.0-16.0); White Blood Count 9.7 X10*3/uL (4.8-10.8)
[2024-02-27 11:31] LABS: Alanine Aminotransferase 11 U/L (0-31); Albumin Level 3.4 g/dL (3.5-5.0); Alkaline Phosphatase 76 U/L (39-117); Anion Gap 17 (12-20); Aspartate Amino Transferase 12 U/L (5-31); Bilirubin Total 0.4 mg/dL (0.0-1.0); Blood Urea Nitrogen 14 mg/dL (9-16); Carbon Dioxide 28 mmol/L (22-29); Chloride 97 mmol/L (96-108); Estimated Glomerular Filt Rate 37; Glucose Random 101 mg/dL (60-115); Sodium 139 mmol/L (135-145); Total Protein 7.7 g/dL (6.5-8.0)
== END 2024-02-27 08:59 | disposition home or self-care (01) ==
LOC: HO.LAB 08:58
PROVIDERS: Absent Provider Internal Medicine; PCP Internal Medicine; Visit Provider Orthopaedic Surgery
DX: D64.89 Other specified anemias (principal); E78.00 Pure hypercholesterolemia, unspecified; I12.9 Hypertensive chronic kidney disease with stage 1 through stage 4 chronic kidney disease, or unspecified chronic kidney disease; I48.91 Unspecified atrial fibrillation; M16.12 Unilateral primary osteoarthritis, left hip; N18.9 Chronic kidney disease, unspecified
CPT/HCPCS: 36415; 80053; 85025

== ENCOUNTER 2024-03-01 13:53 | Outpatient (AMB) | payer MEDICARE, BC, SELFPAY ==
[2024-03-01 13:56] VITALS: BP 134/70; PULSE 60
--- NOTE | 2024-03-01 13:56 | MHC.OFFVIS ---
Vital Signs 03/01/24 13:56 Height 5 ft 3 in BP 134/70 Blood Pressure Location Rt brachial Position Sitting Pulse 60 Pulse Source Monitor Intake Visit Reasons: 4 wk fu after labs Rhinologist Required: No Allergies codeine [Codeine] Adverse Reaction (Mild, Verified 03/01/24 13:58) vomiting Medication List - Last Reconciled 03/01/24 by Ijeoma Becerra, [employer] albuterol sulfate 90 mcg/actuation 2 puffs inhalation Q4-6H PRN 30 days amiodarone 200 mg PO DAILY apixaban (Eliquis) 5 mg PO BID atorvastatin 80 mg PO BEDTIME cholecalciferol (vitamin D3) (Vitamin D3) 25 mcg PO DAILY clopidogrel 75 mg PO DAILY cyanocobalamin (vitamin B-12) (Vitamin B-12) 1,000 mcg PO DAILY fluticasone propion-salmeterol 113-14 mcg/actuation 1 inh inhalation Q12H 30 days furosemide 40 mg See Protocol PO DAILY levothyroxine (Synthroid) 50 mcg PO DAILY melatonin 10 mg PO BEDTIME metoprolol succinate ER 25 mg PO DAILY omeprazole 20 mg PO QAM paroxetine HCl 40 mg PO BEDTIME HPI HPI 4 wk fu after labs: Details: Nai is a 68-year-old female past medical history of hypertension, hyperlipidemia, COPD, PAD, CAD with left circumflex and RCA stents, NSTEMI in setting of hypertensive crisis, heart failure with preserved EF, paroxysmal atrial fibrillation who had not been taking her Lasix at the time of last visit. She did have signs of fluid overloaded. Her Lasix was restarted and she now presents for follow-up. Today she reports that she is feeling much better since the start of Lasix. Her prior shortness of breath, orthopnea and edema has resolved. She believes she has lost approximately 20 lb. No chest discomfort, palpitations, lightheadedness, presyncope, syncope, falls. She has not had any known recurrent atrial fibrillation since last visit. She is now taking all meds as directed. She is planning total hip replacement surgery early next month. She is requesting cardiac clearance. [facility] Medical History History of smoking 30 or more pack years COPD (chronic obstructive pulmonary disease) Atherosclerotic cardiovascular disease PAF (paroxysmal atrial fibrillation) Atrial fibrillation with rapid ventricular response Left renal artery stenosis Personal history of nicotine dependence Cardiomyopathy Essential hypertension Asymmetric blood pressures Acute on chronic systolic (congestive) heart failure CHF (congestive heart failure) CAD (coronary artery disease) Multiple sclerosis Pulmonary nodules Peripheral arterial occlusive disease Surgical History History of endoscopy History of colonoscopy History of heart artery stent (~2018) Status post angioplasty with stent (~09/2018) S/P insertion of iliac artery stent (~02/2019) S/P cardiac cath (~12/2020) History of cholecystectomy (~02/2009) Family History Father No problems noted. Mother No problems noted. Brother Diabetes Social History Household Members: None Housing: House Are you a primary child day care teacher to a significant other at home: No Alcohol intake: never Comment: aware of trip hazard Patient Tobacco Use Status: Former Tobacco user Quit Date: 2017 Tobacco use type: Cigarette e-Cigarette/Vaping Use: Never Used Second Hand Smoke Exposure: No Advance Directives Date on File: 12/27/20 service: No Current occupational status: retired Cognitive needs: Yes (cane) Hearing needs: No Vision needs: Yes (reading glasses) Review of Systems Const Details: Sitting in wheelchair at this visit All systems reviewed & are unremarkable except as noted in HPI and below ENT Denies dizziness Card Details: Breathing much improved, edema resolved Denies chest pain, Denies chest pain at rest, Denies chest pain with activity, Denies rapid heart rate, Denies pedal edema, Denies edema, Denies leg edema, Denies lightheadedness, Denies palpitations, Denies dyspnea, Denies dyspnea on exertion and Denies orthopnea Resp Denies cough, Denies dyspnea and Denies dyspnea on exertion GI Denies hematochezia and Denies change in stool character Musc Details: Hip pain, uses cane Reports abnormal gait, Denies limited range of motion, Denies muscle cramps, Denies muscle weakness, Denies numbness, Denies radiating pain into limb, Denies stiffness and Denies tingling Neuro Reports abnormal gait, Denies dizziness, Denies numbness and Denies tingling Endo Denies palpitations Physical Exam Vital Signs: Last Vital Signs Pulse 60 03/01/24 13:56 BP 134/70 03/01/24 13:56 Const Other: Sitting in wheelchair General: cooperative, comfortable and no acute distress Orientation/consciousness: patient oriented x3 Neck Neck: Yes normal visual inspection and Yes no JVD Resp Effort & Inspection: normal respiratory effort Auscultation: clear to auscultation bilaterally, no rales, no rhonchi and no wheezes Cardio Jugular venous distension: no JVD Rate: regular rate Rhythm: abnormal rhythm Heart sounds: S2 normal heart sound present and Murmur heart sound present (systolic 2/6 right sternal border) Neuro General: patient oriented x3 Extrem Other: No lower leg edema Psych Appearance: grossly normal Mental Status: mental status grossly normal Speech and movement: Normal speech and movement present Office Procedures EKG Details: Today, read by me, normal sinus rhythm, nonspecific intraventricular conduction delay, ST and T-wave abnormality similar to prior EKG, rate 60, JT index 123 [id number], Complete Assessment & Plan Assessment & Plan (1) CHF (congestive heart failure): Comment: She was treated for congestive heart failure/bilateral pleural effusions, in June of this year. She stays on diuretic therapy is doing fairly well at this time. Code(s): I50.9 - Heart failure, unspecified Category: Medical Plan: History of heart failure with preserved EF. Prior decompensated heart failure in the setting of AFib RVR. On last visit she reported shortness of breath for the last 2 weeks with orthopnea and leg edema. She had not been taking her Lasix as directed and also drinking excess fluid. Last echo does showed mildly reduced EF and grade [address] scan of the chest done 12/19/2023 for noncardiac reason does show new bilateral small pleural effusions. Blood work was done showing BNP 3242. I had her go back on her usual Lasix 40 mg daily. Today she presents for one-month follow-up telling me that her breathing is much improved. She no longer has shortness of breath, orthopnea or edema. She reports losing approximately 20 lb. On exam today she does not appear fluid overloaded. She did have labs drawn on 02/27/2024 which showed potassium 3.0, creatinine 1.4. Discussed potassium supplement with her and she is reluctant however EKG today is showing JT index 123 which is prolonged. Will prescribe potassium chloride 20 mEq daily. She will also increase the potassium in her diet. She will need a recheck of labs in 1 week. Recommend repeat EKG be done at her preadmission testing for upcoming surgery. Signs and symptoms heart failure reviewed with her. Cardiology follow-up in 4 months, sooner if needed. (2) Atrial fibrillation: Code(s): I48.91 - Unspecified atrial fibrillation Category: Medical Plan: History of paroxysmal atrial fibrillation. Noted to have AFib RVR at 05/2023 hospital admission which was treated with rate control. She was then started on amiodarone to help with rhythm control. An echocardiogram done 05/28/2023 showed EF 20-25%, left atrium severely dilated, basal inferior and inferior septum akinetic. The EF has reduced from prior echocardiogram 11/01/2022 when EF was 59%. A nuclear stress test had been done 02/07/2023 showing normal myocardial perfusion imaging. She continued to have atrial fibrillation and was experiencing much shortness of breath with activity. No heart palpitations. She underwent cardioversion with Dr. Lizama on 08/01/2023 with successful conversion to sinus rhythm. She was continued on amiodarone for rhythm control, metoprolol for rate control and Eliquis for anticoagulation. A Holter monitor was done on 09/22/23 for 3 days shows sinus rhythm with average heart rate 65, frequent isolated PVCs, 2.6% of time, occasional PACs, short runs, longest 9 beats. Echocardiogram done on 09/22/2023 showed EF up to 45-50%, grade 2 diastolic dysfunction. Her reduction in EF was likely related to the atrial fibrillation, elevated heart rates. She has not had documented recurrent atrial fibrillation since her cardioversion last July. EKG done today showing sinus rhythm, ST and T-wave abnormality same as seen on prior EKGs, rate 60. Continue current med management. Recent labs for amiodarone monitoring shows mild hypothyroidism. She is on levothyroxine. LFTs are normal. (3) Cardiomyopathy: Comment: She has cardio myopathy, secondary to coronary artery disease. Has low ejection fraction. Also has had atrial fibrillation which is now controlled after cardioversion. Actively followed. Up by Cardiology Code(s): I42.9 - Cardiomyopathy, unspecified Category: Medical Qualifiers: Cardiomyopathy type: other Qualified Code(s): I42.8 - Other cardiomyopathies Plan: As above. EF reduced to 20-25%. Repeat echo after cardioversion now showing EF 45-50%. The drop in EF like related to AFib/RVR. She did have signs of fluid overload at last visit but she was not taking her Lasix. Had her restart Lasix and today she is clinically much improved. Will be having her update labs in the near future to reassess potassium and BNP. Continue metoprolol XL for neurohormonal modulation. She did have SUSAN in September with creatinine as high as 3.19. She is not on Andrew or Arb at this time. Last known creatinine 1.4 on 02/27/2024. (4) Essential hypertension: Code(s): I10 - Essential (primary) hypertension Category: Medical Plan: Normal range today. Continue current antihypertensives (5) S/P cardiac cath: Onset Date: ~12/2020 Comment: (12/27/20 - Dr. Garcia, [facility]: Lm normal, mid LAD, proximal 60%, 2nd diag prox 75%, LCx prox stent patent, Lcx mid 65%, 1st OM 40%, RCA prox stent patent, mid RCA prox 70% - inferior/ inferolateral WMA on echo not explained by anatomy) Code(s): Z98.890 - Other specified postprocedural states Category: Surgical Plan: As above (6) S/P cardiac catheterization: Comment: Last cardiac catheterization 04/02/2023 showing mid LAD 30% stenosis, proximal circumflex stent patent, mid circumflex 80% stenosis and stent placed, RCA proximal stent patent, mid RCA 50% stenosis Code(s): Z98.890 - Other specified postprocedural states Category: Surgical Plan: Last coronary stent placed 04/02/2023, PETRA to the mid circumflex. She also has residual mid LAD stenosis, RCA stent and mid RCA stenosis. Per Dr. Lizama last note she should continue on Plavix due to the extent of her vascular disease. (7) CAD (coronary artery disease): Comment: (Hx 2 MIs 2018 & 2020 - Hx LCx & RCA stents 2019 - patent on recent 12/2020 cath) Code(s): I25.10 - Atherosclerotic heart disease of [place] coronary artery without angina pectoris Category: Medical Plan: No reports of anginal sounding symptoms. Continue Plavix, atorvastatin, metoprolol XL. Labs done 12/31/2023 showed LDL 67. [place] LDL goal is less than 70. (8) Murmur: Code(s): R01.1 - Cardiac murmur, unspecified Category: Medical Plan: Heart murmur noted on examination. This is not new finding. Echocardiogram 05/28/2023 shows [id number] mitral regurgitation, normal aortic valve, mild TR. (9) Shortness of breath: Code(s): R06.02 - Shortness of breath Category: Medical Plan: Resolved (10) Hypokalemia: Code(s): E87.6 - Hypokalemia Category: Medical Plan: As above (11) Preop cardiovascular exam: Code(s): Z01.810 - Encounter for preprocedural cardiovascular examination Category: Medical Plan: Preop for total hip replacement on 04/01/[address] Andre fink at [facility]. Cardiac testing as above. She is intermediate cardiac risk to proceed with hip replacement surgery. Discussed this risk with her. She states understanding and is agreeable to proceed. Plavix can be held for up to 5 days prior to the surgery and restart as soon as cleared by surgeon to do so. Eliquis can be held 2-3 days prior to her surgery and restart as soon as cleared by surgeon to do so. Stroke risk while off Eliquis reviewed with her. Recommend repeat EKG prior to surgery. Currently has prolonged JT index which is likely related to hypokalemia. She has been given a potassium supplement. Plan Time spent with chart review, documentation, interview, assessment Orders: Orders Basic Metabolic Panel Today E87.6 - Hypokalemia Medications: New potassium chloride ER 20 mEq PO DAILY 30 tabs 0RF Coding Level of Care Code Est Pt Level 4 (71445) Diagnoses CHF (congestive heart failure) I50.9 Atrial fibrillation I48.91 Other cardiomyopathy I42.8 Cardiomyopathy type: other Essential hypertension I10 S/P cardiac cath Z98.890 CAD (coronary artery disease) I25.10 Murmur R01.1 Shortness of breath R06.02 Hypokalemia E87.6 Preop cardiovascular exam Z01.810 CPT Codes EKG - CPT: 72546-[id number], Complete ([id number]) Time Spent (min) 36
== END 2024-03-01 14:31 | disposition home or self-care (01) ==
PROVIDERS: PCP Internal Medicine; Visit Provider Nurse Practitioner Family
DX: I50.9 Heart failure, unspecified (principal); I48.91 Unspecified atrial fibrillation; I42.8 Other cardiomyopathies; I10 Essential (primary) hypertension; Z98.890 Other specified postprocedural states; I25.10 Atherosclerotic heart disease of native coronary artery without angina pectoris; R01.1 Cardiac murmur, unspecified; R06.02 Shortness of breath; E87.6 Hypokalemia; Z01.810 Encounter for preprocedural cardiovascular examination
CPT/HCPCS: 93010; 99214

== ENCOUNTER → 2024-03-01 13:53 | Outpatient (BNVA) | payer MEDICARE, BC, SELFPAY | PROVIDERS: PCP Internal Medicine; Visit Provider Nurse Practitioner Family | DX: Z01.810 Encounter for preprocedural cardiovascular examination (principal); I11.0 Hypertensive heart disease with heart failure; I50.9 Heart failure, unspecified; I48.91 Unspecified atrial fibrillation; I42.8 Other cardiomyopathies; I25.10 Atherosclerotic heart disease of native coronary artery without angina pectoris; R01.1 Cardiac murmur, unspecified; R06.02 Shortness of breath; E87.6 Hypokalemia; Z98.890 Other specified postprocedural states | CPT/HCPCS: 93005; 99212 ==

== ENCOUNTER → 2024-03-15 13:30 | Outpatient (BNV) | payer MEDICARE, BC, SELFPAY | PROVIDERS: Admitting Provider Orthopaedic Surgery; PCP Internal Medicine; Visit Provider Internal Medicine Cardiovascular Disease | DX: R94.31 Abnormal electrocardiogram [ECG] [EKG] (principal) | CPT/HCPCS: 93010 ==

== ENCOUNTER 2024-03-23 12:26 | Outpatient (REF) | payer MEDICARE, BC, SELFPAY ==
[2024-03-23 13:33] LABS: Calcium 9.2 mg/dL (8.4-10.2)
[2024-03-23 13:41] LABS: Alanine Aminotransferase 11 U/L (0-31); Albumin Level 3.3 g/dL (3.5-5.0); Alkaline Phosphatase 81 U/L (39-117); Anion Gap 13 (12-20); Anion Gap 14 (12-20); Aspartate Amino Transferase 11 U/L (5-31); Bilirubin Total 0.3 mg/dL (0.0-1.0); Blood Urea Nitrogen 21 mg/dL (9-16); Calcium 9.4 mg/dL (8.4-10.2); Calcium 9.5 mg/dL (8.4-10.2); Carbon Dioxide 25 mmol/L (22-29); Carbon Dioxide 27 mmol/L (22-29); Chloride 102 mmol/L (96-108); Cholesterol 127 mg/dL (<200); Estimated Glomerular Filt Rate 36; Estimated Glomerular Filt Rate 37; Glucose Random 119 mg/dL (60-115); Glucose Random 120 mg/dL (60-115); HDL Cholesterol 64 mg/dL (>40); LDL Cholesterol Calculated 53 mg/dL (<100); Magnesium 1.7 mg/dL (1.6-2.6); Potassium 4.1 mmol/L (3.3-5.1); Sodium 137 mmol/L (135-145); Sodium 138 mmol/L (135-145); Total Protein 7.2 g/dL (6.5-8.0); Triglycerides 53 mg/dL (<150)
== END 2024-03-23 12:27 | disposition home or self-care (01) ==
LOC: HO.LAB 12:26
PROVIDERS: PCP Internal Medicine; Visit Provider Nurse Practitioner Family
DX: R94.31 Abnormal electrocardiogram [ECG] [EKG] (principal); E87.6 Hypokalemia; I25.10 Atherosclerotic heart disease of native coronary artery without angina pectoris; I48.19 Other persistent atrial fibrillation
CPT/HCPCS: 36415; 80048; 80053; 80061; 82310; 83735

== ENCOUNTER 2024-03-25 09:43 | Outpatient (AMB) | payer MEDICARE, BC, SELFPAY ==
--- NOTE | 2024-03-25 09:57 | MHC.OFFVIS ---
Vital Signs 03/25/24 10:08 Height 5 ft 3 in Weight 157 lb BMI 27.8 Intake Visit Reasons: Pre-Op: LTHA w/NE 03/30/24 Intake Note: Nai a 68 year old female who presents today for a preoperative left KATHERINE on 03/30/24 NE. Pain management agreement reviewed and signed. Allergies codeine [Codeine] Adverse Reaction (Mild, Verified 03/25/24 10:05) vomiting HPI Comments Details: Ms Garcia presents to the office today for preop visit. She is scheduled for left total hip arthroplasty with Dr. Powell. She continues to have ongoing pain and difficulty with ambulation in the left hip, which is affecting her quality of life; therefore, she has elected to move forward with surgery. [facility] Medical History (Updated 03/17/24 @ 20:29 by MODESTA Tyler) History of cardioversion Myocardial infarction Arthritis Hx of transfusion of packed red blood cells Thyroid disease GERD (gastroesophageal reflux disease) CKD (chronic kidney disease) On anticoagulant therapy History of smoking 30 or more pack years PAF (paroxysmal atrial fibrillation) Atrial fibrillation with rapid ventricular response Left renal artery stenosis Personal history of nicotine dependence Cardiomyopathy Essential hypertension Atherosclerotic cardiovascular disease Asymmetric blood pressures Acute on chronic systolic (congestive) heart failure CHF (congestive heart failure) CAD (coronary artery disease) Multiple sclerosis Pulmonary nodules COPD (chronic obstructive pulmonary disease) Peripheral arterial occlusive disease Surgical History History of endoscopy History of colonoscopy History of heart artery stent (~2018) Status post angioplasty with stent (~09/2018) S/P insertion of iliac artery stent (~02/2019) S/P cardiac cath (~12/2020) History of cholecystectomy (~02/2009) Family History Father No problems noted. Mother No problems noted. Brother Diabetes Social History Household Members: None Housing: House Are you a primary anesthesiologist and critical care to a significant other at home: No Do you presently have visiting nurse or other home services: No Alcohol intake: never Comment: aware of trip hazard Patient Tobacco Use Status: Former Tobacco user Tobacco use type: Cigarette e-Cigarette/Vaping Use: Never Used Second Hand Smoke Exposure: No Advance Directives Date on File: 12/27/20 service: No Current occupational status: retired Cognitive needs: Yes (cane) Hearing needs: No Vision needs: Yes (reading glasses) Review of Systems Const All systems reviewed & are unremarkable except as noted in HPI and below Physical Exam Vital Signs: BMI result Body Mass Index 27.8 Const General: cooperative and no acute distress Orientation/consciousness: patient oriented x3 HEENT Head: Yes normal to inspection, Yes normocephalic and Yes atraumatic Mouth: moist mucous membranes Eyes General: appearance normal, both eyes and all related structures EOM: EOMs intact bilaterally Neck Neck: Yes normal visual inspection and Yes no lymphadenopathy Chest Other: no audible wheezing. Resp Other: No audible wheezing Effort & Inspection: normal respiratory effort and able to speak in complete sentences Cardio Rate: regular rate Peripheral pulses: Peripheral pulses 2+ throughout GI Inspection: Yes normal to inspection Palpation (GI): Soft to palpation Back/Spine/Pelvis Cervical Spine: normal cervical lordosis Skin General skin exam: no rashes or lesions noted Neuro General: patient oriented x3 Extrem Other: + gait antalgia + impingement +Stinchfield Minimal IR when flexed compared to right Psych Appearance: grossly normal and well kempt Mental Status: mental status grossly normal Speech and movement: Normal speech and movement present Affect: normal affect Attitude: cooperative Assessment & Plan Assessment & Plan (1) Osteoarthritis of left hip: Code(s): M16.12 - Unilateral primary osteoarthritis, left hip Category: Medical Plan: I discussed in detail the procedure and what to expect pre and post operatively. We discussed the risks, benefits and alternatives to the surgery as well as the rehabilitation course. The risks; which include, but are not limited to infection, bleeding, nerve injury, ongoing pain, swelling, and stiffness, perioperative risk of injury to bones and soft tissues, and blood clots. I?ve answered all questions and with their understanding they have consented to move forward with Left total hip arthroplasty with Dr. Powell It is know the patient is intermediate risk for surgery per cardiology and given the risk, benefits and alternatives patient wishes to proceed. Patient Instructions: Scribed for Carlos Sharma PA-C, by [facility], on 03/25/2024 at 9:45 AM EST.? I, Carlos Sharma PA-C, have personally reviewed and agree with the information entered by the scribe. Coding Level of Care Code Est Pt Level 3 (08998) Diagnoses Osteoarthritis of left hip M16.12
[2024-03-25 10:08] VITALS: BMI 27.8
== END 2024-03-25 11:57 | disposition home or self-care (01) ==
PROVIDERS: PCP Internal Medicine; Visit Provider Physician Assistant
DX: M16.12 Unilateral primary osteoarthritis, left hip (principal)
CPT/HCPCS: 99024

== ENCOUNTER → 2024-03-25 09:43 | Outpatient (BNVA) | payer MEDICARE, BC, SELFPAY | PROVIDERS: PCP Internal Medicine; Visit Provider Physician Assistant | DX: Z01.818 Encounter for other preprocedural examination (principal); M16.12 Unilateral primary osteoarthritis, left hip | CPT/HCPCS: 99212 ==

== ENCOUNTER 2024-03-29 09:17 | Outpatient (REF) | payer MEDICARE, BC, SELFPAY ==
[2024-03-29 11:26] LABS: Alanine Aminotransferase 11 U/L (0-31); Albumin Level 3.3 g/dL (3.5-5.0); Alkaline Phosphatase 81 U/L (39-117); Anion Gap 16 (12-20); Aspartate Amino Transferase 12 U/L (5-31); Bilirubin Total 0.5 mg/dL (0.0-1.0); Blood Urea Nitrogen 20 mg/dL (9-16); Calcium 9.9 mg/dL (8.4-10.2); Carbon Dioxide 25 mmol/L (22-29); Chloride 100 mmol/L (96-108); Estimated Glomerular Filt Rate 32; Glucose Random 119 mg/dL (60-115); Sodium 137 mmol/L (135-145); Total Protein 7.6 g/dL (6.5-8.0)
== END 2024-03-29 09:18 | disposition home or self-care (01) ==
LOC: HO.LAB 09:17
PROVIDERS: Absent Provider Internal Medicine; PCP Internal Medicine; Visit Provider Nurse Practitioner Family
DX: Z13.89 Encounter for screening for other disorder (principal)
CPT/HCPCS: 36415; 80053

== ENCOUNTER 2024-03-30 07:31 | Inpatient (IN) | payer MEDICARE, BC, SELFPAY ==
--- NOTE | 2024-03-15 | ECG_ITS ---
Test Reason : PREOP Blood Pressure : / mmHG Vent. Rate : 065 BPM Atrial Rate : 065 BPM P-R Int : 172 ms QRS Dur : 114 ms QT Int : 514 ms P-R-T Axes : 034 045 121 degrees QTc Int : 534 ms Normal sinus rhythm Left ventricular hypertrophy with repolarization abnormality ( Dalton product ) Prolonged QT Abnormal ECG When compared with ECG of 15-OCT-2023 12:28, T wave inversion less evident in Anterior leads QT has shortened Referred By: Amanda Mcintosh Electronically Signed By:Wilder Garcia
[2024-03-15 12:40] VITALS: BP 127/57; PULSE 62; RESP 17; O2SAT 100; BMI 22.1
--- NOTE | 2024-03-15 13:01 | P.CONAN_ITS ---
Documented by User: Amanda Mcintosh NP 03/29/24 14:56 HPI - Anesthesia Eval Consult details Narrative: 68yo F for Left Hip Total Replacement, 03/30/24 No recent illness No CP. GONZALEZ at baseline. Very limited exercise capacity d/t pain and deconditioning Cardiac cleared 02/2024. Follows [facility] [place] cardiology for hypertension, hyperlipidemia, COPD, PAD, CAD with left circumflex and RCA stents, NSTEMI in setting of hypertensive crisis, heart failure with preserved EF, paroxysmal atrial fibri llation. Previously with volume overload. Was not taking lasix as rx'd. Since with med compliance, diuresis and euvolemic. Low K on preop labs. Supplement started by cardiology. Will repeat K and EKG (prior prolonged) per cardiology rec. 03/17/24: K normalized. Awaiting cardiac input on repeat EKG. 03/24/24: Per cardiology, pt instructed to stop amioderone. Repeat EKG planned 03/29/24. Pt ok to proceed unless instructed otherwise after final EKG. 03/29/24: Per Ijeoma Becerra NP, EKG today improved. JT index normal. OK to proceed Pulmo cleared. Follows [facility] [place] pulmo Nephrology: pending Eliquis for afib COPD. Sched inhaler BID. No rescue inhaler GERD on ppi PMFSH Active Problems Active Problems: All Active Problems Hypokalemia (Acute) Shortness of breath (Acute) Osteoarthritis of left hip (Acute) Murmur (Acute) Atrial fibrillation (Acute) Bacteremia due to Escherichia coli (Acute) S/P cardiac catheterization (Acute) Hypotonic neurogenic bladder (Acute) Acute on chronic HFrEF (heart failure with reduced ejection fraction) (Acute) Acute respiratory failure with hypoxia (Acute) Pleural effusion (Acute) COVID-19 (Acute) Hospital discharge follow-up (Acute) Atrial fibrillation, persistent (Acute) Fracture of left proximal ulna (Acute) Urinary retention with incomplete bladder emptying (Acute) Open olecranon fracture (Acute) Raynauds disease (Acute) Acquired hypothyroidism (Acute) Other specified disorders of bone density and structure, right shoulder (Acute) Screening for osteoporosis (Acute) Preop cardiovascular exam (Acute) Bilateral cataracts (Acute) Preoperative clearance (Acute) PAD (peripheral artery disease) (Acute) Left leg pain (Acute) Hypertensive emergency (Acute) Acute diastolic (congestive) heart failure (Acute) Rectal bleeding (Acute) NSTEMI (non-ST elevated myocardial infarction) (Acute) Hypertensive crisis (Acute) Acute and chronic respiratory failure with hypoxia (Acute) Acute exacerbation of CHF (congestive heart failure) (Acute) COPD (chronic obstructive pulmonary disease) (Acute) History of smoking 30 or more pack years (Acute) Atherosclerotic cardiovascular disease (Acute) CAD (coronary artery disease) (Acute) CHF (congestive heart failure) (Acute) Essential hypertension (Acute) Cardiomyopathy (Acute) Asymmetric blood pressures (Acute) S/P cardiac cath (Acute ~12/2020) Acute on chronic systolic (congestive) heart failure (Acute) Pulmonary nodules (Acute) Peripheral arterial occlusive disease (Acute) Past Medical History Medical History (Updated 03/30/24 @ 07:44 by Nadine Becerra RN) Bilateral cataracts History of cardioversion Myocardial infarction Arthritis Hx of transfusion of packed red blood cells Thyroid disease GERD (gastroesophageal reflux disease) CKD (chronic kidney disease) On anticoagulant therapy History of smoking 30 or more pack years PAF (paroxysmal atrial fibrillation) Atrial fibrillation with rapid ventricular response Left renal artery stenosis Personal history of nicotine dependence Cardiomyopathy Essential hypertension Atherosclerotic cardiovascular disease Asymmetric blood pressures Acute on chronic systolic (congestive) heart failure CHF (congestive heart failure) CAD (coronary artery disease) Multiple sclerosis Pulmonary nodules COPD (chronic obstructive pulmonary disease) Peripheral arterial occlusive disease Family History Family History Father No problems noted. Mother No problems noted. Brother Diabetes Family history of problems with anesthesia: No Surgical History Surgical History History of endoscopy History of colonoscopy History of heart artery stent (~2018) Status post angioplasty with stent (~09/2018) S/P insertion of iliac artery stent (~02/2019) S/P cardiac cath (~12/2020) History of cholecystectomy (~02/2009) History of Problems with Anesthesia: No Social History Social History Household Members: None Housing: House Are you a primary healthcare applications analyst to a significant other at home: No Do you presently have visiting nurse or other home services: No Alcohol intake: never Comment: aware of trip hazard Patient Tobacco Use Status: Former Tobacco user Tobacco use type: Cigarette e-Cigarette/Vaping Use: Never Used Second Hand Smoke Exposure: No Use of substances other than those prescribed or required for medical reasons: No Have you been hit, kicked, punched, or otherwise hurt by someone within the past year? If so, by whom?: No Are you DNR?: No Advance Directives: Yes Advance Directives Information Provided: No Advance Directives on File: Yes Advance Directives Date on File: 12/27/20 Recently lost weight without trying: Yes How much weight loss: 2-13 pounds Eating poorly because of decreased appetite: No Nutrition screen score: 3 Nutrition Risks: Anorexia Patient : No : No Poor oral hygiene: Yes (upper full denture, missing teeth on the bottom) service: No Current occupational status: retired Cognitive needs: Yes (cane) Hearing needs: No Vision needs: Yes (reading glasses) Meds Allergies Allergy/AdvReac Type Severity Reaction Status Date / Time codeine [Codeine] AdvReac Mild vomiting Verified 03/25/24 10:05 Home Medications ?Medication ?Instructions ?Recorded ?Confirmed ?Last Taken ?Type paroxetine HCl 40 mg tablet 40 mg PO BEDTIME 10/03/20 03/30/24 03/29/24 History cholecalciferol (vitamin D3) 25 25 mcg PO DAILY 12/20/20 03/15/24 03/25/24 History mcg (1,000 unit) tablet (Vitamin D3) cyanocobalamin (vitamin B-12) 1,000 mcg PO DAILY 12/20/20 03/30/24 03/29/24 History 1,000 mcg tablet (Vitamin B-12) melatonin 10 mg tablet 10 mg PO BEDTIME Insomnia 01/13/23 03/30/24 03/29/24 History levothyroxine 50 mcg tablet 50 mcg PO DAILY 09/02/23 03/30/24 03/29/24 History (Synthroid) metoprolol succinate 25 mg 25 mg PO DAILY 12/25/23 03/15/24 03/30/24 History tablet,extended release 24 hr pantoprazole 40 mg tablet,delayed 40 mg PO DAILY 03/15/24 03/30/24 03/30/24 History release Exam Height,Weight and Vital Signs: Height 5 ft 6 in Weight 62.142 kg Last Vital Signs Pulse 62 03/15/24 12:40 Resp 17 03/15/24 12:40 BP 127/57 L 03/15/24 12:40 Pulse Ox 100 03/15/24 12:40 O2 Del Method Room Air 03/15/24 12:40 Pertinent Lab Results Pertinent Lab Results: Laboratory Tests 02/27/24 10:02 WBC 9.7 Hgb 11.2 L Hct 36.4 L Plt Count 410 H D Lab Results 03/15/24 03/15/24 03/15/24 Range/Units 12:53 13:36 13:45 Sodium 139 (135-145) mmol/L Potassium 3.7 D (3.3-5.1) mmol/L Chloride 99 (96-108) mmol/L Carbon Dioxide 24 (22-29) mmol/L Anion Gap 20 (12-20) B-Natriuretic Peptide 506 H (<100) pg/mL Nasal Screen MRSA (PCR) NEGATIVE (Negative) Nasal S. aureus Screen NEGATIVE (Negative) Nasal MRSA/S.aureus Interp SEE NOTE Blood Type O Negative Antibody Screen NEGATIVE Narrative Narrative: EKG 02/2024 normal sinus rhythm, nonspecific intraventricular conduction delay, ST and T- wave abnormality similar to prior EKG, rate 60, JT index 123 Repeat EKG 02/2024 Normal sinus rhythm Left ventricular hypertrophy with repolarization abnormality ( Pierre product ) Prolonged QT Abnormal ECG When compared with ECG of 15-OCT-2023 12:28, T wave inversion less evident in Anterior leads QT has shortened ECHO 2022 Conclusions: - Mildly reduced LV ejection fraction of 45-50% with mild LVH with at least grade 2 diastolic dysfunction 02/07/23 nuclear stress test 1. Myocardial perfusion imaging study shows likely normal myocardial perfusion 2. Gated LVEF is 46% 3. Transient ischemic dilatation not present but LV cavity is dilated Airway Mallampati Class: II TM Dist: >3cm Neck ROM: Full Denture: Upper Loose/Missing/Broken Teeth: Yes (Few teeth remaining on the bottom, broken) Heart: RRR Lungs: CTAB Assessment and Plan Assessment Anesthesia Assessment: Anesthesia Plan Discussed and PAT Visit Final Anesthetic Review Family History of Problems with Anesthesia: No History of Problems with Anesthesia: No Documented by User: Dawna Ramos MD 03/30/24 09:20 [facility] Past Medical History Medical History (Updated 03/30/24 @ 07:44 by Nadine Becerra RN) Bilateral cataracts History of cardioversion Myocardial infarction Arthritis Hx of transfusion of packed red blood cells Thyroid disease GERD (gastroesophageal reflux disease) CKD (chronic kidney disease) On anticoagulant therapy History of smoking 30 or more pack years PAF (paroxysmal atrial fibrillation) Atrial fibrillation with rapid ventricular response Left renal artery stenosis Personal history of nicotine dependence Cardiomyopathy Essential hypertension Atherosclerotic cardiovascular disease Asymmetric blood pressures Acute on chronic systolic (congestive) heart failure CHF (congestive heart failure) CAD (coronary artery disease) Multiple sclerosis Pulmonary nodules COPD (chronic obstructive pulmonary disease) Peripheral arterial occlusive disease Family History Family History Father No problems noted. Mother No problems noted. Brother Diabetes Surgical History Surgical History History of endoscopy History of colonoscopy History of heart artery stent (~2018) Status post angioplasty with stent (~09/2018) S/P insertion of iliac artery stent (~02/2019) S/P cardiac cath (~12/2020) History of cholecystectomy (~02/2009) Social History Social History Household Members: None Housing: House Are you a primary healthcare applications analyst to a significant other at home: No Do you presently have visiting nurse or other home services: No Alcohol intake: never Comment: aware of trip hazard Patient Tobacco Use Status: Former Tobacco user Tobacco use type: Cigarette e-Cigarette/Vaping Use: Never Used Second Hand Smoke Exposure: No Use of substances other than those prescribed or required for medical reasons: No Have you been hit, kicked, punched, or otherwise hurt by someone within the past year? If so, by whom?: No Are you DNR?: No Advance Directives: Yes Advance Directives Information Provided: No Advance Directives on File: Yes Advance Directives Date on File: 12/27/20 Recently lost weight without trying: Yes How much weight loss: 2-13 pounds Eating poorly because of decreased appetite: No Nutrition screen score: 3 Nutrition Risks: Anorexia Patient : No : No Poor oral hygiene: Yes (upper full denture, missing teeth on the bottom) service: No Current occupational status: retired Cognitive needs: Yes (cane) Hearing needs: No Vision needs: Yes (reading glasses) Meds Allergies Allergy/AdvReac Type Severity Reaction Status Date / Time codeine [Codeine] AdvReac Mild vomiting Verified 03/25/24 10:05 Home Medications ?Medication ?Instructions ?Recorded ?Confirmed ?Last Taken ?Type paroxetine HCl 40 mg tablet 40 mg PO BEDTIME 10/03/20 03/30/24 03/29/24 History cholecalciferol (vitamin D3) 25 25 mcg PO DAILY 12/20/20 03/15/24 03/25/24 History mcg (1,000 unit) tablet (Vitamin D3) cyanocobalamin (vitamin B-12) 1,000 mcg PO DAILY 12/20/20 03/30/24 03/29/24 History 1,000 mcg tablet (Vitamin B-12) melatonin 10 mg tablet 10 mg PO BEDTIME Insomnia 01/13/23 03/30/24 03/29/24 History levothyroxine 50 mcg tablet 50 mcg PO DAILY 09/02/23 03/30/24 03/29/24 History (Synthroid) metoprolol succinate 25 mg 25 mg PO DAILY 12/25/23 03/15/24 03/30/24 History tablet,extended release 24 hr pantoprazole 40 mg tablet,delayed 40 mg PO DAILY 03/15/24 03/30/24 03/30/24 History release Assessment and Plan Final Anesthetic Review NPO: Yes ASA Class: III Final Preanesthetic Review: No Changes in Pt Med Stat, Meds/Allgs Chart Reviewed and Consent Obtained/Reviewed Patient Risk: Intermediate Procedure Risk: Intermediate Anesthetic Plan Anesthetic Plan: GA Disposition: Standard PACU
[2024-03-15 14:46] LABS: MRSA Nasal PCR NEGATIVE (Negative); SA Nasal PCR NEGATIVE (Negative)
[2024-03-15 15:04] LABS: B Type Natriuretic Peptide 506 pg/mL (<100)
[2024-03-15 15:05] LABS: Anion Gap 20 (12-20); Carbon Dioxide 24 mmol/L (22-29); Chloride 99 mmol/L (96-108); Potassium 3.7 mmol/L (3.3-5.1); Sodium 139 mmol/L (135-145)
[2024-03-30] VITALS (15 sets, daily range): BP systolic 82–147; BP diastolic 43–65; PULSE 48–69; RESP 10–18; TEMP 36.2–37; O2SAT 96–100
--- NOTE | ~2024-03-30 | XR_ITS ---
EXAMINATION: XR PELVIS CLINICAL INFORMATION: Left total hip arthroplasty COMPARISON: CT scan of the abdomen and pelvis September 2023 TECHNIQUE: AP view of the low pelvis FINDINGS: There is a total hip arthroplasty in place. The components are in the usual position and are unchanged. There is no periprosthetic fracture or surrounding abnormal lucency. There is no effusion. The surrounding soft tissues are normal. Soft tissue gas compatible with postoperative state.. Skin oumou in place. Mild osteoarthritis of the right hip. Arterial calcification noted on the right with stent in place. Soft tissue calcifications overlie the right iliac bone demonstrated on prior CT in the posterior subcutaneous soft tissues perhaps related to injection granuloma XR/XR pelvis 1-2V IMPRESSION: Left total hip arthroplasty without complication by x-ray. Mild arthrosis of the right hip unchanged.
[2024-03-30] MEDS: oxyCODONE HCl ER 10 MG TAB.ER.12H PO ×2 (08:05→21:20)
[2024-03-30] MEDS: Lactated Ringers 1,000 ML 50 ML IVCONT (08:42)
--- NOTE | 2024-03-30 09:03 | MHC.SHP ---
Pre-Procedural Eval Section A - 24 Hr Update-Section A only Date of Service: 03/30/24 The patient is an INPATIENT: No Changes since office visit: No Cold of Flu in the past 2 weeks, No New Medical Problems, No Changes in Medication and No Patient answered all questions The patient has been examined within 24 hours of the surgical procedure. The History & Physical has been completed within 30 days and I have reviewed it.: Yes Section B - Complete if H&P > 30 days Chief Complaint: lt ariadna Allergies: Allergies Allergy/AdvReac Type Severity Reaction Status Date / Time codeine [Codeine] AdvReac Mild vomiting Verified 03/25/24 10:05 Plan I have reviewed the history and physical and performed a pertinent physical examination on my patient. No changes have occurred unless specified. Time Spent With Patient Time: Total time managing care of this patient today ____ minutes.
--- NOTE | 2024-03-30 10:53 | PC.NURSE ---
DELAY IN ROOM DUE TO STAFF AND EQUIPMENT
--- NOTE | 2024-03-30 11:33 | P.CONAN_ITS ---
[facility] Active Problems Active Problems: All Active Problems Abnormal ECG (Acute) Hypokalemia (Acute) Shortness of breath (Acute) Osteoarthritis of left hip (Acute) Murmur (Acute) Atrial fibrillation (Acute) Bacteremia due to Escherichia coli (Acute) S/P cardiac catheterization (Acute) Hypotonic neurogenic bladder (Acute) Acute on chronic HFrEF (heart failure with reduced ejection fraction) (Acute) Acute respiratory failure with hypoxia (Acute) Pleural effusion (Acute) COVID-19 (Acute) Hospital discharge follow-up (Acute) Atrial fibrillation, persistent (Acute) Fracture of left proximal ulna (Acute) Urinary retention with incomplete bladder emptying (Acute) Open olecranon fracture (Acute) Raynauds disease (Acute) Acquired hypothyroidism (Acute) Other specified disorders of bone density and structure, right shoulder (Acute) Screening for osteoporosis (Acute) Preop cardiovascular exam (Acute) Bilateral cataracts (Acute) Preoperative clearance (Acute) PAD (peripheral artery disease) (Acute) Left leg pain (Acute) Hypertensive emergency (Acute) Acute diastolic (congestive) heart failure (Acute) Rectal bleeding (Acute) NSTEMI (non-ST elevated myocardial infarction) (Acute) Hypertensive crisis (Acute) Acute and chronic respiratory failure with hypoxia (Acute) Acute exacerbation of CHF (congestive heart failure) (Acute) COPD (chronic obstructive pulmonary disease) (Acute) History of smoking 30 or more pack years (Acute) Atherosclerotic cardiovascular disease (Acute) CAD (coronary artery disease) (Acute) CHF (congestive heart failure) (Acute) Essential hypertension (Acute) Cardiomyopathy (Acute) Asymmetric blood pressures (Acute) S/P cardiac cath (Acute ~12/2020) Acute on chronic systolic (congestive) heart failure (Acute) Pulmonary nodules (Acute) Peripheral arterial occlusive disease (Acute) Past Medical History Medical History (Updated 03/30/24 @ 07:44 by Nadine Becerra RN) Bilateral cataracts History of cardioversion Myocardial infarction Arthritis Hx of transfusion of packed red blood cells Thyroid disease GERD (gastroesophageal reflux disease) CKD (chronic kidney disease) On anticoagulant therapy History of smoking 30 or more pack years PAF (paroxysmal atrial fibrillation) Atrial fibrillation with rapid ventricular response Left renal artery stenosis Personal history of nicotine dependence Cardiomyopathy Essential hypertension Atherosclerotic cardiovascular disease Asymmetric blood pressures Acute on chronic systolic (congestive) heart failure CHF (congestive heart failure) CAD (coronary artery disease) Multiple sclerosis Pulmonary nodules COPD (chronic obstructive pulmonary disease) Peripheral arterial occlusive disease Family History Family History Father No problems noted. Mother No problems noted. Brother Diabetes Family history of problems with anesthesia: No Surgical History Surgical History History of endoscopy History of colonoscopy History of heart artery stent (~2018) Status post angioplasty with stent (~09/2018) S/P insertion of iliac artery stent (~02/2019) S/P cardiac cath (~12/2020) History of cholecystectomy (~02/2009) History of Problems with Anesthesia: No Social History Social History Household Members: None Housing: House Are you a primary residential care officer to a significant other at home: No Do you presently have visiting nurse or other home services: No Alcohol intake: never Comment: aware of trip hazard Patient Tobacco Use Status: Former Tobacco user Tobacco use type: Cigarette e-Cigarette/Vaping Use: Never Used Second Hand Smoke Exposure: No Use of substances other than those prescribed or required for medical reasons: No Have you been hit, kicked, punched, or otherwise hurt by someone within the past year? If so, by whom?: No Are you DNR?: No Advance Directives: Yes Advance Directives Information Provided: No Advance Directives on File: Yes Advance Directives Date on File: 12/27/20 Recently lost weight without trying: Yes How much weight loss: 2-13 pounds Eating poorly because of decreased appetite: No Nutrition screen score: 3 Nutrition Risks: Anorexia Patient : No : No Poor oral hygiene: Yes (upper full denture, missing teeth on the bottom) service: No Current occupational status: retired Cognitive needs: Yes (cane) Hearing needs: No Vision needs: Yes (reading glasses) Meds Allergies Allergy/AdvReac Type Severity Reaction Status Date / Time codeine [Codeine] AdvReac Mild vomiting Verified 03/25/24 10:05 Active Medications: Current Medications Albuterol Sulfate (Albuterol Sulfate (0.083%) 2.5 Mg/3 Ml Vial.Neb) 2.5 mg INHALE ONCE PRN PRN Reason: Shortness of Breath/Wheezing Lactated Ringer's (Lr) 1,000 mls @ 50 mls/hr IVCONT .Q20H JOSE Last Admin: 03/30/24 08:42 Dose: 50 mls/hr Home Medications ?Medication ?Instructions ?Recorded ?Confirmed ?Last Taken ?Type paroxetine HCl 40 mg tablet 40 mg PO BEDTIME 10/03/20 03/30/24 03/29/24 History cholecalciferol (vitamin D3) 25 25 mcg PO DAILY 12/20/20 03/15/24 03/25/24 History mcg (1,000 unit) tablet (Vitamin D3) cyanocobalamin (vitamin B-12) 1,000 mcg PO DAILY 12/20/20 03/30/24 03/29/24 History 1,000 mcg tablet (Vitamin B-12) melatonin 10 mg tablet 10 mg PO BEDTIME Insomnia 01/13/23 03/30/24 03/29/24 History levothyroxine 50 mcg tablet 50 mcg PO DAILY 09/02/23 03/30/24 03/29/24 History (Synthroid) metoprolol succinate 25 mg 25 mg PO DAILY 12/25/23 03/15/24 03/30/24 History tablet,extended release 24 hr pantoprazole 40 mg tablet,delayed 40 mg PO DAILY 03/15/24 03/30/24 03/30/24 History release cetirizine 03/30/24 Unknown History Exam Height,Weight and Vital Signs: Height 5 ft 6 in Weight 62.142 kg Last Vital Signs Temp 98.5 F 03/30/24 08:31 Pulse 69 03/30/24 08:31 Resp 16 03/30/24 08:31 BP 146/65 H 03/30/24 08:31 Pulse Ox 99 03/30/24 08:31 O2 Del Method Room Air 03/30/24 08:31 Pertinent Lab Results Pertinent Lab Results: Laboratory Tests 03/15/24 03/15/24 03/15/24 12:53 13:36 13:45 Sodium 139 Potassium 3.7 D Chloride 99 Carbon Dioxide 24 Anion Gap 20 B-Natriuretic Peptide 506 H Nasal Screen MRSA (PCR) NEGATIVE Nasal S. aureus Screen NEGATIVE Nasal MRSA/S.aureus Interp SEE NOTE Blood Type O Negative Antibody Screen NEGATIVE Airway Mallampati Class: II TM Dist: >3cm Neck ROM: Full Partial: Upper and Lower Heart: rrr Lungs: cta Assessment and Plan Assessment Anesthesia Assessment: Anesthesia Plan Discussed and Chart Reviewed Final Anesthetic Review Family History of Problems with Anesthesia: No History of Problems with Anesthesia: No NPO: Yes ASA Class: III Final Preanesthetic Review: No Changes in Pt Med Stat, Meds/Allgs Chart Reviewed and Consent Obtained/Reviewed Patient Risk: Intermediate Procedure Risk: Low Anesthetic Plan Anesthetic Plan: GA Disposition: Standard PACU
--- NOTE | 2024-03-30 12:20 | PM.OP ---
Brief Operative Note Date of Service: 03/30/24 Pre-op diagnosis: Left hip OA Post-op diagnosis: same Procedure: Left KATHERINE Implants: Master Trident2 50 [place] Accolade2 #5 132deg, -/ceramic Surgeon: Adam Powell MD Anesthesia: GETA and local Was an Divisional Human Resources Director used for this Procedure?: Yes Divisional Human Resources Director: Carlos Sharma Estimated blood loss (mL): 200 IV fluids (mL): 1,000 Pathology: other Condition: stable Disposition: PACU
[2024-03-30] MEDS: fentaNYL citrate/PF 100 MCG/2 ML VIAL 50 MCG IVPUSH (13:20)
--- NOTE | 2024-03-30 13:27 | PM.DS ---
DS: Providers Provider Date of Service: 04/02/24 Date of admission: 03/30/24 07:31 Primary care physician: Amina Whitfield MD DS: Summary Hospital Course Hospital Course: The patient underwent a successful left total hip arthroplasty, they were transferred to PACU and then to the floor to recover. During their stay, their vitals were stable, afebrile at 97.9. POD2 h/h dropped to 7.6/24.7 and the patient was transfused with 2 units of pRBCs. Day of d/c her H&H improved to 11.0/33.1. POD 1 they were started on Lovenox for DVT ppx, they also received Physical Therapy services twice a day. Prior to discharge, their dressing was clean dry and intact, and the plan was to be discharged to short term rehab. Time Attestation Total time managing care of this patient today: 30 mintues. Discharge Coordination Time (in mins): 30 Quality: Safe Use of Opioids Does Pt have an Active Cancer Diagnosis on the Problem List?: No Quality: Stroke Does the patient have a stroke diagnosis?: No Physical Exam Vital Signs: Vital Signs: Last Vital Signs Temp 98 F 03/30/24 12:26 Pulse 53 03/30/24 13:10 Resp 13 03/30/24 13:20 BP 103/45 L 03/30/24 13:10 Pulse Ox 98 03/30/24 13:10 O2 Del Method Room Air 03/30/24 13:10 BMI result Body Mass Index 22.1 Const: General: cooperative, healthy appearing and no acute distress Resp: Effort & Inspection: normal respiratory effort and able to speak in complete sentences Cardio: Rate: regular rate Peripheral pulses: Peripheral pulses 2+ throughout GI: Palpation (GI): Soft to palpation Skin: Lesions: no lesions Rashes: no rashes Extrem: Other: left hip dressing is c/d/i. Able to dorsi/plantar flex. Calf is supple and nontender. Sensation intact. Pedal pulse intact. DS: Data Data Completed and Pending Completed studies during hospitalization [Text1]: Procedures Congregation of Cardiac Rhythm, Single (09/13/21) Transfusion of Nonautologous Red Blood Cells into Peripheral Vein, Percutaneous Approach (05/29/23) Pending studies at discharge: Pending at discharge 03/30/24 12:00 Surgical [PTH] Routine Discharge Plan Discharge Anticipated Discharge Date/Time: 03/31/24 15:00 Patient Disposition: Xfer SNF Discharge Diagnosis: s/p LTHA Referrals: Alec Edwards [Outside] - 1 Week (TRANSFER FOR SHORT TERM REHAB) Amina Whitfield MD [Primary Care Provider] - 1 Week Carlos Sharma PA-C [Physician Parks And Recreation Worker] - 04/15/24 11:30 am Discharge Medications: New sennosides [Senna Lax] 8.6 mg Tablet 17.2 mg PO BEDTIME PRN (Reason: Constipation) 30 Days Qty: 60 0RF acetaminophen 325 mg Tablet 650 mg PO Q6H PRN (Reason: Pain, Mild (Pain Scale 1-3)) 30 Days Qty: 240 0RF hydrocodone-acetaminophen 7.5-325 mg Tablet 1 tab PO Q4H PRN (Reason: Pain, Moderate(Pain Scale 4-6)) 7 Days Qty: 42 0RF Rx Instructions: Partial Fill upon patient request. Continued atorvastatin 80 mg tablet 80 mg PO BEDTIME Qty: 90 1RF clopidogrel 75 mg tablet 75 mg PO DAILY Qty: 90 3RF Eliquis 5 mg tablet 5 mg PO BID Qty: 180 3RF fluticasone propion-salmeterol 113-14 mcg/actuation aerosol powdr breath activated 1 inh inhalation Q12H 30 Days Qty: 1 1RF furosemide 20 mg tablet 40 mg PO DAILY 90 Days Qty: 180 0RF Protocol: Hold for SBP< HOLD for SBP < : 90 potassium chloride 20 mEq tablet extended release 20 meq PO DAILY Qty: 90 1RF cyanocobalamin (vitamin B-12) [Vitamin B-12] 1,000 mcg Tablet 1,000 mcg PO DAILY cholecalciferol (vitamin D3) [Vitamin D3] 25 mcg (1,000 unit) Tablet 25 mcg PO DAILY melatonin 10 mg Tablet 10 mg PO BEDTIME pantoprazole 40 mg tablet,delayed release (DR/EC) 40 mg PO DAILY albuterol sulfate 90 mcg/actuation HFA aerosol inhaler 2 puff inhalation Q4H PRN (Reason: wheezing) paroxetine HCl 40 mg tablet 40 mg PO BEDTIME metoprolol succinate 25 mg tablet extended release 24 hr 25 mg PO DAILY levothyroxine [Synthroid] 50 mcg tablet 50 mcg PO DAILY Discontinued acetaminophen [Tylenol Ex Str Arthritis Pain] 500 mg Tablet 500 mg PO DAILY PRN (Reason: Pain) Discharge Orders: Discharge Order (Routine); Ordered 04/02/24 Ordered By: Nakita Marcus Diet: Advance to usual diet Activity on Discharge: Use cane or walker Stand Alone Forms: Patient Portal Discharge page Print Language: Amharic Care Plan Goals: restore fxn to left hip Health Concerns: none Plan of Treatment: Physical Therapy for total hip arthroplasty: posterior precautions, gait training, ROM, strength Limit stair climbing No showering, no tub bath-keep dressing clean, dry and intact No driving x 6 weeks Continue anticoagulant x 6 weeks [place] [facility] [place] [facility] [place] Assessment: stable for d/c
--- NOTE | 2024-03-30 13:28 | W.MHC.F2F ---
Service Date Service Date: 03/30/24 Encounter Date of encounter: 03/31/24 Reasons for Services Signs and symptoms assessed: s/p LTHA Pt. is considered homebound due to recent surgery. Unable to drive, poor balance, poor gait mechanics. Reason for physical therapy: home safety and mobility, therapeutic exercises, restore joint function, gait/transfer training, assess need for DME and ADL training Reason for occupational therapy: home safety and mobility, therapeutic exercises, restore joint function, gait/transfer training, assess need for DME and ADL training Homebound: Leaving the home is medically contraindicated at this time without the asist of a device and/or another person due th the listed conditions above and below. Reason homebound: unsteady gait / fall risk, leg weakness, pain with ambulation, pain with transfers, poor balance / fall risk and unable to drive Certification: Based on the above findings, I certify that this patient is confined to the home and needs intermittent residential care, physical therapy and/or speech therapy, or continues to need occupational therapy. The patient is under my care, and I have initiated the establishment of the plan of care. The patient will be followed by a physician who will periodically review the plan of care. Time Spent With Patient Time: Total time managing care of this patient today ____ minutes.
--- NOTE | 2024-03-30 14:13 | PM.EVENT ---
Event Note Date of Service: 03/30/24 Event Note: PAtient has the following risk factors; ASA score of 3, cardiovascular risk of A. Fib. CAD with stenting. Yesterday's labs revealed an SUSAN. Anticipate the patient will need at least a 2 midnight stay. Time Spent With Patient Time: Total time managing care of this patient today ____ minutes.
--- NOTE | 2024-03-30 15:37 | P.CONHOSP_ITS ---
History of Present Illness Data of Consult Service Date: 03/30/24 Requesting physician: Nakita Marcus Primary Care Provider: MD TALHA Rowland Reason for consult: medical management 68-year-old female with history of multiple sclerosis, COPD, CHF, cardiomyopathy, coronary artery disease, hypertension, PAD, paroxysmal atrial fibrillation anticoagulated with Eliquis, hypothyroidism, renal artery stenosis who is a former smoker admitted to orthopedic surgery with consult placed to hospitalist service for medical management. She underwent left KATHERINE this morning and reports feeling well over all except for 7/10 pain left hip. She is a former smoker who quit in 2018. No etoh or drugs. Vitals are stable, not on o2. Review of Systems 2 Review of Systems: Yes all other systems are reviewed and are negative [facility] Medical History Bilateral cataracts History of cardioversion Myocardial infarction Arthritis Hx of transfusion of packed red blood cells Thyroid disease GERD (gastroesophageal reflux disease) CKD (chronic kidney disease) On anticoagulant therapy History of smoking 30 or more pack years PAF (paroxysmal atrial fibrillation) Atrial fibrillation with rapid ventricular response Left renal artery stenosis Personal history of nicotine dependence Cardiomyopathy Essential hypertension Atherosclerotic cardiovascular disease Asymmetric blood pressures Acute on chronic systolic (congestive) heart failure CHF (congestive heart failure) CAD (coronary artery disease) Multiple sclerosis Pulmonary nodules COPD (chronic obstructive pulmonary disease) Peripheral arterial occlusive disease Family History Father No problems noted. Mother No problems noted. Brother Diabetes Surgical History History of endoscopy History of colonoscopy History of heart artery stent (~2018) Status post angioplasty with stent (~09/2018) S/P insertion of iliac artery stent (~02/2019) S/P cardiac cath (~12/2020) History of cholecystectomy (~02/2009) Social History Household Members: None Housing: House Are you a primary health care social worker to a significant other at home: No Do you presently have visiting nurse or other home services: No Alcohol intake: never Comment: aware of trip hazard Patient Tobacco Use Status: Former Tobacco user Tobacco use type: Cigarette e-Cigarette/Vaping Use: Never Used Second Hand Smoke Exposure: No Use of substances other than those prescribed or required for medical reasons: No Currently Displaying Signs/Symptoms of Drug Intoxication Withdrawal: No Have you been hit, kicked, punched, or otherwise hurt by someone within the past year? If so, by whom?: No Do you feel safe in your current relationship?: No Current Relationship Is there a partner from a previous relationship who is making you feel unsafe now?: No Are you made to feel afraid or neglected: No Are you DNR?: No Advance Directives: Yes Advance Directives Information Provided: No Advance Directives on File: Yes Advance Directives Date on File: 12/27/20 Do you have a plan to hurt others: No Plan Recently lost weight without trying: Yes How much weight loss: 14-23 pounds Eating poorly because of decreased appetite: Yes Nutrition screen score: 5 Nutrition Risks: No Nutritional Risk Patient : No : No Poor oral hygiene: No service: No Current occupational status: retired Cognitive needs: Yes (cane) Hearing needs: No Vision needs: Yes (reading glasses) Meds Allergies Allergy/AdvReac Type Severity Reaction Status Date / Time codeine [Codeine] AdvReac Mild vomiting Verified 03/25/24 10:05 Active Medications: Current Medications Acetaminophen (Acetaminophen 325 Mg Tablet) 650 mg PO Q6H PRN PRN Reason: Pain, Mild (Pain Scale 1-3) Albuterol Sulfate (Albuterol Sulfate 90 Mcg 8 Gm Inhaler) 2 puff INHALE Q4H PRN PRN Reason: shortness of breath or wheezing Celecoxib (Celecoxib 200 Mg Capsule) 200 mg PO BID JOSE Cyanocobalamin (Cyanocobalamin (Vitamin B-12) 1,000 Mcg Tablet) 1,000 mcg PO DAILY JOSE Enoxaparin Sodium (Enoxaparin Sodium 40 Mg/0.4 Ml Syringe) 40 mg SUBCUT Q24H JOSE Furosemide (Furosemide 40 Mg Tablet) 40 mg PO DAILY JOSE; Protocol Hydromorphone HCl (Hydromorphone Hcl 0.5 Mg/0.5 Ml Syringe) 0.25 mg IVPUSH Q4H PRN; Protocol PRN Reason: Pain, Severe (Pain Scale 7-10) Lactated Ringer's (Lr) 1,000 mls @ 100 mls/hr IVCONT .Q10H JOSE Stop: 03/31/24 12:36 Cefazolin Sodium/Dextrose (Ancef) 2 gm in 50 mls @ 100 mls/hr IV POSTOP ONE Stop: 03/30/24 17:29 Levothyroxine Sodium (Levothyroxine Sodium 50 Mcg Tablet) 50 mcg PO DAILY@0600 [facility] Melatonin (Melatonin 3 Mg Tablet) 9 mg PO BEDTIME [facility] Metoprolol Succinate (Metoprolol Succinate Er 25 Mg Tab.Er.24h) 25 mg PO DAILY JOSE; Protocol Non-Formulary Medication (Fluticasone Propion-Salmeterol) 1 inhalation INHALE Q12H [facility] Omeprazole (Omeprazole 20 Mg Capsule.Dr) 20 mg PO DAILY@0630 [facility] Ondansetron HCl (Ondansetron Hcl 4 Mg/2 Ml Vial) 4 mg IVPUSH Q8H PRN PRN Reason: Nausea and Vomiting Oxycodone HCl (Oxycodone Hcl Immed Release 5 Mg Tablet) 5 mg PO Q4H PRN PRN Reason: Pain, Moderate(Pain Scale 4-6) Oxycodone HCl (Oxycodone Hcl Er 10 Mg Tab.Er.12h) 10 mg PO BID [facility] Paroxetine HCl (Paroxetine Hcl 40 Mg Tablet) 40 mg PO BEDTIME [facility] Potassium Chloride (Potassium Chloride Er 20 Meq Tab.Er.Prt) 20 meq PO DAILY [facility] Senna (Sennosides 8.6 Mg Tablet) 17.2 mg PO BEDTIME PRN PRN Reason: Constipation Sodium Chloride (0.9 % Sodium Chloride Flush 3 Ml Syringe) 3 ml IVFLUSH QSHIFT [facility] Home Medications ?Medication ?Instructions ?Recorded ?Confirmed ?Last Taken ?Type paroxetine HCl 40 mg tablet 40 mg PO BEDTIME 10/03/20 03/30/24 03/29/24 History cholecalciferol (vitamin D3) 25 25 mcg PO DAILY 12/20/20 03/15/24 03/25/24 History mcg (1,000 unit) tablet (Vitamin D3) cyanocobalamin (vitamin B-12) 1,000 mcg PO DAILY 12/20/20 03/30/24 03/29/24 History 1,000 mcg tablet (Vitamin B-12) melatonin 10 mg tablet 10 mg PO BEDTIME Insomnia 01/13/23 03/30/24 03/29/24 History levothyroxine 50 mcg tablet 50 mcg PO DAILY 09/02/23 03/30/24 03/29/24 History (Synthroid) metoprolol succinate 25 mg 25 mg PO DAILY 12/25/23 03/15/24 03/30/24 History tablet,extended release 24 hr pantoprazole 40 mg tablet,delayed 40 mg PO DAILY 03/15/24 03/30/24 03/30/24 History release Physical Exam 2 Vital Signs and Narrative: Vital Signs: Last Vital Signs Temp 98.6 F 03/30/24 15:02 Pulse 51 03/30/24 15:02 Resp 12 03/30/24 15:02 BP 100/59 L 03/30/24 15:02 Pulse Ox 100 03/30/24 15:02 O2 Del Method Nasal Cannula 03/30/24 15:02 O2 Flow Rate 2 03/30/24 15:02 BMI result Body Mass Index 22.1 Constitutional - Awake and Alert, No apparent distress Eyes - PERRLA, EOMI Cardiovascular - S1S2, RRR, No edema Respiratory - Normal lung expansion, Normal respiratory effort, No respiratory distress, CTA bilaterally Gastrointestinal - NT / ND; +BS; No rebound or guarding Extremities - no calf tenderness bilaterally, no swelling Skin - Warm/Dry Neurological - Alert & oriented x3 Psychological - Appropriate affect Results Labs 03/15/24 13:45 Imaging Radiologist's Impressions: Impressions Pelvis X-Ray 03/30/24 13:17 IMPRESSION: Left total hip arthroplasty without complication by x-ray. Mild arthrosis of the right hip unchanged. Assessment and Plan (1) Osteoarthritis of left hip: Status: Acute Plan 68-year-old female with history of multiple sclerosis, COPD, CHF, cardiomyopathy, coronary artery disease, hypertension, PAD, paroxysmal atrial fibrillation anticoagulated with Eliquis, hypothyroidism, renal artery stenosis who is a former smoker admitted to orthopedic surgery with consult placed to hospitalist service for medical management. #OA left hip s/p KATHERINE POD0 -plan per ortho surgery #atrial fibrillation -rate controlled -resume eliquis per ortho surgery -continue metoprolol #CHF -euvolemic -contineu lasix #CAD/PAD/HLD/KIM -resume plavix and eliquis at discretion of ortho surgery. No recent cardiac cath/stents placed in last year -continue bb, statin #COPD -no exacerbation -continue maintenance inhalers, albuterol prn #hypothyroidism -levothyroxine Thank you for allowing me to participate in this consult. Signing off at this time. Please do not hesitate to call for further questions or for any acute medical issues
[2024-03-30] MEDS: Lactated Ringers 1,000 ML 100 ML IVCONT (15:40)
[2024-03-30] MEDS: 0.9 % Sodium Chloride Flush 3 ML SYRINGE IVFLUSH ×2 (15:40→21:21)
--- NOTE | 2024-03-30 15:45 | PC.NURSE ---
[employer] reported patient incontinent of large amt of urine at 1500,bladder scanned by KRISHAN Lafleur for 0 ml
[2024-03-30] MEDS: ceFAZolin Sodium/Dextrose,Iso 2 GM/50 ML PIGGYBACK IV (16:51)
[2024-03-30] MEDS: HYDROmorphone HCl 0.5 MG/0.5 ML SYRINGE 0.25 MG IVPUSH ×2 (16:53→23:27)
[2024-03-30] MEDS: Acetaminophen 325 MG TABLET 650 MG PO (18:34)
--- NOTE | 2024-03-30 19:42 | PHA.MEDREC ---
Pharmacy Consult ? Medication Reconciliation Pharmacy has completed the medication reconciliation. Confirmed medications with patient. Patient stated they have stopped the eliquis for surgery and they should be starting it after the surgery.
[2024-03-30] MEDS: Melatonin 3 MG TABLET 9 MG PO (21:20)
[2024-03-30] MEDS: PARoxetine HCL 40 MG TABLET PO (21:20)
[2024-03-31] VITALS (11 sets, daily range): BP systolic 91–122; BP diastolic 47–59; PULSE 57–65; RESP 18; TEMP 36.1–37; O2SAT 97–100
[2024-03-31] MEDS: Lactated Ringers 1,000 ML 100 ML IVCONT ×2 (01:35→11:28)
[2024-03-31] MEDS: HYDROmorphone HCl 0.5 MG/0.5 ML SYRINGE 0.25 MG IVPUSH (04:28)
[2024-03-31] MEDS: Levothyroxine Sodium 50 MCG TABLET PO (05:53)
[2024-03-31 06:05] LABS: MANUAL DIFF FLAG NO
[2024-03-31 06:15] LABS: Basophils Percent Auto 0.2 % (0-2); Eosinophils Percent Auto 0.1 % (0-4); Hematocrit 25.3 % (37.0-47.0); Imm Gran Abs Auto 0.06 X10*3/uL (0.00-0.03); Imm Gran Pct Auto 0.5 % (0.0-0.4); Lymphocytes Absolute Auto 0.8 X10*3/uL (1.2-4.9); Lymphocytes Percent Auto 6.2 % (20-40); Mean Corpuscular HGB Conc 31.6 g/dl (31.0-35.0); Mean Corpuscular Volume 75.7 fL (80.0-98.0); Mean Platelet Volume 9.4 fL (9.4-12.3); Monocytes Percent Auto 7.4 % (2-11); Neutrophils Absolute Auto 10.9 x10*3/uL (2.0-8.3); Neutrophils Percent Auto 85.6 % (45-73); Platelet Count 289 X10*3/uL (160-400); Red Blood Count 3.34 X10*6/uL (4.20-5.50); Red Cell Distribution Width 16.1 % (11.0-16.0); White Blood Count 12.8 X10*3/uL (4.8-10.8)
[2024-03-31 06:19] LABS: Anion Gap 14 (12-20); Blood Urea Nitrogen 27 mg/dL (9-16); Calcium 8.8 mg/dL (8.4-10.2); Carbon Dioxide 24 mmol/L (22-29); Chloride 103 mmol/L (96-108); Creatinine Clr Calc Pharmacy 30.8; Estimated Glomerular Filt Rate 32; Glucose Fasting 138 mg/dL (60-99); Potassium 4.3 mmol/L (3.3-5.1); Sodium 137 mmol/L (135-145)
[2024-03-31] MEDS: Omeprazole 20 MG CAPSULE.DR PO (06:27)
[2024-03-31] MEDS: HYDROcodone Bit/Acetam 7.5/325 TABLET 1 TAB PO ×3 (07:33→22:19)
--- NOTE | 2024-03-31 07:54 | PM.PNORT ---
Subjective Subjective Date of Service: 03/31/24 Interval history: POD1 s/p left total hip arthroplasty Patient is resting in bed No overnight events Pain is not controlled. Patient reports left thigh muscle spasm She has not gotten up and out of bed due to pain No additional complaints Physical Exam Vital Signs: Vital Signs: Last Vital Signs Temp 98.6 F 03/31/24 07:40 Pulse 61 03/31/24 07:40 Resp 18 03/31/24 07:40 BP 114/53 L 03/31/24 07:40 Pulse Ox 97 03/31/24 07:40 O2 Del Method Room Air 03/31/24 07:40 O2 Flow Rate 2 03/30/24 15:02 BMI result Body Mass Index 22.1 Const: General: cooperative, healthy appearing and no acute distress Resp: Effort & Inspection: normal respiratory effort and able to speak in complete sentences Cardio: Rate: regular rate Peripheral pulses: Peripheral pulses 2+ throughout GI: Palpation (GI): Soft to palpation Skin: Lesions: no lesions Rashes: no rashes Extrem: Other: Left hip dressing is c/d/i. Able to dorsi/plantar flex. Calf is supple and nontender. Sensation intact. Pedal pulse intact. Procedures Date of Service Date of Service: 03/31/24 Progress Note: A&P Assessment and plan (1) Status post total hip replacement, left: Status: Acute Plan Continue pain mgmnt Begin Lovenox for dvt ppx begin PT/OT for left total hip arthroplasty Dispo planning-Pending PT eval, pain mgmnt Patient has the following risk factors; ASA score of 3, cardiovascular risk of A. Fib. CAD with stenting. 03/29/24 labs revealed an SUSAN - continue to monitor. Anticipate the patient will need at least a 2 midnight stay. Time Spent With Patient Time: Total time managing care of this patient today ____ minutes. Quality Stroke Does the patient have a stroke diagnosis?: No VTE Prior VTE?: No VTE Risk Level:: Medical - moderate - high VTE Device Contraindication: N/A - Device Ordered VTE Drug Contraindication: N/A - Med Ordered
[2024-03-31] MEDS: Potassium Chloride ER 20 MEQ TAB.ER.PRT PO (08:43)
[2024-03-31] MEDS: Cyanocobalamin (Vitamin B-12) 1,000 MCG TABLET 1000 MCG PO (08:44)
[2024-03-31] MEDS: oxyCODONE HCl ER 10 MG TAB.ER.12H PO ×2 (08:44→20:53)
[2024-03-31] MEDS: Metoprolol Succinate ER 25 MG TAB.ER.24H PO (08:45)
[2024-03-31] MEDS: Furosemide 40 MG TABLET PO (08:46)
[2024-03-31] MEDS: ondansetron HCL 4 MG/2 ML VIAL IVPUSH (09:02)
[2024-03-31] MEDS: Enoxaparin Sodium 40 MG/0.4 ML SYRINGE SUBCUT (10:21)
--- NOTE | 2024-03-31 12:39 | MHC.CM.PN ---
IMM DELIVERED PT LIVES ALONE. USES [facility] FOR [facility] MOBILITY. + HCP/MOLST ON FILE. PCP DR. STOLL DP: P.T. REC STR, PT'S FIRST CHOICE [facility]. REFERRALS PLACED. PT WILL TRANSPORT VIA BLS. CM WILL CONTINUE TO FOLLOW FOR ANY CHANGE TO DC PLAN.
[2024-03-31] MEDS: 0.9 % Sodium Chloride 1,000 ML 999 ML IV (12:44)
--- NOTE | 2024-03-31 14:14 | PM.EVENT ---
Event Note Date of Service: 03/31/24 Event Note: Pt with borderline hypotension with bp 91/47 admitted to orthopedic surgery s/p KATHERINE POD1. She received her home doses of toprol 25mg and furosemide 40mg this morning. She has received iv dilaudid, oxycodone 10, and hydrocodone 5mg this morning. She was bolused with 1L IVF with improvement in bp 102/51. Would limit the use of narcotics if possible. H/H today 8.0/25.3% ( 02/26 was 11.2/36.4%). Check bp q4h. Will repeat H.H now with type and screen. Continue metoprolol and lasix am, unless remains borderline hypotensive. Will continue following Time Spent With Patient Time: Total time managing care of this patient today ____ minutes.
[2024-03-31] MEDS: Acetaminophen 325 MG TABLET 650 MG PO (14:15)
--- NOTE | 2024-03-31 15:00 | HO.POSTANES ---
Post Anesthesia Evaluation Post Anesthesia Evaluation Date of Service: 03/31/24 Vital Signs: Vital Signs Temp Pulse Resp BP Pulse Ox O2 Del Method 03/31/24 14:10 64 102/51 L 03/31/24 12:00 96.9 F 65 18 91/47 L 99 Room Air 03/31/24 11:26 61 95/49 L 03/31/24 08:46 105/51 L 03/31/24 08:45 61 105/51 L 03/31/24 07:40 98.6 F 61 18 114/53 L 97 Room Air 03/31/24 03:28 97.4 F 57 18 122/59 L 98 Room Air Anesthesia: General Endotracheal-GETA Mental Status: Awake Pain Control: Satisfactory Nausea/Vomiting: None Hydration: Adequate Anesthesia-Related Issues: No Anes. Related Issues
[2024-03-31 16:17] LABS: Basophils Percent Auto 0.4 % (0-2); Eosinophils Percent Auto 0.3 % (0-4); Hematocrit 26.2 % (37.0-47.0); Hemoglobin 8.1 g/dl (12.0-16.0); Lymphocytes Absolute Auto 0.7 X10*3/uL (1.2-4.9); Lymphocytes Percent Auto 6.8 % (20-40); MANUAL DIFF FLAG NO; Mean Corpuscular HGB Conc 30.9 g/dl (31.0-35.0); Mean Corpuscular Hemoglobin 23.8 pg (27.0-33.0); Mean Corpuscular Volume 77.1 fL (80.0-98.0); Mean Platelet Volume 9.1 fL (9.4-12.3); Monocytes Absolute Auto 0.9 X10*3/uL (0.1-1.2); Monocytes Percent Auto 8.1 % (2-11); Neutrophils Absolute Auto 8.8 x10*3/uL (2.0-8.3); Neutrophils Percent Auto 83.4 % (45-73); Platelet Count 261 X10*3/uL (160-400); Red Cell Distribution Width 16.2 % (11.0-16.0); White Blood Count 10.5 X10*3/uL (4.8-10.8)
--- NOTE | 2024-03-31 17:06 | PC.NURSE ---
BP remaining soft throughout the day. (see vital signs). Pt denies dizziness or lightheadedness. CBC and type and screen drawn this afternoon. Will monitor
[2024-03-31] MEDS: Melatonin 3 MG TABLET 9 MG PO (20:53)
[2024-03-31] MEDS: PARoxetine HCL 40 MG TABLET PO (20:53)
[2024-04-01] VITALS (14 sets, daily range): BP systolic 98–141; BP diastolic 53–84; PULSE 57–70; RESP 16–18; TEMP 36.1–37.1; O2SAT 94–98
[2024-04-01] MEDS: Levothyroxine Sodium 50 MCG TABLET PO (06:02)
[2024-04-01 06:19] LABS: MANUAL DIFF FLAG NO
[2024-04-01 06:23] LABS: Basophils Percent Auto 0.4 % (0-2); Eosinophils Absolute Auto 0.1 X10*3/uL (0.0-0.4); Eosinophils Percent Auto 0.5 % (0-4); Hematocrit 24.7 % (37.0-47.0); Hemoglobin 7.6 g/dl (12.0-16.0); Imm Gran Abs Auto 0.05 X10*3/uL (0.00-0.03); Imm Gran Pct Auto 0.5 % (0.0-0.4); Lymphocytes Absolute Auto 0.8 X10*3/uL (1.2-4.9); Lymphocytes Percent Auto 8.5 % (20-40); Mean Corpuscular HGB Conc 30.8 g/dl (31.0-35.0); Mean Corpuscular Hemoglobin 23.5 pg (27.0-33.0); Mean Corpuscular Volume 76.5 fL (80.0-98.0); Mean Platelet Volume 9.3 fL (9.4-12.3); Monocytes Absolute Auto 0.7 X10*3/uL (0.1-1.2); Monocytes Percent Auto 7.6 % (2-11); Neutrophils Absolute Auto 7.6 x10*3/uL (2.0-8.3); Neutrophils Percent Auto 82.5 % (45-73); Platelet Count 274 X10*3/uL (160-400); Red Blood Count 3.23 X10*6/uL (4.20-5.50); Red Cell Distribution Width 16.4 % (11.0-16.0); White Blood Count 9.2 X10*3/uL (4.8-10.8)
[2024-04-01] MEDS: Omeprazole 20 MG CAPSULE.DR PO (06:33)
[2024-04-01 06:35] LABS: Anion Gap 12 (12-20); Blood Urea Nitrogen 19 mg/dL (9-16); Calcium 8.7 mg/dL (8.4-10.2); Carbon Dioxide 27 mmol/L (22-29); Chloride 105 mmol/L (96-108); Creatinine Clr Calc Pharmacy 37.7; Estimated Glomerular Filt Rate 40; Glucose Fasting 95 mg/dL (60-99); Potassium 4.2 mmol/L (3.3-5.1); Sodium 140 mmol/L (135-145)
[2024-04-01] MEDS: Cyanocobalamin (Vitamin B-12) 1,000 MCG TABLET 1000 MCG PO (08:31)
[2024-04-01] MEDS: Potassium Chloride ER 20 MEQ TAB.ER.PRT PO (08:31)
[2024-04-01] MEDS: HYDROcodone Bit/Acetam 7.5/325 TABLET 1 TAB PO ×2 (08:31→20:19)
[2024-04-01] MEDS: oxyCODONE HCl ER 10 MG TAB.ER.12H PO ×2 (08:32→20:15)
[2024-04-01] MEDS: 0.9 % Sodium Chloride Flush 3 ML SYRINGE IVFLUSH ×2 (08:32→21:43)
--- NOTE | 2024-04-01 09:19 | P.PNOP_ITS ---
Subjective Subjective Date of Service: 04/01/24 Interval history: POD2 s/p left total hip arthroplasty Patient is resting in bed No overnight events Pain is not controlled. No additional complaints Physical Exam Vital Signs: Vital Signs: Last Vital Signs Temp 98 F 04/01/24 08:04 Pulse 67 04/01/24 08:04 Resp 18 04/01/24 08:04 BP 100/55 L 04/01/24 08:04 Pulse Ox 96 04/01/24 08:04 O2 Del Method Room Air 04/01/24 08:04 O2 Flow Rate 2 03/30/24 15:02 BMI result Body Mass Index 22.1 Const: General: cooperative, healthy appearing and no acute distress Resp: Effort & Inspection: normal respiratory effort and able to speak in complete sentences Cardio: Rate: regular rate Peripheral pulses: Peripheral pulses 2+ throughout GI: Palpation (GI): Soft to palpation Skin: Lesions: no lesions Rashes: no rashes Extrem: Other: Left hip dressing is c/d/i. Able to dorsi/plantar flex. Calf is supple and nontender. Sensation intact. Pedal pulse intact. Procedures Date of Service Date of Service: 04/01/24 Progress Note: A&P Assessment and plan (1) Status post total hip replacement, left: Status: Acute Plan Continue pain mgmnt Lovenox for dvt ppx begin PT/OT for left total hip arthroplasty 2 units PRBCs with lasix Dispo planning-Rehab, pain mgmnt Patient has the following risk factors; ASA score of 3, cardiovascular risk of A . Fib. CAD with stenting. 03/29/24 labs revealed an SUSAN - continue to monitor. Anticipate the patient will need at least a 2 midnight stay. Time Spent With Patient Time: Total time managing care of this patient today ____ minutes. Quality Stroke Does the patient have a stroke diagnosis?: No VTE Prior VTE?: No VTE Risk Level:: Medical - moderate - high VTE Device Contraindication: N/A - Device Ordered VTE Drug Contraindication: N/A - Med Ordered
[2024-04-01] MEDS: ondansetron HCL 4 MG/2 ML VIAL IVPUSH (09:40)
[2024-04-01] MEDS: HYDROmorphone HCl 0.5 MG/0.5 ML SYRINGE 0.25 MG IVPUSH (10:26)
[2024-04-01] MEDS: Enoxaparin Sodium 40 MG/0.4 ML SYRINGE SUBCUT (11:03)
--- NOTE | 2024-04-01 12:27 | P.PNIM_ITS ---
Subjective Subjective Date of Service: 04/01/24 Interval History: f/u on hypotension BP is within normal range now, low BP likely from pain meds Physical Exam 2 Vital Signs: Vital Signs: Last Vital Signs Temp 98.7 F 04/01/24 10:59 Pulse 58 04/01/24 10:59 Resp 16 04/01/24 10:59 BP 102/53 L 04/01/24 10:59 Pulse Ox 97 04/01/24 10:19 O2 Del Method Room Air 04/01/24 10:19 O2 Flow Rate 2 03/30/24 15:02 BMI result Body Mass Index 22.1 Objective Data Active Medications Acetaminophen (Acetaminophen 325 Mg Tablet) 650 mg PO Q6H PRN PRN Reason: Pain, Mild (Pain Scale 1-3) Last Admin: 03/31/24 14:15 Dose: 650 mg Documented By: MARIANN Hydrocodone Bitart/Acetaminophen (Hydrocodone Bit/Acetam 7.5/325 Tablet) 1 tab PO Q4H PRN PRN Reason: Pain, Moderate(Pain Scale 4-6) Last Admin: 04/01/24 08:31 Dose: 1 tab Documented By: TYE Albuterol Sulfate (Albuterol Sulfate 90 Mcg 8 Gm Inhaler) 2 puff INHALE Q4H PRN PRN Reason: shortness of breath or wheezing Cyanocobalamin (Cyanocobalamin (Vitamin B-12) 1,000 Mcg Tablet) 1,000 mcg PO DAILY [facility] Last Admin: 04/01/24 08:31 Dose: 1,000 mcg Documented By: TYE Enoxaparin Sodium (Enoxaparin Sodium 40 Mg/0.4 Ml Syringe) 40 mg SUBCUT Q24H [facility] Last Admin: 04/01/24 11:03 Dose: 40 mg Documented By: TYE Furosemide (Furosemide 40 Mg Tablet) 40 mg PO DAILY [facility]; Protocol Last Admin: 03/31/24 08:46 Dose: 40 mg Documented By: MARLENE Hydromorphone HCl (Hydromorphone Hcl 0.5 Mg/0.5 Ml Syringe) 0.25 mg IVPUSH Q4H PRN; Protocol PRN Reason: Pain, Severe (Pain Scale 7-10) Last Admin: 04/01/24 10:26 Dose: 0.25 mg Documented By: TYE Levothyroxine Sodium (Levothyroxine Sodium 50 Mcg Tablet) 50 mcg PO DAILY@0600 [facility] Last Admin: 04/01/24 06:02 Dose: 50 mcg Documented By: QIANA Melatonin (Melatonin 3 Mg Tablet) 9 mg PO BEDTIME [facility] Last Admin: 03/31/24 20:53 Dose: 9 mg Documented By: QIANA Metoprolol Succinate (Metoprolol Succinate Er 25 Mg Tab.Er.24h) 25 mg PO DAILY [facility]; Protocol Last Admin: 03/31/24 08:45 Dose: 25 mg Documented By: MARLENE Non-Formulary Medication (Fluticasone Propion-Salmeterol) 1 inhalation INHALE Q12H [facility] Omeprazole (Omeprazole 20 Mg Capsule.Dr) 20 mg PO DAILY@30 [facility] Last Admin: 04/01/24 06:33 Dose: 20 mg Documented By: QIANA Ondansetron HCl (Ondansetron Hcl 4 Mg/2 Ml Vial) 4 mg IVPUSH Q8H PRN PRN Reason: Nausea and Vomiting Last Admin: 04/01/24 09:40 Dose: 4 mg Documented By: TYE Oxycodone HCl (Oxycodone Hcl Er 10 Mg Tab.Er.12h) 10 mg PO BID [facility] Last Admin: 04/01/24 08:32 Dose: 10 mg Documented By: TYE Paroxetine HCl (Paroxetine Hcl 40 Mg Tablet) 40 mg PO BEDTIME [facility] Last Admin: 03/31/24 20:53 Dose: 40 mg Documented By: QIANA Potassium Chloride (Potassium Chloride Er 20 Meq Tab.Er.Prt) 20 meq PO DAILY [facility] Last Admin: 04/01/24 08:31 Dose: 20 meq Documented By: TYE Senna (Sennosides 8.6 Mg Tablet) 17.2 mg PO BEDTIME PRN PRN Reason: Constipation Sodium Chloride (0.9 % Sodium Chloride Flush 3 Ml Syringe) 3 ml IVFLUSH QSHIFT [facility] Last Admin: 04/01/24 08:32 Dose: 3 ml Documented By: TYE Labs 04/01/24 05:43 04/01/24 05:43 Labs: Laboratory Results - last 24 hr 03/31/24 04/01/24 16:07 05:43 MCV 77.1 L 76.5 L MCH 23.8 L 23.5 L MCHC 30.9 L 30.8 L RDW 16.2 H 16.4 H Plt Count 261 274 MPV 9.1 L 9.3 L Immature Gran % (Auto) 1.0 H 0.5 H Neut % (Auto) 83.4 H 82.5 H Lymph % (Auto) 6.8 L 8.5 L Runnels % (Auto) 8.1 7.6 Eos % (Auto) 0.3 0.5 Baso % (Auto) 0.4 0.4 Lymph # (Auto) 0.7 L 0.8 L [place] # (Auto) 0.9 0.7 Eos # (Auto) 0.0 0.1 Baso # (Auto) 0.0 0.0 Abs Immat Gran (auto) 0.10 H 0.05 H Absolute Neuts (auto) 8.8 H 7.6 Absolute Nucleated RBC 0.000 0.000 Nucleated RBC % (auto) 0.0 0.0 Anion Gap 12 Estim Creat Clear Calc 37.7 Estimated GFR 40 Fasting Glucose 95 Calcium 8.7 Hold Yellow Top See Note Blood Type O Negative Antibody Screen NEGATIVE Crossmatch See Detail Assessment and Plan (1) Status post total hip replacement, left: Status: Acute Plan 68-year-old female with history of multiple sclerosis, COPD, CHF, cardiomyopathy, coronary artery disease, hypertension, PAD, paroxysmal atrial fibrillation anticoagulated with Eliquis, hypothyroidism, renal artery stenosis who is a former smoker admitted to orthopedic surgery with consult placed to hospitalist service for medical management. #OA left hip s/p KATHERINE POD2 -plan per ortho surgery #atrial fibrillation -rate controlled -metoprolol and eliquis starting tomorrow am #hypotension likely related to pain meds hold bp meds today #CHF -euvolemic -continue lasix, hold if bp is low #CAD/PAD/HLD/KIM -resume plavix and eliquis at discretion of ortho surgery. No recent cardiac cath/stents placed in last year -continue bb, statin #COPD -no exacerbation -continue maintenance inhalers, albuterol prn #hypothyroidism -levothyroxine Thank you for allowing me to participate in this consult. Signing off at this time. Please do not hesitate to call for further questions or for any acute medical issues Quality Stroke Does the patient have a stroke diagnosis?: No VTE Prior VTE?: No VTE Risk Level:: Medical - moderate - high VTE Device Contraindication: N/A - Device Ordered VTE Drug Contraindication: N/A - Med Ordered
[2024-04-01] MEDS: Furosemide 20 MG/2 ML VIAL IVPUSH (15:03)
--- NOTE | 2024-04-01 16:10 | MHC.CM.PN ---
PT HAS CHOSEN [facility] HER FIRST CHOICE FOR REHAB. [facility] OFFERED A BED. PT WILL DC 04/02 AT 11 AM VIA BLS TRANSPORT [facility]IA [facility]. CM WILL CONTINUE TO FOLLOW FOR ANY CHANGE TO PLAN.
[2024-04-01] MEDS: PARoxetine HCL 40 MG TABLET PO (20:16)
[2024-04-01] MEDS: Melatonin 3 MG TABLET 9 MG PO (20:16)
[2024-04-02 03:06] VITALS: BP 122/58; PULSE 69; RESP 18; TEMP 36.6; O2SAT 96
[2024-04-02] MEDS: HYDROcodone Bit/Acetam 7.5/325 TABLET 1 TAB PO (03:23)
[2024-04-02 04:23] VITALS: RESP 18
[2024-04-02 05:20] LABS: MANUAL DIFF FLAG NO
[2024-04-02 05:22] LABS: Basophils Absolute Auto 0.1 X10*3/uL (0.0-0.2); Basophils Percent Auto 0.6 % (0-2); Eosinophils Absolute Auto 0.2 X10*3/uL (0.0-0.4); Eosinophils Percent Auto 1.5 % (0-4); Hematocrit 33.1 % (37.0-47.0); Imm Gran Abs Auto 0.12 X10*3/uL (0.00-0.03); Imm Gran Pct Auto 1.1 % (0.0-0.4); Lymphocytes Absolute Auto 0.9 X10*3/uL (1.2-4.9); Lymphocytes Percent Auto 8.6 % (20-40); Mean Corpuscular HGB Conc 33.2 g/dl (31.0-35.0); Mean Corpuscular Hemoglobin 26.2 pg (27.0-33.0); Mean Corpuscular Volume 78.8 fL (80.0-98.0); Monocytes Absolute Auto 0.6 X10*3/uL (0.1-1.2); Monocytes Percent Auto 5.8 % (2-11); Neutrophils Absolute Auto 8.9 x10*3/uL (2.0-8.3); Neutrophils Percent Auto 82.4 % (45-73); Platelet Count 275 X10*3/uL (160-400); Red Cell Distribution Width 17.4 % (11.0-16.0); White Blood Count 10.8 X10*3/uL (4.8-10.8)
[2024-04-02 05:40] LABS: Anion Gap 14 (12-20); Blood Urea Nitrogen 19 mg/dL (9-16); Calcium 9.1 mg/dL (8.4-10.2); Carbon Dioxide 28 mmol/L (22-29); Chloride 100 mmol/L (96-108); Creatinine Clr Calc Pharmacy 43.4; Estimated Glomerular Filt Rate 48; Glucose Fasting 101 mg/dL (60-99); Potassium 3.8 mmol/L (3.3-5.1); Sodium 138 mmol/L (135-145)
[2024-04-02] MEDS: Levothyroxine Sodium 50 MCG TABLET PO (06:11)
[2024-04-02] MEDS: Omeprazole 20 MG CAPSULE.DR PO (07:03)
[2024-04-02 08:00] VITALS: BP 139/64; PULSE 69; RESP 18; TEMP 36.6; O2SAT 93
[2024-04-02] MEDS: ondansetron HCL 4 MG/2 ML VIAL IVPUSH (08:26)
[2024-04-02] MEDS: 0.9 % Sodium Chloride Flush 3 ML SYRINGE IVFLUSH (08:27)
--- NOTE | 2024-04-02 08:36 | P.PNIM_ITS ---
Subjective Subjective Date of Service: 04/02/24 Interval History: f/u on hypotension BP is within normal range now c/o stomach upset and constipation for 4 days Physical Exam 2 Vital Signs: Vital Signs: Last Vital Signs Temp 97.8 F 04/02/24 08:00 Pulse 69 04/02/24 08:00 Resp 18 04/02/24 08:00 BP 139/64 04/02/24 08:00 Pulse Ox 93 04/02/24 08:00 O2 Del Method Room Air 04/02/24 08:00 O2 Flow Rate 2 03/30/24 15:02 BMI result Body Mass Index 22.1 General: AO X 3, no acute distress Resp: CTA bilateral CVS: S1,S2,RRR GI: +BS, NT, no distention Skin: No rash, incision d/c/i Neuro: motor grossly intact Psych: appropriate affect Objective Data Active Medications Acetaminophen (Acetaminophen 325 Mg Tablet) 650 mg PO Q6H PRN PRN Reason: Pain, Mild (Pain Scale 1-3) Last Admin: 03/31/24 14:15 Dose: 650 mg Documented By: MARIANN Hydrocodone Bitart/Acetaminophen (Hydrocodone Bit/Acetam 7.5/325 Tablet) 1 tab PO Q4H PRN PRN Reason: Pain, Moderate(Pain Scale 4-6) Last Admin: 04/02/24 03:23 Dose: 1 tab Documented By: ARIAN Albuterol Sulfate (Albuterol Sulfate 90 Mcg 8 Gm Inhaler) 2 puff INHALE Q4H PRN PRN Reason: shortness of breath or wheezing Apixaban (Apixaban 5 Mg Tablet) 5 mg PO BID [facility] Cyanocobalamin (Cyanocobalamin (Vitamin B-12) 1,000 Mcg Tablet) 1,000 mcg PO DAILY [facility] Last Admin: 04/01/24 08:31 Dose: 1,000 mcg Documented By: TYE Docusate Sodium (Docusate Sodium 100 Mg Capsule) 100 mg PO BID [facility] Furosemide (Furosemide 40 Mg Tablet) 40 mg PO DAILY [facility]; Protocol Last Admin: 04/01/24 15:10 Dose: Not Given Documented By: TYE Non-Admin Reason: Decreased Blood Pressure Hydromorphone HCl (Hydromorphone Hcl 0.5 Mg/0.5 Ml Syringe) 0.25 mg IVPUSH Q4H PRN; Protocol PRN Reason: Pain, Severe (Pain Scale 7-10) Last Admin: 04/01/24 10:26 Dose: 0.25 mg Documented By: TYE Levothyroxine Sodium (Levothyroxine Sodium 50 Mcg Tablet) 50 mcg PO DAILY@0600 [facility] Last Admin: 04/02/24 06:11 Dose: 50 mcg Documented By: ARIAN Magnesium Hydroxide (Milk Of Magnesia 30 Ml Oral.Susp) 30 ml PO DAILY PRN PRN Reason: Constipation Melatonin (Melatonin 3 Mg Tablet) 9 mg PO BEDTIME [facility] Last Admin: 04/01/24 20:16 Dose: 9 mg Documented By: ANGIE Metoprolol Succinate (Metoprolol Succinate Er 25 Mg Tab.Er.24h) 25 mg PO DAILY [facility]; Protocol Last Admin: 04/01/24 15:10 Dose: Not Given Documented By: TYE Non-Admin Reason: Decreased Heart Rate Non-Formulary Medication (Fluticasone Propion-Salmeterol) 1 inhalation INHALE Q12H [facility] Omeprazole (Omeprazole 20 Mg Capsule.Dr) 20 mg PO DAILY@0630 [facility] Last Admin: 04/02/24 07:03 Dose: 20 mg Documented By: ARIAN Ondansetron HCl (Ondansetron Hcl 4 Mg/2 Ml Vial) 4 mg IVPUSH Q8H PRN PRN Reason: Nausea and Vomiting Last Admin: 04/02/24 08:26 Dose: 4 mg Documented By: RICKEY Oxycodone HCl (Oxycodone Hcl Er 10 Mg Tab.Er.12h) 10 mg PO BID [facility] Last Admin: 04/01/24 20:15 Dose: 10 mg Documented By: ANGIE Paroxetine HCl (Paroxetine Hcl 40 Mg Tablet) 40 mg PO BEDTIME [facility] Last Admin: 04/01/24 20:16 Dose: 40 mg Documented By: ANGIE Polyethylene Glycol (Polyethylene Glycol 3350 17 Gm Powd.Pack) 17 gm PO DAILY PRN PRN Reason: Constipation Potassium Chloride (Potassium Chloride Er 20 Meq Tab.Er.Prt) 20 meq PO DAILY [facility] Last Admin: 04/01/24 08:31 Dose: 20 meq Documented By: TYE Senna (Sennosides 8.6 Mg Tablet) 17.2 mg PO BEDTIME PRN PRN Reason: Constipation Sodium Chloride (0.9 % Sodium Chloride Flush 3 Ml Syringe) 3 ml IVFLUSH QSHIFT [facility] Last Admin: 04/02/24 08:27 Dose: 3 ml Documented By: RICKEY Labs 04/02/24 05:06 04/02/24 05:06 Labs: Laboratory Results - last 24 hr 03/31/24 04/02/24 16:07 05:06 MCV 78.8 L MCH 26.2 L MCHC 33.2 RDW 17.4 H Plt Count 275 MPV 9.0 L Immature Gran % (Auto) 1.1 H Neut % (Auto) 82.4 H Lymph % (Auto) 8.6 L [place] % (Auto) 5.8 Eos % (Auto) 1.5 Baso % (Auto) 0.6 Lymph # (Auto) 0.9 L [place] # (Auto) 0.6 Eos # (Auto) 0.2 Baso # (Auto) 0.1 Abs Immat Gran (auto) 0.12 H Absolute Neuts (auto) 8.9 H Absolute Nucleated RBC 0.000 Nucleated RBC % (auto) 0.0 Anion Gap 14 Estim Creat Clear Calc 43.4 Estimated GFR 48 Fasting Glucose 101 H Calcium 9.1 Blood Type O Negative Antibody Screen NEGATIVE Crossmatch See Detail Assessment and Plan (1) Status post total hip replacement, left: Status: Acute Plan 68-year-old female with history of multiple sclerosis, COPD, CHF, cardiomyopathy, coronary artery disease, hypertension, PAD, paroxysmal atrial fibrillation anticoagulated with Eliquis, hypothyroidism, renal artery stenosis who is a former smoker admitted to orthopedic surgery with consult placed to hospitalist service for medical management. #OA left hip s/p KATHERINE POD2 -plan per ortho surgery #atrial fibrillation -rate controlled -metoprolol and restart eliquis #hypotension likely related to pain meds hold bp meds today #CHF -euvolemic -continue lasix, hold if bp is low #CAD/PAD/HLD/KIM -resume plavix and eliquis at discretion of ortho surgery. No recent cardiac cath/stents placed in last year -continue bb, statin #COPD -no exacerbation -continue maintenance inhalers, albuterol prn #hypothyroidism -levothyroxine #constipation/stomach upset--colace, MoM, Miralax from mediacal standpoint ok to dc Quality Stroke Does the patient have a stroke diagnosis?: No VTE Prior VTE?: No VTE Risk Level:: Medical - moderate - high VTE Device Contraindication: N/A - Device Ordered VTE Drug Contraindication: N/A - Med Ordered
--- NOTE | 2024-04-02 08:37 | MHC.CM.PN ---
DP: PT HAS BEEN MEDICALLY CLEARED FOR DC TO STR AT [facility]. RN AWARE. CENTER AWARE. S TRANSPORT BOOKED FOR 11 AM VIA [facility]
[2024-04-02] MEDS: Docusate Sodium 100 MG CAPSULE PO (08:45)
[2024-04-02] MEDS: polyethylene glycoL 3350 17 GM POWD.PACK PO (08:45)
[2024-04-02 08:46] VITALS: BP 139/64; PULSE 69
[2024-04-02] MEDS: oxyCODONE HCl ER 10 MG TAB.ER.12H PO (08:46)
[2024-04-02] MEDS: Cyanocobalamin (Vitamin B-12) 1,000 MCG TABLET 1000 MCG PO (08:46)
[2024-04-02] MEDS: Metoprolol Succinate ER 25 MG TAB.ER.24H PO (08:46)
[2024-04-02] MEDS: Apixaban 5 MG TABLET PO (08:46)
[2024-04-02 08:47] VITALS: BP 139/64
[2024-04-02] MEDS: Potassium Chloride ER 20 MEQ TAB.ER.PRT PO (08:47)
[2024-04-02] MEDS: Furosemide 40 MG TABLET PO (08:47)
[2024-04-02 10:39] VITALS: BP 139/64
--- NOTE | 2024-04-05 09:22 | W.PM.OPN ---
Operative Note Operative Note Date of Service: 03/30/24 Narrative: Date of Service: 03/30/24 Pre-op diagnosis: Left hip OA Post-op diagnosis: same Procedure: Left KATHERINE Implants: [place] Trident2 50 Master Accolade2 #5 132deg, -/ceramic Surgeon: Adam Powell MD Anesthesia: GETA and local Was an Email Specialist used for this Procedure?: Yes Email Specialist: Carlos Sharma Estimated blood loss (mL): 200 IV fluids (mL): 1,000 Pathology: other Condition: stable Disposition: PACU Procedure in detail: Patient was brought into the operating room and placed in the right lateral decubitus position. All bony prominences were well padded and the limb was prepped and draped in standard sterile fashion. A time-out was called to identify proper site procedure proper surgeon IV antibiotics and 1 g of transaxemic acid were administered. I began by making a curvilinear incision over the posterolateral aspect of the greater trochanter. Dissection was taken down to the tensor fascia which was incised in line with the incision and a Charnley retractor was placed. Cautery was used to maintain hemostasis. The hip was internally rotated and the external rotators were identified. The vessels were cauterized and a full-thickness capsular/external rotator layer was developed starting just proximal to the piriformis. This layer was tagged and a dull Hohmann retractor was placed underneath the neck in the hip was dislocated. A neck cut was made 1 cm proximal to the lesser trochanter and the head and neck were removed and measured 46mm on the back table. The head was deformed and eburnated. I then removed the labrum and cauterized the fovea. I started with a 42 reamer and medialized to the inner table. I sequentially reamed up to a size 50 and impacted a 50 mm cup at 45 degrees of inclination and 25 degrees of version. I then placed a 10 deg posterior lipped liner and turned my attention to the femur. I identified the piriformis insertion and used this as a starting point for my henrietta cutter. The medius tendon was protected with a Hibs retractor. A Charnley awl was inserted in the canal and a curved curette used to remove the lateral bone. I irrigated copiously. I then sequentially broached in the patient's natural version to a size 5 and placed my trial implants. I used a #5/132/-4 based on my pre-operative template. Using a trail head I took the hip through range of motion. I was satisfied with the stability. I removed all instrumentation and copiously irrigated. I placed my final femoral implant and again took the hip through range of motion and was satisfied with the stability and length. The final 32/-4 implant was impacted in place and the hip reduced. I then irrigated copiously and placed 1 g of local transaxemic acid. I performed a capsular closure with 2.0 fiberwire, [place]'s fascia with 0 Vicryl, subcuticular with 2-0 Vicryl and the skin with oumou. Patient was placed into a sterile dressing. Patient was extubated brought to the recovery room in stable condition. There were no known complications.
== END 2024-04-02 11:24 | disposition skilled nursing facility (03) | DRG 470 ==
LOC: HO.SSSA 13:27 → HO.S3 14:09
PROVIDERS: Nurse Practitioner; Orthopaedic Surgery; Physician Assistant; Admitting Provider Physician Assistant; PCP Internal Medicine; Visit Provider Physician Assistant
PROC: 0SRB03A Replacement of Left Hip Joint with Ceramic Synthetic Substitute, Uncemented, Open Approach (ICD-10-PCS; CPT 27130; principal; 2024-03-30 09:20)
DX: M16.12 Unilateral primary osteoarthritis, left hip (principal); N17.9 Acute kidney failure, unspecified; I42.9 Cardiomyopathy, unspecified; J44.9 Chronic obstructive pulmonary disease, unspecified; I48.0 Paroxysmal atrial fibrillation; I95.2 Hypotension due to drugs; T39.95XA Adverse effect of unspecified nonopioid analgesic, antipyretic and antirheumatic, initial encounter; I50.9 Heart failure, unspecified; I70.1 Atherosclerosis of renal artery; I25.10 Atherosclerotic heart disease of native coronary artery without angina pectoris; G35 Multiple sclerosis; E03.9 Hypothyroidism, unspecified; Z87.891 Personal history of nicotine dependence; Z79.02 Long term (current) use of antithrombotics/antiplatelets; Z79.51 Long term (current) use of inhaled steroids; Z79.890 Hormone replacement therapy; Z79.899 Other long term (current) drug therapy
CPT/HCPCS: 36415; 72170; 80048; 80051; 80053; 83880; 85025; 86850; 86900; 86901; 86923; 87640; 87641; 88304; 88311; 93005; 97110; 97162; 97166; 97530; C1776; J0131; J0690; J1100; J1170; J1650; J1940; J2250; J2405; J2704; J2795; J3010; J7120; P9016

== ENCOUNTER → 2024-03-30 07:31 | Outpatient (BNV) | payer MEDICARE, BC, SELFPAY | PROVIDERS: Admitting Provider Physician Assistant; PCP Internal Medicine; Visit Provider Physician Assistant | DX: I50.9 Heart failure, unspecified (principal); Z96.642 Presence of left artificial hip joint | CPT/HCPCS: 99222; 99232; 99499 ==

== ENCOUNTER → 2024-03-30 07:31 | Outpatient (BNV) | payer MEDICARE, BC, SELFPAY | PROVIDERS: Admitting Provider Physician Assistant; PCP Internal Medicine; Visit Provider Orthopaedic Surgery | DX: Z47.1 Aftercare following joint replacement surgery (principal); Z96.642 Presence of left artificial hip joint | CPT/HCPCS: 27130; 99024; 99499 ==

== ENCOUNTER 2024-04-15 11:10 | Outpatient (AMB) | payer MEDICARE, BC, SELFPAY ==
--- NOTE | 2024-04-15 11:28 | MHC.OFFVIS ---
Vital Signs 04/15/24 11:34 Height 5 ft 6 in Weight 137 lb BMI 22.1 Intake Visit Reasons: 2 WK PO: L KATHERINE w/NE 03/30/24 Intake Note: Nai a 68 year old female who presents today for a post operative left KATHERINE on 03/30/24 NE. Patient reports cramps in the back of left thigh with pain in the left ankle at night, but it only lasts for about 30 minutes at a time. Allergies codeine [Codeine] Adverse Reaction (Mild, Verified 04/15/24 11:34) vomiting HPI HPI 2 WK PO: L KATHERINE w/NE 03/30/24: Details: 68-year-old female who returns to the office today for post-op left KATHERINE, 03/30/[address] Powell. She reports cramps in the back of her left thigh with pain in the left ankle at night, however the episode lasts for only about 30 minutes at a time. She is doing well otherwise and has no other concerns today. [facility] Medical History Bilateral cataracts History of cardioversion Myocardial infarction Arthritis Hx of transfusion of packed red blood cells Thyroid disease GERD (gastroesophageal reflux disease) CKD (chronic kidney disease) On anticoagulant therapy History of smoking 30 or more pack years PAF (paroxysmal atrial fibrillation) Atrial fibrillation with rapid ventricular response Left renal artery stenosis Personal history of nicotine dependence Cardiomyopathy Essential hypertension Atherosclerotic cardiovascular disease Asymmetric blood pressures Acute on chronic systolic (congestive) heart failure CHF (congestive heart failure) CAD (coronary artery disease) Multiple sclerosis Pulmonary nodules COPD (chronic obstructive pulmonary disease) Peripheral arterial occlusive disease Surgical History History of endoscopy History of colonoscopy History of heart artery stent (~2018) Status post angioplasty with stent (~09/2018) S/P insertion of iliac artery stent (~02/2019) S/P cardiac cath (~12/2020) History of cholecystectomy (~02/2009) Family History Father No problems noted. Mother No problems noted. Brother Diabetes Social History Household Members: None Housing: House Are you a primary hospice home care coordinator to a significant other at home: No Do you presently have visiting nurse or other home services: No Alcohol intake: never Comment: aware of trip hazard Patient Tobacco Use Status: Former Tobacco user Tobacco use type: Cigarette e-Cigarette/Vaping Use: Never Used Second Hand Smoke Exposure: No Advance Directives Date on File: 12/27/20 service: No Current occupational status: retired Cognitive needs: Yes (cane) Hearing needs: No Vision needs: Yes (reading glasses) Review of Systems Const All systems reviewed & are unremarkable except as noted in HPI and below Physical Exam Vital Signs: BMI result Body Mass Index 22.1 Extrem Other: Left hip: Incision clean, dry and intact. No redness or drainage. No pain with ROM. Calf supple, nontender. NVI. Assessment & Plan Assessment & Plan (1) Status post total hip replacement, left: Code(s): Z96.642 - Presence of left artificial hip joint Category: Surgical Plan Bella removed, steri strips applied. She will begin to transition to Outpatient PT to continue working on Gait training, ROM and quad strength. No driving for another 4 weeks. She will require ppx abx for dental procedures. She will f/u in 4 weeks, sooner if needed. Patient Instructions: Scribed for Carlos Sharma PA-C, by Jey Javier medical physics researcher, on 04/15/2024 at 11:30 AM EST.? I, Carlos Sharma PA-C, have personally reviewed and agree with the information entered by the scribe. Coding Level of Care Code Global (93931) Diagnoses Status post total hip replacement, left Z96.642
[2024-04-15 11:34] VITALS: BMI 22.1
== END 2024-04-15 12:12 | disposition home or self-care (01) ==
PROVIDERS: PCP Internal Medicine; Visit Provider Physician Assistant
DX: Z96.642 Presence of left artificial hip joint (principal)
CPT/HCPCS: 99024

== ENCOUNTER → 2024-04-15 11:10 | Outpatient (BNVA) | payer MEDICARE, BC, SELFPAY | PROVIDERS: PCP Internal Medicine; Visit Provider Physician Assistant | DX: Z47.1 Aftercare following joint replacement surgery (principal); Z96.642 Presence of left artificial hip joint | CPT/HCPCS: 99212 ==

== ENCOUNTER 2024-04-20 22:36 | Inpatient (IN) | payer MEDICARE, BC, SELFPAY ==
--- NOTE | ~2024-04-20 | CT_ITS ---
EXAMINATION: CT ANGIOGRAM OF THE CHEST WITH AND WITHOUT CONTRAST (CT PULMONARY ANGIOGRAM FOR PE) CT ABDOMEN PELVIS WITH CONTRAST CLINICAL INFORMATION: s/p L THR with sob and elevated d-dimer r/o pe. abd pain, fever, sepsis COMPARISON: CT chest dated 12/19/[address] abdomen pelvis dated 10/15/2023 TECHNIQUE: Prior to contrast administration, noncontrast localization images were obtained. Subsequently, multidetector volumetric imaging was performed from the thoracic inlet to the pubic symphysis through the chest, abdomen, and pelvis following the administration of 80 mL Omnipaque 350 intravenous contrast. No contrast reaction reported Sagittal, coronal, and MIP oblique sagittal (through the chest only) reformatted images were obtained on the CT workstation, uploaded to PACS, and reviewed. Total exam dose-length product: 754 mGy-cm This CT examination was performed using dose optimization techniques as appropriate, variously including the following: *Automated exposure control *Adjustment of mA and/or kV according to patient size (this includes techniques or standardized protocols for targeted exams where dose is matched to indication/reason for exam; i.e. extremities or head) *Use of iterative reconstruction technique FINDINGS: QUALITY OF STUDY/CONTRAST BOLUS: Satisfactory. PULMONARY ARTERIES: No central or segmental pulmonary emboli. THORACIC AORTA: No aneurysm or dissection. Calcific and fibrofatty atheromatous disease in the thoracic aorta. LUNG: The linear 1.8 x 0.5 x 1 cm nodular focus in the right middle lobe anteriorly near the epicardial fat pad grossly decreased in size as compared to prior studies and may represent pleural parenchymal scarring. No new nodules are identified. Central airways are clear. PLEURA: No pleural effusion or pneumothorax. MEDIASTINUM: Normal heart size. No pericardial effusion. Atherosclerotic calcifications are present at the coronary arteries. No hilar or mediastinal lymphadenopathy. No evidence of septal bowing or right heart strain. Small hiatal hernia. CHEST WALL/AXILLA: No axillary or internal mammary lymphadenopathy. ABDOMEN/PELVIS: LIVER, GALLBLADDER AND BILIARY TREE: The liver is normal in size, shape, and attenuation. No focal hepatic lesion. Mild intrahepatic and extrapelvic biliary ductal dilatation, likely related to prior cholecystectomy. No source of obstruction is identified. PANCREAS: Normal; no mass or surrounding fluid. SPLEEN: Normal size. No focal lesion. ADRENAL GLANDS: Normal; no mass. KIDNEYS AND URETERS: There is moderate to severe left pelvocaliectasis and moderate left hydroureter. More mild right hydroureteronephrosis. Mild bilateral perinephric stranding. There is mild left renal cortical atrophy and no focal renal lesions are identified. No nephrolithiasis or ureterolithiasis. The hydroureter terminates at the site of implantation at the bladder. Slight increased attenuation of the urothelium, left side greater than right, raising the possibility of urinary tract infection. GASTROINTESTINAL TRACT: Stomach, small bowel, and colon are normal in caliber. No bowel wall thickening or surrounding inflammatory changes. Appendix is normal. No intraperitoneal free fluid or free air. Small hiatal hernia. ABDOMINAL WALL: No significant hernia is appreciated. LYMPHOVASCULAR STRUCTURES: Multiple subcentimeter retroperitoneal lymph nodes are identified, likely reactive in nature. Dystrophic calcifications are present in the abdominal aorta and iliac arteries. No aneurysmal dilatation. BLADDER: Bladder is distended by gas and fluid. Mild bladder wall thickening. No stones. PELVIC VISCERA: Unremarkable. OSSEOUS STRUCTURES: Bones are osteopenic. Mild left convex lumbar scoliosis with mild to moderate multilevel degenerative disc disease. Mild to moderate osteoarthritis in the right hip. Intact left hip prosthesis status post left total hip arthroplasty CT/CT abdomen pelvis w IV con IMPRESSION: 1. No evidence of pulmonary emboli. 2. Moderate to severe left pelvocaliectasis and moderate left hydroureter with more mild right hydroureteronephrosis. No obstructing stones are identified. Slight increased attenuation of the urothelium, left side greater than right, raising the possibility of urinary tract infection. 3. Mild bladder wall thickening with gas in the bladder lumen. Query recent catheterization. Recommend correlation with urinalysis for possible cystitis. 4. Mild intrahepatic and extrahepatic biliary ductal dilatation, likely related to prior cholecystectomy.
[2024-04-20 22:43] VITALS: BP 116/62; BP 123/66; PULSE 100; PULSE 77; RESP 13; TEMP 36.7; O2SAT 96; O2SAT 97; BMI 22.3
--- NOTE | 2024-04-20 22:44 | ECG_ITS ---
Test Reason : a-fib Blood Pressure : / mmHG Vent. Rate : 096 BPM Atrial Rate : 096 BPM P-R Int : 208 ms QRS Dur : 114 ms QT Int : 440 ms P-R-T Axes : 059 005 133 degrees QTc Int : 555 ms Sinus rhythm with Premature atrial complexes Incomplete left bundle branch block Left ventricular hypertrophy with repolarization abnormality ( Sokolow-Rodriges , Lander product ) Prolonged QT Abnormal ECG When compared with ECG of 15-MAR-2024 13:30, Premature atrial complexes are now Present ST no longer depressed in Anterior leads T wave inversion no longer evident in Anterior leads Referred By: Generic ED Physician Electronically Signed By:MADDIE ARIAS MD
[2024-04-20 22:53] VITALS: BP 123/66; PULSE 86; RESP 18; TEMP 36.6; O2SAT 97
[2024-04-20 23:07] VITALS: TEMP 39.2
--- NOTE | 2024-04-20 23:21 | PC.NURSE ---
Spoke with Dr. Thomas concerning patient rectal temp and presenting factors.
[2024-04-20 23:22] LABS: Basophils Absolute Auto 0.1 X10*3/uL (0.0-0.2); Basophils Percent Auto 0.3 % (0-2); Eosinophils Percent Auto 0.1 % (0-4); Hematocrit 29.3 % (37.0-47.0); Hemoglobin 9.7 g/dl (12.0-16.0); Imm Gran Pct Auto 0.5 % (0.0-0.4); Lymphocytes Absolute Auto 0.7 X10*3/uL (1.2-4.9); Lymphocytes Percent Auto 3.7 % (20-40); Mean Corpuscular HGB Conc 33.1 g/dl (31.0-35.0); Mean Corpuscular Hemoglobin 25.8 pg (27.0-33.0); Mean Corpuscular Volume 77.9 fL (80.0-98.0); Mean Platelet Volume 9.1 fL (9.4-12.3); Monocytes Absolute Auto 0.9 X10*3/uL (0.1-1.2); Monocytes Percent Auto 4.9 % (2-11); Neutrophils Percent Auto 90.5 % (45-73); Platelet Count 406 X10*3/uL (160-400); Red Blood Count 3.76 X10*6/uL (4.20-5.50); Red Cell Distribution Width 20.2 % (11.0-16.0); SCAN SMEAR FLAG 1; White Blood Count 18.8 X10*3/uL (4.8-10.8)
[2024-04-20 23:23] LABS: MANUAL DIFF FLAG SCAN
[2024-04-20 23:27] LABS: INTERNATIONAL NORM RATIO 1.7 (0.9-1.1); Prothrombin Time 20.5 SEC (11.1-13.3)
[2024-04-20 23:31] LABS: Lactic Acid 1.6 mmol/L (0.5-2.0)
[2024-04-20 23:40] LABS: SLIDE REVIEW VERIFIED
[2024-04-20 23:42] LABS: B Type Natriuretic Peptide 1165 pg/mL (<100)
[2024-04-20 23:43] LABS: D Dimer High Sensitivity 891 NG/ML
--- NOTE | 2024-04-20 23:43 | ED_ITS ---
HPI - General Adult General Chief complaint: Nausea/Vomiting/Diarrhea Stated complaint: AFIB,NAUSEA,VOMITING, FROM SNF Time Seen by Provider: 04/20/24 23:26 Source: patient and EMS Mode of arrival: EMS Limitations: no limitations History of Present Illness ED Provider: DR. Chao HPI narrative: 68-year-old female with history of MS, COPD, CHF, cardiomyopathy, CAD, HTN,PAD, paroxysmal AFib on Eliquis, hypothyroidism, renal artery stenosis, former smoker, s/p left KATHERINE on 03/30/2024, patient has uneventful postoperative event and discharge to rehab came back today with fever of 102.3 and subjective fever with chills, complaining of abdominal pain with nausea and vomiting, last bowel movement was this morning, never had intra-abdominal surgery in the past. No dysuria, no frequency urination. No blood in the urine or stool. Related Data Home Medications ?Medication ?Instructions ?Recorded ?Confirmed paroxetine HCl 40 mg tablet 40 mg PO BEDTIME 10/03/20 03/30/24 cholecalciferol (vitamin D3) 25 25 mcg PO DAILY 12/20/20 03/30/24 mcg (1,000 unit) tablet (Vitamin D3) cyanocobalamin (vitamin B-12) 1,000 mcg PO DAILY 12/20/20 03/30/24 1,000 mcg tablet (Vitamin B-12) melatonin 10 mg tablet 10 mg PO BEDTIME Insomnia 01/13/23 03/30/24 levothyroxine 50 mcg tablet 50 mcg PO DAILY 09/02/23 03/30/24 (Synthroid) metoprolol succinate 25 mg 25 mg PO DAILY 12/25/23 03/30/24 tablet,extended release 24 hr pantoprazole 40 mg tablet,delayed 40 mg PO DAILY 03/15/24 03/30/24 release albuterol sulfate 90 mcg/actuation 2 puff inhalation Q4H PRN wheezing 03/30/24 03/30/24 aerosol inhaler Previous Rx's ?Medication ?Instructions ?Recorded atorvastatin 80 mg tablet 80 mg PO BEDTIME #90 tabs 07/28/23 clopidogrel 75 mg tablet 75 mg PO DAILY #90 tabs 09/02/23 apixaban 5 mg tablet (Eliquis) 5 mg PO BID #180 tabs 02/05/24 fluticasone 113 mcg-salmeterol 14 1 inh inhalation Q12H copd 30 days 02/12/24 mcg/actuation breath activated #1 ea powdr furosemide 20 mg tablet 40 mg PO DAILY 90 days #180 tabs 03/16/24 potassium chloride 20 mEq 20 meq PO DAILY #90 tabs 03/29/24 tablet,extended release acetaminophen 325 mg tablet 650 mg (2 x 325 mg) PO Q6H PRN 04/02/24 Pain, Mild (Pain Scale 1-3) 30 days #240 tabs hydrocodone 7.5 mg-acetaminophen 1 tab PO Q4H PRN Pain, 04/02/24 325 mg tablet Moderate(Pain Scale 4-6) 7 days #42 tabs sennosides 8.6 mg tablet (Senna 17.2 mg (2 x 8.6 mg) PO BEDTIME 04/02/24 Lax) PRN Constipation 30 days #60 tabs Allergies Allergy/AdvReac Type Severity Reaction Status Date / Time codeine [Codeine] AdvReac Mild vomiting Verified 04/20/24 22:53 Review of Systems 2 Review of Systems: All other systems are reviewed and are negative Constitutional: Reports as per HPI and Reports no additional constitutional complaints Eyes: Reports as per HPI and Reports no additional eye complaints Reports system reviewed and no additional complaints, except as documented Cardiovascular: Reports as per HPI and Reports no additional cardiovascular complaints Respiratory: Reports as per HPI and Reports no additional respiratory complaints Gastrointestinal: Reports as per HPI and Reports no additional gastrointestinal complaints Genitourinary: Reports no additional female genitourinary complaints Musculoskeletal: Reports no additional musculoskeletal complaints Skin/Breast: Reports system reviewed and no additional complaints, except as docu Psychiatric: Reports no additional psychiatric complaints Endocrine: Reports no additional endocrine complaints Hematologic/Lymphatic: Reports no additional hematologic/lymphatic complaints Allergic/Immunologic: Reports no additional allergic/immunologic complaints Reports system reviewed and no additional complaints, except as documented and Reports Abnormal speech present [facility] Past Medical History Medical History Osteoarthritis of left hip Bilateral cataracts History of cardioversion Myocardial infarction Arthritis Hx of transfusion of packed red blood cells Thyroid disease GERD (gastroesophageal reflux disease) CKD (chronic kidney disease) On anticoagulant therapy History of smoking 30 or more pack years PAF (paroxysmal atrial fibrillation) Atrial fibrillation with rapid ventricular response Left renal artery stenosis Personal history of nicotine dependence Cardiomyopathy Essential hypertension Atherosclerotic cardiovascular disease Asymmetric blood pressures Acute on chronic systolic (congestive) heart failure CHF (congestive heart failure) CAD (coronary artery disease) Multiple sclerosis Pulmonary nodules COPD (chronic obstructive pulmonary disease) Peripheral arterial occlusive disease Surgical History History of endoscopy History of colonoscopy History of heart artery stent (~2018) Status post angioplasty with stent (~09/2018) S/P insertion of iliac artery stent (~02/2019) S/P cardiac cath (~12/2020) History of cholecystectomy (~02/2009) Family History Family History Father No problems noted. Mother No problems noted. Brother Diabetes Social History Social History Household Members: None Housing: House Are you a primary continuum of care manager to a significant other at home: No Do you presently have visiting nurse or other home services: No Alcohol intake: never Comment: aware of trip hazard Patient Tobacco Use Status: Former Tobacco user Tobacco use type: Cigarette Smoked in Last 30 Days: No e-Cigarette/Vaping Use: Never Used Second Hand Smoke Exposure: No Advance Directives: Yes Advance Directives on File: Yes Advance Directives Date on File: 12/27/20 Do you have a plan to hurt others: No Plan service: No Current occupational status: retired Cognitive needs: Yes (cane) Hearing needs: No Vision needs: Yes (reading glasses) Physical Exam ED Vital Signs: Vital Signs - 24 hr 04/20/24 22:43 04/20/24 22:53 04/20/24 23:07 Temperature 98.1 F 97.9 F 102.5 F H Pulse Rate 77 86 Respiratory Rate 13 18 Blood Pressure 123/66 123/66 Pulse Oximetry 96 97 Oxygen Delivery Method Room Air Room Air 04/21/24 00:45 04/21/24 01:34 Temperature 100.7 F H Pulse Rate 83 Respiratory Rate 15 Blood Pressure 135/51 L Pulse Oximetry 99 Oxygen Delivery Method Room Air BMI result Body Mass Index 22.3 Vital signs have been reviewed and appear to be correct. Blood pressure elevated. Heart rate normal. Respiratory rate normal. Temperature elevated, Oxygen saturation normal. Appearance: Alert. Oriented X3. No acute distress. Head: Normal external exam. Normocephalic. Atraumatic. No [place] signs noted. No raccoon eyes noted Eyes: PERRLA. EOMI. Conjunctiva and sclera normal. Eyelids normal. ENT: TM's Normal. Pharynx normal. Uvula midline. Moist mucous membranes. No trismus noted. No drooling noted. No muffled voice noted. Neck: Normal inspection. Neck supple. FROM. No adenopathy. Thyroid Normal. No meningeal signs. No neck mass noted. CVS: Normal heart rate and rhythm. Heart sound normal. No murmurs noted. Pulses normal throughout. Respiratory: No respiratory distress. Painless inspiration. Breath sounds normal. No wheezes/rales/rhonchi noted. Chest nontender. No accessory muscle usage noted or decreased air movement noted. Abdomen: Soft and nontender. Bowel sounds normal in all 4 quadrants. No distention noted. No organomegaly noted. No visible injury noted. Back: Sacral decubitus stage I, bilateral CVA tenderness. Skin: Skin warm and dry. Normal skin color. Normal skin turgor. No rashes/lesions/lacerations noted. Extremities: S/p left KATHERINE, incision is dry, clean, intact, no discharge, no fluctuation. Neuro: Oriented X 3. Cranial nerve exam: II-XII are grossly intact No motor deficit. No sensory deficit. Reflexes normal. Course Reevaluation(s) Reevaluation #1: 68-year-old female s/p left THR presented with fever and met criteria for SIRS, no severe sepsis or septic shock. CT abdomen pelvis consistent with hydronephrosis with no obstructing tone. Patient received 1 L fluids and Zosyn, ceftriaxone, Zosyn can be discontinued. Admit. Time: 02:58 Medications Administered Discontinued Medications Generic Name Dose Route Start Last Admin Trade Name Freq PRN Reason Stop Dose Admin Acetaminophen 650 mg 04/20/24 23:49 04/20/24 23:57 Acetaminophen 325 Mg Tablet PO 04/20/24 23:50 650 mg ONCE ONE Administration Piperacillin Sod/Tazobactam 50 mls @ 100 mls/hr 04/20/24 23:42 04/21/24 00:53 Sod 3.375 gm/ Sodium Chloride IV 04/21/24 00:11 Infused ONCE ONE Infusion Sodium Chloride 1,000 mls @ 999 mls/hr 04/20/24 23:42 04/21/24 00:53 Ns IV 04/21/24 00:42 Infused .Q1H1M ONE Infusion Iohexol 85 ml 04/21/24 01:35 04/21/24 01:36 Iohexol 350 Mg/Ml 100 Ml Infus..Btl IV 04/21/24 01:36 85 ml ONCE ONE Administration Morphine Sulfate 1 mg 04/20/24 23:47 04/20/24 23:56 Morphine Sulfate 2 Mg/Ml Cartridge IVPUSH 04/20/24 23:48 1 mg ONCE ONE Administration Protocol Ondansetron HCl 4 mg 04/20/24 23:47 04/20/24 23:56 Ondansetron Hcl 4 Mg/2 Ml Vial IVPUSH 04/20/24 23:48 4 mg ONCE ONE Administration Medical Decision Making Differential Diagnosis Differential Diagnoses: The differential diagnosis associated with the presentation includes (SIRS, UTI, pyelonephritis, colitis, acute pancreatitis, acute gastritis, diverticulitis, acute appendicitis, pulmonary embolism, pneumonia, pneumothorax, pleural effusion, electrolyte derangement, severe anemia.) Admission/Observation Consideration of admission/observation: Escalation of care including admission/observation considered Consult Healthcare Provider Management of the patient was discussed with: Hospitalist (Dr. Marcus) Lab Data MDM Lab Attestation statement: I reviewed the patient's lab results. 04/20/24 23:13 04/20/24 23:41 Labs: Lab Results 04/20/24 04/20/24 04/21/24 Range/Units 23:13 23:41 01:30 WBC 18.8 H (4.8-10.8) X10*3/uL RBC 3.76 L (4.20-5.50) X10*6/uL Hgb 9.7 L (12.0-16.0) g/dl Hct 29.3 L (37.0-47.0) % MCV 77.9 L (80.0-98.0) fL MCH 25.8 L (27.0-33.0) pg MCHC 33.1 (31.0-35.0) g/dl RDW 20.2 H (11.0-16.0) % Plt Count 406 H D (160-400) X10*3/uL MPV 9.1 L (9.4-12.3) fL Immature Gran % (Auto) 0.5 H (0.0-0.4) % Neut % (Auto) 90.5 H (45-73) % Lymph % (Auto) 3.7 L (20-40) % [place] % (Auto) 4.9 (2-11) % Eos % (Auto) 0.1 (0-4) % Baso % (Auto) 0.3 (0-2) % Lymph # (Auto) 0.7 L (1.2-4.9) X10*3/uL [place] # (Auto) 0.9 (0.1-1.2) X10*3/uL Eos # (Auto) 0.0 (0.0-0.4) X10*3/uL Baso # (Auto) 0.1 (0.0-0.2) X10*3/uL Abs Immat Gran (auto) 0.10 H (0.00-0.03) X10*3/uL Absolute Neuts (auto) 17.0 H (2.0-8.3) x10*3/uL Absolute Nucleated RBC 0.000 (0.0-0.012) X10*3/uL Nucleated RBC % (auto) 0.0 (0.0-0.2) /100WBC Smear Tech's Comments VERIFIED PT 20.5 H (11.1-13.3) SEC INR 1.7 H (0.9-1.1) D-Dimer High Sensitivty 891 NG/ML Sodium 138 (135-145) mmol/L Potassium 3.4 (3.3-5.1) mmol/L Chloride 100 (96-108) mmol/L Carbon Dioxide 23 (22-29) mmol/L Anion Gap 18 (12-20) BUN 19 H (9-16) mg/dL Creatinine 1.42 H (0.5-1.4) mg/dL Estim Creat Clear Calc 34.5 Estimated GFR 37 Random Glucose 114 (60-115) mg/dL Lactic Acid 1.6 (0.5-2.0) mmol/L Calcium 9.0 (8.4-10.2) mg/dL Total Bilirubin 0.4 (0.0-1.0) mg/dL AST 10 (5-31) U/L ALT 7 (0-31) U/L Alkaline Phosphatase 116 (39-117) U/L Troponin I High Sens 26.9 H D (<3.5-17.0) ng/L B-Natriuretic Peptide 1165 H (<100) pg/mL Total Protein 7.3 (6.5-8.0) g/dL Albumin 3.2 L (3.5-5.0) g/dL Lipase 6 L (8-78) U/L Urine Color Yellow Urine Appearance Turbid Urine pH 6.0 (5.0-9.0) Ur Specific [place] 1.015 (1.005-1.025) Urine Protein 100 (2+) H (Neg-Trace) mg/dL Urine Glucose (UA) Negative (Negative) mg/dL Urine Ketones Negative (Negative) mg/dL Urine Blood Large (3+) H (Negative) Urine Nitrite Negative (Negative) Ur Leukocyte Esterase Large (3+) H (Negative) Urine RBC >20 H (0-2) /HPF Urine WBC >50 H (0-5) /HPF Ur Squamous Epith Cells 0-2 (0-2) /HPF Urine Bacteria 4+ (None Seen) Hyaline Casts 0-2 (0-2) /LPF Independent Interpretation I performed an independent interpretation of an: CT Scan (Abdomen and pelvis:. No evidence of pulmonary emboli. 2. Moderate to severe left pelvocaliectasis and moderate left hydroureter with more mild right hydroureteronephrosis. No obstructing stones are identified. Slight increased attenuation of the urothelium, left side greater than right, raising th) Radiology Impression Discussion of test interpretation with radiology: I have reviewed the radiologist's reading. Discharge Plan Discharge Clinical Impression: Acute pyelonephritis, SIRS (systemic inflammatory response syndrome) Patient Disposition: Admitted As Inpatient Prescriptions: No Action atorvastatin 80 mg tablet 80 mg PO BEDTIME Qty: 90 1RF clopidogrel 75 mg tablet 75 mg PO DAILY Qty: 90 3RF Eliquis 5 mg tablet 5 mg PO BID Qty: 180 3RF fluticasone propion-salmeterol 113-14 mcg/actuation aerosol powdr breath activated 1 inh inhalation Q12H 30 Days Qty: 1 1RF furosemide 20 mg tablet 40 mg PO DAILY 90 Days Qty: 180 0RF Protocol: Hold for SBP< HOLD for SBP < : 90 potassium chloride 20 mEq tablet extended release 20 meq PO DAILY Qty: 90 1RF cyanocobalamin (vitamin B-12) [Vitamin B-12] 1,000 mcg Tablet 1,000 mcg PO DAILY cholecalciferol (vitamin D3) [Vitamin D3] 25 mcg (1,000 unit) Tablet 25 mcg PO DAILY melatonin 10 mg Tablet 10 mg PO BEDTIME pantoprazole 40 mg tablet,delayed release (DR/EC) 40 mg PO DAILY albuterol sulfate 90 mcg/actuation HFA aerosol inhaler 2 puff inhalation Q4H PRN (Reason: wheezing) sennosides [Senna Lax] 8.6 mg Tablet 17.2 mg PO BEDTIME PRN (Reason: Constipation) 30 Days Qty: 60 0RF acetaminophen 325 mg Tablet 650 mg PO Q6H PRN (Reason: Pain, Mild (Pain Scale 1-3)) 30 Days Qty: 240 0RF hydrocodone-acetaminophen 7.5-325 mg Tablet 1 tab PO Q4H PRN (Reason: Pain, Moderate(Pain Scale 4-6)) 7 Days Qty: 42 0RF Rx Instructions: Partial Fill upon patient request. paroxetine HCl 40 mg tablet 40 mg PO BEDTIME metoprolol succinate 25 mg tablet extended release 24 hr 25 mg PO DAILY levothyroxine [Synthroid] 50 mcg tablet 50 mcg PO DAILY Print Language: Hungarian
[2024-04-20] MEDS: 0.9 % Sodium Chloride 1,000 ML 999 ML IV (23:45)
[2024-04-20] MEDS: Piperacillin Sodium/Tazobactam 3.375 GM in 0.9 % Sodium Chloride 50 ML IV (23:49)
[2024-04-20] MEDS: Morphine Sulfate 2 MG/ML CARTRIDGE 1 MG IVPUSH (23:56)
[2024-04-20] MEDS: ondansetron HCL 4 MG/2 ML VIAL IVPUSH (23:56)
[2024-04-20] MEDS: Acetaminophen 325 MG TABLET 650 MG PO (23:57)
[2024-04-20 23:59] LABS: Alanine Aminotransferase 7 U/L (0-31); Albumin Level 3.2 g/dL (3.5-5.0); Alkaline Phosphatase 116 U/L (39-117); Anion Gap 18 (12-20); Aspartate Amino Transferase 10 U/L (5-31); Bilirubin Total 0.4 mg/dL (0.0-1.0); Blood Urea Nitrogen 19 mg/dL (9-16); Carbon Dioxide 23 mmol/L (22-29); Chloride 100 mmol/L (96-108); Creatinine Clr Calc Pharmacy 34.5; Estimated Glomerular Filt Rate 37; Glucose Random 114 mg/dL (60-115); Lipase 6 U/L (8-78); Potassium 3.4 mmol/L (3.3-5.1); Sodium 138 mmol/L (135-145); Total Protein 7.3 g/dL (6.5-8.0)
[2024-04-21] VITALS (10 sets, daily range): BP systolic 104–146; BP diastolic 51–83; PULSE 70–100; RESP 12–18; TEMP 35.8–38.2; O2SAT 94–99
[2024-04-21 00:06] LABS: Troponin-I High Sensitivity 26.9 ng/L (<3.5-17.0)
[2024-04-21] MEDS: iohexoL 350 MG/ML 100 ML INFUS..BTL 85 ML IV (01:36)
[2024-04-21 01:59] LABS: Appearance Urine Turbid; Color Urine Yellow; Glucose Urine UA Negative (Negative); Leukocyte Esterase Urine Large (3+) (Negative); Nitrite Urine Negative (Negative); Specific Gravity - Urine 1.015 (1.005-1.025); UMIC TRIGGER UACC YES; Urine Blood Large (3+) (Negative); Urine Ketones Negative (Negative); Urine Protein 100 (2+) mg/dL (Neg-Trace)
[2024-04-21 02:24] LABS: Bacteria Urine 4+ (None Seen); Hyaline Casts Urine 0-2 /LPF (0-2); RBC Urine >20 /HPF (0-2); Squamous Epithelial Cell Urine 0-2 /HPF (0-2); UACC Culture Trigger YES; WBC Urine >50 /HPF (0-5)
[2024-04-21] MEDS: cefTRIAXone sodium 1 GM in 0.9 % Sodium Chloride 50 ML IV (03:09)
--- NOTE | 2024-04-21 03:49 | PM.IMHP ---
History of Present Illness Date of Service: 04/21/24 Attending physician on admission: Justen Rivera Chief Complaint: Dry heaves Alden Garcia is a very pleasant 68 years old woman with past medical history significant for recurrent UTIs, coronary artery disease status post stenting on Plavix, atrial fibrillation on Eliquis, GERD, HFrEF, essential hypertension, MS (controlled for many years), COPD and CKD was brought to the emergency department due to nausea and dry heaves associated with lower abdominal pain, palpitations, fever and shortness of breath. Denied diarrhea, chest pain, headache, cough or dizziness. She recently underwent a left hip surgery and currently receiving treatment at rehab [facility]. Denied pain with urination or blood in urine. In the ED, she was found to have temperature of 102.5 degrees. Other vital signs are normal. Blood workup was remarkable for leukocytosis. There is no lactic acidosis. Hemoglobin is 9.7 and platelets 406. Creatinine is 1.42 (1.13, about couple of weeks ago). Troponin is 26.9. There are no significant electrolyte imbalances. Urinalysis consistent with UTI. Chest, abdomen pelvis CT scan showed no evidence of pulmonary emboli, moderate to severe left pelvicaliectasis and moderate left ureteral hydroureter with more mild right hydronephrosis with obstructive stone. ED tx: Zosyn 3.375 g IV, NS 1 L bolus, morphine 1 mg IV, Zofran 4 mg IV, acetaminophen 650 mg p.o., IV contrast, ceftriaxone 1 g IV Review of Systems Review of Systems: All 12 systems were reviewed and normal except as noted in HPI. [facility] Medical History Osteoarthritis of left hip Bilateral cataracts History of cardioversion Myocardial infarction Arthritis Hx of transfusion of packed red blood cells Thyroid disease GERD (gastroesophageal reflux disease) CKD (chronic kidney disease) On anticoagulant therapy History of smoking 30 or more pack years PAF (paroxysmal atrial fibrillation) Atrial fibrillation with rapid ventricular response Left renal artery stenosis Personal history of nicotine dependence Cardiomyopathy Essential hypertension Atherosclerotic cardiovascular disease Asymmetric blood pressures Acute on chronic systolic (congestive) heart failure CHF (congestive heart failure) CAD (coronary artery disease) Multiple sclerosis Pulmonary nodules COPD (chronic obstructive pulmonary disease) Peripheral arterial occlusive disease Family History Father No problems noted. Mother No problems noted. Brother Diabetes Surgical History History of endoscopy History of colonoscopy History of heart artery stent (~2018) Status post angioplasty with stent (~09/2018) S/P insertion of iliac artery stent (~02/2019) S/P cardiac cath (~12/2020) History of cholecystectomy (~02/2009) Social History Household Members: None Housing: House Are you a primary restorative care technician to a significant other at home: No Do you presently have visiting nurse or other home services: No Alcohol intake: never Comment: aware of trip hazard Patient Tobacco Use Status: Former Tobacco user Tobacco use type: Cigarette Smoked in Last 30 Days: No e-Cigarette/Vaping Use: Never Used Second Hand Smoke Exposure: No Advance Directives: Yes Advance Directives on File: Yes Advance Directives Date on File: 12/27/20 Do you have a plan to hurt others: No Plan Nutrition Risks: No Nutritional Risk service: No Current occupational status: retired Cognitive needs: Yes (cane) Hearing needs: No Vision needs: Yes (reading glasses) Meds Allergies Allergy/AdvReac Type Severity Reaction Status Date / Time codeine [Codeine] AdvReac Mild vomiting Verified 04/20/24 22:53 Active Medications: Current Medications Acetaminophen (Acetaminophen 325 Mg Tablet) 975 mg PO Q6H PRN PRN Reason: Pain, Mild (Pain Scale 1-3), fever or headache Lactated Ringer's (Lr) 1,000 mls @ 125 mls/hr IVCONT .Q8H JOSE Piperacillin Sod/Tazobactam (Sod 3.375 gm/ Sodium Chloride) 50 mls @ 100 mls/hr IV Q6H JOSE Prochlorperazine Edisylate (Prochlorperazine Edisylate 10 Mg/2 Ml Vial) 10 mg IVPUSH Q6H PRN PRN Reason: Nausea and Vomiting Sodium Chloride (0.9 % Sodium Chloride Flush 3 Ml Syringe) 3 ml IVFLUSH QSHIFT JOSE Home Medications ?Medication ?Instructions ?Recorded ?Confirmed ?Last Taken ?Type paroxetine HCl 40 mg tablet 40 mg PO BEDTIME 10/03/20 03/30/24 03/29/24 History cholecalciferol (vitamin D3) 25 25 mcg PO DAILY 12/20/20 03/30/24 03/29/24 History mcg (1,000 unit) tablet (Vitamin D3) cyanocobalamin (vitamin B-12) 1,000 mcg PO DAILY 12/20/20 03/30/24 03/29/24 History 1,000 mcg tablet (Vitamin B-12) melatonin 10 mg tablet 10 mg PO BEDTIME Insomnia 01/13/23 03/30/24 03/29/24 History levothyroxine 50 mcg tablet 50 mcg PO DAILY 09/02/23 03/30/24 03/29/24 History (Synthroid) metoprolol succinate 25 mg 25 mg PO DAILY 12/25/23 03/30/24 03/29/24 History tablet,extended release 24 hr pantoprazole 40 mg tablet,delayed 40 mg PO DAILY 03/15/24 03/30/24 03/29/24 History release albuterol sulfate 90 mcg/actuation 2 puff inhalation Q4H PRN wheezing 03/30/24 03/30/24 Unknown History aerosol inhaler Physical Exam Vital Signs and Narrative: Vital Signs: Last Vital Signs Temp 100.7 F H 04/21/24 01:34 Pulse 83 04/21/24 00:45 Resp 15 04/21/24 00:45 BP 135/51 L 04/21/24 00:45 Pulse Ox 99 04/21/24 00:45 O2 Del Method Room Air 04/21/24 00:45 BMI result Body Mass Index 22.3 Constitutional - Awake and Alert, No apparent distress. Acutely ill. Febrile. Very pleasant and cooperative. HEENT - PERRLA, EOMI. Dry oral mucosa. Heart - Irregular rhythm, normal rate. Lungs - Normal lung expansion, Normal respiratory effort, No respiratory distress, CTA bilaterally Abdomen - Nontenderness. Increased bowel sounds. Pelvic discomfort. No rebound or guarding. Extremities - no calf tenderness bilaterally, no swelling Musculoskeletal - Left hip: No tenderness, adequate range of motion. Skin - Warm/Dry Neurological - Alert & oriented x3. No focal weakness grossly noted. Normal speech. Psychological - Appropriate affect Results Labs 04/20/24 23:13 04/20/24 23:41 Labs: Laboratory Results - last 24 hr 04/20/24 04/20/24 04/21/24 23:13 23:41 01:30 MCV 77.9 L MCH 25.8 L MCHC 33.1 RDW 20.2 H Plt Count 406 H D MPV 9.1 L Immature Gran % (Auto) 0.5 H Neut % (Auto) 90.5 H Lymph % (Auto) 3.7 L [place] % (Auto) 4.9 Eos % (Auto) 0.1 Baso % (Auto) 0.3 Lymph # (Auto) 0.7 L [place] # (Auto) 0.9 Eos # (Auto) 0.0 Baso # (Auto) 0.1 Abs Immat Gran (auto) 0.10 H Absolute Neuts (auto) 17.0 H Absolute Nucleated RBC 0.000 Nucleated RBC % (auto) 0.0 Smear Tech's Comments VERIFIED PT 20.5 H INR 1.7 H D-Dimer High Sensitivty 891 Anion Gap 18 Estim Creat Clear Calc 34.5 Estimated GFR 37 Random Glucose 114 Lactic Acid 1.6 Calcium 9.0 Total Bilirubin 0.4 AST 10 ALT 7 Alkaline Phosphatase 116 Troponin I High Sens 26.9 H D B-Natriuretic Peptide 1165 H Total Protein 7.3 Albumin 3.2 L Lipase 6 L Urine Color Yellow Urine Appearance Turbid Urine pH 6.0 Ur Specific [place] 1.015 Urine Protein 100 (2+) H Urine Glucose (UA) Negative Urine Ketones Negative Urine Blood Large (3+) H Urine Nitrite Negative Ur Leukocyte Esterase Large (3+) H Urine RBC >20 H Urine WBC >50 H Ur Squamous Epith Cells 0-2 Urine Bacteria 4+ Hyaline Casts 0-2 Imaging Radiologist's Impressions: Impressions Abdomen/Pelvis CT 04/21/24 01:20 IMPRESSION: 1. No evidence of pulmonary emboli. 2. Moderate to severe left pelvocaliectasis and moderate left hydroureter with more mild right hydroureteronephrosis. No obstructing stones are identified. Slight increased attenuation of the urothelium, left side greater than right, raising the possibility of urinary tract infection. 3. Mild bladder wall thickening with gas in the bladder lumen. Query recent catheterization. Recommend correlation with urinalysis for possible cystitis. 4. Mild intrahepatic and extrahepatic biliary ductal dilatation, likely related to prior cholecystectomy. Chest CTA 04/21/24 01:20 IMPRESSION: 1. No evidence of pulmonary emboli. 2. Moderate to severe left pelvocaliectasis and moderate left hydroureter with more mild right hydroureteronephrosis. No obstructing stones are identified. Slight increased attenuation of the urothelium, left side greater than right, raising the possibility of urinary tract infection. 3. Mild bladder wall thickening with gas in the bladder lumen. Query recent catheterization. Recommend correlation with urinalysis for possible cystitis. 4. Mild intrahepatic and extrahepatic biliary ductal dilatation, likely related to prior cholecystectomy. Assessment and Plan (1) SIRS (systemic inflammatory response syndrome): Status: Acute (2) Acute pyelonephritis: Status: Acute Plan Alden Garcia is a 68 yo woman admitted with: Acute pyelonephritis + sepsis criteria, no severe sepsis. Admit to hospitalist service. Telemetry. Gentle IV fluids (HFrEF, diastolic dysfunction). Continue empiric IV antibiotic therapy with. Blood and urine cultures obtained -we will follow results. Elevated troponin, likely due to acute infectious process. Continue to monitor. Chronic kidney disease, stage 3A. Continue to monitor renal function. Avoid nephrotoxic agents. Recent left hip KATHERINE. No new symptoms. Participating with physiotherapy. CAD. Continue Plavix. Hyperlipidemia. Continue statin. Atrial fibrillation, currently rate controlled. Telemetry. Continue Eliquis and metoprolol. GERD. Continue PPI. HFrEF + diastolic dysfunction. No signs of decompensation. COPD. Not in acute exacerbation. Continue maintenance inhalers. Hypothyroidism. Continue levothyroxine. DVT prophylaxis: On Eliquis. Code status: Full Patient will need hospitalization for at least 2 midnights for sepsis secondary to acute pyelonephritis treatment with IV antibiotics in addition to close monitoring of vital signs and blood workup. Quality Stroke Does the patient have a stroke diagnosis?: No VTE Prior VTE?: No VTE Risk Level:: Medical - moderate - high VTE Device Contraindication: Treatment Not Indicated VTE Drug Contraindication: N/A - Med Ordered
[2024-04-21] MEDS: Lactated Ringers 1,000 ML 80 ML IVCONT (04:18)
--- NOTE | 2024-04-21 04:28 | PC.NURSE ---
Perineal care provided. Barrier cream applied. Purewick in place.
[2024-04-21] MEDS: Prochlorperazine Edisylate 10 MG/2 ML VIAL IVPUSH (04:33)
--- NOTE | 2024-04-21 04:35 | PC.NURSE ---
Pt reporting feeling nausea and is actively vomiting. Medicated with Compazine per DEC. Pt tolerated well. Vomiting has subsided. Monitoring is ongoing. Pending bed assignment. Pt is aware of plan of care.
[2024-04-21] MEDS: Piperacillin Sodium/Tazobactam 3.375 GM in 0.9 % Sodium Chloride 50 ML IV (05:52)
[2024-04-21] MEDS: Pantoprazole Sodium 40 MG/10 ML VIAL IVPUSH (05:52)
--- NOTE | 2024-04-21 09:36 | MHC.CM.PN ---
CM met with Patient at bedside and addressed IMM with her; original was given to Patient and a copy has been placed on the chart. Patient comes to [facility] from [facility]; Patient states that she is a private pay bed hold there and it is her goal to return. CM has initiated and will follow for dc planning.Typically, Patient lives alone in a house and uses a walker to assist with mobility; she has had [facility] in the past. PCP is Dr. Whitfield and the HCP on file is Aliya.
--- NOTE | 2024-04-21 10:15 | PHA.MEDREC ---
Pharmacy Consult ? Medication Reconciliation Pharmacy has completed the medication reconciliation. Used med list from [facility] [phone] to confirm patients medication list
--- NOTE | 2024-04-21 11:45 | PM.EVENT ---
Event Note Date of Service: 04/21/24 Event Note: Seen and evaluated pain under fair control Continue IV antibiotics pending urine and blood cultures Time Spent With Patient Time: Total time managing care of this patient today ____ minutes.
[2024-04-21] MEDS: Piperacillin Sodium/Tazobactam 2.25 GM in 0.9 % Sodium Chloride 50 ML IV ×2 (11:58→17:57)
[2024-04-21] MEDS: Clopidogrel Bisulfate 75 MG TABLET PO (13:31)
[2024-04-21] MEDS: Apixaban 5 MG TABLET PO ×2 (13:31→20:34)
[2024-04-21] MEDS: Metoprolol Succinate ER 25 MG TAB.ER.24H PO (13:32)
[2024-04-21] MEDS: 0.9 % Sodium Chloride Flush 3 ML SYRINGE IVFLUSH ×2 (15:46→20:35)
[2024-04-21] MEDS: Acetaminophen 325 MG TABLET 975 MG PO (15:46)
--- NOTE | 2024-04-21 15:55 | PC.NURSE ---
patient had C/O 5 out of 10 pain and she stated she only wanted tylenol. Dilaudid offered but she declined.
[2024-04-21] MEDS: Atorvastatin Calcium 80 MG TABLET PO (20:34)
[2024-04-21] MEDS: Melatonin 3 MG TABLET 9 MG PO (20:35)
[2024-04-21] MEDS: PARoxetine HCL 40 MG TABLET PO (20:35)
[2024-04-21] MEDS: Amiodarone HCL 200 MG TABLET PO (21:57)
[2024-04-22] MEDS: Piperacillin Sodium/Tazobactam 2.25 GM in 0.9 % Sodium Chloride 50 ML IV ×5 (00:34→23:50)
[2024-04-22] MEDS: Acetaminophen 325 MG TABLET 975 MG PO ×3 (00:36→20:54)
[2024-04-22 04:00] VITALS: BP 142/67; PULSE 75; RESP 18; TEMP 36; O2SAT 97
[2024-04-22] MEDS: Pantoprazole Sodium 40 MG/10 ML VIAL IVPUSH (06:04)
[2024-04-22] MEDS: Levothyroxine Sodium 50 MCG TABLET PO (06:04)
[2024-04-22 06:44] LABS: Hematocrit 26.3 % (37.0-47.0); Hemoglobin 8.5 g/dl (12.0-16.0); Mean Corpuscular HGB Conc 32.3 g/dl (31.0-35.0); Mean Corpuscular Hemoglobin 25.8 pg (27.0-33.0); Mean Corpuscular Volume 79.7 fL (80.0-98.0); Mean Platelet Volume 9.1 fL (9.4-12.3); Platelet Count 320 X10*3/uL (160-400); Red Cell Distribution Width 20.4 % (11.0-16.0); White Blood Count 17.5 X10*3/uL (4.8-10.8)
[2024-04-22 07:31] LABS: Anion Gap 13 (12-20); Blood Urea Nitrogen 19 mg/dL (9-16); Calcium 8.6 mg/dL (8.4-10.2); Carbon Dioxide 24 mmol/L (22-29); Chloride 104 mmol/L (96-108); Creatinine Clr Calc Pharmacy 32.8; Estimated Glomerular Filt Rate 35; Glucose Random 76 mg/dL (60-115); Potassium 3.4 mmol/L (3.3-5.1); Sodium 138 mmol/L (135-145)
[2024-04-22 07:59] VITALS: BP 132/61; PULSE 78; RESP 20; TEMP 36.1; O2SAT 99
[2024-04-22] MEDS: Clopidogrel Bisulfate 75 MG TABLET PO (09:08)
[2024-04-22 09:09] VITALS: BP 132/61; PULSE 78
[2024-04-22] MEDS: Cyanocobalamin (Vitamin B-12) 1,000 MCG TABLET 1000 MCG PO (09:09)
[2024-04-22] MEDS: Apixaban 5 MG TABLET PO ×2 (09:09→20:55)
[2024-04-22] MEDS: Cholecalciferol (Vitamin D3) 25 MCG TABLET PO (09:09)
[2024-04-22] MEDS: Furosemide 40 MG TABLET PO (09:09)
[2024-04-22] MEDS: Docusate Sodium 100 MG CAPSULE PO ×2 (09:09→20:54)
[2024-04-22] MEDS: Metoprolol Succinate ER 25 MG TAB.ER.24H PO (09:09)
[2024-04-22] MEDS: 0.9 % Sodium Chloride Flush 3 ML SYRINGE IVFLUSH ×2 (09:10→14:24)
[2024-04-22] MEDS: Lactulose 20 GM/30 ML SOLUTION 10 GM PO (09:10)
[2024-04-22 12:00] VITALS: BP 111/53; PULSE 58; RESP 18; TEMP 36.9; O2SAT 98
--- NOTE | 2024-04-22 15:20 | HO.SKINPHOTO ---
Location: Category: Stage: Length: Width: Depth: cm Location: Category: Stage: Length: Width: Depth: cm Location: Category: Stage: Length: Width: Depth: cm Location: Category: Stage: Length: Width: Depth: cm Location: Category: Stage: Length: Width: Depth: cm Location: Category: Stage: Length: Width: Depth: cm
--- NOTE | 2024-04-22 15:22 | P.PNIM_ITS ---
Subjective Subjective Date of Service: 04/22/24 Interval History: seen and evaluated this morning feels better overall no reported overnight events Review of Systems Review of Systems: Yes all other systems are reviewed and are negative Physical Exam 2 Vital Signs: Vital Signs: Last Vital Signs Temp 98.4 F 04/22/24 12:00 Pulse 58 04/22/24 12:00 Resp 18 04/22/24 12:00 BP 111/53 L 04/22/24 12:00 Pulse Ox 98 04/22/24 12:00 O2 Del Method Room Air 04/22/24 12:00 BMI result Body Mass Index 22.3 Const: Other: Constitutional : Awake, interactive, not in distress Neck : Normal inspection, Supple Cardiovascular : RRR, no JVP, no lower extremity edema Respiratory : good bilateral air entry, no crackles, wheezes or rhonchi Gastrointestinal: soft, lax, Normal bowel sounds, Non tender Skin : Warm, Dry Neurological : Alert & oriented x3, No focal deficit Objective Data Active Medications Acetaminophen (Acetaminophen 325 Mg Tablet) 975 mg PO Q6H PRN PRN Reason: Pain, Mild (Pain Scale 1-3), fever or headache Last Admin: 04/22/24 09:19 Dose: 975 mg Documented By: GIN Albuterol Sulfate (Albuterol Sulfate 90 Mcg 8 Gm Inhaler) 2 puff INHALE Q4H PRN PRN Reason: wheezing Amiodarone HCl (Amiodarone Hcl 200 Mg Tablet) 200 mg PO BEDTIME [facility] Last Admin: 04/21/24 21:57 Dose: 200 mg Documented By: JEFF Apixaban (Apixaban 5 Mg Tablet) 5 mg PO BID [facility] Last Admin: 04/22/24 09:09 Dose: 5 mg Documented By: GIN Atorvastatin Calcium (Atorvastatin Calcium 80 Mg Tablet) 80 mg PO BEDTIME [facility] Last Admin: 04/21/24 20:34 Dose: 80 mg Documented By: JEFF Bisacodyl (Bisacodyl 10 Mg Supp.Rect) 10 mg [place] DAILY PRN PRN Reason: Constipation Clopidogrel Bisulfate (Clopidogrel Bisulfate 75 Mg Tablet) 75 mg PO DAILY [facility] Last Admin: 04/22/24 09:08 Dose: 75 mg Documented By: GIN Cyanocobalamin (Cyanocobalamin (Vitamin B-12) 1,000 Mcg Tablet) 1,000 mcg PO DAILY [facility] Last Admin: 04/22/24 09:09 Dose: 1,000 mcg Documented By: GIN Docusate Sodium (Docusate Sodium 100 Mg Capsule) 100 mg PO BID [facility] Last Admin: 04/22/24 09:09 Dose: 100 mg Documented By: GIN Furosemide (Furosemide 40 Mg Tablet) 40 mg PO DAILY [facility]; Protocol Last Admin: 04/22/24 09:09 Dose: 40 mg Documented By: GIN Hydromorphone HCl (Hydromorphone Hcl 0.5 Mg/0.5 Ml Syringe) 0.5 mg IVPUSH Q3H PRN; Protocol PRN Reason: Pain, Severe (Pain Scale 7-10) Hydromorphone HCl (Hydromorphone Hcl 2 Mg Tablet) 1 mg PO Q4H PRN PRN Reason: Pain, Moderate(Pain Scale 4-6) Piperacillin Sod/Tazobactam (Sod 2.25 gm/ Sodium Chloride) 50 mls @ 100 mls/hr IV Q6H [facility] Last Infusion: 04/22/24 12:28 Dose: Infused Documented By: MIRANDA Lactulose (Lactulose 20 Gm/30 Ml Solution) 10 gm PO DAILY [facility] Last Admin: 04/22/24 09:10 Dose: 10 gm Documented By: GIN Levothyroxine Sodium (Levothyroxine Sodium 50 Mcg Tablet) 50 mcg PO DAILY@0600 [facility] Last Admin: 04/22/24 06:04 Dose: 50 mcg Documented By: JEFF Melatonin (Melatonin 3 Mg Tablet) 9 mg PO BEDTIME [facility] Last Admin: 04/21/24 20:35 Dose: 9 mg Documented By: JEFF Metoprolol Succinate (Metoprolol Succinate Er 25 Mg Tab.Er.24h) 25 mg PO DAILY [facility]; Protocol Last Admin: 04/22/24 09:09 Dose: 25 mg Documented By: GIN Non-Formulary Medication (Fluticasone Propion-Salmeterol) 1 inhalation INHALE RBID [facility] Pantoprazole Sodium (Pantoprazole Sodium 40 Mg/10 Ml Vial) 40 mg IVPUSH DAILY@0630 [facility] Last Admin: 04/22/24 06:04 Dose: 40 mg Documented By: JEFF Paroxetine HCl (Paroxetine Hcl 40 Mg Tablet) 40 mg PO BEDTIME [facility] Last Admin: 04/21/24 20:35 Dose: 40 mg Documented By: JEFF Potassium Chloride (Potassium Chloride Er 20 Meq Tab.Er.Prt) 20 meq PO DAILY [facility] Last Admin: 04/22/24 09:14 Dose: Not Given Documented By: GIN Non-Admin Reason: Patient Refused Prochlorperazine Edisylate (Prochlorperazine Edisylate 10 Mg/2 Ml Vial) 10 mg IVPUSH Q6H PRN PRN Reason: Nausea and Vomiting Last Admin: 04/21/24 04:33 Dose: 10 mg Documented By: PRINCE Sodium Biphosphate/Sodium Phosphate (Sodium Phosphate,Antelope-Dibasic 133 Ml Enema) 118 ml [place] DAILY PRN PRN Reason: Constipation Sodium Chloride (0.9 % Sodium Chloride Flush 3 Ml Syringe) 3 ml IVFLUSH QSHIFT [facility] Last Admin: 04/22/24 14:24 Dose: 3 ml Documented By: GIN Vitamin D (Cholecalciferol (Vitamin D3) 25 Mcg Tablet) 25 mcg PO DAILY [facility] Last Admin: 04/22/24 09:09 Dose: 25 mcg Documented By: GIN Labs 04/22/24 06:38 04/22/24 06:38 Labs: Laboratory Results - last 24 hr 04/22/24 06:38 MCV 79.7 L MCH 25.8 L MCHC 32.3 RDW 20.4 H Plt Count 320 MPV 9.1 L Absolute Nucleated RBC 0.000 Nucleated RBC % (auto) 0.0 Anion Gap 13 Estim Creat Clear Calc 32.8 Estimated GFR 35 Random Glucose 76 Calcium 8.6 Microbiology Microbiology Results: Microbiology 04/21/24 Unknown Urine Culture - Preliminary Urine clean catch - Urine mead top Gram negative jc 04/20/24 23:13 Blood Culture - Preliminary Blood - Venous No growth after 24 hours. 04/20/24 23:13 Blood Culture - Preliminary Blood - Venous No growth after 24 hours. Assessment and Plan (1) Acute pyelonephritis: Status: Acute (2) Sepsis: Status: Resolved Plan Alden Garcia is a 68 yo woman admitted with: # Sepsis 2/2 Acute pyelonephritis IV antibiotic therapy Blood and urine cultures pending # Elevated troponin, likely due to acute infectious process. Continue to monitor. # Chronic kidney disease, stage 3A. Continue to monitor renal function. Avoid nephrotoxic agents. # Recent left hip KATHERINE. No new symptoms. Participating with physiotherapy. # CAD. Continue Plavix. # Hyperlipidemia. Continue statin. # Atrial fibrillation, currently rate controlled. Telemetry. Continue Eliquis and metoprolol. # GERD. Continue PPI. # HFrEF + diastolic dysfunction. No signs of decompensation. # COPD. Not in acute exacerbation. Continue maintenance inhalers. # Hypothyroidism. Continue levothyroxine. DVT prophylaxis: On Eliquis. Code status: Full Patient will need hospitalization overnight for sepsis secondary to acute pyelonephritis treatment with IV antibiotics pending final blood cultures Quality Stroke Does the patient have a stroke diagnosis?: No VTE Prior VTE?: No VTE Risk Level:: Medical - moderate - high VTE Device Contraindication: Treatment Not Indicated VTE Drug Contraindication: N/A - Med Ordered
[2024-04-22 15:45] VITALS: BP 129/59; PULSE 58; RESP 18; TEMP 36.1; O2SAT 98
[2024-04-22 19:41] VITALS: BP 123/60; PULSE 69; RESP 18; TEMP 36.9; O2SAT 97
[2024-04-22] MEDS: PARoxetine HCL 40 MG TABLET PO (20:53)
[2024-04-22] MEDS: Atorvastatin Calcium 80 MG TABLET PO (20:53)
[2024-04-22] MEDS: Amiodarone HCL 200 MG TABLET PO (20:54)
[2024-04-22] MEDS: Melatonin 3 MG TABLET 9 MG PO (20:55)
[2024-04-22] MEDS: Prochlorperazine Edisylate 10 MG/2 ML VIAL IVPUSH (23:36)
[2024-04-23] VITALS (7 sets, daily range): BP systolic 117–128; BP diastolic 56–66; PULSE 60–68; RESP 16–18; TEMP 36.1–36.4; O2SAT 97–98
[2024-04-23] MEDS: HYDROmorphone HCl 0.5 MG/0.5 ML SYRINGE IVPUSH (01:30)
[2024-04-23] MEDS: Levothyroxine Sodium 50 MCG TABLET PO (06:28)
[2024-04-23] MEDS: Pantoprazole Sodium 40 MG/10 ML VIAL IVPUSH (06:28)
[2024-04-23] MEDS: Piperacillin Sodium/Tazobactam 2.25 GM in 0.9 % Sodium Chloride 50 ML IV ×2 (06:30→10:50)
[2024-04-23 10:41] LABS: Hematocrit 28.5 % (37.0-47.0); Mean Corpuscular HGB Conc 31.6 g/dl (31.0-35.0); Mean Corpuscular Hemoglobin 25.5 pg (27.0-33.0); Mean Corpuscular Volume 80.7 fL (80.0-98.0); Mean Platelet Volume 9.5 fL (9.4-12.3); Platelet Count 373 X10*3/uL (160-400); Red Blood Count 3.53 X10*6/uL (4.20-5.50); Red Cell Distribution Width 20.3 % (11.0-16.0); White Blood Count 10.9 X10*3/uL (4.8-10.8)
[2024-04-23] MEDS: 0.9 % Sodium Chloride Flush 3 ML SYRINGE IVFLUSH (10:48)
[2024-04-23] MEDS: Clopidogrel Bisulfate 75 MG TABLET PO (10:49)
[2024-04-23] MEDS: Cholecalciferol (Vitamin D3) 25 MCG TABLET PO (10:49)
[2024-04-23] MEDS: Furosemide 40 MG TABLET PO (10:49)
[2024-04-23] MEDS: Cyanocobalamin (Vitamin B-12) 1,000 MCG TABLET 1000 MCG PO (10:49)
[2024-04-23] MEDS: Lactulose 20 GM/30 ML SOLUTION 10 GM PO (10:50)
[2024-04-23] MEDS: Apixaban 5 MG TABLET PO (10:50)
[2024-04-23] MEDS: Docusate Sodium 100 MG CAPSULE PO (10:50)
[2024-04-23] MEDS: Metoprolol Succinate ER 25 MG TAB.ER.24H PO (10:50)
[2024-04-23 10:58] LABS: Anion Gap 13 (12-20); Blood Urea Nitrogen 18 mg/dL (9-16); Calcium 8.7 mg/dL (8.4-10.2); Carbon Dioxide 26 mmol/L (22-29); Chloride 105 mmol/L (96-108); Estimated Glomerular Filt Rate 31; Glucose Random 113 mg/dL (60-115); Sodium 141 mmol/L (135-145)
--- NOTE | 2024-04-23 11:08 | MHC.CM.PN ---
Patient stopped her private pay bed hold @ [facility] yesterday. Patient is medically cleared for dc today; [facility] is checking with their DON prior to approving Patient's return. [facility] would be Patient's second choice if [facility] is unable to take her back.CM will follow.
--- NOTE | 2024-04-23 12:07 | PM.DS ---
DS: Providers Provider Date of Service: 04/23/24 Date of admission: 04/21/24 03:41 Primary care physician: Amina Whitfield MD DS: Diagnosis Discharge Diagnosis (1) Acute pyelonephritis: Status: Acute (2) Sepsis: Status: Resolved DS: Summary Time Attestation Discharge Coordination Time (in mins): 39 Quality: Safe Use of Opioids Does Pt have an Active Cancer Diagnosis on the Problem List?: No Quality: Stroke Does the patient have a stroke diagnosis?: No Physical Exam Vital Signs: Vital Signs: Last Vital Signs Temp 97.4 F 04/23/24 11:35 Pulse 64 04/23/24 11:35 Resp 18 04/23/24 11:35 BP 128/60 04/23/24 11:35 Pulse Ox 98 04/23/24 11:35 O2 Del Method Room Air 04/23/24 11:35 BMI result Body Mass Index 22.3 DS: Data Data Completed and Pending Completed studies during hospitalization [Text1]: Procedures Replacement of Left Hip Joint with Ceramic Synthetic Substitute, Uncemented, Open Approach (03/30/24) Confucianist of Cardiac Rhythm, Single (09/13/21) Transfusion of Nonautologous Red Blood Cells into Peripheral Vein, Percutaneous Approach (03/30/24) Labs on day of discharge: Laboratory Results - last 24 hr 04/23/24 10:00 WBC 10.9 H RBC 3.53 L Hgb 9.0 L Hct 28.5 L MCV 80.7 MCH 25.5 L MCHC 31.6 RDW 20.3 H Plt Count 373 MPV 9.5 Absolute Nucleated RBC 0.000 Nucleated RBC % (auto) 0.0 Sodium 141 Potassium 3.0 L Chloride 105 Carbon Dioxide 26 Anion Gap 13 BUN 18 H Creatinine 1.63 H Estim Creat Clear Calc 30.0 Estimated GFR 31 Random Glucose 113 Calcium 8.7 Preliminary micro results at discharge 04/20/24 23:13 Blood Culture - Preliminary Blood - Venous No growth after 48 hours. 04/20/24 23:13 Blood Culture - Preliminary Blood - Venous No growth after 48 hours. Discharge Plan Discharge Anticipated Discharge Date/Time: 04/23/24 12:03 Patient Disposition: Xfer SNF Discharge Diagnosis: Sepsis secondary to pyelonephritis Referrals: [facility] [Outside] - 1 Week Amina Whitfield MD [Primary Care Provider] - 1 Week Discharge Medications: New cefuroxime axetil 500 mg tablet 500 mg PO BID Qty: 22 0RF Continued atorvastatin 80 mg tablet 80 mg PO BEDTIME Qty: 90 1RF clopidogrel 75 mg tablet 75 mg PO DAILY Qty: 90 3RF Eliquis 5 mg tablet 5 mg PO BID Qty: 180 3RF fluticasone propion-salmeterol 113-14 mcg/actuation aerosol powdr breath activated 1 inh inhalation Q12H 30 Days Qty: 1 1RF furosemide 20 mg tablet 40 mg PO DAILY 90 Days Qty: 180 0RF Protocol: Hold for SBP< HOLD for SBP < : 90 potassium chloride 20 mEq tablet extended release 20 meq PO DAILY Qty: 90 1RF cyanocobalamin (vitamin B-12) [Vitamin B-12] 1,000 mcg Tablet 1,000 mcg PO DAILY cholecalciferol (vitamin D3) [Vitamin D3] 25 mcg (1,000 unit) Tablet 25 mcg PO DAILY melatonin 10 mg Tablet 10 mg PO BEDTIME amiodarone 200 mg tablet 200 mg PO DAILY acetaminophen 500 mg Tablet 1,000 mg PO TID hydromorphone [Dilaudid] 2 mg Tablet 1 mg PO Q4H PRN (Reason: Pain) bisacodyl 10 mg Suppository 10 mg [place] DAILY PRN (Reason: Constipation) Fleet Enema 19-7 gram/118 mL Enema 118 ml [place] DAILY PRN (Reason: Constipation) docusate sodium [Colace] 100 mg Capsule 100 mg PO BID ondansetron 4 mg Tablet,Disintegrating 4 mg PO Q6H PRN (Reason: Nausea And Vomiting) lactulose 10 gram/15 mL Solution 15 ml PO DAILY Senna Plus 8.6-50 mg Capsule 2 tab-cap PO BID pantoprazole 40 mg tablet,delayed release (DR/EC) 40 mg PO DAILY@0630 albuterol sulfate 90 mcg/actuation HFA aerosol inhaler 2 puff inhalation Q4H PRN (Reason: wheezing) paroxetine HCl 40 mg tablet 40 mg PO BEDTIME metoprolol succinate 25 mg tablet extended release 24 hr 25 mg PO DAILY levothyroxine [Synthroid] 50 mcg tablet 50 mcg PO DAILY@0600 Discharge Orders: Discharge Order (Routine); Ordered 04/23/24 Ordered By: Sawyer Rogers Diet: Advance to usual diet Activity on Discharge: As tolerated Stand Alone Forms: Patient Portal Discharge page Print Language: Amharic Care Plan Goals: Continue Ceftin to finish total of 2 weeks of antibiotics. Health Concerns: Read below Plan of Treatment: Read below Assessment: Read below
--- NOTE | 2024-04-23 13:01 | MHC.CM.PN ---
Patient has been medically cleared for dc to [facility] today. Patient will return to [facility] today at 3 PM, via [facility]. Last IMM addressed on 04/21/2024. CM left a detailed message for HCP/Aliya @ [phone], informing her of the dc plan.
--- NOTE | 2024-04-26 14:46 | P.DS_ITS ---
DS: Providers Provider Date of Service: 05/23/24 Date of admission: 04/21/24 03:41 Primary care physician: Amina Whitfield MD DS: Diagnosis Discharge Diagnosis (1) Acute pyelonephritis: Status: Acute (2) Sepsis: Status: Resolved (3) Atrial fibrillation with rapid ventricular response: Status: Acute (4) Nausea: Status: Acute (5) Acute diarrhea: Status: Acute (6) Diarrhea due to drug: Status: Acute (7) Acute UTI: Status: Acute DS: Summary Hospital Course Hospital Course: Admission note HPI Alden Garcia is a very pleasant 68 years old woman with past medical history significant for recurrent UTIs, coronary artery disease status post stenting on Plavix, atrial fibrillation on Eliquis, GERD, HFrEF, essential hypertension, MS (controlled for many years), COPD and CKD was brought to the e mergency department due to nausea and dry heaves associated with lower abdominal pain, palpitations, fever and shortness of breath. Denied diarrhea, chest pain, headache, cough or dizziness. She recently underwent a left hip surgery and currently receiving treatment at rehab [facility]. Denied pain with urination or blood in urine. In the ED, she was found to have temperature of 102.5 degrees. Other vital signs are normal. Blood workup was remarkable for leukocytosis. There is no lactic acidosis. Hemoglobin is 9.7 and platelets 406. Creatinine is 1.42 (1.13, about couple of weeks ago). Troponin is 26.9. There are no significant electrolyte imbalances. Urinalysis consistent with UTI. Chest, abdomen pelvis CT scan showed no evidence of pulmonary emboli, moderate to severe left pelvicaliectasis and moderate left ureteral hydroureter with more mild right hydronephrosis with obstructive stone. ED tx: Zosyn 3.375 g IV, NS 1 L bolus, morphine 1 mg IV, Zofran 4 mg IV, acetaminophen 650 mg p.o., IV contrast, ceftriaxone 1 g IV Hospital course Discharge plan Physical Exam Vital Signs: Vital Signs: Last Vital Signs Temp 97.4 F 04/23/24 11:35 Pulse 64 04/23/24 12:45 Resp 18 04/23/24 11:35 BP 128/60 04/23/24 12:45 Pulse Ox 98 04/23/24 12:45 O2 Del Method Room Air 04/23/24 11:35 BMI result Body Mass Index 22.3 DS: Data Data Completed and Pending Completed studies during hospitalization [Text1]: Procedures Replacement of Left Hip Joint with Ceramic Synthetic Substitute, Uncemented, Open Approach (03/30/24) Hoahaoism of Cardiac Rhythm, Single (09/13/21) Transfusion of Nonautologous Red Blood Cells into Peripheral Vein, Percutaneous Approach (03/30/24) Discharge Plan Discharge Anticipated Discharge Date/Time: 04/23/24 12:03 Patient Disposition: Xfer SNF Discharge Diagnosis: Sepsis secondary to pyelonephritis Referrals: [facility] [Outside] - 1 Week Amina Whitfield MD [Primary Care Provider] - 1 Week Discharge Medications: New cefuroxime axetil 500 mg tablet 500 mg PO BID Qty: 22 0RF Rx Instructions: END DATE: 05/05/24 Continued atorvastatin 80 mg tablet 80 mg PO BEDTIME Qty: 90 1RF clopidogrel 75 mg tablet 75 mg PO DAILY Qty: 90 3RF Eliquis 5 mg tablet 5 mg PO BID Qty: 180 3RF fluticasone propion-salmeterol 113-14 mcg/actuation aerosol powdr breath activated 1 inh inhalation Q12H 30 Days Qty: 1 1RF furosemide 20 mg tablet 40 mg PO DAILY 90 Days Qty: 180 0RF Protocol: Hold for SBP< HOLD for SBP < : 90 potassium chloride 20 mEq tablet extended release 20 meq PO DAILY Qty: 90 1RF cyanocobalamin (vitamin B-12) [Vitamin B-12] 1,000 mcg Tablet 1,000 mcg PO DAILY cholecalciferol (vitamin D3) [Vitamin D3] 25 mcg (1,000 unit) Tablet 25 mcg PO DAILY melatonin 10 mg Tablet 10 mg PO BEDTIME amiodarone 200 mg tablet 200 mg PO DAILY acetaminophen 500 mg Tablet 1,000 mg PO TID hydromorphone [Dilaudid] 2 mg Tablet 1 mg PO Q4H PRN (Reason: Pain) bisacodyl 10 mg Suppository 10 mg NC DAILY PRN (Reason: Constipation) Fleet Enema 19-7 gram/118 mL Enema 118 ml NC DAILY PRN (Reason: Constipation) docusate sodium [Colace] 100 mg Capsule 100 mg PO BID lactulose 10 gram/15 mL Solution 15 ml PO DAILY Senna Plus 8.6-50 mg Capsule 2 tab-cap PO BID pantoprazole 40 mg tablet,delayed release (DR/EC) 40 mg PO DAILY@0630 albuterol sulfate 90 mcg/actuation HFA aerosol inhaler 2 puff inhalation Q4H PRN (Reason: wheezing) paroxetine HCl 40 mg tablet 40 mg PO BEDTIME metoprolol succinate 25 mg tablet extended release 24 hr 25 mg PO DAILY levothyroxine [Synthroid] 50 mcg tablet 50 mcg PO DAILY@0600 No Action magnesium hydroxide [Milk of Magnesia] 400 mg/5 mL Suspension 30 ml PO DAILY PRN (Reason: Constipation) Culturelle 10 billion cell Capsule 1 cap PO BID Rx Instructions: END DATE: 05/05/24 Discharge Orders: Discharge Order (Routine); Ordered 04/23/24 Ordered By: Sawyer Rogers Diet: Advance to usual diet Activity on Discharge: As tolerated Stand Alone Forms: Patient Portal Discharge page Print Language: Sinhala Care Plan Goals: Continue Ceftin to finish total of 2 weeks of antibiotics. Health Concerns: Read below Plan of Treatment: Read below Assessment: Read below Discharge Date/Time: 04/23/24 15:42
== END 2024-04-23 15:42 | disposition skilled nursing facility (03) | DRG 872 ==
LOC: HO.ED 04-21 03:05 → HO.EDOVER 04-21 03:47 → HO.IMC 04-21 07:54
PROVIDERS: Admitting Provider Internal Medicine; Emergency Provider Emergency Medicine; PCP Internal Medicine; Visit Provider Student in an Organized Health Care Education/Training Program
DX: A41.9 Sepsis, unspecified organism (principal); I50.22 Chronic systolic (congestive) heart failure; N13.6 Pyonephrosis; E03.9 Hypothyroidism, unspecified; N18.31 Chronic kidney disease, stage 3a; J44.9 Chronic obstructive pulmonary disease, unspecified; I25.10 Atherosclerotic heart disease of native coronary artery without angina pectoris; G35 Multiple sclerosis; Z95.5 Presence of coronary angioplasty implant and graft; I48.0 Paroxysmal atrial fibrillation; Z87.891 Personal history of nicotine dependence; Z96.642 Presence of left artificial hip joint; Z87.440 Personal history of urinary (tract) infections; Z79.01 Long term (current) use of anticoagulants; Z79.02 Long term (current) use of antithrombotics/antiplatelets; Z79.51 Long term (current) use of inhaled steroids; Z79.890 Hormone replacement therapy; Z79.899 Other long term (current) drug therapy
CPT/HCPCS: 0241U; 36415; 71045; 71275; 74177; 80048; 80053; 80076; 81001; 83605; 83690; 83735; 83880; 84132; 84484; 85025; 85027; 85379; 85610; 87040; 87086; 87088; 87186; 93005; 93306; 94640; 97162; 99285; C9113; J0696; J0737; J1170; J2270; J2405; J2543; J3480; J7120; Q9967

== ENCOUNTER → 2024-04-20 22:44 | Outpatient (BNV) | payer MEDICARE, BC, SELFPAY | PROVIDERS: Admitting Provider Internal Medicine; Emergency Provider Emergency Medicine; Visit Provider Internal Medicine Cardiovascular Disease | DX: R94.31 Abnormal electrocardiogram [ECG] [EKG] (principal) | CPT/HCPCS: 93010 ==

== ENCOUNTER → 2024-04-21 03:41 | Outpatient (BNV) | payer MEDICARE, BC, SELFPAY | PROVIDERS: Admitting Provider Internal Medicine; Emergency Provider Emergency Medicine; Visit Provider Internal Medicine | DX: A41.9 Sepsis, unspecified organism (principal); N10 Acute pyelonephritis | CPT/HCPCS: 99223; 99232; 99239; 99499 ==

== ENCOUNTER 2024-04-25 09:27 | Inpatient (IN) | payer MEDICARE, BC, SELFPAY ==
[2024-04-25] VITALS (10 sets, daily range): BP systolic 124–199; BP diastolic 78–113; PULSE 79–128; RESP 14–18; TEMP 36.4–36.6; O2SAT 94–100; BMI 22.8
--- NOTE | ~2024-04-25 | XR_ITS ---
EXAMINATION: XR CHEST CLINICAL INFORMATION: Nausea and vomiting COMPARISON: CT angiogram chest 04/21/2024, chest radiograph 10/15/2023 TECHNIQUE: Frontal view of the chest was obtained. FINDINGS: Heart size is borderline, slightly decreased in size when compared to 10/15/2023 no infiltrates, effusions or lung masses are seen degenerative changes are present in the right shoulder with probable rotator cuff disease. XR/XR chest 1V IMPRESSION: No acute intrathoracic disease. Borderline cardiomegaly.
--- NOTE | 2024-04-25 09:44 | ECG_ITS ---
Test Reason : N/V Blood Pressure : / mmHG Vent. Rate : 079 BPM Atrial Rate : 000 BPM P-R Int : 000 ms QRS Dur : 124 ms QT Int : 442 ms P-R-T Axes : 000 -03 159 degrees QTc Int : 506 ms Atrial fibrillation Left ventricular hypertrophy with QRS widening and repolarization abnormality ( Pierre product , Romhilt-Trujillo ) Abnormal ECG When compared with ECG of 20-APR-2024 22:42, Atrial fibrillation has replaced Sinus rhythm ST now depressed in Anterior leads T wave inversion now evident in Anterior leads Referred By: Pooja Chao Electronically Signed By:GARFIELD KNIGHT
--- NOTE | 2024-04-25 09:45 | ED_ITS ---
HPI - Nausea/Vomiting/Diarrhea General Chief complaint: Nausea/Vomiting/Diarrhea Stated complaint: N/V/D X 3 DAYS S/P ABX FOR UTI PER EMS Time Seen by Provider: 04/25/24 09:33 Source: patient, EMS and old records reviewed Mode of arrival: EMS Limitations: no limitations History of Present Illness ED Provider: DR. Chao HPI Narrative: 68-year-old female history of MS, COPD, CHF, cardiomyopathy, CAD, HTN, P 80, paroxysmal AFib on Eliquis, hypothyroidism, renal artery stenosis, is/B left THR came in from [facility] for evaluation of not feeling well, nauseous, vomiting, nonbloody watery diarrhea. Patient was recently discharged from the hospital for acute right pyelonephritis on cefuroxime. Patient now feels better, no abdominal pain, no nausea, no vomiting. Related Data Home Medications ?Medication ?Instructions ?Recorded ?Confirmed paroxetine HCl 40 mg tablet 40 mg PO BEDTIME 10/03/20 04/21/24 cholecalciferol (vitamin D3) 25 25 mcg PO DAILY 12/20/20 04/21/24 mcg (1,000 unit) tablet (Vitamin D3) cyanocobalamin (vitamin B-12) 1,000 mcg PO DAILY 12/20/20 04/21/24 1,000 mcg tablet (Vitamin B-12) melatonin 10 mg tablet 10 mg PO BEDTIME Insomnia 01/13/23 04/21/24 levothyroxine 50 mcg tablet 50 mcg PO DAILY@0600 09/02/23 04/21/24 (Synthroid) metoprolol succinate 25 mg 25 mg PO DAILY 12/25/23 04/21/24 tablet,extended release 24 hr pantoprazole 40 mg tablet,delayed 40 mg PO DAILY@0630 03/15/24 04/21/24 release albuterol sulfate 90 mcg/actuation 2 puff inhalation Q4H PRN wheezing 03/30/24 04/21/24 aerosol inhaler acetaminophen 500 mg tablet 1,000 mg PO TID 04/21/24 04/21/24 amiodarone 200 mg tablet 200 mg PO DAILY 04/21/24 04/21/24 bisacodyl 10 mg rectal suppository 10 mg DC DAILY PRN Constipation 04/21/24 04/21/24 docusate sodium 100 mg capsule 100 mg PO BID 04/21/24 04/21/24 (Colace) hydromorphone 2 mg tablet 1 mg PO Q4H PRN Pain 04/21/24 04/21/24 (Dilaudid) lactulose 10 gram/15 mL oral 15 ml PO DAILY 04/21/24 04/21/24 solution ondansetron 4 mg disintegrating 4 mg PO Q6H PRN Nausea And Vomiting 04/21/24 04/21/24 tablet sennosides 8.6 mg-docusate sodium 2 tab-cap PO BID 04/21/24 04/21/24 50 mg capsule (Senna Plus) sodium phosphates 19 gram-7 118 ml DC DAILY PRN Constipation 04/21/24 04/21/24 gram/118 mL enema (Fleet Enema) Previous Rx's ?Medication ?Instructions ?Recorded atorvastatin 80 mg tablet 80 mg PO BEDTIME #90 tabs 07/28/23 clopidogrel 75 mg tablet 75 mg PO DAILY #90 tabs 09/02/23 apixaban 5 mg tablet (Eliquis) 5 mg PO BID #180 tabs 02/05/24 fluticasone 113 mcg-salmeterol 14 1 inh inhalation Q12H copd 30 days 02/12/24 mcg/actuation breath activated #1 ea powdr furosemide 20 mg tablet 40 mg PO DAILY 90 days #180 tabs 03/16/24 potassium chloride 20 mEq 20 meq PO DAILY #90 tabs 03/29/24 tablet,extended release cefuroxime axetil 500 mg tablet 500 mg PO BID #22 tabs 04/23/24 Allergies Allergy/AdvReac Type Severity Reaction Status Date / Time codeine [Codeine] AdvReac Mild vomiting Verified 04/25/24 09:37 Review of Systems 2 Review of Systems: all other systems are reviewed and are negative Constitutional: Reports as per HPI and Reports no additional constitutional complaints Eyes: Reports as per HPI and Reports no additional eye complaints Reports system reviewed and no additional complaints, except as documented Cardiovascular: Reports as per HPI and Reports no additional cardiovascular complaints Respiratory: Reports as per HPI and Reports no additional respiratory complaints Gastrointestinal: Reports as per HPI and Reports no additional gastrointestinal complaints Genitourinary: Reports no additional female genitourinary complaints Musculoskeletal: Reports no additional musculoskeletal complaints Skin/Breast: Reports system reviewed and no additional complaints, except as docu Psychiatric: Reports no additional psychiatric complaints Endocrine: Reports no additional endocrine complaints Hematologic/Lymphatic: Reports no additional hematologic/lymphatic complaints Allergic/Immunologic: Reports no additional allergic/immunologic complaints Reports system reviewed and no additional complaints, except as documented and Reports Abnormal speech present [facility] Past Medical History Medical History Osteoarthritis of left hip Bilateral cataracts History of cardioversion Myocardial infarction Arthritis Hx of transfusion of packed red blood cells Thyroid disease GERD (gastroesophageal reflux disease) CKD (chronic kidney disease) On anticoagulant therapy History of smoking 30 or more pack years PAF (paroxysmal atrial fibrillation) Atrial fibrillation with rapid ventricular response Left renal artery stenosis Personal history of nicotine dependence Cardiomyopathy Essential hypertension Atherosclerotic cardiovascular disease Asymmetric blood pressures Acute on chronic systolic (congestive) heart failure CHF (congestive heart failure) CAD (coronary artery disease) Multiple sclerosis Pulmonary nodules COPD (chronic obstructive pulmonary disease) Peripheral arterial occlusive disease Surgical History History of endoscopy History of colonoscopy History of heart artery stent (~2018) Status post angioplasty with stent (~09/2018) S/P insertion of iliac artery stent (~02/2019) S/P cardiac cath (~12/2020) History of cholecystectomy (~02/2009) Family History Family History Father No problems noted. Mother No problems noted. Brother Diabetes Social History Social History Household Members: None Housing: [facility] Are you a primary geriatric care manager to a significant other at home: No Do you presently have visiting nurse or other home services: Yes Alcohol intake: never Comment: aware of trip hazard Patient Tobacco Use Status: Former Tobacco user Tobacco use type: Cigarette Smoked in Last 30 Days: No e-Cigarette/Vaping Use: Never Used Second Hand Smoke Exposure: No Use of substances other than those prescribed or required for medical reasons: No Advance Directives: No Advance Directives Information Provided: No Advance Directives Date on File: 12/27/20 Do you have a plan to hurt others: No Plan service: No Current occupational status: retired Cognitive needs: Yes (cane) Hearing needs: No Vision needs: Yes (reading glasses) Physical Exam 2 Vital Signs: Vital Signs: Last Vital Signs Temp 97.5 F 04/25/24 12:00 Pulse 87 04/25/24 12:00 Resp 15 04/25/24 12:00 BP 164/84 H 04/25/24 12:00 Pulse Ox 94 04/25/24 12:00 O2 Del Method Room Air 04/25/24 12:00 BMI result Body Mass Index 22.8 Vital signs have been reviewed and appear to be correct. Blood pressure elevated. Heart rate normal. Respiratory rate normal. Temperature normal. Oxygen saturation normal. Appearance: Alert. Oriented X3. No acute distress. Head: Normal external exam. Normocephalic. Atraumatic. No Granger signs noted. No raccoon eyes noted Eyes: PERRLA. EOMI. Conjunctiva and sclera normal. Eyelids normal. ENT: TM's Normal. Pharynx normal. Uvula midline. Moist mucous membranes. No trismus noted. No drooling noted. No muffled voice noted. Neck: Normal inspection. Neck supple. FROM. No adenopathy. Thyroid Normal. No meningeal signs. No neck mass noted. CVS: Normal heart rate and rhythm. Heart sound normal. No murmurs noted. Pulses normal throughout. Respiratory: No respiratory distress. Painless inspiration. Breath sounds normal. No wheezes/rales/rhonchi noted. Chest nontender. No accessory muscle usage noted or decreased air movement noted. Abdomen: Soft and nontender. Bowel sounds normal in all 4 quadrants. No distention noted. No organomegaly noted. No visible injury noted. Back: No CVA tenderness. Full range of motion noted. Skin: Skin warm and dry. Normal skin color. Normal skin turgor. No rashes/lesions/lacerations noted. Extremities: left hip replacement incision is dry, clean, and intact. Neuro: Oriented X 3. Cranial nerve exam: II-XII are grossly intact No motor deficit. No sensory deficit. Reflexes normal. Course Reevaluation(s) Reevaluation #1: 68-year-old female recently hospitalized for pyelonephritis and UTI patient was sent home on cefuroxime return with nausea, vomiting, and diarrhea. 1. Can not tolerate oral cefuroxime will switch to IV ceftriaxone. 2. Diarrhea after using oral antibiotic concern of C diff colitis will cover empirically with vancomycin until stool sample is available and tested for C diff. Time: 12:16 Medications Administered Discontinued Medications Generic Name Dose Route Start Last Admin Trade Name Ketanq PRN Reason Stop Dose Admin Sodium Chloride 1,000 mls @ 999 mls/hr 04/25/24 09:43 04/25/24 11:59 Ns IV 04/25/24 10:43 Infused .Q1H1M ONE Infusion Medical Decision Making Differential Diagnosis Differential Diagnoses: The differential diagnosis associated with the presentation includes ( dehydration, electrolyte derangement, oral antibiotic intolerance, antibiotic induced diarrhea, C diff colitis , pneumothorax, pleural effusion, pneumonia.) Admission/Observation Consideration of admission/observation: Escalation of care including admission/observation considered Consult Healthcare Provider Management of the patient was discussed with: Hospitalist ( Dr. Schaefer) Lab Data MDM Lab Attestation statement: I reviewed the patient's lab results. 04/25/24 09:58 04/25/24 09:57 Labs: Lab Results 04/25/24 04/25/24 04/25/24 Range/Units 09:57 09:58 10:16 WBC 9.2 (4.8-10.8) X10*3/uL RBC 3.98 L (4.20-5.50) X10*6/uL Hgb 9.9 L (12.0-16.0) g/dl Hct 32.1 L (37.0-47.0) % MCV 80.7 (80.0-98.0) fL MCH 24.9 L (27.0-33.0) pg MCHC 30.8 L (31.0-35.0) g/dl RDW 20.7 H (11.0-16.0) % Plt Count 504 H D (160-400) X10*3/uL MPV 8.8 L (9.4-12.3) fL Immature Gran % (Auto) 1.2 H (0.0-0.4) % Neut % (Auto) 78.3 H (45-73) % Lymph % (Auto) 12.8 L (20-40) % Cole % (Auto) 5.8 (2-11) % Eos % (Auto) 1.0 (0-4) % Baso % (Auto) 0.9 (0-2) % Lymph # (Auto) 1.2 (1.2-4.9) X10*3/uL Cole # (Auto) 0.5 (0.1-1.2) X10*3/uL Eos # (Auto) 0.1 (0.0-0.4) X10*3/uL Baso # (Auto) 0.1 (0.0-0.2) X10*3/uL Abs Immat Gran (auto) 0.11 H (0.00-0.03) X10*3/uL Absolute Neuts (auto) 7.2 (2.0-8.3) x10*3/uL Absolute Nucleated RBC 0.000 (0.0-0.012) X10*3/uL Nucleated RBC % (auto) 0.0 (0.0-0.2) /100WBC Sodium 143 (135-145) mmol/L Potassium 3.4 (3.3-5.1) mmol/L Chloride 107 (96-108) mmol/L Carbon Dioxide 24 (22-29) mmol/L Anion Gap 15 (12-20) BUN 16 (9-16) mg/dL Creatinine 1.42 H (0.5-1.4) mg/dL Estim Creat Clear Calc 34.5 Estimated GFR 37 Random Glucose 110 (60-115) mg/dL Lactic Acid 1.7 (0.5-2.0) mmol/L Calcium 9.4 D (8.4-10.2) mg/dL Total Bilirubin 0.3 (0.0-1.0) mg/dL Direct Bilirubin 0.1 (0.0-0.5) mg/dL AST 16 (5-31) U/L ALT 10 (0-31) U/L Alkaline Phosphatase 99 (39-117) U/L Troponin I High Sens 18.4 H (<3.5-17.0) ng/L Total Protein 6.8 (6.5-8.0) g/dL Albumin 2.9 L (3.5-5.0) g/dL Lipase 7 L (8-78) U/L Urine Color Yellow Urine Appearance Clear Urine pH 6.0 (5.0-9.0) Ur Specific [place] 1.010 (1.005-1.025) Urine Protein Trace (Neg-Trace) mg/dL Urine Glucose (UA) Negative (Negative) mg/dL Urine Ketones Negative (Negative) mg/dL Urine Blood Moderate (2+) H (Negative) Urine Nitrite Negative (Negative) Ur Leukocyte Esterase Large (3+) H (Negative) Urine RBC 11-20 H (0-2) /HPF Urine WBC 21-50 H (0-5) /HPF Ur Squamous Epith Cells 0-2 (0-2) /HPF Urine Bacteria None Seen (None Seen) Hyaline Casts 0-2 (0-2) /LPF Influenza Type A (PCR) NEGATIVE (Negative) Influenza Type B (PCR) NEGATIVE (Negative) RSV RNA Qual (PCR) NEGATIVE (Negative) SARS-CoV-2 RNA (RT-PCR) NEGATIVE (Negative) Independent Interpretation I performed an independent interpretation of an: Plain X-Ray ( chest: No acute intra thoracic pathology.) Radiology Impression Discussion of test interpretation with radiology: I have reviewed the radiologist's reading. Discharge Plan Discharge Clinical Impression: Acute UTI, Diarrhea due to drug, Antibiotic drug intolerance Patient Disposition: Admitted As Inpatient Print Language: Hungarian
[2024-04-25] MEDS: 0.9 % Sodium Chloride 1,000 ML 999 ML IV (10:00)
[2024-04-25 10:04] LABS: MANUAL DIFF FLAG NO
[2024-04-25 10:06] LABS: Basophils Absolute Auto 0.1 X10*3/uL (0.0-0.2); Basophils Percent Auto 0.9 % (0-2); Eosinophils Absolute Auto 0.1 X10*3/uL (0.0-0.4); Hematocrit 32.1 % (37.0-47.0); Hemoglobin 9.9 g/dl (12.0-16.0); Imm Gran Abs Auto 0.11 X10*3/uL (0.00-0.03); Imm Gran Pct Auto 1.2 % (0.0-0.4); Lymphocytes Absolute Auto 1.2 X10*3/uL (1.2-4.9); Lymphocytes Percent Auto 12.8 % (20-40); Mean Corpuscular HGB Conc 30.8 g/dl (31.0-35.0); Mean Corpuscular Hemoglobin 24.9 pg (27.0-33.0); Mean Corpuscular Volume 80.7 fL (80.0-98.0); Mean Platelet Volume 8.8 fL (9.4-12.3); Monocytes Absolute Auto 0.5 X10*3/uL (0.1-1.2); Monocytes Percent Auto 5.8 % (2-11); Neutrophils Absolute Auto 7.2 x10*3/uL (2.0-8.3); Neutrophils Percent Auto 78.3 % (45-73); Platelet Count 504 X10*3/uL (160-400); Red Blood Count 3.98 X10*6/uL (4.20-5.50); Red Cell Distribution Width 20.7 % (11.0-16.0); White Blood Count 9.2 X10*3/uL (4.8-10.8)
[2024-04-25 10:15] LABS: Lactic Acid 1.7 mmol/L (0.5-2.0)
--- NOTE | 2024-04-25 10:18 | PC.NURSE ---
mary arrives via EMS from [facility] where she is recieving rehab s/p hip replacement surgery. per EMS patient was seen and treated for a UTI in this ED 2 days ago and discharged with antibiotics, this morning the patient woke up and was nauseous and had 2 episodes of diarrhea. the facility called 911 due to the patient meeting sepsis criteria stating she was hypotensive and tachycardic. patient upon arrival HR 86, BP 137/83, patient afebrile at 97.5 orally,respirations 17, O2 99% on room air, thus not meeting sepsis criteria at this time. patient has no complaints at this time for this RN, states she feels fine and did not want to come. patient is alert and orientedx4, states she usually lives at home alone but is just at the SNF for rehab temporarily. patient respirations even and unlabored, abdomen is soft non tender, not nauseous at this time. denies abdominal pain, fevers or chills. placed on radiographer cardiac catheterization, EKG completed at bedside, VSS at this time, blood work drawn and sent at this time. patient resting comfortably on stretcher at this time, offering no complaints, awaiting results and eval
[2024-04-25 10:21] LABS: Alanine Aminotransferase 10 U/L (0-31); Albumin Level 2.9 g/dL (3.5-5.0); Alkaline Phosphatase 99 U/L (39-117); Anion Gap 15 (12-20); Aspartate Amino Transferase 16 U/L (5-31); Bilirubin Direct 0.1 mg/dL (0.0-0.5); Bilirubin Total 0.3 mg/dL (0.0-1.0); Blood Urea Nitrogen 16 mg/dL (9-16); Calcium 9.4 mg/dL (8.4-10.2); Carbon Dioxide 24 mmol/L (22-29); Chloride 107 mmol/L (96-108); Creatinine Clr Calc Pharmacy 34.5; Estimated Glomerular Filt Rate 37; Glucose Random 110 mg/dL (60-115); Lipase 7 U/L (8-78); Potassium 3.4 mmol/L (3.3-5.1); Sodium 143 mmol/L (135-145); Total Protein 6.8 g/dL (6.5-8.0)
[2024-04-25 10:24] LABS: Appearance Urine Clear; Color Urine Yellow; Glucose Urine UA Negative (Negative); Leukocyte Esterase Urine Large (3+) (Negative); Nitrite Urine Negative (Negative); UMIC TRIGGER UACC YES; Urine Blood Moderate (2+) (Negative); Urine Ketones Negative (Negative); Urine Protein Trace mg/dL (Neg-Trace)
[2024-04-25 10:26] LABS: Bacteria Urine None Seen (None Seen); Hyaline Casts Urine 0-2 /LPF (0-2); Squamous Epithelial Cell Urine 0-2 /HPF (0-2); UACC Culture Trigger YES; WBC Urine 21-50 /HPF (0-5)
[2024-04-25 10:27] LABS: Troponin-I High Sensitivity 18.4 ng/L (<3.5-17.0)
--- NOTE | 2024-04-25 10:27 | PC.NURSE ---
patient unable to provide stool sample at this time
[2024-04-25 10:59] LABS: Influenza A PCR NEGATIVE (Negative); Influenza B PCR NEGATIVE (Negative); Resp Syncy Virus RNA Qual PCR NEGATIVE (Negative); SARS COV2 PCR INHOUSE NEGATIVE (Negative)
--- NOTE | 2024-04-25 12:25 | MHC.EDTECH ---
pt vital signs checked at 1200, pt was sleeping, resting, call smith within reach.
[2024-04-25] MEDS: cefTRIAXone sodium 1 GM in 0.9 % Sodium Chloride 50 ML IV (12:26)
[2024-04-25] MEDS: vancomycin HCL 125 MG CAPSULE 250 MG PO (12:26)
--- NOTE | 2024-04-25 13:13 | PHA.MEDREC ---
Pharmacy Consult ? Medication Reconciliation Pharmacy has completed the medication reconciliation List from [facility]..
--- NOTE | 2024-04-25 13:33 | P.HPHOSP_ITS ---
History of Present Illness Date of Service: 04/25/24 Attending physician on admission: Ananth Schaefer Chief Complaint: n,v, diaphoresis 68-year-old female with history of multiple sclerosis, COPD, CHF, cardiomyopathy, coronary artery disease, hypertension, PAD, paroxysmal atrial fibrillation anticoagulated with Eliquis, hypothyroidism, renal artery stenosis who is a former smoker presented to the ED earlier today for evaluation of diaphoresis, malaise, nausea, and dry heaves that started this morning. She has not been tolerating PO. She was recently admitted from 04/21-04/23 for acute pyelonephritis treated with ceftriaxone and discharged on cefuroxime. Pt reports she was feeling well until this morning. Does report chronic constipation and has been getting multiple medications for constipation including lactulose. Reports yesterday had two episodes of diarrhea but no recurrence today. No fevers, chills, abd pain, vomiting, melena, hematochezia, urinary symptoms, lightheadedness, palpitations, sob, chest pain. Since arrival, VSS though hypertensive to 175/92 on admission. She has been intermittently tachycardic in the low 100s noted to be in Afib on the tele monitor. EKG shows afib, rate 79, wtih ST depressions noted in anterior leads as well as inversions. Initial trop 18, repeat 19. No leukocytosis. Stable normocytic anemia. Renal function baseline, lytes wnl. UA with 3+ leuks, 2+ blood, +urinary sediment, no bacteria. CXR negative for acute cardiopulmonary abnormality. In the ED, has been given IV NS, IV ctx (in place of cefuroxime given PO intolerance), and po vanco given diarrhea episodes in setting of recent antibiotic use. Review of Systems 2 Review of Systems: Yes all other systems are reviewed and are negative [facility] Medical History (Updated 04/25/24 @ 15:59 by KARLY Ford) Atrial fibrillation with rapid ventricular response Osteoarthritis of left hip Bilateral cataracts History of cardioversion Myocardial infarction Arthritis Hx of transfusion of packed red blood cells Thyroid disease GERD (gastroesophageal reflux disease) CKD (chronic kidney disease) On anticoagulant therapy History of smoking 30 or more pack years PAF (paroxysmal atrial fibrillation) Left renal artery stenosis Personal history of nicotine dependence Cardiomyopathy Essential hypertension Atherosclerotic cardiovascular disease Asymmetric blood pressures Acute on chronic systolic (congestive) heart failure CHF (congestive heart failure) CAD (coronary artery disease) Multiple sclerosis Pulmonary nodules COPD (chronic obstructive pulmonary disease) Peripheral arterial occlusive disease Family History Father No problems noted. Mother No problems noted. Brother Diabetes Surgical History History of endoscopy History of colonoscopy History of heart artery stent (~2018) Status post angioplasty with stent (~09/2018) S/P insertion of iliac artery stent (~02/2019) S/P cardiac cath (~12/2020) History of cholecystectomy (~02/2009) Social History Household Members: None Housing: House Housing Other:: Sent in [facility] Are you a primary career guidance counselor to a significant other at home: No Do you presently have visiting nurse or other home services: Yes Alcohol intake: never Comment: aware of trip hazard Patient Tobacco Use Status: Former Tobacco user Tobacco use type: Cigarette Smoked in Last 30 Days: No e-Cigarette/Vaping Use: Never Used Second Hand Smoke Exposure: No Use of substances other than those prescribed or required for medical reasons: No Advance Directives: No Advance Directives Information Provided: No Advance Directives Date on File: 12/27/20 Do you have a plan to hurt others: No Plan service: No Current occupational status: retired Cognitive needs: Yes (cane) Hearing needs: No Vision needs: Yes (reading glasses) Meds Allergies Allergy/AdvReac Type Severity Reaction Status Date / Time codeine [Codeine] AdvReac Mild vomiting Verified 04/25/24 09:37 Home Medications ?Medication ?Instructions ?Recorded ?Confirmed ?Last Taken ?Type paroxetine HCl 40 mg tablet 40 mg PO BEDTIME 10/03/20 04/25/24 03/29/24 History cholecalciferol (vitamin D3) 25 25 mcg PO DAILY 12/20/20 04/25/24 03/29/24 History mcg (1,000 unit) tablet (Vitamin D3) cyanocobalamin (vitamin B-12) 1,000 mcg PO DAILY 12/20/20 04/25/24 03/29/24 History 1,000 mcg tablet (Vitamin B-12) melatonin 10 mg tablet 10 mg PO BEDTIME Insomnia 01/13/23 04/25/24 03/29/24 History levothyroxine 50 mcg tablet 50 mcg PO DAILY@0600 09/02/23 04/25/24 03/29/24 History (Synthroid) metoprolol succinate 25 mg 25 mg PO DAILY 12/25/23 04/25/24 03/29/24 History tablet,extended release 24 hr pantoprazole 40 mg tablet,delayed 40 mg PO DAILY@62903/15/24 04/25/24 03/29/24 History release albuterol sulfate 90 mcg/actuation 2 puff inhalation Q4H PRN wheezing 03/30/24 04/25/24 Unknown History aerosol inhaler acetaminophen 500 mg tablet 1,000 mg PO TID 04/21/24 04/25/24 Unknown History amiodarone 200 mg tablet 200 mg PO DAILY 04/21/24 04/25/24 Unknown History bisacodyl 10 mg rectal suppository 10 mg IA DAILY PRN Constipation 04/21/24 04/25/24 Unknown History docusate sodium 100 mg capsule 100 mg PO BID 04/21/24 04/25/24 Unknown History (Colace) hydromorphone 2 mg tablet 1 mg PO Q4H PRN Pain 04/21/24 04/25/24 Unknown History (Dilaudid) lactulose 10 gram/15 mL oral 15 ml PO DAILY 04/21/24 04/25/24 Unknown History solution sennosides 8.6 mg-docusate sodium 2 tab-cap PO BID 04/21/24 04/25/24 Unknown History 50 mg capsule (Senna Plus) sodium phosphates 19 gram-7 118 ml IA DAILY PRN Constipation 04/21/24 04/25/24 Unknown History gram/118 mL enema (Fleet Enema) Lactobacillus rhamnosus GG 10 1 cap PO BID 04/25/24 04/25/24 Unknown History billion cell capsule (Culturelle) magnesium hydroxide 400 mg/5 mL 30 ml PO DAILY PRN Constipation 04/25/24 04/25/24 Unknown History oral suspension (Milk of Magnesia) Physical Exam 2 Vital Signs and Narrative: Vital Signs: Last Vital Signs Temp 97.5 F 04/25/24 12:00 Pulse 87 04/25/24 12:00 Resp 15 04/25/24 12:00 BP 164/84 H 04/25/24 12:00 Pulse Ox 94 04/25/24 12:00 O2 Del Method Room Air 04/25/24 12:00 BMI result Body Mass Index 22.8 Constitutional - Awake and Alert, No apparent distress Eyes - PERRLA, EOMI Cardiovascular - S1S2, RRR, No edema Respiratory - Normal lung expansion, Normal respiratory effort, No respiratory distress, CTA bilaterally Gastrointestinal - NT / ND; +BS; No rebound or guarding Extremities - no calf tenderness bilaterally, no swelling Skin - Warm/Dry Neurological - Alert & oriented x3 Psychological - Appropriate affect Results Labs 04/25/24 09:58 04/25/24 09:57 Labs: Laboratory Results - last 24 hr 04/25/24 04/25/24 04/25/24 09:57 09:58 10:16 MCV 80.7 MCH 24.9 L MCHC 30.8 L RDW 20.7 H Plt Count 504 H D MPV 8.8 L Immature Gran % (Auto) 1.2 H Neut % (Auto) 78.3 H Lymph % (Auto) 12.8 L [place] % (Auto) 5.8 Eos % (Auto) 1.0 Baso % (Auto) 0.9 Lymph # (Auto) 1.2 [place] # (Auto) 0.5 Eos # (Auto) 0.1 Baso # (Auto) 0.1 Abs Immat Gran (auto) 0.11 H Absolute Neuts (auto) 7.2 Absolute Nucleated RBC 0.000 Nucleated RBC % (auto) 0.0 Anion Gap 15 Estim Creat Clear Calc 34.5 Estimated GFR 37 Random Glucose 110 Lactic Acid 1.7 Calcium 9.4 D Total Bilirubin 0.3 Direct Bilirubin 0.1 AST 16 ALT 10 Alkaline Phosphatase 99 Troponin I High Sens 18.4 H Total Protein 6.8 Albumin 2.9 L Lipase 7 L Urine Color Yellow Urine Appearance Clear Urine pH 6.0 Ur Specific [place] 1.010 Urine Protein Trace Urine Glucose (UA) Negative Urine Ketones Negative Urine Blood Moderate (2+) H Urine Nitrite Negative Ur Leukocyte Esterase Large (3+) H Urine RBC 11-20 H Urine WBC 21-50 H Ur Squamous Epith Cells 0-2 Urine Bacteria None Seen Hyaline Casts 0-2 Influenza Type A (PCR) NEGATIVE Influenza Type B (PCR) NEGATIVE RSV RNA Qual (PCR) NEGATIVE SARS-CoV-2 RNA (RT-PCR) NEGATIVE Imaging Radiologist's Impressions: Impressions Chest X-Ray 04/25/24 10:52 IMPRESSION: No acute intrathoracic disease. Borderline cardiomegaly. Assessment and Plan (1) Acute diarrhea: Status: Acute (2) Nausea: Status: Acute (3) Atrial fibrillation with rapid ventricular response: Status: Acute Plan 68-year-old female with history of multiple sclerosis, COPD, CHF, cardiomyopathy, coronary artery disease, hypertension, PAD, paroxysmal atrial fibrillation anticoagulated with Eliquis, hypothyroidism, renal artery stenosis who is a former smoker admitted for further management of afib rvr in the setting of gi losses/poor po intake #Paroxysmal atrial fibrillation with rvr- rates up to low 100s noted on tele monitor -rate controlled on admission, suspect r/t dehydration -continue ivf -continue amiodarone -resume PO metoprolol -continue eliquis for ac -monitor on telemetry #Acute nausea/diarrhea with PO intolerance -No diarrhea since yesterday. Less suspicious of cdiff. However, given recent abx use, check cdiff PCP. Will also check GI panel -Continue IVF -clear liquid diet, advance as tolerated -antiemetics prn -hold anti constipation medications for now #Elevated trops/ST depresssions -no chest pain, but here with nausea/diaphoresis/dry heaves -Trops flat 18--> 19. EKG with ST depressions in lateral leads -Continue eliquis for AC, continue plavix, bb, statin -echo -cardiology consult -monitor on tele #CAD/CM -as above #HFrEF -clinically euvolemic -cotninue po diuretics #COPD -no exacerbation -continue maintenance inhalers, albuterol prn #hypothyroidism -levothyroxine #Chronic constipation -hold anti-constipation meds given diarrhea yesterday, resume as indicated DVT prophylaxis- eliquis Full code Pt requries inpt stay at least 2 midnights due to atrial fibrillation with RVR in setting of dehydration/poor PO requiring IVF and diet advancement with cardiac monitoring and monitorin of renal function/lytes. Of note, also has new st depressions with elevated but flat troponins necessitating echo and expert consultation Quality Stroke Does the patient have a stroke diagnosis?: No VTE Prior VTE?: No VTE Risk Level:: Medical - moderate - high VTE Device Contraindication: Treatment Not Indicated VTE Drug Contraindication: N/A - Med Ordered
--- NOTE | 2024-04-25 14:09 | MHC.EDTECH ---
Patients vital signs checked, belonging list made, call smith within reach, pt aware that she will be admitted, no questions asked.
[2024-04-25 15:14] LABS: Troponin-I High Sensitivity 19.8 ng/L (<3.5-17.0)
[2024-04-25] MEDS: Metoprolol Succinate ER 25 MG TAB.ER.24H PO (15:51)
[2024-04-25] MEDS: 0.9 % Sodium Chloride 1,000 ML 100 ML IVCONT (15:55)
--- NOTE | 2024-04-25 16:12 | MHC.EDTECH ---
pt vital signs checked, pt resting quietly, call smith within reach.
--- NOTE | 2024-04-25 18:49 | PC.NURSE ---
Provider notified of elevated BP`s. Patient at baseline. sitting up in bed with no complaints of pain
--- NOTE | 2024-04-25 18:57 | PC.NURSE ---
Provider notified of elevated BP`s
--- NOTE | 2024-04-25 18:57 | MHC.EDTECH ---
pt vital signs checked at 1800, pt resting, asking when she will be moved upstairs, call smith within reach.
--- NOTE | 2024-04-25 19:36 | PC.NURSE ---
assumed care of pt at 1900
[2024-04-25] MEDS: amLODIPine Besylate 10 MG TABLET PO (19:58)
[2024-04-25] MEDS: Melatonin 3 MG TABLET 9 MG PO (20:00)
[2024-04-25] MEDS: Atorvastatin Calcium 80 MG TABLET PO (20:00)
[2024-04-25] MEDS: PARoxetine HCL 40 MG TABLET PO (20:00)
[2024-04-25] MEDS: Apixaban 5 MG TABLET PO (20:01)
--- NOTE | 2024-04-25 20:03 | PC.NURSE ---
pt medicated with bedtime medications per dec. pt resting comfortably on stretcher in no apparent distress, afib on quality assurance monitor body, HR approx 90-100. answering questions appropriately, denies pain, denies having any loose/watery BM today. pt waiting for bed upstairs. call smith within reach, plan of care ongoing
[2024-04-25] MEDS: ondansetron HCL 4 MG/2 ML VIAL IVPUSH (22:47)
--- NOTE | 2024-04-25 22:51 | MHC.EDTECH ---
pt called room and asked to change her sheets which were wet, I did that and applied purevick- per RN order. Pt whole bed changed, call within reach.
--- NOTE | 2024-04-25 22:52 | MHC.EDTECH ---
pt stated she is nauseated and hot, temp 98.1, RN notified.
[2024-04-26] VITALS (10 sets, daily range): BP systolic 113–169; BP diastolic 66–85; PULSE 78–104; RESP 16–20; TEMP 36.1–37.2; O2SAT 94–99; BMI 22.8
[2024-04-26] MEDS: 0.9 % Sodium Chloride 1,000 ML 100 ML IVCONT ×3 (01:30→21:01)
--- NOTE | 2024-04-26 03:09 | PC.NURSE ---
Pt arrived from ED on a stretcher w/belongings. She is AOx3, able to make her needs known. Pt states 04/24 was LBM and it was diarrhea. States prior to this illness she was at rehab, having had her left hip replaced on 03/30/2024 (surgical site CDI). Pt states at [facility] she was independent w/walker until this illness. RA, lungs clear. She is on afib on tele. Stage 2 on coccyx, cleansed, protective foam dsg applied. She has no c/o pain at this time. Call smith with in reach, oriented to room and call smith. Bed alarm on. Safety maintained throughout shift.
[2024-04-26] MEDS: Levothyroxine Sodium 50 MCG TABLET PO (06:05)
[2024-04-26] MEDS: Pantoprazole Sodium 20 MG TABLET.DR 40 MG PO (06:05)
[2024-04-26 06:42] LABS: MANUAL DIFF FLAG NO
[2024-04-26 06:46] LABS: Basophils Absolute Auto 0.1 X10*3/uL (0.0-0.2); Basophils Percent Auto 1.2 % (0-2); Eosinophils Absolute Auto 0.1 X10*3/uL (0.0-0.4); Eosinophils Percent Auto 1.4 % (0-4); Hematocrit 29.1 % (37.0-47.0); Imm Gran Abs Auto 0.15 X10*3/uL (0.00-0.03); Imm Gran Pct Auto 1.6 % (0.0-0.4); Lymphocytes Absolute Auto 1.7 X10*3/uL (1.2-4.9); Lymphocytes Percent Auto 18.2 % (20-40); Mean Corpuscular HGB Conc 30.9 g/dl (31.0-35.0); Mean Corpuscular Hemoglobin 25.1 pg (27.0-33.0); Mean Corpuscular Volume 81.3 fL (80.0-98.0); Monocytes Absolute Auto 0.6 X10*3/uL (0.1-1.2); Monocytes Percent Auto 6.5 % (2-11); Neutrophils Absolute Auto 6.8 x10*3/uL (2.0-8.3); Neutrophils Percent Auto 71.1 % (45-73); Platelet Count 449 X10*3/uL (160-400); Red Blood Count 3.58 X10*6/uL (4.20-5.50); White Blood Count 9.5 X10*3/uL (4.8-10.8)
--- NOTE | 2024-04-26 07:00 | CA_ITS ---
Transthoracic Echocardiogram Patient (Last, First, Middle): Alden Garcia S Gender: Female Date of : 1955 Age: 68 Procedure Date: 04/26/2024 Procedure Type: Transthoracic Echocardiogram Location: [facility] [place] Height: 167.64 cm Weight: 63.96 kg BSA: 1.72 m2 Heart Rate: bpm BP: 113 / 77 mmHg Substation Operator Chief: ROBERT Referring MD: Autumn BRANDT Symptoms: st depressions, elevated trops Study Quality: Good ECG Rhythm: Atrial Fibrillation Conclusions: - The left ventricular systolic function is mildly decreased. The visually estimated ejection fraction is between 40-45%. - There is evidence of regional wall motion abnormalities. - The left atrium is severely dilated. - There is moderate mitral valve regurgitation. Findings Left Ventricle Normal left ventricular cavity size. There is normal left ventricular wall thickness. The left ventricular systolic function is mildly decreased. The visually estimated ejection fraction is between 40-45%. There is evidence of regional wall motion abnormalities. Diastolic function is indeterminate on the basis of available data. Wall Motion Rest Echo Findings The inferolateral wall and apical septum segment are hypokinetic. The basal inferior and basal inferoseptal segments are akinetic. Right Ventricle Normal right ventricular cavity size. There is mildly decreased right ventricular systolic function. Atria The left atrium is severely dilated. The right atrium is mildly dilated. Aortic Valve There is a normal trileaflet aortic valve. There is no aortic valve stenosis. There is no aortic valve regurgitation. Mitral Valve The posterior mitral leaflet has restricted mobility. There is mild mitral annular calcification. There is moderate mitral valve regurgitation. There is no mitral valve stenosis. Pulmonic Valve The pulmonic valve is likely normal. Tricuspid Valve Normal tricuspid valve structure. There is mild tricuspid valve regurgitation. Borderline pulmonary artery systolic pressure. Great Vessels The asc aorta is normal in size. Venous The inferior vena cava is normal in size and collapses greater than 50% with inspiration. Pericardium/Pleural There is no evidence of pericardial effusion. Prior Study Comparison No significant change compared to prior study dated: 09/22/2023. Measurements 2D Linear Measurements IVSd: 0.97 0.6-0.9/0.6-1.0 cm LVIDd: 4.72 3.9-5.3/4.2-5.9 cm LVIDd Index: 2.74 2.4-3.2/2.2-3.1 cm/m2 LVIDs: 3.79 2.0-3.6 cm LVPWd: 1.07 0.7-1.1 cm LA Diam: 4.30 2.7-3.8/3.0-4.0 cm LAIDs Index: 2.50 1.5-2.3 cm/m2 LV Mass: 211.48 67-162/88-224 g LV Mass Index: 122.96 43-95/49-115 g/m2 LVOT Diam: 2.00 3.0+(-)1.3 cm 2D Systolic Function EF 4C: 45.10 >55% EF 2C: 43.80 >55% EF BiP: 45.60 >55% Mitral Valve MV Pk E: 1.22 MV PK A: 0.39 MV Decel Time: 147.00 E/A: 3.20 E'Lateral: 8.09 E'Medial: 4.90 E/E' Med: 24.90 E/E' Lat: 15.10 PHT: 43.00 MVA PHT: 5.12 Decel [place]: 8.50 Aortic Valve AoV Pk Master: 1.14 AoV Pk Grad: 5.00 LVOT LVOT Pk Master: 0.80 LVOT Pk Grad: 3.00 LVOT Diam: 2.00 LVOT Area: 3.14 Diastolic Function MV Pk E: 1.22 MV Pk A: 0.39 E/A: 3.20 E'Medial: 4.90 E/E' Med: 24.90 E' Laterial: 8.09 E/E' Lat: 15.10 Right Ventricle TAPSE (mm): 18.00 TVS' Master: 8.00 Tricuspid Valve TR Pk Master: 2.91 TR Pk Grad: 34.00 RA Press: 3.00 RVSP: 37.00 Great Vessels Aorta Ao Asc: 2.90 2.1-3.4 cm Updated in Other Vendor System with Status of Final John Lizama MD electronically signed on 04/26/2024 12:25:03 PM with status of Final
[2024-04-26 07:04] LABS: Anion Gap 13 (12-20); Blood Urea Nitrogen 12 mg/dL (9-16); Calcium 8.5 mg/dL (8.4-10.2); Carbon Dioxide 21 mmol/L (22-29); Chloride 112 mmol/L (96-108); Creatinine Clr Calc Pharmacy 41.5; Estimated Glomerular Filt Rate 45; Glucose Random 92 mg/dL (60-115); Sodium 143 mmol/L (135-145)
[2024-04-26] MEDS: Amiodarone HCL 200 MG TABLET PO (09:23)
[2024-04-26] MEDS: Clopidogrel Bisulfate 75 MG TABLET PO (09:23)
[2024-04-26] MEDS: Metoprolol Succinate ER 25 MG TAB.ER.24H PO (09:26)
[2024-04-26] MEDS: Furosemide 40 MG TABLET PO (09:30)
--- NOTE | 2024-04-26 09:30 | PM.CNCAR ---
History of Present Illness History of Present Illness Date of Service: 04/26/24 Chief complaint: afib rvr, n/v/d, po intolerance Narrative: This is a cardiology consultation regarding abnormal EKG. Patient is known to us and we have seen her in hospital as well as in the outpatient setting. Current admissions because of GI symptoms including nausea, dry heaving diarrhea. In this context, she has been found to be in atrial fibrillation the EKG. She has a history of paroxysmal atrial fibrillation and undergone prior cardioversion. Remains on amiodarone. She does feel some chest fluttering but otherwise no clear-cut cardiac symptoms otherwise. Generally weak and nonspecific malaise. Review of Systems Review of Systems: Yes all other systems are reviewed and are negative Constitutional: Constitutional: Reports as per HPI, Reports no additional constitutional complaints, Reports fatigue, Reports lethargy and Reports malaise Eyes: Eyes: Reports as per HPI and Denies no additional eye complaints ENT: Denies system reviewed and no additional complaints, except as documented and Reports as per HPI Cardiovascular: Cardiovascular: Reports as per HPI, Reports no additional cardiovascular complaints, Denies acrocyanosis, Denies cool extremities, Denies chest pain, Denies leg edema, Denies lightheadedness, Denies palpitations and Denies dyspnea Respiratory: Respiratory: Reports as per HPI, Denies no additional respiratory complaints and Denies dyspnea Gastrointestinal: Gastrointestinal: Reports as per HPI and Denies no additional gastrointestinal complaints Genitourinary: Genitourinary: Reports as per HPI Musculoskeletal: Musculoskeletal: Reports no additional musculoskeletal complaints and Reports as per HPI Integumentary/Breasts: Skin/Breast: Reports system reviewed and no additional complaints, except as docu Neurologic: Reports system reviewed and no additional complaints, except as documented and Reports as per HPI Psychiatric: Psychiatric: Reports no additional psychiatric complaints and Reports as per HPI Endocrine: Endocrine: Reports no additional endocrine complaints, Reports as per HPI, Reports fatigue and Denies palpitations Hematologic/Lymphatic: Hematologic/Lymphatic: Reports no additional hematologic/lymphatic complaints and Reports as per HPI Allergic/Immunologic: Allergic/Immunologic: Reports no additional allergic/immunologic complaints and Reports as per HPI PMF Past Medical History Medical History (Updated 04/26/24 @ 09:34 by John Lizama MD) Atrial fibrillation with rapid ventricular response Osteoarthritis of left hip Bilateral cataracts History of cardioversion Myocardial infarction Arthritis Hx of transfusion of packed red blood cells Thyroid disease GERD (gastroesophageal reflux disease) CKD (chronic kidney disease) On anticoagulant therapy History of smoking 30 or more pack years PAF (paroxysmal atrial fibrillation) Left renal artery stenosis Personal history of nicotine dependence Cardiomyopathy Essential hypertension Atherosclerotic cardiovascular disease Asymmetric blood pressures Acute on chronic systolic (congestive) heart failure CHF (congestive heart failure) CAD (coronary artery disease) Multiple sclerosis Pulmonary nodules COPD (chronic obstructive pulmonary disease) Peripheral arterial occlusive disease Family History Family History Father No problems noted. Mother No problems noted. Brother Diabetes Surgical History Surgical History History of endoscopy History of colonoscopy History of heart artery stent (~2018) Status post angioplasty with stent (~09/2018) S/P insertion of iliac artery stent (~02/2019) S/P cardiac cath (~12/2020) History of cholecystectomy (~02/2009) Social History Social History Household Members: None Housing: House Housing Other:: Sent in from [place] Are you a primary technical healthcare consultant to a significant other at home: No Do you presently have visiting nurse or other home services: No Alcohol intake: never Comment: aware of trip hazard Patient Tobacco Use Status: Former Tobacco user Tobacco use type: Cigarette e-Cigarette/Vaping Use: Never Used Second Hand Smoke Exposure: No Advance Directives Date on File: 12/27/20 service: No Current occupational status: retired Cognitive needs: Yes (cane) Hearing needs: No Vision needs: Yes (reading glasses) Meds Allergies Allergy/AdvReac Type Severity Reaction Status Date / Time codeine [Codeine] AdvReac Mild vomiting Verified 04/25/24 09:37 Active Medications: Current Medications Acetaminophen (Acetaminophen 325 Mg Tablet) 650 mg PO Q6H PRN PRN Reason: Pain, Mild (Pain Scale 1-3), fever or headache Albuterol Sulfate (Albuterol Sulfate 90 Mcg 8 Gm Inhaler) 2 puff INHALE Q4H PRN PRN Reason: wheezing Amiodarone HCl (Amiodarone Hcl 200 Mg Tablet) 200 mg PO DAILY JOSE Apixaban (Apixaban 5 Mg Tablet) 5 mg PO BID JOSE Last Admin: 04/25/24 20:01 Dose: 5 mg Atorvastatin Calcium (Atorvastatin Calcium 80 Mg Tablet) 80 mg PO BEDTIME [facility] Last Admin: 04/25/24 20:00 Dose: 80 mg Calcium Carbonate (Calcium Carbonate 750 Mg Tab.Chew) 750 mg PO Q4H PRN PRN Reason: Heartburn Clopidogrel Bisulfate (Clopidogrel Bisulfate 75 Mg Tablet) 75 mg PO DAILY [facility] Cyanocobalamin (Cyanocobalamin (Vitamin B-12) 1,000 Mcg Tablet) 1,000 mcg PO DAILY [facility] Fluticasone/Vilanterol (Fluticasone/Vilanterol 100/25 Blst.W.Dev) 1 puff INHALE RDAILY [facility] Furosemide (Furosemide 40 Mg Tablet) 40 mg PO DAILY [facility]; Protocol Hydromorphone HCl (Hydromorphone Hcl 2 Mg Tablet) 1 mg PO Q4H PRN PRN Reason: Pain, Severe (Pain Scale 7-10) Sodium Chloride (Ns) 1,000 mls @ 100 mls/hr IVCONT .Q10H [facility] Last Admin: 04/26/24 01:30 Dose: 100 mls/hr Ceftriaxone Sodium 1 gm/ (Sodium Chloride) 50 mls @ 100 mls/hr IV Q24H [facility] Levothyroxine Sodium (Levothyroxine Sodium 50 Mcg Tablet) 50 mcg PO DAILY@0600 [facility] Last Admin: 04/26/24 06:05 Dose: 50 mcg Magnesium Hydroxide (Milk Of Magnesia 30 Ml Oral.Susp) 30 ml PO DAILY PRN PRN Reason: Constipation Melatonin (Melatonin 3 Mg Tablet) 6 mg PO BEDTIME PRN PRN Reason: Insomnia Melatonin (Melatonin 3 Mg Tablet) 9 mg PO BEDTIME [facility] Last Admin: 04/25/24 20:00 Dose: 9 mg Metoprolol Succinate (Metoprolol Succinate Er 25 Mg Tab.Er.24h) 25 mg PO DAILY [facility]; Protocol Last Admin: 04/25/24 15:51 Dose: 25 mg Ondansetron HCl (Ondansetron Hcl 4 Mg/2 Ml Vial) 4 mg IVPUSH Q8H PRN PRN Reason: Nausea and Vomiting Last Admin: 04/25/24 22:47 Dose: 4 mg Pantoprazole Sodium (Pantoprazole Sodium 20 Mg Tablet.Dr) 40 mg PO DAILY@0630 [facility] Last Admin: 04/26/24 06:05 Dose: 40 mg Paroxetine HCl (Paroxetine Hcl 40 Mg Tablet) 40 mg PO BEDTIME JOSE Last Admin: 04/25/24 20:00 Dose: 40 mg Potassium Chloride (Potassium Chloride Er 20 Meq Tab.Er.Prt) 40 meq PO DAILY [facility] Sodium Chloride (0.9 % Sodium Chloride Flush 3 Ml Syringe) 3 ml IVFLUSH QSHIFT [facility] Last Admin: 04/26/24 00:21 Dose: Not Given Vitamin D (Cholecalciferol (Vitamin D3) 25 Mcg Tablet) 25 mcg PO DAILY [facility] Home Medications ?Medication ?Instructions ?Recorded ?Confirmed ?Last Taken ?Type paroxetine HCl 40 mg tablet 40 mg PO BEDTIME 10/03/20 04/25/24 03/29/24 History cholecalciferol (vitamin D3) 25 25 mcg PO DAILY 12/20/20 04/25/24 03/29/24 History mcg (1,000 unit) tablet (Vitamin D3) cyanocobalamin (vitamin B-12) 1,000 mcg PO DAILY 12/20/20 04/25/24 03/29/24 History 1,000 mcg tablet (Vitamin B-12) melatonin 10 mg tablet 10 mg PO BEDTIME Insomnia 01/13/23 04/25/24 03/29/24 History levothyroxine 50 mcg tablet 50 mcg PO DAILY@0609/02/23 04/25/24 03/29/24 History (Synthroid) metoprolol succinate 25 mg 25 mg PO DAILY 12/25/23 04/25/24 03/29/24 History tablet,extended release 24 hr pantoprazole 40 mg tablet,delayed 40 mg PO DAILY@62903/15/24 04/25/24 03/29/24 History release albuterol sulfate 90 mcg/actuation 2 puff inhalation Q4H PRN wheezing 03/30/24 04/25/24 Unknown History aerosol inhaler acetaminophen 500 mg tablet 1,000 mg PO TID 04/21/24 04/25/24 Unknown History amiodarone 200 mg tablet 200 mg PO DAILY 04/21/24 04/25/24 Unknown History bisacodyl 10 mg rectal suppository 10 mg RI DAILY PRN Constipation 04/21/24 04/25/24 Unknown History docusate sodium 100 mg capsule 100 mg PO BID 04/21/24 04/25/24 Unknown History (Colace) hydromorphone 2 mg tablet 1 mg PO Q4H PRN Pain 04/21/24 04/25/24 Unknown History (Dilaudid) lactulose 10 gram/15 mL oral 15 ml PO DAILY 04/21/24 04/25/24 Unknown History solution sennosides 8.6 mg-docusate sodium 2 tab-cap PO BID 04/21/24 04/25/24 Unknown History 50 mg capsule (Senna Plus) sodium phosphates 19 gram-7 118 ml RI DAILY PRN Constipation 04/21/24 04/25/24 Unknown History gram/118 mL enema (Fleet Enema) Lactobacillus rhamnosus GG 10 1 cap PO BID 04/25/24 04/25/24 Unknown History billion cell capsule (Culturelle) magnesium hydroxide 400 mg/5 mL 30 ml PO DAILY PRN Constipation 04/25/24 04/25/24 Unknown History oral suspension (Milk of Magnesia) Physical Exam Vital Signs: Vital Signs: Last Vital Signs Temp 97.6 F 04/26/24 08:00 Pulse 97 04/26/24 08:00 Resp 20 04/26/24 08:00 BP 123/74 04/26/24 08:00 Pulse Ox 99 04/26/24 08:00 O2 Del Method Room Air 04/26/24 08:00 BMI result Body Mass Index 22.8 Const: General: comfortable and no acute distress Orientation/consciousness: patient oriented x3 HEENT: Other: Unremarkable Head: Yes normal to inspection Neck: Neck: Yes normal visual inspection Chest: Chest palpation & inspection: normal inspection of the chest Resp: Auscultation: clear to auscultation bilaterally Cardio: Palpation: normal PMI Heart sounds: S1 normal heart sound present, S2 normal heart sound present, no gallops, Murmur heart sound present systolic II/ and at the right sternal border and no rubs GI: Palpation (GI): Soft to palpation Back/Spine/Pelvis: Other: unremarkable Skin: General skin exam: no rashes or lesions noted Neuro: General: patient oriented x3 Extrem: General: Yes normal to inspection Psych: Mental Status: mental status grossly normal Objective Labs and Meds 04/26/24 06:23 04/26/24 06:23 Lab results: Laboratory Results - last 24 hr 04/25/24 04/25/24 04/25/24 09:57 09:58 10:16 WBC 9.2 RBC 3.98 L Hgb 9.9 L Hct 32.1 L MCV 80.7 MCH 24.9 L MCHC 30.8 L RDW 20.7 H Plt Count 504 H D MPV 8.8 L Immature Gran % (Auto) 1.2 H Neut % (Auto) 78.3 H Lymph % (Auto) 12.8 L [place] % (Auto) 5.8 Eos % (Auto) 1.0 Baso % (Auto) 0.9 Lymph # (Auto) 1.2 [place] # (Auto) 0.5 Eos # (Auto) 0.1 Baso # (Auto) 0.1 Abs Immat Gran (auto) 0.11 H Absolute Neuts (auto) 7.2 Absolute Nucleated RBC 0.000 Nucleated RBC % (auto) 0.0 Sodium 143 Potassium 3.4 Chloride 107 Carbon Dioxide 24 Anion Gap 15 BUN 16 Creatinine 1.42 H Estim Creat Clear Calc 34.5 Estimated GFR 37 Random Glucose 110 Lactic Acid 1.7 Calcium 9.4 D Total Bilirubin 0.3 Direct Bilirubin 0.1 AST 16 ALT 10 Alkaline Phosphatase 99 Troponin I High Sens 18.4 H Total Protein 6.8 Albumin 2.9 L Lipase 7 L Urine Color Yellow Urine Appearance Clear Urine pH 6.0 Ur Specific [place] 1.010 Urine Protein Trace Urine Glucose (UA) Negative Urine Ketones Negative Urine Blood Moderate (2+) H Urine Nitrite Negative Ur Leukocyte Esterase Large (3+) H Urine RBC 11-20 H Urine WBC 21-50 H Ur Squamous Epith Cells 0-2 Urine Bacteria None Seen Hyaline Casts 0-2 Influenza Type A (PCR) NEGATIVE Influenza Type B (PCR) NEGATIVE RSV RNA Qual (PCR) NEGATIVE SARS-CoV-2 RNA (RT-PCR) NEGATIVE 04/25/24 04/26/24 14:47 06:23 WBC 9.5 RBC 3.58 L Hgb 9.0 L Hct 29.1 L MCV 81.3 MCH 25.1 L MCHC 30.9 L RDW 21.0 H Plt Count 449 H MPV 9.0 L Immature Gran % (Auto) 1.6 H Neut % (Auto) 71.1 Lymph % (Auto) 18.2 L [place] % (Auto) 6.5 Eos % (Auto) 1.4 Baso % (Auto) 1.2 Lymph # (Auto) 1.7 [place] # (Auto) 0.6 Eos # (Auto) 0.1 Baso # (Auto) 0.1 Abs Immat Gran (auto) 0.15 H Absolute Neuts (auto) 6.8 Absolute Nucleated RBC 0.000 Nucleated RBC % (auto) 0.0 Sodium 143 Potassium 3.0 L Chloride 112 H Carbon Dioxide 21 L Anion Gap 13 BUN 12 Creatinine 1.18 Estim Creat Clear Calc 41.5 Estimated GFR 45 Random Glucose 92 Lactic Acid Calcium 8.5 D Total Bilirubin Direct Bilirubin AST ALT Alkaline Phosphatase Troponin I High Sens 19.8 H Total Protein Albumin Lipase Urine Color Urine Appearance Urine pH Ur Specific [place] Urine Protein Urine Glucose (UA) Urine Ketones Urine Blood Urine Nitrite Ur Leukocyte Esterase Urine RBC Urine WBC Ur Squamous Epith Cells Urine Bacteria Hyaline Casts Influenza Type A (PCR) Influenza Type B (PCR) RSV RNA Qual (PCR) SARS-CoV-2 RNA (RT-PCR) ECG Interpretation: EKG shows atrial fibrillation at a rate of 79/Min; lateral ST depression. ST-T changes aren't much different from before. EKG from April 20 shows sinus rhythm with frequent PACs. Imaging Radiologist's impression: Impressions Chest X-Ray 04/25/24 10:52 IMPRESSION: No acute intrathoracic disease. Borderline cardiomegaly. Assessment and Plan (1) Atrial fibrillation with rapid ventricular response: Status: Acute History of prior cardioversion and antiarrhythmic therapy with amiodarone. Recurrence of atrial fibrillation could be related to acute GI illness. Continue amiodarone for now. Continue anticoagulation. Possibly another cardioversion but to be decided. (2) Elevated troponin I level: Status: Acute History of established CAD. Last catheterization 2021. Patent stents in the circumflex/RCA. Moderate RCA stenosis; [id number] LAD stenosis; ostial OM1 stenosis unchanged. Progression of mid circumflex stenosis stented with PETRA. Subsequently, 1 further myocardial perfusion imaging study within normal limits. Slightly elevated troponins most likely from acute illness. She has got no chest pain. No specific workup needed at this time. Continue her home cardiac medications. Procedures Date of Service Date of Service: 04/26/24
[2024-04-26] MEDS: 0.9 % Sodium Chloride Flush 3 ML SYRINGE IVFLUSH (09:31)
[2024-04-26] MEDS: Cyanocobalamin (Vitamin B-12) 1,000 MCG TABLET 1000 MCG PO (09:31)
[2024-04-26] MEDS: Apixaban 5 MG TABLET PO ×2 (09:31→21:01)
[2024-04-26] MEDS: Cholecalciferol (Vitamin D3) 25 MCG TABLET PO (09:31)
--- NOTE | 2024-04-26 11:03 | HO.PM.IMPN ---
Subjective Subjective Date of Service: 04/26/24 Physical Exam Vital Signs: Vital Signs: Last Vital Signs Temp 97.6 F 04/26/24 08:00 Pulse 94 04/26/24 09:26 Resp 20 04/26/24 08:00 BP 135/85 04/26/24 09:30 Pulse Ox 99 04/26/24 08:00 O2 Del Method Room Air 04/26/24 08:00 BMI result Body Mass Index 22.8 Objective Data Active Medications Acetaminophen (Acetaminophen 325 Mg Tablet) 650 mg PO Q6H PRN PRN Reason: Pain, Mild (Pain Scale 1-3), fever or headache Albuterol Sulfate (Albuterol Sulfate 90 Mcg 8 Gm Inhaler) 2 puff INHALE Q4H PRN PRN Reason: wheezing Amiodarone HCl (Amiodarone Hcl 200 Mg Tablet) 200 mg PO DAILY [facility] Last Admin: 04/26/24 09:23 Dose: 200 mg Documented By: WAYNE Apixaban (Apixaban 5 Mg Tablet) 5 mg PO BID [facility] Last Admin: 04/26/24 09:31 Dose: 5 mg Documented By: WAYNE Atorvastatin Calcium (Atorvastatin Calcium 80 Mg Tablet) 80 mg PO BEDTIME [facility] Last Admin: 04/25/24 20:00 Dose: 80 mg Documented By: MARCELL Calcium Carbonate (Calcium Carbonate 750 Mg Tab.Chew) 750 mg PO Q4H PRN PRN Reason: Heartburn Clopidogrel Bisulfate (Clopidogrel Bisulfate 75 Mg Tablet) 75 mg PO DAILY [facility] Last Admin: 04/26/24 09:23 Dose: 75 mg Documented By: WAYNE Cyanocobalamin (Cyanocobalamin (Vitamin B-12) 1,000 Mcg Tablet) 1,000 mcg PO DAILY [facility] Last Admin: 04/26/24 09:31 Dose: 1,000 mcg Documented By: WAYNE Fluticasone/Vilanterol (Fluticasone/Vilanterol 100/25 Blst.W.Dev) 1 puff INHALE RDAILY [facility] Furosemide (Furosemide 40 Mg Tablet) 40 mg PO DAILY [facility]; Protocol Last Admin: 04/26/24 09:30 Dose: 40 mg Documented By: WAYNE Hydromorphone HCl (Hydromorphone Hcl 2 Mg Tablet) 1 mg PO Q4H PRN PRN Reason: Pain, Severe (Pain Scale 7-10) Sodium Chloride (Ns) 1,000 mls @ 100 mls/hr IVCONT .Q10H [facility] Last Admin: 04/26/24 01:30 Dose: 100 mls/hr Documented By: MARCELL Ceftriaxone Sodium 1 gm/ (Sodium Chloride) 50 mls @ 100 mls/hr IV Q24H [facility] Potassium Chloride (Potassium Chloride/H20) 10 meq in 100 mls @ 100 mls/hr IV Q1H [facility] Stop: 04/26/24 12:59 Levothyroxine Sodium (Levothyroxine Sodium 50 Mcg Tablet) 50 mcg PO DAILY@0600 [facility] Last Admin: 04/26/24 06:05 Dose: 50 mcg Documented By: ZACKERY Magnesium Hydroxide (Milk Of Magnesia 30 Ml Oral.Susp) 30 ml PO DAILY PRN PRN Reason: Constipation Melatonin (Melatonin 3 Mg Tablet) 6 mg PO BEDTIME PRN PRN Reason: Insomnia Melatonin (Melatonin 3 Mg Tablet) 9 mg PO BEDTIME [facility] Last Admin: 04/25/24 20:00 Dose: 9 mg Documented By: MARCELL Metoprolol Succinate (Metoprolol Succinate Er 25 Mg Tab.Er.24h) 25 mg PO DAILY [facility]; Protocol Last Admin: 04/26/24 09:26 Dose: 25 mg Documented By: WAYNE Ondansetron HCl (Ondansetron Hcl 4 Mg/2 Ml Vial) 4 mg IVPUSH Q8H PRN PRN Reason: Nausea and Vomiting Last Admin: 04/25/24 22:47 Dose: 4 mg Documented By: MARCELL Pantoprazole Sodium (Pantoprazole Sodium 20 Mg Tablet.Dr) 40 mg PO DAILY@0630 [facility] Last Admin: 04/26/24 06:05 Dose: 40 mg Documented By: ZACKERY Paroxetine HCl (Paroxetine Hcl 40 Mg Tablet) 40 mg PO BEDTIME [facility] Last Admin: 04/25/24 20:00 Dose: 40 mg Documented By: MARCELL Potassium Chloride (Potassium Chloride Er 20 Meq Tab.Er.Prt) 40 meq PO DAILY [facility] Last Admin: 04/26/24 09:24 Dose: Not Given Documented By: WAYNE Non-Admin Reason: Patient Refused Sodium Chloride (0.9 % Sodium Chloride Flush 3 Ml Syringe) 3 ml IVFLUSH QSHIFT [facility] Last Admin: 04/26/24 09:31 Dose: 3 ml Documented By: WAYNE Vitamin D (Cholecalciferol (Vitamin D3) 25 Mcg Tablet) 25 mcg PO DAILY [facility] Last Admin: 04/26/24 09:31 Dose: 25 mcg Documented By: WAYNE Labs 04/26/24 06:23 04/26/24 06:23 Labs: Laboratory Results - last 24 hr 04/25/24 04/26/24 14:47 06:23 MCV 81.3 MCH 25.1 L MCHC 30.9 L RDW 21.0 H Plt Count 449 H MPV 9.0 L Immature Gran % (Auto) 1.6 H Neut % (Auto) 71.1 Lymph % (Auto) 18.2 L Carter % (Auto) 6.5 Eos % (Auto) 1.4 Baso % (Auto) 1.2 Lymph # (Auto) 1.7 Carter # (Auto) 0.6 Eos # (Auto) 0.1 Baso # (Auto) 0.1 Abs Immat Gran (auto) 0.15 H Absolute Neuts (auto) 6.8 Absolute Nucleated RBC 0.000 Nucleated RBC % (auto) 0.0 Anion Gap 13 Estim Creat Clear Calc 41.5 Estimated GFR 45 Random Glucose 92 Calcium 8.5 D Troponin I High Sens 19.8 H Microbiology Microbiology Results: Microbiology 04/25/24 Unknown Urine Culture - Final Urine clean catch - Clean Catch Midstream No growth. Assessment and Plan (1) Nausea: Status: Acute (2) Atrial fibrillation with rapid ventricular response: Status: Acute Plan 68-year-old female with history of multiple sclerosis, COPD, CHF, cardiomyopathy, coronary artery disease, hypertension, PAD, paroxysmal atrial fibrillation anticoagulated with Eliquis, hypothyroidism, renal artery stenosis who is a former smoker admitted for further management of afib rvr in the setting of gi losses/poor po intake Ecoli UTI frequent UTIs continue Rocephin urology consultation Paroxysmal atrial fibrillation with rvr- rates up to low 100s noted on tele monitor rate controlled on admission, suspect r/t dehydration continue ivf continue amiodarone resume PO metoprolol continue eliquis for ac monitor on telemetry Acute nausea/diarrhea with PO intolerance check cdiff and stool studies Continue IVF clear liquid diet, advance as tolerated antiemetics prn PPI Elevated trops/ST depresssions no chest pain, but here with nausea/diaphoresis/dry heaves Trops flat 18--> 19. EKG with ST depressions in lateral leads Continue eliquis for AC, continue plavix, bb, statin echo cardiology consult monitor on tele CAD/CM as above HFrEF clinically euvolemic continue po diuretics COPD no exacerbation continue maintenance inhalers, albuterol prn hypothyroidism levothyroxine Chronic constipation hold anti-constipation meds given diarrhea yesterday, resume as indicated DVT prophylaxis- eulalia Attending Dr. Love Full code continue hospital stay due to atrial fibrillation with RVR in setting of dehydration/poor PO requiring IVF and diet advancement with cardiac monitoring and monitorin of renal function/lytes. Of note, also has new st depressions with elevated but flat troponins necessitating echo and expert consultation Quality Stroke Does the patient have a stroke diagnosis?: No VTE Prior VTE?: No VTE Risk Level:: Medical - moderate - high VTE Device Contraindication: Treatment Not Indicated VTE Drug Contraindication: N/A - Med Ordered
[2024-04-26] MEDS: ondansetron HCL 4 MG/2 ML VIAL IVPUSH (11:07)
[2024-04-26] MEDS: Potassium Chloride/H20 10 MEQ/100 ML PIGGYBACK 100 MEQ IV ×2 (11:07→12:17)
--- NOTE | 2024-04-26 11:24 | MHC.CLN ---
PT WITH INCREASED NUTRITION RISK R/T PRESSURE INJURY PT CURRENTLY ON C/L DIET WT STABLE X 1 YEAR RECOMMEND ADDING ENSURE CLEAR TID WITH MEAL TO PROMOTE WOUND HEALING SUPP TO PROVIDE 720KCALS, 24G PROTEIN MONITOR PO INTAKE AND ENCOURAGE SUPPLEMENTS SEE ALSO FULL CLINICAL NUTRITION ASSESSMENT
--- NOTE | 2024-04-26 11:46 | MHC.CM.PN ---
IMM 04/26/24, pt came from [facility], where she was for only one day for STR following hosp stay here. She is holding the bed at [facility], and plans to return to complete her STR. She lives alone and has VNA services from [facility], she uses a walker. HCP is on file and confirmed: Aliya PCP confirmed: Dr. Whitfield. DCP: return to [facility] via BLS. CM to follow and assist with DC plan.
[2024-04-26] MEDS: Famotidine/PF 20 MG/2 ML VIAL IVPUSH (12:17)
--- NOTE | 2024-04-26 12:28 | P.CDIM_ITS ---
PROVIDER RESPONSE TEXT: To clarify, the appropriate diagnosis supported by the clinical indicators: Hypokalemia QUERY TEXT: PHYSICIAN'S DOCUMENTATION REQUEST Date of Query: 04/26/2024 11:32 AM EDT Patient Name: Alden Garcia Admit Date: 04/25/2024 Dear Zina Lamb, A review of the medical record indicates additional documentation may be needed. Please review below and update the documentation accordingly. Clinical Indicators: LABS: potassium 3.0 L Klor-Con Based on the above, is there a diagnosis that correlates with these lab findings: Hypokalemia Other (explain) Clinically unable to determine (explain) Thank you, Roxi Jain, CCS, CDIS Use of terms such as suspected, likely, concern for, or probable (associated with a specific diagnosi s that is being evaluated, monitored, or treated as if it exists) are acceptable and can be coded in the inpatient se tting, when documented at the time of discharge. Please use your independent medical judgment in providing your response. THIS QUERY IS PART OF THE PERMANENT MEDICAL RECORD
--- NOTE | 2024-04-26 12:41 | PM.UROCN ---
History of Present Illness Consult details Consult date: 04/26/24 Narrative: CC: Pyelonephritis with elevated creatinine and hydronephrosis 68-year-old female Long standing multiple sclerosis She was recently admitted from 04/21-04/23 for acute pyelonephritis treated with ceftriaxone and discharged on cefuroxime. Pt reports she was feeling well until this morning. Does report chronic constipation and has been getting multiple medications for constipation including lactulose. Readmitted for ongoing UTI CT - Moderate to severe left pelvocaliectasis and moderate left hydroureter with more mild right hydroureteronephrosis. No obstructing stones are identified. Slight increased attenuation of the urothelium, left side greater than right, raising the possibility of urinary tract infection. - Mild bladder wall thickening with gas in the bladder lumen. Query recent catheterization. Recommend correlation with urinalysis for possible cystitis. Previous evaluation recommending urodynamics and CIC She does not believe that her bladder disorder is related to her multiple sclerosis Is requesting follow-up with Sarah Gaines NP since her brother has seen this provider. Recommend bladder scan after voiding for retention Review of Systems Constitutional: Constitutional: Reports as per HPI and Reports no additional constitutional complaints Cardiovascular: Cardiovascular: Reports as per HPI and Reports no additional cardiovascular complaints Respiratory: Respiratory: Reports as per HPI and Reports no additional respiratory complaints Gastrointestinal: Gastrointestinal: Reports as per HPI and Reports no additional gastrointestinal complaints Genitourinary: Genitourinary: Reports as per HPI Musculoskeletal: Musculoskeletal: Reports no additional musculoskeletal complaints and Reports as per HPI Neurologic: Reports system reviewed and no additional complaints, except as documented and Reports as per HPI [facility] Past Medical History Medical History (Updated 04/26/24 @ 09:34 by John Lizama MD) Atrial fibrillation with rapid ventricular response Osteoarthritis of left hip Bilateral cataracts History of cardioversion Myocardial infarction Arthritis Hx of transfusion of packed red blood cells Thyroid disease GERD (gastroesophageal reflux disease) CKD (chronic kidney disease) On anticoagulant therapy History of smoking 30 or more pack years PAF (paroxysmal atrial fibrillation) Left renal artery stenosis Personal history of nicotine dependence Cardiomyopathy Essential hypertension Atherosclerotic cardiovascular disease Asymmetric blood pressures Acute on chronic systolic (congestive) heart failure CHF (congestive heart failure) CAD (coronary artery disease) Multiple sclerosis Pulmonary nodules COPD (chronic obstructive pulmonary disease) Peripheral arterial occlusive disease Family History Family History Father No problems noted. Mother No problems noted. Brother Diabetes Surgical History Surgical History History of endoscopy History of colonoscopy History of heart artery stent (~2018) Status post angioplasty with stent (~09/2018) S/P insertion of iliac artery stent (~02/2019) S/P cardiac cath (~12/2020) History of cholecystectomy (~02/2009) Social History Social History Household Members: None Housing: House Housing Other:: Sent in from [facility] Are you a primary day care teacher to a significant other at home: No Do you presently have visiting nurse or other home services: No Alcohol intake: never Comment: aware of trip hazard Patient Tobacco Use Status: Former Tobacco user Tobacco use type: Cigarette e-Cigarette/Vaping Use: Never Used Second Hand Smoke Exposure: No Advance Directives Date on File: 12/27/20 service: No Current occupational status: retired Cognitive needs: Yes (cane) Hearing needs: No Vision needs: Yes (reading glasses) Meds Allergies Allergy/AdvReac Type Severity Reaction Status Date / Time codeine [Codeine] AdvReac Mild vomiting Verified 04/25/24 09:37 Active Medications: Current Medications Acetaminophen (Acetaminophen 325 Mg Tablet) 650 mg PO Q6H PRN PRN Reason: Pain, Mild (Pain Scale 1-3), fever or headache Albuterol Sulfate (Albuterol Sulfate 90 Mcg 8 Gm Inhaler) 2 puff INHALE Q4H PRN PRN Reason: wheezing Amiodarone HCl (Amiodarone Hcl 200 Mg Tablet) 200 mg PO DAILY [facility] Last Admin: 04/26/24 09:23 Dose: 200 mg Apixaban (Apixaban 5 Mg Tablet) 5 mg PO BID [facility] Last Admin: 04/26/24 09:31 Dose: 5 mg Atorvastatin Calcium (Atorvastatin Calcium 80 Mg Tablet) 80 mg PO BEDTIME [facility] Last Admin: 04/25/24 20:00 Dose: 80 mg Calcium Carbonate (Calcium Carbonate 750 Mg Tab.Chew) 750 mg PO Q4H PRN PRN Reason: Heartburn Clopidogrel Bisulfate (Clopidogrel Bisulfate 75 Mg Tablet) 75 mg PO DAILY [facility] Last Admin: 04/26/24 09:23 Dose: 75 mg Cyanocobalamin (Cyanocobalamin (Vitamin B-12) 1,000 Mcg Tablet) 1,000 mcg PO DAILY [facility] Last Admin: 04/26/24 09:31 Dose: 1,000 mcg Famotidine (Famotidine/Pf 20 Mg/2 Ml Vial) 20 mg IVPUSH DAILY [facility] Last Admin: 04/26/24 12:17 Dose: 20 mg Fluticasone/Vilanterol (Fluticasone/Vilanterol 100/25 Blst.W.Dev) 1 puff INHALE RDAILY [facility] Last Admin: 04/26/24 11:04 Dose: Not Given Furosemide (Furosemide 40 Mg Tablet) 40 mg PO DAILY [facility]; Protocol Last Admin: 04/26/24 09:30 Dose: 40 mg Hydromorphone HCl (Hydromorphone Hcl 2 Mg Tablet) 1 mg PO Q4H PRN PRN Reason: Pain, Severe (Pain Scale 7-10) Sodium Chloride (Ns) 1,000 mls @ 100 mls/hr IVCONT .Q10H [facility] Last Admin: 04/26/24 11:02 Dose: 100 mls/hr Ceftriaxone Sodium 1 gm/ (Sodium Chloride) 50 mls @ 100 mls/hr IV Q24H [facility] Potassium Chloride (Potassium Chloride/H20) 10 meq in 100 mls @ 100 mls/hr IV Q1H [facility] Stop: 04/26/24 12:59 Last Admin: 04/26/24 12:17 Dose: 100 mls/hr Levothyroxine Sodium (Levothyroxine Sodium 50 Mcg Tablet) 50 mcg PO DAILY@0600 [facility] Last Admin: 04/26/24 06:05 Dose: 50 mcg Magnesium Hydroxide (Milk Of Magnesia 30 Ml Oral.Susp) 30 ml PO DAILY PRN PRN Reason: Constipation Melatonin (Melatonin 3 Mg Tablet) 6 mg PO BEDTIME PRN PRN Reason: Insomnia Melatonin (Melatonin 3 Mg Tablet) 9 mg PO BEDTIME [facility] Last Admin: 04/25/24 20:00 Dose: 9 mg Metoprolol Succinate (Metoprolol Succinate Er 25 Mg Tab.Er.24h) 25 mg PO DAILY [facility]; Protocol Last Admin: 04/26/24 09:26 Dose: 25 mg Ondansetron HCl (Ondansetron Hcl 4 Mg/2 Ml Vial) 4 mg IVPUSH Q8H PRN PRN Reason: Nausea and Vomiting Last Admin: 04/26/24 11:07 Dose: 4 mg Paroxetine HCl (Paroxetine Hcl 40 Mg Tablet) 40 mg PO BEDTIME [facility] Last Admin: 04/25/24 20:00 Dose: 40 mg Potassium Chloride (Potassium Chloride Er 20 Meq Tab.Er.Prt) 40 meq PO DAILY [facility] Last Admin: 04/26/24 09:24 Dose: Not Given Sodium Chloride (0.9 % Sodium Chloride Flush 3 Ml Syringe) 3 ml IVFLUSH QSHIFT [facility] Last Admin: 04/26/24 09:31 Dose: 3 ml Vitamin D (Cholecalciferol (Vitamin D3) 25 Mcg Tablet) 25 mcg PO DAILY [facility] Last Admin: 04/26/24 09:31 Dose: 25 mcg Home Medications ?Medication ?Instructions ?Recorded ?Confirmed ?Last Taken ?Type paroxetine HCl 40 mg tablet 40 mg PO BEDTIME 10/03/20 04/25/24 03/29/24 History cholecalciferol (vitamin D3) 25 25 mcg PO DAILY 12/20/20 04/25/24 03/29/24 History mcg (1,000 unit) tablet (Vitamin D3) cyanocobalamin (vitamin B-12) 1,000 mcg PO DAILY 12/20/20 04/25/24 03/29/24 History 1,000 mcg tablet (Vitamin B-12) melatonin 10 mg tablet 10 mg PO BEDTIME Insomnia 01/13/23 04/25/24 03/29/24 History levothyroxine 50 mcg tablet 50 mcg PO DAILY@0600 09/02/23 04/25/24 03/29/24 History (Synthroid) metoprolol succinate 25 mg 25 mg PO DAILY 12/25/23 04/25/24 03/29/24 History tablet,extended release 24 hr pantoprazole 40 mg tablet,delayed 40 mg PO DAILY@0603/15/24 04/25/24 03/29/24 History release albuterol sulfate 90 mcg/actuation 2 puff inhalation Q4H PRN wheezing 03/30/24 04/25/24 Unknown History aerosol inhaler acetaminophen 500 mg tablet 1,000 mg PO TID 04/21/24 04/25/24 Unknown History amiodarone 200 mg tablet 200 mg PO DAILY 04/21/24 04/25/24 Unknown History bisacodyl 10 mg rectal suppository 10 mg [place] DAILY PRN Constipation 04/21/24 04/25/24 Unknown History docusate sodium 100 mg capsule 100 mg PO BID 04/21/24 04/25/24 Unknown History (Colace) hydromorphone 2 mg tablet 1 mg PO Q4H PRN Pain 04/21/24 04/25/24 Unknown History (Dilaudid) lactulose 10 gram/15 mL oral 15 ml PO DAILY 04/21/24 04/25/24 Unknown History solution sennosides 8.6 mg-docusate sodium 2 tab-cap PO BID 04/21/24 04/25/24 Unknown History 50 mg capsule (Senna Plus) sodium phosphates 19 gram-7 118 ml [place] DAILY PRN Constipation 04/21/24 04/25/24 Unknown History gram/118 mL enema (Fleet Enema) Lactobacillus rhamnosus GG 10 1 cap PO BID 04/25/24 04/25/24 Unknown History billion cell capsule (Culturelle) magnesium hydroxide 400 mg/5 mL 30 ml PO DAILY PRN Constipation 04/25/24 04/25/24 Unknown History oral suspension (Milk of Magnesia) Physical Exam Vital Signs: Vital Signs: Last Vital Signs Temp 98.1 F 04/26/24 12:00 Pulse 84 04/26/24 12:00 Resp 18 04/26/24 12:00 BP 131/85 04/26/24 12:00 Pulse Ox 98 04/26/24 12:00 O2 Del Method Room Air 04/26/24 12:00 BMI result Body Mass Index 22.8 Const: General: cooperative, healthy appearing, comfortable and no acute distress Orientation/consciousness: patient oriented x3 HEENT: Face and sinus: Yes normal facial exam Mouth: moist mucous membranes Neck: Neck: Yes normal visual inspection, Yes full ROM and Yes trachea midline Chest: Chest palpation & inspection: normal inspection of the chest Resp: Effort & Inspection: normal respiratory effort, able to speak in complete sentences and no respiratory distress GI: Inspection: Yes normal to inspection Back/Spine/Pelvis: Cervical Spine: normal cervical lordosis Thoracic/Lumbar Spine: thoracic and lumbar spine normal to inspection Skin: General skin exam: no rashes or lesions noted Neuro: General: patient oriented x3, tone normal and moves all extremities Extrem: General: Yes normal to inspection and Yes capillary refill normal Results Labs 04/26/24 06:23 04/26/24 06:23 Labs: Abnormal lab results 04/25/24 04/26/24 Range/Units 14:47 06:23 RBC 3.58 L (4.20-5.50) X10*6/uL Hgb 9.0 L (12.0-16.0) g/dl Hct 29.1 L (37.0-47.0) % MCH 25.1 L (27.0-33.0) pg MCHC 30.9 L (31.0-35.0) g/dl RDW 21.0 H (11.0-16.0) % Plt Count 449 H (160-400) X10*3/uL MPV 9.0 L (9.4-12.3) fL Immature Gran % (Auto) 1.6 H (0.0-0.4) % Lymph % (Auto) 18.2 L (20-40) % Abs Immat Gran (auto) 0.15 H (0.00-0.03) X10*3/uL Potassium 3.0 L (3.3-5.1) mmol/L Chloride 112 H (96-108) mmol/L Carbon Dioxide 21 L (22-29) mmol/L Troponin I High Sens 19.8 H (<3.5-17.0) ng/L Short CBC 04/26/24 Range/Units 06:23 WBC 9.5 (4.8-10.8) X10*3/uL Hgb 9.0 L (12.0-16.0) g/dl Hct 29.1 L (37.0-47.0) % Plt Count 449 H (160-400) X10*3/uL BMP 04/26/24 06:23 Sodium 143 Potassium 3.0 L Chloride 112 H Carbon Dioxide 21 L BUN 12 Creatinine 1.18 Calcium 8.5 D Urine 04/25/24 Range/Units 10:16 Urine Color Yellow Urine Appearance Clear Urine pH 6.0 (5.0-9.0) Ur Specific [place] 1.010 (1.005-1.025) Urine Protein Trace (Neg-Trace) mg/dL Urine Glucose (UA) Negative (Negative) mg/dL All other labs normal. Assessment and Plan (1) Acute pyelonephritis: Status: Acute (2) Hypotonic neurogenic bladder: Status: Acute Plan Bladder scan May require clean intermittent catheterization Outpatient follow-up for assessment for urodynamics Procedures Date of Service Date of Service: 04/26/24
[2024-04-26] MEDS: cefTRIAXone sodium 1 GM in 0.9 % Sodium Chloride 50 ML IV (13:41)
[2024-04-26] MEDS: Melatonin 3 MG TABLET 9 MG PO (21:01)
[2024-04-26] MEDS: Atorvastatin Calcium 80 MG TABLET PO (21:01)
[2024-04-26] MEDS: PARoxetine HCL 40 MG TABLET PO (21:01)
[2024-04-27] VITALS (7 sets, daily range): BP systolic 132–164; BP diastolic 70–93; PULSE 64–99; RESP 14–20; TEMP 36.1–36.7; O2SAT 96–99
[2024-04-27] MEDS: Acetaminophen 325 MG TABLET 650 MG PO ×2 (03:42→21:03)
[2024-04-27] MEDS: Levothyroxine Sodium 50 MCG TABLET PO (05:33)
[2024-04-27 06:58] LABS: Anion Gap 11 (12-20); Blood Urea Nitrogen 10 mg/dL (9-16); Calcium 8.4 mg/dL (8.4-10.2); Carbon Dioxide 23 mmol/L (22-29); Chloride 113 mmol/L (96-108); Creatinine Clr Calc Pharmacy 39.4; Estimated Glomerular Filt Rate 43; Glucose Random 97 mg/dL (60-115); Sodium 144 mmol/L (135-145)
[2024-04-27] MEDS: 0.9 % Sodium Chloride 1,000 ML 100 ML IVCONT (07:16)
[2024-04-27] MEDS: Fluticasone/Vilanterol 100/25 BLST.W.DEV 1 PUFF INHALE (07:56)
[2024-04-27] MEDS: Famotidine/PF 20 MG/2 ML VIAL IVPUSH (08:17)
[2024-04-27] MEDS: 0.9 % Sodium Chloride Flush 3 ML SYRINGE IVFLUSH ×3 (08:17→21:06)
[2024-04-27] MEDS: Potassium Chloride/H20 10 MEQ/100 ML PIGGYBACK 100 MEQ IV ×2 (08:17→12:15)
--- NOTE | 2024-04-27 10:30 | PC.NURSE ---
Patient refusing to take morning medication at around 0816 and continue to refuse until she is get her breakfast.
[2024-04-27] MEDS: ondansetron HCL 4 MG/2 ML VIAL IVPUSH (10:57)
[2024-04-27] MEDS: Collagenase Clostridium Hist. 30 GM TUBE 1 APPL TOPICAL (12:14)
--- NOTE | 2024-04-27 12:31 | HO.PM.IMPN ---
Subjective Subjective Date of Service: 04/27/24 Review of Systems Follow up n/v, afib feeling better eating solid food Physical Exam Vital Signs: Vital Signs: Last Vital Signs Temp 98.0 F 04/27/24 11:43 Pulse 89 04/27/24 11:43 Resp 19 04/27/24 11:43 BP 142/70 H 04/27/24 11:43 Pulse Ox 99 04/27/24 11:43 O2 Del Method Room Air 04/27/24 11:43 BMI result Body Mass Index 22.8 Appearing in no acute distress lung sounds are clear to auscultation heart regular rate rhythm, clear S1, S2 positive bowel sounds, abdomen is soft, nontender neuro patient is alert x3, no focal deficits Objective Data Active Medications Acetaminophen (Acetaminophen 325 Mg Tablet) 650 mg PO Q6H PRN PRN Reason: Pain, Mild (Pain Scale 1-3), fever or headache Last Admin: 04/27/24 03:42 Dose: 650 mg Documented By: DONALD Albuterol Sulfate (Albuterol Sulfate 90 Mcg 8 Gm Inhaler) 2 puff INHALE Q4H PRN PRN Reason: wheezing Amiodarone HCl (Amiodarone Hcl 200 Mg Tablet) 200 mg PO DAILY [facility] Last Admin: 04/27/24 11:03 Dose: Not Given Documented By: WAYNE Non-Admin Reason: Patient Refused Apixaban (Apixaban 5 Mg Tablet) 5 mg PO BID [facility] Last Admin: 04/27/24 11:04 Dose: Not Given Documented By: WAYNE Non-Admin Reason: Patient Refused Atorvastatin Calcium (Atorvastatin Calcium 80 Mg Tablet) 80 mg PO BEDTIME [facility] Last Admin: 04/26/24 21:01 Dose: 80 mg Documented By: DONALD Calcium Carbonate (Calcium Carbonate 750 Mg Tab.Chew) 750 mg PO Q4H PRN PRN Reason: Heartburn Clopidogrel Bisulfate (Clopidogrel Bisulfate 75 Mg Tablet) 75 mg PO DAILY [facility] Last Admin: 04/27/24 11:04 Dose: Not Given Documented By: WAYNE Non-Admin Reason: Patient Refused Collagenase (Collagenase Clostridium Hist. 30 Gm Tube) 1 appl TOPICAL DAILY [facility]; Protocol Last Admin: 04/27/24 12:14 Dose: 1 appl Documented By: WAYEN Cyanocobalamin (Cyanocobalamin (Vitamin B-12) 1,000 Mcg Tablet) 1,000 mcg PO DAILY [facility] Last Admin: 04/27/24 11:04 Dose: Not Given Documented By: WAYNE Non-Admin Reason: Patient Refused Famotidine (Famotidine/Pf 20 Mg/2 Ml Vial) 20 mg IVPUSH DAILY [facility] Last Admin: 04/27/24 08:17 Dose: 20 mg Documented By: WAYNE Fluticasone/Vilanterol (Fluticasone/Vilanterol 100/25 Blst.W.Dev) 1 puff INHALE RDAILY [facility] Last Admin: 04/27/24 07:56 Dose: 1 puff Documented By: NILES Furosemide (Furosemide 40 Mg Tablet) 40 mg PO DAILY [facility]; Protocol Last Admin: 04/27/24 11:04 Dose: Not Given Documented By: WAYNE Non-Admin Reason: Patient Refused Hydromorphone HCl (Hydromorphone Hcl 2 Mg Tablet) 1 mg PO Q4H PRN PRN Reason: Pain, Severe (Pain Scale 7-10) Ceftriaxone Sodium 1 gm/ (Sodium Chloride) 50 mls @ 100 mls/hr IV Q24H [facility] Last Infusion: 04/26/24 14:19 Dose: Infused Documented By: WAYNE Levothyroxine Sodium (Levothyroxine Sodium 50 Mcg Tablet) 50 mcg PO DAILY@0600 [facility] Last Admin: 04/27/24 05:33 Dose: 50 mcg Documented By: DONALD Magnesium Hydroxide (Milk Of Magnesia 30 Ml Oral.Susp) 30 ml PO DAILY PRN PRN Reason: Constipation Melatonin (Melatonin 3 Mg Tablet) 6 mg PO BEDTIME PRN PRN Reason: Insomnia Melatonin (Melatonin 3 Mg Tablet) 9 mg PO BEDTIME [facility] Last Admin: 04/26/24 21:01 Dose: 9 mg Documented By: DONALD Metoprolol Succinate (Metoprolol Succinate Er 25 Mg Tab.Er.24h) 25 mg PO DAILY [facility]; Protocol Last Admin: 04/27/24 11:04 Dose: Not Given Documented By: WAYNE Non-Admin Reason: Patient Refused Ondansetron HCl (Ondansetron Hcl 4 Mg/2 Ml Vial) 4 mg IVPUSH Q8H PRN PRN Reason: Nausea and Vomiting Last Admin: 04/27/24 10:57 Dose: 4 mg Documented By: WAYNE Paroxetine HCl (Paroxetine Hcl 40 Mg Tablet) 40 mg PO BEDTIME [facility] Last Admin: 04/26/24 21:01 Dose: 40 mg Documented By: DONALD Potassium Chloride (Potassium Chloride Er 20 Meq Tab.Er.Prt) 40 meq PO DAILY [facility] Last Admin: 04/27/24 11:04 Dose: Not Given Documented By: WAYNE Non-Admin Reason: Patient Refused Sodium Chloride (0.9 % Sodium Chloride Flush 3 Ml Syringe) 3 ml IVFLUSH QSHIFT [facility] Last Admin: 04/27/24 08:17 Dose: 3 ml Documented By: WAYNE Vitamin D (Cholecalciferol (Vitamin D3) 25 Mcg Tablet) 25 mcg PO DAILY [facility] Last Admin: 04/27/24 11:04 Dose: Not Given Documented By: WAYNE Non-Admin Reason: Patient Refused Labs 04/26/24 06:23 04/27/24 06:20 Labs: Laboratory Results - last 24 hr 04/27/24 06:20 Anion Gap 11 L Estim Creat Clear Calc 39.4 Estimated GFR 43 Random Glucose 97 Calcium 8.4 Microbiology Microbiology Results: Microbiology 04/25/24 09:57 Blood Culture - Preliminary Blood - Venous No growth after 48 hours. 04/25/24 09:57 Blood Culture - Preliminary Blood - Venous No growth after 48 hours. 04/25/24 Unknown Urine Culture - Final Urine clean catch - Clean Catch Midstream No growth. Assessment and Plan (1) Nausea: Status: Acute (2) Atrial fibrillation with rapid ventricular response: Status: Acute Plan 68-year-old female with history of multiple sclerosis, COPD, CHF, cardiomyopathy, coronary artery disease, hypertension, PAD, paroxysmal atrial fibrillation anticoagulated with Eliquis, hypothyroidism, renal artery stenosis who is a former smoker admitted for further management of afib rvr in the setting of gi losses/poor po intake Hypokalemia likely from poor po intake IV replacement,m refusing po Ecoli UTI 04/21/24 cx frequent UTIs urology consultation>bladder scan Q shift, may require clean intermittent catheterization if urine retention noted continue Rocephin (started 04/25/24) Paroxysmal atrial fibrillation with rvr. Resolved rate controlled on admission, suspect r/t dehydration continue amiodarone, metoprolol continue eliquis Acute nausea/diarrhea with PO intolerance. Resolved diet advanced to reg solid antiemetics prn PPI Elevated trops/ST depressions with hx of CAD no chest pain, but here with nausea/diaphoresis/dry heaves Had PETRA 2021 Trops flat 18--> 19. EKG with ST depressions in lateral leads Continue eliquis, plavix, bb, statin cardiology consult>no further cardiac workup at this time HFrEF clinically euvolemic echo with EF 40-45% with rwma continue po diuretics COPD no exacerbation continue maintenance inhalers, albuterol prn hypothyroidism levothyroxine Chronic constipation prn mom DVT prophylaxis- eulalia Attending Dr. Love Full code DISPO back to [facility] when medically clear Continued hospital stay for treatment for poor p.o. intake Quality Stroke Does the patient have a stroke diagnosis?: No VTE Prior VTE?: No VTE Risk Level:: Medical - moderate - high VTE Device Contraindication: Treatment Not Indicated VTE Drug Contraindication: N/A - Med Ordered
[2024-04-27] MEDS: cefTRIAXone sodium 1 GM in 0.9 % Sodium Chloride 50 ML IV (13:22)
[2024-04-27 14:03] LABS: Potassium 3.3 mmol/L (3.3-5.1)
--- NOTE | 2024-04-27 14:25 | P.DS_ITS ---
DS: Providers Provider Date of admission: 04/25/24 15:56 Primary care physician: Amina Whitfield MD Consults: 04/25/24 15:30 Consult to Cardiology Routine Consulting Provider: [facility] Reason for consultation: elevated (but flat) trops, ST depressions. on eliquis 04/26/24 11:04 Consult to Urology Routine Consulting Provider: Alyssa Thomas Reason for consultation: frequent UTI 04/26/24 19:13 Consult to Wound Care Routine Reason for consultation: coccyx wound DS: Diagnosis Discharge Diagnosis (1) Nausea: Status: Acute (2) Atrial fibrillation with rapid ventricular response: Status: Acute DS: Summary Hospital Course Hospital Course: History and physical as per admitting provider. 68-year-old female with history of multiple sclerosis, COPD, CHF, cardiomyopathy, coronary artery disease, hypertension, PAD, paroxysmal atrial fibrillation anticoagulated with Eliquis, hypothyroidism, renal artery stenosis who is a former smoker presented to the ED earlier today for evaluation of diaphoresis, malaise, nausea, and dry heaves that started this morning. She has not been tolerating PO. She was recently admitted from 04/21-04/23 for acute pyelonephritis treated with ceftriaxone and discharged on cefuroxime. Pt reports she was feeling well until this morning. Does report chronic constipation and has been getting multiple medications for c onstipation including lactulose. Reports yesterday had two episodes of diarrhea but no recurrence today. No fevers, chills, abd pain, vomiting, melena, hematochezia, urinary symptoms, lightheadedness, palpitations, sob, chest pain. Since arrival, VSS though hypertensive to 175/92 on admission. She has been intermittently tachycardic in the low 100s noted to be in Afib on the tele monitor. EKG shows afib, rate 79, wtih ST depressions noted in anterior leads as well as inversions. Initial trop 18, repeat 19. No leukocytosis. Stable normocytic anemia. Renal function baseline, lytes wnl. UA with 3+ leuks, 2+ blood, +urinary sediment, no bacteria. CXR negative for acute cardiopulmonary abnormality. In the ED, has been given IV NS, IV ctx (in place of cefuroxime given PO intolerance), and po vanco given diarrhea episodes in setting of recent antibiotic use. Ecoli UTI from urine culture on 04/21/2024. She does have frequent UTIs. Urology saw her and recommended bladder scan q.shift and straight catheterization as needed for greater than 400ml. Started on Flomax And treated with IV Rocephin, she should complete a total of 5 days of treatment. Paroxysmal atrial fibrillation with rvr. Resolved. Rate controlled was on admission, see likely had some degree of dehydration. Continue amiodarone, metoprolol and Eliquis Acute nausea/diarrhea with PO intolerance. Resolved, possibly some degree of gastritis. Diet was advanced to solid. She can continue PPI and antiemetics at home as needed Elevated trops/ST depressions with hx of CAD . no chest pain, but here with nausea/diaphoresis/dry heaves. Had PETRA 2021. Trops flat 18--> 19. EKG with ST depressions in lateral leads. Continue eliquis, plavix, bb, statin Seen evaluated by Cardiology with no further cardiac workup recommended. Hypokalemia . likely from poor po intake . IV replacement HFrEF clinically euvolemic. echo with EF 40-45% with rwma . continue po diuretics COPD. no exacerbation. continue maintenance inhalers hypothyroidism. levothyroxine Chronic constipation. prn mom Physical Exam Vital Signs: Vital Signs: Last Vital Signs Temp 98.0 F 04/27/24 11:43 Pulse 89 04/27/24 11:43 Resp 19 04/27/24 11:43 BP 142/70 H 04/27/24 11:43 Pulse Ox 99 04/27/24 11:43 O2 Del Method Room Air 04/27/24 11:43 BMI result Body Mass Index 22.8 DS: Data Data Completed and Pending Completed studies during hospitalization [Text1]: Procedures Replacement of Left Hip Joint with Ceramic Synthetic Substitute, Uncemented, Open Approach (03/30/24) Scientologist of Cardiac Rhythm, Single (09/13/21) Transfusion of Nonautologous Red Blood Cells into Peripheral Vein, Percutaneous Approach (03/30/24) Labs on day of discharge: Laboratory Results - last 24 hr 04/27/24 04/27/24 06:20 13:29 Sodium 144 Potassium 3.0 L 3.3 Chloride 113 H Carbon Dioxide 23 Anion Gap 11 L BUN 10 Creatinine 1.24 Estim Creat Clear Calc 39.4 Estimated GFR 43 Random Glucose 97 Calcium 8.4 Preliminary micro results at discharge 04/25/24 09:57 Blood Culture - Preliminary Blood - Venous No growth after 48 hours. 04/25/24 09:57 Blood Culture - Preliminary Blood - Venous No growth after 48 hours. Discharge Plan Discharge Patient Disposition: Xfer Inpatient Rehab Fac Discharge Diagnosis: Atrial fibrillation with rapid ventricular response Status post cardioversion E coli UTI Nausea and vomiting Referrals: Amina Whitfield MD [Primary Care Provider] - 1 Week Discharge Medications: Continued atorvastatin 80 mg tablet 80 mg PO BEDTIME Qty: 90 1RF clopidogrel 75 mg tablet 75 mg PO DAILY Qty: 90 3RF Eliquis 5 mg tablet 5 mg PO BID Qty: 180 3RF fluticasone propion-salmeterol 113-14 mcg/actuation aerosol powdr breath activated 1 inh inhalation Q12H 30 Days Qty: 1 1RF furosemide 20 mg tablet 40 mg PO DAILY 90 Days Qty: 180 0RF Protocol: Hold for SBP< HOLD for SBP < : 90 potassium chloride 20 mEq tablet extended release 20 meq PO DAILY Qty: 90 1RF cyanocobalamin (vitamin B-12) [Vitamin B-12] 1,000 mcg Tablet 1,000 mcg PO DAILY cholecalciferol (vitamin D3) [Vitamin D3] 25 mcg (1,000 unit) Tablet 25 mcg PO DAILY melatonin 10 mg Tablet 10 mg PO BEDTIME amiodarone 200 mg tablet 200 mg PO DAILY acetaminophen 500 mg Tablet 1,000 mg PO TID hydromorphone [Dilaudid] 2 mg Tablet 1 mg PO Q4H PRN (Reason: Pain) bisacodyl 10 mg Suppository 10 mg OH DAILY PRN (Reason: Constipation) Fleet Enema 19-7 gram/118 mL Enema 118 ml OH DAILY PRN (Reason: Constipation) docusate sodium [Colace] 100 mg Capsule 100 mg PO BID lactulose 10 gram/15 mL Solution 15 ml PO DAILY Senna Plus 8.6-50 mg Capsule 2 tab-cap PO BID cefuroxime axetil 500 mg tablet 500 mg PO BID Qty: 22 0RF Rx Instructions: END DATE: 05/05/24 pantoprazole 40 mg tablet,delayed release (DR/EC) 40 mg PO DAILY@0630 albuterol sulfate 90 mcg/actuation HFA aerosol inhaler 2 puff inhalation Q4H PRN (Reason: wheezing) magnesium hydroxide [Milk of Magnesia] 400 mg/5 mL Suspension 30 ml PO DAILY PRN (Reason: Constipation) Culturelle 10 billion cell Capsule 1 cap PO BID Rx Instructions: END DATE: 05/05/24 paroxetine HCl 40 mg tablet 40 mg PO BEDTIME metoprolol succinate 25 mg tablet extended release 24 hr 25 mg PO DAILY levothyroxine [Synthroid] 50 mcg tablet 50 mcg PO DAILY@0600 Diet: Advance to usual diet Activity on Discharge: As tolerated Stand Alone Forms: Patient Portal Discharge page Print Language: Welsh Health Concerns: Atrial fibrillation with rapid ventricular response Status post cardioversion E coli UTI Nausea and vomiting Plan of Treatment: Follow-up with primary care provider as needed Take all medications as prescribed Assessment: See discharge summary
--- NOTE | 2024-04-27 14:42 | HO.WOUND ---
Wound Consult: Initial 68yr old?female admitted to [facility] on 04/25/24 - See progress notes and H&P for detailed history.? Wound consult placed for Coccyx Wound POA.? Patient agreeable to assessment and photo documentation.? Sacrum Etiology: ?Unstageable Pressure Injury ?Present on Admission Wound Bed: adherent yellow slough Drainage / Odor: serosang no odor noted Edges: ? irregular and unattached Anahy wound: ? MASD and hyperpigmentation noted - evidence of previous pressure injury noted - No Induration, Fluctuance or Warmth noted Pain: denies pain Goals of Treatment: ?Santyl for enzymatic debridement The patient requested I assess her left heel and maleolus due to tenderness. The area to the maleolus was intact and no pigmentation changes noted - however preventative foam was applied given patient tenderness and over a bony prominence. Bilateral Heels were assessed for redness, remain intact and blanchable - preventative foams applied and elevated off of bed surface with pillows. ; Recommendations: 1. Turn and Reposition every 2 hours and as needed for patient comfort.? Use pillows or wedges to support off loading positions. 2. Off Load all bony prominences with use of pillows and heel boots if needed.? Apply Preventative foams where needed. ? 3. Monitor for incontinence and moisture control, use barrier creams when needed for prevention and treatment. 4. Provide adequate and supplemental nutrition.? 5. Order low air loss mattress. 6. When applicable maintain blood glucose levels per Providers order. 7. Sacrum - Off Load Pressure - Cleanse with normal saline, pat dry. ?Apply barrier to the immediate anahy wound, apply thick layer of Santyl to entire wound bed, cover with saline moist gauze, secure foam dressing, change Daily. 8. Bilateral Heels - Routine Cleansing. Apply foam dressing, peel back and assess Q shift and change every 3 days and PRN. Elevate heels off of bed surface with pillows or heel protector boots. 9. Intergluteal and Perineal - Cleanse with PH balance spray or wipes, pat dry. ?Apply thin layer of Triad to reddened - only pat and dab no scrub and rub when soiling occurs. Reapply thin layer PRN after each episode of incontinence. Re-consult wound care Nurse for wound deterioration or wound changes.
--- NOTE | 2024-04-27 15:33 | PC.NURSE ---
Patient refused her morning PO medication, MD aware.
[2024-04-27] MEDS: Tamsulosin HCL 0.4 MG CAPSULE PO (15:43)
--- NOTE | 2024-04-27 16:11 | P.CDIM_ITS ---
PROVIDER RESPONSE TEXT: To clarify, the appropriate diagnosis supported by the clinical indicators: CKD, please provide stage: 3b QUERY TEXT: PHYSICIAN'S DOCUMENTATION REQUEST Date of Query: 04/27/2024 07:37 AM EDT Patient Name: Alden Garcia Admit Date: 04/25/2024 Dear Zina Lamb, A review of the medical record indicates additional documentation may be needed. Please review below and update the documentation accordingly. Clinical Indicators: Urology consult note 04/26 - PMH of CKD ED 04/25 - PMH of CKD GRF 37 43 CR 1.42 1.24 BUN 16 10 Please clarify which of the following accurately represents the stage of this patient's history of CK D: CKD, please provide stage 1, 2, 3a, 3b, 4 Other (explain) Clinically unable to determine (explain) Thank you, Roxi Jain, CCS, CDIS Use of terms such as suspected, likely, concern for, or probable (associated with a specific diagnosi s that is being evaluated, monitored, or treated as if it exists) are acceptable and can be coded in the inpatient se tting, when documented at the time of discharge. Please use your independent medical judgment in providing your response. THIS QUERY IS PART OF THE PERMANENT MEDICAL RECORD
[2024-04-27] MEDS: PARoxetine HCL 40 MG TABLET PO (21:03)
[2024-04-27] MEDS: Melatonin 3 MG TABLET 9 MG PO (21:04)
[2024-04-27] MEDS: Atorvastatin Calcium 80 MG TABLET PO (21:04)
[2024-04-27] MEDS: Apixaban 5 MG TABLET PO (21:04)
[2024-04-28] VITALS (7 sets, daily range): BP systolic 103–147; BP diastolic 57–84; PULSE 90–102; RESP 16–19; TEMP 36–37; O2SAT 93–100
[2024-04-28] MEDS: Levothyroxine Sodium 50 MCG TABLET PO (05:47)
[2024-04-28 07:15] LABS: Anion Gap 10 (12-20); Blood Urea Nitrogen 8 mg/dL (9-16); Calcium 8.6 mg/dL (8.4-10.2); Carbon Dioxide 25 mmol/L (22-29); Chloride 111 mmol/L (96-108); Creatinine Clr Calc Pharmacy 43.4; Estimated Glomerular Filt Rate 48; Glucose Random 92 mg/dL (60-115); Potassium 2.8 mmol/L (3.3-5.1); Sodium 143 mmol/L (135-145)
[2024-04-28 07:48] LABS: Magnesium 1.9 mg/dL (1.6-2.6)
[2024-04-28] MEDS: Fluticasone/Vilanterol 100/25 BLST.W.DEV 1 PUFF INHALE (08:05)
[2024-04-28] MEDS: Tamsulosin HCL 0.4 MG CAPSULE PO (09:03)
[2024-04-28] MEDS: Acetaminophen 325 MG TABLET 650 MG PO ×2 (09:03→21:51)
[2024-04-28] MEDS: Potassium Chloride/H20 10 MEQ/100 ML PIGGYBACK 100 MEQ IV ×4 (09:03→15:06)
[2024-04-28] MEDS: Metoprolol Succinate ER 25 MG TAB.ER.24H PO (09:03)
[2024-04-28] MEDS: Famotidine/PF 20 MG/2 ML VIAL IVPUSH (09:03)
[2024-04-28] MEDS: Cyanocobalamin (Vitamin B-12) 1,000 MCG TABLET 1000 MCG PO (09:04)
[2024-04-28] MEDS: Amiodarone HCL 200 MG TABLET PO (09:04)
[2024-04-28] MEDS: Clopidogrel Bisulfate 75 MG TABLET PO (09:04)
[2024-04-28] MEDS: Cholecalciferol (Vitamin D3) 25 MCG TABLET PO (09:04)
[2024-04-28] MEDS: Furosemide 40 MG TABLET PO (09:04)
[2024-04-28] MEDS: Apixaban 5 MG TABLET PO ×2 (09:04→21:52)
[2024-04-28] MEDS: Collagenase Clostridium Hist. 30 GM TUBE 1 APPL TOPICAL (09:04)
--- NOTE | 2024-04-28 10:43 | MHC.CLN ---
F/U PT WITH INCREASED NUTRITION RISK R/T PRESSURE INJURY PO INTAKE 50% X 1 MEAL DIET ADVANCED TO 2GM NA APPROPRIATE RECOMMEND CHANGING SUPPLEMENT TO ENSURE BID WITH MEAL TO PROMOTE WOUND HEALING SUPP TO PROVIDE 700KCALS, 40G PROTEIN MONITOR PO INTAKE AND ENCOURAGE SUPPLEMENTS
[2024-04-28] MEDS: cefTRIAXone sodium 1 GM in 0.9 % Sodium Chloride 50 ML IV (11:40)
--- NOTE | 2024-04-28 11:51 | MHC.CM.PN ---
EMR REVIEWED, PT W/AFIB W/RVR/PO INTOLERANCE NOW W/HYPOKALEMIA NOT MEDICALLY CLEARED FOR DC, TODD HAMPTON UPDATED AND WILL CONT TO FOLLOW, CM WILL CONT TO FOLLOW DC NEEDS.
--- NOTE | 2024-04-28 12:01 | HO.PM.IMPN ---
Subjective Subjective Date of Service: 04/28/24 Review of Systems Follow up n/v, afib feeling better eating solid food Physical Exam Vital Signs: Vital Signs: Last Vital Signs Temp 97.7 F 04/28/24 08:00 Pulse 90 04/28/24 08:07 Resp 18 04/28/24 08:07 BP 117/84 04/28/24 08:00 Pulse Ox 95 04/28/24 08:00 O2 Del Method Room Air 04/28/24 08:00 BMI result Body Mass Index 22.8 Appearing in no acute distress lung sounds are clear to auscultation heart regular rate rhythm, clear S1, S2 positive bowel sounds, abdomen is soft, nontender neuro patient is alert x3, no focal deficits Objective Data Active Medications Acetaminophen (Acetaminophen 325 Mg Tablet) 650 mg PO Q6H PRN PRN Reason: Pain, Mild (Pain Scale 1-3), fever or headache Last Admin: 04/28/24 09:03 Dose: 650 mg Documented By: GODWIN Albuterol Sulfate (Albuterol Sulfate 90 Mcg 8 Gm Inhaler) 2 puff INHALE Q4H PRN PRN Reason: wheezing Amiodarone HCl (Amiodarone Hcl 200 Mg Tablet) 200 mg PO DAILY [facility] Last Admin: 04/28/24 09:04 Dose: 200 mg Documented By: GODWIN Apixaban (Apixaban 5 Mg Tablet) 5 mg PO BID [facility] Last Admin: 04/28/24 09:04 Dose: 5 mg Documented By: GODWIN Atorvastatin Calcium (Atorvastatin Calcium 80 Mg Tablet) 80 mg PO BEDTIME [facility] Last Admin: 04/27/24 21:04 Dose: 80 mg Documented By: LAFLAMC Calcium Carbonate (Calcium Carbonate 750 Mg Tab.Chew) 750 mg PO Q4H PRN PRN Reason: Heartburn Clopidogrel Bisulfate (Clopidogrel Bisulfate 75 Mg Tablet) 75 mg PO DAILY [facility] Last Admin: 04/28/24 09:04 Dose: 75 mg Documented By: GODWIN Collagenase (Collagenase Clostridium Hist. 30 Gm Tube) 1 appl TOPICAL DAILY [facility]; Protocol Last Admin: 04/28/24 09:04 Dose: 1 appl Documented By: GODWIN Cyanocobalamin (Cyanocobalamin (Vitamin B-12) 1,000 Mcg Tablet) 1,000 mcg PO DAILY [facility] Last Admin: 04/28/24 09:04 Dose: 1,000 mcg Documented By: GODWIN Famotidine (Famotidine/Pf 20 Mg/2 Ml Vial) 20 mg IVPUSH DAILY [facility] Last Admin: 04/28/24 09:03 Dose: 20 mg Documented By: GODWIN Fluticasone/Vilanterol (Fluticasone/Vilanterol 100/25 Blst.W.Dev) 1 puff INHALE RDAILY [facility] Last Admin: 04/28/24 08:05 Dose: 1 puff Documented By: ELIZABETH Furosemide (Furosemide 40 Mg Tablet) 40 mg PO DAILY [facility]; Protocol Last Admin: 04/28/24 09:04 Dose: 40 mg Documented By: GODWIN Hydromorphone HCl (Hydromorphone Hcl 2 Mg Tablet) 1 mg PO Q4H PRN PRN Reason: Pain, Severe (Pain Scale 7-10) Ceftriaxone Sodium 1 gm/ (Sodium Chloride) 50 mls @ 100 mls/hr IV Q24H [facility] Last Admin: 04/28/24 11:40 Dose: 100 mls/hr Documented By: GODWIN Levothyroxine Sodium (Levothyroxine Sodium 50 Mcg Tablet) 50 mcg PO DAILY@0600 [facility] Last Admin: 04/28/24 05:47 Dose: 50 mcg Documented By: NE Magnesium Hydroxide (Milk Of Magnesia 30 Ml Oral.Susp) 30 ml PO DAILY PRN PRN Reason: Constipation Melatonin (Melatonin 3 Mg Tablet) 6 mg PO BEDTIME PRN PRN Reason: Insomnia Melatonin (Melatonin 3 Mg Tablet) 9 mg PO BEDTIME [facility] Last Admin: 04/27/24 21:04 Dose: 9 mg Documented By: NE Metoprolol Succinate (Metoprolol Succinate Er 25 Mg Tab.Er.24h) 25 mg PO DAILY [facility]; Protocol Last Admin: 04/28/24 09:03 Dose: 25 mg Documented By: GODWIN Ondansetron HCl (Ondansetron Hcl 4 Mg/2 Ml Vial) 4 mg IVPUSH Q8H PRN PRN Reason: Nausea and Vomiting Last Admin: 04/27/24 10:57 Dose: 4 mg Documented By: WAYNE Paroxetine HCl (Paroxetine Hcl 40 Mg Tablet) 40 mg PO BEDTIME [facility] Last Admin: 04/27/24 21:03 Dose: 40 mg Documented By: NE Sodium Chloride (0.9 % Sodium Chloride Flush 3 Ml Syringe) 3 ml IVFLUSH QSHIFT [facility] Last Admin: 04/28/24 11:14 Dose: Not Given Documented By: GODWIN Non-Admin Reason: IV Running Tamsulosin HCl (Tamsulosin Hcl 0.4 Mg Capsule) 0.4 mg PO DAILY [facility] Last Admin: 04/28/24 09:03 Dose: 0.4 mg Documented By: GODWIN Vitamin D (Cholecalciferol (Vitamin D3) 25 Mcg Tablet) 25 mcg PO DAILY [facility] Last Admin: 04/28/24 09:04 Dose: 25 mcg Documented By: GODWIN Labs 04/26/24 06:23 04/28/24 06:18 Labs: Laboratory Results - last 24 hr 04/28/24 06:18 Anion Gap 10 L Estim Creat Clear Calc 43.4 Estimated GFR 48 Random Glucose 92 Calcium 8.6 Magnesium 1.9 Microbiology Microbiology Results: Microbiology 04/25/24 09:57 Blood Culture - Preliminary Blood - Venous No growth after 48 hours. 04/25/24 09:57 Blood Culture - Preliminary Blood - Venous No growth after 48 hours. Assessment and Plan (1) Nausea: Status: Acute (2) Atrial fibrillation with rapid ventricular response: Status: Acute Plan 68-year-old female with history of multiple sclerosis, COPD, CHF, cardiomyopathy, coronary artery disease, hypertension, PAD, paroxysmal atrial fibrillation anticoagulated with Eliquis, hypothyroidism, renal artery stenosis who is a former smoker admitted for further management of afib rvr in the setting of gi losses/poor po intake acute Hypokalemia likely from poor po intake IV replacement, refusing po monitor Ecoli UTI 04/21/24 cx frequent UTIs urology consultation>bladder scan Q shift, may require clean intermittent catheterization if urine retention noted continue Rocephin (started 04/25/24) Paroxysmal atrial fibrillation with rvr. Resolved rate controlled on admission, suspect r/t dehydration continue amiodarone, metoprolol continue eliquis Acute nausea/diarrhea with PO intolerance. Resolved diet advanced to reg solid antiemetics prn PPI tolerating Elevated trops/ST depressions with hx of CAD no chest pain, but here with nausea/diaphoresis/dry heaves Had PETRA 2021 Trops flat 18--> 19. EKG with ST depressions in lateral leads Continue eliquis, plavix, bb, statin cardiology consult>no further cardiac workup at this time HFrEF clinically euvolemic echo with EF 40-45% with rwma continue po diuretics COPD no exacerbation continue maintenance inhalers, albuterol prn hypothyroidism levothyroxine Chronic constipation prn mom DVT prophylaxis- eulalia Full code DISPO back to Bhavna Edwards when medically clear reason for continued hospitalization:hypokalemia Quality Stroke Does the patient have a stroke diagnosis?: No VTE Prior VTE?: No VTE Risk Level:: Medical - moderate - high VTE Device Contraindication: Treatment Not Indicated VTE Drug Contraindication: N/A - Med Ordered
--- NOTE | 2024-04-28 18:04 | PC.NURSE ---
pt unable to void. bladder scanned for 600ml around 1400. pt str cath'ed for 400ml
[2024-04-28] MEDS: Melatonin 3 MG TABLET 9 MG PO (21:52)
[2024-04-28] MEDS: Atorvastatin Calcium 80 MG TABLET PO (21:52)
[2024-04-28] MEDS: PARoxetine HCL 40 MG TABLET PO (21:52)
[2024-04-29] VITALS: BP 114/73; PULSE 97; RESP 16; TEMP 36; O2SAT 95
[2024-04-29 03:47] VITALS: BP 115/63; PULSE 102; RESP 18; TEMP 37; O2SAT 94
[2024-04-29] MEDS: Levothyroxine Sodium 50 MCG TABLET PO (05:58)
[2024-04-29] MEDS: Fluticasone/Vilanterol 100/25 BLST.W.DEV 1 PUFF INHALE (07:46)
[2024-04-29 07:47] VITALS: BP 117/65; PULSE 86; RESP 20; TEMP 36.4; O2SAT 96
[2024-04-29 07:48] VITALS: PULSE 81; RESP 16; O2SAT 99
[2024-04-29] MEDS: Cholecalciferol (Vitamin D3) 25 MCG TABLET PO (08:22)
[2024-04-29] MEDS: Tamsulosin HCL 0.4 MG CAPSULE PO (08:22)
[2024-04-29] MEDS: Famotidine/PF 20 MG/2 ML VIAL IVPUSH (08:22)
[2024-04-29] MEDS: Furosemide 40 MG TABLET PO (08:22)
[2024-04-29] MEDS: Amiodarone HCL 200 MG TABLET PO (08:22)
[2024-04-29] MEDS: Clopidogrel Bisulfate 75 MG TABLET PO (08:22)
[2024-04-29] MEDS: Apixaban 5 MG TABLET PO (08:22)
[2024-04-29] MEDS: Metoprolol Succinate ER 25 MG TAB.ER.24H PO (08:23)
[2024-04-29] MEDS: 0.9 % Sodium Chloride Flush 3 ML SYRINGE IVFLUSH (08:23)
[2024-04-29] MEDS: Cyanocobalamin (Vitamin B-12) 1,000 MCG TABLET 1000 MCG PO (08:23)
[2024-04-29] MEDS: Collagenase Clostridium Hist. 30 GM TUBE 1 APPL TOPICAL (08:33)
[2024-04-29 09:30] LABS: Hematocrit 28.5 % (37.0-47.0); Hemoglobin 8.9 g/dl (12.0-16.0); Mean Corpuscular HGB Conc 31.2 g/dl (31.0-35.0); Mean Corpuscular Hemoglobin 25.1 pg (27.0-33.0); Mean Corpuscular Volume 80.5 fL (80.0-98.0); Mean Platelet Volume 9.1 fL (9.4-12.3); Platelet Count 393 X10*3/uL (160-400); Red Blood Count 3.54 X10*6/uL (4.20-5.50); Red Cell Distribution Width 21.6 % (11.0-16.0); White Blood Count 9.2 X10*3/uL (4.8-10.8)
[2024-04-29 09:41] LABS: Anion Gap 15 (12-20); Blood Urea Nitrogen 9 mg/dL (9-16); Calcium 8.1 mg/dL (8.4-10.2); Carbon Dioxide 21 mmol/L (22-29); Chloride 110 mmol/L (96-108); Creatinine Clr Calc Pharmacy 42.6; Estimated Glomerular Filt Rate 47; Glucose Fasting 88 mg/dL (60-99); Magnesium 1.7 mg/dL (1.6-2.6); Potassium 3.2 mmol/L (3.3-5.1); Sodium 143 mmol/L (135-145)
--- NOTE | 2024-04-29 10:18 | P.DS_ITS ---
DS: Providers Provider Date of Service: 04/29/24 Date of admission: 04/25/24 15:56 Primary care physician: Amina Whitfield MD Consults: 04/25/24 15:30 Consult to Cardiology Routine Consulting Provider: [facility] [place] [facility] Reason for consultation: elevated (but flat) trops, ST depressions. on eliquis 04/26/24 11:04 Consult to Urology Routine Consulting Provider: Alyssa Thomas Reason for consultation: frequent UTI 04/26/24 19:13 Consult to Wound Care Routine Reason for consultation: coccyx wound DS: Diagnosis Discharge Diagnosis (1) Nausea: Status: Acute (2) Atrial fibrillation with rapid ventricular response: Status: Acute DS: Summary Hospital Course Hospital Course: History and physical as per admitting provider. 68-year-old female with history of multiple sclerosis, COPD, CHF, cardiomyopathy, coronary artery disease, hypertension, PAD, paroxysmal atrial fibrillation anticoagulated with Eliquis, hypothyroidism, renal artery stenosis who is a former smoker presented to the ED earlier today for evaluation of diaphoresis, malaise, nausea, and dry heaves that started this morning. She has not been tolerating PO. She was recently admitted from 04/21-04/23 for acute pyelonephritis treated with ceftriaxone and discharged on cefuroxime. Pt reports she was feeling well until this morning. Does report chronic constipation and has been getting multiple medications for constipation including lactulose. Reports yesterday had two episodes of diarrhea but no recurrence today. No fevers, chills, abd pain, vomiting, melena, hematochezia, urinary symptoms, lightheadedness, palpitations, sob, chest pain. Since arrival, VSS though hypertensive to 175/92 on admission. She has been intermittently tachycardic in the low 100s noted to be in Afib on the tele monitor. EKG shows afib, rate 79, wtih ST depressions noted in anterior leads as well as inversions. Initial trop 18, repeat 19. No leukocytosis. Stable normocytic anemia. Renal function baseline, lytes wnl. UA with 3+ leuks, 2+ blood, +urinary sediment, no bacteria. CXR negative for acute cardiopulmonary abnormality. In the ED, has been given IV NS, IV ctx (in place of cefuroxime given PO intolerance), and po vanco given diarrhea episodes in setting of recent antibiotic use. Ecoli UTI from urine culture on 04/21/2024. She does have frequent UTIs. Urology saw her and recommended bladder scan q.shift and straight catheterization as needed for greater than 400ml. Started on Flomax And treated with IV Rocephin, she should completed treatment. Paroxysmal atrial fibrillation with rvr. Resolved. Rate controlled was on admission, see likely had some degree of dehydration. Continued on amiodarone, metoprolol and Eliquis Acute nausea/diarrhea with PO intolerance. Resolved, possibly some degree of gastritis. Diet was advanced to solid. She can continue PPI and antiemetics at home as needed Elevated trops/ST depressions with hx of CAD . no chest pain, but here with nausea/diaphoresis/dry heaves. Had PETRA 2021. Trops flat 18--> 19. EKG with ST depressions in lateral leads. Continue eliquis, plavix, bb, statin Seen evaluated by Cardiology with no further cardiac workup recommended. Hypokalemia . acute, replaced HFrEF clinically euvolemic. echo with EF 40-45% with rwma . continue po diuretics COPD. no exacerbation. continue maintenance inhalers hypothyroidism. levothyroxine Chronic constipation. prn mom patient will be discharged to SNF Time Attestation Discharge Coordination Time (in mins): 38 Quality: Safe Use of Opioids Does Pt have an Active Cancer Diagnosis on the Problem List?: No Quality: Stroke Does the patient have a stroke diagnosis?: No Physical Exam Vital Signs: Vital Signs: Last Vital Signs Temp 97.5 F 04/29/24 07:47 Pulse 81 04/29/24 07:48 Resp 16 04/29/24 07:48 BP 117/65 04/29/24 07:47 Pulse Ox 96 04/29/24 07:47 O2 Del Method Room Air 04/29/24 07:47 BMI result Body Mass Index 22.8 DS: Data Data Completed and Pending Completed studies during hospitalization [Text1]: Procedures Replacement of Left Hip Joint with Ceramic Synthetic Substitute, Uncemented, Open Approach (03/30/24) Hindu of Cardiac Rhythm, Single (09/13/21) Transfusion of Nonautologous Red Blood Cells into Peripheral Vein, Percutaneous Approach (03/30/24) Labs on day of discharge: Laboratory Results - last 24 hr 04/29/24 08:57 WBC 9.2 RBC 3.54 L Hgb 8.9 L Hct 28.5 L MCV 80.5 MCH 25.1 L MCHC 31.2 RDW 21.6 H Plt Count 393 MPV 9.1 L Absolute Nucleated RBC 0.000 Nucleated RBC % (auto) 0.0 Sodium 143 Potassium 3.2 L Chloride 110 H Carbon Dioxide 21 L Anion Gap 15 BUN 9 Creatinine 1.15 Estim Creat Clear Calc 42.6 Estimated GFR 47 Fasting Glucose 88 Calcium 8.1 L Magnesium 1.7 Preliminary micro results at discharge 04/25/24 09:57 Blood Culture - Preliminary Blood - Venous No growth after 48 hours. 04/25/24 09:57 Blood Culture - Preliminary Blood - Venous No growth after 48 hours. Discharge Plan Discharge Anticipated Discharge Date/Time: 04/29/24 10:14 Patient Disposition: er [facility] Discharge Diagnosis: Atrial fibrillation with rapid ventricular response Status post cardioversion E coli UTI Nausea and vomiting Referrals: Amina Whitfield MD [Primary Care Provider] - 1 Week Discharge Medications: New tamsulosin 0.4 mg Capsule 0.4 mg PO DAILY Qty: 0 0RF Continued atorvastatin 80 mg tablet 80 mg PO BEDTIME Qty: 90 1RF clopidogrel 75 mg tablet 75 mg PO DAILY Qty: 90 3RF Eliquis 5 mg tablet 5 mg PO BID Qty: 180 3RF fluticasone propion-salmeterol 113-14 mcg/actuation aerosol powdr breath activated 1 inh inhalation Q12H 30 Days Qty: 1 1RF furosemide 20 mg tablet 40 mg PO DAILY 90 Days Qty: 180 0RF Protocol: Hold for SBP< HOLD for SBP < : 90 potassium chloride 20 mEq tablet extended release 20 meq PO DAILY Qty: 90 1RF cyanocobalamin (vitamin B-12) [Vitamin B-12] 1,000 mcg Tablet 1,000 mcg PO DAILY cholecalciferol (vitamin D3) [Vitamin D3] 25 mcg (1,000 unit) Tablet 25 mcg PO DAILY melatonin 10 mg Tablet 10 mg PO BEDTIME amiodarone 200 mg tablet 200 mg PO DAILY acetaminophen 500 mg Tablet 1,000 mg PO TID hydromorphone [Dilaudid] 2 mg Tablet 1 mg PO Q4H PRN (Reason: Pain) bisacodyl 10 mg Suppository 10 mg AL DAILY PRN (Reason: Constipation) Fleet Enema 19-7 gram/118 mL Enema 118 ml AL DAILY PRN (Reason: Constipation) docusate sodium [Colace] 100 mg Capsule 100 mg PO BID Senna Plus 8.6-50 mg Capsule 2 tab-cap PO BID pantoprazole 40 mg tablet,delayed release (DR/EC) 40 mg PO DAILY@0630 albuterol sulfate 90 mcg/actuation HFA aerosol inhaler 2 puff inhalation Q4H PRN (Reason: wheezing) magnesium hydroxide [Milk of Magnesia] 400 mg/5 mL Suspension 30 ml PO DAILY PRN (Reason: Constipation) Culturelle 10 billion cell Capsule 1 cap PO BID Rx Instructions: END DATE: 05/05/24 paroxetine HCl 40 mg tablet 40 mg PO BEDTIME metoprolol succinate 25 mg tablet extended release 24 hr 25 mg PO DAILY levothyroxine [Synthroid] 50 mcg tablet 50 mcg PO DAILY@0600 Changed lactulose 10 gram/15 mL Solution 15 ml PO DAILY PRN (Reason: constipation) Qty: 3000 0RF Discontinued cefuroxime axetil 500 mg tablet 500 mg PO BID Qty: 22 0RF Rx Instructions: END DATE: 05/05/24 Discharge Orders: Discharge Order (Routine); Ordered 04/29/24 Ordered By: Ant Bhagat Diet: Advance to usual diet Activity on Discharge: As tolerated Stand Alone Forms: Patient Portal Discharge page Print Language: Serbian Care Plan Goals: recovery Health Concerns: Atrial fibrillation with rapid ventricular response Status post cardioversion E coli UTI Nausea and vomiting Plan of Treatment: Follow-up with primary care provider as needed Take all medications as prescribed Assessment: See discharge summary
[2024-04-29 11:28] VITALS: BP 127/60; PULSE 93; RESP 17; TEMP 36.3; O2SAT 99
--- NOTE | 2024-04-29 11:34 | MHC.CM.PN ---
IMM 04/29/24 PT AGREEABLE TO RETURN TO [facility] TODAY, PT IS MEDICALLY CLEARED, PT REQUESTED CM CONTACT PT'S SISTER HOWEVER NUMBER ON FILE IS INCORRECT, CM WILL REACH OUT TO SNF IF UNABLE TO FIND PT'S SISTER'S NUMBER, [facility] FOR TRANSPORT AT 12:30PM.
[2024-04-29] MEDS: Potassium Chloride ER 20 MEQ TAB.ER.PRT 40 MEQ PO (11:47)
[2024-04-29] MEDS: cefTRIAXone sodium 1 GM in 0.9 % Sodium Chloride 50 ML IV (11:48)
[2024-04-29] MEDS: ondansetron HCL 4 MG/2 ML VIAL IVPUSH (11:50)
== END 2024-04-29 12:33 | disposition skilled nursing facility (03) | DRG 690 ==
LOC: HO.ED 12:15 → HO.EDOVER 15:56 → HO.IMC 04-26 01:24
PROVIDERS: Nurse Practitioner Acute Care; Admitting Provider Physician Assistant; Emergency Provider Emergency Medicine; PCP Internal Medicine; Visit Provider Internal Medicine
DX: N39.0 Urinary tract infection, site not specified (principal); I50.22 Chronic systolic (congestive) heart failure; I42.9 Cardiomyopathy, unspecified; I25.10 Atherosclerotic heart disease of native coronary artery without angina pectoris; I48.0 Paroxysmal atrial fibrillation; J44.9 Chronic obstructive pulmonary disease, unspecified; K29.70 Gastritis, unspecified, without bleeding; K59.09 Other constipation; B96.20 Unspecified Escherichia coli [E. coli] as the cause of diseases classified elsewhere; N31.8 Other neuromuscular dysfunction of bladder; E87.6 Hypokalemia; N18.32 Chronic kidney disease, stage 3b; D63.1 Anemia in chronic kidney disease; E03.9 Hypothyroidism, unspecified; E86.0 Dehydration; G35 Multiple sclerosis; Z20.822 Contact with and (suspected) exposure to COVID-19; Z87.440 Personal history of urinary (tract) infections; Z95.5 Presence of coronary angioplasty implant and graft; Z79.01 Long term (current) use of anticoagulants; Z79.02 Long term (current) use of antithrombotics/antiplatelets; Z79.890 Hormone replacement therapy; Z79.899 Other long term (current) drug therapy
CPT/HCPCS: 0241U; 36415; 71045; 80048; 80076; 81001; 83605; 83690; 83735; 84132; 84484; 85025; 85027; 87040; 87086; 93005; 93306; 94640; 99285; J0696; J2405; J3480; Q9957

== ENCOUNTER 2024-04-25 15:56 | Outpatient (BNV) | payer MEDICARE, BC, SELFPAY | END 2024-04-26 07:00 | PROVIDERS: Admitting Provider Physician Assistant; Emergency Provider Emergency Medicine; PCP Internal Medicine; Visit Provider Internal Medicine | DX: I48.91 Unspecified atrial fibrillation (principal) | CPT/HCPCS: 93306 ==

== ENCOUNTER → 2024-04-25 15:56 | Outpatient (BNV) | payer MEDICARE, BC, SELFPAY | PROVIDERS: Admitting Provider Physician Assistant; Emergency Provider Emergency Medicine; PCP Internal Medicine; Visit Provider Urology | DX: N10 Acute pyelonephritis (principal); N31.9 Neuromuscular dysfunction of bladder, unspecified | CPT/HCPCS: 99222 ==

== ENCOUNTER → 2024-04-25 15:56 | Outpatient (BNV) | payer MEDICARE, BC, SELFPAY | PROVIDERS: Admitting Provider Physician Assistant; Emergency Provider Emergency Medicine; PCP Internal Medicine; Visit Provider Physician Assistant | DX: I48.0 Paroxysmal atrial fibrillation (principal); R11.0 Nausea | CPT/HCPCS: 99223; 99232; 99239 ==

== ENCOUNTER → 2024-04-25 15:56 | Outpatient (BNV) | payer MEDICARE, BC, SELFPAY | PROVIDERS: Admitting Provider Physician Assistant; Emergency Provider Emergency Medicine; PCP Internal Medicine; Visit Provider Internal Medicine | DX: I48.91 Unspecified atrial fibrillation (principal); R79.89 Other specified abnormal findings of blood chemistry; R94.31 Abnormal electrocardiogram [ECG] [EKG] | CPT/HCPCS: 93010; 99223 ==

== ENCOUNTER 2024-05-17 14:29 | Outpatient (AMB) | payer MEDICARE, BC, SELFPAY ==
--- NOTE | 2024-05-17 14:31 | MHC.OFFVIS ---
Vital Signs 05/17/24 14:36 Height 5 ft 6 in Weight 137 lb BMI 22.1 Intake Visit Reasons: 6 WK PO: L KATHERINE w/NE 03/30/24 Intake Note: Alden is a 68 year old female who presents today for a post operative visit s/p Left KATHERINE 03/30/24. Patient reports that she is doing well. She explains that she has a bed sore on her tailbone,which is being treated by [facility]. Allergies codeine [Codeine] Adverse Reaction (Mild, Verified 04/25/24 09:37) vomiting HPI HPI 6 WK PO: L KATHERINE w/NE 03/30/24: Details: Nai is doing well 6 weeks s/p left KATHERINE. She has no complaints. She is doing home PT. [facility] Medical History (Updated 05/01/24 @ 00:02 by Background Daemon) Atrial fibrillation with rapid ventricular response Osteoarthritis of left hip Bilateral cataracts History of cardioversion Myocardial infarction Arthritis Hx of transfusion of packed red blood cells Thyroid disease GERD (gastroesophageal reflux disease) CKD (chronic kidney disease) On anticoagulant therapy History of smoking 30 or more pack years PAF (paroxysmal atrial fibrillation) Left renal artery stenosis Personal history of nicotine dependence Cardiomyopathy Essential hypertension Atherosclerotic cardiovascular disease Asymmetric blood pressures Acute on chronic systolic (congestive) heart failure CHF (congestive heart failure) CAD (coronary artery disease) Multiple sclerosis Pulmonary nodules COPD (chronic obstructive pulmonary disease) Peripheral arterial occlusive disease Surgical History (Updated 05/01/24 @ 00:02 by Background Daemon) History of endoscopy History of colonoscopy History of heart artery stent (~2018) Status post angioplasty with stent (~09/2018) S/P insertion of iliac artery stent (~02/2019) S/P cardiac cath (~12/2020) History of cholecystectomy (~02/2009) Family History Father No problems noted. Mother No problems noted. Brother Diabetes Social History Household Members: None Housing: House Housing Other:: Sent in from [facility] Are you a primary direct support professional caregiver to a significant other at home: No Do you presently have visiting nurse or other home services: No Alcohol intake: never Comment: aware of trip hazard Patient Tobacco Use Status: Former Tobacco user Tobacco use type: Cigarette e-Cigarette/Vaping Use: Never Used Second Hand Smoke Exposure: No Advance Directives Date on File: 12/27/20 service: No Current occupational status: retired Cognitive needs: Yes (cane) Hearing needs: No Vision needs: Yes (reading glasses) Physical Exam Vital Signs: BMI result Body Mass Index 22.1 Extrem Other: inc c/d/i no pain with hip ROM no gait antalgia Assessment & Plan Assessment & Plan (1) Status post total hip replacement, left: Code(s): Z96.642 - Presence of left artificial hip joint Category: Surgical Plan: Outpatient PT Continue daily activity On Eliquis f/u 6 weeks Orders: Orders PT Evaluation and Treatment Today Z96.642 - Presence of left artificial hip joint Coding Level of Care Code Global (56765) Diagnoses Status post total hip replacement, left Z96.642
[2024-05-17 14:36] VITALS: BMI 22.1
== END 2024-05-17 15:14 | disposition home or self-care (01) ==
PROVIDERS: PCP Internal Medicine; Visit Provider Orthopaedic Surgery
DX: Z96.642 Presence of left artificial hip joint (principal)
CPT/HCPCS: 99024

== ENCOUNTER → 2024-05-17 14:29 | Outpatient (BNVA) | payer MEDICARE, BC, SELFPAY | PROVIDERS: PCP Internal Medicine; Visit Provider Orthopaedic Surgery | DX: Z47.1 Aftercare following joint replacement surgery (principal); Z96.642 Presence of left artificial hip joint | CPT/HCPCS: 99212 ==

== ENCOUNTER 2024-05-21 09:31 | Outpatient (AMB) | payer MEDICARE, BC, SELFPAY ==
--- NOTE | 2024-05-21 09:45 | MHC.OFFVIS ---
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 Habitat Resource Specialist Required: No Accompanied by: Self / Same As Patient Allergies codeine [Codeine] Adverse Reaction (Mild, Verified 05/21/24 10:15) vomiting Medication List - Last Reconciled 05/21/24 by DAVID Adams acetaminophen 1,000 mg PO TID albuterol sulfate 90 mcg/actuation 2 puffs inhalation Q4H PRN amiodarone 200 mg PO DAILY apixaban (Eliquis) 5 mg PO BID atorvastatin 80 mg PO BEDTIME bisacodyl 10 mg IN DAILY PRN cholecalciferol (vitamin D3) (Vitamin D3) 25 mcg PO DAILY clopidogrel 75 mg PO DAILY cyanocobalamin (vitamin B-12) (Vitamin B-12) 1,000 mcg PO DAILY docusate sodium (Colace) 100 mg PO BID fluticasone propion-salmeterol 113-14 mcg/actuation 1 inh inhalation Q12H 30 days furosemide 40 mg See Protocol PO DAILY 90 days Lactobacillus rhamnosus GG (Culturelle) 1 cap PO BID lactulose 15 mL PO DAILY PRN levothyroxine (Synthroid) 50 mcg PO DAILY@0600 magnesium hydroxide (Milk of Magnesia) 30 mL PO DAILY PRN melatonin 10 mg PO BEDTIME metoprolol succinate ER 25 mg PO DAILY nitrofurantoin macrocrystal 100 mg PO DAILY 14 days ondansetron HCl 4 mg PO Q8H PRN pantoprazole 40 mg PO DAILY@0630 paroxetine HCl 40 mg PO BEDTIME potassium chloride ER 20 mEq PO DAILY sennosides-docusate sodium 8.6-50 mg (Senna Plus) 2 tab-caps PO BID sodium phosphates 19-7 gram/118 mL (Fleet Enema) 118 mL IN DAILY PRN terazosin 1 mg PO BEDTIME 30 days HPI Comments Details: Alden is a pleasant 68-year-old female patient of Dr. Whitfield. She has a past medical history of AFib with a history of cardioversion x2 on anticoagulation, DE, arthritis, thyroid disease, GERD, chronic kidney disease, former smoker, cardiomyopathy, cataracts, hypertension, ACD, congestive heart failure, coronary artery disease, MS, and pulmonary nodules. She presents to the office today for follow-up of her lower urinary tract symptoms and recurrent urinary tract infections. In discussion with the patient today she discusses her recent hospitalization approximately 1 month ago for acute urinary tract infection. She reports having completed antibiotic therapy as prescribed. In office urinalysis results reviewed with the patient today 3+ leukocytes negative nitrates PVR 395ml's. She reports compliance with Flomax as prescribed. She reports typically she does not experience UTI like symptoms however has baseline urinary incontinence at times. When asked she denies any issues with constipation. She denies urinary urgency, urinary frequency, hematuria, dysuria, foul smelling urine, changes to urinary stream, flank pain, fever, and or chills. Discussed at length potential causes of microscopic hematuria. She does discuss having a longstanding history of nicotine dependence however has been smoke-free since 2018. Discussed reasons for blood in the urine may include but are not limited to kidney stones, cancer in the urinary tract, kidney stone disease or inflammatory conditions of the urinary tract. I have discussed workup to include cystoscopy evaluation. She otherwise denies any other issues or concerns at this time. [facility] [place] Medical History Atrial fibrillation with rapid ventricular response Osteoarthritis of left hip Bilateral cataracts History of cardioversion Myocardial infarction Arthritis Hx of transfusion of packed red blood cells Thyroid disease GERD (gastroesophageal reflux disease) CKD (chronic kidney disease) On anticoagulant therapy History of smoking 30 or more pack years PAF (paroxysmal atrial fibrillation) Left renal artery stenosis Personal history of nicotine dependence Cardiomyopathy Essential hypertension Atherosclerotic cardiovascular disease Asymmetric blood pressures Acute on chronic systolic (congestive) heart failure CHF (congestive heart failure) CAD (coronary artery disease) Multiple sclerosis Pulmonary nodules COPD (chronic obstructive pulmonary disease) Peripheral arterial occlusive disease Surgical History History of endoscopy History of colonoscopy History of heart artery stent (~2018) Status post angioplasty with stent (~09/2018) S/P insertion of iliac artery stent (~02/2019) S/P cardiac cath (~12/2020) History of cholecystectomy (~02/2009) Family History Father No problems noted. Mother No problems noted. Brother Diabetes Social History Household Members: None Housing: House Housing Other:: Sent in from [facility] Are you a primary health care marketing specialist to a significant other at home: No Do you presently have visiting nurse or other home services: No Alcohol intake: never Comment: aware of trip hazard Patient Tobacco Use Status: Former Tobacco user Tobacco use type: Cigarette e-Cigarette/Vaping Use: Never Used Second Hand Smoke Exposure: No Advance Directives Date on File: 12/27/20 service: No Current occupational status: retired Cognitive needs: Yes (cane) Hearing needs: No Vision needs: Yes (reading glasses) Review of Systems Eyes Reports as per HPI ENT Reports no additional complaints Card Reports as per HPI Resp Reports as per HPI GI Reports as per HPI Reports as per HPI Musc Reports as per HPI Neuro Reports no additional complaints Psych Reports no additional complaints Endo Reports as per HPI Physical Exam Const General: cooperative, healthy appearing, comfortable, no acute distress, well developed, alert and awake Orientation/consciousness: patient oriented x3 Limitations: ambulation with walker HEENT Head: Yes normal to inspection, Yes normocephalic and Yes atraumatic Ears: hearing grossly normal bilaterally Eyes General: appearance normal, both eyes and all related structures Neck Neck: Yes normal visual inspection and Yes trachea midline Chest Chest palpation & inspection: normal inspection of the chest Resp Effort & Inspection: normal respiratory effort and able to speak in complete sentences Cardio Rate: regular rate GI Inspection: Yes normal to inspection General: Yes no CVA tenderness Back/Spine/Pelvis Back: no CVA tenderness Skin General skin exam: no rashes or lesions noted Neuro General: patient oriented x3 Extrem General: Yes normal to inspection Psych Appearance: grossly normal and well kempt Mental Status: mental status grossly normal Speech and movement: Normal speech and movement present and Clear speech present Affect: normal affect Attitude: cooperative Thought process: Normal thought process present Thought content: Normal thought content present Insight: Fair insight present (Psych) Judgement: Fair judgement present (Psych) Office Procedures Post Void Residual Post Residual Void Post Void Residual (PVR): 395 [id number] Void Residual by ultrasound Results AMB Urinalysis, Automated UA Leukoctes 500 Neil/uL Last Edit by Kaila Pitts on 05/21/24 10:12 UA Nitrite Negative Last Edit by Kaila Pitts on 05/21/24 10:12 UA Urobilinogen 0.2 mg/dL Last Edit by Kaila Pitts on 05/21/24 10:12 UA Protein 15 mg/dL Last Edit by Kaila Pitts on 05/21/24 10:12 UA pH 6.0 Last Edit by Kaila Pitts on 05/21/24 10:12 UA Blood 25 Mykel/uL Last Edit by Kaila Pitts on 05/21/24 10:12 UA Specific [place] 1.010 Last Edit by Kaila Pitts on 05/21/24 10:12 UA Ketone Negative Last Edit by Kaila Pitts on 05/21/24 10:12 UA Bilirubin 0 mg/dL Last Edit by Kaila Pitts on 05/21/24 10:12 UA Glucose 0 mg/dL Last Edit by Kaial Pitts on 05/21/24 10:12 Results Reviewed Results Reviewed: Laboratory Last Values Urine pH (Auto) 6.0 05/21/24 09:55 Specific [place] (Auto) 1.010 05/21/24 09:55 Urine Protein (Auto) 15 mg/dL 05/21/24 09:55 Glucose (UA)(Auto) 0 mg/dL 05/21/24 09:55 Urine Ketones (Auto) Negative 05/21/24 09:55 Urine Blood (Auto) 25 Mykel/uL 05/21/24 09:55 Urine Nitrite (Auto) Negative 05/21/24 09:55 Urine Bilirubin (Auto) 0 mg/dL 05/21/24 09:55 Urine Urobilinogen (Auto) 0.2 mg/dL 05/21/24 09:55 Leukocyte Esterase (Auto) 500 Neil/uL 05/21/24 09:55 Assessment & Plan Assessment & Plan (1) Urinary retention with incomplete bladder emptying: Code(s): R33.9 - Retention of urine, unspecified Category: Medical (2) Recurrent urinary tract infection: Code(s): N39.0 - Urinary tract infection, site not specified Category: Medical Plan In office urinalysis results reviewed with the patient today; will send for urine culture. PVR 395 mL. Stop Flomax. Start terazosin 1 mg at bedtime as discussed and prescribed. Start Macrobid as discussed and prescribed. Discussed at length potential causes and affects of incomplete bladder emptying Discussed possible near future in office cystoscopy given microscopic hematuria in the setting of previous nicotine dependence. Discussed further treatment options for incomplete bladder emptying to include CIC. Discussed UTI prevention with D mannose supplement, vitamin-C, increasing fluid intake, behavioral therapy with timed voiding, perineal hygiene and postcoital voiding, and management of constipation with stool softeners and increased fiber intake. Will obtain retroperitoneal ultrasound for further assessment evaluation. Follow-up in 1-3 months with imaging to be completed prior and PVR at next office visit; or sooner with any issues, concerns, and or questions. Orders: Orders AMB Post Void Residual by ultrasound Today R33.9 - Retention of urine, unspecified US retroperitoneal comp Today N39.0 - Urinary tract infection, site not specified, R33.9 - Retention of urine, unspecified AMB Urinalysis Automated Today Z13.9 - Encounter for screening, unspecified Urine Culture Today R33.9 - Retention of urine, unspecified Medications: New terazosin 1 mg PO BEDTIME 30 caps 2RF 30 days R39.12 - Poor urinary stream nitrofurantoin macrocrystal 100 mg PO DAILY 14 caps 0RF 14 days R32 - Unspecified urinary incontinence Patient Instructions: The patient had an opportunity to ask questions regarding the treatment plan. All questions were answered. Physical exam, labs, and imaging were discussed and reviewed in detail. As well as risks, benefits, and discussion of treatment choices. No major barriers to understanding were identified. The patient expressed understanding and agreement with the above treatment plan. The patient was made aware they should contact our office by phone for worsening of their current condition, the appearance of new symptoms, or with any questions or concerns. Compliance is encouraged with any medications and follow up testing that is ordered. It is a privilege to be allowed the opportunity to participate in? your urological care.? Again, if you have any questions or concerns If you have any questions or concerns please do not hesitate to contact me. The office is [phone]. This note is constructed using voice recognition software. While every effort has been made to ensure accuracy business performance manager errors may have been included. Yours sincerely, DAVID Adams Coding Level of Care Code Est Pt Level 4 (41275) Complex EM visit Add On G2211 Diagnoses Urinary retention with incomplete bladder emptying R33.9 Recurrent urinary tract infection N39.0 CPT Codes Post Residual Void - PVR CPT Code: 46478-Ywth Void Residual by ultrasound ([id number])
== END 2024-05-21 10:14 | disposition home or self-care (01) ==
PROVIDERS: PCP Internal Medicine; Visit Provider Nurse Practitioner Family
DX: R33.9 Retention of urine, unspecified (principal); N39.0 Urinary tract infection, site not specified; Z13.9 Encounter for screening, unspecified
CPT/HCPCS: 99214; G2211

== ENCOUNTER 2024-05-21 09:31 | Outpatient (REF) | payer MEDICARE, BC, SELFPAY | END 2024-05-21 09:32 | disposition home or self-care (01) | LOC: HO.LNP 09:31 | PROVIDERS: PCP Internal Medicine; Visit Provider Nurse Practitioner Family | DX: R33.9 Retention of urine, unspecified (principal); N39.0 Urinary tract infection, site not specified | CPT/HCPCS: 51798; 81003; 87086; 87088; 87186; 99212 ==

== ENCOUNTER 2024-05-26 | Outpatient (REF) | payer MEDICARE, BC, SELFPAY | END 2024-05-26 00:01 | disposition home or self-care (01) | LOC: CF | PROVIDERS: PCP Internal Medicine; Visit Provider Internal Medicine | DX: N39.0 Urinary tract infection, site not specified (principal); R33.9 Retention of urine, unspecified; J44.9 Chronic obstructive pulmonary disease, unspecified; R91.8 Other nonspecific abnormal finding of lung field; Z87.891 Personal history of nicotine dependence | CPT/HCPCS: 99212 ==

== ENCOUNTER 2024-05-26 14:13 | Outpatient (AMB) | payer MEDICARE, BC, SELFPAY ==
[2024-05-26 14:27] VITALS: BP 122/70; PULSE 56; O2SAT 99; BMI 22.3
--- NOTE | 2024-05-26 14:27 | MHC.OFFVIS ---
Vital Signs 05/26/24 14:27 Height 5 ft 6 in Weight 138 lb BMI 22.3 BP 122/70 Blood Pressure Location Lt brachial Position Sitting Pulse 56 Pulse Source Pulse Oximeter Pulse Oximetry (%) 99 Oxygen Delivery Method Room Air Intake Visit Reasons: COPD Intake Note: pt is here for follow up and states she is short of breath due to humidity but had hip replacement, and doing well with that. Bluing Oven Tender Required: No Allergies codeine [Codeine] Adverse Reaction (Mild, Verified 05/26/24 14:34) vomiting Medication List - Last Reconciled 05/26/24 by Alonso Mehta MD acetaminophen 1,000 mg PO TID albuterol sulfate 90 mcg/actuation 2 puffs inhalation Q4H PRN amiodarone 200 mg PO DAILY apixaban (Eliquis) 5 mg PO BID atorvastatin 80 mg PO BEDTIME bisacodyl 10 mg AL DAILY PRN cholecalciferol (vitamin D3) (Vitamin D3) 25 mcg PO DAILY ciprofloxacin HCl 250 mg PO BID 7 days clopidogrel 75 mg PO DAILY cyanocobalamin (vitamin B-12) (Vitamin B-12) 1,000 mcg PO DAILY docusate sodium (Colace) 100 mg PO BID fluticasone propion-salmeterol 113-14 mcg/actuation 1 inh inhalation Q12H 30 days furosemide 40 mg See Protocol PO DAILY 90 days Lactobacillus rhamnosus GG (Culturelle) 1 cap PO BID lactulose 15 mL PO DAILY PRN levothyroxine (Synthroid) 50 mcg PO DAILY@0600 magnesium hydroxide (Milk of Magnesia) 30 mL PO DAILY PRN melatonin 10 mg PO BEDTIME metoprolol succinate ER 25 mg PO DAILY ondansetron HCl 4 mg PO Q8H PRN pantoprazole 40 mg PO DAILY@0630 paroxetine HCl 40 mg PO BEDTIME potassium chloride ER 20 mEq PO DAILY sennosides-docusate sodium 8.6-50 mg (Senna Plus) 2 tab-caps PO BID sodium phosphates 19-7 gram/118 mL (Fleet Enema) 118 mL AL DAILY PRN terazosin 1 mg PO BEDTIME 30 days Do you need a note to return to daycare/school/sports/work: No HPI HPI COPD: Details: THIS 68 YEARS OLD FEMALE, CASE OF SLOWLY PROGRESSING MULTIPLE SCLEROSIS, WITH SPASTIC GAIT. HAS PAST HISTORY OF SMOKING AND MILD TO MODERATE DEGREE OF CHRONIC OBSTRUCTIVE PULMONARY DISORDER. SHE IS HERE FOR FOLLOW-UP AFTER 4 MONTHS. SHE HAD LEFT HIP REPLACEMENT ON 04/05/24, AND RECOVERED VERY WELL. DID NOT HAVE ANY RESPIRATORY PROBLEMS AFTER THE SURGERY. SHE CONTINUES TO USE AIRDUO 113-14 1 INHALATION B.I.D., AND HARDLY NEEDS TO USE THE RESCUE INHALER. DENIES ANY COUGH OR WHEEZING. DENIES GETTING SHORT OF BREATH ON WALKING BECAUSE HER GAIT IS VERY SLOW AND GUARDED. OVERALL PULMONARY STATUS REMAINING VERY STABLE. [facility] Medical History Atrial fibrillation with rapid ventricular response Osteoarthritis of left hip Bilateral cataracts History of cardioversion Myocardial infarction Arthritis Hx of transfusion of packed red blood cells Thyroid disease GERD (gastroesophageal reflux disease) CKD (chronic kidney disease) On anticoagulant therapy History of smoking 30 or more pack years PAF (paroxysmal atrial fibrillation) Left renal artery stenosis Personal history of nicotine dependence Cardiomyopathy Essential hypertension Atherosclerotic cardiovascular disease Asymmetric blood pressures Acute on chronic systolic (congestive) heart failure CHF (congestive heart failure) CAD (coronary artery disease) Multiple sclerosis Pulmonary nodules COPD (chronic obstructive pulmonary disease) Peripheral arterial occlusive disease Surgical History History of endoscopy History of colonoscopy History of heart artery stent (~2018) Status post angioplasty with stent (~09/2018) S/P insertion of iliac artery stent (~02/2019) S/P cardiac cath (~12/2020) History of cholecystectomy (~02/2009) Family History Father No problems noted. Mother No problems noted. Brother Diabetes Social History Household Members: None Housing: House Housing Other:: Sent in from [facility] Are you a primary farm or ranch animal caretaker to a significant other at home: No Do you presently have visiting nurse or other home services: No Alcohol intake: never Comment: aware of trip hazard Patient Tobacco Use Status: Former Tobacco user Tobacco use type: Cigarette e-Cigarette/Vaping Use: Never Used Second Hand Smoke Exposure: No Advance Directives Date on File: 12/27/20 service: No Current occupational status: retired Cognitive needs: Yes (cane) Hearing needs: No Vision needs: Yes (reading glasses) Review of Systems Const All systems reviewed & are unremarkable except as noted in HPI and below Card Reports dyspnea on exertion Resp Reports cough (mild ) and Reports dyspnea on exertion Musc Reports abnormal gait (mild instability ), Reports myalgias and Reports muscle weakness Neuro Reports abnormal gait (mild instability ) Psych Reports depression (controlled) Physical Exam Const Other: Chronically sick-looking, walks slowly with cane. General: comfortable, no acute distress, alert and awake Orientation/consciousness: patient oriented x3 HEENT Head: Yes normal to inspection General nose exam: No nasal polyps present and No nasal discharge present Face and sinus: Yes sinuses nontender Mouth: oropharynx normal Throat: Yes posterior oropharynx normal Eyes General: appearance normal, both eyes and all related structures Neck Neck: Yes normal visual inspection, Yes no lymphadenopathy, Yes trachea midline and Yes no JVD Thyroid: Thyroid normal Chest Chest palpation & inspection: normal inspection of the chest, normal palpation of entire chest wall and no tenderness Resp Effort & Inspection: prolonged expiratory phase Auscultation: clear to auscultation bilaterally, no crackles, no wheezes and diminished lung sounds (somewhat distant especially over the basilar areas .) Cardio Palpation: normal PMI Rate: regular rate Rhythm: regular rhythm Heart sounds: S2 normal heart sound present (split ), no gallops and Murmur heart sound present (faint systolic murmur at LSB.) GI Palpation (GI): Soft to palpation, nontender, No hepatosplenomegaly present and no masses Auscultation: normal bowel sounds Back/Spine/Pelvis Thoracic/Lumbar Spine: thoracic and lumbar spine normal to inspection Skin General skin exam: no rashes or lesions noted Neuro General: patient oriented x3, No gait normal (gait is spastic , and slow ) and no focal motor deficits Cranial nerves: Yes CN's II-XII intact bilaterally Extrem General: Yes normal to inspection, Yes no clubbing, cyanosis or edema, Yes no calf tenderness and No venous stasis dermatitis Psych Appearance: grossly normal Mental Status: mental status grossly normal Speech and movement: Normal speech and movement present Assessment & Plan Assessment & Plan (1) COPD (chronic obstructive pulmonary disease): Comment: , PFT has shown Moderate obstructive disorder, good response to bronchodilators) c/w ASTHMA/COPD OVERLAP SYNDROME . * Currently she is doing well and is stable . Code(s): J44.9 - Chronic obstructive pulmonary disease, unspecified Category: Medical Plan: [place] : CONTINUE AIRDUO 113-14 1 INHALATION B.I.D. ALBUTEROL HFA 2 PUFFS Q 4-6 HOURS ONLY P.R.N.. (2) History of smoking 30 or more pack years: Comment: This patient does have history of smoking for almost 40 years, She is a high risk case for lung neoplasm. Luckily has quit for the last few years Code(s): Z87.891 - Personal history of nicotine dependence Category: Social Hx Plan: COMMENDED FOR HAVING QUIT SMOKING A FEW YEARS AGO. ADVISED THAT SHE SHOULD CONTINUE TO HAVE ANNUAL LUNG SCREENING WITH LDCT (3) Pulmonary nodules: Comment: (11/06/20 CT showed 2 new ill-defined nodules in ligula, 6 & 7mm) Patient was in the Annual lung screening program. Because of her severe comorbidities she has not had a regular follow-up Last CT scan of the chest in December 2022, showed a nonspecific density in the right middle lobe, Her current CT scan, shows that the density is smaller than before, so most likely it is benign .May be due to an inflammatory condition, or rounded atelectasis. Code(s): R91.8 - Other nonspecific abnormal finding of lung field Category: Medical Plan: SHE IS TO CONTINUE HAVING ANNUAL LUNG SCREENING Coding Level of Care Code Est Pt Level 3 (20090) Diagnoses COPD (chronic obstructive pulmonary disease) J44.9 History of smoking 30 or more pack years Z87.891 Pulmonary nodules R91.8
== END 2024-05-26 14:44 | disposition home or self-care (01) ==
PROVIDERS: PCP Internal Medicine; Visit Provider Internal Medicine
DX: J44.9 Chronic obstructive pulmonary disease, unspecified (principal); Z87.891 Personal history of nicotine dependence; R91.8 Other nonspecific abnormal finding of lung field
CPT/HCPCS: 99213

== ENCOUNTER → 2024-05-27 12:48 | Outpatient (REF) | payer MEDICARE, BC, SELFPAY ==
--- NOTE | 2024-05-27 13:03 | HM_ITS ---
* Total monitoring time 3 days. * There is lot of artifact at baseline and hence difficult to interpret. * Underlying rhythm is not entirely clear due to the artifact and baseline abnormalities but after discussion with technical team, felt to be more so of sinus. * Average ventricular rate 66/Min. No significant episodes of tachycardia or bradycardia. * Rare supraventricular ventricular ectopy. * No patient markers or diary events. MTDD
[2024-05-27 13:23] LABS: MANUAL DIFF FLAG NO
[2024-05-27 14:44] LABS: Basophils Absolute Auto 0.1 X10*3/uL (0.0-0.2); Basophils Percent Auto 1.1 % (0-2); Eosinophils Absolute Auto 0.1 X10*3/uL (0.0-0.4); Eosinophils Percent Auto 1.8 % (0-4); Hematocrit 28.2 % (37.0-47.0); Hemoglobin 8.5 g/dl (12.0-16.0); Imm Gran Abs Auto 0.02 X10*3/uL (0.00-0.03); Imm Gran Pct Auto 0.4 % (0.0-0.4); Lymphocytes Percent Auto 16.8 % (20-40); Mean Corpuscular HGB Conc 30.1 g/dl (31.0-35.0); Mean Corpuscular Hemoglobin 25.9 pg (27.0-33.0); Mean Platelet Volume 9.4 fL (9.4-12.3); Monocytes Absolute Auto 0.4 X10*3/uL (0.1-1.2); Monocytes Percent Auto 6.1 % (2-11); Neutrophils Absolute Auto 4.2 x10*3/uL (2.0-8.3); Neutrophils Percent Auto 73.8 % (45-73); Platelet Count 279 X10*3/uL (160-400); Red Blood Count 3.28 X10*6/uL (4.20-5.50); Red Cell Distribution Width 19.8 % (11.0-16.0); White Blood Count 5.7 X10*3/uL (4.8-10.8)
[2024-05-27 15:59] LABS: Alanine Aminotransferase 9 U/L (0-31); Albumin Level 3.4 g/dL (3.5-5.0); Alkaline Phosphatase 90 U/L (39-117); Anion Gap 12 (12-20); Aspartate Amino Transferase 11 U/L (5-31); Bilirubin Total 0.3 mg/dL (0.0-1.0); Blood Urea Nitrogen 32 mg/dL (9-16); Calcium 9.4 mg/dL (8.4-10.2); Carbon Dioxide 26 mmol/L (22-29); Chloride 110 mmol/L (96-108); Cholesterol 149 mg/dL (<200); Estimated Glomerular Filt Rate 35; Glucose Random 89 mg/dL (60-115); HDL Cholesterol 68 mg/dL (>40); LDL Cholesterol Calculated 72 mg/dL (<100); Potassium 3.6 mmol/L (3.3-5.1); Sodium 144 mmol/L (135-145); Thyroid Stimulating Hormone 5.17 uIU/mL (0.32-4.0); Total Protein 6.7 g/dL (6.5-8.0); Triglycerides 47 mg/dL (<150)
== END ==
LOC: HO.CARD 12:48
PROVIDERS: Absent Provider Internal Medicine; PCP Internal Medicine; Visit Provider Internal Medicine
DX: I48.91 Unspecified atrial fibrillation (principal); E03.8 Other specified hypothyroidism; G35 Multiple sclerosis; I12.9 Hypertensive chronic kidney disease with stage 1 through stage 4 chronic kidney disease, or unspecified chronic kidney disease; N18.9 Chronic kidney disease, unspecified; R32 Unspecified urinary incontinence; R63.4 Abnormal weight loss; Z96.649 Presence of unspecified artificial hip joint
CPT/HCPCS: 36415; 80053; 80061; 84443; 85025; 93242

== ENCOUNTER → 2024-05-27 13:03 | Outpatient (BNV) | payer MEDICARE, BC, SELFPAY | PROVIDERS: Absent Provider Internal Medicine; PCP Internal Medicine; Visit Provider Internal Medicine | DX: I47.10 Supraventricular tachycardia, unspecified (principal) | CPT/HCPCS: 93244 ==

== ENCOUNTER 2024-05-28 12:19 | Outpatient (REF) | payer MEDICARE, BC, SELFPAY ==
--- NOTE | ~2024-05-28 | US_ITS ---
EXAMINATION: US RETROPERITONEAL COMPLETE (RENAL) CLINICAL INFORMATION: Urinary tract infection, site not specified. COMPARISON: CT abdomen and pelvis April 21, 2024. Ultrasound renal bilateral May 30, 2023 and in January 14, 2023. TECHNIQUE: Real-time imaging of the kidneys and bladder. FINDINGS: RIGHT KIDNEY: 9.8 x 6.1 x 4.5 cm (SAG x AP x TRV). The kidney is normal in size, contour, and echogenicity. Renal cortical thickness is normal. No calculi or focal parenchymal lesions. No hydronephrosis. LEFT KIDNEY: 8.4 x 4.2 x 3.6 cm (SAG x AP x TRV). The kidney is normal in size, contour, and echogenicity. Renal cortical thickness is normal. No calculi or focal parenchymal lesions. No hydronephrosis. BLADDER: Well distended and normal. Bilateral ureteral jets are demonstrated. Prevoid bladder volume is 458.7 mL. Postvoid bladder volume is 423.7 mL. US/US retroperitoneal comp IMPRESSION: -No renal calculi or hydronephrosis of either kidney. -Large postvoid bladder residual of 424 mL. Please note: Imaging of the left kidney is marked incorrectly as the right kidney on images 25 through 34. Electronically signed by: Junior Carrizales MD 06/26/2024 09:06 AM EDT
== END 2024-05-28 12:20 | disposition home or self-care (01) ==
LOC: HO.US 12:19
PROVIDERS: PCP Internal Medicine; Visit Provider Nurse Practitioner Family
DX: Z13.89 Encounter for screening for other disorder (principal)
CPT/HCPCS: 76770

== ENCOUNTER 2024-05-28 12:59 | Outpatient (RCR) | payer MEDICARE, BC, SELFPAY ==
--- NOTE | 2024-08-27 10:11 | MHC.PT.DC ---
[facility] Office [place] Office [place] Office [address] Won Guaman [address] [phone] F: [phone] F: [phone] F: [phone] F: [phone] Physical Therapy Discharge Report Diagnosis: S/P L THR Date of Surgery: 03/30/24 Date of Evaluation: 05/28/24 Date of Discharge: 08/27/24 Treatments to Date: Cancellations to Date: No Shows to Date: Discharge Status: Patient Elected to Stop Recommend MD Follow-up Discharge Summary: Pt CAME IN FOR INIT EVAL FOR L THR BY NE ON 03/30/24. REPORTS L HIP FEELING FINE (SOME L HS ISSUES THAT ARE CHRONIC), BUT C/O SIGNIF L FOOT PAIN (DROPPED A BOTTLE OF SHAMPOO ON FOOT 2 DAYS AGO) HAS LG BLOOD BLISTER WITH REDNESS AROUND IT WITH SIGNIF PAIN 10/10 AND TTP. Pt REPORTS SHE IS ALREADY ON AN ANTIBIOTIC FOR BLADDER ISSUE. RECOMMENDED SHE HAS IT CHECKED (HER PCP IS NOT IN ON FRIDAYS). SHE DOES NOT WANT TO GO TO ER. SHE IS TO GO TO WALKIN CLINIC IN [place]. Pt IN WC WITH [facility], ABLE TO WALK SHORT DISTANCE FROM WC>CAR (ROUSTABOUT HAND) WITH CG WITH [facility] (PUTTING SOME WT ON L LEG). ED TO USE WW/ROLLATOR AT HOME NO FURTHER APPTS SCHEDULED (?) Electronically signed by: CLIFTON PERKINS PT Please sign and return to therapist. Thank you for your referral.
== END 2024-08-27 10:11 | disposition home or self-care (01) ==
LOC: HO.PT 12:59
PROVIDERS: PCP Internal Medicine; Visit Provider Orthopaedic Surgery
DX: Z96.642 Presence of left artificial hip joint (principal)

== ENCOUNTER 2024-05-28 15:59 | Emergency (ER) | payer MEDICARE, BC, SELFPAY ==
--- NOTE | ~2024-05-28 | XR_ITS ---
EXAMINATION: XR FOOT, LEFT CLINICAL INFORMATION: Injury. Pain. COMPARISON: None available. TECHNIQUE: Three views of the left foot. FINDINGS: No fracture. No dislocation. No focal bone lesion or abnormal periosteal reaction. Focal soft tissue swelling in the dorsum of the forefoot over the fourth metatarsal. No radiopaque foreign body. No air in the soft tissue. XR/XR foot LT min 3V IMPRESSION: 1. No acute osseous abnormality. 2. Focal soft tissue swelling in the dorsum of the forefoot over the fourth metatarsal.
[2024-05-28 16:04] VITALS: BP 148/65; PULSE 58; RESP 16; TEMP 36.4; O2SAT 100; BMI 22.3
--- NOTE | 2024-05-28 16:04 | ED_ITS ---
HPI - Extremity Injury (Lower) General Chief Complaint: Extremity Injury, Lower Stated Complaint: Foot injury Time Seen by Provider: 05/28/24 16:10 Source: patient Mode of arrival: wheelchair Limitations: no limitations History of Present Illness HPI Narrative: Patient is a 68-year-old female who presents to the emergency department for evaluation traumatic left foot pain after dropping a shampoo bottle on it 5 days ago. Increasing pain particularly with ambulation/weight-bearing. Pain mostly localized to the lateral aspect and reports presence of a blood blister. States she takes Eliquis Related Data Home Medications ?Medication ?Instructions ?Recorded ?Confirmed paroxetine HCl 40 mg tablet 40 mg PO BEDTIME 10/03/20 04/25/24 cholecalciferol (vitamin D3) 25 25 mcg PO DAILY 12/20/20 04/25/24 mcg (1,000 unit) tablet (Vitamin D3) cyanocobalamin (vitamin B-12) 1,000 mcg PO DAILY 12/20/20 04/25/24 1,000 mcg tablet (Vitamin B-12) melatonin 10 mg tablet 10 mg PO BEDTIME Insomnia 01/13/23 04/25/24 levothyroxine 50 mcg tablet 50 mcg PO DAILY@0600 09/02/23 04/25/24 (Synthroid) metoprolol succinate 25 mg 25 mg PO DAILY 12/25/23 04/25/24 tablet,extended release 24 hr pantoprazole 40 mg tablet,delayed 40 mg PO DAILY@0630 03/15/24 04/25/24 release albuterol sulfate 90 mcg/actuation 2 puff inhalation Q4H PRN wheezing 03/30/24 04/25/24 aerosol inhaler acetaminophen 500 mg tablet 1,000 mg PO TID 04/21/24 04/25/24 amiodarone 200 mg tablet 200 mg PO DAILY 04/21/24 04/25/24 bisacodyl 10 mg rectal suppository 10 mg ME DAILY PRN Constipation 04/21/24 04/25/24 docusate sodium 100 mg capsule 100 mg PO BID 04/21/24 04/25/24 (Colace) sennosides 8.6 mg-docusate sodium 2 tab-cap PO BID 04/21/24 04/25/24 50 mg capsule (Senna Plus) sodium phosphates 19 gram-7 118 ml ME DAILY PRN Constipation 04/21/24 04/25/24 gram/118 mL enema (Fleet Enema) Lactobacillus rhamnosus GG 10 1 cap PO BID 04/25/24 04/25/24 billion cell capsule (Culturelle) magnesium hydroxide 400 mg/5 mL 30 ml PO DAILY PRN Constipation 04/25/24 04/25/24 oral suspension (Milk of Magnesia) Previous Rx's ?Medication ?Instructions ?Recorded atorvastatin 80 mg tablet 80 mg PO BEDTIME #90 tabs 07/28/23 clopidogrel 75 mg tablet 75 mg PO DAILY #90 tabs 09/02/23 apixaban 5 mg tablet (Eliquis) 5 mg PO BID #180 tabs 02/05/24 fluticasone 113 mcg-salmeterol 14 1 inh inhalation Q12H copd 30 days 02/12/24 mcg/actuation breath activated #1 ea powdr furosemide 20 mg tablet 40 mg PO DAILY 90 days #180 tabs 03/16/24 potassium chloride 20 mEq 20 meq PO DAILY #90 tabs 03/29/24 tablet,extended release lactulose 10 gram/15 mL oral 15 ml PO DAILY PRN constipation 04/29/24 solution #3,000 mL ondansetron HCl 4 mg tablet 4 mg PO Q8H PRN nausea and 04/29/24 vomiting #30 tabs terazosin 1 mg capsule 1 mg PO BEDTIME 30 days #30 caps 05/21/24 ciprofloxacin HCl 250 mg tablet 250 mg PO BID 7 days #14 tabs 05/24/24 Allergies Allergy/AdvReac Type Severity Reaction Status Date / Time codeine [Codeine] AdvReac Mild vomiting Verified 05/28/24 16:12 Review of Systems 2 Review of Systems: Yes all other systems are reviewed and are negative [facility] Past Medical History Attestation statement: The following information was validated with the patient. Source: old records reviewed Medical History Atrial fibrillation with rapid ventricular response Osteoarthritis of left hip Bilateral cataracts History of cardioversion Myocardial infarction Arthritis Hx of transfusion of packed red blood cells Thyroid disease GERD (gastroesophageal reflux disease) CKD (chronic kidney disease) On anticoagulant therapy History of smoking 30 or more pack years PAF (paroxysmal atrial fibrillation) Left renal artery stenosis Personal history of nicotine dependence Cardiomyopathy Essential hypertension Atherosclerotic cardiovascular disease Asymmetric blood pressures Acute on chronic systolic (congestive) heart failure CHF (congestive heart failure) CAD (coronary artery disease) Multiple sclerosis Pulmonary nodules COPD (chronic obstructive pulmonary disease) Peripheral arterial occlusive disease Surgical History History of endoscopy History of colonoscopy History of heart artery stent (~2018) Status post angioplasty with stent (~09/2018) S/P insertion of iliac artery stent (~02/2019) S/P cardiac cath (~12/2020) History of cholecystectomy (~02/2009) Family History Family History Father No problems noted. Mother No problems noted. Brother Diabetes Social History Social History Household Members: None Housing: House Housing Other:: Sent in from [facility] [place] Are you a primary lawn care worker to a significant other at home: No Do you presently have visiting nurse or other home services: No Alcohol intake: never Comment: aware of trip hazard Patient Tobacco Use Status: Former Tobacco user Tobacco use type: Cigarette e-Cigarette/Vaping Use: Never Used Second Hand Smoke Exposure: No Advance Directives: Yes Advance Directives on File: Yes Advance Directives Date on File: 12/27/20 service: No Current occupational status: retired Cognitive needs: Yes (cane) Hearing needs: No Vision needs: Yes (reading glasses) Physical Exam 2 Vital Signs: Vital Signs: Last Vital Signs Temp 97.6 F 05/28/24 16:04 Pulse 58 05/28/24 16:04 Resp 16 05/28/24 16:04 BP 148/65 H 05/28/24 16:04 Pulse Ox 100 05/28/24 16:04 O2 Del Method Room Air 05/28/24 16:04 BMI result Body Mass Index 22.3 Appearance: Alert.?Oriented to person, place and time. No acute distress.?Normal affect. CVS: Heart sounds normal. Normal heart rate and rhythm.? Pulses normal.?? Respiratory: No respiratory distress.? Lung sounds clear to auscultation bilaterally?? Skin: Skin warm and dry.? Normal skin color.? Extremities: Localized edema to left lateral foot.? No calf ttp?2+ DP/PT pulse Neuro: Moves all extremities spontaneously. Sensation intact bilaterally. . Ambulates with antalgic gait. Medical Decision Making Medical Decision Making MDM Narrative: Patient is a 68-year-old female with past medical history of atrial fibrillation on Eliquis, myocardial infarction, ASCVD, cardiomyopathy, CHF, hypertension, multiple sclerosis, COPD,, GERD, CKD, left renal artery stenosis, hypothyroidism who presents to the emergency department for evaluation of traumatic left foot pain localized to the lateral aspect as per HPI with hemorrhagic blister has per physical exam portion of this note. XR is without evidence of acute fracture dislocation. Ecchymosis and swelling consistent with sprain contusion of the foot, discussed conservative treatment. Skin surrounding the base of the blister was cleaned with chlorhexidine, needle aspiration of 15 mL serosanguineous fluid, patient tolerated procedure well. Differential Diagnosis Differential Diagnoses: The differential diagnosis associated with the presentation includes (Fracture, dislocation, sprain, hemorrhagic blister) Independent Interpretation I performed an independent interpretation of an: Plain X-Ray (No acute fracture) Radiology Impression Discussion of test interpretation with radiology: I have reviewed the radiologist's reading. Radiologist Impression: XR/XR foot LT min 3V IMPRESSION: 1. No acute osseous abnormality. 2. Focal soft tissue swelling in the dorsum of the forefoot over the fourth metatarsal. External Record Review External record reviewed: Outpatient record Discharge Plan Discharge Clinical Impression: Foot sprain Qualifiers: Encounter type: initial encounter Laterality: left Qualified Code(s): S93.602A - Unspecified sprain of left foot, initial encounter Blister of foot Qualifiers: Encounter type: initial encounter Laterality: left Qualified Code(s): S90.822A - Blister (nonthermal), left foot, initial encounter Patient Disposition: Home, Self-Care Instructions: Blister (ED) Prescriptions: No Action atorvastatin 80 mg tablet 80 mg PO BEDTIME Qty: 90 1RF clopidogrel 75 mg tablet 75 mg PO DAILY Qty: 90 3RF Eliquis 5 mg tablet 5 mg PO BID Qty: 180 3RF fluticasone propion-salmeterol 113-14 mcg/actuation aerosol powdr breath activated 1 inh inhalation Q12H 30 Days Qty: 1 1RF furosemide 20 mg tablet 40 mg PO DAILY 90 Days Qty: 180 0RF Protocol: Hold for SBP< HOLD for SBP < : 90 potassium chloride 20 mEq tablet extended release 20 meq PO DAILY Qty: 90 1RF ciprofloxacin HCl 250 mg tablet 250 mg PO BID 7 Days Qty: 14 0RF cyanocobalamin (vitamin B-12) [Vitamin B-12] 1,000 mcg Tablet 1,000 mcg PO DAILY cholecalciferol (vitamin D3) [Vitamin D3] 25 mcg (1,000 unit) Tablet 25 mcg PO DAILY melatonin 10 mg Tablet 10 mg PO BEDTIME amiodarone 200 mg tablet 200 mg PO DAILY acetaminophen 500 mg Tablet 1,000 mg PO TID bisacodyl 10 mg Suppository 10 mg ME DAILY PRN (Reason: Constipation) Fleet Enema 19-7 gram/118 mL Enema 118 ml ME DAILY PRN (Reason: Constipation) docusate sodium [Colace] 100 mg Capsule 100 mg PO BID Senna Plus 8.6-50 mg Capsule 2 tab-cap PO BID pantoprazole 40 mg tablet,delayed release (DR/EC) 40 mg PO DAILY@0630 albuterol sulfate 90 mcg/actuation HFA aerosol inhaler 2 puff inhalation Q4H PRN (Reason: wheezing) magnesium hydroxide [Milk of Magnesia] 400 mg/5 mL Suspension 30 ml PO DAILY PRN (Reason: Constipation) Culturelle 10 billion cell Capsule 1 cap PO BID Rx Instructions: END DATE: 05/05/24 lactulose 10 gram/15 mL Solution 15 ml PO DAILY PRN (Reason: constipation) Qty: 3000 0RF ondansetron HCl 4 mg tablet 4 mg PO Q8H PRN (Reason: nausea and vomiting) Qty: 30 0RF paroxetine HCl 40 mg tablet 40 mg PO BEDTIME metoprolol succinate 25 mg tablet extended release 24 hr 25 mg PO DAILY levothyroxine [Synthroid] 50 mcg tablet 50 mcg PO DAILY@0600 terazosin 1 mg capsule 1 mg PO BEDTIME 30 Days Qty: 30 2RF Referrals: Amina Whitfield MD [Primary Care Provider] - Print Language: Lao
[2024-05-28 18:31] VITALS: BP 148/65; PULSE 58; RESP 16; TEMP 36.4; O2SAT 100
== END 2024-05-28 18:31 | disposition home or self-care (01) ==
PROVIDERS: Emergency Provider Emergency Medicine; PCP Internal Medicine
DX: S90.822A Blister (nonthermal), left foot, initial encounter (principal); S93.602A Unspecified sprain of left foot, initial encounter; W20.8XXA Other cause of strike by thrown, projected or falling object, initial encounter; I48.0 Paroxysmal atrial fibrillation; G35 Multiple sclerosis; Z79.01 Long term (current) use of anticoagulants; Z79.899 Other long term (current) drug therapy; Z79.02 Long term (current) use of antithrombotics/antiplatelets; Y93.E1 Activity, personal bathing and showering; Y92.012 Bathroom of single-family (private) house as the place of occurrence of the external cause; Y99.9 Unspecified external cause status
CPT/HCPCS: 10160; 73630; 76770; 99282; 99284

== ENCOUNTER 2024-07-01 14:19 | Outpatient (AMB) | payer MEDICARE, BC, SELFPAY ==
[2024-07-01 14:22] VITALS: BP 160/80; PULSE 52; BMI 22.5
--- NOTE | 2024-07-01 14:22 | A.OFFVIS_ITS ---
Vital Signs 07/01/24 14:22 Height 5 ft 6 in Weight 139 lb 5.314 oz BMI 22.5 BP 160/80 H Blood Pressure Location Rt brachial Position Sitting Pulse 52 Pulse Source Monitor Intake Visit Reasons: 4 mth fu Traffic Checker Required: No Cinder Worker: Cinder Worker Present Allergies codeine [Codeine] Adverse Reaction (Mild, Verified 07/01/24 14:26) vomiting Medication List - Last Reconciled 07/01/24 by MODESTA Tyler acetaminophen 1,000 mg PO TID albuterol sulfate 90 mcg/actuation 2 puffs inhalation Q4H PRN amiodarone 200 mg PO DAILY apixaban (Eliquis) 5 mg PO BID atorvastatin 80 mg PO BEDTIME cholecalciferol (vitamin D3) (Vitamin D3) 25 mcg PO DAILY clopidogrel 75 mg PO DAILY cyanocobalamin (vitamin B-12) (Vitamin B-12) 1,000 mcg PO DAILY docusate sodium (Colace) 100 mg PO BID fluticasone propion-salmeterol 113-14 mcg/actuation 1 inh inhalation Q12H 30 days furosemide 40 mg See Protocol PO DAILY 90 days levothyroxine (Synthroid) 50 mcg PO DAILY@0600 melatonin 10 mg PO BEDTIME metoprolol succinate ER 25 mg PO DAILY pantoprazole 40 mg PO DAILY@0630 paroxetine HCl 40 mg PO BEDTIME HPI HPI 4 mth fu: Details: Nai is a 68-year-old female past medical history of hypertension, hyperlipidemia, COPD, PAD, CAD with left circumflex and RCA stents, NSTEMI in setting of hypertensive crisis, heart failure with preserved EF, paroxysmal atrial fibrillation who recently had a left total hip replacement followed by hospital admission for acute pyelonephritis. During her last admission she did have findings of atrial fibrillation that was treated with heart rate control. She was continued on amiodarone at that time. Today she presents for follow-up. Today she reports that she has been feeling well since her last hospital discharge. She has not had heart palpitations that feel like AFib. She tells me her breathing is comfortable. No orthopnea, PND, edema. No chest discomfort at rest or with activity. No lightheadedness, presyncope, syncope, falls. Last month she dropped a bottle of shampoo on her foot causing a large blood blister that was drained in the emergency room. She still has a scab at the site which she covers with a dry dressing. She ambulates slowly with a cane. Family member present. [facility] Medical History Atrial fibrillation with rapid ventricular response Osteoarthritis of left hip Bilateral cataracts History of cardioversion Myocardial infarction Arthritis Hx of transfusion of packed red blood cells Thyroid disease GERD (gastroesophageal reflux disease) CKD (chronic kidney disease) On anticoagulant therapy History of smoking 30 or more pack years PAF (paroxysmal atrial fibrillation) Left renal artery stenosis Personal history of nicotine dependence Cardiomyopathy Essential hypertension Atherosclerotic cardiovascular disease Asymmetric blood pressures Acute on chronic systolic (congestive) heart failure CHF (congestive heart failure) CAD (coronary artery disease) Multiple sclerosis Pulmonary nodules COPD (chronic obstructive pulmonary disease) Peripheral arterial occlusive disease Surgical History History of endoscopy History of colonoscopy History of heart artery stent (~2018) Status post angioplasty with stent (~09/2018) S/P insertion of iliac artery stent (~02/2019) S/P cardiac cath (~12/2020) History of cholecystectomy (~02/2009) Family History Father No problems noted. Mother No problems noted. Brother Diabetes Social History Household Members: None Housing: House Housing Other:: Sent in from [facility] Are you a primary youth career specialist to a significant other at home: No Do you presently have visiting nurse or other home services: No Alcohol intake: never Comment: aware of trip hazard Patient Tobacco Use Status: Former Tobacco user Tobacco use type: Cigarette e-Cigarette/Vaping Use: Never Used Second Hand Smoke Exposure: No Advance Directives Date on File: 12/27/20 service: No Current occupational status: retired Cognitive needs: Yes (cane) Hearing needs: No Vision needs: Yes (reading glasses) Review of Systems Const All systems reviewed & are unremarkable except as noted in HPI and below ENT Denies dizziness Card Denies chest pain, Denies chest pain at rest, Denies chest pain with activity, Denies rapid heart rate, Denies pedal edema, Denies edema, Denies leg edema, Denies lightheadedness, Denies palpitations, Denies dyspnea, Denies dyspnea on exertion and Denies orthopnea Resp Denies cough, Denies dyspnea and Denies dyspnea on exertion GI Denies hematochezia and Denies change in stool character Musc Details: uses cane - ambulates slowly Reports abnormal gait, Denies limited range of motion, Denies muscle cramps, Reports muscle weakness, Denies numbness, Denies radiating pain into limb, Denies stiffness and Denies tingling Neuro Reports abnormal gait, Denies dizziness, Denies numbness and Denies tingling Endo Denies palpitations Physical Exam Vital Signs: Last Vital Signs Pulse 52 07/01/24 14:22 BMI result Body Mass Index 22.5 Const General: cooperative, healthy appearing, comfortable and no acute distress Orientation/consciousness: patient oriented x3 Neck Neck: Yes normal visual inspection and Yes no JVD Resp Effort & Inspection: normal respiratory effort Auscultation: clear to auscultation bilaterally, no rales, no rhonchi and no wheezes Cardio Jugular venous distension: no JVD Rate: regular rate Rhythm: regular rhythm Heart sounds: S1 normal heart sound present, S2 normal heart sound present, no murmurs and no rubs Neuro General: patient oriented x3 Extrem Other: dressing on left foot from recent small injury General: Yes normal to inspection Psych Appearance: grossly normal Mental Status: mental status grossly normal Speech and movement: Normal speech and movement present Office Procedures EKG Details: Today, read by me, sinus bradycardia, first-degree AV block, nonspecific intraventricular conduction delay, can not exclude anterior infarct, T-wave abnormality inferior lateral leads, JT index 111.5 [id number], Complete Assessment & Plan Assessment & Plan (1) Atrial fibrillation: Code(s): I48.91 - Unspecified atrial fibrillation Category: Medical Plan: History of paroxysmal atrial fibrillation. Noted to have AFib RVR at 05/2023 hospital admission which was treated with rate control. She was then started on amiodarone to help with rhythm control. An echocardiogram done 05/28/2023 showed EF 20-25%, left atrium severely dilated, basal inferior and inferior septum akinetic. A nuclear stress test had been done 02/07/2023 showing normal myocardial perfusion imaging. She continued to have atrial fibrillation and was experiencing much shortness of breath with activity. The reduction in EF was thought to be tachycardia mediated. She underwent cardioversion with Dr. Lizama on 08/01/2023 with successful conversion to sinus rhythm. She was continued on amiodarone for rhythm control, metoprolol for rate control and Eliquis for anticoagulation. More recently during her last hospitalization she did have recurrent atrial fibrillation which was managed medically at that time. She was continued on her current medications. An echocardiogram was done 04/26/2024 showing EF 40-45%, evidence of regional wall motion abnormalities, left atrium severely dilated and moderate mitral valve regurgitation, overall no change from last echo. A Holter monitor was done 05/27/2024 for 3 days showing what looked like sinus rhythm with average heart rate 66, rare SVE. Her EKG today is showing sinus bradycardia with first-degree AV block, rate 52, JT index 111.5. - she denies having issues with heart palpitations since her hospital discharge. She reports currently feeling well. At this time will continue on amiodarone and metoprolol. Will check labs for amiodarone monitoring, CMP and TSH. She does have documented anemia on recent labs. Will recheck CBC to assess for trending. Continue Eliquis for anticoagulation as no bleeding issues are reported. (2) CHF (congestive heart failure): Comment: She was treated for congestive heart failure/bilateral pleural effusions, in June of this year. She stays on diuretic therapy is doing fairly well at this time. Code(s): I50.9 - Heart failure, unspecified Category: Medical Plan: History of heart failure with preserved EF. Prior decompensated heart failure in the setting of AFib RVR. No recent issues with decompensated heart failure. She did undergo a left hip replacement which she tolerated well. She was admitted to the hospital a few weeks later with pyelonephritis. She has been continued on her usual diuretic. She does not appear fluid overloaded on examination today. Signs and symptoms of heart failure reviewed with her. Low- salt diet reviewed. (3) Cardiomyopathy: Comment: She has cardio myopathy, secondary to coronary artery disease. Has low ejection fraction. Also has had atrial fibrillation which is now controlled after cardioversion. Actively followed. Up by Cardiology Code(s): I42.9 - Cardiomyopathy, unspecified Category: Medical Qualifiers: Cardiomyopathy type: other Qualified Code(s): I42.8 - Other cardiomyopathies Plan: As above. EF reduced to 20-25%. Repeat echo after prior cardioversion now showing EF 45-50%. Recent echo done showing EF 40-45%. The drop in EF may be related to her atrial fibrillation as she did have recurrent AFib during last admit. Continue metoprolol XL for neurohormonal modulation. She did have SUSAN in September 2023 with creatinine as high as 3.19. Most recent creatinine 1.47 on 05/27/2024 She is not on Andrew or Arb at this time. (4) Essential hypertension: Code(s): I10 - Essential (primary) hypertension Category: Medical Plan: Blood pressure elevated today. Patient states that she has been taking her meds as directed. Tries to avoid salt in her diet. Continue current antihypertensives. She tells me she has an upcoming PCP visit and blood pressure will be rechecked at that time. (5) S/P cardiac cath: Onset Date: ~12/2020 Comment: (12/27/20 - Dr. Garcia, [facility]: Lm normal, mid LAD, proximal 60%, 2nd diag prox 75%, LCx prox stent patent, Lcx mid 65%, 1st OM 40%, RCA prox stent patent, mid RCA prox 70% - inferior/ inferolateral WMA on echo not explained by anatomy) Code(s): Z98.890 - Other specified postprocedural states Category: Surgical Plan: As above (6) S/P cardiac catheterization: Comment: Last cardiac catheterization 04/02/2023 showing mid LAD 30% stenosis, proximal circumflex stent patent, mid circumflex 80% stenosis and stent placed, RCA proximal stent patent, mid RCA 50% stenosis Code(s): Z98.890 - Other specified postprocedural states Category: Surgical Plan: Last coronary stent placed 04/02/2023, PETRA to the mid circumflex. She also has residual mid LAD stenosis, RCA stent and mid RCA stenosis. Per Dr. Lizama last note she should continue on Plavix due to the extent of her vascular disease. (7) CAD (coronary artery disease): Comment: (Hx 2 MIs 2018 & 2020 - Hx LCx & RCA stents 2019 - patent on recent 12/2020 cath) Code(s): I25.10 - Atherosclerotic heart disease of [place] coronary artery without angina pectoris Category: Medical Plan: No reports of anginal sounding symptoms. Continue Plavix, atorvastatin, metoprolol XL. Labs done 12/31/2023 showed LDL 67. [place]accoon LDL goal is less than 70. (8) Murmur: Code(s): R01.1 - Cardiac murmur, unspecified Category: Medical Plan: Heart murmur noted on examination. This is not new finding. Echocardiogram 05/28/2023 shows [id number] mitral regurgitation, normal aortic valve, mild TR. Plan Time spent with chart review, documentation, interview, assessment Orders: Orders TSH reflex Free T4 Today I48.91 - Unspecified atrial fibrillation Comprehensive Met. Panel Today I48.91 - Unspecified atrial fibrillation Complete Blood Count Auto Diff Today I48.91 - Unspecified atrial fibrillation Coding Level of Care Code Est Pt Level 4 (31036) Diagnoses Atrial fibrillation I48.91 CHF (congestive heart failure) I50.9 Other cardiomyopathy I42.8 Cardiomyopathy type: other Essential hypertension I10 S/P cardiac cath Z98.890 CAD (coronary artery disease) I25.10 Murmur R01.1 CPT Codes EKG - CPT: 00838-[id number], Complete ([id number]) Time Spent (min) 36
== END 2024-07-01 15:04 | disposition home or self-care (01) ==
PROVIDERS: PCP Internal Medicine; Visit Provider Nurse Practitioner Family
DX: I48.91 Unspecified atrial fibrillation (principal); I50.9 Heart failure, unspecified; I42.8 Other cardiomyopathies; I10 Essential (primary) hypertension; Z98.890 Other specified postprocedural states; I25.10 Atherosclerotic heart disease of native coronary artery without angina pectoris; R01.1 Cardiac murmur, unspecified
CPT/HCPCS: 93010; 99214

== ENCOUNTER → 2024-07-01 14:19 | Outpatient (BNVA) | payer MEDICARE, BC, SELFPAY | PROVIDERS: PCP Internal Medicine; Visit Provider Nurse Practitioner Family | DX: I44.0 Atrioventricular block, first degree (principal); I45.4 Nonspecific intraventricular block; I48.91 Unspecified atrial fibrillation; I11.0 Hypertensive heart disease with heart failure; I50.30 Unspecified diastolic (congestive) heart failure; I42.9 Cardiomyopathy, unspecified; I25.10 Atherosclerotic heart disease of native coronary artery without angina pectoris; R01.1 Cardiac murmur, unspecified; Z98.890 Other specified postprocedural states | CPT/HCPCS: 93005; 99212 ==

== ENCOUNTER 2024-07-22 13:27 | Inpatient (IN) | payer MEDICARE, BC, SELFPAY ==
--- NOTE | 2024-07-22 | ECG_ITS ---
Test Reason : ARRYTHMIA/PALPITATIONS Blood Pressure : / mmHG Vent. Rate : 087 BPM Atrial Rate : 000 BPM P-R Int : 000 ms QRS Dur : 126 ms QT Int : 460 ms P-R-T Axes : 000 -08 154 degrees QTc Int : 553 ms Atrial fibrillation Non-specific intra-ventricular conduction block Minimal voltage criteria for LVH, may be normal variant ( [place] product ) T wave abnormality, consider inferolateral ischemia Abnormal ECG When compared with ECG of 22-JUL-2024 13:43, T wave inversion now evident in Anterior leads Heart rate has decreased Referred By: Sole Gonzalez Electronically Signed By:MORALES HOLT
--- NOTE | ~2024-07-22 | CT_ITS ---
EXAMINATION: CT ABDOMEN AND PELVIS WITHOUT CONTRAST CLINICAL INFORMATION: Bilateral flank pain with SUSAN COMPARISON: Renal ultrasound 05/28/2024, CT abdomen and pelvis 04/21/2024 TECHNIQUE: Multidetector volumetric imaging was performed from the superior aspect of the liver through the pubic symphysis. Sagittal and coronal reformatted images were obtained on the technologist's workstation. This CT examination was performed using dose optimization techniques as appropriate, variously including the following: *Automated exposure control *Adjustment of mA and/or kV according to patient size (this includes techniques or standardized protocols for targeted exams where dose is matched to indication/reason for exam; i.e. extremities or head) *Use of iterative reconstruction technique DLP: 406 mGy-cm FINDINGS: LUNG BASES: A 6 mm right middle lobe nodule is unchanged compared to the prior CT (4:28 compare prior 15:4). LIVER, GALLBLADDER, AND BILIARY TREE: The liver is normal in size, shape, and attenuation. No focal hepatic lesion or biliary ductal dilatation is present. Patient status post cholecystectomy. PANCREAS: Unremarkable. SPLEEN: Unremarkable. ADRENAL GLANDS: Unremarkable. KIDNEYS AND URETERS: A prominent bilateral extrarenal pelves. At the time of the prior study, there was marked left-sided hydronephrosis that has resolved. There is some minimal fullness in the left collecting system but no significant hydronephrosis is present at this time. No renal masses or renal calculi. There is some mild stranding around the left kidney and proximal ureter. BLADDER: Poorly filled with a symmetrically thickened wall. Previously the bladder was quite distended with an air-fluid level. GASTROINTESTINAL TRACT: The small and large bowel are unremarkable. The appendix is unremarkable. ABDOMINAL WALL: No significant hernia is appreciated. Injection granulomas are present in the buttocks. LYMPH NODES: No retroperitoneal lymphadenopathy. VASCULAR: Calcific atherosclerotic changes are present in the aorta and iliofemoral vessels. There is no evidence of an abdominal aortic aneurysm. PELVIC VISCERA: The uterus is not seen. An abnormal adnexal mass is not detected. No free intraperitoneal fluid is present. OSSEOUS STRUCTURES: Left hip prosthesis is present. CT/CT abdomen pelvis wo IV con IMPRESSION: 1. A cause for the patient's bilateral flank pain and SUSAN has not been found. Previously seen left-sided hydronephrosis has resolved. 2. Incidental note made of a stable 6 mm right middle lobe nodule, cholecystectomy, hysterectomy and left hip prosthesis. 3. There is some mild stranding around the left kidney and proximal ureter. Please correlate with urinalysis. 4. Other incidental findings as described above. Fleischner guidelines were followed. Electronically signed by: Chuy Ochoa MD 07/22/2024 05:49 PM EDT RP
--- NOTE | ~2024-07-22 | US_ITS ---
EXAMINATION: US RETROPERITONEAL LIMITED, RIGHT (RENAL ONLY) CLINICAL INFORMATION: Right flank pain. COMPARISON: None available. TECHNIQUE: Ultrasound imaging of the right kidney is performed. FINDINGS: RIGHT KIDNEY: 10.6 x 3.9 x 5.2 cm (SAG x AP x TRV). The kidney is normal in size, contour, and echogenicity. Renal cortical thickness is normal. No calculi or focal parenchymal lesions. No hydronephrosis. US/US renal RT IMPRESSION: Normal right kidney exam. . Electronically signed by: Santos Webber MD 07/23/2024 07:41 PM EDT
--- NOTE | ~2024-07-22 | XR_ITS ---
EXAMINATION: XR CHEST CLINICAL INFORMATION: Shortness of breath. COMPARISON: Chest radiograph dated April 25, 2024. TECHNIQUE: Frontal view of the chest was obtained. FINDINGS: The heart is normal in size. There is calcific atherosclerotic disease of the aorta. The lungs are clear. No pleural effusion. No pneumothorax. No acute osseous abnormality. XR/XR chest 1V IMPRESSION: No acute cardiopulmonary disease. Electronically signed by: Bryon Ford DO 07/22/2024 03:23 PM EDT
[2024-07-22 13:38] VITALS: BP 112/67; BP 121/75; PULSE 126; PULSE 130; RESP 14; TEMP 37.4; O2SAT 100; O2SAT 99; BMI 22.4
--- NOTE | 2024-07-22 13:44 | ECG_ITS ---
Test Reason : AFIB Blood Pressure : / mmHG Vent. Rate : 126 BPM Atrial Rate : 000 BPM P-R Int : 000 ms QRS Dur : 124 ms QT Int : 390 ms P-R-T Axes : 000 -12 159 degrees QTc Int : 564 ms Atrial fibrillation with rapid ventricular response Non-specific intra-ventricular conduction delay Minimal voltage criteria for LVH, may be normal variant ( [place] product ) Marked ST abnormality, possible inferolateral subendocardial injury Abnormal ECG When compared with ECG of 25-APR-2024 09:46, Vent. rate has increased BY 47 BPM T wave inversion no longer evident in Anterior leads Referred By: Christa Camarillo Electronically Signed By:MORALES HOLT
[2024-07-22 13:45] VITALS: BP 121/75; PULSE 126; RESP 14; TEMP 37.4; O2SAT 99
[2024-07-22 14:00] LABS: MANUAL DIFF FLAG NO
[2024-07-22 14:04] LABS: Basophils Absolute Auto 0.1 X10*3/uL (0.0-0.2); Basophils Percent Auto 0.4 % (0-2); Eosinophils Percent Auto 0.1 % (0-4); Hematocrit 33.8 % (37.0-47.0); Hemoglobin 10.8 g/dl (12.0-16.0); Imm Gran Abs Auto 0.11 X10*3/uL (0.00-0.03); Imm Gran Pct Auto 0.8 % (0.0-0.4); Lymphocytes Absolute Auto 0.6 X10*3/uL (1.2-4.9); Lymphocytes Percent Auto 4.1 % (20-40); Mean Corpuscular Hemoglobin 25.1 pg (27.0-33.0); Mean Corpuscular Volume 78.4 fL (80.0-98.0); Mean Platelet Volume 9.7 fL (9.4-12.3); Monocytes Absolute Auto 0.9 X10*3/uL (0.1-1.2); Monocytes Percent Auto 6.6 % (2-11); Neutrophils Absolute Auto 12.2 x10*3/uL (2.0-8.3); Platelet Count 280 X10*3/uL (160-400); Red Blood Count 4.31 X10*6/uL (4.20-5.50); Red Cell Distribution Width 15.5 % (11.0-16.0); White Blood Count 13.9 X10*3/uL (4.8-10.8)
--- NOTE | 2024-07-22 14:05 | ED_ITS ---
HPI - Arrhythmia/Palpitations General Chief Complaint: Arrhythmia/Palpitations Stated Complaint: A-FIB, HR 134 Time Seen by Provider: 07/22/24 13:36 Source: patient and old records reviewed Mode of arrival: EMS Limitations: other (very poor historian) History of Present Illness ED Provider: Ferdinand Camarillo HPI narrative: 68 yo F with a history of atrial fibrillation with rapid ventricular response, acute on chronic HFrEF, [place], HTN, Atherosclerotic cardiovascular disease, arthritis, GERD, thyroid disease, CKD, CHF, COPD, multiple sclerosis, arthritis, on anticoagulant therapy presents to the ER today with atrial fibrillation and burning/increased frequency in urination. Patient states that 1 week ago she started feeling a burning sensation while peeing and since has had multiple episodes of incontinence. She reports increased frequency in urination, bilateral flank pain, intermittent nausea. Denies fever, chills, foul smelling urine, vaginal d/c. Patient reports that her AFib started over the night and has been consistent since. Reports SOB and weakness. Took Metoprolol last night. Denies CP, palpitations, dizziness, cough. Patient also reports a scab on the ventral aspect of her left foot resulting from a drained blood blister that occurred after dropping a shampoo bottle on it. MD complaint: atrial fibrillation Onset (ago): hour(s) Duration: constant Severity: moderate Context: awoke with symptoms Arrhythmia history: atrial fibrillation, on anti-coagulants and history of electrical cardioversion Associated symptoms: shortness of breath, nausea and feeling of impending doom Related Data Home Medications ?Medication ?Instructions ?Recorded ?Confirmed paroxetine HCl 40 mg tablet 40 mg PO BEDTIME 10/03/20 07/01/24 cholecalciferol (vitamin D3) 25 25 mcg PO DAILY 12/20/20 07/01/24 mcg (1,000 unit) tablet (Vitamin D3) cyanocobalamin (vitamin B-12) 1,000 mcg PO DAILY 12/20/20 07/01/24 1,000 mcg tablet (Vitamin B-12) melatonin 10 mg tablet 10 mg PO BEDTIME Insomnia 01/13/23 07/01/24 levothyroxine 50 mcg tablet 50 mcg PO DAILY@0600 09/02/23 07/01/24 (Synthroid) metoprolol succinate 25 mg 25 mg PO DAILY 12/25/23 07/01/24 tablet,extended release 24 hr pantoprazole 40 mg tablet,delayed 40 mg PO DAILY@0630 03/15/24 07/01/24 release albuterol sulfate 90 mcg/actuation 2 puff inhalation Q4H PRN wheezing 03/30/24 07/01/24 aerosol inhaler acetaminophen 500 mg tablet 1,000 mg PO TID 04/21/24 07/01/24 amiodarone 200 mg tablet 200 mg PO DAILY 04/21/24 07/01/24 docusate sodium 100 mg capsule 100 mg PO BID 04/21/24 07/01/24 (Colace) Previous Rx's ?Medication ?Instructions ?Recorded atorvastatin 80 mg tablet 80 mg PO BEDTIME #90 tabs 07/28/23 clopidogrel 75 mg tablet 75 mg PO DAILY #90 tabs 09/02/23 apixaban 5 mg tablet (Eliquis) 5 mg PO BID #180 tabs 02/05/24 fluticasone 113 mcg-salmeterol 14 1 inh inhalation Q12H copd 30 days 02/12/24 mcg/actuation breath activated #1 ea powdr furosemide 20 mg tablet 40 mg PO DAILY 90 days #180 tabs 03/16/24 Allergies Allergy/AdvReac Type Severity Reaction Status Date / Time codeine [Codeine] AdvReac Mild vomiting Verified 07/22/24 13:41 Review of Systems 2 Review of Systems: Yes all other systems are reviewed and are negative [facility] Past Medical History Medical History Atrial fibrillation with rapid ventricular response Osteoarthritis of left hip Bilateral cataracts History of cardioversion Myocardial infarction Arthritis Hx of transfusion of packed red blood cells Thyroid disease GERD (gastroesophageal reflux disease) CKD (chronic kidney disease) On anticoagulant therapy History of smoking 30 or more pack years PAF (paroxysmal atrial fibrillation) Left renal artery stenosis Personal history of nicotine dependence Cardiomyopathy Essential hypertension Atherosclerotic cardiovascular disease Asymmetric blood pressures Acute on chronic systolic (congestive) heart failure CHF (congestive heart failure) CAD (coronary artery disease) Multiple sclerosis Pulmonary nodules COPD (chronic obstructive pulmonary disease) Peripheral arterial occlusive disease Surgical History History of endoscopy History of colonoscopy History of heart artery stent (~2018) Status post angioplasty with stent (~09/2018) S/P insertion of iliac artery stent (~02/2019) S/P cardiac cath (~12/2020) History of cholecystectomy (~02/2009) Family History Family History Father No problems noted. Mother No problems noted. Brother Diabetes Social History Social History Household Members: None Housing: House Housing Other:: Sent in from [facility] Are you a primary healthcare representative to a significant other at home: No Do you presently have visiting nurse or other home services: No Alcohol intake: never Comment: aware of trip hazard Patient Tobacco Use Status: Former Tobacco user Tobacco use type: Cigarette e-Cigarette/Vaping Use: Never Used Second Hand Smoke Exposure: No Advance Directives: Yes Advance Directives on File: Yes Advance Directives Date on File: 12/27/20 Do you have a plan to hurt others: No Plan service: No Current occupational status: retired Cognitive needs: Yes (cane) Hearing needs: No Vision needs: Yes (reading glasses) Physical Exam 2 Vital Signs: Vital Signs: Last Vital Signs Temp 98.6 F 07/22/24 18:08 Pulse 91 07/22/24 18:08 Resp 12 07/22/24 18:08 BP 111/67 07/22/24 18:08 Pulse Ox 100 07/22/24 18:08 O2 Del Method Room Air 07/22/24 18:08 BMI result Body Mass Index 22.4 Appearance: Alert. Oriented X3. Elderly female appears mildly distressed lying in bed. Speaking in complete sentences. Head: normocephalic, atraumatic. Eyes: Pupils equal, round and reactive to light. ENT: Normal external inspection. Neck: Normal inspection. Neck supple. CVS: Irregularly irregular rapid heart rate and rhythm. Pulses normal. Respiratory: Mild respiratory distress. Breath sounds normal. Abdomen: Soft and nontender. No CVA tenderness. Skin: Skin warm and dry. Normal skin color. Normal skin turgor. No rashes. Extremities: No lower extremity edema. No joint swelling. Neuro/psych: Oriented X 3. No motor deficit. No sensory deficit. CN II-XII grossly intact. Normal speech and cognition. Course Reevaluation(s) Reevaluation #1: Blood pressure and heart rate are stable after administration of IV Lopressor and p.o. Lopressor. Time: 17:21 Medications Administered Discontinued Medications Generic Name Dose Route Start Last Admin Trade Name Leo PRN Reason Stop Dose Admin Lactated Ringer's 1,000 mls @ 999 mls/hr 07/22/24 14:00 07/22/24 16:56 Lr IV 07/22/24 15:00 Infused .Q1H1M JOSE Infusion Ceftriaxone Sodium 1 gm/ 50 mls @ 100 mls/hr 07/22/24 16:40 07/22/24 17:34 Sodium Chloride IV 07/22/24 17:09 Infused ONCE ONE Infusion Metoprolol Tartrate 5 mg 07/22/24 13:58 07/22/24 15:45 Metoprolol Tartrate 5 Mg/5 Ml Vial IVPUSH 07/22/24 13:59 2.5 mg ONCE ONE Administration Protocol Metoprolol Tartrate 12.5 mg 07/22/24 16:00 07/22/24 17:01 Metoprolol Tartrate 12.5 Mg Halftab PO 07/22/24 16:01 12.5 mg ONCE ONE Administration Protocol Medical Decision Making Medical Decision Making MDM Narrative: 68 yo F with a history of atrial fibrillation with rapid ventricular response, acute on chronic HFrEF, [place], HTN, Atherosclerotic cardiovascular disease, arthritis, GERD, thyroid disease, CKD, CHF, COPD, multiple sclerosis, arthritis, on anticoagulant therapy who presents to the ER today via EMS with atrial fibrillation and burning/increased frequency in urination. On arrival she looked to be in mild respiratory distress with concern for atrial fibrillation presumably due to a UTI. HR 120 bpm with stable blood pressure of 121/75 mmHg, saturating well on RA on arrival. Straight catheterization, labs, metoprolol for rate control. Lab work showing leukocytosis, anemia improved from last month, SUSAN on CKD, chronically elevated BNP with no signs of volume overload on exam, chronically elevated troponin. Urinalysis positive for infection. IV Rocephin given. Rapid AFib improved after IV and p.o. Lopressor. Being cautious IV fluid given her cardiac history. She has an SUSAN. CT scan with mild stranding around the left kindey. this in combination with positive UA is concerning for pyelonephritis. will admit for further management. patient updated on plan of care. Differential Diagnosis Differential Diagnoses: The differential diagnosis associated with the presentation includes atrial fibrillation, acute cystitis, pyelonephritis, COPD exacerbation, CHF exacerbation, nephrolithiasis. Admission/Observation Consideration of admission/observation: Escalation of care including admission/observation considered Consult Healthcare Provider Management of the patient was discussed with: Hospitalist Lab Data MDM Lab Attestation statement: I reviewed the patient's lab results. Leukocytosis, anemia, SUSAN on CKD, mild hypokalemia 07/22/24 13:51 07/22/24 13:51 Labs: Lab Results 07/22/24 07/22/24 07/22/24 Range/Units 13:51 14:56 15:38 WBC 13.9 H (4.8-10.8) X10*3/uL RBC 4.31 D (4.20-5.50) X10*6/uL Hgb 10.8 L D (12.0-16.0) g/dl Hct 33.8 L (37.0-47.0) % MCV 78.4 L (80.0-98.0) fL MCH 25.1 L (27.0-33.0) pg MCHC 32.0 (31.0-35.0) g/dl RDW 15.5 (11.0-16.0) % Plt Count 280 (160-400) X10*3/uL MPV 9.7 (9.4-12.3) fL Immature Gran % (Auto) 0.8 H (0.0-0.4) % Neut % (Auto) 88.0 H (45-73) % Lymph % (Auto) 4.1 L (20-40) % [place] % (Auto) 6.6 (2-11) % Eos % (Auto) 0.1 (0-4) % Baso % (Auto) 0.4 (0-2) % Lymph # (Auto) 0.6 L (1.2-4.9) X10*3/uL [place] # (Auto) 0.9 (0.1-1.2) X10*3/uL Eos # (Auto) 0.0 (0.0-0.4) X10*3/uL Baso # (Auto) 0.1 (0.0-0.2) X10*3/uL Abs Immat Gran (auto) 0.11 H (0.00-0.03) X10*3/uL Absolute Neuts (auto) 12.2 H (2.0-8.3) x10*3/uL Absolute Nucleated RBC 0.000 (0.0-0.012) X10*3/uL Nucleated RBC % (auto) 0.0 (0.0-0.2) /100WBC Sodium 138 (135-145) mmol/L Potassium 3.2 L (3.3-5.1) mmol/L Chloride 103 (96-108) mmol/L Carbon Dioxide 23 (22-29) mmol/L Anion Gap 15 (12-20) BUN 38 H (9-16) mg/dL Creatinine 2.54 H (0.5-1.4) mg/dL Estim Creat Clear Calc 19.2 Estimated GFR 19 Random Glucose 108 (60-115) mg/dL Lactic Acid 1.5 (0.5-2.0) mmol/L Calcium 9.7 (8.4-10.2) mg/dL Magnesium 2.0 (1.6-2.6) mg/dL Total Bilirubin 0.4 (0.0-1.0) mg/dL Direct Bilirubin 0.2 (0.0-0.5) mg/dL AST 17 (5-31) U/L ALT 30 (0-31) U/L Alkaline Phosphatase 96 (39-117) U/L Troponin I High Sens 23.0 H (<3.5-17.0) ng/L B-Natriuretic Peptide 1644 H (<100) pg/mL Total Protein 7.5 (6.5-8.0) g/dL Albumin 3.5 (3.5-5.0) g/dL TSH 3.53 (0.32-4.0) uIU/mL Urine Color Yellow Urine Appearance Turbid Urine pH 5.5 (5.0-9.0) Ur Specific [place] 1.010 (1.005-1.025) Urine Protein 30 (1+) H (Neg-Trace) mg/dL Urine Glucose (UA) Negative (Negative) mg/dL Urine Ketones Negative (Negative) mg/dL Urine Blood Large (3+) H (Negative) Urine Nitrite Negative (Negative) Ur Leukocyte Esterase Large (3+) H (Negative) Urine RBC 3-5 H (0-2) /HPF Urine WBC >50 H (0-5) /HPF Ur Squamous Epith Cells 0-2 (0-2) /HPF Urine Bacteria 4+ (None Seen) Hyaline Casts 0-2 (0-2) /LPF Independent Interpretation I performed an independent interpretation of an: EKG, Plain X-Ray and CT Scan Interpretation: EKG with atrial fibrillation with rapid ventricular response, ventricular rate 126 beats per minute, prolonged QTC, question ST depressions in V4 CT scan with left sided hydronephrosis & stranding Chest x-ray without any florid pulmonary edema, focal infiltrate Radiology Impression Discussion of test interpretation with radiology: I have reviewed the radiologist's reading. Radiologist Impression: XR/XR chest 1V IMPRESSION: No acute cardiopulmonary disease. CT/CT abdomen pelvis wo IV con IMPRESSION: 1. A cause for the patient's bilateral flank pain and SUSAN has not been found. Previously seen left-sided hydronephrosis has resolved. 2. Incidental note made of a stable 6 mm right middle lobe nodule, cholecystectomy, hysterectomy and left hip prosthesis. 3. There is some mild stranding around the left kidney and proximal ureter. Please correlate with urinalysis. 4. Other incidental findings as described above. Independent Historian Clinical information obtained from an independent historian. History obtained from or confirmed by: EMS External Record Review External record reviewed: Office record, Outpatient record, Prior outpatient labs and Prior outpatient radiology Prescription Management I considered prescription management with: Pain Medication and Antibiotic Chronic Conditions Patient?s care impacted by: Hypertension and Other (AFib, CHF, CKD) Critical Care Time Critical Care Time Critical Care Time: Yes Total Critical Care Time: 47 Attestation: I have personally provided critical care time exclusive of time spent on separately billable procedures. Time includes review of lab data, radiology results, discussion with consultants, and monitoring for potential decompensation. Intervention performed as documented. Discharge Plan Discharge Clinical Impression: Acute kidney injury superimposed on CKD, Atrial fibrillation with rapid ventricular response, Acute pyelonephritis Patient Disposition: Admitted As Inpatient
[2024-07-22 14:23] LABS: B Type Natriuretic Peptide 1644 pg/mL (<100)
[2024-07-22 14:25] LABS: Alanine Aminotransferase 30 U/L (0-31); Albumin Level 3.5 g/dL (3.5-5.0); Alkaline Phosphatase 96 U/L (39-117); Anion Gap 15 (12-20); Aspartate Amino Transferase 17 U/L (5-31); Bilirubin Direct 0.2 mg/dL (0.0-0.5); Bilirubin Total 0.4 mg/dL (0.0-1.0); Blood Urea Nitrogen 38 mg/dL (9-16); Calcium 9.7 mg/dL (8.4-10.2); Carbon Dioxide 23 mmol/L (22-29); Chloride 103 mmol/L (96-108); Creatinine Clr Calc Pharmacy 19.2; Estimated Glomerular Filt Rate 19; Glucose Random 108 mg/dL (60-115); Potassium 3.2 mmol/L (3.3-5.1); Sodium 138 mmol/L (135-145); Total Protein 7.5 g/dL (6.5-8.0)
[2024-07-22 14:39] LABS: TSH reflex Free T4 3.53 uIU/mL (0.32-4.0)
[2024-07-22 15:15] LABS: Lactic Acid 1.5 mmol/L (0.5-2.0)
[2024-07-22 15:41] VITALS: BP 115/82; PULSE 110; RESP 16; TEMP 36.9; O2SAT 98
[2024-07-22] MEDS: Lactated Ringers 1,000 ML 999 ML IV (15:45)
[2024-07-22] MEDS: Metoprolol Tartrate 5 MG/5 ML VIAL IVPUSH (15:45)
--- NOTE | 2024-07-22 15:46 | PC.NURSE ---
Per KARLY Humphrey, only give 2.5mg IVP Metoprolol at this time.
[2024-07-22 16:31] LABS: Appearance Urine Turbid; Color Urine Yellow; Glucose Urine UA Negative (Negative); Leukocyte Esterase Urine Large (3+) (Negative); Nitrite Urine Negative (Negative); PH 5.5 (5.0-9.0); UMIC TRIGGER UACC YES; Urine Blood Large (3+) (Negative); Urine Ketones Negative (Negative); Urine Protein 30 (1+) mg/dL (Neg-Trace)
[2024-07-22 16:58] LABS: Bacteria Urine 4+ (None Seen); Hyaline Casts Urine 0-2 /LPF (0-2); Squamous Epithelial Cell Urine 0-2 /HPF (0-2); UACC Culture Trigger YES; WBC Urine >50 /HPF (0-5)
[2024-07-22 17:01] VITALS: BP 121/69; PULSE 94; RESP 14; O2SAT 96
[2024-07-22] MEDS: Metoprolol Tartrate 12.5 MG HALFTAB PO (17:01)
[2024-07-22] MEDS: cefTRIAXone sodium 1 GM in 0.9 % Sodium Chloride 50 ML IV (17:01)
[2024-07-22 18:08] VITALS: BP 111/67; PULSE 91; RESP 12; TEMP 37; O2SAT 100
--- NOTE | 2024-07-22 18:10 | P.HPHOSP_ITS ---
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 Patient developed difficulty breathing with exertion late last night. Reports she was barely able to ambulate or hold onto her walker. This morning symptoms persisted, and pt states she just felt terrible . Her pulse oximetry noted heart rate to be elevated at 144, which prompted her visit to the ED. Patient denies chest pain/pressure or palpitations. States she only gets short of breath when she goes into AFib with RVR. Has also been experiencing right flank pain, dysuria, and polyuria especially at night for the past few days. Some nausea but no vomiting. Reports reduced p.o. intake the past few days. Denies abdominal pain. Upon physical examination patient is noted to have a large, thick collection of dried blood on dorsal aspect of distal left foot. Patient states that occurred 3-4 weeks ago when she dropped a shampoo bottle on her foot in the shower. However, review of records indicates incident occurred at the end of April. Patient came to the ED on 05/28/2024 after having a hemorrhagic bulla develop ?that was aspirated in the ED. Pt is on both Plavix and Eliquis and reports area subsequently bled and thick scab formed over it. Patient lives alone without services and has been taking care of it on her own. In the ED pt was tachycardic up to 126 and with low-grade fever of 99.4. Labs were significant for leukocytosis of 13.9, stable microcytic anemia of 10.8/33.8, potassium 3.2, BUN 38, creatinine 2.54 (elevated from 1.47 on 05/27/2024), initial troponin 23, and BNP 1 644. UA consistent with acute UTI. CXR showed no acute cardiopulmonary disease. CT?of abdomen and pelvis showed no evidence to explain patient's bilateral flank pain and SUSAN, but did show mild stranding around left kidney and proximal ureter. EKG demonstrated AFib with RVR of [address] abnormalities. Pt was treated with metoprolol 5 mg IV in 12.5 mg p.o., IVF, and ceftriaxone. Pt will be admitted to the hospital for treatment and further evaluation of acute UTI with sepsis and SUSAN in the setting of AFib with RVR. Review of Systems 2 Review of Systems: SOB, GONZALEZ Nausea, no vomiting Polyuria, dysuria, right flank pain Denies fever, chills, abdominal pain No chest pain/pressure, palpitations [facility] Medical History Atrial fibrillation with rapid ventricular response Osteoarthritis of left hip Bilateral cataracts History of cardioversion Myocardial infarction Arthritis Hx of transfusion of packed red blood cells Thyroid disease GERD (gastroesophageal reflux disease) CKD (chronic kidney disease) On anticoagulant therapy History of smoking 30 or more pack years PAF (paroxysmal atrial fibrillation) Left renal artery stenosis Personal history of nicotine dependence Cardiomyopathy Essential hypertension Atherosclerotic cardiovascular disease Asymmetric blood pressures Acute on chronic systolic (congestive) heart failure CHF (congestive heart failure) CAD (coronary artery disease) Multiple sclerosis Pulmonary nodules COPD (chronic obstructive pulmonary disease) Peripheral arterial occlusive disease Family History Father No problems noted. Mother No problems noted. Brother Diabetes Surgical History History of endoscopy History of colonoscopy History of heart artery stent (~2018) Status post angioplasty with stent (~09/2018) S/P insertion of iliac artery stent (~02/2019) S/P cardiac cath (~12/2020) History of cholecystectomy (~02/2009) Social History Household Members: None Housing: House Housing Other:: Sent in from [place] Are you a primary early breastfeeding care specialist to a significant other at home: No Do you presently have visiting nurse or other home services: No Alcohol intake: never Comment: aware of trip hazard Patient Tobacco Use Status: Former Tobacco user Tobacco use type: Cigarette e-Cigarette/Vaping Use: Never Used Second Hand Smoke Exposure: No Advance Directives: Yes Advance Directives on File: Yes Advance Directives Date on File: 12/27/20 Do you have a plan to hurt others: No Plan service: No Current occupational status: retired Cognitive needs: Yes (cane) Hearing needs: No Vision needs: Yes (reading glasses) Meds Allergies Allergy/AdvReac Type Severity Reaction Status Date / Time codeine [Codeine] AdvReac Mild vomiting Verified 07/22/24 13:41 Home Medications ?Medication ?Instructions ?Recorded ?Confirmed ?Last Taken ?Type paroxetine HCl 40 mg tablet 40 mg PO BEDTIME 10/03/20 07/22/24 07/21/24 History cholecalciferol (vitamin D3) 25 25 mcg PO DAILY 12/20/20 07/22/24 07/22/24 History mcg (1,000 unit) tablet (Vitamin D3) cyanocobalamin (vitamin B-12) 1,000 mcg PO DAILY 12/20/20 07/22/24 07/22/24 History 1,000 mcg tablet (Vitamin B-12) melatonin 10 mg tablet 10 mg PO BEDTIME Insomnia 01/13/23 07/22/24 07/21/24 History levothyroxine 50 mcg tablet 50 mcg PO DAILY@0600 09/02/23 07/22/24 07/22/24 History (Synthroid) metoprolol succinate 25 mg 25 mg PO DAILY 12/25/23 07/22/24 07/22/24 History tablet,extended release 24 hr pantoprazole 40 mg tablet,delayed 40 mg PO DAILY@0630 03/15/24 07/22/24 07/22/24 History release acetaminophen 500 mg tablet 1,000 mg PO DAILY PRN Pain 04/21/24 07/22/24 Unknown History amiodarone 200 mg tablet 200 mg PO DAILY 04/21/24 07/22/24 07/22/24 History docusate sodium 100 mg capsule 100 mg PO BID 04/21/24 07/22/24 07/22/24 History (Colace) Physical Exam 2 Vital Signs and Narrative: Vital Signs: Last Vital Signs Temp 98.6 F 07/22/24 18:08 Pulse 91 07/22/24 18:08 Resp 12 07/22/24 18:08 BP 111/67 07/22/24 18:08 Pulse Ox 100 07/22/24 18:08 O2 Del Method Room Air 07/22/24 18:08 BMI result Body Mass Index 22.4 Constitutional: Alert, in no acute distress. Mental Status: Oriented to person, place and time. Eyes: Pupils are equal, round, and reactive to light. Ear, Nose, and Throat: Oropharynx clear, mucous membranes moist. Ears and nose without deformities. Trachea midline. Respiratory: Clear to auscultation bilaterally. No wheezing, rales, or rhonchi. Cardiovascular: S1, S2 regular. No murmurs, rubs, or gallops. Gastrointestinal: Abdomen soft, non-tender, non-distended. Normal bowel sounds. Neurologic: Cranial nerves II-XII are grossly intact bilaterally. No focal neurological deficits. Moves all extremities spontaneously. Skin: Warm, dry. Back: No CVA tenderness. Extremities: No edema. Large, thick, and foul-smelling eschar on dorsal aspect of lateral distal left foot. No sign of cellulitis. As pictured below. Psychiatric: Normal mood and affect. Results Labs 07/23/24 04:56 07/23/24 04:56 Labs: Laboratory Results - last 24 hr 07/22/24 07/22/24 07/22/24 13:51 14:56 15:38 MCV 78.4 L MCH 25.1 L MCHC 32.0 RDW 15.5 Plt Count 280 MPV 9.7 Immature Gran % (Auto) 0.8 H Neut % (Auto) 88.0 H Lymph % (Auto) 4.1 L Hendry % (Auto) 6.6 Eos % (Auto) 0.1 Baso % (Auto) 0.4 Lymph # (Auto) 0.6 L Hendry # (Auto) 0.9 Eos # (Auto) 0.0 Baso # (Auto) 0.1 Abs Immat Gran (auto) 0.11 H Absolute Neuts (auto) 12.2 H Absolute Nucleated RBC 0.000 Nucleated RBC % (auto) 0.0 Anion Gap 15 Estim Creat Clear Calc 19.2 Estimated GFR 19 Random Glucose 108 Lactic Acid 1.5 Calcium 9.7 Magnesium 2.0 Total Bilirubin 0.4 Direct Bilirubin 0.2 AST 17 ALT 30 Alkaline Phosphatase 96 Troponin I High Sens 23.0 H B-Natriuretic Peptide 1644 H Total Protein 7.5 Albumin 3.5 TSH 3.53 Urine Color Yellow Urine Appearance Turbid Urine pH 5.5 Ur Specific [place] 1.010 Urine Protein 30 (1+) H Urine Glucose (UA) Negative Urine Ketones Negative Urine Blood Large (3+) H Urine Nitrite Negative Ur Leukocyte Esterase Large (3+) H Urine RBC 3-5 H Urine WBC >50 H Ur Squamous Epith Cells 0-2 Urine Bacteria 4+ Hyaline Casts 0-2 Imaging Radiologist's Impressions: Impressions Chest X-Ray 07/22/24 14:00 IMPRESSION: No acute cardiopulmonary disease. Electronically signed by: Bryon Ford 07/22/2024 03:23 PM EDT RP Abdomen/Pelvis CT 07/22/24 16:11 IMPRESSION: 1. A cause for the patient's bilateral flank pain and SUSAN has not been found. Previously seen left-sided hydronephrosis has resolved. 2. Incidental note made of a stable 6 mm right middle lobe nodule, cholecystectomy, hysterectomy and left hip prosthesis. 3. There is some mild stranding around the left kidney and proximal ureter. Please correlate with urinalysis. 4. Other incidental findings as described above. Fleischner guidelines were followed. 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 Pt will be admitted to the hospital for treatment and further evaluation of acute UTI with sepsis and SUSAN in the setting of AFib with RVR. Acute UTI with sepsis Patient with polyuria, dysuria x3-4 days, UA consistent with acute UTI Patient meets sepsis criteria: Tachycardia, leukocytosis; lactic acid WNL at 1.5 Patient given IVF and started on broad-spectrum antibiotics in the ED Will treat with ceftriaxone, started 07/22/2024 Follow cultures AFib with RVR Heart rate has been as high as the 120s while in the ED, 140s at home In the setting of UTI Patient given metoprolol 5 mg IV and 12.5 mg p.o. 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 Wylie DVT Prophylaxis: On Eliquis Pt will require a hospitalization of at least two nights for treatment of?SUSAN on CKD in the setting of UTI with sepsis. Patient will require inpatient level of care for administration of IVF, IV antibiotics, monitoring of labs and cultures, and specialist consultation with Nephrology. Quality Stroke Does the patient have a stroke diagnosis?: No VTE Prior VTE?: No VTE Risk Level:: Medical - moderate - high VTE Device Contraindication: Treatment Not Indicated VTE Drug Contraindication: N/A - Med Ordered
--- NOTE | 2024-07-22 19:00 | PC.NURSE ---
Report given to Marybel Mir RN
--- NOTE | 2024-07-22 19:06 | PC.NURSE ---
received report from Sahra Arndt RN, assume care of pt at this time
--- NOTE | 2024-07-22 19:49 | PC.NURSE ---
pt requested something to eat, pt given sandwich, pudding and kayla dwain. Pt rfused the PO potassium
[2024-07-22 20:22] VITALS: BP 99/51; PULSE 93; RESP 18; TEMP 36.9; O2SAT 100
--- NOTE | 2024-07-22 20:28 | PHA.MEDREC ---
Pharmacy Consult ? Medication Reconciliation Pharmacy has completed the medication reconciliation. Spoke to patient and confirmed medication list. Patient has medication list with her. She verified she takes amiodarone, apixaban and clopidogrel. She said she does not use albuterol inhaler since she has the fluticasone 113 mcg-salmeterol 14 mcg inhaler.
--- NOTE | 2024-07-22 22:43 | MHC.EDTECH ---
at this time this tech transfered the pt from the ED stretcher and into a hospital bed due to her admission status, the pt was a x3 assist slide transfer, pt was then connected to the animal warden again and suewick was check to make sure it was still in place and working properly. Pt tolerated the transfer well, and blanket given for comfort and call light given for safety
[2024-07-22] MEDS: Acetaminophen 325 MG TABLET 650 MG PO (23:31)
[2024-07-22] MEDS: Atorvastatin Calcium 80 MG TABLET PO (23:31)
[2024-07-22] MEDS: PARoxetine HCL 40 MG TABLET PO (23:31)
[2024-07-22] MEDS: Apixaban 5 MG TABLET PO (23:31)
[2024-07-22] MEDS: Melatonin 3 MG TABLET 6 MG PO (23:32)
--- NOTE | 2024-07-22 23:46 | PC.NURSE ---
pt c/o of pain in right hip, offered a warm pack, pt requested a cold pack, which was given. Pt medicated for pain and sleep
[2024-07-23] VITALS (9 sets, daily range): BP systolic 103–137; BP diastolic 51–82; PULSE 76–109; RESP 14–20; TEMP 36.2–37.1; O2SAT 92–98
[2024-07-23] MEDS: ondansetron HCL 4 MG/2 ML VIAL IVPUSH (01:54)
--- NOTE | 2024-07-23 02:36 | PC.NURSE ---
at 0150, called into pt's room, pt requested holger bag . Pt vomited. Pt medicated with zofran.
[2024-07-23 05:10] LABS: Hematocrit 31.4 % (37.0-47.0); Hemoglobin 9.9 g/dl (12.0-16.0); Mean Corpuscular HGB Conc 31.5 g/dl (31.0-35.0); Mean Corpuscular Hemoglobin 24.9 pg (27.0-33.0); Mean Corpuscular Volume 79.1 fL (80.0-98.0); Mean Platelet Volume 9.9 fL (9.4-12.3); Platelet Count 285 X10*3/uL (160-400); Red Blood Count 3.97 X10*6/uL (4.20-5.50); Red Cell Distribution Width 15.6 % (11.0-16.0); White Blood Count 11.9 X10*3/uL (4.8-10.8)
[2024-07-23 05:27] LABS: Anion Gap 15 (12-20); Blood Urea Nitrogen 38 mg/dL (9-16); Calcium 9.3 mg/dL (8.4-10.2); Carbon Dioxide 25 mmol/L (22-29); Chloride 104 mmol/L (96-108); Creatinine Clr Calc Pharmacy 20.6; Estimated Glomerular Filt Rate 20; Glucose Random 110 mg/dL (60-115); Potassium 3.2 mmol/L (3.3-5.1); Sodium 141 mmol/L (135-145)
[2024-07-23] MEDS: Levothyroxine Sodium 50 MCG TABLET PO (06:35)
--- NOTE | 2024-07-23 07:02 | PC.NURSE ---
report given to Roxy WISE
[2024-07-23 08:02] LABS: Glucose, Whole Blood 97 mg/dL (60-115)
[2024-07-23] MEDS: Clopidogrel Bisulfate 75 MG TABLET PO (08:07)
[2024-07-23] MEDS: Cyanocobalamin (Vitamin B-12) 1,000 MCG TABLET 1000 MCG PO (08:07)
[2024-07-23] MEDS: Cholecalciferol (Vitamin D3) 25 MCG TABLET PO (08:07)
[2024-07-23] MEDS: Apixaban 5 MG TABLET PO ×2 (08:07→21:15)
[2024-07-23] MEDS: Metoprolol Succinate ER 25 MG TAB.ER.24H PO (08:07)
[2024-07-23] MEDS: Omeprazole 40 MG CAPSULE.DR PO (08:07)
[2024-07-23] MEDS: Potassium Chloride ER 20 MEQ TAB.ER.PRT 40 MEQ PO (08:07)
[2024-07-23] MEDS: Amiodarone HCL 200 MG TABLET PO (08:07)
--- NOTE | 2024-07-23 08:22 | PC.NURSE ---
Addendum entered by Roxy Allison RN 07/23/24 08:23: patient refused potassium medication and colace, mediacted per DEC, takes meds whole with water Original Note: patient sitting up having breakfast, currently in afib, rate controlled. patient is alert and oriented x3. VSS, respirations equal and unlabored
--- NOTE | 2024-07-23 08:30 | PM.CNGS ---
History of Present Illness Consult details Consult date: 07/23/24 Requesting physician: Sole Gonzalez Narrative: 68 year old female presenting with shortness of breath and tachycardia. She was admitted to the hospitalist service for further management. She was noted to have a left foot wound on the dorsal surface and reports dropping a shampoo bottle on the foot a proximally 1 month ago. She was seen in the ED and needle aspiration performed. She is on oral anticoagulation which resulted in the subcutaneous hematoma. She has been caring for the wound herself with dry sterile nonadherent dressings. In the ED she was noted to have some foul-smelling discharge from the wound and surgical consultation was requested for possible debridement of the eschar. She denies any pain associated with the foot at this time. Review of Systems Review of Systems: Yes Unobtainable due to mental condition [facility] Past Medical History Medical History Atrial fibrillation with rapid ventricular response Osteoarthritis of left hip Bilateral cataracts History of cardioversion Myocardial infarction Arthritis Hx of transfusion of packed red blood cells Thyroid disease GERD (gastroesophageal reflux disease) CKD (chronic kidney disease) On anticoagulant therapy History of smoking 30 or more pack years PAF (paroxysmal atrial fibrillation) Left renal artery stenosis Personal history of nicotine dependence Cardiomyopathy Essential hypertension Atherosclerotic cardiovascular disease Asymmetric blood pressures Acute on chronic systolic (congestive) heart failure CHF (congestive heart failure) CAD (coronary artery disease) Multiple sclerosis Pulmonary nodules COPD (chronic obstructive pulmonary disease) Peripheral arterial occlusive disease Family History Family History Father No problems noted. Mother No problems noted. Brother Diabetes Surgical History Surgical History History of endoscopy History of colonoscopy History of heart artery stent (~2018) Status post angioplasty with stent (~09/2018) S/P insertion of iliac artery stent (~02/2019) S/P cardiac cath (~12/2020) History of cholecystectomy (~02/2009) Social History Social History Household Members: None Housing: House Housing Other:: [facility] Are you a primary career resource specialist to a significant other at home: No Do you presently have visiting nurse or other home services: No Alcohol intake: never Comment: aware of trip hazard Patient Tobacco Use Status: Former Tobacco user Tobacco use type: Cigarette e-Cigarette/Vaping Use: Never Used Second Hand Smoke Exposure: No Advance Directives: Yes Advance Directives on File: Yes Advance Directives Date on File: 12/27/20 Do you have a plan to hurt others: No Plan service: No Current occupational status: retired Cognitive needs: Yes (cane) Hearing needs: No Vision needs: Yes (reading glasses) Meds Allergies Allergy/AdvReac Type Severity Reaction Status Date / Time codeine [Codeine] AdvReac Mild vomiting Verified 07/22/24 13:41 Active Medications: Current Medications Acetaminophen (Acetaminophen 325 Mg Tablet) 650 mg PO Q6H PRN PRN Reason: Pain, Mild (Pain Scale 1-3), fever or headache Last Admin: 07/22/24 23:31 Dose: 650 mg Amiodarone HCl (Amiodarone Hcl 200 Mg Tablet) 200 mg PO DAILY REPLACED BY [facility] Last Admin: 07/23/24 08:07 Dose: 200 mg Apixaban (Apixaban 5 Mg Tablet) 5 mg PO BID REPLACED BY [facility] Last Admin: 07/23/24 08:07 Dose: 5 mg Atorvastatin Calcium (Atorvastatin Calcium 80 Mg Tablet) 80 mg PO BEDTIME REPLACED BY [facility] Last Admin: 07/22/24 23:31 Dose: 80 mg Benzonatate (Benzonatate 100 Mg Capsule) 100 mg PO TID PRN PRN Reason: Cough Calcium Carbonate (Calcium Carbonate 750 Mg Tab.Chew) 750 mg PO Q4H PRN PRN Reason: Heartburn Clopidogrel Bisulfate (Clopidogrel Bisulfate 75 Mg Tablet) 75 mg PO DAILY REPLACED BY [facility] Last Admin: 07/23/24 08:07 Dose: 75 mg Cyanocobalamin (Cyanocobalamin (Vitamin B-12) 1,000 Mcg Tablet) 1,000 mcg PO DAILY REPLACED BY [facility] Last Admin: 07/23/24 08:07 Dose: 1,000 mcg Docusate Sodium (Docusate Sodium 100 Mg Capsule) 100 mg PO BID REPLACED BY [facility] Last Admin: 07/23/24 08:17 Dose: Not Given Sodium Chloride (Ns) 1,000 mls @ 50 mls/hr IVCONT .Q20H REPLACED BY [facility] Last Admin: 07/22/24 19:54 Dose: Not Given Ceftriaxone Sodium 1 gm/ (Sodium Chloride) 50 mls @ 100 mls/hr IV Q24H REPLACED BY [facility] Levothyroxine Sodium (Levothyroxine Sodium 50 Mcg Tablet) 50 mcg PO DAILY@629 REPLACED BY [facility] Last Admin: 07/23/24 06:35 Dose: 50 mcg Magnesium Hydroxide (Milk Of Magnesia 30 Ml Oral.Susp) 30 ml PO DAILY PRN PRN Reason: Constipation Melatonin (Melatonin 3 Mg Tablet) 6 mg PO BEDTIME PRN PRN Reason: Insomnia Last Admin: 07/22/24 23:32 Dose: 6 mg Metoprolol Succinate (Metoprolol Succinate Er 25 Mg Tab.Er.24h) 25 mg PO DAILY REPLACED BY [facility]; Protocol Last Admin: 07/23/24 08:07 Dose: 25 mg Omeprazole (Omeprazole 40 Mg Capsule.Dr) 40 mg PO DAILY@629 REPLACED BY [facility] Last Admin: 07/23/24 08:07 Dose: 40 mg Ondansetron HCl (Ondansetron Hcl 4 Mg/2 Ml Vial) 4 mg IVPUSH Q8H PRN PRN Reason: Nausea and Vomiting Last Admin: 07/23/24 01:54 Dose: 4 mg Paroxetine HCl (Paroxetine Hcl 40 Mg Tablet) 40 mg PO BEDTIME REPLACED BY [facility] Last Admin: 07/22/24 23:31 Dose: 40 mg Sodium Chloride (0.9 % Sodium Chloride Flush 3 Ml Syringe) 3 ml IVFLUSH QSHIFT REPLACED BY [facility] Last Admin: 07/23/24 08:23 Dose: Not Given Vitamin D (Cholecalciferol (Vitamin D3) 25 Mcg Tablet) 25 mcg PO DAILY REPLACED BY [facility] Last Admin: 07/23/24 08:07 Dose: 25 mcg Home Medications ?Medication ?Instructions ?Recorded ?Confirmed ?Last Taken ?Type paroxetine HCl 40 mg tablet 40 mg PO BEDTIME 10/03/20 07/22/24 07/21/24 History cholecalciferol (vitamin D3) 25 25 mcg PO DAILY 12/20/20 07/22/24 07/22/24 History mcg (1,000 unit) tablet (Vitamin D3) cyanocobalamin (vitamin B-12) 1,000 mcg PO DAILY 12/20/20 07/22/24 07/22/24 History 1,000 mcg tablet (Vitamin B-12) melatonin 10 mg tablet 10 mg PO BEDTIME Insomnia 01/13/23 07/22/24 07/21/24 History levothyroxine 50 mcg tablet 50 mcg PO DAILY@0600 09/02/23 07/22/24 07/22/24 History (Synthroid) metoprolol succinate 25 mg 25 mg PO DAILY 12/25/23 07/22/24 07/22/24 History tablet,extended release 24 hr pantoprazole 40 mg tablet,delayed 40 mg PO DAILY@0630 03/15/24 07/22/24 07/22/24 History release acetaminophen 500 mg tablet 1,000 mg PO DAILY PRN Pain 04/21/24 07/22/24 Unknown History amiodarone 200 mg tablet 200 mg PO DAILY 04/21/24 07/22/24 07/22/24 History docusate sodium 100 mg capsule 100 mg PO BID 04/21/24 07/22/24 07/22/24 History (Colace) Physical Exam Vital Signs: Vital Signs: Last Vital Signs Temp 97.8 F 07/23/24 08:18 Pulse 101 H 07/23/24 08:18 Resp 14 07/23/24 08:18 BP 128/68 07/23/24 08:18 Pulse Ox 92 07/23/24 08:18 O2 Del Method Room Air 07/23/24 08:18 BMI result Body Mass Index 22.4 Const: General: no acute distress Nutritional Appearance: well nourished Resp: Effort & Inspection: normal respiratory effort Cardio: Rate: tachycardic Rhythm: abnormal rhythm GI: Inspection: Yes normal to inspection Skin: Other: Warm, dry, no rashes Extrem: Other: 3 cm callus located over the dorsum of the left foot. Foul-smelling old blood noted below the surface. Examination under this callus revealed normal skin with no erythema or active bleeding. The overlying callus was able to be removed with the forceps. Remaining wound measured approximately 1.5 cm in diameter with the underlying blood clot on the surface. No active bleeding is noted at this time. Current dressing reapplied. Ankle/foot/toe images: 1. Site of foot wound left foot Results Labs 07/23/24 04:56 07/23/24 04:56 Labs: Abnormal lab results 07/22/24 07/22/24 07/23/24 Range/Units 13:51 15:38 04:56 WBC 13.9 H 11.9 H (4.8-10.8) X10*3/uL RBC 3.97 L (4.20-5.50) X10*6/uL Hgb 10.8 L D 9.9 L (12.0-16.0) g/dl Hct 33.8 L 31.4 L (37.0-47.0) % MCV 78.4 L 79.1 L (80.0-98.0) fL MCH 25.1 L 24.9 L (27.0-33.0) pg Immature Gran % (Auto) 0.8 H (0.0-0.4) % Neut % (Auto) 88.0 H (45-73) % Lymph % (Auto) 4.1 L (20-40) % Lymph # (Auto) 0.6 L (1.2-4.9) X10*3/uL Abs Immat Gran (auto) 0.11 H (0.00-0.03) X10*3/uL Absolute Neuts (auto) 12.2 H (2.0-8.3) x10*3/uL Potassium 3.2 L 3.2 L (3.3-5.1) mmol/L BUN 38 H 38 H (9-16) mg/dL Creatinine 2.54 H 2.38 H (0.5-1.4) mg/dL Troponin I High Sens 23.0 H (<3.5-17.0) ng/L B-Natriuretic Peptide 1644 H (<100) pg/mL Urine Protein 30 (1+) H (Neg-Trace) mg/dL Urine Blood Large (3+) H (Negative) Ur Leukocyte Esterase Large (3+) H (Negative) Urine RBC 3-5 H (0-2) /HPF Urine WBC >50 H (0-5) /HPF Short CBC 07/22/24 07/23/24 Range/Units 13:51 04:56 WBC 13.9 H 11.9 H (4.8-10.8) X10*3/uL Hgb 10.8 L D 9.9 L (12.0-16.0) g/dl Hct 33.8 L 31.4 L (37.0-47.0) % Plt Count 280 285 (160-400) X10*3/uL BMP 07/22/24 07/23/24 13:51 04:56 Sodium 138 141 Potassium 3.2 L 3.2 L Chloride 103 104 Carbon Dioxide 23 25 BUN 38 H 38 H Creatinine 2.54 H 2.38 H Calcium 9.7 9.3 Liver Function 07/22/24 Range/Units 13:51 Total Bilirubin 0.4 (0.0-1.0) mg/dL Direct Bilirubin 0.2 (0.0-0.5) mg/dL AST 17 (5-31) U/L ALT 30 (0-31) U/L Alkaline Phosphatase 96 (39-117) U/L Albumin 3.5 (3.5-5.0) g/dL Urine 07/22/24 Range/Units 15:38 Urine Color Yellow Urine Appearance Turbid Urine pH 5.5 (5.0-9.0) Ur Specific [place] 1.010 (1.005-1.025) Urine Protein 30 (1+) H (Neg-Trace) mg/dL Urine Glucose (UA) Negative (Negative) mg/dL All other labs normal. Assessment and Plan (1) Hematoma: Status: Acute Plan 68-year-old female patient presenting with a hematoma of the left foot after dropping a shampoo bottle on the foot in the shower. She had an overlying eschar which actually was a collection of dried blood on the surface of the skin. This was easily removed and the underlying wound measures only proximally 1.5 cm. The overlying eschar measured approximately 3 cm. Recommend applying silver alginate followed by dry sterile dressings to the open wound the changed daily. Procedures Date of Service Date of Service: 07/23/24
--- NOTE | 2024-07-23 10:28 | HO.PM.IMPN ---
Subjective Subjective Date of Service: 07/23/24 Interval History: dyspnea/palpitations improved, in AF in 90s c/o R flank pain + dysuria afebrile Review of Systems Review of Systems: Yes all other systems are reviewed and are negative Physical Exam Vital Signs: Vital Signs: Last Vital Signs Temp 97.8 F 07/23/24 08:18 Pulse 101 H 07/23/24 08:18 Resp 14 07/23/24 08:18 BP 128/68 07/23/24 08:18 Pulse Ox 92 07/23/24 08:18 O2 Del Method Room Air 07/23/24 08:18 BMI result Body Mass Index 22.4 Gen: in no acute distress HEENT: sclera anicteric, moist mucus membranes Neck: supple Lungs: clear to auscultation bilaterally Heart: irregular, systolic murmur at apex Abd: soft, non-tender, non-distended : R CVA tenderness Ext: no edema Skin: warm/well-perfused, debrided 1.5 cm wound on dorsum of L foot Neuro: alert and oriented x3, no focal findings Psych: appropriate affect\ Objective Data Active Medications Acetaminophen (Acetaminophen 325 Mg Tablet) 650 mg PO Q6H PRN PRN Reason: Pain, Mild (Pain Scale 1-3), fever or headache Last Admin: 07/22/24 23:31 Dose: 650 mg Documented By: JOSE LUIS Amiodarone HCl (Amiodarone Hcl 200 Mg Tablet) 200 mg PO DAILY [facility] Last Admin: 07/23/24 08:07 Dose: 200 mg Documented By: CAROLINE Apixaban (Apixaban 5 Mg Tablet) 5 mg PO BID [facility] Last Admin: 07/23/24 08:07 Dose: 5 mg Documented By: CAROLINE Atorvastatin Calcium (Atorvastatin Calcium 80 Mg Tablet) 80 mg PO BEDTIME [facility] Last Admin: 07/22/24 23:31 Dose: 80 mg Documented By: JOSE LUIS Benzonatate (Benzonatate 100 Mg Capsule) 100 mg PO TID PRN PRN Reason: Cough Calcium Carbonate (Calcium Carbonate 750 Mg Tab.Chew) 750 mg PO Q4H PRN PRN Reason: Heartburn Clopidogrel Bisulfate (Clopidogrel Bisulfate 75 Mg Tablet) 75 mg PO DAILY [facility] Last Admin: 07/23/24 08:07 Dose: 75 mg Documented By: CAROLINE Cyanocobalamin (Cyanocobalamin (Vitamin B-12) 1,000 Mcg Tablet) 1,000 mcg PO DAILY [facility] Last Admin: 07/23/24 08:07 Dose: 1,000 mcg Documented By: CAROLINE Docusate Sodium (Docusate Sodium 100 Mg Capsule) 100 mg PO BID [facility] Last Admin: 07/23/24 08:17 Dose: Not Given Documented By: CAROLINE Non-Admin Reason: Patient Refused Sodium Chloride (Ns) 1,000 mls @ 50 mls/hr IVCONT .Q20H [facility] Last Admin: 07/22/24 19:54 Dose: Not Given Documented By: JOSE LUIS Non-Admin Reason: Patient Refused Ceftriaxone Sodium 1 gm/ (Sodium Chloride) 50 mls @ 100 mls/hr IV Q24H [facility] Levothyroxine Sodium (Levothyroxine Sodium 50 Mcg Tablet) 50 mcg PO DAILY@0630 [facility] Last Admin: 07/23/24 06:35 Dose: 50 mcg Documented By: LAWSON Magnesium Hydroxide (Milk Of Magnesia 30 Ml Oral.Susp) 30 ml PO DAILY PRN PRN Reason: Constipation Melatonin (Melatonin 3 Mg Tablet) 6 mg PO BEDTIME PRN PRN Reason: Insomnia Last Admin: 07/22/24 23:32 Dose: 6 mg Documented By: JOSE LUIS Metoprolol Succinate (Metoprolol Succinate Er 25 Mg Tab.Er.24h) 25 mg PO DAILY [facility]; Protocol Last Admin: 07/23/24 08:07 Dose: 25 mg Documented By: CAROLINE Omeprazole (Omeprazole 40 Mg Capsule.) 40 mg PO DAILY@0630 [facility] Last Admin: 07/23/24 08:07 Dose: 40 mg Documented By: CAROLINE Ondansetron HCl (Ondansetron Hcl 4 Mg/2 Ml Vial) 4 mg IVPUSH Q8H PRN PRN Reason: Nausea and Vomiting Last Admin: 07/23/24 01:54 Dose: 4 mg Documented By: JOSE LUIS Paroxetine HCl (Paroxetine Hcl 40 Mg Tablet) 40 mg PO BEDTIME [facility] Last Admin: 07/22/24 23:31 Dose: 40 mg Documented By: JOSE LUIS Sodium Chloride (0.9 % Sodium Chloride Flush 3 Ml Syringe) 3 ml IVFLUSH QSHIFT [facility] Last Admin: 07/23/24 08:23 Dose: Not Given Documented By: CAROLINE Non-Admin Reason: See Note Vitamin D (Cholecalciferol (Vitamin D3) 25 Mcg Tablet) 25 mcg PO DAILY [facility] Last Admin: 07/23/24 08:07 Dose: 25 mcg Documented By: CAROLINE Labs 07/23/24 04:56 07/23/24 04:56 Labs: Laboratory Results - last 24 hr 07/22/24 07/22/24 07/22/24 13:51 14:56 15:38 MCV 78.4 L MCH 25.1 L MCHC 32.0 RDW 15.5 Plt Count 280 MPV 9.7 Immature Gran % (Auto) 0.8 H Neut % (Auto) 88.0 H Lymph % (Auto) 4.1 L Moca % (Auto) 6.6 Eos % (Auto) 0.1 Baso % (Auto) 0.4 Lymph # (Auto) 0.6 L [place] # (Auto) 0.9 Eos # (Auto) 0.0 Baso # (Auto) 0.1 Abs Immat Gran (auto) 0.11 H Absolute Neuts (auto) 12.2 H Absolute Nucleated RBC 0.000 Nucleated RBC % (auto) 0.0 Anion Gap 15 Estim Creat Clear Calc 19.2 Estimated GFR 19 POC Glucose Random Glucose 108 Lactic Acid 1.5 Calcium 9.7 Magnesium 2.0 Total Bilirubin 0.4 Direct Bilirubin 0.2 AST 17 ALT 30 Alkaline Phosphatase 96 Troponin I High Sens 23.0 H B-Natriuretic Peptide 1644 H Total Protein 7.5 Albumin 3.5 TSH 3.53 Urine Color Yellow Urine Appearance Turbid Urine pH 5.5 Ur Specific [place] 1.010 Urine Protein 30 (1+) H Urine Glucose (UA) Negative Urine Ketones Negative Urine Blood Large (3+) H Urine Nitrite Negative Ur Leukocyte Esterase Large (3+) H Urine RBC 3-5 H Urine WBC >50 H Ur Squamous Epith Cells 0-2 Urine Bacteria 4+ Hyaline Casts 0-2 07/23/24 07/23/24 07/23/24 04:56 07:59 09:15 MCV 79.1 L MCH 24.9 L MCHC 31.5 RDW 15.6 Plt Count 285 MPV 9.9 Immature Gran % (Auto) Neut % (Auto) Lymph % (Auto) Moca % (Auto) Eos % (Auto) Baso % (Auto) Lymph # (Auto) Moca # (Auto) Eos # (Auto) Baso # (Auto) Abs Immat Gran (auto) Absolute Neuts (auto) Absolute Nucleated RBC 0.000 Nucleated RBC % (auto) 0.0 Anion Gap 15 Estim Creat Clear Calc 20.6 Estimated GFR 20 POC Glucose 97 Random Glucose 110 Lactic Acid Calcium 9.3 Magnesium 2.0 Total Bilirubin Direct Bilirubin AST ALT Alkaline Phosphatase Troponin I High Sens 18.0 H B-Natriuretic Peptide Total Protein Albumin TSH Urine Color Urine Appearance Urine pH Ur Specific [place] Urine Protein Urine Glucose (UA) Urine Ketones Urine Blood Urine Nitrite Ur Leukocyte Esterase Urine RBC Urine WBC Ur Squamous Epith Cells Urine Bacteria Hyaline Casts Assessment and Plan (1) Atrial fibrillation: Status: Acute Plan d2 68yo F with pAF on apixaban, HFrEF, CAD, HTN, PAD, KIM, CKD3, hypothyroidism presenting with dyspnea, palpitations, R flank pain, and dysuria admitted for sepsis due to UTI, AF/RVR, and SUSAN sepsis due to UTI - follow BCx/UCx ,continue ceftriaxone 07/22- - renal US to assess for pyelonephritis, stone, abscess, hydronephrosis AF/RVR - HR improved after given extra metoprolol in ED; will continue metoprolol succinate 25 mg daily and give extra 12.5mg this morning - continue amiodarone - conitnue apixaban SUSAN/CKD3 - improved after IV fluid hydration; Nephrology consult; recheck BMP in AM hypoK - replete; recheck level in AM Tn-I indeterminate - likely due to SUSAN + sepsis chronic HFrEF - holding furosemide due to SUSAN; continue metoprolol succinate; monitor volume status carefully CAD - clopidogrel, metoprolol succinate, atorvastatin COPD - home inhalers hypothyroidism - continue LT4 GERD - PPI mood disorder - paroxetine VTE ppx - apixaban dispo - TBD In my clinical judgment, the patient requires continued inpatient hospitalization for the following reasons: IV ABX, SUSAN Total time managing care of this patient today: 45 minutes. Quality Stroke Does the patient have a stroke diagnosis?: No VTE Prior VTE?: No VTE Risk Level:: Medical - moderate - high VTE Device Contraindication: Treatment Not Indicated VTE Drug Contraindication: N/A - Med Ordered
[2024-07-23 11:01] LABS: Total Protein Urine Random 27 mg/dL (<12)
[2024-07-23] MEDS: Metoprolol Succinate ER 12.5 MG HALFTAB.ER.24H PO (11:57)
[2024-07-23] MEDS: Acetaminophen 325 MG TABLET 650 MG PO ×2 (11:57→21:14)
--- NOTE | 2024-07-23 12:00 | PC.NURSE ---
patient wound dressing placed, wound cleaned with normal saline, silver alginate placed on wound, covered with fluff gauze and wrapped with kerlix wrap. patient tolerated well, odorous smell from wound
--- NOTE | 2024-07-23 12:21 | PM.CNNEP ---
History of Present Illness Reason for Consult Consult date: 07/23/24 Chief Complaint Chief complaint: UTI, sepsis, AFib w/ RVR History of Present Illness Narrative: Pt is a 68-year-old female with a PMH significant for?paroxysmal AFib on Eliquis, HFrEF, CAD/PR, HTN, peripheral artery disease, renal artery stenosis, CKD 3, and hypothyroidism who presents to the ED for evaluation of shortness of breath and elevated heart rate. Pt admitted to the hospital for treatment and further evaluation of acute UTI with sepsis and SUSAN in the setting of AFib with RVR. creatinine was 2.54 on admission (previous creatinine 1.47 on 05/27/24), has improved to 2.38 with fluids (pt getting gentle fluid rescuscitation due to heart failure). potassium 3.2, of note her potassium is chronically low on an intermittent basis. Urine with mild protein, large amounts of RBS/WBCs pt receiving IVF and broad spectrum abx for UTI/sepsis Today at bedside pt is alert and oriented/conversant she is complaining of right-sided flank pain that she states started when she came into the hosptial she states she used to see a is architect but has not seen one for many years she does see a urologist for urinary incontinence and frequent UTIs she endorses fatigue but denies chest pain, dyspnea, lower extremity swelling Review of Systems Constitutional: Denies anorexia, Reports fatigue, Denies fever(s) and Reports lethargy Cardiovascular: Denies no additional cardiovascular complaints, Denies chest pain and Denies dyspnea Respiratory: Reports no additional respiratory complaints and Denies dyspnea Gastrointestinal: Denies abdominal pain and Denies diarrhea Genitourinary: Denies hematuria and Reports flank pain (reports right sided flank pain) Comments: reports chronic urinary frequency/incontinence. Currently using a female external urinary catheter, states she is voiding without difficulty. Musculoskeletal: Reports no additional musculoskeletal complaints Skin/Breast: Denies rash Denies focal weakness and Denies tremor(s) Endocrine: Reports fatigue PMFSH Past Medical History Medical History Atrial fibrillation with rapid ventricular response Osteoarthritis of left hip Bilateral cataracts History of cardioversion Myocardial infarction Arthritis Hx of transfusion of packed red blood cells Thyroid disease GERD (gastroesophageal reflux disease) CKD (chronic kidney disease) On anticoagulant therapy History of smoking 30 or more pack years PAF (paroxysmal atrial fibrillation) Left renal artery stenosis Personal history of nicotine dependence Cardiomyopathy Essential hypertension Atherosclerotic cardiovascular disease Asymmetric blood pressures Acute on chronic systolic (congestive) heart failure CHF (congestive heart failure) CAD (coronary artery disease) Multiple sclerosis Pulmonary nodules COPD (chronic obstructive pulmonary disease) Peripheral arterial occlusive disease Family History Family History Father No problems noted. Mother No problems noted. Brother Diabetes Surgical History Surgical History History of endoscopy History of colonoscopy History of heart artery stent (~2018) Status post angioplasty with stent (~09/2018) S/P insertion of iliac artery stent (~02/2019) S/P cardiac cath (~12/2020) History of cholecystectomy (~02/2009) Social History Social History Household Members: None Housing: House Housing Other:: Sent in from [facility] [place] Are you a primary career development consultant to a significant other at home: No Do you presently have visiting nurse or other home services: No Alcohol intake: never Comment: aware of trip hazard Patient Tobacco Use Status: Former Tobacco user Tobacco use type: Cigarette e-Cigarette/Vaping Use: Never Used Second Hand Smoke Exposure: No Advance Directives: Yes Advance Directives on File: Yes Advance Directives Date on File: 12/27/20 Do you have a plan to hurt others: No Plan service: No Current occupational status: retired Cognitive needs: Yes (cane) Hearing needs: No Vision needs: Yes (reading glasses) Meds Allergies Allergy/AdvReac Type Severity Reaction Status Date / Time codeine [Codeine] AdvReac Mild vomiting Verified 07/22/24 13:41 Active Medications: Current Medications Acetaminophen (Acetaminophen 325 Mg Tablet) 650 mg PO Q6H PRN PRN Reason: Pain, Mild (Pain Scale 1-3), fever or headache Last Admin: 07/23/24 11:57 Dose: 650 mg Amiodarone HCl (Amiodarone Hcl 200 Mg Tablet) 200 mg PO DAILY [facility] Last Admin: 07/23/24 08:07 Dose: 200 mg Apixaban (Apixaban 5 Mg Tablet) 5 mg PO BID [facility] Last Admin: 07/23/24 08:07 Dose: 5 mg Atorvastatin Calcium (Atorvastatin Calcium 80 Mg Tablet) 80 mg PO BEDTIME [facility] Last Admin: 07/22/24 23:31 Dose: 80 mg Benzonatate (Benzonatate 100 Mg Capsule) 100 mg PO TID PRN PRN Reason: Cough Calcium Carbonate (Calcium Carbonate 750 Mg Tab.Chew) 750 mg PO Q4H PRN PRN Reason: Heartburn Clopidogrel Bisulfate (Clopidogrel Bisulfate 75 Mg Tablet) 75 mg PO DAILY [facility] Last Admin: 07/23/24 08:07 Dose: 75 mg Cyanocobalamin (Cyanocobalamin (Vitamin B-12) 1,000 Mcg Tablet) 1,000 mcg PO DAILY [facility] Last Admin: 07/23/24 08:07 Dose: 1,000 mcg Docusate Sodium (Docusate Sodium 100 Mg Capsule) 100 mg PO BID [facility] Last Admin: 07/23/24 08:17 Dose: Not Given Sodium Chloride (Ns) 1,000 mls @ 50 mls/hr IVCONT .Q20H [facility] Last Admin: 07/22/24 19:54 Dose: Not Given Ceftriaxone Sodium 1 gm/ (Sodium Chloride) 50 mls @ 100 mls/hr IV Q24H [facility] Levothyroxine Sodium (Levothyroxine Sodium 50 Mcg Tablet) 50 mcg PO DAILY@0630 [facility] Last Admin: 07/23/24 06:35 Dose: 50 mcg Magnesium Hydroxide (Milk Of Magnesia 30 Ml Oral.Susp) 30 ml PO DAILY PRN PRN Reason: Constipation Melatonin (Melatonin 3 Mg Tablet) 6 mg PO BEDTIME PRN PRN Reason: Insomnia Last Admin: 07/22/24 23:32 Dose: 6 mg Metoprolol Succinate (Metoprolol Succinate Er 25 Mg Tab.Er.24h) 25 mg PO DAILY [facility]; Protocol Last Admin: 07/23/24 08:07 Dose: 25 mg Omeprazole (Omeprazole 40 Mg Capsule.Dr) 40 mg PO DAILY@0630 [facility] Last Admin: 07/23/24 08:07 Dose: 40 mg Ondansetron HCl (Ondansetron Hcl 4 Mg/2 Ml Vial) 4 mg IVPUSH Q8H PRN PRN Reason: Nausea and Vomiting Last Admin: 07/23/24 01:54 Dose: 4 mg Paroxetine HCl (Paroxetine Hcl 40 Mg Tablet) 40 mg PO BEDTIME [facility] Last Admin: 07/22/24 23:31 Dose: 40 mg Sodium Chloride (0.9 % Sodium Chloride Flush 3 Ml Syringe) 3 ml IVFLUSH QSHIFT [facility] Last Admin: 07/23/24 08:23 Dose: Not Given Vitamin D (Cholecalciferol (Vitamin D3) 25 Mcg Tablet) 25 mcg PO DAILY [facility] Last Admin: 07/23/24 08:07 Dose: 25 mcg Home Medications ?Medication ?Instructions ?Recorded ?Confirmed ?Last Taken ?Type paroxetine HCl 40 mg tablet 40 mg PO BEDTIME 10/03/20 07/22/24 07/21/24 History cholecalciferol (vitamin D3) 25 25 mcg PO DAILY 12/20/20 07/22/24 07/22/24 History mcg (1,000 unit) tablet (Vitamin D3) cyanocobalamin (vitamin B-12) 1,000 mcg PO DAILY 12/20/20 07/22/24 07/22/24 History 1,000 mcg tablet (Vitamin B-12) melatonin 10 mg tablet 10 mg PO BEDTIME Insomnia 01/13/23 07/22/24 07/21/24 History levothyroxine 50 mcg tablet 50 mcg PO DAILY@0600 09/02/23 07/22/24 07/22/24 History (Synthroid) metoprolol succinate 25 mg 25 mg PO DAILY 12/25/23 07/22/24 07/22/24 History tablet,extended release 24 hr pantoprazole 40 mg tablet,delayed 40 mg PO DAILY@0630 03/15/24 07/22/24 07/22/24 History release acetaminophen 500 mg tablet 1,000 mg PO DAILY PRN Pain 04/21/24 07/22/24 Unknown History amiodarone 200 mg tablet 200 mg PO DAILY 04/21/24 07/22/24 07/22/24 History docusate sodium 100 mg capsule 100 mg PO BID 04/21/24 07/22/24 07/22/24 History (Colace) Physical Exam Vital Signs: Last Vital Signs Temp 98.6 F 07/23/24 11:55 Pulse 109 H 07/23/24 11:55 Resp 18 07/23/24 11:55 BP 110/68 07/23/24 11:55 Pulse Ox 98 07/23/24 11:55 O2 Del Method Room Air 07/23/24 11:55 BMI result Body Mass Index 22.4 Const General: comfortable and no acute distress Orientation/consciousness: oriented to person, oriented to place and oriented to time Neck Neck: Yes no JVD Resp Effort & Inspection: able to speak in complete sentences Auscultation: clear to auscultation bilaterally Cardio Jugular venous distension: no JVD Rate: regular rate Rhythm: regular rhythm Heart sounds: S1 normal heart sound present and S2 normal heart sound present GI Palpation (GI): Soft to palpation Rectal Exam - Female: No tenderness General: Yes CVA tenderness on the right Back/Spine/Pelvis Back: CVA tenderness Skin Rashes: no rashes Neuro General: oriented to person, oriented to place and oriented to time Extrem General: Yes normal to inspection, No edema and No pedal edema Results Lab Results 07/23/24 04:56 07/23/24 04:56 Lab results: Chemistry 07/22/24 07/23/24 13:51 04:56 Sodium 138 141 Potassium 3.2 L 3.2 L Carbon Dioxide 23 25 BUN 38 H 38 H Creatinine 2.54 H 2.38 H Calcium 9.7 9.3 Hematology 07/22/24 07/23/24 13:51 04:56 WBC 13.9 H 11.9 H Hgb 10.8 L D 9.9 L Plt Count 280 285 Urinalysis 07/22/24 15:38 Urine Color Yellow Urine Appearance Turbid Urine pH 5.5 Ur Specific [place] 1.010 Urine Protein 30 (1+) H Urine Glucose (UA) Negative Urine Ketones Negative Urine Blood Large (3+) H Urine Nitrite Negative Ur Leukocyte Esterase Large (3+) H Urine RBC 3-5 H Urine WBC >50 H Ur Squamous Epith Cells 0-2 Hyaline Casts 0-2 Urine Studies 07/23/24 10:39 Urine Creatinine 48.90 Assessment and Plan (1) Acute kidney injury superimposed on CKD: Status: Acute (2) Hypokalemia: Status: Acute (3) UTI (urinary tract infection): Status: Resolved (4) Sepsis: Status: Resolved Plan pt with SUSAN on CKD3 likely secondary to UTI and renal hypoperfusion (afib, hypovolemia, hypotension). pt also has chronic hypokalemia, likely secondary to loop diuretic use without potassium supplementation. recommend to hold diuretics for now, slow/gentle hydration (50-70mL/hr) will get urine sodium, creatinine and protein continue to treat infection follow serum creatinine closely if not improving with hydration, will be prudent to order serologies to check for glomerulonephritis monitor I&O, blood pressure follow electrolytes, renal function studies Discussed wtih Dr Hoover Procedures Date of Service Date of Service: 07/23/24
--- NOTE | 2024-07-23 14:19 | MHC.CM.PN ---
IMM 07/23/24, Pt. lives alone, she does not have home care services, for DME, she has walker, w/c. She has used [facility] in the past, and was at [facility] for STR this past March and April. HCP is on file and confirmed: Aliya PCP confirmed: Amina Whitfield. Pt can arrange transport home at DC. DCP: home with services. CM to follow and assist with DC plan.
--- NOTE | 2024-07-23 16:03 | MHC.EDTECH ---
This pct assumed care of Patient at 1500 ,vitals taken ,Patient was incontinent of urine ,Care given Patient was reposition and boosted up in bed ,Call smith within Pt reach .
[2024-07-23] MEDS: cefTRIAXone sodium 1 GM in 0.9 % Sodium Chloride 50 ML IV (17:40)
[2024-07-23] MEDS: Atorvastatin Calcium 80 MG TABLET PO (21:15)
[2024-07-23] MEDS: Docusate Sodium 100 MG CAPSULE PO (21:15)
[2024-07-23] MEDS: PARoxetine HCL 40 MG TABLET PO (21:15)
[2024-07-23] MEDS: 0.9 % Sodium Chloride Flush 3 ML SYRINGE IVFLUSH (21:15)
[2024-07-24] VITALS (7 sets, daily range): BP systolic 105–133; BP diastolic 56–89; PULSE 78–102; RESP 16–22; TEMP 36.2–37.4; O2SAT 93–100
[2024-07-24] MEDS: Acetaminophen 325 MG TABLET 650 MG PO (05:33)
[2024-07-24] MEDS: Levothyroxine Sodium 50 MCG TABLET PO (05:33)
[2024-07-24] MEDS: Omeprazole 40 MG CAPSULE.DR PO (06:38)
[2024-07-24 07:53] LABS: Hematocrit 30.3 % (37.0-47.0); Hemoglobin 9.5 g/dl (12.0-16.0); Mean Corpuscular HGB Conc 31.4 g/dl (31.0-35.0); Mean Corpuscular Hemoglobin 24.7 pg (27.0-33.0); Mean Corpuscular Volume 78.9 fL (80.0-98.0); Mean Platelet Volume 9.9 fL (9.4-12.3); Platelet Count 291 X10*3/uL (160-400); Red Blood Count 3.84 X10*6/uL (4.20-5.50); Red Cell Distribution Width 15.6 % (11.0-16.0); White Blood Count 8.4 X10*3/uL (4.8-10.8)
[2024-07-24 08:01] LABS: Anion Gap 13 (12-20); Blood Urea Nitrogen 34 mg/dL (9-16); Calcium 9.1 mg/dL (8.4-10.2); Carbon Dioxide 25 mmol/L (22-29); Chloride 105 mmol/L (96-108); Creatinine Clr Calc Pharmacy 22.5; Estimated Glomerular Filt Rate 22; Glucose Random 100 mg/dL (60-115); Potassium 3.1 mmol/L (3.3-5.1); Sodium 140 mmol/L (135-145)
[2024-07-24 08:09] LABS: B Type Natriuretic Peptide 866 pg/mL (<100)
--- NOTE | 2024-07-24 09:08 | P.PNGS_ITS ---
Subjective Subjective Date of Service: 07/24/24 Interval history: Reports the left foot feels improved today and denies any new foot symptoms. Physical Exam 2 Vital Signs: Vital Signs: Last Vital Signs Temp 97.7 F 07/24/24 07:34 Pulse 100 07/24/24 07:34 Resp 16 07/24/24 07:34 BP 128/73 07/24/24 07:34 Pulse Ox 95 07/24/24 07:34 O2 Del Method Room Air 07/24/24 07:34 BMI result Body Mass Index 22.4 Const: General: no acute distress Resp: Effort & Inspection: normal respiratory effort Extrem: Other: Dressings changed to left foot. No erythema appreciated. Wounds covered with silver alginate by dry sterile dressings. Objective Data Active Medications Acetaminophen (Acetaminophen 325 Mg Tablet) 650 mg PO Q6H PRN PRN Reason: Pain, Mild (Pain Scale 1-3), fever or headache Last Admin: 07/24/24 05:33 Dose: 650 mg Documented By: ANGELINA Amiodarone HCl (Amiodarone Hcl 200 Mg Tablet) 200 mg PO DAILY [facility] Last Admin: 07/23/24 08:07 Dose: 200 mg Documented By: CAROLINE Apixaban (Apixaban 5 Mg Tablet) 5 mg PO BID [facility] Last Admin: 07/23/24 21:15 Dose: 5 mg Documented By: ANGELINA Atorvastatin Calcium (Atorvastatin Calcium 80 Mg Tablet) 80 mg PO BEDTIME [facility] Last Admin: 07/23/24 21:15 Dose: 80 mg Documented By: ANGELINA Benzonatate (Benzonatate 100 Mg Capsule) 100 mg PO TID PRN PRN Reason: Cough Calcium Carbonate (Calcium Carbonate 750 Mg Tab.Chew) 750 mg PO Q4H PRN PRN Reason: Heartburn Clopidogrel Bisulfate (Clopidogrel Bisulfate 75 Mg Tablet) 75 mg PO DAILY [facility] Last Admin: 07/23/24 08:07 Dose: 75 mg Documented By: CAROLINE Cyanocobalamin (Cyanocobalamin (Vitamin B-12) 1,000 Mcg Tablet) 1,000 mcg PO DAILY [facility] Last Admin: 07/23/24 08:07 Dose: 1,000 mcg Documented By: CAROLINE Docusate Sodium (Docusate Sodium 100 Mg Capsule) 100 mg PO BID [facility] Last Admin: 07/23/24 21:15 Dose: 100 mg Documented By: ANGELINA Ceftriaxone Sodium 1 gm/ (Sodium Chloride) 50 mls @ 100 mls/hr IV Q24H [facility] Last Admin: 07/23/24 17:40 Dose: 100 mls/hr Documented By: GODWIN Levothyroxine Sodium (Levothyroxine Sodium 50 Mcg Tablet) 50 mcg PO DAILY@0630 [facility] Last Admin: 07/24/24 05:33 Dose: 50 mcg Documented By: ANGELINA Magnesium Hydroxide (Milk Of Magnesia 30 Ml Oral.Susp) 30 ml PO DAILY PRN PRN Reason: Constipation Melatonin (Melatonin 3 Mg Tablet) 6 mg PO BEDTIME PRN PRN Reason: Insomnia Last Admin: 07/22/24 23:32 Dose: 6 mg Documented By: JOSE LUIS Metoprolol Succinate (Metoprolol Succinate Er 12.5 Mg Halftab.Er.24h) 37.5 mg PO DAILY [facility]; Protocol Omeprazole (Omeprazole 40 Mg Capsule.Dr) 40 mg PO DAILY@629 [facility] Last Admin: 07/24/24 06:38 Dose: 40 mg Documented By: ANGELINA Ondansetron HCl (Ondansetron Hcl 4 Mg/2 Ml Vial) 4 mg IVPUSH Q8H PRN PRN Reason: Nausea and Vomiting Last Admin: 07/23/24 01:54 Dose: 4 mg Documented By: JOSE LUIS Paroxetine HCl (Paroxetine Hcl 40 Mg Tablet) 40 mg PO BEDTIME [facility] Last Admin: 07/23/24 21:15 Dose: 40 mg Documented By: ANGELINA Potassium Chloride (Potassium Chloride Er 20 Meq Tab.Er.Prt) 40 meq PO ONCE ONE Stop: 07/24/24 09:07 Sodium Chloride (0.9 % Sodium Chloride Flush 3 Ml Syringe) 3 ml IVFLUSH QSHIFT [facility] Last Admin: 07/23/24 21:15 Dose: 3 ml Documented By: ANGELINA Vitamin D (Cholecalciferol (Vitamin D3) 25 Mcg Tablet) 25 mcg PO DAILY [facility] Last Admin: 07/23/24 08:07 Dose: 25 mcg Documented By: KATYC Labs 07/24/24 07:02 07/24/24 07:02 Labs: Laboratory Results - last 24 hr 07/23/24 07/23/24 07/24/24 09:15 10:39 07:02 MCV 78.9 L MCH 24.7 L MCHC 31.4 RDW 15.6 Plt Count 291 MPV 9.9 Absolute Nucleated RBC 0.000 Nucleated RBC % (auto) 0.0 Anion Gap 13 Estim Creat Clear Calc 22.5 Estimated GFR 22 Random Glucose 100 Calcium 9.1 Magnesium 2.0 Troponin I High Sens 18.0 H B-Natriuretic Peptide 866 H U Random Total Protein 27 H Ur Random Sodium 29.0 Urine Creatinine 48.90 Microbiology Microbiology Results: Microbiology 07/22/24 Unknown Urine Culture - Final Urine clean catch - Clean Catch Midstream Citrobacter freundii 07/22/24 15:13 Blood Culture - Preliminary Blood - Venous No growth after 24 hours. 07/22/24 14:56 Blood Culture - Preliminary Blood - Venous No growth after 24 hours. Procedures Date of Service Date of Service: 07/24/24 Progress Note: A&P Assessment and plan (1) Hematoma: Status: Acute Plan 68-year-old female patient who developed a hematoma on the left foot after dropping a shampoo bottle. Eschar was removed yesterday and a small residual ulcer noted. She will continue with the silver alginate dressing daily. Recommend wound care consult for outpatient follow-up. Time Spent With Patient Time: Total time managing care of this patient today ____ minutes. Quality Stroke Does the patient have a stroke diagnosis?: No VTE Prior VTE?: No VTE Risk Level:: Medical - moderate - high VTE Device Contraindication: Treatment Not Indicated VTE Drug Contraindication: N/A - Med Ordered
[2024-07-24] MEDS: Clopidogrel Bisulfate 75 MG TABLET PO (09:17)
[2024-07-24] MEDS: Cholecalciferol (Vitamin D3) 25 MCG TABLET PO (09:17)
[2024-07-24] MEDS: Amiodarone HCL 200 MG TABLET PO (09:17)
[2024-07-24] MEDS: Apixaban 5 MG TABLET PO ×2 (09:17→21:14)
[2024-07-24] MEDS: Docusate Sodium 100 MG CAPSULE PO ×2 (09:18→21:15)
[2024-07-24] MEDS: Cyanocobalamin (Vitamin B-12) 1,000 MCG TABLET 1000 MCG PO (09:18)
[2024-07-24] MEDS: Potassium Chloride ER 20 MEQ TAB.ER.PRT 40 MEQ PO (09:18)
[2024-07-24] MEDS: Metoprolol Succinate ER 12.5 MG HALFTAB.ER.24H 37.5 MG PO (09:18)
[2024-07-24] MEDS: 0.9 % Sodium Chloride Flush 3 ML SYRINGE IVFLUSH ×2 (09:22→16:28)
--- NOTE | 2024-07-24 10:07 | P.PNIM_ITS ---
Subjective Subjective Date of Service: 07/24/24 Interval History: R flank pain improving SCr improving in AF in 90s Review of Systems Review of Systems: Yes all other systems are reviewed and are negative Physical Exam 2 Vital Signs: Vital Signs: Last Vital Signs Temp 97.7 F 07/24/24 07:34 Pulse 91 07/24/24 09:18 Resp 16 07/24/24 07:34 BP 128/77 07/24/24 09:18 Pulse Ox 95 07/24/24 07:34 O2 Del Method Room Air 07/24/24 07:34 BMI result Body Mass Index 22.4 Gen: in no acute distress HEENT: sclera anicteric, moist mucus membranes Neck: supple Lungs: clear to auscultation bilaterally Heart: irregular, systolic murmur at apex Abd: soft, non-tender, non-distended : R CVA tenderness Ext: no edema Skin: warm/well-perfused, debrided 1.5 cm wound on dorsum of L foot Neuro: alert and oriented x3, no focal findings Psych: appropriate affect\ Objective Data Active Medications Acetaminophen (Acetaminophen 325 Mg Tablet) 650 mg PO Q6H PRN PRN Reason: Pain, Mild (Pain Scale 1-3), fever or headache Last Admin: 07/24/24 05:33 Dose: 650 mg Documented By: ANGELINA Amiodarone HCl (Amiodarone Hcl 200 Mg Tablet) 200 mg PO DAILY [facility] Last Admin: 07/24/24 09:17 Dose: 200 mg Documented By: ALESSANDROMOKYA Apixaban (Apixaban 5 Mg Tablet) 5 mg PO BID [facility] Last Admin: 07/24/24 09:17 Dose: 5 mg Documented By: ALESSANDROMOKYA Atorvastatin Calcium (Atorvastatin Calcium 80 Mg Tablet) 80 mg PO BEDTIME [facility] Last Admin: 07/23/24 21:15 Dose: 80 mg Documented By: ANGELINA Benzonatate (Benzonatate 100 Mg Capsule) 100 mg PO TID PRN PRN Reason: Cough Calcium Carbonate (Calcium Carbonate 750 Mg Tab.Chew) 750 mg PO Q4H PRN PRN Reason: Heartburn Clopidogrel Bisulfate (Clopidogrel Bisulfate 75 Mg Tablet) 75 mg PO DAILY [facility] Last Admin: 07/24/24 09:17 Dose: 75 mg Documented By: SHAHRAM Cyanocobalamin (Cyanocobalamin (Vitamin B-12) 1,000 Mcg Tablet) 1,000 mcg PO DAILY [facility] Last Admin: 07/24/24 09:18 Dose: 1,000 mcg Documented By: ALESSANDROMOKYA Docusate Sodium (Docusate Sodium 100 Mg Capsule) 100 mg PO BID [facility] Last Admin: 07/24/24 09:18 Dose: 100 mg Documented By: ALESSANDROMORP Ceftriaxone Sodium 1 gm/ (Sodium Chloride) 50 mls @ 100 mls/hr IV Q24H [facility] Last Admin: 07/23/24 17:40 Dose: 100 mls/hr Documented By: SOFFAKole Levothyroxine Sodium (Levothyroxine Sodium 50 Mcg Tablet) 50 mcg PO DAILY@629 [facility] Last Admin: 07/24/24 05:33 Dose: 50 mcg Documented By: ANGELINA Magnesium Hydroxide (Milk Of Magnesia 30 Ml Oral.Susp) 30 ml PO DAILY PRN PRN Reason: Constipation Melatonin (Melatonin 3 Mg Tablet) 6 mg PO BEDTIME PRN PRN Reason: Insomnia Last Admin: 07/22/24 23:32 Dose: 6 mg Documented By: JOSE LUIS Metoprolol Succinate (Metoprolol Succinate Er 12.5 Mg Halftab.Er.24h) 37.5 mg PO DAILY [facility]; Protocol Last Admin: 07/24/24 09:18 Dose: 37.5 mg Documented By: SHAHRAM Omeprazole (Omeprazole 40 Mg Capsule.Dr) 40 mg PO DAILY@629 [facility] Last Admin: 07/24/24 06:38 Dose: 40 mg Documented By: ANGELINA Ondansetron HCl (Ondansetron Hcl 4 Mg/2 Ml Vial) 4 mg IVPUSH Q8H PRN PRN Reason: Nausea and Vomiting Last Admin: 07/23/24 01:54 Dose: 4 mg Documented By: JOSE LUIS Paroxetine HCl (Paroxetine Hcl 40 Mg Tablet) 40 mg PO BEDTIME [facility] Last Admin: 07/23/24 21:15 Dose: 40 mg Documented By: ANGELINA Sodium Chloride (0.9 % Sodium Chloride Flush 3 Ml Syringe) 3 ml IVFLUSH QSHIFT [facility] Last Admin: 07/24/24 09:22 Dose: 3 ml Documented By: SHAHRAM Vitamin D (Cholecalciferol (Vitamin D3) 25 Mcg Tablet) 25 mcg PO DAILY [facility] Last Admin: 07/24/24 09:17 Dose: 25 mcg Documented By: PODMORP Labs 07/24/24 07:02 07/24/24 07:02 Labs: Laboratory Results - last 24 hr 07/23/24 07/24/24 10:39 07:02 MCV 78.9 L MCH 24.7 L MCHC 31.4 RDW 15.6 Plt Count 291 MPV 9.9 Absolute Nucleated RBC 0.000 Nucleated RBC % (auto) 0.0 Anion Gap 13 Estim Creat Clear Calc 22.5 Estimated GFR 22 Random Glucose 100 Calcium 9.1 Magnesium 2.0 B-Natriuretic Peptide 866 H U Random Total Protein 27 H Ur Random Sodium 29.0 Urine Creatinine 48.90 Impressions Renal Ultrasound 07/23/24 10:56 IMPRESSION: Normal right kidney exam. . Electronically signed by: Santos Webber MD 07/23/2024 07:41 PM EDT RP Microbiology Microbiology Results: Microbiology 07/22/24 Unknown Urine Culture - Final Urine clean catch - Clean Catch Midstream Citrobacter freundii 07/22/24 15:13 Blood Culture - Preliminary Blood - Venous No growth after 24 hours. 07/22/24 14:56 Blood Culture - Preliminary Blood - Venous No growth after 24 hours. Assessment and Plan (1) Atrial fibrillation: Status: Acute Plan d3 68yo F with pAF on apixaban, HFrEF, CAD, HTN, PAD, KIM, CKD3, hypothyroidism presenting with dyspnea, palpitations, R flank pain, and dysuria admitted for sepsis due to UTI, AF/RVR, and SUSAN sepsis due to Citrobacter freundii UTI - no growth from BCx yet; continue ceftriaxone 07/22-, likely switch to cefdinir upon discharge - normal renal US AF/RVR - HR improved on higher dose of metoprolol succinate 25 -> 37.5 mg daily - continue amiodarone - conitnue apixaban SUSAN/CKD3 - improving after IV fluid hydration + holding furosemide; Nephrology following; repeat BMP in AM hypoK - replete PO; recheck level in AM Tn-I indeterminate, flat - likely due to SUSAN + sepsis chronic HFrEF - held furosemide due to SUSNA; continue metoprolol succinate; monitor volume status carefully CAD - clopidogrel, metoprolol succinate, atorvastatin COPD - home inhalers hypothyroidism - continue LT4 GERD - PPI mood disorder - paroxetine VTE ppx - apixaban dispo - PT consult In my clinical judgment, the patient requires continued inpatient hospitalization for the following reasons: IV ABX, SUSAN, dispo planning Total time managing care of this patient today: 35 minutes. Quality Stroke Does the patient have a stroke diagnosis?: No VTE Prior VTE?: No VTE Risk Level:: Medical - moderate - high VTE Device Contraindication: Treatment Not Indicated VTE Drug Contraindication: N/A - Med Ordered
[2024-07-24] MEDS: ondansetron HCL 4 MG/2 ML VIAL IVPUSH ×2 (14:29→21:14)
[2024-07-24] MEDS: cefTRIAXone sodium 1 GM in 0.9 % Sodium Chloride 50 ML IV (16:28)
[2024-07-24] MEDS: PARoxetine HCL 40 MG TABLET PO (21:14)
[2024-07-24] MEDS: Atorvastatin Calcium 80 MG TABLET PO (21:14)
[2024-07-25] VITALS (9 sets, daily range): BP systolic 109–141; BP diastolic 69–87; PULSE 61–95; RESP 16–20; TEMP 36.2–36.8; O2SAT 97–98
[2024-07-25] MEDS: 0.9 % Sodium Chloride Flush 3 ML SYRINGE IVFLUSH ×3 (00:23→21:30)
[2024-07-25] MEDS: Levothyroxine Sodium 50 MCG TABLET PO (06:13)
[2024-07-25 06:59] LABS: Hematocrit 32.4 % (37.0-47.0); Hemoglobin 9.9 g/dl (12.0-16.0); Mean Corpuscular HGB Conc 30.6 g/dl (31.0-35.0); Mean Corpuscular Hemoglobin 24.5 pg (27.0-33.0); Mean Corpuscular Volume 80.2 fL (80.0-98.0); Mean Platelet Volume 9.7 fL (9.4-12.3); Platelet Count 313 X10*3/uL (160-400); Red Blood Count 4.04 X10*6/uL (4.20-5.50); Red Cell Distribution Width 15.4 % (11.0-16.0); White Blood Count 9.2 X10*3/uL (4.8-10.8)
[2024-07-25 07:26] LABS: Blood Urea Nitrogen 34 mg/dL (9-16); Calcium 9.2 mg/dL (8.4-10.2); Creatinine Clr Calc Pharmacy 20.9; Estimated Glomerular Filt Rate 21; Glucose Random 96 mg/dL (60-115)
[2024-07-25 07:48] LABS: Anion Gap 14 (12-20); Carbon Dioxide 22 mmol/L (22-29); Chloride 109 mmol/L (96-108); Sodium 141 mmol/L (135-145)
[2024-07-25 08:24] LABS: Iron 23 mcg/dL (30-160); Percent Iron Saturation 12 % (15-50); Total Iron Binding Capacity 185 mcg/dL (228-428); Unsaturated Iron Binding 162 ug/dL
[2024-07-25 08:46] LABS: Ferritin 128 ng/mL (10-250)
[2024-07-25] MEDS: Omeprazole 40 MG CAPSULE.DR PO (09:21)
[2024-07-25] MEDS: Metoprolol Succinate ER 12.5 MG HALFTAB.ER.24H 37.5 MG PO (09:22)
[2024-07-25] MEDS: Docusate Sodium 100 MG CAPSULE PO ×2 (09:22→21:30)
[2024-07-25] MEDS: Clopidogrel Bisulfate 75 MG TABLET PO (09:22)
[2024-07-25] MEDS: Amiodarone HCL 200 MG TABLET PO (09:22)
[2024-07-25] MEDS: 0.9 % Sodium Chloride 1,000 ML 50 ML IVCONT (09:22)
[2024-07-25] MEDS: Apixaban 5 MG TABLET PO ×2 (09:22→21:30)
[2024-07-25] MEDS: Cholecalciferol (Vitamin D3) 25 MCG TABLET PO (09:22)
[2024-07-25] MEDS: Cyanocobalamin (Vitamin B-12) 1,000 MCG TABLET 1000 MCG PO (09:22)
[2024-07-25] MEDS: Acetaminophen 325 MG TABLET 650 MG PO ×2 (09:29→21:34)
[2024-07-25] MEDS: 0.9 % Sodium Chloride 500 ML 50 ML IVCONT (09:30)
--- NOTE | 2024-07-25 11:11 | HO.PM.IMPN ---
Subjective Subjective Date of Service: 07/25/24 Interval History: SCr slightly worse; HR improved R flank pain still present Review of Systems Review of Systems: Yes all other systems are reviewed and are negative Physical Exam Vital Signs: Vital Signs: Last Vital Signs Temp 97.8 F 07/25/24 08:00 Pulse 90 07/25/24 08:00 Resp 19 07/25/24 08:00 BP 135/79 07/25/24 08:00 Pulse Ox 97 07/25/24 08:00 O2 Del Method Room Air 07/25/24 08:00 BMI result Body Mass Index 22.4 Gen: in no acute distress HEENT: sclera anicteric, moist mucus membranes Neck: supple Lungs: clear to auscultation bilaterally Heart: irregular, systolic murmur at apex Abd: soft, non-tender, non-distended : R CVA tenderness Ext: no edema Skin: warm/well-perfused, debrided 1.5 cm wound on dorsum of L foot Neuro: alert and oriented x3, no focal findings Psych: appropriate affect Objective Data Active Medications Acetaminophen (Acetaminophen 325 Mg Tablet) 650 mg PO Q6H PRN PRN Reason: Pain, Mild (Pain Scale 1-3), fever or headache Last Admin: 07/25/24 09:29 Dose: 650 mg Documented By: KRISHNA Amiodarone HCl (Amiodarone Hcl 200 Mg Tablet) 200 mg PO DAILY [facility] Last Admin: 07/25/24 09:22 Dose: 200 mg Documented By: KRISHNA Apixaban (Apixaban 5 Mg Tablet) 5 mg PO BID [facility] Last Admin: 07/25/24 09:22 Dose: 5 mg Documented By: KRISHNA Atorvastatin Calcium (Atorvastatin Calcium 80 Mg Tablet) 80 mg PO BEDTIME [facility] Last Admin: 07/24/24 21:14 Dose: 80 mg Documented By: MARYPSM Benzonatate (Benzonatate 100 Mg Capsule) 100 mg PO TID PRN PRN Reason: Cough Calcium Carbonate (Calcium Carbonate 750 Mg Tab.Chew) 750 mg PO Q4H PRN PRN Reason: Heartburn Clopidogrel Bisulfate (Clopidogrel Bisulfate 75 Mg Tablet) 75 mg PO DAILY [facility] Last Admin: 07/25/24 09:22 Dose: 75 mg Documented By: KRISHNA Cyanocobalamin (Cyanocobalamin (Vitamin B-12) 1,000 Mcg Tablet) 1,000 mcg PO DAILY [facility] Last Admin: 07/25/24 09:22 Dose: 1,000 mcg Documented By: KRISHNA Docusate Sodium (Docusate Sodium 100 Mg Capsule) 100 mg PO BID [facility] Last Admin: 07/25/24 09:22 Dose: 100 mg Documented By: KRISHNA Ceftriaxone Sodium 1 gm/ (Sodium Chloride) 50 mls @ 100 mls/hr IV Q24H [facility] Last Infusion: 07/24/24 16:58 Dose: Infused Documented By: SHILPA Sodium Chloride (Ns) 1,000 mls @ 50 mls/hr IVCONT .Q20H [facility] Last Admin: 07/25/24 09:22 Dose: 50 mls/hr Documented By: KRISHNA Levothyroxine Sodium (Levothyroxine Sodium 50 Mcg Tablet) 50 mcg PO DAILY@30 [facility] Last Admin: 07/25/24 06:13 Dose: 50 mcg Documented By: AGNIESZKA Magnesium Hydroxide (Milk Of Magnesia 30 Ml Oral.Susp) 30 ml PO DAILY PRN PRN Reason: Constipation Melatonin (Melatonin 3 Mg Tablet) 6 mg PO BEDTIME PRN PRN Reason: Insomnia Last Admin: 07/22/24 23:32 Dose: 6 mg Documented By: JOSE LUIS Metoprolol Succinate (Metoprolol Succinate Er 12.5 Mg Halftab.Er.24h) 37.5 mg PO DAILY [facility]; Protocol Last Admin: 07/25/24 09:22 Dose: 37.5 mg Documented By: KRISHNA Omeprazole (Omeprazole 40 Mg Capsule.) 40 mg PO DAILY@30 [facility] Last Admin: 07/25/24 09:21 Dose: 40 mg Documented By: KRISHNA Ondansetron HCl (Ondansetron Hcl 4 Mg/2 Ml Vial) 4 mg IVPUSH Q8H PRN PRN Reason: Nausea and Vomiting Last Admin: 07/24/24 21:14 Dose: 4 mg Documented By: SHILPA Paroxetine HCl (Paroxetine Hcl 40 Mg Tablet) 40 mg PO BEDTIME [facility] Last Admin: 07/24/24 21:14 Dose: 40 mg Documented By: SHILPA Sodium Chloride (0.9 % Sodium Chloride Flush 3 Ml Syringe) 3 ml IVFLUSH QSHIFT [facility] Last Admin: 07/25/24 09:22 Dose: 3 ml Documented By: KRISHNA Vitamin D (Cholecalciferol (Vitamin D3) 25 Mcg Tablet) 25 mcg PO DAILY [facility] Last Admin: 07/25/24 09:22 Dose: 25 mcg Documented By: KRISHNA Labs 07/25/24 06:34 07/25/24 06:33 Labs: Laboratory Results - last 24 hr 07/25/24 07/25/24 06:33 06:34 MCV 80.2 MCH 24.5 L MCHC 30.6 L RDW 15.4 Plt Count 313 MPV 9.7 Absolute Nucleated RBC 0.000 Nucleated RBC % (auto) 0.0 Anion Gap 14 Estim Creat Clear Calc 20.9 Estimated GFR 21 Random Glucose 96 Calcium 9.2 Magnesium 2.0 Iron 23 L TIBC 185 L % Saturation 12 L Unsat Iron Binding 162 Ferritin 128 Microbiology Microbiology Results: Microbiology 07/22/24 15:13 Blood Culture - Preliminary Blood - Venous No growth after 48 hours. 07/22/24 14:56 Blood Culture - Preliminary Blood - Venous No growth after 48 hours. 07/22/24 Unknown Urine Culture - Final Urine clean catch - Clean Catch Midstream Citrobacter freundii Assessment and Plan (1) Atrial fibrillation: Status: Acute Plan d4 68yo F with pAF on apixaban, HFrEF, CAD, HTN, PAD, KIM, CKD3, hypothyroidism presenting with dyspnea, palpitations, R flank pain, and dysuria admitted for sepsis due to UTI, AF/RVR, and SUSAN sepsis due to Citrobacter freundii UTI - no growth from BCx; C. freundii resistant only to cefazolin; continue ceftriaxone 07/22-, likely switch to cefdinir upon discharge - normal renal US AF/RVR - HR improved on higher dose of metoprolol succinate 25 increased to 37.5 mg daily - continue amiodarone - conitnue apixaban SUSAN/CKD3 - continue IV fluid hydration [gently, only 500 mL given CHF]; continue to hold furosemide; Nephrology following; repeat BMP in AM hypoK - repleted Tn-I indeterminate, flat - likely due to SUSAN + sepsis chronic HFrEF - held furosemide due to SUSAN; continue metoprolol succinate; monitor volume status carefully; check BNP in AM CAD - clopidogrel, metoprolol succinate, atorvastatin COPD - home inhalers hypothyroidism - continue LT4 GERD - PPI mood disorder - paroxetine VTE ppx - apixaban dispo - PT consulted, STR recommended but will re-evaluate tomorrow In my clinical judgment, the patient requires continued inpatient hospitalization for the following reasons: SUSAN, dispo planning Total time managing care of this patient today: 35 minutes. Quality Stroke Does the patient have a stroke diagnosis?: No VTE Prior VTE?: No VTE Risk Level:: Medical - moderate - high VTE Device Contraindication: Treatment Not Indicated VTE Drug Contraindication: N/A - Med Ordered
[2024-07-25] MEDS: Ferrous Sulfate 324 MG TABLET.DR PO (12:14)
[2024-07-25] MEDS: cefTRIAXone sodium 1 GM in 0.9 % Sodium Chloride 50 ML IV (17:21)
[2024-07-25] MEDS: Atorvastatin Calcium 80 MG TABLET PO (21:30)
[2024-07-25] MEDS: PARoxetine HCL 40 MG TABLET PO (21:30)
[2024-07-25] MEDS: Melatonin 3 MG TABLET 6 MG PO (21:40)
[2024-07-26] VITALS (8 sets, daily range): BP systolic 106–136; BP diastolic 57–67; PULSE 69–96; RESP 14–18; TEMP 36.1–37.1; O2SAT 95–99
[2024-07-26] MEDS: Levothyroxine Sodium 50 MCG TABLET PO (05:50)
[2024-07-26 06:23] LABS: Hematocrit 31.5 % (37.0-47.0); Hemoglobin 9.7 g/dl (12.0-16.0); Mean Corpuscular HGB Conc 30.8 g/dl (31.0-35.0); Mean Corpuscular Hemoglobin 24.7 pg (27.0-33.0); Mean Corpuscular Volume 80.4 fL (80.0-98.0); Mean Platelet Volume 9.4 fL (9.4-12.3); Platelet Count 322 X10*3/uL (160-400); Red Blood Count 3.92 X10*6/uL (4.20-5.50); Red Cell Distribution Width 15.7 % (11.0-16.0); White Blood Count 7.6 X10*3/uL (4.8-10.8)
--- NOTE | 2024-07-26 06:39 | PC.NURSE ---
Patient refused prilosec for this scenario writer; states she does not take it with her synthroid, requested prilosec be given later this morning with the rest of her scheduled morning meds. Oncoming RN made aware during handoff report.
[2024-07-26 06:40] LABS: B Type Natriuretic Peptide 1405 pg/mL (<100)
[2024-07-26 07:04] LABS: Anion Gap 13 (12-20); Blood Urea Nitrogen 31 mg/dL (9-16); Calcium 9.1 mg/dL (8.4-10.2); Carbon Dioxide 24 mmol/L (22-29); Chloride 109 mmol/L (96-108); Creatinine Clr Calc Pharmacy 20.8; Estimated Glomerular Filt Rate 20; Glucose Random 97 mg/dL (60-115); Potassium 3.8 mmol/L (3.3-5.1); Sodium 142 mmol/L (135-145)
[2024-07-26] MEDS: Metoprolol Succinate ER 12.5 MG HALFTAB.ER.24H 37.5 MG PO (09:25)
[2024-07-26] MEDS: 0.9 % Sodium Chloride Flush 3 ML SYRINGE IVFLUSH (09:25)
[2024-07-26] MEDS: Ferrous Sulfate 324 MG TABLET.DR PO (09:26)
[2024-07-26] MEDS: Cholecalciferol (Vitamin D3) 25 MCG TABLET PO (09:26)
[2024-07-26] MEDS: Apixaban 5 MG TABLET PO ×2 (09:26→20:07)
[2024-07-26] MEDS: Cyanocobalamin (Vitamin B-12) 1,000 MCG TABLET 1000 MCG PO (09:26)
[2024-07-26] MEDS: Clopidogrel Bisulfate 75 MG TABLET PO (09:26)
[2024-07-26] MEDS: Omeprazole 40 MG CAPSULE.DR PO (09:26)
[2024-07-26] MEDS: Docusate Sodium 100 MG CAPSULE PO ×2 (09:26→20:07)
[2024-07-26] MEDS: Amiodarone HCL 200 MG TABLET PO (09:26)
--- NOTE | 2024-07-26 10:32 | MHC.CM.PN ---
Per MD in [facility], Patient MAY be medically cleared for dc soon; PT is recommending STR and CM will continue to follow.
--- NOTE | 2024-07-26 11:03 | PM.PNNEP ---
Subjective Subjective Date of Service: 07/26/24 Interval history: Pt is a 68-year-old female with a PMH significant for?paroxysmal AFib on Eliquis, HFrEF, CAD/CT, HTN, peripheral artery disease, renal artery stenosis, CKD 3, and hypothyroidism who presents to the ED for evaluation of shortness of breath and elevated heart rate. Pt admitted to the hospital for treatment and further evaluation of acute UTI with sepsis and SUSAN in the setting of AFib with RVR. creatinine was 2.54 on admission (previous creatinine 1.47 on 05/27/24), has improved to 2.38 with fluids (pt getting gentle fluid resuscitation due to heart failure) creatinine has plateaued over last few days, most recent today 2.35 potassium 3.2, of note her potassium is chronically low on an intermittent basis. 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 but has not seen one for many years she does see a urologist for urinary incontinence and frequent UTIs she endorses fatigue but denies chest pain, dyspnea, lower extremity swelling Physical Exam Vital Signs: Vital Signs: Last Vital Signs Temp 97.6 F 07/26/24 07:16 Pulse 74 07/26/24 09:25 Resp 18 07/26/24 07:16 BP 114/66 07/26/24 09:25 Pulse Ox 97 07/26/24 07:16 O2 Del Method Room Air 07/26/24 07:16 BMI result Body Mass Index 22.4 Const: General: comfortable and no acute distress Orientation/consciousness: oriented to person, oriented to place and oriented to time Neck: Neck: Yes no JVD Resp: Effort & Inspection: able to speak in complete sentences Auscultation: clear to auscultation bilaterally Cardio: Jugular venous distension: no JVD Rate: regular rate Rhythm: regular rhythm Heart sounds: S1 normal heart sound present and S2 normal heart sound present GI: Palpation (GI): Soft to palpation Rectal Exam - Female: No tenderness : General: Yes no CVA tenderness Back/Spine/Pelvis: Back: no CVA tenderness Skin: Rashes: no rashes Neuro: General: oriented to person, oriented to place and oriented to time Extrem: General: Yes normal to inspection, No edema and No pedal edema Objective Data Labs 07/26/24 05:34 07/26/24 05:34 Labs: Laboratory Results - last 24 hr 07/26/24 05:34 WBC 7.6 RBC 3.92 L Hgb 9.7 L Hct 31.5 L MCV 80.4 MCH 24.7 L MCHC 30.8 L RDW 15.7 Plt Count 322 MPV 9.4 Absolute Nucleated RBC 0.000 Nucleated RBC % (auto) 0.0 Sodium 142 Potassium 3.8 Chloride 109 H Carbon Dioxide 24 Anion Gap 13 BUN 31 H Creatinine 2.35 H Estim Creat Clear Calc 20.8 Estimated GFR 20 Random Glucose 97 Calcium 9.1 B-Natriuretic Peptide 1405 H Microbiology Microbiology Results: Microbiology 07/22/24 15:13 Blood - Venous Blood Culture - Preliminary No growth after 48 hours. 07/22/24 14:56 Blood - Venous Blood Culture - Preliminary No growth after 48 hours. 07/22/24 Unknown Urine clean catch - Clean Catch Midstream Urine Culture - Final Citrobacter freundii Procedures Date of Service Date of Service: 07/26/24 Assessment & Plan Assessment and plan (1) Acute kidney injury superimposed on CKD: Status: Acute (2) Hypokalemia: Status: Acute Plan pt with SUSAN on CKD3 likely secondary to UTI and renal hypoperfusion (afib, hypovolemia, hypotension). pt also has chronic hypokalemia, likely secondary to loop diuretic use without potassium supplementation, as this has resolved by holding loop diuretic. will consider checking serologies for glomerulonephritis given plateau in renal function (C3/4, anca, spep) urine sodium indicates pt may still be slightly hypovolemic recommend continuing to hold diuretics and continue to encourage oral hydration continue to treat infection follow serum creatinine closely monitor I&O, blood pressure follow electrolytes, renal function studies continue oral iron supplementation for iron deficiency anemia follow creatinine closely, no indication for dialysis. Discussed with Dr Hoover Time Spent With Patient Time: Total time managing care of this patient today ____ minutes. Progress Note: Quality Stroke Does the patient have a stroke diagnosis?: No
--- NOTE | 2024-07-26 16:19 | HO.PM.IMPN ---
Subjective Subjective Date of Service: 07/26/24 Interval History: No acute issues overnight Review of Systems Denies chest pain Denies shortness of breath Denies nausea vomiting diarrhea Denies fever chills Physical Exam Vital Signs: Vital Signs: Last Vital Signs Temp 97.5 F 07/26/24 15:26 Pulse 81 07/26/24 15:26 Resp 14 07/26/24 15:26 BP 136/62 07/26/24 15:26 Pulse Ox 97 07/26/24 15:26 O2 Del Method Room Air 07/26/24 15:26 BMI result Body Mass Index 22.4 Const: Other: Awake alert no acute distress Resp: Other: Clear to auscultation bilaterally no rales rhonchi or wheezes Cardio: Other: No S4; positive S1-S2; no S3 murmurs rubs or gallops GI: Other: Soft nontender nondistended normoactive bowel sounds Extrem: Other: No edema bilaterally Objective Data Active Medications Acetaminophen (Acetaminophen 325 Mg Tablet) 650 mg PO Q6H PRN PRN Reason: Pain, Mild (Pain Scale 1-3), fever or headache Last Admin: 07/25/24 21:34 Dose: 650 mg Documented By: ANGELINA Amiodarone HCl (Amiodarone Hcl 200 Mg Tablet) 200 mg PO DAILY [facility] Last Admin: 07/26/24 09:26 Dose: 200 mg Documented By: MIRANDA Apixaban (Apixaban 5 Mg Tablet) 5 mg PO BID [facility] Last Admin: 07/26/24 09:26 Dose: 5 mg Documented By: MIRANDA Atorvastatin Calcium (Atorvastatin Calcium 80 Mg Tablet) 80 mg PO BEDTIME [facility] Last Admin: 07/25/24 21:30 Dose: 80 mg Documented By: AGNELINA Benzonatate (Benzonatate 100 Mg Capsule) 100 mg PO TID PRN PRN Reason: Cough Calcium Carbonate (Calcium Carbonate 750 Mg Tab.Chew) 750 mg PO Q4H PRN PRN Reason: Heartburn Clopidogrel Bisulfate (Clopidogrel Bisulfate 75 Mg Tablet) 75 mg PO DAILY [facility] Last Admin: 07/26/24 09:26 Dose: 75 mg Documented By: MIRANDA Cyanocobalamin (Cyanocobalamin (Vitamin B-12) 1,000 Mcg Tablet) 1,000 mcg PO DAILY [facility] Last Admin: 07/26/24 09:26 Dose: 1,000 mcg Documented By: MIRANDA Docusate Sodium (Docusate Sodium 100 Mg Capsule) 100 mg PO BID [facility] Last Admin: 07/26/24 09:26 Dose: 100 mg Documented By: MIRANDA Ferrous Sulfate (Ferrous Sulfate 324 Mg Tablet.) 324 mg PO DAILY [facility] Last Admin: 07/26/24 09:26 Dose: 324 mg Documented By: MIRANDA Ceftriaxone Sodium 1 gm/ (Sodium Chloride) 50 mls @ 100 mls/hr IV Q24H [facility] Last Infusion: 07/25/24 17:58 Dose: Infused Documented By: BROHenok Levothyroxine Sodium (Levothyroxine Sodium 50 Mcg Tablet) 50 mcg PO DAILY@629 [facility] Last Admin: 07/26/24 05:50 Dose: 50 mcg Documented By: ANGELINA Magnesium Hydroxide (Milk Of Magnesia 30 Ml Oral.Susp) 30 ml PO DAILY PRN PRN Reason: Constipation Melatonin (Melatonin 3 Mg Tablet) 6 mg PO BEDTIME PRN PRN Reason: Insomnia Last Admin: 07/25/24 21:40 Dose: 6 mg Documented By: ANGELINA Metoprolol Succinate (Metoprolol Succinate Er 12.5 Mg Halftab.Er.24h) 37.5 mg PO DAILY [facility]; Protocol Last Admin: 07/26/24 09:25 Dose: 37.5 mg Documented By: MIRANDA Omeprazole (Omeprazole 40 Mg Capsule.) 40 mg PO DAILY@30 [facility] Last Admin: 07/26/24 09:26 Dose: 40 mg Documented By: MIRANDA Ondansetron HCl (Ondansetron Hcl 4 Mg/2 Ml Vial) 4 mg IVPUSH Q8H PRN PRN Reason: Nausea and Vomiting Last Admin: 07/24/24 21:14 Dose: 4 mg Documented By: SHILPA Paroxetine HCl (Paroxetine Hcl 40 Mg Tablet) 40 mg PO BEDTIME [facility] Last Admin: 07/25/24 21:30 Dose: 40 mg Documented By: ANGELINA Sodium Chloride (0.9 % Sodium Chloride Flush 3 Ml Syringe) 3 ml IVFLUSH QSHIFT [facility] Last Admin: 07/26/24 09:25 Dose: 3 ml Documented By: MIRANDA Vitamin D (Cholecalciferol (Vitamin D3) 25 Mcg Tablet) 25 mcg PO DAILY [facility] Last Admin: 07/26/24 09:26 Dose: 25 mcg Documented By: MIRANDA Labs 07/26/24 05:34 07/26/24 05:34 Labs: Laboratory Results - last 24 hr 07/26/24 05:34 MCV 80.4 MCH 24.7 L MCHC 30.8 L RDW 15.7 Plt Count 322 MPV 9.4 Absolute Nucleated RBC 0.000 Nucleated RBC % (auto) 0.0 Anion Gap 13 Estim Creat Clear Calc 20.8 Estimated GFR 20 Random Glucose 97 Calcium 9.1 B-Natriuretic Peptide 1405 H Assessment and Plan (1) UTI (urinary tract infection): Status: Resolved (2) Atrial fibrillation with rapid ventricular response: Status: Acute Plan 68yo F with pAF on apixaban, HFrEF, CAD, HTN, PAD, KIM, CKD3, hypothyroidism presenting with dyspnea, palpitations, R flank pain, and dysuria admitted for sepsis due to UTI, AF/RVR, and SUSAN 1.Sepsis due to Citrobacter freundii UTI - C. freundii resistant only to cefazolin;ceftriaxone (5) likely switch to ceftin upon discharge - normal renal US 2.AF/RVR - HR improved on higher dose of metoprolol succinate 25 increased to 37.5 mg daily - continue amiodarone - conitnue apixaban 3.SUSAN/CKD3 -responding to volume -follow renal/divalents 4.Chronic HFrEF -BNP slightly elevated this a.m.; clinically stable -repeat CXR in morning 5.CAD -stable and well compensated -continue current therapies In my clinical judgment, the patient requires continued inpatient hospitalization for the following reasons: SUSAN, dispo planning Quality Stroke Does the patient have a stroke diagnosis?: No VTE Prior VTE?: No VTE Risk Level:: Medical - moderate - high VTE Device Contraindication: Treatment Not Indicated VTE Drug Contraindication: N/A - Med Ordered
[2024-07-26] MEDS: cefTRIAXone sodium 1 GM in 0.9 % Sodium Chloride 50 ML IV (17:01)
[2024-07-26] MEDS: Atorvastatin Calcium 80 MG TABLET PO (20:07)
[2024-07-26] MEDS: Melatonin 3 MG TABLET 6 MG PO (20:07)
[2024-07-26] MEDS: PARoxetine HCL 40 MG TABLET PO (20:07)
[2024-07-27] MEDS: 0.9 % Sodium Chloride Flush 3 ML SYRINGE IVFLUSH ×2 (00:20→11:26)
[2024-07-27 03:15] VITALS: BP 117/58; PULSE 78; RESP 18; TEMP 36.4; O2SAT 97
[2024-07-27] MEDS: Levothyroxine Sodium 50 MCG TABLET PO (05:38)
[2024-07-27 06:38] LABS: Alanine Aminotransferase 10 U/L (0-31); Albumin Level 2.9 g/dL (3.5-5.0); Alkaline Phosphatase 75 U/L (39-117); Anion Gap 14 (12-20); Aspartate Amino Transferase 9 U/L (5-31); Bilirubin Total 0.2 mg/dL (0.0-1.0); Blood Urea Nitrogen 28 mg/dL (9-16); Carbon Dioxide 24 mmol/L (22-29); Chloride 109 mmol/L (96-108); Creatinine Clr Calc Pharmacy 22.4; Estimated Glomerular Filt Rate 22; Glucose Fasting 92 mg/dL (60-99); Potassium 3.9 mmol/L (3.3-5.1); Sodium 143 mmol/L (135-145); Total Protein 6.2 g/dL (6.5-8.0)
[2024-07-27 07:07] VITALS: BP 110/57; PULSE 74; RESP 18; TEMP 37.3; O2SAT 98
[2024-07-27] MEDS: Omeprazole 40 MG CAPSULE.DR PO (09:20)
[2024-07-27 10:54] VITALS: BP 108/60; PULSE 86; RESP 18; TEMP 37.1; O2SAT 99
[2024-07-27] MEDS: Metoprolol Succinate ER 12.5 MG HALFTAB.ER.24H 37.5 MG PO (11:25)
[2024-07-27] MEDS: Clopidogrel Bisulfate 75 MG TABLET PO (11:26)
[2024-07-27] MEDS: Docusate Sodium 100 MG CAPSULE PO (11:26)
[2024-07-27] MEDS: Ferrous Sulfate 324 MG TABLET.DR PO (11:26)
[2024-07-27] MEDS: Apixaban 5 MG TABLET PO (11:26)
[2024-07-27] MEDS: Cholecalciferol (Vitamin D3) 25 MCG TABLET PO (11:26)
[2024-07-27] MEDS: Cyanocobalamin (Vitamin B-12) 1,000 MCG TABLET 1000 MCG PO (11:26)
[2024-07-27] MEDS: Amiodarone HCL 200 MG TABLET PO (11:26)
--- NOTE | 2024-07-27 11:34 | MHC.CM.PN ---
Per MD, Patient is medically cleared for dc to SNF/STR today. Patient has accepted a private room bed offer from [facility] and she will dc there today at 3:30 PM, via [facility]. CM addressed IMM with Patient at bedside and the original was given to her and a copy has been placed on the chart. CM left a detailed message for Sister/HCP/Aliya @ [phone], informing her of the dc plan.
--- NOTE | 2024-07-27 12:16 | PM.PNNEP ---
Subjective Subjective Date of Service: 07/27/24 Interval history: Pt is a 68-year-old female with a PMH significant for?paroxysmal AFib on Eliquis, HFrEF, CAD/MT, HTN, peripheral artery disease, renal artery stenosis, CKD 3, and hypothyroidism. hospitalized for treatment and further evaluation of acute UTI with sepsis and SUSAN in the setting of AFib with RVR. Nephrology consulted. creatinine was 2.54 on admission (previous creatinine 1.47 on 05/27/24), has improved to 2.38 with fluids (pt getting gentle fluid resuscitation due to heart failure) creatinine has improved slightly, 2.18 today, down from 2.35 yesterday potassium has been normal Urine with mild protein, large amounts of RBS/WBCs received IFV, now switched to PO and broad spectrum abx for UTI/sepsis urine sodium on 07/23 was 29, urine creatinine 48, urine protein remains mild at 27 Today at bedside pt is alert and oriented/conversant denies flank pain, pain with urination, difficulty emptying bladder she states she used to see a service associate but has not seen one for many years she does see a urologist for urinary incontinence and frequent UTIs she endorses fatigue which she states is improving from yesterdya. denies chest pain, dyspnea, lower extremity swelling Physical Exam Vital Signs: Vital Signs: Last Vital Signs Temp 98.8 F 07/27/24 10:54 Pulse 86 07/27/24 10:54 Resp 18 07/27/24 10:54 BP 108/60 07/27/24 10:54 Pulse Ox 99 07/27/24 10:54 O2 Del Method Room Air 07/27/24 10:54 BMI result Body Mass Index 22.4 Const: General: comfortable and no acute distress Orientation/consciousness: oriented to person, oriented to place and oriented to time Neck: Neck: Yes no JVD Resp: Effort & Inspection: able to speak in complete sentences Auscultation: clear to auscultation bilaterally Cardio: Jugular venous distension: no JVD Rate: regular rate Rhythm: regular rhythm Heart sounds: S1 normal heart sound present and S2 normal heart sound present GI: Palpation (GI): Soft to palpation Rectal Exam - Female: No tenderness : General: Yes no CVA tenderness Back/Spine/Pelvis: Back: no CVA tenderness Skin: Rashes: no rashes Neuro: General: oriented to person, oriented to place and oriented to time Extrem: General: Yes normal to inspection, No edema and No pedal edema Objective Data Labs 07/26/24 05:34 07/27/24 05:59 Labs: Laboratory Results - last 24 hr 07/27/24 05:59 Sodium 143 Potassium 3.9 Chloride 109 H Carbon Dioxide 24 Anion Gap 14 BUN 28 H Creatinine 2.18 H Estim Creat Clear Calc 22.4 Estimated GFR 22 Fasting Glucose 92 Calcium 9.0 Total Bilirubin 0.2 AST 9 ALT 10 Alkaline Phosphatase 75 Total Protein 6.2 L Albumin 2.9 L Microbiology Microbiology Results: Microbiology 07/22/24 15:13 Blood - Venous Blood Culture - Preliminary No growth after 48 hours. 07/22/24 14:56 Blood - Venous Blood Culture - Preliminary No growth after 48 hours. 07/22/24 Unknown Urine clean catch - Clean Catch Midstream Urine Culture - Final Citrobacter freundii Procedures Date of Service Date of Service: 07/27/24 Assessment & Plan Assessment and plan (1) Acute kidney injury superimposed on CKD: Status: Acute (2) Hypokalemia: Status: Acute Plan pt with SUSAN on CKD3 likely secondary to UTI and renal hypoperfusion (afib, hypovolemia, hypotension). serologies for glomerulonephritis evaluation are pending. creatinine continues to slowly improve urine sodium indicates pt may still be slightly hypovolemic recommend continuing to hold diuretics and continue to encourage oral hydration continue to treat infection follow serum creatinine closely monitor I&O, blood pressure follow electrolytes, renal function studies continue oral iron supplementation for iron deficiency anemia follow creatinine closely, no indication for dialysis. Discussed with Dr Hoover Time Spent With Patient Time: Total time managing care of this patient today ____ minutes. Progress Note: Quality Stroke Does the patient have a stroke diagnosis?: No
--- NOTE | 2024-07-27 13:42 | P.DS_ITS ---
DS: Providers Provider Date of Service: 07/27/24 Date of admission: 07/22/24 18:50 Date of discharge: 07/27/24 Primary care physician: Amina Whitfield MD Consults: 07/22/24 18:49 Consult to Nephrology Routine Consulting Provider: [facility] Reason for consultation: SUSAN on CKD 07/23/24 06:00 Consult to General Surgery Routine Consulting Provider: [facility] Reason for consultation: Large, thick, foul-smelling eschar at site of hemorrhagic blister from 05/28 DS: Diagnosis Discharge Diagnosis (1) Acute kidney injury superimposed on CKD: Status: Acute (2) Hypokalemia: Status: Acute DS: Summary Hospital Course Hospital Course: 68-year-old female with a PMH significant for?paroxysmal AFib on Eliquis, HFrEF, CAD/NV, HTN, peripheral artery disease, renal artery stenosis, CKD 3, and hypothyroidism who presents to the ED for evaluation of shortness of breath and elevated heart rate. Patient developed difficulty breathing with exertion late last night. Reports she was barely able to ambulate or hold onto her walker. This morning symptoms persisted, and pt states she just felt terrible . Her pulse oximetry noted heart rate to be elevated at 144, which prompted her visit to the ED. Patient denies chest pain/pressure or palpitations. States she only gets short of breath when she goes into AFib with RVR. Has also been experiencing right flank pain, dysuria, and polyuria especially at night for the past few days. Some nausea but no vomiting. Reports reduced p.o. intake the past few days. Denies abdominal pain. Upon physical examination patient is noted to have a large, thick collection of dried blood on dorsal aspect of distal left foot. Patient states that occurred 3-4 weeks ago when she dropped a shampoo bottle on her foot in the shower. However, review of records indicates incident occurred at the end of April. Patient came to the ED on 05/28/2024 after having a hemorrhagic bulla develop ?that was aspirated in the ED. Pt is on both Plavix and Eliquis and reports area subsequently bled and thick scab formed over it. Patient lives alone without services and has been taking care of it on her own. In the ED pt was tachycardic up to 126 and with low-grade fever of 99.4. Labs were significant for leukocytosis of 13.9, stable microcytic anemia of 10.8/33.8, potassium 3.2, BUN 38, creatinine 2.54 (elevated from 1.47 on 05/27/2024), initial troponin 23, and BNP 1 644. UA consistent with acute UTI. CXR showed no acute cardiopulmonary disease. CT?of abdomen and pelvis showed no evidence to explain patient's bilateral flank pain and SUSAN, but did show mild stranding around left kidney and proximal ureter. EKG demonstrated AFib with RVR of [address] abnormalities. Pt was treated with metoprolol 5 mg IV in 12.5 mg p.o., IVF, and ceftriaxone. Pt will be admitted to the hospital for treatment and further evaluation of acute UTI with sepsis and SUSAN in the setting of AFib with RVR. Hospital course Patient admitted to telemetry. She was given an extra metoprolol succinate in the emergency room and continued on her home meds. Rate subsequently responded and ventricular control rate remained stable throughout her hospitalization.. Her urine culture ultimately grew out Citrobacter for which she was treated with ceftriaxone. She was seen by Physical therapy and deemed appropriate for short- term rehab. At this point in time she is medically acceptable for discharge to short-term rehab. Further plans as per receiving facility. She will need to complete a course of Ceftin 250 b.i.d. times 7 days. Her acute kidney injury responded well to volume at this point in time after being seen by renal is just encouraged to hold Lasix and encourage fluids p.o.. Time Attestation Discharge Coordination Time (in mins): 35 Quality: Safe Use of Opioids Does Pt have an Active Cancer Diagnosis on the Problem List?: No Quality: Stroke Does the patient have a stroke diagnosis?: No Physical Exam Vital Signs: Vital Signs: Last Vital Signs Temp 98.8 F 07/27/24 10:54 Pulse 86 07/27/24 10:54 Resp 18 07/27/24 10:54 BP 108/60 07/27/24 10:54 Pulse Ox 99 07/27/24 10:54 O2 Del Method Room Air 07/27/24 10:54 BMI result Body Mass Index 22.4 Const: Other: Awake alert no acute distress Resp: Other: Clear to auscultation bilaterally no rales rhonchi or wheezes Cardio: Other: No S4; positive S1-S2; no S3 murmurs rubs or gallops GI: Other: Soft nontender nondistended normoactive bowel sounds Extrem: Other: No edema bilaterally DS: Data Data Completed and Pending Completed studies during hospitalization [Text1]: Procedures Replacement of Left Hip Joint with Ceramic Synthetic Substitute, Uncemented, Open Approach (03/30/24) Catholic of Cardiac Rhythm, Single (09/13/21) Transfusion of Nonautologous Red Blood Cells into Peripheral Vein, Percutaneous Approach (03/30/24) Labs on day of discharge: Laboratory Results - last 24 hr 07/27/24 05:59 Sodium 143 Potassium 3.9 Chloride 109 H Carbon Dioxide 24 Anion Gap 14 BUN 28 H Creatinine 2.18 H Estim Creat Clear Calc 22.4 Estimated GFR 22 Fasting Glucose 92 Calcium 9.0 Total Bilirubin 0.2 AST 9 ALT 10 Alkaline Phosphatase 75 Total Protein 6.2 L Albumin 2.9 L Preliminary micro results at discharge 07/22/24 15:13 Blood Culture - Preliminary Blood - Venous No growth after 48 hours. 07/22/24 14:56 Blood Culture - Preliminary Blood - Venous No growth after 48 hours. Discharge Plan Discharge Anticipated Discharge Date/Time: 07/27/24 13:27 Patient Disposition: er SNF Discharge Diagnosis: Acute kidney injury Referrals: [facility] [Outside] - 1 Week Amina Whitfield MD [Primary Care Provider] - 1 Week Discharge Medications: New cefuroxime axetil 250 mg tablet 250 mg PO BID 7 Days Qty: 14 0RF Continued atorvastatin 80 mg tablet 80 mg PO BEDTIME Qty: 90 1RF clopidogrel 75 mg tablet 75 mg PO DAILY Qty: 90 3RF Eliquis 5 mg tablet 5 mg PO BID Qty: 180 3RF fluticasone propion-salmeterol 113-14 mcg/actuation aerosol powdr breath activated 1 inh inhalation Q12H 30 Days Qty: 1 1RF furosemide 20 mg tablet 40 mg PO DAILY 90 Days Qty: 180 0RF Protocol: Hold for SBP< HOLD for SBP < : 90 cyanocobalamin (vitamin B-12) [Vitamin B-12] 1,000 mcg Tablet 1,000 mcg PO DAILY cholecalciferol (vitamin D3) [Vitamin D3] 25 mcg (1,000 unit) Tablet 25 mcg PO DAILY melatonin 10 mg Tablet 10 mg PO BEDTIME amiodarone 200 mg tablet 200 mg PO DAILY acetaminophen 500 mg Tablet 1,000 mg PO DAILY PRN (Reason: Pain) docusate sodium [Colace] 100 mg Capsule 100 mg PO BID pantoprazole 40 mg tablet,delayed release (DR/EC) 40 mg PO DAILY@0630 paroxetine HCl 40 mg tablet 40 mg PO BEDTIME metoprolol succinate 25 mg tablet extended release 24 hr 25 mg PO DAILY levothyroxine [Synthroid] 50 mcg tablet 50 mcg PO DAILY@0600 Discharge Orders: Discharge Order (Routine); Ordered 07/27/24 Ordered By: Macario Armenat Diet: Advance to usual diet Activity on Discharge: As tolerated Stand Alone Forms: Patient Portal Discharge page Print Language: Kosovan Care Plan Goals: Continue all meds as outlined on transfer sheet. Ceftin 250 mg b.i.d. for 7 days Health Concerns: Further plans as per receiving facility Plan of Treatment: See discharge summary Assessment: See discharge summary
[2024-07-27 15:38] LABS: Complement C3 143 mg/dL (83-193)
[2024-07-28 12:28] LABS: Prot Elec - Albumin 2.4 g/dL (3.8-4.8); Prot Elec - Alpha1 0.5 g/dL (0.2-0.3); Prot Elec - Alpha2 1.2 g/dL (0.5-0.9); Prot Elec - Beta 1 0.4 g/dL (0.4-0.6); Prot Elec - Beta 2 0.4 g/dL (0.2-0.5); Prot Elec - Gamma 0.9 g/dL (0.8-1.7); Prot Elec - Total Protein 5.8 g/dL (6.1-8.1)
[2024-07-28 13:53] LABS: Myeloperoxidase Antibody <1.0 AI; Proteinase 3 PR3 Antibodies <1.0 AI
== END 2024-07-27 17:45 | disposition skilled nursing facility (03) | DRG 872 ==
LOC: HO.ED 14:51 → HO.EDOVER 18:57 → HO.IMC 07-23 16:45
PROVIDERS: Family Medicine; Nurse Practitioner Family; Physician Assistant; Admitting Provider Student in an Organized Health Care Education/Training Program; Emergency Provider Student in an Organized Health Care Education/Training Program; PCP Internal Medicine; Visit Provider Hospitalist
DX: A41.4 Sepsis due to anaerobes (principal); I13.0 Hypertensive heart and chronic kidney disease with heart failure and stage 1 through stage 4 chronic kidney disease, or unspecified chronic kidney disease; N17.9 Acute kidney failure, unspecified; I50.22 Chronic systolic (congestive) heart failure; N13.6 Pyonephrosis; I25.10 Atherosclerotic heart disease of native coronary artery without angina pectoris; G35 Multiple sclerosis; N18.30 Chronic kidney disease, stage 3 unspecified; J44.9 Chronic obstructive pulmonary disease, unspecified; F39 Unspecified mood [affective] disorder; I48.91 Unspecified atrial fibrillation; E03.9 Hypothyroidism, unspecified; E86.1 Hypovolemia; I95.9 Hypotension, unspecified; D50.9 Iron deficiency anemia, unspecified; S90.32XS Contusion of left foot, sequela; W20.8XXS Other cause of strike by thrown, projected or falling object, sequela; E87.6 Hypokalemia; Z95.5 Presence of coronary angioplasty implant and graft; Z87.891 Personal history of nicotine dependence; Z87.440 Personal history of urinary (tract) infections; Z79.01 Long term (current) use of anticoagulants; Z79.02 Long term (current) use of antithrombotics/antiplatelets; Z79.51 Long term (current) use of inhaled steroids; Z79.890 Hormone replacement therapy; Z79.899 Other long term (current) drug therapy
CPT/HCPCS: 36415; 71045; 74176; 76775; 80048; 80053; 80076; 81001; 82570; 82728; 82947; 83540; 83605; 83735; 83880; 84156; 84165; 84300; 84443; 84484; 85025; 85027; 86021; 86160; 87040; 87086; 87088; 87186; 93005; 97116; 97162; 99285; J0696; J2405; J7120

== ENCOUNTER → 2024-07-22 18:50 | Outpatient (BNV) | payer MEDICARE, BC, SELFPAY | PROVIDERS: Admitting Provider Student in an Organized Health Care Education/Training Program; Emergency Provider Student in an Organized Health Care Education/Training Program; PCP Internal Medicine; Visit Provider Student in an Organized Health Care Education/Training Program | DX: I48.91 Unspecified atrial fibrillation (principal); A41.59 Other Gram-negative sepsis; R82.71 Bacteriuria; B96.89 Other specified bacterial agents as the cause of diseases classified elsewhere | CPT/HCPCS: 99223; 99232; 99239 ==

== ENCOUNTER → 2024-07-22 18:50 | Outpatient (BNV) | payer MEDICARE, BC, SELFPAY | PROVIDERS: Admitting Provider Student in an Organized Health Care Education/Training Program; Emergency Provider Student in an Organized Health Care Education/Training Program; PCP Internal Medicine; Visit Provider Surgery | DX: T14.8XXA Other injury of unspecified body region, initial encounter (principal) | CPT/HCPCS: 99222; 99232 ==

== ENCOUNTER → 2024-07-22 18:50 | Outpatient (BNV) | payer MEDICARE, BC, SELFPAY | PROVIDERS: Admitting Provider Student in an Organized Health Care Education/Training Program; Emergency Provider Student in an Organized Health Care Education/Training Program; PCP Internal Medicine; Visit Provider Nurse Practitioner Family | DX: N17.9 Acute kidney failure, unspecified (principal); N18.9 Chronic kidney disease, unspecified; E87.6 Hypokalemia | CPT/HCPCS: 99222; 99232 ==

== ENCOUNTER 2024-07-29 06:39 | Outpatient (REF) | payer SELFPAY ==
[2024-07-29 06:43] LABS: MANUAL DIFF FLAG NO
[2024-07-29 07:15] LABS: Basophils Absolute Auto 0.1 X10*3/uL (0.0-0.2); Basophils Percent Auto 0.8 % (0-2); Eosinophils Absolute Auto 0.1 X10*3/uL (0.0-0.4); Eosinophils Percent Auto 0.9 % (0-4); Hematocrit 30.1 % (37.0-47.0); Hemoglobin 9.5 g/dl (12.0-16.0); Imm Gran Pct Auto 1.1 % (0.0-0.4); Lymphocytes Absolute Auto 1.4 X10*3/uL (1.2-4.9); Lymphocytes Percent Auto 15.2 % (20-40); Mean Corpuscular HGB Conc 31.6 g/dl (31.0-35.0); Mean Corpuscular Hemoglobin 25.1 pg (27.0-33.0); Mean Corpuscular Volume 79.4 fL (80.0-98.0); Mean Platelet Volume 9.4 fL (9.4-12.3); Monocytes Absolute Auto 0.5 X10*3/uL (0.1-1.2); Monocytes Percent Auto 5.7 % (2-11); Neutrophils Percent Auto 76.3 % (45-73); Platelet Count 345 X10*3/uL (160-400); Red Blood Count 3.79 X10*6/uL (4.20-5.50); Red Cell Distribution Width 15.5 % (11.0-16.0); White Blood Count 9.2 X10*3/uL (4.8-10.8)
[2024-07-29 07:28] LABS: Anion Gap 13 (12-20); Blood Urea Nitrogen 30 mg/dL (9-16); Carbon Dioxide 25 mmol/L (22-29); Chloride 108 mmol/L (96-108); Estimated Glomerular Filt Rate 19; Glucose Random 83 mg/dL (60-115); Potassium 4.1 mmol/L (3.3-5.1); Sodium 142 mmol/L (135-145)
[2024-07-29 07:44] LABS: TSH reflex Free T4 3.39 uIU/mL (0.32-4.0)
== END 2024-07-29 06:40 | disposition home or self-care (01) ==
LOC: HO.MMNH1L 06:39
PROVIDERS: Visit Provider Hospitalist
DX: E87.6 Hypokalemia (principal); G35 Multiple sclerosis
CPT/HCPCS: 36415; 80048; 84443; 85025

== ENCOUNTER 2024-07-30 05:48 | Outpatient (REF) | payer SELFPAY ==
[2024-07-30 05:54] LABS: MANUAL DIFF FLAG NO
[2024-07-30 06:14] LABS: Basophils Absolute Auto 0.1 X10*3/uL (0.0-0.2); Basophils Percent Auto 0.7 % (0-2); Eosinophils Absolute Auto 0.1 X10*3/uL (0.0-0.4); Eosinophils Percent Auto 1.3 % (0-4); Hematocrit 29.5 % (37.0-47.0); Hemoglobin 9.3 g/dl (12.0-16.0); Imm Gran Abs Auto 0.09 X10*3/uL (0.00-0.03); Imm Gran Pct Auto 1.1 % (0.0-0.4); Lymphocytes Absolute Auto 1.6 X10*3/uL (1.2-4.9); Lymphocytes Percent Auto 19.6 % (20-40); Mean Corpuscular HGB Conc 31.5 g/dl (31.0-35.0); Mean Corpuscular Hemoglobin 25.1 pg (27.0-33.0); Mean Corpuscular Volume 79.7 fL (80.0-98.0); Mean Platelet Volume 9.4 fL (9.4-12.3); Monocytes Absolute Auto 0.5 X10*3/uL (0.1-1.2); Neutrophils Absolute Auto 5.8 x10*3/uL (2.0-8.3); Neutrophils Percent Auto 71.3 % (45-73); Platelet Count 362 X10*3/uL (160-400); Red Cell Distribution Width 15.5 % (11.0-16.0); White Blood Count 8.2 X10*3/uL (4.8-10.8)
[2024-07-30 06:31] LABS: Anion Gap 15 (12-20); Blood Urea Nitrogen 37 mg/dL (9-16); Calcium 8.3 mg/dL (8.4-10.2); Carbon Dioxide 23 mmol/L (22-29); Chloride 109 mmol/L (96-108); Estimated Glomerular Filt Rate 19; Glucose Random 88 mg/dL (60-115); Iron 21 mcg/dL (30-160); Percent Iron Saturation 12 % (15-50); Sodium 143 mmol/L (135-145); Total Iron Binding Capacity 181 mcg/dL (228-428); Unsaturated Iron Binding 160 ug/dL
[2024-07-30 07:10] LABS: Vitamin B12 > 2000 pg/mL (200-900)
== END 2024-07-30 05:49 | disposition home or self-care (01) ==
LOC: HO.MMNH1L 05:48
PROVIDERS: Visit Provider Hospitalist
DX: N17.9 Acute kidney failure, unspecified (principal); G35 Multiple sclerosis
CPT/HCPCS: 36415; 80048; 82607; 82746; 83540; 85025

== ENCOUNTER 2024-08-02 06:29 | Outpatient (REF) | payer SELFPAY ==
[2024-08-02 06:13] LABS: MANUAL DIFF FLAG NO
[2024-08-02 07:04] LABS: Basophils Absolute Auto 0.1 X10*3/uL (0.0-0.2); Basophils Percent Auto 0.9 % (0-2); Eosinophils Absolute Auto 0.1 X10*3/uL (0.0-0.4); Eosinophils Percent Auto 1.3 % (0-4); Hematocrit 28.8 % (37.0-47.0); Hemoglobin 8.8 g/dl (12.0-16.0); Imm Gran Abs Auto 0.05 X10*3/uL (0.00-0.03); Imm Gran Pct Auto 0.6 % (0.0-0.4); Lymphocytes Absolute Auto 1.4 X10*3/uL (1.2-4.9); Lymphocytes Percent Auto 18.3 % (20-40); Mean Corpuscular HGB Conc 30.6 g/dl (31.0-35.0); Mean Corpuscular Hemoglobin 24.6 pg (27.0-33.0); Mean Corpuscular Volume 80.7 fL (80.0-98.0); Mean Platelet Volume 9.7 fL (9.4-12.3); Monocytes Absolute Auto 0.6 X10*3/uL (0.1-1.2); Monocytes Percent Auto 7.1 % (2-11); Neutrophils Absolute Auto 5.6 x10*3/uL (2.0-8.3); Neutrophils Percent Auto 71.8 % (45-73); Platelet Count 378 X10*3/uL (160-400); Red Blood Count 3.57 X10*6/uL (4.20-5.50); Red Cell Distribution Width 15.4 % (11.0-16.0); White Blood Count 7.8 X10*3/uL (4.8-10.8)
[2024-08-02 07:14] LABS: Anion Gap 11 (12-20); Blood Urea Nitrogen 34 mg/dL (9-16); Calcium 8.4 mg/dL (8.4-10.2); Carbon Dioxide 26 mmol/L (22-29); Chloride 111 mmol/L (96-108); Estimated Glomerular Filt Rate 20; Glucose Random 78 mg/dL (60-115); Potassium 4.8 mmol/L (3.3-5.1); Sodium 143 mmol/L (135-145)
== END 2024-08-02 06:30 | disposition home or self-care (01) ==
LOC: HO.MMNH1L 06:29
PROVIDERS: Visit Provider Hospitalist
DX: G35 Multiple sclerosis (principal)
CPT/HCPCS: 36415; 80048; 85025

== ENCOUNTER → 2024-09-15 10:41 | Outpatient (BNVA) | payer MEDICARE, BC, SELFPAY | PROVIDERS: PCP Internal Medicine; Visit Provider Nurse Practitioner Family | DX: R33.9 Retention of urine, unspecified (principal) | CPT/HCPCS: 51700; 51798 ==

== ENCOUNTER 2024-09-16 14:37 | Outpatient (AMB) | payer MEDICARE, BC, SELFPAY ==
[2024-09-16 14:41] VITALS: BP 90/62; PULSE 87; BMI 23.0
--- NOTE | 2024-09-16 14:41 | A.OFFVIS_ITS ---
Vital Signs 09/16/24 14:41 Height 5 ft 6 in Weight 142 lb 6.698 oz BMI 23.0 BP 90/62 Blood Pressure Location Lt brachial Position Sitting Pulse 87 Pulse Source Monitor Intake Visit Reasons: 3 mth f/up Jalousies Installer Required: No Allergies codeine [Codeine] Adverse Reaction (Mild, Verified 09/16/24 14:45) vomiting Medication List - Last Reconciled 09/16/24 by MODESTA Tyler acetaminophen 1,000 mg PO DAILY PRN amiodarone 200 mg PO DAILY apixaban (Eliquis) 5 mg PO BID atorvastatin 80 mg PO BEDTIME cefuroxime axetil 250 mg PO BID 7 days cholecalciferol (vitamin D3) (Vitamin D3) 25 mcg PO DAILY clopidogrel 75 mg PO DAILY cyanocobalamin (vitamin B-12) (Vitamin B-12) 1,000 mcg PO DAILY docusate sodium (Colace) 100 mg PO BID fluticasone propion-salmeterol 113-14 mcg/actuation 1 inh inhalation Q12H 30 days furosemide 40 mg See Protocol PO DAILY 90 days levothyroxine (Synthroid) 50 mcg PO DAILY@0600 melatonin 10 mg PO BEDTIME metoprolol succinate ER 12.5 mg PO DAILY pantoprazole 40 mg PO DAILY@0630 paroxetine HCl 40 mg PO BEDTIME HPI HPI 3 mth f/up: Details: Nai is a 69-year-old female past medical history of hypertension, hyperlipidemia, COPD, PAD, CAD with left circumflex and RCA stents, NSTEMI in setting of hypertensive crisis, heart failure with preserved EF, paroxysmal atrial fibrillation who Was recently admitted to [facility] with PAF, SUSAN and foot wound. Her AFib converted with metoprolol and she was continued on amiodarone. A few weeks later she was readmitted at [facility] since she was visiting a friend in that area. she was having increasing shortness of breath and was found to have UTI, SUSAN,sepsis, decompensated heart failure, AFib. her condition gradually improved with med management and she was discharged to rehab facility. She now presents for follow-up. Today she reports that she is still in the rehab facility but will be going home in 2 days. She says she has been in atrial fibrillation the entire time since her last hospital discharge. She has a cardio mobile device and it does read rhythm strips as atrial fibrillation. She also can notice that she has shortness of breath with walking when she has AFib. She does not have this symptom when she is not in atrial fibrillation. She does not notice heart palpitations. She has not had any chest discomfort at rest or with activity. No orthopnea, PND, edema. No lightheadedness, presyncope, syncope, falls. Her activity is limited by her shortness of breath. She is currently in a wheelchair. She is asking for a cardioversion. [facility] Medical History Recurrent urinary tract infection Atrial fibrillation UTI (urinary tract infection) Atrial fibrillation with rapid ventricular response Osteoarthritis of left hip Bilateral cataracts History of cardioversion Myocardial infarction Arthritis Hx of transfusion of packed red blood cells Thyroid disease GERD (gastroesophageal reflux disease) CKD (chronic kidney disease) On anticoagulant therapy History of smoking 30 or more pack years PAF (paroxysmal atrial fibrillation) Left renal artery stenosis Personal history of nicotine dependence Cardiomyopathy Essential hypertension Atherosclerotic cardiovascular disease Asymmetric blood pressures Acute on chronic systolic (congestive) heart failure CHF (congestive heart failure) CAD (coronary artery disease) Multiple sclerosis Pulmonary nodules COPD (chronic obstructive pulmonary disease) Peripheral arterial occlusive disease Surgical History Hip joint replacement status History of endoscopy History of colonoscopy History of heart artery stent (~2018) Status post angioplasty with stent (~09/2018) S/P insertion of iliac artery stent (~02/2019) S/P cardiac cath (~12/2020) History of cholecystectomy (~02/2009) Family History Father No problems noted. Mother No problems noted. Brother Diabetes Social History Household Members: None Housing: House Housing Other:: Sent in from [place] Are you a primary managed care specialist to a significant other at home: No Do you presently have visiting nurse or other home services: No Alcohol intake: never Comment: aware of trip hazard Patient Tobacco Use Status: Former Tobacco user Tobacco use type: Cigarette e-Cigarette/Vaping Use: Never Used Second Hand Smoke Exposure: No Advance Directives Date on File: 12/27/20 service: No Current occupational status: retired Cognitive needs: Yes (cane) Hearing needs: No Vision needs: Yes (reading glasses) Review of Systems Const All systems reviewed & are unremarkable except as noted in HPI and below ENT Denies dizziness Card Denies chest pain, Denies chest pain at rest, Denies chest pain with activity, Denies rapid heart rate, Denies pedal edema, Denies edema, Denies leg edema, Denies lightheadedness, Denies palpitations, Reports dyspnea, Reports dyspnea on exertion and Denies orthopnea Resp Denies cough, Reports dyspnea and Reports dyspnea on exertion GI Denies hematochezia and Denies change in stool character Musc Denies abnormal gait, Denies limited range of motion, Denies muscle cramps, Denies muscle weakness, Denies numbness, Denies radiating pain into limb, Denies stiffness and Denies tingling Neuro Denies abnormal gait, Denies dizziness, Denies numbness and Denies tingling Endo Denies palpitations Physical Exam Vital Signs: Last Vital Signs Pulse 87 09/16/24 14:41 BP 90/62 09/16/24 14:41 BMI result Body Mass Index 23.0 Const Other: sitting in wheelchair General: cooperative, healthy appearing, comfortable and no acute distress Orientation/consciousness: patient oriented x3 Neck Neck: Yes normal visual inspection and Yes no JVD Resp Effort & Inspection: normal respiratory effort Auscultation: clear to auscultation bilaterally, no rales, no rhonchi and no wheezes Cardio Jugular venous distension: no JVD Rate: regular rate Rhythm: abnormal rhythm Heart sounds: S1 normal heart sound present, S2 normal heart sound present, no murmurs and no rubs Neuro General: patient oriented x3 Extrem General: Yes normal to inspection and Yes no pedal edema Psych Appearance: grossly normal Mental Status: mental status grossly normal Speech and movement: Normal speech and movement present Office Procedures EKG Details: today, read by me, atrial fibrillation, nonspecific intraventricular conduction delay, can not exclude prior anterior infarct, downsloping ST depressions in the inferior and far lateral leads, rate 87, JT index 108.3 [id number], Complete Assessment & Plan Assessment & Plan (1) Atrial fibrillation: Code(s): I48.91 - Unspecified atrial fibrillation Category: Medical Plan: History of paroxysmal atrial fibrillation which had been mostly controlled with the use of amiodarone. She continues on amiodarone at 200 mg daily without signs toxicity. Recent [facility] admission and she was noted to have PAF. She did convert and follow-up EKG does show sinus rhythm. She was then admitted to [facility] as described above and she states she has been in atrial fibrillation since that time. Discharge note from. 08/08/2024 reviewed and it does not mention AFib but does state she had dyspnea and tachycardia. Will work on obtaining EKGs and echocardiogram that was done that admission. With atrial fibrillation she notices significant shortness of breath with walking. I reviewed her cardio mobile strips and AFib is confirmed by me. EKG done today showing atrial fibrillation with incomplete left bundle branch block, rate 87. Labs done, [facility], 09/04/2024 showed creatinine 1.73, Labs from [facility] 08/04/2024 showed AST 10, ALT 9, 07/29/2024 showed TSH 3.39. At [facility] they reduced her Eliquis to 2.5 mg b.i.d. due to her renal function. Based on her age and weight of 64.5 kg her dose should be 5 mg b.i.d, will make this change. She is interested in cardioversion procedure. She is not in decompensated heart failure. Will need to wait 3-4 weeks after the change in anticoagulation before cardioversion procedure can be done. Continue amiodarone 200 mg daily. Continue metoprolol at current dose of 12.5 mg daily. Her blood pressure has been running low and she is unable to tolerate higher doses. Signs and symptoms of heart failure reviewed with her. Emergency care if needed for symptoms. If cardioversion is needed sooner than JOAN CVR recommended. Plan for Holter monitor following cardioversion and follow-up visit after 1 month. (2) CHF (congestive heart failure): Comment: She was treated for congestive heart failure/bilateral pleural effusions, in June of this year. She stays on diuretic therapy is doing fairly well at this time. Code(s): I50.9 - Heart failure, unspecified Category: Medical Plan: History of heart failure with preserved EF. Prior decompensated heart failure in the setting of AFib RVR. Notes from [facility] do indicate that she had some decompensated heart failure. She does report shortness of breath with activity today but does not appear fluid overloaded. She Continues on Lasix 40 mg daily. Signs and symptoms of heart failure reviewed with her. (3) Cardiomyopathy: Comment: She has cardio myopathy, secondary to coronary artery disease. Has low ejection fraction. Also has had atrial fibrillation which is now controlled after cardioversion. Actively followed. Up by Cardiology Code(s): I42.9 - Cardiomyopathy, unspecified Category: Medical Qualifiers: Cardiomyopathy type: other Qualified Code(s): I42.8 - Other cardiomyopathies Plan: As above. EF reduced to 20-25%. Repeat echo after prior cardioversion now showing EF 45-50%. Recent echo done showing EF 40-45%. The drop in EF may be related to her atrial fibrillation as she did have recurrent PAF around that time. She tells me she did have an echocardiogram at [facility]. We will work on obtaining that result. She did have SUSAN on last 2 known hospital admissions. most recent creatinine 1.73. She has been as high as 3 in the past. She is not on Andrew or Arb at this time. She is on metoprolol. (4) Essential hypertension: Code(s): I10 - Essential (primary) hypertension Category: Medical Plan: Blood pressure Running on the low side recently. Notes from the rehab facility reviewed. It could be related to her AFib. She has not had lightheadedness, presyncope, syncope, falls. (5) S/P cardiac cath: Onset Date: ~12/2020 Comment: (12/27/20 - Dr. Garcia, [facility]: Lm normal, mid LAD, proximal 60%, 2nd diag prox 75%, LCx prox stent patent, Lcx mid 65%, 1st OM 40%, RCA prox stent patent, mid RCA prox 70% - inferior/ inferolateral WMA on echo not explained by anatomy) Code(s): Z98.890 - Other specified postprocedural states Category: Surgical Plan: As above (6) S/P cardiac catheterization: Comment: Last cardiac catheterization 04/02/2023 showing mid LAD 30% stenosis, proximal circumflex stent patent, mid circumflex 80% stenosis and stent placed, RCA proximal stent patent, mid RCA 50% stenosis Code(s): Z98.890 - Other specified postprocedural states Category: Surgical Plan: Last coronary stent placed 04/02/2023, PETRA to the mid circumflex. She also has residual mid LAD stenosis, RCA stent and mid RCA stenosis. Per Dr. Lizama last note she should continue on Plavix due to the extent of her vascular disease. (7) CAD (coronary artery disease): Comment: (Hx 2 MIs 2018 & 2020 - Hx LCx & RCA stents 2019 - patent on recent 12/2020 cath) Code(s): I25.10 - Atherosclerotic heart disease of [place] coronary artery without angina pectoris Category: Medical Plan: No reports of Chest discomfort. Continue atorvastatin, metoprolol XL. Per Dr. Lizama's prior note, continue the Plavix. Labs done 12/31/2023 showed LDL 67. [place] LDL goal is less than 70. (8) Murmur: Code(s): R01.1 - Cardiac murmur, unspecified Category: Medical Plan: Heart murmur noted on examination. This is not new finding. Echocardiogram 05/28/2023 shows [id number] mitral regurgitation, normal aortic valve, mild TR. (9) Hospital discharge follow-up: Code(s): Z09 - Encounter for follow-up examination after completed treatment for conditions other than malignant neoplasm Category: Medical Plan Time spent with chart review, documentation, interview, assessment Orders: Orders Cardioversion 3 Weeks I48.19 - Other persistent atrial fibrillation Medications: Changed From metoprolol succinate ER 37.5 mg (1.5 x 25 mg) PO DAILY 90 days 135 tabs 1RF To metoprolol succinate ER 12.5 mg PO DAILY Coding Level of Care Code Est Pt Level 4 (41336) Complex EM visit Add On G2211 Diagnoses Atrial fibrillation I48.91 CHF (congestive heart failure) I50.9 Other cardiomyopathy I42.8 Cardiomyopathy type: other Essential hypertension I10 S/P cardiac cath Z98.890 CAD (coronary artery disease) I25.10 Murmur R01.1 Hospital discharge follow-up Z09 CPT Codes EKG - CPT: [id number], Complete ([id number]) Time Spent (min) 36
== END 2024-09-16 15:52 | disposition home or self-care (01) ==
PROVIDERS: PCP Internal Medicine; Visit Provider Nurse Practitioner Family
DX: I48.91 Unspecified atrial fibrillation (principal); I50.9 Heart failure, unspecified; I42.8 Other cardiomyopathies; I10 Essential (primary) hypertension; Z98.890 Other specified postprocedural states; I25.10 Atherosclerotic heart disease of native coronary artery without angina pectoris; R01.1 Cardiac murmur, unspecified; Z09 Encounter for follow-up examination after completed treatment for conditions other than malignant neoplasm
CPT/HCPCS: 93010; 99214; G2211

== ENCOUNTER → 2024-09-16 14:37 | Outpatient (BNVA) | payer MEDICARE, BC, SELFPAY | PROVIDERS: PCP Internal Medicine; Visit Provider Nurse Practitioner Family | DX: Z09 Encounter for follow-up examination after completed treatment for conditions other than malignant neoplasm (principal); I25.10 Atherosclerotic heart disease of native coronary artery without angina pectoris; I48.91 Unspecified atrial fibrillation; I13.0 Hypertensive heart and chronic kidney disease with heart failure and stage 1 through stage 4 chronic kidney disease, or unspecified chronic kidney disease; I50.23 Acute on chronic systolic (congestive) heart failure; I42.8 Other cardiomyopathies; R01.1 Cardiac murmur, unspecified; N18.9 Chronic kidney disease, unspecified; Z98.890 Other specified postprocedural states; Z95.5 Presence of coronary angioplasty implant and graft | CPT/HCPCS: 93005; 99212 ==

== ENCOUNTER → 2024-10-14 11:22 | Outpatient (BNVA) | payer MEDICARE, BC, SELFPAY | PROVIDERS: PCP Internal Medicine; Visit Provider Nurse Practitioner Family | DX: R33.9 Retention of urine, unspecified (principal); Z46.6 Encounter for fitting and adjustment of urinary device; Z96.0 Presence of urogenital implants | CPT/HCPCS: 51702 ==

== ENCOUNTER → 2024-10-22 10:05 | Day surgery (SDC) | payer MEDICARE, BC, SELFPAY ==
--- OUTSIDE RECORDS SUMMARY | 2024-10-12 13:41 | XMS_ITS | Clinical Summary ---
Author Organization Unknown Care Team Providers Care Slitter Scorer Cut Off Operator Name Role Phone DODIE OTHER, LUC Unavailable Unavailab eamon BRASHER RN, LOIS Unavailable Unavailable SOBIA RECEPTION AGENT, ZANDER Unavailable Unavailabl e SCARLET PT, ELSA Unavailable Unavailable [employer] ASSEMBLER/FLORES, RUSLAN Unavailable Unav ailable TJK OT, MAHNAZ Unavailable Unavailabl e Payers Payer Name Policy Type Policy Number Effective Date Expira tion Date MEDICARE.NGS.PDGM [id number] Problems Condition Name Condition Details Condition Category Status Onset Date Resolution Date Last Treatment Date Treating Clinician Comments ACUTE KIDNEY FAILURE, UNSPECIFIED Active 2023-10 00:00: 00 UNSPECIFIED HYDRONEPHROS IS Active 2023-10 00:00: 00 NEUROMUSCULA R DYSFUNCTION OF BLADDER, UNSPECIFIED Active 2023-10 00:00: 00 ENCOUNTER FOR FITTING AND ADJUSTMENT OF URINARY DEVICE Active 2023-10 00:00: 00 MULTIPLE SCLEROSIS Active 2023-10 00:00: 00 HYP HRT AND CHR KDNY DIS W HRT FAIL AND STG 1-4/UNSP CHR KDNY Active 2023-10 00:00: 00 CHRONIC SYSTOLIC (CONGESTIVE) HEART FAILURE Active 2023-10 00:00: 00 CHRONIC KIDNEY DISEASE, STAGE 3 UNSPECIFIED Active 2023-10 00:00: 00 ANEMIA IN CHRONIC KIDNEY DISEASE Active 2023-10 00:00: 00 PAROXYSMAL ATRIAL FIBRILLATION Active 2023-10 00:00: 00 CHRONIC OBSTRUCTIVE PULMONARY DISEASE, UNSPECIFIED Active 2023-10 00:00: 00 CARDIOMYOPAT HY, UNSPECIFIED Active 2023-10 00:00: 00 MAJOR DEPRESSIVE DISORDER, RECURRENT, UNSPECIFIED Active 2023-10 00:00: 00 HYPOTHYROIDI SM, UNSPECIFIED Active 2023-10 00:00: 00 SOLITARY PULMONARY NODULE Active 2023-10 00:00: 00 ATHEROSCLERO SIS OF RENAL ARTERY Active 2023-10 00:00: 00 GASTRO-ESOPH AGEAL REFLUX 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 2023-10 00:00: 00 GROUP HOME (CURRENT) USE OF ANTICOAGULAN TS Active 2023-10 00:00: 00 GM MOBILE (CURRENT) USE OF ANTITHROMBOT ICS/ANTIPLAT ELETS Active 2023-10 00:00: 00 PERSONAL HISTORY OF NICOTINE DEPENDENCE Active 2023-10 00:00: 00 ACQUIRED ABSENCE OF OTHER SPECIFIED PARTS OF DIGESTIVE TRACT Active 2023-10 00:00: 00 PRESENCE OF CORONARY ANGIOPLASTY IMPLANT AND GRAFT Active 2023-10 00:00: 00 PRESENCE OF UROGENITAL IMPLANTS Active 2023-10 00:00: 00 Allergies, Adverse Reactions, Alerts Allergy Name Allergy Type Status Severity Reaction(s) Onset Date Inactive Date Treating Clinician Comments CODEINE Propensity to adverse reactions Active 2023-10 11:50: 28 POTASSIUM Propensity to adverse reactions Active 2023-10 11:50: 36 Medications Ordered Medication Name Filled Medication Name Start Date Stop Date Current Medication? Ordering Clinician Indication Dosage Frequency Signature (SIG) Comments Components atorvastati n 80 mg tablet 11-07 00:00: 00 04-08 23:59 :00 No [id number] HYPERLIPIDE DANNY 1 tablet DAILY 1 tablet DAILY (route: oral) Med Classific ation: Cardiovas cular Therapy Agents oxybutynin chloride 5 mg tablet 2022-10 00:00: 00 11-07 00:00 :00 No [id number] INCONTINENC E 1 tablet DAILY 1 tablet DAILY (route: oral) Med Classific ation: Genitouri nary Therapy metoprolol succinate ER 50 mg tablet,exte nded release 24 hr 11-07 00:00: 00 04-08 23:59 :00 No [id number] HTN 1 tablet DAILY 1 tablet DAILY (route: oral) Med Classific ation: Cardiovas cular Therapy Agents clopidogrel 75 mg tablet 11-07 00:00: 00 04-08 23:59 :00 No [id number] AFIB 1 tablet DAILY 1 tablet DAILY (route: oral) Med Classific ation: Hematolog ical Agents Avonex 30 mcg/0.5 mL intramuscul ar pen kit 2022-10 00:00: 00 11-07 00:00 :00 No [id number] MS 1 kit WEEKLY 1 kit WEEKLY (route: intramuscu lar) Med Classific ation: Multiple Sclerosis Agents Eliquis 5 mg tablet 2022-10 00:00: 00 04-08 23:59 :00 No [id number] AFIB 1 tablet 2 TIMES DAILY 1 tablet 2 TIMES DAILY (route: oral) Med Classific ation: Hematolog ical Agents furosemide 40 mg tablet 11-07 00:00: 00 04-08 23:59 :00 No [id number] HF 1 tablet DAILY 1 tablet DAILY (route: oral) Med Classific ation: Cardiovas cular Therapy Agents levothyroxi ne 50 mcg tablet 11-07 00:00: 00 04-08 23:59 :00 No [id number] HYPOTHYROID 1 tablet DAILY 1 tablet DAILY (route: oral) Med Classific ation: Endocrine Paxil 40 mg tablet 2022-10 00:00: 00 11-07 00:00 :00 No [id number] DEPRESSION 1 tablet DAILY 1 tablet DAILY (route: oral) Med Classific ation: Central Nervous System Agents amiodarone 200 mg tablet 11-07 00:00: 00 04-08 23:59 :00 No [id number] AFIB 1 tablet DAILY 1 tablet DAILY (route: oral) Med Classific ation: Cardiovas cular Therapy Agents metoprolol succinate ER 50 mg tablet,exte nded release 24 hr 2022-10 00:00: 00 11-07 00:00 :00 No [id number] HTN Per instruc tions DAILY Per instructio ns DAILY (route: oral) Med Classific ation: Cardiovas cular Therapy Agents Senna Lax 8.6 mg tablet 2022-10 00:00: 00 11-07 00:00 :00 No [id number] CONSTIPATIO N Per instruc tions DAILY Per instructio ns DAILY (route: oral) Med Classific ation: Gastroint estinal Therapy Agents tamsulosin 0.4 mg capsule 2022-10 00:00: 00 11-07 00:00 :00 No [id number] URINARY RETENSION Per instruc tions DAILY Per instructio ns DAILY (route: oral) Med Classific ation: Genitouri nary Therapy acetaminoph en 325 mg tablet 11-07 00:00: 00 04-08 23:59 :00 No [id number] PAIN 2 tablet EVERY 4 HOURS 2 tablet EVERY 4 HOURS (route: oral) Med Classific ation: Analgesic , Anti-infl ammatory or Antipyret ic AirDuo RespiClick 113 mcg-14 mcg/actuati on breath activated 11-07 00:00: 00 04-08 23:59 :00 No [id number] COPD 1 puff 2 TIMES DAILY 1 puff 2 TIMES DAILY (route: inhalation ) Med Classific ation: Respirato ry Therapy Agents albuterol sulfate HFA 90 mcg/actuati on aerosol inhaler 11-07 00:00: 00 04-08 23:59 :00 No [id number] SOB OR WHEEZING 2 puff NEEDED 2 puff NEEDED (route: inhalation ) Med Classific ation: Respirato ry Therapy Agents Avonex 30 mcg/0.5 mL intramuscul ar syringe kit 11-07 00:00: 00 04-08 23:59 :00 No [id number] MS 30 mcg WEEKLY 30 mcg WEEKLY (route: intramuscu lar) Med Classific ation: Multiple Sclerosis Agents ferrous sulfate 325 mg (65 mg iron) tablet 11-07 00:00: 00 04-08 23:59 :00 No [id number] IRON SUPPLEMENT 1 tablet DAILY 1 tablet DAILY (route: oral) Med Classific ation: Electroly te Balance-N utritiona l Products magnesium 400 mg (as magnesium oxide) tablet 11-07 00:00: 00 04-08 23:59 :00 No [id number] SUPPLEMENT 1 tablet 2 TIMES DAILY 1 tablet 2 TIMES DAILY (route: oral) Med Classific ation: Electroly te Balance-N utritiona l Products melatonin 5 mg tablet 11-07 00:00: 00 04-08 23:59 :00 No [id number] SLEEP AID 2 tablet BEDTIME 2 tablet BEDTIME (route: oral) Med Classific ation: Central Nervous System Agents omeprazole 20 mg tablet,osmar yed release 11-07 00:00: 00 04-08 23:59 :00 No [id number] GERD 1 tablet DAILY 1 tablet DAILY (route: oral) Med Classific ation: Gastroint estinal Therapy Agents paroxetine 40 mg tablet 11-07 00:00: 00 04-08 23:59 :00 No [id number] DEPRESSION AND ANXIETY 1 tablet BEDTIME 1 tablet BEDTIME (route: oral) Med Classific ation: Central Nervous System Agents Vitamin B-12 1,000 mcg tablet 11-07 00:00: 00 04-08 23:59 :00 No [id number] VITAMIN SUPPLEMENT 1 tablet DAILY 1 tablet DAILY (route: oral) Med Classific ation: Electroly te Balance-N utritiona l Products Vitamin D3 25 mcg (1,000 unit) capsule 11-07 00:00: 00 04-08 23:59 :00 No [id number] VITAMIN SUPPLEMENT 1 capsule DAILY 1 capsule DAILY (route: oral) Med Classific ation: Electroly te Balance-N utritiona l Products potassium chloride ER 20 mEq tablet,exte nded release 03-28 00:00: 00 05-13 00:00 :00 No [id number] Per instruc tions Per instructio ns (route: oral) Med Classific ation: Electroly te Balance-N utritiona l Products albuterol sulfate HFA 90 mcg/actuati on aerosol inhaler 05-13 00:00: 00 08-04 23:59 :00 No [id number] WHEEZE 2 puff EVERY 4 HOURS 2 puff EVERY 4 HOURS (route: inhalation ) Med Classific ation: Respirato ry Therapy Agents amiodarone 200 mg tablet 05-13 00:00: 00 08-04 23:59 :00 No [id number] HTN 1 tablet DAILY 1 tablet DAILY (route: oral) Med Classific ation: Cardiovas cular Therapy Agents atorvastati n 80 mg tablet 05-13 00:00: 00 08-04 23:59 :00 No [id number] CHOLESTEROL 1 tablet DAILY 1 tablet DAILY (route: oral) Med Classific ation: Cardiovas cular Therapy Agents cholecalcif hitesh (vitamin D3) 1,250 mcg (50,000 unit) tablet 05-13 00:00: 00 08-04 23:59 :00 No [id number] SUPPLEMENT 1 tablet DAILY 1 tablet DAILY (route: oral) Med Classific ation: Electroly te Balance-N utritiona l Products Eliquis 5 mg tablet 05-13 00:00: 00 08-04 23:59 :00 No [id number] CLOT 1 tablet 2 TIMES DAILY 1 tablet 2 TIMES DAILY (route: oral) Med Classific ation: Hematolog ical Agents fluticasone 113 mcg-salmete rol 14 mcg/actuati on breath activated powdr 05-13 00:00: 00 08-04 23:59 :00 No [id number] COPD 1 puff 2 TIMES DAILY 1 puff 2 TIMES DAILY (route: inhalation ) Med Classific ation: Respirato ry Therapy Agents furosemide 40 mg tablet 05-13 00:00: 00 08-04 23:59 :00 No [id number] EDEMA 1 tablet DAILY 1 tablet DAILY (route: oral) Med Classific ation: Cardiovas cular Therapy Agents lactulose 10 gram/15 mL (15 mL) oral solution 05-13 00:00: 00 08-04 23:59 :00 No [id number] CONSTIPATIO N 15 mL DAILY 15 mL DAILY (route: oral) Med Classific ation: Gastroint estinal Therapy Agents levothyroxi ne 50 mcg capsule 05-13 00:00: 00 08-04 23:59 :00 No [id number] THYROID 1 capsule DAILY 1 capsule DAILY (route: oral) Med Classific ation: Endocrine melatonin 10 mg tablet 05-13 00:00: 00 08-04 23:59 :00 No [id number] MELATONIN 1 tablet DAILY 1 tablet DAILY (route: oral) Med Classific ation: Central Nervous System Agents metoprolol succinate ER 25 mg tablet,exte nded release 24 hr 05-13 00:00: 00 08-04 23:59 :00 No [id number] HTN 1 tablet DAILY 1 tablet DAILY (route: oral) Med Classific ation: Cardiovas cular Therapy Agents ondansetron 4 mg disintegrat ing tablet 05-13 00:00: 00 08-04 23:59 :00 No [id number] NAUSEA 1 tablet EVERY 8 HOURS 1 tablet EVERY 8 HOURS (route: oral) Med Classific ation: Gastroint estinal Therapy Agents paroxetine 40 mg tablet 05-13 00:00: 00 08-04 23:59 :00 No [id number] MOOD 1 tablet DAILY 1 tablet DAILY (route: oral) Med Classific ation: Central Nervous System Agents Plavix 75 mg tablet 05-13 00:00: 00 08-04 23:59 :00 No [id number] CLOT 1 tablet DAILY 1 tablet DAILY (route: oral) Med Classific ation: Hematolog ical Agents Senna Lax 8.6 mg tablet 05-13 00:00: 00 08-04 23:59 :00 No [id number] CONSTIPATIO N 1 tablet 2 TIMES DAILY 1 tablet 2 TIMES DAILY (route: oral) Med Classific ation: Gastroint estinal Therapy Agents Tylenol Extra Strength 500 mg tablet 05-13 00:00: 00 08-04 23:59 :00 No [id number] PAIN 2 tablet 3 TIMES DAILY 2 tablet 3 TIMES DAILY (route: oral) Med Classific ation: Analgesic , Anti-infl ammatory or Antipyret ic Vitamin B-12 1,000 mcg tablet 05-13 00:00: 00 08-04 23:59 :00 No [id number] SUPPLEMENT 1 tablet DAILY 1 tablet DAILY (route: oral) Med Classific ation: Electroly te Balance-N utritiona l Products nitrofurant oin macrocrysta l 100 mg capsule 05-21 00:00: 00 06-04 23:59 :00 No [id number] UTI 1 capsule DAILY 1 capsule DAILY (route: oral) Med Classific ation: Genitouri nary Therapy terazosin 1 mg capsule 05-21 00:00: 00 08-04 23:59 :00 No [id number] BLADDER SPASMS 1 capsule BEDTIME 1 capsule BEDTIME (route: oral) Med Classific ation: Cardiovas cular Therapy Agents ciprofloxac in 250 mg tablet 05-25 00:00: 00 05-31 23:59 :00 No [id number] INFECTION 1 tablet 2 TIMES DAILY 1 tablet 2 TIMES DAILY (route: oral) Med Classific ation: Anti-Infe ctive Agents metoprolol succinate ER 25 mg tablet,exte nded release 24 hr 2023-10 00:00: 00 09-02 14:41 :11 No [id number] HTN 0.5 tablet DAILY 0.5 tablet DAILY (route: oral) Med Classific ation: Cardiovas cular Therapy Agents Eliquis 5 mg tablet 07-09 00:00: 00 09-02 14:41 :11 No [id number] AFIB 1 tablet 2 TIMES DAILY 1 tablet 2 TIMES DAILY (route: oral) Med Classific ation: Hematolog ical Agents levothyroxi ne 50 mcg tablet 2023-10 00:00: 00 Yes [id number] THYROID 1 tablet DAILY 1 tablet DAILY (route: oral) Med Classific ation: Endocrine paroxetine 40 mg tablet 2023-10 00:00: 00 Yes [id number] DEPRESSION 1 tablet DAILY 1 tablet DAILY (route: oral) Med Classific ation: Central Nervous System Agents acetaminoph en 325 mg tablet 2023-10 00:00: 00 Yes [id number] PAIN 2 tablet EVERY 4 HOURS 2 tablet EVERY 4 HOURS (route: oral) Med Classific ation: Analgesic , Anti-infl ammatory or Antipyret ic amiodarone 200 mg tablet 2023-10 00:00: 00 Yes [id number] HTN 1 tablet DAILY 1 tablet DAILY (route: oral) Med Classific ation: Cardiovas cular Therapy Agents ascorbic acid (vitamin C) 500 mg tablet 2023-10 00:00: 00 Yes [id number] SUPPLEMENT 1 tablet DAILY 1 tablet DAILY (route: oral) Med Classific ation: Electroly te Balance-N utritiona l Products atorvastati n 80 mg tablet 2023-10 00:00: 00 Yes [id number] HLD 1 tablet DAILY 1 tablet DAILY (route: oral) Med Classific ation: Cardiovas cular Therapy Agents cholecalcif hitesh (vitamin D3) 25 mcg (1,000 unit) tablet 2023-10 00:00: 00 Yes [id number] SUPPLEMENT 1 tablet DAILY 1 tablet DAILY (route: oral) Med Classific ation: Electroly te Balance-N utritiona l Products clopidogrel 75 mg tablet 2023-10 00:00: 00 Yes [id number] BLOOD CLOT PREVENTION 1 tablet DAILY 1 tablet DAILY (route: oral) Med Classific ation: Hematolog ical Agents Colace 100 mg capsule 2023-10 00:00: 00 Yes [id number] STOOL SOFTENER 1 capsule 2 TIMES DAILY 1 capsule 2 TIMES DAILY (route: oral) Med Classific ation: Gastroint estinal Therapy Agents fluticasone 100 mcg-salmete rol 50 mcg/dose blistr powdr for inhalation 2023-10 00:00: 00 Yes [id number] COPD 1 inhalat ion DAILY 1 inhalation DAILY (route: inhalation ) Med Classific ation: Respirato ry Therapy Agents furosemide 40 mg tablet 2023-10 00:00: 00 Yes [id number] EDEMA 1 tablet DAILY 1 tablet DAILY (route: oral) Med Classific ation: Cardiovas cular Therapy Agents melatonin 3 mg tablet 2023-10 00:00: 00 Yes [id number] SLEEP 1 tablet DAILY 1 tablet DAILY (route: oral) Med Classific ation: Central Nervous System Agents pantoprazol e 40 mg tablet,osmar yed release 2023-10 00:00: 00 Yes [id number] GERD 1 tablet DAILY 1 tablet DAILY (route: oral) Med Classific ation: Gastroint estinal Therapy Agents tamsulosin 0.4 mg capsule 2023-10 00:00: 00 Yes [id number] URINE RETENTION 1 capsule DAILY 1 capsule DAILY (route: oral) Med Classific ation: Genitouri nary Therapy terazosin 1 mg capsule 2023-10 00:00: 00 Yes [id number] HTN 1 capsule DAILY 1 capsule DAILY (route: oral) Med Classific ation: Cardiovas cular Therapy Agents Vital Signs Vital Name Observation Time Observation Value Commen ts Temperature 2024-10-06 14:46:00.000 97 [degF] Temperature 2024-09-29 14:43:00.000 97.2 [degF] Temperature 2024-09-28 13:08:00.000 96.7 [degF] Temperature 2024-09-24 12:27:00.000 96.1 [degF] Temperature 2024-09-21 15:02:00.000 97.5 [degF] Temperature 2024-09-20 14:27:00.000 97.5 [degF] BMI (%) 2024-09-20 14:27:00.000 21 kg/m2 Height 2024-09-20 14:27:00.000 66 [in_us] Pulse 2024-10-06 14:46:00.000 78 /min Pulse 2024-09-29 14:43:00.000 80 /min Pulse 2024-09-28 13:08:00.000 88 /min Pulse 2024-09-24 12:27:00.000 88 /min Pulse 2024-09-21 15:02:00.000 72 /min Pulse 2024-09-20 14:27:00.000 80 /min O2 Saturation (%) 2024-10-06 14:46:00.000 98 % O2 Saturation (%) 2024-09-28 13:08:00.000 99 % O2 Saturation (%) 2024-09-24 12:27:00.000 100 % O2 Saturation (%) 2024-09-21 15:02:00.000 99 % O2 Saturation (%) 2024-09-20 14:27:00.000 99 % Respirations 2024-10-06 14:46:00.000 16 /min Respirations 2024-09-29 14:43:00.000 18 /min Respirations 2024-09-28 13:08:00.000 18 /min Respirations 2024-09-24 12:27:00.000 18 /min Respirations 2024-09-21 15:02:00.000 18 /min Respirations 2024-09-20 14:27:00.000 18 /min Weight (lbs) 2024-10-06 14:47:00.000 130 [lb_av] Weight (lbs) 2024-09-29 14:43:00.000 130 [lb_av] Weight (lbs) 2024-09-20 14:27:00.000 130.2 [lb_av] Systolic Blood Pressure 2024-10-06 14:46:00.000 126 mm [Hg] Systolic Blood Pressure 2024-09-29 14:43:00.000 120 mm [Hg] Systolic Blood Pressure 2024-09-28 13:08:00.000 100 mm [Hg] Systolic Blood Pressure 2024-09-24 12:27:00.000 100 mm [Hg] Systolic Blood Pressure 2024-09-21 15:02:00.000 132 mm [Hg] Systolic Blood Pressure 2024-09-20 14:27:00.000 146 mm [Hg] Diastolic Blood Pressure 2024-10-06 14:46:00.000 78 mm [Hg] Diastolic Blood Pressure 2024-09-29 14:43:00.000 60 mm [Hg] Diastolic Blood Pressure 2024-09-28 13:08:00.000 70 mm [Hg] Diastolic Blood Pressure 2024-09-24 12:27:00.000 60 mm [Hg] Diastolic Blood Pressure 2024-09-21 15:02:00.000 70 mm [Hg] Diastolic Blood Pressure 2024-09-20 14:27:00.000 80 mm [Hg] Plan of Treatment Planned Activity Planned Date Details Comments Future Scheduled Test PHYSICAL T HERAPIST TO EVALUATE TREAT INDICATED [code = PHYSICAL THERAPIST TO EVALUATE TREAT INDICATED ] Future Scheduled Test OCCUPATION AL THERAPIST TO EVALUATE TREAT INDICATED [code = OCCUPATIONAL THERAPIST TO EVALUATE TREAT INDICATED ] Future Scheduled Test MEDICATION MANAGEMENT; RN/RECEPTION AGENT/VP PACKAGING TO REVIEW MEDICATIONS FOR INTERACTIONS, EFFECTIVENESS OF DRUG THERAPY, AND SIGNS/SYMPTOMS OF ADVERSE REACTIONS. MAY INSTRUCT AND REINFORCE MEDICATION TEACHING RELATED TO THE USE OF MEDICATIONS, DOSAGE, FREQUENCY, PURPOSE, SIDE EFFECTS, AND TO REPORT COMPLICATIONS. [code = MEDICATION MANAGEMENT; RN/RECEPTION AGENT/VP PACKAGING TO REVIEW MEDICATIONS FOR INTERACTIONS, EFFECTIVENESS OF DRUG THERAPY, AND SIGNS/SYMPTOMS OF ADVERSE REACTIONS. MAY INSTRUCT AND REINFORCE MEDICATION TEACHING RELATED TO THE USE OF MEDICATIONS, DOSAGE, FREQUENCY, PURPOSE, SIDE EFFECTS, AND TO REPORT COMPLICATIONS.] Future Scheduled Test RESPIRATOR Y SYSTEM MANAGEMENT; RN TO ASSESS AND TEACH, RECEPTION AGENT/VP PACKAGING TO OBSERVE AND TEACH RELATED TO ALTERED RESPIRATORY STATUS TO MINIMIZE COMPLICATIONS AND REDUCE HOSPITALIZATION. [code = RESPIRATORY SYSTEM MANAGEMENT; RN TO ASSESS AND TEACH, RECEPTION AGENT/VP PACKAGING TO OBSERVE AND TEACH RELATED TO ALTERED RESPIRATORY STATUS TO MINIMIZE COMPLICATIONS AND REDUCE HOSPITALIZATION.] Future Scheduled Test COPD MANAG EMENT; RN TO ASSESS AND TEACH, RECEPTION AGENT/VP PACKAGING TO OBSERVE AND TEACH SIGNS/SYMPTOMS OF COPD EXACERBATION AND PROVIDE EARLY INTERVENTIONS TO MINIMIZE RISK OF HOSPITALIZATION. RN/RECEPTION AGENT/VP PACKAGING TO INSTRUCT ON SELF-CARE MANAGEMENT INCLUDING BREATHING TECHNIQUES, AIRWAY CLEARANCE, AND PROPER USE OF COPD MEDICATIONS. RN TO ASSESS AND TEACH, RECEPTION AGENT/VP PACKAGING TO OBSERVE AND TEACH PATIENT/CAREGIVER ABILITY TO MONITOR AND RECORD VITAL SIGNS INCLUDING PULSE OXIMETRY AND BLOOD PRESSURE. PULSE OXIMETER AND BP MONITOR TO BE PROVIDED IF NEEDED [code = COPD MANAGEMENT; RN TO ASSESS AND TEACH, RECEPTION AGENT/VP PACKAGING TO OBSERVE AND TEACH SIGNS/SYMPTOMS OF COPD EXACERBATION AND PROVIDE EARLY INTERVENTIONS TO MINIMIZE RISK OF HOSPITALIZATION. RN/RECEPTION AGENT/VP PACKAGING TO INSTRUCT ON SELF-CARE MANAGEMENT INCLUDING BREATHING TECHNIQUES, AIRWAY CLEARANCE, AND PROPER USE OF COPD MEDICATIONS. RN TO ASSESS AND TEACH, RECEPTION AGENT/VP PACKAGING TO OBSERVE AND TEACH PATIENT/CAREGIVER ABILITY TO MONITOR AND RECORD VITAL SIGNS INCLUDING PULSE OXIMETRY AND BLOOD PRESSURE. PULSE OXIMETER AND BP MONITOR TO BE PROVIDED IF NEEDED] Future Scheduled Test FALL REDUC TION MANAGEMENT; RN TO ASSESS AND TEACH, RECEPTION AGENT/VP PACKAGING TO OBSERVE AND TEACH ON EDUCATION AND INTERVENTION TO IDENTIFY FALL RISK FACTORS SUCH MEDICATIONS THAT MAY CAUSE DIZZINESS, CHRONIC DISEASES, PSYCHOLOGICAL FACTORS, AND EMPOWER/EDUCATE PATIENT/CAREGIVER TO MINIMIZE FALL RISK. [code = FALL REDUCTION MANAGEMENT; RN TO ASSESS AND TEACH, RECEPTION AGENT/VP PACKAGING TO OBSERVE AND TEACH ON EDUCATION AND INTERVENTION TO IDENTIFY FALL RISK FACTORS SUCH MEDICATIONS THAT MAY CAUSE DIZZINESS, CHRONIC DISEASES, PSYCHOLOGICAL FACTORS, AND EMPOWER/EDUCATE PATIENT/CAREGIVER TO MINIMIZE FALL RISK.] Future Scheduled Test GENITOURIN [id number] MANAGEMENT; RN TO ASSESS AND TEACH, RECEPTION AGENT/VP PACKAGING TO OBSERVE AND TEACH RELATED TO ALTERED GENITOURINARY STATUS TO MINIMIZE COMPLICATIONS AND REDUCE HOSPITALIZATION. [code = GENITOURINARY MANAGEMENT; RN TO ASSESS AND TEACH, RECEPTION AGENT/VP PACKAGING TO OBSERVE AND TEACH RELATED TO ALTERED GENITOURINARY STATUS TO MINIMIZE COMPLICATIONS AND REDUCE HOSPITALIZATION.] Future Scheduled Test INDWELLING URINARY CATHETER MANAGEMENT; RN/RECEPTION AGENT/VP PACKAGING TO INSTRUCT PATIENT / CAREGIVER ON INDWELLING URINARY CATHETER MANAGEMENT INCLUDING CARE OF CATHETER, SIGN AND SYMPTOMS OF COMPLICATIONS, PERINEAL CARE, TUBE AND BAG PLACEMENT, PREVENTION OF INFECTION AND SKIN BREAKDOWN. [code = INDWELLING URINARY CATHETER MANAGEMENT; RN/RECEPTION AGENT/VP PACKAGING TO INSTRUCT PATIENT / CAREGIVER ON INDWELLING URINARY CATHETER MANAGEMENT INCLUDING CARE OF CATHETER, SIGN AND SYMPTOMS OF COMPLICATIONS, PERINEAL CARE, TUBE AND BAG PLACEMENT, PREVENTION OF INFECTION AND SKIN BREAKDOWN.] Future Scheduled Test RN TO OBSE RVE, ASSESS, EVALUATE, AND DEVELOP AN INDIVIDUALIZED PLAN OF CARE. AGENCY MAY ACCEPT ORDERS FROM CONSULTING PHYSICIANS DR TERRY GUADARRAMA, DR LUO. RN TO OBSERVE AND ASSESS, RECEPTION AGENT/VP PACKAGING TO OBSERVE FOR RISK FOR FALLS AND INSTRUCT IN FALL PREVENTION, HOME SAFETY, MEDICATION MANAGEMENT, INFECTION PREVENTION, AND NUTRITION MANAGEMENT. RN/RECEPTION AGENT/VP PACKAGING NURSE MAY PERFORM O2 SATURATION LEVEL ON ADMISSION AND PRN FOR SOB FOR RN TO ASSESS/RECEPTION AGENT TO OBSERVE PATIENT, WITH NOTIFICATION TO THE PHYSICIAN IF SATURATION IS 90% IN THE ABSENCE OF MORE SPECIFIC PARAMETERS FROM THE PHYSICIAN. AGENCY MAY PERFORM A RESUMPTION OF CARE VISIT FOLLOWING ANY HOSPITAL ADMISSION. RN/RECEPTION AGENT/VP PACKAGING TO MONITOR CO-MORBID CONDITIONS LISTED ON THE PLAN OF CARE AND ANY NEW CONDITIONS THAT PRESENT THEMSELVES DURING THIS EPISODE TO IDENTIFY CHANGES AND INTERVENE TO MINIMIZE COMPLICATIONS. [code = RN TO OBSERVE, ASSESS, EVALUATE, AND DEVELOP AN INDIVIDUALIZED PLAN OF CARE. AGENCY MAY ACCEPT ORDERS FROM CONSULTING PHYSICIANS DR VALERIO VERDE. RN TO OBSERVE AND ASSESS, RECEPTION AGENT/VP PACKAGING TO OBSERVE FOR RISK FOR FALLS AND INSTRUCT IN FALL PREVENTION, HOME SAFETY, MEDICATION MANAGEMENT, INFECTION PREVENTION, AND NUTRITION MANAGEMENT. RN/RECEPTION AGENT/VP PACKAGING NURSE MAY PERFORM O2 SATURATION LEVEL ON ADMISSION AND PRN FOR SOB FOR RN TO ASSESS/RECEPTION AGENT TO OBSERVE PATIENT, WITH NOTIFICATION TO THE PHYSICIAN IF SATURATION IS 90% IN THE ABSENCE OF MORE SPECIFIC PARAMETERS FROM THE PHYSICIAN. AGENCY MAY PERFORM A RESUMPTION OF CARE VISIT FOLLOWING ANY HOSPITAL ADMISSION. RN/RECEPTION AGENT/VP PACKAGING TO MONITOR CO-MORBID CONDITIONS LISTED ON THE PLAN OF CARE AND ANY NEW CONDITIONS THAT PRESENT THEMSELVES DURING THIS EPISODE TO IDENTIFY CHANGES AND INTERVENE TO MINIMIZE COMPLICATIONS.] Future Scheduled Test PAIN MANAG EMENT; RN TO ASSESS AND TEACH, VP PACKAGING/RECEPTION AGENT TO OBSERVE AND TEACH AND PROVIDE EDUCATION ON PAIN MANAGEMENT TECHNIQUES. [code = PAIN MANAGEMENT; RN TO ASSESS AND TEACH, VP PACKAGING/RECEPTION AGENT TO OBSERVE AND TEACH AND PROVIDE EDUCATION ON PAIN MANAGEMENT TECHNIQUES.] Future Scheduled Test RN/RECEPTION AGENT/VP PACKAGING TO PERFORM/TEACH PATIENT/CAREGIVER WOUND CARE TO SKIN TEAR LEFT ARM. MONITOR STERI STRIPS FOR SIGNS OR SYMPTOMS OF INFECTION. COVER WITH BORDER GAUZE NEEDED [code = RN/RECEPTION AGENT/VP PACKAGING TO PERFORM/TEACH PATIENT/CAREGIVER WOUND CARE TO SKIN TEAR LEFT ARM. MONITOR STERI STRIPS FOR SIGNS OR SYMPTOMS OF INFECTION. COVER WITH BORDER GAUZE NEEDED] Future Scheduled Test PRN VISITS ; NUMBER OF RN/RECEPTION AGENT/VP PACKAGING VISITS: RN/RECEPTION AGENT/VP PACKAGING TO PERFORM: GENITOURINARY ASSESSMENT FOR THE FOLLOWING REASONS: GENITOURINARY COMPLICATIONS [code = PRN VISITS; NUMBER OF RN/RECEPTION AGENT/VP PACKAGING VISITS: RN/RECEPTION AGENT/VP PACKAGING TO PERFORM: GENITOURINARY ASSESSMENT FOR THE FOLLOWING REASONS: GENITOURINARY COMPLICATIONS ] Future Scheduled Test RISK FOR H OSPITALIZATION; RN TO ASSESS/TEACH, VP PACKAGING/RECEPTION AGENT TO OBSERVE/TEACH PATIENT/CAREGIVER ON RISK FOR HOSPITALIZATION/EMERGENCY ROOM VISITS, TEACH SIGNS AND SYMPTOMS THAT PUT PATIENT AT RISK, WHEN TO NOTIFY NURSE/PHYSICIAN OF COMPLICATIONS/DECLINE, AND WHEN TO CALL 911. [code = RISK FOR HOSPITALIZATION; RN TO ASSESS/TEACH, VP PACKAGING/RECEPTION AGENT TO OBSERVE/TEACH PATIENT/CAREGIVER ON RISK FOR HOSPITALIZATION/EMERGENCY ROOM VISITS, TEACH SIGNS AND SYMPTOMS THAT PUT PATIENT AT RISK, WHEN TO NOTIFY NURSE/PHYSICIAN OF COMPLICATIONS/DECLINE, AND WHEN TO CALL 911.] Future Scheduled Test CARDIOVASC ULAR SYSTEM; RN TO ASSESS/TEACH, RECEPTION AGENT/VP PACKAGING TO OBSERVE/TEACH RELATED TO ALTERED CARDIOVASCULAR STATUS TO MINIMIZE COMPLICATIONS AND REDUCE HOSPITALIZATION. [code = CARDIOVASCULAR SYSTEM; RN TO ASSESS/TEACH, RECEPTION AGENT/VP PACKAGING TO OBSERVE/TEACH RELATED TO ALTERED CARDIOVASCULAR STATUS TO MINIMIZE COMPLICATIONS AND REDUCE HOSPITALIZATION.] Future Scheduled Test HYPERTENSI ON MANAGEMENT; RN TO ASSESS AND TEACH, RECEPTION AGENT/VP PACKAGING TO OBSERVE AND TEACH WARNING SIGNS AND SYMPTOMS TO AVOID HOSPITALIZATION. [code = HYPERTENSION MANAGEMENT; RN TO ASSESS AND TEACH, RECEPTION AGENT/VP PACKAGING TO OBSERVE AND TEACH WARNING SIGNS AND SYMPTOMS TO AVOID HOSPITALIZATION.] Future Scheduled Test ARRHYTHMIA MANAGEMENT; RN TO ASSESS AND TEACH, RECEPTION AGENT/VP PACKAGING TO OBSERVE AND TEACH WARNING SIGNS AND SYMPTOMS TO AVOID HOSPITALIZATION. [code = ARRHYTHMIA MANAGEMENT; RN TO ASSESS AND TEACH, RECEPTION AGENT/VP PACKAGING TO OBSERVE AND TEACH WARNING SIGNS AND SYMPTOMS TO AVOID HOSPITALIZATION.] Future Scheduled Test AGENCY MAY PERFORM A RESUMPTION OF CARE VISIT FOLLOWING ANY HOSPITAL ADMISSION. OT TO EVALUATE, OBSERVE / ASSESS, AND MONITOR, JUNITO TO OBSERVE AND MONITOR, PROVIDE SKILLED THERAPEUTIC INTERVENTION, ACTIVITY, EDUCATION, AND TRAINING TO ADDRESS; DRESSING (OT/ELECTRONICS ASSEMBLER) ACTIVITIES OF DAILY LIVING (OT/ELECTRONICS ASSEMBLER) TOILET TRANSFER (OT/JUNITO) BATH/SHOWER TRANSFER (OT/JUNITO) HOME ACTIVITY / EXERCISE PROGRAM (OT/JUNITO) ENERGY CONSERVATION/ACTIVITY DEMAND (OT/ELECTRONICS ASSEMBLER) OT/ELECTRONICS ASSEMBLER TO MONITOR AND EDUCATE ON OXYGEN SATURATION DURING ADLS/IADLS, NOTIFY PHYSICIAN AND/OR THE RN CLINICAL SECONDARY TEACHER FOR PHYSICIAN NOTIFICATION AND IF O2 SATS BELOW 90% AFTER 10 MIN OF REST. OT/JUNITO MAY EDUCATE ON PAIN MANAGEMENT CLINICALLY INDICATED, INCLUDING NON-PHARMACOLOGICAL PAIN REDUCTION TECHNIQUES AND USE OF CRYOTHERAPY OR HEAT UP TO 20 MIN AT A TIME FOR PAIN MANAGEMENT TO GENERAL PAIN OT / ELECTRONICS ASSEMBLER TO IDENTIFY FALL RISK FACTORS; EDUCATE THE PATIENT/CAREGIVER ON WAYS TO REDUCE FALL RISK FACTORS AND ESTABLISH HOME EXERCISE PROGRAM TO MINIMIZE FALL RISK. MAY TEACH THE PATIENT FLOOR RECOVERY WHEN CLINICALLY APPROPRIATE. [code = AGENCY MAY PERFORM A RESUMPTION OF CARE VISIT FOLLOWING ANY HOSPITAL ADMISSION. OT TO EVALUATE, OBSERVE / ASSESS, AND MONITOR, JUNITO TO OBSERVE AND MONITOR, PROVIDE SKILLED THERAPEUTIC INTERVENTION, ACTIVITY, EDUCATION, AND TRAINING TO ADDRESS; DRESSING (OT/ELECTRONICS ASSEMBLER) ACTIVITIES OF DAILY LIVING (OT/ELECTRONICS ASSEMBLER) TOILET TRANSFER (OT/ELECTRONICS ASSEMBLER) BATH/SHOWER TRANSFER (OT/JUNITO) HOME ACTIVITY / EXERCISE PROGRAM (OT/ELECTRONICS ASSEMBLER) ENERGY CONSERVATION/ACTIVITY DEMAND (OT/JUNITO) OT/ELECTRONICS ASSEMBLER TO MONITOR AND EDUCATE ON OXYGEN SATURATION DURING ADLS/IADLS, NOTIFY PHYSICIAN AND/OR THE RN CLINICAL SECONDARY TEACHER FOR PHYSICIAN NOTIFICATION AND IF O2 SATS BELOW 90% AFTER 10 MIN OF REST. OT/ELECTRONICS ASSEMBLER MAY EDUCATE ON PAIN MANAGEMENT CLINICALLY INDICATED, INCLUDING NON-PHARMACOLOGICAL PAIN REDUCTION TECHNIQUES AND USE OF CRYOTHERAPY OR HEAT UP TO 20 MIN AT A TIME FOR PAIN MANAGEMENT TO GENERAL PAIN OT / JUNITO TO IDENTIFY FALL RISK FACTORS; EDUCATE THE PATIENT/CAREGIVER ON WAYS TO REDUCE FALL RISK FACTORS AND ESTABLISH HOME EXERCISE PROGRAM TO MINIMIZE FALL RISK. MAY TEACH THE PATIENT FLOOR RECOVERY WHEN CLINICALLY APPROPRIATE.] Future Scheduled Test AGENCY MAY PERFORM A RESUMPTION OF CARE VISIT FOLLOWING ANY HOSPITAL ADMISSION. PT TO EVALUATE, OBSERVE / ASSESS, AND MONITOR, POWERHOUSE LABORER TO OBSERVE AND MONITOR, PROVIDE SKILLED THERAPEUTIC INTERVENTION, ACTIVITY, EDUCATION, AND TRAINING TO ADDRESS; PT/POWERHOUSE LABORER TO PROVIDE GAIT TRAINING FOR IMPROVED MOBILITY AND /OR TO NORMALIZE GAIT PATTERN NEUROMUSCULAR RE-EDUCATION / BALANCE / POSTURAL CONTROL (PT) THERAPEUTIC EXERCISES AND ESTABLISHING A HOME EXERCISE PROGRAM (PT/POWERHOUSE LABORER) PT/POWERHOUSE LABORER TO PROVIDE STAIR TRAINING SIT TO/FROM STAND TRANSFERS (PT/POWERHOUSE LABORER) PT / POWERHOUSE LABORER TO MONITOR AND EDUCATE ON OXYGEN SATURATION DURING ADLS/IADLS, NOTIFY PHYSICIAN AND/OR THE RN CLINICAL SECONDARY TEACHER FOR PHYSICIAN NOTIFICATION AND IF O2 SATS BELOW PHYSICIAN ORDERED PARAMETERS AFTER 10 MIN OF REST PT / POWERHOUSE LABORER MAY EDUCATE ON PAIN MANAGEMENT CLINICALLY INDICATED, INCLUDING NON-PHARMACOLOGICAL PAIN REDUCTION TECHNIQUES PT / POWERHOUSE LABORER TO MONITOR FOR SIGNS AND SYMPTOMS OF UTI AND EDUCATE PATIENT/CAREGIVER TO MINIMIZE RISK OF DEVELOPING A UTI. PT / POWERHOUSE LABORER TO EDUCATE ON ATRIAL FIBRILLATION SELF-MANAGEMENT. PT/POWERHOUSE LABORER TO IDENTIFY FALL RISK FACTORS; EDUCATE THE PATIENT/CAREGIVER ON WAYS TO REDUCE FALL RISK FACTORS AND ESTABLISH HOME EXERCISE PROGRAM TO MINIMIZE FALL RISK. MAY TEACH THE PATIENT FLOOR RECOVERY WHEN CLINICALLY APPROPRIATE [code = AGENCY MAY PERFORM A RESUMPTION OF CARE VISIT FOLLOWING ANY HOSPITAL ADMISSION. PT TO EVALUATE, OBSERVE / ASSESS, AND MONITOR, POWERHOUSE LABORER TO OBSERVE AND MONITOR, PROVIDE SKILLED THERAPEUTIC INTERVENTION, ACTIVITY, EDUCATION, AND TRAINING TO ADDRESS; PT/POWERHOUSE LABORER TO PROVIDE GAIT TRAINING FOR IMPROVED MOBILITY AND /OR TO NORMALIZE GAIT PATTERN NEUROMUSCULAR RE-EDUCATION / BALANCE / POSTURAL CONTROL (PT) THERAPEUTIC EXERCISES AND ESTABLISHING A HOME EXERCISE PROGRAM (PT/POWERHOUSE LABORER) PT/POWERHOUSE LABORER TO PROVIDE STAIR TRAINING SIT TO/FROM STAND TRANSFERS (PT/POWERHOUSE LABORER) PT / POWERHOUSE LABORER TO MONITOR AND EDUCATE ON OXYGEN SATURATION DURING ADLS/IADLS, NOTIFY PHYSICIAN AND/OR THE RN CLINICAL SECONDARY TEACHER FOR PHYSICIAN NOTIFICATION AND IF O2 SATS BELOW PHYSICIAN ORDERED PARAMETERS AFTER 10 MIN OF REST PT / POWERHOUSE LABORER MAY EDUCATE ON PAIN MANAGEMENT CLINICALLY INDICATED, INCLUDING NON-PHARMACOLOGICAL PAIN REDUCTION TECHNIQUES PT / POWERHOUSE LABORER TO MONITOR FOR SIGNS AND SYMPTOMS OF UTI AND EDUCATE PATIENT/CAREGIVER TO MINIMIZE RISK OF DEVELOPING A UTI. PT / POWERHOUSE LABORER TO EDUCATE ON ATRIAL FIBRILLATION SELF-MANAGEMENT. PT/POWERHOUSE LABORER TO IDENTIFY FALL RISK FACTORS; EDUCATE THE PATIENT/CAREGIVER ON WAYS TO REDUCE FALL RISK FACTORS AND ESTABLISH HOME EXERCISE PROGRAM TO MINIMIZE FALL RISK. MAY TEACH THE PATIENT FLOOR RECOVERY WHEN CLINICALLY APPROPRIATE] Goal Patient Goal - G ET STRONGER AND INDEPENDENT IN HOME Goal Provider Goal - Goal Provider Goal - Goal Provider Goal - PATIENT/CAREGIVER TO VERBALIZE, AND CONSISTENTLY DEMONSTRATE EFFECTIVE, SAFE MANAGEMENT OF MEDICATION INCLUDING KNOWLEDGE OF EFFECTIVENESS, POTENTIAL SIDE EFFECTS AND DRUG REACTIONS AND WHEN TO CONTACT THE APPROPRIATE CARE PROVIDER. PATIENT/CAREGIVER WILL BE ABLE TO VERBALIZE UNDERSTANDING OF MEDICATION REGIMEN AND ACCURATELY TAKE MEDICATIONS PRESCRIBED WITHOUT ADVERSE EFFECTS BY 11/18/24 Goal Provider Goal - PATIENT / CAREGIVER WILL VERBALIZE/DEMONSTRATE UNDERSTANDING OF MEASURES TO MANAGE ALTERED RESPIRATORY STATUS BY END OF EPISODE. Goal Provider Goal - PATIENT / CAREGIVER WILL VERBALIZE/DEMONSTRATE AN ABILITY TO ADHERE TO SELF-MANAGEMENT OF COPD TO MINIMIZE COMPLICATIONS AND AVOID HOSPITALIZATION BY END OF EPISODE. Goal Provider Goal - PATIENT/CAREGIVER ABLE TO IDENTIFY FALL RISK FACTORS AND IMPLEMENT STRATEGIES TO MINIMIZE FALL RISK. PATIENT/CAREGIVER WILL VERBALIZE/DEMONSTRATE AN ABILITY TO ADHERE TO FALL REDUCTION SELF-MANAGEMENT AND LIFE-STYLE CHANGES AT DISCHARGE. PERSONAL GOAL(S) STATED BY PATIENT/CAREGIVER WILL BE MET BY 11/18/24. Goal Provider Goal - PATIENT / CAREGIVER WILL VERBALIZE/DEMONSTRATE UNDERSTANDING OF MEASURES TO MANAGE ALTERED GENITOURINARY STATUS BY END OF EPISODE. Goal Provider Goal - PATIENT/CAREGIVER WILL VERBALIZE/DEMONSTRATE UNDERSTANDING OF CARE AND MANAGEMENT OF INDWELLING CATHETER BY 11/18/24. Goal Provider Goal - A PLAN OF CARE WILL BE ESTABLISHED THAT MEETS THE PATIENTS NEEDS. PATIENT WILL DEMONSTRATE OXYGEN SATURATION WITHIN NORMAL LIMITS OR PATIENTS OPTIMAL LEVEL ESTABLISHED BY THE PHYSICIAN THROUGHOUT CARE. CHANGES TO CO-MORBID CONDITIONS AND ANY NEW CONDITIONS WILL BE IDENTIFIED AND REPORTED TO THE PHYSICIAN. Goal Provider Goal - PATIENT / CAREGIVER WILL VERBALIZE / DEMONSTRATE UNDERSTANDING OF PAIN CONTROL MEASURES BY 11/18/24 Goal Provider Goal - PATIENT / CAREGIVER WILL VERBALIZE/DEMONSTRATE ABILITY TO PERFORM WOUND CARE. WOUND STATUS WILL IMPROVE EVIDENCED BY A DECREASE IN SIZE, DRAINAGE, ABSENCE OF INFECTION, AND DECREASED PAIN BY 11/18/24 Goal Provider Goal - NA Goal Provider Goal - PATIENT/CAREGIVER WILL VERBALIZE UNDERSTANDING OF SIGNS AND SYMPTOMS THAT PUT THE PATIENT AT RISK FOR HOSPITALIZATION /EMERGENCY ROOM VISITS, WHEN TO NOTIFY NURSE/PHYSICIAN OF COMPLICATIONS/DECLINE AND WHEN TO CALL 911. Goal Provider Goal - PATIENT / CAREGIVER WILL VERBALIZE/DEMONSTRATE UNDERSTANDING OF MEASURES TO MANAGE ALTERED CARDIOVASCULAR STATUS BY 11/18/24 Goal Provider Goal - PATIENT / CAREGIVER WILL VERBALIZE/DEMONSTRATE AN ABILITY TO ADHERE TO SELF-MANAGEMENT OF HTN TO MINIMIZE COMPLICATIONS AND AVOID HOSPITALIZATION BY END OF EPISODE. Goal Provider Goal - PATIENT / CAREGIVER WILL VERBALIZE/DEMONSTRATE AN ABILITY TO ADHERE TO SELF-MANAGEMENT OF HEART ARRHYTHMIA TO MINIMIZE COMPLICATIONS AND AVOID HOSPITALIZATION BY END OF EPISODE. Goal Provider Goal - OT STG: PATIENT WILL IMPROVE LB DRESSING TO CGA WITHIN 4 WEEKS OT LTG: PATIENT WILL DEMONSTRATE IMPROVED ABILITY TO PERFORM LOWER BODY DRESSING TO REDUCE CAREGIVER BURDEN FROM MIN A TO INDEPENDENT WITHIN 9 WEEKS OT LTG: PATIENT WILL DEMONSTRATE IMPROVEMENT IN MODIFIED KRISTEN INDEX SCORE FROM 83 TO 95 INDICATING DECREASED DEPENDENCY ON CAREGIVER ASSISTANCE WITH ACTIVITIES OF DAILY LIVING WITHIN 9 WEEKS OT STG: PATIENT WILL IMPROVE TOILET TRANSFER TO SBA WITHIN 4 WEEKS OT LTG: PATIENT WILL DEMONSTRATE IMPROVED ABILITY TO PERFORM TOILET TRANSFERS TO REDUCE FALL RISK AND RISK OF INCONTINENCE AND UTI DEVELOPMENT FROM CGQ TO INDEPENDENT WITHIN 9 WEEKS OT STG:PATIENT WILL IMPROVE SHOWER TRANSFER TO CGA WITHIN 4 WEEKS OT LTG: PATIENT WILL DEMONSTRATE IMPROVED ABILITY AND SAFETY TO PERFORM BATH/SHOWER TRANSFER FROM MIN A TO INDEPENDENT WITHIN 9 WEEKS OT STG: PATIENT WILL IMPROVE BUE HEP TO MIN A WITHIN 4 WEEKS OT LTG: PATIENT WILL DEMONSTRATE IMPROVED STRENGTH/COORDINATION AND/OR DEXTERITY BUE FOR IMPROVED PARTICIPATION IN ADLS EVIDENCED BY IMPROVED ADLS AND TRANSFERS FROM MOD A TO INDEPENDENT WITHIN 9 WEEKS OT STG: PATIENT WILL IMPROVE USE OF ENERGY CONSERVATION TECHNIQUES TO MIN A WITHIN 4 WEEKS OT LTG: PATIENT WILL DEMONSTRATE UNDERSTANDING OF ENERGY CONSERVATION MEASURES, EVIDENCED BY INCREASED ACTIVITY TOLERANCE FROM MOD A TO INDEPENDENT DURING ADLS/TRANSFERS WITHIN 9 WEEKS OT LTG: PATIENT WILL MAINTAIN OXYGEN SATURATION WITHIN PHYSICIAN ORDERED PARAMETERS THROUGHOUT THE EPISODE OF CARE. OT LTG: PATIENT WILL DEMONSTRATE UNDERSTANDING OF PAIN MANAGEMENT TECHNIQUES EVIDENCED BY REDUCED GENERAL PAIN 0/10 WITHIN 9 WEEKS OT LTG: PATIENT/CAREGIVER WILL BE ABLE TO IMPLEMENT RECOMMENDATIONS SPECIFIC TO FALL REDUCTION FOR IMPROVED ADL/IADL COMPLETION AND HOME SAFETY BY END OF EPISODE. OT LTG: PATIENT WILL BE INDEPENDENT WITH IMPLEMENTATION OF HEP WITHIN 9 WEEKS Goal Provider Goal - PT LTG: PATIENT WILL DEMONSTRATE IMPROVED AMBULATION FROM CGA TO INDEPENDENT WITH ROLLATOR WITHIN 9 WEEKS PT LTG: PATIENT WILL DEMONSTRATE REDUCED FALL RISK EVIDENCED BY TUG TEST (CUT SCORE >11 SECONDS INDICATES INCREASED FALL RISK) IMPROVING FROM 51 SECONDS TO 20 SECONDS WITHIN 9 WEEKS PT STG: PATIENT WILL DEMONSTRATE INDEPENDENCE WITH BLE HEP WITHIN 5 WEEKS PT LTG: PATIENT WILL DEMONSTRATE INCREASED STRENGTH OF BLE FROM 3/5 TO 4/5 WITHIN 9 WEEKS PT LTG: PATIENT WILL DEMONSTRATE IMPROVED ABILITY TO SAFELY NEGOTIATE STAIRS FROM UNABLE TO SUP IN ORDER TO ENTER AND EXIT THE HOME WITHIN 9 WEEKS PT LTG: PATIENT WILL DEMONSTRATE IMPROVED ABILITY TO PERFORM SIT TO/FROM STAND TRANSFERS TO REDUCE THE RISK OF SKIN BREAKDOWN AND REDUCE FALL RISK FROM CGA TO INDEPENDENT WITHIN 9 WEEKS PT LTG: PATIENT WILL MAINTAIN OXYGEN SATURATION WITHIN PHYSICIAN ORDERED PARAMETERS THROUGHOUT EPISODE OF CARE. PT GOAL: PATIENT WILL DEMONSTRATE UNDERSTANDING OF PAIN MANAGEMENT TECHNIQUES EVIDENCED BY REDUCED PAIN PT GOAL: PATIENT WILL NOT EXHIBIT SIGNS AND SYMPTOMS OF UTI. PT GOAL: PATIENT/CAREGIVER WILL BE ABLE TO IDENTIFY SIGNS OF ATRIAL FIBRILLATION EXACERBATION AND WILL VERBALIZE/DEMONSTRATE AN ABILITY TO ADHERE TO ATRIAL FIBRILLATION SELF-MANAGEMENT AND LIFE-STYLE CHANGES BY END OF EPISODE. PT LTG: PATIENT/CAREGIVER WILL DEMONSTRATE ADHERENCE TO FALL REDUCTION SELF-MANAGEMENT AND REDUCING FALL RISK FACTORS TO MINIMIZE FALL RISK BY END OF EPISODE Encounters Start Date/Time End Date/Time Encounter Type Admission Type Attending [facility] [place] Facility Care Department Encounter ID Discharge Date Discharge Status Discharge Condition Discharge Reason Percent Goals Met 2024-09-20 00:00:00 2024-11-18 00:00:00 Outpatient [facility] [id number] 14.29
[2024-10-19 13:45] VITALS: BMI 23.0
[2024-10-22 10:54] VITALS: BMI 23.2
[2024-10-22 11:09] VITALS: BP 127/82; PULSE 86; RESP 16; TEMP 36.7; O2SAT 97
[2024-10-22] MEDS: Lactated Ringers 1,000 ML 100 ML IVCONT (11:15)
--- NOTE | 2024-10-22 11:20 | HO.ANESPROP2 ---
Documented by User: Amanda Mcintosh NP 10/21/24 10:09 HPI - Anesthesia Eval Consult details Narrative: 69yo F for Cardioversion s/p Total hip 03/2024 with [place] Eliquis for afib Plavix PAD, CAD with left circumflex and RCA stents, NSTEMI in setting of hypertensive crisis, heart failure with preserved EF PMFSH Active Problems Active Problems: All Active Problems Hematuria (Acute) Status post total hip replacement, left (Acute) Abnormal ECG (Acute) Shortness of breath (Acute) Murmur (Acute) Bacteremia due to Escherichia coli (Acute) S/P cardiac catheterization (Acute) Acute on chronic HFrEF (heart failure with reduced ejection fraction) (Acute) Acute respiratory failure with hypoxia (Acute) Pleural effusion (Acute) COVID-19 (Acute) Hospital discharge follow-up (Acute) Atrial fibrillation, persistent (Acute) Fracture of left proximal ulna (Acute) Urinary retention with incomplete bladder emptying (Acute) Open olecranon fracture (Acute) Raynauds disease (Acute) Acquired hypothyroidism (Acute) Other specified disorders of bone density and structure, right shoulder (Acute) Screening for osteoporosis (Acute) Preop cardiovascular exam (Acute) Bilateral cataracts (Acute) Preoperative clearance (Acute) PAD (peripheral artery disease) (Acute) Left leg pain (Acute) Hypertensive emergency (Acute) Acute diastolic (congestive) heart failure (Acute) Rectal bleeding (Acute) NSTEMI (non-ST elevated myocardial infarction) (Acute) Hypertensive crisis (Acute) Acute and chronic respiratory failure with hypoxia (Acute) Acute exacerbation of CHF (congestive heart failure) (Acute) COPD (chronic obstructive pulmonary disease) (Acute) History of smoking 30 or more pack years (Acute) Atherosclerotic cardiovascular disease (Acute) CAD (coronary artery disease) (Acute) CHF (congestive heart failure) (Acute) Essential hypertension (Acute) Cardiomyopathy (Acute) Asymmetric blood pressures (Acute) S/P cardiac cath (Acute ~12/2020) Acute on chronic systolic (congestive) heart failure (Acute) Pulmonary nodules (Acute) Peripheral arterial occlusive disease (Acute) Past Medical History Medical History Recurrent urinary tract infection Bilateral cataracts History of cardioversion Myocardial infarction Arthritis Hx of transfusion of packed red blood cells Thyroid disease GERD (gastroesophageal reflux disease) CKD (chronic kidney disease) On anticoagulant therapy Osteoarthritis of left hip Atrial fibrillation UTI (urinary tract infection) History of smoking 30 or more pack years PAF (paroxysmal atrial fibrillation) Atrial fibrillation with rapid ventricular response Left renal artery stenosis Personal history of nicotine dependence Cardiomyopathy Essential hypertension Atherosclerotic cardiovascular disease Asymmetric blood pressures Acute on chronic systolic (congestive) heart failure CHF (congestive heart failure) CAD (coronary artery disease) Multiple sclerosis Pulmonary nodules COPD (chronic obstructive pulmonary disease) Peripheral arterial occlusive disease Family History Family History Father No problems noted. Mother No problems noted. Brother Diabetes Family history of problems with anesthesia: No Surgical History Surgical History History of total left hip replacement (03/30/24) Hip joint replacement status History of endoscopy History of colonoscopy History of heart artery stent (~2018) Status post angioplasty with stent (~09/2018) S/P insertion of iliac artery stent (~02/2019) S/P cardiac cath (~12/2020) History of cholecystectomy (~02/2009) History of Problems with Anesthesia: No Social History Social History Household Members: None Housing: House Housing Other:: Sent in from [facility] Are you a primary critical care clinical nurse specialist to a significant other at home: No Do you presently have visiting nurse or other home services: No Alcohol intake: never Comment: aware of trip hazard Patient Tobacco Use Status: Former Tobacco user Tobacco use type: Cigarette Years Smoked: 50 Smoked in Last 30 Days: No e-Cigarette/Vaping Use: Never Used Second Hand Smoke Exposure: No Use of substances other than those prescribed or required for medical reasons: No Have you been hit, kicked, punched, or otherwise hurt by someone within the past year? If so, by whom?: No Are you DNR?: No Advance Directives: Yes Advance Directives Information Provided: Yes Advance Directives on File: Yes Advance Directives Date on File: 01/17/23 Recently lost weight without trying: No How much weight loss: Not applicable Eating poorly because of decreased appetite: No Nutrition screen score: 0 Nutrition Risks: No Nutritional Risk Patient : No : No Poor oral hygiene: Yes (upper and lower missing teeth, lower cracked tooth) [employer] service: No Current occupational status: retired Cognitive needs: Yes (cane) Hearing needs: No Vision needs: Yes (reading glasses) Meds Allergies Allergy/AdvReac Type Severity Reaction Status Date / Time codeine [Codeine] AdvReac Mild vomiting Verified 10/22/24 10:54 Home Medications ?Medication ?Instructions ?Recorded ?Confirmed ?Last Taken ?Type paroxetine HCl 40 mg tablet 40 mg PO BEDTIME 10/03/20 10/22/24 07/21/24 History cholecalciferol (vitamin D3) 25 25 mcg PO DAILY 12/20/20 10/22/24 07/22/24 History mcg (1,000 unit) tablet (Vitamin D3) cyanocobalamin (vitamin B-12) 1,000 mcg PO DAILY 12/20/20 10/22/24 07/22/24 History 1,000 mcg tablet (Vitamin B-12) melatonin 10 mg tablet 10 mg PO BEDTIME Insomnia 01/13/23 10/22/24 07/21/24 History levothyroxine 50 mcg tablet 50 mcg PO DAILY@0600 09/02/23 10/22/24 10/22/24 History (Synthroid) pantoprazole 40 mg tablet,delayed 40 mg PO DAILY@0630 03/15/24 10/22/24 07/22/24 History release acetaminophen 500 mg tablet 1,000 mg PO DAILY PRN Pain 04/21/24 10/22/24 Unknown History amiodarone 200 mg tablet 200 mg PO DAILY 04/21/24 10/22/24 10/22/24 History metoprolol succinate 25 mg 12.5 mg PO DAILY 09/16/24 10/22/24 10/22/24 History tablet,extended release 24 hr Exam Height,Weight and Vital Signs: Height 5 ft 6 in Weight 64.609 kg Narrative Narrative: ECHO 04/2024 Conclusions: - The left ventricular systolic function is mildly decreased. The visually estimated ejection fraction is between 40-45%. - There is evidence of regional wall motion abnormalities. - The left atrium is severely dilated. - There is moderate mitral valve regurgitation. Assessment and Plan Assessment Anesthesia Assessment: Chart Reviewed Final Anesthetic Review Family History of Problems with Anesthesia: No History of Problems with Anesthesia: No Documented by User: Sheyla Murphy DO 10/22/24 12:18 [facility] Past Medical History Medical History Recurrent urinary tract infection Bilateral cataracts History of cardioversion Myocardial infarction Arthritis Hx of transfusion of packed red blood cells Thyroid disease GERD (gastroesophageal reflux disease) CKD (chronic kidney disease) On anticoagulant therapy Osteoarthritis of left hip Atrial fibrillation UTI (urinary tract infection) History of smoking 30 or more pack years PAF (paroxysmal atrial fibrillation) Atrial fibrillation with rapid ventricular response Left renal artery stenosis Personal history of nicotine dependence Cardiomyopathy Essential hypertension Atherosclerotic cardiovascular disease Asymmetric blood pressures Acute on chronic systolic (congestive) heart failure CHF (congestive heart failure) CAD (coronary artery disease) Multiple sclerosis Pulmonary nodules COPD (chronic obstructive pulmonary disease) Peripheral arterial occlusive disease Family History Family History Father No problems noted. Mother No problems noted. Brother Diabetes Family history of problems with anesthesia: No Surgical History Surgical History History of total left hip replacement (03/30/24) Hip joint replacement status History of endoscopy History of colonoscopy History of heart artery stent (~2018) Status post angioplasty with stent (~09/2018) S/P insertion of iliac artery stent (~02/2019) S/P cardiac cath (~12/2020) History of cholecystectomy (~02/2009) History of Problems with Anesthesia: No Social History Social History Household Members: None Housing: [facility] Are you a primary critical care clinical nurse specialist to a significant other at home: No Do you presently have visiting nurse or other home services: No Alcohol intake: never Comment: aware of trip hazard Patient Tobacco Use Status: Former Tobacco user Tobacco use type: Cigarette Years Smoked: 50 Smoked in Last 30 Days: No e-Cigarette/Vaping Use: Never Used Second Hand Smoke Exposure: No Use of substances other than those prescribed or required for medical reasons: No Have you been hit, kicked, punched, or otherwise hurt by someone within the past year? If so, by whom?: No Are you DNR?: No Advance Directives: Yes Advance Directives Information Provided: Yes Advance Directives on File: Yes Advance Directives Date on File: 01/17/23 Recently lost weight without trying: No How much weight loss: Not applicable Eating poorly because of decreased appetite: No Nutrition screen score: 0 Nutrition Risks: No Nutritional Risk Patient : No : No Poor oral hygiene: Yes (upper and lower missing teeth, lower cracked tooth) service: No Current occupational status: retired Cognitive needs: Yes (cane) Hearing needs: No Vision needs: Yes (reading glasses) Meds Allergies Allergy/AdvReac Type Severity Reaction Status Date / Time codeine [Codeine] AdvReac Mild vomiting Verified 10/22/24 10:54 Home Medications ?Medication ?Instructions ?Recorded ?Confirmed ?Last Taken ?Type paroxetine HCl 40 mg tablet 40 mg PO BEDTIME 10/03/20 10/22/24 07/21/24 History cholecalciferol (vitamin D3) 25 25 mcg PO DAILY 12/20/20 10/22/24 07/22/24 History mcg (1,000 unit) tablet (Vitamin D3) cyanocobalamin (vitamin B-12) 1,000 mcg PO DAILY 12/20/20 10/22/24 07/22/24 History 1,000 mcg tablet (Vitamin B-12) melatonin 10 mg tablet 10 mg PO BEDTIME Insomnia 01/13/23 10/22/24 07/21/24 History levothyroxine 50 mcg tablet 50 mcg PO DAILY@0600 09/02/23 10/22/24 10/22/24 History (Synthroid) pantoprazole 40 mg tablet,delayed 40 mg PO DAILY@0630 03/15/24 10/22/24 07/22/24 History release acetaminophen 500 mg tablet 1,000 mg PO DAILY PRN Pain 04/21/24 10/22/24 Unknown History amiodarone 200 mg tablet 200 mg PO DAILY 04/21/24 10/22/24 10/22/24 History metoprolol succinate 25 mg 12.5 mg PO DAILY 09/16/24 10/22/24 10/22/24 History tablet,extended release 24 hr Exam Exam Date and Time: 10/22/24 1125 Height,Weight and Vital Signs: Height 5 ft 6 in Weight 64.609 kg Vital Signs Temperature 98.0 F 10/22/24 11:09 Pulse Rate 86 10/22/24 11:09 Respiratory Rate 16 10/22/24 11:09 Blood Pressure 127/82 10/22/24 11:09 Pulse Oximetry 97 10/22/24 11:09 Oxygen Delivery Method Room Air 10/22/24 11:09 Temperature 98.0 F 10/22/24 11:09 Pulse Rate 86 10/22/24 11:09 Respiratory Rate 16 10/22/24 11:09 Blood Pressure 127/82 10/22/24 11:09 Pulse Oximetry 97 10/22/24 11:09 Oxygen Delivery Method Room Air 10/22/24 11:09 Airway Mallampati Class: II TM Dist: >3cm Neck ROM: Full Denture: Upper Heart: S1S2 Lungs: CTAB Assessment and Plan Assessment Anesthesia Assessment: Anesthesia Plan Discussed and Chart Reviewed Final Anesthetic Review Family History of Problems with Anesthesia: No History of Problems with Anesthesia: No NPO: Yes ASA Class: IV Final Preanesthetic Review: No Changes in Pt Med Stat, Meds/Allgs Chart Reviewed, Consent Obtained/Reviewed and Anes Risks/Benef Reviewed Patient Risk: High Procedure Risk: Intermediate Anesthetic Plan Anesthetic Plan: MAC: and Agree w/ Assess. and Plan Disposition: Standard PACU
--- NOTE | 2024-10-22 12:52 | MHC.SHP ---
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 Last seen in the office on 09/16/2024. Eliquis was increased at that time and scheduled for outpatient cardioversion Relevant Family History (Specify if Yes): No Relevant Social History: None Present Medications: see Short Stay Collaborative assessment Medical History: Significant History Allergies: Allergies Allergy/AdvReac Type Severity Reaction Status Date / Time codeine [Codeine] AdvReac Mild vomiting Verified 10/22/24 10:54 Review of Systems Sugical H&P ROS: Negative: Constitution, Respiratory, Neurological, Psychiatric, Hem-Onc, Allergic/Immunologic, Gastrointestinal, Genitourinary, Musculoskeletal, Integumentary, Endocrine and Eyes/Ears/Nose/Throat and Yes, Specify: Cardiovascular Exam Surgical H&P Exam: Normal: HEENT, Normal: Lungs, Normal: Extremities, Normal: Abdomen, Normal: Skin and Normal: Neurological and Significant Findings: Heart (Irregularly irregular) Plan Diagnosis/Plan: Unchanged I have reviewed the history and physical and performed a pertinent physical examination on my patient. No changes have occurred unless specified. Patient plan for undergoing cardioversion. Time Spent With Patient Time: Total time managing care of this patient today ____ minutes.
--- NOTE | 2024-10-22 13:02 | ECG_ITS ---
Test Reason : s/p cardioversion Blood Pressure : / mmHG Vent. Rate : 060 BPM Atrial Rate : 060 BPM P-R Int : 216 ms QRS Dur : 112 ms QT Int : 500 ms P-R-T Axes : 083 008 180 degrees QTc Int : 500 ms Sinus rhythm with 1st degree A-V block with occasional Premature ventricular complexes Incomplete left bundle branch block Left ventricular hypertrophy with repolarization abnormality ( [place] product ) Prolonged QT Abnormal ECG When compared with ECG of 22-JUL-2024 18:57, Sinus rhythm has replaced Atrial fibrillation Incomplete left bundle branch block has replaced Non-specific intra-ventricular conduction block Referred By: Braulio Kraus Electronically Signed By:BRAULIO KRAUS MD
[2024-10-22 13:09] VITALS: BP 114/49; PULSE 59; RESP 14; TEMP 36.2; O2SAT 100
[2024-10-22 13:25] VITALS: BP 122/55; PULSE 57; RESP 16; O2SAT 100
--- NOTE | 2024-10-22 13:29 | HO.CARDIVERS ---
Cardioversion Procedure Note Cardioversion Date of Procedure: 10/22/2024 Ordering Provider: Dr. Lizama Performing Provider: Dr. Kraus Indication for Procedure: Persistent atrial fibrillation, heart failure with reduced ejection fraction with cardiomyopathy process suspected to be tachycardia mediated Pre-Op Diagnosis: Same Post-Op Diagnosis: Normal sinus rhythm Performed with Transesophageal Echo: No History: See office note from 09/16/2024 Consent: Verbal and Written consent was obtained from the patient before starting the procedure and after confirming oral anticoagulation use. The patient was made aware of the risk of synchronized cardioversion including benefits and alternatives Procedure: After consent obtained, cardioversion pads were attached in anteroposterior configuration and the patient was sedated by the anesthesia team. Once adequate sedation achieved, patient was delivered 200 joules of biphasic synchronized energy in anteroposterior configuration Complications: None Impression: Successful conversion to sinus rhythm Recommendations: 1. 12 lead EKG 2. Continue amiodarone and oral anticoagulation therapy 3. Office visit as planned
--- NOTE | 2024-10-22 13:39 | ECG_ITS ---
Test Reason : CP Blood Pressure : / mmHG Vent. Rate : 057 BPM Atrial Rate : 057 BPM P-R Int : 218 ms QRS Dur : 114 ms QT Int : 484 ms P-R-T Axes : 098 004 173 degrees QTc Int : 471 ms Sinus bradycardia with 1st degree A-V block with frequent Premature ventricular complexes Incomplete left bundle branch block Left ventricular hypertrophy with repolarization abnormality ( [place] product ) Abnormal ECG When compared with ECG of 22-OCT-2024 13:38, No significant change was found Referred By: Wilder Garcia Electronically Signed By:MADDIE ARIAS MD
[2024-10-22 13:40] VITALS: BP 105/44; PULSE 59; RESP 16; O2SAT 95
[2024-10-22 13:55] VITALS: BP 124/58; PULSE 64; RESP 16; TEMP 36.3; O2SAT 99
[2024-10-22 15:39] VITALS: BP 153/91; PULSE 65; RESP 18; TEMP 36.1; O2SAT 98
== END | disposition home or self-care (01) ==
PROVIDERS: PCP Internal Medicine; Visit Provider Internal Medicine Cardiovascular Disease
PROC: 5A2204Z Restoration of Cardiac Rhythm, Single (ICD-10-PCS; principal; 2024-10-22 12:00)
DX: I48.19 Other persistent atrial fibrillation (principal); I11.0 Hypertensive heart disease with heart failure; I50.20 Unspecified systolic (congestive) heart failure; I42.9 Cardiomyopathy, unspecified; I25.10 Atherosclerotic heart disease of native coronary artery without angina pectoris; I25.2 Old myocardial infarction; E78.5 Hyperlipidemia, unspecified; I73.9 Peripheral vascular disease, unspecified; J44.9 Chronic obstructive pulmonary disease, unspecified; Z87.891 Personal history of nicotine dependence
CPT/HCPCS: 92960; 93005

== ENCOUNTER → 2024-10-22 10:05 | Outpatient (BNV) | payer MEDICARE, BC, SELFPAY | PROVIDERS: PCP Internal Medicine; Visit Provider Internal Medicine Cardiovascular Disease | DX: I48.19 Other persistent atrial fibrillation (principal); R94.31 Abnormal electrocardiogram [ECG] [EKG] | CPT/HCPCS: 92960; 93010 ==

== ENCOUNTER 2024-11-11 11:20 | Outpatient (AMB) | payer MEDICARE, BC, SELFPAY ==
--- NOTE | 2024-11-11 11:27 | A.OFFVIS_ITS ---
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 Required: No Allergies codeine [Codeine] Adverse Reaction (Mild, Verified 11/12/24 10:22) vomiting Medication List - Last Reconciled 11/11/24 by MOISES Adams-NIKITA acetaminophen 1,000 mg PO DAILY PRN amiodarone 200 mg PO DAILY apixaban (Eliquis) 5 mg PO BID atorvastatin 80 mg PO BEDTIME cholecalciferol (vitamin D3) (Vitamin D3) 25 mcg PO DAILY clopidogrel 75 mg PO DAILY cyanocobalamin (vitamin B-12) (Vitamin B-12) 1,000 mcg PO DAILY fluticasone propion-salmeterol 113-14 mcg/actuation 1 inh inhalation Q12H 30 days furosemide 40 mg See Protocol PO DAILY 90 days levothyroxine (Synthroid) 50 mcg PO DAILY@0600 melatonin 10 mg PO BEDTIME metoprolol succinate ER 12.5 mg PO DAILY pantoprazole 40 mg PO DAILY@0630 paroxetine HCl 40 mg PO BEDTIME HPI Comments Details: Alden is a pleasant 69-year-old female patient of Dr. Whitfield was accompanied by her sister at today's office visit. She has a past medical history of AFib with a history of cardioversion x2 on anticoagulation, OR, arthritis, thyroid disease, GERD, chronic kidney disease, former smoker, cardiomyopathy, cataracts, hypertension, ACD, congestive heart failure, coronary artery disease, MS, and pulmonary nodules. She presents to the office today for follow-up of her lower urinary tract symptoms, recurrent urinary tract infections and urinary retention. In discussion with the patient today she is adamant to have Mahoney catheter removed. We discussed attempting to remove catheter in the morning to allow time to void and call office if she is unable to do so however patient does not want to have catheter out tomorrow. She continues to discuss wanting catheter removal today. Nursing in to remove catheter and perform in office voiding trial. Patient unable to void independently. PVR 98 mL. We discussed importance of calling office and or seeking medical treatment if unable to urinate. Patient with a longstanding history of incomplete bladder emptying. She had previously been on 1 mg terazosin at bedtime however discusses stopping medication as she felt this caused her incontinence. We discussed further treatment options of incomplete bladder emptying/urinary retention. We discussed potential for near future in office cystoscopy for further assessment evaluation. She otherwise denies any other issues or concerns at this time. [facility] Medical History PAF (paroxysmal atrial fibrillation) Recurrent urinary tract infection Bilateral cataracts History of cardioversion Myocardial infarction Arthritis Hx of transfusion of packed red blood cells Thyroid disease GERD (gastroesophageal reflux disease) CKD (chronic kidney disease) On anticoagulant therapy Osteoarthritis of left hip Atrial fibrillation UTI (urinary tract infection) History of smoking 30 or more pack years Atrial fibrillation with rapid ventricular response Left renal artery stenosis Personal history of nicotine dependence Cardiomyopathy Essential hypertension Atherosclerotic cardiovascular disease Asymmetric blood pressures Acute on chronic systolic (congestive) heart failure CHF (congestive heart failure) CAD (coronary artery disease) Multiple sclerosis Pulmonary nodules COPD (chronic obstructive pulmonary disease) Peripheral arterial occlusive disease Surgical History History of total left hip replacement (03/30/24) Hip joint replacement status History of endoscopy History of colonoscopy History of heart artery stent (~2018) Status post angioplasty with stent (~09/2018) S/P insertion of iliac artery stent (~02/2019) S/P cardiac cath (~12/2020) History of cholecystectomy (~02/2009) Family History Father No problems noted. Mother No problems noted. Brother Diabetes Social History Household Members: None Housing: House Housing Other:: Sent in from [facility] Are you a primary floor care technician to a significant other at home: No Do you presently have visiting nurse or other home services: No Alcohol intake: never Comment: aware of trip hazard Patient Tobacco Use Status: Former Tobacco user Tobacco use type: Cigarette Years Smoked: 50 e-Cigarette/Vaping Use: Never Used Second Hand Smoke Exposure: No Advance Directives Date on File: 01/17/23 service: No Current occupational status: retired Cognitive needs: Yes (cane) Hearing needs: No Vision needs: Yes (reading glasses) Review of Systems Eyes Reports as per HPI ENT Reports no additional complaints Card Reports as per [facility] [employer] [facility] Resp Reports as per [facility] [employer] [facility] GI Reports as per [facility] Reports as per [facility] [employer] [facility] [facility] Musc Reports as per [facility] [employer] [facility] [facility] Neuro Reports no additional complaints Psych Reports no additional complaints Endo Reports as per [facility] [employer] [facility] Physical Exam Const General: cooperative, healthy appearing, comfortable, no acute distress, well developed, alert and awake Orientation/consciousness: patient oriented x3 Limitations: ambulation with walker HEENT Head: Yes normal to inspection, Yes normocephalic and Yes atraumatic Ears: hearing grossly normal bilaterally Eyes General: appearance normal, both eyes and all related structures Neck Neck: Yes normal visual inspection and Yes trachea midline Chest Chest palpation & inspection: normal inspection of the chest Resp Effort & Inspection: normal respiratory effort and able to speak in complete sentences Cardio Rate: regular rate GI Inspection: Yes normal to inspection General: Yes no CVA tenderness Back/Spine/Pelvis Back: no CVA tenderness Skin General skin exam: no rashes or lesions noted Neuro General: patient oriented x3 Extrem General: Yes normal to inspection Psych Appearance: grossly normal and well kempt Mental Status: mental status grossly normal Speech and movement: Normal speech and movement present and Clear speech present Affect: normal affect Attitude: cooperative Thought process: Normal thought process present Thought content: Normal thought content present Insight: Fair insight present (Psych) Judgement: Fair judgement present (Psych) Office Procedures Bladder/Catheter Procedure Details: 120mls normal saline instilled through catheter, patient tolerated instillation well. Removed 16fr mahoney catheter, patient tolerated removal well. Patient to tr y to void. MA in to bladder scan patient. Patient unable to void. STEVEN reviewed with Sarah DE LEON-NIKITA for next steps. [id number] of Bladder Procedure code (CPT) selection complete Assessment & Plan Assessment & Plan (1) Urinary retention with incomplete bladder emptying: Code(s): R33.9 - Retention of urine, unspecified Category: Medical Plan We discussed at length potential causes of incomplete bladder emptying/urinary retention. Start terazosin as discussed and prescribed. We discussed performing voiding trial garment parts cutter machine verses mid day however patient continues to be adamant on catheter removal We discussed near future in office cystoscopy and or urodynamics for further assessment evaluation. We discussed importance of calling office and or seeking medical treatment if she is unable to urinate. Follow-up in 1-2 months with PVR; or sooner with any issues, concerns, and or questions. Discussed UTI prevention with D mannose supplement, vitamin-C, increasing fluid intake, behavioral therapy with timed voiding, perineal hygiene and postcoital voiding, and management of constipation with stool softeners and increased fiber intake. Will obtain retroperitoneal ultrasound for further assessment evaluation. Follow-up in 1 month with PVR at next office visit; or sooner with any issues, concerns, and or questions. Orders: Orders AMB Post Void Residual by ultrasound 11/11/24 R33.9 - Retention of urine, unspecified AMB Bladder/Catheter Procedure 11/11/24 R33.9 - Retention of urine, unspecified Medications: New terazosin 1 mg PO BEDTIME 90 caps 1RF 90 days R39.12 - Poor urinary stream Patient Instructions: The patient had an opportunity to ask questions regarding the treatment plan. All questions were answered. Physical exam, labs, and imaging were discussed and reviewed in detail. As well as risks, benefits, and discussion of treatment choices. No major barriers to understanding were identified. The patient expressed understanding and agreement with the above treatment plan. The patient was made aware they should contact our office by phone for worsening of their current condition, the appearance of new symptoms, or with any questions or concerns. Compliance is encouraged with any medications and follow up testing that is ordered. It is a privilege to be allowed the opportunity to participate in? your urological care.? Again, if you have any questions or concerns If you have any questions or concerns please do not hesitate to contact me. The office is [phone]. This note is constructed using voice recognition software. While every effort has been made to ensure accuracy cutter aluminum sheet errors may have been included. Yours sincerely, DAVID Adams Coding Level of Care Code Est Pt Level 4 (09567) Diagnoses Urinary retention with incomplete bladder emptying R33.9 CPT Codes Bladder/Catheter Procedure - CPT: 58329-Lxcikkqeaq of Bladder ([id number]) Time Spent (min) 35
== END 2024-11-11 12:04 | disposition home or self-care (01) ==
PROVIDERS: PCP Internal Medicine; Visit Provider Nurse Practitioner Family
DX: R33.9 Retention of urine, unspecified (principal)
CPT/HCPCS: 51700

== ENCOUNTER → 2024-11-11 11:20 | Outpatient (BNVA) | payer MEDICARE, BC, SELFPAY | PROVIDERS: PCP Internal Medicine; Visit Provider Nurse Practitioner Family | DX: I48.0 Paroxysmal atrial fibrillation (principal); I11.0 Hypertensive heart disease with heart failure; I50.9 Heart failure, unspecified; I42.8 Other cardiomyopathies; I25.10 Atherosclerotic heart disease of native coronary artery without angina pectoris; R00.1 Bradycardia, unspecified; I44.0 Atrioventricular block, first degree; R94.31 Abnormal electrocardiogram [ECG] [EKG]; R33.9 Retention of urine, unspecified; Z98.890 Other specified postprocedural states | CPT/HCPCS: 51700; 93005; 99212 ==

== ENCOUNTER 2024-11-11 13:10 | Outpatient (AMB) | payer MEDICARE, BC, SELFPAY ==
[2024-11-11 13:14] VITALS: BP 140/72; PULSE 52; BMI 22.5
--- NOTE | 2024-11-11 13:14 | A.OFFVIS_ITS ---
Vital Signs 11/11/24 13:14 Height 5 ft 6 in Weight 139 lb 5.314 oz BMI 22.5 BP 140/72 H Blood Pressure Location Rt brachial Position Sitting Pulse 52 Pulse Source Monitor Intake Visit Reasons: 4 wk f/u post cvr Intake Note: 4 wk f/up post cvr Commercial Credit Reviewer Required: No Accompanied by: Daughter Allergies codeine [Codeine] Adverse Reaction (Mild, Verified 11/11/24 13:55) vomiting Medication List - Last Reconciled 11/11/24 by Everett Yip NP acetaminophen 1,000 mg PO DAILY PRN amiodarone 200 mg PO DAILY apixaban (Eliquis) 5 mg PO BID atorvastatin 80 mg PO BEDTIME cholecalciferol (vitamin D3) (Vitamin D3) 25 mcg PO DAILY clopidogrel 75 mg PO DAILY cyanocobalamin (vitamin B-12) (Vitamin B-12) 1,000 mcg PO DAILY fluticasone propion-salmeterol 113-14 mcg/actuation 1 inh inhalation Q12H 30 days furosemide 40 mg See Protocol PO DAILY 90 days levothyroxine (Synthroid) 50 mcg PO DAILY@0600 melatonin 10 mg PO BEDTIME metoprolol succinate ER 12.5 mg PO DAILY pantoprazole 40 mg PO DAILY@0630 paroxetine HCl 40 mg PO BEDTIME terazosin 1 mg PO BEDTIME 90 days HPI Comments Details: This is a 69-year-old female patient with a history of heart failure with preserved EF, paroxysmal AFib, hypertension, hyperlipidemia, COPD, PVD, CAD with stents in left circumflex and RCA, and a NSTEMI in the setting of hypertensive crisis. She presents today for follow-up after recent cardioversion. Patient was recently admitted to [facility] for a UTI and sepsis with SUSAN, heart failure, AFib, from which she was discharged to a rehab facility. During her hospital discharge follow-up in the office, she was noted to still be in AFib. She underwent a successful cardioversion performed by Dr. Kraus, converting to sinus rhythm. The patient states she can recognize when she is in AFib, as she experiences shortness of breath. She also uses a cardio mobile device at home to monitor for AFib episodes. Since the cardioversion, she feels significantly better overall. Patient denies any exertional chest pain, shortness of breath, orthopnea, PND, edema, dizziness, presyncope, or syncope. [facility] Medical History PAF (paroxysmal atrial fibrillation) Recurrent urinary tract infection Bilateral cataracts History of cardioversion Myocardial infarction Arthritis Hx of transfusion of packed red blood cells Thyroid disease GERD (gastroesophageal reflux disease) CKD (chronic kidney disease) On anticoagulant therapy Osteoarthritis of left hip Atrial fibrillation UTI (urinary tract infection) History of smoking 30 or more pack years Atrial fibrillation with rapid ventricular response Left renal artery stenosis Personal history of nicotine dependence Cardiomyopathy Essential hypertension Atherosclerotic cardiovascular disease Asymmetric blood pressures Acute on chronic systolic (congestive) heart failure CHF (congestive heart failure) CAD (coronary artery disease) Multiple sclerosis Pulmonary nodules COPD (chronic obstructive pulmonary disease) Peripheral arterial occlusive disease Surgical History History of total left hip replacement (03/30/24) Hip joint replacement status History of endoscopy History of colonoscopy History of heart artery stent (~2018) Status post angioplasty with stent (~09/2018) S/P insertion of iliac artery stent (~02/2019) S/P cardiac cath (~12/2020) History of cholecystectomy (~02/2009) Family History Father No problems noted. Mother No problems noted. Brother Diabetes Social History Household Members: None Housing: House Housing Other:: Sent in from [facility] Are you a primary home care liaison to a significant other at home: No Do you presently have visiting nurse or other home services: No Alcohol intake: never Comment: aware of trip hazard Patient Tobacco Use Status: Former Tobacco user Tobacco use type: Cigarette Years Smoked: 50 e-Cigarette/Vaping Use: Never Used Second Hand Smoke Exposure: No Advance Directives Date on File: 01/17/23 service: No Current occupational status: retired Cognitive needs: Yes (cane) Hearing needs: No Vision needs: Yes (reading glasses) Review of Systems Const Denies chills, Denies fatigue, Denies fever(s), Denies frequent falls, Denies weakness, Denies weight gain and Denies weight loss ENT Denies dizziness Card Denies chest pain, Denies leg edema, Denies lightheadedness, Denies palpitations, Denies dyspnea and Denies dyspnea on exertion Resp Denies cough, Denies dyspnea and Denies dyspnea on exertion GI Denies hematochezia Musc Denies abnormal gait, Denies muscle weakness, Denies numbness, Denies radiating pain into limb and Denies tingling Neuro Denies abnormal gait, Denies dizziness, Denies frequent falls, Denies numbness, Denies tingling and Denies weakness Endo Denies fatigue and Denies palpitations Physical Exam Vital Signs: Last Vital Signs Pulse 52 11/11/24 13:14 BP 140/72 H 11/11/24 13:14 BMI result Body Mass Index 22.5 Const General: cooperative, healthy appearing, comfortable and no acute distress Orientation/consciousness: patient oriented x3 HEENT Head: Yes normal to inspection Neck Neck: Yes normal visual inspection, Yes trachea midline and Yes supple Chest Chest palpation & inspection: normal inspection of the chest Resp Effort & Inspection: normal respiratory effort Auscultation: clear to auscultation bilaterally, no crackles, no rales, no rhonchi and no wheezes Cardio Jugular venous distension: no JVD Palpation: normal PMI Rate: bradycardic Rhythm: regular rhythm Heart sounds: S1 normal heart sound present, S2 normal heart sound present, no click, no gallops, Murmur heart sound present and no rubs Peripheral pulses: Peripheral pulses 2+ throughout GI Inspection: Yes normal to inspection Palpation (GI): Soft to palpation Auscultation: normal bowel sounds Skin General skin exam: no rashes or lesions noted Neuro General: patient oriented x3 Extrem General: Yes normal to inspection, No no pedal edema and No calf tenderness Psych Appearance: grossly normal Mental Status: mental status grossly normal Speech and movement: Normal speech and movement present Office Procedures EKG Details: EKG today showed underlying sinus bradycardia at 52 beats per minute with first- degree AV block, PVC, left axis deviation, possible anterior infarct (unchanged), QTC 480 milliseconds. [id number], Complete Assessment & Plan Assessment & Plan (1) PAF (paroxysmal atrial fibrillation): Code(s): I48.0 - Paroxysmal atrial fibrillation Category: Medical Plan: Status post cardioversion, and today's EKG shows sinus rhythm. Continue taking Eliquis and amiodarone therapy. There is no signs of amiodarone toxicity. Metoprolol should be continued at the current low dose, although her blood pressure is elevated because she has a low heart rate at 52 today. The patient has had 3 prior cardioversions. We discussed the option of an ablation in detail, including its indications, procedure, risks, and benefits. The patient is agreeable to seeing in the EP, and we will proceed with a referral to an EP. Patient states since she is aware about her symptoms with AFib, and has a cardio mobile device at home, she would rather not do a Holter following cardioversion. (2) CHF (congestive heart failure): Comment: She was treated for congestive heart failure/bilateral pleural effusions, in June of this year. She stays on diuretic therapy is doing fairly well at this time. Code(s): I50.9 - Heart failure, unspecified Category: Medical Plan: History of heart failure with preserved EF. Continue on current diuretic dose. Echo at [facility] showed an EF of 32% with reduced RV systolic function, biatrial enlargement, severe mitral regurgitation. We will repeat echo. (3) Cardiomyopathy: Comment: She has cardio myopathy, secondary to coronary artery disease. Has low ejection fraction. Also has had atrial fibrillation which is now controlled after cardioversion. Actively followed. Up by Cardiology Code(s): I42.9 - Cardiomyopathy, unspecified Category: Medical Qualifiers: Cardiomyopathy type: other Qualified Code(s): I42.8 - Other cardiomyopathies Plan: As above. (4) Essential hypertension: Code(s): I10 - Essential (primary) hypertension Category: Medical Plan: Blood pressure elevated today however due to a low heart rate we will continue with the current metoprolol dose. (5) S/P cardiac catheterization: Comment: Last cardiac catheterization 04/02/2023 showing mid LAD 30% stenosis, proximal circumflex stent patent, mid circumflex 80% stenosis and stent placed, RCA proximal stent patent, mid RCA 50% stenosis Code(s): Z98.890 - Other specified postprocedural states Category: Medical Plan: Continue Plavix therapy. (6) CAD (coronary artery disease): Comment: (Hx 2 MIs 2018 & 2020 - Hx LCx & RCA stents 2019 - patent on recent 12/2020 cath) Code(s): I25.10 - Atherosclerotic heart disease of [place] coronary artery without angina pectoris Category: Medical Plan: Continue high-dose statin therapy. Last LDL is 72. Ideally her goal should be less than 70. Recommended heart healthy diet, regular exercise, aggressive cholesterol management. Patient will follow-up after visit with the EP. In the interim patient will call us with any concerns. This note was generated using voice recognition software. While every effort has been made to ensure accuracy and proper threshing operator, there may be occasional errors that could affect the content or meaning of the described symptoms. Orders: Orders CA echo transthoracic complete Today I42.8 - Other cardiomyopathies, I48.19 - Other persistent atrial fibrillation AMB EKG-In Office Today I48.0 - Paroxysmal atrial fibrillation Referrals Cardiac Electrophysiology Referral I48.19 - Other persistent atrial fibrillation Coding Level of Care Code Est Pt Level 4 (90407) Diagnoses PAF (paroxysmal atrial fibrillation) I48.0 CHF (congestive heart failure) I50.9 Other cardiomyopathy I42.8 Cardiomyopathy type: other Essential hypertension I10 S/P cardiac catheterization Z98.890 CAD (coronary artery disease) I25.10 CPT Codes EKG - CPT: 11857-Rmpvbkaxivgyuopec, Complete ([id number]) Time Spent (min) 32 Comment Time spent in reviewing the chart, test results, assessment, counseling and documentation.
== END 2024-11-11 14:00 | disposition home or self-care (01) ==
PROVIDERS: PCP Internal Medicine
DX: I48.0 Paroxysmal atrial fibrillation (principal); I50.9 Heart failure, unspecified; I42.8 Other cardiomyopathies; I10 Essential (primary) hypertension; Z98.890 Other specified postprocedural states; I25.10 Atherosclerotic heart disease of native coronary artery without angina pectoris
CPT/HCPCS: 93010; 99214

== ENCOUNTER → 2024-11-24 13:43 | Outpatient (REF) | payer MEDICARE, BC, SELFPAY ==
--- NOTE | 2024-11-24 13:48 | CA_ITS ---
Transthoracic Echocardiogram Patient (Last, First, Middle): Nai Garcia S Gender: Female Date of : 1955 Age: 69 Procedure Date: 11/24/2024 Procedure Type: Transthoracic Echocardiogram Location: OP Height: 167.64 cm Weight: 63.5 kg BSA: 1.72 m2 Heart Rate: 76 bpm BP: 132 / 65 mmHg Glue Specialty Supervisor: KRISS Referring MD: Everett Yip LARGE ANIMAL HUSBANDRY TECHNICIAN Symptoms: I48.19 - Other persistent atrial fibrillation Study Quality: Fair ECG Rhythm: Undetermined Conclusions: - The left ventricular systolic function is mildly decreased. The visually estimated ejection fraction is between 45-50%. - The inferolateral wall, the basal inferior, mid inferior, and basal inferoseptal segments are akinetic. - There is mild to moderate mitral valve regurgitation. Findings Left Ventricle Normal left ventricular cavity size. The left ventricular systolic function is mildly decreased. The visually estimated ejection fraction is between 45 50%. There is evidence of regional wall motion abnormalities. Diastolic function is indeterminate on the basis of available data. There is moderate septal asymmetric hypertrophy. Wall Motion Rest Echo Findings The inferolateral wall, the basal inferior, mid inferior, and basal inferoseptal segments are akinetic. Atria The left atrium is moderately dilated. The right atrium is normal in size. Aortic Valve There is a normal trileaflet aortic valve. There is no aortic valve stenosis. There is no aortic valve regurgitation. Mitral Valve The posterior mitral leaflet has restricted mobility. There is mild to moderate mitral valve regurgitation. There is no mitral valve stenosis. Pulmonic Valve The pulmonic valve is likely normal. Tricuspid Valve There is mild tricuspid valve regurgitation. There is no evidence of pulmonary hypertension. Great Vessels The asc aorta and aortic arch are normal in size. Venous The inferior vena cava is normal in size and collapses greater than 50% with inspiration. Pericardium/Pleural There is no evidence of pericardial effusion. Prior Study Comparison Changes noted compared to prior study dated: 04/26/2024. Measurements 2D Linear Measurements IVSd: 1.36 0.6-0.9/0.6-1.0 cm LVIDd: 4.92 3.9-5.3/4.2-5.9 cm LVIDd Index: 2.86 2.4-3.2/2.2-3.1 cm/m2 LVIDs: 4.05 2.0-3.6 cm LVPWd: 1.00 0.7-1.1 cm LA Diam: 4.00 2.7-3.8/3.0-4.0 cm LAIDs Index: 2.33 1.5-2.3 cm/m2 LV Mass: 276.91 67-162/88-224 g LV Mass Index: 160.99 43-95/49-115 g/m2 LVOT Diam: 1.90 3.0+(-)1.3 cm 2D Systolic Function EF 4C: 53.70 >55% EF 2C: 46.60 >55% EF BiP: 50.30 >55% Mitral Valve MV VTI: 0.33 MV Pk Master: 1.51 MV Mn Master: 0.81 MV Pk Grad: 9.00 MV Mn Grad: 3.00 MV Pk E: 1.31 MV Decel Time: 236.00 E'Lateral: 8.70 E'Medial: 4.71 E/E' Med: 27.80 E/E' Lat: 15.10 PHT: 69.00 MVA PHT: 3.19 MVA Continuity: 1.24 Decel Crowley: 5.56 MR Vol - PW Dopp: 13.20 MR VTI: 2.20 MR ERO: 6.00 MR Alias Master: 0.39 MR RAD: 0.40 Aortic Valve AoV Pk Master: 1.20 AoV Mn Master: 0.81 AoV VTI: 0.24 AoV Pk Grad: 6.00 Aov Mn Grad: 3.00 SHAHRAM Cont.VTI: 1.70 LVOT LVOT Pk Master: 0.75 LVOT Mn Master: 0.54 LVOT VTI: 0.15 LVOT Pk Grad: 2.00 LVOT Mn Grad: 1.00 LVOT Diam: 1.90 LVOT Area: 2.84 Diastolic Function MV Pk E: 1.31 E'Medial: 4.71 E/E' Med: 27.80 E' Laterial: 8.70 E/E' Lat: 15.10 Right Ventricle TAPSE (mm): 16.10 TVS' Master: 9.83 Tricuspid Valve TR Pk Master: 2.50 TR Pk Grad: 25.00 RA Press: 3.00 RVSP: 28.00 Great Vessels Aorta Sinus of Valsalva: 3.10 2.0-3.5 cm Ao Asc: 3.00 2.1-3.4 cm Ao Arch: 3.30 Pulmonary Valve PV Pk Master: 0.76 Peak PV Grad: 2.00 Updated in Other Vendor System with Status of Final John Lizama MD electronically signed on 11/26/2024 2:25:21 PM with status of Final
--- OUTSIDE RECORDS SUMMARY | 2024-11-24 15:56 | XMS_ITS | Encounter Summary ---
Author Organization [facility] Address [address] [place] [address] Care Team Providers Care Custodial Maintenance Worker Name Role Phone Unavailable Primary Care Provider Unavailabl e Encounter Details Date Type Department Care Team (Late st Contact Info) Description 08/28/[address] [facility] - Main Lab [address] [facility] [place] [address] Molly Servin MD [address] [place] [address] Shortness of breath Social History Tobacco Use Types Packs/Day Years Used Date Smoking Tobacco: Never Assessed Sex and Gender Information Value Date Recorded Sex Assigned at Not on file Gender Identity Not on file Sexual Orientation Not on file documented as of this encounter Plan of Treatment Not on file documented as of this encounter Procedures Procedure Name Priority Date/Time Associated Diagnosis Comments TRAVEL PHLEBOTOMY FEE Routine 08/30/2024 7:38 AM EST Shortness of breath COMPLETE BLOOD COUNT Routine 08/30/2024 7:38 AM EST Shortness of breath VITAMIN B12 Routine 08/30/2024 7:38 AM EST Shortness of breath BASIC METABOLIC PANEL Routine 08/30/2024 7:38 AM EST Shortness of breath documented in this encounter Results * (ABNORMAL) Vitamin B12 (08/30/2024 7:38 AM EST) Vitamin B-12 1,750(H) 250 - 900 pcg/mL LAB CHEMISTRY METHOD 08/30/2024 10:18 PM EST [facility] Blood Venous blood specimen / Unknown Venipuncture / Unknown 08/30/2024 7:38 AM EST 08/30/2024 9:32 AM EST Molly Servin MD LAB BLOOD ORDERABLES Performing Organization Address City/[facility]/ZIP Co de Phone Number [facility] [address] [place] [address], [place] [phone] * Travel phlebotomy fee (08/30/2024 7:38 AM EST) [facility] TRAVEL PHLEBOTOMY FEE Completed 08/30/2024 10:01 AM [facility] Blood Venous blood specimen / Unknown Venipuncture / Unknown 08/30/2024 7:38 AM EST 08/30/2024 9:32 AM EST Molly Servin MD LAB BLOOD ORDERABLES Performing Organization Address City/[facility]/ZIP Co de Phone Number [facility] [address] [place] [address], [place] [phone] * (ABNORMAL) Basic metabolic panel (08/30/2024 7:38 AM EST) [facility] Sodium 143 133 - 145 mmol/L LAB CHEMISTRY METHOD 08/30/2024 10:57 AM [facility] Potassium 4.1 3.5 - 5.5 mmol/L LAB CHEMISTRY METHOD 08/30/2024 10:57 AM [facility] Chloride 107 96 - 110 mmol/L LAB CHEMISTRY METHOD 08/30/2024 10:57 AM [facility] CO2 30 21 - 32 mmol/L LAB CHEMISTRY METHOD 08/30/2024 10:57 AM [facility] Anion Gap 6 3 - 11 LAB CHEMISTRY METHOD 08/30/2024 10:57 AM [facility] Glucose 76 70 - 100 mg/dL LAB CHEMISTRY METHOD 08/30/2024 10:57 AM [facility] BUN 31(H) 5 - 25 mg/dL LAB CHEMISTRY METHOD 08/30/2024 10:57 AM [facility] Creatinine 1.87(H) 0.50 - 1.10 mg/dL LAB CHEMISTRY METHOD 08/30/2024 10:57 AM [facility] eGFR 28(L) >=60 mL/min/1. 73m2 LAB CHEMISTRY METHOD 08/30/2024 10:57 AM [facility] LAB Comment:Calculation based on the??Chronic Kidney Disease Epidemiology Collaboration (CKD-EPI) equation refit??without adjustment for race. BUN/Creatinine Ratio 16.6 LAB CHEMISTRY METHOD 08/30/2024 10:57 AM [facility] Calcium 8.9 8.5 - 10.5 mg/dL LAB CHEMISTRY METHOD 08/30/2024 10:57 AM [facility] Blood Venous blood specimen / Unknown Venipuncture / Unknown 08/30/2024 7:38 AM EST 08/30/2024 9:32 AM EST Molly Servin MD LAB BLOOD ORDERABLES [facility] [address] [place] [address], * (ABNORMAL) Complete blood count (08/30/2024 7:38 AM EST) WBC 6.0 4.8 - 10.8 K/mcL LAB HEMETOLOGY METHOD 08/30/2024 10:49 AM [facility] RBC 3.50(L) 3.80 - 4.80 M/[facility] LAB HEMETOLOGY METHOD 08/30/2024 10:49 AM [facility] Hemoglobin 8.5(L) 11.5 - 16.0 g/dL LAB HEMETOLOGY METHOD 08/30/2024 10:49 AM [facility] Hematocrit 29.5(L) 35.0 - 47.0 % LAB HEMETOLOGY METHOD 08/30/2024 10:49 AM [facility] LAB MCV 84.8 79.0 - 98.0 FL LAB HEMETOLOGY METHOD 08/30/2024 10:49 AM [facility] LAB MCH 24.4(L) 27.0 - 32.0 pcg LAB HEMETOLOGY METHOD 08/30/2024 10:49 AM [facility] LAB MCHC 28.8(L) 32.0 - 37.0 g/dL LAB HEMETOLOGY METHOD 08/30/2024 10:49 AM [facility] RDW 19.6(H) 11.0 - 15.0 % LAB HEMETOLOGY METHOD 08/30/2024 10:49 AM [facility] Platelets 223 130 - 400 K/mcL LAB HEMETOLOGY METHOD 08/30/2024 10:49 AM [facility] MPV 10.4 7.0 - 11.0 FL LAB HEMETOLOGY METHOD 08/30/2024 10:49 AM [facility] LAB NRBC 0.0 <1.0 % LAB HEMETOLOGY METHOD 08/30/2024 10:49 AM [facility] LAB NRBC Absolute 0.00 <0.10 K/mcL LAB HEMETOLOGY METHOD 08/30/2024 10:49 AM [facility] Blood Venous blood specimen / Unknown Venipuncture / Unknown 08/30/2024 7:38 AM EST 08/30/2024 9:32 AM EST Molly Servin MD LAB BLOOD ORDERABLES [facility] [address] [place] [address], documented in this encounter Visit Diagnoses Diagnosis Shortness of breath documented in this encounter
--- OUTSIDE RECORDS SUMMARY | 2024-11-24 15:56 | XMS_ITS | Encounter Summary ---
Author Organization [facility] Address [address] [place] [address] Care Team Providers Care Shredded Filler Cutter Operator Name Role Phone Unavailable Primary Care Provider Unavailabl e Encounter Details Date Type Department Care Team (Late st Contact Info) Description 09/02/[address] [facility] - Main Lab [address] [facility] [place] [address] Molly Servin MD [address] [place], [place] [id number] Anemia, unspecified Social History Tobacco Use Types Packs/Day Years Used Date Smoking Tobacco: Never Assessed Sex and Gender Information Value Date Recorded Sex Assigned at Not on file Gender Identity Not on file Sexual Orientation Not on file documented as of this encounter Plan of Treatment Not on file documented as of this encounter Procedures Procedure Name Priority Date/Time Associated Diagnosis Comments COMPLETE BLOOD COUNT Routine 09/02/2024 5:42 AM EST Anemia, unspecified documented in this encounter Results * (ABNORMAL) Complete blood count (09/02/2024 5:42 AM EST) WBC 8.5 4.8 - 10.8 K/[facility] LAB HEMETOLOGY METHOD 09/02/2024 8:22 AM EST [facility] RBC 3.30(L) 3.80 - 4.80 M/[facility] LAB HEMETOLOGY METHOD 09/02/2024 8:22 AM EST [facility] LAB Hemoglobin 8.2(L) 11.5 - 16.0 g/dL LAB HEMETOLOGY METHOD 09/02/2024 8:22 AM EST [facility] LAB Hematocrit 27.8(L) 35.0 - 47.0 % LAB HEMETOLOGY METHOD 09/02/2024 8:22 AM EST [facility] LAB MCV 83.5 79.0 - 98.0 FL LAB HEMETOLOGY METHOD 09/02/2024 8:22 AM [facility] MCH 24.6(L) 27.0 - 32.0 pcg LAB HEMETOLOGY METHOD 09/02/2024 8:22 AM EST [facility] LAB MCHC 29.5(L) 32.0 - 37.0 g/dL LAB HEMETOLOGY METHOD 09/02/2024 8:22 AM [facility] LAB RDW 19.9(H) 11.0 - 15.0 % LAB HEMETOLOGY METHOD 09/02/2024 8:22 AM [facility] Platelets 230 130 - 400 K/mcL LAB HEMETOLOGY METHOD 09/02/2024 8:22 AM EST [facility] LAB MPV 10.5 7.0 - 11.0 FL LAB HEMETOLOGY METHOD 09/02/2024 8:22 AM [facility] NRBC 0.0 <1.0 % LAB HEMETOLOGY METHOD 09/02/2024 8:22 AM [facility] LAB NRBC Absolute 0.00 <0.10 K/mcL LAB HEMETOLOGY METHOD 09/02/2024 8:22 AM [facility] Blood Venous blood specimen / Unknown Venipuncture / Unknown 09/02/2024 5:42 AM EST 09/02/2024 7:50 AM EST Molly Servin MD LAB BLOOD ORDERABLES [facility] [address] [place] [address], documented in this encounter Visit Diagnoses Diagnosis Anemia, unspecified documented in this encounter
--- OUTSIDE RECORDS SUMMARY | 2024-11-24 15:56 | XMS_ITS | Clinical Summary ---
Author Organization [facility] Address [address] [address] Care Team Providers Care Computer Numerical Control Machinist Name Role Phone Rod Wakefield MD Primary Care Provider + Allergies Active Allergy Reactions Criticality Noted Date Comments Codeine 03/19/2021 Medications acetaminophen (TYLENOL 8 HOUR) 650 MG 8 hr tablet Take 650 mg by mouth every 8 (eight) hours if needed for mild pain Do not crush, chew, or split. Active atorvastatin (LIPITOR) 80 MG tablet Take 80 mg by mouth 1 (one) time each day Active clopidogrel (PLAVIX) 75 MG tablet Take 75 mg by mouth 1 (one) time each day Active oxybutynin (DITROPAN) 5 MG tablet Take 5 mg by mouth 2 (two) times a day Active ferrous sulfate 325 (65 Fe) MG tablet Take 1 tablet by mouth 1 (one) time each day 1 Active metoprolol succinate XL (TOPROL-XL) 25 MG 24 hr tablet Take 25 mg by mouth 1 (one) time each day 1 Active PARoxetine (PAXIL) 40 MG tablet Take 40 mg by mouth 1 (one) time each day 1 Active omeprazole (PriLOSEC) [address] capsule Take 20 mg by mouth 1 (one) time each day Do not crush or chew. Active Interferon Beta-1a 30 MCG/0.5ML Auto-injector Kit Inject 30 mL into the shoulder, thigh, or buttocks 1 (one) time per week Active apixaban (ELIQUIS) 5 MG tablet Take 5 mg by mouth in the morning and 5 mg in the evening. Active furosemide (LASIX) 20 MG tablet TAKE 1 TABLET (20 MG TOTAL) BY MOUTH 1 (ONE) TIME EACH DAY 90 tablet 2 2 Active Fluticasone-Candelario meterol 113-14 MCG/ACT aerosol powder INHALE 1 PUFF BY MOUTH 2 TIMES A DAY FOR COPD 2 Active levothyroxine (SYNTHROID, LEVOTHROID) 50 MCG tablet Take 50 mcg by mouth 1 (one) time each day Active lisinopril 5 MG tablet Take 5 mg by mouth 1 (one) time each day 04/24/20 23 Discontinu ed(Med List Maintenanc e) Active Problems Problem Noted Date Diagnosed Date Renal osteodystrophy 10/24/2022 Renal osteodystrophy 07/25/2022 Stage 3b chronic kidney disease 01/21/2022 Renal osteodystrophy 01/21/2022 Stage 3a chronic kidney disease 03/01/2021 Renal artery stenosis 03/01/2021 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 Patient post percutaneous transluminal coronary angioplasty 02/25/2021 Chronic obstructive pulmonary disease 02/25/2021 Essential (primary) hypertension 02/25/2021 Obesity 02/25/2021 Atherosclerosis of coronary artery bypass graft without angina pectoris 02/25/2021 Family History Medical History Relation Comments Diabetes Brother Diabetes Sister Relation Status Comments Brother Sister Social History Tobacco Use Types Packs/Day Years Used Date Smoking Tobacco: Former Cigarettes 1 50 1 969 - 2018 Smokeless Tobacco: Never Comments Unknown Sex and Gender Information Value Date Recorded Sex Assigned at Not on file Legal Sex Female 11:51 AM EST Gender Identity Not on file Sexual Orientation Not on file Last Filed Vital Signs Vital Sign Reading Time Taken Comments Blood Pressure 139/64 04/24/2023 1:26 PM EDT Pulse 69 04/24/2023 1:26 PM EDT Temperature - - Respiratory Rate - - Oxygen Saturation 98% 04/24/2023 1:26 PM EDT Inhaled Oxygen Concentration - - Weight 66 kg (145 lb 9.6 oz) 04/24/2023 1:26 PM EDT Height - - Body Mass Index - - Plan of Treatment Health Maintenance Due Date Last Done Comments Breast Cancer Screening 1955 Pneumococcal Vaccine: 65+ Ye ars (1 of 2 - PCV) 1959 Colorectal Cancer Screening: Annual FOBT 2002 Colorectal Cancer Screening: Colonoscopy 2002 Colorectal Cancer Screening: Sigmoidoscopy 2002 Influenza Vaccine (#1) 2024 Hepatitis B Vaccine Aged Out No longe r eligible based on patient's age to complete this topic Insurance [facility]ICARE [facility]ICARE [facility] Care Teams Computer Numerical Control Machinist Relationship Specialty Start Date End Date Rod Wakefield MD [address] [place] [address] PCP - General Internal Medicine 05/28/21
--- OUTSIDE RECORDS SUMMARY | 2024-11-24 15:56 | XMS_ITS | Encounter Summary ---
Author Organization [facility] Address [address] [place] [address] Care Team Providers Care Maritime Pilot Name Role Phone Unavailable Primary Care Provider Unavailabl e Encounter Details Date Type Department Care Team (Late st Contact Info) Description 09/04/2024 Lab Requisition [facility] - Main Lab [address] [facility] [place] [address] Molly Servin MD [address] [place] [address] Hypotension, unspecified Social History Tobacco Use Types Packs/Day [...] Associated Diagnosis Comments COMPLETE BLOOD COUNT Routine 09/04/2024 8:08 AM EST Hypotension, unspecified BASIC METABOLIC PANEL Routine 09/04/2024 8:08 AM EST Hypotension, unspecified documented in this encounter Results * (ABNORMAL) Basic metabolic panel (09/04/2024 8:08 AM EST) Sodium 144 133 - 145 mmol/L LAB CHEMISTRY METHOD 09/04/2024 11:04 AM EST [facility] Potassium 4.1 3.5 - 5.5 mmol/L LAB CHEMISTRY METHOD 09/04/2024 11:04 AM EST [facility] Chloride 109 96 - 110 mmol/L LAB CHEMISTRY METHOD 09/04/2024 11:04 AM EST [facility] CO2 28 21 - 32 mmol/L LAB CHEMISTRY METHOD 09/04/2024 11:04 AM [facility] Anion Gap 7 3 - 11 LAB CHEMISTRY METHOD 09/04/2024 11:04 AM [facility] Glucose 76 70 - 100 mg/dL LAB CHEMISTRY METHOD 09/04/2024 11:04 AM [facility] BUN 34(H) 5 - 25 mg/dL LAB CHEMISTRY METHOD 09/04/2024 11:04 AM [facility] Creatinine 1.73(H) 0.50 - 1.10 mg/dL LAB CHEMISTRY METHOD 09/04/2024 11:04 AM [facility] LAB eGFR 31(L) >=60 mL/min/1. 73m2 LAB CHEMISTRY METHOD 09/04/2024 11:04 AM [facility] LAB Comment:Calculation based on the??Chronic Kidney Disease Epidemiology Collaboration (CKD-EPI) equation refit??without adjustment for race. BUN/Creatinine Ratio 19.7 LAB CHEMISTRY METHOD 09/04/2024 11:04 AM [facility] Calcium 8.9 8.5 - 10.5 mg/dL LAB CHEMISTRY METHOD 09/04/2024 11:04 AM [facility] Blood Venous blood specimen / Unknown Venipuncture / Unknown 09/04/2024 8:08 AM EST 09/04/2024 9:58 AM EST Molly Servin MD LAB BLOOD ORDERABLES [facility] [address] [place] [address], * (ABNORMAL) Complete blood count (09/04/2024 8:08 AM EST) WBC 5.0 4.8 - 10.8 K/mcL LAB HEMETOLOGY METHOD 09/04/2024 10:41 AM [facility] RBC 3.50(L) 3.80 - 4.80 M/mcL LAB HEMETOLOGY METHOD 09/04/2024 10:41 AM [facility] Hemoglobin 8.8(L) 11.5 - 16.0 g/dL LAB HEMETOLOGY METHOD 09/04/2024 10:41 AM [facility] LAB Hematocrit 29.4(L) 35.0 - 47.0 % LAB HEMETOLOGY METHOD 09/04/2024 10:41 AM [facility] MCV 83.5 79.0 - 98.0 FL LAB HEMETOLOGY METHOD 09/04/2024 10:41 AM [facility] MCH 25.0(L) 27.0 - 32.0 pcg LAB HEMETOLOGY METHOD 09/04/2024 10:41 AM [facility] MCHC 29.9(L) 32.0 - 37.0 g/dL LAB HEMETOLOGY METHOD 09/04/2024 10:41 AM [facility] RDW 19.9(H) 11.0 - 15.0 % LAB HEMETOLOGY METHOD 09/04/2024 10:41 AM [facility] Platelets 248 130 - 400 K/mcL LAB HEMETOLOGY METHOD 09/04/2024 10:41 AM [facility] MPV 10.2 7.0 - 11.0 FL LAB HEMETOLOGY METHOD 09/04/2024 10:41 AM [facility] NRBC 0.0 <1.0 % LAB HEMETOLOGY METHOD 09/04/2024 10:41 AM [facility] NRBC Absolute 0.00 <0.10 K/mcL LAB HEMETOLOGY METHOD 09/04/2024 10:41 AM [facility] Blood Venous blood specimen / Unknown Venipuncture / Unknown 09/04/2024 8:08 AM EST 09/04/2024 9:58 AM EST Molly Servin MD LAB BLOOD ORDERABLES [facility] [address] [place] [address], documented in this encounter Visit Diagnoses Diagnosis Hypotension, unspecified documented in this encounter
--- OUTSIDE RECORDS SUMMARY | 2024-11-24 15:57 | XMS_ITS | Patient Health Record ---
Author Organization [facility] Address [address] [place] [address] Care Team Providers Care Assistant Store Manager Sales Name Role Phone EUGENIO JUAREZ Primary Care Provider Boston Khan Jr Unavailable ALLERGIES Allergen (clinical drug ingredient) Drug/Non Drug Allergy documented on EMR Reaction Allergy Type Onset Date Status codeine Codeine Unknown Drug Allergy Active REASON FOR REFERRAL No Information MEDICATIONS Medication SIG (Take, Route, Frequency, Duration) Notes Start Date End Date Status Vitamin D Active Cyanocobalamin Activ e Fluticasone Propionate Active Ferrous Sulfate 325 (65 Fe) MG Oral for 90 Active Omeprazole 20 MG Oral for 30 A ctive Eliquis 5 MG 1 tablet Oral Twice a day Active oxyBUTYnin Chloride ER 5 MG 1 tablet Ora lly Once a day Active Furosemide 20 MG Oral for 90 A ctive Clopidogrel Bisulfate 75 MG 1 tablet Ora lly Once a day Active Metoprolol Succinate ER 25 MG Oral for 90 Active Interferon Beta-1a A ctive PARoxetine HCl 40 MG Oral for 90 Active Acetaminophen Active Lomotil 2.5-0.025 MG 1 tablet as needed Orally Four times a day for 30 days 12/19/2021 Active oxyBUTYnin Chloride 5 MG Oral for 30 Active Atorvastatin Calcium 80 MG Oral for 90 Active Lisinopril 5 MG 1 tablet Orally Once a day Active amLODIPine Besylate 5 MG Oral for 30 Active IMMUNIZATIONS Vaccine Route Administration Date Status Comme nts Influenza Unknown 10/17/2021 Refused SOCIAL HISTORY Tobacco Use: Social History Observation Description Date Details (start date - stop date) Former Smoker NA - NA Sex Assigned At : Social History Observation Description Sex Assigned At Unknown Tobacco Use/Smoking Question Answer Notes Patient is a former smoker How long has it been since you last smoked? 1-5 years Alcohol Screen Question Answer Notes Did you have a drink containing alcohol in the p ast year? No Points 0 Interpretation Negative PROBLEMS Problem Type ICD Code Onset Dates Problem Status W/U Status Risk SNOMED Code Notes Problem Unspecified atrial fibrillation (I48.91) Active confirmed Atrial fibrillation (14445378) Problem Gastroesophageal reflux disease, unspecified whether esophagitis present (K21.9) Active confirmed 700227209 Problem Gastrointestinal hemorrhage, unspecified gastrointestinal hemorrhage type (K92.2) Active confirmed 03791361 Problem Gastroesophageal reflux (K21.9) Active confirmed Esophageal reflux finding (807486492) Problem Atkins's esophagus without dysplasia (K22.70) Active confirmed 336992533 Problem Polyp of colon, unspecified part of colon, unspecified type (K63.5) Active confirmed 31758650 PLAN OF TREATMENT Pending Test Test Name Order Date CBC w/o DIFF 09/03/2021 STOOL WBC 09/03/2021 OVA & PARASITES (O&P) 09/03/2021 TSH REFLEX FREE T4 09/03/2021 Stool Culture 09/03/2021 Future Test Test Name Order Date UPPER GI ENDOSCOPY 10/17/2021 COLONOSCOPY 10/17/2021 Insurance Providers Payer Name Payer Address Payer Phone Subscriber Number Group Number Insured Name Patient Relationship to Insured Coverage Start Date Coverage End Date MEDICARE OF [place] [address] [place] [address] [id number] JULIANA MULLEN Self - patient is the insured [facility] [address] [place], [place] [id number] [phone] [id number] JULIANA MULLEN Self - patient is the insured MEDICAL (GENERAL) HISTORY Medical History History ICD Code NSTEMI 12/17, cardiac cath sh owing prior stent patency in December, cardiomyopathy, CHF Atrial fibrillation status post cardiove rsion 09/16 COPD Renal artery stenosis, left hypertension Multiple sclerosis Peripheral arterial disease Pulmonary nodules Colonoscopy 12/07 2 adenomas, one with focal high-grade dysplasia. Colon recall 3 years. Gastroesophageal reflux dise ase, Atkins's esophagus on EGD 12/07/21, EGD recall 2 years. Surgical History Surgery Date(Month/Year) Iliac artery stent placements PCI with stent placement 2019, cardiac c atheter 01/14 patent stents Cataract surgery 2020 cholecystectomy 2008
--- OUTSIDE RECORDS SUMMARY | 2024-11-24 15:57 | XMS_ITS | Referral Summary ---
Author Organization [facility] Address [address] [place] [address] Care Team Providers Care Lap Maker Name Role Phone No, Referring Primary Care Provider Unavailabl e Allergies Active Allergy Reactions Criticality Noted Date Comments Codeine Unknown 08/08/2024 Potassium Chloride Abdominal Pain 08/09/2024 PO potassium Medications PARoxetine (PAXIL) 40 mg tablet Take 40 mg by mouth every morning. Active levothyroxine (SYNTHROID, LEVOTHROID) 50 mcg tablet Take 50 mcg by mouth daily. Active terazosin (HYTRIN) 1 mg capsule Take 1 mg by mouth nightly. Active clopidogreL (PLAVIX) 75 mg tablet Take 75 mg by mouth once a day. Active fluticasone propion-salmete roL (ADVAIR DISKUS) 100-50 mcg inhaler Inhale 1 puff by mouth once a day. Rinse mouth with water after use. Do not swallow. Active amiodarone (PACERONE) 200 mg tablet Take 200 mg by mouth once a day. Active pantoprazole DR (PROTONIX) 40 mg tablet Take 40 mg by mouth once a day. Active acetaminophen (TYLENOL) 500 mg tablet Take 1,000 mg by mouth every 6 hours as needed for pain. Active albuterol (PROAIR HFA,VENTOLIN HFA) 90 mcg inhaler Inhale 1-2 puffs by mouth every 6 hours as needed for wheezing or shortness of breath. Use with spacer. Active atorvastatin (LIPITOR) 80 mg tablet Take 80 mg by mouth nightly. Active cholecalciferol (VITAMIN D3) 1,000 unit tablet Take 1,000 Units by mouth once a day. Active cyanocobalamin (vitamin B-12) 1,000 mcg tablet Take 1,000 mcg by mouth once a day. Active docusate sodium (COLACE) 100 mg capsule Take 100 mg by mouth 2 times a day. Active melatonin 3 mg tablet Take 10 mg by mouth nightly. Active apixaban (ELIQUIS) 2.5 mg tablet Take 1 tablet (2.5 mg total) by mouth every 12 hours. Active aspirin 81 mg EC tablet Take 1 tablet (81 mg total) by mouth once a day. Active furosemide (LASIX) 20 mg tablet Take 2 tablets (40 mg total) by mouth once a day. Start on 08/23. Active metoprolol tartrate (LOPRESSOR) 50 mg tablet Take 1 tablet (50 mg total) by mouth every 12 hours. Active tamsulosin (FLOMAX) 0.4 mg capsule Take 1 capsule (0.4 mg total) by mouth nightly. Active Active Problems Problem Noted Date Diagnosed Date Superficial thrombophlebitis of left upper extre mity 08/17/2024 Assessment & Plan (08/20/2024 12:55 PM EDT): Patient with swelling of left upper extremity on 08/16. Upper limb duplex with acute superficial thrombophlebitis of the left celphaic vein in the mid/distal upper arm. Began endorsing RUE swelling on 08/18, R upper limb duplex was negative. Resolved with extremity restriction and supportive care. -Resolved Assessment & Plan (08/19/2024 1:45 PM EDT): Patient with swelling of left upper extremity on 08/16. Upper limb duplex with acute superficial thrombophlebitis of the left celphaic vein in the mid/distal upper arm. Began endorsing RUE swelling on 08/18, R upper limb duplex was negative. - Patient with no PIV in her LUE - Restrict extremity from blood pressures and lab draws - supportive care with elevation and cold compresses Assessment & Plan (08/18/2024 3:41 PM EDT): Patient with swelling of left upper extremity on 08/16. Upper limb duplex with acute superficial thrombophlebitis of the left celphaic vein in the mid/distal upper arm. Began endorsing RUE swelling on 08/18, R upper limb duplex was negative. - Patient with no PIV in her LUE - Restrict extremity from blood pressures and lab draws - supportive care with elevation and cold compresses Assessment & Plan (08/17/2024 2:57 PM EDT): Patient with swelling of left upper extremity on 08/16. Upper limb duplex with acute superficial thrombophlebitis of the left celphaic vein in the mid/distal upper arm. - Patient with no PIV in her LUE - Restrict extremity from blood pressures and lab draws - supportive care with elevation and cold compresses Lung nodule seen on imaging study 08/14/2024 Assessment & Plan (08/20/2024 12:55 PM EDT): Patient was found to have 9 mm lung nodule on CT scan - Follow-up with outpatient provider for surveillance imaging Assessment & Plan (08/19/2024 1:45 PM EDT): Patient was found to have 9 mm lung nodule on CT scan - Follow-up with outpatient provider for surveillance imaging Assessment & Plan (08/18/2024 3:41 PM EDT): Patient was found to have 9 mm lung nodule on CT scan - Follow-up with outpatient provider for surveillance imaging Assessment & Plan (08/17/2024 2:57 PM EDT): Patient was found to have 9 mm lung nodule on CT scan - Follow-up with outpatient provider for surveillance imaging Assessment & Plan (08/16/2024 1:24 PM EDT): Patient was found to have 9 mm lung nodule on CT scan - Follow-up with outpatient provider for surveillance imaging Assessment & Plan (08/15/2024 2:33 PM EDT): Patient was found to have 9 mm lung nodule on CT scan - Follow-up with outpatient provider for surveillance imaging Assessment & Plan (08/15/2024 12:34 PM EDT): Patient was found to have 9 mm lung nodule on CT scan - Follow-up with outpatient provider for surveillance imaging Assessment & Plan (08/14/2024 8:45 PM EDT): Patient was found to have 9 mm lung nodule on CT scan -Follow-up with outpatient provider for surveillance imaging GERD (gastroesophageal reflux disease) Assessment & Plan (08/20/2024 12:55 PM EDT): Home med: Protonix 40 mg daily. Patient continually reported mild nausea throughout admission. - Continue home Protonix 40 mg every day Assessment & Plan (08/19/2024 1:45 PM EDT): Home med: Protonix 40 mg daily. Patient continually reported mild nausea throughout admission. - Continue home Protonix 40 mg every day Assessment & Plan (08/18/2024 3:41 PM EDT): Home med: Protonix 40 mg daily. Patient continually reported mild nausea throughout admission. - Continue home Protonix 40 mg every day Assessment & Plan (08/17/2024 2:57 PM EDT): Home med: Protonix 40 mg daily. Patient continually reported mild nausea throughout admission. - Continue home Protonix 40 mg every day Assessment & Plan (08/16/2024 1:24 PM EDT): Home med: Protonix 40 mg daily. Patient continually reported mild nausea throughout admission. - Continue home Protonix 40 mg every day Assessment & Plan (08/15/2024 2:33 PM EDT): Home med: Protonix 40 mg daily. Patient continually reported mild nausea throughout admission. - Continue home Protonix 40 mg every day Assessment & Plan (08/15/2024 12:34 PM EDT): Home med: Protonix 40 mg daily. Patient continually reported mild nausea throughout admission. - Continue home Protonix 40 mg every day Assessment & Plan (08/14/2024 8:36 PM EDT): Home med: Protonix 40 mg daily. Patient continually reported mild nausea throughout admission. - Continue home Protonix 40 mg every day Assessment & Plan (2024 12:05 PM EDT): Home med: Protonix 40 mg daily. Patient continually reported mild nausea throughout admission. - Continue home Protonix 40 mg every day Assessment & Plan (08/12/2024 7:50 PM EDT): Home med: Protonix 40 mg daily. Patient continually reported mild nausea throughout admission. - Continue home Protonix 40 mg every day Assessment & Plan (08/11/2024 6:29 PM EDT): Home med: Protonix 40 mg daily. Patient continually reported mild nausea throughout admission. - Continue home Protonix 40 mg every day COPD (chronic obstructive pulmonary disease) Assessment & Plan (08/20/2024 12:55 PM EDT): Home med: Fluticasone propionate HFA aerosol 110 MCG/ACT q12h Patient with a history of COPD. Noted to be wheezing with slight crackles at the right base on 08/10. Room air. - Continue home duonebs Assessment & Plan (08/19/2024 1:45 PM EDT): Home med: Fluticasone propionate HFA aerosol 110 MCG/ACT q12h Patient with a history of COPD. Noted to be wheezing with slight crackles at the right base on 08/10. Room air. - Duo neb BID Assessment & Plan (08/18/2024 3:41 PM EDT): Home med: Fluticasone propionate HFA aerosol 110 MCG/ACT q12h Patient with a history of COPD. Noted to be wheezing with slight crackles at the right base on 08/10. Room air. - Duo neb BID Assessment & Plan (08/17/2024 2:57 PM EDT): Home med: Fluticasone propionate HFA aerosol 110 MCG/ACT q12h Patient with a history of COPD. Noted to be wheezing with slight crackles at the right base on 08/10. Room air. - Duo neb BID Assessment & Plan (08/16/2024 1:24 PM EDT): Home med: Fluticasone propionate HFA aerosol 110 MCG/ACT q12h Patient with a history of COPD. Noted to be wheezing with slight crackles at the right base on 08/10. Room air. - Duo neb BID Assessment & Plan (08/15/2024 2:33 PM EDT): Home med: Fluticasone propionate HFA aerosol 110 MCG/ACT q12h Patient with a history of COPD. Noted to be wheezing with slight crackles at the right base on 08/10. Room air. - Duo neb BID Assessment & Plan (08/15/2024 12:34 PM EDT): Home med: Fluticasone propionate HFA aerosol 110 MCG/ACT q12h Patient with a history of COPD. Noted to be wheezing with slight crackles at the right base on 08/10. Room air. - Duo neb BID Assessment & Plan (08/14/2024 8:36 PM EDT): Home med: Fluticasone propionate HFA aerosol 110 MCG/ACT q12h Patient with a history of COPD. Noted to be wheezing with slight crackles at the right base on 08/10. Room air. - Duo neb BID Assessment & Plan (2024 12:05 PM EDT): Home med: Fluticasone propionate HFA aerosol 110 MCG/ACT q12h Patient with a history of COPD. Noted to be wheezing with slight crackles at the right base on 08/10. Room air. - Duo neb BID Assessment & Plan (08/12/2024 7:50 PM EDT): Home med: Fluticasone propionate HFA aerosol 110 MCG/ACT q12h Patient with a history of COPD. Noted to be wheezing with slight crackles at the right base on 08/10. Room air. - Duo neb BID Assessment & Plan (08/11/2024 6:29 PM EDT): Home med: Fluticasone propionate HFA aerosol 110 MCG/ACT q12h Patient with a history of COPD. Noted to be wheezing with slight crackles at the right base on 08/10. Room air. - Duo neb BID Assessment & Plan (08/10/2024 6:12 PM EDT): Patient with a history of COPD, on Advair BID at home. Noted to be wheezing with slight crackles at the right base on 08/10. Room air. - Duo neb BID Depression 08/10/2024 Assessment & Plan (08/20/2024 12:55 PM EDT): Home med: Paroxetine 40 mg daily. Restarted with improving LFTs - continue home Paroxetine Assessment & Plan (08/19/2024 1:45 PM EDT): Home med: Paroxetine 40 mg daily - Restart home med with improving LFTs Assessment & Plan (08/18/2024 3:41 PM EDT): Home med: Paroxetine 40 mg daily - Restart home med with improving LFTs Assessment & Plan (08/17/2024 2:57 PM EDT): Home med: Paroxetine 40 mg daily - Restart home med with improving LFTs Assessment & Plan (08/16/2024 11:57 AM EDT): Home med: Paroxetine 40 mg daily - Restart home med with improving LFTs Assessment & Plan (08/15/2024 2:33 PM EDT): Home med: Paroxetine 40 mg daily - Hold home med due to liver failure Assessment & Plan (08/15/2024 12:34 PM EDT): Home med: Paroxetine 40 mg daily - Hold home med due to liver failure Assessment & Plan (08/14/2024 8:36 PM EDT): Home med: Paroxetine 40 mg daily -Hold home med due to liver failure Assessment & Plan (2024 12:05 PM EDT): Home med: Paroxetine 40 mg daily -Hold home med due to liver failure Assessment & Plan (08/12/2024 7:50 PM EDT): Home med: Paroxetine 40 mg daily -Hold home med due to liver failure Assessment & Plan (08/11/2024 6:29 PM EDT): Home med: Paroxetine 40 mg daily -Hold home med due to liver failure Assessment & Plan (08/10/2024 6:12 PM EDT): Home med: Paroxetine 40 mg daily -Hold home med due to liver failure Anemia 08/09/2024 Assessment & Plan (08/20/2024 12:55 PM EDT): Microcytic anemia. Home med: Iron sulfate 325 mg daily. Presented with H/H 9.3 and 32.5, down trending to 7.9/25.9 in the ED. Baseline per [place] lab Hgb ~8.5-10. No concern of GI bleed. Iron saturation 11%, iron 23, transferrin 170, TIBC 213, Ferritin 853.0. IV Venofer 200 mg given 08/16-08/18. - Eliquis per afib section - Discharge on home iron sulfate Assessment & Plan (08/19/2024 1:45 PM EDT): Microcytic anemia. Home med: Iron sulfate 325 mg daily. Presented with H/H 9.3 and 32.5, down trending to 7.9/25.9 in the ED. Baseline per [place] lab Hgb ~8.5-10. No concern of GI bleed. - Eliquis per afib section - Start IV iron once stable from infection perspective Assessment & Plan (08/18/2024 3:41 PM EDT): Microcytic anemia. Home med: Iron sulfate 325 mg daily. Presented with H/H 9.3 and 32.5, down trending to 7.9/25.9 in the ED. Baseline per [place] lab Hgb ~8.5-10. No concern of GI bleed. - Eliquis per afib section - Start IV iron once stable from infection perspective Assessment & Plan (08/17/2024 2:57 PM EDT): Microcytic anemia. Home med: Iron sulfate 325 mg daily. Presented with H/H 9.3 and 32.5, down trending to 7.9/25.9 in the ED. Baseline per [place] lab Hgb ~8.5-10. No concern of GI bleed. - Eliquis per afib section - Start IV iron once stable from infection perspective Assessment & Plan (08/16/2024 1:21 PM EDT): Microcytic anemia. Home med: Iron sulfate 325 mg daily. Presented with H/H 9.3 and 32.5, down trending to 7.9/25.9 in the ED. Baseline per [place] lab Hgb ~8.5-10. No concern of GI bleed. - Restart home eliquis at lower dose - Start IV iron once stable from infection perspective Assessment & Plan (08/15/2024 2:33 PM EDT): Microcytic anemia. Home med: Iron sulfate 325 mg daily. Presented with H/H 9.3 and 32.5, down trending to 7.9/25.9 in the ED. Baseline per [place] lab Hgb ~8.5-10. No concern of GI bleed. - Holding home eliquis - Will begin IV iron once stable from infection perspective Assessment & Plan (08/15/2024 12:34 PM EDT): Microcytic anemia. Home med: Iron sulfate 325 mg daily. Presented with H/H 9.3 and 32.5, down trending to 7.9/25.9 in the ED. Baseline per [place] lab Hgb ~8.5-10. No concern of GI bleed. - Holding home eliquis - Will begin IV iron once stable from infection perspective Assessment & Plan (08/14/2024 8:36 PM EDT): Microcytic anemia. Home med: Iron sulfate 325 mg daily. Presented with H/H 9.3 and 32.5, down trending to 7.9/25.9 in the ED. Baseline per [place] lab Hgb ~8.5-10. No concern of GI bleed. - Holding home eliquis - Will not begin IV iron as previously stated on prior progress note - patient still being treated for suspected infection Assessment & Plan (2024 2:30 PM EDT): Microcytic anemia. Home med: Iron sulfate 325 mg daily. Presented with H/H 9.3 and 32.5, down trending to 7.9/25.9 in the ED. Baseline per [place] lab Hgb ~8.5-10. No concern of GI bleed. - Holding home eliquis - Will not begin IV iron as previously stated on prior progress note - patient still being treated for suspected infection Assessment & Plan (08/12/2024 7:50 PM EDT): Microcytic anemia. Home med: Iron sulfate 325 mg daily. Presented with H/H 9.3 and 32.5, down trending to 7.9/25.9 in the ED. Baseline per [place] lab Hgb ~8.5-10. No concern of GI bleed. - Holding home eliquis - Will not begin IV iron as previously stated on prior progress note - patient still being treated for suspected infection Assessment & Plan (08/11/2024 6:29 PM EDT): Microcytic anemia. Home med: Iron sulfate 325 mg daily. Presented with H/H 9.3 and 32.5, down trending to 7.9/25.9 in the ED. Baseline per [place] lab Hgb ~8.5-10. No concern of GI bleed. - Holding home eliquis - IV iron started per HF section Assessment & Plan (08/10/2024 6:12 PM EDT): Microcytic anemia. Home med: Iron sulfate 325 mg daily. Presented with H/H 9.3 and 32.5, down trending to 7.9/25.9 in the ED. Baseline per [place] lab Hgb ~8.5-10. No concern of GI bleed. - Holding home anticoagulation Assessment & Plan (08/09/2024 5:57 PM EDT): Patient presented with nose bleeds. Found to be anemic with an H/H 9.3 and 32.5, down trending to 7.9/25.9 in the ED. Baseline per [place] lab hgb ~8.5-10. No concern of GI bleed. - Type and screen Hypothyroidism 08/09/2024 Assessment & Plan (08/20/2024 12:55 PM EDT): Home med: Levothyroxine 50 mcg daily On presentation, TSH elevated to 8.720, T4 1.65. - Cont home Levothyroxine Assessment & Plan (08/19/2024 1:45 PM EDT): Home med: Levothyroxine 50 mcg daily On presentation, TSH elevated to 8.720, T4 1.65. - Cont home med Assessment & Plan (08/18/2024 3:41 PM EDT): Home med: Levothyroxine 50 mcg daily On presentation, TSH elevated to 8.720, T4 1.65. - Cont home med Assessment & Plan (08/17/2024 2:57 PM EDT): Home med: Levothyroxine 50 mcg daily On presentation, TSH elevated to 8.720, T4 1.65. - Cont home med Assessment & Plan (08/16/2024 1:24 PM EDT): Home med: Levothyroxine 50 mcg daily On presentation, TSH elevated to 8.720, T4 1.65. - Cont home med Assessment & Plan (08/15/2024 2:33 PM EDT): Home med: Levothyroxine 50 mcg daily On presentation, TSH elevated to 8.720, T4 1.65. - Cont home med Assessment & Plan (08/15/2024 12:34 PM EDT): Home med: Levothyroxine 50 mcg daily On presentation, TSH elevated to 8.720, T4 1.65. - Cont home med Assessment & Plan (08/14/2024 8:36 PM EDT): Home med: Levothyroxine 50 mcg daily On presentation, TSH elevated to 8.720, T4 1.65. - Cont home med Assessment & Plan (2024 12:05 PM EDT): Home med: Levothyroxine 50 mcg daily On presentation, TSH elevated to 8.720, T4 1.65. - Cont home med Assessment & Plan (08/12/2024 7:50 PM EDT): Home med: Levothyroxine 50 mcg daily On presentation, TSH elevated to 8.720, T4 1.65. - Cont home med Assessment & Plan (08/11/2024 6:29 PM EDT): Home med: Levothyroxine 50 mcg daily On presentation, TSH elevated to 8.720, T4 1.65. - Cont home med Assessment & Plan (08/10/2024 6:12 PM EDT): Home med: Levothyroxine 50 mcg daily On presentation, TSH elevated to 8.720, T4 1.65. - Cont home med Assessment & Plan (08/09/2024 5:57 PM EDT): Home med: Levothyroxine 50 mcg daily On presentation, TSH elevated to 8.720, T4 1.65. - Continue home levothyroxine 50 mcg QD Atrial fibrillation 08/09/2024 Assessment & Plan (08/20/2024 12:55 PM EDT): Home med: Eliquis 5 mg BID, Amio 200 mg daily, Lopressor 50 mg BID, Follows Cardiology at [place]. Called [facility] pharmacy in [place] who reported that she didn't refill her Eliquis in March 2024; however patient reports receiving through mail away pharmacy. Patient noted to be in afib on exam. Eliquis was held due to acute liver failure, restarted at lower dose on 08/16. Patient remained in afib at discharge. - Continue home Amiodarone 200 mg every day - Restarted Eliquis 2.5 mg BID (home dose of 5 mg BID), half dose due to decreased renal function. - Lopressor 50 mg BID Assessment & Plan (08/19/2024 1:45 PM EDT): Home med: Eliquis 5 mg BID, Amio 200 mg daily, Lopressor 50 mg BID, Follows Cardiology at [place]. Called [facility] pharmacy in [place] who reported that she didn't refill her Eliquis in March 2024; however patient reports receiving through mail away pharmacy. Patient noted to be in afib on exam. Eliquis was held due to acute liver failure, restarted at lower dose on 08/16. - Start home Amiodarone 200 mg every day - Hold home Eliquis - Lopressor 50 mg BID Assessment & Plan (08/18/2024 3:41 PM EDT): Home med: Eliquis 5 mg BID, Amio 200 mg daily, Lopressor 50 mg BID, Follows Cardiology at [place]. Called [facility] pharmacy in [place] who reported that she didn't refill her Eliquis in March 2024; however patient reports receiving through mail away pharmacy. Patient noted to be in afib on exam. Eliquis was held due to acute liver failure, restarted at lower dose on 08/16. - Start home Amiodarone 200 mg every day - Hold home Eliquis - Lopressor 50 mg BID Assessment & Plan (08/17/2024 2:57 PM EDT): Home med: Eliquis 5 mg BID, Amio 200 mg daily, Lopressor 50 mg BID, Follows Cardiology at [place]. Called [facility] pharmacy in [place] who reported that she didn't refill her Eliquis in March 2024; however patient reports receiving through mail away pharmacy. Patient noted to be in afib on exam. Eliquis was held due to acute liver failure, restarted at lower dose on 08/16. - Hold home Amio due to acute liver failure - Restart home Eliquis at lower dose of 2.5mg BID - Lopressor 50 mg BID Assessment & Plan (08/16/2024 1:21 PM EDT): Home med: Eliquis 5 mg BID, Amio 200 mg daily, Lopressor 50 mg BID, Follows Cardiology at [place]. Called [facility] pharmacy in [place] who reported that she didn't refill her Eliquis in March 2024; however patient reports receiving through mail away pharmacy. Patient noted to be in afib on exam. Eliquis was held due to acute liver failure, restarted at lower dose on 08/16. - Hold home Amio due to acute liver failure - Restart home Eliquis at lower dose of 2.5mg BID - Lopressor 50 mg BID Assessment & Plan (08/15/2024 2:33 PM EDT): Home med: Eliquis 2.5 mg BID, Amio 200 mg daily, Lopressor 50 mg BID, Follows Cardiology at [place]. Called [facility] pharmacy in [place] who reported that she didn't refill her Eliquis in March 2024; however patient reports receiving through mail away pharmacy. Patient noted to be irregular, irregular on exam. - Hold home Eliquis and Amio due to acute liver failure - Lopressor 50 mg BID Assessment & Plan (08/15/2024 12:34 PM EDT): Home med: Eliquis 2.5 mg BID, Amio 200 mg daily, Lopressor 50 mg BID, Follows Cardiology at [place]. Called [facility] pharmacy in [place] who reported that she didn't refill her Eliquis in March 2024; however patient reports receiving through mail away pharmacy. Patient noted to be irregular, irregular on exam. - Hold home Eliquis and Amio due to acute liver failure - Lopressor 50 mg BID Assessment & Plan (08/14/2024 8:36 PM EDT): Home med: Eliquis 2.5 mg BID, Amio 200 mg daily, Lopressor 50 mg BID, Follows Cardiology at [place]. Called [facility] pharmacy in [place] who reported that she didn't refill her Eliquis in March 2024. Patient noted to be irregular, irregular on exam. - Hold home Eliquis and Amio due to acute liver failure. - Lopressor 50 mg BID Assessment & Plan (2024 2:30 PM EDT): Home med: Eliquis 2.5 mg BID, Amio 200 mg daily, Follows Cardiology at [place]. Called [facility] pharmacy in [place] who reported that she didn't refill her Eliquis in March 2024. Patient noted to be irregular, irregular on exam. - Hold home Eliquis - Lopressor 50 mg BID Assessment & Plan (08/12/2024 7:50 PM EDT): Home med: Eliquis 2.5 mg BID, Amio 200 mg daily, Follows Cardiology at [place]. Called [facility] pharmacy in [place] who reported that she didn't refill her Eliquis in March 2024. Patient noted to be irregular, irregular on exam. - Hold home Eliquis - Lopressor 50 mg BID Assessment & Plan (08/11/2024 6:29 PM EDT): Home med: Eliquis 2.5 mg BID, Amio 200 mg daily, Follows Cardiology at [place]. Called [facility] pharmacy in [place] who reported that she didn't refill her Eliquis in March 2024. Patient noted to be irregular, irregular on exam. - Hold home Eliquis - Lopressor 50 mg BID Assessment & Plan (08/10/2024 6:12 PM EDT): Home med: Eliquis 2.5 mg BID, Amio 200 mg daily, Follows Cardiology at [place]. Called [facility] pharmacy in [place] who reported that she didn't refill her Eliquis in March 2024. Patient noted to be irregular, irregular on exam. - Hold home Eliquis - Lopressor 25 mg BID Assessment & Plan (08/09/2024 5:57 PM EDT): History of afib, reportedly on Eliquis. Follows Cardiology at [place]. Called [facility] pharmacy in [place] who reported that she didn't refill her Eliquis in March 2024. Patient noted to be irregular, irregular on exam. - Hold home eliquis. Coronary artery disease 08/09/2024 Assessment & Plan (08/20/2024 12:57 PM EDT): History of CAD s/p x3 stents, stent in 2018, angioplasty with stent 09/2018. Cardiac cath 12/2020.Home meds: Atorvastatin 80 mg every day. Patient denies taking any aspirin at home. Atorvastatin was held due to acute liver failure, but restarted with improving LFTs. -Continue home atorvastatin -Start aspirin 81mg Assessment & Plan (08/19/2024 1:45 PM EDT): History of CAD s/p x3 stents, stent in 2019, angioplasty with stent 09/2018. Cardiac cath 12/2020.Home meds: Atorvastatin 80 mg every day. Patient denies taking any aspirin at home. Atorvastatin was held due to acute liver failure, but restarted with improving LFTs. -Restart home statin Assessment & Plan (08/18/2024 3:41 PM EDT): History of CAD s/p x3 stents, stent in 2018, angioplasty with stent 09/2018. Cardiac cath 12/2020.Home meds: Atorvastatin 80 mg every day. Patient denies taking any aspirin at home. Atorvastatin was held due to acute liver failure, but restarted with improving LFTs. -Restart home statin Assessment & Plan (08/17/2024 2:57 PM EDT): History of CAD s/p x3 stents, stent in 2019, angioplasty with stent 09/2018. Cardiac cath 12/2020.Home meds: Atorvastatin 80 mg every day. Patient denies taking any aspirin at home. Atorvastatin was held due to acute liver failure, but restarted with improving LFTs. -Restart home statin Assessment & Plan (08/16/2024 11:57 AM EDT): History of CAD s/p x3 stents, stent in 2019, angioplasty with stent 09/2018. Cardiac cath 12/2020.Home meds: Atorvastatin 80 mg every day. Patient denies taking any aspirin at home. Atorvastatin was held due to acute liver failure, but restarted with improving LFTs. -Restart home statin Assessment & Plan (08/15/2024 2:33 PM EDT): History of CAD s/p x3 stents, stent in 2019, angioplasty with stent 09/2018. Cardiac cath 12/2020.Home meds: Atorvastatin 80 mg every day. Patient denies taking any aspirin at home -Hold home statin due to liver failure Assessment & Plan (08/15/2024 12:34 PM EDT): History of CAD s/p x3 stents, stent in 2019, angioplasty with stent 09/2018. Cardiac cath 12/2020.Home meds: Atorvastatin 80 mg every day. Patient denies taking any aspirin at home -Hold home statin due to liver failure Assessment & Plan (08/14/2024 8:36 PM EDT): History of CAD s/p x3 stents, stent in 2019, angioplasty with stent 09/2018. Cardiac cath 12/2020.Home meds: Atorvastatin 80 mg every day. Patient denies taking any aspirin at home -Hold home statin due to liver failure Assessment & Plan (2024 12:05 PM EDT): History of CAD s/p x3 stents, stent in 2018, angioplasty with stent 09/2018. Cardiac cath 12/2020.Home meds: Atorvastatin 80 mg every day. Patient denies taking any aspirin at home -Hold home statin due to liver failure Assessment & Plan (08/12/2024 7:50 PM EDT): History of CAD s/p x3 stents, stent in 2018, angioplasty with stent 09/2018. Cardiac cath 12/2020.Home meds: Atorvastatin 80 mg every day. Patient denies taking any aspirin at home -Hold home statin due to liver failure Assessment & Plan (08/11/2024 6:29 PM EDT): History of CAD s/p x3 stents, stent in 2018, angioplasty with stent 09/2018. Cardiac cath 12/2020.Home meds: Atorvastatin 80 mg every day. Patient denies taking any aspirin at home -Hold home statin due to liver failure Assessment & Plan (08/10/2024 6:12 PM EDT): History of CAD s/p x3 stents Home meds: Atorvastatin 80 mg every day. Unknown if patient takes aspirin at home. -Hold home statin due to liver failure Assessment & Plan (08/09/2024 5:57 PM EDT): History of CAD s/p x3 stents Peripheral artery disease 08/09/2024 Assessment & Plan (08/20/2024 12:55 PM EDT): Patient reports a history of PAD s/p stenting in BLE, she is on Plavix 75 mg daily. - Continue Home plavix 75 mg daily Assessment & Plan (08/19/2024 1:45 PM EDT): Patient reports a history of PAD s/p stenting in BLE, she is on Plavix 75 mg daily. - Continue Home plavix 75 mg daily Assessment & Plan (08/18/2024 3:41 PM EDT): Patient reports a history of PAD s/p stenting in BLE, she is on Plavix 75 mg daily. - Continue Home plavix 75 mg daily Assessment & Plan (08/17/2024 2:57 PM EDT): Patient reports a history of PAD s/p stenting in BLE, she is on Plavix 75 mg daily. - Continue Home plavix 75 mg daily Assessment & Plan (08/16/2024 1:24 PM EDT): Patient reports a history of PAD s/p stenting in BLE, she is on Plavix 75 mg daily. - Continue Home plavix 75 mg daily Assessment & Plan (08/15/2024 2:33 PM EDT): Patient reports a history of PAD s/p stenting in BLE, she is on Plavix 75 mg daily. - Continue Home plavix 75 mg daily Assessment & Plan (08/15/2024 12:34 PM EDT): Patient reports a history of PAD s/p stenting in BLE, she is on Plavix 75 mg daily. - Continue Home plavix 75 mg daily Assessment & Plan (08/14/2024 8:36 PM EDT): Patient reports a history of PAD s/p stenting in BLE, she is on Plavix 75 mg daily. - Continue Home plavix 75 mg daily Assessment & Plan (2024 12:05 PM EDT): Patient reports a history of PAD s/p stenting in BLE, she is on Plavix 75 mg daily. - Continue Home plavix 75 mg daily Assessment & Plan (08/12/2024 7:50 PM EDT): Patient reports a history of PAD s/p stenting in BLE, she is on Plavix 75 mg daily. - Continue Home plavix 75 mg daily Assessment & Plan (08/11/2024 6:29 PM EDT): Patient reports a history of PAD s/p stenting in BLE, she is on Plavix 75 mg daily. - Home plavix 75 mg daily Assessment & Plan (08/10/2024 6:12 PM EDT): Patient reports a history of PAD s/p stenting in BLE, she is on Plavix 75 mg daily. - Home plavix 75 mg daily Assessment & Plan (08/09/2024 5:57 PM EDT): Patient reports a history of PAD s/p stenting in BLE, she is on Plavix 75 mg daily. BLE are cool to the touch, with eschar overlying the dorsum of the left foot, she denies any pain. - Hold home Plavix for now Resolved Problems Problem Noted Date Diagnosed Date Resolved Date Hydronephrosis 08/17/2024 08/20/2024 Assessment & Plan (08/20/2024 1:00 PM EDT): Patient underwent CT chest on 08/17 after developing worsening dyspnea and tachycardia to 130 during PT, which demonstrated marked bilateral hydronephrosis new since 08/09/2024 when Mahoney catheter with indwelling. US bladder and kidney without evidence of stone. Patient underwent straight cath x2, removing ~1.1 L. Patient with baseline incontinence of urine, stating that her urine usually dribbles out. She follows with urology at [place]. She has required straight caths before, and she had a chronic Mahoney for 3 years at one point. Started on tamsulosin. Patient had Mahoney catheter placed, repeat RBUS >48 hours later demonstrated resolution of bilateral hydronephrosis, no obvious evidence of obstruction. - Discharge with mahoney catheter in place - Continue tamsulosin 0.4 mg nightly - Follow up with urologist Assessment & Plan (08/19/2024 1:45 PM EDT): Patient underwent CT chest on 08/17 after developing worsening dyspnea and tachycardia to 130 during PT, which demonstrated marked bilateral hydronephrosis new since 08/09/2024 when Mahoney catheter with indwelling. US bladder and kidney without evidence of stone. Patient underwent straight cath x2, removing ~1.1 L. Patient with baseline incontinence of urine, stating that her urine usually dribbles out. She follows with urology at [place]. She has required straight caths before, and she had a chronic Mahoney for 3 years at one point. UOP has been monitored via Purewick. - Repeat CT abdomen pelvis with moderate right hydroureteronephrosis and mild left hydronephrosis is new compared to the CT study from 08/09. No etiology of obstruction. - Mahoney catheter placed - Monitor I/Os - Repeat RBUS demonstrated resolved hydronephrosis s/p mahoney placement Assessment & Plan (08/18/2024 3:41 PM EDT): Patient underwent CT chest on 08/17 after developing worsening dyspnea and tachycardia to 130 during PT, which demonstrated marked bilateral hydronephrosis new since 08/09/2024 when Mahoney catheter with indwelling. US bladder and kidney without evidence of stone. Patient underwent straight cath x2, removing ~1.1 L. Patient with baseline incontinence of urine, stating that her urine usually dribbles out. She follows with urology at [place]. She has required straight caths before, and she had a chronic Mahoney for 3 years at one point. UOP has been monitored via Purewick. - Repeat CT abdomen pelvis with moderate right hydroureteronephrosis and mild left hydronephrosis is new compared to the CT study from 08/09. No etiology of obstruction. - Mahoney catheter placed - Monitor I/Os - urology recs below: -Continue mahoney -Repeat RBUS in 72 hours (08/20) to monitor for resolution of hydronephrosis with bladder decompression Assessment & Plan (08/17/2024 2:57 PM EDT): Patient underwent CT chest on 08/17 after developing worsening dyspnea and tachycardia to 130 during PT, which demonstrated marked bilateral hydronephrosis new since 08/09/2024 when Mahoney catheter with indwelling. US bladder and kidney without evidence of stone. Patient underwent straight cath x2, removing ~1.1 L. Patient with baseline incontinence of urine, stating that her urine usually dribbles out. She follows with urology at [place]. She has required straight caths before, and she had a chronic Mahoney for 3 years at one point. UOP has been monitored via Purewick. - Repeat CT abdomen pelvis with moderate right hydroureteronephrosis and mild left hydronephrosis is new compared to the CT study from 08/09. No etiology of obstruction. - Urology consult, hold eliquis pending recs - Mahoney catheter placed - Monitor I/Os - urology recs below: -Continue mahoney -Repeat RBUS in 48-72 hours to monitor for resolution of hydronephrosis with bladder decompression Constipation 08/16/2024 08/20/2024 Assessment & Plan (08/20/2024 12:55 PM EDT): Patient last BM was over a week ago as of 08/16. - Colace 100 mg BID - Increase senna to 17.2 mg BID - Start miralax 17g BID Assessment & Plan (08/19/2024 1:45 PM EDT): Patient last BM was over a week ago as of 08/16. - Colace 100 mg BID - Increase senna to 17.2 mg BID - Start miralax 17g BID Assessment & Plan (08/18/2024 3:41 PM EDT): Patient last BM was over a week ago as of 08/16. - Colace 100 mg BID - Increase senna to 17.2 mg BID - Start miralax 17g BID Assessment & Plan (08/17/2024 2:57 PM EDT): Patient last BM was over a week ago as of 08/16. - Colace 100 mg BID - Increase senna to 17.2 mg BID - Start miralax 17g BID Assessment & Plan (08/16/2024 1:24 PM EDT): Patient last BM was over a week ago as of 08/16. - Colace 100 mg BID - Increase senna to 17.2 mg BID - Start miralax 17g BID Septic shock 08/09/2024 08/20/2024 Assessment & Plan (08/20/2024 12:55 PM EDT): Patient presented to the ED hypotensive and hypothermic, requiring bear hugger and brief Levophed. Patient with a history of recent admission for UTI, possibly partially treated as well as chronic wound to dorsum of left foot. Patient reports a history of frequent UTI's. CT AP and CXR chest are negative for any obvious infectious source. Leukocytosis to 13.8 in the ED. Lactate initially 11.3, but improved to 2.9 after fluids. IV Cefepime/Vanc started in the ED. 10/ blood cultures grew Staph epi & Staph hemolyticus. Urine cultures and repeat BCX negative. Discontinued vancomycin 08/11. IV cefepime completed (08/09-08/16). ID curbsided as workup negative for infectious source, state that patient's history of MS and hyperthyroidism are more likely reasons for why patient was hypotensive and hypothermic. -Resolved Assessment & Plan (08/19/2024 1:45 PM EDT): Patient presented to the ED hypotensive and hypothermic, requiring bear hugger and brief Levophed. Patient with a history of recent admission for UTI, possibly partially treated as well as chronic wound to dorsum of left foot. Patient reports a history of frequent UTI's. CT AP and CXR chest are negative for any obvious infectious source. Leukocytosis to 13.8 in the ED. Lactate initially 11.3, but improved to 2.9 after fluids. IV Cefepime/Vanc started in the ED. 10/ blood cultures grew Staph epi & Staph hemolyticus. Urine cultures and repeat BCX negative. Discontinued vancomycin 08/11. IV cefepime completed (08/09-08/16). ID curbsided as workup negative for infectious source, state that patient's history of MS and hyperthyroidism are more likely reasons for why patient was hypotensive and hypothermic. -Resolved Assessment & Plan (08/18/2024 3:41 PM EDT): Patient presented to the ED hypotensive and hypothermic, requiring bear hugger and brief Levophed. Patient with a history of recent admission for UTI, possibly partially treated as well as chronic wound to dorsum of left foot. Patient reports a history of frequent UTI's. CT AP and CXR chest are negative for any obvious infectious source. Leukocytosis to 13.8 in the ED. Lactate initially 11.3, but improved to 2.9 after fluids. IV Cefepime/Vanc started in the ED. 10/ blood cultures grew Staph epi & Staph hemolyticus. Urine cultures and repeat BCX negative. Discontinued vancomycin 08/11. IV cefepime completed (08/09-08/16). ID curbsided as workup negative for infectious source, state that patient's history of MS and hyperthyroidism are more likely reasons for why patient was hypotensive and hypothermic. -Resolved Assessment & Plan (08/17/2024 2:57 PM EDT): Patient presented to the ED hypotensive and hypothermic, requiring bear hugger and brief Levophed. Patient with a history of recent admission for UTI, possibly partially treated as well as chronic wound to dorsum of left foot. Patient reports a history of frequent UTI's. CT AP and CXR chest are negative for any obvious infectious source. Leukocytosis to 13.8 in the ED. Lactate initially 11.3, but improved to 2.9 after fluids. IV Cefepime/Vanc started in the ED. 08/08 blood cultures grew Staph epi & Staph hemolyticus. Urine cultures and repeat BCX negative. Discontinued vancomycin 08/11. IV cefepime completed (08/09-08/16). ID curbsided as workup negative for infectious source, state that patient's history of MS and hyperthyroidism are more likely reasons for why patient was hypotensive and hypothermic. -Resolved Assessment & Plan (08/16/2024 11:57 AM EDT): Patient presented to the ED hypotensive and hypothermic, requiring bear hugger and brief Levophed. Patient with a history of recent admission for UTI, possibly partially treated as well as chronic wound to dorsum of left foot. Patient reports a history of frequent UTI's. CT AP and CXR chest are negative for any obvious infectious source. Leukocytosis to 13.8 in the ED. Lactate initially 11.3, but improved to 2.9 after fluids. IV Cefepime/Vanc started in the ED. 08/08 blood cultures grew Staph epi & Staph hemolyticus. Urine cultures and repeat BCX negative. Discontinued vancomycin 08/11. IV cefepime completed (08/09-08/16). ID curbsided as workup negative for infectious source, state that patient's history of MS and hyperthyroidism are more likely reasons for why patient was hypotensive and hypothermic. -Resolved Assessment & Plan (08/15/2024 2:33 PM EDT): Patient presented to the ED hypotensive and hypothermic, requiring bear hugger and brief Levophed. Patient with a history of recent admission for UTI, possibly partially treated as well as chronic wound to dorsum of left foot. Patient reports a history of frequent UTI's. CT AP and CXR chest are negative for any obvious infectious source. Leukocytosis to 13.8 in the ED. Lactate initially 11.3, but improved to 2.9 after fluids. IV Cefepime/Vanc started in the ED. 08/08 blood cultures grew Staph epi & Staph hemolyticus. Urine cultures and repeat BCX negative. Discontinued vancomycin 08/11. - Continue IV cefepime (08/09--08/16) for 7 days Assessment & Plan (08/15/2024 12:34 PM EDT): Patient presented to the ED hypotensive and hypothermic, requiring bear hugger and brief Levophed. Patient with a history of recent admission for UTI, possibly partially treated as well as chronic wound to dorsum of left foot. Patient reports a history of frequent UTI's. CT AP and CXR chest are negative for any obvious infectious source. Leukocytosis to 13.8 in the ED. Lactate initially 11.3, but improved to 2.9 after fluids. IV Cefepime/Vanc started in the ED. 08/08 blood cultures grew Staph epi & Staph hemolyticus. Urine cultures and repeat BCX negative. Discontinued vancomycin 08/11. - Continue IV cefepime (08/09--08/16) for 7 days Assessment & Plan (08/14/2024 8:36 PM EDT): Patient presented to the ED hypotensive and hypothermic, requiring nata hugger and Levophed. Patient with a history of recent admission for UTI, possibly partially treated as well as chronic wound to dorsum of left foot. Patient reports a history of frequent UTI's. CT AP and CXR chest are negative for any obvious infectious source. Leukocytosis to 13.8 in the ED. Lactate initially 11.3, but improved to 2.9 after fluids. Blood cultures grew G(+) Staph epi & Staph hemolyticus. IV Cefepime started in the ED. Urine cultures and repeat BCX negative. Discontinue vancomycin due to suspicion of contaminants and blood culture - Continue IV cefepime (08/09--08/16) for 7 days - See decompensated HF for TTE results Assessment & Plan (2024 2:30 PM EDT): Patient presented to the ED hypotensive and hypothermic, requiring nata hugger and Levophed. Patient with a history of recent admission for UTI, possibly partially treated as well as chronic wound to dorsum of left foot. Patient reports a history of frequent UTI's. CT AP and CXR chest are negative for any obvious infectious source. Leukocytosis to 13.8 in the ED. Lactate initially 11.3, but improved to 2.9 after fluids. Blood cultures grew G(+) Staph epi & Staph hemolyticus. IV Cefepime started in the ED. Urine cultures negative. Ordered 1 g Vanco @ 1700 then recheck random vancomycin level at 1600 08/11. - Follow up BCX - Continue IV cefepime for at least 7 days - Hold vanc - See decompensated HF for TTE results Assessment & Plan (08/12/2024 7:50 PM EDT): Patient presented to the ED hypotensive and hypothermic, requiring nata hugger and Levophed. Patient with a history of recent admission for UTI, possibly partially treated as well as chronic wound to dorsum of left foot. Patient reports a history of frequent UTI's. CT AP and CXR chest are negative for any obvious infectious source. Leukocytosis to 13.8 in the ED. Lactate initially 11.3, but improved to 2.9 after fluids. Blood cultures grew G(+) Staph epi & Staph hemolyticus. IV Cefepime started in the ED. Urine cultures negative. Ordered 1 g Vanco @ 1700 then recheck random vancomycin level at 1600 08/11. - Follow up BCX - Continue IV cefepime for at least 7 days - Vanc level 21.5, will follow up vancomycin level this afternoon; likely not to re-dose due to low suspicion of G(+) bacteremia - See decompensated HF for TTE results Assessment & Plan (08/11/2024 6:29 PM EDT): Patient presented to the ED hypotensive and hypothermic, requiring nata hugger and Levophed. Patient with a history of recent admission for UTI, possibly partially treated as well as chronic wound to dorsum of left foot. Patient reports a history of frequent UTI's. CT AP and CXR chest are negative for any obvious infectious source. Leukocytosis to 13.8 in the ED. Lactate initially 11.3, but improved to 2.9 after fluids. Blood cultures grew G(+) Staph epi & Staph hemolyticus. IV Cefepime started in the ED. Urine cultures negative. Ordered 1 g Vanco @ 1700 then recheck random vancomycin level at 1600 08/11. - Follow up BCX - Continue IV cefepime - Vanc level 21.5, will follow up vancomycin level this afternoon; likely not to re-dose due to low suspicion of G(+) bacteremia - See decompensated HF for TTE results Assessment & Plan (08/10/2024 6:12 PM EDT): Patient presented to the ED hypotensive and hypothermic, requiring nata hugger and Levophed. Patient with a history of recent admission for UTI, possibly partially treated as well as chronic wound to dorsum of left foot. Patient reports a history of frequent UTI's. CT AP and CXR chest are negative for any obvious infectious source. Leukocytosis to 13.8 in the ED. Lactate initially 11.3, but improved to 2.9 after fluids. Blood cultures grew G(+) cocci in clusters in 12.6 hrs. IV Cefepime started in the ED. Urine cultures negative. Ordered 1 g Vanco @ 1700 then recheck random vancomycin level at 1600 08/11 - Continue IV cefepime - Received 1g Vanc on 08/09 - Repeat blood cultures ordered - TTE ordered Assessment & Plan (08/09/2024 5:57 PM EDT): Patient presented to the ED hypotensive and hypothermic, requiring bear hugger and Levophed. Patient with a history of recent admission for UTI, possibly partially treated as well as chronic wound to dorsum of left foot. Patient reports a history of frequent UTI's. CT AP and CXR chest are negative for any obvious infectious source. Leukocytosis to 13.8 in the ED. Lactate initially 11.3, but improved to 2.9 after fluids. Blood cultures grew G(+) cocci in clusters in 12.6 hrs. IV Cefepime started in the ED. - Continue IV cefepime - Start vancomycin; will follow up on trough on 08/10 - TTE ordered Decompensated heart failure 08/09/2024 08/20/2024 Assessment & Plan (08/20/2024 12:55 PM EDT): Home meds: Amio 200 mg daily, Metoprolol succinate 25 mg, Metoprolol tartrate 37.5 BID, Furosemide 20 mg PO every day Follows alarm service technician at [facility] (Dr. 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 By report, Echocardiogram was done at OSH on 04/26/2024 showing EF 40-45%, evidence of regional wall motion abnormalities, left atrium severely dilated and moderate mitral valve regurgitation, overall no changes from last echo. Presenting for several days of worsening orthopnea. New oxygen requirement on 2L NC, CXR showed pulmonary edema but clinically doesn't appear volume overload. Pro-BNP 64,308. Trop elevated to 34, likely demand ischemia in the setting of acute infection. Widened QRS on EKG resolve once K was corrected. No evidence of acute ischemia on EKG. TTE on 08/11 with LVEF 32%, with reduced RV systolic function, biatrial enlargement, severe mitral regurgitation. Consider possible cardiogenic shock component to presentation of SUSAN and shock liver, as patient has been noted to be in afib with RVR. 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 Per cardiology, ischemic workup not indicated. - Restart home Lasix 40 mg PO on Friday at rehab, recheck BMP in one week - Continue home Amiodarone 200 mg every day - Continue Lopressor 50 mg BID Assessment & Plan (08/19/2024 1:45 PM EDT): Home meds: Amio 200 mg daily, Metoprolol succinate 37.5 mg QD, Metoprolol tartrate 37.5 mg every day (?), Furosemide 20 mg PO every day Follows alarm service technician at [facility] (Dr. 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 By report, Echocardiogram was done at OSH on 04/26/2024 showing EF 40-45%, evidence of regional wall motion abnormalities, left atrium severely dilated and moderate mitral valve regurgitation, overall no changes from last echo. Presenting for several days of worsening orthopnea. New oxygen requirement on 2L NC, CXR showed pulmonary edema but clinically doesn't appear volume overload. Pro-BNP 64,308. Trop elevated to 34, likely demand ischemia in the setting of acute infection. Widened QRS on EKG resolve once K was corrected. No evidence of acute ischemia on EKG. TTE on 08/11 with LVEF 32%, with reduced RV systolic function, biatrial enlargement, severe mitral regurgitation. Consider possible cardiogenic shock component to presentation of SUSAN and shock liver, as patient has been noted to be in afib with RVR. 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 Per cardiology, ischemic workup not indicated. - Hold home lasix dose - Continue home Amiodarone 200 mg every day - Lopressor 50 mg BID - No need for spot dose with IV lasix 20 mg today as patient more euvolemic Assessment & Plan (08/18/2024 3:41 PM EDT): Home meds: Amio 200 mg daily, Metoprolol succinate 37.5 mg QD, Metoprolol tartrate 37.5 mg every day (?), Furosemide 20 mg PO every day Follows alarm service technician at [facility] (Dr. 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 By report, Echocardiogram was done at OSH on 04/26/2024 showing EF 40-45%, evidence of regional wall motion abnormalities, left atrium severely dilated and moderate mitral valve regurgitation, overall no changes from last echo. Presenting for several days of worsening orthopnea. New oxygen requirement on 2L NC, CXR showed pulmonary edema but clinically doesn't appear volume overload. Pro-BNP 64,308. Trop elevated to 34, likely demand ischemia in the setting of acute infection. Widened QRS on EKG resolve once K was corrected. No evidence of acute ischemia on EKG. TTE on 08/11 with LVEF 32%, with reduced RV systolic function, biatrial enlargement, severe mitral regurgitation. Consider possible cardiogenic shock component to presentation of SUSAN and shock liver, as patient has been noted to be in afib with RVR. 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 Per cardiology, ischemic workup not indicated. - Hold home lasix dose - Restarting home Amiodarone 200 mg every day - Lopressor 50 mg BID - No need for spot dose with IV lasix 20 mg today as patient more euvolemic Assessment & Plan (08/17/2024 2:57 PM EDT): Home meds: Amio 200 mg daily, Metoprolol succinate 37.5 mg QD, Metoprolol tartrate 37.5 mg every day (?), Furosemide 20 mg PO every day Follows alarm service technician at [facility] (Dr. 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 By report, Echocardiogram was done at OSH on 04/26/2024 showing EF 40-45%, evidence of regional wall motion abnormalities, left atrium severely dilated and moderate mitral valve regurgitation, overall no changes from last echo. Presenting for several days of worsening orthopnea. New oxygen requirement on 2L NC, CXR showed pulmonary edema but clinically doesn't appear volume overload. Pro-BNP 64,308. Trop elevated to 34, likely demand ischemia in the setting of acute infection. Widened QRS on EKG resolve once K was corrected. No evidence of acute ischemia on EKG. TTE on 08/11 with LVEF 32%, with reduced RV systolic function, biatrial enlargement, severe mitral regurgitation. Consider possible cardiogenic shock component to presentation of SUSAN and shock liver, as patient has been noted to be in afib with RVR. 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 Per cardiology, ischemic workup not indicated. - Hold home lasix dose - Hold amiodarone in setting of acute liver injury (restarting paxil and lipitor today, will consider restarting later if LFTs continue to downtrend) - Lopressor 50 mg BID - Per cardiology (HF), unclear etiology for shock (cardiogenic vs vasodilatory). Will be able to tolerate cardiac medications when labs are more stable. No further intervention indicated at this time - No need for spot dose with IV lasix 20 mg today as patient more euvolemic Assessment & Plan (08/16/2024 1:21 PM EDT): Home meds: Amio 200 mg daily, Metoprolol succinate 37.5 mg QD, Metoprolol tartrate 37.5 mg every day (?), Furosemide 20 mg PO every day Follows alarm service technician at [facility] (Dr. 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 By report, Echocardiogram was done at OSH on 04/26/2024 showing EF 40-45%, evidence of regional wall motion abnormalities, left atrium severely dilated and moderate mitral valve regurgitation, overall no changes from last echo. Presenting for several days of worsening orthopnea. New oxygen requirement on 2L NC, CXR showed pulmonary edema but clinically doesn't appear volume overload. Pro-BNP 64,308. Trop elevated to 34, likely demand ischemia in the setting of acute infection. Widened QRS on EKG resolve once K was corrected. No evidence of acute ischemia on EKG. TTE on 08/11 with LVEF 32%, with reduced RV systolic function, biatrial enlargement, severe mitral regurgitation. Consider possible cardiogenic shock component to presentation of SUSAN and shock liver, as patient has been noted to be in afib with RVR. 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 Per cardiology, ischemic workup not indicated. - Hold home lasix dose - Hold amiodarone in setting of acute liver injury (restarting paxil and lipitor today, will consider restarting later if LFTs continue to downtrend) - Lopressor 50 mg BID - Per cardiology (HF), unclear etiology for shock (cardiogenic vs vasodilatory). Will be able to tolerate cardiac medications when labs are more stable. No further intervention indicated at this time - No need for spot dose with IV lasix 20 mg today as patient more euvolemic Assessment & Plan (08/15/2024 2:33 PM EDT): Home meds: Amio 200 mg daily, Metoprolol succinate 37.5 mg QD, Metoprolol tartrate 37.5 mg every day (?), Furosemide 20 mg PO every day Follows alarm service technician at [facility] (Dr. 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 By report, Echocardiogram was done at OSH on 04/26/2024 showing EF 40-45%, evidence of regional wall motion abnormalities, left atrium severely dilated and moderate mitral valve regurgitation, overall no changes from last echo. Presenting for several days of worsening orthopnea. New oxygen requirement on 2L NC, CXR showed pulmonary edema but clinically doesn't appear volume overload. Pro-BNP 64,308. Trop elevated to 34, likely demand ischemia in the setting of acute infection. Widened QRS on EKG resolve once K was corrected. No evidence of acute ischemia on EKG. TTE on 08/11 with LVEF 32%, with reduced RV systolic function, biatrial enlargement, severe mitral regurgitation. Consider possible cardiogenic shock component to presentation of SUSAN and shock liver, as patient has been noted to be in afib with RVR. 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 Per cardiology, ischemic workup not indicated. - Hold home lasix dose - Lopressor 50 mg BID - Per cardiology (HF), unclear etiology for shock (cardiogenic vs vasodilatory). Will be able to tolerate cardiac medications when labs are more stable. No further intervention indicated at this time - Spot dose with IV lasix 20 mg moving forward to avoid over-diuresis Assessment & Plan (08/15/2024 12:34 PM EDT): Home meds: Amio 200 mg daily, Metoprolol succinate 37.5 mg QD, Metoprolol tartrate 37.5 mg every day (?), Furosemide 20 mg PO every day Follows alarm service technician at [facility] (Dr. 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 By report, Echocardiogram was done at OSH on 04/26/2024 showing EF 40-45%, evidence of regional wall motion abnormalities, left atrium severely dilated and moderate mitral valve regurgitation, overall no changes from last echo. Presenting for several days of worsening orthopnea. New oxygen requirement on 2L NC, CXR showed pulmonary edema but clinically doesn't appear volume overload. Pro-BNP 64,308. Trop elevated to 34, likely demand ischemia in the setting of acute infection. Widened QRS on EKG resolve once K was corrected. No evidence of acute ischemia on EKG. TTE on 08/11 with LVEF 32%, with reduced RV systolic function, biatrial enlargement, severe mitral regurgitation. Consider possible cardiogenic shock component to presentation of SUSAN and shock liver, as patient has been noted to be in afib with RVR. 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 Per cardiology, ischemic workup not indicated. - Hold home lasix dose - Lopressor 50 mg BID - Per cardiology (HF), unclear etiology for shock (cardiogenic vs vasodilatory). Will be able to tolerate cardiac medications when labs are more stable. No further intervention indicated at this time - Spot dose with IV lasix 20 mg moving forward to avoid over-diuresis Assessment & Plan (08/14/2024 8:36 PM EDT): Home meds: Amio 200 mg daily, Metoprolol succinate 37.5 mg QD, Metoprolol tartrate 37.5 mg every day (?), Furosemide 20 mg PO every day Follows alarm service technician at [facility] (Dr. Tera Lizama) Patient with a history of HFrEF, unknown last EF, presenting for several days of worsening orthopnea. New oxygen requirement on 2L NC, CXR showed pulmonary edema but clinically doesn't appear volume overload. Pro-BNP 64,308. Unable to obtain prior TTE result from [facility]. Trop elevated to 34, likely demand ischemia in the setting of acute infection. Widened QRS on EKG resolve once K was corrected. No evidence of acute ischemia on EKG. TTE on 08/11 with LVEF 32%, with reduced RV systolic function, biatrial enlargement, severe mitral regurgitation. Consider possible cardiogenic shock component to presentation of SUSAN and shock liver, as patient has been noted to be in afib with RVR. See 08/11/2024 progress note for cardiology notes from [facility]. - Hold home lasix dose - Lopressor 50 mg BID - Per cardiology (HF), unclear etiology for shock (cardiogenic vs vasodilatory). Will be able to tolerate cardiac medications when labs are more stable. No further intervention indicated at this time - Per cardiology, no further ischemic work up need. Okay to spot dose lasix if needed - IV lasix 40 mg once due to dyspnea onset on 08/10 and 08/12 - Will spot dose with IV lasix 20 mg moving forward to avoid over-diuresis Assessment & Plan (2024 4:11 PM EDT): Home meds: Amio, Metoprolol succinate 37.5 mg QD, Metoprolol tartrate 37.5 mg every day (?), Furosemide 20 mg PO every day Follows alarm service technician at [facility] (Dr. Tera Lizama) Patient with a history of HFrEF, unknown last EF, presenting for several days of worsening orthopnea. New oxygen requirement on 2L NC, CXR showed pulmonary edema but clinically doesn't appear volume overload. Pro-BNP 64,308. Unable to obtain prior TTE result from [facility]. Trop elevated to 34, likely demand ischemia in the setting of acute infection. Widened QRS on EKG resolve once K was corrected. No evidence of acute ischemia on EKG. TTE on 08/11 with LVEF 32%, with reduced RV systolic function, biatrial enlargement, severe mitral regurgitation. Consider possible cardiogenic shock component to presentation of SUSAN and shock liver, as patient has been noted to be in afib with RVR. See 08/11/2024 progress note for cardiology notes from [facility]. - Hold home lasix dose - Continue Lopressor 50 mg BID - Per cardiology (HF), unclear etiology for shock (cardiogenic vs vasodilatory). Will be able to tolerate cardiac medications when labs are more stable. No further intervention indicated at this time - Per cardiology, no further ischemic work up need. Okay to spot dose lasix if needed - IV lasix 40 mg once due to dyspnea onset on 08/10 and 08/12 - Will spot dose with IV lasix 20 mg moving forward to avoid over-diuresis Assessment & Plan (08/12/2024 7:50 PM EDT): Home meds: Amio, Metoprolol succinate 37.5 mg QD, Metoprolol tartrate 37.5 mg every day (?), Furosemide 20 mg PO every day Follows alarm service technician at [facility] (Dr. Tera Lizama) Patient with a history of HFrEF, unknown last EF, presenting for several days of worsening orthopnea. New oxygen requirement on 2L NC, CXR showed pulmonary edema but clinically doesn't appear volume overload. Pro-BNP 64,308. Unable to obtain prior TTE result from [facility]. Trop elevated to 34, likely demand ischemia in the setting of acute infection. Widened QRS on EKG resolve once K was corrected. No evidence of acute ischemia on EKG. TTE on 08/11 with LVEF 32%, with reduced RV systolic function, biatrial enlargement, severe mitral regurgitation. Consider possible cardiogenic shock component to presentation of SUSAN and shock liver, as patient has been noted to be in afib with RVR. See 08/11/2024 progress note for cardiology notes from [facility]. - Hold home lasix - Continue Lopressor 50 mg BID - Per cardiology (HF), unclear etiology for shock (cardiogenic vs vasodilatory). Will be able to tolerate cardiac medications when labs are more stable. No further intervention indicated at this time - Per cardiology, no further ischemic work up need. Okay to spot dose lasix if needed - IV lasix 40 mg once due to dyspnea onset on 08/10 and 08/12 Assessment & Plan (08/11/2024 6:29 PM EDT): Home meds: Amio, Metoprolol succinate 37.5 mg QD, Metoprolol tartrate 37.5 mg every day (?), Furosemide 20 mg PO every day Follows alarm service technician at [facility] (Dr. Tera Lizama) Patient with a history of HFrEF, unknown last EF, presenting for several days of worsening orthopnea. New oxygen requirement on 2L NC, CXR showed pulmonary edema but clinically doesn't appear volume overload. Pro-BNP 64,308. Unable to obtain prior TTE result from [facility]. Trop elevated to 34, likely demand ischemia in the setting of acute infection. Widened QRS on EKG resolve once K was corrected. No evidence of acute ischemia on EKG. TTE on 08/11 with LVEF 32%, with reduced RV systolic function, biatrial enlargement, severe mitral regurgitation. Consider possible cardiogenic shock component to presentation of SUSAN and shock liver, as patient has been noted to be in afib with RVR. See above for further details for cardiology notes from [facility]. - Hold home lasix - Increase Lopressor to 50 mg BID - Cardiology (HF) consult placed - IV iron 200 mg for 5 days (08/11--08/15) - IV lasix 40 mg once due to dyspnea onset on 08/10 Assessment & Plan (08/10/2024 6:12 PM EDT): Home meds: Metoprolol succinate 37.5 mg QD, Metoprolol tartrate 37.5 mg every day (?), Furosemide 20 mg PO every day Follows alarm service technician at [place]. Patient with a history of HFrEF, unknown last EF, presenting for several days of worsening orthopnea. New oxygen requirement on 2L NC, CXR showed pulmonary edema but clinically doesn't appear volume overload. Pro-BNP 64,308. Unable to obtain prior TTE result from [facility]. Trop elevated to 34, likely demand ischemia in the setting of acute infection. Widened QRS on EKG resolve once K was corrected. No evidence of acute ischemia on EKG. - Hold home lasix - Lopressor 25 mg BID - Cards consult, pending TTE - IV lasix 40 mg once due to dyspnea onset on 08/10 Assessment & Plan (08/09/2024 5:57 PM EDT): Patient with a history of HFrEF, unknown last EF, presenting for several days of worsening orthopnea. New oxygen requirement on 2L NC, CXR showed pulmonary edema but clinically doesn't appear volume overload. Pro-BNP 64,308. Unable to obtain prior TTE result from [facility]. Trop elevated to 34, likely demand ischemia in the setting of acute infection. Widened QRS on EKG resolve once K was corrected. No evidence of acute ischemia on EKG. - TTE - Continue home amiodarone, Plavix, and Metoprolol - Hold home lasix Acute kidney injury superimposed on CKD 08/09/2024 08/20/2024 Assessment & Plan (08/20/2024 12:55 PM EDT): Cr elevated to 3.38 with an eGFR of 14 on admission. Per request from lab at [facility], patient's most recent creatinines are elevated to 2.54-2.96. Patient has a history of CKD and was previously following with Dr. Garber at [facility], however, last appointment available in [facility] is from 04/24/2023. Renal following. Likely ATN in setting of shock on presentation. Improving. Nephrology was consulted. Renal function gradually improved through admission, Cr 2.36 and BUN 42 at time of discharge. - Restart home Lasix 40 mg PO on Friday at rehab - Recheck BMP in one week Assessment & Plan (08/19/2024 1:45 PM EDT): Cr elevated to 3.38 with an eGFR of 14 on admission. Per request from lab at [facility], patient's most recent creatinines are elevated to 2.54-2.96. Patient has a history of CKD and was previously following with Dr. Garber at [facility], however, last appointment available in [facility] is from 04/24/2023. Renal following. Likely ATN in setting of shock on presentation. Improving. Nephro consulted, appreciate recs: - Daily BMP - Ordered CPK to rule out rhabdo - 1.5L fluid restriction Assessment & Plan (08/18/2024 3:41 PM EDT): Cr elevated to 3.38 with an eGFR of 14 on admission. Per request from lab at [facility], patient's most recent creatinines are elevated to 2.54-2.96. Patient has a history of CKD and was previously following with Dr. Garber at [facility], however, last appointment available in [facility] is from 04/24/2023. Renal following. Likely ATN in setting of shock on presentation. Improving. Nephro consulted, appreciate recs: - Daily BMP - Ordered CPK to rule out rhabdo - 1.5L fluid restriction Assessment & Plan (08/17/2024 2:57 PM EDT): Cr elevated to 3.38 with an eGFR of 14 on admission. Per request from lab at [facility], patient's most recent creatinines are elevated to 2.54-2.96. Patient has a history of CKD and was previously following with Dr. Garber at [facility], however, last appointment available in [facility] is from 04/24/2023. Renal following. Likely ATN in setting of shock on presentation. Improving. Nephro consulted, appreciate recs: - Daily BMP - Ordered CPK to rule out rhabdo - 1.5L fluid restriction Assessment & Plan (08/16/2024 1:31 PM EDT): Cr elevated to 3.38 with an eGFR of 14 on admission. Per request from lab at [facility], patient's most recent creatinines are elevated to 2.54-2.96. Patient has a history of CKD and was previously following with Dr. Garber at [facility], however, last appointment available in [facility] is from 04/24/2023. Renal following. Likely ATN in setting of shock on presentation. Improving. Nephro consulted, appreciate recs: - Daily BMP - Ordered CPK to rule out rhabdo - 1.5L fluid restriction Assessment & Plan (08/15/2024 2:33 PM EDT): Cr elevated to 3.38 with an eGFR of 14 on admission. Per request from lab at [facility], patient's most recent creatinines are elevated to 2.54-2.96. Patient has a history of CKD and was previously following with Dr. Garber at [facility], however, last appointment available in [facility] is from 04/24/2023. Renal following. Likely ATN in setting of shock on presentation. Improving. - Daily BMP Assessment & Plan (08/15/2024 12:34 PM EDT): Cr elevated to 3.38 with an eGFR of 14 on admission. Per request from lab at [facility], patient's most recent creatinines are elevated to 2.54-2.96. Patient has a history of CKD and was previously following with Dr. Garber at [facility], however, last appointment available in [facility] is from 04/24/2023. Renal following. Likely ATN in setting of shock on presentation. Improving. - Daily BMP Assessment & Plan (08/14/2024 8:36 PM EDT): Cr elevated to 3.38 with an eGFR of 14 on admission. Per request from lab at [facility], patient's most recent creatinines are elevated to 2.54-2.96. Patient has a history of CKD and was previously following with Dr. Garber at [facility], however, last appointment available in [facility] is from 04/24/2023. Renal following. Likely ATN in setting of shock on presentation Assessment & Plan (2024 2:30 PM EDT): Cr elevated to 3.38 with an eGFR of 14 on admission. Per request from lab at [facility], patient's most recent creatinines are elevated to 2.54-2.96. Patient has a history of CKD and was previously following with Dr. Garber at [facility], however, last appointment available in [facility] is from 04/24/2023. Renal following. - Patient will require close monitoring as well especially in the setting of hypothermia and septic shock on admission causing ischemic liver injury and worsening SUSAN. - Evidence of secondary hyperparathyroidism, renal is following Assessment & Plan (08/12/2024 7:50 PM EDT): Cr elevated to 3.38 with an eGFR of 14 on admission. Per request from lab at [facility], patient's most recent creatinines are elevated to 2.54-2.96. Patient has a history of CKD and was previously following with Dr. Garber at [facility], however, last appointment available in [facility] is from 04/24/2023. Renal following. - Patient will require close monitoring as well especially in the setting of hypothermia and septic shock on admission causing ischemic liver injury and worsening SUSAN. - Consider follow up with Nephrology regarding anemia and secondary/tertiary hyperparathyroidism. Phos and PTH pending Assessment & Plan (08/11/2024 6:29 PM EDT): Cr elevated to 3.38 with an eGFR of 14 on admission. Per request from lab at [facility], patient's most recent creatinines are elevated to 2.54-2.96. Patient has a history of CKD and was previously following with Dr. Garber at [facility], however, last appointment available in [facility] is from 04/24/2023. Renal following. - Patient will require close monitoring as well especially in the setting of hypothermia and septic shock on admission causing ischemic liver injury and worsening SUSAN. - Consider follow up with Nephrology regarding anemia and secondary/tertiary hyperparathyroidism. Phos and PTH pending Assessment & Plan (08/10/2024 6:12 PM EDT): Cr elevated to 3.38 with an eGFR of 14 on admission. Per request from lab at [place], patient's most recent creatinines are elevated to 2.54-2.96. Patient has a history of CKD and was previously following with Dr. Garber at [facility], however, last appointment available in [facility] is from 04/24/2023. Renal following. - Patient will require close monitoring as well especially in the setting of hypothermia and septic shock on admission causing ischemic liver injury and worsening SUSAN. - Strict I/O Assessment & Plan (08/09/2024 5:57 PM EDT): Cr elevated to 3.38 with an eGFR of 14 on admission. Per request from lab at [facility], patient's most recent creatinines are elevated to 2.54-2.96. Patient has a history of CKD and was previously following with Dr. Garber at [facility], however, last appointment available in [facility] is from 04/24/2023. - Nephro following: CK ordered, urine electrolytes Transaminitis 08/09/2024 08/20/2024 Assessment & Plan (08/20/2024 12:55 PM EDT): Patient presented with markedly elevated LFTs that have trended during admission. LDH 1461 on admission. Per GI, presentation consistent with ischemic hepatitis. Concern for DILI in the setting of recent antibiotics use. Patient was on cefuroxime for her UTI at the rehab. GI following. Gradually improved throughout admission. At time of discharge, AST 22, ALT 159, alk phos 142. - Resolved Assessment & Plan (08/19/2024 1:45 PM EDT): Patient presented with markedly elevated LFTs that have trended during admission. LDH 1461 on admission. Per GI, presentation consistent with ischemic hepatitis. Concern for DILI in the setting of recent antibiotics use. Patient was on cefuroxime for her UTI at the rehab. GI following. Improving. -Daily LFTs Assessment & Plan (08/18/2024 3:41 PM EDT): Patient presented with markedly elevated LFTs that have trended during admission. LDH 1461 on admission. Per GI, presentation consistent with ischemic hepatitis. Concern for DILI in the setting of recent antibiotics use. Patient was on cefuroxime for her UTI at the rehab. GI following. Improving. -Daily LFTs Assessment & Plan (08/17/2024 2:57 PM EDT): Patient presented with markedly elevated LFTs that have trended during admission. LDH 1461 on admission. Per GI, presentation consistent with ischemic hepatitis. Concern for DILI in the setting of recent antibiotics use. Patient was on cefuroxime for her UTI at the rehab. GI following. Improving. -Daily LFTs Assessment & Plan (08/16/2024 1:24 PM EDT): Patient presented with markedly elevated LFTs that have trended during admission. LDH 1461 on admission. Per GI, presentation consistent with ischemic hepatitis. Concern for DILI in the setting of recent antibiotics use. Patient was on cefuroxime for her UTI at the rehab. GI following. Improving. -Daily LFTs Assessment & Plan (08/15/2024 2:33 PM EDT): Patient presented with markedly elevated LFTs that have trended during admission. LDH 1461 on admission. Per GI, presentation consistent with ischemic hepatitis. Concern for DILI in the setting of recent antibiotics use. Patient was on cefuroxime for her UTI at the rehab. GI following. Improving. -Daily LFTs Assessment & Plan (08/15/2024 12:34 PM EDT): Patient presented with markedly elevated LFTs that have trended during admission. LDH 1461 on admission. Per GI, presentation consistent with ischemic hepatitis. Concern for DILI in the setting of recent antibiotics use. Patient was on cefuroxime for her UTI at the rehab. GI following. Improving. -Daily LFTs Assessment & Plan (08/14/2024 8:36 PM EDT): Patient presented with markedly elevated LFTs that have trended during admission. LDH 1461 on admission. Per GI, presentation consistent with ischemic hepatitis. Concern for DILI in the setting of recent antibiotics use. Patient was on cefuroxime for her UTI at the rehab. GI following. Improving with time -Daily LFTs Assessment & Plan (2024 2:30 PM EDT): Patient presented with markedly elevated LFTs that have trended during admission. LDH 1461 on admission. Per GI, presentation consistent with ischemic hepatitis. Concern for DILI in the setting of recent antibiotics use. Patient was on cefuroxime for her UTI. GI following. - Daily PT INR & LFTs - LFTs down-trending Assessment & Plan (08/12/2024 7:50 PM EDT): Patient presented with markedly elevated LFTs that have trended during admission. LDH 1461 on admission. Per GI, presentation consistent with ischemic hepatitis. Concern for DILI in the setting of recent antibiotics use. Patient was on cefuroxime for her UTI. GI following. - Anti-smooth muscle, IgG, CMV, EBV, hepatitis panel ordered - Daily PT INR & LFTs - LFTs down-trending Assessment & Plan (08/11/2024 6:29 PM EDT): Patient presented with markedly elevated LFTs that have trended during admission. LDH 1461 on admission. Per GI, presentation consistent with ischemic hepatitis. Concern for DILI in the setting of recent antibiotics use. Patient was on cefuroxime for her UTI. GI following. - Anti-smooth muscle, IgG, CMV, EBV, hepatitis panel ordered - Daily PT INR & LFTs - LFTs down-trending Assessment & Plan (08/10/2024 6:12 PM EDT): Patient presented with markedly elevated LFTs that have trended during admission. LDH 1461 on admission. Per GI, presentation consistent with ischemic hepatitis. Concern for DILI in the setting of recent antibiotics use. Patient was on cefuroxime for her UTI. GI following. - Anti-smooth muscle, IgG, CMV, EBV, hepatitis panel ordered - Daily PT INR & LFTs Assessment & Plan (08/09/2024 5:57 PM EDT): Patient presented with markedly elevated LFTs that have trended during admission. LDH elevated to 1461. Per GI, presentation consistent with ischemic hepatitis. - GI following. Started NAC drip on 08/09 - Anti-smooth muscle, IgG, CMV, EBV, VZV, hepatitis panel ordered - NAC infusion until INR is <1.5 - Daily PT INR & LFTs Lactic acidosis 08/09/2024 08/20/2024 Assessment & Plan (08/20/2024 12:55 PM EDT): Initial pH of 7.14 and bicarbonate of 14 likely all in the setting of lactic acid with anion gap. Lactate initially 11.3. Resolved after IV fluids. Assessment & Plan (08/19/2024 1:45 PM EDT): Initial pH of 7.14 and bicarbonate of 14 likely all in the setting of lactic acid with anion gap. Lactate initially 11.3. Resolved after IV fluids. Assessment & Plan (08/18/2024 3:41 PM EDT): Initial pH of 7.14 and bicarbonate of 14 likely all in the setting of lactic acid with anion gap. Lactate initially 11.3. Resolved after IV fluids. Assessment & Plan (08/17/2024 2:57 PM EDT): Initial pH of 7.14 and bicarbonate of 14 likely all in the setting of lactic acid with anion gap. Lactate initially 11.3. Resolved after IV fluids. Assessment & Plan (08/16/2024 1:24 PM EDT): Initial pH of 7.14 and bicarbonate of 14 likely all in the setting of lactic acid with anion gap. Lactate initially 11.3. Resolved after IV fluids. Assessment & Plan (08/15/2024 2:33 PM EDT): Initial pH of 7.14 and bicarbonate of 14 likely all in the setting of lactic acid with anion gap. Lactate initially 11.3. Resolved after IV fluids. Assessment & Plan (08/15/2024 12:34 PM EDT): Initial pH of 7.14 and bicarbonate of 14 likely all in the setting of lactic acid with anion gap. Lactate initially 11.3. Resolved after IV fluids. Assessment & Plan (08/14/2024 8:36 PM EDT): Initial pH of 7.14 and bicarbonate of 14 likely all in the setting of lactic acid with anion gap. Lactate initially 11.3. Resolved after IV fluids. Assessment & Plan (2024 12:05 PM EDT): Initial pH of 7.14 and bicarbonate of 14 likely all in the setting of lactic acid with anion gap. Lactate initially 11.3. Resolved after IV fluids. Assessment & Plan (08/12/2024 7:50 PM EDT): Initial pH of 7.14 and bicarbonate of 14 likely all in the setting of lactic acid with anion gap. Lactate initially 11.3. Resolved after IV fluids. Assessment & Plan (08/11/2024 6:29 PM EDT): Initial pH of 7.14 and bicarbonate of 14 likely all in the setting of lactic acid with anion gap. Lactate initially 11.3. Resolved after IV fluids. Assessment & Plan (08/10/2024 6:12 PM EDT): Initial pH of 7.14 and bicarbonate of 14 likely all in the setting of lactic acid with anion gap. Lactate initially 11.3. Resolved after IV fluids. Assessment & Plan (08/09/2024 5:57 PM EDT): Lactate initially 11.3. Resolved after fluids. Hyperkalemia 08/09/2024 08/20/2024 Assessment & Plan (08/20/2024 12:55 PM EDT): Initially 7.1. Widened QRS seen on initial EKG. Stable at 4.5 on most recently labs s/p insulin, calcium gluconate, and bicarb. Resolved. Assessment & Plan (08/19/2024 1:45 PM EDT): Initially 7.1. Widened QRS seen on initial EKG. Stable at 4.5 on most recently labs s/p insulin, calcium gluconate, and bicarb. Resolved. Assessment & Plan (08/18/2024 3:41 PM EDT): Initially 7.1. Widened QRS seen on initial EKG. Stable at 4.5 on most recently labs s/p insulin, calcium gluconate, and bicarb. Resolved. Assessment & Plan (08/17/2024 2:57 PM EDT): Initially 7.1. Widened QRS seen on initial EKG. Stable at 4.5 on most recently labs s/p insulin, calcium gluconate, and bicarb. Resolved. Assessment & Plan (08/16/2024 1:24 PM EDT): Initially 7.1. Widened QRS seen on initial EKG. Stable at 4.5 on most recently labs s/p insulin, calcium gluconate, and bicarb. Resolved. Assessment & Plan (08/15/2024 2:33 PM EDT): Initially 7.1. Widened QRS seen on initial EKG. Stable at 4.5 on most recently labs s/p insulin, calcium gluconate, and bicarb. Resolved. Assessment & Plan (08/15/2024 12:34 PM EDT): Initially 7.1. Widened QRS seen on initial EKG. Stable at 4.5 on most recently labs s/p insulin, calcium gluconate, and bicarb. Resolved. Assessment & Plan (08/14/2024 8:36 PM EDT): Initially 7.1. Widened QRS seen on initial EKG. Stable at 4.5 on most recently labs s/p insulin, calcium gluconate, and bicarb. Resolved. Assessment & Plan (2024 2:30 PM EDT): Initially 7.1. Widened QRS seen on initial EKG. Stable at 4.5 on most recently labs s/p insulin, calcium gluconate, and bicarb. Resolved. Assessment & Plan (08/12/2024 7:50 PM EDT): Initially 7.1. Widened QRS seen on initial EKG. Stable at 4.5 on most recently labs s/p insulin, calcium gluconate, and bicarb. Resolved. Assessment & Plan (08/11/2024 6:29 PM EDT): Initially 7.1. Widened QRS seen on initial EKG. Stable at 4.5 on most recently labs s/p insulin, calcium gluconate, and bicarb. Resolved. Assessment & Plan (08/10/2024 6:12 PM EDT): Initially 7.1. Widened QRS seen on initial EKG. Stable at 4.5 on most recently labs s/p insulin, calcium gluconate, and bicarb. Resolved. Assessment & Plan (08/09/2024 5:57 PM EDT): Initially 7.1. Widened QRS seen on initial EKG. Stable at 4.5 on most recently labs s/p insulin, calcium gluconate, and bicarb. - Nephrology following Social History Tobacco Use Types Packs/Day Years Used Date Smoking Tobacco: Never Assessed [facility] Utilities Answer Date Recorded In the past 12 months has [address], salgomed, oil, or water [place] threatened to shut off services in your home? No 08/10/2024 Hunger Vital Sign Answer Date Recorded Within the past 12 months, y ou worried that your food would run out before you got the money to buy more. Never true 08/10/20 24 Within the past 12 months, t he food you bought just didn't last and you didn't have money to get more. Never true 08/10/2024 Transportation Answer Date Recorded In the past 12 months, has l ack of reliable transportation kept you from medical appointments, meetings, work or from getting things needed for daily living? No 08/10/2024 Housing Answer Date Recorded Housing Risk Low 2 08/10/2024 Housing Risk Medium Not on file 08/10/2024 Housing Risk High Not on file 08/10/2024 What is your living situation today? LSSTEADY 08/10/2024 Comments Unknown Sex and Gender Information Value Date Recorded Sex Assigned at Female 08/08/2024 10:49 PM EDT Legal Sex Female 8:12 PM EDT Gender Identity Not on file Sexual Orientation Not on file Last Filed Vital Signs Vital Sign Reading Time Taken Comments Blood Pressure 97/61 08/20/2024 1:50 PM EDT Pulse 89 08/20/2024 1:50 PM EDT Temperature 36.8 ??C (98.2 ??F) 08/20/2024 1:50 PM ED T Respiratory Rate 16 08/20/2024 1:50 PM EDT Oxygen Saturation 99% 08/20/2024 1:50 PM EDT Inhaled Oxygen Concentration - - Weight 58.8 kg (129 lb 10.1 oz) 08/11/2024 6:00 AM EDT Height 167.6 cm (5' 6 ) 08/11/2024 6:00 AM EDT Body Mass Index 20.92 08/11/2024 6:00 AM EDT Plan of Treatment Not on file Procedures * Due to [place] [employer] law, this organization might not be sharing negative HIV tests. Procedure Name Priority Date/Time Associated Diagnosis Comments CBC AUTO DIFFERENTIAL Routine 08/20/2024 6:44 AM EDT BASIC METABOLIC PANEL Routine 08/20/2024 6:44 AM EDT PTH, INTACT AND CALCIUM Routine 08/12/2024 6:51 AM EDT PHOSPHORUS Routine 08/12/2024 6:51 AM EDT HEPATITIS PANEL, ACUTE STAT 08/09/2024 10:04 AM EDT from Last 3 Months or Most Recently Relevant to Health Maintenance Results * Due to [place] [employer] law, this organization might not be sharing negative HIV tests. * (ABNORMAL) CBC Auto Differential (08/20/2024 6:44 AM EDT) WBC 6.2 3.8 - 10.8 10*3/uL 08/20/2024 7:40 AM EDT [facility] RBC 3.24(L) 3.80 - 5.10 10*6/uL 08/20/2024 7:40 AM EDT [facility] Hemoglobin 7.7(L) 11.7 - 15.5 g/dL 08/20/2024 7:40 AM EDT [facility] Hematocrit 26.1(L) 35.0 - 45.0 % 08/20/2024 7:40 AM EDT [facility] MCV 80.6 80.0 - 100.0 fL 08/20/2024 7:40 AM EDT [facility] MCH 23.8(L) 27.0 - 33.0 pg 08/20/2024 7:40 AM EDT [facility] MCHC 29.5(L) 32.0 - 36.0 g/dL 08/20/2024 7:40 AM EDT [facility] RDW 16.9(H) 11.0 - 15.0 % 08/20/2024 7:40 AM EDT [facility] Platelets 196 140 - 400 10*3/uL 08/20/2024 7:40 AM EDT [facility] MPV 10.9 7.5 - 12.5 fL 08/20/2024 7:40 AM EDT [facility] Neutrophil % 65.4 % 08/20/2024 7:40 AM EDT [facility] Immature Grans % 0.5 0.0 - 0.9 % 08/20/2024 7:40 AM EDT [facility] Lymphocyte % 20.8 % 08/20/2024 7:40 AM EDT [facility] Monocyte % 10.2 % 08/20/2024 7:40 AM EDT [facility] Eosinophil % 2.4 % 08/20/2024 7:40 AM EDT [facility] Basophil % 0.7 % 08/20/2024 7:40 AM EDT [facility] Neutrophil # 4.02 1.50 - 7.80 10*3/uL 08/20/2024 7:40 AM EDT [facility] Immature Grans # 0.03 <=0.03 10*3/uL 08/20/2024 7:40 AM EDT [facility] Lymphocyte # 1.30 0.85 - 3.90 10*3/uL 08/20/2024 7:40 AM EDT [facility] Monocyte # 0.60 0.20 - 0.95 10*3/uL 08/20/2024 7:40 AM EDT [facility] Eosinophil # 0.20 0.02 - 0.50 10*3/uL 08/20/2024 7:40 AM EDT [facility] Basophil # <0.03 0.00 - 0.20 10*3/uL 08/20/2024 7:40 AM EDT [facility] nRBC % 0.0 /100 WBCs 08/20/2024 7:40 AM EDT [facility] nRBC # <0.01 <0.01 10*3/uL 08/20/2024 7:40 AM EDT [facility] Blood Structure of peripheral vein / Unknown Venipuncture / Unknown 08/20/2024 6:44 AM EDT 08/20/2024 7:26 AM EDT us Jared Bell MD PhD LAB BLOOD ORDERABLES Final Resu lt [facility] [address] [place] [address], * (ABNORMAL) Basic Metabolic Panel (08/20/2024 6:44 AM EDT) NA 144 135 - 145 mmol/L 08/20/2024 8:21 AM EDT [facility] K 4.7 3.5 - 5.3 mmol/L 08/20/2024 8:21 AM EDT [facility] Cl 111(H) 98 - 107 mmol/L 08/20/2024 8:21 AM EDT [facility] CO2 23 22 - 32 mmol/L 08/20/2024 8:21 AM EDT [facility] BUN 42(H) 7 - 23 mg/dL 08/20/2024 8:21 AM EDT [facility] Creatinine 2.36(H) 0.50 - 1.20 mg/dL 08/20/2024 8:21 AM EDT [facility] Glucose 86 65 - 99 mg/dL 08/20/2024 8:21 AM EDT [facility] Calcium 9.1 8.6 - 10.5 mg/dL 08/20/2024 8:21 AM EDT [facility] Anion Gap 10 5 - 15 08/20/2024 8:21 AM EDT [facility] eGFR 22(L) >=60 mL/min/1 .73m2 08/20/2024 8:21 AM EDT [facility] Comment:The estimated glomer ular filtration rate (eGFR) is calculated using a new formula developed by the NKF-ASN task force to eliminate race-based correction factors. The new formula uses serum/plasma creatinine, age, and gender to determine eGFR. A value below 60mls/min might indicate kidney disease and will be flagged. For additional information, see Rouse et al, Am J Kidney Dis. 2021;79(2):268- 288, A Unifying Approach for GFR estimation: Recommendations of the NKF-ASN Task Force on Reassessing the Inclusion of Race in Diagnosing Kidney Disease . Blood Structure of peripheral vein / Unknown Venipuncture / Unknown 08/20/2024 6:44 AM EDT 08/20/2024 7:23 AM EDT us Jared Bell MD PhD LAB BLOOD ORDERABLES Final Resu lt [facility] [address] [place] [address], [place] * (ABNORMAL) PTH, Intact and Calcium (08/12/2024 6:51 AM EDT) Parathyroid Hormone, Intact 203(H) 16 - 77 pg/mL 2024 4:01 AM EDT [employer] Comment: Interpretive Guide ?Intact PTH ? Calcium ? ------- Normal Parathyroid ?Normal ? Normal Hypoparathyroidism ?Low or Low Normal ?Low Hyperparathyroidism ?? Primary ?Normal or High ? High ?? Secondary ?High ? Normal or Low ?? Tertiary ? High ? High Non-Parathyroid ?? Hypercalcemia ?Low or Low Normal ?High Calcium 8.2(L) 8.6 - 10.4 mg/dL 2024 4:01 AM EDT [facility] Blood Structure of peripheral vein / Unknown Venipuncture / Unknown 08/12/2024 6:51 AM EDT 08/12/2024 7:38 AM EDT Narrative [facility] - 2024 4:01 AM EDT [facility] Received Date: us Brigitte Duke MD LAB BLOOD ORDERABLES Final Resul t [facility] [address], [place] [address], [place] [phone] [facility] [address], [place] [address], [place] [phone] * Phosphorus (08/12/2024 6:51 AM EDT) Phosphorus 3.7 2.5 - 4.5 mg/dL 08/12/2024 9:17 AM EDT [facility] Blood Structure of peripheral vein / Unknown Venipuncture / Unknown 08/12/2024 6:51 AM EDT 08/12/2024 7:38 AM EDT us Brigitte Duke MD LAB BLOOD ORDERABLES Final Resul t [facility] [address] [place] [address], * Hepatitis Panel, Acute (08/09/2024 10:04 AM EDT) Pathologist [facility] Hepatitis A IgM NON-REACT TRINH NON-REACT TRINH 08/09/2024 8:26 PM EDT [facility] Hepatitis B Surface Antigen NON-REACT TRINH NON-REACT TRINH 08/09/2024 8:26 PM EDT [facility] Hepatitis B Core Antibody NON-REACT TRINH NON-REACT TRINH 08/09/2024 8:26 PM EDT [facility] Hepatitis C Antibody NON-REACT TRINH NON-REACT TRINH 08/09/2024 8:26 PM EDT [facility] Comment: HCV antibody was non-reactive. There is no laboratory evidence of HCV infection. In most cases, no further action is required. However, if recent HCV exposure is suspected, a test for HCV RNA (test code 90320) is suggested. For additional information please refer to http://[email or web address]/faq/XLC15h6 (This link is being provided for informational/ educational purposes only.) For additional information, please refer to [email or web address]/[email or web address] (This link is being provided for informational/ educational purposes only.) Blood Structure of peripheral vein / Unknown Venipuncture / Unknown 08/09/2024 10:04 AM EDT 08/09/2024 10:12 AM EDT Narrative [facility] - 08/09/2024 8:26 PM EDT [facility] Received Date: us April Ann MD LAB BLOOD ORDERABLES Final Resul t [facility] [address], [place] [address], [place] [phone] [facility] [address], [place] [address], [place] [phone] from Last 3 Months or Most Recently Relevant to Health Maintenance Insurance [facility] FEDERAL MEDICARE Advance Directives Documents on File Type Date Recorded Patient Welding Process Specialist Expl anation Health Care Proxy 08/11/2024 4:04 PM Aliya Vasquez 03-2 * Full Code (Latest Code Status on File) Date Activated Date Inactivated Comments 08/09/2024 8:23 AM 08/20/2024 5:20 PM Healthcare Agents on File Name Relationship Healthcare Agent Relationshi p Communication Aliya Vasquez Sister Health Care Agent Care Teams Lap Maker Relationship Specialty Start Date End Date No, Referring PCP - General 08/08/24
--- OUTSIDE RECORDS SUMMARY | 2024-11-24 15:57 | XMS_ITS | Encounter Summary ---
Author Organization [facility] Address [address] [facility] [address] [place] [address] Phone Care Team Providers Care Hand Spring Former Name Role Phone Rod Wakefield MD Primary Care Provider + Reason for Visit * Reason Comments Med Refill Encounter Details Date Type Department Care Team (Late st Contact Info) Description 01/30/2022 Refill [facility] [address] [place] [address] [place] [address] Oneil Garber MD [address] [facility] [address] [place] [phone] Essential (primary) hypertension; Stage 3a chronic kidney disease (HCC) Social History Tobacco Use Types Packs/Day Years Used Date Smoking Tobacco: Former Cigarettes 1 50 1 [id number] Smokeless Tobacco: Never Comments Unknown Sex and Gender Information Value Date Recorded Sex Assigned at Not on file Legal Sex Female 11:51 AM EST Gender Identity Not on file Sexual Orientation Not on file documented as of this encounter Plan of Treatment Not on file documented as of this encounter Visit Diagnoses Diagnosis Essential (primary) hypertension Stage 3a chronic kidney disease (HCC) documented in this encounter Care Teams Hand Spring Former Relationship Specialty Start Date End Date Rod Wakefield MD [address] , [facility] [address] [place] [address] PCP - General Internal Medicine 05/28/21 documented as of this encounter
--- OUTSIDE RECORDS SUMMARY | 2024-11-24 15:57 | XMS_ITS | Encounter Summary ---
Author Organization [facility] Address [address] [facility] [address] [place] [address] Phone Care Team Providers Care Job Site Superintendent Name Role Phone Rod Wakefield MD Primary Care Provider + Encounter Details Date Type Department Care Team (Late st Contact Info) Description 03/08/2021 Orders Only [facility] [address] [place] [address] Oneil Garber MD [address] [facility] [address] [place] [phone] Renal artery stenosis (HCC) Social History Tobacco Use Types Packs/Day Years Used Date Smoking Tobacco: Never Assessed Comments Unknown Sex and Gender Information Value Date Recorded Sex Assigned at Not on file Legal Sex Female 11:51 AM EST Gender Identity Not on file Sexual Orientation Not on file documented as of this encounter Plan of Treatment Not on file documented as of this encounter Visit Diagnoses Diagnosis Renal artery stenosis (HCC) documented in this encounter Care Teams Job Site Superintendent Relationship Specialty Start Date End Date Rod Wakefield MD [address] [place] [place], [place] [phone] PCP - General Internal Medicine 05/28/21 documented as of this encounter
--- OUTSIDE RECORDS SUMMARY | 2024-11-24 15:57 | XMS_ITS | Clinical Summary ---
Author Organization Unknown Care Team Providers Care Vocational Technical Education Director Name Role Phone DODIE OTHER, LUC Unavailable Unavailab eamon BRASHER RN, LOIS Unavailable Unavailable SOBIA BOILER SERVICE TECHNICIAN, ZANDRE Unavailable Unavailabl e SCARLET PT, ELSA Unavailable Unavailable CONDINO JUNITO/FLORES, RUSLAN Unavailable Unav ailable TJK OT, MAHNAZ Unavailable Unavailabl e RUTH MARBLE CARVER, JOSELYN Unavailable Unavailable Payers Payer Name Policy Type Policy Number Effective Date Expira tion Date MEDICARE.NGS.PDGM [id number] Problems Condition Name Condition Details Condition Category [...] 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 2023-10 00:00: 00 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 ANTICOAGULAN TS Active 2023-10 00:00: 00 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 ANTITHROMBOT ICS/ANTIPLAT ELETS Active [...] 11-07 00:00: 00 04-08 23:59 :00 No [id number] HYPERLIPIDE DANNY 1 tablet DAILY 1 tablet DAILY (route: oral) Med Classific ation: Cardiovas cular Therapy Agents oxybutynin chloride 5 mg tablet 2022-10 00:00: 00 11-07 00:00 :00 No [id number] INCONTINENC E 1 tablet DAILY 1 tablet DAILY (route: oral) Med Classific ation: Genitouri nary Therapy metoprolol succinate ER 50 mg tablet,exte nded release 24 hr 11-07 00:00: 00 04-08 23:59 :00 No [id number] HTN 1 tablet DAILY 1 tablet DAILY (route: oral) Med Classific ation: Cardiovas cular Therapy Agents clopidogrel 75 mg tablet 11-07 00:00: 00 04-08 23:59 :00 No [id number] AFIB 1 tablet DAILY 1 tablet DAILY (route: oral) Med Classific ation: Hematolog ical Agents Avonex 30 mcg/0.5 mL intramuscul ar pen kit 2022-10 00:00: 00 11-07 00:00 :00 No [id number] MS 1 kit WEEKLY 1 kit WEEKLY (route: intramuscu lar) Med Classific ation: Multiple Sclerosis Agents Eliquis 5 mg tablet 2022-10 00:00: 00 04-08 23:59 :00 No [id number] AFIB 1 tablet 2 TIMES DAILY 1 tablet 2 TIMES DAILY (route: oral) Med Classific ation: Hematolog ical Agents furosemide 40 mg tablet 11-07 00:00: 00 04-08 23:59 :00 No [id number] HF 1 tablet DAILY 1 tablet DAILY (route: oral) Med Classific ation: Cardiovas cular Therapy Agents levothyroxi ne 50 mcg tablet 11-07 00:00: 00 04-08 23:59 :00 No [id number] HYPOTHYROID 1 tablet DAILY 1 tablet DAILY (route: oral) Med Classific ation: Endocrine Paxil 40 mg tablet 2022-10 00:00: 00 11-07 00:00 :00 No [id number] DEPRESSION 1 tablet DAILY 1 tablet DAILY (route: oral) Med Classific ation: Central Nervous System Agents amiodarone 200 mg tablet 11-07 00:00: 00 04-08 23:59 :00 No [id number] AFIB 1 tablet DAILY 1 tablet DAILY (route: oral) Med Classific ation: Cardiovas cular Therapy Agents metoprolol succinate ER 50 mg tablet,exte nded release 24 hr 2022-10 00:00: 00 11-07 00:00 :00 No [id number] HTN Per instruc tions DAILY Per instructio ns DAILY (route: oral) Med Classific ation: Cardiovas cular Therapy Agents Senna Lax 8.6 mg tablet 2022-10 00:00: 00 11-07 00:00 :00 No [id number] CONSTIPATIO N Per instruc tions DAILY Per instructio ns DAILY (route: oral) Med Classific ation: Gastroint estinal Therapy Agents tamsulosin 0.4 mg capsule 2022-10 00:00: 00 11-07 00:00 :00 No [id number] URINARY RETENSION Per instruc tions DAILY Per instructio ns DAILY (route: oral) Med Classific ation: Genitouri nary Therapy acetaminoph en 325 mg tablet 11-07 00:00: 00 04-08 23:59 :00 No [id number] PAIN 2 tablet EVERY 4 HOURS 2 tablet EVERY 4 HOURS (route: oral) Med Classific ation: Analgesic , Anti-infl ammatory or Antipyret ic AirDuo RespiClick 113 mcg-14 mcg/actuati on breath activated 11-07 00:00: 00 04-08 23:59 :00 No [id number] COPD 1 puff 2 TIMES DAILY 1 puff 2 TIMES DAILY (route: inhalation ) Med Classific ation: Respirato ry Therapy Agents albuterol sulfate HFA 90 mcg/actuati on aerosol inhaler 11-07 00:00: 00 04-08 23:59 :00 No [id number] SOB OR WHEEZING 2 puff NEEDED 2 puff NEEDED (route: inhalation ) Med Classific ation: Respirato ry Therapy Agents Avonex 30 mcg/0.5 mL intramuscul ar syringe kit 11-07 00:00: 00 04-08 23:59 :00 No [id number] MS 30 mcg WEEKLY 30 mcg WEEKLY (route: intramuscu lar) Med Classific ation: Multiple Sclerosis Agents ferrous sulfate 325 mg (65 mg iron) tablet 11-07 00:00: 00 04-08 23:59 :00 No [id number] IRON SUPPLEMENT 1 tablet DAILY 1 tablet DAILY (route: oral) Med Classific ation: Electroly te Balance-N utritiona l Products magnesium 400 mg (as magnesium oxide) tablet 11-07 00:00: 00 04-08 23:59 :00 No [id number] SUPPLEMENT 1 tablet 2 TIMES DAILY 1 tablet 2 TIMES DAILY (route: oral) Med Classific ation: Electroly te Balance-N utritiona l Products melatonin 5 mg tablet 11-07 00:00: 00 04-08 23:59 :00 No [id number] SLEEP AID 2 tablet BEDTIME 2 tablet BEDTIME (route: oral) Med Classific ation: Central Nervous System Agents omeprazole 20 mg tablet,osmar yed release 11-07 00:00: 00 04-08 23:59 :00 No [id number] GERD 1 tablet DAILY 1 tablet DAILY (route: oral) Med Classific ation: Gastroint estinal Therapy Agents paroxetine 40 mg tablet 11-07 00:00: 00 04-08 23:59 :00 No [id number] DEPRESSION AND ANXIETY 1 tablet BEDTIME 1 tablet BEDTIME (route: oral) Med Classific ation: Central Nervous System Agents Vitamin B-12 1,000 mcg tablet 11-07 00:00: 00 04-08 23:59 :00 No [id number] VITAMIN SUPPLEMENT 1 tablet DAILY 1 tablet DAILY (route: oral) Med Classific ation: Electroly te Balance-N utritiona l Products Vitamin D3 25 mcg (1,000 unit) capsule 11-07 00:00: 00 04-08 23:59 :00 No [id number] VITAMIN SUPPLEMENT 1 capsule DAILY 1 capsule DAILY (route: oral) Med Classific ation: Electroly te Balance-N utritiona l Products potassium chloride ER 20 mEq tablet,exte nded release 03-28 00:00: 00 05-13 00:00 :00 No [id number] Per instruc tions Per instructio ns (route: oral) Med Classific ation: Electroly te Balance-N utritiona l Products albuterol sulfate HFA 90 mcg/actuati on aerosol inhaler 05-13 00:00: 00 08-04 23:59 :00 No [id number] WHEEZE 2 puff EVERY 4 HOURS 2 puff EVERY 4 HOURS (route: inhalation ) Med Classific ation: Respirato ry Therapy Agents amiodarone 200 mg tablet 05-13 00:00: 00 08-04 23:59 :00 No [id number] HTN 1 tablet DAILY 1 tablet DAILY (route: oral) Med Classific ation: Cardiovas cular Therapy Agents atorvastati n 80 mg tablet 05-13 00:00: 00 08-04 23:59 :00 No [id number] CHOLESTEROL 1 tablet DAILY 1 tablet DAILY (route: oral) Med Classific ation: Cardiovas cular Therapy Agents cholecalcif hitesh (vitamin D3) 1,250 mcg (50,000 unit) tablet 05-13 00:00: 00 08-04 23:59 :00 No [id number] SUPPLEMENT 1 tablet DAILY 1 tablet DAILY (route: oral) Med Classific ation: Electroly te Balance-N utritiona l Products Eliquis 5 mg tablet 05-13 00:00: 00 08-04 23:59 :00 No [id number] CLOT 1 tablet 2 TIMES DAILY 1 tablet 2 TIMES DAILY (route: oral) Med Classific ation: Hematolog ical Agents fluticasone 113 mcg-salmete rol 14 mcg/actuati on breath activated powdr 05-13 00:00: 00 08-04 23:59 :00 No [id number] COPD 1 puff 2 TIMES DAILY 1 puff 2 TIMES DAILY (route: inhalation ) Med Classific ation: Respirato ry Therapy Agents furosemide 40 mg tablet 05-13 00:00: 00 08-04 23:59 :00 No [id number] EDEMA 1 tablet DAILY 1 tablet DAILY (route: oral) Med Classific ation: Cardiovas cular Therapy Agents lactulose 10 gram/15 mL (15 mL) oral solution 05-13 00:00: 00 08-04 23:59 :00 No [id number] CONSTIPATIO N 15 mL DAILY 15 mL DAILY (route: oral) Med Classific ation: Gastroint estinal Therapy Agents levothyroxi ne 50 mcg capsule 05-13 00:00: 00 08-04 23:59 :00 No [id number] THYROID 1 capsule DAILY 1 capsule DAILY (route: oral) Med Classific ation: Endocrine melatonin 10 mg tablet 05-13 00:00: 00 08-04 23:59 :00 No [id number] MELATONIN 1 tablet DAILY 1 tablet DAILY (route: oral) Med Classific ation: Central Nervous System Agents metoprolol succinate ER 25 mg tablet,exte nded release 24 hr 05-13 00:00: 00 08-04 23:59 :00 No [id number] HTN 1 tablet DAILY 1 tablet DAILY (route: oral) Med Classific ation: Cardiovas cular Therapy Agents ondansetron 4 mg disintegrat ing tablet 05-13 00:00: 00 08-04 23:59 :00 No [id number] NAUSEA 1 tablet EVERY 8 HOURS 1 tablet EVERY 8 HOURS (route: oral) Med Classific ation: Gastroint estinal Therapy Agents paroxetine 40 mg tablet 05-13 00:00: 00 08-04 23:59 :00 No [id number] MOOD 1 tablet DAILY 1 tablet DAILY (route: oral) Med Classific ation: Central Nervous System Agents Plavix 75 mg tablet 05-13 00:00: 00 08-04 23:59 :00 No [id number] CLOT 1 tablet DAILY 1 tablet DAILY (route: oral) Med Classific ation: Hematolog ical Agents Senna Lax 8.6 mg tablet 05-13 00:00: 00 08-04 23:59 :00 No [id number] CONSTIPATIO N 1 tablet 2 TIMES DAILY 1 tablet 2 TIMES DAILY (route: oral) Med Classific ation: Gastroint estinal Therapy Agents Tylenol Extra Strength 500 mg tablet 05-13 00:00: 00 08-04 23:59 :00 No [id number] PAIN 2 tablet 3 TIMES DAILY 2 tablet 3 TIMES DAILY (route: oral) Med Classific ation: Analgesic , Anti-infl ammatory or Antipyret ic Vitamin B-12 1,000 mcg tablet 05-13 00:00: 00 08-04 23:59 :00 No [id number] SUPPLEMENT 1 tablet DAILY 1 tablet DAILY (route: oral) Med Classific ation: Electroly te Balance-N utritiona l Products nitrofurant oin macrocrysta l 100 mg capsule 05-21 00:00: 00 06-04 23:59 :00 No [id number] UTI 1 capsule DAILY 1 capsule DAILY (route: oral) Med Classific ation: Genitouri nary Therapy terazosin 1 mg capsule 05-21 00:00: 00 08-04 23:59 :00 No [id number] BLADDER SPASMS 1 capsule BEDTIME 1 capsule BEDTIME (route: oral) Med Classific ation: Cardiovas cular Therapy Agents ciprofloxac in 250 mg tablet 05-25 00:00: 00 05-31 23:59 :00 No [id number] INFECTION 1 tablet 2 TIMES DAILY 1 tablet 2 TIMES DAILY (route: oral) Med Classific ation: Anti-Infe ctive Agents metoprolol succinate ER 25 mg tablet,exte nded release 24 hr 2023-10 00:00: 00 09-02 14:41 :11 No [id number] HTN 0.5 tablet DAILY 0.5 tablet DAILY (route: oral) Med Classific ation: Cardiovas cular Therapy Agents Eliquis 5 mg tablet 07-09 00:00: 00 09-02 14:41 :11 No [id number] AFIB 1 tablet 2 TIMES DAILY 1 tablet 2 TIMES DAILY (route: oral) Med Classific ation: Hematolog ical Agents levothyroxi ne 50 mcg tablet 2023-10 00:00: 00 Yes [id number] THYROID 1 tablet DAILY 1 tablet DAILY (route: oral) Med Classific ation: Endocrine paroxetine 40 mg tablet 2023-10 00:00: 00 Yes [id number] DEPRESSION 1 tablet DAILY 1 tablet DAILY (route: oral) Med Classific ation: Central Nervous System Agents acetaminoph en 325 mg tablet 2023-10 00:00: 00 Yes [id number] PAIN 2 tablet EVERY 4 HOURS 2 tablet EVERY 4 HOURS (route: oral) Med Classific ation: Analgesic , Anti-infl ammatory or Antipyret ic amiodarone 200 mg tablet 2023-10 00:00: 00 Yes [id number] HTN 1 tablet DAILY 1 tablet DAILY (route: oral) Med Classific ation: Cardiovas cular Therapy Agents ascorbic acid (vitamin C) 500 mg tablet 2023-10 00:00: 00 Yes [id number] SUPPLEMENT 1 tablet DAILY 1 tablet DAILY (route: oral) Med Classific ation: Electroly te Balance-N utritiona l Products atorvastati n 80 mg tablet 2023-10 00:00: 00 Yes [id number] HLD 1 tablet DAILY 1 tablet DAILY (route: oral) Med Classific ation: Cardiovas cular Therapy Agents cholecalcif hitesh (vitamin D3) 25 mcg (1,000 unit) tablet 2023-10 00:00: 00 Yes [id number] SUPPLEMENT 1 tablet DAILY 1 tablet DAILY (route: oral) Med Classific ation: Electroly te Balance-N utritiona l Products clopidogrel 75 mg tablet 2023-10 00:00: 00 Yes [id number] BLOOD CLOT PREVENTION 1 tablet DAILY 1 tablet DAILY (route: oral) Med Classific ation: Hematolog ical Agents Colace 100 mg capsule 2023-10 00:00: 00 Yes [id number] STOOL SOFTENER 1 capsule 2 TIMES DAILY 1 capsule 2 TIMES DAILY (route: oral) Med Classific ation: Gastroint estinal Therapy Agents fluticasone 100 mcg-salmete rol 50 mcg/dose blistr powdr for inhalation 2023-10 00:00: 00 Yes [id number] COPD 1 inhalat ion DAILY 1 inhalation DAILY (route: inhalation ) Med Classific ation: Respirato ry Therapy Agents furosemide 40 mg tablet 2023-10 00:00: 00 Yes [id number] EDEMA 1 tablet DAILY 1 tablet DAILY (route: oral) Med Classific ation: Cardiovas cular Therapy Agents melatonin 3 mg tablet 2023-10 00:00: 00 Yes [id number] SLEEP 1 tablet DAILY 1 tablet DAILY (route: oral) Med Classific ation: Central Nervous System Agents pantoprazol e 40 mg tablet,osmar yed release 2023-10 00:00: 00 Yes [id number] GERD 1 tablet DAILY 1 tablet DAILY (route: oral) Med Classific ation: Gastroint estinal Therapy Agents tamsulosin 0.4 mg capsule 2023-10 00:00: 00 Yes [id number] URINE RETENTION 1 capsule DAILY 1 capsule DAILY (route: oral) Med Classific ation: Genitouri nary Therapy terazosin 1 mg capsule 2023-10 00:00: 00 Yes [id number] HTN 1 capsule DAILY 1 capsule DAILY (route: oral) Med Classific ation: Cardiovas cular Therapy Agents Vital Signs Vital Name Observation Time Observation Value Commen ts Temperature 2024-11-16 15:44:00.000 98.3 [degF] Temperature 2024-11-15 13:25:00.000 97.2 [degF] Temperature 2024-11-12 14:30:00.000 97.5 [degF] Temperature 2024-11-04 15:04:00.000 97.4 [degF] Temperature 2024-11-02 15:53:00.000 97.3 [degF] Temperature 2024-10-29 12:57:00.000 97.6 [degF] Temperature 2024-10-18 14:42:00.000 97.6 [degF] Temperature 2024-10-15 19:05:00.000 97 [degF] Temperature 2024-10-06 14:46:00.000 97 [degF] Temperature 2024-09-29 14:43:00.000 97.2 [degF] Temperature 2024-09-28 13:08:00.000 96.7 [degF] Temperature 2024-09-24 12:27:00.000 96.1 [degF] Temperature 2024-09-21 15:02:00.000 97.5 [degF] Temperature 2024-09-20 14:27:00.000 97.5 [degF] BMI (%) 2024-09-20 14:27:00.000 21 kg/m2 Height 2024-09-20 14:27:00.000 66 [in_us] Pulse 2024-11-16 15:44:00.000 65 /min Pulse 2024-11-15 13:25:00.000 60 /min Pulse 2024-11-12 14:30:00.000 80 /min Pulse 2024-11-04 15:04:00.000 62 /min Pulse 2024-11-02 15:53:00.000 63 /min Pulse 2024-10-29 12:57:00.000 62 /min Pulse 2024-10-18 14:42:00.000 85 /min Pulse 2024-10-15 19:05:00.000 68 /min Pulse 2024-10-06 14:46:00.000 78 /min Pulse 2024-09-29 14:43:00.000 80 /min Pulse 2024-09-28 13:08:00.000 88 /min Pulse 2024-09-24 12:27:00.000 88 /min Pulse 2024-09-21 15:02:00.000 72 /min Pulse 2024-09-20 14:27:00.000 80 /min O2 Saturation (%) 2024-11-16 15:44:00.000 97 % O2 Saturation (%) 2024-11-15 13:25:00.000 96 % O2 Saturation (%) 2024-11-12 14:30:00.000 99 % O2 Saturation (%) 2024-11-04 15:04:00.000 96 % O2 Saturation (%) 2024-11-02 15:53:00.000 94 % O2 Saturation (%) 2024-10-29 12:57:00.000 96 % O2 Saturation (%) 2024-10-18 14:42:00.000 96 % O2 Saturation (%) 2024-10-15 19:05:00.000 99 % O2 Saturation (%) 2024-10-06 14:46:00.000 98 % O2 Saturation (%) 2024-09-28 13:08:00.000 99 % O2 Saturation (%) 2024-09-24 12:27:00.000 100 % O2 Saturation (%) 2024-09-21 15:02:00.000 99 % O2 Saturation (%) 2024-09-20 14:27:00.000 99 % Respirations 2024-11-16 15:44:00.000 18 /min Respirations 2024-11-15 13:25:00.000 18 /min Respirations 2024-11-12 14:30:00.000 16 /min Respirations 2024-11-04 15:04:00.000 18 /min Respirations 2024-11-02 15:53:00.000 16 /min Respirations 2024-10-29 12:57:00.000 16 /min Respirations 2024-10-18 14:42:00.000 16 /min Respirations 2024-10-15 19:05:00.000 19 /min Respirations 2024-10-06 14:46:00.000 16 /min Respirations 2024-09-29 14:43:00.000 18 /min Respirations 2024-09-28 13:08:00.000 18 /min Respirations 2024-09-24 12:27:00.000 18 /min Respirations 2024-09-21 15:02:00.000 18 /min Respirations 2024-09-20 14:27:00.000 18 /min Weight (lbs) 2024-11-12 14:36:00.000 148.7 [lb_av] Weight (lbs) 2024-11-02 15:58:00.000 130 [lb_av] Weight (lbs) 2024-10-18 14:48:00.000 130 [lb_av] Weight (lbs) 2024-10-15 19:05:00.000 130 [lb_av] Weight (lbs) 2024-10-06 14:47:00.000 130 [lb_av] Weight (lbs) 2024-09-29 14:43:00.000 130 [lb_av] Weight (lbs) 2024-09-20 14:27:00.000 130.2 [lb_av] Systolic Blood Pressure 2024-11-16 15:44:00.000 132 mm [Hg] Systolic Blood Pressure 2024-11-15 13:25:00.000 130 mm [Hg] Systolic Blood Pressure 2024-11-12 14:30:00.000 120 mm [Hg] Systolic Blood Pressure 2024-11-04 15:04:00.000 110 mm [Hg] Systolic Blood Pressure 2024-11-02 15:53:00.000 122 mm [Hg] Systolic Blood Pressure 2024-10-29 12:57:00.000 110 mm [Hg] Systolic Blood Pressure 2024-10-18 14:42:00.000 122 mm [Hg] Systolic Blood Pressure 2024-10-15 19:05:00.000 130 mm [Hg] Systolic Blood Pressure 2024-10-06 14:46:00.000 126 mm [Hg] Systolic Blood Pressure 2024-09-29 14:43:00.000 120 mm [Hg] Systolic Blood Pressure 2024-09-28 13:08:00.000 100 mm [Hg] Systolic Blood Pressure 2024-09-24 12:27:00.000 100 mm [Hg] Systolic Blood Pressure 2024-09-21 15:02:00.000 132 mm [Hg] Systolic Blood Pressure 2024-09-20 14:27:00.000 146 mm [Hg] Diastolic Blood Pressure 2024-11-16 15:44:00.000 72 mm [Hg] Diastolic Blood Pressure 2024-11-15 13:25:00.000 70 mm [Hg] Diastolic Blood Pressure 2024-11-12 14:30:00.000 60 mm [Hg] Diastolic Blood Pressure 2024-11-04 15:04:00.000 64 mm [Hg] Diastolic Blood Pressure 2024-11-02 15:53:00.000 70 mm [Hg] Diastolic Blood Pressure 2024-10-29 12:57:00.000 66 mm [Hg] Diastolic Blood Pressure 2024-10-18 14:42:00.000 66 mm [Hg] Diastolic Blood Pressure 2024-10-15 19:05:00.000 70 mm [Hg] Diastolic Blood Pressure 2024-10-06 14:46:00.000 [...] INDICATED ] Future Scheduled Test MEDICATION MANAGEMENT; RN/BOILER SERVICE TECHNICIAN/DATABASE CONSULTANT TO REVIEW MEDICATIONS FOR INTERACTIONS, EFFECTIVENESS OF DRUG THERAPY, AND SIGNS/SYMPTOMS OF ADVERSE REACTIONS. MAY INSTRUCT AND REINFORCE MEDICATION TEACHING RELATED TO THE USE OF MEDICATIONS, DOSAGE, FREQUENCY, PURPOSE, SIDE EFFECTS, AND TO REPORT COMPLICATIONS. [code = MEDICATION MANAGEMENT; RN/BOILER SERVICE TECHNICIAN/DATABASE CONSULTANT TO REVIEW MEDICATIONS FOR INTERACTIONS, EFFECTIVENESS OF DRUG THERAPY, AND SIGNS/SYMPTOMS OF ADVERSE REACTIONS. MAY INSTRUCT AND REINFORCE MEDICATION TEACHING RELATED TO THE USE OF MEDICATIONS, DOSAGE, FREQUENCY, PURPOSE, SIDE EFFECTS, AND TO REPORT COMPLICATIONS.] Future Scheduled Test RESPIRATOR Y SYSTEM MANAGEMENT; RN TO ASSESS AND TEACH, BOILER SERVICE TECHNICIAN/DATABASE CONSULTANT TO OBSERVE AND TEACH RELATED TO ALTERED RESPIRATORY STATUS TO MINIMIZE COMPLICATIONS AND REDUCE HOSPITALIZATION. [code = RESPIRATORY SYSTEM MANAGEMENT; RN TO ASSESS AND TEACH, BOILER SERVICE TECHNICIAN/DATABASE CONSULTANT TO OBSERVE AND TEACH RELATED TO ALTERED RESPIRATORY STATUS TO MINIMIZE COMPLICATIONS AND REDUCE HOSPITALIZATION.] Future Scheduled Test COPD MANAG EMENT; RN TO ASSESS AND TEACH, BOILER SERVICE TECHNICIAN/DATABASE CONSULTANT TO OBSERVE AND TEACH SIGNS/SYMPTOMS OF COPD EXACERBATION AND PROVIDE EARLY INTERVENTIONS TO MINIMIZE RISK OF HOSPITALIZATION. RN/BOILER SERVICE TECHNICIAN/DATABASE CONSULTANT TO INSTRUCT ON SELF-CARE MANAGEMENT INCLUDING BREATHING TECHNIQUES, AIRWAY CLEARANCE, AND PROPER USE OF COPD MEDICATIONS. RN TO ASSESS AND TEACH, BOILER SERVICE TECHNICIAN/DATABASE CONSULTANT TO OBSERVE AND TEACH PATIENT/CAREGIVER ABILITY TO MONITOR AND RECORD VITAL SIGNS INCLUDING PULSE OXIMETRY AND BLOOD PRESSURE. PULSE OXIMETER AND BP MONITOR TO BE PROVIDED IF NEEDED [code = COPD MANAGEMENT; RN TO ASSESS AND TEACH, BOILER SERVICE TECHNICIAN/DATABASE CONSULTANT TO OBSERVE AND TEACH SIGNS/SYMPTOMS OF COPD EXACERBATION AND PROVIDE EARLY INTERVENTIONS TO MINIMIZE RISK OF HOSPITALIZATION. RN/BOILER SERVICE TECHNICIAN/DATABASE CONSULTANT TO INSTRUCT ON SELF-CARE MANAGEMENT INCLUDING BREATHING TECHNIQUES, AIRWAY CLEARANCE, AND PROPER USE OF COPD MEDICATIONS. RN TO ASSESS AND TEACH, BOILER SERVICE TECHNICIAN/DATABASE CONSULTANT TO OBSERVE AND TEACH PATIENT/CAREGIVER ABILITY TO MONITOR AND RECORD VITAL SIGNS INCLUDING PULSE OXIMETRY AND BLOOD PRESSURE. PULSE OXIMETER AND BP MONITOR TO BE PROVIDED IF NEEDED] Future Scheduled Test FALL REDUC TION MANAGEMENT; RN TO ASSESS AND TEACH, BOILER SERVICE TECHNICIAN/DATABASE CONSULTANT TO OBSERVE AND TEACH ON EDUCATION AND INTERVENTION TO IDENTIFY FALL RISK FACTORS SUCH MEDICATIONS THAT MAY CAUSE DIZZINESS, CHRONIC DISEASES, PSYCHOLOGICAL FACTORS, AND EMPOWER/EDUCATE PATIENT/CAREGIVER TO MINIMIZE FALL RISK. [code = FALL REDUCTION MANAGEMENT; RN TO ASSESS AND TEACH, BOILER SERVICE TECHNICIAN/DATABASE CONSULTANT TO OBSERVE AND TEACH ON EDUCATION AND INTERVENTION TO IDENTIFY FALL RISK FACTORS SUCH MEDICATIONS THAT MAY CAUSE DIZZINESS, CHRONIC DISEASES, PSYCHOLOGICAL FACTORS, AND EMPOWER/EDUCATE PATIENT/CAREGIVER TO MINIMIZE FALL RISK.] Future Scheduled Test GENITOURIN [id number] MANAGEMENT; RN TO ASSESS AND TEACH, BOILER SERVICE TECHNICIAN/DATABASE CONSULTANT TO OBSERVE AND TEACH RELATED TO ALTERED GENITOURINARY STATUS TO MINIMIZE COMPLICATIONS AND REDUCE HOSPITALIZATION. [code = GENITOURINARY MANAGEMENT; RN TO ASSESS AND TEACH, BOILER SERVICE TECHNICIAN/DATABASE CONSULTANT TO OBSERVE AND TEACH RELATED TO ALTERED GENITOURINARY STATUS TO MINIMIZE COMPLICATIONS AND REDUCE HOSPITALIZATION.] Future Scheduled Test INDWELLING URINARY CATHETER MANAGEMENT; RN/BOILER SERVICE TECHNICIAN/DATABASE CONSULTANT TO INSTRUCT PATIENT / CAREGIVER ON INDWELLING URINARY CATHETER MANAGEMENT INCLUDING CARE OF CATHETER, SIGN AND SYMPTOMS OF COMPLICATIONS, PERINEAL CARE, TUBE AND BAG PLACEMENT, PREVENTION OF INFECTION AND SKIN BREAKDOWN. [code = INDWELLING URINARY CATHETER MANAGEMENT; RN/BOILER SERVICE TECHNICIAN/DATABASE CONSULTANT TO INSTRUCT PATIENT / CAREGIVER ON INDWELLING [...] DR LUO. RN TO OBSERVE AND ASSESS, BOILER SERVICE TECHNICIAN/DATABASE CONSULTANT TO OBSERVE FOR RISK FOR FALLS AND INSTRUCT IN FALL PREVENTION, HOME SAFETY, MEDICATION MANAGEMENT, INFECTION PREVENTION, AND NUTRITION MANAGEMENT. RN/BOILER SERVICE TECHNICIAN/DATABASE CONSULTANT NURSE MAY PERFORM O2 SATURATION LEVEL ON ADMISSION AND PRN FOR SOB FOR RN TO ASSESS/BOILER SERVICE TECHNICIAN TO OBSERVE PATIENT, WITH NOTIFICATION TO THE PHYSICIAN IF SATURATION IS 90% IN THE ABSENCE OF MORE SPECIFIC PARAMETERS FROM THE PHYSICIAN. AGENCY MAY PERFORM A RESUMPTION OF CARE VISIT FOLLOWING ANY HOSPITAL ADMISSION. RN/BOILER SERVICE TECHNICIAN/DATABASE CONSULTANT TO MONITOR CO-MORBID CONDITIONS LISTED ON THE PLAN OF CARE AND ANY NEW CONDITIONS THAT PRESENT THEMSELVES DURING THIS EPISODE TO IDENTIFY CHANGES AND INTERVENE TO MINIMIZE COMPLICATIONS. [code = RN TO OBSERVE, ASSESS, EVALUATE, AND DEVELOP AN INDIVIDUALIZED PLAN OF CARE. AGENCY MAY ACCEPT ORDERS FROM CONSULTING PHYSICIANS DR TERRY GUADARRAMA, DR LUO. RN TO OBSERVE AND ASSESS, BOILER SERVICE TECHNICIAN/DATABASE CONSULTANT TO OBSERVE FOR RISK FOR FALLS AND INSTRUCT IN FALL PREVENTION, HOME SAFETY, MEDICATION MANAGEMENT, INFECTION PREVENTION, AND NUTRITION MANAGEMENT. RN/BOILER SERVICE TECHNICIAN/DATABASE CONSULTANT NURSE MAY PERFORM O2 SATURATION LEVEL ON ADMISSION AND PRN FOR SOB FOR RN TO ASSESS/BOILER SERVICE TECHNICIAN TO OBSERVE PATIENT, WITH NOTIFICATION TO THE PHYSICIAN IF SATURATION IS 90% IN THE ABSENCE OF MORE SPECIFIC PARAMETERS FROM THE PHYSICIAN. AGENCY MAY PERFORM A RESUMPTION OF CARE VISIT FOLLOWING ANY HOSPITAL ADMISSION. RN/BOILER SERVICE TECHNICIAN/DATABASE CONSULTANT TO MONITOR CO-MORBID CONDITIONS LISTED ON THE PLAN OF CARE AND ANY NEW CONDITIONS THAT PRESENT THEMSELVES DURING THIS EPISODE TO IDENTIFY CHANGES AND INTERVENE TO MINIMIZE COMPLICATIONS.] Future Scheduled Test PAIN MANAG EMENT; RN TO ASSESS AND TEACH, DATABASE CONSULTANT/BOILER SERVICE TECHNICIAN TO OBSERVE AND TEACH AND PROVIDE EDUCATION ON PAIN MANAGEMENT TECHNIQUES. [code = PAIN MANAGEMENT; RN TO ASSESS AND TEACH, DATABASE CONSULTANT/BOILER SERVICE TECHNICIAN TO OBSERVE AND TEACH AND PROVIDE EDUCATION ON PAIN MANAGEMENT TECHNIQUES.] Future Scheduled Test RN/BOILER SERVICE TECHNICIAN/DATABASE CONSULTANT TO PERFORM/TEACH PATIENT/CAREGIVER WOUND CARE TO SKIN TEAR LEFT ARM. MONITOR STERI STRIPS FOR SIGNS OR SYMPTOMS OF INFECTION. COVER WITH BORDER GAUZE NEEDED [code = RN/BOILER SERVICE TECHNICIAN/DATABASE CONSULTANT TO PERFORM/TEACH PATIENT/CAREGIVER WOUND CARE TO SKIN TEAR LEFT ARM. MONITOR STERI STRIPS FOR SIGNS OR SYMPTOMS OF INFECTION. COVER WITH BORDER GAUZE NEEDED] Future Scheduled Test PRN VISITS ; NUMBER OF RN/BOILER SERVICE TECHNICIAN/DATABASE CONSULTANT VISITS: RN/BOILER SERVICE TECHNICIAN/DATABASE CONSULTANT TO PERFORM: GENITOURINARY ASSESSMENT FOR THE FOLLOWING REASONS: GENITOURINARY COMPLICATIONS [code = PRN VISITS; NUMBER OF RN/BOILER SERVICE TECHNICIAN/DATABASE CONSULTANT VISITS: RN/BOILER SERVICE TECHNICIAN/DATABASE CONSULTANT TO PERFORM: GENITOURINARY ASSESSMENT FOR THE FOLLOWING REASONS: GENITOURINARY COMPLICATIONS ] Future Scheduled Test RISK FOR H OSPITALIZATION; RN TO ASSESS/TEACH, DATABASE CONSULTANT/BOILER SERVICE TECHNICIAN TO OBSERVE/TEACH PATIENT/CAREGIVER ON RISK FOR HOSPITALIZATION/EMERGENCY ROOM VISITS, TEACH SIGNS AND SYMPTOMS THAT PUT PATIENT AT RISK, WHEN TO NOTIFY NURSE/PHYSICIAN OF COMPLICATIONS/DECLINE, AND WHEN TO CALL 911. [code = RISK FOR HOSPITALIZATION; RN TO ASSESS/TEACH, DATABASE CONSULTANT/BOILER SERVICE TECHNICIAN TO OBSERVE/TEACH PATIENT/CAREGIVER ON RISK FOR HOSPITALIZATION/EMERGENCY ROOM VISITS, TEACH SIGNS AND SYMPTOMS THAT PUT PATIENT AT RISK, WHEN TO NOTIFY NURSE/PHYSICIAN OF COMPLICATIONS/DECLINE, AND WHEN TO CALL 911.] Future Scheduled Test CARDIOVASC ULAR SYSTEM; RN TO ASSESS/TEACH, BOILER SERVICE TECHNICIAN/DATABASE CONSULTANT TO OBSERVE/TEACH RELATED TO ALTERED CARDIOVASCULAR STATUS TO MINIMIZE COMPLICATIONS AND REDUCE HOSPITALIZATION. [code = CARDIOVASCULAR SYSTEM; RN TO ASSESS/TEACH, BOILER SERVICE TECHNICIAN/DATABASE CONSULTANT TO OBSERVE/TEACH RELATED TO ALTERED CARDIOVASCULAR STATUS TO MINIMIZE COMPLICATIONS AND REDUCE HOSPITALIZATION.] Future Scheduled Test HYPERTENSI ON MANAGEMENT; RN TO ASSESS AND TEACH, BOILER SERVICE TECHNICIAN/DATABASE CONSULTANT TO OBSERVE AND TEACH WARNING SIGNS AND SYMPTOMS TO AVOID HOSPITALIZATION. [code = HYPERTENSION MANAGEMENT; RN TO ASSESS AND TEACH, BOILER SERVICE TECHNICIAN/DATABASE CONSULTANT TO OBSERVE AND TEACH WARNING SIGNS AND SYMPTOMS TO AVOID HOSPITALIZATION.] Future Scheduled Test ARRHYTHMIA MANAGEMENT; RN TO ASSESS AND TEACH, BOILER SERVICE TECHNICIAN/DATABASE CONSULTANT TO OBSERVE AND TEACH WARNING SIGNS AND SYMPTOMS TO AVOID HOSPITALIZATION. [code = ARRHYTHMIA MANAGEMENT; RN TO ASSESS AND TEACH, BOILER SERVICE TECHNICIAN/DATABASE CONSULTANT TO OBSERVE AND TEACH WARNING SIGNS AND SYMPTOMS TO AVOID HOSPITALIZATION.] Future Scheduled Test AGENCY MAY PERFORM A RESUMPTION OF CARE VISIT FOLLOWING ANY HOSPITAL ADMISSION. OT TO EVALUATE, OBSERVE / ASSESS, AND MONITOR, JUNITO TO OBSERVE AND MONITOR, PROVIDE SKILLED THERAPEUTIC INTERVENTION, ACTIVITY, EDUCATION, AND TRAINING TO ADDRESS; DRESSING (OT/ETCHER PRINTED CIRCUIT BOARDS) ACTIVITIES OF DAILY LIVING (OT/JUNITO) TOILET TRANSFER (OT/ETCHER PR[employer]ED CIRCUIT BOARDS) BATH/SHOWER TRANSFER (OT/JUNITO) HOME ACTIVITY / EXERCISE PROGRAM (OT/ETCHER [employer] BOARDS) ENERGY CONSERVATION/ACTIVITY DEMAND (OT/ETCHER [employer] BOARDS) OT/ETCHER PRINTED CIRCUIT BOARDS TO MONITOR AND EDUCATE ON OXYGEN SATURATION DURING ADLS/IADLS, NOTIFY PHYSICIAN AND/OR THE RN CLINICAL BENCH LATHE OPERATOR FOR PHYSICIAN NOTIFICATION AND IF O2 SATS BELOW 90% AFTER 10 MIN OF REST. OT/ETCHER [employer]ED [employer] BOARDS MAY EDUCATE ON PAIN MANAGEMENT CLINICALLY INDICATED, [...] ACTIVITY, EDUCATION, AND TRAINING TO ADDRESS; DRESSING (OT/ETCHER PR[employer]ED [employer] BOARDS) ACTIVITIES OF DAILY LIVING (OT/ETCHER PR[employer]ED CIRCUIT BOARDS) TOILET TRANSFER (OT/JUNITO) BATH/SHOWER TRANSFER (OT/ETCHER PR[employer]ED CIRCUIT BOARDS) HOME ACTIVITY / EXERCISE PROGRAM (OT/ETCHER PR[employer] BOARDS) ENERGY CONSERVATION/ACTIVITY DEMAND (OT/JUNITO) OT/ETCHER PR[employer]ED CIRCUIT BOARDS TO MONITOR AND EDUCATE ON OXYGEN SATURATION DURING ADLS/IADLS, NOTIFY PHYSICIAN AND/OR THE RN CLINICAL BENCH LATHE OPERATOR FOR PHYSICIAN NOTIFICATION AND IF O2 SATS BELOW 90% AFTER 10 MIN OF REST. OT/ETCHER [employer] BOARDS MAY EDUCATE ON PAIN MANAGEMENT CLINICALLY INDICATED, INCLUDING NON-PHARMACOLOGICAL PAIN REDUCTION TECHNIQUES AND USE OF CRYOTHERAPY OR HEAT UP TO 20 MIN AT A TIME FOR PAIN MANAGEMENT TO GENERAL PAIN OT / ET[employer] BOARDS TO IDENTIFY FALL RISK FACTORS; EDUCATE THE PATIENT/CAREGIVER ON WAYS TO REDUCE FALL RISK FACTORS AND ESTABLISH HOME EXERCISE PROGRAM TO MINIMIZE FALL RISK. MAY TEACH THE PATIENT FLOOR RECOVERY WHEN CLINICALLY APPROPRIATE.] Future Scheduled Test AGENCY MAY PERFORM A RESUMPTION OF CARE VISIT FOLLOWING ANY HOSPITAL ADMISSION. PT TO EVALUATE, OBSERVE / ASSESS, AND MONITOR, MARBLE CARVER TO OBSERVE AND MONITOR, PROVIDE SKILLED THERAPEUTIC INTERVENTION, ACTIVITY, EDUCATION, AND TRAINING TO ADDRESS; PT/MARBLE CARVER TO PROVIDE GAIT TRAINING FOR IMPROVED MOBILITY AND /OR TO NORMALIZE GAIT PATTERN NEUROMUSCULAR RE-EDUCATION / BALANCE / POSTURAL CONTROL (PT) THERAPEUTIC EXERCISES AND ESTABLISHING A HOME EXERCISE PROGRAM (PT/MARBLE CARVER) PT/MARBLE CARVER TO PROVIDE STAIR TRAINING SIT TO/FROM STAND TRANSFERS (PT/MARBLE CARVER) PT / MARBLE CARVER TO MONITOR AND EDUCATE ON OXYGEN SATURATION DURING ADLS/IADLS, NOTIFY PHYSICIAN AND/OR THE RN CLINICAL BENCH LATHE OPERATOR FOR PHYSICIAN NOTIFICATION AND IF O2 SATS BELOW PHYSICIAN ORDERED PARAMETERS AFTER 10 MIN OF REST PT / MARBLE CARVER MAY EDUCATE ON PAIN MANAGEMENT CLINICALLY INDICATED, INCLUDING NON-PHARMACOLOGICAL PAIN REDUCTION TECHNIQUES PT / MARBLE CARVER TO MONITOR FOR SIGNS AND SYMPTOMS OF UTI AND EDUCATE PATIENT/CAREGIVER TO MINIMIZE RISK OF DEVELOPING A UTI. PT / MARBLE CARVER TO EDUCATE ON ATRIAL FIBRILLATION SELF-MANAGEMENT. PT/MARBLE CARVER TO IDENTIFY FALL RISK FACTORS; EDUCATE THE PATIENT/CAREGIVER ON WAYS TO REDUCE FALL RISK FACTORS AND ESTABLISH HOME EXERCISE PROGRAM TO MINIMIZE FALL RISK. MAY TEACH THE PATIENT FLOOR RECOVERY WHEN CLINICALLY APPROPRIATE [code = AGENCY MAY PERFORM A RESUMPTION OF CARE VISIT FOLLOWING ANY HOSPITAL ADMISSION. PT TO EVALUATE, OBSERVE / ASSESS, AND MONITOR, MARBLE CARVER TO OBSERVE AND MONITOR, PROVIDE SKILLED THERAPEUTIC INTERVENTION, ACTIVITY, EDUCATION, AND TRAINING TO ADDRESS; PT/MARBLE CARVER TO PROVIDE GAIT TRAINING FOR IMPROVED MOBILITY AND /OR TO NORMALIZE GAIT PATTERN NEUROMUSCULAR RE-EDUCATION / BALANCE / POSTURAL CONTROL (PT) THERAPEUTIC EXERCISES AND ESTABLISHING A HOME EXERCISE PROGRAM (PT/MARBLE CARVER) PT/MARBLE CARVER TO PROVIDE STAIR TRAINING SIT TO/FROM STAND TRANSFERS (PT/MARBLE CARVER) PT / MARBLE CARVER TO MONITOR AND EDUCATE ON OXYGEN SATURATION DURING ADLS/IADLS, NOTIFY PHYSICIAN AND/OR THE RN CLINICAL BENCH LATHE OPERATOR FOR PHYSICIAN NOTIFICATION AND IF O2 SATS BELOW PHYSICIAN ORDERED PARAMETERS AFTER 10 MIN OF REST PT / MARBLE CARVER MAY EDUCATE ON PAIN MANAGEMENT CLINICALLY INDICATED, INCLUDING NON-PHARMACOLOGICAL PAIN REDUCTION TECHNIQUES PT / MARBLE CARVER TO MONITOR FOR SIGNS AND SYMPTOMS OF UTI AND EDUCATE PATIENT/CAREGIVER TO MINIMIZE RISK OF DEVELOPING A UTI. PT / MARBLE CARVER TO EDUCATE ON ATRIAL FIBRILLATION SELF-MANAGEMENT. PT/MARBLE CARVER TO IDENTIFY FALL RISK FACTORS; EDUCATE THE PATIENT/CAREGIVER ON WAYS TO REDUCE FALL RISK FACTORS AND ESTABLISH HOME EXERCISE PROGRAM TO MINIMIZE FALL RISK. MAY TEACH THE PATIENT FLOOR RECOVERY WHEN CLINICALLY APPROPRIATE] Goal 2024-11-15 Patient Goal - G ET STRONGER AND INDEPENDENT IN HOME Goal Patient Goal - G ET STRONGER [...] End Date/Time Encounter Type Admission Type Attending [facility] Care Facility Care Department Encounter ID Discharge Date Discharge Status Discharge Condition Discharge Reason Percent Goals Met 2024-09-20 00:00:00 2024-11-18 00:00:00 Outpatient [facility] [id number]
--- OUTSIDE RECORDS SUMMARY | 2024-11-24 15:57 | XMS_ITS | Clinical Summary ---
Author Organization [facility] Address [address] [place] [address] Care Team Providers Care Top Lift Compressor Name Role Phone No, Referring Primary Care [...] to 7.9/25.9 in the ED. Baseline per [place] lab Hgb ~8.5-10. No concern of GI [...] to 7.9/25.9 in the ED. Baseline per [place] lab Hgb ~8.5-10. No concern of GI bleed. - Eliquis per afib section - Start IV iron once stable from infection perspective Assessment & Plan (08/18/2024 3:41 PM EDT): Microcytic anemia. Home med: Iron sulfate 325 mg daily. Presented with H/H 9.3 and 32.5, down trending to 7.9/25.9 in the ED. Baseline per [place] lab Hgb ~8.5-10. No concern of GI bleed. - Eliquis per afib section - Start IV iron once stable from infection perspective Assessment & Plan (08/17/2024 2:57 PM EDT): Microcytic anemia. Home med: Iron sulfate 325 mg daily. Presented with H/H 9.3 and 32.5, down trending to 7.9/25.9 in the ED. Baseline per [place] lab Hgb ~8.5-10. No concern of GI bleed. - Eliquis per afib section - Start IV iron once stable from infection perspective Assessment & Plan (08/16/2024 1:21 PM EDT): Microcytic anemia. Home med: Iron sulfate 325 mg daily. Presented with H/H 9.3 and 32.5, down trending to 7.9/25.9 in the ED. Baseline per [place] lab Hgb ~8.5-10. No concern of GI bleed. - Restart home eliquis at lower dose - Start IV iron once stable from infection perspective Assessment & Plan (08/15/2024 2:33 PM EDT): Microcytic anemia. Home med: Iron sulfate 325 mg daily. Presented with H/H 9.3 and 32.5, down trending to 7.9/25.9 in the ED. Baseline per [place] lab Hgb ~8.5-10. No concern of GI bleed. - Holding home eliquis - Will begin IV iron once stable from infection perspective Assessment & Plan (08/15/2024 12:34 PM EDT): Microcytic anemia. Home med: Iron sulfate 325 mg daily. Presented with H/H 9.3 and 32.5, down trending to 7.9/25.9 in the ED. Baseline per [place] lab Hgb ~8.5-10. No concern of GI bleed. - Holding home eliquis - Will begin IV iron once stable from infection perspective Assessment & Plan (08/14/2024 8:36 PM EDT): Microcytic anemia. Home med: Iron sulfate 325 mg daily. Presented with H/H 9.3 and 32.5, down trending to 7.9/25.9 in the ED. Baseline per [place] lab Hgb ~8.5-10. No concern of GI [...] to 7.9/25.9 in the ED. Baseline per [place] lab Hgb ~8.5-10. No concern of GI [...] to 7.9/25.9 in the ED. Baseline per [place] lab Hgb ~8.5-10. No concern of GI [...] to 7.9/25.9 in the ED. Baseline per [place] lab Hgb ~8.5-10. No concern of GI bleed. - Holding home eliquis - IV iron started per HF section Assessment & Plan (08/10/2024 6:12 PM EDT): Microcytic anemia. Home med: Iron sulfate 325 mg daily. Presented with H/H 9.3 and 32.5, down trending to 7.9/25.9 in the ED. Baseline per [place] lab Hgb ~8.5-10. No concern of GI bleed. - Holding home anticoagulation Assessment & Plan (08/09/2024 5:57 PM EDT): Patient presented with nose bleeds. Found to be anemic with an H/H 9.3 and 32.5, down trending to 7.9/25.9 in the ED. Baseline per [place] lab hgb ~8.5-10. No concern of GI [...] Lopressor 50 mg BID, Follows Cardiology at [place]. Called [facility] pharmacy in [place] who reported that she didn't refill her [...] Lopressor 50 mg BID, Follows Cardiology at [place]. Called [facility] pharmacy in [place] who reported that she didn't refill her [...] Lopressor 50 mg BID, Follows Cardiology at [place]. Called [facility] pharmacy in [place] who reported that she didn't refill her [...] Lopressor 50 mg BID, Follows Cardiology at [place]. Called [facility] pharmacy in [place] who reported that she didn't refill her [...] Lopressor 50 mg BID, Follows Cardiology at [place]. Called [facility] pharmacy in [place] who reported that she didn't refill her [...] Lopressor 50 mg BID, Follows Cardiology at [place]. Called [facility] pharmacy in [place] who reported that she didn't refill her [...] Lopressor 50 mg BID, Follows Cardiology at [place]. Called [facility] pharmacy in [place] who reported that she didn't refill her [...] Lopressor 50 mg BID, Follows Cardiology at [place]. Called [facility] pharmacy in [place] who reported that she didn't refill her Eliquis in March 2024. Patient noted to be irregular, irregular on exam. - Hold home Eliquis and Amio due to acute liver failure. - Lopressor 50 mg BID Assessment & Plan (2024 2:30 PM EDT): Home med: Eliquis 2.5 mg BID, Amio 200 mg daily, Follows Cardiology at [place]. Called [facility] pharmacy in [place] who reported that she didn't refill her Eliquis in March 2024. Patient noted to be irregular, irregular on exam. - Hold home Eliquis - Lopressor 50 mg BID Assessment & Plan (08/12/2024 7:50 PM EDT): Home med: Eliquis 2.5 mg BID, Amio 200 mg daily, Follows Cardiology at [place]. Called [facility] pharmacy in [place] who reported that she didn't refill her Eliquis in March 2024. Patient noted to be irregular, irregular on exam. - Hold home Eliquis - Lopressor 50 mg BID Assessment & Plan (08/11/2024 6:29 PM EDT): Home med: Eliquis 2.5 mg BID, Amio 200 mg daily, Follows Cardiology at [place]. Called [facility] pharmacy in [place] who reported that she didn't refill her Eliquis in March 2024. Patient noted to be irregular, irregular on exam. - Hold home Eliquis - Lopressor 50 mg BID Assessment & Plan (08/10/2024 6:12 PM EDT): Home med: Eliquis 2.5 mg BID, Amio 200 mg daily, Follows Cardiology at [place]. Called [facility] pharmacy in [place] who reported that she didn't refill her Eliquis in March 2024. Patient noted to be irregular, irregular on exam. - Hold home Eliquis - Lopressor 25 mg BID Assessment & Plan (08/09/2024 5:57 PM EDT): History of afib, reportedly on Eliquis. Follows Cardiology at [place]. Called [facility] pharmacy in [place] who reported that she didn't refill her [...] dribbles out. She follows with urology at [place]. She has required straight caths before, and [...] dribbles out. She follows with urology at [place]. She has required straight caths before, and [...] dribbles out. She follows with urology at [place]. She has required straight caths before, and [...] dribbles out. She follows with urology at [place]. She has required straight caths before, and [...] Furosemide 20 mg PO every day Follows [facility] at [place] (Dr. 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 Tera Lizama) Patient with a history of HFrEF, unknown last EF, presenting for several days of worsening orthopnea. New oxygen requirement on 2L NC, CXR showed pulmonary edema but clinically doesn't appear volume overload. Pro-BNP 64,308. Unable to obtain prior TTE result from [place]. Trop elevated to 34, likely demand ischemia [...] 08/11/2024 progress note for cardiology notes from [place]. - Hold home lasix dose - Lopressor [...] Furosemide 20 mg PO every day Follows [facility] at [place] (Dr. Tera Lizama) Patient with a history of HFrEF, unknown last EF, presenting for several days of worsening orthopnea. New oxygen requirement on 2L NC, CXR showed pulmonary edema but clinically doesn't appear volume overload. Pro-BNP 64,308. Unable to obtain prior TTE result from [place]. Trop elevated to 34, likely demand ischemia [...] 08/11/2024 progress note for cardiology notes from [place]. - Hold home lasix dose - Continue [...] Furosemide 20 mg PO every day Follows automatic [facility] tester at [place] (Dr. Tera Lizama) Patient with a history of HFrEF, unknown last EF, presenting for several days of worsening orthopnea. New oxygen requirement on 2L NC, CXR showed pulmonary edema but clinically doesn't appear volume overload. Pro-BNP 64,308. Unable to obtain prior TTE result from [place]. Trop elevated to 34, likely demand ischemia [...] 08/11/2024 progress note for cardiology notes from [place]. 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 Tera Lizama) Patient with a history of HFrEF, unknown last EF, presenting for several days of worsening orthopnea. New oxygen requirement on 2L NC, CXR showed pulmonary edema but clinically doesn't appear volume overload. Pro-BNP 64,308. Unable to obtain prior TTE result from [place]. Trop elevated to 34, likely demand ischemia [...] for further details for cardiology notes from [place]. 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 Patient with a history of HFrEF, unknown last EF, presenting for several days of worsening orthopnea. New oxygen requirement on 2L NC, CXR showed pulmonary edema but clinically doesn't appear volume overload. Pro-BNP 64,308. Unable to obtain prior TTE result from [place]. Trop elevated to 34, likely demand ischemia [...] Unable to obtain prior TTE result from [place]. Trop elevated to 34, likely demand ischemia [...] on admission. Per request from lab at [place], patient's most recent creatinines are elevated to 2.54-2.96. Patient has a history of CKD and was previously following with Dr. Garber at [facility], however, last appointment available in [facility] is from 04/24/2023. Renal following. Likely [...] on admission. Per request from lab at [place], patient's most recent creatinines are elevated to 2.54-2.96. Patient has a history of CKD and was previously following with Dr. Garber at [facility], however, last appointment available in [facility] is from 04/24/2023. Renal following. Likely ATN in setting of shock on presentation. Improving. Nephro consulted, appreciate recs: - Daily BMP - Ordered CPK to rule out rhabdo - 1.5L fluid restriction Assessment & Plan (08/18/2024 3:41 PM EDT): Cr elevated to 3.38 with an eGFR of 14 on admission. Per request from lab at [place], patient's most recent creatinines are elevated to 2.54-2.96. Patient has a history of CKD and was previously following with Dr. Garber at [facility], however, last appointment available in [facility] is from 04/24/2023. Renal following. Likely ATN in setting of shock on presentation. Improving. Nephro consulted, appreciate recs: - Daily BMP - Ordered CPK to rule out rhabdo - 1.5L fluid restriction Assessment & Plan (08/17/2024 2:57 PM EDT): Cr elevated to 3.38 with an eGFR of 14 on admission. Per request from lab at [place], patient's most recent creatinines are elevated to 2.54-2.96. Patient has a history of CKD and was previously following with Dr. Garber at [facility], however, last appointment available in [facility] is from 04/24/2023. Renal following. Likely ATN in setting of shock on presentation. Improving. Nephro consulted, appreciate recs: - Daily BMP - Ordered CPK to rule out rhabdo - 1.5L fluid restriction Assessment & Plan (08/16/2024 1:31 PM EDT): Cr elevated to 3.38 with an eGFR of 14 on admission. Per request from lab at [place], patient's most recent creatinines are elevated to 2.54-2.96. Patient has a history of CKD and was previously following with Dr. Garber at [facility], however, last appointment available in [facility] is from 04/24/2023. Renal following. Likely ATN in setting of shock on presentation. Improving. Nephro consulted, appreciate recs: - Daily BMP - Ordered CPK to rule out rhabdo - 1.5L fluid restriction Assessment & Plan (08/15/2024 2:33 PM EDT): Cr elevated to 3.38 with an eGFR of 14 on admission. Per request from lab at [place], patient's most recent creatinines are elevated to 2.54-2.96. Patient has a history of CKD and was previously following with Dr. Garber at [facility], however, last appointment available in [facility] is from 04/24/2023. Renal following. Likely ATN in setting of shock on presentation. Improving. - Daily BMP Assessment & Plan (08/15/2024 12:34 PM EDT): Cr elevated to 3.38 with an eGFR of 14 on admission. Per request from lab at [place], patient's most recent creatinines are elevated to 2.54-2.96. Patient has a history of CKD and was previously following with Dr. Garber at [facility], however, last appointment available in [facility] is from 04/24/2023. Renal following. Likely ATN in setting of shock on presentation. Improving. - Daily BMP Assessment & Plan (08/14/2024 8:36 PM EDT): Cr elevated to 3.38 with an eGFR of 14 on admission. Per request from lab at [place], patient's most recent creatinines are elevated to 2.54-2.96. Patient has a history of CKD and was previously following with Dr. Garber at [facility], however, last appointment available in [facility] is from 04/24/2023. Renal following. Likely ATN in setting of shock on presentation Assessment & Plan (2024 2:30 PM EDT): Cr elevated to 3.38 with an eGFR of 14 on admission. Per request from lab at [place], patient's most recent creatinines are elevated to 2.54-2.96. Patient has a history of CKD and was previously following with Dr. Garber at [facility], however, last appointment available in [facility] is from 04/24/2023. Renal following. - Patient will require close monitoring as well especially in the setting of hypothermia and septic shock on admission causing ischemic liver injury and worsening SUSAN. - Evidence of secondary hyperparathyroidism, renal is following Assessment & Plan (08/12/2024 7:50 PM EDT): Cr elevated to 3.38 with an eGFR of 14 on admission. Per request from lab at [place], patient's most recent creatinines are elevated to 2.54-2.96. Patient has a history of CKD and was previously following with Dr. Garber at [facility], however, last appointment available in [facility] is from 04/24/2023. Renal following. - [...] on admission. Per request from lab at [place], patient's most recent creatinines are elevated to 2.54-2.96. Patient has a history of CKD and was previously following with Dr. Garber at [facility], however, last appointment available in [facility] is from 04/24/2023. Renal following. - [...] on admission. Per request from lab at [place], patient's most recent creatinines are elevated to 2.54-2.96. Patient has a history of CKD and was previously following with Dr. Garber at [facility], however, last appointment available in [facility] is from 04/24/2023. Renal following. - Patient will require close monitoring as well especially in the setting of hypothermia and septic shock on admission causing ischemic liver injury and worsening SUSAN. - Strict I/O Assessment & Plan (08/09/2024 5:57 PM EDT): Cr elevated to 3.38 with an eGFR of 14 on admission. Per request from lab at [place], patient's most recent creatinines are elevated to 2.54-2.96. Patient has a history of CKD and was previously following with Dr. Garber at [facility], however, last appointment available in [facility] is from 04/24/2023. - Nephro following: [...] Date Smoking Tobacco: Never Assessed [facility] Utilities Answer Date Recorded In the past 12 months has [employer], [employer], oil, or water [employer] threatened to shut off services in your [...] 08/11/2024 6:00 AM EDT Plan of Treatment Health Maintenance Due Date Last Done Comments 25 Hydroxy / Vitamin D 1953 CKD: Referral to Nephrology 1953 Cologuard 1953 Colon Cancer Screening 1953 Colonoscopy 1953 FOBT / Fit Test 1953 Sigmoidoscopy 1953 Pneumococcal Vaccine: 65+ Years (1 of 2 - PCV) 1959 DTaP,Tdap,and Td Vaccines (1 - Tdap) 1975 Mammogram 1993 Osteoporosis Screening 2003 Zoster Vaccines (1 of 2) 2003 RSV Vaccine (60+ years old and patients) (1 - Risk 60-74 years 1-dose series) 2013 Urine Microalbumin 04/03/2024 04/03/2023 COVID-19 Vaccine ( - season) 2024 07/15/2022, 09/01/2021, 01/08/2021, Additional history exists Influenza Vaccine (#1) 2024 Alcohol/Substance Use Screening 10/27/2024 Depression Evaluation 10/27/2024 Health Care Proxy Review 10/27/2024 Social Drivers of Health Annual Screening 10/27/2024 08/10/2024 Basic Metabolic Panel 12/21/2024 08/20/2024 , 08/19/2024, 08/18/2024, Additional history exists PTH 08/12/2025 08/12/2024 Phosphorus 08/12/2025 08/12/2024, 08/09/2024 Hemoglobin 08/20/2025 08/20/2024, 07/28, 08/18/2024, Additional history exists Hepatitis C Screening Completed 08/09/2024 Hepatitis B Vaccines Aged Out No long er eligible based on patient's age to complete this topic Procedures * Due to [facility] law, this organization might not be sharing [...] to Health Maintenance Results * Due to [place] [employer] law, this organization might not be sharing negative HIV tests. * (ABNORMAL) CBC Auto Differential (08/20/2024 6:44 AM EDT) WBC 6.2 3.8 - 10.8 10*3/uL 08/20/2024 7:40 AM EDT [facility] RBC 3.24(L) 3.80 - 5.10 10*6/uL 08/20/2024 7:40 AM EDT [facility] Hemoglobin 7.7(L) 11.7 - 15.5 g/dL 08/20/2024 7:40 AM EDT [facility] Hematocrit 26.1(L) 35.0 - 45.0 % 08/20/2024 7:40 AM EDT [facility] MCV 80.6 80.0 - 100.0 fL 08/20/2024 7:40 AM EDT [facility] MCH 23.8(L) 27.0 - 33.0 pg 08/20/2024 7:40 AM EDT [facility] MCHC 29.5(L) 32.0 - 36.0 g/dL 08/20/2024 7:40 AM EDT [facility] RDW 16.9(H) 11.0 - 15.0 % 08/20/2024 7:40 AM EDT [facility] Platelets 196 140 - 400 10*3/uL 08/20/2024 7:40 AM EDT [facility] MPV 10.9 7.5 - 12.5 fL 08/20/2024 7:40 AM EDT [facility] Neutrophil % 65.4 % 08/20/2024 7:40 AM EDT [facility] Immature Grans % 0.5 0.0 - 0.9 % 08/20/2024 7:40 AM EDT [facility] Lymphocyte % 20.8 % 08/20/2024 7:40 AM EDT [facility] Monocyte % 10.2 % 08/20/2024 7:40 AM EDT [facility] Eosinophil % 2.4 % 08/20/2024 7:40 AM EDT [facility] Basophil % 0.7 % 08/20/2024 7:40 AM EDT [facility] Neutrophil # 4.02 1.50 - 7.80 10*3/uL 08/20/2024 7:40 AM EDT [facility] Immature Grans # 0.03 <=0.03 10*3/uL 08/20/2024 7:40 AM EDT [facility] Lymphocyte # 1.30 0.85 - 3.90 10*3/uL 08/20/2024 7:40 AM EDT [facility] Monocyte # 0.60 0.20 - 0.95 10*3/uL 08/20/2024 7:40 AM EDT [facility] Eosinophil # 0.20 0.02 - 0.50 10*3/uL 08/20/2024 7:40 AM EDT [email or web address] Basophil # <0.03 0.00 - 0.20 10*3/uL 08/20/2024 7:40 AM EDT [facility] nRBC % 0.0 /100 WBCs 08/20/2024 7:40 AM EDT [facility] nRBC # <0.01 <0.01 10*3/uL 08/20/2024 7:40 AM EDT [email or web address] Blood Structure of peripheral vein / Unknown Venipuncture / Unknown 08/20/2024 6:44 AM EDT 08/20/2024 7:26 AM EDT us Jared Bell MD PhD LAB BLOOD ORDERABLES Final Resu lt [facility] [address] [place] [address], * (ABNORMAL) Basic Metabolic Panel (08/20/2024 6:44 AM EDT) NA 144 135 - 145 mmol/L 08/20/2024 8:21 AM EDT [facility] K 4.7 3.5 - 5.3 mmol/L 08/20/2024 8:21 AM EDT [facility] Cl 111(H) 98 - 107 mmol/L 08/20/2024 8:21 AM EDT [facility] CO2 23 22 - 32 mmol/L 08/20/2024 8:21 AM EDT [facility] BUN 42(H) 7 - 23 mg/dL 08/20/2024 8:21 AM EDT [facility] Creatinine 2.36(H) 0.50 - 1.20 mg/dL 08/20/2024 8:21 AM EDT [facility] Glucose 86 65 - 99 mg/dL 08/20/2024 8:21 AM EDT [facility] Calcium 9.1 8.6 - 10.5 mg/dL 08/20/2024 8:21 AM EDT [facility] Anion Gap 10 5 - 15 08/20/2024 8:21 AM EDT [facility] eGFR 22(L) >=60 mL/min/1 .73m2 08/20/2024 8:21 AM EDT [facility] Comment:The estimated glomer ular [...] PhD LAB BLOOD ORDERABLES Final Resu lt [facility] [address] [place] [address], * (ABNORMAL) PTH, Intact and Calcium (08/12/2024 6:51 AM EDT) Parathyroid Hormone, Intact 203(H) 16 - 77 pg/mL 2024 4:01 AM EDT [email or web address] Comment: Interpretive Guide ?Intact PTH ? Calcium ? ------- Normal Parathyroid ?Normal ? Normal Hypoparathyroidism ?Low or Low Normal ?Low Hyperparathyroidism ?? Primary ?Normal or High ? High ?? Secondary ?High ? Normal or Low ?? Tertiary ? High ? High Non-Parathyroid ?? Hypercalcemia ?Low or Low Normal ?High Calcium 8.2(L) 8.6 - 10.4 mg/dL 2024 4:01 AM EDT [email or web address] Blood Structure of peripheral vein / Unknown Venipuncture / Unknown 08/12/2024 6:51 AM EDT 08/12/2024 7:38 AM EDT Narrative [facility] - 2024 4:01 AM EDT [facility] Received Date: Brigitte Duke MD LAB BLOOD ORDERABLES Final Resul t [facility] [address], [place] [address], [facility] [address], [place] [address], * Phosphorus (08/12/2024 6:51 AM EDT) Phosphorus 3.7 2.5 - 4.5 mg/dL 08/12/2024 9:17 AM EDT [facility] Blood Structure of peripheral vein / Unknown Venipuncture / Unknown 08/12/2024 6:51 AM EDT 08/12/2024 7:38 AM EDT Brigitte Duke MD LAB BLOOD ORDERABLES Final Resul t [facility] [address] [place] [address], [place] * Hepatitis Panel, Acute (08/09/2024 10:04 AM EDT) Hepatitis A IgM NON-REACT TRIHN NON-REACT TRINH 08/09/2024 8:26 PM EDT [facility] Hepatitis B Surface Antigen NON-REACT TRINH NON-REACT TRINH 08/09/2024 8:26 PM EDT [facility] Hepatitis B Core Antibody NON-REACT TRINH NON-REACT TRINH 08/09/2024 8:26 PM EDT [facility] Hepatitis C Antibody NON-REACT TRINH NON-REACT TRINH 08/09/2024 8:26 PM EDT [facility] Comment: HCV antibody was non-reactive. There is no laboratory evidence of HCV infection. In most cases, no further action is required. However, if recent HCV exposure is suspected, a test for HCV RNA (test code 27278) is suggested. For additional information please refer to http://[employer].Feedo/faq/FHJ76h5 (This link is being provided for informational/ educational purposes only.) For additional information, please refer to [email or web address]/[email or web address] (This link is being provided for informational/ educational purposes only.) Blood Structure of peripheral vein / Unknown Venipuncture / Unknown 08/09/2024 10:04 AM EDT 08/09/2024 10:12 AM EDT Narrative [facility] - 08/09/2024 8:26 PM EDT [facility] Received Date: April Ann MD LAB BLOOD ORDERABLES Final Resul t [facility] [address], [place] [address], [employer] [address], [place] [address], [place] [phone] from Last 3 Months or Most Recently Relevant to Health Maintenance Insurance [facility] FEDERAL MEDICARE Advance Directives Documents on File Type Date Recorded 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
--- OUTSIDE RECORDS SUMMARY | 2024-11-24 15:57 | XMS_ITS ---
Author Organization [facility] Address Unknown Allergies, Adverse Reactions, Alerts Substance Reaction Status Noted Date Resolved Date Codeine active 01/17/2023 Problems Problem Status Start Date End Date OTHER LACK OF COORDINATION ( Primary) (R27.8 - ICD-10-CM) ACTIVE 07/27/2024 ACUTE KIDNEY FAILURE, UNSPECIFIED (N17.9 - ICD-10-CM) ACTIVE 07/27/2024 MULTIPLE SCLEROSIS (G35 - ICD-10-CM) ACTIVE 12/26 PROTEUS (MIRABILIS) (ROCÍO I) THE CAUSE OF DISEASES CLASSIFIED ELSEWHERE (B96.4 - ICD-10-CM) RESOLVED 01/18/2023 07/27/2024 BACTEREMIA (R78.81 - ICD-10-CM) RESOLVED 07/27/2024 MAJOR DEPRESSIVE DISORDER, S MICHAEL EPISODE, UNSPECIFIED (F32.9 - ICD-10-CM) ACTIVE 01/18/2023 CHRONIC OBSTRUCTIVE PULMONAR Y DISEASE, UNSPECIFIED (J44.9 - ICD-10-CM) ACTIVE 01/18/2023 CHRONIC KIDNEY DISEASE, STAG E 3 UNSPECIFIED (N18.30 - ICD-10-CM) ACTIVE 07/27/2024 HEART FAILURE, UNSPECIFIED (I50.9 - ICD-10-CM) RESOLVE D 01/18/2023 07/27/2024 CARDIOMYOPATHY, UNSPECIFIED (I42.9 - ICD-10-CM) ACTIVE 01/18/2023 PAROXYSMAL ATRIAL FIBRILLATION (I48.0 - ICD-10-CM) ACT TRINH 01/18/2023 PERIPHERAL VASCULAR DISEASE, UNSPECIFIED (I73.9 - ICD-10-CM) ACTIVE 01/18/2023 HISTORY OF FALLING (Z91.81 - ICD-10-CM) ACTIVE 0 01/18/2023 UNSPECIFIED SYSTOLIC (CONGES TIVE) HEART FAILURE (I50.20 - ICD-10-CM) ACTIVE 07/27/2024 UNSPECIFIED PROTEIN-CALORIE MALNUTRITION (E46 - ICD-10-CM) RESOLVED 01/18/2023 07/27/2024 UNSPECIFIED PROTEIN-CALORIE MALNUTRITION (E46 - ICD-10-CM) ACTIVE 07/27/2024 SEPSIS, UNSPECIFIED ORGANISM (A41.9 - ICD-10-CM) ACTIV E 07/27/2024 ESSENTIAL (PRIMARY) HYPERTENSION (I10 - ICD-10-CM) ACT TRINH 01/20/2023 HYPOTHYROIDISM, UNSPECIFIED (E03.9 - ICD-10-CM) ACTIVE 01/18/2023 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) ACTIVE 01/19/20 23 Encounters Encounter Performer Performer Role Encounter Diagnoses Location Date Discharge - Discharged to home or self care - Home - [facility] 3 07:51 pm EDT - 3 12:00 pm EDT Discharge - Discharged to home or self care - Home - [facility] 4 07:18 pm EDT - 4 01:53 pm EDT Immunizations Vaccine Date TB 2 Step Mantoux Skin Test TB 2 Step Mantoux Skin Test 07/31/2024 0 4:50 am EDT SARS-COV-2 (COVID-19) 01/08/2021 12:00 a m EDT SARS-COV-2 (COVID-19) 12/16/2020 12:00 a m EST [employer] Covid-19 Bi-valent Solut ion 07/15/2022 12:00 am EDT Social History
--- OUTSIDE RECORDS SUMMARY | 2024-11-24 15:57 | XMS_ITS | Clinical Summary ---
Author Organization Unknown Care Team Providers Care Supervisor Treating And Pumping Name Role Phone DODIE OTHER, LUC Unavailable Unavailab eamon BRASHER RN, LOIS Unavailable Unavailable SOBIA ICE SKATING TEACHER, ZANDER Unavailable Unavailabl e SCARLET PT, ELSA Unavailable Unavailable CONDINO JUNITO/FLORES, RUSLAN Unavailable Unav ailable TJK OT, MAHNAZ Unavailable Unavailabl e RUTH STEEL LAYER, JOSELYN Unavailable Unavailable Payers Payer Name Policy Type Policy Number Effective Date Expira tion Date MEDICARE.NGS.PDGM [id number] Problems Condition Name Condition Details Condition Category [...] 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 2023-10 00:00: 00 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) USE OF ANTICOAGULAN TS Active 2023-10 00:00: 00 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) USE OF ANTITHROMBOT ICS/ANTIPLAT ELETS Active [...] 11-07 00:00: 00 04-08 23:59 :00 No [id number] HYPERLIPIDE DANNY 1 tablet DAILY 1 tablet DAILY (route: oral) Med Classific ation: Cardiovas cular Therapy Agents oxybutynin chloride 5 mg tablet 2022-10 00:00: 00 11-07 00:00 :00 No [id number] INCONTINENC E 1 tablet DAILY 1 tablet DAILY (route: oral) Med Classific ation: Genitouri nary Therapy metoprolol succinate ER 50 mg tablet,exte nded release 24 hr 11-07 00:00: 00 04-08 23:59 :00 No [id number] HTN 1 tablet DAILY 1 tablet DAILY (route: oral) Med Classific ation: Cardiovas cular Therapy Agents clopidogrel 75 mg tablet 11-07 00:00: 00 04-08 23:59 :00 No [id number] AFIB 1 tablet DAILY 1 tablet DAILY (route: oral) Med Classific ation: Hematolog ical Agents Avonex 30 mcg/0.5 mL intramuscul ar pen kit 2022-10 00:00: 00 11-07 00:00 :00 No [id number] MS 1 kit WEEKLY 1 kit WEEKLY (route: intramuscu lar) Med Classific ation: Multiple Sclerosis Agents Eliquis 5 mg tablet 2022-10 00:00: 00 04-08 23:59 :00 No [id number] AFIB 1 tablet 2 TIMES DAILY 1 tablet 2 TIMES DAILY (route: oral) Med Classific ation: Hematolog ical Agents furosemide 40 mg tablet 11-07 00:00: 00 04-08 23:59 :00 No [id number] HF 1 tablet DAILY 1 tablet DAILY (route: oral) Med Classific ation: Cardiovas cular Therapy Agents levothyroxi ne 50 mcg tablet 11-07 00:00: 00 04-08 23:59 :00 No [id number] HYPOTHYROID 1 tablet DAILY 1 tablet DAILY (route: oral) Med Classific ation: Endocrine Paxil 40 mg tablet 2022-10 00:00: 00 11-07 00:00 :00 No [id number] DEPRESSION 1 tablet DAILY 1 tablet DAILY (route: oral) Med Classific ation: Central Nervous System Agents amiodarone 200 mg tablet 11-07 00:00: 00 04-08 23:59 :00 No [id number] AFIB 1 tablet DAILY 1 tablet DAILY (route: oral) Med Classific ation: Cardiovas cular Therapy Agents metoprolol succinate ER 50 mg tablet,exte nded release 24 hr 2022-10 00:00: 00 11-07 00:00 :00 No [id number] HTN Per instruc tions DAILY Per instructio ns DAILY (route: oral) Med Classific ation: Cardiovas cular Therapy Agents Senna Lax 8.6 mg tablet 2022-10 00:00: 00 11-07 00:00 :00 No [id number] CONSTIPATIO N Per instruc tions DAILY Per instructio ns DAILY (route: oral) Med Classific ation: Gastroint estinal Therapy Agents tamsulosin 0.4 mg capsule 2022-10 00:00: 00 11-07 00:00 :00 No [id number] URINARY RETENSION Per instruc tions DAILY Per instructio ns DAILY (route: oral) Med Classific ation: Genitouri nary Therapy acetaminoph en 325 mg tablet 11-07 00:00: 00 04-08 23:59 :00 No [id number] PAIN 2 tablet EVERY 4 HOURS 2 tablet EVERY 4 HOURS (route: oral) Med Classific ation: Analgesic , Anti-infl ammatory or Antipyret ic AirDuo RespiClick 113 mcg-14 mcg/actuati on breath activated 11-07 00:00: 00 04-08 23:59 :00 No [id number] COPD 1 puff 2 TIMES DAILY 1 puff 2 TIMES DAILY (route: inhalation ) Med Classific ation: Respirato ry Therapy Agents albuterol sulfate HFA 90 mcg/actuati on aerosol inhaler 11-07 00:00: 00 04-08 23:59 :00 No [id number] SOB OR WHEEZING 2 puff NEEDED 2 puff NEEDED (route: inhalation ) Med Classific ation: Respirato ry Therapy Agents Avonex 30 mcg/0.5 mL intramuscul ar syringe kit 11-07 00:00: 00 04-08 23:59 :00 No [id number] MS 30 mcg WEEKLY 30 mcg WEEKLY (route: intramuscu lar) Med Classific ation: Multiple Sclerosis Agents ferrous sulfate 325 mg (65 mg iron) tablet 11-07 00:00: 00 04-08 23:59 :00 No [id number] IRON SUPPLEMENT 1 tablet DAILY 1 tablet DAILY (route: oral) Med Classific ation: Electroly te Balance-N utritiona l Products magnesium 400 mg (as magnesium oxide) tablet 11-07 00:00: 00 04-08 23:59 :00 No [id number] SUPPLEMENT 1 tablet 2 TIMES DAILY 1 tablet 2 TIMES DAILY (route: oral) Med Classific ation: Electroly te Balance-N utritiona l Products melatonin 5 mg tablet 11-07 00:00: 00 04-08 23:59 :00 No [id number] SLEEP AID 2 tablet BEDTIME 2 tablet BEDTIME (route: oral) Med Classific ation: Central Nervous System Agents omeprazole 20 mg tablet,osmar yed release 11-07 00:00: 00 04-08 23:59 :00 No [id number] GERD 1 tablet DAILY 1 tablet DAILY (route: oral) Med Classific ation: Gastroint estinal Therapy Agents paroxetine 40 mg tablet 11-07 00:00: 00 04-08 23:59 :00 No [id number] DEPRESSION AND ANXIETY 1 tablet BEDTIME 1 tablet BEDTIME (route: oral) Med Classific ation: Central Nervous System Agents Vitamin B-12 1,000 mcg tablet 11-07 00:00: 00 04-08 23:59 :00 No [id number] VITAMIN SUPPLEMENT 1 tablet DAILY 1 tablet DAILY (route: oral) Med Classific ation: Electroly te Balance-N utritiona l Products Vitamin D3 25 mcg (1,000 unit) capsule 11-07 00:00: 00 04-08 23:59 :00 No [id number] VITAMIN SUPPLEMENT 1 capsule DAILY 1 capsule DAILY (route: oral) Med Classific ation: Electroly te Balance-N utritiona l Products potassium chloride ER 20 mEq tablet,exte nded release 03-28 00:00: 00 05-13 00:00 :00 No [id number] Per instruc tions Per instructio ns (route: oral) Med Classific ation: Electroly te Balance-N utritiona l Products albuterol sulfate HFA 90 mcg/actuati on aerosol inhaler 05-13 00:00: 00 08-04 23:59 :00 No [id number] WHEEZE 2 puff EVERY 4 HOURS 2 puff EVERY 4 HOURS (route: inhalation ) Med Classific ation: Respirato ry Therapy Agents amiodarone 200 mg tablet 05-13 00:00: 00 08-04 23:59 :00 No [id number] HTN 1 tablet DAILY 1 tablet DAILY (route: oral) Med Classific ation: Cardiovas cular Therapy Agents atorvastati n 80 mg tablet 05-13 00:00: 00 08-04 23:59 :00 No [id number] CHOLESTEROL 1 tablet DAILY 1 tablet DAILY (route: oral) Med Classific ation: Cardiovas cular Therapy Agents cholecalcif hitesh (vitamin D3) 1,250 mcg (50,000 unit) tablet 05-13 00:00: 00 08-04 23:59 :00 No [id number] SUPPLEMENT 1 tablet DAILY 1 tablet DAILY (route: oral) Med Classific ation: Electroly te Balance-N utritiona l Products Eliquis 5 mg tablet 05-13 00:00: 00 08-04 23:59 :00 No [id number] CLOT 1 tablet 2 TIMES DAILY 1 tablet 2 TIMES DAILY (route: oral) Med Classific ation: Hematolog ical Agents fluticasone 113 mcg-salmete rol 14 mcg/actuati on breath activated powdr 05-13 00:00: 00 08-04 23:59 :00 No [id number] COPD 1 puff 2 TIMES DAILY 1 puff 2 TIMES DAILY (route: inhalation ) Med Classific ation: Respirato ry Therapy Agents furosemide 40 mg tablet 05-13 00:00: 00 08-04 23:59 :00 No [id number] EDEMA 1 tablet DAILY 1 tablet DAILY (route: oral) Med Classific ation: Cardiovas cular Therapy Agents lactulose 10 gram/15 mL (15 mL) oral solution 05-13 00:00: 00 08-04 23:59 :00 No [id number] CONSTIPATIO N 15 mL DAILY 15 mL DAILY (route: oral) Med Classific ation: Gastroint estinal Therapy Agents levothyroxi ne 50 mcg capsule 05-13 00:00: 00 08-04 23:59 :00 No [id number] THYROID 1 capsule DAILY 1 capsule DAILY (route: oral) Med Classific ation: Endocrine melatonin 10 mg tablet 05-13 00:00: 00 08-04 23:59 :00 No [id number] MELATONIN 1 tablet DAILY 1 tablet DAILY (route: oral) Med Classific ation: Central Nervous System Agents metoprolol succinate ER 25 mg tablet,exte nded release 24 hr 05-13 00:00: 00 08-04 23:59 :00 No [id number] HTN 1 tablet DAILY 1 tablet DAILY (route: oral) Med Classific ation: Cardiovas cular Therapy Agents ondansetron 4 mg disintegrat ing tablet 05-13 00:00: 00 08-04 23:59 :00 No [id number] NAUSEA 1 tablet EVERY 8 HOURS 1 tablet EVERY 8 HOURS (route: oral) Med Classific ation: Gastroint estinal Therapy Agents paroxetine 40 mg tablet 05-13 00:00: 00 08-04 23:59 :00 No [id number] MOOD 1 tablet DAILY 1 tablet DAILY (route: oral) Med Classific ation: Central Nervous System Agents Plavix 75 mg tablet 05-13 00:00: 00 08-04 23:59 :00 No [id number] CLOT 1 tablet DAILY 1 tablet DAILY (route: oral) Med Classific ation: Hematolog ical Agents Senna Lax 8.6 mg tablet 05-13 00:00: 00 08-04 23:59 :00 No [id number] CONSTIPATIO N 1 tablet 2 TIMES DAILY 1 tablet 2 TIMES DAILY (route: oral) Med Classific ation: Gastroint estinal Therapy Agents Tylenol Extra Strength 500 mg tablet 05-13 00:00: 00 08-04 23:59 :00 No [id number] PAIN 2 tablet 3 TIMES DAILY 2 tablet 3 TIMES DAILY (route: oral) Med Classific ation: Analgesic , Anti-infl ammatory or Antipyret ic Vitamin B-12 1,000 mcg tablet 05-13 00:00: 00 08-04 23:59 :00 No [id number] SUPPLEMENT 1 tablet DAILY 1 tablet DAILY (route: oral) Med Classific ation: Electroly te Balance-N utritiona l Products nitrofurant oin macrocrysta l 100 mg capsule 05-21 00:00: 00 06-04 23:59 :00 No [id number] UTI 1 capsule DAILY 1 capsule DAILY (route: oral) Med Classific ation: Genitouri nary Therapy terazosin 1 mg capsule 05-21 00:00: 00 08-04 23:59 :00 No [id number] BLADDER SPASMS 1 capsule BEDTIME 1 capsule BEDTIME (route: oral) Med Classific ation: Cardiovas cular Therapy Agents ciprofloxac in 250 mg tablet 05-25 00:00: 00 05-31 23:59 :00 No [id number] INFECTION 1 tablet 2 TIMES DAILY 1 tablet 2 TIMES DAILY (route: oral) Med Classific ation: Anti-Infe ctive Agents metoprolol succinate ER 25 mg tablet,exte nded release 24 hr 2023-10 00:00: 00 09-02 14:41 :11 No [id number] HTN 0.5 tablet DAILY 0.5 tablet DAILY (route: oral) Med Classific ation: Cardiovas cular Therapy Agents Eliquis 5 mg tablet 07-09 00:00: 00 09-02 14:41 :11 No [id number] AFIB 1 tablet 2 TIMES DAILY 1 tablet 2 TIMES DAILY (route: oral) Med Classific ation: Hematolog ical Agents levothyroxi ne 50 mcg tablet 2023-10 00:00: 00 Yes [id number] THYROID 1 tablet DAILY 1 tablet DAILY (route: oral) Med Classific ation: Endocrine paroxetine 40 mg tablet 2023-10 00:00: 00 Yes [id number] DEPRESSION 1 tablet DAILY 1 tablet DAILY (route: oral) Med Classific ation: Central Nervous System Agents acetaminoph en 325 mg tablet 2023-10 00:00: 00 Yes [id number] PAIN 2 tablet EVERY 4 HOURS 2 tablet EVERY 4 HOURS (route: oral) Med Classific ation: Analgesic , Anti-infl ammatory or Antipyret ic amiodarone 200 mg tablet 2023-10 00:00: 00 Yes [id number] HTN 1 tablet DAILY 1 tablet DAILY (route: oral) Med Classific ation: Cardiovas cular Therapy Agents ascorbic acid (vitamin C) 500 mg tablet 2023-10 00:00: 00 Yes [id number] SUPPLEMENT 1 tablet DAILY 1 tablet DAILY (route: oral) Med Classific ation: Electroly te Balance-N utritiona l Products atorvastati n 80 mg tablet 2023-10 00:00: 00 Yes [id number] HLD 1 tablet DAILY 1 tablet DAILY (route: oral) Med Classific ation: Cardiovas cular Therapy Agents cholecalcif hitesh (vitamin D3) 25 mcg (1,000 unit) tablet 2023-10 00:00: 00 Yes [id number] SUPPLEMENT 1 tablet DAILY 1 tablet DAILY (route: oral) Med Classific ation: Electroly te Balance-N utritiona l Products clopidogrel 75 mg tablet 2023-10 00:00: 00 Yes [id number] BLOOD CLOT PREVENTION 1 tablet DAILY 1 tablet DAILY (route: oral) Med Classific ation: Hematolog ical Agents Colace 100 mg capsule 2023-10 00:00: 00 Yes [id number] STOOL SOFTENER 1 capsule 2 TIMES DAILY 1 capsule 2 TIMES DAILY (route: oral) Med Classific ation: Gastroint estinal Therapy Agents fluticasone 100 mcg-salmete rol 50 mcg/dose blistr powdr for inhalation 2023-10 00:00: 00 Yes [id number] COPD 1 inhalat ion DAILY 1 inhalation DAILY (route: inhalation ) Med Classific ation: Respirato ry Therapy Agents furosemide 40 mg tablet 2023-10 00:00: 00 Yes [id number] EDEMA 1 tablet DAILY 1 tablet DAILY (route: oral) Med Classific ation: Cardiovas cular Therapy Agents melatonin 3 mg tablet 2023-10 00:00: 00 Yes [id number] SLEEP 1 tablet DAILY 1 tablet DAILY (route: oral) Med Classific ation: Central Nervous System Agents pantoprazol e 40 mg tablet,osmar yed release 2023-10 00:00: 00 Yes [id number] GERD 1 tablet DAILY 1 tablet DAILY (route: oral) Med Classific ation: Gastroint estinal Therapy Agents tamsulosin 0.4 mg capsule 2023-10 00:00: 00 Yes [id number] URINE RETENTION 1 capsule DAILY 1 capsule DAILY (route: oral) Med Classific ation: Genitouri nary Therapy terazosin 1 mg capsule 2023-10 00:00: 00 Yes [id number] HTN 1 capsule DAILY 1 capsule DAILY [...] INDICATED ] Future Scheduled Test MEDICATION MANAGEMENT; RN/ICE SKATING TEACHER/INSULATION SPRAYER TO REVIEW MEDICATIONS FOR INTERACTIONS, EFFECTIVENESS OF DRUG THERAPY, AND SIGNS/SYMPTOMS OF ADVERSE REACTIONS. MAY INSTRUCT AND REINFORCE MEDICATION TEACHING RELATED TO THE USE OF MEDICATIONS, DOSAGE, FREQUENCY, PURPOSE, SIDE EFFECTS, AND TO REPORT COMPLICATIONS. [code = MEDICATION MANAGEMENT; RN/ICE SKATING TEACHER/INSULATION SPRAYER TO REVIEW MEDICATIONS FOR INTERACTIONS, EFFECTIVENESS OF DRUG THERAPY, AND SIGNS/SYMPTOMS OF ADVERSE REACTIONS. MAY INSTRUCT AND REINFORCE MEDICATION TEACHING RELATED TO THE USE OF MEDICATIONS, DOSAGE, FREQUENCY, PURPOSE, SIDE EFFECTS, AND TO REPORT COMPLICATIONS.] Future Scheduled Test RESPIRATOR Y SYSTEM MANAGEMENT; RN TO ASSESS AND TEACH, ICE SKATING TEACHER/INSULATION SPRAYER TO OBSERVE AND TEACH RELATED TO ALTERED RESPIRATORY STATUS TO MINIMIZE COMPLICATIONS AND REDUCE HOSPITALIZATION. [code = RESPIRATORY SYSTEM MANAGEMENT; RN TO ASSESS AND TEACH, ICE SKATING TEACHER/INSULATION SPRAYER TO OBSERVE AND TEACH RELATED TO ALTERED RESPIRATORY STATUS TO MINIMIZE COMPLICATIONS AND REDUCE HOSPITALIZATION.] Future Scheduled Test COPD MANAG EMENT; RN TO ASSESS AND TEACH, ICE SKATING TEACHER/INSULATION SPRAYER TO OBSERVE AND TEACH SIGNS/SYMPTOMS OF COPD EXACERBATION AND PROVIDE EARLY INTERVENTIONS TO MINIMIZE RISK OF HOSPITALIZATION. RN/ICE SKATING TEACHER/INSULATION SPRAYER TO INSTRUCT ON SELF-CARE MANAGEMENT INCLUDING BREATHING TECHNIQUES, AIRWAY CLEARANCE, AND PROPER USE OF COPD MEDICATIONS. RN TO ASSESS AND TEACH, ICE SKATING TEACHER/INSULATION SPRAYER TO OBSERVE AND TEACH PATIENT/CAREGIVER ABILITY TO MONITOR AND RECORD VITAL SIGNS INCLUDING PULSE OXIMETRY AND BLOOD PRESSURE. PULSE OXIMETER AND BP MONITOR TO BE PROVIDED IF NEEDED [code = COPD MANAGEMENT; RN TO ASSESS AND TEACH, ICE SKATING TEACHER/INSULATION SPRAYER TO OBSERVE AND TEACH SIGNS/SYMPTOMS OF COPD EXACERBATION AND PROVIDE EARLY INTERVENTIONS TO MINIMIZE RISK OF HOSPITALIZATION. RN/ICE SKATING TEACHER/INSULATION SPRAYER TO INSTRUCT ON SELF-CARE MANAGEMENT INCLUDING BREATHING TECHNIQUES, AIRWAY CLEARANCE, AND PROPER USE OF COPD MEDICATIONS. RN TO ASSESS AND TEACH, ICE SKATING TEACHER/INSULATION SPRAYER TO OBSERVE AND TEACH PATIENT/CAREGIVER ABILITY TO MONITOR AND RECORD VITAL SIGNS INCLUDING PULSE OXIMETRY AND BLOOD PRESSURE. PULSE OXIMETER AND BP MONITOR TO BE PROVIDED IF NEEDED] Future Scheduled Test FALL REDUC TION MANAGEMENT; RN TO ASSESS AND TEACH, ICE SKATING TEACHER/INSULATION SPRAYER TO OBSERVE AND TEACH ON EDUCATION AND INTERVENTION TO IDENTIFY FALL RISK FACTORS SUCH MEDICATIONS THAT MAY CAUSE DIZZINESS, CHRONIC DISEASES, PSYCHOLOGICAL FACTORS, AND EMPOWER/EDUCATE PATIENT/CAREGIVER TO MINIMIZE FALL RISK. [code = FALL REDUCTION MANAGEMENT; RN TO ASSESS AND TEACH, ICE SKATING TEACHER/INSULATION SPRAYER TO OBSERVE AND TEACH ON EDUCATION AND INTERVENTION TO IDENTIFY FALL RISK FACTORS SUCH MEDICATIONS THAT MAY CAUSE DIZZINESS, CHRONIC DISEASES, PSYCHOLOGICAL FACTORS, AND EMPOWER/EDUCATE PATIENT/CAREGIVER TO MINIMIZE FALL RISK.] Future Scheduled Test GENITOURIN KRZYSZTOF MANAGEMENT; RN TO ASSESS AND TEACH, ICE SKATING TEACHER/INSULATION SPRAYER TO OBSERVE AND TEACH RELATED TO ALTERED GENITOURINARY STATUS TO MINIMIZE COMPLICATIONS AND REDUCE HOSPITALIZATION. [code = GENITOURINARY MANAGEMENT; RN TO ASSESS AND TEACH, ICE SKATING TEACHER/INSULATION SPRAYER TO OBSERVE AND TEACH RELATED TO ALTERED GENITOURINARY STATUS TO MINIMIZE COMPLICATIONS AND REDUCE HOSPITALIZATION.] Future Scheduled Test INDWELLING URINARY CATHETER MANAGEMENT; RN/ICE SKATING TEACHER/INSULATION SPRAYER TO INSTRUCT PATIENT / CAREGIVER ON INDWELLING URINARY CATHETER MANAGEMENT INCLUDING CARE OF CATHETER, SIGN AND SYMPTOMS OF COMPLICATIONS, PERINEAL CARE, TUBE AND BAG PLACEMENT, PREVENTION OF INFECTION AND SKIN BREAKDOWN. [code = INDWELLING URINARY CATHETER MANAGEMENT; RN/ICE SKATING TEACHER/INSULATION SPRAYER TO INSTRUCT PATIENT / CAREGIVER ON INDWELLING [...] DR LUO. RN TO OBSERVE AND ASSESS, ICE SKATING TEACHER/INSULATION SPRAYER TO OBSERVE FOR RISK FOR FALLS AND INSTRUCT IN FALL PREVENTION, HOME SAFETY, MEDICATION MANAGEMENT, INFECTION PREVENTION, AND NUTRITION MANAGEMENT. RN/ICE SKATING TEACHER/INSULATION SPRAYER NURSE MAY PERFORM O2 SATURATION LEVEL ON ADMISSION AND PRN FOR SOB FOR RN TO ASSESS/ICE SKATING TEACHER TO OBSERVE PATIENT, WITH NOTIFICATION TO THE PHYSICIAN IF SATURATION IS 90% IN THE ABSENCE OF MORE SPECIFIC PARAMETERS FROM THE PHYSICIAN. AGENCY MAY PERFORM A RESUMPTION OF CARE VISIT FOLLOWING ANY HOSPITAL ADMISSION. RN/ICE SKATING TEACHER/INSULATION SPRAYER TO MONITOR CO-MORBID CONDITIONS LISTED ON THE PLAN OF CARE AND ANY NEW CONDITIONS THAT PRESENT THEMSELVES DURING THIS EPISODE TO IDENTIFY CHANGES AND INTERVENE TO MINIMIZE COMPLICATIONS. [code = RN TO OBSERVE, ASSESS, EVALUATE, AND DEVELOP AN INDIVIDUALIZED PLAN OF CARE. AGENCY MAY ACCEPT ORDERS FROM CONSULTING PHYSICIANS DR TERRY GUADARRAMA, DR LUO. RN TO OBSERVE AND ASSESS, ICE SKATING TEACHER/INSULATION SPRAYER TO OBSERVE FOR RISK FOR FALLS AND INSTRUCT IN FALL PREVENTION, HOME SAFETY, MEDICATION MANAGEMENT, INFECTION PREVENTION, AND NUTRITION MANAGEMENT. RN/ICE SKATING TEACHER/INSULATION SPRAYER NURSE MAY PERFORM O2 SATURATION LEVEL ON ADMISSION AND PRN FOR SOB FOR RN TO ASSESS/ICE SKATING TEACHER TO OBSERVE PATIENT, WITH NOTIFICATION TO THE PHYSICIAN IF SATURATION IS 90% IN THE ABSENCE OF MORE SPECIFIC PARAMETERS FROM THE PHYSICIAN. AGENCY MAY PERFORM A RESUMPTION OF CARE VISIT FOLLOWING ANY HOSPITAL ADMISSION. RN/ICE SKATING TEACHER/INSULATION SPRAYER TO MONITOR CO-MORBID CONDITIONS LISTED ON THE PLAN OF CARE AND ANY NEW CONDITIONS THAT PRESENT THEMSELVES DURING THIS EPISODE TO IDENTIFY CHANGES AND INTERVENE TO MINIMIZE COMPLICATIONS.] Future Scheduled Test PAIN MANAG EMENT; RN TO ASSESS AND TEACH, INSULATION SPRAYER/ICE SKATING TEACHER TO OBSERVE AND TEACH AND PROVIDE EDUCATION ON PAIN MANAGEMENT TECHNIQUES. [code = PAIN MANAGEMENT; RN TO ASSESS AND TEACH, INSULATION SPRAYER/ICE SKATING TEACHER TO OBSERVE AND TEACH AND PROVIDE EDUCATION ON PAIN MANAGEMENT TECHNIQUES.] Future Scheduled Test RN/ICE SKATING TEACHER/INSULATION SPRAYER TO PERFORM/TEACH PATIENT/CAREGIVER WOUND CARE TO SKIN TEAR LEFT ARM. MONITOR STERI STRIPS FOR SIGNS OR SYMPTOMS OF INFECTION. COVER WITH BORDER GAUZE NEEDED [code = RN/ICE SKATING TEACHER/INSULATION SPRAYER TO PERFORM/TEACH PATIENT/CAREGIVER WOUND CARE TO SKIN TEAR LEFT ARM. MONITOR STERI STRIPS FOR SIGNS OR SYMPTOMS OF INFECTION. COVER WITH BORDER GAUZE NEEDED] Future Scheduled Test PRN VISITS ; NUMBER OF RN/ICE SKATING TEACHER/INSULATION SPRAYER VISITS: RN/ICE SKATING TEACHER/INSULATION SPRAYER TO PERFORM: GENITOURINARY ASSESSMENT FOR THE FOLLOWING REASONS: GENITOURINARY COMPLICATIONS [code = PRN VISITS; NUMBER OF RN/ICE SKATING TEACHER/INSULATION SPRAYER VISITS: RN/ICE SKATING TEACHER/INSULATION SPRAYER TO PERFORM: GENITOURINARY ASSESSMENT FOR THE FOLLOWING REASONS: GENITOURINARY COMPLICATIONS ] Future Scheduled Test RISK FOR H OSPITALIZATION; RN TO ASSESS/TEACH, INSULATION SPRAYER/ICE SKATING TEACHER TO OBSERVE/TEACH PATIENT/CAREGIVER ON RISK FOR HOSPITALIZATION/EMERGENCY ROOM VISITS, TEACH SIGNS AND SYMPTOMS THAT PUT PATIENT AT RISK, WHEN TO NOTIFY NURSE/PHYSICIAN OF COMPLICATIONS/DECLINE, AND WHEN TO CALL 911. [code = RISK FOR HOSPITALIZATION; RN TO ASSESS/TEACH, INSULATION SPRAYER/ICE SKATING TEACHER TO OBSERVE/TEACH PATIENT/CAREGIVER ON RISK FOR HOSPITALIZATION/EMERGENCY ROOM VISITS, TEACH SIGNS AND SYMPTOMS THAT PUT PATIENT AT RISK, WHEN TO NOTIFY NURSE/PHYSICIAN OF COMPLICATIONS/DECLINE, AND WHEN TO CALL 911.] Future Scheduled Test CARDIOVASC ULAR SYSTEM; RN TO ASSESS/TEACH, ICE SKATING TEACHER/INSULATION SPRAYER TO OBSERVE/TEACH RELATED TO ALTERED CARDIOVASCULAR STATUS TO MINIMIZE COMPLICATIONS AND REDUCE HOSPITALIZATION. [code = CARDIOVASCULAR SYSTEM; RN TO ASSESS/TEACH, ICE SKATING TEACHER/INSULATION SPRAYER TO OBSERVE/TEACH RELATED TO ALTERED CARDIOVASCULAR STATUS TO MINIMIZE COMPLICATIONS AND REDUCE HOSPITALIZATION.] Future Scheduled Test HYPERTENSI ON MANAGEMENT; RN TO ASSESS AND TEACH, ICE SKATING TEACHER/INSULATION SPRAYER TO OBSERVE AND TEACH WARNING SIGNS AND SYMPTOMS TO AVOID HOSPITALIZATION. [code = HYPERTENSION MANAGEMENT; RN TO ASSESS AND TEACH, ICE SKATING TEACHER/INSULATION SPRAYER TO OBSERVE AND TEACH WARNING SIGNS AND SYMPTOMS TO AVOID HOSPITALIZATION.] Future Scheduled Test ARRHYTHMIA MANAGEMENT; RN TO ASSESS AND TEACH, ICE SKATING TEACHER/INSULATION SPRAYER TO OBSERVE AND TEACH WARNING SIGNS AND SYMPTOMS TO AVOID HOSPITALIZATION. [code = ARRHYTHMIA MANAGEMENT; RN TO ASSESS AND TEACH, ICE SKATING TEACHER/INSULATION SPRAYER TO OBSERVE AND TEACH WARNING SIGNS AND SYMPTOMS TO AVOID HOSPITALIZATION.] Future Scheduled Test AGENCY MAY PERFORM A RESUMPTION OF CARE VISIT FOLLOWING ANY HOSPITAL ADMISSION. OT TO EVALUATE, OBSERVE / ASSESS, AND MONITOR, JUNITO TO OBSERVE AND MONITOR, PROVIDE SKILLED THERAPEUTIC INTERVENTION, ACTIVITY, EDUCATION, AND TRAINING TO ADDRESS; DRESSING (OT/BLACK ASH WORKER) ACTIVITIES OF DAILY LIVING (OT/JUNITO) TOILET TRANSFER (OT/BLACK ASH WORKER) BATH/SHOWER TRANSFER (OT/JUNITO) HOME ACTIVITY / EXERCISE PROGRAM (OT/BLACK ASH WORKER) ENERGY CONSERVATION/ACTIVITY DEMAND (OT/BLACK ASH WORKER) OT/BLACK ASH WORKER TO MONITOR AND EDUCATE ON OXYGEN SATURATION DURING ADLS/IADLS, NOTIFY PHYSICIAN AND/OR THE RN CLINICAL BIOMEDICAL TECHNICIAN FOR PHYSICIAN NOTIFICATION AND IF O2 SATS BELOW 90% AFTER 10 MIN OF REST. OT/BLACK ASH WORKER MAY EDUCATE ON PAIN MANAGEMENT CLINICALLY INDICATED, INCLUDING NON-PHARMACOLOGICAL PAIN REDUCTION TECHNIQUES AND USE OF CRYOTHERAPY OR HEAT UP TO 20 MIN AT A TIME FOR PAIN MANAGEMENT TO GENERAL PAIN OT / JUNIOT TO IDENTIFY FALL RISK FACTORS; EDUCATE THE [...] ACTIVITY, EDUCATION, AND TRAINING TO ADDRESS; DRESSING (OT/BLACK ASH WORKER) ACTIVITIES OF DAILY LIVING (OT/BLACK ASH WORKER) TOILET TRANSFER (OT/JUNITO) BATH/SHOWER TRANSFER (OT/BLACK ASH WORKER) HOME ACTIVITY / EXERCISE PROGRAM (OT/BLACK ASH WORKER) ENERGY CONSERVATION/ACTIVITY DEMAND (OT/JUNITO) OT/BLACK ASH WORKER TO MONITOR AND EDUCATE ON OXYGEN SATURATION DURING ADLS/IADLS, NOTIFY PHYSICIAN AND/OR THE RN CLINICAL BIOMEDICAL TECHNICIAN FOR PHYSICIAN NOTIFICATION AND IF O2 SATS BELOW 90% AFTER 10 MIN OF REST. OT/BLACK ASH WORKER MAY EDUCATE ON PAIN MANAGEMENT CLINICALLY INDICATED, INCLUDING NON-PHARMACOLOGICAL PAIN REDUCTION TECHNIQUES AND USE OF CRYOTHERAPY OR HEAT UP TO 20 MIN AT A TIME FOR PAIN MANAGEMENT TO GENERAL PAIN OT / BLACK ASH WORKER TO IDENTIFY FALL RISK FACTORS; EDUCATE THE PATIENT/CAREGIVER ON WAYS TO REDUCE FALL RISK FACTORS AND ESTABLISH HOME EXERCISE PROGRAM TO MINIMIZE FALL RISK. MAY TEACH THE PATIENT FLOOR RECOVERY WHEN CLINICALLY APPROPRIATE.] Future Scheduled Test AGENCY MAY PERFORM A RESUMPTION OF CARE VISIT FOLLOWING ANY HOSPITAL ADMISSION. PT TO EVALUATE, OBSERVE / ASSESS, AND MONITOR, STEEL LAYER TO OBSERVE AND MONITOR, PROVIDE SKILLED THERAPEUTIC INTERVENTION, ACTIVITY, EDUCATION, AND TRAINING TO ADDRESS; PT/STEEL LAYER TO PROVIDE GAIT TRAINING FOR IMPROVED MOBILITY AND /OR TO NORMALIZE GAIT PATTERN NEUROMUSCULAR RE-EDUCATION / BALANCE / POSTURAL CONTROL (PT) THERAPEUTIC EXERCISES AND ESTABLISHING A HOME EXERCISE PROGRAM (PT/STEEL LAYER) PT/STEEL LAYER TO PROVIDE STAIR TRAINING SIT TO/FROM STAND TRANSFERS (PT/STEEL LAYER) PT / STEEL LAYER TO MONITOR AND EDUCATE ON OXYGEN SATURATION DURING ADLS/IADLS, NOTIFY PHYSICIAN AND/OR THE RN CLINICAL BIOMEDICAL TECHNICIAN FOR PHYSICIAN NOTIFICATION AND IF O2 SATS BELOW PHYSICIAN ORDERED PARAMETERS AFTER 10 MIN OF REST PT / STEEL LAYER MAY EDUCATE ON PAIN MANAGEMENT CLINICALLY INDICATED, INCLUDING NON-PHARMACOLOGICAL PAIN REDUCTION TECHNIQUES PT / STEEL LAYER TO MONITOR FOR SIGNS AND SYMPTOMS OF UTI AND EDUCATE PATIENT/CAREGIVER TO MINIMIZE RISK OF DEVELOPING A UTI. PT / STEEL LAYER TO EDUCATE ON ATRIAL FIBRILLATION SELF-MANAGEMENT. PT/STEEL LAYER TO IDENTIFY FALL RISK FACTORS; EDUCATE THE PATIENT/CAREGIVER ON WAYS TO REDUCE FALL RISK FACTORS AND ESTABLISH HOME EXERCISE PROGRAM TO MINIMIZE FALL RISK. MAY TEACH THE PATIENT FLOOR RECOVERY WHEN CLINICALLY APPROPRIATE [code = AGENCY MAY PERFORM A RESUMPTION OF CARE VISIT FOLLOWING ANY HOSPITAL ADMISSION. PT TO EVALUATE, OBSERVE / ASSESS, AND MONITOR, STEEL LAYER TO OBSERVE AND MONITOR, PROVIDE SKILLED THERAPEUTIC INTERVENTION, ACTIVITY, EDUCATION, AND TRAINING TO ADDRESS; PT/STEEL LAYER TO PROVIDE GAIT TRAINING FOR IMPROVED MOBILITY AND /OR TO NORMALIZE GAIT PATTERN NEUROMUSCULAR RE-EDUCATION / BALANCE / POSTURAL CONTROL (PT) THERAPEUTIC EXERCISES AND ESTABLISHING A HOME EXERCISE PROGRAM (PT/STEEL LAYER) PT/STEEL LAYER TO PROVIDE STAIR TRAINING SIT TO/FROM STAND TRANSFERS (PT/STEEL LAYER) PT / STEEL LAYER TO MONITOR AND EDUCATE ON OXYGEN SATURATION DURING ADLS/IADLS, NOTIFY PHYSICIAN AND/OR THE RN CLINICAL BIOMEDICAL TECHNICIAN FOR PHYSICIAN NOTIFICATION AND IF O2 SATS BELOW PHYSICIAN ORDERED PARAMETERS AFTER 10 MIN OF REST PT / STEEL LAYER MAY EDUCATE ON PAIN MANAGEMENT CLINICALLY INDICATED, INCLUDING NON-PHARMACOLOGICAL PAIN REDUCTION TECHNIQUES PT / STEEL LAYER TO MONITOR FOR SIGNS AND SYMPTOMS OF UTI AND EDUCATE PATIENT/CAREGIVER TO MINIMIZE RISK OF DEVELOPING A UTI. PT / STEEL LAYER TO EDUCATE ON ATRIAL FIBRILLATION SELF-MANAGEMENT. PT/STEEL LAYER TO IDENTIFY FALL RISK FACTORS; EDUCATE THE [...] End Date/Time Encounter Type Admission Type Attending [facility] Care Facility Care Department Encounter ID Discharge Date Discharge Status Discharge Condition Discharge Reason Percent Goals Met 2024-09-20 00:00:00 2024-11-18 00:00:00 Outpatient [facility] [id number]
--- OUTSIDE RECORDS SUMMARY | 2024-11-24 15:57 | XMS_ITS | Clinical Summary ---
Author Organization [address] [facility] Address [address] [place] [address] Phone Care Team Providers Care Jewelry Mold Maker Name Role Phone Unavailable Primary Care Provider Unavailabl e Encounters Date Type Department Care Team Description 09/04/2024 Lab Requisition [facility] Lab [address] [place] [phone] Molly Servin MD Hypotension, unspecified 09/02/2024 Lab Requisition [facility] Lab [address] [place] [phone] Molly Servin MD Anemia, unspecified 08/28/2024 Lab Requisition [facility] Lab [address] [place] [phone] Molly Servin MD Shortness of breath from Last 3 Months Social History Tobacco Use Types Packs/Day Years Used Date Smoking Tobacco: Never Assessed Sex and Gender Information Value Date Recorded Sex Assigned at Not on file Gender Identity Not on file Sexual Orientation Not on file Plan of Treatment Health Maintenance Due Date Last Done Comments Breast Cancer Screening 1955 Pneumococcal Vaccine: 65+ Years (1 of 2 - PCV) 1959 DTaP,Tdap,and Td Vaccines (1 - Tdap) 1972 Zoster Vaccines (1 of 2) 2003 RSV Immunization Patients 60+ Years Old (1 - Risk 60-74 years 1-dose series) 2013 COVID-19 Vaccine (1 - 2023- season) 2024 Influenza Vaccine (#1) 2024 Cholesterol Screening (Lipid Panel) 09/06/2024 Colorectal Cancer Screening: Colonoscopy 09/06/2024 Depression Screening 09/06/2024 Falls Risk Assessment 09/06/2024 Lung Cancer Screening (Low Dose CT) 09/06/2024 Medicare Annual Wellness Visit 09/06/2024 Osteoporosis Screening (Bone Density Screening) 09/06/2024 Social Influencers of Health Screening 09/06/2024 Hypertension/CHF/CAD Annual BMP Blood Test 09/04/2025 09/04/2024, 08/30/2024, 08/20/2024, Additional history exists Hepatitis C Screening Completed 08/09/2024 HIB Vaccines Aged Out No longer eligi ble based on patient's age to complete this topic HPV Vaccines Aged Out No longer eligi ble based on patient's age to complete this topic Hepatitis A Vaccines Aged Out No long er eligible based on patient's age to complete this topic Hepatitis B Vaccines Aged Out No long er eligible based on patient's age to complete this topic IPV Vaccines Aged Out No longer eligi ble based on patient's age to complete this topic MMR Vaccines Aged Out No longer eligi ble based on patient's age to complete this topic Meningococcal ACWY Vaccine Aged Out N o longer eligible based on patient's age to complete this topic RSV Immunization Patients Under 20 months Aged Out No longer eligible based on patient's age to complete this topic Varicella Vaccines Aged Out No longer eligible based on patient's age to complete this topic Procedures Procedure Name Priority Date/Time Associated Diagnosis Comments BASIC METABOLIC PANEL Routine 09/04/2024 8:08 AM EST Hypotension, unspecified COMPLETE BLOOD COUNT Routine 09/04/2024 8:08 AM EST Hypotension, unspecified COMPLETE BLOOD COUNT Routine 09/02/2024 5:42 AM EST Anemia, unspecified VITAMIN B12 Routine 08/30/2024 7:38 AM EST Shortness of breath TRAVEL PHLEBOTOMY FEE Routine 08/30/2024 7:38 AM EST Shortness of breath BASIC METABOLIC PANEL Routine 08/30/2024 7:38 AM EST Shortness of breath COMPLETE BLOOD COUNT Routine 08/30/2024 7:38 AM EST Shortness of breath from Last 3 Months Results * (ABNORMAL) Complete blood count (09/04/2024 8:08 AM EST) Only the most recent of3 resultswithin the time period is included. [facility] WBC 5.0 4.8 - 10.8 K/mcL LAB [...] EST Molly Servin MD LAB BLOOD ORDERABLES [facility] [address] [place] [address], * (ABNORMAL) Basic metabolic panel (09/04/2024 8:08 AM EST) Only the most recent of2 resultswithin the time period is included. Sodium 144 133 - 145 mmol/L LAB CHEMISTRY METHOD 09/04/2024 11:04 AM [facility] Potassium 4.1 3.5 - 5.5 mmol/L LAB CHEMISTRY METHOD 09/04/2024 11:04 AM [facility] Chloride 109 96 - 110 mmol/L LAB CHEMISTRY METHOD 09/04/2024 11:04 AM [facility] CO2 28 21 - 32 mmol/L [...] mg/dL LAB CHEMISTRY METHOD 09/04/2024 11:04 AM EST [facility] eGFR 31(L) >=60 mL/min/1. 73m2 LAB CHEMISTRY METHOD 09/04/2024 11:04 AM EST [facility] Comment:Calculation based on the??Chronic [...] MD LAB BLOOD ORDERABLES Performing Organization Address City/[facility]/ZIP Co de Phone Number [facility] [address] [place] [address], [place] [phone] * Travel phlebotomy fee (08/30/2024 7:38 AM EST) [facility] TRAVEL PHLEBOTOMY FEE Completed 08/30/2024 10:01 AM [facility] Blood Venous blood specimen / Unknown Venipuncture / Unknown 08/30/2024 7:38 AM EST 08/30/2024 9:32 AM EST Molly Servin MD LAB BLOOD ORDERABLES [facility] [address] [place] [address], [place] [phone] * (ABNORMAL) Vitamin B12 (08/30/2024 7:38 AM EST) [facility] Vitamin B-12 1,750(H) 250 - 900 pcg/mL LAB CHEMISTRY METHOD 08/30/2024 10:18 PM EST [facility] Blood Venous blood specimen / Unknown Venipuncture / Unknown 08/30/2024 7:38 AM EST 08/30/2024 9:32 AM EST Molly Servin MD LAB BLOOD ORDERABLES [facility] [address] [place] [address], from Last 3 Months
--- OUTSIDE RECORDS SUMMARY | 2024-11-24 15:57 | XMS_ITS ---
Author Organization [facility] [place] Address Unknown Allergies, Adverse Reactions, Alerts Substance Reaction Status Noted Date Resolved Date Potassium Chloride active 08/20/2024 Codeine active 10/22/2023 Medications Medication Dose Frequency Directions Start Date End Avtar e Acetaminophen Tablet 325 MG 2 {tbl} Give 2 tablet by mouth every 4 hours as needed for Mild Pain More than 3 doses in 48 hours, notify physician/advanced practice provider(DARLENE).Do not exceed 3g/day. (standing order) 08/18/2024 Acetaminophen Tablet 325 MG 2 {tbl} Give 2 tablet by mouth every 6 hours as needed for Temp 100F or above Notify Physician/Advanced Practice provider. Do not exceed 3g/day 08/18/2024 Milk of Magnesia Suspension 400 MG/5ML 30 mL Give 30 ml by mout h as needed for Constipation give at bedtime if no BM in 3 days 08/18/2024 Saline Laxative Enema 1 {Dose} Insert 1 dose rectally as needed for Constipation if no result from Dulcolax within 2 hours. If no results from Saline laxative enema, call MD/advanced practice provider (DARLENE) for further orders. 08/18/2024 Dulcolax Suppository 10 MG 1 Insert 1 suppository rectally as needed for Constipation if no result from MOM by next shift 08/18/2024 Furosemide Tablet 40 MG 1 {tbl} 24 h Give 1 tablet by mouth one time a day for fluid retention 08/23/2024 Flomax Capsule 0.4 MG 1 {Capsule} Give 1 capsule by mouth at bedtime for benign prostatic hyperplasia 08/20/2024 Atorvastatin Calcium Tablet 80 MG 1 {tbl} Give 1 tablet by mouth at bedtime for statin 08/20/2024 Cholecalciferol Tablet 1000 UNIT 1 {tbl} 24 h Give 1 tablet by mouth one time a day for supplement 08/21/2024 Clopidogrel Bisulfate Tablet 75 MG 1 {tbl} 24 h Give 1 tablet by mouth one time a day for blood clot prevention 08/21/2024 Colace Capsule 100 MG 1 {Capsule} 12 h Give 1 capsule by mouth two times a day for Constipation 08/21/2024 Levoxyl Tablet 50 MCG 1 {tbl} 24 h Give 1 tablet by mouth one time a day for low thyroid hormone 08/21/2024 Amiodarone HCl Tablet 200 MG 1 {tbl} 24 h Give 1 tablet by mouth one time a day for abnormal heart rhythm 08/21/2024 Advair Diskus Aerosol Powder Breath Activated 100-50 MCG/DOSE 1 24 h 1 inhalation inhale orally one time a day for COPD Rinse mouth after use 08/21/2024 PARoxetine HCl Tablet 40 MG 1 {tbl} 24 h Give 1 tablet by mouth one time a day for depression 08/21/2024 Terazosin HCl Capsule 1 MG 1 {Capsule} Give 1 capsule by mouth at bedtime for hypertension 08/20/2024 Cyanocobalamin Tablet 1000 MCG 1 {tbl} 24 h Give 1 tablet by mouth one time a day for supplement 08/21/2024 Protonix Oral Tablet Delayed Release 40 MG 40 mg 24 h Give 40 mg by mout h one time a day for GERD 08/22/2024 ProAir HFA Inhalation Aerosol Solution 108 (90 Base) MCG/ACT 2 2 puff inhale orally every 6 hours as needed for wheezing/SOB 08/22/2024 Melatonin Tablet 3 MG 3 {tbl} Give 3 tablet by mouth at bedtime for insomnia 08/22/2024 Ascorbic Acid Tablet 500 MG 1 {tbl} 24 h Give 1 tablet by mouth one time a day for supplement 08/26/2024 Ferrous Sulfate Tablet 325 (65 Fe) MG 1 {tbl} 24 h Give 1 tablet by mouth one time a day for supplement 08/26/2024 Sennosides Tablet 8.6 MG 2 {tbl} 12 h Give 2 tablet by mouth two times a day for constipation 09/14/2024 Metoprolol Tartrate Oral Tablet 25 MG 12.5 {tbl} 24 h Give 12.5 tablet by mouth one time a day for hypertension Hold for SBP<90 09/17/2024 Eliquis Oral Tablet 5 MG 5 mg 12 h Give 5 mg by mouth two times a day for anti coag 09/17/2024 Medications Administered Medication Dose Frequency Status Start Date End Date Acetaminophen Tablet 325 MG 2 {tbl} Acetaminophen Tablet 325 MG 2 {tbl} Milk of Magnesia Suspension 400 MG/5ML 30 mL 09/08/2024 Saline Laxative Enema 1 {Dose} 08/18/20 Dulcolax Suppository 10 MG 1 Furosemide Tablet 40 MG 1 {tbl} 24 h 2023 Flomax Capsule 0.4 MG 1 {Capsule} 2023 Atorvastatin Calcium Tablet 80 MG 1 {tbl} 09/19/2024 Cholecalciferol Tablet 1000 UNIT 1 {tbl} 24 h 09/19/2024 Clopidogrel Bisulfate Tablet 75 MG 1 {tbl} 24 h 09/19/2024 Colace Capsule 100 MG 1 {Capsule} 12 h 2023 Levoxyl Tablet 50 MCG 1 {tbl} 24 h 09/19/20 Amiodarone HCl Tablet 200 MG 1 {tbl} 24 h 1 11/19/2023 Advair Diskus Aerosol Powder Breath Activated 100-50 MCG/DOSE 1 24 h 09/19/2024 PARoxetine HCl Tablet 40 MG 1 {tbl} 24 h Terazosin HCl Capsule 1 MG 1 {Capsule} 1 11/19/2023 Cyanocobalamin Tablet 1000 MCG 1 {tbl} 24 h 09/19/2024 Protonix Oral Tablet Delayed Release 40 MG 40 mg 24 h 09/19/2024 ProAir HFA Inhalation Aeroso l Solution 108 (90 Base) MCG/ACT 2 08/22/2024 Melatonin Tablet 3 MG 3 {tbl} 09/19/20 Ascorbic Acid Tablet 500 MG 1 {tbl} 24 h Ferrous Sulfate Tablet 325 ( 65 Fe) MG 1 {tbl} 24 h 09/19/2024 Sennosides Tablet 8.6 MG 2 {tbl} 12 h 09/19 Metoprolol Tartrate Oral Tab let 25 MG 12.5 {tbl} 24 h 09/19/2024 Eliquis Oral Tablet 5 MG 5 mg 12 h 09/19 Problems Problem Status Start Date End Date URINARY TRACT INFECTION, SIT E NOT SPECIFIED (Primary) (N39.0 - ICD-10-CM) RESOLVED 10/22/2023 11/06/2023 CHRONIC SYSTOLIC (CONGESTIVE ) HEART FAILURE (Primary) (I50.22 - ICD-10-CM) ACTIVE 10/22/2023 SEVERE SEPSIS WITH SEPTIC SHOCK (R65.21 - ICD-10-CM) A CTIVE 08/20/2024 OTHER SPECIFIED SEPSIS (A41.89 - ICD-10-CM) RESOLVED 10/22/2023 11/06/2023 ACUTE KIDNEY FAILURE, UNSPECIFIED (N17.9 - ICD-10-CM) RESOLVED 10/22/2023 11/06/2023 MULTIPLE SCLEROSIS (G35 - ICD-10-CM) ACTIVE 09/27 CHRONIC OBSTRUCTIVE PULMONAR Y DISEASE, UNSPECIFIED (J44.9 - ICD-10-CM) ACTIVE 10/22/2023 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) ACTIVE 10/22/20 ACUTE ON CHRONIC SYSTOLIC (C ONGESTIVE) HEART FAILURE (I50.23 - ICD-10-CM) RESOLVED 10/22/2023 11/06/2023 CHRONIC KIDNEY DISEASE, STAG E 3 UNSPECIFIED (N18.30 - ICD-10-CM) ACTIVE 10/22/2023 PAROXYSMAL ATRIAL FIBRILLATION (I48.0 - ICD-10-CM) ACT TRINH 10/22/2023 ESSENTIAL (PRIMARY) HYPERTENSION (I10 - ICD-10-CM) ACT TRINH 10/22/2023 UNSTEADINESS ON FEET (R26.81 - ICD-10-CM) ACTIVE 08/23/2024 UNSPECIFIED LACK OF COORDINATION (R27.9 - ICD-10-CM) A CTIVE 08/21/2024 CARDIOMYOPATHY, UNSPECIFIED (I42.9 - ICD-10-CM) ACTIVE 10/22/2023 PERIPHERAL VASCULAR DISEASE, UNSPECIFIED (I73.9 - ICD-10-CM) ACTIVE 10/22/2023 ATHEROSCLEROSIS OF RENAL ARTERY (I70.1 - ICD-10-CM) AC TIVE 10/22/2023 ALTERED MENTAL STATUS, UNSPE CIFIED (R41.82 - ICD-10-CM) RESOLVED 10/22/2023 11/06/2023 HYPOTHYROIDISM, UNSPECIFIED (E03.9 - ICD-10-CM) ACTIVE 10/22/2023 MAJOR DEPRESSIVE DISORDER, R ECURRENT, UNSPECIFIED (F33.9 - ICD-10-CM) ACTIVE 08/20/2024 RETENTION OF URINE, UNSPECIFIED (R33.9 - ICD-10-CM) AC TIVE 10/22/2023 Encounters Encounter Performer Performer Role Encounter Diagnoses Location Date Discharge - Discharged to home or self care - *Home Care Agency To Be Determined - Private home/apt. with home health services [facility] [place] 10/22/2023 02:41 pm EST - 11/06/2023 11:30 am EST Discharge - Discharged to home or self care - *Home Care Agency To Be Determined - Private home/apt. with home health services [facility] [place] 08/20/2024 05:15 pm EDT - 09/19/2024 10:35 am EST Advance Directives Directive Description Verification FULL CODE Cardiopulmonary Resuscitation Immunizations Vaccine Date TB 2 Step Mantoux Skin Test 09/01/2024 1 2:00 pm EST TB 2 Step Mantoux Skin Test 11/05/2023 1 1:24 am EST TB 2 Step [place]oux Skin Test 10/22/2023 0 5:00 pm EST COVID-19 Vaccine Dose 1 12/16/2020 12:00 am EST COVID-19 Vaccine Dose 2 01/08/2021 12:00 am EDT COVID-19 Vaccine Additional Dose/Booster 07/15/2022 12:00 am EDT COVID-19 Vaccine Additional Dose/Booster 09/01/2021 12:00 am EDT PCV (Prevnar) 20 Influenza Fluzone High Dose 0.7ML dose ( CVX 197) Comirnaty (pfizer) COVID19 CVX 309 Influenza FLUAD Trivalent CVX 168 Social History Vital Signs Vital Sign Reading Time Taken systolicValue 103 mm[Hg] 09/19/2024 10:04 am EST diastolicValue 68 mm[Hg] 09/19/2024 10:04 am EST systolicValue 107 mm[Hg] 09/19/2024 12:43 am EST diastolicValue 57 mm[Hg] 09/19/2024 12:43 am EST systolicValue 89 mm[Hg] 09/18/2024 10:24 am EST diastolicValue 61 mm[Hg] 09/18/2024 10:24 am EST systolicValue 106 mm[Hg] 09/17/2024 10:27 pm EST diastolicValue 60 mm[Hg] 09/17/2024 10:27 pm EST systolicValue 82 mm[Hg] 09/17/2024 09:34 am EST diastolicValue 46 mm[Hg] 09/17/2024 09:34 am EST systolicValue 129 mm[Hg] 09/17/2024 03:22 am EST diastolicValue 70 mm[Hg] 09/17/2024 03:22 am EST systolicValue 87 mm[Hg] 09/17/2024 03:01 am EST diastolicValue 42 mm[Hg] 09/17/2024 03:01 am EST systolicValue 128 mm[Hg] 09/16/2024 07:48 pm EST diastolicValue 57 mm[Hg] 09/16/2024 07:48 pm EST systolicValue 87 mm[Hg] 09/16/2024 09:51 am EST diastolicValue 56 mm[Hg] 09/16/2024 09:51 am EST systolicValue 125 mm[Hg] 09/15/2024 10:07 pm EST diastolicValue 66 mm[Hg] 09/15/2024 10:07 pm EST heartrate 82 /min 09/19/2024 10:04 am EST heartrate 109 /min 09/19/2024 12:43 am EST heartrate 72 /min 09/18/2024 10:24 am EST heartrate 86 /min 09/17/2024 10:26 pm EST heartrate 100 /min 09/17/2024 09:34 am EST heartrate 80 /min 09/17/2024 03:22 am EST heartrate 84 /min 09/16/2024 07:48 pm EST heartrate 92 /min 09/16/2024 09:51 am EST heartrate 75 /min 09/15/2024 10:07 pm EST painLevel 0 {score} 09/19/2024 12:43 am EST painLevel 0 {score} 09/18/2024 04:04 pm EST painLevel 0 {score} 09/18/2024 12:05 am EST painLevel 0 {score} 09/17/2024 05:43 pm EST painLevel 0 {score} 09/17/2024 09:51 am EST painLevel 0 {score} 09/17/2024 01:46 am EST painLevel 0 {score} 09/16/2024 07:48 pm EST painLevel 0 {score} 09/16/2024 04:38 pm EST painLevel 0 {score} 09/16/2024 11:00 am EST temperature 97.9 [degF] 09/19/2024 12:43 am EST temperature 97.8 [degF] 09/17/2024 10:26 pm EST temperature 97.8 [degF] 09/17/2024 03:22 am EST temperature 97.7 [degF] 09/17/2024 03:01 am EST temperature 97.9 [degF] 09/16/2024 07:48 pm EST temperature 97.3 [degF] 09/15/2024 10:06 pm EST oxygenSaturation 98 % 09/19/2024 12:4 3 am EST oxygenSaturation 100 % 09/17/2024 03:2 2 am EST oxygenSaturation 96 % 09/16/2024 07:4 8 pm EST respirations 18 /min 09/19/2024 12:43 am EST respirations 20 /min 09/17/2024 03:22 am EST respirations 18 /min 09/16/2024 07:48 pm EST respirations 18 /min 09/15/2024 10:08 pm EST
== END ==
LOC: HO.CARD 13:43
PROVIDERS: PCP Internal Medicine
DX: I48.19 Other persistent atrial fibrillation (principal); I42.8 Other cardiomyopathies
CPT/HCPCS: 93306

== ENCOUNTER 2025-01-28 18:58 | Inpatient (IN) | payer MEDICARE, BC, SELFPAY ==
--- NOTE | 2025-01-28 | ECG_ITS ---
Test Reason : weakness Blood Pressure : */* mmHG Vent. Rate : 103 BPM Atrial Rate : * BPM P-R Int : * ms QRS Dur : 126 ms QT Int : 414 ms P-R-T Axes : * 32 182 degrees QTcB Int : 542 ms Atrial fibrillation with rapid ventricular response Left ventricular hypertrophy with QRS widening and repolarization abnormality ( [place] product ) Abnormal ECG When compared with ECG of 22-Oct-2024 13:39, Atrial fibrillation has replaced Sinus rhythm Vent. rate has increased by 46 bpm Referred By: Generic ED Physician Electronically Signed By: GARFIELD KNIGHT
--- NOTE | ~2025-01-28 | XR_ITS ---
CLINICAL HISTORY: chf? 1 view chest x-ray Comparison: CR/SR - XR CHEST 1V - 07/22/24 13:56 EDT Findings: The lungs are clear. Heart size is normal. No acute fracture. IMPRESSION: No findings of heart failure. This document has been electronically signed by: Mary Lou Vivar MD on 01/29/2025 02:56:50
[2025-01-28 19:04] VITALS: BP 109/69; BP 94/65; PULSE 111; PULSE 80; RESP 20; TEMP 36.5; O2SAT 95; O2SAT 97; BMI 23.1
[2025-01-28 19:18] VITALS: BP 109/69; PULSE 111; RESP 20; TEMP 36.5; O2SAT 95
[2025-01-28 19:51] LABS: MANUAL DIFF FLAG NO
[2025-01-28 19:59] LABS: Basophils Absolute Auto 0.1 X10*3/uL (0.0-0.2); Basophils Percent Auto 0.6 % (0-2); Eosinophils Absolute Auto 0.1 X10*3/uL (0.0-0.4); Hematocrit 38.1 % (37.0-47.0); Hemoglobin 12.2 g/dl (12.0-16.0); Imm Gran Abs Auto 0.03 X10*3/uL (0.00-0.03); Imm Gran Pct Auto 0.4 % (0.0-0.4); Lymphocytes Absolute Auto 1.1 X10*3/uL (1.2-4.9); Lymphocytes Percent Auto 14.1 % (20-40); Mean Corpuscular Hemoglobin 23.8 pg (27.0-33.0); Mean Corpuscular Volume 74.3 fL (80.0-98.0); Mean Platelet Volume 9.4 fL (9.4-12.3); Monocytes Absolute Auto 0.6 X10*3/uL (0.1-1.2); Monocytes Percent Auto 6.8 % (2-11); Neutrophils Absolute Auto 6.3 x10*3/uL (2.0-8.3); Neutrophils Percent Auto 77.1 % (45-73); Platelet Count 354 X10*3/uL (160-400); Red Blood Count 5.13 X10*6/uL (4.20-5.50); Red Cell Distribution Width 17.2 % (11.0-16.0); White Blood Count 8.1 X10*3/uL (4.8-10.8)
[2025-01-28 20:08] LABS: Alanine Aminotransferase 17 U/L (0-31); Albumin Level 3.5 g/dL (3.5-5.0); Alkaline Phosphatase 117 U/L (39-117); Anion Gap 16 (12-20); Aspartate Amino Transferase 22 U/L (5-31); Bilirubin Total 0.4 mg/dL (0.0-1.0); Blood Urea Nitrogen 31 mg/dL (9-16); Calcium 9.8 mg/dL (8.4-10.2); Carbon Dioxide 27 mmol/L (22-29); Chloride 102 mmol/L (96-108); Estimated Glomerular Filt Rate 23; Glucose Random 99 mg/dL (60-115); Potassium 3.8 mmol/L (3.3-5.1); Sodium 141 mmol/L (135-145); Total Protein 7.6 g/dL (6.5-8.0)
[2025-01-28 20:28] LABS: Influenza A PCR NEGATIVE (Negative); Influenza B PCR NEGATIVE (Negative); Resp Syncy Virus RNA Qual PCR NEGATIVE (Negative); SARS COV2 PCR INHOUSE NEGATIVE (Negative)
--- OUTSIDE RECORDS SUMMARY | 2025-01-28 20:47 | XMS_ITS | Encounter Summary ---
Author Organization [facility] Address [address] [place] [address] Care Team Providers Care Warehouse Order Selector Name Role Phone Unavailable Primary Care Provider Unavailabl e Encounter Details Date Type Department Care Team (Late st Contact Info) Description 08/28/2024 Lab Requisition [facility] [address] [facility] [place] [address] Molly Servin MD [address] [place], [place] [id number] Shortness of breath Social History Tobacco Use Types Packs/Day Years Used Date Smoking Tobacco: Never Assessed Comments Unknown Sex and Gender Information Value Date Recorded Sex Assigned at Not on file Legal Sex Female 7:36 AM EST Gender Identity Not on file [...] (ABNORMAL) Vitamin B12 (08/30/2024 7:38 AM EST) [facility] Signature Vitamin B-12 1,750(H) 250 - 900 pcg/mL LAB CHEMISTRY METHOD 08/30/2024 10:18 PM EST [facility] Blood Venous blood specimen / Unknown Venipuncture / Unknown 08/30/2024 7:38 AM EST 08/30/2024 9:32 AM EST us Molly Servin MD LAB BLOOD ORDERABLES Final Resul t Performing Organization Address City/[facility] [address]/ZIP Co de Phone Number [facility] [address] [place] [address], [place] [phone] * Travel phlebotomy fee (08/30/2024 7:38 AM EST) [facility] HOME TRAVEL PHLEBOTOMY FEE Completed 08/30/2024 10:01 AM [facility] Blood Venous blood specimen / Unknown Venipuncture / Unknown 08/30/2024 7:38 AM EST 08/30/2024 9:32 AM EST us Molly Servin MD LAB BLOOD ORDERABLES Final Resul t Performing Organization Address City/[facility] [address]/ZIP Co de Phone Number [facility] [address] [place] [address], [place] [phone] * (ABNORMAL) Basic metabolic panel (08/30/2024 7:38 AM EST) [facility] Sodium 143 133 - 145 mmol/L LAB CHEMISTRY METHOD 08/30/2024 10:57 AM [facility] Potassium 4.1 3.5 - 5.5 mmol/L LAB CHEMISTRY METHOD 08/30/2024 10:57 AM [facility] Chloride 107 96 - 110 mmol/L LAB CHEMISTRY METHOD 08/30/2024 10:57 AM [facility] CO2 30 21 - 32 mmol/L LAB CHEMISTRY METHOD 08/30/2024 10:57 AM [facility] Anion Gap 6 3 - 11 LAB CHEMISTRY METHOD 08/30/2024 10:57 AM [facility] Glucose 76 70 - 100 mg/dL LAB CHEMISTRY METHOD 08/30/2024 10:57 AM [facility] BUN 31(H) 5 - 25 mg/dL LAB CHEMISTRY METHOD 08/30/2024 10:57 AM [facility] Creatinine 1.87(H) 0.50 - 1.10 mg/dL LAB CHEMISTRY METHOD 08/30/2024 10:57 AM [facility] eGFR 28(L) >=60 mL/min/1. 73m2 LAB CHEMISTRY METHOD 08/30/2024 10:57 AM [facility] Comment:Calculation based on the??Chronic Kidney Disease Epidemiology Collaboration (CKD-EPI) equation refit??without adjustment for race. BUN/Creatinine Ratio 16.6 LAB CHEMISTRY METHOD 08/30/2024 10:57 AM [facility] Calcium 8.9 8.5 - 10.5 mg/dL LAB CHEMISTRY METHOD 08/30/2024 10:57 AM [facility] Blood Venous blood specimen / Unknown Venipuncture / Unknown 08/30/2024 7:38 AM EST 08/30/2024 9:32 AM EST us Molly Servin MD LAB BLOOD ORDERABLES Final Resul t [facility] [address] [place] [address], * (ABNORMAL) Complete blood count (08/30/2024 7:38 AM EST) WBC 6.0 4.8 - 10.8 K/mcL LAB HEMETOLOGY METHOD 08/30/2024 10:49 AM [facility] RBC 3.50(L) 3.80 - 4.80 M/mcL LAB HEMETOLOGY METHOD 08/30/2024 10:49 AM [facility] Hemoglobin 8.5(L) 11.5 - 16.0 g/dL LAB HEMETOLOGY METHOD 08/30/2024 10:49 AM [facility] Hematocrit 29.5(L) 35.0 - 47.0 % LAB HEMETOLOGY METHOD 08/30/2024 10:49 AM [facility] MCV 84.8 79.0 - 98.0 FL LAB HEMETOLOGY METHOD 08/30/2024 10:49 AM [facility] MCH 24.4(L) 27.0 - 32.0 pcg LAB HEMETOLOGY METHOD 08/30/2024 10:49 AM [facility] MCHC 28.8(L) 32.0 - 37.0 g/dL LAB HEMETOLOGY METHOD 08/30/2024 10:49 AM [facility] RDW 19.6(H) 11.0 - 15.0 % LAB HEMETOLOGY METHOD 08/30/2024 10:49 AM [facility] Platelets 223 130 - 400 K/mcL LAB HEMETOLOGY METHOD 08/30/2024 10:49 AM [facility] MPV 10.4 7.0 - 11.0 FL LAB HEMETOLOGY METHOD 08/30/2024 10:49 AM [facility] NRBC 0.0 <1.0 % LAB HEMETOLOGY METHOD 08/30/2024 10:49 AM EST [facility] NRBC Absolute 0.00 <0.10 K/mcL LAB HEMETOLOGY METHOD 08/30/2024 10:49 AM [facility] Blood Venous blood specimen / Unknown Venipuncture / Unknown 08/30/2024 7:38 AM EST 08/30/2024 9:32 AM EST us Molly Servin MD LAB BLOOD ORDERABLES Final Resul t [facility] [address] [place] [address], [place] [phone] documented in this encounter Visit Diagnoses Diagnosis Shortness of breath documented in this encounter
--- OUTSIDE RECORDS SUMMARY | 2025-01-28 20:47 | XMS_ITS | Clinical Summary ---
Author Organization [facility] Facility Address [address] [address] Care Team Providers Care Transmission Line Engineer Name Role Phone Rod Wakefield MD Primary [...] age to complete this topic Insurance MEDICARE [facility] MEDICARE [facility] Care Teams Transmission Line Engineer Relationship Specialty Start Date End Date Rod Wakefield MD [address] [place] [address] PCP - General Internal Medicine 05/28/21
--- OUTSIDE RECORDS SUMMARY | 2025-01-28 20:47 | XMS_ITS | Encounter Summary ---
Author Organization [facility] Address [address] [facility] [address] [place] [address] Phone Care Team Providers Care Milking System Installer Name Role Phone Rod Wakefield MD Primary Care Provider + Reason for Visit * Reason Comments Med Refill Encounter Details Date Type Department Care Team (Late st Contact Info) Description 01/30/2022 Refill [facility] [address] [place] [address] [place] [address] Oneil Garber MD [address] [facility] [address] [place] [phone] Essential (primary) hypertension; Stage 3a chronic kidney [...] (HCC) documented in this encounter Care Teams Milking System Installer Relationship Specialty Start Date End Date Rod Wakefield MD [address] , [facility] [address] [place] [address] PCP - General Internal Medicine 05/28/21 documented as of this encounter
--- OUTSIDE RECORDS SUMMARY | 2025-01-28 20:47 | XMS_ITS | Clinical Summary ---
Author Organization [address] [facility] Address [address] [place] [address] Phone Care Team Providers Care Medical Doctor Nuclear Medicine Name Role Phone Unavailable Primary Care Provider Unavailabl e Social History Tobacco Use Types Packs/Day Years Used Date Smoking Tobacco: Never Assessed Comments Unknown Sex and Gender Information Value Date Recorded Sex Assigned at Not on file Legal Sex Female 7:36 AM EST Gender Identity Not on file Sexual Orientation Not on file Plan of Treatment Health Maintenance Due Date Last Done Comments Breast Cancer Screening 1955 DTaP,Tdap,and Td Vaccines (1 - Tdap) 1972 Pneumococcal Vaccine: 50+ Years (1 of 2 - PCV) 1972 Zoster Vaccines (1 of 2) 2003 RSV Immunization Adult Patients (1 - Risk 60-74 years 1-dose series) 2013 COVID-19 Vaccine ( - season) 2024 Influenza Vaccine (#1) 2024 Cholesterol [...] patient's age to complete this topic Meningococcal B Vacine Aged Out No lo nger eligible based on patient's age to complete this topic RSV Immunization Patients Under 20 months Aged Out No longer eligible based on patient's age to complete this topic Varicella Vaccines Aged Out No longer eligible based on patient's age to complete this topic Procedures Procedure Name Priority Date/Time Associated Diagnosis Comments BASIC METABOLIC PANEL Routine 09/04/2024 8:08 AM EST Hypotension, unspecified from Last 3 Months or Most Recently Relevant to Health Maintenance Results * (ABNORMAL) Basic metabolic panel (09/04/2024 8:08 AM EST) Sodium 144 133 - 145 mmol/L LAB CHEMISTRY METHOD 09/04/2024 11:04 AM [facility] Potassium 4.1 3.5 - 5.5 mmol/L LAB CHEMISTRY METHOD 09/04/2024 11:04 AM [facility] Chloride 109 96 - 110 mmol/L LAB CHEMISTRY METHOD 09/04/2024 11:04 AM [facility] CO2 28 21 - 32 mmol/L LAB CHEMISTRY METHOD 09/04/2024 11:04 AM [facility] Anion Gap 7 3 - 11 LAB CHEMISTRY METHOD 09/04/2024 11:04 AM [facility] Glucose 76 70 - 100 mg/dL LAB CHEMISTRY METHOD 09/04/2024 11:04 AM [facility] BUN 34(H) 5 - 25 mg/dL LAB CHEMISTRY METHOD 09/04/2024 11:04 AM [facility] Creatinine 1.73(H) 0.50 - 1.10 mg/dL LAB CHEMISTRY METHOD 09/04/2024 11:04 AM EST [facility] eGFR 31(L) >=60 mL/min/1. 73m2 LAB CHEMISTRY METHOD 09/04/2024 11:04 AM EST [facility] Comment:Calculation based on the??Chronic Kidney Disease Epidemiology Collaboration (CKD-EPI) equation refit??without adjustment for race. BUN/Creatinine Ratio 19.7 LAB CHEMISTRY METHOD 09/04/2024 11:04 AM EST [facility] Calcium 8.9 8.5 - 10.5 mg/dL LAB CHEMISTRY METHOD 09/04/2024 11:04 AM [facility] Blood Venous blood specimen / Unknown Venipuncture / Unknown 09/04/2024 8:08 AM EST 09/04/2024 9:58 AM EST us Molly Servin MD LAB BLOOD ORDERABLES Final Resul t [facility] [address] [place] [address], from Last 3 Months or Most Recently Relevant to Health Maintenance Insurance MEDICARE
--- OUTSIDE RECORDS SUMMARY | 2025-01-28 20:47 | XMS_ITS | Encounter Summary ---
Author Organization [facility] Address [address] [place] [address] Care Team Providers Care Angiography Technologist Name Role Phone Unavailable Primary Care Provider Unavailabl e Encounter Details Date Type Department Care Team (Late st Contact Info) Description 09/02/2024 Lab Requisition [facility] - Main Lab [address] [facility] [place] [address] Molly Servin MD [address] [place], [place] [phone] Anemia, unspecified Social History Tobacco Use Types [...] AM EST) WBC 8.5 4.8 - 10.8 K/[facility] LAB HEMETOLOGY METHOD 09/02/2024 8:22 AM EST [facility] RBC 3.30(L) 3.80 - 4.80 M/[facility] LAB HEMETOLOGY METHOD 09/02/2024 8:22 AM EST [facility] Hemoglobin 8.2(L) 11.5 - 16.0 g/dL LAB HEMETOLOGY METHOD 09/02/2024 8:22 AM EST [facility] Hematocrit 27.8(L) 35.0 - 47.0 % LAB HEMETOLOGY METHOD 09/02/2024 8:22 AM EST [facility] MCV 83.5 79.0 - 98.0 FL LAB HEMETOLOGY METHOD 09/02/2024 8:22 AM [facility] MCH 24.6(L) 27.0 - 32.0 pcg LAB HEMETOLOGY METHOD 09/02/2024 8:22 AM [facility] MCHC 29.5(L) 32.0 - 37.0 g/dL LAB HEMETOLOGY METHOD 09/02/2024 8:22 AM [facility] RDW 19.9(H) 11.0 - 15.0 % LAB HEMETOLOGY METHOD 09/02/2024 8:22 AM [facility] Platelets 230 130 - 400 K/mcL LAB HEMETOLOGY METHOD 09/02/2024 8:22 AM EST [facility] MPV 10.5 7.0 - 11.0 FL LAB HEMETOLOGY METHOD 09/02/2024 8:22 AM [facility] NRBC 0.0 <1.0 % LAB HEMETOLOGY METHOD 09/02/2024 8:22 AM [facility] NRBC Absolute 0.00 <0.10 K/mcL LAB HEMETOLOGY METHOD 09/02/2024 8:22 AM [facility] Blood Venous blood specimen / Unknown Venipuncture / Unknown 09/02/2024 5:42 AM EST 09/02/2024 7:50 AM EST us Molly Servin MD LAB BLOOD ORDERABLES Final Resul t [facility] [address] [place] [address], documented in this encounter Visit Diagnoses Diagnosis Anemia, unspecified documented in this encounter
--- OUTSIDE RECORDS SUMMARY | 2025-01-28 20:47 | XMS_ITS | Patient Health Record ---
Author Organization [facility] Address [address] [place] [address] Care Team Providers Care Mlt Name Role Phone EUGENIO JUAREZ Primary Care Provider Boston Khan Jr Unavailable Allergies Allergen (clinical drug ingredient) Drug/Non Drug Allergy documented on EMR Reaction Allergy Type Onset Date Status codeine Codeine Unknown Drug Allergy Active Reason For Referral No Information Medications Medication SIG (Take, Route, Frequency, Duration) Notes [...] Besylate 5 MG Oral for 30 Active Immunizations Vaccine Route Administration Date Status Comme nts Influenza Unknown 10/17/2021 Refused Social History Tobacco Use: Social History Observation Description Date Details (start date - stop date) Former Smoker NA - NA Tobacco Use/Smoking Question Answer Notes Patient is a former smoker How long has it been since you last smoked? 1-5 years Alcohol Screen Question Answer Notes Did you have a drink containing alcohol in the p ast year? 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 Problem 67791304 Gastrointestinal hemorrhage, unspecified gastrointestinal hemorrhage type (K92.2) Active confirmed Problem Esophageal reflux finding (638769082) Gastroesophageal reflux (K21.9) Active confirmed Problem 93554274 Polyp of colon, unspecified part of colon, unspecified type (K63.5) Active confirmed Problem 138614587 Gastroesophageal reflux disease, unspecified whether esophagitis present (K21.9) Active confirmed Plan Of Treatment Pending Test Test Name Order Date CBC [...] Date MEDICARE OF [place] [address] [place] [address] [id number] JULIANA MULLEN Self - patient is the insured [facility] [address] [place], [place] [phone] [id number] JULIANA MULLEN Self - patient is the insured Medical (General) History Medical History History ICD Code NSTEMI 12/17, [...] artery stent placements PCI with stent placement 2018, cardiac c atheter 01/14 patent stents Cataract surgery 2020 cholecystectomy 2008
--- OUTSIDE RECORDS SUMMARY | 2025-01-28 20:47 | XMS_ITS | Encounter Summary ---
Author Organization [facility] Address [address] [place] [address] Care Team Providers Care Gizzard Skin Remover Name Role Phone Unavailable Primary Care Provider Unavailabl e Encounter Details Date Type Department Care Team (Late st Contact Info) Description 09/04/2024 Lab Requisition [facility] - Main Lab [address] [facility] [place] [address] Molly Servin MD [address] [place] [address] Hypotension, unspecified Social History Tobacco Use Types [...] LAB CHEMISTRY METHOD 09/04/2024 11:04 AM EST [facility] Potassium 4.1 3.5 - 5.5 mmol/L LAB CHEMISTRY METHOD 09/04/2024 11:04 AM EST [facility] Chloride 109 96 - 110 mmol/L LAB CHEMISTRY METHOD 09/04/2024 11:04 AM [facility] CO2 28 21 - 32 mmol/L LAB CHEMISTRY METHOD 09/04/2024 11:04 AM [facility] Anion Gap 7 3 - 11 LAB CHEMISTRY METHOD 09/04/2024 11:04 AM [facility] Glucose 76 70 - 100 mg/dL LAB CHEMISTRY METHOD 09/04/2024 11:04 AM [facility] BUN 34(H) 5 - 25 mg/dL LAB CHEMISTRY METHOD 09/04/2024 11:04 AM [facility] Creatinine 1.73(H) 0.50 - 1.10 mg/dL LAB CHEMISTRY METHOD 09/04/2024 11:04 AM [facility] eGFR 31(L) >=60 mL/min/1. 73m2 LAB CHEMISTRY METHOD 09/04/2024 11:04 AM [facility] Comment:Calculation based on the??Chronic Kidney Disease Epidemiology Collaboration (CKD-EPI) equation refit??without adjustment for race. BUN/Creatinine Ratio 19.7 LAB CHEMISTRY METHOD 09/04/2024 11:04 AM [facility] Calcium 8.9 8.5 - 10.5 mg/dL LAB CHEMISTRY METHOD 09/04/2024 11:04 AM [facility] Blood Venous blood specimen / Unknown Venipuncture / Unknown 09/04/2024 8:08 AM EST 09/04/2024 9:58 AM EST us Molly Servin MD LAB BLOOD ORDERABLES Final Resul t [facility] [address] [place] [address], * (ABNORMAL) Complete blood count (09/04/2024 8:08 AM EST) WBC 5.0 4.8 - 10.8 K/mcL LAB HEMETOLOGY METHOD 09/04/2024 10:41 AM [facility] RBC 3.50(L) 3.80 - 4.80 M/mcL LAB HEMETOLOGY METHOD 09/04/2024 10:41 AM [facility] Hemoglobin 8.8(L) 11.5 - 16.0 g/dL LAB HEMETOLOGY METHOD 09/04/2024 10:41 AM [facility] Hematocrit 29.4(L) 35.0 - 47.0 % LAB HEMETOLOGY METHOD 09/04/2024 10:41 AM [facility] MCV 83.5 79.0 - 98.0 FL LAB HEMETOLOGY METHOD 09/04/2024 10:41 AM [facility] MCH 25.0(L) 27.0 - 32.0 pcg LAB HEMETOLOGY METHOD 09/04/2024 10:41 AM [facility] MCHC 29.9(L) 32.0 - 37.0 g/dL LAB HEMETOLOGY METHOD 09/04/2024 10:41 AM [facility] RDW 19.9(H) 11.0 - 15.0 % LAB HEMETOLOGY METHOD 09/04/2024 10:41 AM [facility] Platelets 248 130 - 400 K/mcL LAB HEMETOLOGY METHOD 09/04/2024 10:41 AM [facility] MPV 10.2 7.0 - 11.0 FL LAB HEMETOLOGY METHOD 09/04/2024 10:41 AM [facility] NRBC 0.0 <1.0 % LAB HEMETOLOGY METHOD 09/04/2024 10:41 AM [facility] NRBC Absolute 0.00 <0.10 K/mcL LAB HEMETOLOGY METHOD 09/04/2024 10:41 AM [facility] Blood Venous blood specimen / Unknown Venipuncture / Unknown 09/04/2024 8:08 AM EST 09/04/2024 9:58 AM EST us Molly Servin MD LAB BLOOD ORDERABLES Final Resul t [facility] [address] [place] [address], documented in this encounter Visit Diagnoses Diagnosis Hypotension, unspecified documented in this encounter
--- OUTSIDE RECORDS SUMMARY | 2025-01-28 20:47 | XMS_ITS | Clinical Summary ---
Author Organization [facility] Address [address] [place] [address] Care Team Providers Care Clinical Biostatistician Name Role Phone No, Referring Primary Care [...] to 7.9/25.9 in the ED. Baseline per [place] lab Hgb ~8.5-10. No concern of GI [...] to 7.9/25.9 in the ED. Baseline per [place] lab Hgb ~8.5-10. No concern of GI bleed. - Eliquis per afib section - Start IV iron once stable from infection perspective Assessment & Plan (08/18/2024 3:41 PM EDT): Microcytic anemia. Home med: Iron sulfate 325 mg daily. Presented with H/H 9.3 and 32.5, down trending to 7.9/25.9 in the ED. Baseline per [place] lab Hgb ~8.5-10. No concern of GI bleed. - Eliquis per afib section - Start IV iron once stable from infection perspective Assessment & Plan (08/17/2024 2:57 PM EDT): Microcytic anemia. Home med: Iron sulfate 325 mg daily. Presented with H/H 9.3 and 32.5, down trending to 7.9/25.9 in the ED. Baseline per [place] lab Hgb ~8.5-10. No concern of GI bleed. - Eliquis per afib section - Start IV iron once stable from infection perspective Assessment & Plan (08/16/2024 1:21 PM EDT): Microcytic anemia. Home med: Iron sulfate 325 mg daily. Presented with H/H 9.3 and 32.5, down trending to 7.9/25.9 in the ED. Baseline per [place] lab Hgb ~8.5-10. No concern of GI bleed. - Restart home eliquis at lower dose - Start IV iron once stable from infection perspective Assessment & Plan (08/15/2024 2:33 PM EDT): Microcytic anemia. Home med: Iron sulfate 325 mg daily. Presented with H/H 9.3 and 32.5, down trending to 7.9/25.9 in the ED. Baseline per [place] lab Hgb ~8.5-10. No concern of GI bleed. - Holding home eliquis - Will begin IV iron once stable from infection perspective Assessment & Plan (08/15/2024 12:34 PM EDT): Microcytic anemia. Home med: Iron sulfate 325 mg daily. Presented with H/H 9.3 and 32.5, down trending to 7.9/25.9 in the ED. Baseline per [place] lab Hgb ~8.5-10. No concern of GI bleed. - Holding home eliquis - Will begin IV iron once stable from infection perspective Assessment & Plan (08/14/2024 8:36 PM EDT): Microcytic anemia. Home med: Iron sulfate 325 mg daily. Presented with H/H 9.3 and 32.5, down trending to 7.9/25.9 in the ED. Baseline per [place] lab Hgb ~8.5-10. No concern of GI [...] to 7.9/25.9 in the ED. Baseline per [place] lab Hgb ~8.5-10. No concern of GI [...] to 7.9/25.9 in the ED. Baseline per [place] lab Hgb ~8.5-10. No concern of GI [...] to 7.9/25.9 in the ED. Baseline per [place] lab Hgb ~8.5-10. No concern of GI bleed. - Holding home eliquis - IV iron started per HF section Assessment & Plan (08/10/2024 6:12 PM EDT): Microcytic anemia. Home med: Iron sulfate 325 mg daily. Presented with H/H 9.3 and 32.5, down trending to 7.9/25.9 in the ED. Baseline per [place] lab Hgb ~8.5-10. No concern of GI bleed. - Holding home anticoagulation Assessment & Plan (08/09/2024 5:57 PM EDT): Patient presented with nose bleeds. Found to be anemic with an H/H 9.3 and 32.5, down trending to 7.9/25.9 in the ED. Baseline per [place] lab hgb ~8.5-10. No concern of GI [...] Lopressor 50 mg BID, Follows Cardiology at [place]. Called [facility] pharmacy in [place] who reported that she didn't refill her [...] Lopressor 50 mg BID, Follows Cardiology at [place]. Called [facility] pharmacy in [place] who reported that she didn't refill her [...] Lopressor 50 mg BID, Follows Cardiology at [place]. Called [facility] pharmacy in [place] who reported that she didn't refill her [...] Lopressor 50 mg BID, Follows Cardiology at [place]. Called [facility] pharmacy in [place] who reported that she didn't refill her [...] Lopressor 50 mg BID, Follows Cardiology at [place]. Called [facility] pharmacy in [place] who reported that she didn't refill her [...] Lopressor 50 mg BID, Follows Cardiology at [place]. Called [facility] pharmacy in [place] who reported that she didn't refill her [...] Lopressor 50 mg BID, Follows Cardiology at [place]. Called [facility] pharmacy in [place] who reported that she didn't refill her [...] Lopressor 50 mg BID, Follows Cardiology at [place]. Called [facility] pharmacy in [place] who reported that she didn't refill her Eliquis in March 2024. Patient noted to be irregular, irregular on exam. - Hold home Eliquis and Amio due to acute liver failure. - Lopressor 50 mg BID Assessment & Plan (2024 2:30 PM EDT): Home med: Eliquis 2.5 mg BID, Amio 200 mg daily, Follows Cardiology at [place]. Called [facility] pharmacy in [place] who reported that she didn't refill her Eliquis in March 2024. Patient noted to be irregular, irregular on exam. - Hold home Eliquis - Lopressor 50 mg BID Assessment & Plan (08/12/2024 7:50 PM EDT): Home med: Eliquis 2.5 mg BID, Amio 200 mg daily, Follows Cardiology at [place]. Called [facility] pharmacy in [place] who reported that she didn't refill her Eliquis in March 2024. Patient noted to be irregular, irregular on exam. - Hold home Eliquis - Lopressor 50 mg BID Assessment & Plan (08/11/2024 6:29 PM EDT): Home med: Eliquis 2.5 mg BID, Amio 200 mg daily, Follows Cardiology at [place]. Called [facility] pharmacy in [place] who reported that she didn't refill her Eliquis in March 2024. Patient noted to be irregular, irregular on exam. - Hold home Eliquis - Lopressor 50 mg BID Assessment & Plan (08/10/2024 6:12 PM EDT): Home med: Eliquis 2.5 mg BID, Amio 200 mg daily, Follows Cardiology at [place]. Called [facility] pharmacy in [place] who reported that she didn't refill her Eliquis in March 2024. Patient noted to be irregular, irregular on exam. - Hold home Eliquis - Lopressor 25 mg BID Assessment & Plan (08/09/2024 5:57 PM EDT): History of afib, reportedly on Eliquis. Follows Cardiology at [place]. Called [facility] pharmacy in [place] who reported that she didn't refill her [...] dribbles out. She follows with urology at [place]. She has required straight caths before, and [...] dribbles out. She follows with urology at [place]. She has required straight caths before, and [...] dribbles out. She follows with urology at [place]. She has required straight caths before, and [...] dribbles out. She follows with urology at [place]. She has required straight caths before, and [...] Furosemide 20 mg PO every day Follows lining stuffer at [place] (Dr. 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 By report, Echocardiogram was [...] Furosemide 20 mg PO every day Follows lining stuffer at [place] (Dr. 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 By report, Echocardiogram was [...] Furosemide 20 mg PO every day Follows lining stuffer at [place] (Dr. 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 By report, Echocardiogram was [...] Furosemide 20 mg PO every day Follows lining stuffer at [place] (Dr. 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 By report, Echocardiogram was [...] Furosemide 20 mg PO every day Follows lining stuffer at [place] (Dr. 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 By report, Echocardiogram was [...] Furosemide 20 mg PO every day Follows lining stuffer at [place] (Dr. 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 By report, Echocardiogram was [...] Furosemide 20 mg PO every day Follows lining stuffer at [place] (Dr. 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 By report, Echocardiogram was [...] Furosemide 20 mg PO every day Follows lining stuffer at [place] (Dr. Tera Lizama) Patient with a history of HFrEF, unknown last EF, presenting for several days of worsening orthopnea. New oxygen requirement on 2L NC, CXR showed pulmonary edema but clinically doesn't appear volume overload. Pro-BNP 64,308. Unable to obtain prior TTE result from [place]. Trop elevated to 34, likely demand ischemia [...] 08/11/2024 progress note for cardiology notes from [place]. - Hold home lasix dose - Lopressor [...] Furosemide 20 mg PO every day Follows lining stuffer at [place] (Dr. Tera Lizama) Patient with a history of HFrEF, unknown last EF, presenting for several days of worsening orthopnea. New oxygen requirement on 2L NC, CXR showed pulmonary edema but clinically doesn't appear volume overload. Pro-BNP 64,308. Unable to obtain prior TTE result from [place]. Trop elevated to 34, likely demand ischemia [...] 08/11/2024 progress note for cardiology notes from [place]. - Hold home lasix dose - Continue [...] Furosemide 20 mg PO every day Follows lining stuffer at [place] (Dr. Tera Lizama) Patient with a history of HFrEF, unknown last EF, presenting for several days of worsening orthopnea. New oxygen requirement on 2L NC, CXR showed pulmonary edema but clinically doesn't appear volume overload. Pro-BNP 64,308. Unable to obtain prior TTE result from [place]. Trop elevated to 34, likely demand ischemia [...] 08/11/2024 progress note for cardiology notes from [place]. - Hold home lasix - Continue Lopressor [...] Furosemide 20 mg PO every day Follows lining stuffer at [place] (Dr. Tera Lizama) Patient with a history of HFrEF, unknown last EF, presenting for several days of worsening orthopnea. New oxygen requirement on 2L NC, CXR showed pulmonary edema but clinically doesn't appear volume overload. Pro-BNP 64,308. Unable to obtain prior TTE result from [place]. Trop elevated to 34, likely demand ischemia [...] for further details for cardiology notes from [place]. - Hold home lasix - Increase Lopressor [...] Furosemide 20 mg PO every day Follows lining stuffer at [place]. Patient with a history of HFrEF, unknown last EF, presenting for several days of worsening orthopnea. New oxygen requirement on 2L NC, CXR showed pulmonary edema but clinically doesn't appear volume overload. Pro-BNP 64,308. Unable to obtain prior TTE result from [place]. Trop elevated to 34, likely demand ischemia [...] Unable to obtain prior TTE result from [place]. Trop elevated to 34, likely demand ischemia [...] on admission. Per request from lab at [place], patient's most recent creatinines are elevated to 2.54-2.96. Patient has a history of CKD and was previously following with Dr. Garber at [facility], however, last appointment available in [facility] is from 04/24/2023. Renal following. Likely [...] on admission. Per request from lab at [place], patient's most recent creatinines are elevated to 2.54-2.96. Patient has a history of CKD and was previously following with Dr. Garber at [facility], however, last appointment available in [facility] is from 04/24/2023. Renal following. Likely ATN in setting of shock on presentation. Improving. Nephro consulted, appreciate recs: - Daily BMP - Ordered CPK to rule out rhabdo - 1.5L fluid restriction Assessment & Plan (08/18/2024 3:41 PM EDT): Cr elevated to 3.38 with an eGFR of 14 on admission. Per request from lab at [place], patient's most recent creatinines are elevated to 2.54-2.96. Patient has a history of CKD and was previously following with Dr. Garber at [facility], however, last appointment available in [facility] is from 04/24/2023. Renal following. Likely ATN in setting of shock on presentation. Improving. Nephro consulted, appreciate recs: - Daily BMP - Ordered CPK to rule out rhabdo - 1.5L fluid restriction Assessment & Plan (08/17/2024 2:57 PM EDT): Cr elevated to 3.38 with an eGFR of 14 on admission. Per request from lab at [place], patient's most recent creatinines are elevated to 2.54-2.96. Patient has a history of CKD and was previously following with Dr. Garber at [facility], however, last appointment available in [facility] is from 04/24/2023. Renal following. Likely ATN in setting of shock on presentation. Improving. Nephro consulted, appreciate recs: - Daily BMP - Ordered CPK to rule out rhabdo - 1.5L fluid restriction Assessment & Plan (08/16/2024 1:31 PM EDT): Cr elevated to 3.38 with an eGFR of 14 on admission. Per request from lab at [place], patient's most recent creatinines are elevated to 2.54-2.96. Patient has a history of CKD and was previously following with Dr. Garber at [facility], however, last appointment available in [facility] is from 04/24/2023. Renal following. Likely ATN in setting of shock on presentation. Improving. Nephro consulted, appreciate recs: - Daily BMP - Ordered CPK to rule out rhabdo - 1.5L fluid restriction Assessment & Plan (08/15/2024 2:33 PM EDT): Cr elevated to 3.38 with an eGFR of 14 on admission. Per request from lab at [place], patient's most recent creatinines are elevated to 2.54-2.96. Patient has a history of CKD and was previously following with Dr. Garber at [facility], however, last appointment available in [facility] is from 04/24/2023. Renal following. Likely ATN in setting of shock on presentation. Improving. - Daily BMP Assessment & Plan (08/15/2024 12:34 PM EDT): Cr elevated to 3.38 with an eGFR of 14 on admission. Per request from lab at [place], patient's most recent creatinines are elevated to 2.54-2.96. Patient has a history of CKD and was previously following with Dr. Garber at [facility], however, last appointment available in [facility] is from 04/24/2023. Renal following. Likely ATN in setting of shock on presentation. Improving. - Daily BMP Assessment & Plan (08/14/2024 8:36 PM EDT): Cr elevated to 3.38 with an eGFR of 14 on admission. Per request from lab at [place], patient's most recent creatinines are elevated to 2.54-2.96. Patient has a history of CKD and was previously following with Dr. Garber at [facility], however, last appointment available in [facility] is from 04/24/2023. Renal following. Likely ATN in setting of shock on presentation Assessment & Plan (2024 2:30 PM EDT): Cr elevated to 3.38 with an eGFR of 14 on admission. Per request from lab at [place], patient's most recent creatinines are elevated to 2.54-2.96. Patient has a history of CKD and was previously following with Dr. Garber at [facility], however, last appointment available in [facility] is from 04/24/2023. Renal following. - Patient will require close monitoring as well especially in the setting of hypothermia and septic shock on admission causing ischemic liver injury and worsening SUSAN. - Evidence of secondary hyperparathyroidism, renal is following Assessment & Plan (08/12/2024 7:50 PM EDT): Cr elevated to 3.38 with an eGFR of 14 on admission. Per request from lab at [place], patient's most recent creatinines are elevated to 2.54-2.96. Patient has a history of CKD and was previously following with Dr. Garber at [facility], however, last appointment available in [facility] is from 04/24/2023. Renal following. - [...] on admission. Per request from lab at [place], patient's most recent creatinines are elevated to 2.54-2.96. Patient has a history of CKD and was previously following with Dr. Garber at [facility], however, last appointment available in [facility] is from 04/24/2023. Renal following. - [...] on admission. Per request from lab at [place], patient's most recent creatinines are elevated to 2.54-2.96. Patient has a history of CKD and was previously following with Dr. Garber at [facility], however, last appointment available in [facility] is from 04/24/2023. Renal following. - Patient will require close monitoring as well especially in the setting of hypothermia and septic shock on admission causing ischemic liver injury and worsening SUSAN. - Strict I/O Assessment & Plan (08/09/2024 5:57 PM EDT): Cr elevated to 3.38 with an eGFR of 14 on admission. Per request from lab at [place], patient's most recent creatinines are elevated to 2.54-2.96. Patient has a history of CKD and was previously following with Dr. Garber at [facility], however, last appointment available in [facility] is from 04/24/2023. - Nephro following: [...] Years Used Date Smoking Tobacco: Never Assessed [facility] Utilities Answer Date Recorded In the past 12 months has [employer], [employer] oil, or water [employer] threatened to shut off services in your [...] FOBT / Fit Test 1953 Sigmoidoscopy 1953 Medicare AWV 1954 Pneumococcal Vaccine: 50+ Years (1 of 2 - PCV) 1972 DTaP,Tdap,and Td Vaccines (1 - Tdap) 1975 Mammogram 1993 Osteoporosis Screening 2003 Zoster Vaccines (1 of 2) 2003 RSV Vaccine (60+ years old and patients) (1 - Risk 60-74 years 1-dose series) 2013 Urine Microalbumin 04/03/2024 04/03/2023 COVID-19 Vaccine ( season) 2024 07/15/2022, 09/01/2021, 01/08/2021, Additional history exists Alcohol/Substance Use Screening 10/27/2024 Depression Screening and Follow-Up 10/27/2024 Health Care Proxy Review 10/27/2024 Social Drivers of Health Annual Screening 10/27/2024 Basic Metabolic Panel 12/21/2024 08/20/2024 , 08/19/2024, 08/18/2024, Additional history exists Influenza Vaccine (Season Ended) 2025 PTH 08/12/2025 08/12/2024 Phosphorus 08/12/2025 08/12/2024, 08/09/2024 Hemoglobin 08/20/2025 08/20/2024, 07/28, 08/18/2024, Additional history exists Hepatitis C Screening Completed 08/09/2024 Hepatitis B Vaccines Aged Out No long er eligible based on patient's age to complete this topic Procedures * Due to [facility] law, this organization might not be sharing [...] Maintenance Results * Due to [employer] [place] [employer] law, this organization might not be sharing negative HIV tests. * (ABNORMAL) CBC Auto Differential (08/20/2024 6:44 AM EDT) WBC 6.2 3.8 - 10.8 10*3/uL 08/20/2024 7:40 AM EDT [facility] RBC 3.24(L) 3.80 - 5.10 10*6/uL 08/20/2024 7:40 AM EDT [facility] Hemoglobin 7.7(L) 11.7 - 15.5 g/dL 08/20/2024 7:40 AM EDT [facility] Hematocrit 26.1(L) 35.0 - 45.0 % 08/20/2024 7:40 AM EDT [facility] MCV 80.6 80.0 - 100.0 fL 08/20/2024 7:40 AM EDT [facility] MCH 23.8(L) 27.0 - 33.0 pg 08/20/2024 7:40 AM EDT [facility] MCHC 29.5(L) 32.0 - 36.0 g/dL 08/20/2024 7:40 AM EDT [facility] RDW 16.9(H) 11.0 - 15.0 % 08/20/2024 7:40 AM EDT [facility] Platelets 196 140 - 400 10*3/uL 08/20/2024 7:40 AM EDT [facility] MPV 10.9 7.5 - 12.5 fL 08/20/2024 7:40 AM EDT [facility] Neutrophil % 65.4 % 08/20/2024 7:40 AM EDT [facility] Immature Grans % 0.5 0.0 - 0.9 % 08/20/2024 7:40 AM EDT [facility] Lymphocyte % 20.8 % 08/20/2024 7:40 AM EDT [facility] Monocyte % 10.2 % 08/20/2024 7:40 AM EDT [facility] Eosinophil % 2.4 % 08/20/2024 7:40 AM EDT [facility] Basophil % 0.7 % 08/20/2024 7:40 AM EDT [facility] Neutrophil # 4.02 1.50 - 7.80 10*3/uL 08/20/2024 7:40 AM EDT [facility] Immature Grans # 0.03 <=0.03 10*3/uL 08/20/2024 7:40 AM EDT [facility] Lymphocyte # 1.30 0.85 - 3.90 10*3/uL 08/20/2024 7:40 AM EDT [facility] Monocyte # 0.60 0.20 - 0.95 10*3/uL 08/20/2024 7:40 AM EDT [facility] Eosinophil # 0.20 0.02 - 0.50 10*3/uL 08/20/2024 7:40 AM EDT [facility] Basophil # <0.03 0.00 - 0.20 10*3/uL 08/20/2024 7:40 AM EDT [facility] nRBC % 0.0 /100 WBCs 08/20/2024 7:40 AM EDT [facility] [employer] [facility] nRBC # <0.01 <0.01 10*3/uL 08/20/2024 7:40 AM EDT [facility] [employer] [facility] Blood Structure of peripheral vein / Unknown Venipuncture / Unknown 08/20/2024 6:44 AM EDT 08/20/2024 7:26 AM EDT us Jared Bell MD PhD LAB BLOOD ORDERABLES Final Resu lt [facility] [employer] [facility] [address] [place] [address], [place] * (ABNORMAL) Basic Metabolic Panel (08/20/2024 6:44 AM EDT) NA 144 135 - 145 mmol/L 08/20/2024 8:21 AM EDT [facility] K 4.7 3.5 - 5.3 mmol/L 08/20/2024 8:21 AM EDT [facility] Cl 111(H) 98 - 107 mmol/L 08/20/2024 8:21 AM EDT [facility] CO2 23 22 - 32 mmol/L 08/20/2024 8:21 AM EDT [facility] [employer] [facility] BUN 42(H) 7 - 23 mg/dL 08/20/2024 8:21 AM EDT [facility] [employer] [facility] Creatinine 2.36(H) 0.50 - 1.20 mg/dL 08/20/2024 8:21 AM EDT [facility] Glucose 86 65 - 99 mg/dL 08/20/2024 8:21 AM EDT [facility] Calcium 9.1 8.6 - 10.5 mg/dL 08/20/2024 8:21 AM EDT [facility] [employer] [facility] Anion Gap 10 5 - 15 08/20/2024 8:21 AM EDT [facility] eGFR 22(L) >=60 mL/min/1 .73m2 08/20/2024 8:21 AM EDT [facility] Comment:The estimated glomer ular [...] 6:44 AM EDT 08/20/2024 7:23 AM EDT Jared Bell MD PhD LAB BLOOD ORDERABLES Final Resu lt [facility] [address] [place] [address], * (ABNORMAL) PTH, Intact and Calcium (08/12/2024 6:51 AM EDT) Parathyroid Hormone, Intact 203(H) 16 - 77 pg/mL 2024 4:01 AM EDT [facility] Comment: Interpretive Guide ?Intact PTH ? Calcium ? ------- Normal Parathyroid ?Normal ? Normal Hypoparathyroidism ?Low or Low Normal ?Low Hyperparathyroidism ?? Primary ?Normal or High ? High ?? Secondary ?High ? Normal or Low ?? Tertiary ? High ? High Non-Parathyroid ?? Hypercalcemia ?Low or Low Normal ?High Calcium 8.2(L) 8.6 - 10.4 mg/dL 2024 4:01 AM EDT [facility] Blood Structure of peripheral vein / Unknown Venipuncture / Unknown 08/12/2024 6:51 AM EDT 08/12/2024 7:38 AM EDT Narrative [facility] - 2024 4:01 AM EDT [employer] Received Date: Brigitte Duke MD LAB BLOOD ORDERABLES Final Resul t [facility] [address], [place] [address], [facility] [address] [facility] [address], [place] [address], [place] [phone] * Phosphorus (08/12/2024 6:51 AM EDT) Phosphorus 3.7 2.5 - 4.5 mg/dL 08/12/2024 9:17 AM EDT [facility] Blood Structure of peripheral vein / Unknown Venipuncture / Unknown 08/12/2024 6:51 AM EDT 08/12/2024 7:38 AM EDT us Brigitte Duke MD LAB BLOOD ORDERABLES Final Resul t [facility] [address] [place] [address], [place] * Hepatitis Panel, Acute (08/09/2024 10:04 AM EDT) Hepatitis A IgM NON-REACT TRINH NON-REACT TRINH 08/09/2024 8:26 PM EDT [employer] [facility] Hepatitis B Surface Antigen NON-REACT TRINH NON-REACT TRINH 08/09/2024 8:26 PM EDT [employer] [facility] Hepatitis B Core Antibody NON-REACT TRINH NON-REACT TRINH 08/09/2024 8:26 PM EDT [employer] [facility] Hepatitis C Antibody NON-REACT TRINH NON-REACT TRINH 08/09/2024 8:26 PM EDT [employer] [facility] Comment: HCV antibody was non-reactive. There is no laboratory evidence of HCV infection. In most cases, no further action is required. However, if recent HCV exposure is suspected, a test for HCV RNA (test code 39537) is suggested. For additional information please refer to [email or web address] (This link is being provided for informational/ educational purposes only.) For additional information, please refer to [email or web address] (This link is being provided for informational/ educational purposes only.) Blood Structure of peripheral vein / Unknown Venipuncture / Unknown 08/09/2024 10:04 AM EDT 08/09/2024 10:12 AM EDT Narrative [facility] - 08/09/2024 8:26 PM EDT [facility] Received Date: April Ann MD LAB BLOOD ORDERABLES Final Resul t [address], [place] [address], [place] [phone] [employer] [address], [place] [address], [place] [phone] from Last 3 Months or Most Recently Relevant to Health Maintenance Insurance [facility] FEDERAL MEDICARE Advance Directives Documents on File Type Date Recorded Patient Materials Intern Expl anation Health Care Proxy 08/11/2024 4:04 PM Aliya Vasquez 03-2 * Full Code (Latest Code Status on File) Date Activated Date Inactivated Comments 08/09/2024 8:23 AM 08/20/2024 5:20 PM Healthcare Agents on File Name Relationship Healthcare Agent Relationshi p Communication Aliya Vasquez Sister Health Care Agent Care Teams Clinical Biostatistician Relationship Specialty Start Date End Date No, Referring PCP - General 08/08/24
--- OUTSIDE RECORDS SUMMARY | 2025-01-28 20:48 | XMS_ITS | Referral Summary ---
Author Organization [facility] Address [address] [place] [address] Care Team Providers Care Brim Blocker Name Role Phone No, Referring Primary Care [...] to 7.9/25.9 in the ED. Baseline per [facility] Hgb ~8.5-10. No concern of GI [...] to 7.9/25.9 in the ED. Baseline per [facility] Hgb ~8.5-10. No concern of GI bleed. - Eliquis per afib section - Start IV iron once stable from infection perspective Assessment & Plan (08/18/2024 3:41 PM EDT): Microcytic anemia. Home med: Iron sulfate 325 mg daily. Presented with H/H 9.3 and 32.5, down trending to 7.9/25.9 in the ED. Baseline per [facility] Hgb ~8.5-10. No concern of GI bleed. - Eliquis per afib section - Start IV iron once stable from infection perspective Assessment & Plan (08/17/2024 2:57 PM EDT): Microcytic anemia. Home med: Iron sulfate 325 mg daily. Presented with H/H 9.3 and 32.5, down trending to 7.9/25.9 in the ED. Baseline per [facility] Hgb ~8.5-10. No concern of GI bleed. - Eliquis per afib section - Start IV iron once stable from infection perspective Assessment & Plan (08/16/2024 1:21 PM EDT): Microcytic anemia. Home med: Iron sulfate 325 mg daily. Presented with H/H 9.3 and 32.5, down trending to 7.9/25.9 in the ED. Baseline per [facility] Hgb ~8.5-10. No concern of GI bleed. - Restart home eliquis at lower dose - Start IV iron once stable from infection perspective Assessment & Plan (08/15/2024 2:33 PM EDT): Microcytic anemia. Home med: Iron sulfate 325 mg daily. Presented with H/H 9.3 and 32.5, down trending to 7.9/25.9 in the ED. Baseline per [facility] Hgb ~8.5-10. No concern of GI bleed. - Holding home eliquis - Will begin IV iron once stable from infection perspective Assessment & Plan (08/15/2024 12:34 PM EDT): Microcytic anemia. Home med: Iron sulfate 325 mg daily. Presented with H/H 9.3 and 32.5, down trending to 7.9/25.9 in the ED. Baseline per [facility] Hgb ~8.5-10. No concern of GI bleed. - Holding home eliquis - Will begin IV iron once stable from infection perspective Assessment & Plan (08/14/2024 8:36 PM EDT): Microcytic anemia. Home med: Iron sulfate 325 mg daily. Presented with H/H 9.3 and 32.5, down trending to 7.9/25.9 in the ED. Baseline per [facility] Hgb ~8.5-10. No concern of GI [...] to 7.9/25.9 in the ED. Baseline per [facility] Hgb ~8.5-10. No concern of GI [...] to 7.9/25.9 in the ED. Baseline per [facility] Hgb ~8.5-10. No concern of GI [...] to 7.9/25.9 in the ED. Baseline per [facility] Hgb ~8.5-10. No concern of GI bleed. - Holding home eliquis - IV iron started per HF section Assessment & Plan (08/10/2024 6:12 PM EDT): Microcytic anemia. Home med: Iron sulfate 325 mg daily. Presented with H/H 9.3 and 32.5, down trending to 7.9/25.9 in the ED. Baseline per [facility] Hgb ~8.5-10. No concern of GI bleed. - Holding home anticoagulation Assessment & Plan (08/09/2024 5:57 PM EDT): Patient presented with nose bleeds. Found to be anemic with an H/H 9.3 and 32.5, down trending to 7.9/25.9 in the ED. Baseline per [facility] hgb ~8.5-10. No concern of GI [...] Lopressor 50 mg BID, Follows Cardiology at [facility]. Called [facility] pharmacy in [place] who reported that she didn't refill her [...] Lopressor 50 mg BID, Follows Cardiology at [facility]. Called [facility] pharmacy in [place] who reported that she didn't refill her [...] Lopressor 50 mg BID, Follows Cardiology at [facility]. Called [facility] pharmacy in [place] who reported that she didn't refill her [...] Lopressor 50 mg BID, Follows Cardiology at [facility]. Called [facility] pharmacy in [place] who reported that she didn't refill her [...] Lopressor 50 mg BID, Follows Cardiology at [facility]. Called [facility] pharmacy in [place] who reported that she didn't refill her [...] Lopressor 50 mg BID, Follows Cardiology at [facility]. Called [facility] pharmacy in [place] who reported that she didn't refill her [...] Lopressor 50 mg BID, Follows Cardiology at [facility]. Called [facility] pharmacy in [place] who reported that she didn't refill her [...] Lopressor 50 mg BID, Follows Cardiology at [facility]. Called [facility] pharmacy in [place] who reported that she didn't refill her Eliquis in March 2024. Patient noted to be irregular, irregular on exam. - Hold home Eliquis and Amio due to acute liver failure. - Lopressor 50 mg BID Assessment & Plan (2024 2:30 PM EDT): Home med: Eliquis 2.5 mg BID, Amio 200 mg daily, Follows Cardiology at [facility]. Called [facility] pharmacy in [place] who reported that she didn't refill her Eliquis in March 2024. Patient noted to be irregular, irregular on exam. - Hold home Eliquis - Lopressor 50 mg BID Assessment & Plan (08/12/2024 7:50 PM EDT): Home med: Eliquis 2.5 mg BID, Amio 200 mg daily, Follows Cardiology at [facility]. Called [facility] pharmacy in [place] who reported that she didn't refill her Eliquis in March 2024. Patient noted to be irregular, irregular on exam. - Hold home Eliquis - Lopressor 50 mg BID Assessment & Plan (08/11/2024 6:29 PM EDT): Home med: Eliquis 2.5 mg BID, Amio 200 mg daily, Follows Cardiology at [facility]. Called [facility] pharmacy in [place] who reported that she didn't refill her Eliquis in March 2024. Patient noted to be irregular, irregular on exam. - Hold home Eliquis - Lopressor 50 mg BID Assessment & Plan (08/10/2024 6:12 PM EDT): Home med: Eliquis 2.5 mg BID, Amio 200 mg daily, Follows Cardiology at [facility]. Called [facility] pharmacy in [place] who reported that she didn't refill her Eliquis in March 2024. Patient noted to be irregular, irregular on exam. - Hold home Eliquis - Lopressor 25 mg BID Assessment & Plan (08/09/2024 5:57 PM EDT): History of afib, reportedly on Eliquis. Follows Cardiology at [facility]. Called [facility] pharmacy in [place] who reported that she didn't refill her [...] dribbles out. She follows with urology at [facility]. She has required straight caths before, and [...] dribbles out. She follows with urology at [facility]. She has required straight caths before, and [...] dribbles out. She follows with urology at [facility]. She has required straight caths before, and [...] dribbles out. She follows with urology at [facility]. She has required straight caths before, and [...] Furosemide 20 mg PO every day Follows [facility] at [facility] (Dr. 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 Tera Lizama) Patient with a history of HFrEF, unknown last EF, presenting for several days of worsening orthopnea. New oxygen requirement on 2L NC, CXR showed pulmonary edema but clinically doesn't appear volume overload. Pro-BNP 64,308. Unable to obtain prior TTE result from [facility]. Trop elevated to 34, likely demand ischemia [...] 08/11/2024 progress note for cardiology notes from [facility]. - Hold home lasix dose - Lopressor [...] Furosemide 20 mg PO every day Follows [facility] at [facility] (Dr. Tera Lizama) Patient with a history of HFrEF, unknown last EF, presenting for several days of worsening orthopnea. New oxygen requirement on 2L NC, CXR showed pulmonary edema but clinically doesn't appear volume overload. Pro-BNP 64,308. Unable to obtain prior TTE result from [facility]. Trop elevated to 34, likely demand ischemia [...] 08/11/2024 progress note for cardiology notes from [facility]. - Hold home lasix dose - Continue [...] Furosemide 20 mg PO every day Follows [facility]ware [facility] at [facility] (Dr. Tera Lizama) Patient with a history of HFrEF, unknown last EF, presenting for several days of worsening orthopnea. New oxygen requirement on 2L NC, CXR showed pulmonary edema but clinically doesn't appear volume overload. Pro-BNP 64,308. Unable to obtain prior TTE result from [facility]. Trop elevated to 34, likely demand ischemia [...] 08/11/2024 progress note for cardiology notes from [facility]. - Hold home lasix - Continue Lopressor [...] Furosemide 20 mg PO every day Follows [facility] at [facility] (Dr. Tera Lizama) Patient with a history of HFrEF, unknown last EF, presenting for several days of worsening orthopnea. New oxygen requirement on 2L NC, CXR showed pulmonary edema but clinically doesn't appear volume overload. Pro-BNP 64,308. Unable to obtain prior TTE result from [facility]. Trop elevated to 34, likely demand ischemia [...] for further details for cardiology notes from [facility]. 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 Patient with a history of HFrEF, unknown last EF, presenting for several days of worsening orthopnea. New oxygen requirement on 2L NC, CXR showed pulmonary edema but clinically doesn't appear volume overload. Pro-BNP 64,308. Unable to obtain prior TTE result from [facility]. Trop elevated to 34, likely demand ischemia [...] Unable to obtain prior TTE result from [facility]. Trop elevated to 34, likely demand ischemia [...] on admission. Per request from lab at [facility], patient's most recent creatinines are elevated to 2.54-2.96. Patient has a history of CKD and was previously following with Dr. Garber at [facility], however, last appointment available in [facility] is from 04/24/2023. Renal following. Likely [...] on admission. Per request from lab at [facility], patient's most recent creatinines are elevated to 2.54-2.96. Patient has a history of CKD and was previously following with Dr. Garber at [facility], however, last appointment available in [facility] is from 04/24/2023. Renal following. Likely ATN in setting of shock on presentation. Improving. Nephro consulted, appreciate recs: - Daily BMP - Ordered CPK to rule out rhabdo - 1.5L fluid restriction Assessment & Plan (08/18/2024 3:41 PM EDT): Cr elevated to 3.38 with an eGFR of 14 on admission. Per request from lab at [facility], patient's most recent creatinines are elevated to 2.54-2.96. Patient has a history of CKD and was previously following with Dr. Garber at [facility], however, last appointment available in [facility] is from 04/24/2023. Renal following. Likely ATN in setting of shock on presentation. Improving. Nephro consulted, appreciate recs: - Daily BMP - Ordered CPK to rule out rhabdo - 1.5L fluid restriction Assessment & Plan (08/17/2024 2:57 PM EDT): Cr elevated to 3.38 with an eGFR of 14 on admission. Per request from lab at [facility], patient's most recent creatinines are elevated to 2.54-2.96. Patient has a history of CKD and was previously following with Dr. Garber at [facility], however, last appointment available in [facility] is from 04/24/2023. Renal following. Likely ATN in setting of shock on presentation. Improving. Nephro consulted, appreciate recs: - Daily BMP - Ordered CPK to rule out rhabdo - 1.5L fluid restriction Assessment & Plan (08/16/2024 1:31 PM EDT): Cr elevated to 3.38 with an eGFR of 14 on admission. Per request from lab at [facility], patient's most recent creatinines are elevated to 2.54-2.96. Patient has a history of CKD and was previously following with Dr. Garber at [facility], however, last appointment available in [facility] is from 04/24/2023. Renal following. Likely ATN in setting of shock on presentation. Improving. Nephro consulted, appreciate recs: - Daily BMP - Ordered CPK to rule out rhabdo - 1.5L fluid restriction Assessment & Plan (08/15/2024 2:33 PM EDT): Cr elevated to 3.38 with an eGFR of 14 on admission. Per request from lab at [facility], patient's most recent creatinines are elevated to 2.54-2.96. Patient has a history of CKD and was previously following with Dr. Garber at [facility], however, last appointment available in [facility] is from 04/24/2023. Renal following. Likely ATN in setting of shock on presentation. Improving. - Daily BMP Assessment & Plan (08/15/2024 12:34 PM EDT): Cr elevated to 3.38 with an eGFR of 14 on admission. Per request from lab at [facility], patient's most recent creatinines are elevated to 2.54-2.96. Patient has a history of CKD and was previously following with Dr. Garber at [facility], however, last appointment available in [facility] is from 04/24/2023. Renal following. Likely ATN in setting of shock on presentation. Improving. - Daily BMP Assessment & Plan (08/14/2024 8:36 PM EDT): Cr elevated to 3.38 with an eGFR of 14 on admission. Per request from lab at [facility], patient's most recent creatinines are elevated to 2.54-2.96. Patient has a history of CKD and was previously following with Dr. Garber at [facility], however, last appointment available in [facility] is from 04/24/2023. Renal following. Likely ATN in setting of shock on presentation Assessment & Plan (2024 2:30 PM EDT): Cr elevated to 3.38 with an eGFR of 14 on admission. Per request from lab at [facility], patient's most recent creatinines are elevated to 2.54-2.96. Patient has a history of CKD and was previously following with Dr. Garber at [facility], however, last appointment available in [facility] is from 04/24/2023. Renal following. - Patient will require close monitoring as well especially in the setting of hypothermia and septic shock on admission causing ischemic liver injury and worsening SUSAN. - Evidence of secondary hyperparathyroidism, renal is following Assessment & Plan (08/12/2024 7:50 PM EDT): Cr elevated to 3.38 with an eGFR of 14 on admission. Per request from lab at [facility], patient's most recent creatinines are elevated to 2.54-2.96. Patient has a history of CKD and was previously following with Dr. Garber at [facility], however, last appointment available in [facility] is from 04/24/2023. Renal following. - [...] on admission. Per request from lab at [facility], patient's most recent creatinines are elevated to 2.54-2.96. Patient has a history of CKD and was previously following with Dr. Garber at [facility], however, last appointment available in [facility] is from 04/24/2023. Renal following. - [...] on admission. Per request from lab at [facility], patient's most recent creatinines are elevated to 2.54-2.96. Patient has a history of CKD and was previously following with Dr. Garber at [facility], however, last appointment available in [facility] is from 04/24/2023. Renal following. - Patient will require close monitoring as well especially in the setting of hypothermia and septic shock on admission causing ischemic liver injury and worsening SUSAN. - Strict I/O Assessment & Plan (08/09/2024 5:57 PM EDT): Cr elevated to 3.38 with an eGFR of 14 on admission. Per request from lab at [facility], patient's most recent creatinines are elevated to 2.54-2.96. Patient has a history of CKD and was previously following with Dr. Garber at [facility], however, last appointment available in [facility] is from 04/24/2023. - Nephro following: [...] Years Used Date Smoking Tobacco: Never Assessed [facility] Utilities Answer Date Recorded In the past 12 months has [employer], [employer], oil, or water [employer] threatened to shut off services in your [...] Not on file Procedures * Due to [place] [employer] law, this organization might not be sharing [...] to Health Maintenance Results * Due to [place] [employer] law, this organization might not be sharing negative HIV tests. * (ABNORMAL) CBC Auto Differential (08/20/2024 6:44 AM EDT) WBC 6.2 3.8 - 10.8 10*3/uL 08/20/2024 7:40 AM EDT [facility] RBC 3.24(L) 3.80 - 5.10 10*6/uL 08/20/2024 7:40 AM EDT [facility] Hemoglobin 7.7(L) 11.7 - 15.5 g/dL 08/20/2024 7:40 AM EDT [facility] Hematocrit 26.1(L) 35.0 - 45.0 % 08/20/2024 7:40 AM EDT [facility] MCV 80.6 80.0 - 100.0 fL 08/20/2024 7:40 AM EDT [facility] MCH 23.8(L) 27.0 - 33.0 pg 08/20/2024 7:40 AM EDT [facility] MCHC 29.5(L) 32.0 - 36.0 g/dL 08/20/2024 7:40 AM EDT [facility] [employer] [facility] RDW 16.9(H) 11.0 - 15.0 % 08/20/2024 7:40 AM EDT [facility] [employer] [facility] Platelets 196 140 - 400 10*3/uL 08/20/2024 7:40 AM EDT [facility] MPV 10.9 7.5 - 12.5 fL 08/20/2024 7:40 AM EDT [facility] Neutrophil % 65.4 % 08/20/2024 7:40 AM EDT [facility] Immature Grans % 0.5 0.0 - 0.9 % 08/20/2024 7:40 AM EDT [facility] Lymphocyte % 20.8 % 08/20/2024 7:40 AM EDT [facility] Monocyte % 10.2 % 08/20/2024 7:40 AM EDT [facility] Eosinophil % 2.4 % 08/20/2024 7:40 AM EDT [facility] Basophil % 0.7 % 08/20/2024 7:40 AM EDT [employer] Neutrophil # 4.02 1.50 - 7.80 10*3/uL 08/20/2024 7:40 AM EDT [facility] Immature Grans # 0.03 <=0.03 10*3/uL 08/20/2024 7:40 AM EDT [facility] Lymphocyte # 1.30 0.85 - 3.90 10*3/uL 08/20/2024 7:40 AM EDT [facility] [employer] [facility] Monocyte # 0.60 0.20 - 0.95 10*3/uL 08/20/2024 7:40 AM EDT [facility] [employer] [facility] Eosinophil # 0.20 0.02 - 0.50 10*3/uL 08/20/2024 7:40 AM EDT [facility] Basophil # <0.03 0.00 - 0.20 10*3/uL 08/20/2024 7:40 AM EDT [facility] [employer] [facility] nRBC % 0.0 /100 WBCs 08/20/2024 7:40 AM EDT [facility] [employer] [facility] nRBC # <0.01 <0.01 10*3/uL 08/20/2024 7:40 AM EDT [facility]LAEagle[facility] Blood Structure of peripheral vein / Unknown Venipuncture / Unknown 08/20/2024 6:44 AM EDT 08/20/2024 7:26 AM EDT us Jared Bell MD PhD LAB BLOOD ORDERABLES Final Resu lt [facility] [address] [place] [address], * (ABNORMAL) Basic Metabolic Panel (08/20/2024 6:44 AM EDT) NA 144 135 - 145 mmol/L 08/20/2024 8:21 AM EDT [employer] K 4.7 3.5 - 5.3 mmol/L 08/20/2024 8:21 AM EDT [facility] Cl 111(H) 98 - 107 mmol/L 08/20/2024 8:21 AM EDT [facility] CO2 23 22 - 32 mmol/L 08/20/2024 8:21 AM EDT [employer] BUN 42(H) 7 - 23 mg/dL 08/20/2024 8:21 AM EDT [facility] Creatinine 2.36(H) 0.50 - 1.20 mg/dL 08/20/2024 8:21 AM EDT [facility] Glucose 86 65 - 99 mg/dL 08/20/2024 8:21 AM EDT [facility]VAKNight [facility] Calcium 9.1 8.6 - 10.5 mg/dL 08/20/2024 8:21 AM EDT [facility] Anion Gap 10 5 - 15 08/20/2024 8:21 AM EDT [employer] eGFR 22(L) >=60 mL/min/1 .73m2 08/20/2024 8:21 AM EDT [facility] Comment:The estimated glomer ular [...] PhD LAB BLOOD ORDERABLES Final Resu lt [facility] [address] [place] [address], [place] * (ABNORMAL) PTH, Intact and Calcium (08/12/2024 6:51 AM EDT) Parathyroid Hormone, Intact 203(H) 16 - 77 pg/mL 2024 4:01 AM EDT [facility] Comment: Interpretive Guide ?Intact PTH ? Calcium ? ------- Normal Parathyroid ?Normal ? Normal Hypoparathyroidism ?Low or Low Normal ?Low Hyperparathyroidism ?? Primary ?Normal or High ? High ?? Secondary ?High ? Normal or Low ?? Tertiary ? High ? High Non-Parathyroid ?? Hypercalcemia ?Low or Low Normal ?High Calcium 8.2(L) 8.6 - 10.4 mg/dL 2024 4:01 AM EDT [employer] [facility] Blood Structure of peripheral vein / Unknown Venipuncture / Unknown 08/12/2024 6:51 AM EDT 08/12/2024 7:38 AM EDT Narrative [facility] - 2024 4:01 AM EDT [facility] Received Date: us Brigitte Duke MD LAB BLOOD ORDERABLES Final Resul t [facility] [address], [place] [address], [place] [phone] [employer] [facility] [address], [place] [address], [place] [phone] * Phosphorus (08/12/2024 6:51 AM EDT) Phosphorus 3.7 2.5 - 4.5 mg/dL 08/12/2024 9:17 AM EDT [facility] Blood Structure of peripheral vein / Unknown Venipuncture / Unknown 08/12/2024 6:51 AM EDT 08/12/2024 7:38 AM EDT us Brigitte Duke MD LAB BLOOD ORDERABLES Final Resul t [facility] [address] [place] [address], * Hepatitis Panel, Acute (08/09/2024 10:04 AM EDT) Pathologist [facility] Hepatitis A IgM NON-REACT TRINH NON-REACT TRINH 08/09/2024 8:26 PM EDT [employer] [facility] Hepatitis B Surface Antigen NON-REACT TRINH NON-REACT TRINH 08/09/2024 8:26 PM EDT [employer] [facility] Hepatitis B Core Antibody NON-REACT TRINH NON-REACT TRINH 08/09/2024 8:26 PM EDT [employer] [facility] Hepatitis C Antibody NON-REACT TRINH NON-REACT TRINH 08/09/2024 8:26 PM EDT [employer] [facility] Comment: HCV antibody was non-reactive. There is no laboratory evidence of HCV infection. In most cases, no further action is required. However, if recent HCV exposure is suspected, a test for HCV RNA (test code 76541) is suggested. For additional information please refer to http://education.[employer].com.[employer]/faq/KYY33m6 (This link is being provided for informational/ educational purposes only.) For additional information, please refer to http://[email or web address]/faq/ECN798 (This link is being provided for informational/ educational purposes only.) Blood Structure of peripheral vein / Unknown Venipuncture / Unknown 08/09/2024 10:04 AM EDT 08/09/2024 10:12 AM EDT Narrative [facility] - 08/09/2024 8:26 PM EDT [facility] Received Date: us April Ann MD LAB BLOOD ORDERABLES Final Resul t [facility] [address], [place] [address], [place] [phone] [facility] [address], [place] [address], [place] [phone] from Last 3 Months or Most Recently Relevant to Health Maintenance Insurance [facility] FEDERAL MEDICARE Advance Directives Documents on File Type Date Recorded 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
--- OUTSIDE RECORDS SUMMARY | 2025-01-28 20:48 | XMS_ITS | Encounter Summary ---
Author Organization [facility] Address [address] [facility] [address] [place] [address] Phone Care Team Providers Care Professional Organizer Name Role Phone Rod Wakefield MD Primary Care Provider + Encounter Details Date Type Department Care Team (Late st Contact Info) Description 03/08/2021 Orders Only [facility] [address] [place] [address] Oneil Garber MD [id number] [facility] [address] [place] [id number] Renal artery stenosis (HCC) Social History Tobacco [...] (HCC) documented in this encounter Care Teams Professional Organizer Relationship Specialty Start Date End Date Rod Wakefield MD [address] [place], [place] [phone] PCP - General Internal Medicine 05/28/21 documented as of this encounter
--- NOTE | 2025-01-28 21:51 | ED_ITS ---
HPI - Nausea/Vomiting/Diarrhea General Chief complaint: Nausea/Vomiting/Diarrhea Stated complaint: flu like symptoms Time Seen by Provider: 01/28/25 21:35 Source: patient Mode of arrival: EMS Limitations: no limitations History of Present Illness ED Provider: HPI Narrative: Patient's history of atrial fibrillation on amiodarone and metoprolol been feeling weak for last 3 days had few times of diarrhea nausea unable to eat much feeling short of breath on ambulation patient does not feel atrial fibrillation mostly when she gets atrial fibrillation she feels short of breath on arrival patient's heart rate been fluctuating between 120 and 130 patient is supposed to get ablation next month denies any urinary symptoms no fever no chills Related Data Home Medications ?Medication ?Instructions ?Recorded ?Confirmed paroxetine HCl 40 mg tablet 40 mg PO BEDTIME 10/03/20 11/11/24 cholecalciferol (vitamin D3) 25 25 mcg PO DAILY 12/20/20 11/11/24 mcg (1,000 unit) tablet (Vitamin D3) cyanocobalamin (vitamin B-12) 1,000 mcg PO DAILY 12/20/20 11/11/24 1,000 mcg tablet (Vitamin B-12) melatonin 10 mg tablet 10 mg PO BEDTIME Insomnia 01/13/23 11/11/24 levothyroxine 50 mcg tablet 50 mcg PO DAILY@0600 09/02/23 11/11/24 (Synthroid) pantoprazole 40 mg tablet,delayed 40 mg PO DAILY@0630 03/15/24 11/11/24 release acetaminophen 500 mg tablet 1,000 mg PO DAILY PRN Pain 04/21/24 11/11/24 amiodarone 200 mg tablet 200 mg PO DAILY 04/21/24 11/11/24 metoprolol succinate 25 mg 12.5 mg PO DAILY 09/16/24 11/11/24 tablet,extended release 24 hr Previous Rx's ?Medication ?Instructions ?Recorded atorvastatin 80 mg tablet 80 mg PO BEDTIME #90 tabs 07/28/23 apixaban 5 mg tablet (Eliquis) 5 mg PO BID #180 tabs 02/05/24 furosemide 20 mg tablet 40 mg PO DAILY 90 days #180 tabs 08/23/24 clopidogrel 75 mg tablet 75 mg PO DAILY #90 tabs 10/12/24 fluticasone 113 mcg-salmeterol 14 1 inh inhalation Q12H copd 30 days 11/01/24 mcg/actuation breath activated #1 ea powdr terazosin 1 mg capsule 1 mg PO BEDTIME 90 days #90 caps 11/11/24 Allergies Allergy/AdvReac Type Severity Reaction Status Date / Time codeine [Codeine] AdvReac Mild vomiting Verified 01/28/25 19:11 Review of Systems 2 Review of Systems: Yes all other systems are reviewed and are negative [facility] Past Medical History Medical History PAF (paroxysmal atrial fibrillation) Recurrent urinary tract infection Bilateral cataracts History of cardioversion Myocardial infarction Arthritis Hx of transfusion of packed red blood cells Thyroid disease GERD (gastroesophageal reflux disease) CKD (chronic kidney disease) On anticoagulant therapy Osteoarthritis of left hip Atrial fibrillation UTI (urinary tract infection) History of smoking 30 or more pack years Atrial fibrillation with rapid ventricular response Left renal artery stenosis Personal history of nicotine dependence Cardiomyopathy Essential hypertension Atherosclerotic cardiovascular disease Asymmetric blood pressures Acute on chronic systolic (congestive) heart failure CHF (congestive heart failure) CAD (coronary artery disease) Multiple sclerosis Pulmonary nodules COPD (chronic obstructive pulmonary disease) Peripheral arterial occlusive disease Surgical History 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 Mother No problems noted. Brother Diabetes Social History Social History Household Members: None Housing[facility] Are you a primary residential care facility manager to a significant other at home: No Do you presently have visiting nurse or other home services: No Alcohol intake: never Comment: aware of trip hazard Patient Tobacco Use Status: Former Tobacco user Tobacco use type: Cigarette Years Smoked: 50 Smoked in Last 30 Days: No e-Cigarette/Vaping Use: Never Used Second Hand Smoke Exposure: No Use of substances other than those prescribed or required for medical reasons: No Advance Directives: Yes Advance Directives on File: Yes Advance Directives Date on File: 04/20/24 service: No Current occupational status: retired Cognitive needs: Yes (cane) Hearing needs: No Vision needs: Yes (reading glasses) Physical Exam 2 Vital Signs: Vital Signs: Last Vital Signs Temp 97.8 F 01/29/25 01:36 Pulse 86 01/29/25 01:36 Resp 18 01/29/25 01:36 BP 116/66 01/29/25 01:36 Pulse Ox 96 01/29/25 01:36 O2 Del Method Room Air 01/29/25 01:36 BMI result Body Mass Index 23.1 Appearance: Alert. Oriented X3. No acute distress. Eyes: PERRLA, No Nystagmus ENT: Pharynx normal. Oral Mucosa moist Neck: Normal inspection. Neck supple. CVS: Irregularly irregular heart rate. Pulses normal. Respiratory: No respiratory distress. Equal air entry bilateral, no wheezing/rales/rhonchi Abdomen: Soft and nontender. Bowel sounds are present, no mass palpable, no CVA tenderness Skin: Skin warm and dry. Normal skin color. Normal skin turgor. Extremities: No lower extremity edema. No calf tenderness Neuro: Oriented X 3. No motor deficit. No sensory deficit.No cerebellar signs , cranial nerves II-XII intact Medications Administered Discontinued Medications Generic Name Dose Route Start Last Admin Trade Name Freq PRN Reason Stop Dose Admin Acetaminophen 650 mg 01/28/25 23:40 01/28/25 23:50 Acetaminophen 325 Mg Tablet PO 01/28/25 23:41 650 mg ONCE ONE Administration Apixaban 5 mg 01/28/25 22:09 01/28/25 22:27 Apixaban 5 Mg Tablet PO 01/28/25 22:10 5 mg ONCE ONE Administration Diltiazem HCl 10 mg 01/28/25 22:09 01/28/25 22:27 Diltiazem Hcl 50 Mg/10 Ml Vial IVPUSH 01/28/25 22:10 10 mg STAT STA Administration Sodium Chloride 1,000 mls @ 999 mls/hr 01/28/25 22:09 01/28/25 23:59 Ns IV 01/28/25 23:09 Infused .Q1H1M ONE Infusion Sodium Chloride 1,000 mls @ 999 mls/hr 01/29/25 01:38 01/29/25 01:53 Ns IV 01/29/25 02:38 0 mls/hr .Q1H1M ONE Infusion Medical Decision Making Medical Decision Making [facility] Narrative: Patient with heart failure with preserved EF, paroxysmal AFib, hypertension, hyperlipidemia, COPD, PVD, CAD with stents in left circumflex and RCA, comes with weakness noted to be in rapid ventricular rate was given 10 mg of Cardizem heart rate been controlled less than 100 at this time patient is still feeling weak was given IV fluids will check the UA ambulate due orthostatics Patient's significantly orthostatic hypotension heart rate increased to 120 on standing when lays down heart rate is in 90s will admit patient for further evaluation patient does not aware of AFib just feel short of breath off and on unclear for how long patient has AFib at this time patient also does have UTI will start on Rocephin Differential Diagnosis Differential Diagnoses: The differential diagnosis associated with the presentation includes AFib/rapid ventricular rate/CHF Admission/Observation Consideration of admission/observation: Escalation of care including admission/observation considered Consult Healthcare Provider Management of the patient was discussed with: Hospitalist Lab Data [facility] Lab Attestation statement: I reviewed the patient's lab results. 01/28/25 19:48 01/28/25 19:48 Labs: Lab Results 01/28/25 01/29/25 Range/Units 19:48 01:26 WBC 8.1 (4.8-10.8) X10*3/uL RBC 5.13 D (4.20-5.50) X10*6/uL Hgb 12.2 D (12.0-16.0) g/dl Hct 38.1 D (37.0-47.0) % MCV 74.3 L (80.0-98.0) fL MCH 23.8 L (27.0-33.0) pg MCHC 32.0 (31.0-35.0) g/dl RDW 17.2 H (11.0-16.0) % Plt Count 354 (160-400) X10*3/uL MPV 9.4 (9.4-12.3) fL Immature Gran % (Auto) 0.4 (0.0-0.4) % Neut % (Auto) 77.1 H (45-73) % Lymph % (Auto) 14.1 L (20-40) % [place] % (Auto) 6.8 (2-11) % Eos % (Auto) 1.0 (0-4) % Baso % (Auto) 0.6 (0-2) % Lymph # (Auto) 1.1 L (1.2-4.9) X10*3/uL [place] # (Auto) 0.6 (0.1-1.2) X10*3/uL Eos # (Auto) 0.1 (0.0-0.4) X10*3/uL Baso # (Auto) 0.1 (0.0-0.2) X10*3/uL Abs Immat Gran (auto) 0.03 (0.00-0.03) X10*3/uL Absolute Neuts (auto) 6.3 (2.0-8.3) x10*3/uL Absolute Nucleated RBC 0.000 (0.0-0.012) X10*3/uL Nucleated RBC % (auto) 0.0 (0.0-0.2) /100WBC Sodium 141 (135-145) mmol/L Potassium 3.8 D (3.3-5.1) mmol/L Chloride 102 (96-108) mmol/L Carbon Dioxide 27 (22-29) mmol/L Anion Gap 16 (12-20) BUN 31 H (9-16) mg/dL Creatinine 2.09 H (0.5-1.4) mg/dL Estim Creat Clear Calc 23.0 Estimated GFR 23 Random Glucose 99 (60-115) mg/dL Calcium 9.8 D (8.4-10.2) mg/dL Total Bilirubin 0.4 (0.0-1.0) mg/dL AST 22 (5-31) U/L ALT 17 (0-31) U/L Alkaline Phosphatase 117 (39-117) U/L Troponin I High Sens 14.0 (<3.5-17.0) ng/L Total Protein 7.6 (6.5-8.0) g/dL Albumin 3.5 (3.5-5.0) g/dL Urine Color Yellow Urine Appearance Cloudy Urine pH 6.0 (5.0-9.0) Ur Specific [place] 1.010 (1.005-1.025) Urine Protein Trace (Neg-Trace) mg/dL Urine Glucose (UA) Negative (Negative) mg/dL Urine Ketones Negative (Negative) mg/dL Urine Blood Negative (Negative) Urine Nitrite Negative (Negative) Ur Leukocyte Esterase Moderate (2+) H (Negative) Urine RBC 0-2 (0-2) /HPF Urine WBC 21-50 H (0-5) /HPF Ur Squamous Epith Cells 0-2 (0-2) /HPF Urine Bacteria 4+ (None Seen) Hyaline Casts 0-2 (0-2) /LPF Influenza Type A (PCR) NEGATIVE (Negative) Influenza Type B (PCR) NEGATIVE (Negative) RSV RNA Qual (PCR) NEGATIVE (Negative) SARS-CoV-2 RNA (RT-PCR) NEGATIVE (Negative) Independent Interpretation I performed an independent interpretation of an: EKG Interpretation: Atrial fibrillation with rapid ventricular rate of 103 nonspecific STT wave changes no acute ischemia Discharge Plan Discharge Clinical Impression: Atrial fibrillation with rapid ventricular response, Urinary tract infection Patient Disposition: Admitted As Inpatient Print Language: Portuguese
[2025-01-28 22:25] VITALS: BP 97/50; PULSE 95; RESP 15; TEMP 36.6; O2SAT 100
[2025-01-28] MEDS: 0.9 % Sodium Chloride 1,000 ML 999 ML IV (22:26)
[2025-01-28 22:27] VITALS: BP 97/50; PULSE 97
[2025-01-28] MEDS: Apixaban 5 MG TABLET PO (22:27)
[2025-01-28] MEDS: dilTIAZem HCL 50 MG/10 ML VIAL 10 MG IVPUSH (22:27)
[2025-01-28 23:49] VITALS: BP 95/63; PULSE 81; RESP 11; TEMP 36.8; O2SAT 95
[2025-01-28] MEDS: Acetaminophen 325 MG TABLET 650 MG PO (23:50)
[2025-01-29] VITALS (12 sets, daily range): BP systolic 79–142; BP diastolic 48–78; PULSE 78–119; RESP 15–18; TEMP 36.6–37.1; O2SAT 95–99; BMI 24.2
[2025-01-29 01:31] LABS: Appearance Urine Cloudy; Color Urine Yellow; Glucose Urine UA Negative (Negative); Leukocyte Esterase Urine Moderate (2+) (Negative); Nitrite Urine Negative (Negative); UMIC TRIGGER UACC YES; Urine Blood Negative (Negative); Urine Ketones Negative (Negative); Urine Protein Trace mg/dL (Neg-Trace)
[2025-01-29 01:39] LABS: Bacteria Urine 4+ (None Seen); Hyaline Casts Urine 0-2 /LPF (0-2); RBC Urine 0-2 /HPF (0-2); Squamous Epithelial Cell Urine 0-2 /HPF (0-2); UACC Culture Trigger YES; WBC Urine 21-50 /HPF (0-5)
[2025-01-29] MEDS: 0.9 % Sodium Chloride 1,000 ML 999 ML IV (01:46)
[2025-01-29 02:31] LABS: INTERNATIONAL NORM RATIO 2.5 (0.9-1.1); Prothrombin Time 28.7 SEC (10.9-12.4)
--- NOTE | 2025-01-29 02:32 | PM.IMHP ---
History of Present Illness Date of Service: 01/29/25 Attending physician on admission: Ashish Jones Chief Complaint: weakness, diarrhea Patient is a 69-year-old female with past medical history multiple sclerosis remitting relapsing not currently on injectables, COPD not currently on home O2, chronic kidney disease stage 4, hypothyroidism, urinary tract infection, urinary retention, atrial fibrillation on anticoagulation, heart failure with reduced ejection fracture, COVID, cataract repair, peripheral arterial disease, non STEMI, left hip replacement was taken to the emergency department for profound weakness after having 3 days of diarrhea and poor appetite. Patient was found to be in AFib RVR and received 10 mg of Cardizem IV x1. Patient was orthostatic after this treatment. Patient did not have any syncope. Patient is currently receiving the 2nd of 2 bags of IV fluid at 100 mL/hour. Patient's renal function currently at baseline noting history of chronic kidney disease stage 4. Liver function testing within normal limits. BNP and lactic acid pending. UA positive for moderate leukocyte esterase +2, white blood cells 21-50, 4+ bacteria. Patient was started on ceftriaxone. Blood cultures were obtained. Stool panel was also sent along with C diff noting patient's diarrhea. All viral studies were negative. Chest x-ray is pending. Patient's most important concern was being admitted under observation as she does not want to receive a bill for hospitalization due to her insurance. Spoke with patient about her living situation and the fact that she lives alone and has been having more falls secondary to her multiple sclerosis but denies any recent flares. Patient now is more receptive to learning more about home care and case management referral has been placed. Patient no longer drives and is considered homebound. Patient is being admitted under observation status for urinary tract infection, AFib with RVR and rate is currently controlled, as well as weakness and persistent diarrhea and correlating dehydration. Patient does not meet the criteria for SIRS or sepsis. Review of Systems Review of Systems: Patient currently denies any chest pain, shortness of breath at rest but reports profound fatigue with recent falls with no injury. Patient denies headaches, visual changes, abdominal pain, nausea or vomiting. Patient states the diarrhea persist. Patient denies any recent travel. Patient states appetite has been poor and fluid intake has also been poor over the last 3 days. Patient denies any loss of consciousness or syncopal episodes at home. Patient uses a walker to ambulate. Currently patient has no help in the home and has all of her shopping needs delivered directly to her apartment. [facility] Medical History (Updated 01/29/25 @ 03:10 by DAVID Voss) PAF (paroxysmal atrial fibrillation) Recurrent urinary tract infection Bilateral cataracts History of cardioversion Myocardial infarction Arthritis Hx of transfusion of packed red blood cells Thyroid disease GERD (gastroesophageal reflux disease) CKD (chronic kidney disease) On anticoagulant therapy Osteoarthritis of left hip Atrial fibrillation UTI (urinary tract infection) History of smoking 30 or more pack years Atrial fibrillation with rapid ventricular response Left renal artery stenosis Personal history of nicotine dependence Cardiomyopathy Essential hypertension Atherosclerotic cardiovascular disease Asymmetric blood pressures Acute on chronic systolic (congestive) heart failure CHF (congestive heart failure) CAD (coronary artery disease) Multiple sclerosis Pulmonary nodules COPD (chronic obstructive pulmonary disease) Peripheral arterial occlusive disease Family History Father No problems noted. Mother No problems noted. Brother Diabetes Surgical History History of total left hip replacement (03/30/24) Hip joint replacement status History of endoscopy History of colonoscopy History of heart artery stent (~2018) Status post angioplasty with stent (~09/2018) S/P insertion of iliac artery stent (~02/2019) S/P cardiac cath (~12/2020) History of cholecystectomy (~02/2009) Social History Household Members: None Housing: House Housing Other:: Sent in from [place] Are you a primary medication care manager to a significant other at home: No Do you presently have visiting nurse or other home services: No Alcohol intake: never Comment: aware of trip hazard Patient Tobacco Use Status: Former Tobacco user Tobacco use type: Cigarette Years Smoked: 50 Smoked in Last 30 Days: No e-Cigarette/Vaping Use: Never Used Second Hand Smoke Exposure: No Use of substances other than those prescribed or required for medical reasons: No Advance Directives: Yes Advance Directives on File: Yes Advance Directives Date on File: 04/20/24 Nutrition Risks: Dental problems service: No Current occupational status: retired Cognitive needs: Yes (cane) Hearing needs: No Vision needs: Yes (reading glasses) Meds Allergies Allergy/AdvReac Type Severity Reaction Status Date / Time codeine [Codeine] AdvReac Mild vomiting Verified 01/28/25 19:11 Active Medications: Current Medications Acetaminophen (Acetaminophen 325 Mg Tablet) 650 mg PO Q6H PRN PRN Reason: Pain, Mild 1-3,fever,headache Albuterol/Ipratropium (Albuterol/Iprat 2.5/0.5mg 3 Ml Ampul.Neb) 3 ml INHALE Q4H PRN PRN Reason: Shortness of Breath/Wheezing Calcium Carbonate (Calcium Carbonate 750 Mg Tab.Chew) 750 mg PO Q4H PRN PRN Reason: Heartburn Ceftriaxone Sodium (Ceftriaxone Sodium 1 Gm Vial) 1 gm IVPUSH Q24H JOSE Magnesium Hydroxide (Milk Of Magnesia 30 Ml Oral.Susp) 30 ml PO DAILY PRN PRN Reason: Constipation Melatonin (Melatonin 3 Mg Tablet) 6 mg PO BEDTIME PRN PRN Reason: Insomnia Ondansetron HCl (Ondansetron Hcl 4 Mg/2 Ml Vial) 4 mg IVPUSH Q8H PRN PRN Reason: Nausea and Vomiting Sodium Chloride (0.9 % Sodium Chloride Flush 3 Ml Syringe) 3 ml IVFLUSH QSHIFT [facility] Home Medications ?Medication ?Instructions ?Recorded ?Confirmed ?Last Taken ?Type paroxetine HCl 40 mg tablet 40 mg PO BEDTIME 10/03/20 11/11/24 07/21/24 History cholecalciferol (vitamin D3) 25 25 mcg PO DAILY 12/20/20 11/11/24 07/22/24 History mcg (1,000 unit) tablet (Vitamin D3) cyanocobalamin (vitamin B-12) 1,000 mcg PO DAILY 12/20/20 11/11/24 07/22/24 History 1,000 mcg tablet (Vitamin B-12) melatonin 10 mg tablet 10 mg PO BEDTIME Insomnia 01/13/23 11/11/24 07/21/24 History levothyroxine 50 mcg tablet 50 mcg PO DAILY@0600 09/02/23 11/11/24 10/22/24 History (Synthroid) pantoprazole 40 mg tablet,delayed 40 mg PO DAILY@0630 03/15/24 11/11/24 07/22/24 History release acetaminophen 500 mg tablet 1,000 mg PO DAILY PRN Pain 04/21/24 11/11/24 Unknown History amiodarone 200 mg tablet 200 mg PO DAILY 04/21/24 11/11/24 10/22/24 History metoprolol succinate 25 mg 12.5 mg PO DAILY 09/16/24 11/11/24 10/22/24 History tablet,extended release 24 hr Physical Exam Vital Signs and Narrative: Vital Signs: Last Vital Signs Temp 97.8 F 01/29/25 01:36 Pulse 86 01/29/25 01:36 Resp 18 01/29/25 01:36 BP 116/66 01/29/25 01:36 Pulse Ox 96 01/29/25 01:36 O2 Del Method Room Air 01/29/25 01:36 BMI result Body Mass Index 23.1 Alert and orientated X3, able to give good history. Neuro: CN II-X11 intact, no deficits, visual acuity intact EYES: PERRLA, EOM intact, conjunctiva pink ENT: hearing intact, no issues with swallowing, uvula midline, lips dry, nares patent no epistaxis Cardiac: S1 S2 irregular, mitral valve murmur II/ , no JVD, no edema in Lower ext Pulmonary: lungs diminished bilateral Abdominal: BS active in all 4 quadrants, no guarding, tenderness, rebounding MSK: strength 4/5 upper and 3/5 lower extremities : no CVA tenderness no bladder distension Extremities: no edema in lower extremities, PT and DP pulses palpable +2 Psych: mood stable, judgement and insight good patient expressed worry over hospital bill SKin: Intact in the buttocks, sacral and perineal area. No current open wounds found Results Labs 01/28/25 19:48 01/28/25 19:48 Labs: Laboratory Results - last 24 hr 01/28/25 01/29/25 19:48 01:26 MCV 74.3 L MCH 23.8 L MCHC 32.0 RDW 17.2 H Plt Count 354 MPV 9.4 Immature Gran % (Auto) 0.4 Neut % (Auto) 77.1 H Lymph % (Auto) 14.1 L [place] % (Auto) 6.8 Eos % (Auto) 1.0 Baso % (Auto) 0.6 Lymph # (Auto) 1.1 L Mill[place] # (Auto) 0.6 Eos # (Auto) 0.1 Baso # (Auto) 0.1 Abs Immat Gran (auto) 0.03 Absolute Neuts (auto) 6.3 Absolute Nucleated RBC 0.000 Nucleated RBC % (auto) 0.0 Anion Gap 16 Estim Creat Clear Calc 23.0 Estimated GFR 23 Random Glucose 99 Calcium 9.8 D Total Bilirubin 0.4 AST 22 ALT 17 Alkaline Phosphatase 117 Total Protein 7.6 Albumin 3.5 Urine Color Yellow Urine Appearance Cloudy Urine pH 6.0 Ur Specific [place] 1.010 Urine Protein Trace Urine Glucose (UA) Negative Urine Ketones Negative Urine Blood Negative Urine Nitrite Negative Ur Leukocyte Esterase Moderate (2+) H Urine RBC 0-2 Urine WBC 21-50 H Ur Squamous Epith Cells 0-2 Urine Bacteria 4+ Hyaline Casts 0-2 Influenza Type A (PCR) NEGATIVE Influenza Type B (PCR) NEGATIVE RSV RNA Qual (PCR) NEGATIVE SARS-CoV-2 RNA (RT-PCR) NEGATIVE ECG Attestation: I personally reviewed and interpreted this ECG as follows: (AFib RVR) Imaging Radiologist's Impressions: CXR Findings: The lungs are clear. Heart size is normal. No acute fracture. IMPRESSION: No findings of heart failure. Assessment and Plan (1) Atrial fibrillation with rapid ventricular response: Status: Acute (2) Urinary tract infection: Qualifiers: Hematuria presence: with hematuria Urinary tract infection type: acute cystitis Qualified Code(s): N30.01 - Acute cystitis with hematuria Status: Acute (3) Diarrhea: Qualifiers: Diarrhea type: unspecified type Qualified Code(s): R19.7 - Diarrhea, unspecified Status: Acute (4) Generalized weakness: Status: Acute (5) Multiple sclerosis, relapsing-remitting: Status: Acute (6) CKD (chronic kidney disease): Qualifiers: Chronic kidney disease stage: stage 4 (GFR 15-29) Qualified Code(s): N18.4 - Chronic kidney disease, stage 4 (severe) Status: Acute (7) Thyroid disease: Status: Acute (8) COPD (chronic obstructive pulmonary disease): Qualifiers: COPD type: emphysema Emphysema type: other Qualified Code(s): J43.8 - Other emphysema Status: Acute (9) Orthostatic hypotension: Status: Acute (10) HFrEF (heart failure with reduced ejection fraction): Status: Acute Plan Patient is a 69-year-old female with past medical history multiple sclerosis remitting relapsing not currently on injectables, COPD not currently on home O2, chronic kidney disease stage 4, hypothyroidism, urinary tract infection, urinary retention, atrial fibrillation on anticoagulation, heart failure with reduced ejection fracture, COVID, cataract repair, peripheral arterial disease, non STEMI, left hip replacement. Patient is being admitted under observation for urinary tract infection, AFib RVR as well as weakness, diarrhea with associated dehydration. Patient does not meet the criteria for sepsis or SIRS. 1. Atrial fibrillation with rapid ventricular response Rates were in the 150s, patient alert and orientated no complaints of chest pain After 1 dose of Cardizem 10 mg IV, patient rate controlled but experienced orthostatic hypotension. IV fluids initiated at low rate due to history of CHF. Chest x-ray is negative for any signs of CHF. Continuing amiodarone (LFTs are WNL) and metoprolol and apixaban 2. Urinary tract infection/ hx of urinary retention Patient has chronic issues with urinary tract infection, follows with Dr. Ramirez and was started on terazosin back in September 2024 due to severe urinary retention. Patient no longer has chronic Hou placement. This stopped September of 2024 ? neurogenic bladder secondary to MS Patient is started on ceftriaxone IV 1GM daily Follow urine culture Bladder scan Qshift with parameters to call provider 3. Diarrhea and associated dehydration Stool panel and C diff sent. Patient placed on precautions No recent travel reported IV fluids at low rate initiated Follow BMP, no current electrolyte imbalances 4. 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 Multiple sclerosis relapsing remitting Chronic with no recent flares. Patient continues to follow with Neurology Patient using walker for ambulation. Patient no longer drive. Neuro exam within normal limits today. We will check CPK due to level weakness. Falls are occurring more often with no obvious injury. Patient is no longer on injectables for MS treatment.. Follow-up with neuro as an outpatient PT eval ordered 6. Chronic kidney disease stage IV Renal function appears baseline. Consult Nephrology if needed BMP in the a.m. Avoid nephrotoxic medications and hypotension 7. Hypothyroidism Checking TSH with reflex to free T4 Continue levothyroxine and adjust as needed 8. COPD patient is not on home O2 Chest x-ray negative for any acute findings. O2 at 2 L continuing to wean as tolerated. Patient does not use O2 at home Consider home O2 study if patient is unable to wean. Patient does not require and RT as she no longer smokes Supportive care with nebs, incentive spirometry . 9. Orthostatic hypotension/ no syncope Isolated episode secondary to dehydration and Cardizem dosing for AFib RVR Recheck orthostatics at 08:00. Continue if results are abnormal Patient is currently on low rate IV fluid x2 L. We will hold patient's terazosin, lasix and metoprolol until blood pressure improves TEDs ordered 10. HFrEF BNP is elevated at 313 Chest x-ray negative for any evidence of CHF or fluid overload Last echo was October of 2024 notes an EF of 45-50% with akinesis of the inferior lateral wall, the basal inferior wall mid inferior and basal inferior septal segments [id number] mitral valve regurgitation noted Resume Lasix when patient is no longer orthostatic Pt is not currently on SILVIA or ARB likely due to level of CKD Daily weights, strict I's and O's, low-sodium diet DVT prophylaxis: Apixaban PPI prophylaxis: Omeprazole Patient requires hospital stay for observation due to IV antibiotics, IV hydration for noted UTI, weakness, orthostatic hypotension, diarrhea and dehydration. Chronic AFib is now rate controlled after 1 dose of Cardizem. Med rec not completed on overnight shift. Please review med rec before ordering current medications from home. Total time managing care of this patient today: 45 minutes. Quality Stroke Does the patient have a stroke diagnosis?: No Reason for No Anti-thrombotic by Day Two: N/A - Med Ordered VTE Prior VTE?: No VTE Risk Level:: Medical - moderate - high VTE Device Contraindication: N/A - Device Ordered VTE Drug Contraindication: N/A - Med Ordered
[2025-01-29 02:33] LABS: Partial Thromboplastin Time 36.8 SEC (26.0-36.8)
[2025-01-29] MEDS: cefTRIAXone sodium 1 GM VIAL IVPUSH (02:33)
--- OUTSIDE RECORDS SUMMARY | 2025-01-29 03:01 | XMS_ITS | Patient Health Record ---
Author Organization 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) Active confirmed Problem 04654208 Gastrointestinal hemorrhage, unspecified gastrointestinal hemorrhage type (K92.2) Active confirmed Problem Esophageal reflux finding (865062704) Gastroesophageal reflux (K21.9) Active confirmed Problem 39315530 Polyp of colon, unspecified part of colon, unspecified type (K63.5) Active confirmed Problem [id number] Gastroesophageal reflux disease, unspecified whether esophagitis present [...] Date MEDICARE OF [place] [address] [place] [address] [id number] JULIANA MULLEN Self - patient is the insured [facility] [address] [place], [place] [phone] [id number] JULIANA MULLEN Self - patient is the [...]
--- OUTSIDE RECORDS SUMMARY | 2025-01-29 03:01 | XMS_ITS | Encounter Summary ---
Author Organization [facility] Address [address] [place] [address] Care Team Providers Care Photoengraving Machine Operator/Tender Name Role Phone Unavailable Primary Care Provider Unavailabl e Encounter Details Date Type Department Care Team (Late st Contact Info) Description 08/28/2024 Lab Requisition [facility] - Main Lab [address] [facility] [place] [address] Molly Servin MD [address] [place], [place] [phone] Shortness of breath Social History Tobacco Use [...] (ABNORMAL) Vitamin B12 (08/30/2024 7:38 AM EST) [facility] Signature Vitamin B-12 1,750(H) 250 - 900 pcg/mL LAB CHEMISTRY METHOD 08/30/2024 10:18 PM EST [facility] Blood Venous blood specimen / Unknown Venipuncture / Unknown 08/30/2024 7:38 AM EST 08/30/2024 9:32 AM EST us Molly Servin MD LAB BLOOD ORDERABLES Final Resul t Performing Organization Address City/[facility]/ZIP Co de Phone Number [facility] [address] [place] [address], [place] [phone] * Travel phlebotomy fee (08/30/2024 7:38 AM EST) [facility] HOME TRAVEL PHLEBOTOMY FEE Completed 08/30/2024 10:01 AM [facility] Blood Venous blood specimen / Unknown Venipuncture / Unknown 08/30/2024 7:38 AM EST 08/30/2024 9:32 AM EST us Molly Servin MD LAB BLOOD ORDERABLES Final Resul t Performing Organization Address City/[facility]/ZIP Co de Phone Number [facility] [address] [place] [address], [place] [phone] * (ABNORMAL) Basic metabolic panel (08/30/2024 7:38 AM EST) [facility] Sodium 143 133 - 145 mmol/L LAB CHEMISTRY METHOD 08/30/2024 10:57 AM [facility] Potassium 4.1 3.5 - 5.5 mmol/L LAB CHEMISTRY METHOD 08/30/2024 10:57 AM [facility] Chloride 107 96 - 110 mmol/L LAB CHEMISTRY METHOD 08/30/2024 10:57 AM [facility] CO2 30 21 - 32 mmol/L LAB CHEMISTRY METHOD 08/30/2024 10:57 AM [facility] Anion Gap 6 3 - 11 LAB CHEMISTRY METHOD 08/30/2024 10:57 AM [facility] Glucose 76 70 - 100 mg/dL LAB CHEMISTRY METHOD 08/30/2024 10:57 AM [facility] BUN 31(H) 5 - 25 mg/dL LAB CHEMISTRY METHOD 08/30/2024 10:57 AM [facility] Creatinine 1.87(H) 0.50 - 1.10 mg/dL LAB CHEMISTRY METHOD 08/30/2024 10:57 AM [facility] eGFR 28(L) >=60 mL/min/1. 73m2 LAB CHEMISTRY METHOD 08/30/2024 10:57 AM [facility] Comment:Calculation based on the??Chronic Kidney Disease Epidemiology Collaboration (CKD-EPI) equation refit??without adjustment for race. BUN/Creatinine Ratio 16.6 LAB CHEMISTRY METHOD 08/30/2024 10:57 AM [facility] Calcium 8.9 8.5 - 10.5 mg/dL LAB CHEMISTRY METHOD 08/30/2024 10:57 AM [facility] Blood Venous blood specimen / Unknown Venipuncture / Unknown 08/30/2024 7:38 AM EST 08/30/2024 9:32 AM EST us Molly Servin MD LAB BLOOD ORDERABLES Final Resul t [facility] [address] [place] [address], * (ABNORMAL) Complete blood count (08/30/2024 7:38 AM EST) WBC 6.0 4.8 - 10.8 K/mcL LAB HEMETOLOGY METHOD 08/30/2024 10:49 AM [facility] RBC 3.50(L) 3.80 - 4.80 M/mcL LAB HEMETOLOGY METHOD 08/30/2024 10:49 AM [facility] Hemoglobin 8.5(L) 11.5 - 16.0 g/dL LAB HEMETOLOGY METHOD 08/30/2024 10:49 AM [facility] Hematocrit 29.5(L) 35.0 - 47.0 % LAB HEMETOLOGY METHOD 08/30/2024 10:49 AM [facility] MCV 84.8 79.0 - 98.0 FL LAB HEMETOLOGY METHOD 08/30/2024 10:49 AM [facility] MCH 24.4(L) 27.0 - 32.0 pcg LAB HEMETOLOGY METHOD 08/30/2024 10:49 AM [facility] MCHC 28.8(L) 32.0 - 37.0 g/dL LAB HEMETOLOGY METHOD 08/30/2024 10:49 AM [facility] RDW 19.6(H) 11.0 - 15.0 % LAB HEMETOLOGY METHOD 08/30/2024 10:49 AM [facility] Platelets 223 130 - 400 K/mcL LAB HEMETOLOGY METHOD 08/30/2024 10:49 AM [facility] MPV 10.4 7.0 - 11.0 FL LAB HEMETOLOGY METHOD 08/30/2024 10:49 AM [facility] NRBC 0.0 <1.0 % LAB HEMETOLOGY METHOD 08/30/2024 10:49 AM EST [facility] NRBC Absolute 0.00 <0.10 K/mcL LAB HEMETOLOGY METHOD 08/30/2024 10:49 AM [facility] Blood Venous blood specimen / Unknown Venipuncture / Unknown 08/30/2024 7:38 AM EST 08/30/2024 9:32 AM EST us Molly Servin MD LAB BLOOD ORDERABLES Final Resul t [facility] [address] [place] [address], [place] [phone] documented in this encounter Visit Diagnoses Diagnosis Shortness of breath documented in this encounter
--- OUTSIDE RECORDS SUMMARY | 2025-01-29 03:01 | XMS_ITS | Encounter Summary ---
Author Organization [facility] Address [address] [place] [address] Care Team Providers Care Edge Stitcher Name Role Phone Unavailable Primary Care Provider Unavailabl e Encounter Details Date Type Department Care Team (Late st Contact Info) Description 09/02/2024 Lab Requisition [facility] - Main Lab [address] [facility] [place] [address] Molly Servin MD [address] [place], [place] [phone] Anemia, unspecified Social History Tobacco Use Types [...] AM EST) WBC 8.5 4.8 - 10.8 K/[facility] LAB HEMETOLOGY METHOD 09/02/2024 8:22 AM EST [facility] RBC 3.30(L) 3.80 - 4.80 M/[facility] LAB HEMETOLOGY METHOD 09/02/2024 8:22 AM EST [facility] Hemoglobin 8.2(L) 11.5 - 16.0 g/dL LAB HEMETOLOGY METHOD 09/02/2024 8:22 AM EST [facility] Hematocrit 27.8(L) 35.0 - 47.0 % LAB HEMETOLOGY METHOD 09/02/2024 8:22 AM EST [facility] MCV 83.5 79.0 - 98.0 FL LAB HEMETOLOGY METHOD 09/02/2024 8:22 AM [facility] MCH 24.6(L) 27.0 - 32.0 pcg LAB HEMETOLOGY METHOD 09/02/2024 8:22 AM [facility] MCHC 29.5(L) 32.0 - 37.0 g/dL LAB HEMETOLOGY METHOD 09/02/2024 8:22 AM [facility] RDW 19.9(H) 11.0 - 15.0 % LAB HEMETOLOGY METHOD 09/02/2024 8:22 AM [facility] Platelets 230 130 - 400 K/mcL LAB HEMETOLOGY METHOD 09/02/2024 8:22 AM EST [facility] MPV 10.5 7.0 - 11.0 FL LAB HEMETOLOGY METHOD 09/02/2024 8:22 AM [facility] NRBC 0.0 <1.0 % LAB HEMETOLOGY METHOD 09/02/2024 8:22 AM [facility] NRBC Absolute 0.00 <0.10 K/mcL LAB HEMETOLOGY METHOD 09/02/2024 8:22 AM [facility] Blood Venous blood specimen / Unknown Venipuncture / Unknown 09/02/2024 5:42 AM EST 09/02/2024 7:50 AM EST us Molly Servin MD LAB BLOOD ORDERABLES Final Resul t [facility] [address] [place] [address], documented in this encounter Visit Diagnoses Diagnosis Anemia, unspecified documented in this encounter
--- OUTSIDE RECORDS SUMMARY | 2025-01-29 03:01 | XMS_ITS | Clinical Summary ---
Author Organization [facility] Address [address] [address] Care Team Providers Care Phonograph Mechanic Name Role Phone Rod Wakefield MD Primary [...] age to complete this topic Insurance MEDICARE [facility] MEDICARE [facility] Care Teams Phonograph Mechanic Relationship Specialty Start Date End Date Rod Wakefield MD [address] [place] [address] PCP - General Internal Medicine 05/28/21
--- OUTSIDE RECORDS SUMMARY | 2025-01-29 03:01 | XMS_ITS | Encounter Summary ---
Author Organization [facility] Address [address] [facility] [address] [place] [address] Phone Care Team Providers Care Lasting Machine Operator Hand Method Name Role Phone Rod Wakefield MD Primary Care Provider + Encounter Details Date Type Department Care Team (Late st Contact Info) Description 03/08/2021 Orders Only [facility] [address] [place] [address] Oneil Garber MD [address] [facility] [address] [place] [phone] Renal artery stenosis (HCC) Social History Tobacco [...] (HCC) documented in this encounter Care Teams Lasting Machine Operator Hand Method Relationship Specialty Start Date End Date Rod Wakefield MD [address] [place], [place] [id number] PCP - General Internal Medicine 05/28/21 documented as of this encounter
--- OUTSIDE RECORDS SUMMARY | 2025-01-29 03:01 | XMS_ITS | Referral Summary ---
Author Organization [facility] Address [address] [place] [address] Care Team Providers Care Sheep Killer Name Role Phone No, Referring Primary Care [...] to 7.9/25.9 in the ED. Baseline per [place] lab Hgb ~8.5-10. No concern of GI [...] to 7.9/25.9 in the ED. Baseline per [place] lab Hgb ~8.5-10. No concern of GI bleed. - Eliquis per afib section - Start IV iron once stable from infection perspective Assessment & Plan (08/18/2024 3:41 PM EDT): Microcytic anemia. Home med: Iron sulfate 325 mg daily. Presented with H/H 9.3 and 32.5, down trending to 7.9/25.9 in the ED. Baseline per [place] lab Hgb ~8.5-10. No concern of GI bleed. - Eliquis per afib section - Start IV iron once stable from infection perspective Assessment & Plan (08/17/2024 2:57 PM EDT): Microcytic anemia. Home med: Iron sulfate 325 mg daily. Presented with H/H 9.3 and 32.5, down trending to 7.9/25.9 in the ED. Baseline per [place] lab Hgb ~8.5-10. No concern of GI bleed. - Eliquis per afib section - Start IV iron once stable from infection perspective Assessment & Plan (08/16/2024 1:21 PM EDT): Microcytic anemia. Home med: Iron sulfate 325 mg daily. Presented with H/H 9.3 and 32.5, down trending to 7.9/25.9 in the ED. Baseline per [place] lab Hgb ~8.5-10. No concern of GI bleed. - Restart home eliquis at lower dose - Start IV iron once stable from infection perspective Assessment & Plan (08/15/2024 2:33 PM EDT): Microcytic anemia. Home med: Iron sulfate 325 mg daily. Presented with H/H 9.3 and 32.5, down trending to 7.9/25.9 in the ED. Baseline per [place] lab Hgb ~8.5-10. No concern of GI bleed. - Holding home eliquis - Will begin IV iron once stable from infection perspective Assessment & Plan (08/15/2024 12:34 PM EDT): Microcytic anemia. Home med: Iron sulfate 325 mg daily. Presented with H/H 9.3 and 32.5, down trending to 7.9/25.9 in the ED. Baseline per [place] lab Hgb ~8.5-10. No concern of GI bleed. - Holding home eliquis - Will begin IV iron once stable from infection perspective Assessment & Plan (08/14/2024 8:36 PM EDT): Microcytic anemia. Home med: Iron sulfate 325 mg daily. Presented with H/H 9.3 and 32.5, down trending to 7.9/25.9 in the ED. Baseline per [place] lab Hgb ~8.5-10. No concern of GI [...] to 7.9/25.9 in the ED. Baseline per [place] lab Hgb ~8.5-10. No concern of GI [...] to 7.9/25.9 in the ED. Baseline per [place] lab Hgb ~8.5-10. No concern of GI [...] to 7.9/25.9 in the ED. Baseline per [place] lab Hgb ~8.5-10. No concern of GI bleed. - Holding home eliquis - IV iron started per HF section Assessment & Plan (08/10/2024 6:12 PM EDT): Microcytic anemia. Home med: Iron sulfate 325 mg daily. Presented with H/H 9.3 and 32.5, down trending to 7.9/25.9 in the ED. Baseline per [place] lab Hgb ~8.5-10. No concern of GI bleed. - Holding home anticoagulation Assessment & Plan (08/09/2024 5:57 PM EDT): Patient presented with nose bleeds. Found to be anemic with an H/H 9.3 and 32.5, down trending to 7.9/25.9 in the ED. Baseline per [place] lab hgb ~8.5-10. No concern of GI [...] Lopressor 50 mg BID, Follows Cardiology at [place]. Called [facility] pharmacy in [place] who reported that she didn't refill her [...] Lopressor 50 mg BID, Follows Cardiology at [place]. Called [facility] pharmacy in [place] who reported that she didn't refill her [...] Lopressor 50 mg BID, Follows Cardiology at [place]. Called [facility] pharmacy in [place] who reported that she didn't refill her [...] Lopressor 50 mg BID, Follows Cardiology at [place]. Called [facility] pharmacy in [place] who reported that she didn't refill her [...] Lopressor 50 mg BID, Follows Cardiology at [place]. Called [facility] pharmacy in [place] who reported that she didn't refill her [...] Lopressor 50 mg BID, Follows Cardiology at [place]. Called [facility] pharmacy in [place] who reported that she didn't refill her [...] Lopressor 50 mg BID, Follows Cardiology at [place]. Called [facility] pharmacy in [place] who reported that she didn't refill her [...] Lopressor 50 mg BID, Follows Cardiology at [place]. Called [facility] pharmacy in [place] who reported that she didn't refill her Eliquis in March 2024. Patient noted to be irregular, irregular on exam. - Hold home Eliquis and Amio due to acute liver failure. - Lopressor 50 mg BID Assessment & Plan (2024 2:30 PM EDT): Home med: Eliquis 2.5 mg BID, Amio 200 mg daily, Follows Cardiology at [place]. Called [facility] pharmacy in [place] who reported that she didn't refill her Eliquis in March 2024. Patient noted to be irregular, irregular on exam. - Hold home Eliquis - Lopressor 50 mg BID Assessment & Plan (08/12/2024 7:50 PM EDT): Home med: Eliquis 2.5 mg BID, Amio 200 mg daily, Follows Cardiology at [place]. Called [facility] pharmacy in [place] who reported that she didn't refill her Eliquis in March 2024. Patient noted to be irregular, irregular on exam. - Hold home Eliquis - Lopressor 50 mg BID Assessment & Plan (08/11/2024 6:29 PM EDT): Home med: Eliquis 2.5 mg BID, Amio 200 mg daily, Follows Cardiology at [place]. Called [facility] pharmacy in [place] who reported that she didn't refill her Eliquis in March 2024. Patient noted to be irregular, irregular on exam. - Hold home Eliquis - Lopressor 50 mg BID Assessment & Plan (08/10/2024 6:12 PM EDT): Home med: Eliquis 2.5 mg BID, Amio 200 mg daily, Follows Cardiology at [place]. Called [facility] pharmacy in [place] who reported that she didn't refill her Eliquis in March 2024. Patient noted to be irregular, irregular on exam. - Hold home Eliquis - Lopressor 25 mg BID Assessment & Plan (08/09/2024 5:57 PM EDT): History of afib, reportedly on Eliquis. Follows Cardiology at [place]. Called [facility] pharmacy in [place] who reported that she didn't refill her [...] dribbles out. She follows with urology at [place]. She has required straight caths before, and [...] dribbles out. She follows with urology at [place]. She has required straight caths before, and she had a chronic Mahoney for 3 years at one point. UOP has been monitored via [facility]. - Repeat CT abdomen pelvis with moderate right hydroureteronephrosis and mild left hydronephrosis is new compared to the CT study from 08/09. No etiology of obstruction. - Mahonye catheter placed - Monitor I/Os - Repeat [...] dribbles out. She follows with urology at [place]. She has required straight caths before, and [...] dribbles out. She follows with urology at [place]. She has required straight caths before, and [...] Furosemide 20 mg PO every day Follows [facility] at [place] (Dr. 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 By report, Echocardiogram was [...] Furosemide 20 mg PO every day Follows [facility] at [place] (Dr. 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 By report, Echocardiogram was [...] Furosemide 20 mg PO every day Follows [facility] at [place] (Dr. 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 By report, Echocardiogram was [...] Furosemide 20 mg PO every day Follows [facility] at [place] (Dr. 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 By report, Echocardiogram was [...] Furosemide 20 mg PO every day Follows [facility] at [place] (Dr. Tear Lizama). By report, Echocardiogram was done at [...] Furosemide 20 mg PO every day Follows [facility] at [place] (Dr. 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 By report, Echocardiogram was [...] Furosemide 20 mg PO every day Follows [facility] at [place] (Dr. 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 By report, Echocardiogram was [...] Furosemide 20 mg PO every day Follows [facility] at [place] (Dr. Tera Lizama) Patient with a history of HFrEF, unknown last EF, presenting for several days of worsening orthopnea. New oxygen requirement on 2L NC, CXR showed pulmonary edema but clinically doesn't appear volume overload. Pro-BNP 64,308. Unable to obtain prior TTE result from [place]. Trop elevated to 34, likely demand ischemia [...] 08/11/2024 progress note for cardiology notes from [place]. - Hold home lasix dose - Lopressor [...] Furosemide 20 mg PO every day Follows [facility] at [place] (Dr. Tera Lizama) Patient with a history of HFrEF, unknown last EF, presenting for several days of worsening orthopnea. New oxygen requirement on 2L NC, CXR showed pulmonary edema but clinically doesn't appear volume overload. Pro-BNP 64,308. Unable to obtain prior TTE result from [place]. Trop elevated to 34, likely demand ischemia [...] 08/11/2024 progress note for cardiology notes from [place]. - Hold home lasix dose - Continue [...] Furosemide 20 mg PO every day Follows [facility] at [place] (Dr. Tera Lizama) Patient with a history of HFrEF, unknown last EF, presenting for several days of worsening orthopnea. New oxygen requirement on 2L NC, CXR showed pulmonary edema but clinically doesn't appear volume overload. Pro-BNP 64,308. Unable to obtain prior TTE result from [place]. Trop elevated to 34, likely demand ischemia [...] 08/11/2024 progress note for cardiology notes from [place]. - Hold home lasix - Continue Lopressor [...] Furosemide 20 mg PO every day Follows [facility] at [place] (Dr. Tera Lizama) Patient with a history of HFrEF, unknown last EF, presenting for several days of worsening orthopnea. New oxygen requirement on 2L NC, CXR showed pulmonary edema but clinically doesn't appear volume overload. Pro-BNP 64,308. Unable to obtain prior TTE result from [place]. Trop elevated to 34, likely demand ischemia [...] for further details for cardiology notes from [place]. - Hold home lasix - Increase Lopressor [...] Furosemide 20 mg PO every day Follows [facility] at [place]. Patient with a history of HFrEF, unknown last EF, presenting for several days of worsening orthopnea. New oxygen requirement on 2L NC, CXR showed pulmonary edema but clinically doesn't appear volume overload. Pro-BNP 64,308. Unable to obtain prior TTE result from [place]. Trop elevated to 34, likely demand ischemia [...] Unable to obtain prior TTE result from [place]. Trop elevated to 34, likely demand ischemia [...] on admission. Per request from lab at [place], patient's most recent creatinines are elevated to 2.54-2.96. Patient has a history of CKD and was previously following with Dr. Garber at [facility], however, last appointment available in [facility] is from 04/24/2023. Renal following. Likely ATN [...] on admission. Per request from lab at [place], patient's most recent creatinines are elevated to 2.54-2.96. Patient has a history of CKD and was previously following with Dr. Garber at [facility], however, last appointment available in [facility] is from 04/24/2023. Renal following. Likely ATN in setting of shock on presentation. Improving. Nephro consulted, appreciate recs: - Daily BMP - Ordered CPK to rule out rhabdo - 1.5L fluid restriction Assessment & Plan (08/18/2024 3:41 PM EDT): Cr elevated to 3.38 with an eGFR of 14 on admission. Per request from lab at [place], patient's most recent creatinines are elevated to 2.54-2.96. Patient has a history of CKD and was previously following with Dr. Garber at [facility], however, last appointment available in [facility] is from 04/24/2023. Renal following. Likely ATN in setting of shock on presentation. Improving. Nephro consulted, appreciate recs: - Daily BMP - Ordered CPK to rule out rhabdo - 1.5L fluid restriction Assessment & Plan (08/17/2024 2:57 PM EDT): Cr elevated to 3.38 with an eGFR of 14 on admission. Per request from lab at [place], patient's most recent creatinines are elevated to 2.54-2.96. Patient has a history of CKD and was previously following with Dr. Garber at [facility], however, last appointment available in [facility] is from 04/24/2023. Renal following. Likely ATN in setting of shock on presentation. Improving. Nephro consulted, appreciate recs: - Daily BMP - Ordered CPK to rule out rhabdo - 1.5L fluid restriction Assessment & Plan (08/16/2024 1:31 PM EDT): Cr elevated to 3.38 with an eGFR of 14 on admission. Per request from lab at [place], patient's most recent creatinines are elevated to 2.54-2.96. Patient has a history of CKD and was previously following with Dr. Garber at [facility], however, last appointment available in [facility] is from 04/24/2023. Renal following. Likely ATN in setting of shock on presentation. Improving. Nephro consulted, appreciate recs: - Daily BMP - Ordered CPK to rule out rhabdo - 1.5L fluid restriction Assessment & Plan (08/15/2024 2:33 PM EDT): Cr elevated to 3.38 with an eGFR of 14 on admission. Per request from lab at [place], patient's most recent creatinines are elevated to 2.54-2.96. Patient has a history of CKD and was previously following with Dr. Garber at [facility], however, last appointment available in [facility] is from 04/24/2023. Renal following. Likely ATN in setting of shock on presentation. Improving. - Daily BMP Assessment & Plan (08/15/2024 12:34 PM EDT): Cr elevated to 3.38 with an eGFR of 14 on admission. Per request from lab at [place], patient's most recent creatinines are elevated to 2.54-2.96. Patient has a history of CKD and was previously following with Dr. Garber at [facility], however, last appointment available in [facility] is from 04/24/2023. Renal following. Likely ATN in setting of shock on presentation. Improving. - Daily BMP Assessment & Plan (08/14/2024 8:36 PM EDT): Cr elevated to 3.38 with an eGFR of 14 on admission. Per request from lab at [place], patient's most recent creatinines are elevated to 2.54-2.96. Patient has a history of CKD and was previously following with Dr. Garber at [facility], however, last appointment available in [facility] is from 04/24/2023. Renal following. Likely ATN in setting of shock on presentation Assessment & Plan (2024 2:30 PM EDT): Cr elevated to 3.38 with an eGFR of 14 on admission. Per request from lab at [place], patient's most recent creatinines are elevated to 2.54-2.96. Patient has a history of CKD and was previously following with Dr. Garber at [facility], however, last appointment available in [facility] is from 04/24/2023. Renal following. - Patient will require close monitoring as well especially in the setting of hypothermia and septic shock on admission causing ischemic liver injury and worsening SUSAN. - Evidence of secondary hyperparathyroidism, renal is following Assessment & Plan (08/12/2024 7:50 PM EDT): Cr elevated to 3.38 with an eGFR of 14 on admission. Per request from lab at [place], patient's most recent creatinines are elevated to 2.54-2.96. Patient has a history of CKD and was previously following with Dr. Garber at [facility], however, last appointment available in [facility] is from 04/24/2023. Renal following. - Patient [...] on admission. Per request from lab at [place], patient's most recent creatinines are elevated to 2.54-2.96. Patient has a history of CKD and was previously following with Dr. Garber at [facility], however, last appointment available in [facility] is from 04/24/2023. Renal following. - Patient [...] on admission. Per request from lab at [place], patient's most recent creatinines are elevated to 2.54-2.96. Patient has a history of CKD and was previously following with Dr. Garber at [facility], however, last appointment available in [facility] is from 04/24/2023. Renal following. - Patient will require close monitoring as well especially in the setting of hypothermia and septic shock on admission causing ischemic liver injury and worsening SUSAN. - Strict I/O Assessment & Plan (08/09/2024 5:57 PM EDT): Cr elevated to 3.38 with an eGFR of 14 on admission. Per request from lab at [place], patient's most recent creatinines are elevated to 2.54-2.96. Patient has a history of CKD and was previously following with Dr. Garber at [facility], however, last appointment available in [facility] is from 04/24/2023. - Nephro following: CK [...] Years Used Date Smoking Tobacco: Never Assessed [facility] Utilities Answer Date Recorded In the past 12 months has [employer], [employer], oil, or water [employer] threatened to shut off services in your [...] Not on file Procedures * Due to [place] [employer] law, this organization might not be sharing [...] to Health Maintenance Results * Due to [place] [employer] law, this organization might not be sharing negative HIV tests. * (ABNORMAL) CBC Auto Differential (08/20/2024 6:44 AM EDT) WBC 6.2 3.8 - 10.8 10*3/uL 08/20/2024 7:40 AM EDT [facility] RBC 3.24(L) 3.80 - 5.10 10*6/uL 08/20/2024 7:40 AM EDT [facility] Hemoglobin 7.7(L) 11.7 - 15.5 g/dL 08/20/2024 7:40 AM EDT [facility] Hematocrit 26.1(L) 35.0 - 45.0 % 08/20/2024 7:40 AM EDT [facility] MCV 80.6 80.0 - 100.0 fL 08/20/2024 7:40 AM EDT [facility] MCH 23.8(L) 27.0 - 33.0 pg 08/20/2024 7:40 AM EDT [facility] MCHC 29.5(L) 32.0 - 36.0 g/dL 08/20/2024 7:40 AM EDT [facility] RDW 16.9(H) 11.0 - 15.0 % 08/20/2024 7:40 AM EDT [facility] Platelets 196 140 - 400 10*3/uL 08/20/2024 7:40 AM EDT [facility] MPV 10.9 7.5 - 12.5 fL 08/20/2024 7:40 AM EDT [facility] Neutrophil % 65.4 % 08/20/2024 7:40 AM EDT [facility] Immature Grans % 0.5 0.0 - 0.9 % 08/20/2024 7:40 AM EDT [facility] Lymphocyte % 20.8 % 08/20/2024 7:40 AM EDT [facility] Monocyte % 10.2 % 08/20/2024 7:40 AM EDT [facility] Eosinophil % 2.4 % 08/20/2024 7:40 AM EDT [facility] Basophil % 0.7 % 08/20/2024 7:40 AM EDT [facility] Neutrophil # 4.02 1.50 - 7.80 10*3/uL 08/20/2024 7:40 AM EDT [facility] Immature Grans # 0.03 <=0.03 10*3/uL 08/20/2024 7:40 AM EDT [facility] Lymphocyte # 1.30 0.85 - 3.90 10*3/uL 08/20/2024 7:40 AM EDT [facility] Monocyte # 0.60 0.20 - 0.95 10*3/uL 08/20/2024 7:40 AM EDT [facility] Eosinophil # 0.20 0.02 - 0.50 10*3/uL 08/20/2024 7:40 AM EDT [facility] Basophil # <0.03 0.00 - 0.20 10*3/uL 08/20/2024 7:40 AM EDT [facility] nRBC % 0.0 /100 WBCs 08/20/2024 7:40 AM EDT [facility] nRBC # <0.01 <0.01 10*3/uL 08/20/2024 7:40 AM EDT [facility] Blood Structure of peripheral vein / Unknown Venipuncture / Unknown 08/20/2024 6:44 AM EDT 08/20/2024 7:26 AM EDT us Jared Bell MD PhD LAB BLOOD ORDERABLES Final Resu lt [facility] [address] [place] [address], * (ABNORMAL) Basic Metabolic Panel (08/20/2024 6:44 AM EDT) NA 144 135 - 145 mmol/L 08/20/2024 8:21 AM EDT [facility] K 4.7 3.5 - 5.3 mmol/L 08/20/2024 8:21 AM EDT [facility] Cl 111(H) 98 - 107 mmol/L 08/20/2024 8:21 AM EDT [facility] CO2 23 22 - 32 mmol/L 08/20/2024 8:21 AM EDT [facility] BUN 42(H) 7 - 23 mg/dL 08/20/2024 8:21 AM EDT [facility] Creatinine 2.36(H) 0.50 - 1.20 mg/dL 08/20/2024 8:21 AM EDT [facility] Glucose 86 65 - 99 mg/dL 08/20/2024 8:21 AM EDT [facility] Calcium 9.1 8.6 - 10.5 mg/dL 08/20/2024 8:21 AM EDT [facility] Anion Gap 10 5 - 15 08/20/2024 8:21 AM EDT [facility] eGFR 22(L) >=60 mL/min/1 .73m2 08/20/2024 8:21 AM EDT [facility] Comment:The estimated glomer ular [...] PhD LAB BLOOD ORDERABLES Final Resu lt [facility] [address] [place] [address], [place] * (ABNORMAL) PTH, Intact and Calcium (08/12/2024 6:51 AM EDT) Parathyroid Hormone, Intact 203(H) 16 - 77 pg/mL 2024 4:01 AM EDT [employer] [facility] Comment: Interpretive Guide ?Intact PTH ? Calcium ? ------- Normal Parathyroid ?Normal ? Normal Hypoparathyroidism ?Low or Low Normal ?Low Hyperparathyroidism ?? Primary ?Normal or High ? High ?? Secondary ?High ? Normal or Low ?? Tertiary ? High ? High Non-Parathyroid ?? Hypercalcemia ?Low or Low Normal ?High Calcium 8.2(L) 8.6 - 10.4 mg/dL 2024 4:01 AM EDT [facility] Blood Structure of peripheral vein / Unknown Venipuncture / Unknown 08/12/2024 6:51 AM EDT 08/12/2024 7:38 AM EDT Narrative [facility] - 2024 4:01 AM EDT [employer] Received Date: us Brigitte Duke MD LAB BLOOD ORDERABLES Final Resul t [facility] [address], [place] [address], [place] [phone] [facility] [address], [place] [address], [place] [phone] * Phosphorus (08/12/2024 6:51 AM EDT) Phosphorus 3.7 2.5 - 4.5 mg/dL 08/12/2024 9:17 AM EDT [facility] Blood Structure of peripheral vein / Unknown Venipuncture / Unknown 08/12/2024 6:51 AM EDT 08/12/2024 7:38 AM EDT us Brigitte Duke MD LAB BLOOD ORDERABLES Final Resul t [facility] [address] [place] [address], * Hepatitis Panel, Acute (08/09/2024 10:04 AM EDT) Pathologist [facility] Hepatitis A IgM NON-REACT TRINH NON-REACT TRINH 08/09/2024 8:26 PM EDT [facility] Hepatitis B Surface Antigen NON-REACT TRINH NON-REACT TRINH 08/09/2024 8:26 PM EDT [facility] Hepatitis B Core Antibody NON-REACT TRINH NON-REACT TRINH 08/09/2024 8:26 PM EDT [facility] Hepatitis C Antibody NON-REACT TRINH NON-REACT TRINH 08/09/2024 8:26 PM EDT [facility] Comment: HCV antibody was non-reactive. There is no laboratory evidence of HCV infection. In most cases, no further action is required. However, if recent HCV exposure is suspected, a test for HCV RNA (test code 23935) is suggested. For additional information please refer to http://education.[employer].Evtron/faq/PVO84z8 (This link is being provided for informational/ educational purposes only.) For additional information, please refer to http://[employer].Evtron/faq/TSM397 (This link is being provided for informational/ educational purposes only.) Blood Structure of peripheral vein / Unknown Venipuncture / Unknown 08/09/2024 10:04 AM EDT 08/09/2024 10:12 AM EDT Narrative [facility] - 08/09/2024 8:26 PM EDT [facility] Received Date: us April Ann MD LAB BLOOD ORDERABLES Final Resul t [facility] [address], [place] [address], [place] [phone] [facility] [address], [place] [address], [place] [phone] from Last 3 Months or Most Recently Relevant to Health Maintenance Insurance [facility] [employer] Advance Directives Documents on File Type Date Recorded 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
--- OUTSIDE RECORDS SUMMARY | 2025-01-29 03:01 | XMS_ITS | Clinical Summary ---
Author Organization [facility] Address [address] [place] [address] Phone Care Team Providers Care Student Counsellor Name Role Phone Unavailable Primary Care Provider [...] mmol/L LAB CHEMISTRY METHOD 09/04/2024 11:04 AM [facility] Potassium 4.1 3.5 - 5.5 mmol/L LAB CHEMISTRY METHOD 09/04/2024 11:04 AM [facility] Chloride 109 96 - 110 mmol/L LAB CHEMISTRY METHOD 09/04/2024 11:04 AM [facility] CO2 28 21 - 32 mmol/L LAB CHEMISTRY METHOD 09/04/2024 11:04 AM [facility] Anion Gap 7 3 - 11 LAB CHEMISTRY METHOD 09/04/2024 11:04 AM [facility] Glucose 76 70 - 100 mg/dL LAB CHEMISTRY METHOD 09/04/2024 11:04 AM [facility] BUN 34(H) 5 - 25 mg/dL LAB CHEMISTRY METHOD 09/04/2024 11:04 AM [facility] Creatinine 1.73(H) 0.50 - 1.10 mg/dL LAB CHEMISTRY METHOD 09/04/2024 11:04 AM EST [facility] eGFR 31(L) >=60 mL/min/1. 73m2 LAB CHEMISTRY METHOD 09/04/2024 11:04 AM EST [facility] Comment:Calculation based on the??Chronic Kidney Disease Epidemiology Collaboration (CKD-EPI) equation refit??without adjustment for race. BUN/Creatinine Ratio 19.7 LAB CHEMISTRY METHOD 09/04/2024 11:04 AM EST [facility] Calcium 8.9 8.5 - 10.5 mg/dL LAB CHEMISTRY METHOD 09/04/2024 11:04 AM [facility] Blood Venous blood specimen / Unknown Venipuncture / Unknown 09/04/2024 8:08 AM EST 09/04/2024 9:58 AM EST us Molly Servin MD LAB BLOOD ORDERABLES Final Resul t [facility] [address] [place] [address], from Last 3 Months or Most Recently Relevant to Health Maintenance Insurance MEDICARE
--- OUTSIDE RECORDS SUMMARY | 2025-01-29 03:01 | XMS_ITS | Clinical Summary ---
Author Organization [facility] Address [address] [place] [address] Care Team Providers Care Steam Box Hand Name Role Phone No, Referring Primary Care [...] to 7.9/25.9 in the ED. Baseline per [place] lab Hgb ~8.5-10. No concern of GI [...] to 7.9/25.9 in the ED. Baseline per [place] lab Hgb ~8.5-10. No concern of GI bleed. - Eliquis per afib section - Start IV iron once stable from infection perspective Assessment & Plan (08/18/2024 3:41 PM EDT): Microcytic anemia. Home med: Iron sulfate 325 mg daily. Presented with H/H 9.3 and 32.5, down trending to 7.9/25.9 in the ED. Baseline per [place] lab Hgb ~8.5-10. No concern of GI bleed. - Eliquis per afib section - Start IV iron once stable from infection perspective Assessment & Plan (08/17/2024 2:57 PM EDT): Microcytic anemia. Home med: Iron sulfate 325 mg daily. Presented with H/H 9.3 and 32.5, down trending to 7.9/25.9 in the ED. Baseline per [place] lab Hgb ~8.5-10. No concern of GI bleed. - Eliquis per afib section - Start IV iron once stable from infection perspective Assessment & Plan (08/16/2024 1:21 PM EDT): Microcytic anemia. Home med: Iron sulfate 325 mg daily. Presented with H/H 9.3 and 32.5, down trending to 7.9/25.9 in the ED. Baseline per [place] lab Hgb ~8.5-10. No concern of GI bleed. - Restart home eliquis at lower dose - Start IV iron once stable from infection perspective Assessment & Plan (08/15/2024 2:33 PM EDT): Microcytic anemia. Home med: Iron sulfate 325 mg daily. Presented with H/H 9.3 and 32.5, down trending to 7.9/25.9 in the ED. Baseline per [place] lab Hgb ~8.5-10. No concern of GI bleed. - Holding home eliquis - Will begin IV iron once stable from infection perspective Assessment & Plan (08/15/2024 12:34 PM EDT): Microcytic anemia. Home med: Iron sulfate 325 mg daily. Presented with H/H 9.3 and 32.5, down trending to 7.9/25.9 in the ED. Baseline per [place] lab Hgb ~8.5-10. No concern of GI bleed. - Holding home eliquis - Will begin IV iron once stable from infection perspective Assessment & Plan (08/14/2024 8:36 PM EDT): Microcytic anemia. Home med: Iron sulfate 325 mg daily. Presented with H/H 9.3 and 32.5, down trending to 7.9/25.9 in the ED. Baseline per [place] lab Hgb ~8.5-10. No concern of GI [...] to 7.9/25.9 in the ED. Baseline per [place] lab Hgb ~8.5-10. No concern of GI [...] to 7.9/25.9 in the ED. Baseline per [place] lab Hgb ~8.5-10. No concern of GI [...] to 7.9/25.9 in the ED. Baseline per [place] lab Hgb ~8.5-10. No concern of GI bleed. - Holding home eliquis - IV iron started per HF section Assessment & Plan (08/10/2024 6:12 PM EDT): Microcytic anemia. Home med: Iron sulfate 325 mg daily. Presented with H/H 9.3 and 32.5, down trending to 7.9/25.9 in the ED. Baseline per [place] lab Hgb ~8.5-10. No concern of GI bleed. - Holding home anticoagulation Assessment & Plan (08/09/2024 5:57 PM EDT): Patient presented with nose bleeds. Found to be anemic with an H/H 9.3 and 32.5, down trending to 7.9/25.9 in the ED. Baseline per [place] lab hgb ~8.5-10. No concern of GI [...] Lopressor 50 mg BID, Follows Cardiology at [place]. Called [facility] pharmacy in [place] who reported that she didn't refill her [...] Lopressor 50 mg BID, Follows Cardiology at [place]. Called [facility] pharmacy in [place] who reported that she didn't refill her [...] Lopressor 50 mg BID, Follows Cardiology at [place]. Called [facility] pharmacy in [place] who reported that she didn't refill her [...] Lopressor 50 mg BID, Follows Cardiology at [place]. Called [facility] pharmacy in [place] who reported that she didn't refill her [...] Lopressor 50 mg BID, Follows Cardiology at [place]. Called [facility] pharmacy in [place] who reported that she didn't refill her [...] Lopressor 50 mg BID, Follows Cardiology at [place]. Called [facility] pharmacy in [place] who reported that she didn't refill her [...] Lopressor 50 mg BID, Follows Cardiology at [place]. Called [facility] pharmacy in [place] who reported that she didn't refill her [...] Lopressor 50 mg BID, Follows Cardiology at [place]. Called [facility] pharmacy in [place] who reported that she didn't refill her Eliquis in March 2024. Patient noted to be irregular, irregular on exam. - Hold home Eliquis and Amio due to acute liver failure. - Lopressor 50 mg BID Assessment & Plan (2024 2:30 PM EDT): Home med: Eliquis 2.5 mg BID, Amio 200 mg daily, Follows Cardiology at [place]. Called [facility] pharmacy in [place] who reported that she didn't refill her Eliquis in March 2024. Patient noted to be irregular, irregular on exam. - Hold home Eliquis - Lopressor 50 mg BID Assessment & Plan (08/12/2024 7:50 PM EDT): Home med: Eliquis 2.5 mg BID, Amio 200 mg daily, Follows Cardiology at [place]. Called [facility] pharmacy in [place] who reported that she didn't refill her Eliquis in March 2024. Patient noted to be irregular, irregular on exam. - Hold home Eliquis - Lopressor 50 mg BID Assessment & Plan (08/11/2024 6:29 PM EDT): Home med: Eliquis 2.5 mg BID, Amio 200 mg daily, Follows Cardiology at [place]. Called [facility] pharmacy in [place] who reported that she didn't refill her Eliquis in March 2024. Patient noted to be irregular, irregular on exam. - Hold home Eliquis - Lopressor 50 mg BID Assessment & Plan (08/10/2024 6:12 PM EDT): Home med: Eliquis 2.5 mg BID, Amio 200 mg daily, Follows Cardiology at [place]. Called [facility] pharmacy in [place] who reported that she didn't refill her Eliquis in March 2024. Patient noted to be irregular, irregular on exam. - Hold home Eliquis - Lopressor 25 mg BID Assessment & Plan (08/09/2024 5:57 PM EDT): History of afib, reportedly on Eliquis. Follows Cardiology at [place]. Called [facility] pharmacy in [place] who reported that she didn't refill her [...] dribbles out. She follows with urology at [place]. She has required straight caths before, and [...] dribbles out. She follows with urology at [place]. She has required straight caths before, and [...] dribbles out. She follows with urology at [place]. She has required straight caths before, and [...] dribbles out. She follows with urology at [place]. She has required straight caths before, and [...] Furosemide 20 mg PO every day Follows engineering lecturer at [place] (Dr. 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 By report, Echocardiogram was [...] Furosemide 20 mg PO every day Follows engineering lecturer at [place] (Dr. 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 By report, Echocardiogram was [...] Furosemide 20 mg PO every day Follows engineering lecturer at [place] (Dr. 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 By report, Echocardiogram was [...] Furosemide 20 mg PO every day Follows engineering lecturer at [place] (Dr. 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 By report, Echocardiogram was [...] Furosemide 20 mg PO every day Follows engineering lecturer at [place] (Dr. 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 By report, Echocardiogram was [...] Furosemide 20 mg PO every day Follows engineering lecturer at [place] (Dr. 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 By report, Echocardiogram was [...] Furosemide 20 mg PO every day Follows engineering lecturer at [place] (Dr. 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 By report, Echocardiogram was [...] Furosemide 20 mg PO every day Follows engineering lecturer at [place] (Dr. Tera Lizama) Patient with a history of HFrEF, unknown last EF, presenting for several days of worsening orthopnea. New oxygen requirement on 2L NC, CXR showed pulmonary edema but clinically doesn't appear volume overload. Pro-BNP 64,308. Unable to obtain prior TTE result from [place]. Trop elevated to 34, likely demand ischemia [...] 08/11/2024 progress note for cardiology notes from [place]. - Hold home lasix dose - Lopressor [...] Furosemide 20 mg PO every day Follows engineering lecturer at [place] (Dr. Tera Lizama) Patient with a history of HFrEF, unknown last EF, presenting for several days of worsening orthopnea. New oxygen requirement on 2L NC, CXR showed pulmonary edema but clinically doesn't appear volume overload. Pro-BNP 64,308. Unable to obtain prior TTE result from [place]. Trop elevated to 34, likely demand ischemia in the setting of acute infection. Widened QRS on EKG resolve once K was corrected. No evidence of acute ischemia on EKG. TTE on 08/11 with LVEF 32%, with reduced RV systolic function, biatrial enlargement, severe mitral regurgitation. Consider possible cardiogenic shock component to presentation of SUSNA and shock liver, as patient has been noted to be in afib with RVR. See 08/11/2024 progress note for cardiology notes from [place]. - Hold home lasix dose - Continue [...] Furosemide 20 mg PO every day Follows engineering lecturer at [place] (Dr. Tera Lizama) Patient with a history of HFrEF, unknown last EF, presenting for several days of worsening orthopnea. New oxygen requirement on 2L NC, CXR showed pulmonary edema but clinically doesn't appear volume overload. Pro-BNP 64,308. Unable to obtain prior TTE result from [place]. Trop elevated to 34, likely demand ischemia [...] 08/11/2024 progress note for cardiology notes from [place]. - Hold home lasix - Continue Lopressor [...] Furosemide 20 mg PO every day Follows engineering lecturer at [place] (Dr. Tera Lizama) Patient with a history of HFrEF, unknown last EF, presenting for several days of worsening orthopnea. New oxygen requirement on 2L NC, CXR showed pulmonary edema but clinically doesn't appear volume overload. Pro-BNP 64,308. Unable to obtain prior TTE result from [place]. Trop elevated to 34, likely demand ischemia [...] for further details for cardiology notes from [place]. - Hold home lasix - Increase Lopressor [...] Furosemide 20 mg PO every day Follows engineering lecturer at [place]. Patient with a history of HFrEF, unknown last EF, presenting for several days of worsening orthopnea. New oxygen requirement on 2L NC, CXR showed pulmonary edema but clinically doesn't appear volume overload. Pro-BNP 64,308. Unable to obtain prior TTE result from [place]. Trop elevated to 34, likely demand ischemia [...] Unable to obtain prior TTE result from [place]. Trop elevated to 34, likely demand ischemia [...] on admission. Per request from lab at [place], patient's most recent creatinines are elevated to 2.54-2.96. Patient has a history of CKD and was previously following with Dr. Graber at [facility], however, last appointment available in [facility] is from 04/24/2023. Renal following. Likely [...] on admission. Per request from lab at [place], patient's most recent creatinines are elevated to 2.54-2.96. Patient has a history of CKD and was previously following with Dr. Garber at [facility], however, last appointment available in [facility] is from 04/24/2023. Renal following. Likely ATN in setting of shock on presentation. Improving. Nephro consulted, appreciate recs: - Daily BMP - Ordered CPK to rule out rhabdo - 1.5L fluid restriction Assessment & Plan (08/18/2024 3:41 PM EDT): Cr elevated to 3.38 with an eGFR of 14 on admission. Per request from lab at [place], patient's most recent creatinines are elevated to 2.54-2.96. Patient has a history of CKD and was previously following with Dr. Garber at [facility], however, last appointment available in [facility] is from 04/24/2023. Renal following. Likely ATN in setting of shock on presentation. Improving. Nephro consulted, appreciate recs: - Daily BMP - Ordered CPK to rule out rhabdo - 1.5L fluid restriction Assessment & Plan (08/17/2024 2:57 PM EDT): Cr elevated to 3.38 with an eGFR of 14 on admission. Per request from lab at [place], patient's most recent creatinines are elevated to 2.54-2.96. Patient has a history of CKD and was previously following with Dr. Garber at [facility], however, last appointment available in [facility] is from 04/24/2023. Renal following. Likely ATN in setting of shock on presentation. Improving. Nephro consulted, appreciate recs: - Daily BMP - Ordered CPK to rule out rhabdo - 1.5L fluid restriction Assessment & Plan (08/16/2024 1:31 PM EDT): Cr elevated to 3.38 with an eGFR of 14 on admission. Per request from lab at [place], patient's most recent creatinines are elevated to 2.54-2.96. Patient has a history of CKD and was previously following with Dr. Garber at [facility], however, last appointment available in [facility] is from 04/24/2023. Renal following. Likely ATN in setting of shock on presentation. Improving. Nephro consulted, appreciate recs: - Daily BMP - Ordered CPK to rule out rhabdo - 1.5L fluid restriction Assessment & Plan (08/15/2024 2:33 PM EDT): Cr elevated to 3.38 with an eGFR of 14 on admission. Per request from lab at [place], patient's most recent creatinines are elevated to 2.54-2.96. Patient has a history of CKD and was previously following with Dr. Garber at [facility], however, last appointment available in [facility] is from 04/24/2023. Renal following. Likely ATN in setting of shock on presentation. Improving. - Daily BMP Assessment & Plan (08/15/2024 12:34 PM EDT): Cr elevated to 3.38 with an eGFR of 14 on admission. Per request from lab at [place], patient's most recent creatinines are elevated to 2.54-2.96. Patient has a history of CKD and was previously following with Dr. Garber at [facility], however, last appointment available in [facility] is from 04/24/2023. Renal following. Likely ATN in setting of shock on presentation. Improving. - Daily BMP Assessment & Plan (08/14/2024 8:36 PM EDT): Cr elevated to 3.38 with an eGFR of 14 on admission. Per request from lab at [place], patient's most recent creatinines are elevated to 2.54-2.96. Patient has a history of CKD and was previously following with Dr. Garber at [facility], however, last appointment available in [facility] is from 04/24/2023. Renal following. Likely ATN in setting of shock on presentation Assessment & Plan (2024 2:30 PM EDT): Cr elevated to 3.38 with an eGFR of 14 on admission. Per request from lab at [place], patient's most recent creatinines are elevated to 2.54-2.96. Patient has a history of CKD and was previously following with Dr. Garber at [facility], however, last appointment available in [facility] is from 04/24/2023. Renal following. - Patient will require close monitoring as well especially in the setting of hypothermia and septic shock on admission causing ischemic liver injury and worsening SUSAN. - Evidence of secondary hyperparathyroidism, renal is following Assessment & Plan (08/12/2024 7:50 PM EDT): Cr elevated to 3.38 with an eGFR of 14 on admission. Per request from lab at [place], patient's most recent creatinines are elevated to 2.54-2.96. Patient has a history of CKD and was previously following with Dr. Garber at [facility], however, last appointment available in [facility] is from 04/24/2023. Renal following. - [...] on admission. Per request from lab at [place], patient's most recent creatinines are elevated to 2.54-2.96. Patient has a history of CKD and was previously following with Dr. Garber at [facility], however, last appointment available in [facility] is from 04/24/2023. Renal following. - [...] on admission. Per request from lab at [place], patient's most recent creatinines are elevated to 2.54-2.96. Patient has a history of CKD and was previously following with Dr. Garber at [facility], however, last appointment available in [facility] is from 04/24/2023. Renal following. - Patient will require close monitoring as well especially in the setting of hypothermia and septic shock on admission causing ischemic liver injury and worsening SUSAN. - Strict I/O Assessment & Plan (08/09/2024 5:57 PM EDT): Cr elevated to 3.38 with an eGFR of 14 on admission. Per request from lab at [place], patient's most recent creatinines are elevated to 2.54-2.96. Patient has a history of CKD and was previously following with Dr. Garber at [facility], however, last appointment available in [facility] is from 04/24/2023. - Nephro following: [...] Used Date Smoking Tobacco: Never Assessed [facility] Utilities Answer Date Recorded In the past 12 months has [employer], [employer], oil, or water [employer] threatened to shut off services in your [...] complete this topic Procedures * Due to [facility] law, this organization might not be [...] to Health Maintenance Results * Due to [place] [employer] law, this organization might not be sharing negative HIV tests. * (ABNORMAL) CBC Auto Differential (08/20/2024 6:44 AM EDT) WBC 6.2 3.8 - 10.8 10*3/uL 08/20/2024 7:40 AM EDT [facility] RBC 3.24(L) 3.80 - 5.10 10*6/uL 08/20/2024 7:40 AM EDT [facility] Hemoglobin 7.7(L) 11.7 - 15.5 g/dL 08/20/2024 7:40 AM EDT [facility] Hematocrit 26.1(L) 35.0 - 45.0 % 08/20/2024 7:40 AM EDT [facility] MCV 80.6 80.0 - 100.0 fL 08/20/2024 7:40 AM EDT [facility] MCH 23.8(L) 27.0 - 33.0 pg 08/20/2024 7:40 AM EDT [facility] MCHC 29.5(L) 32.0 - 36.0 g/dL 08/20/2024 7:40 AM EDT [facility] RDW 16.9(H) 11.0 - 15.0 % 08/20/2024 7:40 AM EDT [facility] Platelets 196 140 - 400 10*3/uL 08/20/2024 7:40 AM EDT [facility] MPV 10.9 7.5 - 12.5 fL 08/20/2024 7:40 AM EDT [facility] Neutrophil % 65.4 % 08/20/2024 7:40 AM EDT [facility] Immature Grans % 0.5 0.0 - 0.9 % 08/20/2024 7:40 AM EDT [facility] Lymphocyte % 20.8 % 08/20/2024 7:40 AM EDT [facility] Monocyte % 10.2 % 08/20/2024 7:40 AM EDT [facility] Eosinophil % 2.4 % 08/20/2024 7:40 AM EDT [facility] Basophil % 0.7 % 08/20/2024 7:40 AM EDT [facility] Neutrophil # 4.02 1.50 - 7.80 10*3/uL 08/20/2024 7:40 AM EDT [facility] Immature Grans # 0.03 <=0.03 10*3/uL 08/20/2024 7:40 AM EDT [facility] Lymphocyte # 1.30 0.85 - 3.90 10*3/uL 08/20/2024 7:40 AM EDT [facility] Monocyte # 0.60 0.20 - 0.95 10*3/uL 08/20/2024 7:40 AM EDT [facility] Eosinophil # 0.20 0.02 - 0.50 10*3/uL 08/20/2024 7:40 AM EDT [facility] Basophil # <0.03 0.00 - 0.20 10*3/uL 08/20/2024 7:40 AM EDT [facility] nRBC % 0.0 /100 WBCs 08/20/2024 7:40 AM EDT [email or web address] nRBC # <0.01 <0.01 10*3/uL 08/20/2024 7:40 AM EDT [facility] Blood Structure of peripheral vein / Unknown Venipuncture / Unknown 08/20/2024 6:44 AM EDT 08/20/2024 7:26 AM EDT us Jared Bell MD PhD LAB BLOOD ORDERABLES Final Resu lt [email or web address] [address] [place] [address], [place] * (ABNORMAL) Basic Metabolic Panel (08/20/2024 6:44 AM EDT) NA 144 135 - 145 mmol/L 08/20/2024 8:21 AM EDT [facility] K 4.7 3.5 - 5.3 mmol/L 08/20/2024 8:21 AM EDT [facility] Cl 111(H) 98 - 107 mmol/L 08/20/2024 8:21 AM EDT [facility] CO2 23 22 - 32 mmol/L 08/20/2024 8:21 AM EDT [facility] BUN 42(H) 7 - 23 mg/dL 08/20/2024 8:21 AM EDT [facility] Creatinine 2.36(H) 0.50 - 1.20 mg/dL 08/20/2024 8:21 AM EDT [facility] Glucose 86 65 - 99 mg/dL 08/20/2024 8:21 AM EDT [facility] Calcium 9.1 8.6 - 10.5 mg/dL 08/20/2024 8:[address] [facility] Anion Gap 10 5 - 15 08/20/2024 8:21 AM EDT [facility] eGFR 22(L) >=60 mL/min/1 .73m2 08/20/2024 8:21 AM EDT [facility] Comment:The estimated glomer ular [...] PhD LAB BLOOD ORDERABLES Final Resu lt [facility] [address] [place] [address], * (ABNORMAL) PTH, Intact and Calcium (08/12/2024 6:51 AM EDT) Parathyroid Hormone, Intact 203(H) 16 - 77 pg/mL 2024 4:01 AM EDT [facility] Comment: Interpretive Guide ?Intact PTH ? Calcium ? ------- Normal Parathyroid ?Normal ? Normal Hypoparathyroidism ?Low or Low Normal ?Low Hyperparathyroidism ?? Primary ?Normal or High ? High ?? Secondary ?High ? Normal or Low ?? Tertiary ? High ? High Non-Parathyroid ?? Hypercalcemia ?Low or Low Normal ?High Calcium 8.2(L) 8.6 - 10.4 mg/dL 2024 4:01 AM EDT [facility] Blood Structure of peripheral vein / Unknown Venipuncture / Unknown 08/12/2024 6:51 AM EDT 08/12/2024 7:38 AM EDT Narrative [facility] - 2024 4:01 AM EDT [facility] Received Date: Brigitte Duke MD LAB BLOOD ORDERABLES Final Resul t [facility] [address], [place] [address], [employer] [facility] [address] [facility] [address] Floor, [place] [address], [place] [phone] * Phosphorus (08/12/2024 6:51 AM EDT) Phosphorus 3.7 2.5 - 4.5 mg/dL 08/12/2024 9:17 AM EDT [facility] Blood Structure of peripheral vein / Unknown Venipuncture / Unknown 08/12/2024 6:51 AM EDT 08/12/2024 7:38 AM EDT us Brigitte Duke MD LAB BLOOD ORDERABLES Final Resul t [facility] [address] [place] [address], [place] * Hepatitis Panel, Acute (08/09/2024 10:04 AM EDT) Hepatitis A IgM NON-REACT TRINH NON-REACT TRINH 08/09/2024 8:26 PM EDT [facility] Hepatitis B Surface Antigen NON-REACT TRINH NON-REACT TRINH 08/09/2024 8:26 PM EDT [facility] Hepatitis B Core Antibody NON-REACT TRINH NON-REACT TRINH 08/09/2024 8:26 PM EDT [facility] Hepatitis C Antibody NON-REACT TRINH NON-REACT TRINH 08/09/2024 8:26 PM EDT [facility] Comment: HCV antibody was non-reactive. There is no laboratory evidence of HCV infection. In most cases, no further action is required. However, if recent HCV exposure is suspected, a test for HCV RNA (test code 93555) is suggested. For additional information please refer to http://[employer]/faq/IDZ86o1 (This link is being provided for informational/ educational purposes only.) For additional information, please refer to http://[employer]/faq/UWV357 (This link is being provided for informational/ educational purposes only.) Blood Structure of peripheral vein / Unknown Venipuncture / Unknown 08/09/2024 10:04 AM EDT 08/09/2024 10:12 AM EDT Narrative [facility] 08/09/2024 8:26 PM EDT [facility] Received Date: April Ann MD LAB BLOOD ORDERABLES Final Resul t [address] 3[address] Floor, [place] [address], [place] [phone] [facility] [address], [place] [address], [place] [phone] from Last 3 Months or Most Recently Relevant to Health Maintenance Insurance [facility] FEDERAL MEDICARE Advance Directives Documents on File Type Date Recorded Patient Human Service Specialist Expl anation Health Care Proxy 08/11/2024 4:04 PM Aliya Vasquez 03-2 * Full Code (Latest Code Status on File) Date Activated Date Inactivated Comments 08/09/2024 8:23 AM 08/20/2024 5:20 PM Healthcare Agents on File Name Relationship Healthcare Agent Relationshi p Communication Aliya Vasquez Sister Health Care Agent Care Teams Steam Box Hand Relationship Specialty Start Date End Date No, Referring PCP - General 08/08/24
--- OUTSIDE RECORDS SUMMARY | 2025-01-29 03:01 | XMS_ITS | Encounter Summary ---
Author Organization [facility] Address [address] [place] [address] Care Team Providers Care Supply Chain Planner Name Role Phone Unavailable Primary Care Provider Unavailabl e Encounter Details Date Type Department Care Team (Late st Contact Info) Description 09/04/2024 Lab Requisition [facility] - Main Lab [address] [facility] [place] [address] Molly Servin MD [address] [place] [address] Hypotension, unspecified Social History Tobacco Use Types [...] LAB CHEMISTRY METHOD 09/04/2024 11:04 AM EST [facility] Potassium 4.1 3.5 - 5.5 mmol/L LAB CHEMISTRY METHOD 09/04/2024 11:04 AM EST [facility] Chloride 109 96 - 110 mmol/L LAB CHEMISTRY METHOD 09/04/2024 11:04 AM [facility] LAB CO2 28 21 - 32 mmol/L LAB CHEMISTRY METHOD 09/04/2024 11:04 AM [facility] LAB Anion Gap 7 3 - 11 LAB CHEMISTRY METHOD 09/04/2024 11:04 AM [facility] LAB Glucose 76 70 - 100 mg/dL LAB CHEMISTRY METHOD 09/04/2024 11:04 AM [facility] BUN 34(H) 5 - 25 mg/dL LAB CHEMISTRY METHOD 09/04/2024 11:04 AM [facility] LAB Creatinine 1.73(H) 0.50 - 1.10 mg/dL LAB CHEMISTRY METHOD 09/04/2024 11:04 AM [facility] LAB eGFR 31(L) >=60 mL/min/1. 73m2 LAB CHEMISTRY METHOD 09/04/2024 11:04 AM [facility] LAB Comment:Calculation based on the??Chronic Kidney Disease Epidemiology Collaboration (CKD-EPI) equation refit??without adjustment for race. BUN/Creatinine Ratio 19.7 LAB CHEMISTRY METHOD 09/04/2024 11:04 AM [facility] LAB Calcium 8.9 8.5 - 10.5 mg/dL LAB CHEMISTRY METHOD 09/04/2024 11:04 AM [facility] LAB Blood Venous blood specimen / Unknown Venipuncture / Unknown 09/04/2024 8:08 AM EST 09/04/2024 9:58 AM EST us Molly Servin MD LAB BLOOD ORDERABLES Final Resul t [facility] [address] [place] [address], * (ABNORMAL) Complete blood count (09/04/2024 8:08 AM EST) WBC 5.0 4.8 - 10.8 K/mcL LAB HEMETOLOGY METHOD 09/04/2024 10:41 AM [facility] RBC 3.50(L) 3.80 - 4.80 M/mcL LAB HEMETOLOGY METHOD 09/04/2024 10:41 AM [facility] LAB Hemoglobin 8.8(L) 11.5 - 16.0 g/dL LAB HEMETOLOGY METHOD 09/04/2024 10:41 AM [facility] LAB Hematocrit 29.4(L) 35.0 - 47.0 % LAB HEMETOLOGY METHOD 09/04/2024 10:41 AM [facility] LAB MCV 83.5 79.0 - 98.0 FL LAB HEMETOLOGY METHOD 09/04/2024 10:41 AM [facility] LAB MCH 25.0(L) 27.0 - 32.0 pcg LAB HEMETOLOGY METHOD 09/04/2024 10:41 AM [facility] LAB MCHC 29.9(L) 32.0 - 37.0 g/dL LAB HEMETOLOGY METHOD 09/04/2024 10:41 AM [facility] LAB RDW 19.9(H) 11.0 - 15.0 % LAB HEMETOLOGY METHOD 09/04/2024 10:41 AM [facility] LAB Platelets 248 130 - 400 K/mcL LAB HEMETOLOGY METHOD 09/04/2024 10:41 AM [facility] LAB MPV 10.2 7.0 - 11.0 FL LAB HEMETOLOGY METHOD 09/04/2024 10:41 AM [facility] LAB NRBC 0.0 <1.0 % LAB HEMETOLOGY METHOD 09/04/2024 10:41 AM [facility] LAB NRBC Absolute 0.00 <0.10 K/mcL LAB HEMETOLOGY METHOD 09/04/2024 10:41 AM [facility] Blood Venous blood specimen / Unknown Venipuncture / Unknown 09/04/2024 8:08 AM EST 09/04/2024 9:58 AM EST us Molly Servin MD LAB BLOOD ORDERABLES Final Resul t [facility] [address] [place] [address], documented in this encounter Visit Diagnoses Diagnosis Hypotension, unspecified documented in this encounter
--- OUTSIDE RECORDS SUMMARY | 2025-01-29 03:01 | XMS_ITS | Encounter Summary ---
Author Organization [facility] Address [address] [facility] [address] [place] [address] Phone Care Team Providers Care Clinical Nursing Director Name Role Phone Rod Wakefield MD Primary Care Provider + Reason for Visit * Reason Comments Med Refill Encounter Details Date Type Department Care Team (Late st Contact Info) Description 01/30/2022 Refill [facility] [address] [place] [address] Oneil Garber MD [address] [facility] [address] [place] [phone] Essential (primary) hypertension; Stage 3a chronic kidney [...] (HCC) documented in this encounter Care Teams Clinical Nursing Director Relationship Specialty Start Date End Date Rod Wakefield MD [address] , [facility] [address] [place] [address] PCP - General Internal Medicine 05/28/21 documented as of this encounter
[2025-01-29 03:05] LABS: B Type Natriuretic Peptide 313 pg/mL (<100)
[2025-01-29] MEDS: 0.9 % Sodium Chloride 1,000 ML 100 ML IVCONT (03:40)
[2025-01-29 05:37] LABS: MANUAL DIFF FLAG NO
[2025-01-29 05:39] LABS: Basophils Absolute Auto 0.1 X10*3/uL (0.0-0.2); Basophils Percent Auto 0.5 % (0-2); Eosinophils Absolute Auto 0.1 X10*3/uL (0.0-0.4); Eosinophils Percent Auto 1.3 % (0-4); Hematocrit 32.7 % (37.0-47.0); Hemoglobin 10.4 g/dl (12.0-16.0); Imm Gran Abs Auto 0.04 X10*3/uL (0.00-0.03); Imm Gran Pct Auto 0.4 % (0.0-0.4); Lymphocytes Absolute Auto 1.6 X10*3/uL (1.2-4.9); Lymphocytes Percent Auto 15.3 % (20-40); Mean Corpuscular HGB Conc 31.8 g/dl (31.0-35.0); Mean Corpuscular Hemoglobin 23.5 pg (27.0-33.0); Mean Platelet Volume 9.7 fL (9.4-12.3); Monocytes Absolute Auto 0.9 X10*3/uL (0.1-1.2); Monocytes Percent Auto 8.7 % (2-11); Neutrophils Absolute Auto 7.6 x10*3/uL (2.0-8.3); Neutrophils Percent Auto 73.8 % (45-73); Platelet Count 303 X10*3/uL (160-400); Red Blood Count 4.42 X10*6/uL (4.20-5.50); Red Cell Distribution Width 17.1 % (11.0-16.0); White Blood Count 10.3 X10*3/uL (4.8-10.8)
[2025-01-29] MEDS: Omeprazole 20 MG CAPSULE.DR PO ×2 (05:56→12:13)
[2025-01-29 06:09] LABS: Alanine Aminotransferase 12 U/L (0-31); Albumin Level 2.9 g/dL (3.5-5.0); Alkaline Phosphatase 99 U/L (39-117); Anion Gap 13 (12-20); Aspartate Amino Transferase 19 U/L (5-31); Bilirubin Total 0.2 mg/dL (0.0-1.0); Blood Urea Nitrogen 29 mg/dL (9-16); Calcium 8.5 mg/dL (8.4-10.2); Carbon Dioxide 23 mmol/L (22-29); Chloride 107 mmol/L (96-108); Creatinine Clr Calc Pharmacy 25.7; Estimated Glomerular Filt Rate 26; Glucose Random 99 mg/dL (60-115); Potassium 2.9 mmol/L (3.3-5.1); Sodium 140 mmol/L (135-145); Total Protein 6.5 g/dL (6.5-8.0)
[2025-01-29 06:18] LABS: Thyroid Stimulating Hormone 5.43 uIU/mL (0.32-4.0)
[2025-01-29] MEDS: Potassium Chloride/H20 10 MEQ/100 ML PIGGYBACK 100 MEQ IV ×4 (07:19→10:25)
--- NOTE | 2025-01-29 07:29 | PC.NURSE ---
Pt is alert/oriented. Denies pain or discomfort. A fib on tele rate 70-80s. No SOB Sat 98% on room air and breathing easy. Refused K+ on prior shift and IV K+ initiated and infusing at this time. Declines breakfast although juice and banana provided from tray. Skin sl pale, warm and dry. Awaits bed assgn
--- NOTE | 2025-01-29 07:43 | HO.PM.IMPN ---
Subjective Subjective Date of Service: 01/29/25 Interval History: f/u on afib with rve, uti, weakness, hypokalemia HR is better, still doesn't feel good, weak Physical Exam Vital Signs: Vital Signs: Last Vital Signs Temp 97.9 F 01/29/25 05:55 Pulse 78 01/29/25 05:55 Resp 16 01/29/25 05:55 BP 101/53 L 01/29/25 05:55 Pulse Ox 98 01/29/25 05:55 O2 Del Method Room Air 01/29/25 05:55 BMI result Body Mass Index 24.2 Const: Other: General: AO X 3, no acute distress Resp: CTA bilateral CVS: S1,S2, iregular iregular GI: +BS, NT, no distention Skin: No rash Neuro: motor grossly intact Psych: appropriate affect Objective Data Active Medications Acetaminophen (Acetaminophen 325 Mg Tablet) 650 mg PO Q6H PRN PRN Reason: Pain, Mild 1-3,fever,headache Albuterol/Ipratropium (Albuterol/Iprat 2.5/0.5mg 3 Ml Ampul.Neb) 3 ml INHALE Q4H PRN PRN Reason: Shortness of Breath/Wheezing Amiodarone HCl (Amiodarone Hcl 200 Mg Tablet) 200 mg PO DAILY JOSE Apixaban (Apixaban 5 Mg Tablet) 5 mg PO BID JOSE Calcium Carbonate (Calcium Carbonate 750 Mg Tab.Chew) 750 mg PO Q4H PRN PRN Reason: Heartburn Ceftriaxone Sodium (Ceftriaxone Sodium 1 Gm Vial) 1 gm IVPUSH Q24H [facility] Sodium Chloride (Ns) 1,000 mls @ 100 mls/hr IVCONT .Q10H [facility] Stop: 01/29/25 12:59 Last Admin: 01/29/25 03:40 Dose: 100 mls/hr Documented By: YUDY Potassium Chloride (Potassium Chloride/H20) 10 meq in 100 mls @ 100 mls/hr IV Q1H [facility] Stop: 01/29/25 10:59 Last Admin: 01/29/25 07:19 Dose: 100 mls/hr Documented By: SAVITA Magnesium Hydroxide (Milk Of Magnesia 30 Ml Oral.Susp) 30 ml PO DAILY PRN PRN Reason: Constipation Melatonin (Melatonin 3 Mg Tablet) 6 mg PO BEDTIME PRN PRN Reason: Insomnia Omeprazole (Omeprazole 20 Mg Capsule.Dr) 20 mg PO DAILY@0630 [facility] Last Admin: 01/29/25 05:56 Dose: 20 mg Documented By: YUDY Ondansetron HCl (Ondansetron Hcl 4 Mg/2 Ml Vial) 4 mg IVPUSH Q8H PRN PRN Reason: Nausea and Vomiting Potassium Chloride (Potassium Chloride Er 20 Meq Tab.Er.Prt) 20 meq PO DAILY [facility] Sodium Chloride (0.9 % Sodium Chloride Flush 3 Ml Syringe) 3 ml IVFLUSH QSHIFT [facility] Last Admin: 01/29/25 07:20 Dose: Not Given Documented By: SAVITA Non-Admin Reason: IV Running Labs 01/29/25 05:13 01/29/25 05:13 Labs: Laboratory Results - last 24 hr 01/28/25 01/29/25 01/29/25 19:48 01:26 02:19 MCV 74.3 L MCH 23.8 L MCHC 32.0 RDW 17.2 H Plt Count 354 MPV 9.4 Immature Gran % (Auto) 0.4 Neut % (Auto) 77.1 H Lymph % (Auto) 14.1 L Spalding % (Auto) 6.8 Eos % (Auto) 1.0 Baso % (Auto) 0.6 Lymph # (Auto) 1.1 L [place] # (Auto) 0.6 Eos # (Auto) 0.1 Baso # (Auto) 0.1 Abs Immat Gran (auto) 0.03 Absolute Neuts (auto) 6.3 Absolute Nucleated RBC 0.000 Nucleated RBC % (auto) 0.0 PT 28.7 H INR 2.5 H APTT 36.8 Anion Gap 16 Estim Creat Clear Calc 23.0 Estimated GFR 23 Random Glucose 99 Lactic Acid 2.0 Calcium 9.8 D Total Bilirubin 0.4 AST 22 ALT 17 Alkaline Phosphatase 117 Total Creatine Kinase B-Natriuretic Peptide 313 H Total Protein 7.6 Albumin 3.5 TSH Urine Color Yellow Urine Appearance Cloudy Urine pH 6.0 Ur Specific Maize 1.010 Urine Protein Trace Urine Glucose (UA) Negative Urine Ketones Negative Urine Blood Negative Urine Nitrite Negative Ur Leukocyte Esterase Moderate (2+) H Urine RBC 0-2 Urine WBC 21-50 H Ur Squamous Epith Cells 0-2 Urine Bacteria 4+ Hyaline Casts 0-2 Influenza Type A (PCR) NEGATIVE Influenza Type B (PCR) NEGATIVE RSV RNA Qual (PCR) NEGATIVE SARS-CoV-2 RNA (RT-PCR) NEGATIVE 01/29/25 05:13 MCV 74.0 L MCH 23.5 L MCHC 31.8 RDW 17.1 H Plt Count 303 MPV 9.7 Immature Gran % (Auto) 0.4 Neut % (Auto) 73.8 H Lymph % (Auto) 15.3 L [place] % (Auto) 8.7 Eos % (Auto) 1.3 Baso % (Auto) 0.5 Lymph # (Auto) 1.6 Spalding # (Auto) 0.9 Eos # (Auto) 0.1 Baso # (Auto) 0.1 Abs Immat Gran (auto) 0.04 H Absolute Neuts (auto) 7.6 Absolute Nucleated RBC 0.000 Nucleated RBC % (auto) 0.0 PT INR APTT Anion Gap 13 Estim Creat Clear Calc 25.7 Estimated GFR 26 Random Glucose 99 Lactic Acid Calcium 8.5 D Total Bilirubin 0.2 AST 19 ALT 12 Alkaline Phosphatase 99 Total Creatine Kinase 32 B-Natriuretic Peptide Total Protein 6.5 Albumin 2.9 L TSH 5.43 H Urine Color Urine Appearance Urine pH Ur Specific Maize Urine Protein Urine Glucose (UA) Urine Ketones Urine Blood Urine Nitrite Ur Leukocyte Esterase Urine RBC Urine WBC Ur Squamous Epith Cells Urine Bacteria Hyaline Casts Influenza Type A (PCR) Influenza Type B (PCR) RSV RNA Qual (PCR) SARS-CoV-2 RNA (RT-PCR) Assessment and Plan (1) Atrial fibrillation with rapid ventricular response: Status: Acute Plan Patient is a 69-year-old female with past medical history multiple sclerosis remitting relapsing not currently on injectables, COPD not currently on home O2, chronic kidney disease stage 4, hypothyroidism, urinary tract infection, urinary retention, atrial fibrillation on anticoagulation, heart failure with reduced ejection fracture, COVID, cataract repair, peripheral arterial disease, non STEMI, left hip replacement. Admitted for UTI, AFIB with RVR and weakness AFIB w/ RVR, up to 150s, now rate controlled, following IV diltiazem continue home meds with amio and metoprolol continue eliquis cardiology eval if persists Orthostatic hypotension/ no syncope, related to dehydation, diarrhea iv cardizem recheck after hydration, hold lasix/terazosin Urinary tract infection/ hx of urinary retention/neurogenic bladdder continue ceftriaxoe, follow cultures Diarrhea and associated dehydration Stool panel and C diff sent IVF and follow electorlyes Hypokalemia d/t diarrhea PO K replacement and check mag Generalized weakness d/t uti Physical therapy consulted Multiple sclerosis relapsing remitting Chronic with no recent flares. outpatient follow up Chronic kidney disease stage IV, Cr stable within baseline Hypothyroidism, TSH 5.43, FT4 pending Continue levothyroxine and adjust as needed COPD patient is not on home O2, no exacerbation, inhalers prn . HFrEFBNP is elevated at 313, no exacerbation resume home meds as needed DVT prophylaxis: Apixaban PPI prophylaxis: Omeprazole admission for at least 2 midnights for management with afib with rvr needing iv meds, and close monitoring Quality Stroke Does the patient have a stroke diagnosis?: No Reason for No Anti-thrombotic by Day Two: N/A - Med Ordered VTE Prior VTE?: No VTE Risk Level:: Medical - moderate - high VTE Device Contraindication: N/A - Device Ordered VTE Drug Contraindication: N/A - Med Ordered
[2025-01-29 08:05] LABS: Magnesium 2.1 mg/dL (1.6-2.6)
--- NOTE | 2025-01-29 08:23 | PHA.MEDREC ---
Pharmacy Consult ? Medication Reconciliation Pharmacy has completed the medication reconciliation. Spoke to pt to confirm meds. Pt reports not using Advair for weeks d/t insurance no longer covering medication. Leaving on med rec.
[2025-01-29] MEDS: Amiodarone HCL 200 MG TABLET PO (08:31)
[2025-01-29] MEDS: Apixaban 5 MG TABLET PO ×2 (08:31→20:06)
--- OUTSIDE RECORDS SUMMARY | 2025-01-29 09:37 | XMS_ITS | Clinical Summary ---
Author Organization [facility] Facility Address [address] [address] Care Team Providers Care Psychological Assistant Name Role Phone Rod Wakefield MD Primary [...] age to complete this topic Insurance MEDICARE [facility] MEDICARE [facility] Care Teams Psychological Assistant Relationship Specialty Start Date End Date Rod Wakefield MD [address] [place] [address] PCP - General Internal Medicine 05/28/21
--- OUTSIDE RECORDS SUMMARY | 2025-01-29 09:37 | XMS_ITS | Encounter Summary ---
Author Organization [facility] Address [address] [place] [address] Care Team Providers Care Mass Communications Professor Name Role Phone Unavailable Primary Care Provider Unavailabl e Encounter Details Date Type Department Care Team (Late st Contact Info) Description 09/04/2024 Lab Requisition [facility] - Main Lab [address] [facility] [place] [address] Molly Servin MD [address] [place] [address] Hypotension, unspecified Social History Tobacco Use Types [...] mmol/L LAB CHEMISTRY METHOD 09/04/2024 11:04 AM [facility] LAB CO2 28 21 - 32 mmol/L LAB CHEMISTRY METHOD 09/04/2024 11:04 AM [facility] LAB Anion Gap 7 3 - 11 LAB CHEMISTRY METHOD 09/04/2024 11:04 AM [facility] LAB Glucose 76 70 - 100 mg/dL LAB CHEMISTRY METHOD 09/04/2024 11:04 AM [facility] LAB BUN 34(H) 5 - 25 mg/dL LAB CHEMISTRY METHOD 09/04/2024 11:04 AM [facility] LAB Creatinine 1.73(H) 0.50 - 1.10 mg/dL LAB CHEMISTRY METHOD 09/04/2024 11:04 AM [facility] LAB eGFR 31(L) >=60 mL/min/1. 73m2 LAB CHEMISTRY METHOD 09/04/2024 11:04 AM [facility] LAB Comment:Calculation based on the??Chronic Kidney Disease Epidemiology Collaboration (CKD-EPI) equation refit??without adjustment for race. BUN/Creatinine Ratio 19.7 LAB CHEMISTRY METHOD 09/04/2024 11:04 AM [facility] Calcium 8.9 8.5 - 10.5 mg/dL LAB CHEMISTRY METHOD 09/04/2024 11:04 AM [facility] LAB Blood Venous blood specimen / Unknown Venipuncture / Unknown 09/04/2024 8:08 AM EST 09/04/2024 9:58 AM EST us Molly Servin MD LAB BLOOD ORDERABLES Final Resul t [facility] [address] [place] [address], * (ABNORMAL) Complete blood count (09/04/2024 8:08 AM EST) WBC 5.0 4.8 - 10.8 K/mcL LAB HEMETOLOGY METHOD 09/04/2024 10:41 AM [facility] LAB RBC 3.50(L) 3.80 - 4.80 M/mcL LAB HEMETOLOGY METHOD 09/04/2024 10:41 AM [facility] LAB Hemoglobin 8.8(L) 11.5 - 16.0 g/dL LAB HEMETOLOGY METHOD 09/04/2024 10:41 AM [facility] LAB Hematocrit 29.4(L) 35.0 - 47.0 % LAB HEMETOLOGY METHOD 09/04/2024 10:41 AM [facility] LAB MCV 83.5 79.0 - 98.0 FL LAB HEMETOLOGY METHOD 09/04/2024 10:41 AM [facility] LAB MCH 25.0(L) 27.0 - 32.0 pcg LAB HEMETOLOGY METHOD 09/04/2024 10:41 AM [facility] LAB MCHC 29.9(L) 32.0 - 37.0 g/dL LAB HEMETOLOGY METHOD 09/04/2024 10:41 AM [facility] LAB RDW 19.9(H) 11.0 - 15.0 % LAB HEMETOLOGY METHOD 09/04/2024 10:41 AM [facility] LAB Platelets 248 130 - 400 K/mcL LAB HEMETOLOGY METHOD 09/04/2024 10:41 AM [facility] LAB MPV 10.2 7.0 - 11.0 FL LAB HEMETOLOGY METHOD 09/04/2024 10:41 AM [facility] LAB NRBC 0.0 <1.0 % LAB HEMETOLOGY METHOD 09/04/2024 10:41 AM [facility] LAB NRBC Absolute 0.00 <0.10 K/mcL LAB HEMETOLOGY METHOD 09/04/2024 10:41 AM [facility] LAB Blood Venous blood specimen / Unknown Venipuncture / Unknown 09/04/2024 8:08 AM EST 09/04/2024 9:58 AM EST us Molly Servin MD LAB BLOOD ORDERABLES Final Resul t [facility] [address] [place] [address], documented in this encounter Visit Diagnoses Diagnosis Hypotension, unspecified documented in this encounter
--- OUTSIDE RECORDS SUMMARY | 2025-01-29 09:38 | XMS_ITS | Encounter Summary ---
Author Organization [facility] Address [address] [place] [address] Care Team Providers Care Laboratory Animal Facility Supervisor Name Role Phone Unavailable Primary Care Provider Unavailabl e Encounter Details Date Type Department Care Team (Late st Contact Info) Description 09/02/2024 Lab Requisition [facility] - Main Lab [address] [facility] [place] [address] Molly Servin MD [address] [place], [place] [phone] Anemia, unspecified Social History Tobacco Use Types [...] AM EST) WBC 8.5 4.8 - 10.8 K/[facility] LAB HEMETOLOGY METHOD 09/02/2024 8:22 AM EST [facility] LAB RBC 3.30(L) 3.80 - 4.80 M/[facility] LAB HEMETOLOGY METHOD 09/02/2024 8:22 AM EST [facility] LAB Hemoglobin 8.2(L) 11.5 - 16.0 g/dL LAB HEMETOLOGY METHOD 09/02/2024 8:22 AM EST [facility] LAB Hematocrit 27.8(L) 35.0 - 47.0 % LAB HEMETOLOGY METHOD 09/02/2024 8:22 AM EST [facility] LAB MCV 83.5 79.0 - 98.0 FL LAB HEMETOLOGY METHOD 09/02/2024 8:22 AM [facility] LAB MCH 24.6(L) 27.0 - 32.0 pcg LAB HEMETOLOGY METHOD 09/02/2024 8:22 AM [facility] LAB MCHC 29.5(L) 32.0 - 37.0 g/dL LAB HEMETOLOGY METHOD 09/02/2024 8:22 AM [facility] LAB RDW 19.9(H) 11.0 - 15.0 % LAB HEMETOLOGY METHOD 09/02/2024 8:22 AM [facility] LAB Platelets 230 130 - 400 K/mcL LAB HEMETOLOGY METHOD 09/02/2024 8:22 AM EST [facility] LAB MPV 10.5 7.0 - 11.0 FL LAB HEMETOLOGY METHOD 09/02/2024 8:22 AM [facility] LAB NRBC 0.0 <1.0 % LAB HEMETOLOGY METHOD 09/02/2024 8:22 AM [facility] LAB NRBC Absolute 0.00 <0.10 K/mcL LAB HEMETOLOGY METHOD 09/02/2024 8:22 AM [facility] Blood Venous blood specimen / Unknown Venipuncture / Unknown 09/02/2024 5:42 AM EST 09/02/2024 7:50 AM EST us Molly Servin MD LAB BLOOD ORDERABLES Final Resul t [facility] LAB [address] [place] [address], documented in this encounter Visit Diagnoses Diagnosis Anemia, unspecified documented in this encounter
--- OUTSIDE RECORDS SUMMARY | 2025-01-29 09:38 | XMS_ITS | Encounter Summary ---
Author Organization [facility] Address [address] [facility] [address] [place] [address] Phone Care Team Providers Care Applied Psychology Professor Name Role Phone Rod Wakefield MD Primary Care Provider + Encounter Details Date Type Department Care Team (Late st Contact Info) Description 03/08/2021 Orders Only [facility] [address] [place] [address] Oneil Gabrer MD [address] [facility] [address] [place] [phone] Renal artery stenosis (HCC) Social History Tobacco [...] (HCC) documented in this encounter Care Teams Applied Psychology Professor Relationship Specialty Start Date End Date Rod Wakefield MD [address] [place], [place] [phone] PCP - General Internal Medicine 05/28/21 documented as of this encounter
--- OUTSIDE RECORDS SUMMARY | 2025-01-29 09:38 | XMS_ITS | Encounter Summary ---
Author Organization [facility] Address [address] [place] [address] Care Team Providers Care Customer Support Analyst Name Role Phone Unavailable Primary Care Provider Unavailabl e Encounter Details Date Type Department Care Team (Late st Contact Info) Description 08/28/2024 Lab Requisition [facility] - Main Lab [address] [facility] [place] [address] Molly Servin MD [address] [place], [place] [id number] Shortness of breath Social History Tobacco Use [...] (ABNORMAL) Vitamin B12 (08/30/2024 7:38 AM EST) [facility] Signature Vitamin B-12 1,750(H) 250 - 900 pcg/mL LAB CHEMISTRY METHOD 08/30/2024 10:18 PM EST [facility] Blood Venous blood specimen / Unknown Venipuncture / Unknown 08/30/2024 7:38 AM EST 08/30/2024 9:32 AM EST us Molly Servin MD LAB BLOOD ORDERABLES Final Resul t Performing Organization Address City/[facility]/ZIP Co de Phone Number [facility] [address] [place] [address], [place] [phone] * Travel phlebotomy fee (08/30/2024 7:38 AM EST) [facility] HOME TRAVEL PHLEBOTOMY FEE Completed 08/30/2024 10:01 AM [facility] Blood Venous blood specimen / Unknown Venipuncture / Unknown 08/30/2024 7:38 AM EST 08/30/2024 9:32 AM EST us Molly Servin MD LAB BLOOD ORDERABLES Final Resul t Performing Organization Address City/[facility]/ZIP Co de Phone Number [facility] [address] [place] [address], [place] [phone] * (ABNORMAL) Basic metabolic panel (08/30/2024 7:38 AM EST) [facility] Sodium 143 133 - 145 mmol/L LAB CHEMISTRY METHOD 08/30/2024 10:57 AM [facility] Potassium 4.1 3.5 - 5.5 mmol/L LAB CHEMISTRY METHOD 08/30/2024 10:57 AM [facility] Chloride 107 96 - 110 mmol/L LAB CHEMISTRY METHOD 08/30/2024 10:57 AM [facility] CO2 30 21 - 32 mmol/L LAB CHEMISTRY METHOD 08/30/2024 10:57 AM [facility] Anion Gap 6 3 - 11 LAB CHEMISTRY METHOD 08/30/2024 10:57 AM [facility] Glucose 76 70 - 100 mg/dL LAB CHEMISTRY METHOD 08/30/2024 10:57 AM [facility] BUN 31(H) 5 - 25 mg/dL LAB CHEMISTRY METHOD 08/30/2024 10:57 AM [facility] Creatinine 1.87(H) 0.50 - 1.10 mg/dL LAB CHEMISTRY METHOD 08/30/2024 10:57 AM [facility] eGFR 28(L) >=60 mL/min/1. 73m2 LAB CHEMISTRY METHOD 08/30/2024 10:57 AM [facility] Comment:Calculation based on the??Chronic Kidney Disease Epidemiology Collaboration (CKD-EPI) equation refit??without adjustment for race. BUN/Creatinine Ratio 16.6 LAB CHEMISTRY METHOD 08/30/2024 10:57 AM [facility] Calcium 8.9 8.5 - 10.5 mg/dL LAB CHEMISTRY METHOD 08/30/2024 10:57 AM [facility] Blood Venous blood specimen / Unknown Venipuncture / Unknown 08/30/2024 7:38 AM EST 08/30/2024 9:32 AM EST us Molly Servin MD LAB BLOOD ORDERABLES Final Resul t [facility] [address] [place] [address], * (ABNORMAL) Complete blood count (08/30/2024 7:38 AM EST) WBC 6.0 4.8 - 10.8 K/mcL LAB HEMETOLOGY METHOD 08/30/2024 10:49 AM [facility] RBC 3.50(L) 3.80 - 4.80 M/mcL LAB HEMETOLOGY METHOD 08/30/2024 10:49 AM [facility] Hemoglobin 8.5(L) 11.5 - 16.0 g/dL LAB HEMETOLOGY METHOD 08/30/2024 10:49 AM [facility] Hematocrit 29.5(L) 35.0 - 47.0 % LAB HEMETOLOGY METHOD 08/30/2024 10:49 AM [facility] MCV 84.8 79.0 - 98.0 FL LAB HEMETOLOGY METHOD 08/30/2024 10:49 AM [facility] MCH 24.4(L) 27.0 - 32.0 pcg LAB HEMETOLOGY METHOD 08/30/2024 10:49 AM [facility] MCHC 28.8(L) 32.0 - 37.0 g/dL LAB HEMETOLOGY METHOD 08/30/2024 10:49 AM [facility] RDW 19.6(H) 11.0 - 15.0 % LAB HEMETOLOGY METHOD 08/30/2024 10:49 AM [facility] Platelets 223 130 - 400 K/mcL LAB HEMETOLOGY METHOD 08/30/2024 10:49 AM [facility] MPV 10.4 7.0 - 11.0 FL LAB HEMETOLOGY METHOD 08/30/2024 10:49 AM [facility] NRBC 0.0 <1.0 % LAB HEMETOLOGY METHOD 08/30/2024 10:49 AM EST [facility] NRBC Absolute 0.00 <0.10 K/mcL LAB HEMETOLOGY METHOD 08/30/2024 10:49 AM [facility] Blood Venous blood specimen / Unknown Venipuncture / Unknown 08/30/2024 7:38 AM EST 08/30/2024 9:32 AM EST us Molly Servin MD LAB BLOOD ORDERABLES Final Resul t [facility] [address] [place] [address], [place] [phone] documented in this encounter Visit Diagnoses Diagnosis Shortness of breath documented in this encounter
--- OUTSIDE RECORDS SUMMARY | 2025-01-29 09:38 | XMS_ITS | Referral Summary ---
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 Baseline per [place] [facility] Hgb ~8.5-10. No concern of GI [...] to 7.9/25.9 in the ED. Baseline per [place] lab Hgb ~8.5-10. No concern of GI bleed. - Eliquis per afib section - Start IV iron once stable from infection perspective Assessment & Plan (08/18/2024 3:41 PM EDT): Microcytic anemia. Home med: Iron sulfate 325 mg daily. Presented with H/H 9.3 and 32.5, down trending to 7.9/25.9 in the ED. Baseline per [place] lab Hgb ~8.5-10. No concern of GI bleed. - Eliquis per afib section - Start IV iron once stable from infection perspective Assessment & Plan (08/17/2024 2:57 PM EDT): Microcytic anemia. Home med: Iron sulfate 325 mg daily. Presented with H/H 9.3 and 32.5, down trending to 7.9/25.9 in the ED. Baseline per [place] lab Hgb ~8.5-10. No concern of GI bleed. - Eliquis per afib section - Start IV iron once stable from infection perspective Assessment & Plan (08/16/2024 1:21 PM EDT): Microcytic anemia. Home med: Iron sulfate 325 mg daily. Presented with H/H 9.3 and 32.5, down trending to 7.9/25.9 in the ED. Baseline per [place] lab Hgb ~8.5-10. No concern of GI bleed. - Restart home eliquis at lower dose - Start IV iron once stable from infection perspective Assessment & Plan (08/15/2024 2:33 PM EDT): Microcytic anemia. Home med: Iron sulfate 325 mg daily. Presented with H/H 9.3 and 32.5, down trending to 7.9/25.9 in the ED. Baseline per [place] lab Hgb ~8.5-10. No concern of GI bleed. - Holding home eliquis - Will begin IV iron once stable from infection perspective Assessment & Plan (08/15/2024 12:34 PM EDT): Microcytic anemia. Home med: Iron sulfate 325 mg daily. Presented with H/H 9.3 and 32.5, down trending to 7.9/25.9 in the ED. Baseline per [place] lab Hgb ~8.5-10. No concern of GI bleed. - Holding home eliquis - Will begin IV iron once stable from infection perspective Assessment & Plan (08/14/2024 8:36 PM EDT): Microcytic anemia. Home med: Iron sulfate 325 mg daily. Presented with H/H 9.3 and 32.5, down trending to 7.9/25.9 in the ED. Baseline per [place] [facility] Hgb ~8.5-10. No concern of GI [...] to 7.9/25.9 in the ED. Baseline per [place] [facility] Hgb ~8.5-10. No concern of GI [...] to 7.9/25.9 in the ED. Baseline per [place] [facility] Hgb ~8.5-10. No concern of GI [...] to 7.9/25.9 in the ED. Baseline per [place] [facility] Hgb ~8.5-10. No concern of GI bleed. - Holding home eliquis - IV iron started per HF section Assessment & Plan (08/10/2024 6:12 PM EDT): Microcytic anemia. Home med: Iron sulfate 325 mg daily. Presented with H/H 9.3 and 32.5, down trending to 7.9/25.9 in the ED. Baseline per [place] lab Hgb ~8.5-10. No concern of GI bleed. - Holding home anticoagulation Assessment & Plan (08/09/2024 5:57 PM EDT): Patient presented with nose bleeds. Found to be anemic with an H/H 9.3 and 32.5, down trending to 7.9/25.9 in the ED. Baseline per [place] lab hgb ~8.5-10. No concern of GI [...] Lopressor 50 mg BID, Follows Cardiology at [place]. Called [facility] pharmacy in [place] who reported that she didn't refill her [...] Lopressor 50 mg BID, Follows Cardiology at [place]. Called [facility] pharmacy in [place] who reported that she didn't refill her [...] Lopressor 50 mg BID, Follows Cardiology at [place]. Called [facility] pharmacy in [place] who reported that she didn't refill her [...] Lopressor 50 mg BID, Follows Cardiology at [place]. Called [facility] pharmacy in [place] who reported that she didn't refill her [...] Lopressor 50 mg BID, Follows Cardiology at [place]. Called [facility] pharmacy in [place] who reported that she didn't refill her [...] Lopressor 50 mg BID, Follows Cardiology at [place]. Called [facility] pharmacy in [place] who reported that she didn't refill her [...] Lopressor 50 mg BID, Follows Cardiology at [place]. Called [facility] pharmacy in [place] who reported that she didn't refill her [...] Lopressor 50 mg BID, Follows Cardiology at [place]. Called [facility] pharmacy in [place] who reported that she didn't refill her Eliquis in March 2024. Patient noted to be irregular, irregular on exam. - Hold home Eliquis and Amio due to acute liver failure. - Lopressor 50 mg BID Assessment & Plan (2024 2:30 PM EDT): Home med: Eliquis 2.5 mg BID, Amio 200 mg daily, Follows Cardiology at [place]. Called [facility] pharmacy in [place] who reported that she didn't refill her Eliquis in March 2024. Patient noted to be irregular, irregular on exam. - Hold home Eliquis - Lopressor 50 mg BID Assessment & Plan (08/12/2024 7:50 PM EDT): Home med: Eliquis 2.5 mg BID, Amio 200 mg daily, Follows Cardiology at [place]. Called [facility] pharmacy in [place] who reported that she didn't refill her Eliquis in March 2024. Patient noted to be irregular, irregular on exam. - Hold home Eliquis - Lopressor 50 mg BID Assessment & Plan (08/11/2024 6:29 PM EDT): Home med: Eliquis 2.5 mg BID, Amio 200 mg daily, Follows Cardiology at [place]. Called [facility] pharmacy in [place] who reported that she didn't refill her Eliquis in March 2024. Patient noted to be irregular, irregular on exam. - Hold home Eliquis - Lopressor 50 mg BID Assessment & Plan (08/10/2024 6:12 PM EDT): Home med: Eliquis 2.5 mg BID, Amio 200 mg daily, Follows Cardiology at [place]. Called [facility] pharmacy in [place] who reported that she didn't refill her Eliquis in March 2024. Patient noted to be irregular, irregular on exam. - Hold home Eliquis - Lopressor 25 mg BID Assessment & Plan (08/09/2024 5:57 PM EDT): History of afib, reportedly on Eliquis. Follows Cardiology at [place]. Called [facility] pharmacy in [place] who reported that she didn't refill her [...] dribbles out. She follows with urology at [place]. She has required straight caths before, and [...] dribbles out. She follows with urology at [place]. She has required straight caths before, and [...] dribbles out. She follows with urology at [place]. She has required straight caths before, and [...] dribbles out. She follows with urology at [place]. 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 By report, Echocardiogram was [...] Furosemide 20 mg PO every day Follows beater operator at [place] (Dr. 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 By report, Echocardiogram was [...] Furosemide 20 mg PO every day Follows beater operator at [place] (Dr. 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 By report, Echocardiogram was [...] Furosemide 20 mg PO every day Follows beater operator at [place] (Dr. 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 By report, Echocardiogram was [...] Furosemide 20 mg PO every day Follows beater operator at [place] (Dr. 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 By report, Echocardiogram was [...] Furosemide 20 mg PO every day Follows beater operator at [place] (Dr. 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 By report, Echocardiogram was [...] Furosemide 20 mg PO every day Follows beater operator at [place] (Dr. 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 By report, Echocardiogram was [...] Furosemide 20 mg PO every day Follows beater operator at [place] (Dr. Tera Lizama) Patient with a history of HFrEF, unknown last EF, presenting for several days of worsening orthopnea. New oxygen requirement on 2L NC, CXR showed pulmonary edema but clinically doesn't appear volume overload. Pro-BNP 64,308. Unable to obtain prior TTE result from [place]. Trop elevated to 34, likely demand ischemia [...] 08/11/2024 progress note for cardiology notes from [place]. 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 Tera Lizama) Patient with a history of HFrEF, unknown last EF, presenting for several days of worsening orthopnea. New oxygen requirement on 2L NC, CXR showed pulmonary edema but clinically doesn't appear volume overload. Pro-BNP 64,308. Unable to obtain prior TTE result from [place]. Trop elevated to 34, likely demand ischemia in the setting of acute infection. Widened QRS on EKG resolve once K was corrected. No evidence of acute ischemia on EKG. TTE on 08/11 with LVEF 32%, with reduced RV systolic function, biatrial enlargement, severe mitral regurgitation. Consider possible cardiogenic shock component to presentation of SSUAN and shock liver, as patient has been noted to be in afib with RVR. See 08/11/2024 progress note for cardiology notes from [place]. 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 Tera Lizama) Patient with a history of HFrEF, unknown last EF, presenting for several days of worsening orthopnea. New oxygen requirement on 2L NC, CXR showed pulmonary edema but clinically doesn't appear volume overload. Pro-BNP 64,308. Unable to obtain prior TTE result from [place]. Trop elevated to 34, likely demand ischemia [...] 08/11/2024 progress note for cardiology notes from [place]. - Hold home lasix - Continue Lopressor [...] Furosemide 20 mg PO every day Follows beater operator at [place] (Dr. eTra Lizama) Patient with a history of HFrEF, unknown last EF, presenting for several days of worsening orthopnea. New oxygen requirement on 2L NC, CXR showed pulmonary edema but clinically doesn't appear volume overload. Pro-BNP 64,308. Unable to obtain prior TTE result from [place]. Trop elevated to 34, likely demand ischemia [...] for further details for cardiology notes from [place]. 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 Patient with a history of HFrEF, unknown last EF, presenting for several days of worsening orthopnea. New oxygen requirement on 2L NC, CXR showed pulmonary edema but clinically doesn't appear volume overload. Pro-BNP 64,308. Unable to obtain prior TTE result from [place]. Trop elevated to 34, likely demand ischemia [...] Unable to obtain prior TTE result from [place]. Trop elevated to 34, likely demand ischemia [...] on admission. Per request from lab at [place], patient's most recent creatinines are elevated to 2.54-2.96. Patient has a history of CKD and was previously following with Dr. Garber at [facility], however, [facility]. Renal following. Likely ATN [...] on admission. Per request from lab at [place], patient's most recent creatinines are elevated to 2.54-2.96. Patient has a history of CKD and was previously following with Dr. Garber at [facility], however, last appointment available [facility] is from 04/24/2023. Renal following. Likely ATN in setting of shock on presentation. Improving. Nephro consulted, appreciate recs: - Daily BMP - Ordered CPK to rule out rhabdo - 1.5L fluid restriction Assessment & Plan (08/18/2024 3:41 PM EDT): Cr elevated to 3.38 with an eGFR of 14 on admission. Per request from lab at [place], patient's most recent creatinines are elevated to 2.54-2.96. Patient has a history of CKD and was previously following with Dr. Garber at [facility], however, last appointment [facility] from 04/24/2023. Renal following. Likely ATN in setting of shock on presentation. Improving. Nephro consulted, appreciate recs: - Daily BMP - Ordered CPK to rule out rhabdo - 1.5L fluid restriction Assessment & Plan (08/17/2024 2:57 PM EDT): Cr elevated to 3.38 with an eGFR of 14 on admission. Per request from lab at [place], patient's most recent creatinines are elevated to 2.54-2.96. Patient has a history of CKD and was previously following with Dr. Garber at [facility], however, last appointment available in [facility] is from 04/24/2023. Renal following. Likely ATN in setting of shock on presentation. Improving. Nephro consulted, appreciate recs: - Daily BMP - Ordered CPK to rule out rhabdo - 1.5L fluid restriction Assessment & Plan (08/16/2024 1:31 PM EDT): Cr elevated to 3.38 with an eGFR of 14 on admission. Per request from lab at [place], patient's most recent creatinines are elevated to 2.54-2.96. Patient has a history of CKD and was previously following with Dr. Garber at [facility], however, last [facility] from 04[facility]24/2023. Renal following. Likely ATN in setting of shock on presentation. Improving. Nephro consulted, appreciate recs: - Daily BMP - Ordered CPK to rule out rhabdo - 1.5L fluid restriction Assessment & Plan (08/15/2024 2:33 PM EDT): Cr elevated to 3.38 with an eGFR of 14 on admission. Per request from lab at [place], patient's most recent creatinines are elevated to 2.54-2.96. Patient has a history of CKD and was previously following with Dr. Garber at [facility], however, last [facility] from 04[facility]24/2023. Renal following. Likely ATN in setting of shock on presentation. Improving. - Daily BMP Assessment & Plan (08/15/2024 12:34 PM EDT): Cr elevated to 3.38 with an eGFR of 14 on admission. Per request from lab at [place], patient's most recent creatinines are elevated to 2.54-2.96. Patient has a history of CKD and was previously following with Dr. Garber at [facility], however, last appointment available in [facility] is from 04/24/2023. Renal following. Likely ATN in setting of shock on presentation. Improving. - Daily BMP Assessment & Plan (08/14/2024 8:36 PM EDT): Cr elevated to 3.38 with an eGFR of 14 on admission. Per request from lab at [place], patient's most recent creatinines are elevated to 2.54-2.96. Patient has a history of CKD and was previously following with Dr. Garber at [facility], however, last appointment available in [facility] is from 04/24/2023. Renal following. Likely ATN in setting of shock on presentation Assessment & Plan (2024 2:30 PM EDT): Cr elevated to 3.38 with an eGFR of 14 on admission. Per request from lab at [place], patient's most recent creatinines are elevated to 2.54-2.96. Patient has a history of CKD and was previously following with Dr. Garber at [facility], however, [facility] 04[facility]23. Renal following. - Patient will require close monitoring as well especially in the setting of hypothermia and septic shock on admission causing ischemic liver injury and worsening SUSAN. - Evidence of secondary hyperparathyroidism, renal is following Assessment & Plan (08/12/2024 7:50 PM EDT): Cr elevated to 3.38 with an eGFR of 14 on admission. Per request from lab at [place], patient's most recent creatinines are elevated to 2.54-2.96. Patient has a history of CKD and was previously following with Dr. Garber at [facility], however, last [facility] from 04[facility]24/2023. Renal following. - Patient [...] on admission. Per request from lab at [place], patient's most recent creatinines are elevated to 2.54-2.96. Patient has a history of CKD and was previously following with Dr. Garber at [facility], however, last [facility] from 04/24/2023. Renal following. - Patient [...] on admission. Per request from lab at [place], patient's most recent creatinines are elevated to 2.54-2.96. Patient has a history of CKD and was previously following with Dr. Garber at [facility], however, last [facility] from 04/24/2023. Renal following. - Patient will require close monitoring as well especially in the setting of hypothermia and septic shock on admission causing ischemic liver injury and worsening SUSAN. - Strict I/O Assessment & Plan (08/09/2024 5:57 PM EDT): Cr elevated to 3.38 with an eGFR of 14 on admission. Per request from lab at [place], patient's most recent creatinines are elevated to 2.54-2.96. Patient has a history of CKD and was previously following with Dr. Garber at [facility], however, last [facility] 04/24/2023. - Nephro following: CK [...] Recorded In the past 12 months has [employer], oil, or water [employer] threatened to shut off services in your [...] Not on file Procedures * Due to [place] [facility] law, this organization might not be sharing [...] to Health Maintenance Results * Due to [place] [facility] law, this organization might not be sharing negative HIV tests. * (ABNORMAL) CBC Auto Differential (08/20/2024 6:44 AM EDT) WBC 6.2 3.8 - 10.8 10*3/uL 08/20/2024 7:40 AM EDT [facility] RBC 3.24(L) 3.80 - 5.10 10*6/uL 08/20/2024 7:40 AM EDT [facility] Hemoglobin 7.7(L) 11.7 - 15.5 g/dL 08/20/2024 7:40 AM EDT [facility] Hematocrit 26.1(L) 35.0 - 45.0 % 08/20/2024 7:40 AM EDT [facility] MCV 80.6 80.0 - 100.0 fL 08/20/2024 7:40 AM EDT [facility] MCH 23.8(L) 27.0 - 33.0 pg 08/20/2024 7:40 AM EDT [facility] MCHC 29.5(L) 32.0 - 36.0 g/dL 08/20/2024 7:40 AM EDT [facility] RDW 16.9(H) 11.0 - 15.0 % 08/20/2024 7:40 AM EDT [facility] Platelets 196 140 - 400 10*3/uL 08/20/2024 7:40 AM EDT [facility] MPV 10.9 7.5 - 12.5 fL 08/20/2024 7:40 AM EDT [facility] Neutrophil % 65.4 % 08/20/2024 7:40 AM EDT [facility] Immature Grans % 0.5 0.0 - 0.9 % 08/20/2024 7:40 AM EDT [facility] Lymphocyte % 20.8 % 08/20/2024 7:40 AM EDT [facility] Monocyte % 10.2 % 08/20/2024 7:40 AM EDT [facility] Eosinophil % 2.4 % 08/20/2024 7:40 AM EDT [facility] Basophil % 0.7 % 08/20/2024 7:40 AM EDT [facility] Neutrophil # 4.02 1.50 - 7.80 10*3/uL 08/20/2024 7:40 AM EDT [facility] Immature Grans # 0.03 <=0.03 10*3/uL 08/20/2024 7:40 AM EDT [facility] Lymphocyte # 1.30 0.85 - 3.90 10*3/uL 08/20/2024 7:40 AM EDT [facility] Monocyte # 0.60 0.20 - 0.95 10*3/uL 08/20/2024 7:40 AM EDT [facility] Eosinophil # 0.20 0.02 - 0.50 10*3/uL 08/20/2024 7:40 AM EDT [facility] Basophil # <0.03 0.00 - 0.20 10*3/uL 08/20/2024 7:40 AM EDT [facility] nRBC % 0.0 /100 WBCs 08/20/2024 7:40 AM EDT [facility] nRBC # <0.01 <0.01 10*3/uL 08/20/2024 7:40 AM EDT [facility] Blood Structure of peripheral vein / Unknown Venipuncture / Unknown 08/20/2024 6:44 AM EDT 08/20/2024 7:26 AM EDT us Jared Bell MD PhD LAB BLOOD ORDERABLES Final Resu lt [facility] [address] [place] [address], * (ABNORMAL) Basic Metabolic Panel (08/20/2024 6:44 AM EDT) NA 144 135 - 145 mmol/L 08/20/2024 8:21 AM EDT [facility] K 4.7 3.5 - 5.3 mmol/L 08/20/2024 8:21 AM EDT [facility] Cl 111(H) 98 - 107 mmol/L 08/20/2024 8:21 AM EDT [facility] CO2 23 22 - 32 mmol/L 08/20/2024 8:21 AM EDT [facility] BUN 42(H) 7 - 23 mg/dL 08/20/2024 8:21 AM EDT [facility] Creatinine 2.36(H) 0.50 - 1.20 mg/dL 08/20/2024 8:21 AM EDT [facility] Glucose 86 65 - 99 mg/dL 08/20/2024 8:21 AM EDT [facility] Calcium 9.1 8.6 - 10.5 mg/dL 08/20/2024 8:21 AM EDT [facility] Anion Gap 10 5 - 15 08/20/2024 8:21 AM EDT [facility] eGFR 22(L) >=60 mL/min/1 .73m2 08/20/2024 8:21 AM EDT [facility] Comment:The estimated glomer ular [...] PhD LAB BLOOD ORDERABLES Final Resu lt [facility] [address] [place] [address], [place] * (ABNORMAL) PTH, Intact and Calcium (08/12/2024 6:51 AM EDT) Parathyroid Hormone, Intact 203(H) 16 - 77 pg/mL 2024 4:01 AM EDT [employer] Comment: Interpretive Guide ?Intact PTH ? Calcium ? ------- Normal Parathyroid ?Normal ? Normal Hypoparathyroidism ?Low or Low Normal ?Low Hyperparathyroidism ?? Primary ?Normal or High ? High ?? Secondary ?High ? Normal or Low ?? Tertiary ? High ? High Non-Parathyroid ?? Hypercalcemia ?Low or Low Normal ?High Calcium 8.2(L) 8.6 - 10.4 mg/dL 2024 4:01 AM EDT [facility] Blood Structure of peripheral vein / Unknown Venipuncture / Unknown 08/12/2024 6:51 AM EDT 08/12/2024 7:38 AM EDT Narrative [employer] - 2024 4:01 AM EDT [employer] Received Date: us Brigitte Duke MD LAB BLOOD ORDERABLES Final Resul t [facility] [address], [place] [address], [place] [phone] [employer] [facility] [address], [place] [address], [place] [phone] * Phosphorus (08/12/2024 6:51 AM EDT) Phosphorus 3.7 2.5 - 4.5 mg/dL 08/12/2024 9:17 AM EDT [facility] Blood Structure of peripheral vein / Unknown Venipuncture / Unknown 08/12/2024 6:51 AM EDT 08/12/2024 7:38 AM EDT us Brigitte Duke MD LAB BLOOD ORDERABLES Final Resul t [facility] [address] [place] [address], * Hepatitis Panel, Acute (08/09/2024 10:04 AM EDT) Pathologist [facility] Hepatitis A IgM NON-REACT TRINH NON-REACT TRINH 08/09/2024 8:26 PM EDT [facility] Hepatitis B Surface Antigen NON-REACT TRINH NON-REACT TRINH 08/09/2024 8:26 PM EDT [facility] [employer] [facility] Hepatitis B Core Antibody NON-REACT TRINH NON-REACT TRINH 08/09/2024 8:26 PM EDT [facility] Hepatitis C Antibody NON-REACT TRINH NON-REACT TRINH 08/09/2024 8:26 PM EDT [facility] [employer] [facility] Comment: HCV antibody was non-reactive. There is no laboratory evidence of HCV infection. In most cases, no further action is required. However, if recent HCV exposure is suspected, a test for HCV RNA (test code 70591) is suggested. For additional information please refer to http://education.[employer]Mic.App[employer]ze/faq/WHB99c2 (This link is being provided for informational/ educational purposes only.) For additional information, please refer to http://[email or web address]ze/faq/FRK431 (This link is being provided for informational/ educational purposes only.) Blood Structure of peripheral vein / Unknown Venipuncture / Unknown 08/09/2024 10:04 AM EDT 08/09/2024 10:12 AM EDT Narrative [facility] - 08/09/2024 8:26 PM EDT [facility] Received Date: us April Ann MD LAB BLOOD ORDERABLES Final Resul t [facility] [address], [place] [address], [place] [phone] [facility] [address], [place] [address], [place] [phone] from Last 3 Months or Most Recently Relevant to Health Maintenance Insurance [facility] FEDERAL MEDICARE Advance Directives Documents on File Type Date Recorded 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
--- OUTSIDE RECORDS SUMMARY | 2025-01-29 09:38 | XMS_ITS | Clinical Summary ---
Author Organization [address] [facility] Address [address] [place] [address] Phone Care Team Providers Care Energy Conservation Representative Name Role Phone Unavailable Primary Care Provider [...] mmol/L LAB CHEMISTRY METHOD 09/04/2024 11:04 AM [facility] Potassium 4.1 3.5 - 5.5 mmol/L LAB CHEMISTRY METHOD 09/04/2024 11:04 AM [facility] Chloride 109 96 - 110 mmol/L LAB CHEMISTRY METHOD 09/04/2024 11:04 AM [facility] CO2 28 21 - 32 mmol/L LAB CHEMISTRY METHOD 09/04/2024 11:04 AM [facility] Anion Gap 7 3 - 11 LAB CHEMISTRY METHOD 09/04/2024 11:04 AM [facility] Glucose 76 70 - 100 mg/dL LAB CHEMISTRY METHOD 09/04/2024 11:04 AM [facility] BUN 34(H) 5 - 25 mg/dL LAB CHEMISTRY METHOD 09/04/2024 11:04 AM [facility] Creatinine 1.73(H) 0.50 - 1.10 mg/dL LAB CHEMISTRY METHOD 09/04/2024 11:04 AM EST [facility] eGFR 31(L) >=60 mL/min/1. 73m2 LAB CHEMISTRY METHOD 09/04/2024 11:04 AM EST [facility] Comment:Calculation based on the??Chronic Kidney Disease Epidemiology Collaboration (CKD-EPI) equation refit??without adjustment for race. BUN/Creatinine Ratio 19.7 LAB CHEMISTRY METHOD 09/04/2024 11:04 AM EST [facility] Calcium 8.9 8.5 - 10.5 mg/dL LAB CHEMISTRY METHOD 09/04/2024 11:04 AM [facility] Blood Venous blood specimen / Unknown Venipuncture / Unknown 09/04/2024 8:08 AM EST 09/04/2024 9:58 AM EST us Molly Servin MD LAB BLOOD ORDERABLES Final Resul t [facility] [address] [place] [address], from Last 3 Months or Most Recently Relevant to Health Maintenance Insurance MEDICARE
--- OUTSIDE RECORDS SUMMARY | 2025-01-29 09:38 | XMS_ITS | Encounter Summary ---
Author Organization [facility] Address [address] [facility] [address] [place] [address] Phone Care Team Providers Care Insert Cutter Name Role Phone Rod Wakefield MD Primary Care Provider + Reason for Visit * Reason Comments Med Refill Encounter Details Date Type Department Care Team (Late st Contact Info) Description 01/30/2022 Refill [facility] [address] [place] [address] [place] [address] Oneil Garber MD [address] [facility] [address] [place] [id number] Essential (primary) hypertension; Stage 3a chronic kidney [...] (HCC) documented in this encounter Care Teams Insert Cutter Relationship Specialty Start Date End Date Rod Wakefield MD [address] , [facility] [address] [place] [address] PCP - General Internal Medicine 05/28/21 documented as of this encounter
--- OUTSIDE RECORDS SUMMARY | 2025-01-29 09:38 | XMS_ITS | Clinical Summary ---
Author Organization [facility] Address [address] [place] [address] Care Team Providers Care Puller Out Name Role Phone No, Referring Primary Care [...] to 7.9/25.9 in the ED. Baseline per [place] lab Hgb ~8.5-10. No concern of GI [...] to 7.9/25.9 in the ED. Baseline per [place] lab Hgb ~8.5-10. No concern of GI bleed. - Eliquis per afib section - Start IV iron once stable from infection perspective Assessment & Plan (08/18/2024 3:41 PM EDT): Microcytic anemia. Home med: Iron sulfate 325 mg daily. Presented with H/H 9.3 and 32.5, down trending to 7.9/25.9 in the ED. Baseline per [place] lab Hgb ~8.5-10. No concern of GI bleed. - Eliquis per afib section - Start IV iron once stable from infection perspective Assessment & Plan (08/17/2024 2:57 PM EDT): Microcytic anemia. Home med: Iron sulfate 325 mg daily. Presented with H/H 9.3 and 32.5, down trending to 7.9/25.9 in the ED. Baseline per [place] lab Hgb ~8.5-10. No concern of GI bleed. - Eliquis per afib section - Start IV iron once stable from infection perspective Assessment & Plan (08/16/2024 1:21 PM EDT): Microcytic anemia. Home med: Iron sulfate 325 mg daily. Presented with H/H 9.3 and 32.5, down trending to 7.9/25.9 in the ED. Baseline per [place] lab Hgb ~8.5-10. No concern of GI bleed. - Restart home eliquis at lower dose - Start IV iron once stable from infection perspective Assessment & Plan (08/15/2024 2:33 PM EDT): Microcytic anemia. Home med: Iron sulfate 325 mg daily. Presented with H/H 9.3 and 32.5, down trending to 7.9/25.9 in the ED. Baseline per [place] lab Hgb ~8.5-10. No concern of GI bleed. - Holding home eliquis - Will begin IV iron once stable from infection perspective Assessment & Plan (08/15/2024 12:34 PM EDT): Microcytic anemia. Home med: Iron sulfate 325 mg daily. Presented with H/H 9.3 and 32.5, down trending to 7.9/25.9 in the ED. Baseline per [place] lab Hgb ~8.5-10. No concern of GI bleed. - Holding home eliquis - Will begin IV iron once stable from infection perspective Assessment & Plan (08/14/2024 8:36 PM EDT): Microcytic anemia. Home med: Iron sulfate 325 mg daily. Presented with H/H 9.3 and 32.5, down trending to 7.9/25.9 in the ED. Baseline per [place] lab Hgb ~8.5-10. No concern of GI [...] to 7.9/25.9 in the ED. Baseline per [place] lab Hgb ~8.5-10. No concern of GI [...] to 7.9/25.9 in the ED. Baseline per [place] lab Hgb ~8.5-10. No concern of GI [...] to 7.9/25.9 in the ED. Baseline per [place] lab Hgb ~8.5-10. No concern of GI bleed. - Holding home eliquis - IV iron started per HF section Assessment & Plan (08/10/2024 6:12 PM EDT): Microcytic anemia. Home med: Iron sulfate 325 mg daily. Presented with H/H 9.3 and 32.5, down trending to 7.9/25.9 in the ED. Baseline per [place] lab Hgb ~8.5-10. No concern of GI bleed. - Holding home anticoagulation Assessment & Plan (08/09/2024 5:57 PM EDT): Patient presented with nose bleeds. Found to be anemic with an H/H 9.3 and 32.5, down trending to 7.9/25.9 in the ED. Baseline per [place] lab hgb ~8.5-10. No concern of GI [...] Lopressor 50 mg BID, Follows Cardiology at [place]. Called [facility] pharmacy in [place] who reported that she didn't refill her [...] Lopressor 50 mg BID, Follows Cardiology at [place]. Called [facility] pharmacy in [place] who reported that she didn't refill her [...] Lopressor 50 mg BID, Follows Cardiology at [place]. Called [facility] pharmacy in [place] who reported that she didn't refill her [...] Lopressor 50 mg BID, Follows Cardiology at [place]. Called [facility] pharmacy in [place] who reported that she didn't refill her [...] Lopressor 50 mg BID, Follows Cardiology at [place]. Called [facility] pharmacy in [place] who reported that she didn't refill her [...] Lopressor 50 mg BID, Follows Cardiology at [place]. Called [facility] pharmacy in [place] who reported that she didn't refill her [...] Lopressor 50 mg BID, Follows Cardiology at [place]. Called [facility] pharmacy in [place] who reported that she didn't refill her [...] Lopressor 50 mg BID, Follows Cardiology at [place]. Called [facility] pharmacy in [place] who reported that she didn't refill her Eliquis in March 2024. Patient noted to be irregular, irregular on exam. - Hold home Eliquis and Amio due to acute liver failure. - Lopressor 50 mg BID Assessment & Plan (2024 2:30 PM EDT): Home med: Eliquis 2.5 mg BID, Amio 200 mg daily, Follows Cardiology at [place]. Called [facility] pharmacy in [place] who reported that she didn't refill her Eliquis in March 2024. Patient noted to be irregular, irregular on exam. - Hold home Eliquis - Lopressor 50 mg BID Assessment & Plan (08/12/2024 7:50 PM EDT): Home med: Eliquis 2.5 mg BID, Amio 200 mg daily, Follows Cardiology at [place]. Called [facility] pharmacy in [place] who reported that she didn't refill her Eliquis in March 2024. Patient noted to be irregular, irregular on exam. - Hold home Eliquis - Lopressor 50 mg BID Assessment & Plan (08/11/2024 6:29 PM EDT): Home med: Eliquis 2.5 mg BID, Amio 200 mg daily, Follows Cardiology at [place]. Called [facility] pharmacy in [place] who reported that she didn't refill her Eliquis in March 2024. Patient noted to be irregular, irregular on exam. - Hold home Eliquis - Lopressor 50 mg BID Assessment & Plan (08/10/2024 6:12 PM EDT): Home med: Eliquis 2.5 mg BID, Amio 200 mg daily, Follows Cardiology at [place]. Called [facility] pharmacy in [place] who reported that she didn't refill her Eliquis in March 2024. Patient noted to be irregular, irregular on exam. - Hold home Eliquis - Lopressor 25 mg BID Assessment & Plan (08/09/2024 5:57 PM EDT): History of afib, reportedly on Eliquis. Follows Cardiology at [place]. Called [facility] pharmacy in [place] who reported that she didn't refill her [...] dribbles out. She follows with urology at [place]. She has required straight caths before, and [...] dribbles out. She follows with urology at [place]. She has required straight caths before, and [...] dribbles out. She follows with urology at [place]. She has required straight caths before, and [...] dribbles out. She follows with urology at [place]. 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 New oxygen requirement on 2L NC, CXR showed pulmonary edema but clinically doesn't appear volume overload. Pro-BNP 64,308. Unable to obtain prior TTE result from [place]. Trop elevated to 34, likely demand ischemia [...] 08/11/2024 progress note for cardiology notes from [place]. 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 New oxygen requirement on 2L NC, CXR showed pulmonary edema but clinically doesn't appear volume overload. Pro-BNP 64,308. Unable to obtain prior TTE result from [place]. Trop elevated to 34, likely demand ischemia [...] 08/11/2024 progress note for cardiology notes from [place]. 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 New oxygen requirement on 2L NC, CXR showed pulmonary edema but clinically doesn't appear volume overload. Pro-BNP 64,308. Unable to obtain prior TTE result from [place]. Trop elevated to 34, likely demand ischemia in the setting of acute infection. Widened QRS on EKG resolve once K was corrected. No evidence of acute ischemia on EKG. TTE on 08/11 with LVEF 32%, with reduced RV systolic function, biatrial enlargement, severe mitral regurgitation. Consider possible cardiogenic shock component to presentation of USSAN and shock liver, as patient has been noted to be in afib with RVR. See 08/11/2024 progress note for cardiology notes from [place]. 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 New oxygen requirement on 2L NC, CXR showed pulmonary edema but clinically doesn't appear volume overload. Pro-BNP 64,308. Unable to obtain prior TTE result from [place]. Trop elevated to 34, likely demand ischemia [...] for further details for cardiology notes from [place]. 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 Patient with a history of HFrEF, unknown last EF, presenting for several days of worsening orthopnea. New oxygen requirement on 2L NC, CXR showed pulmonary edema but clinically doesn't appear volume overload. Pro-BNP 64,308. Unable to obtain prior TTE result from [place]. Trop elevated to 34, likely demand ischemia [...] Unable to obtain prior TTE result from [place]. Trop elevated to 34, likely demand ischemia [...] on admission. Per request from lab at [place], patient's most recent creatinines are elevated to 2.54-2.96. Patient has a history of CKD and was previously following with Dr. Garber at [facility], however, last appointment available in [facility] is from 04/24/2023. Renal following. Likely [...] on admission. Per request from lab at [place], patient's most recent creatinines are elevated to 2.54-2.96. Patient has a history of CKD and was previously following with Dr. Garber at [facility], however, last appointment available in [facility] is from 04/24/2023. Renal following. Likely ATN in setting of shock on presentation. Improving. Nephro consulted, appreciate recs: - Daily BMP - Ordered CPK to rule out rhabdo - 1.5L fluid restriction Assessment & Plan (08/18/2024 3:41 PM EDT): Cr elevated to 3.38 with an eGFR of 14 on admission. Per request from lab at [place], patient's most recent creatinines are elevated to 2.54-2.96. Patient has a history of CKD and was previously following with Dr. Garber at [facility], however, last appointment available in [facility] is from 04/24/2023. Renal following. Likely ATN in setting of shock on presentation. Improving. Nephro consulted, appreciate recs: - Daily BMP - Ordered CPK to rule out rhabdo - 1.5L fluid restriction Assessment & Plan (08/17/2024 2:57 PM EDT): Cr elevated to 3.38 with an eGFR of 14 on admission. Per request from lab at [place], patient's most recent creatinines are elevated to 2.54-2.96. Patient has a history of CKD and was previously following with Dr. Garber at [facility], however, last appointment available in [facility] is from 04/24/2023. Renal following. Likely ATN in setting of shock on presentation. Improving. Nephro consulted, appreciate recs: - Daily BMP - Ordered CPK to rule out rhabdo - 1.5L fluid restriction Assessment & Plan (08/16/2024 1:31 PM EDT): Cr elevated to 3.38 with an eGFR of 14 on admission. Per request from lab at [place], patient's most recent creatinines are elevated to 2.54-2.96. Patient has a history of CKD and was previously following with Dr. Garber at [facility], however, last appointment available in [facility] is from 04/24/2023. Renal following. Likely ATN in setting of shock on presentation. Improving. Nephro consulted, appreciate recs: - Daily BMP - Ordered CPK to rule out rhabdo - 1.5L fluid restriction Assessment & Plan (08/15/2024 2:33 PM EDT): Cr elevated to 3.38 with an eGFR of 14 on admission. Per request from lab at [place], patient's most recent creatinines are elevated to 2.54-2.96. Patient has a history of CKD and was previously following with Dr. Garber at [facility], however, last appointment available in [facility] is from 04/24/2023. Renal following. Likely ATN in setting of shock on presentation. Improving. - Daily BMP Assessment & Plan (08/15/2024 12:34 PM EDT): Cr elevated to 3.38 with an eGFR of 14 on admission. Per request from lab at [place], patient's most recent creatinines are elevated to 2.54-2.96. Patient has a history of CKD and was previously following with Dr. Garber at [facility], however, last appointment available in [facility] is from 04/24/2023. Renal following. Likely ATN in setting of shock on presentation. Improving. - Daily BMP Assessment & Plan (08/14/2024 8:36 PM EDT): Cr elevated to 3.38 with an eGFR of 14 on admission. Per request from lab at [place], patient's most recent creatinines are elevated to 2.54-2.96. Patient has a history of CKD and was previously following with Dr. Garber at [facility], however, last appointment available in [facility] is from 04/24/2023. Renal following. Likely ATN in setting of shock on presentation Assessment & Plan (2024 2:30 PM EDT): Cr elevated to 3.38 with an eGFR of 14 on admission. Per request from lab at [place], patient's most recent creatinines are elevated to 2.54-2.96. Patient has a history of CKD and was previously following with Dr. Garber at [facility], however, last appointment available in [facility] is from 04/24/2023. Renal following. - Patient will require close monitoring as well especially in the setting of hypothermia and septic shock on admission causing ischemic liver injury and worsening SUSAN. - Evidence of secondary hyperparathyroidism, renal is following Assessment & Plan (08/12/2024 7:50 PM EDT): Cr elevated to 3.38 with an eGFR of 14 on admission. Per request from lab at [place], patient's most recent creatinines are elevated to 2.54-2.96. Patient has a history of CKD and was previously following with Dr. Garber at [facility], however, last appointment available in [facility] is from 04/24/2023. Renal following. - [...] on admission. Per request from lab at [place], patient's most recent creatinines are elevated to 2.54-2.96. Patient has a history of CKD and was previously following with Dr. Garber at [facility], however, last appointment available in [facility] is from 04/24/2023. Renal following. - [...] on admission. Per request from lab at [place], patient's most recent creatinines are elevated to 2.54-2.96. Patient has a history of CKD and was previously following with Dr. Garber at [facility], however, last appointment available in [facility] is from 04/24/2023. Renal following. - Patient will require close monitoring as well especially in the setting of hypothermia and septic shock on admission causing ischemic liver injury and worsening SUSAN. - Strict I/O Assessment & Plan (08/09/2024 5:57 PM EDT): Cr elevated to 3.38 with an eGFR of 14 on admission. Per request from lab at [place], patient's most recent creatinines are elevated to 2.54-2.96. Patient has a history of CKD and was previously following with Dr. Garber at [facility], however, last appointment available in [facility] is from 04/24/2023. - Nephro following: [...] Years Used Date Smoking Tobacco: Never Assessed [facility] Utilities Answer Date Recorded In the past 12 months has [employer], [employer], oil, or water [employer] threatened to shut off services in your [...] complete this topic Procedures * Due to [facility] law, this organization might not be [...] to Health Maintenance Results * Due to [place] [employer] law, this organization might not be sharing negative HIV tests. * (ABNORMAL) CBC Auto Differential (08/20/2024 6:44 AM EDT) WBC 6.2 3.8 - 10.8 10*3/uL 08/20/2024 7:40 AM EDT [facility] RBC 3.24(L) 3.80 - 5.10 10*6/uL 08/20/2024 7:40 AM EDT [email or web address] Hemoglobin 7.7(L) 11.7 - 15.5 g/dL 08/20/2024 7:40 AM EDT [email or web address] Hematocrit 26.1(L) 35.0 - 45.0 % 08/20/2024 7:40 AM EDT [email or web address] MCV 80.6 80.0 - 100.0 fL 08/20/2024 7:40 AM EDT [email or web address] MCH 23.8(L) 27.0 - 33.0 pg 08/20/2024 7:40 AM EDT [email or web address] MCHC 29.5(L) 32.0 - 36.0 g/dL 08/20/2024 7:40 AM EDT [email or web address] RDW 16.9(H) 11.0 - 15.0 % 08/20/2024 7:40 AM EDT [email or web address] Platelets 196 140 - 400 10*3/uL 08/20/2024 7:40 AM EDT [email or web address] MPV 10.9 7.5 - 12.5 fL 08/20/2024 7:40 AM EDT [email or web address] Neutrophil % 65.4 % 08/20/2024 7:40 AM EDT [facility] Immature Grans % 0.5 0.0 - 0.9 % 08/20/2024 7:40 AM EDT [facility] Lymphocyte % 20.8 % 08/20/2024 7:40 AM EDT [email or web address] Monocyte % 10.2 % 08/20/2024 7:40 AM EDT [email or web address] Eosinophil % 2.4 % 08/20/2024 7:40 AM EDT [email or web address] Basophil % 0.7 % 08/20/2024 7:40 AM EDT [facility] Neutrophil # 4.02 1.50 - 7.80 10*3/uL 08/20/2024 7:40 AM EDT [email or web address] Immature Grans # 0.03 <=0.03 10*3/uL 08/20/2024 7:40 AM EDT [facility] Lymphocyte # 1.30 0.85 - 3.90 10*3/uL 08/20/2024 7:40 AM EDT [email or web address] Monocyte # 0.60 0.20 - 0.95 10*3/uL 08/20/2024 7:40 AM EDT [email or web address] Eosinophil # 0.20 0.02 - 0.50 10*3/uL 08/20/2024 7:40 AM EDT [facility] Basophil # <0.03 0.00 - 0.20 10*3/uL 08/20/2024 7:40 AM EDT [facility] nRBC % 0.0 /100 WBCs 08/20/2024 7:40 AM EDT [facility] nRBC # <0.01 <0.01 10*3/uL 08/20/2024 7:40 AM EDT [facility] Blood Structure of peripheral vein / Unknown Venipuncture / Unknown 08/20/2024 6:44 AM EDT 08/20/2024 7:26 AM EDT us Jared Bell MD PhD LAB BLOOD ORDERABLES Final Resu lt [facility] [address] [place] [address], [place] * (ABNORMAL) Basic Metabolic Panel (08/20/2024 6:44 AM EDT) NA 144 135 - 145 mmol/L 08/20/2024 8:21 AM EDT [facility] K 4.7 3.5 - 5.3 mmol/L 08/20/2024 8:21 AM EDT [facility] Cl 111(H) 98 - 107 mmol/L 08/20/2024 8:21 AM EDT [facility] CO2 23 22 - 32 mmol/L 08/20/2024 8:21 AM EDT [facility] BUN 42(H) 7 - 23 mg/dL 08/20/2024 8:21 AM EDT [facility] Creatinine 2.36(H) 0.50 - 1.20 mg/dL 08/20/2024 8:21 AM EDT [facility] Glucose 86 65 - 99 mg/dL 08/20/2024 8:21 AM EDT [facility] Calcium 9.1 8.6 - 10.5 mg/dL 08/20/2024 8:21 AM EDT [facility] Anion Gap 10 5 - 15 08/20/2024 8:21 AM EDT [facility] eGFR 22(L) >=60 mL/min/1 .73m2 08/20/2024 8:21 AM EDT [facility] Comment:The estimated glomer ular [...] PhD LAB BLOOD ORDERABLES Final Resu lt [facility] [address] [place] [address], * (ABNORMAL) PTH, Intact and Calcium (08/12/2024 6:51 AM EDT) Parathyroid Hormone, Intact 203(H) 16 - 77 pg/mL 2024 4:01 AM EDT [facility] Comment: Interpretive Guide ?Intact PTH ? Calcium ? ------- Normal Parathyroid ?Normal ? Normal Hypoparathyroidism ?Low or Low Normal ?Low Hyperparathyroidism ?? Primary ?Normal or High ? High ?? Secondary ?High ? Normal or Low ?? Tertiary ? High ? High Non-Parathyroid ?? Hypercalcemia ?Low or Low Normal ?High Calcium 8.2(L) 8.6 - 10.4 mg/dL 2024 4:01 AM EDT [facility] Blood Structure of peripheral vein / Unknown Venipuncture / Unknown 08/12/2024 6:51 AM EDT 08/12/2024 7:38 AM EDT Narrative [facility] - 2024 4:01 AM EDT [employer] Received Date: Brigitte Duke MD LAB BLOOD ORDERABLES Final Resul t [facility] [address], [place] [address], [facility] [address] [facility] [address], [place] [address], [place] [phone] * Phosphorus (08/12/2024 6:51 AM EDT) Phosphorus 3.7 2.5 - 4.5 mg/dL 08/12/2024 9:17 AM EDT [facility] Blood Structure of peripheral vein / Unknown Venipuncture / Unknown 08/12/2024 6:51 AM EDT 08/12/2024 7:38 AM EDT us Brigitte Duke MD LAB BLOOD ORDERABLES Final Resul t [facility] [address] [place] [address], [place] * Hepatitis Panel, Acute (08/09/2024 10:04 AM EDT) Hepatitis A IgM NON-REACT TRINH NON-REACT TRINH 08/09/2024 8:26 PM EDT [facility] Hepatitis B Surface Antigen NON-REACT TRINH NON-REACT TRINH 08/09/2024 8:26 PM EDT [facility] Hepatitis B Core Antibody NON-REACT TRINH NON-REACT TRINH 08/09/2024 8:26 PM EDT [facility] Hepatitis C Antibody NON-REACT TRINH NON-REACT TRINH 08/09/2024 8:26 PM EDT [facility] Comment: HCV antibody was non-reactive. There is no laboratory evidence of HCV infection. In most cases, no further action is required. However, if recent HCV exposure is suspected, a test for HCV RNA (test code 87171) is suggested. For additional information please refer to http://[employer]/faq/TWV29r1 (This link is being provided for informational/ educational purposes only.) For additional information, please refer to http://[employer]/faq/BWA425 (This link is being provided for informational/ educational purposes only.) Blood Structure of peripheral vein / Unknown Venipuncture / Unknown 08/09/2024 10:04 AM EDT 08/09/2024 10:12 AM EDT Narrative [facility] - 08/09/2024 8:26 PM EDT [facility] Received Date: April Ann MD LAB BLOOD ORDERABLES Final Resul t [address] Floor, [place] [address], [place] [phone], [place] [address], [place] [phone] from Last 3 Months or Most Recently Relevant to Health Maintenance Insurance [facility] FEDERAL MEDICARE Advance Directives Documents on File Type Date Recorded 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
[2025-01-29 11:50] LABS: CDiff Gene PCR NEGATIVE (Negative)
[2025-01-29] MEDS: Levothyroxine Sodium 50 MCG TABLET PO (12:12)
[2025-01-29] MEDS: Metoprolol Succinate ER 25 MG TAB.ER.24H PO (12:12)
[2025-01-29] MEDS: PARoxetine HCL 40 MG TABLET PO ×2 (12:12→20:05)
[2025-01-29] MEDS: Clopidogrel Bisulfate 75 MG TABLET PO (12:12)
[2025-01-29] MEDS: ondansetron HCL 4 MG/2 ML VIAL IVPUSH ×2 (12:13→23:52)
[2025-01-29 12:32] LABS: Adenovirus F 40/41 Not Detected (Not Detect.); Astrovirus Not Detected (Not Detect.); Campylobacter Not Detected (Not Detect.); Cryptosporidium Not Detected (Not Detect.); Cyclospora cayetanensis Not Detected (Not Detect.); E. coli EAEC Not Detected (Not Detect.); E. coli EPEC Not Detected (Not Detect.); E. coli ETEC Not Detected (Not Detect.); E. coli STEC Not Detected (Not Detect.); Entamoeba histolytica Not Detected (Not Detect.); Giardia lamblia Not Detected (Not Detect.); Norovirus GI/GII Not Detected (Not Detect.); Plesiomonas shigelloides Not Detected (Not Detect.); Rotavirus A Not Detected (Not Detect.); Salmonella Not Detected (Not Detect.); Sapovirus Not Detected (Not Detect.); Shigella sp./EIEC Not Detected (Not Detect.); Vibrio Not Detected (Not Detect.); Vibrio Cholerae Not Detected (Not Detect.)
[2025-01-29 13:48] LABS: Yersinia enterocolitica Detected (Not Detect.)
--- NOTE | 2025-01-29 13:48 | PC.NURSE ---
Patient's stool sample came back positive for Yersinia & Enterocoliticia, inpatient provider Dr. Vargas made aware.
--- NOTE | 2025-01-29 14:56 | MHC.CM.PN ---
IMM 4/5. Pt self-care, lives alone at home, uses a cane and a walker. Pt will arrange her own transport home at discharge. HCP on file and verified. PCP: Dr. Amina Whitfield
[2025-01-29 15:01] LABS: Potassium, Serum 4.1 mmol/L (3.3-5.1)
[2025-01-29] MEDS: Doxazosin Mesylate 1 MG TABLET PO (20:05)
[2025-01-29] MEDS: Atorvastatin Calcium 80 MG TABLET PO (20:05)
[2025-01-29] MEDS: 0.9 % Sodium Chloride Flush 3 ML SYRINGE IVFLUSH (20:06)
[2025-01-29] MEDS: Melatonin 3 MG TABLET 6 MG PO (20:09)
[2025-01-30] VITALS (7 sets, daily range): BP systolic 103–132; BP diastolic 53–74; PULSE 86–102; RESP 16–18; TEMP 36.1–37.1; O2SAT 95–99; BMI 23.6
[2025-01-30] MEDS: cefTRIAXone sodium 1 GM VIAL IVPUSH ×2 (02:20→12:42)
[2025-01-30] MEDS: Levothyroxine Sodium 50 MCG TABLET PO (05:25)
[2025-01-30 07:42] LABS: Anion Gap 10 (12-20); Blood Urea Nitrogen 21 mg/dL (9-16); Calcium 8.8 mg/dL (8.4-10.2); Carbon Dioxide 25 mmol/L (22-29); Chloride 110 mmol/L (96-108); Creatinine Clr Calc Pharmacy 28.4; Estimated Glomerular Filt Rate 30; Glucose Random 95 mg/dL (60-115); Potassium 3.7 mmol/L (3.3-5.1); Sodium 141 mmol/L (135-145)
[2025-01-30] MEDS: 0.9 % Sodium Chloride Flush 3 ML SYRINGE IVFLUSH ×3 (08:08→20:28)
[2025-01-30] MEDS: Omeprazole 20 MG CAPSULE.DR PO (08:08)
[2025-01-30] MEDS: Cyanocobalamin (Vitamin B-12) 1,000 MCG TABLET 1000 MCG PO (09:27)
[2025-01-30] MEDS: Clopidogrel Bisulfate 75 MG TABLET PO (09:27)
[2025-01-30] MEDS: Cholecalciferol (Vitamin D3) 25 MCG TABLET PO (09:28)
[2025-01-30] MEDS: Furosemide 40 MG TABLET PO (09:28)
[2025-01-30] MEDS: Amiodarone HCL 200 MG TABLET PO (09:29)
[2025-01-30] MEDS: Metoprolol Succinate ER 25 MG TAB.ER.24H PO (09:29)
[2025-01-30] MEDS: Apixaban 5 MG TABLET PO ×2 (09:29→20:28)
--- NOTE | 2025-01-30 09:30 | P.PNIM_ITS ---
Subjective Subjective Date of Service: 01/30/25 Interval History: f/u on afib with rve, uti, weakness, hypokalemia and 1/2 gram positive cocci in chains HR is better, no fever or chills, stool was positive for Yersenia enterocolotica No diarrhea at this time Physical Exam 2 Vital Signs: Vital Signs: Last Vital Signs Temp 98.4 F 01/30/25 07:58 Pulse 86 01/30/25 07:58 Resp 16 01/30/25 07:58 BP 114/58 L 01/30/25 07:58 Pulse Ox 95 01/30/25 07:58 O2 Del Method Room Air 01/30/25 07:58 BMI result Body Mass Index 23.6 Objective Data Active Medications Acetaminophen (Acetaminophen 325 Mg Tablet) 650 mg PO Q6H PRN PRN Reason: Pain, Mild 1-3,fever,headache Albuterol/Ipratropium (Albuterol/Iprat 2.5/0.5mg 3 Ml Ampul.Neb) 3 ml INHALE Q4H PRN PRN Reason: Shortness of Breath/Wheezing Amiodarone HCl (Amiodarone Hcl 200 Mg Tablet) 200 mg PO DAILY [facility] Last Admin: 01/30/25 09:29 Dose: 200 mg Documented By: DRU Apixaban (Apixaban 5 Mg Tablet) 5 mg PO BID [facility] Last Admin: 01/30/25 09:29 Dose: 5 mg Documented By: DRU Atorvastatin Calcium (Atorvastatin Calcium 80 Mg Tablet) 80 mg PO BEDTIME [facility] Last Admin: 01/29/25 20:05 Dose: 80 mg Documented By: KARL Calcium Carbonate (Calcium Carbonate 750 Mg Tab.Chew) 750 mg PO Q4H PRN PRN Reason: Heartburn Ceftriaxone Sodium (Ceftriaxone Sodium 1 Gm Vial) 1 gm IVPUSH Q24H [facility] Last Admin: 01/30/25 02:20 Dose: 1 gm Documented By: KARL Ceftriaxone Sodium (Ceftriaxone Sodium 1 Gm Vial) 1 gm IVPUSH ONCE ONE Stop: 01/30/25 09:30 Clopidogrel Bisulfate (Clopidogrel Bisulfate 75 Mg Tablet) 75 mg PO DAILY [facility] Last Admin: 01/30/25 09:27 Dose: 75 mg Documented By: DRU Cyanocobalamin (Cyanocobalamin (Vitamin B-12) 1,000 Mcg Tablet) 1,000 mcg PO DAILY [facility] Last Admin: 01/30/25 09:27 Dose: 1,000 mcg Documented By: DRU Doxazosin Mesylate (Doxazosin Mesylate 1 Mg Tablet) 1 mg PO BEDTIME [facility] Last Admin: 01/29/25 20:05 Dose: 1 mg Documented By: KARL Fluticasone/Vilanterol (Fluticasone/Vilanterol 100/25 Blst.W.Dev) 1 puff INHALE RDAILY [facility] Last Admin: 01/30/25 08:42 Dose: Not Given Documented By: ABEL Non-Admin Reason: Patient Asleep Furosemide (Furosemide 40 Mg Tablet) 40 mg PO DAILY [facility]; Protocol Last Admin: 01/30/25 09:28 Dose: 40 mg Documented By: DRU Levothyroxine Sodium (Levothyroxine Sodium 50 Mcg Tablet) 50 mcg PO DAILY@0600 [facility] Last Admin: 01/30/25 05:25 Dose: 50 mcg Documented By: KARL Magnesium Hydroxide (Milk Of Magnesia 30 Ml Oral.Susp) 30 ml PO DAILY PRN PRN Reason: Constipation Melatonin (Melatonin 3 Mg Tablet) 6 mg PO BEDTIME PRN PRN Reason: Insomnia Last Admin: 01/29/25 20:09 Dose: 6 mg Documented By: KARL Metoprolol Succinate (Metoprolol Succinate Er 25 Mg Tab.Er.24h) 25 mg PO DAILY [facility]; Protocol Last Admin: 01/30/25 09:29 Dose: 25 mg Documented By: DRU Omeprazole (Omeprazole 20 Mg Capsule.Dr) 20 mg PO DAILY@0630 [facility] Last Admin: 01/30/25 08:08 Dose: 20 mg Documented By: DRU Ondansetron HCl (Ondansetron Hcl 4 Mg/2 Ml Vial) 4 mg IVPUSH Q8H PRN PRN Reason: Nausea and Vomiting Last Admin: 01/29/25 23:52 Dose: 4 mg Documented By: KARL Paroxetine HCl (Paroxetine Hcl 40 Mg Tablet) 40 mg PO BEDTIME [facility] Last Admin: 01/29/25 20:05 Dose: 40 mg Documented By: HO.[email or web address] Potassium Chloride (Potassium Chloride Er 20 Meq Tab.Er.Prt) 20 meq PO DAILY [facility] Last Admin: 01/30/25 09:27 Dose: Not Given Documented By: DRU Non-Admin Reason: Patient Refused Sodium Chloride (0.9 % Sodium Chloride Flush 3 Ml Syringe) 3 ml IVFLUSH QSHIFT [facility] Last Admin: 01/30/25 08:08 Dose: 3 ml Documented By: DRU Vitamin D (Cholecalciferol (Vitamin D3) 25 Mcg Tablet) 25 mcg PO DAILY [facility] Last Admin: 01/30/25 09:28 Dose: 25 mcg Documented By: DRU Labs 01/29/25 05:13 01/30/25 07:17 Labs: Laboratory Results - last 24 hr 01/29/25 01/29/25 01/30/25 10:48 14:30 07:17 Hold Purple Top SEE NOTE Serum Potassium 4.1 Anion Gap 10 L Estim Creat Clear Calc 28.4 Estimated GFR 30 Random Glucose 95 Calcium 8.8 Stl C. cayetanensis PCR Not Detected Stool Rotavirus A PCR Not Detected Stl Adenov F 40/41 PCR Not Detected Stool Astrovirus (PCR) Not Detected Stool Campylobacter PCR Not Detected Stool Cryptosporidium PCR Not Detected Stl Sh Tox Pr E STEC PCR Not Detected Stool E coli O157 PCR Not applicable Stl Enterotoxigenic E PCR Not Detected Stool EPEC (PCR) Not Detected Stool EAEC (PCR) Not Detected Stl E. histolytica PCR Not Detected Stool Giardia Lamblia PCR Not Detected Stl P. shigelloides PCR Not Detected Stool Salmonella PCR Not Detected Stool Sapovirus (PCR) Not Detected Stl Shigella/EIEC PCR Not Detected St Y.enterocolitica PCR Detected A Stool Vibrio (PCR) Not Detected Stl Vibrio cholerae PCR Not Detected Stl Norovirus GI/GII PCR Not Detected C. difficile Tox B Gene NEGATIVE Microbiology Microbiology Results: Microbiology 01/29/25 02:19 Blood Culture - Preliminary Blood - Venous Prelim: GPC Gram Stain only 01/29/25 02:19 Blood Culture - Preliminary Blood - Venous No growth after 24 hours. Assessment and Plan (1) Atrial fibrillation with rapid ventricular response: Status: Acute (2) Gram-positive bacteremia: Status: Acute Plan Patient is a 69-year-old female with past medical history multiple sclerosis remitting relapsing not currently on injectables, COPD not currently on home O2, chronic kidney disease stage 4, hypothyroidism, urinary tract infection, urinary retention, atrial fibrillation on anticoagulation, heart failure with reduced ejection fracture, COVID, cataract repair, peripheral arterial disease, non STEMI, left hip replacement. Admitted for UTI, AFIB with RVR and weakness AFIB w/ RVR, up to 150s, now rate controlled, following IV diltiazem continue home meds with amio and metoprolol continue eliquis cardiology eval if persists Orthostatic hypotension/ no syncope, related to dehydation, diarrhea iv cardizem resolved. Urinary tract infection/ hx of urinary retention/neurogenic bladdder continue ceftriaxoe, follow cultures 1/2 Gram positive cocci in chains? step continue Ceftriaxone, increase to 2 gm/daily, follow final sensitivity, echo to rule vegetations Diarrhea and associated dehydration, neg cdif, +PCR for Yesernia Enterocolitic, should be sensitive to CEftriaxone, Hypokalemia d/t diarrhea, replaced and resolved Generalized weakness d/t uti Physical therapy consulted Multiple sclerosis relapsing remitting Chronic with no recent flares. outpatient follow up Chronic kidney disease stage IV, Cr stable within baseline Hypothyroidism, TSH 5.43, FT4 pending Continue levothyroxine and adjust as needed COPD patient is not on home O2, no exacerbation, inhalers prn . HFrEF BNP is 313, no exacerbation resume home meds as needed DVT prophylaxis: Apixaban PPI prophylaxis: Omeprazole admission for at least 2 midnights for management with afib with rvr needing iv meds, and close monitoring, bacteremia needing IV Quality Stroke Does the patient have a stroke diagnosis?: No Reason for No Anti-thrombotic by Day Two: N/A - Med Ordered VTE Prior VTE?: No VTE Risk Level:: Medical - moderate - high VTE Device Contraindication: N/A - Device Ordered VTE Drug Contraindication: N/A - Med Ordered
[2025-01-30] MEDS: Doxazosin Mesylate 1 MG TABLET PO (20:27)
[2025-01-30] MEDS: PARoxetine HCL 40 MG TABLET PO (20:27)
[2025-01-30] MEDS: Atorvastatin Calcium 80 MG TABLET PO (20:27)
[2025-01-30] MEDS: Melatonin 3 MG TABLET 6 MG PO (20:28)
[2025-01-31] VITALS (7 sets, daily range): BP systolic 94–128; BP diastolic 60–67; PULSE 76–93; RESP 18; TEMP 36–36.6; O2SAT 96–99; BMI 23.6
[2025-01-31] MEDS: Levothyroxine Sodium 50 MCG TABLET PO (05:06)
[2025-01-31] MEDS: cefTRIAXone sodium 2 GM VIAL IVPUSH (05:06)
--- NOTE | 2025-01-31 07:00 | CA_ITS ---
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 There is mildly increased left ventricular wall thickness. The left ventricular systolic function is mildly decreased. The visually estimated ejection fraction is between 40-45%. - The basal inferior and mid inferior segments are akinetic. - The left atrium is severely dilated. - There is mild to moderate mitral valve regurgitation. - Elevated filling pressures. Findings Left Ventricle Normal left ventricular cavity size. There is mildly increased left ventricular wall thickness. The left ventricular systolic function is mildly decreased. The visually estimated ejection fraction is between 40-45%. There is evidence of regional wall motion abnormalities. Abnormal diastolic function is noted. Spectral Doppler is indicative of a pseudonormal filling pattern. Elevated filling pressures. Wall Motion Rest Echo Findings The basal inferior and mid inferior segments are akinetic. Right Ventricle Normal right ventricular cavity size and systolic function. Atria The left atrium is severely dilated. The right atrium is moderately dilated. Aortic Valve The aortic valve was not well visualized. There is no aortic valve stenosis. There is no aortic valve regurgitation. Mitral Valve The mitral valve was not well visualized. There is mild to moderate mitral valve regurgitation. There is no mitral valve stenosis. Pulmonic Valve The pulmonic valve is likely normal. Tricuspid Valve Normal tricuspid valve structure. There is trace tricuspid valve regurgitation. Normal right atrial pressure. There is no evidence of pulmonary hypertension. Great Vessels All visible segments of the aorta are normal in size. Venous The inferior vena cava is normal in size and collapses greater than 50% with inspiration. Pericardium/Pleural There is no evidence of pericardial effusion. Prior Study Comparison No significant change compared to prior study dated: 11/24/2024. Measurements 2D Linear Measurements IVSd: 1.21 0.6-0.9/0.6-1.0 cm LVIDd: 4.86 3.9-5.3/4.2-5.9 cm LVIDd Index: 2.78 2.4-3.2/2.2-3.1 cm/m2 LVIDs: 3.72 2.0-3.6 cm LVPWd: 1.30 0.7-1.1 cm LA Diam: 4.10 2.7-3.8/3.0-4.0 cm LAIDs Index: 2.34 1.5-2.3 cm/m2 LV Mass: 296.95 67-162/88-224 g LV Mass Index: 169.68 43-95/49-115 g/m2 LVOT Diam: 2.00 3.0+(-)1.3 cm 2D Systolic Function EF 4C: 53.40 >55% EF 2C: 47.60 >55% EF BiP: 46.10 >55% Mitral Valve MV Pk E: 1.08 MV Decel Time: 154.00 E'Lateral: 11.40 E'Medial: 7.07 E/E' Med: 15.30 E/E' Lat: 9.50 PHT: 45.00 MVA PHT: 4.89 Decel Moore: 6.99 Aortic Valve AoV Pk Master: 1.23 AoV Mn Master: 0.74 AoV VTI: 0.22 AoV Pk Grad: 6.00 Aov Mn Grad: 3.00 SHAHRAM Cont.VTI: 1.99 LVOT LVOT Pk Master: 0.79 LVOT Mn Master: 0.50 LVOT VTI: 0.14 LVOT Pk Grad: 3.00 LVOT Mn Grad: 1.00 LVOT Diam: 2.00 LVOT Area: 3.14 Diastolic Function MV Pk E: 1.08 E'Medial: 7.07 E/E' Med: 15.30 E' Laterial: 11.40 E/E' Lat: 9.50 Right Ventricle TAPSE (mm): 20.90 Tricuspid Valve TR Pk Master: 2.39 TR Pk Grad: 23.00 RA Press: 3.00 RVSP: 26.00 Great Vessels Aorta Sinus of Valsalva: 3.00 2.0-3.5 cm Ao Asc: 3.10 2.1-3.4 cm Pulmonary Valve PV Pk Master: 0.77 Peak PV Grad: 2.00 Updated in Other Vendor System with Status of Final Wilder Garcia MD electronically signed on 01/31/2025 6:39:09 PM with status of Final
[2025-01-31] MEDS: Cyanocobalamin (Vitamin B-12) 1,000 MCG TABLET 1000 MCG PO (09:13)
[2025-01-31] MEDS: Metoprolol Succinate ER 25 MG TAB.ER.24H PO (09:13)
[2025-01-31] MEDS: Apixaban 5 MG TABLET PO ×2 (09:13→20:08)
[2025-01-31] MEDS: Clopidogrel Bisulfate 75 MG TABLET PO (09:13)
[2025-01-31] MEDS: Furosemide 40 MG TABLET PO (09:13)
[2025-01-31] MEDS: Omeprazole 20 MG CAPSULE.DR PO (09:14)
[2025-01-31] MEDS: 0.9 % Sodium Chloride Flush 3 ML SYRINGE IVFLUSH ×3 (09:14→20:09)
[2025-01-31] MEDS: Cholecalciferol (Vitamin D3) 25 MCG TABLET PO (09:14)
[2025-01-31] MEDS: Amiodarone HCL 200 MG TABLET PO (09:17)
--- NOTE | 2025-01-31 11:07 | MHC.IC ---
YERSINIA IN STOOL, STANDARD PRECAUTIONS
--- NOTE | 2025-01-31 13:30 | W.PM.IDCN ---
History of Present Illness Data of Consult Service Date: 01/31/25 Requesting physician: Ananth Schaefer Primary Care Provider: Amina Whitfield MD HPI Reason for consult: weakness and dehydration,bacteremia She presents with three days nausea,abdominal discomfort and diarrhea. She has no fever or chills. She does have pyuria and Klebsiella pneumonia in urine but no bacteremia. She has 1/2 strep viridans blood but no endocarditis symptoms. Review of Systems Review of Systems: Yes all other systems are reviewed and are negative [facility] Past Medical History Medical History PAF (paroxysmal atrial fibrillation) Recurrent urinary tract infection Bilateral cataracts History of cardioversion Myocardial infarction Arthritis Hx of transfusion of packed red blood cells Thyroid disease GERD (gastroesophageal reflux disease) CKD (chronic kidney disease) On anticoagulant therapy Osteoarthritis of left hip Atrial fibrillation UTI (urinary tract infection) History of smoking 30 or more pack years Atrial fibrillation with rapid ventricular response Left renal artery stenosis Personal history of nicotine dependence Cardiomyopathy Essential hypertension Atherosclerotic cardiovascular disease Asymmetric blood pressures Acute on chronic systolic (congestive) heart failure CHF (congestive heart failure) CAD (coronary artery disease) Multiple sclerosis Pulmonary nodules COPD (chronic obstructive pulmonary disease) Peripheral arterial occlusive disease Family History Family History Father No problems noted. Mother No problems noted. Brother Diabetes Family history: reviewed and not pertinent Surgical History Surgical History History of total left hip replacement (03/30/24) Hip joint replacement status History of endoscopy History of colonoscopy History of heart artery stent (~2018) Status post angioplasty with stent (~09/2018) S/P insertion of iliac artery stent (~02/2019) S/P cardiac cath (~12/2020) History of cholecystectomy (~02/2009) Social History Social History Household Members: None Housing: House Housing Other:: Sent in from [facility] Are you a primary careers adviser to a significant other at home: No Do you presently have visiting nurse or other home services: No Alcohol intake: never Comment: aware of trip hazard Patient Tobacco Use Status: Former Tobacco user Tobacco use type: Cigarette Years Smoked: 50 e-Cigarette/Vaping Use: Never Used Second Hand Smoke Exposure: No Advance Directives Date on File: 04/20/24 service: No Current occupational status: retired Cognitive needs: Yes (cane) Hearing needs: No Vision needs: Yes (reading glasses) Meds Allergies Allergy/AdvReac Type Severity Reaction Status Date / Time codeine [Codeine] AdvReac Mild vomiting Verified 01/28/25 19:11 Active Medications: Current Medications Acetaminophen (Acetaminophen 325 Mg Tablet) 650 mg PO Q6H PRN PRN Reason: Pain, Mild 1-3,fever,headache Albuterol/Ipratropium (Albuterol/Iprat 2.5/0.5mg 3 Ml Ampul.Neb) 3 ml INHALE Q4H PRN PRN Reason: Shortness of Breath/Wheezing Amiodarone HCl (Amiodarone Hcl 200 Mg Tablet) 200 mg PO DAILY [facility] Last Admin: 01/31/25 09:17 Dose: 200 mg Apixaban (Apixaban 5 Mg Tablet) 5 mg PO BID [facility] Last Admin: 01/31/25 09:13 Dose: 5 mg Atorvastatin Calcium (Atorvastatin Calcium 80 Mg Tablet) 80 mg PO BEDTIME [facility] Last Admin: 01/30/25 20:27 Dose: 80 mg Calcium Carbonate (Calcium Carbonate 750 Mg Tab.Chew) 750 mg PO Q4H PRN PRN Reason: Heartburn Ceftriaxone Sodium (Ceftriaxone Sodium 2 Gm Vial) 2 gm IVPUSH Q24H [facility] Last Admin: 01/31/25 05:06 Dose: 2 gm Clopidogrel Bisulfate (Clopidogrel Bisulfate 75 Mg Tablet) 75 mg PO DAILY [facility] Last Admin: 01/31/25 09:13 Dose: 75 mg Cyanocobalamin (Cyanocobalamin (Vitamin B-12) 1,000 Mcg Tablet) 1,000 mcg PO DAILY [facility] Last Admin: 01/31/25 09:13 Dose: 1,000 mcg Doxazosin Mesylate (Doxazosin Mesylate 1 Mg Tablet) 1 mg PO BEDTIME [facility] Last Admin: 01/30/25 20:27 Dose: 1 mg Fluticasone/Vilanterol (Fluticasone/Vilanterol 100/25 Blst.W.Dev) 1 puff INHALE RDAILY [facility] Last Admin: 01/31/25 08:13 Dose: Not Given Furosemide (Furosemide 40 Mg Tablet) 40 mg PO DAILY [facility]; Protocol Last Admin: 01/31/25 09:13 Dose: 40 mg Levothyroxine Sodium (Levothyroxine Sodium 50 Mcg Tablet) 50 mcg PO DAILY@0600 [facility] Last Admin: 01/31/25 05:06 Dose: 50 mcg Magnesium Hydroxide (Milk Of Magnesia 30 Ml Oral.Susp) 30 ml PO DAILY PRN PRN Reason: Constipation Melatonin (Melatonin 3 Mg Tablet) 6 mg PO BEDTIME PRN PRN Reason: Insomnia Last Admin: 01/30/25 20:28 Dose: 6 mg Metoprolol Succinate (Metoprolol Succinate Er 25 Mg Tab.Er.24h) 25 mg PO DAILY [facility]; Protocol Last Admin: 01/31/25 09:13 Dose: 25 mg Omeprazole (Omeprazole 20 Mg Capsule.Dr) 20 mg PO DAILY@0630 [facility] Last Admin: 01/31/25 09:14 Dose: 20 mg Ondansetron HCl (Ondansetron Hcl 4 Mg/2 Ml Vial) 4 mg IVPUSH Q8H PRN PRN Reason: Nausea and Vomiting Last Admin: 01/29/25 23:52 Dose: 4 mg Paroxetine HCl (Paroxetine Hcl 40 Mg Tablet) 40 mg PO BEDTIME [facility] Last Admin: 01/30/25 20:27 Dose: 40 mg Potassium Chloride (Potassium Chloride Er 20 Meq Tab.Er.Prt) 20 meq PO DAILY [facility] Last Admin: 01/31/25 09:15 Dose: Not Given Sodium Chloride (0.9 % Sodium Chloride Flush 3 Ml Syringe) 3 ml IVFLUSH QSHIFT [facility] Last Admin: 01/31/25 09:14 Dose: 3 ml Vitamin D (Cholecalciferol (Vitamin D3) 25 Mcg Tablet) 25 mcg PO DAILY [facility] Last Admin: 01/31/25 09:14 Dose: 25 mcg Home Medications ?Medication ?Instructions ?Recorded ?Confirmed ?Last Taken ?Type paroxetine HCl 40 mg tablet 40 mg PO BEDTIME 10/03/20 01/29/25 07/21/24 History cholecalciferol (vitamin D3) 25 25 mcg PO DAILY 12/20/20 01/29/25 01/28/25 09:00 History mcg (1,000 unit) tablet (Vitamin D3) cyanocobalamin (vitamin B-12) 1,000 mcg PO DAILY 0201/29/25 01/28/25 09:00 History 1,000 mcg tablet (Vitamin B-12) melatonin 10 mg tablet 10 mg PO BEDTIME Insomnia 01/13/23 01/29/25 07/21/24 History levothyroxine 50 mcg tablet 50 mcg PO DAILY@0600 09/02/23 01/29/25 01/28/25 06:00 History (Synthroid) pantoprazole 40 mg tablet,delayed 40 mg PO DAILY@0630 03/15/24 01/29/25 01/28/25 07:00 History release acetaminophen 500 mg tablet 650 mg PO Q4H PRN Pain 04/21/24 01/29/25 Unknown History amiodarone 200 mg tablet 200 mg PO DAILY 04/21/24 01/29/25 01/28/25 09:00 History metoprolol succinate 25 mg 25 mg PO DAILY 09/16/24 01/29/25 01/28/25 09:00 History tablet,extended release 24 hr fluticasone 113 mcg-salmeterol 14 1 inh inhalation Q12H 01/29/25 01/29/25 2 Weeks Ago History mcg/actuation breath activated ~01/15/25 powdr Physical Exam Vital Signs: Vital Signs: Last Vital Signs Temp 97.1 F 01/31/25 12:00 Pulse 76 01/31/25 12:00 Resp 18 01/31/25 12:00 BP 94/67 01/31/25 12:00 Pulse Ox 99 01/31/25 12:00 O2 Del Method Room Air 01/31/25 12:00 BMI result Body Mass Index 23.6 Const: General: cooperative HEENT: Head: Yes normal to inspection Face and sinus: Yes normal facial exam Mouth: Normal oral and palatal mucosa present Teeth and gingiva: dentition normal Eyes: General: appearance normal, both eyes and all related structures Pupils: Equal, round and reactive pupils present Resp: Effort & Inspection: normal respiratory effort Cardio: Rate: regular rate Rhythm: regular rhythm GI: Palpation (GI): Soft to palpation and nontender : General: Yes no CVA tenderness Back/Spine/Pelvis: Back: no CVA tenderness Skin: General skin exam: no rashes or lesions noted Neuro: General: moves all extremities Cranial nerves: Yes Equal, round and reactive pupils present Extrem: General: Yes normal to inspection Psych: Appearance: grossly normal Results Labs 01/29/25 05:13 01/30/25 07:17 Microbiology Microbiology Results: Microbiology 01/29/25 Unknown Urine Catheterized - Hou Catheter Urine Culture - Preliminary Klebsiella pneumoniae 01/29/25 02:19 Blood - Venous Blood Culture - Final Streptococcus viridans group 01/29/25 02:19 Blood - Venous Blood Culture - Preliminary No growth after 48 hours. Assessment and Plan (1) Gram-positive bacteremia: Status: Acute (2) HFrEF (heart failure with reduced ejection fraction): Status: Acute (3) Orthostatic hypotension: Status: Acute (4) Multiple sclerosis, relapsing-remitting: Status: Acute (5) Urinary tract infection: Qualifiers: Hematuria presence: with hematuria Urinary tract infection type: acute cystitis Qualified Code(s): N30.01 - Acute cystitis with hematuria Status: Acute Plan gram positive bacteremia strep viridans is contaminant Klebsiella bactereuria likely cause of dehydration and subsequent atrial fibrillation. QT prolongation concern for quinolone GFR below 30,no nitrofurantoin. yersenia stool,no complaints diarrhea 7 days Ertapenem .5 g IV daily best cover urine.
--- NOTE | 2025-01-31 15:30 | MHC.CM.PN ---
Per EMR review, pt is not ready to DC, she needs ongoing acute care for tx of: afib with rvr and IV ABX. CM will follow for DC needs.
[2025-01-31] MEDS: Meropenem 1 GM VIAL IV (16:04)
--- NOTE | 2025-01-31 17:22 | P.PNIM_ITS ---
Subjective Subjective Date of Service: 02/01/25 Interval History: Being followed for AFib RVR/UTI/weakness Complaining of persistent weakness tolerating diet no nausea, no vomiting, no other acute events overnight. Tele monitor showed AFib rate controlled. Review of Systems All other system reviewed and are negative Physical Exam 2 Vital Signs: Vital Signs: Last Vital Signs Temp 97.1 F 01/31/25 15:28 Pulse 80 01/31/25 15:28 Resp 18 01/31/25 15:28 BP 128/66 01/31/25 15:28 Pulse Ox 99 01/31/25 15:28 O2 Del Method Room Air 01/31/25 15:28 BMI result Body Mass Index 23.6 Const: Other: Gen: in no acute distress HEENT: sclera anicteric, moist mucus membranes Neck: supple,no jvd Lungs: clear to auscultation bilaterally Heart: irregular, systolic murmur at apex Abd: soft, non-tender, non-distended Ext: no edema Skin: warm/well-perfused Neuro: alert and oriented x3, no focal findings Psych: appropriate affect Objective Data Active Medications Acetaminophen (Acetaminophen 325 Mg Tablet) 650 mg PO Q6H PRN PRN Reason: Pain, Mild 1-3,fever,headache Albuterol/Ipratropium (Albuterol/Iprat 2.5/0.5mg 3 Ml Ampul.Neb) 3 ml INHALE Q4H PRN PRN Reason: Shortness of Breath/Wheezing Amiodarone HCl (Amiodarone Hcl 200 Mg Tablet) 200 mg PO DAILY [facility] Last Admin: 01/31/25 09:17 Dose: 200 mg Documented By: LILIBETH Apixaban (Apixaban 5 Mg Tablet) 5 mg PO BID [facility] Last Admin: 01/31/25 09:13 Dose: 5 mg Documented By: LILIBETH Atorvastatin Calcium (Atorvastatin Calcium 80 Mg Tablet) 80 mg PO BEDTIME [facility] Last Admin: 01/30/25 20:27 Dose: 80 mg Documented By: KARL Calcium Carbonate (Calcium Carbonate 750 Mg Tab.Chew) 750 mg PO Q4H PRN PRN Reason: Heartburn Clopidogrel Bisulfate (Clopidogrel Bisulfate 75 Mg Tablet) 75 mg PO DAILY [facility] Last Admin: 01/31/25 09:13 Dose: 75 mg Documented By: LILIBETH Cyanocobalamin (Cyanocobalamin (Vitamin B-12) 1,000 Mcg Tablet) 1,000 mcg PO DAILY [facility] Last Admin: 01/31/25 09:13 Dose: 1,000 mcg Documented By: LILIBETH Doxazosin Mesylate (Doxazosin Mesylate 1 Mg Tablet) 1 mg PO BEDTIME [facility] Last Admin: 01/30/25 20:27 Dose: 1 mg Documented By: KARL Fluticasone/Vilanterol (Fluticasone/Vilanterol 100/25 Blst.W.Dev) 1 puff INHALE RDAILY [facility] Last Admin: 01/31/25 08:13 Dose: Not Given Documented By: NILES Non-Admin Reason: Patient Refused Furosemide (Furosemide 40 Mg Tablet) 40 mg PO DAILY [facility]; Protocol Last Admin: 01/31/25 09:13 Dose: 40 mg Documented By: LILIBETH Levothyroxine Sodium (Levothyroxine Sodium 50 Mcg Tablet) 50 mcg PO DAILY@0600 [facility] Last Admin: 01/31/25 05:06 Dose: 50 mcg Documented By: KARL Magnesium Hydroxide (Milk Of Magnesia 30 Ml Oral.Susp) 30 ml PO DAILY PRN PRN Reason: Constipation Melatonin (Melatonin 3 Mg Tablet) 6 mg PO BEDTIME PRN PRN Reason: Insomnia Last Admin: 01/30/25 20:28 Dose: 6 mg Documented By: KARL Meropenem (Meropenem 1 Gm Vial) 1 gm IV Q12H [facility] Last Admin: 01/31/25 16:04 Dose: 1 gm Documented By: LILIBETH Metoprolol Succinate (Metoprolol Succinate Er 25 Mg Tab.Er.24h) 25 mg PO DAILY [facility]; Protocol Last Admin: 01/31/25 09:13 Dose: 25 mg Documented By: LILIBETH Omeprazole (Omeprazole 20 Mg Capsule.Dr) 20 mg PO DAILY@0630 [facility] Last Admin: 01/31/25 09:14 Dose: 20 mg Documented By: LILIBETH Ondansetron HCl (Ondansetron Hcl 4 Mg/2 Ml Vial) 4 mg IVPUSH Q8H PRN PRN Reason: Nausea and Vomiting Last Admin: 01/29/25 23:52 Dose: 4 mg Documented By: KARL Paroxetine HCl (Paroxetine Hcl 40 Mg Tablet) 40 mg PO BEDTIME [facility] Last Admin: 01/30/25 20:27 Dose: 40 mg Documented By: KARL Potassium Chloride (Potassium Chloride Er 20 Meq Tab.Er.Prt) 20 meq PO DAILY [facility] Last Admin: 01/31/25 09:15 Dose: Not Given Documented By: LILIBETH Non-Admin Reason: Patient Refused Sodium Chloride (0.9 % Sodium Chloride Flush 3 Ml Syringe) 3 ml IVFLUSH QSHIFT [facility] Last Admin: 01/31/25 16:04 Dose: 3 ml Documented By: LILIBETH Vitamin D (Cholecalciferol (Vitamin D3) 25 Mcg Tablet) 25 mcg PO DAILY [facility] Last Admin: 01/31/25 09:14 Dose: 25 mcg Documented By: LILIBETH Labs 01/29/25 05:13 01/30/25 07:17 Microbiology Microbiology Results: Microbiology 01/29/25 Unknown Urine Culture - Preliminary Urine Catheterized - Hou Catheter Klebsiella pneumoniae 01/29/25 02:19 Blood Culture - Final Blood - Venous Streptococcus viridans group 01/29/25 02:19 Blood Culture - Preliminary Blood - Venous No growth after 48 hours. Assessment and Plan (1) Generalized weakness: Status: Acute (2) COPD (chronic obstructive pulmonary disease): Status: Acute (3) Multiple sclerosis, relapsing-remitting: Status: Acute (4) CKD (chronic kidney disease): Status: Acute Plan 69-year-old female with past medical history multiple sclerosis remitting relapsing not currently on injectables, COPD not currently on home O2, chronic kidney disease stage 4, hypothyroidism, urinary tract infection, urinary retention, atrial fibrillation on anticoagulation, heart failure with reduced ejection fracture, COVID, cataract repair, peripheral arterial disease, non STEMI, left hip replacement. Admitted for UTI, AFIB with RVR and weakness AFIB w/ RVR, up to 150s, now rate controlled, s/p IV diltiazem continue home meds with amio and metoprolol continue eliquis Orthostatic hypotension/ no syncope, related to dehydation, diarrhea iv cardizem resolved. Urinary tract infection/ hx of urinary retention/neurogenic bladdder Urine culture grew Klebsiella resistant to cefazolin, cefepime sensitive to Cipro, ertapenem, genta Seen by ID she recommend 7 days of IV ertapenem, will avoid Cipro and nitrofurantoin due to renal disease. 1/2 blood culture grew Streptococcus viridans likely contamination Diarrhea and associated dehydration, neg cdif, +PCR for Yesernia Enterocolitic, diarrhea resolved. Hypokalemia d/t diarrhea, replaced and resolved Generalized weakness d/t uti Physical therapy consulted they recommend short-term rehab Multiple sclerosis relapsing remitting Chronic with no recent flares. outpatient follow up Chronic kidney disease stage IV, Cr stable within baseline. Hypothyroidism, TSH 5.43, Continue levothyroxine and adjust as needed follow tsh in 6 weeks COPD patient is not on home O2, no exacerbation, inhalers prn . HFrEF BNP is 313, no exacerbation resume home meds as needed DVT prophylaxis: Apixaban PPI prophylaxis: Omeprazole Will require continued inpatient admission for iv antibiotics and safe disposition. Quality Stroke Does the patient have a stroke diagnosis?: No Reason for No Anti-thrombotic by Day Two: N/A - Med Ordered VTE Prior VTE?: No VTE Risk Level:: Medical - moderate - high VTE Device Contraindication: N/A - Device Ordered VTE Drug Contraindication: N/A - Med Ordered
[2025-01-31] MEDS: Atorvastatin Calcium 80 MG TABLET PO (20:08)
[2025-01-31] MEDS: PARoxetine HCL 40 MG TABLET PO (20:08)
[2025-01-31] MEDS: Doxazosin Mesylate 1 MG TABLET PO (20:08)
[2025-01-31] MEDS: Acetaminophen 325 MG TABLET 650 MG PO (20:13)
[2025-02-01] MEDS: Meropenem 1 GM VIAL IV ×2 (02:37→16:03)
[2025-02-01] MEDS: Melatonin 3 MG TABLET 6 MG PO ×2 (02:41→21:04)
[2025-02-01 03:44] VITALS: BP 103/56; PULSE 82; RESP 18; TEMP 36.1; O2SAT 97
[2025-02-01 05:53] VITALS: BMI 24.9
[2025-02-01] MEDS: Levothyroxine Sodium 50 MCG TABLET PO (06:13)
[2025-02-01 08:00] VITALS: BP 130/61; PULSE 80; RESP 16; TEMP 36.2; O2SAT 96
[2025-02-01] MEDS: Cholecalciferol (Vitamin D3) 25 MCG TABLET PO (08:57)
[2025-02-01] MEDS: Apixaban 5 MG TABLET PO ×2 (08:57→21:04)
[2025-02-01] MEDS: Clopidogrel Bisulfate 75 MG TABLET PO (08:57)
[2025-02-01] MEDS: Amiodarone HCL 200 MG TABLET PO (08:57)
[2025-02-01] MEDS: Omeprazole 20 MG CAPSULE.DR PO (08:58)
[2025-02-01] MEDS: Cyanocobalamin (Vitamin B-12) 1,000 MCG TABLET 1000 MCG PO (08:58)
[2025-02-01] MEDS: 0.9 % Sodium Chloride Flush 3 ML SYRINGE IVFLUSH ×3 (09:00→21:05)
[2025-02-01 09:01] VITALS: BP 130/61; PULSE 80
[2025-02-01] MEDS: Furosemide 40 MG TABLET PO (09:01)
[2025-02-01] MEDS: Metoprolol Succinate ER 25 MG TAB.ER.24H PO (09:01)
[2025-02-01 11:12] VITALS: BP 128/57; PULSE 88; RESP 16; TEMP 36; O2SAT 99
--- NOTE | 2025-02-01 15:04 | HO.PM.IMPN ---
Subjective Subjective Date of Service: 02/01/25 Interval History: Feeling better today, denies chest pain, no palpitation, continued to feel weak, voiding without difficulty, good urine output, no acute events overnight. Review of Systems All other system reviewed and are negative. Physical Exam Vital Signs: Vital Signs: Last Vital Signs Temp 96.8 F 02/01/25 11:12 Pulse 88 02/01/25 11:12 Resp 16 02/01/25 11:12 BP 128/57 L 02/01/25 11:12 Pulse Ox 99 02/01/25 11:12 O2 Del Method Room Air 02/01/25 11:12 BMI result Body Mass Index 24.9 Const: Other: Gen: in no acute distress HEENT: sclera anicteric, moist mucus membranes Neck: supple,no jvd Lungs: clear to auscultation bilaterally Heart: irregular, systolic murmur at apex Abd: soft, non-tender, non-distended Ext: no edema Skin: warm/well-perfused Neuro: alert and oriented x3, no focal findings Psych: appropriate affect Objective Data Active Medications Acetaminophen (Acetaminophen 325 Mg Tablet) 650 mg PO Q6H PRN PRN Reason: Pain, Mild 1-3,fever,headache Last Admin: 01/31/25 20:13 Dose: 650 mg Documented By: DAVID Albuterol/Ipratropium (Albuterol/Iprat 2.5/0.5mg 3 Ml Ampul.Neb) 3 ml INHALE Q4H PRN PRN Reason: Shortness of Breath/Wheezing Amiodarone HCl (Amiodarone Hcl 200 Mg Tablet) 200 mg PO DAILY [facility] Last Admin: 02/01/25 08:57 Dose: 200 mg Documented By: BAO Apixaban (Apixaban 5 Mg Tablet) 5 mg PO BID [facility] Last Admin: 02/01/25 08:57 Dose: 5 mg Documented By: BAO Atorvastatin Calcium (Atorvastatin Calcium 80 Mg Tablet) 80 mg PO BEDTIME [facility] Last Admin: 01/31/25 20:08 Dose: 80 mg Documented By: DAVID Calcium Carbonate (Calcium Carbonate 750 Mg Tab.Chew) 750 mg PO Q4H PRN PRN Reason: Heartburn Clopidogrel Bisulfate (Clopidogrel Bisulfate 75 Mg Tablet) 75 mg PO DAILY [facility] Last Admin: 02/01/25 08:57 Dose: 75 mg Documented By: BAO Cyanocobalamin (Cyanocobalamin (Vitamin B-12) 1,000 Mcg Tablet) 1,000 mcg PO DAILY [facility] Last Admin: 02/01/25 08:58 Dose: 1,000 mcg Documented By: BAO Doxazosin Mesylate (Doxazosin Mesylate 1 Mg Tablet) 1 mg PO BEDTIME [facility] Last Admin: 01/31/25 20:08 Dose: 1 mg Documented By: DAVID Fluticasone/Vilanterol (Fluticasone/Vilanterol 100/25 Blst.W.Dev) 1 puff INHALE RDAILY [facility] Last Admin: 02/01/25 08:26 Dose: Not Given Documented By: NILES Non-Admin Reason: Patient Refused Furosemide (Furosemide 40 Mg Tablet) 40 mg PO DAILY [facility]; Protocol Last Admin: 02/01/25 09:01 Dose: 40 mg Documented By: BAO Levothyroxine Sodium (Levothyroxine Sodium 50 Mcg Tablet) 50 mcg PO DAILY@0600 [facility] Last Admin: 02/01/25 06:13 Dose: 50 mcg Documented By: DAVID Magnesium Hydroxide (Milk Of Magnesia 30 Ml Oral.Susp) 30 ml PO DAILY PRN PRN Reason: Constipation Melatonin (Melatonin 3 Mg Tablet) 6 mg PO BEDTIME PRN PRN Reason: Insomnia Last Admin: 02/01/25 02:41 Dose: 6 mg Documented By: DAVID Meropenem (Meropenem 1 Gm Vial) 1 gm IV Q12H [facility] Last Admin: 02/01/25 02:37 Dose: 1 gm Documented By: DAVID Metoprolol Succinate (Metoprolol Succinate Er 25 Mg Tab.Er.24h) 25 mg PO DAILY [facility]; Protocol Last Admin: 02/01/25 09:01 Dose: 25 mg Documented By: BAO Omeprazole (Omeprazole 20 Mg Capsule.Dr) 20 mg PO DAILY@0630 [facility] Last Admin: 02/01/25 08:58 Dose: 20 mg Documented By: BAO Ondansetron HCl (Ondansetron Hcl 4 Mg/2 Ml Vial) 4 mg IVPUSH Q8H PRN PRN Reason: Nausea and Vomiting Last Admin: 01/29/25 23:52 Dose: 4 mg Documented By: KARL Paroxetine HCl (Paroxetine Hcl 40 Mg Tablet) 40 mg PO BEDTIME [facility] Last Admin: 01/31/25 20:08 Dose: 40 mg Documented By: DAVID Potassium Chloride (Potassium Chloride Er 20 Meq Tab.Er.Prt) 20 meq PO DAILY [facility] Last Admin: 02/01/25 10:45 Dose: Not Given Documented By: BAO Non-Admin Reason: Patient Refused Sodium Chloride (0.9 % Sodium Chloride Flush 3 Ml Syringe) 3 ml IVFLUSH QSHIFT [facility] Last Admin: 02/01/25 09:00 Dose: 3 ml Documented By: BAO Vitamin D (Cholecalciferol (Vitamin D3) 25 Mcg Tablet) 25 mcg PO DAILY [facility] Last Admin: 02/01/25 08:57 Dose: 25 mcg Documented By: BAO Labs 01/29/25 05:13 01/30/25 07:17 Microbiology Microbiology Results: Microbiology 01/29/25 Unknown Urine Culture - Final Urine Catheterized - Hou Catheter Klebsiella pneumoniae Assessment and Plan (1) HFrEF (heart failure with reduced ejection fraction): Status: Acute (2) Generalized weakness: Status: Acute (3) Multiple sclerosis, relapsing-remitting: Status: Acute (4) CKD (chronic kidney disease): Status: Acute (5) Urinary tract infection: Status: Acute Plan 69-year-old female with past medical history multiple sclerosis remitting relapsing not currently on injectables, COPD not currently on home O2, chronic kidney disease stage 4, hypothyroidism, urinary tract infection, urinary retention, atrial fibrillation on anticoagulation, heart failure with reduced ejection fracture, COVID, cataract repair, peripheral arterial disease, non STEMI, left hip replacement. Admitted for UTI, AFIB with RVR and weakness AFIB w/ RVR, up to 150s, now rate controlled, s/p IV diltiazem continue home meds with amio and metoprolol continue eliquis Orthostatic hypotension/ no syncope, related to dehydation, diarrhea and iv cardizem resolved. Urinary tract infection/ hx of urinary retention/neurogenic bladdder Urine culture grew Klebsiella resistant to cefazolin, cefepime sensitive to Cipro, ertapenem, genta Seen by ID she recommend 7 days of IV ertapenem, currently on meropenem day 2/7 will avoid Cipro and nitrofurantoin due to renal disease. Midline ordered 10/28 blood culture grew Streptococcus viridans likely contamination Diarrhea and associated dehydration, neg cdif, +PCR for Yesernia Enterocolitic, diarrhea resolved. Hypokalemia d/t diarrhea, replaced and resolved Generalized weakness d/t uti Physical therapy consulted they recommend short-term rehab Multiple sclerosis relapsing remitting Chronic with no recent flares, outpatient follow up Chronic kidney disease stage IV, Cr stable within baseline. Hypothyroidism, TSH 5.43, Continue levothyroxine and adjust as needed follow tsh in 6 weeks COPD patient is not on home O2, no exacerbation, inhalers prn . HFrEF BNP is 313, no exacerbation DVT prophylaxis: Apixaban PPI prophylaxis: Omeprazole Will require continued inpatient admission for iv antibiotics and safe disposition to rehab. Quality Stroke Does the patient have a stroke diagnosis?: No Reason for No Anti-thrombotic by Day Two: N/A - Med Ordered VTE Prior VTE?: No VTE Risk Level:: Medical - moderate - high VTE Device Contraindication: N/A - Device Ordered VTE Drug Contraindication: N/A - Med Ordered
--- NOTE | 2025-02-01 15:22 | HO.MIDLINE ---
Midline Insertion MIDLINE INSERTION Diagnosis: UTI Indication: custodial antibiotics needed Pertinent Labs: reviewed Technique: Using sterile technique including cap and mask, glove and drape, the right arm was prepped and draped in the usual sterile fashion of full barrier technique with G. Using ultrasound guidance, right cephalic vein access was obtained on first attempt. A 20G X 8CM non-PASV ST Midline was positioned. The procedure was performed in S272. Ultrasound was used to document vein patency and for needle entry. A formal ultrasound picture was recorded. Vascular Paper Coating Machine Operator has released the line for use and it is currently dressed with a StatLock, Tegaderm, and CHG disc. Verification has been performed for blood return and line patency. Arm Circumference: 31 CM Equipment: PowerGlide ST Midline catheter Catheter Type: 20G X 8CM non-PASV ST Midline Lot #: [id number]
[2025-02-01 19:17] VITALS: BP 99/54; PULSE 77; RESP 16; TEMP 36.8; O2SAT 95
[2025-02-01] MEDS: Atorvastatin Calcium 80 MG TABLET PO (21:04)
[2025-02-01] MEDS: PARoxetine HCL 40 MG TABLET PO (21:04)
[2025-02-01 23:44] VITALS: BP 120/55; PULSE 88; RESP 18; TEMP 36.6; O2SAT 96
[2025-02-02] MEDS: Meropenem 1 GM VIAL IV (02:17)
[2025-02-02 04:00] VITALS: BP 104/70; PULSE 97; RESP 18; TEMP 36.3; O2SAT 95
[2025-02-02] MEDS: Levothyroxine Sodium 50 MCG TABLET PO (05:50)
[2025-02-02 06:00] VITALS: BMI 23.2
[2025-02-02 07:05] VITALS: BP 107/59; PULSE 71; RESP 20; TEMP 36.4; O2SAT 95
[2025-02-02] MEDS: Clopidogrel Bisulfate 75 MG TABLET PO (09:25)
[2025-02-02] MEDS: Cyanocobalamin (Vitamin B-12) 1,000 MCG TABLET 1000 MCG PO (09:25)
[2025-02-02] MEDS: Apixaban 5 MG TABLET PO (09:25)
[2025-02-02] MEDS: Amiodarone HCL 200 MG TABLET PO (09:25)
[2025-02-02] MEDS: Furosemide 40 MG TABLET PO (09:25)
[2025-02-02] MEDS: Omeprazole 20 MG CAPSULE.DR PO (09:26)
[2025-02-02] MEDS: Cholecalciferol (Vitamin D3) 25 MCG TABLET PO (09:26)
[2025-02-02] MEDS: Metoprolol Succinate ER 25 MG TAB.ER.24H PO (09:26)
[2025-02-02] MEDS: 0.9 % Sodium Chloride Flush 3 ML SYRINGE IVFLUSH (09:26)
--- NOTE | 2025-02-02 10:18 | PM.DS ---
DS: Providers Provider Date of Service: 02/02/25 Date of admission: 01/29/25 02:24 Date of discharge: 02/02/25 Primary care physician: Amina Whitfield MD Consults: 01/31/25 10:45 Consult to Infectious Diseases Routine Consulting Provider: [facility] Reason for consultation: gm pos bacteremia/uti Has provider been notified: No 01/31/25 13:54 Consult to Infectious Diseases Routine Consulting Provider: [facility] Reason for consultation: uti DS: Diagnosis Discharge Diagnosis (1) HFrEF (heart failure with reduced ejection fraction): Status: Acute (2) Generalized weakness: Status: Acute (3) Multiple sclerosis, relapsing-remitting: Status: Acute (4) CKD (chronic kidney disease): Status: Acute (5) Urinary tract infection: Status: Acute DS: Summary Hospital Course Hospital Course: History of presenting illness: Date of Service: 01/29/25 Attending physician on admission: Ashish Jones Chief Complaint: weakness, diarrhea Patient is a 69-year-old female with past medical history multiple sclerosis remitting relapsing not currently on injectables, COPD not currently on home O2, chronic kidney disease stage 4, hypothyroidism, urinary tract infection, urinary retention, atrial fibrillation on anticoagulation, heart failure with reduced ejection fracture, COVID, cataract repair, peripheral arterial disease, non STEMI, left hip replacement was taken to the emergency department for profound weakness after having 3 days of diarrhea and poor appetite. Patient was found to be in AFib RVR and received 10 mg of Cardizem IV x1. Patient was orthostatic after this treatment. Patient did not have any syncope. Patient is currently receiving the 2nd of 2 bags of IV fluid at 100 mL/hour. Patient's renal function currently at baseline noting history of chronic kidney disease stage 4. Liver function testing within normal limits. BNP and lactic acid pending. UA positive for moderate leukocyte esterase +2, white blood cells 21-50, 4+ bacteria. Patient was started on ceftriaxone. Blood cultures were obtained. Stool panel was also sent along with C diff noting patient's diarrhea. All viral studies were negative. Chest x-ray is pending. Patient's most important concern was being admitted under observation as she does not want to receive a bill for hospitalization due to her insurance. Spoke with patient about her living situation and the fact that she lives alone and has been having more falls secondary to her multiple sclerosis but denies any recent flares. Patient now is more receptive to learning more about home care and case management referral has been placed. Patient no longer drives and is considered homebound. Patient is being admitted under observation status for urinary tract infection, AFib with RVR and rate is currently controlled, as well as weakness and persistent diarrhea and correlating dehydration. Patient does not meet the criteria for SIRS or sepsis. Hospital course: 69-year-old female with past medical history multiple sclerosis remitting relapsing not currently on injectables, COPD not currently on home O2, chronic kidney disease stage 4, hypothyroidism, urinary tract infection, urinary retention, atrial fibrillation on anticoagulation, heart failure with reduced ejection fracture, COVID, cataract repair, peripheral arterial disease, non STEMI, left hip replacement. Admitted for UTI, AFIB with RVR and weakness. AFIB w/ RVR, had an episode of rapid heart rate treated with IV diltiazem with good response continue amiodarone, metoprolol and Eliquis. History of heart failure with reduced EF BNP 313 noted to have no acute exacerbation. Urinary tract infection with history of hx of urinary retention/neurogenic bladdder, Urine culture grew Klebsiella resistant to cefazolin and cefepime sensitive to Cipro, ertapenem, genta, seen by infectious disease Dr. Foy she recommended 7 days of IV ertapenem renally dose 0.5 g end date February 06, midline placed on 02/01, patient had brief episode of orthostatic hypotension likely due to dehydration , diarrhea and IV diltiazem repeat blood pressures have been stable. Diarrhea and associated dehydration, neg cdif, +PCR for Yesernia Enterocolitic, diarrhea resolved, noted to have hypokalemia due to diarrhea and repleted and normalized. Generalized weakness d/t uti Physical therapy consulted they recommend short-term rehab Multiple sclerosis relapsing remitting Chronic with no recent flares, outpatient follow up with PCP Chronic kidney disease stage IV, Cr stable within baseline. Hypothyroidism, TSH 5.43, Continue levothyroxine and follow tsh in 6 weeks COPD no exacerbation noted continue home inhalers . Time Attestation Discharge Coordination Time (in mins): 40 Quality: Safe Use of Opioids Does Pt have an Active Cancer Diagnosis on the Problem List?: No Quality: Stroke Does the patient have a stroke diagnosis?: No Physical Exam Vital Signs: Vital Signs: Last Vital Signs Temp 97.5 F 02/02/25 07:05 Pulse 71 02/02/25 07:05 Resp 20 02/02/25 07:05 BP 107/59 L 02/02/25 07:05 Pulse Ox 95 02/02/25 07:05 O2 Del Method Room Air 02/02/25 07:05 BMI result Body Mass Index 23.2 Const: Other: Gen: in no acute distress HEENT: sclera anicteric, moist mucus membranes Neck: supple,no jvd Lungs: clear to auscultation bilaterally Heart: irregular, systolic murmur at apex Abd: soft, non-tender, non-distended Ext: no edema Skin: warm/well-perfused Neuro: alert and oriented x3, no focal findings Psych: appropriate affect DS: Data Data Completed and Pending Completed studies during hospitalization [Text1]: Procedures Extraction of Left Foot Skin, External Approach (07/22/24) Replacement of Left Hip Joint with Ceramic Synthetic Substitute, Uncemented, Open Approach (03/30/24) Sabianist of Cardiac Rhythm, Single (09/13/21) Transfusion of Nonautologous Red Blood Cells into Peripheral Vein, Percutaneous Approach (03/30/24) Labs on day of discharge: Preliminary micro results at discharge 01/29/25 02:19 Blood Culture - Preliminary Blood - Venous No growth after 48 hours. Discharge Plan Discharge Anticipated Discharge Date/Time: 02/02/25 07:42 Patient Disposition: Xfer SNF Discharge Diagnosis: Acute UTI Atrial fibrillation with RVR Hypokalemia Referrals: Amina Whitfield MD [Primary Care Provider] - 1 Week Discharge Medications: Continued atorvastatin 80 mg tablet 80 mg PO BEDTIME Qty: 90 1RF Eliquis 5 mg tablet 5 mg PO BID Qty: 180 3RF furosemide 20 mg tablet 40 mg PO DAILY 90 Days Qty: 180 0RF Protocol: Hold for SBP< HOLD for SBP < : 90 clopidogrel 75 mg tablet 75 mg PO DAILY Qty: 90 3RF cyanocobalamin (vitamin B-12) [Vitamin B-12] 1,000 mcg Tablet 1,000 mcg PO DAILY cholecalciferol (vitamin D3) [Vitamin D3] 25 mcg (1,000 unit) Tablet 25 mcg PO DAILY melatonin 10 mg Tablet 10 mg PO BEDTIME amiodarone 200 mg tablet 200 mg PO DAILY acetaminophen 500 mg Tablet 650 mg PO Q4H PRN (Reason: Pain) fluticasone propion-salmeterol 113-14 mcg/actuation aerosol powdr breath activated 1 inh inhalation Q12H pantoprazole 40 mg tablet,delayed release (DR/EC) 40 mg PO DAILY@0630 paroxetine HCl 40 mg tablet 40 mg PO BEDTIME metoprolol succinate 25 mg tablet extended release 24 hr 25 mg PO DAILY levothyroxine [Synthroid] 50 mcg tablet 50 mcg PO DAILY@0600 terazosin 1 mg capsule 1 mg PO BEDTIME 90 Days Qty: 90 1RF Discharge Orders: Discharge Order (Routine); Ordered 02/02/25 Ordered By: Ananth Schaefer Diet: Advance to usual diet Activity on Discharge: As tolerated Stand Alone Forms: Patient Portal Discharge page Print Language: [place] Care Plan Goals: Atrial fibrillation with RVR resolved continue home medicine metoprolol, amiodarone and Eliquis KLEBSIELLA UTI TAKE ERTAPENEM 0.5 MG IV DAILY END DATE Chronic kidney disease Status post placement of non PASV midline placed on 02/01 Health Concerns: Continue all home medications as above Plan of Treatment: Outpatient follow-up with primary care physician/Cardiology Assessment: As above
--- NOTE | 2025-02-02 10:31 | MHC.CM.PN ---
Second IMM 02/02/25, Pt has been medically cleared for DC, she will go to [facility] via BLS this afternoon.
[2025-02-02 11:05] VITALS: BP 116/84; PULSE 86; RESP 18; TEMP 36.3; O2SAT 92
[2025-02-02] MEDS: ondansetron HCL 4 MG/2 ML VIAL IVPUSH (12:24)
== END 2025-02-02 13:00 | disposition skilled nursing facility (03) | DRG 690 ==
LOC: HO.ED 01-29 01:54 → HO.EDOVER 01-29 02:59 → HO.IMC 01-29 16:09
PROVIDERS: Internal Medicine; Admitting Provider Nurse Practitioner Family; Emergency Provider Internal Medicine; PCP Internal Medicine; Visit Provider Hospitalist
DX: N39.0 Urinary tract infection, site not specified (principal); A04.6 Enteritis due to Yersinia enterocolitica; I50.22 Chronic systolic (congestive) heart failure; N18.4 Chronic kidney disease, stage 4 (severe); Z16.19 Resistance to other specified beta lactam antibiotics; I48.91 Unspecified atrial fibrillation; I25.10 Atherosclerotic heart disease of native coronary artery without angina pectoris; G35 Multiple sclerosis; N31.9 Neuromuscular dysfunction of bladder, unspecified; E86.0 Dehydration; J44.9 Chronic obstructive pulmonary disease, unspecified; R33.9 Retention of urine, unspecified; E03.9 Hypothyroidism, unspecified; I95.1 Orthostatic hypotension; B96.1 Klebsiella pneumoniae [K. pneumoniae] as the cause of diseases classified elsewhere; Z20.822 Contact with and (suspected) exposure to COVID-19; Z87.440 Personal history of urinary (tract) infections; Z87.891 Personal history of nicotine dependence; Z79.01 Long term (current) use of anticoagulants; Z79.02 Long term (current) use of antithrombotics/antiplatelets; Z79.51 Long term (current) use of inhaled steroids; Z79.890 Hormone replacement therapy; Z79.899 Other long term (current) drug therapy
CPT/HCPCS: 0241U; 36410; 36415; 71045; 80048; 80053; 81001; 82550; 83605; 83735; 83880; 84132; 84443; 84484; 85025; 85610; 85730; 87040; 87086; 87088; 87186; 87205; 87493; 87507; 93005; 93306; 97161; 99222; 99285; J0696; J2185; J2405; J3480; Q9957

== ENCOUNTER → 2025-01-28 19:47 | Outpatient (BNV) | payer MEDICARE, BC, SELFPAY | PROVIDERS: Admitting Provider Nurse Practitioner Family; Emergency Provider Internal Medicine; PCP Internal Medicine; Visit Provider Internal Medicine | DX: I48.91 Unspecified atrial fibrillation (principal); I51.7 Cardiomegaly | CPT/HCPCS: 93010 ==

== ENCOUNTER → 2025-01-29 01:52 | Outpatient (BNV) | payer MEDICARE, BC, SELFPAY | PROVIDERS: Admitting Provider Nurse Practitioner Family; Emergency Provider Internal Medicine; PCP Internal Medicine; Visit Provider Radiology Diagnostic Radiology | DX: I48.91 Unspecified atrial fibrillation (principal) | CPT/HCPCS: 71045 ==

== ENCOUNTER 2025-01-29 02:24 | Outpatient (BNV) | payer MEDICARE, BC, SELFPAY | END 2025-01-31 07:00 | PROVIDERS: Admitting Provider Nurse Practitioner Family; Emergency Provider Internal Medicine; PCP Internal Medicine; Visit Provider Internal Medicine Cardiovascular Disease | DX: I34.0 Nonrheumatic mitral (valve) insufficiency (principal); I51.7 Cardiomegaly | CPT/HCPCS: 93306 ==

== ENCOUNTER → 2025-01-29 02:24 | Outpatient (BNV) | payer MEDICARE, BC, SELFPAY | PROVIDERS: Admitting Provider Nurse Practitioner Family; Emergency Provider Internal Medicine; PCP Internal Medicine; Visit Provider Nurse Practitioner Family | DX: I48.91 Unspecified atrial fibrillation (principal); R78.81 Bacteremia | CPT/HCPCS: 99233; 99239 ==

== ENCOUNTER → 2025-01-29 02:24 | Outpatient (BNV) | payer MEDICARE, BC, SELFPAY | PROVIDERS: Admitting Provider Nurse Practitioner Family; Emergency Provider Internal Medicine; PCP Internal Medicine; Visit Provider Internal Medicine | DX: R78.81 Bacteremia (principal); I50.20 Unspecified systolic (congestive) heart failure; I95.1 Orthostatic hypotension; G35 Multiple sclerosis; N30.01 Acute cystitis with hematuria | CPT/HCPCS: 99222 ==

== ENCOUNTER 2025-04-05 13:37 | Outpatient (AMB) | payer MEDICARE, BC, SELFPAY ==
--- NOTE | 2025-04-05 13:48 | MHC.OFFVIS ---
Vital Signs 04/05/25 13:51 Height 5 ft 6 in Weight 150 lb 5.684 oz BMI 24.3 BP 110/64 Blood Pressure Location Rt brachial Position Sitting Pulse 50 Pulse Source Monitor Intake Visit Reasons: D/c for rehab Intake Note: d/c from rehab Sports Team Manager Required: No Accompanied by: Self / Same As Patient Allergies codeine [Codeine] Adverse Reaction (Mild, Verified 01/28/25 19:11) vomiting Medication List - Last Reconciled 04/05/25 by Everett Yip NP amiodarone 200 mg PO DAILY apixaban (Eliquis) 5 mg PO BID atorvastatin 80 mg PO BEDTIME cholecalciferol (vitamin D3) (Vitamin D3) 25 mcg PO DAILY clopidogrel 75 mg PO DAILY cyanocobalamin (vitamin B-12) (Vitamin B-12) 1,000 mcg PO DAILY fluticasone propion-salmeterol 113-14 mcg/actuation 1 inh inhalation Q12H furosemide 40 mg (2 x 20 mg) PO DAILY levothyroxine (Synthroid) 50 mcg PO DAILY@0600 melatonin 10 mg PO BEDTIME metoprolol succinate ER 25 mg PO DAILY pantoprazole 40 mg PO DAILY@0630 paroxetine HCl 40 mg PO BEDTIME terazosin 1 mg PO BEDTIME 90 days HPI Comments Details: This is a 69-year-old female patient coming in for a follow-up visit. Patient with a history of HFpEF, paroxysmal AFib, hypertension, hyperlipidemia, COPD, PVD, CAD with stents in LCX and RCA, and an NSTEMI in the setting of hypertensive crisis. Given her recurrence of AFib, patient was previously referred out for an EP for a possible ablation. Patient is now status post ablation with Dr. Leslie on 03/08/2025. Patient states that she has been doing very well since the ablation and is able to breathe much better now. Patient is denying any exertional chest pain, shortness of breath, dizziness, palpitations, orthopnea, PND, leg edema, presyncope or syncope. Patient states that since she has been breathing better she has been trying to stay more active. At the rehab, there was questions about elevated heart rates/blood pressures at which time she was started on diltiazem but patient states that she never continued to take it. Patient is otherwise stating compliance with all her current medications. Patient is to follow up with Dr. Leslie's office in May for status post ablation. [facility] Medical History PAF (paroxysmal atrial fibrillation) Recurrent urinary tract infection Bilateral cataracts History of cardioversion Myocardial infarction Arthritis Hx of transfusion of packed red blood cells Thyroid disease GERD (gastroesophageal reflux disease) CKD (chronic kidney disease) On anticoagulant therapy Osteoarthritis of left hip Atrial fibrillation UTI (urinary tract infection) History of smoking 30 or more pack years Atrial fibrillation with rapid ventricular response Left renal artery stenosis Personal history of nicotine dependence Cardiomyopathy Essential hypertension Atherosclerotic cardiovascular disease Asymmetric blood pressures Acute on chronic systolic (congestive) heart failure CHF (congestive heart failure) CAD (coronary artery disease) Multiple sclerosis Pulmonary nodules COPD (chronic obstructive pulmonary disease) Peripheral arterial occlusive disease Surgical History History of total left hip replacement (03/30/24) Hip joint replacement status History of endoscopy History of colonoscopy History of heart artery stent (~2018) Status post angioplasty with stent (~09/2018) S/P insertion of iliac artery stent (~02/2019) S/P cardiac cath (~12/2020) History of cholecystectomy (~02/2009) Family History Father No problems noted. Mother No problems noted. Brother Diabetes Social History Household Members: None Housing: House Housing Other:: Sent in from [facility] Are you a primary director long term care to a significant other at home: No Do you presently have visiting nurse or other home services: No Alcohol intake: never Comment: aware of trip hazard Patient Tobacco Use Status: Former Tobacco user Tobacco use type: Cigarette Years Smoked: 50 e-Cigarette/Vaping Use: Never Used Second Hand Smoke Exposure: No Advance Directives Date on File: 04/20/24 service: No Current occupational status: retired Cognitive needs: Yes (cane) Hearing needs: No Vision needs: Yes (reading glasses) Review of Systems Const Denies chills, Denies fatigue, Denies fever(s), Denies frequent falls, Denies weakness, Denies weight gain and Denies weight loss ENT Denies dizziness Card Denies chest pain, Denies leg edema, Denies lightheadedness, Denies palpitations, Denies dyspnea and Denies dyspnea on exertion Resp Denies cough, Denies dyspnea and Denies dyspnea on exertion GI Denies hematochezia Musc Denies abnormal gait, Denies muscle weakness, Denies numbness, Denies radiating pain into limb and Denies tingling Neuro Denies abnormal gait, Denies dizziness, Denies frequent falls, Denies numbness, Denies tingling and Denies weakness Endo Denies fatigue and Denies palpitations Physical Exam Vital Signs: Last Vital Signs Pulse 50 04/05/25 13:51 BP 110/64 04/05/25 13:51 BMI result Body Mass Index 24.3 Const General: cooperative, healthy appearing, comfortable and no acute distress Orientation/consciousness: patient oriented x3 HEENT Head: Yes normal to inspection Neck Neck: Yes normal visual inspection, Yes trachea midline and Yes supple Chest Chest palpation & inspection: normal inspection of the chest Resp Effort & Inspection: normal respiratory effort Auscultation: clear to auscultation bilaterally, no crackles, no rales, no rhonchi and no wheezes Cardio Jugular venous distension: no JVD Palpation: normal PMI Rate: bradycardic Rhythm: regular rhythm Heart sounds: S1 normal heart sound present, S2 normal heart sound present, no click, no gallops, no murmurs and no rubs Peripheral pulses: Peripheral pulses 2+ throughout GI Inspection: Yes normal to inspection Palpation (GI): Soft to palpation Auscultation: normal bowel sounds Skin General skin exam: no rashes or lesions noted Neuro General: patient oriented x3 Extrem General: Yes normal to inspection, No no pedal edema and No calf tenderness Psych Appearance: grossly normal Mental Status: mental status grossly normal Speech and movement: Normal speech and movement present Office Procedures EKG Details: EKG today showed sinus bradycardia, rate 50 beats per minute, nonspecific intraventricular block, T-wave abnormality inferior lateral leads, nonspecific STT wave, normal SC, [place]. [id number]-[id number], Complete Assessment & Plan Assessment & Plan (1) PAF (paroxysmal atrial fibrillation): Code(s): I48.0 - Paroxysmal atrial fibrillation Category: Medical Plan: Given previous multiple cardioversions, we will refer patient out to EP for an ablation. Patient is now status post ablation with Dr. Leslie on 03/08/2025. EKG today showed sinus rhythm. Continue Eliquis for full anticoagulation therapy. Patient to continue amiodarone therapy until she visits Dr. Leslie's office for a status post occlusion follow up. Continue metoprolol for rate control therapy. Given her severely dilated left atrium, recurrences not eliminated, patient understands this. Patient understands to continue her Eliquis nonetheless. Patient reports feeling like a new person since the procedure. Continue therapy and monitoring on [place] mobile device at home. (2) CHF (congestive heart failure): Comment: She was treated for congestive heart failure/bilateral pleural effusions, in June of this year. She stays on diuretic therapy is doing fairly well at this time. Code(s): I50.9 - Heart failure, unspecified Category: Medical Plan: History of heart failure with preserved EF. 01/31/2025-echo showed mildly decreased LV systolic function with the ejection fraction between 40-45%, mildly increased LV wall thickness, akinetic basal inferior and mid inferior segments, severely dilated left atrium, mwjg-ay-wtspzogj mitral valve regurgitation, and elevated filling pressures. Clinically stable and euvolemic. Continue on current diuretic dose. Advised low-salt diet, daily weight monitoring, and fluid restriction at 1.5-2 L daily. (3) Cardiomyopathy: Code(s): I42.9 - Cardiomyopathy, unspecified Category: Medical Qualifiers: Cardiomyopathy type: other Qualified Code(s): I42.8 - Other cardiomyopathies Plan: As above. (4) S/P cardiac catheterization: Comment: Last cardiac catheterization 04/02/2023 showing mid LAD 30% stenosis, proximal circumflex stent patent, mid circumflex 80% stenosis and stent placed, RCA proximal stent patent, mid RCA 50% stenosis Code(s): Z98.890 - Other specified postprocedural states Category: Surgical Plan: Continue Plavix therapy. (5) CAD (coronary artery disease): Comment: (Hx 2 MIs 2018 & 2020 - Hx LCx & RCA stents 2019 - patent on recent 12/2020 cath) Code(s): I25.10 - Atherosclerotic heart disease of inupiat coronary artery without angina pectoris Category: Medical Plan: Continue high-dose statin therapy. Last LDL is 72. Ideally her goal should be less than 70. (6) Essential hypertension: Code(s): I10 - Essential (primary) hypertension Category: Medical Plan: Blood pressure today is well-controlled. Continue current regimen. Advised monitoring blood pressures with a goal of less than 130/80. Recommended heart healthy diet, regular exercise, med compliance, stress medication strategies, and aggressive management of vascular risk factors. Patient follow-up in 6 months with a office visit in 3 months with an EKG. In the interim, patient will call the office with any concerns or change in symptoms. This note was generated using voice recognition software. While every effort has been made to ensure accuracy and proper managed services sales consultant, there may be occasional errors that could affect the content or meaning of the described symptoms. Orders: Orders AMB EKG-In Office Today I48.0 - Paroxysmal atrial fibrillation Coding Level of Care Code Est Pt Level 4 (41826) Complex EM visit Add On G2211 Diagnoses PAF (paroxysmal atrial fibrillation) I48.0 CHF (congestive heart failure) I50.9 Other cardiomyopathy I42.8 Cardiomyopathy type: other S/P cardiac catheterization Z98.890 CAD (coronary artery disease) I25.10 Essential hypertension I10 CPT Codes EKG - CPT: 86571-Qflkagrjiagfqikui, Complete ([id number]) Time Spent (min) 32 Comment Time spent in reviewing the chart, test results, assessment, counseling and documentation.
[2025-04-05 13:51] VITALS: BP 110/64; PULSE 50; BMI 24.3
--- OUTSIDE RECORDS SUMMARY | 2025-04-05 16:07 | XMS_ITS | Clinical Summary ---
Author Organization [facility] Facility Address [address] [address] Care Team Providers Care Power Sweeper Operator Name Role Phone Rod Wakefield MD Primary [...] Comments Breast Cancer Screening 1955 Pneumococcal Vaccine: 50+ Ye ars (1 of 2 - PCV) 1972 Colorectal Cancer Screening: Annual FOBT 2002 Colorectal Cancer Screening: Colonoscopy 2002 Colorectal Cancer Screening: Sigmoidoscopy 2002 Influenza Vaccine (Season Ended) 2025 Hepatitis B Vaccine Aged Out No longe r eligible based on patient's age to complete this topic Insurance Medicare [facility] Medicare [facility] Care Teams Power Sweeper Operator Relationship Specialty Start Date End Date Rod Wakefield MD [address] [place] [address] PCP - General Internal Medicine 05/28/21
== END 2025-04-05 14:30 | disposition home or self-care (01) ==
LOC: HO.HCS 13:38
PROVIDERS: PCP Internal Medicine
DX: I48.0 Paroxysmal atrial fibrillation (principal); I50.9 Heart failure, unspecified; I42.8 Other cardiomyopathies; Z98.890 Other specified postprocedural states; I25.10 Atherosclerotic heart disease of native coronary artery without angina pectoris; I10 Essential (primary) hypertension
CPT/HCPCS: 93010; 99214; G2211

== ENCOUNTER → 2025-04-05 13:37 | Outpatient (BNVA) | payer MEDICARE, BC, SELFPAY | PROVIDERS: PCP Internal Medicine | DX: I48.0 Paroxysmal atrial fibrillation (principal); I11.0 Hypertensive heart disease with heart failure; I50.9 Heart failure, unspecified; I42.8 Other cardiomyopathies; I25.10 Atherosclerotic heart disease of native coronary artery without angina pectoris; Z98.890 Other specified postprocedural states | CPT/HCPCS: 93005; 99212 ==

== ENCOUNTER 2025-06-29 15:06 | Outpatient (REF) | payer MEDICARE, BC, SELFPAY ==
[2025-06-29 15:25] LABS: MANUAL DIFF FLAG NO
[2025-06-29 15:31] LABS: Hematocrit 37.0 % (37.0-47.0); Hemoglobin 11.3 g/dl (12.0-16.0); Imm Gran Abs Auto 0.02 X10*3/uL (0.00-0.03); Imm Gran Pct Auto 0.3 % (0.0-0.4); Lymphocytes Absolute Auto 1.4 X10*3/uL (1.2-4.9); Mean Corpuscular HGB Conc 30.5 g/dl (31.0-35.0); Mean Corpuscular Hemoglobin 24.6 pg (27.0-33.0); Mean Corpuscular Volume 80.4 fL (80.0-98.0); NRBC Abs Auto 0.000 X10*3/uL (0.0-0.012); NRBC Pct Auto 0.0 /100WBC (0.0-0.2); Platelet Count 280 X10*3/uL (160-400); Red Blood Count 4.60 X10*6/uL (4.20-5.50); White Blood Count 6.8 X10*3/uL (4.8-10.8)
[2025-06-29 16:09] LABS: Alanine Aminotransferase 19 U/L (0-31); Albumin Level 3.9 g/dL (3.5-5.0); Alkaline Phosphatase 139 U/L (39-117); Anion Gap 13 (12-20); Aspartate Amino Transferase 19 U/L (5-31); Blood Urea Nitrogen 33 mg/dL (9-16); Calcium 9.7 mg/dL (8.4-10.2); Carbon Dioxide 29 mmol/L (22-29); Chloride 107 mmol/L (96-108); Estimated Glomerular Filt Rate 21; Potassium 5.1 mmol/L (3.3-5.1); Sodium 144 mmol/L (135-145); Total Protein 7.1 g/dL (6.5-8.0)
[2025-06-29 16:36] LABS: Vitamin B12 > 2000 pg/mL (200-900)
[2025-06-29 17:12] LABS: Free T4 (Free Thyroxine) 1.24 ng/dL (0.71-1.85)
--- OUTSIDE RECORDS SUMMARY | 2025-06-29 17:14 | XMS_ITS ---
Author Organization [facility] Care Team Providers Care Support Services Coordinator Name Role Phone Elder, Rizwan Unavailable Unavailable Dinlaureen, Sheyla Unavailable Unavailable Allergies and adverse reactions Code CodeSystem Substance Reaction Severity StartDate Concern Status 2670 RXNORM Codeine Unknown 06/13/2023 active Care Team Name Role Address Phone Organization Dates ShaylaBindunini Vera PCP [address], [address], [place] (Office): [phone] (Fax): [phone] [facility] 06/13/2023 - 07/03/2023 Sheyla Dinis [address], [address], [place] (Office): [facility] 06/13/2023 - 07/03/2023 Mental Status Section Date Assessment Total Score Description 07/03/2023 CAM 0 No delirium ind icated 06/18/2023 BIMS 15 cognitively int act CAM 0 No delirium ind icated PHQ-9 06 mild depression Problems Problem # Description Date of onset Resolved Date Code CodeSystem Concern Status 1 ACUTE KIDNEY FAILURE, UNSPECIFIED 06/13/[address] active 2 ACUTE POSTHEMORRHAGIC ANEMIA 06/13/[address] active 3 ATHEROSCLEROSIS OF RENAL ARTERY 06/13/[address] active 4 ATHEROSCLEROTIC HEART DISEASE OF [place] CORONARY ARTERY WITHOUT ANGINA PECTORIS 06/13/[address] active 5 BACTEREMIA 06/13/[address] active 6 [address]ARDIOMYOPATHY, UNSPECIFIED 06/13/[address] active 7 CHRONIC KIDNEY DISEASE, STAGE 3 UNSPECIFIED 06/13/[address] active 8 CHRONIC OBSTRUCTIVE PULMONARY DISEASE, UNSPECIFIED 06/13/[address] active 9 CHRONIC SYSTOLIC (CONGESTIVE) HEART FAILURE 06/13/[address] active 10 DEFICIENCY OF OTHER SPECIFIED B GROUP VITAMINS 06/13/[address] active 11 ESSENTIAL (PRIMARY) HYPERTENSION 06/13/[address] active 12 GASTRO-ESOPHAGEAL REFLUX DISEASE WITHOUT ESOPHAGITIS 06/13/[address] active 13 HYPERLIPIDEMIA, UNSPECIFIED 06/13/[address] active 14 HYPOTHYROIDISM, UNSPECIFIED 06/13/[address] active 15 INSOMNIA, UNSPECIFIED 06/13/[address] active 16 MAJOR DEPRESSIVE DISORDER, SINGLE EPISODE, UNSPECIFIED 06/13/[address] active 17 MULTIPLE SCLEROSIS 06/13/[address] active 18 PAROXYSMAL ATRIAL FIBRILLATION 06/13/[address] active 19 RETENTION OF URINE, UNSPECIFIED 06/13/[address] active 20 SOLITARY PULMONARY NODULE 06/13/[address] active 21 UNSPECIFIED ATRIAL FIBRILLATION 06/13/[address] active 22 UNSPECIFIED FALL, SUBSEQUENT ENCOUNTER 06/13/[address] active 23 UNSPECIFIED FRACTURE OF LOWER END OF UNSPECIFIED ULNA, SUBSEQUENT ENCOUNTER FOR CLOSED FRACTURE WITH ROUTINE HEALING 06/13/[address] active 24 UNSPECIFIED HYDRONEPHROSIS 06/13/[address] active 25 VITAMIN D DEFICIENCY, UNSPECIFIED 06/13/[address] active Reason for Referral No Reasons for Referral Entered Social History Social History Observation Description Start Date End Date Code Code System Current Smoking Status Tobacco smoking consumption unknown 054199997 SNOMED CT Sex Assigned At Female 1955 78515-6 [facility] Gender Identity Vital Signs Code Code System Vitals Name Values and Units Timing Information 9279-1 [facility] Respiratory Rate Value=18.0 Units=/m in 07/03/2023 8462-4 [facility] Blood Pressure-Diastolic Value=87 Un its=mmHg 07/03/2023 8480-6 [facility] Blood Pressure-Systolic Lwzai=931 Un its=mmHg 07/03/2023 8310-5 [facility] Body Temperature Value=96.8 Units= F 07/03/2023 8867-4 [facility] Heart rate Value=58.0 Units=/min 04/2023 01230-4 [facility] O2 % BldC Oximetry Value=93.0 Units= % 07/03/2023 80709-7 [facility] Pain Level Value=0.0 07/03/2023 56043-0 [facility] Weight Eghes=840.4 Units=Lbs 8302-2 [facility] Height Value=63.0 Units=Inches 06/13/2023
--- OUTSIDE RECORDS SUMMARY | 2025-06-29 17:14 | XMS_ITS | Clinical Summary ---
Author Organization [address] [facility] Address [address] [place] [address] Phone Care Team Providers Care Release Engineer Name Role Phone Ashleigh Moreland MD Primary Care Provider [phone] Social History Tobacco Use Types Packs/Day Years [...] - Risk 60-74 years 1-dose series) 2013 Cholesterol Screening (Lipid Panel) 09/06/2024 Colorectal Cancer Screening: Colonoscopy 09/06/2024 Falls Risk Assessment 09/06/2024 Lung Cancer Screening (Low Dose CT) 09/06/2024 Medicare Annual Wellness Visit 09/06/2024 Osteoporosis Screening (Bone Density Screening) 09/06/2024 Social Influencers of Health Screening 09/06/2024 Depression Screening 10/27/2024 COVID-19 Vaccine ( season) 2025 01/08/2021, 12/16/2020 Influenza Vaccine (#1) 2025 Hypertension/CHF/CAD Annual BMP Blood Test 02/03/2026 02/03/2025, 09/04/2024, 08/30/2024, Additional history exists Hepatitis C Screening Completed [...] age to complete this topic Meningococcal B Vaccine Aged Out No l onger eligible based on patient's age to complete this topic RSV Immunization Patients Under 20 months Aged Out No longer eligible based on patient's age to complete this topic Varicella Vaccines Aged Out No longer eligible based on patient's age to complete this topic Procedures Procedure Name Priority Date/Time Associated Diagnosis Comments COMPREHENSIVE METABOLIC PANEL Routine 02/03/2025 6:28 AM EDT Essential (primary) hypertension Urinary tract infection, site not specified Chronic kidney disease, unspecified Heart failure, unspecified ([facility] V24, [facility] V28) from Last 3 Months or Most Recently Relevant to Health Maintenance Results * (ABNORMAL) Comprehensive metabolic panel (02/03/2025 6:28 AM EDT) Sodium 138 133 - 145 mmol/L LAB CHEMISTRY METHOD 02/03/2025 11:51 AM [facility] Potassium 3.9 3.5 - 5.5 mmol/L LAB CHEMISTRY METHOD 02/03/2025 11:51 AM [facility] Chloride 99 96 - 110 mmol/L LAB CHEMISTRY METHOD 02/03/2025 11:51 AM [facility] CO2 31 21 - 32 mmol/L LAB CHEMISTRY METHOD 02/03/2025 11:51 AM [facility] Anion Gap 8 3 - 11 LAB CHEMISTRY METHOD 02/03/2025 11:51 AM [facility] Glucose 78 70 - 100 mg/dL LAB CHEMISTRY METHOD 02/03/2025 11:51 AM [facility] BUN 21 5 - 25 mg/dL LAB CHEMISTRY METHOD 02/03/2025 11:51 AM [facility] Creatinine 2.22(H) 0.50 - 1.10 mg/dL LAB CHEMISTRY METHOD 02/03/2025 11:51 AM [facility] eGFR 23(L) >=60 mL/min/1. 73m2 LAB CHEMISTRY METHOD 02/03/2025 11:51 AM [facility] Comment:Calculation based on the Chronic Kidney Disease Epidemiology Collaboration (CKD-EPI) equation refit without adjustment for race. BUN/Creatinine Ratio 9.5 LAB CHEMISTRY METHOD 02/03/2025 11:51 AM [facility] Calcium 8.6 8.5 - 10.5 mg/dL LAB CHEMISTRY METHOD 02/03/2025 11:51 AM [facility] AST (SGOT) 14 10 - 42 unit/L LAB CHEMISTRY METHOD 02/03/2025 11:51 AM [facility] ALT (SGPT) 18 10 - 60 unit/L LAB CHEMISTRY METHOD 02/03/2025 11:51 AM [facility] Alkaline Phosphatase 120 42 - 121 unit/L LAB CHEMISTRY METHOD 02/03/2025 11:51 AM [facility] Total Protein 6.1 6.0 - 8.0 g/dL LAB CHEMISTRY METHOD 02/03/2025 11:51 AM [facility] Albumin 2.3(L) 3.2 - 5.0 g/dL LAB CHEMISTRY METHOD 02/03/2025 11:51 AM [facility] Total Bilirubin 0.4 0.0 - 1.4 mg/dL LAB CHEMISTRY METHOD 02/03/2025 11:51 AM [facility] Blood Venous blood specimen / Unknown Venipuncture / Unknown 02/03/2025 6:28 AM EDT 02/03/2025 10:35 AM EDT us Ashleigh Moreland MD LAB BLOOD ORDERABLES Final Resul t [facility] [address] [place] [address], from Last 3 Months or Most Recently Relevant to Health Maintenance Insurance MEDICARE Care Teams Release Engineer Relationship Specialty Start Date End Date Ashleigh Moreland MD [address] [place] [address] PCP - General Hospitalist Medicine 02/03/25
--- OUTSIDE RECORDS SUMMARY | 2025-06-29 17:14 | XMS_ITS | Clinical Summary ---
Author Organization [facility] Address [address] [place] [address] Care Team Providers Care Wound Care Technician Name Role Phone No, Referring Primary Care [...] to 7.9/25.9 in the ED. Baseline per [place] lab Hgb ~8.5-10. No concern of GI [...] to 7.9/25.9 in the ED. Baseline per [place] lab Hgb ~8.5-10. No concern of GI bleed. - Eliquis per afib section - Start IV iron once stable from infection perspective Assessment & Plan (08/18/2024 3:41 PM EDT): Microcytic anemia. Home med: Iron sulfate 325 mg daily. Presented with H/H 9.3 and 32.5, down trending to 7.9/25.9 in the ED. Baseline per [place] lab Hgb ~8.5-10. No concern of GI bleed. - Eliquis per afib section - Start IV iron once stable from infection perspective Assessment & Plan (08/17/2024 2:57 PM EDT): Microcytic anemia. Home med: Iron sulfate 325 mg daily. Presented with H/H 9.3 and 32.5, down trending to 7.9/25.9 in the ED. Baseline per [place] lab Hgb ~8.5-10. No concern of GI bleed. - Eliquis per afib section - Start IV iron once stable from infection perspective Assessment & Plan (08/16/2024 1:21 PM EDT): Microcytic anemia. Home med: Iron sulfate 325 mg daily. Presented with H/H 9.3 and 32.5, down trending to 7.9/25.9 in the ED. Baseline per [place] lab Hgb ~8.5-10. No concern of GI bleed. - Restart home eliquis at lower dose - Start IV iron once stable from infection perspective Assessment & Plan (08/15/2024 2:33 PM EDT): Microcytic anemia. Home med: Iron sulfate 325 mg daily. Presented with H/H 9.3 and 32.5, down trending to 7.9/25.9 in the ED. Baseline per [place] lab Hgb ~8.5-10. No concern of GI bleed. - Holding home eliquis - Will begin IV iron once stable from infection perspective Assessment & Plan (08/15/2024 12:34 PM EDT): Microcytic anemia. Home med: Iron sulfate 325 mg daily. Presented with H/H 9.3 and 32.5, down trending to 7.9/25.9 in the ED. Baseline per [place] lab Hgb ~8.5-10. No concern of GI bleed. - Holding home eliquis - Will begin IV iron once stable from infection perspective Assessment & Plan (08/14/2024 8:36 PM EDT): Microcytic anemia. Home med: Iron sulfate 325 mg daily. Presented with H/H 9.3 and 32.5, down trending to 7.9/25.9 in the ED. Baseline per [place] lab Hgb ~8.5-10. No concern of GI [...] to 7.9/25.9 in the ED. Baseline per [place] lab Hgb ~8.5-10. No concern of GI [...] to 7.9/25.9 in the ED. Baseline per [place] lab Hgb ~8.5-10. No concern of GI [...] to 7.9/25.9 in the ED. Baseline per [place] lab Hgb ~8.5-10. No concern of GI bleed. - Holding home eliquis - IV iron started per HF section Assessment & Plan (08/10/2024 6:12 PM EDT): Microcytic anemia. Home med: Iron sulfate 325 mg daily. Presented with H/H 9.3 and 32.5, down trending to 7.9/25.9 in the ED. Baseline per [place] lab Hgb ~8.5-10. No concern of GI bleed. - Holding home anticoagulation Assessment & Plan (08/09/2024 5:57 PM EDT): Patient presented with nose bleeds. Found to be anemic with an H/H 9.3 and 32.5, down trending to 7.9/25.9 in the ED. Baseline per [place] [facility] hgb ~8.5-10. No concern of GI [...] Lopressor 50 mg BID, Follows Cardiology at [place]. Called [facility] pharmacy in [place] who reported that she didn't refill her [...] Lopressor 50 mg BID, Follows Cardiology at [place]. Called [facility] pharmacy in [place] who reported that she didn't refill her [...] Lopressor 50 mg BID, Follows Cardiology at [place]. Called [facility] pharmacy in [place] who reported that she didn't refill her [...] Lopressor 50 mg BID, Follows Cardiology at [place]. Called [facility] pharmacy in [place] who reported that she didn't refill her [...] Lopressor 50 mg BID, Follows Cardiology at [place]. Called [facility] pharmacy in [place] who reported that she didn't refill her [...] Lopressor 50 mg BID, Follows Cardiology at [place]. Called [facility] pharmacy in [place] who reported that she didn't refill her [...] Lopressor 50 mg BID, Follows Cardiology at [place]. Called [facility] pharmacy in [place] who reported that she didn't refill her [...] Lopressor 50 mg BID, Follows Cardiology at [place]. Called [facility] pharmacy in [place] who reported that she didn't refill her Eliquis in March 2024. Patient noted to be irregular, irregular on exam. - Hold home Eliquis and Amio due to acute liver failure. - Lopressor 50 mg BID Assessment & Plan (2024 2:30 PM EDT): Home med: Eliquis 2.5 mg BID, Amio 200 mg daily, Follows Cardiology at [place]. Called [facility] pharmacy in [place] who reported that she didn't refill her Eliquis in March 2024. Patient noted to be irregular, irregular on exam. - Hold home Eliquis - Lopressor 50 mg BID Assessment & Plan (08/12/2024 7:50 PM EDT): Home med: Eliquis 2.5 mg BID, Amio 200 mg daily, Follows Cardiology at [place]. Called [facility] pharmacy in [place] who reported that she didn't refill her Eliquis in March 2024. Patient noted to be irregular, irregular on exam. - Hold home Eliquis - Lopressor 50 mg BID Assessment & Plan (08/11/2024 6:29 PM EDT): Home med: Eliquis 2.5 mg BID, Amio 200 mg daily, Follows Cardiology at [place]. Called [facility] pharmacy in [place] who reported that she didn't refill her Eliquis in March 2024. Patient noted to be irregular, irregular on exam. - Hold home Eliquis - Lopressor 50 mg BID Assessment & Plan (08/10/2024 6:12 PM EDT): Home med: Eliquis 2.5 mg BID, Amio 200 mg daily, Follows Cardiology at [place]. Called [facility] pharmacy in [place] who reported that she didn't refill her Eliquis in March 2024. Patient noted to be irregular, irregular on exam. - Hold home Eliquis - Lopressor 25 mg BID Assessment & Plan (08/09/2024 5:57 PM EDT): History of afib, reportedly on Eliquis. Follows Cardiology at [place]. Called [facility] pharmacy in [place] who reported that she didn't refill her [...] dribbles out. She follows with urology at [place]. She has required straight caths before, and [...] dribbles out. She follows with urology at [place]. She has required straight caths before, and [...] dribbles out. She follows with urology at [place]. She has required straight caths before, and [...] dribbles out. She follows with urology at [place]. She has required straight caths before, and [...] Furosemide 20 mg PO every day Follows mri technologist at [place] (Dr. 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 By report, Echocardiogram was [...] possible cardiogenic shock component to presentation of SUASN and shock liver, as patient has been [...] Furosemide 20 mg PO every day Follows mri technologist at [place] (Dr. 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 By report, Echocardiogram was [...] Furosemide 20 mg PO every day Follows mri technologist at [place] (Dr. 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 By report, Echocardiogram was [...] Furosemide 20 mg PO every day Follows mri technologist at [place] (Dr. 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 By report, Echocardiogram was [...] Furosemide 20 mg PO every day Follows mri technologist at [place] (Dr. 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 By report, Echocardiogram was [...] Furosemide 20 mg PO every day Follows mri technologist at [place] (Dr. 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 By report, Echocardiogram was [...] Furosemide 20 mg PO every day Follows mri technologist at [place] (Dr. 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 By report, Echocardiogram was [...] Furosemide 20 mg PO every day Follows mri technologist at [place] (Dr. Tera Lizama) Patient with a history of HFrEF, unknown last EF, presenting for several days of worsening orthopnea. New oxygen requirement on 2L NC, CXR showed pulmonary edema but clinically doesn't appear volume overload. Pro-BNP 64,308. Unable to obtain prior TTE result from [place]. Trop elevated to 34, likely demand ischemia [...] 08/11/2024 progress note for cardiology notes from [place]. - Hold home lasix dose - Lopressor [...] Furosemide 20 mg PO every day Follows mri technologist at [place] (Dr. Tera Lizama) Patient with a history of HFrEF, unknown last EF, presenting for several days of worsening orthopnea. New oxygen requirement on 2L NC, CXR showed pulmonary edema but clinically doesn't appear volume overload. Pro-BNP 64,308. Unable to obtain prior TTE result from [place]. Trop elevated to 34, likely demand ischemia [...] 08/11/2024 progress note for cardiology notes from [place]. - Hold home lasix dose - Continue [...] Furosemide 20 mg PO every day Follows mri technologist at [place] (Dr. Tera Lizama) Patient with a history of HFrEF, unknown last EF, presenting for several days of worsening orthopnea. New oxygen requirement on 2L NC, CXR showed pulmonary edema but clinically doesn't appear volume overload. Pro-BNP 64,308. Unable to obtain prior TTE result from [place]. Trop elevated to 34, likely demand ischemia [...] 08/11/2024 progress note for cardiology notes from [place]. - Hold home lasix - Continue Lopressor [...] Furosemide 20 mg PO every day Follows mri technologist at [place] (Dr. Tera Lizama) Patient with a history of HFrEF, unknown last EF, presenting for several days of worsening orthopnea. New oxygen requirement on 2L NC, CXR showed pulmonary edema but clinically doesn't appear volume overload. Pro-BNP 64,308. Unable to obtain prior TTE result from [place]. Trop elevated to 34, likely demand ischemia [...] for further details for cardiology notes from [place]. - Hold home lasix - Increase Lopressor [...] Furosemide 20 mg PO every day Follows mri technologist at [place]. Patient with a history of HFrEF, unknown last EF, presenting for several days of worsening orthopnea. New oxygen requirement on 2L NC, CXR showed pulmonary edema but clinically doesn't appear volume overload. Pro-BNP 64,308. Unable to obtain prior TTE result from [place]. Trop elevated to 34, likely demand ischemia [...] Unable to obtain prior TTE result from [place]. Trop elevated to 34, likely demand ischemia [...] on admission. Per request from lab at [place], patient's most recent creatinines are elevated to 2.54-2.96. Patient has a history of CKD and was previously following with Dr. Garber at [facility], however, last appointment available in [facility] is from 04/24/2023. Renal following. [...] on admission. Per request from lab at [place], patient's most recent creatinines are elevated to 2.54-2.96. Patient has a history of CKD and was previously following with Dr. Garber at [facility], however, last appointment available in [facility] is from 04/24/2023. Renal following. Likely ATN in setting of shock on presentation. Improving. Nephro consulted, appreciate recs: - Daily BMP - Ordered CPK to rule out rhabdo - 1.5L fluid restriction Assessment & Plan (08/18/2024 3:41 PM EDT): Cr elevated to 3.38 with an eGFR of 14 on admission. Per request from lab at [place], patient's most recent creatinines are elevated to 2.54-2.96. Patient has a history of CKD and was previously following with Dr. Garber at [facility], however, last appointment available in [facility] is from 04/24/2023. Renal following. Likely ATN in setting of shock on presentation. Improving. Nephro consulted, appreciate recs: - Daily BMP - Ordered CPK to rule out rhabdo - 1.5L fluid restriction Assessment & Plan (08/17/2024 2:57 PM EDT): Cr elevated to 3.38 with an eGFR of 14 on admission. Per request from lab at [place], patient's most recent creatinines are elevated to 2.54-2.96. Patient has a history of CKD and was previously following with Dr. Garber at [facility], however, last appointment available in [facility] is from 04/24/2023. Renal following. Likely ATN in setting of shock on presentation. Improving. Nephro consulted, appreciate recs: - Daily BMP - Ordered CPK to rule out rhabdo - 1.5L fluid restriction Assessment & Plan (08/16/2024 1:31 PM EDT): Cr elevated to 3.38 with an eGFR of 14 on admission. Per request from lab at [place], patient's most recent creatinines are elevated to 2.54-2.96. Patient has a history of CKD and was previously following with Dr. Garber at [facility], however, last appointment available in [facility] is from 04/24/2023. Renal following. Likely ATN in setting of shock on presentation. Improving. Nephro consulted, appreciate recs: - Daily BMP - Ordered CPK to rule out rhabdo - 1.5L fluid restriction Assessment & Plan (08/15/2024 2:33 PM EDT): Cr elevated to 3.38 with an eGFR of 14 on admission. Per request from lab at [place], patient's most recent creatinines are elevated to 2.54-2.96. Patient has a history of CKD and was previously following with Dr. Garber at [facility], however, last appointment available in [facility] is from 04/24/2023. Renal following. Likely ATN in setting of shock on presentation. Improving. - Daily BMP Assessment & Plan (08/15/2024 12:34 PM EDT): Cr elevated to 3.38 with an eGFR of 14 on admission. Per request from lab at [place], patient's most recent creatinines are elevated to 2.54-2.96. Patient has a history of CKD and was previously following with Dr. Garber at [facility], however, last appointment available in [facility] is from 04/24/2023. Renal following. Likely ATN in setting of shock on presentation. Improving. - Daily BMP Assessment & Plan (08/14/2024 8:36 PM EDT): Cr elevated to 3.38 with an eGFR of 14 on admission. Per request from lab at [place], patient's most recent creatinines are elevated to 2.54-2.96. Patient has a history of CKD and was previously following with Dr. Garber at [facility], however, last appointment available in [facility] is from 04/24/2023. Renal following. Likely ATN in setting of shock on presentation Assessment & Plan (2024 2:30 PM EDT): Cr elevated to 3.38 with an eGFR of 14 on admission. Per request from lab at [place], patient's most recent creatinines are elevated to 2.54-2.96. Patient has a history of CKD and was previously following with Dr. Garber at [facility], however, last appointment available in [facility] is from 04/24/2023. Renal following. [...] on admission. Per request from lab at [place], patient's most recent creatinines are elevated to 2.54-2.96. Patient has a history of CKD and was previously following with Dr. Garber at [facility], however, last appointment available in [facility] is from 04/24/2023. Renal following. [...] on admission. Per request from lab at [place], patient's most recent creatinines are elevated to 2.54-2.96. Patient has a history of CKD and was previously following with Dr. Garber at [facility], however, last appointment available in [facility] is from 04/24/2023. Renal following. [...] on admission. Per request from lab at [place], patient's most recent creatinines are elevated to 2.54-2.96. Patient has a history of CKD and was previously following with Dr. Garber at [facility], however, last appointment available in [facility] is from 04/24/2023. Renal following. - Patient will require close monitoring as well especially in the setting of hypothermia and septic shock on admission causing ischemic liver injury and worsening SUSAN. - Strict I/O Assessment & Plan (08/09/2024 5:57 PM EDT): Cr elevated to 3.38 with an eGFR of 14 on admission. Per request from lab at [place], patient's most recent creatinines are elevated to 2.54-2.96. Patient has a history of CKD and was previously following with Dr. Garber at [facility], however, last appointment available in [facility] is from 04/24/2023. - Nephro [...] Date Smoking Tobacco: Never Assessed [facility] Utilities Answer Date Recorded In the past 12 months has [employer], oil, or water [employer] threatened to shut off services in your [...] 89 08/20/2024 1:50 PM EDT Temperature 36.8 C (98.2 F) 08/20/2024 1:50 PM EDT Respiratory Rate 16 08/20/2024 1:50 PM EDT [...] 1-dose series) 2013 Urine Microalbumin 04/03/2024 04/03/2023 Alcohol/Substance Use Screening 10/27/2024 Depression Screening and Follow-Up 10/27/2024 Fall Risk Screening 10/27/2024 Health Care Proxy Review 10/27/2024 Social Drivers of Health Annual Screening 10/27/2024 Basic Metabolic Panel 12/21/2024 08/20/2024 , 08/19/2024, 08/18/2024, Additional history exists COVID-19 Vaccine (2024- season) 2025 07/15/2022, 09/01/2021, 01/08/2021, Additional history exists Influenza Vaccine (#1) 2025 PTH 08/12/2025 08/12/2024 Phosphorus 08/12/2025 08/12/2024, 08/09/2024 Hemoglobin 08/20/2025 08/20/2024, 07/28, 08/18/2024, Additional history exists Hepatitis C Screening Completed 08/09/2024 Statin Therapy Completed 08/11/2024 Hepatitis B Vaccines Aged Out No long er eligible based on patient's age to complete this topic Procedures * Due to [facility] law, this organization might not [...] to Health Maintenance Results * Due to [employer] law, this organization might not be sharing negative HIV tests. * (ABNORMAL) CBC Auto Differential (08/20/2024 6:44 AM EDT) WBC 6.2 3.8 - 10.8 10*3/uL 08/20/2024 7:40 AM EDT [email or web address] RBC 3.24(L) 3.80 - 5.10 10*6/uL 08/20/2024 7:40 AM EDT [facility] Hemoglobin 7.7(L) 11.7 - 15.5 g/dL 08/20/2024 7:40 AM EDT [email or web address] Hematocrit 26.1(L) 35.0 - 45.0 % 08/20/2024 7:40 AM EDT [email or web address] MCV 80.6 80.0 - 100.0 fL 08/20/2024 7:40 AM EDT [email or web address] MCH 23.8(L) 27.0 - 33.0 pg 08/20/2024 7:40 AM EDT [email or web address] MCHC 29.5(L) 32.0 - 36.0 g/dL 08/20/2024 7:40 AM EDT [email or web address] RDW 16.9(H) 11.0 - 15.0 % 08/20/2024 7:40 AM EDT [email or web address] Platelets 196 140 - 400 10*3/uL 08/20/2024 7:40 AM EDT [email or web address] MPV 10.9 7.5 - 12.5 fL 08/20/2024 7:40 AM EDT [email or web address] Neutrophil % 65.4 % 08/20/2024 7:40 AM EDT [email or web address] Immature Grans % 0.5 0.0 - 0.9 % 08/20/2024 7:40 AM EDT [email or web address] Lymphocyte % 20.8 % 08/20/2024 7:40 AM EDT [email or web address] Monocyte % 10.2 % 08/20/2024 7:40 AM EDT [email or web address] Eosinophil % 2.4 % 08/20/2024 7:40 AM EDT [email or web address] Basophil % 0.7 % 08/20/2024 7:40 AM EDT [email or web address] Neutrophil # 4.02 1.50 - 7.80 10*3/uL 08/20/2024 7:40 AM EDT [email or web address] Immature Grans # 0.03 <=0.03 10*3/uL 08/20/2024 7:40 AM EDT [email or web address] Lymphocyte # 1.30 0.85 - 3.90 10*3/uL 08/20/2024 7:40 AM EDT [email or web address] Monocyte # 0.60 0.20 - 0.95 10*3/uL 08/20/2024 7:40 AM EDT [email or web address] Eosinophil # 0.20 0.02 - 0.50 10*3/uL 08/20/2024 7:40 AM EDT [email or web address] Basophil # <0.03 0.00 - 0.20 10*3/uL 08/20/2024 7:40 AM EDT [email or web address] nRBC % 0.0 /100 WBCs 08/20/2024 7:40 AM EDT [email or web address] nRBC # <0.01 <0.01 10*3/uL 08/20/2024 7:40 AM EDT [facility] Blood Structure of peripheral vein / Unknown Venipuncture / Unknown 08/20/2024 6:44 AM EDT 08/20/2024 7:26 AM EDT us Jared Bell MD PhD LAB BLOOD ORDERABLES Final Resu lt [facility] [address] [place] [address], * (ABNORMAL) Basic Metabolic Panel (08/20/2024 6:44 AM EDT) NA 144 135 - 145 mmol/L 08/20/2024 8:21 AM EDT [email or web address] K 4.7 3.5 - 5.3 mmol/L 08/20/2024 8:21 AM EDT [facility] Cl 111(H) 98 - 107 mmol/L 08/20/2024 8:21 AM EDT [facility] CO2 23 22 - 32 mmol/L 08/20/2024 8:21 AM EDT [email or web address] BUN 42(H) 7 - 23 mg/dL 08/20/2024 8:21 AM EDT [facility] Creatinine 2.36(H) 0.50 - 1.20 mg/dL 08/20/2024 8:21 AM EDT [facility] Glucose 86 65 - 99 mg/dL 08/20/2024 8:21 AM EDT [facility] Calcium 9.1 8.6 - 10.5 mg/dL 08/20/2024 8:21 AM EDT [facility] Anion Gap 10 5 - 15 08/20/2024 8:21 AM EDT [facility] eGFR 22(L) >=60 mL/min/1 .73m2 08/20/2024 8:21 AM EDT [email or web address] Comment:The estimated glomer ular [...] PhD LAB BLOOD ORDERABLES Final Resu lt [facility] [address] [place] [address], * (ABNORMAL) PTH, Intact and Calcium (08/12/2024 6:51 AM EDT) Parathyroid Hormone, Intact 203(H) 16 - 77 pg/mL 2024 4:01 AM EDT [employer] Comment: Interpretive Guide Intact PTH Calcium ------- Normal Parathyroid Normal Normal Hypoparathyroidism Low or Low Normal Low Hyperparathyroidism Primary Normal or High High Secondary High Normal or Low Tertiary High High Non-Parathyroid Hypercalcemia Low or Low Normal High Calcium 8.2(L) 8.6 - 10.4 mg/dL 2024 4:01 AM EDT [facility] Blood Structure of peripheral vein / Unknown Venipuncture / Unknown 08/12/2024 6:51 AM EDT 08/12/2024 7:38 AM EDT [facility] 2024 4:01 AM EDT [facility] Received Date: Brigitte Duke MD LAB BLOOD ORDERABLES Final Resul t Performing Organization Address City/[facility]/ZIP Co de Phone Number [facility] [address] [facility], [place] [address], [place] [phone] [employer] [facility] [address] [facility], [place] [address], [place] [phone] * Phosphorus (08/12/2024 6:51 AM EDT) Phosphorus 3.7 2.5 - 4.5 mg/dL 08/12/2024 9:17 AM EDT [facility] Blood Structure of peripheral vein / Unknown Venipuncture / Unknown 08/12/2024 6:51 AM EDT 08/12/2024 7:38 AM EDT Brigitte Duke MD LAB BLOOD ORDERABLES Final Resul t [facility] [address] [place] [address], [place] * Hepatitis Panel, Acute (08/09/2024 10:04 AM EDT) Hepatitis A IgM NON-REACT TRINH NON-REACT TRINH 08/09/2024 8:26 PM EDT [employer] Hepatitis B Surface Antigen NON-REACT TRINH NON-REACT TRINH 08/09/2024 8:26 PM EDT [employer] [facility] Hepatitis B Core Antibody NON-REACT TRINH NON-REACT TRINH 08/09/2024 8:26 PM EDT [employer] [facility] Hepatitis C Antibody NON-REACT TRINH NON-REACT TRINH 08/09/2024 8:26 PM EDT [employer] [facility] Comment: HCV antibody was non-reactive. There is no laboratory evidence of HCV infection. In most cases, no further action is required. However, if recent HCV exposure is suspected, a test for HCV RNA (test code 32903) is suggested. For additional information please refer to http://[employer].Alsbridge/faq/YHE56a8 (This link is being provided for informational/ educational purposes only.) For additional information, please refer to http://[employer]oo.Alsbridge/faq/HIZ886 (This link is being provided for informational/ educational purposes only.) Blood Structure of peripheral vein / Unknown Venipuncture / Unknown 08/09/2024 10:04 AM EDT 08/09/2024 10:12 AM EDT Narrative [facility] [facility] - 08/09/2024 8:26 PM EDT [facility] Received Date: April Ann MD LAB BLOOD ORDERABLES Final Resul t [facility] [place] [address] [facility] 3rd Floor, [place] [address], [place] [phone] [facility] [address] [facility] 3rd Floor, [place] [address], from Last 3 Months or Most Recently Relevant to Health Maintenance Insurance BCBS FEDERAL MEDICARE Advance Directives Documents on File Type Date Recorded Patient Hiv Cts Specialist Expl anation Health Care Proxy 08/11/2024 4:04 PM Aliya Vasquez 03-2 * Full Code (Latest Code Status on File) Date Activated Date Inactivated Comments 08/09/2024 8:23 AM 08/20/2024 5:20 PM Healthcare Agents on File Name Relationship Healthcare Agent Relationshi p Communication Aliya Vasquez Sister Health Care Agent Care Teams Wound Care Technician Relationship Specialty Start Date End Date No, Referring PCP - General 08/08/24
--- OUTSIDE RECORDS SUMMARY | 2025-06-29 17:14 | XMS_ITS | Encounter Summary ---
Author Organization [facility] Address [address] [place] [address] Care Team Providers Care Echocardiograph Tech Name Role Phone Ashleigh Moreland MD Primary Care Provider [phone] Encounter Details Date Type Department Care Team (Late st Contact Info) Description 08/28/[address] [facility] - Main Lab [address] [facility] [place] [address] Molly Servin MD [address] [place], [place] [id number] Shortness of breath Social History Tobacco Use [...] (ABNORMAL) Vitamin B12 (08/30/2024 7:38 AM EST) [facility] Signature Vitamin B-12 1,750(H) 250 - 900 pcg/mL LAB CHEMISTRY METHOD 08/30/2024 10:18 PM EST [facility] Blood Venous blood specimen / Unknown Venipuncture / Unknown 08/30/2024 7:38 AM EST 08/30/2024 9:32 AM EST us Molly Servin MD LAB BLOOD ORDERABLES Final Resul t [facility] [address] [place] [address], [place] [phone] * Travel phlebotomy fee (08/30/2024 7:38 AM EST) Pathologist [facility] CARE HOME TRAVEL PHLEBOTOMY FEE Completed 08/30/2024 10:01 AM [facility] Blood Venous blood specimen / Unknown Venipuncture / Unknown 08/30/2024 7:38 AM EST 08/30/2024 9:32 AM EST us Molly Servin MD LAB BLOOD ORDERABLES Final Resul t Performing Organization Address City/[facility]/ZIP Co de Phone Number [facility] [address] [place] [address], [place] [phone] * (ABNORMAL) Basic metabolic panel (08/30/2024 7:38 AM EST) [facility] Sodium 143 133 - 145 mmol/L [...] 11 LAB CHEMISTRY METHOD 08/30/2024 10:57 AM EST [facility] Glucose 76 70 - 100 [...] AM [facility] Comment:Calculation based on the Chronic Kidney Disease Epidemiology Collaboration (CKD-EPI) equation refit without adjustment for race. BUN/Creatinine Ratio 16.6 LAB CHEMISTRY METHOD 08/30/2024 10:57 AM [facility] Calcium 8.9 8.5 - 10.5 mg/dL LAB CHEMISTRY METHOD 08/30/2024 10:57 AM [facility] Blood Venous blood specimen / Unknown Venipuncture / Unknown 08/30/2024 7:38 AM EST 08/30/2024 9:32 AM EST us Molly Servin MD LAB BLOOD ORDERABLES Final Resul t [facility] [address] [place] [address], * (ABNORMAL) Complete blood count (08/30/2024 7:38 [...] 08/30/2024 10:49 AM [facility] NRBC Absolute 0.00 <0.10 K/mcL LAB HEMETOLOGY METHOD 08/30/2024 10:49 AM [facility] Blood Venous blood specimen / Unknown Venipuncture / Unknown 08/30/2024 7:38 AM EST 08/30/2024 9:32 AM EST us Molly Servin MD LAB BLOOD ORDERABLES Final Resul t [facility] [address] [place] [address], documented in this encounter Visit Diagnoses Diagnosis Shortness of breath documented in this encounter Care Teams Echocardiograph Tech Relationship Specialty Start Date End Date Ashleigh Moreland MD [address] [place] [phone] PCP - General Hospitalist Medicine 02/03/25 documented as of this encounter
--- OUTSIDE RECORDS SUMMARY | 2025-06-29 17:14 | XMS_ITS | Encounter Summary ---
Author Organization [facility] Address [address] [place] [address] Care Team Providers Care Statue Carver Name Role Phone Ashleigh Moreland MD Primary Care Provider [phone] Encounter Details Date Type Department Care Team (Late st Contact Info) Description 02/03/2025 Lab Requisition [facility] - Main Lab [address] [facility] [place] [address] Ashleigh Moreland MD [address] [place] [address] Essential (primary) hypertension; Urinary tract infection, site not specified; Chronic kidney disease, unspecified; Heart failure, unspecified (CMS/HCC V24, CMS/HCC V28) Social History Tobacco Use Types Packs/Day Years [...] Associated Diagnosis Comments COMPLETE BLOOD COUNT Routine 02/03/2025 6:28 AM EDT Essential (primary) hypertension Urinary tract infection, site not specified Chronic kidney disease, unspecified Heart failure, unspecified (CMS/HCC V24, CMS/HCC V28) THYROID STIMULATING HORMONE Routine 02/03/2025 6:28 AM EDT Essential (primary) hypertension Urinary tract infection, site not specified Chronic kidney disease, unspecified Heart failure, unspecified (CMS/HCC V24, CMS/HCC V28) COMPREHENSIVE METABOLIC PANEL Routine 02/03/2025 6:28 AM EDT Essential (primary) hypertension Urinary tract infection, site not specified Chronic kidney disease, unspecified Heart failure, unspecified ([facility] V24, [facility] V28) documented in this encounter Results * (ABNORMAL) Thyroid stimulating hormone (02/03/2025 6:28 AM EDT) TSH 8.84(H) 0.40 - 4.00 mcIU/mL LAB CHEMISTRY METHOD 02/03/2025 12:52 PM EDT [facility] Blood Venous blood specimen / Unknown Venipuncture / Unknown 02/03/2025 6:28 AM EDT 02/03/2025 10:35 AM EDT Ashleigh Moreland MD LAB BLOOD ORDERABLES Final Resul t [facility] [address] [place] [address], * (ABNORMAL) Comprehensive metabolic panel (02/03/2025 6:28 AM EDT) Pathologist [facility] Sodium 138 133 - 145 mmol/L LAB CHEMISTRY METHOD 02/03/2025 11:51 AM [facility] Potassium 3.9 3.5 - 5.5 mmol/L LAB CHEMISTRY METHOD 02/03/2025 11:51 AM [facility] Chloride 99 96 - 110 mmol/L LAB CHEMISTRY METHOD 02/03/2025 11:51 AM [facility] CO2 31 21 - 32 mmol/L LAB CHEMISTRY METHOD 02/03/2025 11:51 AM [facility] Anion Gap 8 3 - 11 LAB CHEMISTRY METHOD 02/03/2025 11:51 AM [facility] Glucose 78 70 - 100 mg/dL LAB CHEMISTRY METHOD 02/03/2025 11:51 AM [facility] BUN 21 5 - 25 mg/dL LAB CHEMISTRY METHOD 02/03/2025 11:51 AM [facility] Creatinine 2.22(H) 0.50 - 1.10 mg/dL LAB CHEMISTRY METHOD 02/03/2025 11:51 AM [facility] eGFR 23(L) >=60 mL/min/1. 73m2 LAB CHEMISTRY METHOD 02/03/2025 11:51 AM [facility] Comment:Calculation based on the Chronic Kidney Disease Epidemiology Collaboration (CKD-EPI) equation refit without adjustment for race. BUN/Creatinine Ratio 9.5 LAB CHEMISTRY METHOD 02/03/2025 11:51 AM [facility] Calcium 8.6 8.5 - 10.5 mg/dL LAB CHEMISTRY METHOD 02/03/2025 11:51 AM [facility] AST (SGOT) 14 10 - 42 unit/L LAB CHEMISTRY METHOD 02/03/2025 11:51 AM [facility] ALT (SGPT) 18 10 - 60 unit/L LAB CHEMISTRY METHOD 02/03/2025 11:51 AM [facility] Alkaline Phosphatase 120 42 - 121 unit/L LAB CHEMISTRY METHOD 02/03/2025 11:51 AM [facility] Total Protein 6.1 6.0 - 8.0 g/dL LAB CHEMISTRY METHOD 02/03/2025 11:51 AM [facility] Albumin 2.3(L) 3.2 - 5.0 g/dL LAB CHEMISTRY METHOD 02/03/2025 11:51 AM [facility] Total Bilirubin 0.4 0.0 - 1.4 mg/dL LAB CHEMISTRY METHOD 02/03/2025 11:51 AM [facility] Blood Venous blood specimen / Unknown Venipuncture / Unknown 02/03/2025 6:28 AM EDT 02/03/2025 10:35 AM EDT Ashleigh Moreland MD LAB BLOOD ORDERABLES Final Resul t [facility] [address] [place] [address], * (ABNORMAL) Complete blood count (02/03/2025 6:28 AM EDT) WBC 8.4 4.8 - 10.8 K/mcL LAB HEMETOLOGY METHOD 02/03/2025 11:34 AM EDT [facility] RBC 4.50 3.80 - 4.80 M/mcL LAB HEMETOLOGY METHOD 02/03/2025 11:34 AM EDT [facility] Hemoglobin 10.7(L) 11.5 - 16.0 g/dL LAB HEMETOLOGY METHOD 02/03/2025 11:34 AM [facility] Hematocrit 34.8(L) 35.0 - 47.0 % LAB HEMETOLOGY METHOD 02/03/2025 11:34 AM [facility] MCV 77.0(L) 79.0 - 98.0 FL LAB HEMETOLOGY METHOD 02/03/2025 11:34 AM T [facility] MCH 23.7(L) 27.0 - 32.0 pcg LAB HEMETOLOGY METHOD 02/03/2025 11:34 AM [facility] MCHC 30.7(L) 32.0 - 37.0 g/dL LAB HEMETOLOGY METHOD 02/03[facility]25 [facility] RDW 17.3(H) 11.0 - 15.0 % LAB HEMETOLOGY METHOD 02/03/2025 11:34 AM EDT [facility] Platelets 374 130 - 400 K/mcL LAB HEMETOLOGY METHOD 02/03/2025 11:34 AM [facility] MPV 9.7 7.0 - 11.0 FL LAB HEMETOLOGY METHOD 02/03/2025 11:34 AM EDT [facility] NRBC 0.0 <1.0 % LAB HEMETOLOGY METHOD 02/03/2025 11:34 AM EDT [facility] NRBC Absolute 0.00 <0.10 K/mcL LAB HEMETOLOGY METHOD 02/03/2025 11:34 AM EDT [facility] Blood Venous blood specimen / Unknown Venipuncture / Unknown 02/03/2025 6:28 AM EDT 02/03/2025 10:35 AM EDT us Ashleigh Moreland MD LAB BLOOD ORDERABLES Final Resul t [facility] [address] [place] [address], documented in this encounter Visit Diagnoses Diagnosis Essential (primary) hypertension Unspecified essential hypertension Urinary tract infection, site not specified Chronic kidney disease, unspecified Heart failure, unspecified (CMS/HCC V24, CMS/HCC V28) Heart failure, unspecified documented in this encounter Care Teams Statue Carver Relationship Specialty Start Date End Date Ashleigh Moreland MD [address] [place] [phone] PCP - General Hospitalist Medicine 02/03/25 documented as of this encounter
--- OUTSIDE RECORDS SUMMARY | 2025-06-29 17:14 | XMS_ITS | Clinical Summary ---
Author Organization [facility] Address [address] [address] Phone Care Team Providers Care Fibre Optics Jointer Name Role Phone Amina Whitfield MD Primary Care Provider Active Problems Problem Noted Date Diagnosed Date Nonrheumatic mitral valve regurgitation 12/22/19 25 Dyspnea on exertion 12/22/2024 Anemia 08/09/2024 Atrial fibrillation 10/22/2023 Chronic systolic (congestive) heart failure 09/27 Coronary artery disease 10/22/2023 Cardiomyopathy, unspecified 10/22/2023 Coronary angioplasty status 02/25/2021 Essential (primary) hypertension 02/25/2021 Social History Tobacco Use Types Packs/Day Years Used Date Smoking Tobacco: Never Assessed Education Answer Date Recorded Are you interested in more education? Not on yasmeen e 12/16/2024 Are you concerned about learning? Not on file 12/16/2024 No 12/16/2024 No 12/16/2024 Digital Access Answer Date Recorded No 12/16/2024 No 12/16/2024 Reliable internet access at home? Not on file 12/16/2024 Device with a working camera? Not on file Comments Unknown Sex and Gender Information Value Date Recorded Sex Assigned at Not on file Legal Sex Female 7:44 AM EST Gender Identity Not on file Sexual Orientation Not on file Plan of Treatment Health Maintenance Due Date Last Done Comments Adult Td,Tdap Booster 1953 BLOOD PRESSURE 1953 DEPRESSION SCREENING 1965 SMOKING Hx and SMOKELESS TOB ACCO SCREENING 1966 HEPATITIS C SCREENING 1971 LIPID PANEL 1971 PNEUMOCOCCAL VACCINES (50+ y ears) (1 of 2 - PCV) 1972 MAMMOGRAM 1993 COLOGUARD 1998 COLONOSCOPY 1998 COLORECTAL CANCER SCREENING 1998 FIT TEST 1998 FOBT 1998 SIGMOIDOSCOPY 1998 VIRTUAL COLONOSCOPY 1998 ZOSTER VACCINES (1 of 2) 2003 RSV VACCINE (1 - Risk 60-74 years 1-dose series) 2013 OSTEOPOROSIS SCREENING INITI AL (ONE-TIME) 2018 COVID-19 VACCINE (1 - 2023-2 5 season) 2024 HEPATITIS A VACCINES Aged Out No long er eligible based on patient's age to complete this topic HIB VACCINES Aged Out No longer eligi ble based on patient's age to complete this topic MENINGOCOCCAL VACCINES (ACWY) Aged Out No longer eligible based on patient's age to complete this topic MENINGOCOCCAL VACCINES (B) Aged Out N o longer eligible based on patient's age to complete this topic Medical Devices Not on file Insurance MEDICARE PART A & B [facility] MEDICARE PART A & B MEDICARE PART A & B [facility] MEDICARE PART A & B [facility] MEDICARE PART A & B [facility] MEDICARE PART A & B [facility] Care Teams Fibre Optics Jointer Relationship Specialty Start Date End Date Amina Whitfield MD [address] [place] [address] [place] [address] PCP - General Internal Medicine 11/24/24 Additional Source Comments The information contained in this document represents components of the legal health record. It is not the complete legal health record.[facility]
--- OUTSIDE RECORDS SUMMARY | 2025-06-29 17:14 | XMS_ITS | Encounter Summary ---
Author Organization [facility] Address [address] [facility] [address] [place] [address] Phone Care Team Providers Care Slide Fastener Chain Assembler Name Role Phone Rod Wakefiedl MD Primary Care Provider + Reason for Visit * Reason Comments Med Refill Encounter Details Date Type Department Care Team (Late st Contact Info) Description 01/30/2022 Refill [facility] [address] [place] [address] [place] [address] Oneil Garber MD [address] [facility] [address] [place] [phone] Essential (primary) hypertension; Stage 3a chronic kidney [...] (HCC) documented in this encounter Care Teams Slide Fastener Chain Assembler Relationship Specialty Start Date End Date Rod Wakefield MD [address] , [facility] [address] [place] [address] PCP - General Internal Medicine 05/28/21 documented as of this encounter
--- OUTSIDE RECORDS SUMMARY | 2025-06-29 17:14 | XMS_ITS | Encounter Summary ---
Author Organization [facility] Address [address] [facility] [address] [place] [address] Phone Care Team Providers Care Mortgage Loan Processor Name Role Phone Rod Wakefield MD Primary Care Provider + Encounter Details Date Type Department Care Team (Late st Contact Info) Description 03/08/2021 Orders Only [facility] [address] [place] [address] Oneil Garber MD [address] [facility] [address] [place] [phone] Renal artery stenosis (HCC) Social History Tobacco [...] (HCC) documented in this encounter Care Teams Mortgage Loan Processor Relationship Specialty Start Date End Date Rod Wakefield MD [address] [place] [place] [place], [place] [phone] PCP - General Internal Medicine 05/28/21 documented as of this encounter
--- OUTSIDE RECORDS SUMMARY | 2025-06-29 17:14 | XMS_ITS | Encounter Summary ---
Author Organization [facility] Address [address] [place] [address] Care Team Providers Care Information Assistant Name Role Phone Ashleigh Moreland MD Primary Care Provider [phone] Encounter Details Date Type Department Care Team (Late st Contact Info) Description 09/02/2024 Lab Requisition [facility] - Main Lab [address] [facility] [place] [address] Molly Servin MD [address] [place] [address] Anemia, unspecified Social History Tobacco Use Types [...] AM EST) WBC 8.5 4.8 - 10.8 K/[facility] LAB HEMETOLOGY METHOD 09/02/2024 8:22 AM EST [facility] RBC 3.30(L) 3.80 - 4.80 M/[facility] LAB HEMETOLOGY METHOD 09/02/2024 8:22 AM EST [facility] Hemoglobin 8.2(L) 11.5 - 16.0 g/dL LAB HEMETOLOGY METHOD 09/02/2024 8:22 AM [facility] Hematocrit 27.8(L) 35.0 - 47.0 % LAB HEMETOLOGY METHOD 09/02/2024 8:22 AM [facility] MCV 83.5 79.0 - 98.0 FL LAB HEMETOLOGY METHOD 09/02/2024 8:22 AM [facility] MCH 24.6(L) 27.0 - 32.0 pcg LAB HEMETOLOGY METHOD 09/02/2024 8:22 AM EST [facility] MCHC 29.5(L) 32.0 - 37.0 g/dL LAB HEMETOLOGY METHOD 09/02/2024 8:22 AM [facility] RDW 19.9(H) 11.0 - 15.0 % LAB HEMETOLOGY METHOD 09/02/2024 8:22 AM [facility] Platelets 230 130 - 400 K/mcL LAB HEMETOLOGY METHOD 09/02/2024 8:22 AM [facility] MPV 10.5 7.0 - 11.0 FL LAB HEMETOLOGY METHOD 09/02/2024 8:22 AM [facility] NRBC 0.0 <1.0 % LAB HEMETOLOGY METHOD 09/02/2024 8:22 AM [facility] NRBC Absolute 0.00 <0.10 K/mcL LAB HEMETOLOGY METHOD 09/02/2024 8:22 AM [facility] Blood Venous blood specimen / Unknown Venipuncture / Unknown 09/02/2024 5:42 AM EST 09/02/2024 7:50 AM EST us Molly Servin MD LAB BLOOD ORDERABLES Final Resul t [facility] [address] [place] [address], [place] [phone] documented in this encounter Visit Diagnoses Diagnosis Anemia, unspecified documented in this encounter Care Teams Information Assistant Relationship Specialty Start Date End Date Ashleigh Moreland MD [address] [place] [address] PCP - General Hospitalist Medicine 02/03/25 documented as of this encounter
--- OUTSIDE RECORDS SUMMARY | 2025-06-29 17:14 | XMS_ITS | Clinical Summary ---
Author Organization [facility] Address [address] [address] Care Team Providers Care Sandblast Operator Name Role Phone Rod Wakefield MD [...] Cancer Screening: Sigmoidoscopy 2002 Influenza Vaccine (#1) 2025 Hepatitis B Vaccine Aged Out No longe r eligible based on patient's age to complete this topic Insurance Medicare [facility] Medicare [facility] Care Teams Sandblast Operator Relationship Specialty Start Date End Date Rod Wakefield MD [address] [place] [address] PCP - General Internal Medicine 05/28/21
--- OUTSIDE RECORDS SUMMARY | 2025-06-29 17:14 | XMS_ITS | Encounter Summary ---
Author Organization [facility] Address [address] [place] [address] Care Team Providers Care Med Care Manager Name Role Phone Ashleigh Moreland MD Primary Care Provider [phone] Encounter Details Date Type Department Care Team (Late st Contact Info) Description 09/04/2024 Lab Requisition [facility] - Main Lab [address] [place] [address] Molly Servin MD [address] [place] [address] Hypotension, unspecified Social History Tobacco Use Types [...] mmol/L LAB CHEMISTRY METHOD 09/04/2024 11:04 AM [facility] CO2 28 21 - 32 mmol/L LAB CHEMISTRY METHOD 09/04/2024 11:04 AM [facility] Anion Gap 7 3 - 11 LAB CHEMISTRY METHOD 09/04/2024 11:04 AM [facility] Glucose 76 70 - 100 mg/dL LAB CHEMISTRY METHOD 09/04/2024 11:04 AM [facility] BUN 34(H) 5 - 25 mg/dL LAB CHEMISTRY METHOD 09/04/2024 11:04 AM [facility] Creatinine 1.73(H) 0.50 - 1.10 mg/dL LAB CHEMISTRY METHOD 09/04/2024 11:04 AM [facility] eGFR 31(L) >=60 mL/min/1. 73m2 LAB CHEMISTRY METHOD 09/04/2024 11:04 AM [facility] Comment:Calculation based on the Chronic Kidney Disease Epidemiology Collaboration (CKD-EPI) equation refit without adjustment for race. BUN/Creatinine Ratio 19.7 LAB CHEMISTRY METHOD 09/04/2024 11:04 AM [facility] Calcium 8.9 8.5 - 10.5 mg/dL LAB CHEMISTRY METHOD 09/04/2024 11:04 AM [facility] Blood Venous blood specimen / Unknown Venipuncture / Unknown 09/04/2024 8:08 AM EST 09/04/2024 9:58 AM EST us Molly Servin MD LAB BLOOD ORDERABLES Final Resul t [facility] [address] [place] [address], * (ABNORMAL) Complete blood count (09/04/2024 8:08 AM EST) WBC 5.0 4.8 - 10.8 K/mcL LAB HEMETOLOGY METHOD 09/04/2024 10:41 AM [facility] RBC 3.50(L) 3.80 - 4.80 M/mcL LAB HEMETOLOGY METHOD 09/04/2024 10:41 AM [facility] Hemoglobin 8.8(L) 11.5 - 16.0 g/dL LAB HEMETOLOGY METHOD 09/04/2024 10:41 AM [facility] Hematocrit 29.4(L) 35.0 - 47.0 % LAB HEMETOLOGY METHOD 09/04/2024 10:41 AM [facility] MCV 83.5 79.0 - 98.0 FL LAB HEMETOLOGY METHOD 09/04/2024 10:41 AM [facility] MCH 25.0(L) 27.0 - 32.0 pcg LAB HEMETOLOGY METHOD 09/04/2024 10:41 AM [facility] MCHC 29.9(L) 32.0 - 37.0 g/dL LAB HEMETOLOGY METHOD 09/04/2024 10:41 AM [facility] RDW 19.9(H) 11.0 - 15.0 % LAB HEMETOLOGY METHOD 09/04/2024 10:41 AM [facility] Platelets 248 130 - 400 K/mcL LAB HEMETOLOGY METHOD 09/04/2024 10:41 AM [facility] MPV 10.2 7.0 - 11.0 FL LAB HEMETOLOGY METHOD 09/04/2024 10:41 AM [facility] NRBC 0.0 <1.0 % LAB HEMETOLOGY METHOD 09/04/2024 10:41 AM [facility] NRBC Absolute 0.00 <0.10 K/mcL LAB HEMETOLOGY METHOD 09/04/2024 10:41 AM [facility] Blood Venous blood specimen / Unknown Venipuncture / Unknown 09/04/2024 8:08 AM EST 09/04/2024 9:58 AM EST Molly Servin MD LAB BLOOD ORDERABLES Final Resul t [facility] [address] [place] [address], documented in this encounter Visit Diagnoses Diagnosis Hypotension, unspecified documented in this encounter Care Teams Med Care Manager Relationship Specialty Start Date End Date Ashleigh Moreland MD [address] [place] [address] PCP - General Hospitalist Medicine 02/03/25 documented as of this encounter
== END 2025-06-29 15:07 | disposition home or self-care (01) ==
LOC: HO.LAB 15:06
PROVIDERS: Nurse Practitioner Family; PCP Internal Medicine; Visit Provider Internal Medicine
DX: I48.91 Unspecified atrial fibrillation (principal); N18.9 Chronic kidney disease, unspecified; D64.9 Anemia, unspecified
CPT/HCPCS: 36415; 80053; 82607; 84439; 84443; 85025

== ENCOUNTER 2025-07-06 13:03 | Outpatient (AMB) | payer MEDICARE, BC, SELFPAY ==
--- NOTE | 2025-07-06 13:08 | MHC.OFFVIS ---
Vital Signs 07/06/25 13:09 Height 5 ft 6 in Weight 156 lb 1.396 oz BMI 25.2 BP 138/70 Blood Pressure Location Rt brachial Position Sitting Pulse 62 Pulse Source Monitor Intake Visit Reasons: Office Visit w/ EKG Accompanied by: Self / Same As Patient Allergies codeine (Codeine) Adverse Reaction (Mild, Verified 07/06/25 13:14) vomiting Medication List - Last Reconciled 07/06/25 by Everett Yip NP apixaban (Eliquis) 5 mg PO BID ascorbate calcium (vitamin C) 500 mg PO DAILY atorvastatin 80 mg PO BEDTIME cholecalciferol (vitamin D3) (Vitamin D3) 25 mcg PO DAILY clopidogrel 75 mg PO DAILY cranberry conc-ascorbic acid 4,200-20 mg caps PO cyanocobalamin (vitamin B-12) (Vitamin B-12) 1,000 mcg PO DAILY fluticasone propion-salmeterol 113-14 mcg/actuation 1 inh inhalation Q12H furosemide 40 mg (2 x 20 mg) PO DAILY levothyroxine (Synthroid) 50 mcg PO DAILY@0600 melatonin 10 mg PO BEDTIME metoprolol succinate ER 25 mg PO DAILY pantoprazole 40 mg PO DAILY@0630 paroxetine HCl 40 mg PO BEDTIME HPI Comments Details: This is a 69-year-old female patient coming in for a follow-up visit. Patient with a history of HFpEF, paroxysmal AFib status post ablation, hypertension, hyperlipidemia, CAD with stents in left circumflex and RCA. Today, patient reports feeling well overall without any cardiac symptoms of exertional chest pain, shortness of breath, palpitations, dizziness, orthopnea, PND, leg edema, presyncope or syncope. Patient reports that she was seen by Dr. Holley status post ablation and is now off amiodarone. Patient's main concern is leg weakness due to which patient is not able to carry out her daily activities and is in a wheelchair today. Patient is working with the PCP for physical therapy referral to gain her strength back in her legs. Patient is otherwise reporting compliance with all her medications. No reported signs of fall or bleeding. [facility] Medical History Acute exacerbation of CHF (congestive heart failure) Acute diastolic (congestive) heart failure Atrial fibrillation with rapid ventricular response Preop cardiovascular exam PAF (paroxysmal atrial fibrillation) Recurrent urinary tract infection Bilateral cataracts History of cardioversion Myocardial infarction Arthritis Hx of transfusion of packed red blood cells Thyroid disease GERD (gastroesophageal reflux disease) CKD (chronic kidney disease) On anticoagulant therapy Osteoarthritis of left hip Atrial fibrillation UTI (urinary tract infection) History of smoking 30 or more pack years Atrial fibrillation with rapid ventricular response Left renal artery stenosis Personal history of nicotine dependence Cardiomyopathy Essential hypertension Atherosclerotic cardiovascular disease Asymmetric blood pressures Acute on chronic systolic (congestive) heart failure CHF (congestive heart failure) CAD (coronary artery disease) Multiple sclerosis Pulmonary nodules COPD (chronic obstructive pulmonary disease) Peripheral arterial occlusive disease Surgical History History of total left hip replacement (03/30/24) Hip joint replacement status History of endoscopy History of colonoscopy History of heart artery stent (~2018) Status post angioplasty with stent (~09/2018) S/P insertion of iliac artery stent (~02/2019) S/P cardiac cath (~12/2020) History of cholecystectomy (~02/2009) Family History Father No problems noted. Mother No problems noted. Brother Diabetes Social History Household Members: None Housing: House Housing Other:: Sent in from [place] [place] Are you a primary primary health care nurse to a significant other at home: No Do you presently have visiting nurse or other home services: No Alcohol intake: never Comment: aware of trip hazard Patient Tobacco Use Status: Former Tobacco user Tobacco use type: Cigarette Years Smoked: 50 e-Cigarette/Vaping Use: Never Used Second Hand Smoke Exposure: No Advance Directives Date on File: 04/20/24 service: No Current occupational status: retired Cognitive needs: Yes (cane) Hearing needs: No Vision needs: Yes (reading glasses) Review of Systems Const Denies daytime sleepiness, Denies difficulty sleeping, Denies snoring, Denies stops breathing during sleep and Denies weakness Card Denies chest pain, Denies rapid heart rate, Denies irregular heart rhythm, Denies claudication, Denies leg edema, Denies lightheadedness, Denies palpitations, Denies dyspnea, Denies dyspnea on exertion, Denies orthopnea, Denies paroxysmal nocturnal dyspnea and Denies slow heart rate Resp Denies cough, Denies dyspnea, Denies dyspnea on exertion and Denies snoring GI Reports no additional complaints, Denies hematochezia, Denies change in stool character and Denies dyspepsia Musc Denies abnormal gait, Denies muscle weakness and Denies numbness Neuro Denies abnormal gait, Denies numbness and Denies weakness Endo Denies palpitations Physical Exam Vital Signs: Last Vital Signs Pulse 62 07/06/25 13:09 BP 138/70 07/06/25 13:09 BMI result Body Mass Index 25.2 Const General: cooperative, comfortable and no acute distress Orientation/consciousness: patient oriented x3 HEENT Head: Yes normal to inspection Neck Neck: Yes normal visual inspection, Yes trachea midline and Yes supple Chest Chest palpation & inspection: normal inspection of the chest Resp Effort & Inspection: normal respiratory effort Auscultation: clear to auscultation bilaterally, no crackles, no rales, no rhonchi and no wheezes Cardio Jugular venous distension: no JVD Palpation: normal PMI Rate: regular rate Rhythm: regular rhythm Heart sounds: S1 normal heart sound present, S2 normal heart sound present, no click, no gallops, no murmurs and no rubs Peripheral pulses: Peripheral pulses 2+ throughout GI Inspection: Yes normal to inspection Palpation (GI): Soft to palpation Auscultation: normal bowel sounds Skin General skin exam: no rashes or lesions noted Neuro General: patient oriented x3 Extrem General: Yes normal to inspection, No no pedal edema and No calf tenderness Psych Appearance: grossly normal Mental Status: mental status grossly normal Speech and movement: Normal speech and movement present Office Procedures EKG Details: EKG today showed normal sinus rhythm, 62 beats per minute, nonspecific intraventricular conduction delay, STT wave abnormality in the inferolateral leads, [place], [place]. [id number]-[id number], Complete Assessment & Plan Assessment & Plan (1) PAF (paroxysmal atrial fibrillation): Code(s): I48.0 - Paroxysmal atrial fibrillation Category: Medical Plan: History of long AFib status post multiple cardioversions and catheter ablation on 03/08/2025. Patient is now off amiodarone. Patient states that she intermittently takes her metoprolol as she is fearful of her heart rate slowing down as patient notes that sometimes her heart rate is in the low 50s. We will reduce her metoprolol to 12.5 mg daily. Continue Eliquis for full anticoagulation therapy. (2) CHF (congestive heart failure): Comment: She was treated for congestive heart failure/bilateral pleural effusions, in June of this year. She stays on diuretic therapy is doing fairly well at this time. Code(s): I50.9 - Heart failure, unspecified Category: Medical Plan: History of heart failure with preserved EF. 01/31/2025-echo showed mildly decreased LV systolic function with the ejection fraction between 40-45%, mildly increased LV wall thickness, akinetic basal inferior and mid inferior segments, severely dilated left atrium, [id number] mitral valve regurgitation, and elevated filling pressures. Clinically stable and euvolemic. Continue on current diuretic dose. Advised low-salt diet, daily weight monitoring, and fluid restriction at 1.5-2 L daily. (3) Cardiomyopathy: Code(s): I42.9 - Cardiomyopathy, unspecified Category: Medical Qualifiers: Cardiomyopathy type: other Qualified Code(s): I42.8 - Other cardiomyopathies Plan: As above. (4) S/P cardiac catheterization: Comment: Last cardiac catheterization 04/02/2023 showing mid LAD 30% stenosis, proximal circumflex stent patent, mid circumflex 80% stenosis and stent placed, RCA proximal stent patent, mid RCA 50% stenosis Code(s): Z98.890 - Other specified postprocedural states Category: Surgical Plan: Continue Plavix therapy. (5) CAD (coronary artery disease): Comment: (Hx 2 MIs 2018 & 2020 - Hx LCx & RCA stents 2019 - patent on recent 12/2020 cath) Code(s): I25.10 - Atherosclerotic heart disease of squaxin coronary artery without angina pectoris Category: Medical Plan: Continue high-dose statin therapy. Last LDL is 72. Ideally her goal should be less than 70. (6) Essential hypertension: Code(s): I10 - Essential (primary) hypertension Category: Medical Plan: Blood pressure today is well-controlled. Continue current regimen. Advised monitoring blood pressures with a goal of less than 130/80. Recommended heart healthy diet, regular exercise, med compliance, stress medication strategies, and aggressive management of vascular risk factors. In regards to her leg weakness, patient is working with PCP for a physical therapy referral. Patient follow up in 6 months. In the interim, patient will call the office with any concerns or change in symptoms. This note was generated using voice recognition software. While every effort has been made to ensure accuracy and proper global vp creative + content marketing, there may be occasional errors that could affect the content or meaning of the described symptoms. Orders: Orders AMB EKG-In Office Today I48.0 - Paroxysmal atrial fibrillation Medications: Changed From metoprolol succinate ER 25 mg PO DAILY To metoprolol succinate ER 12.5 mg PO DAILY Coding Level of Care Code Est Pt Level 4 (99690) Complex EM visit Add On G2211 Diagnoses PAF (paroxysmal atrial fibrillation) I48.0 CHF (congestive heart failure) I50.9 Other cardiomyopathy I42.8 Cardiomyopathy type: other S/P cardiac catheterization Z98.890 CAD (coronary artery disease) I25.10 Essential hypertension I10 CPT Codes EKG - CPT: 86061-Mhuinwiraczrzoske, Complete ([id number]) Time Spent (min) 32 Comment Time spent in reviewing the chart, test results, assessment, counseling and documentation.
[2025-07-06 13:09] VITALS: BP 138/70; PULSE 62; BMI 25.2
--- OUTSIDE RECORDS SUMMARY | 2025-07-06 16:03 | XMS_ITS | Encounter Summary ---
Author Organization [facility] Address [address] [facility] [address] [place] [address] Phone Care Team Providers Care Extrusion Die Template Maker Name Role Phone Rod Wakefield MD Primary Care Provider + Encounter Details Date Type Department Care Team (Late st Contact Info) Description 03/08/2021 Orders Only [facility] [address] [place] [address] Oneil Garber MD [address] [facility] [address] [place] [id number] Renal artery stenosis (HCC) Social History Tobacco [...] (HCC) documented in this encounter Care Teams Extrusion Die Template Maker Relationship Specialty Start Date End Date Rod Wakefield MD [address], [place] [phone] PCP - General Internal Medicine 05/28/21 documented as of this encounter
--- OUTSIDE RECORDS SUMMARY | 2025-07-06 16:03 | XMS_ITS | Clinical Summary ---
Author Organization [facility] Facility Address [address] [address] Care Team Providers Care Inspector Type Name Role Phone Rod Wakefield MD Primary [...] age to complete this topic Insurance Medicare [facility] Medicare [facility] Care Teams Inspector Type Relationship Specialty Start Date End Date Rod Wakefield MD [address] [place] [address] PCP - General Internal Medicine 05/28/21
--- OUTSIDE RECORDS SUMMARY | 2025-07-06 16:03 | XMS_ITS | Encounter Summary ---
Author Organization [facility] Address [address] [facility] [address] [place] [address] Phone Care Team Providers Care Commanding Officer Homicide Squad Name Role Phone Rod Wakefield MD Primary Care Provider + Reason for Visit * Reason Comments Med Refill Encounter Details Date Type Department Care Team (Late st Contact Info) Description 01/30/2022 Refill [facility] [address] [place] [address] Oneil Garber MD [address] [facility] [address] [place] [phone] Essential (primary) hypertension; Stage 3a chronic kidney [...] (HCC) documented in this encounter Care Teams Commanding Officer Homicide Squad Relationship Specialty Start Date End Date Rod Wakefield MD [address] , [facility] [address] [place] [address] PCP - General Internal Medicine 05/28/21 documented as of this encounter
--- OUTSIDE RECORDS SUMMARY | 2025-07-06 16:03 | XMS_ITS | Clinical Summary ---
Author Organization [facility] Address [address] [address] Phone Care Team Providers Care Emergency Department Rn Name Role Phone Amina Whitfield MD Primary [...] 2013 OSTEOPOROSIS SCREENING INITI AL (ONE-TIME) 2018 INFLUENZA VACCINE (#1) 2025 COVID-19 VACCINE (1 - 2023-2 5 season) 2025 HEPATITIS A VACCINES Aged Out No long [...] file Insurance MEDICARE PART A & B [facility] MEDICARE PART A & B Member Subscriber Plan / Payer (Ef fective 2018-) Name:Nai Garcia Member ID:[id number] Relation to Subscriber:Self Name:Nai Garcia Subscriber ID:[id number] Payer ID:[id number] Group ID:Not on file Type:Medicare Address: [employer] [address] [place] [id number] [place] [address] MEDICARE PART A & B Member Subscriber Plan / Payer (Ef fective 2018-) Name:Nai Garcia Member ID:[id number] Relation to Subscriber:Self Name:Nai Garcia Subscriber ID:[id number] Payer ID:[id number] Group ID:Not on file Type:Medicare Address: [employer] [address] [place] [address] [facility] MEDICARE PART A & B [facility] MEDICARE PART A & B Member Subscriber Plan / Payer (Ef fective 2018-Present) Name:Nai Garcia Member ID:[id number] Relation to Subscriber:Self Name:Bindu Garciajorie Subscriber ID:[id number] Payer ID:[id number] Group ID:Not on file Type:Medicare Address: [employer] [address] [place] [address] [facility] MEDICARE PART A & B Member Subscriber Plan / Payer (Ef fective 2018-Present) Name:Nai Garcia Member ID:[id number] Relation to Subscriber:Self Name:Nai Garcia Subscriber ID:[id number] Payer ID:[id number] Group ID:Not on file Type:Medicare Address: [employer] [address] [place] [address] [facility] Care Teams Emergency Department Rn Relationship Specialty Start Date End Date Amina Whitfield MD [address] [place] [address] [place] [address] PCP - General Internal Medicine 11/24/24 Additional Source Comments The information contained in this document represents components of the legal health record. It is not the complete legal health record.[facility]
--- OUTSIDE RECORDS SUMMARY | 2025-07-06 16:03 | XMS_ITS | Encounter Summary ---
Author Organization [facility] Address [address] [place] [address] Care Team Providers Care Linecasting Machine Keyboard Operator Name Role Phone Ashleigh Moreland MD Primary Care Provider [phone] Encounter Details Date Type Department Care Team (Late st Contact Info) Description 08/28/2024 Lab Requisition [facility] - Main Lab [address] [facility] [place] [address] Molly Servin MD [address] [place], [place] [phone] Shortness of breath Social History Tobacco Use [...] (ABNORMAL) Vitamin B12 (08/30/2024 7:38 AM EST) [facility] Vitamin B-12 1,750(H) 250 - 900 pcg/mL LAB CHEMISTRY METHOD 08/30/2024 10:18 PM EST [facility] Blood Venous blood specimen / Unknown Venipuncture / Unknown 08/30/2024 7:38 AM EST 08/30/2024 9:32 AM EST us Molly Servin MD LAB BLOOD ORDERABLES Final Resul t [facility] [address] [place] [address], [place] [phone] * Travel phlebotomy fee (08/30/2024 7:38 AM EST) Pathologist [facility] LONG-TERM TRAVEL PHLEBOTOMY FEE Completed 08/30/2024 10:01 AM [facility] Blood Venous blood specimen / Unknown Venipuncture / Unknown 08/30/2024 7:38 AM EST 08/30/2024 9:32 AM EST us Molly Servin MD LAB BLOOD ORDERABLES Final Resul t Performing Organization Address City/[facility]/ZIP Co de Phone Number [facility] [address] [place] [address], [place] [phone] * (ABNORMAL) Basic metabolic panel (08/30/2024 7:38 AM EST) [facility] Sodium 143 133 - 145 mmol/L LAB CHEMISTRY METHOD 08/30/2024 10:57 AM [facility] Potassium 4.1 3.5 - 5.5 mmol/L LAB CHEMISTRY METHOD 08/30/2024 10:57 AM [facility] Chloride 107 96 - 110 mmol/L LAB CHEMISTRY METHOD 08/30/2024 10:57 AM [facility] CO2 30 21 - 32 mmol/L LAB CHEMISTRY METHOD 08/30/2024 10:57 AM [facility] Anion Gap 6 3 - 11 LAB CHEMISTRY METHOD 08/30/2024 10:57 AM EST [facility] Glucose 76 70 - 100 mg/dL LAB CHEMISTRY METHOD 08/30/2024 10:57 AM [facility] BUN 31(H) 5 - 25 mg/dL LAB CHEMISTRY METHOD 08/30/2024 10:57 AM [facility] Creatinine 1.87(H) 0.50 - 1.10 mg/dL LAB CHEMISTRY METHOD 08/30/2024 10:57 AM [facility] eGFR 28(L) >=60 mL/min/1. 73m2 LAB CHEMISTRY METHOD 08/30/2024 10:57 AM [facility] Comment:Calculation based on the Chronic Kidney Disease Epidemiology Collaboration (CKD-EPI) equation refit without adjustment for race. BUN/Creatinine Ratio 16.6 LAB CHEMISTRY METHOD 08/30/2024 10:57 AM [facility] Calcium 8.9 8.5 - 10.5 mg/dL LAB CHEMISTRY METHOD 08/30/2024 10:57 AM [facility] Blood Venous blood specimen / Unknown Venipuncture / Unknown 08/30/2024 7:38 AM EST 08/30/2024 9:32 AM EST us Molly Servin MD LAB BLOOD ORDERABLES Final Resul t [facility] [address] [place] [address], * (ABNORMAL) Complete blood count (08/30/2024 7:38 AM EST) WBC 6.0 4.8 - 10.8 K/mcL LAB HEMETOLOGY METHOD 08/30/2024 10:49 AM [facility] RBC 3.50(L) 3.80 - 4.80 M/mcL LAB HEMETOLOGY METHOD 08/30/2024 10:49 AM [facility] Hemoglobin 8.5(L) 11.5 - 16.0 g/dL LAB HEMETOLOGY METHOD 08/30/2024 10:49 AM [facility] Hematocrit 29.5(L) 35.0 - 47.0 % LAB HEMETOLOGY METHOD 08/30/2024 10:49 AM [facility] MCV 84.8 79.0 - 98.0 FL LAB HEMETOLOGY METHOD 08/30/2024 10:49 AM [facility] MCH 24.4(L) 27.0 - 32.0 pcg LAB HEMETOLOGY METHOD 08/30/2024 10:49 AM [facility] MCHC 28.8(L) 32.0 - 37.0 g/dL LAB HEMETOLOGY METHOD 08/30/2024 10:49 AM [facility] RDW 19.6(H) 11.0 - 15.0 % LAB HEMETOLOGY METHOD 08/30/2024 10:49 AM [facility] Platelets 223 130 - 400 K/mcL LAB HEMETOLOGY METHOD 08/30/2024 10:49 AM [facility] MPV 10.4 7.0 - 11.0 FL LAB HEMETOLOGY METHOD 08/30/2024 10:49 AM [facility] NRBC 0.0 <1.0 % LAB HEMETOLOGY METHOD 08/30/2024 10:49 AM [facility] NRBC Absolute 0.00 <0.10 K/mcL LAB HEMETOLOGY METHOD 08/30/2024 10:49 AM [facility] Blood Venous blood specimen / Unknown Venipuncture / Unknown 08/30/2024 7:38 AM EST 08/30/2024 9:32 AM EST us Molly Servin MD LAB BLOOD ORDERABLES Final Resul t [facility] [address] [place] [address], documented in this encounter Visit Diagnoses Diagnosis Shortness of breath documented in this encounter Care Teams Linecasting Machine Keyboard Operator Relationship Specialty Start Date End Date Ashleigh Moreland MD [address] [place] [phone] PCP - General Hospitalist Medicine 02/03/25 documented as of this encounter
--- OUTSIDE RECORDS SUMMARY | 2025-07-06 16:03 | XMS_ITS | Encounter Summary ---
Author Organization [facility] Address [address] [place] [address] Care Team Providers Care Civil Engineering Project Manager Name Role Phone Ashleigh Moreland MD Primary Care Provider Encounter Details Date Type Department Care Team (Late st Contact Info) Description 09/04/2024 Lab Requisition [facility] - Main Lab [address] [place] [address] Molly Servin MD [address] [place] [address] Hypotension, unspecified Social History Tobacco Use Types [...] LAB CHEMISTRY METHOD 09/04/2024 11:04 AM EST [facility] Potassium 4.1 3.5 - 5.5 mmol/L LAB CHEMISTRY METHOD 09/04/2024 11:04 AM EST [facility] Chloride 109 96 - [...] [facility] Comment:Calculation based on the Chronic [...] Resul t [facility] [address] [place] [address], * (ABNORMAL) Complete blood count (09/04/2024 8:08 [...] MD LAB BLOOD ORDERABLES Final Resul t [facility] ([facility] [address] [place] [address], documented in this encounter Visit Diagnoses Diagnosis Hypotension, unspecified documented in this encounter Care Teams Civil Engineering Project Manager Relationship Specialty Start Date End Date Ashleigh Moreland MD [address] [place] [address] PCP - General Hospitalist Medicine 02/03/25 documented as of this encounter
--- OUTSIDE RECORDS SUMMARY | 2025-07-06 16:03 | XMS_ITS | Encounter Summary ---
Author Organization [facility] Address [address] [place] [address] Care Team Providers Care Geochemist Name Role Phone Ashleigh Moreland MD Primary Care Provider [phone] Encounter Details Date Type Department Care Team (Late st Contact Info) Description 09/02/[address] [facility] - Main Lab [address] [facility] [place] [address] Molly Servin MD [address] [place] [address] Anemia, unspecified Social History Tobacco Use Types [...] AM EST) WBC 8.5 4.8 - 10.8 K/[facility] LAB HEMETOLOGY METHOD 09/02/2024 8:22 AM EST [facility] RBC 3.30(L) 3.80 - 4.80 M/[facility] LAB HEMETOLOGY METHOD 09/02/2024 8:22 AM EST [facility] Hemoglobin 8.2(L) 11.5 - 16.0 g/dL LAB HEMETOLOGY METHOD 09/02/2024 8:22 AM [facility] Hematocrit 27.8(L) 35.0 - 47.0 % LAB HEMETOLOGY METHOD 09/02/2024 8:22 AM [facility] MCV 83.5 79.0 - 98.0 FL LAB HEMETOLOGY METHOD 09/02/2024 8:22 AM [facility] MCH 24.6(L) 27.0 - 32.0 pcg LAB HEMETOLOGY METHOD 09/02/2024 8:22 AM EST [facility] MCHC 29.5(L) 32.0 - 37.0 g/dL LAB HEMETOLOGY METHOD 09/02/2024 8:22 AM [facility] RDW 19.9(H) 11.0 - 15.0 % LAB HEMETOLOGY METHOD 09/02/2024 8:22 AM [facility] Platelets 230 130 - 400 K/mcL LAB HEMETOLOGY METHOD 09/02/2024 8:22 AM [facility] MPV 10.5 7.0 - 11.0 FL LAB HEMETOLOGY METHOD 09/02/2024 8:22 AM [facility] NRBC 0.0 <1.0 % LAB HEMETOLOGY METHOD 09/02/2024 8:22 AM [facility] NRBC Absolute 0.00 <0.10 K/mcL LAB HEMETOLOGY METHOD 09/02/2024 8:22 AM [facility] Blood Venous blood specimen / Unknown Venipuncture / Unknown 09/02/2024 5:42 AM EST 09/02/2024 7:50 AM EST us Molly Servin MD LAB BLOOD ORDERABLES Final Resul t [facility] [address] [place] [address], [place] [phone] documented in this encounter Visit Diagnoses Diagnosis Anemia, unspecified documented in this encounter Care Teams Geochemist Relationship Specialty Start Date End Date Ashleigh Moreland MD [address] [place] [address] PCP - General Hospitalist Medicine 02/03/25 documented as of this encounter
--- OUTSIDE RECORDS SUMMARY | 2025-07-06 16:03 | XMS_ITS | Clinical Summary ---
Author Organization [address] [facility] Address [address] [place] [address] Phone Care Team Providers Care Roller Pneumatic Name Role Phone Ashleigh Moreland MD Primary Care Provider [phone] Social History Tobacco Use Types Packs/Day Years [...] Chronic kidney disease, unspecified Heart failure, unspecified ([facility] V24, [facility] V28) from Last 3 Months or Most Recently Relevant to Health Maintenance Results * (ABNORMAL) Comprehensive metabolic panel (02/03/2025 6:28 AM EDT) Sodium 138 133 - 145 mmol/L LAB CHEMISTRY METHOD 02/03/2025 11:51 AM [facility] Potassium 3.9 3.5 - 5.5 mmol/L LAB CHEMISTRY METHOD 02/03/2025 11:51 AM [facility] Chloride 99 96 - 110 mmol/L LAB CHEMISTRY METHOD 02/03/2025 11:51 AM [facility] CO2 31 21 - 32 mmol/L LAB CHEMISTRY METHOD 02/03/2025 11:51 AM [facility] Anion Gap 8 3 - 11 LAB CHEMISTRY METHOD 02/03/2025 11:51 AM [facility] Glucose 78 70 - 100 mg/dL LAB CHEMISTRY METHOD 02/03/2025 11:51 AM [facility] BUN 21 5 - 25 mg/dL LAB CHEMISTRY METHOD 02/03/2025 11:51 AM [facility] Creatinine 2.22(H) 0.50 - 1.10 mg/dL LAB CHEMISTRY METHOD 02/03/2025 11:51 AM [facility] eGFR 23(L) >=60 mL/min/1. 73m2 LAB CHEMISTRY METHOD 02/03/2025 11:51 AM [facility] Comment:Calculation based on the Chronic Kidney Disease Epidemiology Collaboration (CKD-EPI) equation refit without adjustment for race. BUN/Creatinine Ratio 9.5 LAB CHEMISTRY METHOD 02/03/2025 11:51 AM [facility] Calcium 8.6 8.5 - 10.5 mg/dL LAB CHEMISTRY METHOD 02/03/2025 11:51 AM [facility] AST (SGOT) 14 10 - 42 unit/L LAB CHEMISTRY METHOD 02/03/2025 11:51 AM [facility] ALT (SGPT) 18 10 - 60 unit/L LAB CHEMISTRY METHOD 02/03/2025 11:51 AM [facility] Alkaline Phosphatase 120 42 - 121 unit/L LAB CHEMISTRY METHOD 02/03/2025 11:51 AM [facility] Total Protein 6.1 6.0 - 8.0 g/dL LAB CHEMISTRY METHOD 02/03/2025 11:51 AM [facility] Albumin 2.3(L) 3.2 - 5.0 g/dL LAB CHEMISTRY METHOD 02/03/2025 11:51 AM [facility] Total Bilirubin 0.4 0.0 - 1.4 mg/dL LAB CHEMISTRY METHOD 02/03/2025 11:51 AM [facility] Blood Venous blood specimen / Unknown Venipuncture / Unknown 02/03/2025 6:28 AM EDT 02/03/2025 10:35 AM EDT us Ashleigh Moreland MD LAB BLOOD ORDERABLES Final Resul t [facility] [address] [place] [address], from Last 3 Months or Most Recently Relevant to Health Maintenance Insurance MEDICARE Care Teams Roller Pneumatic Relationship Specialty Start Date End Date Ashleigh Moreland MD [address] [place] [id number] PCP - General Hospitalist Medicine 02/03/25
--- OUTSIDE RECORDS SUMMARY | 2025-07-06 16:03 | XMS_ITS | Clinical Summary ---
Author Organization [facility] Address [address] [place] [address] Care Team Providers Care Manager Of Maintenance Name Role Phone No, Referring Primary Care [...] to 7.9/25.9 in the ED. Baseline per [place] lab Hgb ~8.5-10. No concern of GI [...] to 7.9/25.9 in the ED. Baseline per [place] lab Hgb ~8.5-10. No concern of GI bleed. - Eliquis per afib section - Start IV iron once stable from infection perspective Assessment & Plan (08/18/2024 3:41 PM EDT): Microcytic anemia. Home med: Iron sulfate 325 mg daily. Presented with H/H 9.3 and 32.5, down trending to 7.9/25.9 in the ED. Baseline per [place] lab Hgb ~8.5-10. No concern of GI bleed. - Eliquis per afib section - Start IV iron once stable from infection perspective Assessment & Plan (08/17/2024 2:57 PM EDT): Microcytic anemia. Home med: Iron sulfate 325 mg daily. Presented with H/H 9.3 and 32.5, down trending to 7.9/25.9 in the ED. Baseline per [place] lab Hgb ~8.5-10. No concern of GI bleed. - Eliquis per afib section - Start IV iron once stable from infection perspective Assessment & Plan (08/16/2024 1:21 PM EDT): Microcytic anemia. Home med: Iron sulfate 325 mg daily. Presented with H/H 9.3 and 32.5, down trending to 7.9/25.9 in the ED. Baseline per [place] lab Hgb ~8.5-10. No concern of GI bleed. - Restart home eliquis at lower dose - Start IV iron once stable from infection perspective Assessment & Plan (08/15/2024 2:33 PM EDT): Microcytic anemia. Home med: Iron sulfate 325 mg daily. Presented with H/H 9.3 and 32.5, down trending to 7.9/25.9 in the ED. Baseline per [place] lab Hgb ~8.5-10. No concern of GI bleed. - Holding home eliquis - Will begin IV iron once stable from infection perspective Assessment & Plan (08/15/2024 12:34 PM EDT): Microcytic anemia. Home med: Iron sulfate 325 mg daily. Presented with H/H 9.3 and 32.5, down trending to 7.9/25.9 in the ED. Baseline per [place] lab Hgb ~8.5-10. No concern of GI bleed. - Holding home eliquis - Will begin IV iron once stable from infection perspective Assessment & Plan (08/14/2024 8:36 PM EDT): Microcytic anemia. Home med: Iron sulfate 325 mg daily. Presented with H/H 9.3 and 32.5, down trending to 7.9/25.9 in the ED. Baseline per [place] lab Hgb ~8.5-10. No concern of GI [...] to 7.9/25.9 in the ED. Baseline per [place] lab Hgb ~8.5-10. No concern of GI [...] to 7.9/25.9 in the ED. Baseline per [place] lab Hgb ~8.5-10. No concern of GI [...] to 7.9/25.9 in the ED. Baseline per [place] lab Hgb ~8.5-10. No concern of GI bleed. - Holding home eliquis - IV iron started per HF section Assessment & Plan (08/10/2024 6:12 PM EDT): Microcytic anemia. Home med: Iron sulfate 325 mg daily. Presented with H/H 9.3 and 32.5, down trending to 7.9/25.9 in the ED. Baseline per [place] lab Hgb ~8.5-10. No concern of GI bleed. - Holding home anticoagulation Assessment & Plan (08/09/2024 5:57 PM EDT): Patient presented with nose bleeds. Found to be anemic with an H/H 9.3 and 32.5, down trending to 7.9/25.9 in the ED. Baseline per [place] lab hgb ~8.5-10. No concern of GI [...] Lopressor 50 mg BID, Follows Cardiology at [place]. Called [facility] pharmacy in [place] who reported that she didn't refill her [...] Lopressor 50 mg BID, Follows Cardiology at [place]. Called [facility] pharmacy in [place] who reported that she didn't refill her [...] Lopressor 50 mg BID, Follows Cardiology at [place]. Called [facility] pharmacy in [place] who reported that she didn't refill her [...] Lopressor 50 mg BID, Follows Cardiology at [place]. Called [facility] pharmacy in [place] who reported that she didn't refill her [...] Lopressor 50 mg BID, Follows Cardiology at [place]. Called [facility] pharmacy in [place] who reported that she didn't refill her [...] Lopressor 50 mg BID, Follows Cardiology at [place]. Called [facility] pharmacy in [place] who reported that she didn't refill her [...] Lopressor 50 mg BID, Follows Cardiology at [place]. Called [facility] pharmacy in [place] who reported that she didn't refill her [...] Lopressor 50 mg BID, Follows Cardiology at [place]. Called [facility] pharmacy in [place] who reported that she didn't refill her Eliquis in March 2024. Patient noted to be irregular, irregular on exam. - Hold home Eliquis and Amio due to acute liver failure. - Lopressor 50 mg BID Assessment & Plan (2024 2:30 PM EDT): Home med: Eliquis 2.5 mg BID, Amio 200 mg daily, Follows Cardiology at [place]. Called [facility] pharmacy in [place] who reported that she didn't refill her Eliquis in March 2024. Patient noted to be irregular, irregular on exam. - Hold home Eliquis - Lopressor 50 mg BID Assessment & Plan (08/12/2024 7:50 PM EDT): Home med: Eliquis 2.5 mg BID, Amio 200 mg daily, Follows Cardiology at [place]. Called [facility] pharmacy in [place] who reported that she didn't refill her Eliquis in March 2024. Patient noted to be irregular, irregular on exam. - Hold home Eliquis - Lopressor 50 mg BID Assessment & Plan (08/11/2024 6:29 PM EDT): Home med: Eliquis 2.5 mg BID, Amio 200 mg daily, Follows Cardiology at [place]. Called [facility] pharmacy in [place] who reported that she didn't refill her Eliquis in March 2024. Patient noted to be irregular, irregular on exam. - Hold home Eliquis - Lopressor 50 mg BID Assessment & Plan (08/10/2024 6:12 PM EDT): Home med: Eliquis 2.5 mg BID, Amio 200 mg daily, Follows Cardiology at [place]. Called [facility] pharmacy in [place] who reported that she didn't refill her Eliquis in March 2024. Patient noted to be irregular, irregular on exam. - Hold home Eliquis - Lopressor 25 mg BID Assessment & Plan (08/09/2024 5:57 PM EDT): History of afib, reportedly on Eliquis. Follows Cardiology at [place]. Called [facility] pharmacy in [place] who reported that she didn't refill her [...] dribbles out. She follows with urology at [place]. She has required straight caths before, and [...] dribbles out. She follows with urology at [place]. She has required straight caths before, and [...] dribbles out. She follows with urology at [place]. She has required straight caths before, and [...] dribbles out. She follows with urology at [place]. She has required straight caths before, and [...] Furosemide 20 mg PO every day Follows corporate counsel at [place] (Dr. 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 By report, Echocardiogram was [...] Furosemide 20 mg PO every day Follows corporate counsel at [place] (Dr. Tear Lizama). By report, Echocardiogram was [...] Furosemide 20 mg PO every day Follows corporate counsel at [place] (Dr. 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 By report, Echocardiogram was [...] Furosemide 20 mg PO every day Follows corporate counsel at [place] (Dr. 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 By report, Echocardiogram was [...] Furosemide 20 mg PO every day Follows corporate counsel at [place] (Dr. 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 By report, Echocardiogram was [...] Furosemide 20 mg PO every day Follows corporate counsel at [place] (Dr. 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 By report, Echocardiogram was [...] Furosemide 20 mg PO every day Follows corporate counsel at [place] (Dr. 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 By report, Echocardiogram was [...] Furosemide 20 mg PO every day Follows corporate counsel at [place] (Dr. Tera Lizama) Patient with a history of HFrEF, unknown last EF, presenting for several days of worsening orthopnea. New oxygen requirement on 2L NC, CXR showed pulmonary edema but clinically doesn't appear volume overload. Pro-BNP 64,308. Unable to obtain prior TTE result from [place]. Trop elevated to 34, likely demand ischemia [...] 08/11/2024 progress note for cardiology notes from [place]. - Hold home lasix dose - Lopressor [...] Furosemide 20 mg PO every day Follows corporate counsel at [place] (Dr. Tera Lizama) Patient with a history of HFrEF, unknown last EF, presenting for several days of worsening orthopnea. New oxygen requirement on 2L NC, CXR showed pulmonary edema but clinically doesn't appear volume overload. Pro-BNP 64,308. Unable to obtain prior TTE result from [place]. Trop elevated to 34, likely demand ischemia [...] 08/11/2024 progress note for cardiology notes from [place]. - Hold home lasix dose - Continue [...] Furosemide 20 mg PO every day Follows corporate counsel at [place] (Dr. Tera Lizama) Patient with a history of HFrEF, unknown last EF, presenting for several days of worsening orthopnea. New oxygen requirement on 2L NC, CXR showed pulmonary edema but clinically doesn't appear volume overload. Pro-BNP 64,308. Unable to obtain prior TTE result from [place]. Trop elevated to 34, likely demand ischemia [...] 08/11/2024 progress note for cardiology notes from [place]. - Hold home lasix - Continue Lopressor [...] Furosemide 20 mg PO every day Follows corporate counsel at [place] (Dr. Tera Lizama) Patient with a history of HFrEF, unknown last EF, presenting for several days of worsening orthopnea. New oxygen requirement on 2L NC, CXR showed pulmonary edema but clinically doesn't appear volume overload. Pro-BNP 64,308. Unable to obtain prior TTE result from [place]. Trop elevated to 34, likely demand ischemia [...] for further details for cardiology notes from [place]. - Hold home lasix - Increase Lopressor [...] Furosemide 20 mg PO every day Follows corporate counsel at [place]. Patient with a history of HFrEF, unknown last EF, presenting for several days of worsening orthopnea. New oxygen requirement on 2L NC, CXR showed pulmonary edema but clinically doesn't appear volume overload. Pro-BNP 64,308. Unable to obtain prior TTE result from [place]. Trop elevated to 34, likely demand ischemia [...] Unable to obtain prior TTE result from [place]. Trop elevated to 34, likely demand ischemia [...] on admission. Per request from lab at [place], patient's most recent creatinines are elevated to 2.54-2.96. Patient has a history of CKD and was previously following with Dr. Garber at [facility], however, last appointment available in PSYCHIATRIC is from 04/24/2023. Renal following. Likely ATN [...] on admission. Per request from lab at [place], patient's most recent creatinines are elevated to 2.54-2.96. Patient has a history of CKD and was previously following with Dr. Garber at [facility], however, last appointment available in PSYCHIATRIC is from 04/24/2023. Renal following. Likely ATN in setting of shock on presentation. Improving. Nephro consulted, appreciate recs: - Daily BMP - Ordered CPK to rule out rhabdo - 1.5L fluid restriction Assessment & Plan (08/18/2024 3:41 PM EDT): Cr elevated to 3.38 with an eGFR of 14 on admission. Per request from lab at [place], patient's most recent creatinines are elevated to 2.54-2.96. Patient has a history of CKD and was previously following with Dr. Garber at [facility], however, last appointment available in PSYCHIATRIC is from 04/24/2023. Renal following. Likely ATN in setting of shock on presentation. Improving. Nephro consulted, appreciate recs: - Daily BMP - Ordered CPK to rule out rhabdo - 1.5L fluid restriction Assessment & Plan (08/17/2024 2:57 PM EDT): Cr elevated to 3.38 with an eGFR of 14 on admission. Per request from lab at [place], patient's most recent creatinines are elevated to 2.54-2.96. Patient has a history of CKD and was previously following with Dr. Garber at [facility], however, last appointment available in EPIC is from 04/24/2023. Renal following. Likely ATN in setting of shock on presentation. Improving. Nephro consulted, appreciate recs: - Daily BMP - Ordered CPK to rule out rhabdo - 1.5L fluid restriction Assessment & Plan (08/16/2024 1:31 PM EDT): Cr elevated to 3.38 with an eGFR of 14 on admission. Per request from lab at [place], patient's most recent creatinines are elevated to 2.54-2.96. Patient has a history of CKD and was previously following with Dr. Garber at [facility], however, last appointment available in PSYCHIATRIC is from 04/24/2023. Renal following. Likely ATN in setting of shock on presentation. Improving. Nephro consulted, appreciate recs: - Daily BMP - Ordered CPK to rule out rhabdo - 1.5L fluid restriction Assessment & Plan (08/15/2024 2:33 PM EDT): Cr elevated to 3.38 with an eGFR of 14 on admission. Per request from lab at [place], patient's most recent creatinines are elevated to 2.54-2.96. Patient has a history of CKD and was previously following with Dr. Garber at [facility], however, last appointment available in PSYCHIATRIC is from 04/24/2023. Renal following. Likely ATN in setting of shock on presentation. Improving. - Daily BMP Assessment & Plan (08/15/2024 12:34 PM EDT): Cr elevated to 3.38 with an eGFR of 14 on admission. Per request from lab at [place], patient's most recent creatinines are elevated to 2.54-2.96. Patient has a history of CKD and was previously following with Dr. Garber at [facility], however, last appointment available in EPIC is from 04/24/2023. Renal following. Likely ATN in setting of shock on presentation. Improving. - Daily BMP Assessment & Plan (08/14/2024 8:36 PM EDT): Cr elevated to 3.38 with an eGFR of 14 on admission. Per request from lab at [place], patient's most recent creatinines are elevated to 2.54-2.96. Patient has a history of CKD and was previously following with Dr. Garber at [facility], however, last appointment available in EPIC is from 04/24/2023. Renal following. Likely ATN in setting of shock on presentation Assessment & Plan (2024 2:30 PM EDT): Cr elevated to 3.38 with an eGFR of 14 on admission. Per request from lab at [place], patient's most recent creatinines are elevated to 2.54-2.96. Patient has a history of CKD and was previously following with Dr. Garber at [facility], however, last appointment available in PSYCHIATRIC is from 04/24/2023. Renal following. - Patient will require close monitoring as well especially in the setting of hypothermia and septic shock on admission causing ischemic liver injury and worsening SUSAN. - Evidence of secondary hyperparathyroidism, renal is following Assessment & Plan (08/12/2024 7:50 PM EDT): Cr elevated to 3.38 with an eGFR of 14 on admission. Per request from lab at [place], patient's most recent creatinines are elevated to 2.54-2.96. Patient has a history of CKD and was previously following with Dr. Garber at [facility], however, last appointment available in PSYCHIATRIC is from 04/24/2023. Renal following. - Patient [...] on admission. Per request from lab at [place], patient's most recent creatinines are elevated to 2.54-2.96. Patient has a history of CKD and was previously following with Dr. Garber at [facility], however, last appointment available in PSYCHIATRIC is from 04/24/2023. Renal following. - Patient [...] on admission. Per request from lab at [place], patient's most recent creatinines are elevated to 2.54-2.96. Patient has a history of CKD and was previously following with Dr. Garber at [facility], however, last appointment available in PSYCHIATRIC is from 04/24/2023. Renal following. - Patient will require close monitoring as well especially in the setting of hypothermia and septic shock on admission causing ischemic liver injury and worsening SUSAN. - Strict I/O Assessment & Plan (08/09/2024 5:57 PM EDT): Cr elevated to 3.38 with an eGFR of 14 on admission. Per request from lab at [place], patient's most recent creatinines are elevated to 2.54-2.96. Patient has a history of CKD and was previously following with Dr. Garber at [facility], however, last appointment available in PSYCHIATRIC is from 04/24/2023. - Nephro following: CK [...] Years Used Date Smoking Tobacco: Never Assessed [facility] Utilities Answer Date Recorded In the past 12 months has [employer], [employer], oil, or water [employer] threatened to shut off services in your [...] complete this topic Procedures * Due to [facility] law, this organization might not be [...] to Health Maintenance Results * Due to [place] [employer] law, this organization might not be sharing negative HIV tests. * (ABNORMAL) CBC Auto Differential (08/20/2024 6:44 AM EDT) WBC 6.2 3.8 - 10.8 10*3/uL 08/20/2024 7:40 AM EDT [facility] RBC 3.24(L) 3.80 - 5.10 10*6/uL 08/20/2024 7:40 AM EDT [facility] Hemoglobin 7.7(L) 11.7 - 15.5 g/dL 08/20/2024 7:40 AM EDT [facility] Hematocrit 26.1(L) 35.0 - 45.0 % 08/20/2024 7:40 AM EDT [facility] MCV 80.6 80.0 - 100.0 fL 08/20/2024 7:40 AM EDT [facility] MCH 23.8(L) 27.0 - 33.0 pg 08/20/2024 7:40 AM EDT [facility] MCHC 29.5(L) 32.0 - 36.0 g/dL 08/20/2024 7:40 AM EDT [facility] RDW 16.9(H) 11.0 - 15.0 % 08/20/2024 7:40 AM EDT [facility] Platelets 196 140 - 400 10*3/uL 08/20/2024 7:40 AM EDT [facility] MPV 10.9 7.5 - 12.5 fL 08/20/2024 7:40 AM EDT [facility] Neutrophil % 65.4 % 08/20/2024 7:40 AM EDT [facility] Immature Grans % 0.5 0.0 - 0.9 % 08/20/2024 7:40 AM EDT [facility] Lymphocyte % 20.8 % 08/20/2024 7:40 AM EDT [facility] Monocyte % 10.2 % 08/20/2024 7:40 AM EDT [facility] Eosinophil % 2.4 % 08/20/2024 7:40 AM EDT [facility] Basophil % 0.7 % 08/20/2024 7:40 AM EDT [facility] Neutrophil # 4.02 1.50 - 7.80 10*3/uL 08/20/2024 7:40 AM EDT [facility] Immature Grans # 0.03 <=0.03 10*3/uL 08/20/2024 7:40 AM EDT [facility] Lymphocyte # 1.30 0.85 - 3.90 10*3/uL 08/20/2024 7:40 AM EDT [facility] Monocyte # 0.60 0.20 - 0.95 10*3/uL 08/20/2024 7:40 AM EDT [facility] Eosinophil # 0.20 0.02 - 0.50 10*3/uL 08/20/2024 7:40 AM EDT [facility] Basophil # <0.03 0.00 - 0.20 10*3/uL 08/20/2024 7:40 AM EDT [facility] nRBC % 0.0 /100 WBCs 08/20/2024 7:40 AM EDT [facility] nRBC # <0.01 <0.01 10*3/uL 08/20/2024 7:40 AM EDT [facility] Blood Structure of peripheral vein / Unknown Venipuncture / Unknown 08/20/2024 6:44 AM EDT 08/20/2024 7:26 AM EDT us Jared Bell MD PhD LAB BLOOD ORDERABLES Final Resu lt [facility] [address] [place] [address], * (ABNORMAL) Basic Metabolic Panel (08/20/2024 6:44 AM EDT) NA 144 135 - 145 mmol/L 08/20/2024 8:21 AM EDT [facility] K 4.7 3.5 - 5.3 mmol/L 08/20/2024 8:21 AM EDT [facility] Cl 111(H) 98 - 107 mmol/L 08/20/2024 8:21 AM EDT [facility] CO2 23 22 - 32 mmol/L 08/20/2024 8:21 AM EDT [facility] BUN 42(H) 7 - 23 mg/dL 08/20/2024 8:21 AM EDT [facility] Creatinine 2.36(H) 0.50 - 1.20 mg/dL 08/20/2024 8:21 AM EDT [facility] Glucose 86 65 - 99 mg/dL 08/20/2024 8:21 AM EDT [facility] [employer] [facility] Calcium 9.1 8.6 - 10.5 mg/dL 08/20/2024 8:21 AM EDT [facility] Anion Gap 10 5 - 15 08/20/2024 8:21 AM EDT [facility] [employer] [facility] eGFR 22(L) >=60 mL/min/1 .73m2 08/20/2024 8:21 AM EDT [facility] Comment:The estimated glomer ular [...] BLOOD ORDERABLES Final Resu lt [facility] [address] [place] [address], * (ABNORMAL) PTH, Intact and Calcium (08/12/2024 6:51 AM EDT) Parathyroid Hormone, Intact 203(H) 16 - 77 pg/mL 2024 4:01 AM EDT [employer] Comment: Interpretive Guide Intact PTH Calcium ------- Normal Parathyroid Normal Normal Hypoparathyroidism Low or Low Normal Low Hyperparathyroidism Primary Normal or High High Secondary High Normal or Low Tertiary High High Non-Parathyroid Hypercalcemia Low or Low Normal High Calcium 8.2(L) 8.6 - 10.4 mg/dL 2024 4:01 AM EDT [facility] Blood Structure of peripheral vein / Unknown Venipuncture / Unknown 08/12/2024 6:51 AM EDT 08/12/2024 7:38 AM EDT [facility] 2024 4:01 AM EDT [facility] Received Date: Brigitte Duke MD LAB BLOOD ORDERABLES Final Resul t Performing Organization Address City/[facility]/ZIP Co de Phone Number [facility] [address] [facility], [place] [address], [place] [phone] [employer] [facility] [address] [facility], [place] [address], [place] [phone] * Phosphorus (08/12/2024 6:51 AM EDT) Phosphorus 3.7 2.5 - 4.5 mg/dL 08/12/2024 9:17 AM EDT [facility] Blood Structure of peripheral vein / Unknown Venipuncture / Unknown 08/12/2024 6:51 AM EDT 08/12/2024 7:38 AM EDT Brigitte Duke MD LAB BLOOD ORDERABLES Final Resul t [facility] [address] [place] [address], [place] * Hepatitis Panel, Acute (08/09/2024 10:04 AM EDT) Hepatitis A IgM NON-REACT TRINH NON-REACT TRINH 08/09/2024 8:26 PM EDT [employer] [facility] Hepatitis B Surface Antigen NON-REACT TRINH NON-REACT TRINH 08/09/2024 8:26 PM EDT [employer] [facility] Hepatitis B Core Antibody NON-REACT TRINH NON-REACT TRINH 08/09/2024 8:26 PM EDT [employer] [facility] Hepatitis C Antibody NON-REACT TRINH NON-REACT TRINH 08/09/2024 8:26 PM EDT [employer] [facility] Comment: HCV antibody was non-reactive. There is no laboratory evidence of HCV infection. In most cases, no further action is required. However, if recent HCV exposure is suspected, a test for HCV RNA (test code 43168) is suggested. For additional information please refer to http://[employer]SourceMedical/faq/LAI31z9 (This link is being provided for informational/ educational purposes only.) For additional information, please refer to http://[employer]Medical/faq/TDL998 (This link is being provided for informational/ educational purposes only.) Blood Structure of peripheral vein / Unknown Venipuncture / Unknown 08/09/2024 10:04 AM EDT 08/09/2024 10:12 AM EDT Narrative [facility] - 08/09/2024 8:26 PM EDT [facility] Received Date: April Ann MD LAB BLOOD ORDERABLES Final Resul t [facility] [address], [place] [address], [place] [phone] [employer] [facility] [address] [facility] 3rd [address], [place] [address], from Last 3 Months or Most Recently Relevant to Health Maintenance Insurance [employer]ERAL MEDICARE Advance Directives Documents on File Type Date Recorded Patient [employer] 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
--- OUTSIDE RECORDS SUMMARY | 2025-07-06 16:03 | XMS_ITS | Encounter Summary ---
Author Organization [facility] Address [address] [place] [address] Care Team Providers Care Manager Report Name Role Phone Ashleigh Moreland MD Primary Care Provider [phone] Encounter Details Date Type Department Care Team (Late st Contact Info) Description 02/03/2025 Lab Requisition [facility] - Main Lab [address] [facility] [place] [address] Ashleigh Moreland MD [address] [place] [address] Essential (primary) hypertension; Urinary tract [...] Chronic kidney disease, unspecified Heart failure, unspecified ([facility] V24, [facility] V28) documented in this encounter Results * (ABNORMAL) Thyroid stimulating hormone (02/03/2025 6:28 AM EDT) TSH 8.84(H) 0.40 - 4.00 mcIU/mL LAB CHEMISTRY METHOD 02/03/2025 12:[address] [facility] Blood Venous blood specimen / Unknown Venipuncture / Unknown 02/03/2025 6:28 AM EDT 02/03/2025 10:35 AM EDT Ashleigh Moreland MD LAB BLOOD ORDERABLES Final Resul t [facility] [address] [place] [address], * (ABNORMAL) Comprehensive metabolic panel (02/03/2025 6:28 AM EDT) Pathologist [facility] Sodium 138 133 - 145 mmol/L LAB CHEMISTRY METHOD 02/03/2025 11:51 AM [facility] Potassium 3.9 3.5 - 5.5 mmol/L LAB CHEMISTRY METHOD 02/03/2025 11:51 AM [facility] Chloride 99 96 - 110 mmol/L LAB CHEMISTRY METHOD 02/03/2025 11:51 AM [facility] CO2 31 21 - 32 mmol/L LAB CHEMISTRY METHOD 02/03/2025 11:51 AM [facility] Anion Gap 8 3 - 11 LAB CHEMISTRY METHOD 02/03/2025 11:51 AM [facility] Glucose 78 70 - 100 mg/dL LAB CHEMISTRY METHOD 02/03/2025 11:51 AM [facility] BUN 21 5 - 25 mg/dL LAB CHEMISTRY METHOD 02/03/2025 11:51 AM [facility] Creatinine 2.22(H) 0.50 - 1.10 mg/dL LAB CHEMISTRY METHOD 02/03/2025 11:51 AM [facility] eGFR 23(L) >=60 mL/min/1. 73m2 LAB CHEMISTRY METHOD 02/03/2025 11:51 AM [facility] Comment:Calculation based on the Chronic Kidney Disease Epidemiology Collaboration (CKD-EPI) equation refit without adjustment for race. BUN/Creatinine Ratio 9.5 LAB CHEMISTRY METHOD 02/03/2025 11:51 AM [facility] Calcium 8.6 8.5 - 10.5 mg/dL LAB CHEMISTRY METHOD 02/03/2025 11:51 AM [facility] AST (SGOT) 14 10 - 42 unit/L LAB CHEMISTRY METHOD 02/03/2025 11:51 AM [facility] ALT (SGPT) 18 10 - 60 unit/L LAB CHEMISTRY METHOD 02/03/2025 11:51 AM [facility] Alkaline Phosphatase 120 42 - 121 unit/L LAB CHEMISTRY METHOD 02/03/2025 11:51 AM [facility] Total Protein 6.1 6.0 - 8.0 g/dL LAB CHEMISTRY METHOD 02/03/2025 11:51 AM [facility] Albumin 2.3(L) 3.2 - 5.0 g/dL LAB CHEMISTRY METHOD 02/03/2025 11:51 AM [facility] Total Bilirubin 0.4 0.0 - 1.4 mg/dL LAB CHEMISTRY METHOD 02/03/2025 11:51 AM [facility] Blood Venous blood specimen / Unknown Venipuncture / Unknown 02/03/2025 6:28 AM EDT 02/03/2025 10:35 AM EDT Ashleigh Moreland MD LAB BLOOD ORDERABLES Final Resul t [facility] [address] [place] [address], * (ABNORMAL) Complete blood count (02/03/2025 6:28 AM EDT) WBC 8.4 4.8 - 10.8 K/mcL LAB HEMETOLOGY METHOD 02/03/2025 11:[address] [facility] RBC 4.50 3.80 - 4.80 M/mcL LAB HEMETOLOGY METHOD 02/03/2025 11:[address] [facility] Hemoglobin 10.7(L) 11.5 - 16.0 g/dL LAB HEMETOLOGY METHOD 02/03/2025 11:34 AM [facility] Hematocrit 34.8(L) 35.0 - 47.0 % LAB HEMETOLOGY METHOD 02/03/2025 11:34 AM [facility] MCV 77.0(L) 79.0 - 98.0 FL LAB HEMETOLOGY METHOD 02/03/2025 11:[address] [facility] MCH 23.7(L) 27.0 - 32.0 pcg LAB HEMETOLOGY METHOD 02/03/2025 11:34 AM [facility] MCHC 30.7(L) 32.0 - 37.0 g/dL LAB HEMETOLOGY METHOD [facility] R[facility] 17.3(H) 11.0 - 15.0 % LAB HEMETOLOGY METHOD 02/03/2025 11:[address] [facility] Platelets 374 130 - 400 K/mcL LAB HEMETOLOGY METHOD 02/03/2025 11:34 AM [facility] MPV 9.7 7.0 - 11.0 FL LAB HEMETOLOGY METHOD 02/03/2025 11:[address] [facility] NRBC 0.0 <1.0 % LAB HEMETOLOGY METHOD 02/03/2025 11:[address] [facility] NRBC Absolute 0.00 <0.10 K/mcL LAB HEMETOLOGY METHOD 02/03/2025 11:[address] [facility] Blood Venous blood specimen / Unknown Venipuncture / Unknown 02/03/2025 6:28 AM EDT 02/03/2025 10:35 AM EDT us Ashleigh Moreland MD LAB BLOOD ORDERABLES Final Resul t [facility] [address] [place] [address], documented in this encounter Visit Diagnoses Diagnosis Essential (primary) hypertension Unspecified essential hypertension Urinary tract infection, site not specified Chronic kidney disease, unspecified Heart failure, unspecified (CMS/HCC V24, CMS/HCC V28) Heart failure, unspecified documented in this encounter Care Teams Manager Report Relationship Specialty Start Date End Date Ashleigh Moreland MD [address] [place] [address] PCP - General Hospitalist Medicine 02/03/25 documented as of this encounter
== END 2025-07-06 14:00 | disposition home or self-care (01) ==
LOC: HO.HCS 13:04
PROVIDERS: PCP Internal Medicine
DX: I48.0 Paroxysmal atrial fibrillation (principal); I50.9 Heart failure, unspecified; I42.8 Other cardiomyopathies; Z98.890 Other specified postprocedural states; I25.10 Atherosclerotic heart disease of native coronary artery without angina pectoris; I10 Essential (primary) hypertension
CPT/HCPCS: 93010; 99214; G2211

== ENCOUNTER → 2025-07-06 13:03 | Outpatient (BNVA) | payer MEDICARE, BC, SELFPAY | PROVIDERS: PCP Internal Medicine | DX: I48.0 Paroxysmal atrial fibrillation (principal); I50.9 Heart failure, unspecified; I42.8 Other cardiomyopathies; I25.10 Atherosclerotic heart disease of native coronary artery without angina pectoris; I10 Essential (primary) hypertension; E78.5 Hyperlipidemia, unspecified | CPT/HCPCS: 93005; 99212 ==